=== PATIENT | female | born 1965 | race African-American/Black ===

== ENCOUNTER 2016-08-19 17:04 | Inpatient (IN) | payer OTHER ==
[2016-08-19] MEDS ORDERED: SODIUM CHLORIDE 0.9% 1,000 ML IV STA (18:19)
[2016-08-19] MEDS ORDERED: ACETAMINOPHEN IV (For NPO) 1,000 MG in EMPTY BAG 1 BAG IVPB STA (18:20)
[2016-08-19] MEDS ORDERED: SODIUM CHLORIDE 0.9% 1,000 ML IV ONE (18:35)
--- NOTE | 2016-08-19 18:35 | ED ---
General Adult HPI - General Source: patient, RN notes reviewed Mode of arrival: wheelchair Limitations: no limitations <Vicki Sultana - Last Filed: 08/19/16 18:24> <Pipe Dewey - Last Filed: 08/19/16 21:47> - General Chief complaint: Headache Stated complaint: SOB, headache Time Seen by Provider: 08/19/16 17:29 - History of Present Illness Initial comments: Patient is a 50-year-old female presents emergency room for evaluation of multiple complaints. Patient has a history of MS, COPD, fibromyalgia, arthritis. Patient states Thursday she's been experiencing headaches, nausea and chest pain. Patient states she first thought it was her sinuses show she's been taking Benadryl. Patient states symptoms not improving. Patient states he usually has headaches but this headache is much worse than usual. Patient states headache radiates down her neck. Patient states that she is experiencing ringing in ears. Patient also states pain experiencing dizziness every time she stands up too fast or bends forward. Patient denies any changes in vision or changes in hearing. Patient also states been having midsternal chest pressure. Patient states this started on Thursday as well. Patient states she's had a slight on and off cough for the past few days. Patient states is nonproductive. Patient also states she smokes about half pack per day. Patient also states she's been feeling weak all over. Patient states been having tingling in her lower legs. Patient states she had a fever yesterday. (Vicki Sultana) - Related Data Home Medications Medication Instructions Recorded Confirmed Albuterol Inhaler [Ventolin 2 puff INHALATION RT-Q6H PRN 02/20/14 08/19/16 Inhaler] Aspirin 81 mg PO DAILY 02/20/14 08/19/16 Cholecalciferol [Vitamin D3] 1,000 units PO DAILY 02/20/14 08/19/16 Fluticasone Propionate [Flonase] 2 spray EA NOSTRIL DAILY PRN 02/20/14 08/19/16 Hydrochlorothiazide 25 mg PO DAILY 02/20/14 08/19/16 LORazepam [Ativan] 1 mg PO TID PRN 02/20/14 08/19/16 Meclizine [Antivert] 25 mg PO TID PRN 02/20/14 08/19/16 Methocarbamol 500 mg PO TID PRN 02/20/14 08/19/16 Montelukast [Singulair] 10 mg PO HS 02/20/14 08/19/16 Multivit with Calcium,Iron,Min 1 tab PO DAILY 02/20/14 08/19/16 [Women's Daily Multivitamin] PARoxetine HCL [Paxil] 40 mg PO DAILY 02/20/14 08/19/16 Verapamil HCl 120 mg PO DAILY 02/20/14 08/19/16 oxyCODONE-APAP 10-325MG [Percocet 1 tab PO Q6HR PRN 02/20/14 08/19/16 10-325 mg] Beclomethasone Dipropionate [Qvar 2 puff INHALATION RT-BID 08/19/16 08/19/16 80 mcg] Butalb/APAP/Caff 50-325-40Mg 1 tab PO Q4H PRN 08/19/16 08/19/16 [Fioricet 50-325-40] Gabapentin [Neurontin] 1,200 mg PO TID 08/19/16 08/19/16 Ranitidine HCl [Zantac] 150 mg PO BID 08/19/16 08/19/16 Allergies Allergy/AdvReac Type Severity Reaction Status Date / Time penicillin G AdvReac Itching Verified 08/19/16 19:11 Review of Systems ROS Other: All systems not noted in ROS Statement are negative. <Vicki Sultana - Last Filed: 08/19/16 18:24> ROS Other: All systems not noted in ROS Statement are negative. <Pipe Dewey - Last Filed: 08/19/16 21:47> ROS Statement: Those systems with pertinent positive or pertinent negative responses have been documented in the HPI. Past Medical History Past Medical History: Asthma, Cancer, COPD, Fibromyalgia, GERD/Reflux, Hypertension, Osteoarthritis (OA), Syncope Additional Past Medical History / Comment(s): Rheumatic fever, heart murmur, osteoporosis, chronic bronchitis, MS History of Any Multi-Drug Resistant Organisms: None Reported Past Surgical History: Bladder Surgery, Hysterectomy Additional Past Surgical History / Comment(s): uterine cancer, radiation, Past Anesthesia/Blood Transfusion Reactions: No Reported Reaction Past Psychological History: Anxiety, Depression Smoking Status: Current every day smoker Past Alcohol Use History: None Reported Past Drug Use History: None Reported <Vicki Sultana - Last Filed: 08/19/16 18:24> General Exam Limitations: no limitations General appearance: alert, in no apparent distress Head exam: Present: atraumatic, normocephalic, normal inspection Eye exam: Present: normal appearance, PERRL, EOMI Pupils: Present: normal accommodation ENT exam: Present: normal exam, normal oropharynx, mucous membranes moist, TM's normal bilaterally, normal external ear exam Neck exam: Present: normal inspection, tenderness (Mid cervical spine), full ROM Respiratory exam: Present: wheezes. Absent: respiratory distress Cardiovascular Exam: Present: normal rhythm, tachycardia, normal heart sounds Extremities exam: Present: normal inspection Back exam: Present: normal inspection Neurological exam: Present: alert, oriented X3, CN II-XII intact Expanded Patient oriented to: Present: person, place, time Speech: Present: fluid speech Cranial nerves: EOM's Intact: Normal, Facial Sensation: Normal Sensory exam: Upper Extremity Light Touch: Normal, Lower Extremity Light Touch: Normal Motor strength exam: RUE: 5, LUE: 5, RLE: 5, LLE: 5 Psychiatric exam: Present: normal affect, normal mood Skin exam: Present: warm, dry, intact, normal color. Absent: rash <Vicki Sultana - Last Filed: 08/19/16 18:24> <Pipe Dewey - Last Filed: 08/19/16 21:47> - General Exam Comments Initial Comments: Sitting in exam room, no acute distress. (Vicki Sultana) Medical Decision Making <Vicki Sultana - Last Filed: 08/19/16 18:24> - Lab Data Result diagrams: 08/19/16 18:54 08/19/16 18:54 <Pipe Dewey - Last Filed: 08/19/16 21:47> - Medical Decision Making Medical decision-making. The patient's history of nausea vomiting for 3 days headache chest pain and shortness of breath.. The patient's labs show elevated d-dimer 2.83. White count is only 11.6 hemoglobin 15 hematocrit of 46. The patient's BUN is 11 creatinine 0.57 and GFR greater than 60. Her AST is elevated at 498 ALT elevated at 597. Troponin also mildly elevated at 0.09. Amylase lipase normal limits influenza AB-. The case discussed with Dr. richmond he wants the patient to have an ultrasound of the gallbladder and acute hepatitis panel run and admit the patient. (Pipe Dewey) - Lab Data Lab Results 08/19/16 08/19/16 08/19/16 Range/Units 18:40 18:54 18:54 WBC 11.6 H (3.8-10.6) k/uL RBC 4.82 (3.80-5.40) m/uL Hgb 15.1 (11.4-16.0) gm/dL Hct 46.8 H (34.0-46.0) % MCV 97.1 (80.0-100.0) fL MCH 31.4 (25.0-35.0) pg MCHC 32.3 (31.0-37.0) g/dL RDW 13.7 (11.5-15.5) % Plt Count 236 (150-450) k/uL Neutrophils % 68 % Lymphocytes % 23 % Monocytes % 5 % Eosinophils % 2 % Basophils % 1 % Neutrophils # 7.9 H (1.3-7.7) k/uL Lymphocytes # 2.7 (1.0-4.8) k/uL Monocytes # 0.6 (0-1.0) k/uL Eosinophils # 0.2 (0-0.7) k/uL Basophils # 0.1 (0-0.2) k/uL Hypochromasia Slight PT 12.2 H (9.0-12.0) sec INR 1.2 (<1.1) APTT 21.8 L (22.0-30.0) sec D-Dimer 2.83 H (<0.60) mg/L FEU Sodium (137-145) mmol/L Potassium (3.5-5.1) mmol/L Chloride (98-107) mmol/L Carbon Dioxide (22-30) mmol/L Anion Gap mmol/L BUN (7-17) mg/dL Creatinine (0.52-1.04) mg/dL Est GFR (MDRD) Af Amer (>60 ml/min/1.73 sqM) Est GFR (MDRD) Non-Af (>60 ml/min/1.73 sqM) Glucose (74-99) mg/dL Plasma Lactic Acid Adalid (0.7-2.0) mmol/L Calcium (8.4-10.2) mg/dL Magnesium (1.6-2.3) mg/dL Total Bilirubin (0.2-1.3) mg/dL AST (14-36) U/L ALT (9-52) U/L Alkaline Phosphatase (38-126) U/L Total Creatine Kinase (30-135) U/L CK-MB (CK-2) (0.0-2.4) ng/mL CK-MB (CK-2) Rel Index Troponin I (0.000-0.034) ng/mL Total Protein (6.3-8.2) g/dL Albumin (3.5-5.0) g/dL Amylase (30-110) U/L Lipase (23-300) U/L Influenza Type A RNA Not Detected (Not Detectd) Influenza Type B (PCR) Not Detected (Not Detectd) 08/19/16 08/19/16 08/19/16 Range/Units 18:54 18:54 18:54 WBC (3.8-10.6) k/uL RBC (3.80-5.40) m/uL Hgb (11.4-16.0) gm/dL Hct (34.0-46.0) % MCV (80.0-100.0) fL MCH (25.0-35.0) pg MCHC (31.0-37.0) g/dL RDW (11.5-15.5) % Plt Count (150-450) k/uL Neutrophils % % Lymphocytes % % Monocytes % % Eosinophils % % Basophils % % Neutrophils # (1.3-7.7) k/uL Lymphocytes # (1.0-4.8) k/uL Monocytes # (0-1.0) k/uL Eosinophils # (0-0.7) k/uL Basophils # (0-0.2) k/uL Hypochromasia PT (9.0-12.0) sec INR (<1.1) APTT (22.0-30.0) sec D-Dimer (<0.60) mg/L FEU Sodium 138 (137-145) mmol/L Potassium 3.3 L (3.5-5.1) mmol/L Chloride 89 L (98-107) mmol/L Carbon Dioxide 38 H (22-30) mmol/L Anion Gap 11 mmol/L BUN 11 (7-17) mg/dL Creatinine 0.57 (0.52-1.04) mg/dL Est GFR (MDRD) Af Amer >60 (>60 ml/min/1.73 sqM) Est GFR (MDRD) Non-Af >60 (>60 ml/min/1.73 sqM) Glucose 108 H (74-99) mg/dL Plasma Lactic Acid Adalid 1.4 (0.7-2.0) mmol/L Calcium 9.3 (8.4-10.2) mg/dL Magnesium 1.8 (1.6-2.3) mg/dL Total Bilirubin 1.0 (0.2-1.3) mg/dL AST 498 H (14-36) U/L ALT 593 H (9-52) U/L Alkaline Phosphatase 78 (38-126) U/L Total Creatine Kinase 91 (30-135) U/L CK-MB (CK-2) 0.4 (0.0-2.4) ng/mL CK-MB (CK-2) Rel Index 0.4 Troponin I 0.090 H* (0.000-0.034) ng/mL Total Protein 7.0 (6.3-8.2) g/dL Albumin 4.0 (3.5-5.0) g/dL Amylase 63 (30-110) U/L Lipase 84 (23-300) U/L Influenza Type A RNA (Not Detectd) Influenza Type B (PCR) (Not Detectd) Disposition <Vicki Sultana - Last Filed: 08/19/16 18:24> <Pipe Dewey - Last Filed: 08/19/16 21:47> Clinical Impression: Elevated troponin I level, Nausea and vomiting Disposition: ADMITTED IP TO THIS HOSP Condition: Stable
[2016-08-19 19:15] LABS: Basophils # (A) 0.1 k/uL (0-0.2); Basophils % (A) 1 %; CH 30.3; CHCM 31.3; Eosinophils # (A) 0.2 k/uL (0-0.7); Eosinophils % (A) 2 %; HCT 46.8 % (34.0-46.0); HDW 2.38; HGB 15.1 gm/dL (11.4-16.0); Hypochromasia Slight; Luc # (Auto) 0.19; Luc % (Auto) 2; Lymphocytes # (A) 2.7 k/uL (1.0-4.8); Lymphocytes % (A) 23 %; MCH 31.4 pg (25.0-35.0); MCHC 32.3 g/dL (31.0-37.0); MCV 97.1 fL (80.0-100.0); Mean Platelet Volume 8.2; Monocytes # (A) 0.6 k/uL (0-1.0); Monocytes % (A) 5 %; Neutrophils # (A) 7.9 k/uL (1.3-7.7); Neutrophils % (A) 68 %; RBC 4.82 m/uL (3.80-5.40); RDW 13.7 % (11.5-15.5); WBC 11.6 k/uL (3.8-10.6)
--- NOTE | 2016-08-19 19:19 | XR ---
EXAMINATION TYPE: XR chest 2V DATE OF EXAM: 08/19/2016 7:12 PM COMPARISON: 08/14/2013 HISTORY: Chest pain TECHNIQUE: Frontal and lateral views of the chest are obtained. FINDINGS: The heart is enlarged. There is mild pulmonary congestion. There are no hilar masses. Cost ophrenic angles are clear. Bony thorax is intact. IMPRESSION: Cardiomegaly with mild pulmonary congestion. Heart appears increased compared to old exa m. No pulmonary consolidation. There is no overt heart failure.
[2016-08-19 19:23] LABS: ALT 593 U/L (9-52); AST 498 U/L (14-36); Alkaline Phosphatase 78 U/L (38-126); Amylase 63 U/L (30-110); Anion Gap 11 mmol/L; Blood Urea Nitrogen 11 mg/dL (7-17); Calcium 9.3 mg/dL (8.4-10.2); Carbon Dioxide 38 mmol/L (22-30); Chloride 89 mmol/L (98-107); Glucose 108 mg/dL (74-99); Magnesium 1.8 mg/dL (1.6-2.3); Non-African American GFR(MDRD) >60 (>60 ml/min/1.73 sqM); Sodium 138 mmol/L (137-145)
[2016-08-19 19:25] LABS: Potassium 3.3 mmol/L (3.5-5.1)
[2016-08-19 19:32] LABS: INR 1.2 (<1.1); Partial Thromboplastin Time 21.8 sec (22.0-30.0); Prothrombin Time 12.2 sec (9.0-12.0)
[2016-08-19] MEDS ORDERED: BUTALB/APAP/CAFF 50-325-40MG TAB PO STA (19:38)
[2016-08-19 19:44] LABS: Creatine Kinase MB 0.4 ng/mL (0.0-2.4)
[2016-08-19] MEDS ORDERED: RX INFO: IV CONTRAST WAS GIVEN 1 EACH MISC MISCELLANE PRN (19:49)
[2016-08-19 19:50] LABS: Troponin I 0.09 ng/mL (0.000-0.034)
--- NOTE | 2016-08-19 20:31 | CT ---
EXAMINATION TYPE: CT brain kristina wo con DATE OF EXAM: 08/19/2016 8:25 PM COMPARISON: 06/01/2012 HISTORY: Headache with multiple falls in the past week CT DLP: 1848 mGycm Automated exposure control for dose reduction was used. TECHNIQUE: CT scan of the head and cervical spine are performed without contrast. FINDINGS: The ventricles and sulci appear normal. There is no mass effect nor midline shift. There is no sign of intracranial hemorrhage. The calvarium is intact. The cervical vertebra have fairly normal spacing and alignment. Skull base is intact. Posterior eleme nts are intact. Facet joints appear normal. There is mild anterior spurring at C5-6. There is no sign of a fracture. IMPRESSION: Negative CT scan of the brain. Mild spondylosis at C5-6. No fracture. Brain appears stable compared to old CT scan.
--- NOTE | 2016-08-19 20:37 | CT ---
EXAMINATION TYPE: CT angio chest DATE OF EXAM: 08/19/2016 8:26 PM COMPARISON: NONE HISTORY: Shortness of breath and elevated D-Dimer CT DLP: 658 mGycm Automated exposure control for dose reduction was used. CONTRAST: CTA scan of the thorax is performed with IV Contrast, patient injected with 100 mL of Omnipaque 350, pulmonary embolism protocol. There are 3-D post processed images.. FINDINGS: The lungs are clear of consolidation. There is mild subsegmental atelectasis at the right lung base. There is a 2 cm cyst in the left lobe of the liver. Heart is enlarged. There are no hilar masses. I s ee no filling defects in the pulmonary arteries. There is no pericardial effusion. There is no pleura l effusion. There is no mediastinal adenopathy. I see no bony destructive process. Bony thorax is int act. There is no sign of aortic aneurysm or dissection. IMPRESSION: NO EVIDENCE OF PULMONARY EMBOLISM. CARDIOMEGALY. MINIMAL SUBSEGMENTAL ATELECTASIS AT THE RIGHT LUNG B ASE.
[2016-08-19] MEDS ORDERED: IBUPROFEN 400 MG TAB PO PRN (21:47)
[2016-08-19] MEDS ORDERED: NALOXONE 0.4 MG/ML 1 ML VIAL IV PRN (21:47)
[2016-08-19] MEDS ORDERED: METHOCARBAMOL 500 MG TAB PO PRN (21:50)
[2016-08-19] MEDS ORDERED: MECLIZINE 25 MG TAB PO PRN (21:50)
[2016-08-19] MEDS ORDERED: FLUTICASONE 50MCG/SPRAY NASAL 16GM EA NOSTRIL PRN (21:50)
[2016-08-19 22:32] LABS: Hepatitis B Surface Ag Index 0.05
[2016-08-19 22:38] LABS: Hepatitis B Core IgM Index 0.03
--- NOTE | 2016-08-19 22:43 | US ---
EXAMINATION TYPE: US abdomen limited DATE OF EXAM: 08/19/2016 10:24 PM COMPARISON: NONE CLINICAL HISTORY: Elevated liver enzymes. EXAM MEASUREMENTS: Liver Length: 18.3 cm Gallbladder Wall: 0.2 cm CBD: 0.5 cm Right Kidney: 11.1 x 4.5 x 3.8 cm Pancreas: Obscured by bowel gas Liver: Difficult/limited visualization due to overlying bowel gas. Visualized portions appear hetero geneous. The liver in enlarged. There is a cystic area visualized in the left lobe measuring 1.7 x 1. 6 x 1.9 cm Gallbladder: wnl Evidence for sonographic Griffith's sign: No CBD: wnl as visualized, distal portion obscured by bowel gas Right Kidney: No hydronephrosis or masses seen IMPRESSION: No gallstones or dilated ducts. Small cyst in the left lobe of the liver.
[2016-08-19 22:50] LABS: Hepatitis C Virus IgG Index 0.02
[2016-08-19 22:52] LABS: Hepatitis C Virus IgG Ab Negative (Negative)
[2016-08-20] MEDS: SODIUM CHLORIDE 0.9% 1,000 ML IV SCH ×3 (00:51→21:00)
[2016-08-20] MEDS: GABAPENTIN 400 MG CAP PO SCH ×4 (00:51→20:59)
[2016-08-20] MEDS: LORazepam 1 MG TAB PO PRN ×2 (01:25→11:45)
[2016-08-20 02:24] LABS: Creatine Kinase MB 0.4 ng/mL (0.0-2.4)
[2016-08-20 02:28] LABS: Troponin I 0.09 ng/mL (0.000-0.034)
[2016-08-20] MEDS: ALBUTEROL NEBULIZED 2.5 MG/3 ML INHALATION PRN (07:25)
[2016-08-20] MEDS: BUDESONIDE 1 MG/2 ML NEBU INHALATION SCH ×2 (07:25→20:52)
[2016-08-20] MEDS ORDERED: BECLOMETHASONE DIP 80 MCG/PUFF INHALER INHALATION SCH (08:00)
[2016-08-20] MEDS: HYDROCHLOROTHIAZIDE 25 MG TAB PO SCH (08:21)
[2016-08-20] MEDS: ASPIRIN 81 MG CHEW PO SCH (08:21)
[2016-08-20] MEDS: PANTOPRAZOLE 40 MG/10 ML VIAL IV SCH (08:21)
[2016-08-20] MEDS: VERAPAMIL SR 120 MG TABLET.ER PO SCH (08:21)
[2016-08-20] MEDS: PARoxetine 20 MG TAB PO SCH (08:21)
[2016-08-20 08:29] LABS: Creatine Kinase MB 0.4 ng/mL (0.0-2.4)
[2016-08-20 08:32] LABS: Troponin I 0.092 ng/mL (0.000-0.034)
[2016-08-20] MEDS: oxyCODONE-APAP 10-325MG 1 EACH TAB PO PRN (08:52)
[2016-08-20 08:55] LABS: ALT 530 U/L (9-52); AST 301 U/L (14-36); Alkaline Phosphatase 84 U/L (38-126); Anion Gap 11 mmol/L; Blood Urea Nitrogen 8 mg/dL (7-17); Calcium 8.7 mg/dL (8.4-10.2); Carbon Dioxide 36 mmol/L (22-30); Chloride 96 mmol/L (98-107); Glucose 104 mg/dL (74-99); Non-African American GFR(MDRD) >60 (>60 ml/min/1.73 sqM); Sodium 143 mmol/L (137-145); Total Protein 7.2 g/dL (6.3-8.2)
[2016-08-20 08:57] LABS: Potassium 3.3 mmol/L (3.5-5.1)
[2016-08-20] MEDS ORDERED: POTASSIUM CHLORIDE ER 20 MEQ TAB.ER PO STA (11:34)
[2016-08-20] MEDS: BUTALB/APAP/CAFF 50-325-40MG TAB PO PRN ×2 (11:46→21:51)
--- NOTE | 2016-08-20 13:08 | P.HPIM ---
History of Present Illness H&P Date: 08/20/16 Chief Complaint: Chest pain, headache, neck pain This is a 50-year-old -[place] female patient of Dr. Tabares with past medical history of asthma, uterine cancer status post hysterectomy and radiation , fibromyalgia, COPD, gastroesophageal reflux disease, hypertension, osteoarthritis and osteoporosis, MS currently on Copaxone and under the care of Dr. Tyler Chi for which she has an appointment on . Patient states that she had chest pain, headache dizziness and neck pain and has had 2 recent falls at home 1-1/2 days apart. Her balance has been off and she is unable to get up. Headache goes around front and around to the back of her head. She does have history of vertigo as well. She denies history of diabetes. She came into [facility] emergency center and underwent chest x-ray that showed cardiomegaly with mild pulmonary congestion. No consolidation. No overt heart failure. D-dimer was elevated at 2.83 and CTA of the chest showed no evidence of pulmonary embolism. Cardiomegaly. Minimal subsegmental atelectasis at the right lung base. CAT scan of the brain and C-spine showed a negative CAT scan of the brain and mild spondylosis of C5-6. No fracture. Liver enzymes were elevated with AST of 498 and ALT of 593. Acute hepatitis panel was negative. Abdominal ultrasound showed no gallstones or dilated ducts. Small cyst in the left lobe of the liver. Influenza testing a and B were negative. She had mild elevation of her troponins which were 0.090, 0.090 and 0.092. Patient was to be admitted to the selective care unit and consult with cardiology. We have added and consult with her neurologist due to concern for falls and worsening MS as well as headaches. Review of Systems All systems: negative Constitutional: Reports weakness, Denies chills, Denies fever Eyes: denies blurred vision, denies pain Ears: bilateral: tinnitus Ears, nose, mouth and throat: Reports headache, Reports vertigo, Denies sore throat Cardiovascular: Reports chest pain, Denies leg edema, Denies shortness of breath Respiratory: Denies cough, Denies cough with sputum, Denies dyspnea Gastrointestinal: Denies abdominal pain, Denies diarrhea, Denies nausea, Denies vomiting Genitourinary: Denies dysuria, Denies hematuria Musculoskeletal: Reports frequent falls, Reports gait dysfunction, Reports muscle weakness, Denies myalgias Integumentary: Denies pruritus, Denies rash Neurological: Denies numbness, Denies weakness Psychiatric: Denies anxiety, Denies depression Endocrine: Denies fatigue, Denies weight change Past Medical History Past Medical History: Asthma, Cancer, COPD, Fibromyalgia, GERD/Reflux, Hypertension, Osteoarthritis (OA), Syncope Additional Past Medical History / Comment(s): Rheumatic fever, heart murmur, osteoporosis, chronic bronchitis, MS History of Any Multi-Drug Resistant Organisms: None Reported Past Surgical History: Bladder Surgery, Hysterectomy Additional Past Surgical History / Comment(s): uterine cancer, radiation, Past Anesthesia/Blood Transfusion Reactions: No Reported Reaction Past Psychological History: Anxiety, Depression Smoking Status: Current every day smoker Past Alcohol Use History: None Reported Additional Past Alcohol Use History / Comment(s): Patient is a smoker of one half pack per day for 20 years. She denies any medical marijuana, marijuana, street drug or alcohol use. She lives alone in a girlfriend helps her. She is . Past Drug Use History: None Reported - Past Family History Mother Family Medical History: CVA/TIA, Myocardial Infarction (OR) Additional Family Medical History / Comment(s): Mother is alive at age 72 with history of brain aneurysm, 3 strokes and 2 myocardial infarctions. Father Additional Family Medical History / Comment(s): Father at age 72 from a cardiac arrest thought to be due to a myocardial infarction. Sister(s) Additional Family Medical History / Comment(s): Patient has 2 sisters with no major medical problems. Patient does not have any brothers. Patient has 2 children ages 33 and 26 with no major medical problems. Medications and Allergies Home Medications Medication Instructions Recorded Confirmed Type Albuterol Inhaler [Ventolin 2 puff INHALATION RT-Q6H PRN 02/20/14 08/19/16 History Inhaler] Aspirin 81 mg PO DAILY 02/20/14 08/19/16 History Cholecalciferol [Vitamin D3] 1,000 units PO DAILY 02/20/14 08/19/16 History Fluticasone Propionate [Flonase] 2 spray EA NOSTRIL DAILY PRN 02/20/14 08/19/16 History Hydrochlorothiazide 25 mg PO DAILY 02/20/14 08/19/16 History LORazepam [Ativan] 1 mg PO TID PRN 02/20/14 08/19/16 History Meclizine [Antivert] 25 mg PO TID PRN 02/20/14 08/19/16 History Methocarbamol 500 mg PO TID PRN 02/20/14 08/19/16 History Montelukast [Singulair] 10 mg PO HS 02/20/14 08/19/16 History Multivit with Calcium,Iron,Min 1 tab PO DAILY 02/20/14 08/19/16 History [Women's Daily Multivitamin] PARoxetine HCL [Paxil] 40 mg PO DAILY 02/20/14 08/19/16 History Verapamil HCl 120 mg PO DAILY 02/20/14 08/19/16 History oxyCODONE-APAP 10-325MG [Percocet 1 tab PO Q6HR PRN 02/20/14 08/19/16 History 10-325 mg] Beclomethasone Dipropionate [Qvar 2 puff INHALATION RT-BID 08/19/16 08/19/16 History 80 mcg] Butalb/APAP/Caff 50-325-40Mg 1 tab PO Q4H PRN 08/19/16 08/19/16 History [Fioricet 50-325-40] Gabapentin [Neurontin] 1,200 mg PO TID 08/19/16 08/19/16 History Ranitidine HCl [Zantac] 150 mg PO BID 08/19/16 08/19/16 History Glatiramer Acetate [Copaxone] 20 mg SQ DAILY 08/20/16 08/20/16 History Allergies Allergy/AdvReac Type Severity Reaction Status Date / Time penicillin G AdvReac Itching Verified 08/19/16 19:11 Physical Exam Vitals: Vital Signs Temp Pulse Pulse Resp BP BP Pulse Ox 08/20/16 12:00 90 08/20/16 11:50 98.4 F 80 16 108/58 98 08/20/16 08:00 100.1 F H 109 H 18 128/65 95 08/20/16 07:42 69 08/20/16 07:26 74 08/20/16 05:31 98.1 F 77 18 121/87 98 08/20/16 03:17 98.1 F 94 18 114/69 100 08/20/16 02:49 97.1 F L 80 18 112/72 94 L 08/20/16 00:33 98.1 F 76 18 111/75 96 08/19/16 22:35 98.1 F 74 76 18 114/70 110/76 96 Intake and Output 08/19/16 08/20/16 08/20/16 22:59 06:59 14:59 Intake Total 1000 237 Balance 1000 237 Intake: IV 1000 Sodium Chloride 0.9% 1, 1000 000 ml @ 999 mls/hr IV . Q1H1M ONE Rx#:[id number] Oral 237 Other: Weight 99.79 kg Gen: This is a 50-year-old -[place] female. She is found in the ER on a stretcher and appears to be in no acute distress. HEENT: Head is atraumatic, normocephalic. Pupils equal, round. Sclerae is anicteric. NECK: Supple. No JVD. No lymphadenopathy. No thyromegaly. LUNGS: Scattered wheezes. No intercostal retractions. HEART: Regular rate and rhythm. No murmur. ABDOMEN: Soft. Bowel sounds are present. No masses. No tenderness. EXTREMITIES: No pedal edema. No calf tenderness. NEUROLOGICAL: Patient is awake, alert and oriented x3. Cranial nerves 2 through 12 are grossly intact. Results CBC & Chem 7: 08/19/16 18:54 08/20/16 06:52 Labs: Abnormal Lab Results - Last 24 Hours (Table) 08/20/16 08/20/16 08/20/16 Range/Units 01:25 06:52 06:52 Potassium 3.3 L (3.5-5.1) mmol/L Chloride 96 L (98-107) mmol/L Carbon Dioxide 36 H (22-30) mmol/L Glucose 104 H (74-99) mg/dL AST 301 H (14-36) U/L ALT 530 H (9-52) U/L Troponin I 0.090 H* 0.092 H* (0.000-0.034) ng/mL Thrombosis Risk Factor Assmnt - DVT/VTE Prophylaxis DVT/VTE Prophylaxis: Pharmacologic Prophylaxis ordered - Choose All That Apply Any of the Below Risk Factors Present?: Yes Each Factor Represents 1 point: Age 41-60 years Other Risk Factors: No Thrombosis Risk Factor Assessment Total Risk Factor Score: 1 Thrombosis Risk Factor Assessment Level: Low Risk Assessment and Plan Plan: 1. Chest pain with mild elevation of troponins. Cardiology consult requested. Patient may require stress test. 2. Headache, neck pain, dizziness and tinnitus with frequent falls and difficulty with balance. Consult with Dr. Chi. Possibly related to worsening MS. PT and OT evaluations requested. 3. COPD. Continue albuterol nebulizer treatments every 6 hours as needed, Pulmicort 1 mg twice daily. 4. Mild persistent asthma. Continue albuterol nebulizer treatment every 6 hours, Pulmicort 1 mg twice daily, Flonase 2 sprays daily as needed, Singulair 10 mg at bedtime. 5. Hypertension. Continue verapamil 120 mg daily, hydrochlorothiazide 25 mg daily. 6. Multiple sclerosis. Patient is normally on Copaxone 20 mg subcu daily. Continue methocarbamol, Neurontin. Consult with Dr. Chi. 7. Gastroesophageal reflux disease. Patient is normally on Zantac. 8. Recurrent depression and generalized anxiety. Continue Paxil and Ativan. 9. Morbid obesity with BMI of 39. 10. DVT prophylaxis. Heparin subcu. 11. Gastrointestinal prophylaxis. Protonix. Patient will be admitted to the hospital for a minimum of 2 night stay. Discharge plan: PT and OT ordered. Impression and plan of care have been directed as dictated by the signing physician. Elaine Nguyen nurse practitioner acting as scribe for signing physician. Time with Patient: Greater than 30
[2016-08-20] MEDS: NICOTINE 14MG/24HR PATCH TRANSDERM SCH (17:33)
[2016-08-20] MEDS: CHOLECALCIFEROL 1,000 UNIT TAB PO SCH (17:33)
[2016-08-20] MEDS: MULTIVITAMINS, THERA 1 EACH TAB PO SCH (17:33)
[2016-08-20] MEDS: HEPARIN SODIUM,PORCINE 5,000 UNIT/ML 1 ML VIAL SQ SCH ×2 (17:37→22:56)
[2016-08-20] MEDS: MONTELUKAST 10 MG TAB PO SCH (20:59)
[2016-08-21 06:37] LABS: CH 29.4; HCT 44.1 % (34.0-46.0); HDW 2.27; HGB 13.8 gm/dL (11.4-16.0); Hypochromasia Moderate; MCH 30.7 pg (25.0-35.0); MCHC 31.2 g/dL (31.0-37.0); MCV 98.2 fL (80.0-100.0); Mean Platelet Volume 7.8; RBC 4.49 m/uL (3.80-5.40); WBC 8.9 k/uL (3.8-10.6)
[2016-08-21 07:03] LABS: ALT 329 U/L (9-52); AST 103 U/L (14-36); Alkaline Phosphatase 67 U/L (38-126); Anion Gap 8 mmol/L; Blood Urea Nitrogen 8 mg/dL (7-17); Calcium 9.1 mg/dL (8.4-10.2); Carbon Dioxide 30 mmol/L (22-30); Chloride 104 mmol/L (98-107); Glucose 97 mg/dL (74-99); Non-African American GFR(MDRD) >60 (>60 ml/min/1.73 sqM); Sodium 142 mmol/L (137-145); Total Bilirubin 0.9 mg/dL (0.2-1.3); Total Protein 5.7 g/dL (6.3-8.2)
[2016-08-21] MEDS: BUDESONIDE 1 MG/2 ML NEBU INHALATION SCH ×2 (08:15→19:59)
--- NOTE | 2016-08-21 12:09 | ECHOF ---
Referral Reason:abn trop MEASUREMENTS -------- HEIGHT: 160.0 cm WEIGHT: 103.0 kg BP: 113/68 RVIDd: 3.1 cm (< 3.3) IVSd: 1.0 cm (0.6 - 1.1) LVIDd: 4.2 cm (3.9 - 5.3) LVPWd: 1.0 cm (0.6 - 1.1) IVSs: 1.4 cm LVIDs: 3.3 cm LVPWs: 1.5 cm LA Diam: 3.6 cm (2.7 - 3.8) LAESV Index (A-L): 27.11 ml/m Ao Diam: 3.3 cm (2.0 - 3.7) AV Cusp: 1.5 cm (1.5 - 2.6) MV EXCURSION: 14.230 mm (> 18.000) MV EF SLOPE: 91 mm/s (70 - 150) EPSS: 0.8 cm MV E Vargas: 1.01 m/s MV DecT: 179 ms MV A Vargas: 1.01 m/s MV E/A Ratio: 1.00 RAP: 5.00 mmHg RVSP: 27.38 mmHg FINDINGS -------- Sinus rhythm. This was a technically difficult study with suboptimal views. The left ventricular size is normal. Left ventricular wall thickness is normal. Overall left ventricular systolic function is normal with, an EF between 55 - 60 %. The right ventricle is normal in size and function. Normal LA size by volume 22+/-6 ml/m2. The right atrium is normal in size. 1.5mg of Definity was utilized for enhancement of images The aortic valve was not well visualized. Mild mitral annular calcification present. There is trace to mild mitral regurgitation. Mild tricuspid regurgitation present. Right ventricular systolic pressure is normal at < 35 mmHg. The pulmonic valve was not well visualized. The aortic root size is normal. There is a trivial pericardial effusion present. CONCLUSIONS -------- 1. Sinus rhythm. 2. The aortic valve was not well visualized. 3. Mild mitral annular calcification present. 4. There is trace to mild mitral regurgitation. 5. Mild tricuspid regurgitation present. 6. Right ventricular systolic pressure is normal at < 35 mmHg. 7. The pulmonic valve was not well visualized. 8. The aortic root size is normal. 9. There is a trivial pericardial effusion present. 10. This was a technically difficult study with suboptimal views. 11. The left ventricular size is normal. 12. Left ventricular wall thickness is normal. 13. Overall left ventricular systolic function is normal with, an EF between 55 - 60 %. 14. The right ventricle is normal in size and function. 15. Normal LA size by volume 22+/-6 ml/m2. 16. The right atrium is normal in size. 17. 1.5mg of Definity was utilized for enhancement of images GARBAGE PICK UP WORKER: Lizeth Romo RDCS
--- NOTE | 2016-08-21 12:16 | P.CRDCN ---
History of Present Illness Consult date: 08/21/16 Requesting physician: Zan Minor Consult reason: chest pain Chief complaint: Chest pain and shortness of breath History of present illness: This is a 50-year-old -[place] female with known history of asthma, nicotine dependence, COPD, hypertension, uterine cancer with prior radiation, who presents to the hospital with symptoms of left-sided chest pain with associated headache and neck pain. Patient describes the pain as an ache, but states mostly that it is sharp in nature, worsening with deep breathing. Patient also complains about pain that shoots up the back of her head. She also states that recently she's had 2 falls at home, she states that she becomes extremely unsteady, and when she falls she is unable to get up. She has had some mild exertional shortness of breath recently. Patient also has a diagnosis of multiple sclerosis. D-dimer was elevated on admission, CT of the chest did not reveal any evidence of a pulmonary embolism, there was minimal subsegmental atelectasis at the right lung base. CT of the brain and C-spine showed a negative CAT scan of the brain with mild spondylosis at C5 to C6. Liver enzymes noted to be elevated on admission, AST 498, ALT 593. Acute hepatitis panel was negative and abdominal ultrasound showed no gallstones or dilated duct. Small cyst was noted in the liver. Influenza A and B screening were negative. Troponins 0.09, 0.09, 0.09. Potassium 4.0, AST on admission 498 , 103 this morning, ALT 593 on admission, 329 this morning. CBC this morning normal. At the time of my examination this morning, patient is currently chest pain-free. Past Medical History Past Medical History: Asthma, Cancer, COPD, Fibromyalgia, GERD/Reflux, Hypertension, Osteoarthritis (OA), Syncope Additional Past Medical History / Comment(s): Rheumatic fever, heart murmur, osteoporosis, chronic bronchitis, MS History of Any Multi-Drug Resistant Organisms: None Reported Past Surgical History: Bladder Surgery, Hysterectomy Additional Past Surgical History / Comment(s): uterine cancer, radiation, Past Anesthesia/Blood Transfusion Reactions: No Reported Reaction Past Psychological History: Anxiety, Depression Smoking Status: Current every day smoker Past Alcohol Use History: None Reported Additional Past Alcohol Use History / Comment(s): Patient is a smoker of one half pack per day for 20 years. She denies any medical marijuana, marijuana, street drug or alcohol use. She lives alone in a girlfriend helps her. She is . Past Drug Use History: None Reported - Past Family History Mother Family Medical History: CVA/TIA, Myocardial Infarction (PR) Additional Family Medical History / Comment(s): Mother is alive at age 72 with history of brain aneurysm, 3 strokes and 2 myocardial infarctions. Father Additional Family Medical History / Comment(s): Father at age 72 from a cardiac arrest thought to be due to a myocardial infarction. Sister(s) Additional Family Medical History / Comment(s): Patient has 2 sisters with no major medical problems. Patient does not have any brothers. Patient has 2 children ages 33 and 26 with no major medical problems. Medications and Allergies Home Medications Medication Instructions Recorded Confirmed Type Albuterol Inhaler [Ventolin 2 puff INHALATION RT-Q6H PRN 02/20/14 08/19/16 History Inhaler] Aspirin 81 mg PO DAILY 02/20/14 08/19/16 History Cholecalciferol [Vitamin D3] 1,000 units PO DAILY 02/20/14 08/19/16 History Fluticasone Propionate [Flonase] 2 spray EA NOSTRIL DAILY PRN 02/20/14 08/19/16 History Hydrochlorothiazide 25 mg PO DAILY 02/20/14 08/19/16 History LORazepam [Ativan] 1 mg PO TID PRN 02/20/14 08/19/16 History Meclizine [Antivert] 25 mg PO TID PRN 02/20/14 08/19/16 History Methocarbamol 500 mg PO TID PRN 02/20/14 08/19/16 History Montelukast [Singulair] 10 mg PO HS 02/20/14 08/19/16 History Multivit with Calcium,Iron,Min 1 tab PO DAILY 02/20/14 08/19/16 History [Women's Daily Multivitamin] PARoxetine HCL [Paxil] 40 mg PO DAILY 02/20/14 08/19/16 History Verapamil HCl 120 mg PO DAILY 02/20/14 08/19/16 History oxyCODONE-APAP 10-325MG [Percocet 1 tab PO Q6HR PRN 02/20/14 08/19/16 History 10-325 mg] Beclomethasone Dipropionate [Qvar 2 puff INHALATION RT-BID 08/19/16 08/19/16 History 80 mcg] Butalb/APAP/Caff 50-325-40Mg 1 tab PO Q4H PRN 08/19/16 08/19/16 History [Fioricet 50-325-40] Gabapentin [Neurontin] 1,200 mg PO TID 08/19/16 08/19/16 History Ranitidine HCl [Zantac] 150 mg PO BID 08/19/16 08/19/16 History Glatiramer Acetate [Copaxone] 20 mg SQ DAILY 08/20/16 08/20/16 History Allergies Allergy/AdvReac Type Severity Reaction Status Date / Time penicillin G AdvReac Itching Verified 08/19/16 19:11 Physical Exam Vitals: Vital Signs Temp Pulse Pulse Resp BP BP Pulse Ox 08/21/16 08:45 99.8 F H 60 18 145/73 98 08/21/16 04:00 98.4 F 66 18 113/68 95 08/21/16 00:00 98.4 F 74 18 80/45 94 L 08/20/16 21:05 80 08/20/16 20:52 80 08/20/16 20:00 98.5 F 82 20 113/60 94 L 08/20/16 16:05 98.4 F 69 16 121/87 98 08/20/16 16:00 80 16 116/70 08/20/16 12:00 90 Intake and Output 08/20/16 08/21/16 08/21/16 22:59 06:59 14:59 Intake Total 478 640 Balance 478 640 Intake: Intake, IV Titration 160 640 Amount Sodium Chloride 0.9% 1, 160 640 000 ml @ 80 mls/hr IV . [id number] [facility] Rx#:[id number] Oral 318 Other: Voiding Method Toilet Toilet # Voids 1 1 Weight 103.1 kg PHYSICAL EXAMINATION: HEENT: Head is atraumatic, normocephalic. Pupils equal, round. Neck is supple. There is no elevated jugular venous pressure. HEART EXAMINATION: Heart S1, S2 normal. No murmur or gallop heard. CHEST EXAMINATION: Reveal fine expiratory wheezes. ABDOMEN: Soft, nontender. Bowel sounds are heard. No organomegaly noted. EXTREMITIES: 2+ peripheral pulses with no evidence of peripheral edema and no calf tenderness noted. NEUROLOGIC patient is awake, alert and oriented -3. . Results 08/21/16 06:07 08/21/16 06:07 Cardiac Enzymes 08/21/16 Range/Units 06:07 AST 103 H (14-36) U/L CBC 08/21/16 Range/Units 06:07 WBC 8.9 (3.8-10.6) k/uL RBC 4.49 (3.80-5.40) m/uL Hgb 13.8 (11.4-16.0) gm/dL Hct 44.1 (34.0-46.0) % Plt Count 245 (150-450) k/uL Comprehensive Metabolic Panel 08/20/16 08/21/16 Range/Units 21:56 06:07 Sodium 142 (137-145) mmol/L Potassium 3.7 4.0 (3.5-5.1) mmol/L Chloride 104 (98-107) mmol/L Carbon Dioxide 30 (22-30) mmol/L BUN 8 (7-17) mg/dL Creatinine 0.51 L (0.52-1.04) mg/dL Glucose 97 (74-99) mg/dL Calcium 9.1 (8.4-10.2) mg/dL AST 103 H (14-36) U/L ALT 329 H (9-52) U/L Alkaline Phosphatase 67 (38-126) U/L Total Protein 5.7 L (6.3-8.2) g/dL Albumin 3.2 L (3.5-5.0) g/dL Current Medications Generic Name Dose Route Start Last Admin Trade Name Freq PRN Reason Stop Dose Admin Acetaminophen/Butalbital/Caffeine 1 each 08/20/16 11:36 08/20/16 21:51 Fioricet 50-325-40 PO 1 each Q4H PRN Administration Migraine Headache Albuterol Sulfate 2.5 mg 08/19/16 21:50 08/20/16 07:25 Ventolin Nebulized INHALATION 2.5 mg RT-Q6H PRN Administration Wheezing Aspirin 81 mg 08/20/16 09:00 08/20/16 08:21 Aspirin PO 81 mg DAILY [facility] Administration Budesonide 1 mg 08/20/16 08:00 08/21/16 08:15 Pulmicort INHALATION Not Given RT-BID [facility] Cholecalciferol 1,000 unit 08/20/16 12:00 08/20/16 17:33 Vitamin D3 PO Not Given DAILY@1200 [facility] Fluticasone Propionate 2 spray 08/19/16 21:50 Flonase Nasal [place] EA NOSTRIL DAILY PRN Allergy Symptoms Gabapentin 1,200 mg 08/19/16 22:00 08/20/16 20:59 Neurontin PO 1,200 mg TID [facility] Administration Heparin Sodium (Porcine) 5,000 unit 08/20/16 16:00 08/20/16 22:56 Heparin SQ 5,000 unit Q8HR [facility] Administration Hydrochlorothiazide 25 mg 08/20/16 09:00 08/20/16 08:21 Hydrodiuril PO 25 mg DAILY [facility] Administration Ibuprofen 400 mg 08/19/16 21:47 Motrin PO Q6HR PRN Mild Pain or Fever > 100.5 Lorazepam 1 mg 08/19/16 21:50 08/20/16 11:45 Ativan PO 1 mg TID PRN Administration Anxiety Meclizine HCl 25 mg 08/19/16 21:50 Antivert PO TID PRN Vertigo Methocarbamol 500 mg 08/19/16 21:50 Robaxin PO TID PRN Muslce Pain Miscellaneous Information 1 each 08/19/16 19:49 08/19/16 20:29 Rx Info: Iv Contrast Was Given MISCELLANE 08/21/16 19:49 1 each DAILY PRN Administration Per Protocol Montelukast Sodium 10 mg 08/20/16 21:00 08/20/16 20:59 Singulair PO 10 mg HS [facility] Administration Multivitamins 1 each 08/20/16 12:00 08/20/16 17:33 Theragran PO Not Given DAILY@1200 [facility] Naloxone HCl 0.2 mg 08/19/16 21:47 Narcan IV Q2M PRN Opioid Reversal Nicotine 1 patch 08/20/16 13:30 08/20/16 17:33 Habitrol 14mg/24hr Patch TRANSDERM Not Given DAILY [facility] Oxycodone/Acetaminophen 1 each 08/19/16 21:50 08/20/16 08:52 Percocet 10-325 PO 1 each Q6HR PRN Administration Moderate Pain Pantoprazole Sodium 40 mg 08/20/16 09:00 04/19/17 08:21 Protonix IV 40 mg DAILY [facility] Administration Paroxetine HCl 40 mg 08/20/16 09:00 08/20/16 08:21 Paxil PO 40 mg DAILY [facility] Administration Verapamil HCl 120 mg 08/20/16 09:00 08/20/16 08:21 Isoptin Sr PO 120 mg DAILY [facility] Administration Intake and Output 08/20/16 08/21/16 08/21/16 22:59 06:59 14:59 Intake Total 478 640 Balance 478 640 Intake: Intake, IV Titration 160 640 Amount Sodium Chloride 0.9% 1, 160 640 000 ml @ 80 mls/hr IV . [id number] [facility] Rx#:[id number] Oral 318 Other: Voiding Method Toilet Toilet # Voids 1 1 Weight 103.1 kg 08/21/16 06:07 08/21/16 06:07 EKG Interpretations (text) EKG shows a normal sinus rhythm with occasional PVC nonspecific anterior lateral ST-T wave changes Assessment and Plan Plan: Assessment and plan #1 chest pain, atypical in nature. EKG shows abnormal sinus rhythm with occasional PVC, anterior lateral ST-T wave changes. Troponins 0.09, 0.09, 0.09 , not a typical pattern for acute coronary syndrome with no significant rise and fall. CTA of the chest was negative for pulmonary embolism. #2 hypertension #3 symptoms of headache and dizziness with frequent falls and difficulty with balance. Neurology has been consulted. Could be secondary to MS #4 asthma #6 multiple sclerosis #7 GERD #8 abnormal liver enzymes, hepatitis panel negative, abdominal ultrasound did not reveal any significant findings. Plan We will obtain an echocardiogram with Doppler study. We'll repeat an EKG this morning. Patient has also been advised to undergo stress testing firm more definitive diagnosis. Further recommendations will follow. DNP note has been reviewed, I agree with a documented findings and plan of care. Patient was seen and examined.
[2016-08-21] MEDS: HEPARIN SODIUM,PORCINE 5,000 UNIT/ML 1 ML VIAL SQ SCH ×3 (13:08→23:39)
[2016-08-21] MEDS: PANTOPRAZOLE 40 MG/10 ML VIAL IV SCH (13:09)
[2016-08-21] MEDS: BUTALB/APAP/CAFF 50-325-40MG TAB PO PRN ×2 (13:09→18:29)
[2016-08-21] MEDS: ASPIRIN 81 MG CHEW PO SCH (13:09)
[2016-08-21] MEDS: HYDROCHLOROTHIAZIDE 25 MG TAB PO SCH (13:09)
[2016-08-21] MEDS: MULTIVITAMINS, THERA 1 EACH TAB PO SCH (13:10)
[2016-08-21] MEDS: PARoxetine 20 MG TAB PO SCH (13:10)
[2016-08-21] MEDS: VERAPAMIL SR 120 MG TABLET.ER PO SCH (13:10)
[2016-08-21] MEDS: NICOTINE 14MG/24HR PATCH TRANSDERM SCH (13:10)
[2016-08-21] MEDS: LORazepam 1 MG TAB PO PRN ×2 (13:10→18:29)
[2016-08-21] MEDS: CHOLECALCIFEROL 1,000 UNIT TAB PO SCH (13:10)
[2016-08-21] MEDS: GABAPENTIN 400 MG CAP PO SCH ×3 (13:10→20:40)
[2016-08-21] MEDS: oxyCODONE-APAP 10-325MG 1 EACH TAB PO PRN ×2 (13:11→18:28)
--- NOTE | 2016-08-21 13:12 | P.PN ---
Subjective This is a 50-year-old -[place] female patient of Dr. Tabares with past medical history of asthma, uterine cancer status post hysterectomy and radiation , fibromyalgia, COPD, gastroesophageal reflux disease, hypertension, osteoarthritis and osteoporosis, MS currently on Copaxone and under the care of Dr. Tyler Chi for which she has an appointment on . Patient states that she had chest pain, headache dizziness and neck pain and has had 2 recent falls at home 1-1/2 days apart. Her balance has been off and she is unable to get up. Headache goes around front and around to the back of her head. She does have history of vertigo as well. She denies history of diabetes. She came into [facility] emergency center and underwent chest x-ray that showed cardiomegaly with mild pulmonary congestion. No consolidation. No overt heart failure. D-dimer was elevated at 2.83 and CTA of the chest showed no evidence of pulmonary embolism. Cardiomegaly. Minimal subsegmental atelectasis at the right lung base. CAT scan of the brain and C-spine showed a negative CAT scan of the brain and mild spondylosis of C5-6. No fracture. Liver enzymes were elevated with AST of 498 and ALT of 593. Acute hepatitis panel was negative. Abdominal ultrasound showed no gallstones or dilated ducts. Small cyst in the left lobe of the liver. Influenza testing a and B were negative. She had mild elevation of her troponins which were 0.090, 0.090 and 0.092. Patient was to be admitted to the selective care unit and consult with cardiology. We have added and consult with her neurologist due to concern for falls and worsening MS as well as headaches. 08/21: Patient has been seen by fire support specialist and echocardiogram reveals mild mitral regurgitation, mild tricuspid regurgitation, EF 55-60%. They have scheduled her for stress test for tomorrow. Neurology consult is pending. Patient is complaining of headache today and dizziness. IV fluids changed to saline lock. Objective - Vital Signs Vital signs: Vital Signs Temp 98.4 F 08/21/16 12:00 Pulse 74 08/21/16 12:00 Resp 18 08/21/16 12:00 BP 134/70 08/21/16 12:00 Pulse Ox 99 08/21/16 12:00 Intake & Output 04/08/21/16 08/21/16 18:59 06:59 18:59 Intake Total 355 1000 Balance 355 1000 Weight 103.1 kg Intake: Intake, IV Titration 800 Amount Sodium Chloride 0.9% 1, 800 000 ml @ 80 mls/hr IV . [id number] [facility] Rx#:[id number] Oral 355 200 Other: Voiding Method Toilet Toilet # Voids 1 - Exam Gen: This is a 50-year-old -[place] female. She is found in the ER on a stretcher and appears to be in no acute distress. HEENT: Head is atraumatic, normocephalic. Pupils equal, round. Sclerae is anicteric. NECK: Supple. No JVD. No lymphadenopathy. No thyromegaly. LUNGS: Scattered wheezes. No intercostal retractions. HEART: Regular rate and rhythm. No murmur. ABDOMEN: Soft. Bowel sounds are present. No masses. No tenderness. EXTREMITIES: No pedal edema. No calf tenderness. NEUROLOGICAL: Patient is awake, alert and oriented x3. Cranial nerves 2 through 12 are grossly intact. - Labs CBC & Chem 7: 08/21/16 06:07 08/21/16 06:07 Labs: Abnormal Lab Results - Last 24 Hours (Table) 08/21/16 Range/Units 06:07 Creatinine 0.51 L (0.52-1.04) mg/dL AST 103 H (14-36) U/L ALT 329 H (9-52) U/L Total Protein 5.7 L (6.3-8.2) g/dL Albumin 3.2 L (3.5-5.0) g/dL Assessment and Plan Plan: 1. Chest pain with mild elevation of troponins. Cardiology consult requested. Echocardiogram as above. Stress test for tomorrow. 2. Headache, neck pain, dizziness and tinnitus with frequent falls and difficulty with balance. Consult with Dr. Chi. Possibly related to worsening MS. PT and OT evaluations requested. Dr. Ramirez is covering. 3. COPD. Continue albuterol nebulizer treatments every 6 hours as needed, Pulmicort 1 mg twice daily. 4. Mild persistent asthma. Continue albuterol nebulizer treatment every 6 hours, Pulmicort 1 mg twice daily, Flonase 2 sprays daily as needed, Singulair 10 mg at bedtime. 5. Hypertension. Continue verapamil 120 mg daily, hydrochlorothiazide 25 mg daily. 6. Multiple sclerosis. Patient is normally on Copaxone 20 mg subcu daily. Continue methocarbamol, Neurontin. Consult with Dr. Chi. 7. Gastroesophageal reflux disease. Patient is normally on Zantac. 8. Recurrent depression and generalized anxiety. Continue Paxil and Ativan. 9. Morbid obesity with BMI of 39. 10. DVT prophylaxis. Heparin subcu. 11. Gastrointestinal prophylaxis. Protonix. Discharge plan: PT and OT ordered. Impression and plan of care have been directed as dictated by the signing physician. Elaine Nguyen nurse practitioner acting as scribe for signing physician. Time with Patient: Greater than 30
[2016-08-21] MEDS: MONTELUKAST 10 MG TAB PO SCH (20:39)
[2016-08-22] MEDS: oxyCODONE-APAP 10-325MG 1 EACH TAB PO PRN ×4 (00:18→22:56)
[2016-08-22] MEDS: BUTALB/APAP/CAFF 50-325-40MG TAB PO PRN ×4 (00:18→22:55)
[2016-08-22] MEDS: BUDESONIDE 1 MG/2 ML NEBU INHALATION SCH ×2 (09:23→19:54)
[2016-08-22] MEDS: ONDANSETRON 4 MG/2 ML VIAL IVP PRN (09:29)
[2016-08-22] MEDS: PANTOPRAZOLE 40 MG/10 ML VIAL IV SCH (09:30)
[2016-08-22] MEDS: HEPARIN SODIUM,PORCINE 5,000 UNIT/ML 1 ML VIAL SQ SCH ×3 (09:30→22:53)
[2016-08-22] MEDS: ASPIRIN 81 MG CHEW PO SCH (09:32)
[2016-08-22] MEDS: PARoxetine 20 MG TAB PO SCH (09:32)
[2016-08-22] MEDS: VERAPAMIL SR 120 MG TABLET.ER PO SCH (09:32)
[2016-08-22] MEDS: LORazepam 1 MG TAB PO PRN ×3 (09:40→23:13)
[2016-08-22] MEDS: NICOTINE 14MG/24HR PATCH TRANSDERM SCH (09:44)
[2016-08-22] MEDS ORDERED: DOBUTamine DRIP for NUC MED 500 MG in DEXTROSE/WATER 1 250ML.BAG IV ONE (10:21)
[2016-08-22] MEDS ORDERED: SCOPOLAMINE 1.5MG/72HR PATCH TRANSDERM STA (10:24)
[2016-08-22] MEDS ORDERED: REGADENOSON 0.4 MG/5 ML SYRINGE IV ONE (10:28)
[2016-08-22] MEDS ORDERED: AMINOPHYLLINE 500 MG/20 ML VIAL IV PRN (10:28)
--- NOTE | 2016-08-22 12:11 | EST ---
DATE OF SERVICE: 08/22/2016 AGE: 50Y SEX: F HT: 63" WT: 227 lbs. Lexiscan Cardiolite Stress Test *Heart Rate Blood Pressure *Rest: 63 Rest: 128/80 * *Max. Achieved: 84 Maximum BP: 183/67 85% PMHR: 144 100% PMHR: 169 *METS: - INDICATIONS: Chest pain. MEDICATIONS: - CLINICAL INFORMATION: Hypertension, chest pain, shortness of breath, palpitations, CVA, family history of coronary artery disease, history of smoking 1/2 pack of cigarettes for 20 years. Resting ECG shows sinus rhythm, rate of 63 beats per minute, LA interval 0.16, QRS 0.08, poor R wave progression in anteroseptal leads. Utilizing a standard Lexiscan protocol, Lexiscan was given, followed by serial EKGs without any chest pain or pressure or ST segment deviations indicative of ischemia on the monitoring 12 leads. IMPRESSION: 1. Baseline rhythm is sinus with normal LA interval, normal QRS, normal ST-T waves with poor R-wave progression in anteroseptal leads. 2. Negative Lexiscan Cardiolite study. 3. Nuclear scintigrams to follow from Radiology Department.
[2016-08-22] MEDS: GABAPENTIN 400 MG CAP PO SCH ×3 (13:25→22:57)
--- NOTE | 2016-08-22 13:39 | P.PN ---
Subjective This is a 50-year-old -[place] female patient of Dr. Tabares with past medical history of asthma, uterine cancer status post hysterectomy and radiation , fibromyalgia, COPD, gastroesophageal reflux disease, hypertension, osteoarthritis and osteoporosis, MS currently on Copaxone and under the care of Dr. Tyler Chi for which she has an appointment on . Patient states that she had chest pain, headache dizziness and neck pain and has had 2 recent falls at home 1-1/2 days apart. Her balance has been off and she is unable to get up. Headache goes around front and around to the back of her head. She does have history of vertigo as well. She denies history of diabetes. She came into [facility] emergency center and underwent chest x-ray that showed cardiomegaly with mild pulmonary congestion. No consolidation. No overt heart failure. D-dimer was elevated at 2.83 and CTA of the chest showed no evidence of pulmonary embolism. Cardiomegaly. Minimal subsegmental atelectasis at the right lung base. CAT scan of the brain and C-spine showed a negative CAT scan of the brain and mild spondylosis of C5-6. No fracture. Liver enzymes were elevated with AST of 498 and ALT of 593. Acute hepatitis panel was negative. Abdominal ultrasound showed no gallstones or dilated ducts. Small cyst in the left lobe of the liver. Influenza testing a and B were negative. She had mild elevation of her troponins which were 0.090, 0.090 and 0.092. Patient was to be admitted to the selective care unit and consult with cardiology. We have added and consult with her neurologist due to concern for falls and worsening MS as well as headaches. 08/21: Patient has been seen by commodity industry analyst and echocardiogram reveals mild mitral regurgitation, mild tricuspid regurgitation, EF 55-60%. They have scheduled her for stress test for tomorrow. Neurology consult is pending. Patient is complaining of headache today and dizziness. IV fluids changed to saline lock. 08/22: Lexiscan stress test has been ordered. We are still waiting for neurology to evaluate. Patient states she is not feeling well enough to go home. She did have some nausea this morning and dizziness. Scopolamine patch started. Objective - Vital Signs Vital signs: Vital Signs Temp 97.5 F L 08/22/16 08:00 Pulse 74 08/22/16 08:00 Resp 18 08/22/16 08:00 BP 134/83 08/22/16 08:00 Pulse Ox 99 08/22/16 08:00 Intake & Output 08/21/16 08/22/16 08/22/16 18:59 06:59 18:59 Intake Total 222 480 Output Total 250 Balance -28 480 Intake: Oral 222 480 Output: Urine 250 Other: Voiding Method Toilet Toilet Toilet # Voids 1 1 # Bowel Movements 1 - Exam Gen: This is a 50-year-old -[place] female. She is found in the ER on a stretcher and appears to be in no acute distress. HEENT: Head is atraumatic, normocephalic. Pupils equal, round. Sclerae is anicteric. NECK: Supple. No JVD. No lymphadenopathy. No thyromegaly. LUNGS: Scattered wheezes. No intercostal retractions. HEART: Regular rate and rhythm. No murmur. ABDOMEN: Soft. Bowel sounds are present. No masses. No tenderness. EXTREMITIES: No pedal edema. No calf tenderness. NEUROLOGICAL: Patient is awake, alert and oriented x3. Cranial nerves 2 through 12 are grossly intact. - Labs CBC & Chem 7: 08/21/16 06:07 08/21/16 06:07 Assessment and Plan Plan: 1. Chest pain with mild elevation of troponins. Cardiology consult requested. Echocardiogram as above. Stress test for tomorrow. 2. Headache, neck pain, dizziness and tinnitus with frequent falls and difficulty with balance with possible Mnire's. Consult with Dr. Chi. Possibly related to worsening MS. PT and OT evaluations requested. Dr. Ramirez is covering. 3. COPD. Continue albuterol nebulizer treatments every 6 hours as needed, Pulmicort 1 mg twice daily. 4. Mild persistent asthma. Continue albuterol nebulizer treatment every 6 hours, Pulmicort 1 mg twice daily, Flonase 2 sprays daily as needed, Singulair 10 mg at bedtime. 5. Hypertension. Continue verapamil 120 mg daily, hydrochlorothiazide 25 mg daily. 6. Multiple sclerosis. Patient is normally on Copaxone 20 mg subcu daily. Continue methocarbamol, Neurontin. Consult with Dr. Chi. 7. Gastroesophageal reflux disease. Patient is normally on Zantac. 8. Recurrent depression and generalized anxiety. Continue Paxil and Ativan. 9. Morbid obesity with BMI of 39. 10. DVT prophylaxis. Heparin subcu. 11. Gastrointestinal prophylaxis. Protonix. Discharge plan: Home on Thursday. Impression and plan of care have been directed as dictated by the signing physician. Elaine Nguyen nurse practitioner acting as scribe for signing physician. Time with Patient: Greater than 30
--- NOTE | 2016-08-22 14:10 | NM ---
EXAMINATION TYPE: NM stress lexiscan cardiolite DATE OF EXAM: 08/22/2016 12:50 PM COMPARISON: NONE HISTORY: Chest pain TECHNIQUE: After the intravenous administration of 11.0 mCi Tc 99m Sestamibi - Cardiolite resting SP ECT images acquired 45 minutes post injection. The patient received 0.4mg Lexiscan, 26.5 mCi Tc 99m Sestamibi - Stress images obtained [address] injection FINDINGS: Review of stress and rest SPECT images demonstrates some decreased uptake along the cardiac apex on s tress and rest images, some decreased uptake is noted at the cardiac apex on stress images as compare d to rest images additionally. Gated analysis shows normal wall motion with an estimated left ventri cular ejection fraction of 53 %. IMPRESSION: Difficult to exclude pharmacologically induced left ventricular myocardial ischemia at the cardiac ap ex on the basis of this exam.
[2016-08-22] MEDS: CHOLECALCIFEROL 1,000 UNIT TAB PO SCH (15:25)
[2016-08-22] MEDS: HYDROCHLOROTHIAZIDE 25 MG TAB PO SCH (15:25)
[2016-08-22] MEDS: MULTIVITAMINS, THERA 1 EACH TAB PO SCH (15:25)
--- NOTE | 2016-08-22 16:44 | P.PN ---
Subjective This is a 50-year-old -Omani female with a known history of asthma, nicotine dependence, COPD, hypertension, uterine cancer with prior radiation, presented to the hospital with symptoms of left-sided chest pain with associated headache and neck pain. Patient described the pain as an ache but states mostly that is sharp in nature and worsens with a deep breath. Patient also complains of pain that shoots up the back of her neck. Apparently patient had recent falls at home so she became extremely unsteady. She has had some mild exertional shortness of breath. Patient has also been recently diagnosed with multiple sclerosis. D-dimer was elevated on admission, CT of the chest did not reveal any evidence of pulmonary embolism, there was minimal subsegmental atelectasis at the right lung base. CT of the brain and C-spine showed a negative scan of the brain with mild spondylosis at C5 and C6. Liver enzymes noted to be elevated on admission, acute hepatitis panel was negative and abdominal ultrasound showed no gallstones or dilated duct. Small cyst was noted in the liver. Patient underwent a Lexiscan Cardiolite this morning which was essentially inconclusive impression stating "difficult to exclude pharmacologically induced left ventricular myocardial ischemia at the cardiac apex on the basis of this exam." On examination, patient continues to complain of headache denies any complaints of chest discomfort at this time. Objective - Vital Signs Vital signs: Vital Signs Temp 97.8 F 08/22/16 15:22 Pulse 65 08/22/16 15:22 Resp 18 08/22/16 15:22 BP 122/75 08/22/16 15:22 Pulse Ox 96 08/22/16 15:22 Intake & Output 08/21/16 08/22/16 08/22/16 18:59 06:59 18:59 Intake Total 222 480 Output Total 250 200 Balance -28 480 -200 Intake: Oral 222 480 Output: Urine 250 200 Other: Voiding Method Toilet Toilet Toilet # Voids 1 1 1 # Bowel Movements 1 0 - Exam PHYSICAL EXAMINATION: HEENT: [Head is atraumatic, normocephalic. Pupils equal, round. Neck is supple. There is no elevated jugular venous pressure.] HEART EXAMINATION: [Heart sounds regular, S1 and S2 normal. No murmur or gallop heard.] CHEST EXAMINATION:[ Lungs reveal diminished air entry bilaterally. No chest wall tenderness is noted on palpation or with deep breathing.] ABDOMEN: [ Soft, obese, nontender. Bowel sounds are heard. No organomegaly noted ]. EXTREMITIES:[ 2+ peripheral pulses with no evidence of peripheral edema and no calf tenderness noted]. NEUROLOGIC [patient is awake, alert and oriented x3.] . - Labs CBC & Chem 7: 08/21/16 06:07 08/21/16 06:07 Assessment and Plan Plan: #1 chest pain, atypical in nature, Lexiscan Cardiolite essentially inconclusive #2 hypertension #3 symptoms of headache and dizziness with frequent falls and difficulty with balance, neurology has been consulted, likely secondary to Donnell, patient currently has scopolamine patch #4 asthma #5 MS #6 GERD #7 abnormal liver enzymes, hepatitis panel negative, abdominal ultrasound did not reveal any significant findings. Cardiology standpoint, patient's chest discomfort is atypical. The patient may be discharged home from our standpoint. We will schedule the patient for dobutamine stress echo as an outpatient. She will follow-up in the office with Dr. Rajan. SCOURING MACHINE TENDER note has been reviewed, I agree with a documented findings and plan of care. Patient was seen and examined.
[2016-08-22] MEDS: MONTELUKAST 10 MG TAB PO SCH (22:57)
--- NOTE | 2016-08-22 23:50 | P.CNNES ---
History of Present Illness Consult date: 08/22/16 Requesting physician: Elaine Nguyen Reason for Consult: Headaches and Falls Chief complaint: Headache and falls History of Present Illness: Neurology was requested to consult on a 50-year-old -Thai female who is a patient of Dr. Tabraes. Patient has multiple chronic conditions and include: Hysterectomy, fibromyalgia, COPD, GERD, hypertension, osteoarthritis, osteoporosis and multiple sclerosis. Patient is currently on Copaxone under the care of for which she has an appointment on . Patient states that she had chest pain, headache and dizziness with neck pain. She has had 2 recent falls at home in the past 2 days. Her balance has been off and she is unable to get up. Headache goes anterior to posterior and is bilateral. She does have a history of vertigo. In the emergency department patient had a chest x-ray that showed cardiomegaly with mild pulmonary congestion. No consolidation. No overt heart failure. D-dimer is elevated at 2.83 and CTA of the chest showed no evidence of pulmonary embolism. CT scan of the brain was negative. CT scan of the cervical spine noted mild spondylosis of C5-6. Enzymes were elevated including AST and ALT. Patient mild elevation of troponins. Patient was admitted and neurology and other specialty groups are consult. Patient is supine in bed, alert and oriented 3 and in no acute distress. Review of Systems Systems not noted in HPI or negative Past Medical History Past Medical History: Asthma, Cancer, COPD, Fibromyalgia, GERD/Reflux, Hypertension, Osteoarthritis (OA), Syncope Additional Past Medical History / Comment(s): Rheumatic fever, heart murmur, osteoporosis, chronic bronchitis, MS History of Any Multi-Drug Resistant Organisms: None Reported Past Surgical History: Bladder Surgery, Hysterectomy Additional Past Surgical History / Comment(s): uterine cancer, radiation, Past Anesthesia/Blood Transfusion Reactions: No Reported Reaction Past Psychological History: Anxiety, Depression Smoking Status: Current every day smoker Past Alcohol Use History: None Reported Additional Past Alcohol Use History / Comment(s): Patient is a smoker of one half pack per day for 20 years. She denies any medical marijuana, marijuana, street drug or alcohol use. She lives alone in a girlfriend helps her. She is . Past Drug Use History: None Reported - Past Family History Mother Family Medical History: CVA/TIA, Myocardial Infarction ([place]) Additional Family Medical History / Comment(s): Mother is alive at age 72 with history of brain aneurysm, 3 strokes and 2 myocardial infarctions. Father Additional Family Medical History / Comment(s): Father at age 72 from a cardiac arrest thought to be due to a myocardial infarction. Sister(s) Additional Family Medical History / Comment(s): Patient has 2 sisters with no major medical problems. Patient does not have any brothers. Patient has 2 children ages 33 and 26 with no major medical problems. Medications and Allergies Home Medications Medication Instructions Recorded Confirmed Type Albuterol Inhaler [Ventolin 2 puff INHALATION RT-Q6H PRN 02/20/14 08/19/16 History Inhaler] Aspirin 81 mg PO DAILY 02/20/14 08/19/16 History Cholecalciferol [Vitamin D3] 1,000 units PO DAILY 02/20/14 08/19/16 History Fluticasone Propionate [Flonase] 2 spray EA NOSTRIL DAILY PRN 02/20/14 08/19/16 History Hydrochlorothiazide 25 mg PO DAILY 02/20/14 08/19/16 History LORazepam [Ativan] 1 mg PO TID PRN 02/20/14 08/19/16 History Meclizine [Antivert] 25 mg PO TID PRN 02/20/14 08/19/16 History Methocarbamol 500 mg PO TID PRN 02/20/14 08/19/16 History Montelukast [Singulair] 10 mg PO HS 02/20/14 08/19/16 History Multivit with Calcium,Iron,Min 1 tab PO DAILY 02/20/14 08/19/16 History [Women's Daily Multivitamin] PARoxetine HCL [Paxil] 40 mg PO DAILY 02/20/14 08/19/16 History Verapamil HCl 120 mg PO DAILY 02/20/14 08/19/16 History oxyCODONE-APAP 10-325MG [Percocet 1 tab PO Q6HR PRN 02/20/14 08/19/16 History 10-325 mg] Beclomethasone Dipropionate [Qvar 2 puff INHALATION RT-BID 08/19/16 08/19/16 History 80 mcg] Gabapentin [Neurontin] 1,200 mg PO TID 08/19/16 08/19/16 History Ranitidine HCl [Zantac] 150 mg PO BID 08/19/16 08/19/16 History Glatiramer Acetate [Copaxone] 20 mg SQ DAILY 08/20/16 08/20/16 History Allergies Allergy/AdvReac Type Severity Reaction Status Date / Time penicillin G AdvReac Itching Verified 08/19/16 19:11 Physical Examination - Vital Signs Vital Signs: Vital Signs Temp Pulse Pulse Resp BP Pulse Ox 08/22/16 20:00 97.9 F 69 18 107/69 97 08/22/16 19:11 97.5 F L 70 18 108/62 96 08/22/16 15:22 97.8 F 65 18 122/75 96 08/22/16 08:00 97.5 F L 65 16 134/83 99 08/22/16 04:00 97.1 F L 74 18 101/63 95 08/22/16 00:00 98.7 F 72 18 102/62 95 Intake and Output 08/22/16 08/22/16 08/23/16 14:59 22:59 06:59 Intake Total 480 Output Total 200 Balance 280 Intake: Oral 480 Output: Urine 200 Other: Voiding Method Toilet Toilet # Voids 1 # Bowel Movements 0 Constitutional: AOx3, cooperative HEENT: NC/AT, no facial asymmetry is seen. Neck: Supple, no masses Respiratory: No increased work of breathing Cardiac: Regular rate and Rhythm GI: non tender, non distended Musculoskeletal: Instrumentation Technologist strengths are equal bilaterally 4/5, Lower extremity strengths are equal bilaterally at 4/5. Neurological: CN II-XII in tact, patient was AOx3, speech and language are normal, no unilateralizing weakness, no seizure activity note on physical exam. Sensation was normal. Integementary: no rash, no erythema Psychiatric: mood and affect appropriate Results - Laboratory Findings CBC and BMP: 08/21/16 06:07 08/21/16 06:07 Abnormal Lab Findings: Abnormal Labs 08/20/16 08/20/16 08/20/16 01:25 06:52 06:52 Potassium 3.3 L Chloride 96 L Carbon Dioxide 36 H Creatinine Glucose 104 H AST 301 H ALT 530 H Troponin I 0.090 H* 0.092 H* Total Protein Albumin 08/21/16 06:07 Potassium Chloride Carbon Dioxide Creatinine 0.51 L Glucose AST 103 H ALT 329 H Troponin I Total Protein 5.7 L Albumin 3.2 L Assessment and Plan (1) Multiple sclerosis exacerbation Status: Acute Plan: Exacerbation of multiple sclerosis Patient's headache and dizziness to appear to be related to exacerbation of multiple sclerosis. CT of the brain was negative. Ordered Solu-Medrol 250 mg every 6 hours 3 days for MS exacerbation. It is noted that there are 2 neurologists consulted on this patient. Other neurologist is consulted for MS related treatment. Recommend IV steroid infusionWismer protocol. I discussed the patient's pertinent medical information with Dr. Ramirez. He agrees with the plan of care as implemented.
[2016-08-23] MEDS: HEPARIN SODIUM,PORCINE 5,000 UNIT/ML 1 ML VIAL SQ SCH ×3 (08:57→23:07)
[2016-08-23] MEDS: GABAPENTIN 400 MG CAP PO SCH ×3 (09:00→21:07)
[2016-08-23] MEDS: PANTOPRAZOLE 40 MG TABLET PO SCH (09:00)
[2016-08-23] MEDS: ASPIRIN 81 MG CHEW PO SCH ×2 (09:00→11:33)
[2016-08-23] MEDS: HYDROCHLOROTHIAZIDE 25 MG TAB PO SCH ×2 (09:00→11:34)
[2016-08-23] MEDS: NICOTINE 14MG/24HR PATCH TRANSDERM SCH ×2 (09:00→09:06)
[2016-08-23] MEDS: oxyCODONE-APAP 10-325MG 1 EACH TAB PO PRN ×3 (09:01→21:06)
[2016-08-23] MEDS: PARoxetine 20 MG TAB PO SCH (09:01)
[2016-08-23] MEDS: BUTALB/APAP/CAFF 50-325-40MG TAB PO PRN ×3 (09:01→21:05)
[2016-08-23] MEDS: VERAPAMIL SR 120 MG TABLET.ER PO SCH (09:01)
[2016-08-23] MEDS: LORazepam 1 MG TAB PO PRN ×2 (10:24→21:06)
[2016-08-23] MEDS: ONDANSETRON 4 MG/2 ML VIAL IVP PRN ×2 (10:24→21:08)
[2016-08-23] MEDS: CHOLECALCIFEROL 1,000 UNIT TAB PO SCH (11:34)
[2016-08-23] MEDS: MULTIVITAMINS, THERA 1 EACH TAB PO SCH (11:34)
[2016-08-23] MEDS: BUDESONIDE 1 MG/2 ML NEBU INHALATION SCH ×2 (11:47→22:10)
[2016-08-23] MEDS ORDERED: methylPREDNISolone SOD SUCCI 125 MG/2 ML VIAL IV SCH (12:00)
[2016-08-23 12:02] LABS: Glucose,Whole Blood 116 mg/dL (75-99)
[2016-08-23] MEDS: INSULIN LISPRO (humaLOG) 300 UNIT/3 ML VIAL SQ SCH ×3 (12:02→21:10)
[2016-08-23 12:54] LABS: Hemoglobin A1C 6.3 % (4.2-6.1)
--- NOTE | 2016-08-23 13:36 | P.PN ---
Subjective This is a 50-year-old -Lebanese female patient of Dr. Tabares with past medical history of asthma, uterine cancer status post hysterectomy and radiation , fibromyalgia, COPD, gastroesophageal reflux disease, hypertension, osteoarthritis and osteoporosis, MS currently on Copaxone and under the care of Dr. Tyler Chi for which she has an appointment on . Patient states that she had chest pain, headache dizziness and neck pain and has had 2 recent falls at home 1-1/2 days apart. Her balance has been off and she is unable to get up. Headache goes around front and around to the back of her head. She does have history of vertigo as well. She denies history of diabetes. She came into [facility] emergency center and underwent chest x-ray that showed cardiomegaly with mild pulmonary congestion. No consolidation. No overt heart failure. D-dimer was elevated at 2.83 and CTA of the chest showed no evidence of pulmonary embolism. Cardiomegaly. Minimal subsegmental atelectasis at the right lung base. CAT scan of the brain and C-spine showed a negative CAT scan of the brain and mild spondylosis of C5-6. No fracture. Liver enzymes were elevated with AST of 498 and ALT of 593. Acute hepatitis panel was negative. Abdominal ultrasound showed no gallstones or dilated ducts. Small cyst in the left lobe of the liver. Influenza testing a and B were negative. She had mild elevation of her troponins which were 0.090, 0.090 and 0.092. Patient was to be admitted to the selective care unit and consult with cardiology. We have added and consult with her neurologist due to concern for falls and worsening MS as well as headaches. 08/21: Patient has been seen by museum preparator and echocardiogram reveals mild mitral regurgitation, mild tricuspid regurgitation, EF 55-60%. They have scheduled her for stress test for tomorrow. Neurology consult is pending. Patient is complaining of headache today and dizziness. IV fluids changed to saline lock. 08/22: Lexiscan stress test has been ordered. We are still waiting for neurology to evaluate. Patient states she is not feeling well enough to go home. She did have some nausea this morning and dizziness. Scopolamine patch started. 08/23: Patient was seen by neurology surgery was recommended for the patient to be started on Solu-Medrol 250 mg IV piggyback every 6 hours for 3 days. Objective - Vital Signs Vital signs: Vital Signs Temp 98.1 F 08/23/16 04:00 Pulse 69 08/23/16 04:00 Resp 18 08/23/16 04:00 BP 98/60 08/23/16 04:00 Pulse Ox 97 08/23/16 04:00 Intake & Output 08/22/16 08/23/16 08/23/16 18:59 06:59 18:59 Intake Total 480 400 Output Total 200 Balance 280 400 Weight 103.6 kg Intake: Oral 480 400 Output: Urine 200 Other: Voiding Method Toilet Toilet # Voids 1 1 # Bowel Movements 0 - Constitutional General appearance: Present: average body habitus, no acute distress - EENT Eyes: Present: anicteric sclerae, EOMI, PERRLA, normal appearance. Absent: ptosis, scleral icterus ENT: Present: hearing grossly normal, normal oropharynx. Absent: thrush Ears: bilateral: normal - Neck Neck: Present: normal ROM. Absent: lymphadenopathy, rigidity, stridor, thyromegaly Carotids: bilateral: upstroke normal Thyroid: bilateral: normal size - Respiratory Respiratory: bilateral: diminished, negative: dullness, rales, rhonchi, wheezing , prolonged expiration, prolonged inspiration - Cardiovascular Rhythm: regular Heart sounds: normal: S1, S2 Abnormal Heart Sounds: Present: systolic murmur. Absent: S3 Gallop, S4 Gallop, click - Gastrointestinal General gastrointestinal: Present: normal bowel sounds, soft. Absent: splenomegaly, tenderness, umbilical hernia, ventral hernia - Integumentary Integumentary: Present: normal, normal turgor - Neurologic Neurologic: Present: CNII-XII intact - Musculoskeletal Musculoskeletal: Present: generalized weakness, strength equal bilaterally - Psychiatric Psychiatric: Present: A&O x's 3, appropriate affect, intact judgment & insight - Labs CBC & Chem 7: 08/21/16 06:07 08/21/16 06:07 Assessment and Plan Plan: Assessment and Plan Plan: 1. Chest pain with mild elevation of troponins. Cardiology consult requested. Echocardiogram as above. Stress test for tomorrow. 2. Headache, neck pain, dizziness and tinnitus with frequent falls and difficulty with balance with possible Mnire's. Patient was seen by neurology was recommended for the patient was started on Solu-Medrol 250 mg IV piggyback every 6 hours for 3 days. 3. COPD. Continue albuterol nebulizer treatments every 6 hours as needed, Pulmicort 1 mg twice daily. 4. Mild persistent asthma. Continue albuterol nebulizer treatment every 6 hours, Pulmicort 1 mg twice daily, Flonase 2 sprays daily as needed, Singulair 10 mg at bedtime. 5. Hypertension. Continue verapamil 120 mg daily, hydrochlorothiazide 25 mg daily. 6. Multiple sclerosis. Patient is normally on Copaxone 20 mg subcu daily. Continue methocarbamol, Neurontin. Consult with Dr. Chi. 7. Gastroesophageal reflux disease. Patient is normally on Zantac. 8. Recurrent depression and generalized anxiety. Continue Paxil and Ativan. 9. Morbid obesity with BMI of 39. 10. DVT prophylaxis. Heparin subcu. 11. Gastrointestinal prophylaxis. Protonix.
[2016-08-23] MEDS ORDERED: LORazepam 2 MG/ML SYRINGE IV STA (14:54)
--- NOTE | 2016-08-23 15:27 | P.PN ---
Subjective This is a 50-year-old -Georgian female with a known history of asthma, nicotine dependence, COPD, hypertension, uterine cancer with prior radiation, presented to the hospital with symptoms of left-sided chest pain with associated headache and neck pain. Patient described the pain as an ache but states mostly that is sharp in nature and worsens with a deep breath. Patient also complains of pain that shoots up the back of her neck. Apparently patient had recent falls at home so she became extremely unsteady. She has had some mild exertional shortness of breath. Patient has also been recently diagnosed with multiple sclerosis. D-dimer was elevated on admission, CT of the chest did not reveal any evidence of pulmonary embolism, there was minimal subsegmental atelectasis at the right lung base. CT of the brain and C-spine showed a negative scan of the brain with mild spondylosis at C5 and C6. Liver enzymes noted to be elevated on admission, acute hepatitis panel was negative and abdominal ultrasound showed no gallstones or dilated duct. Small cyst was noted in the liver. Patient underwent a Lexiscan Cardiolite this morning which was essentially inconclusive impression stating "difficult to exclude pharmacologically induced left ventricular myocardial ischemia at the cardiac apex on the basis of this exam." Dr. Rajan did review stress images and feels that this is likely not an area of ischemia but an artifact. Objective - Vital Signs Vital signs: Vital Signs Temp 98.5 F 08/23/16 09:08 Pulse 63 08/23/16 11:37 Resp 18 08/23/16 11:37 BP 113/66 08/23/16 11:37 Pulse Ox 94 L 08/23/16 11:37 Intake & Output 08/22/16 08/23/16 08/23/16 18:59 06:59 18:59 Intake Total 480 400 820 Output Total 200 850 Balance 280 400 -30 Weight 103.6 kg Intake: IV 80 .9 @20 80 Intake, IV Titration 100 Amount methylPREDNISolone SOD 100 SUCC 250 mg In Sodium Chloride 0.9% 100 ml @ 100 mls/hr IVPB Q6HR ANDREAS Rx#:[id number] Oral 480 400 640 Output: Urine 200 850 Other: Voiding Method Toilet Toilet Toilet # Voids 1 1 1 # Bowel Movements 0 - Exam PHYSICAL EXAMINATION: HEENT: [Head is atraumatic, normocephalic. Pupils equal, round. Neck is supple. There is no elevated jugular venous pressure.] HEART EXAMINATION: [Heart sounds regular, S1 and S2 normal. No murmur or gallop heard.] CHEST EXAMINATION:[ Lungs reveal diminished air entry bilaterally. No chest wall tenderness is noted on palpation or with deep breathing.] ABDOMEN: [ Soft, obese, nontender. Bowel sounds are heard. No organomegaly noted ]. EXTREMITIES:[ 2+ peripheral pulses with no evidence of peripheral edema and no calf tenderness noted]. NEUROLOGIC [patient is awake, alert and oriented x3.] . - Labs CBC & Chem 7: 08/21/16 06:07 08/21/16 06:07 Labs: Abnormal Lab Results - Last 24 Hours (Table) 08/21/16 08/23/16 Range/Units 06:07 11:52 POC Glucose (mg/dL) 116 H (75-99) mg/dL Hemoglobin A1c 6.3 H (4.2-6.1) % Assessment and Plan Plan: #1 chest pain, atypical in nature, Lexiscan Cardiolite essentially inconclusive #2 hypertension #3 symptoms of headache and dizziness with frequent falls and difficulty with balance, neurology has been consulted, likely secondary to Donnell, patient currently has scopolamine patch #4 asthma #5 MS #6 GERD #7 abnormal liver enzymes, hepatitis panel negative, abdominal ultrasound did not reveal any significant findings. Cardiology standpoint, patient's chest discomfort is atypical. The patient may be discharged home from our standpoint. We will schedule the patient for dobutamine stress echo as an outpatient. She will follow-up in the office with Dr. Rajan. 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 Patient was seen and examined.
[2016-08-23 17:12] LABS: Glucose,Whole Blood 125 mg/dL (75-99)
[2016-08-23 21:06] LABS: Glucose,Whole Blood 146 mg/dL (75-99)
[2016-08-23] MEDS: MONTELUKAST 10 MG TAB PO SCH (21:07)
[2016-08-24 06:51] LABS: Glucose,Whole Blood 107 mg/dL (75-99)
[2016-08-24] MEDS: INSULIN LISPRO (humaLOG) 300 UNIT/3 ML VIAL SQ SCH ×4 (06:54→21:25)
[2016-08-24 07:06] LABS: Basophils % (A) 0 %; CH 29.9; CHCM 31.2; Eosinophils % (A) 0 %; HCT 44.6 % (34.0-46.0); HDW 2.35; HGB 14.1 gm/dL (11.4-16.0); Hypochromasia Slight; Luc # (Auto) 0.08; Luc % (Auto) 1; Lymphocytes # (A) 1.3 k/uL (1.0-4.8); Lymphocytes % (A) 10 %; MCH 30.4 pg (25.0-35.0); MCHC 31.7 g/dL (31.0-37.0); Mean Platelet Volume 7.8; Monocytes # (A) 0.2 k/uL (0-1.0); Monocytes % (A) 2 %; Neutrophils # (A) 12.1 k/uL (1.3-7.7); Neutrophils % (A) 88 %; RBC 4.64 m/uL (3.80-5.40); WBC 13.7 k/uL (3.8-10.6); WBC (Perox) 14.19
[2016-08-24 07:23] LABS: ALT 149 U/L (9-52); AST 33 U/L (14-36); Alkaline Phosphatase 65 U/L (38-126); Anion Gap 9 mmol/L; Blood Urea Nitrogen 11 mg/dL (7-17); Calcium 9.3 mg/dL (8.4-10.2); Carbon Dioxide 35 mmol/L (22-30); Chloride 98 mmol/L (98-107); Glucose 111 mg/dL (74-99); Non-African American GFR(MDRD) >60 (>60 ml/min/1.73 sqM); Potassium 4.4 mmol/L (3.5-5.1); Sodium 142 mmol/L (137-145); Total Bilirubin 0.6 mg/dL (0.2-1.3); Total Protein 6.4 g/dL (6.3-8.2)
[2016-08-24] MEDS: NICOTINE 14MG/24HR PATCH TRANSDERM SCH (08:12)
[2016-08-24] MEDS: BUTALB/APAP/CAFF 50-325-40MG TAB PO PRN ×4 (08:33→21:11)
[2016-08-24] MEDS: oxyCODONE-APAP 10-325MG 1 EACH TAB PO PRN ×3 (08:34→21:13)
[2016-08-24] MEDS: HEPARIN SODIUM,PORCINE 5,000 UNIT/ML 1 ML VIAL SQ SCH ×3 (08:42→23:23)
[2016-08-24] MEDS: PARoxetine 20 MG TAB PO SCH (08:42)
[2016-08-24] MEDS: PANTOPRAZOLE 40 MG TABLET PO SCH (08:42)
[2016-08-24] MEDS: VERAPAMIL SR 120 MG TABLET.ER PO SCH (08:42)
[2016-08-24] MEDS: GABAPENTIN 400 MG CAP PO SCH ×3 (08:42→21:13)
[2016-08-24] MEDS: LORazepam 1 MG TAB PO PRN ×3 (08:46→21:13)
[2016-08-24] MEDS: BUDESONIDE 1 MG/2 ML NEBU INHALATION SCH ×3 (09:03→20:13)
[2016-08-24] MEDS: ALBUTEROL NEBULIZED 2.5 MG/3 ML INHALATION PRN ×2 (09:04→20:13)
[2016-08-24] MEDS: ONDANSETRON 4 MG/2 ML VIAL IVP PRN ×2 (11:46→18:36)
[2016-08-24 11:50] LABS: Glucose,Whole Blood 209 mg/dL (75-99)
[2016-08-24] MEDS: HYDROCHLOROTHIAZIDE 25 MG TAB PO SCH (11:51)
[2016-08-24] MEDS: ASPIRIN 81 MG CHEW PO SCH (11:51)
[2016-08-24] MEDS: MULTIVITAMINS, THERA 1 EACH TAB PO SCH (11:52)
[2016-08-24] MEDS: CHOLECALCIFEROL 1,000 UNIT TAB PO SCH (11:52)
--- NOTE | 2016-08-24 13:11 | P.PN ---
Subjective This is a 50-year-old -[place] female patient of Dr. Tabares with past medical history of asthma, uterine cancer status post hysterectomy and radiation , fibromyalgia, COPD, gastroesophageal reflux disease, hypertension, osteoarthritis and osteoporosis, MS currently on Copaxone and under the care of Dr. Tyler Chi for which she has an appointment on . Patient states that she had chest pain, headache dizziness and neck pain and has had 2 recent falls at home 1-1/2 days apart. Her balance has been off and she is unable to get up. Headache goes around front and around to the back of her head. She does have history of vertigo as well. She denies history of diabetes. She came into [facility] emergency center and underwent chest x-ray that showed cardiomegaly with mild pulmonary congestion. No consolidation. No overt heart failure. D-dimer was elevated at 2.83 and CTA of the chest showed no evidence of pulmonary embolism. Cardiomegaly. Minimal subsegmental atelectasis at the right lung base. CAT scan of the brain and C-spine showed a negative CAT scan of the brain and mild spondylosis of C5-6. No fracture. Liver enzymes were elevated with AST of 498 and ALT of 593. Acute hepatitis panel was negative. Abdominal ultrasound showed no gallstones or dilated ducts. Small cyst in the left lobe of the liver. Influenza testing a and B were negative. She had mild elevation of her troponins which were 0.090, 0.090 and 0.092. Patient was to be admitted to the selective care unit and consult with cardiology. We have added and consult with her neurologist due to concern for falls and worsening MS as well as headaches. 08/21: Patient has been seen by golf cart attendant and echocardiogram reveals mild mitral regurgitation, mild tricuspid regurgitation, EF 55-60%. They have scheduled her for stress test for tomorrow. Neurology consult is pending. Patient is complaining of headache today and dizziness. IV fluids changed to saline lock. 08/22: Lexiscan stress test has been ordered. We are still waiting for neurology to evaluate. Patient states she is not feeling well enough to go home. She did have some nausea this morning and dizziness. Scopolamine patch started. 08/23: Patient was seen by neurology surgery was recommended for the patient to be started on Solu-Medrol 250 mg IV piggyback every 6 hours for 3 days. 08/24: Patient continues to have insomnia, initially she did not sleep well, she denies any chest pain, she is walking around, she continues to have some numbness in upper or lower extremities. Objective - Vital Signs Vital signs: Vital Signs Temp 97.8 F 08/24/16 08:42 Pulse 68 08/24/16 09:33 Resp 18 08/24/16 08:42 BP 133/77 08/24/16 08:42 Pulse Ox 92 L 08/24/16 08:42 Intake & Output 08/23/16 08/24/16 08/24/16 18:59 06:59 18:59 Intake Total 1042 360 40 Output Total 1150 350 Balance -108 10 40 Weight 102.6 kg Intake: IV 80 160 40 .9 @20 80 160 40 Intake, IV Titration 100 200 Amount methylPREDNISolone SOD 100 200 SUCC 250 mg In Sodium Chloride 0.9% 100 ml @ 100 mls/hr IVPB Q6HR [facility] Rx#:[id number] Oral 862 Output: Urine 1150 350 Other: Voiding Method Toilet Toilet Toilet # Voids 1 1 # Bowel Movements 0 0 - Exam - Constitutional General appearance: Present: average body habitus, no acute distress - EENT Eyes: Present: anicteric sclerae, EOMI, PERRLA, normal appearance. Absent: ptosis, scleral icterus ENT: Present: hearing grossly normal, normal oropharynx. Absent: thrush Ears: bilateral: normal - Neck Neck: Present: normal ROM. Absent: lymphadenopathy, rigidity, stridor, thyromegaly Carotids: bilateral: upstroke normal Thyroid: bilateral: normal size - Respiratory Respiratory: bilateral: diminished, negative: dullness, rales, rhonchi, wheezing , prolonged expiration, prolonged inspiration - Cardiovascular Rhythm: regular Heart sounds: normal: S1, S2 Abnormal Heart Sounds: Present: systolic murmur. Absent: S3 Gallop, S4 Gallop, click - Gastrointestinal General gastrointestinal: Present: normal bowel sounds, soft. Absent: splenomegaly, tenderness, umbilical hernia, ventral hernia - Integumentary Integumentary: Present: normal, normal turgor - Neurologic Neurologic: Present: CNII-XII intact - Musculoskeletal Musculoskeletal: Present: generalized weakness, strength equal bilaterally - Psychiatric Psychiatric: Present: A&O x's 3, appropriate affect, intact judgment & insight - Labs CBC & Chem 7: 08/24/16 06:22 08/24/16 06:22 Labs: Abnormal Lab Results - Last 24 Hours (Table) 08/21/16 08/23/16 08/23/16 Range/Units 06:07 11:52 16:41 WBC (3.8-10.6) k/uL Neutrophils # (1.3-7.7) k/uL Carbon Dioxide (22-30) mmol/L Creatinine (0.52-1.04) mg/dL Glucose (74-99) mg/dL POC Glucose (mg/dL) 116 H 125 H (75-99) mg/dL Hemoglobin A1c 6.3 H (4.2-6.1) % ALT (9-52) U/L 08/23/16 08/24/16 08/24/16 Range/Units 20:27 06:22 06:22 WBC 13.7 H (3.8-10.6) k/uL Neutrophils # 12.1 H (1.3-7.7) k/uL Carbon Dioxide 35 H (22-30) mmol/L Creatinine 0.51 L (0.52-1.04) mg/dL Glucose 111 H (74-99) mg/dL POC Glucose (mg/dL) 146 H (75-99) mg/dL Hemoglobin A1c (4.2-6.1) % ALT 149 H (9-52) U/L 08/24/16 Range/Units 06:28 WBC (3.8-10.6) k/uL Neutrophils # (1.3-7.7) k/uL Carbon Dioxide (22-30) mmol/L Creatinine (0.52-1.04) mg/dL Glucose (74-99) mg/dL POC Glucose (mg/dL) 107 H (75-99) mg/dL Hemoglobin A1c (4.2-6.1) % ALT (9-52) U/L Assessment and Plan Plan: Assessment and Plan Plan: 1. Chest pain with mild elevation of troponins. Cardiology consult requested. Echocardiogram as above. Stress test for tomorrow. 2. Headache, neck pain, dizziness and tinnitus with frequent falls and difficulty with balance with possible Mnire's. Patient was seen by neurology was recommended for the patient was started on Solu-Medrol 250 mg IV piggyback every 6 hours for 3 days. 3. COPD. Continue albuterol nebulizer treatments every 6 hours as needed, Pulmicort 1 mg twice daily. 4. Mild persistent asthma. Continue albuterol nebulizer treatment every 6 hours, Pulmicort 1 mg twice daily, Flonase 2 sprays daily as needed, Singulair 10 mg at bedtime. 5. Hypertension. Continue verapamil 120 mg daily, hydrochlorothiazide 25 mg daily. 6. Multiple sclerosis. Patient is normally on Copaxone 20 mg subcu daily. Continue methocarbamol, Neurontin. Consult with Dr. Chi. 7. Gastroesophageal reflux disease. Patient is normally on Zantac. 8. Recurrent depression and generalized anxiety. Continue Paxil and Ativan. 9. Morbid obesity with BMI of 39. 10. DVT prophylaxis. Heparin subcu. 11. Gastrointestinal prophylaxis. Protonix. 12. Insomnia. will give ativan at HS.
--- NOTE | 2016-08-24 15:42 | P.PN ---
Subjective Principal diagnosis: MS exacerbation/headache Patient is a 50-year-old -[place] female being followed by neurology. Patient of Dr. Tabares and Tyler Egan. Patient has a history of multiple chronic conditions that include hysterectomy, fibromyalgia, COPD, GERD, hypertension, osteoarthritis, osteoporosis, multiple sclerosis and obesity. Patient is currently on Copaxone under the care of Dr. Chi as her neurologist managing her multiple sclerosis. Patient states that she had chest pain, headache and dizziness with neck pain causing her to present to the ED. She had 2 recent falls at home was unable to get up in the last week. Does have a history of vertigo. Patient had chest x-ray showed cardiomegaly with mild pulmonary congestion. No consolidation. Patient also states she's had increased fatigue , disequilibrium, multiple joint pain and intermittent vision changes. Interval update: I did not round on the patient yesterday as there were 2 neurology groups assigned to the patient. It was determined that we would monitor the patient inpatient. Today the patient appears improved. She is approximately 24 hours completed with the 72 hour Solu-Medrol IV infusion. She states her headaches and vision changes have resolved. Her status is overall improving. Objective - Vital Signs Vital signs: Vital Signs Temp 97.8 F 08/24/16 11:45 Pulse 62 08/24/16 11:45 Resp 18 08/24/16 11:45 BP 127/62 08/24/16 11:45 Pulse Ox 96 08/24/16 11:45 Intake & Output 08/23/16 08/24/16 08/24/16 18:59 06:59 18:59 Intake Total 1042 360 462 Output Total 1150 350 500 Balance -108 10 -38 Weight 102.6 kg Intake: IV 80 160 40 .9 @20 80 160 40 Intake, IV Titration 100 200 Amount methylPREDNISolone SOD 100 200 SUCC 250 mg In Sodium Chloride 0.9% 100 ml @ 100 mls/hr IVPB Q6HR [facility] Rx#:[id number] Oral 862 422 Output: Urine 1150 350 500 Other: Voiding Method Toilet Toilet Toilet # Voids 1 1 # Bowel Movements 0 0 - Exam Constitutional: AOx3, cooperative HEENT: NC/AT, no facial asymmetry is seen. neck: Supple, no masses Respiratory: No increased work of breathing Cardiac: Regular rate and Rhythm GI: non tender, non distended Musculoskeletal: Splicer Operator strengths are equal bilaterally 5/5, Lower extremity strengths are equal bilaterally at 5/5. Neurological: CN II-XII in tact, patient was AOx3, speech and language are normal, no unilateralizing weakness, no seizure activity note on physical exam. Sensation was normal. Integementary: no rash, no erythema Psychiatric: mood and affect appropriate - Constitutional General appearance: Present: no acute distress, obese - Labs CBC & Chem 7: 08/24/16 06:22 08/24/16 06:22 Labs: Abnormal Lab Results - Last 24 Hours (Table) 08/23/16 08/23/16 08/24/16 Range/Units 16:41 20:27 06:22 WBC 13.7 H (3.8-10.6) k/uL Neutrophils # 12.1 H (1.3-7.7) k/uL Carbon Dioxide (22-30) mmol/L Creatinine (0.52-1.04) mg/dL Glucose (74-99) mg/dL POC Glucose (mg/dL) 125 H 146 H (75-99) mg/dL ALT (9-52) U/L 08/24/16 08/24/16 08/24/16 Range/Units 06:22 06:28 11:41 WBC (3.8-10.6) k/uL Neutrophils # (1.3-7.7) k/uL Carbon Dioxide 35 H (22-30) mmol/L Creatinine 0.51 L (0.52-1.04) mg/dL Glucose 111 H (74-99) mg/dL POC Glucose (mg/dL) 107 H 209 H (75-99) mg/dL ALT 149 H (9-52) U/L Assessment and Plan (1) Multiple sclerosis exacerbation Status: Acute (2) Obesity Status: Acute (3) Vision changes Status: Acute (4) Disequilibrium Status: Acute Plan: 1. Exacerbation of multiple sclerosis/vision changes/disequilibrium: Patient's headache and dizziness to appear to be related to exacerbation of multiple sclerosis. They are found to be improving. Patient's overall symptoms are declining with regard to her exacerbation. continue Solu-Medrol infusion as ordered. CT of the brain was negative. 2. Obesity: Discussed with the patient her body habitus and weight. Discussed the potential positive results with weight reduction. She states she will consider weight loss in the future. Status: Neurology will continue to follow and provide updates as needed or warranted. Overall patient status is improving. I discussed the patient's pertinent medical information with Dr. Ramirez. He agrees with the plan of care as implemented.
[2016-08-24 17:10] LABS: Glucose,Whole Blood 130 mg/dL (75-99)
[2016-08-24] MEDS ORDERED: LORazepam 2 MG/ML SYRINGE IV STA (19:46)
[2016-08-24 21:10] LABS: Glucose,Whole Blood 158 mg/dL (75-99)
[2016-08-24] MEDS: MONTELUKAST 10 MG TAB PO SCH (21:14)
[2016-08-25 06:01] LABS: Glucose,Whole Blood 145 mg/dL (75-99)
[2016-08-25] MEDS: INSULIN LISPRO (humaLOG) 300 UNIT/3 ML VIAL SQ SCH ×4 (06:01→20:59)
[2016-08-25] MEDS: BUTALB/APAP/CAFF 50-325-40MG TAB PO PRN ×4 (06:26→21:12)
[2016-08-25] MEDS: ONDANSETRON 4 MG/2 ML VIAL IVP PRN ×2 (06:27→12:41)
[2016-08-25 06:32] LABS: Anion Gap 10 mmol/L; Basophils % (A) 0 %; Blood Urea Nitrogen 12 mg/dL (7-17); CH 29.8; CHCM 31.1; Calcium 9.4 mg/dL (8.4-10.2); Carbon Dioxide 35 mmol/L (22-30); Chloride 97 mmol/L (98-107); Eosinophils % (A) 0 %; Glucose 136 mg/dL (74-99); HCT 41.9 % (34.0-46.0); HDW 2.32; HGB 13.3 gm/dL (11.4-16.0); Hypochromasia Slight; Luc # (Auto) 0.07; Luc % (Auto) 0; Lymphocytes # (A) 1.2 k/uL (1.0-4.8); Lymphocytes % (A) 7 %; MCH 30.6 pg (25.0-35.0); MCHC 31.8 g/dL (31.0-37.0); MCV 96.2 fL (80.0-100.0); Mean Platelet Volume 7.9; Monocytes # (A) 0.4 k/uL (0-1.0); Monocytes % (A) 2 %; Neutrophils # (A) 16.4 k/uL (1.3-7.7); Neutrophils % (A) 91 %; Non-African American GFR(MDRD) >60 (>60 ml/min/1.73 sqM); Potassium 4.2 mmol/L (3.5-5.1); RBC 4.35 m/uL (3.80-5.40); Sodium 142 mmol/L (137-145); WBC 18.1 k/uL (3.8-10.6); WBC (Perox) 19.08
[2016-08-25] MEDS: BUDESONIDE 1 MG/2 ML NEBU INHALATION SCH ×2 (08:39→19:22)
[2016-08-25] MEDS: HEPARIN SODIUM,PORCINE 5,000 UNIT/ML 1 ML VIAL SQ SCH ×2 (08:48→16:42)
[2016-08-25] MEDS: PANTOPRAZOLE 40 MG TABLET PO SCH (08:48)
[2016-08-25] MEDS: GABAPENTIN 400 MG CAP PO SCH ×3 (08:48→20:58)
[2016-08-25] MEDS: ASPIRIN 81 MG CHEW PO SCH (08:48)
[2016-08-25] MEDS: NICOTINE 14MG/24HR PATCH TRANSDERM SCH (08:48)
[2016-08-25] MEDS: VERAPAMIL SR 120 MG TABLET.ER PO SCH (08:48)
[2016-08-25] MEDS: oxyCODONE-APAP 10-325MG 1 EACH TAB PO PRN ×3 (08:59→23:11)
[2016-08-25] MEDS: PARoxetine 20 MG TAB PO SCH (08:59)
[2016-08-25] MEDS: LORazepam 1 MG TAB PO PRN ×2 (09:06→16:44)
[2016-08-25 11:30] LABS: Glucose,Whole Blood 199 mg/dL (75-99)
[2016-08-25] MEDS: HYDROCHLOROTHIAZIDE 25 MG TAB PO SCH (11:55)
[2016-08-25] MEDS: CHOLECALCIFEROL 1,000 UNIT TAB PO SCH (11:55)
[2016-08-25] MEDS: MULTIVITAMINS, THERA 1 EACH TAB PO SCH (11:55)
--- NOTE | 2016-08-25 13:04 | P.PN ---
Subjective This is a 50-year-old -[place]and[place] female with a known history of asthma, nicotine dependence, COPD, hypertension, uterine cancer with prior radiation, presented to the hospital with symptoms of left-sided chest pain with associated headache and neck pain. The patient underwent a Lexiscan Cardiolite , which was reviewed by Dr. Rajan, felt to be negative for any reversible ischemia. Currently being followed by neurology. Objective - Vital Signs Vital signs: Vital Signs Temp 97.7 F 08/25/16 12:26 Pulse 64 08/25/16 12:26 Resp 18 08/25/16 12:26 BP 138/78 08/25/16 12:26 Pulse Ox 94 L 08/25/16 12:26 Intake & Output 08/24/16 08/25/16 08/25/16 18:59 06:59 18:59 Intake Total 902 460 580 Output Total 500 500 Balance 402 -40 580 Weight 102.3 kg Intake: IV 180 260 .9 @20 180 260 Intake, IV Titration 100 200 100 Amount methylPREDNISolone SOD 100 200 100 SUCC 250 mg In Sodium Chloride 0.9% 100 ml @ 100 mls/hr IVPB Q6HR [facility] Rx#:[id number] Oral 622 480 Output: Urine 500 500 Other: Voiding Method Toilet Toilet Toilet # Voids 1 0 - Exam PHYSICAL EXAMINATION: HEENT: Head is atraumatic, normocephalic. Pupils equal, round. Neck is supple. There is no elevated jugular venous pressure. HEART EXAMINATION: Heart S1, S2 normal. No murmur or gallop heard. CHEST EXAMINATION: Lungs are clear to auscultation and precussion. No chest wall tenderness is noted on palpation or with deep breathing. ABDOMEN: Soft, nontender. Bowel sounds are heard. No organomegaly noted. EXTREMITIES: 2+ peripheral pulses with no evidence of peripheral edema and no calf tenderness noted. NEUROLOGIC patient is awake, alert and oriented -3. . - Labs CBC & Chem 7: 08/25/16 05:49 08/25/16 05:49 Labs: Abnormal Lab Results - Last 24 Hours (Table) 08/24/16 08/24/16 08/25/16 Range/Units 16:41 20:45 05:49 WBC 18.1 H (3.8-10.6) k/uL Neutrophils # 16.4 H (1.3-7.7) k/uL Chloride (98-107) mmol/L Carbon Dioxide (22-30) mmol/L Glucose (74-99) mg/dL POC Glucose (mg/dL) 130 H 158 H (75-99) mg/dL 08/25/16 08/25/16 08/25/16 Range/Units 05:49 05:59 11:24 WBC (3.8-10.6) k/uL Neutrophils # (1.3-7.7) k/uL Chloride 97 L (98-107) mmol/L Carbon Dioxide 35 H (22-30) mmol/L Glucose 136 H (74-99) mg/dL POC Glucose (mg/dL) 145 H 199 H (75-99) mg/dL Assessment and Plan Plan: Assessment and plan #1 chest pain, atypical in nature. EKG shows abnormal sinus rhythm with occasional PVC, anterior lateral ST-T wave changes. Troponins 0.09, 0.09, 0.09 , not a typical pattern for acute coronary syndrome with no significant rise and fall. CTA of the chest was negative for pulmonary embolism. Lexiscan stress test negative for any reversible ischemia. #2 hypertension #3 symptoms of headache and dizziness with frequent falls and difficulty with balance. Neurology has been consulted. Could be secondary to MS #4 asthma #6 multiple sclerosis #7 GERD #8 abnormal liver enzymes, hepatitis panel negative, abdominal ultrasound did not reveal any significant findings. Plan Cardiology's perspective, patient may be able to be discharged home once cleared by the primary and by neurology. We will make her a follow-up appointment in the office and also schedule her for outpatient dobutamine echocardiographic study. DNP note has been reviewed, I agree with a documented findings and plan of care. Patient was seen and examined.
--- NOTE | 2016-08-25 13:38 | P.PN ---
Subjective This is a 50-year-old -[place] female patient of Dr. Tabares with past medical history of asthma, uterine cancer status post hysterectomy and radiation , fibromyalgia, COPD, gastroesophageal reflux disease, hypertension, osteoarthritis and osteoporosis, MS currently on Copaxone and under the care of Dr. Tyler Chi for which she has an appointment on . Patient states that she had chest pain, headache dizziness and neck pain and has had 2 recent falls at home 1-1/2 days apart. Her balance has been off and she is unable to get up. Headache goes around front and around to the back of her head. She does have history of vertigo as well. She denies history of diabetes. She came into [facility] emergency center and underwent chest x-ray that showed cardiomegaly with mild pulmonary congestion. No consolidation. No overt heart failure. D-dimer was elevated at 2.83 and CTA of the chest showed no evidence of pulmonary embolism. Cardiomegaly. Minimal subsegmental atelectasis at the right lung base. CAT scan of the brain and C-spine showed a negative CAT scan of the brain and mild spondylosis of C5-6. No fracture. Liver enzymes were elevated with AST of 498 and ALT of 593. Acute hepatitis panel was negative. Abdominal ultrasound showed no gallstones or dilated ducts. Small cyst in the left lobe of the liver. Influenza testing a and B were negative. She had mild elevation of her troponins which were 0.090, 0.090 and 0.092. Patient was to be admitted to the selective care unit and consult with cardiology. We have added and consult with her neurologist due to concern for falls and worsening MS as well as headaches. 08/21: Patient has been seen by spout liner helper and echocardiogram reveals mild mitral regurgitation, mild tricuspid regurgitation, EF 55-60%. They have scheduled her for stress test for tomorrow. Neurology consult is pending. Patient is complaining of headache today and dizziness. IV fluids changed to saline lock. 08/22: Lexiscan stress test has been ordered. We are still waiting for neurology to evaluate. Patient states she is not feeling well enough to go home. She did have some nausea this morning and dizziness. Scopolamine patch started. 08/23: Patient was seen by neurology surgery was recommended for the patient to be started on Solu-Medrol 250 mg IV piggyback every 6 hours for 3 days. 08/24: Patient continues to have insomnia, initially she did not sleep well, she denies any chest pain, she is walking around, she continues to have some numbness in upper or lower extremities. 08/25: Patient did sleep better last night after Ativan. She states she still has a headache but is not severe. She feels that her gait is still wobbly and she has shooting pain in her hip and spine. She is continued on high-dose steroids complete 72 hours. Anticipate possible discharge tomorrow. Lexiscan stress test was negative for reversible ischemia. Cardiology recommends follow- up in the office to plan for an outpatient dobutamine echocardiogram. Objective - Vital Signs Vital signs: Vital Signs Temp 97.6 F 08/25/16 09:06 Pulse 59 L 08/25/16 09:06 Resp 18 08/25/16 09:06 BP 141/76 08/25/16 09:06 Pulse Ox 92 L 08/25/16 09:06 Intake & Output 08/24/16 08/25/16 08/25/16 18:59 06:59 18:59 Intake Total 902 460 100 Output Total 500 500 Balance 402 -40 100 Weight 102.3 kg Intake: IV 180 260 .9 @20 180 260 Intake, IV Titration 100 200 100 Amount methylPREDNISolone SOD 100 200 100 SUCC 250 mg In Sodium Chloride 0.9% 100 ml @ 100 mls/hr IVPB Q6HR [facility] Rx#:[id number] Oral 622 Output: Urine 500 500 Other: Voiding Method Toilet Toilet Toilet # Voids 1 - Exam General appearance: Present: average body habitus, no acute distress - EENT Eyes: Present: anicteric sclerae, EOMI, PERRLA, normal appearance. Absent: ptosis, scleral icterus ENT: Present: hearing grossly normal, normal oropharynx. Absent: thrush Ears: bilateral: normal - Neck Neck: Present: normal ROM. Absent: lymphadenopathy, rigidity, stridor, thyromegaly Carotids: bilateral: upstroke normal Thyroid: bilateral: normal size - Respiratory Respiratory: bilateral: diminished, negative: dullness, rales, rhonchi, wheezing , prolonged expiration, prolonged inspiration - Cardiovascular Rhythm: regular Heart sounds: normal: S1, S2 Abnormal Heart Sounds: Present: systolic murmur. Absent: S3 Gallop, S4 Gallop, click - Gastrointestinal General gastrointestinal: Present: normal bowel sounds, soft. Absent: splenomegaly, tenderness, umbilical hernia, ventral hernia - Integumentary Integumentary: Present: normal, normal turgor - Neurologic Neurologic: Present: CNII-XII intact - Musculoskeletal Musculoskeletal: Present: generalized weakness, strength equal bilaterally - Psychiatric Psychiatric: Present: A&O x's 3, appropriate affect, intact judgment & insight - Labs CBC & Chem 7: 08/25/16 05:49 08/25/16 05:49 Labs: Abnormal Lab Results - Last 24 Hours (Table) 08/24/16 08/24/16 08/24/16 Range/Units 11:41 16:41 20:45 WBC (3.8-10.6) k/uL Neutrophils # (1.3-7.7) k/uL Chloride (98-107) mmol/L Carbon Dioxide (22-30) mmol/L Glucose (74-99) mg/dL POC Glucose (mg/dL) 209 H 130 H 158 H (75-99) mg/dL 08/25/16 08/25/16 08/25/16 Range/Units 05:49 05:49 05:59 WBC 18.1 H (3.8-10.6) k/uL Neutrophils # 16.4 H (1.3-7.7) k/uL Chloride 97 L (98-107) mmol/L Carbon Dioxide 35 H (22-30) mmol/L Glucose 136 H (74-99) mg/dL POC Glucose (mg/dL) 145 H (75-99) mg/dL Assessment and Plan Plan: 1. Chest pain with mild elevation of troponins. Cardiology consult requested. Echocardiogram as above. Stress test as above. 2. Headache, neck pain, dizziness and tinnitus with frequent falls and difficulty with balance due to MS exacerbation Patient was seen by neurology was recommended for the patient was started on Solu-Medrol 250 mg IV piggyback every 6 hours for 3 days. 3. COPD. Continue albuterol nebulizer treatments every 6 hours as needed, Pulmicort 1 mg twice daily. 4. Mild persistent asthma. Continue albuterol nebulizer treatment every 6 hours, Pulmicort 1 mg twice daily, Flonase 2 sprays daily as needed, Singulair 10 mg at bedtime. 5. Hypertension. Continue verapamil 120 mg daily, hydrochlorothiazide 25 mg daily. 6. Multiple sclerosis. Patient is normally on Copaxone 20 mg subcu daily. Continue methocarbamol, Neurontin. Consult with Dr. Chi. 7. Gastroesophageal reflux disease. Patient is normally on Zantac. 8. Recurrent depression and generalized anxiety. Continue Paxil and Ativan. 9. Morbid obesity with BMI of 39. 10. DVT prophylaxis. Heparin subcu. 11. Gastrointestinal prophylaxis. Protonix. 12. Insomnia. will give ativan at HS. Discharge plan: Home Impression and plan of care have been directed as dictated by the signing physician. Elaine Nguyen nurse practitioner acting as scribe for signing physician. Time with Patient: Greater than 30
[2016-08-25 17:19] LABS: Glucose,Whole Blood 119 mg/dL (75-99)
[2016-08-25] MEDS: ALBUTEROL NEBULIZED 2.5 MG/3 ML INHALATION PRN (19:22)
[2016-08-25] MEDS ORDERED: LORazepam 2 MG/ML SYRINGE IV STA (20:24)
--- NOTE | 2016-08-25 20:41 | P.PN ---
Subjective Principal diagnosis: MS exacerbation/headache Patient is a 50-year-old -[place] female being followed by neurology. Patient of Dr. Tabares and Tyler Egan. Patient has a history of multiple chronic conditions that include hysterectomy, fibromyalgia, COPD, GERD, hypertension, osteoarthritis, osteoporosis, multiple sclerosis and obesity. Patient is currently on Copaxone under the care of Dr. Chi as her neurologist managing her multiple sclerosis. Patient states that she had chest pain, headache and dizziness with neck pain causing her to present to the ED. She had 2 recent falls at home was unable to get up in the last week. Does have a history of vertigo. Patient had chest x-ray showed cardiomegaly with mild pulmonary congestion. No consolidation. Patient also states she's had increased fatigue , disequilibrium, multiple joint pain and intermittent vision changes. Interval update: 08/24/16:I did not round on the patient yesterday as there were 2 neurology groups assigned to the patient. It was determined that we would monitor the patient inpatient. Today the patient appears improved. She is approximately 24 hours completed with the 72 hour Solu-Medrol IV infusion. She states her headaches and vision changes have resolved. Her status is overall improving. 08/25/16: Did run on the patient today and noted that the patient has stated that she has had decreased head pain, neck pain and joint pain since the start of IV steroid infusion. She is progressing towards baseline. She notes no new deficits or complaints. Patient is alert and oriented 3 seated in bed in no acute distress. Objective - Vital Signs Vital signs: Vital Signs Temp 97.4 F L 08/25/16 20:02 Pulse 64 08/25/16 20:02 Resp 16 08/25/16 20:02 BP 129/62 08/25/16 20:02 Pulse Ox 95 08/25/16 20:02 Intake & Output 08/25/16 08/25/16 08/26/16 06:59 18:59 06:59 Intake Total 460 820 Output Total 500 Balance -40 820 Weight 102.3 kg Intake: IV 260 .9 @20 260 Intake, IV Titration 200 100 Amount methylPREDNISolone SOD 200 100 SUCC 250 mg In Sodium Chloride 0.9% 100 ml @ 100 mls/hr IVPB Q6HR ANDREAS Rx#:[id number] Oral 720 Output: Urine 500 Other: Voiding Method Toilet Toilet Toilet # Voids 1 1 - Exam Constitutional: AOx3, cooperative HEENT: NC/AT, no facial asymmetry is seen. neck: Supple, no masses Respiratory: No increased work of breathing Cardiac: Regular rate and Rhythm GI: non tender, non distended Musculoskeletal: Cosmetic Manager strengths are equal bilaterally 5/5, Lower extremity strengths are equal bilaterally at 5/5. Neurological: CN II-XII in tact, patient was AOx3, speech and language are normal, no unilateralizing weakness, no seizure activity note on physical exam. Sensation was normal. Integementary: no rash, no erythema Psychiatric: mood and affect appropriate - Labs CBC & Chem 7: 08/25/16 05:49 08/25/16 05:49 Labs: Abnormal Lab Results - Last 24 Hours (Table) 08/24/16 08/25/16 08/25/16 Range/Units 20:45 05:49 05:49 WBC 18.1 H (3.8-10.6) k/uL Neutrophils # 16.4 H (1.3-7.7) k/uL Chloride 97 L (98-107) mmol/L Carbon Dioxide 35 H (22-30) mmol/L Glucose 136 H (74-99) mg/dL POC Glucose (mg/dL) 158 H (75-99) mg/dL 08/25/16 08/25/16 08/25/16 Range/Units 05:59 11:24 17:00 WBC (3.8-10.6) k/uL Neutrophils # (1.3-7.7) k/uL Chloride (98-107) mmol/L Carbon Dioxide (22-30) mmol/L Glucose (74-99) mg/dL POC Glucose (mg/dL) 145 H 199 H 119 H (75-99) mg/dL Assessment and Plan (1) Multiple sclerosis exacerbation Status: Acute (2) Obesity Status: Acute (3) Vision changes Status: Acute (4) Disequilibrium Status: Acute Plan: 1. Exacerbation of multiple sclerosis/vision changes/disequilibrium: Patient's headache and dizziness to appear to be related to exacerbation of multiple sclerosis. They are found to be improving since rounding yesterday. Patient's overall symptoms are declining with regard to her exacerbation. Continue Solu-Medrol infusion as ordered. CT of the brain was negative. 2. Obesity: Discussed with the patient her body habitus and weight. Discussed the potential positive results with weight reduction. She states she will consider weight loss in the future. Status: Neurology will continue to follow on as-needed basis. On discharge, the patient should be notified to contact our office within 10-14 days her with her neurologist. I discussed the patient's pertinent medical information with Dr. Ramirez. He agrees with the plan of care as implemented.
[2016-08-25 20:43] LABS: Glucose,Whole Blood 221 mg/dL (75-99)
[2016-08-25] MEDS: MONTELUKAST 10 MG TAB PO SCH (20:59)
[2016-08-26] MEDS: HEPARIN SODIUM,PORCINE 5,000 UNIT/ML 1 ML VIAL SQ SCH ×3 (00:29→15:10)
[2016-08-26] MEDS: LORazepam 1 MG TAB PO PRN ×3 (00:35→12:35)
[2016-08-26] MEDS: BUTALB/APAP/CAFF 50-325-40MG TAB PO PRN ×5 (04:29→21:37)
[2016-08-26 06:04] LABS: Glucose,Whole Blood 142 mg/dL (75-99)
[2016-08-26 06:45] LABS: CH 29.6; HCT 40.6 % (34.0-46.0); HGB 13.1 gm/dL (11.4-16.0); Hypochromasia Slight; MCH 30.8 pg (25.0-35.0); MCHC 32.2 g/dL (31.0-37.0); MCV 95.9 fL (80.0-100.0); Mean Platelet Volume 8.1; RBC 4.24 m/uL (3.80-5.40); RDW 13.9 % (11.5-15.5)
[2016-08-26] MEDS: INSULIN LISPRO (humaLOG) 300 UNIT/3 ML VIAL SQ SCH ×4 (06:48→20:44)
[2016-08-26 06:55] LABS: ALT 112 U/L (9-52); AST 27 U/L (14-36); Alkaline Phosphatase 67 U/L (38-126); Anion Gap 8 mmol/L; Blood Urea Nitrogen 13 mg/dL (7-17); Calcium 9.1 mg/dL (8.4-10.2); Carbon Dioxide 34 mmol/L (22-30); Chloride 99 mmol/L (98-107); Glucose 147 mg/dL (74-99); Non-African American GFR(MDRD) >60 (>60 ml/min/1.73 sqM); Sodium 141 mmol/L (137-145); Total Bilirubin 0.5 mg/dL (0.2-1.3); Total Protein 6.1 g/dL (6.3-8.2)
[2016-08-26] MEDS: VERAPAMIL SR 120 MG TABLET.ER PO SCH (08:29)
[2016-08-26] MEDS: PARoxetine 20 MG TAB PO SCH (08:29)
[2016-08-26] MEDS: NICOTINE 14MG/24HR PATCH TRANSDERM SCH ×2 (08:29→12:29)
[2016-08-26] MEDS: ASPIRIN 81 MG CHEW PO SCH (08:29)
[2016-08-26] MEDS: GABAPENTIN 400 MG CAP PO SCH ×3 (08:29→21:37)
[2016-08-26] MEDS: PANTOPRAZOLE 40 MG TABLET PO SCH (08:29)
[2016-08-26] MEDS: oxyCODONE-APAP 10-325MG 1 EACH TAB PO PRN ×3 (08:36→21:36)
[2016-08-26] MEDS: ONDANSETRON 4 MG/2 ML VIAL IVP PRN ×2 (08:37→20:59)
[2016-08-26] MEDS: ALBUTEROL NEBULIZED 2.5 MG/3 ML INHALATION PRN (08:53)
[2016-08-26] MEDS: BUDESONIDE 1 MG/2 ML NEBU INHALATION SCH ×2 (08:53→21:40)
[2016-08-26] MEDS ORDERED: SCOPOLAMINE 1.5MG/72HR PATCH TRANSDERM STA (09:20)
[2016-08-26 12:00] LABS: Glucose,Whole Blood 203 mg/dL (75-99)
--- NOTE | 2016-08-26 12:10 | P.DS ---
Providers Date of admission: 08/19/16 21:47 Expected date of discharge: 08/26/16 Attending physician: Zan Minor Consults: 08/20/16 11:28 Consult Physician Routine Consulting Provider: Anton Rajan Consult Reason/Comments: elevated trop, room 9 in [facility] Do you want consulting provider notified?: Yes 08/20/16 11:34 Consult Physician Routine Consulting Provider: Linda Chi Consult Reason/Comments: MS, 2 falls Do you want consulting provider notified?: Yes Primary care physician: Kilo Tabares [facility] Course: This is a 50-year-old -[place] female patient of Dr. Tabares with past medical history of asthma, uterine cancer status post hysterectomy and radiation , fibromyalgia, COPD, gastroesophageal reflux disease, hypertension, osteoarthritis and osteoporosis, MS currently on Copaxone and under the care of Dr. Tyler Chi for which she has an appointment on . Patient states that she had chest pain, headache dizziness and neck pain and has had 2 recent falls at home 1-1/2 days apart. Her balance has been off and she is unable to get up. Headache goes around front and around to the back of her head. She does have history of vertigo as well. She denies history of diabetes. She came into [facility] emergency center and underwent chest x-ray that showed cardiomegaly with mild pulmonary congestion. No consolidation. No overt heart failure. D-dimer was elevated at 2.83 and CTA of the chest showed no evidence of pulmonary embolism. Cardiomegaly. Minimal subsegmental atelectasis at the right lung base. CAT scan of the brain and C-spine showed a negative CAT scan of the brain and mild spondylosis of C5-6. No fracture. Liver enzymes were elevated with AST of 498 and ALT of 593. Acute hepatitis panel was negative. Abdominal ultrasound showed no gallstones or dilated ducts. Small cyst in the left lobe of the liver. Influenza testing a and B were negative. She had mild elevation of her troponins which were 0.090, 0.090 and 0.092. Patient was to be admitted to the selective care unit and consult with cardiology. We have added and consult with her neurologist due to concern for falls and worsening MS as well as headaches. 08/21: Patient has been seen by manufacturing industrial engineer and echocardiogram reveals mild mitral regurgitation, mild tricuspid regurgitation, EF 55-60%. They have scheduled her for stress test for tomorrow. Neurology consult is pending. Patient is complaining of headache today and dizziness. IV fluids changed to saline lock. 08/22: Lexiscan stress test has been ordered. We are still waiting for neurology to evaluate. Patient states she is not feeling well enough to go home. She did have some nausea this morning and dizziness. Scopolamine patch started. 08/23: Patient was seen by neurology surgery was recommended for the patient to be started on Solu-Medrol 250 mg IV piggyback every 6 hours for 3 days. 08/24: Patient continues to have insomnia, initially she did not sleep well, she denies any chest pain, she is walking around, she continues to have some numbness in upper or lower extremities. 08/25: Patient did sleep better last night after Ativan. She states she still has a headache but is not severe. She feels that her gait is still wobbly and she has shooting pain in her hip and spine. She is continued on high-dose steroids complete 72 hours. Anticipate possible discharge tomorrow. Lexiscan stress test was negative for reversible ischemia. Cardiology recommends follow- up in the office to plan for an outpatient dobutamine echocardiogram. 08/26: Patient has completed her course of high-dose Solu-Medrol. She is complaining of some dizziness for which scopolamine will be given prior to her discharge and prescription provided. Patient will be discharged home today in stable condition. Discharge Diagnoses: 1. Chest pain with mild elevation of troponins. 2. Headache, neck pain, dizziness and tinnitus with frequent falls and difficulty with balance due to MS exacerbation. 3. COPD. 4. Mild persistent asthma. 5. Hypertension. 6. Multiple sclerosis. 7. Gastroesophageal reflux disease. 8. Recurrent depression and generalized anxiety. 9. Morbid obesity with BMI of 39. 10. Insomnia Discharge plan: Home with [facility] Impression and plan of care have been directed as dictated by the signing physician. Elaine Nguyen nurse practitioner acting as scribe for signing physician. CC: Dr. Kilo Tabares Patient Condition at Discharge: Good Plan - Discharge Summary New Discharge Prescriptions: Butalb/APAP/Caff 50-325-40Mg [Fioricet 50-325-40] 1 tab PO Q4H PRN #20 tab PRN Reason: Migraine Headache Nicotine 14Mg/24Hr Patch [Habitrol] 1 patch TRANSDERM DAILY #30 patch Scopolamine 1.5MG/72Hr Patch [TransDerm Scop] 1 patch TRANSDERM Q72H #3 patch Discharge Medication List Albuterol Inhaler [Ventolin Hfa Inhaler] 2 puff INHALATION RT-Q6H PRN 02/20/14 [ History] Aspirin 81 mg PO DAILY 02/20/14 [History] Cholecalciferol [Vitamin D3] 1,000 units PO DAILY 02/20/14 [History] Fluticasone Propionate [Flonase] 2 spray EA NOSTRIL DAILY PRN 02/20/14 [History] Hydrochlorothiazide 25 mg PO DAILY 02/20/14 [History] LORazepam [Ativan] 1 mg PO TID PRN 02/20/14 [History] Meclizine [Antivert] 25 mg PO TID PRN 02/20/14 [History] Methocarbamol 500 mg PO TID PRN 02/20/14 [History] Montelukast [Singulair] 10 mg PO HS 02/20/14 [History] Multivit with Calcium,Iron,Min [Women's Daily Multivitamin] 1 tab PO DAILY 02/20 [History] PARoxetine HCL [Paxil] 40 mg PO DAILY 02/20/14 [History] Verapamil HCl 120 mg PO DAILY 02/20/14 [History] oxyCODONE-APAP 10-325MG [Percocet 10-325 mg] 1 tab PO Q6HR PRN 02/20/14 [History ] Beclomethasone Dipropionate [Qvar 80 mcg] 2 puff INHALATION RT-BID 08/19/16 [ History] Gabapentin [Neurontin] 1,200 mg PO TID 08/19/16 [History] Ranitidine HCl [Zantac] 150 mg PO BID 08/19/16 [History] Glatiramer Acetate [Copaxone] 20 mg SQ DAILY 08/20/16 [History] Butalb/APAP/Caff 50-325-40Mg [Fioricet 50-325-40] 1 tab PO Q4H PRN #20 tab 08/22 [Rx] Nicotine 14Mg/24Hr Patch [Habitrol] 1 patch TRANSDERM DAILY #30 patch 08/22/16 [ Rx] Scopolamine 1.5MG/72Hr Patch [TransDerm Scop] 1 patch TRANSDERM Q72H #3 patch [Rx] Follow up Appointment(s)/Referral(s): [facility], [NON-STAFF] - Linda Chi MD [STAFF PHYSICIAN] - 1 Week (The office will call you with appointment.) Kilo Tabares MD [Primary Care Provider] - 09/01/16 4:00 pm Anton Rajan MD [STAFF PHYSICIAN] - 09/02/16 9:45 am Patient Instructions/Handouts: Multiple Sclerosis (DC), Cardiac Stress Test (DC ) Discharge Disposition: HOME WITH HOME HEALTH SERVICES
[2016-08-26] MEDS: CHOLECALCIFEROL 1,000 UNIT TAB PO SCH (12:34)
[2016-08-26] MEDS: HYDROCHLOROTHIAZIDE 25 MG TAB PO SCH (12:34)
[2016-08-26] MEDS: MULTIVITAMINS, THERA 1 EACH TAB PO SCH (12:34)
[2016-08-26 14:08] VITALS: BMI 41.3
[2016-08-26 17:15] LABS: Glucose,Whole Blood 132 mg/dL (75-99)
[2016-08-26 19:43] VITALS: RESP 16
[2016-08-26 20:40] LABS: Glucose,Whole Blood 155 mg/dL (75-99)
[2016-08-26] MEDS: MONTELUKAST 10 MG TAB PO SCH (20:44)
[2016-08-26 23:38] VITALS: BP 156/70; PULSE 53; TEMP 97.1
[2016-08-26 23:58] LABS: Glucose,Whole Blood 154 mg/dL (75-99)
== END 2016-08-26 20:30 | disposition home health service (06) | DRG 59 ==
LOC: EC 17:04 → 6SEL 21:47
PROVIDERS: ADMIT Internal Medicine Geriatric Medicine; ATTEND Internal Medicine Geriatric Medicine
DX: G35 Multiple sclerosis (principal); F33.9 Major depressive disorder, recurrent, unspecified; K76.89 Other specified diseases of liver; R07.9 Chest pain, unspecified; E66.01 Morbid (severe) obesity due to excess calories; I08.1 Rheumatic disorders of both mitral and tricuspid valves; I10 Essential (primary) hypertension; F17.210 Nicotine dependence, cigarettes, uncomplicated; F41.1 Generalized anxiety disorder; G47.00 Insomnia, unspecified; I49.3 Ventricular premature depolarization; J44.9 Chronic obstructive pulmonary disease, unspecified; J45.30 Mild persistent asthma, uncomplicated; K21.9 Gastro-esophageal reflux disease without esophagitis; M19.90 Unspecified osteoarthritis, unspecified site; M79.7 Fibromyalgia; M81.0 Age-related osteoporosis without current pathological fracture; R74.8 Abnormal levels of other serum enzymes; Z68.39 Body mass index [BMI] 39.0-39.9, adult; Z79.82 Long term (current) use of aspirin; Z79.899 Other long term (current) drug therapy; Z85.42 Personal history of malignant neoplasm of other parts of uterus; Z88.0 Allergy status to penicillin; Z82.49 Family history of ischemic heart disease and other diseases of the circulatory system
CPT/HCPCS: 36415; 70450; 71020; 71275; 72125; 76705; 78452; 80048; 80053; 80074; 82150; 82550; 82553; 83036; 83605; 83690; 83735; 84132; 84484; 85025; 85027; 85379; 85610; 85730; 87040; 87502; 93005; 93017; 93306; 94640; 94760; 96361; 96365; 96366; 99285

== ENCOUNTER → 2016-09-27 | Outpatient (CLI) | payer OTHER ==
--- NOTE | 2016-09-27 11:03 | MR ---
MR brain with and without contrast HISTORY: G 35, MS Multiplanar multisequence imaging obtained through the brain, postcontrast images following 20 cc Mul tiHance IV Correlation to previous exam 16 May 2014 There is no restricted diffusion. No hemorrhage or hydrocephalus. Nonspecific foci of demyelination i n the deep white matter are again noted and are essentially stable. There is no enhancement. Increase d signal again noted within the chioma as on prior exam on T2 and inversion recovery sequences. Corpus callosum, pituitary, cervical medullary junction, cerebellopontine angles are unremarkable. Inflammat ory change present in the mastoid air cells on the right. Orbits show symmetric appearance. Normal va scular enhancement is present. IMPRESSION: Stable exam. Demyelinating disease changes are stable. Consider mastoiditis.
== END | disposition home or self-care (01) ==
LOC: RADMRIMAIN 09:20
PROVIDERS: ATTEND Psychiatry & Neurology Pain Medicine
DX: G37.9 Demyelinating disease of central nervous system, unspecified (principal); H70.90 Unspecified mastoiditis, unspecified ear; M54.2 Cervicalgia
CPT/HCPCS: 70553; A9577

== ENCOUNTER → 2017-03-09 | Outpatient (CLI) | payer MEDICARE, OTHER ==
--- NOTE | 2017-03-09 12:40 | FL ---
EXAMINATION TYPE: FL barium swallow DATE OF EXAM: 03/09/2017 CLINICAL HISTORY: Dysphagia TECHNIQUE: A double contrast esophagram is performed utilizing air and barium. A total of 1 minute and 28 seconds of fluoroscopy time were used utilized with 30 images saved. COMPARISON: None FINDINGS: The esophagus shows normal motility and emptying into the stomach. No evidence of hiatal h ernia or stricture noted. No significant gastroesophageal reflux was seen during real time performanc e of this study. IMPRESSION: No significant abnormality is seen to account for patient's symptoms. No evidence of st ricture, obstruction, mucosal irregularity, hiatal hernia, or significant gastroesophageal reflux.
== END | disposition home or self-care (01) ==
LOC: RADFLMAIN 10:09
PROVIDERS: ATTEND Otolaryngology
DX: R13.10 Dysphagia, unspecified (principal)
CPT/HCPCS: 74220

== ENCOUNTER 2017-10-02 11:06 | Observation (INO) | payer MEDICARE, OTHER ==
[2017-10-02] MEDS ORDERED: METOCLOPRAMIDE 5 MG/ML 2 ML VIAL IVP STA (11:35)
[2017-10-02] MEDS ORDERED: MORPHINE SULFATE 2 MG/ML SYRINGE IV STA (11:37)
--- NOTE | 2017-10-02 11:38 | ED ---
General Adult HPI - General Chief complaint: Chest Pain Stated complaint: Headache Time Seen by Provider: 10/02/17 11:23 Source: patient, EMS, RN notes reviewed, old records reviewed Mode of arrival: EMS Limitations: no limitations - History of Present Illness Initial comments: 52-year-old female past medical history of COPD and MS presents for evaluation of headache. Patient states that her headache began approximately one hour prior to presentation. It was sudden in onset. She states it is all across her head, describes it as a sharp pain. She also complains of some chest pain which has been present for the past 3 days. This is substernal. She states it is tender to the touch. She is on home oxygen secondary to her COPD. Denies abdominal pain. She has had no significant vomiting or diarrhea. She has had decreased appetite for the past one week. No fever or chills. No lower extremity pain or swelling. - Related Data Home Medications Medication Instructions Recorded Confirmed Albuterol Inhaler [Ventolin Hfa 2 puff INHALATION RT-Q6H PRN 02/20/14 10/02/17 Inhaler] Aspirin 81 mg PO DAILY 02/20/14 10/02/17 Cholecalciferol [Vitamin D3] 1,000 units PO DAILY 02/20/14 10/02/17 Fluticasone Propionate [Flonase] 2 spray EA NOSTRIL DAILY PRN 02/20/14 10/02/17 LORazepam [Ativan] 1 mg PO TID PRN 02/20/14 10/02/17 Meclizine [Antivert] 25 mg PO TID PRN 02/20/14 10/02/17 Methocarbamol 500 mg PO Q6H PRN 02/20/14 10/02/17 Montelukast [Singulair] 10 mg PO HS 02/20/14 10/02/17 Multivit with Calcium,Iron,Min 1 tab PO DAILY 02/20/14 10/02/17 [Women's Daily Multivitamin] PARoxetine HCL [Paxil] 40 mg PO DAILY 02/20/14 10/02/17 Verapamil HCl 120 mg PO DAILY 02/20/14 10/02/17 Beclomethasone Dipropionate [Qvar 2 puff INHALATION RT-BID 08/19/16 10/02/17 80 mcg] Gabapentin [Neurontin] 1,200 mg PO TID 08/19/16 10/02/17 Ranitidine HCl [Zantac] 150 mg PO BID 08/19/16 10/02/17 Albuterol Nebulized [Ventolin 2.5 mg INHALATION RT-QID 03/25/17 10/02/17 Nebulized] Budesonide-Formot 160-4.5 Mcg 2 puff INHALATION RT-BID 03/25/17 10/02/17 [Symbicort 160-4.5 Mcg Inhaler] Butalb/APAP/Caff 50-325-40Mg 1 tab PO BID PRN 03/25/17 10/02/17 [Fioricet 50-325-40] Dimethyl Fumarate [Tecfidera] 240 mg PO BID 03/25/17 10/02/17 Nystatin 100,000Unit/gm Cream 1 applic TOPICAL BID 03/25/17 10/02/17 [Mycostatin Cream] Previous Rx's Medication Instructions Recorded Nystatin 100,000 Unit/ml Susp 500,000 unit PO QID #28 cup 03/30/17 [Mycostatin Oral Susp] predniSONE 10 mg PO DAILY #30 tab 03/30/17 Allergies Allergy/AdvReac Type Severity Reaction Status Date / Time penicillin G AdvReac Itching Verified 10/02/17 11:31 Review of Systems ROS Statement: Those systems with pertinent positive or pertinent negative responses have been documented in the HPI. ROS Other: All systems not noted in ROS Statement are negative. Past Medical History Past Medical History: Asthma, Cancer, COPD, Fibromyalgia, GERD/Reflux, Hypertension, Neurologic Disorder, Osteoarthritis (OA), Syncope Additional Past Medical History / Comment(s): Rheumatic fever, heart murmur, osteoporosis, chronic bronchitis, MS History of Any Multi-Drug Resistant Organisms: None Reported Past Surgical History: Bladder Surgery, Hysterectomy Additional Past Surgical History / Comment(s): uterine cancer, radiation, Past Anesthesia/Blood Transfusion Reactions: No Reported Reaction Past Psychological History: Anxiety, Depression Smoking Status: Current every day smoker Past Alcohol Use History: None Reported Past Drug Use History: None Reported - Past Family History Mother Family Medical History: CVA/TIA, Myocardial Infarction ([place]) Additional Family Medical History / Comment(s): Mother is alive at age 72 with history of brain aneurysm, 3 strokes and 2 myocardial infarctions. Father Additional Family Medical History / Comment(s): Father at age 72 from a cardiac arrest thought to be due to a myocardial infarction. Sister(s) Additional Family Medical History / Comment(s): Patient has 2 sisters with no major medical problems. Patient does not have any brothers. Patient has 2 children ages 33 and 26 with no major medical problems. General Exam Limitations: no limitations General appearance: alert, in no apparent distress Head exam: Present: atraumatic, normocephalic Eye exam: Present: normal appearance, PERRL, EOMI Neck exam: Present: normal inspection. Absent: tenderness, meningismus Respiratory exam: Present: decreased breath sounds. Absent: respiratory distress Cardiovascular Exam: Present: regular rate, normal rhythm GI/Abdominal exam: Present: soft. Absent: distended, tenderness Extremities exam: Present: normal inspection, normal capillary refill. Absent: pedal edema, calf tenderness Neurological exam: Present: alert, oriented X3, CN II-XII intact. Absent: motor sensory deficit Psychiatric exam: Present: normal affect, normal mood Skin exam: Present: warm, dry, intact. Absent: cyanosis, diaphoretic Course Vital Signs 10/02/17 10/02/17 11:14 11:58 Temperature 98 F Pulse Rate 98 90 Respiratory 16 16 Rate Blood Pressure 115/60 125/73 O2 Sat by Pulse 94 L 93 L Oximetry EKG Findings - EKG Comments: EKG Findings:: EKG: Normal sinus rhythm, rate of 89, AK interval 162, QRS duration 84, QTC [address] segment elevation Medical Decision Making - Medical Decision Making 52-year-old female presenting with chief complaint headache and additional complaint of chest pain. Headache was sudden in onset, head CT was obtained for a scrotal hemorrhage, this was negative, there is lesions consistent with MS seen on head CT. Regarding the patient's chest pain complaint, chest x-ray is negative for acute findings. EKG shows no definitive signs of ischemia. Laboratory studies reveal normal hemoglobin 15.4, mild elevated white blood cell count 13.2. CMP shows a CO2 of 36 consistent with COPD and chronic CO2 retention. Troponin is negative. Patient will be placed in observation for evaluation of neurology for her headache and history of MS. Regarding her chest pain, serial enzymes will be obtained. Case discussed with Dr. Redd who will accept admission. - Lab Data Result diagrams: 10/02/17 11:53 10/02/17 11:53 Lab Results 10/02/17 10/02/17 10/02/17 Range/Units 11:53 11:53 11:53 WBC 13.2 H (3.8-10.6) k/uL RBC 5.19 (3.80-5.40) m/uL Hgb 15.4 (11.4-16.0) gm/dL Hct 49.4 H (34.0-46.0) % MCV 95.2 (80.0-100.0) fL MCH 29.7 (25.0-35.0) pg MCHC 31.2 (31.0-37.0) g/dL RDW 13.8 (11.5-15.5) % Plt Count 294 (150-450) k/uL Neutrophils % 68 % Lymphocytes % 24 % Monocytes % 4 % Eosinophils % 3 % Basophils % 0 % Neutrophils # 8.9 H (1.3-7.7) k/uL Lymphocytes # 3.1 (1.0-4.8) k/uL Monocytes # 0.5 (0-1.0) k/uL Eosinophils # 0.4 (0-0.7) k/uL Basophils # 0.1 (0-0.2) k/uL PT (9.0-12.0) sec INR (<1.2) APTT (22.0-30.0) sec Sodium 140 (137-145) mmol/L Potassium 3.7 (3.5-5.1) mmol/L Chloride 93 L (98-107) mmol/L Carbon Dioxide 36 H (22-30) mmol/L Anion Gap 11 mmol/L BUN 7 (7-17) mg/dL Creatinine 0.55 (0.52-1.04) mg/dL Est GFR (CKD-EPI)AfAm >90 (>60 ml/min/1.73 sqM) Est GFR (CKD-EPI)NonAf >90 (>60 ml/min/1.73 sqM) Glucose 98 (74-99) mg/dL Calcium 10.0 (8.4-10.2) mg/dL Magnesium 1.6 (1.6-2.3) mg/dL Total Bilirubin 0.4 (0.2-1.3) mg/dL AST 21 (14-36) U/L ALT 38 (9-52) U/L Alkaline Phosphatase 95 (38-126) U/L Total Creatine Kinase 42 (30-135) U/L CK-MB (CK-2) <0.2 (0.0-2.4) ng/mL CK-MB (CK-2) Rel Index Troponin I <0.012 (0.000-0.034) ng/mL Total Protein 6.7 (6.3-8.2) g/dL Albumin 4.4 (3.5-5.0) g/dL 10/02/17 Range/Units 11:53 WBC (3.8-10.6) k/uL RBC (3.80-5.40) m/uL Hgb (11.4-16.0) gm/dL Hct (34.0-46.0) % MCV (80.0-100.0) fL MCH (25.0-35.0) pg MCHC (31.0-37.0) g/dL RDW (11.5-15.5) % Plt Count (150-450) k/uL Neutrophils % % Lymphocytes % % Monocytes % % Eosinophils % % Basophils % % Neutrophils # (1.3-7.7) k/uL Lymphocytes # (1.0-4.8) k/uL Monocytes # (0-1.0) k/uL Eosinophils # (0-0.7) k/uL Basophils # (0-0.2) k/uL PT 10.3 (9.0-12.0) sec INR 1.1 (<1.2) APTT 22.9 (22.0-30.0) sec Sodium (137-145) mmol/L Potassium (3.5-5.1) mmol/L Chloride (98-107) mmol/L Carbon Dioxide (22-30) mmol/L Anion Gap mmol/L BUN (7-17) mg/dL Creatinine (0.52-1.04) mg/dL Est GFR (CKD-EPI)AfAm (>60 ml/min/1.73 sqM) Est GFR (CKD-EPI)NonAf (>60 ml/min/1.73 sqM) Glucose (74-99) mg/dL Calcium (8.4-10.2) mg/dL Magnesium (1.6-2.3) mg/dL Total Bilirubin (0.2-1.3) mg/dL AST (14-36) U/L ALT (9-52) U/L Alkaline Phosphatase (38-126) U/L Total Creatine Kinase (30-135) U/L CK-MB (CK-2) (0.0-2.4) ng/mL CK-MB (CK-2) Rel Index Troponin I (0.000-0.034) ng/mL Total Protein (6.3-8.2) g/dL Albumin (3.5-5.0) g/dL Disposition Clinical Impression: Chest pain, Headache Disposition: ADMITTED IP TO THIS [facility] Condition: Stable Is patient prescribed a controlled substance at d/c from ED?: No Referrals: Kilo Tabares MD [Primary Care Provider] - 1-2 days Decision to Admit Reason: Admit from EC Decision Date: 10/02/17 Decision Time: 13:48
[2017-10-02 12:04] LABS: Basophils # (A) 0.1 k/uL (0-0.2); Basophils % (A) 0 %; Eosinophils # (A) 0.4 k/uL (0-0.7); Eosinophils % (A) 3 %; HCT 49.4 % (34.0-46.0); HGB 15.4 gm/dL (11.4-16.0); Lymphocytes # (A) 3.1 k/uL (1.0-4.8); Lymphocytes % (A) 24 %; MCH 29.7 pg (25.0-35.0); MCHC 31.2 g/dL (31.0-37.0); MCV 95.2 fL (80.0-100.0); Mean Platelet Volume 7.3; Monocytes # (A) 0.5 k/uL (0-1.0); Monocytes % (A) 4 %; Neutrophils # (A) 8.9 k/uL (1.3-7.7); Neutrophils % (A) 68 %; Platelet Count 294 k/uL (150-450); RBC 5.19 m/uL (3.80-5.40); RDW 13.8 % (11.5-15.5); WBC 13.2 k/uL (3.8-10.6)
--- NOTE | 2017-10-02 12:12 | XR ---
EXAMINATION TYPE: XR chest 2V DATE OF EXAM: 10/02/2017 COMPARISON: Prior chest x-ray 03/25/2017 HISTORY: Chest pain and shortness of breath TECHNIQUE: Frontal and lateral views of the chest are obtained. FINDINGS: There is no focal air space opacity, pleural effusion, or pneumothorax seen. Pulmonary ar biju appears prominently. The cardiac silhouette size is stable, borderline enlarged. The osseous s tructures are intact. IMPRESSION: No acute cardiopulmonary process.
[2017-10-02 12:13] LABS: ALT 38 U/L (9-52); AST 21 U/L (14-36); Albumin 4.4 g/dL (3.5-5.0); Alkaline Phosphatase 95 U/L (38-126); Anion Gap 11 mmol/L; Blood Urea Nitrogen 7 mg/dL (7-17); Carbon Dioxide 36 mmol/L (22-30); Chloride 93 mmol/L (98-107); Glucose 98 mg/dL (74-99); Magnesium 1.6 mg/dL (1.6-2.3); Potassium 3.7 mmol/L (3.5-5.1); Sodium 140 mmol/L (137-145); Total Bilirubin 0.4 mg/dL (0.2-1.3); Total Protein 6.7 g/dL (6.3-8.2)
[2017-10-02 12:24] LABS: Creatine Kinase 42 U/L (30-135)
[2017-10-02 12:37] LABS: Creatine Kinase MB <0.2 ng/mL (0.0-2.4); Troponin I <0.012 ng/mL (0.000-0.034)
[2017-10-02 12:49] LABS: INR 1.1 (<1.2); Partial Thromboplastin Time 22.9 sec (22.0-30.0); Prothrombin Time 10.3 sec (9.0-12.0)
--- NOTE | 2017-10-02 13:00 | CT ---
EXAMINATION TYPE: CT brain wo con DATE OF EXAM: 10/02/2017 COMPARISON: 03/27/2017 MR brain HISTORY: Headache CT DLP: 1165 mGycm. Automated Exposure Control for Dose Reduction was Utilized. TECHNIQUE: CT scan of the head is performed without contrast. FINDINGS: There is no acute intracranial hemorrhage, mass effect, or midline shift identified. The previously seen numerous white matter lesions seen on the prior MR brain of 03/27/2017 and better de lineated on MRI. Few patchy areas of nonspecific white matter change are demonstrated as patchy areas of hypoattenuation in the subcortical and periventricular white matter. The ventricles and sulci are within normal limits in size. The globes are intact and the visualized sinuses are clear. IMPRESSION: No acute intracranial process. The numerous white matter lesions seen on the prior MRI o f 03/27/2017 that could represent demyelinating disease are better delineated on the prior MRI than o n the current CT.
[2017-10-02] MEDS ORDERED: NALOXONE 0.4 MG/ML 1 ML VIAL IV PRN (13:43)
[2017-10-02] MEDS ORDERED: IBUPROFEN 400 MG TAB PO PRN (13:43)
[2017-10-02] MEDS ORDERED: FLUTICASONE 50MCG/SPRAY NASAL 16GM EA NOSTRIL PRN (14:03)
[2017-10-02] MEDS ORDERED: MECLIZINE 25 MG TAB PO PRN (14:03)
--- NOTE | 2017-10-02 14:03 | P.HPIM ---
History of Present Illness H&P Date: 10/02/17 Chief Complaint: chest pain/headache This is a 52-year-old -Portuguese female patient of Dr. Tabares with past medical history of asthma, uterine cancer status post hysterectomy and radiation , fibromyalgia, COPD, gastroesophageal reflux disease, hypertension, osteoarthritis and osteoporosis, MS currently on Tecfedera , after she was on Copaxone for quite sometime, she has been under the care of from neurology Dr. Ramirez for quite sometime now and today she came to the emergency department at [facility] because of the left sided throbbing headache that is different to the migraine headache that she had before, and she has no dizziness or lightheadedness with that. She has no blurred vision or double vision with that she has no dysphasia with that she is having some issues with her throat she stated that she wants her thyroid to be checked, while she was in the ER developed to have some chest discomfort and the patient to the subsequently was admitted to the hospital for evaluation, neurology consultation was obtained. Patient underwent left heart catheterization that was done back in March 2017 that was negative for coronary artery disease. Review of Systems Constitutional: Reports fatigue, Reports weakness, Reports weight gain, Denies anorexia, Denies chronic headaches, Denies chronic pain, Denies lethargy Eyes: denies blurred vision, denies bulging eye, denies decreased vision Ears: deny: decreased hearing Ears, nose, mouth and throat: Denies dysphagia, Denies neck lump, Denies sore throat Cardiovascular: Reports chest pain, Reports decreased exercise tolerance, Reports dyspnea on exertion, Reports high blood pressure, Reports shortness of breath, Denies syncope Respiratory: Reports sleep apnea, Denies congestion, Denies cough with sputum, Denies home oxygen, Denies snoring, Denies wheezing Gastrointestinal: Denies abdominal pain, Denies bloating, Denies heartburn, Denies melena, Denies nausea, Denies vomiting Genitourinary: Denies dysuria, Denies urgency Musculoskeletal: Denies myalgias Musculoskeletal: absent: ankle pain, ankle stiffness, ankle swelling, elbow pain , elbow stiffness, elbow swelling, foot pain, foot stiffness, foot swelling, hand pain, hand stiffness, hand swelling, hip pain, hip stiffness, hip swelling , knee pain, knee stiffness, knee swelling, shoulder pain, shoulder stiffness, shoulder swelling, wrist pain, wrist stiffness, wrist swelling Integumentary: Denies pruritus, Denies rash Neurological: Denies numbness, Denies weakness Psychiatric: Reports anxiety, Reports depression Endocrine: Denies fatigue, Denies weight change Past Medical History Past Medical History: Asthma, Cancer, COPD, Fibromyalgia, GERD/Reflux, Hypertension, Neurologic Disorder, Osteoarthritis (OA), Syncope Additional Past Medical History / Comment(s): Rheumatic fever, heart murmur, osteoporosis, chronic bronchitis, MS History of Any Multi-Drug Resistant Organisms: None Reported Past Surgical History: Bladder Surgery, Heart Catheterization, Hysterectomy Additional Past Surgical History / Comment(s): uterine cancer, radiation, Past Anesthesia/Blood Transfusion Reactions: No Reported Reaction Past Psychological History: Anxiety, Depression Smoking Status: Current every day smoker Past Alcohol Use History: None Reported Past Drug Use History: None Reported - Past Family History Mother Family Medical History: CVA/TIA, Myocardial Infarction ([place]) Additional Family Medical History / Comment(s): Mother is alive at age 72 with history of brain aneurysm, 3 strokes and 2 myocardial infarctions. Father Additional Family Medical History / Comment(s): Father at age 72 from a cardiac arrest thought to be due to a myocardial infarction. Sister(s) Additional Family Medical History / Comment(s): Patient has 2 sisters with no major medical problems. Patient does not have any brothers. Patient has 2 children ages 33 and 26 with no major medical problems. Medications and Allergies Home Medications Medication Instructions Recorded Confirmed Type Albuterol Inhaler [Ventolin Hfa 2 puff INHALATION RT-Q6H PRN 02/20/14 10/02/17 History Inhaler] Aspirin 81 mg PO DAILY 02/20/14 10/02/17 History Cholecalciferol [Vitamin D3] 1,000 units PO DAILY 02/20/14 10/02/17 History Fluticasone Propionate [Flonase] 2 spray EA NOSTRIL DAILY PRN 02/20/14 10/02/17 History LORazepam [Ativan] 1 mg PO TID PRN 02/20/14 10/02/17 History Meclizine [Antivert] 25 mg PO TID PRN 02/20/14 10/02/17 History Methocarbamol 500 mg PO Q6H PRN 02/20/14 10/02/17 History Montelukast [Singulair] 10 mg PO HS 02/20/14 10/02/17 History Multivit with Calcium,Iron,Min 1 tab PO DAILY 02/20/14 10/02/17 History [Women's Daily Multivitamin] PARoxetine HCL [Paxil] 40 mg PO DAILY 02/20/14 10/02/17 History Verapamil HCl 120 mg PO DAILY 02/20/14 10/02/17 History Beclomethasone Dipropionate [Qvar 2 puff INHALATION RT-BID 08/19/16 10/02/17 History 80 mcg] Gabapentin [Neurontin] 1,200 mg PO TID 08/19/16 10/02/17 History Ranitidine HCl [Zantac] 150 mg PO BID 08/19/16 10/02/17 History Albuterol Nebulized [Ventolin 2.5 mg INHALATION RT-QID 03/25/17 10/02/17 History Nebulized] Budesonide-Formot 160-4.5 Mcg 2 puff INHALATION RT-BID 03/25/17 10/02/17 History [Symbicort 160-4.5 Mcg Inhaler] Butalb/APAP/Caff 50-325-40Mg 1 tab PO BID PRN 03/25/17 10/02/17 History [Fioricet 50-325-40] Dimethyl Fumarate [Tecfidera] 240 mg PO BID 03/25/17 10/02/17 History Nystatin 100,000Unit/gm Cream 1 applic TOPICAL BID 03/25/17 10/02/17 History [Mycostatin Cream] Nystatin 100,000 Unit/ml Susp 500,000 unit PO QID #28 cup 03/30/17 10/02/17 Rx [Mycostatin Oral Susp] predniSONE 10 mg PO DAILY #30 tab 03/30/17 10/02/17 Rx Allergies Allergy/AdvReac Type Severity Reaction Status Date / Time penicillin G AdvReac Itching Verified 10/02/17 11:31 Physical Exam Vitals: Vital Signs Temp Pulse Resp BP Pulse Ox 10/02/17 11:58 90 16 125/73 93 L 10/02/17 11:14 98 F 98 16 115/60 94 L Intake and Output 10/01/17 10/02/17 10/02/17 22:59 06:59 14:59 Other: Weight 102.058 kg - Constitutional General appearance: mild distress, obese - EENT Eyes: anicteric sclerae, EOMI, PERRLA, no ptosis, no scleral icterus, normal appearance ENT: hearing grossly normal, NA/AT, normal oropharynx, no thrush Ears: bilateral: normal - Neck Neck: no lymphadenopathy, normal ROM, no rigidity, no stridor, no thyromegaly Carotids: bilateral: upstroke normal Thyroid: bilateral: normal size - Respiratory Respiratory: bilateral: diminished, negative: dullness, rales, rhonchi, wheezing , prolonged expiration, prolonged inspiration - Cardiovascular Rhythm: regular Heart sounds: normal: S1, S2 Abnormal Heart Sounds: systolic murmur, no S3 Gallop, no S4 Gallop, no click - Gastrointestinal General gastrointestinal: normal bowel sounds, soft, no splenomegaly, no tenderness, no umbilical hernia, no ventral hernia - Integumentary Integumentary: normal, normal turgor - Musculoskeletal Musculoskeletal: strength equal bilaterally - Psychiatric Psychiatric: A&O x's 3, appropriate affect, intact judgment & insight Results CBC & Chem 7: 10/02/17 11:53 10/02/17 11:53 Labs: Abnormal Lab Results - Last 24 Hours (Table) 10/02/17 10/02/17 Range/Units 11:53 11:53 WBC 13.2 H (3.8-10.6) k/uL Hct 49.4 H (34.0-46.0) % Neutrophils # 8.9 H (1.3-7.7) k/uL Chloride 93 L (98-107) mmol/L Carbon Dioxide 36 H (22-30) mmol/L Thrombosis Risk Factor Assmnt - DVT/VTE Prophylaxis DVT/VTE Prophylaxis: Mechanical Prophylaxis ordered Assessment and Plan Assessment: Assessment and plan: 1. Chest pain likely noncardiac in view of her recent stress test that was negative for stress-induced ischemia and a normal echocardiogram that showed LV function of 65% with mild mitral regurgitation about 6 month ago, and she also had left heart catheterization March 2017 that was negative for coronary artery disease, however she'll be admitted to the hospital for observation and cardiac biomarkers 2 and then if it's negative can be discharged home. 2. Intractable left frontal headache thought to be due to medication side effect. Computed tomography scan of the brain was negative we will monitor the patient very closely continue Katheryn obtain neurology consultation Dr. Ramirez 3. Relapsing remitting multiple sclerosis. Continue Tecfidera 240 mg orally twice every day. 4. Hypertension and hypertensive cardiovascular disease. Continue verapamil 120 mg orally once every day. 5. Obesity with possible obstructive sleep apnea and obesity hypoventilation syndrome. 6. Asthma/COPD. Continue Symbicort as well as nebulized treatment 4 times every day. Support with oxygen as needed. 7. Fibromyalgia. Continue gabapentin 1200 mg orally 3 times every day, continue Robaxin 500 mg orally 4 times every day. 8. ALLERGIC rhinitis . Continue Flonase nasal spray 2 sprays in each nostril once every day, continue with singular 10 mg at bedtime . 9. Depressive disorder. Continue paroxetine 40 mg orally once every day. 10. Chronic tobacco use and dependence. Smoking cessation and counseling an increased risk of CAD, CVA, and malignancy. Continue nicotine patch 1 mg once every day. 11. DVT prophylaxis. Heparin 5000 units subcutaneously every 8 hours, bilateral knee-high MAYUR hose. 12. GI prophylaxis. Continue patient on pepcid 20 mg orally bid. 13. Observation.
[2017-10-02] MEDS: ALBUTEROL NEBULIZED 2.5 MG/3 ML INHALATION SCH ×2 (16:32→19:28)
[2017-10-02] MEDS: GABAPENTIN 400 MG CAP PO SCH ×2 (17:04→20:10)
[2017-10-02] MEDS: NICOTINE 14MG/24HR PATCH TRANSDERM SCH (17:05)
[2017-10-02] MEDS: MORPHINE SULFATE 2 MG/ML SYRINGE IV PRN (17:05)
--- NOTE | 2017-10-02 17:18 | P.CNNES ---
History of Present Illness Consult date: 10/02/17 Reason for Consult: This patient admitted with severe intractable headache pain. History of Present Illness: This patient is a 52-year-old right-handed -Romanian female who was brought to the hospital today with severe headache pain. Patient has multiple complex medical issues including a history of asthma, uterine cancer, fibromyalgia, multiple sclerosis, hypertension, and osteoarthritis. She has been followed in the outpatient neurology clinic with Dr. Ramirez. She is on treatment for her MS and is currently taking Tecfidera as her primary treatment for her MS. Her last MS flareup was last year. The patient states she does have a history of migraines but this headache today was very different. She describes it as a severe popping in her head as if something had bursts. She does have concern as there is a strong family history of cerebral aneurysm as her mother suffered an cerebral aneurysm at a very young age. She did survive. The patient states that her headache pain was so intense that she could not bear it at home and decided to come to the emergency room at [facility] for further evaluation. She was seen in the ER today by Dr. Rios. Her headache pain still was quite severe and she was given some morphine which did seem to help somewhat. She was sent for a computed tomography scan of the brain which revealed no acute intracranial process. There was numerous white matter lesions seen on prior MRI of 03/27/2017 which could represent demyelinating disease. As noted she does have a history of MS diagnosed 5 years ago. The patient states that her headache pain was so severe that she became lightheaded and nauseated. She was seen in the ER and then advise admission to the hospital today for further evaluation. Patient states her headache pain is still 10 over 10 in intensity and involves her entire head. She does have history of fibromyalgia but denies any headaches associated with this condition. She does have some severe tenderness in the suboccipital notch bilaterally raising the suspicion highly for bilateral occipital neuritis. She states that that pain also was 10 over 10 in intensity. We have recommended that she should undergo an occipital nerve block procedure for treatment of the occipital neuritis. Given the sudden onset of her severe headache and the negative CAT scan of the brain we have recommended she undergo a MRA with [place] evaluation to rule out cerebral aneurysm. This will be arranged for the patient on an emergent basis today through radiology. Pending these results further recommendations will be given. As noted she does have evidence of occipital neuritis bilaterally which is also contributing to her severe headache pain. Patient denies any neck pain or neck stiffness at this time. As noted CAT scan of the brain failed to reveal any evidence of acute hemorrhage. Her last MRI of the brain was done on 03/27/2017 which confirmed the diagnosis of underlying demyelinating disease. The patient has been treated with morphine as well as Aricept which did seem to ease some of the headache symptoms. We will await the anesthesia procedure with bilateral occipital nerve blocks to see if this improves her overall headache symptoms. Once again she'll be sent for an emergent MRA [facility] [place] [facility] for further assessment of cerebral aneurysm. If this is negative she will have the occipital nerve block procedure done tomorrow by anesthesia. She does have significant chest pain symptoms and she may benefit from a cardiology consultation as well. We have ordered laboratory testing for inflammatory reactants. We will see if she has flareup of her fibromyalgia as well. Her MS is stable at this time and she should continue on her current medications. We will continue close follow-up with this patient during this admission. Her overall prognosis at this time remains very guarded. Neurology is now been consulted for further evaluation and recommendations. Review of Systems Constitutional: Denies chills, Denies fever Eyes: denies blurred vision, denies pain Ears, nose, mouth and throat: Denies headache, Denies sore throat Cardiovascular: Reports high blood pressure, Denies chest pain, Denies shortness of breath Respiratory: Denies cough Gastrointestinal: Denies abdominal pain, Denies diarrhea, Denies nausea, Denies vomiting Genitourinary: Denies dysuria, Denies hematuria Musculoskeletal: Denies myalgias Integumentary: Denies pruritus, Denies rash Neurological: Reports headaches, Reports migraines, Reports paresthesias, Reports tingling, Denies numbness, Denies weakness Psychiatric: Denies anxiety, Denies depression Endocrine: Denies fatigue, Denies weight change Past Medical History Past Medical History: Asthma, Cancer, COPD, Fibromyalgia, GERD/Reflux, Hypertension, Neurologic Disorder, Osteoarthritis (OA), Syncope Additional Past Medical History / Comment(s): Rheumatic fever, heart murmur, osteoporosis, chronic bronchitis, MS,vertigo, lexiscan stress test. 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 History of Any Multi-Drug Resistant Organisms: None Reported Past Surgical History: Bladder Surgery, Heart Catheterization, Hysterectomy Additional Past Surgical History / Comment(s): uterine cancer, radiation, Past Anesthesia/Blood Transfusion Reactions: No Reported Reaction Additional Past Anesthesia/Blood Transfusion Reaction / Comment(s): mild clausterphobia Smoking Status: Current every day smoker - Past Family History Mother Family Medical History: CVA/TIA, Myocardial Infarction ([place]) Additional Family Medical History / Comment(s): Mother is alive at age 72 with history of brain aneurysm, 3 strokes and 2 myocardial infarctions. Father Additional Family Medical History / Comment(s): Father at age 72 from a cardiac arrest thought to be due to a myocardial infarction. Sister(s) Additional Family Medical History / Comment(s): Patient has 2 sisters with no major medical problems. Patient does not have any brothers. Patient has 2 children ages 33 and 26 with no major medical problems. Medications and Allergies Home Medications Medication Instructions Recorded Confirmed Type Albuterol Inhaler [Ventolin Hfa 2 puff INHALATION RT-Q6H PRN 02/20/14 10/02/17 History Inhaler] Aspirin 81 mg PO DAILY 02/20/14 10/02/17 History Cholecalciferol [Vitamin D3] 1,000 units PO DAILY 02/20/14 10/02/17 History Fluticasone Propionate [Flonase] 2 spray EA NOSTRIL DAILY PRN 02/20/14 10/02/17 History LORazepam [Ativan] 1 mg PO TID PRN 02/20/14 10/02/17 History Meclizine [Antivert] 25 mg PO TID PRN 02/20/14 10/02/17 History Methocarbamol 500 mg PO Q6H PRN 02/20/14 10/02/17 History Montelukast [Singulair] 10 mg PO HS 02/20/14 10/02/17 History Multivit with Calcium,Iron,Min 1 tab PO DAILY 02/20/14 10/02/17 History [Women's Daily Multivitamin] PARoxetine HCL [Paxil] 40 mg PO DAILY 02/20/14 10/02/17 History Verapamil HCl 120 mg PO DAILY 02/20/14 10/02/17 History Beclomethasone Dipropionate [Qvar 2 puff INHALATION RT-BID 08/19/16 10/02/17 History 80 mcg] Gabapentin [Neurontin] 1,200 mg PO TID 08/19/16 10/02/17 History Ranitidine HCl [Zantac] 150 mg PO BID 08/19/16 10/02/17 History Albuterol Nebulized [Ventolin 2.5 mg INHALATION RT-QID 03/25/17 10/02/17 History Nebulized] Butalb/APAP/Caff 50-325-40Mg 1 tab PO BID PRN 03/25/17 10/02/17 History [Fioricet 50-325-40] Dimethyl Fumarate [Tecfidera] 240 mg PO BID 03/25/17 10/02/17 History Nystatin 100,000Unit/gm Cream 1 applic TOPICAL BID 03/25/17 10/02/17 History [Mycostatin Cream] Nystatin 100,000 Unit/ml Susp 500,000 unit PO QID #28 cup 03/30/17 10/02/17 Rx [Mycostatin Oral Susp] predniSONE 10 mg PO DAILY #30 tab 03/30/17 10/02/17 Rx Memantine [Namenda] 10 mg PO AC-SUPPER 10/02/17 10/02/17 History Allergies Allergy/AdvReac Type Severity Reaction Status Date / Time penicillin G AdvReac Itching Verified 10/02/17 11:31 Physical Examination - Vital Signs Vital Signs: Vital Signs Temp Pulse Pulse Resp BP BP Pulse Ox 10/02/17 15:57 16 10/02/17 14:57 98 F 72 16 125/67 94 L 10/02/17 14:52 98.2 F 80 18 140/80 98 10/02/17 11:58 90 16 125/73 93 L 10/02/17 11:14 98 F 98 16 115/60 94 L Intake and Output 10/02/17 10/02/17 10/02/17 06:59 14:59 22:59 Other: Voiding Method Toilet Weight 107.4 kg - Constitutional General appearance: cooperative, morbidly obese - EENT EENT: PERRL, mucous membranes moist - Respiratory Respiratory: lungs clear, normal breath sounds - Cardiovascular Cardiovascular: regular rate, normal S1, normal S2 Extremities: no peripheral edema bilaterally - Gastrointestinal Gastrointestinal: normoactive bowel sounds - Integumentary Integumentary: normal - Neurologic Cranial nerve examination: PERRL, EOMI, VFF, V1/V2/V3 grossly intact, face symmetric, intact gag reflex, intact corneal reflex, normal palatal elevation Speech examination: intact Sensorimotor examination: intact Motor examination - right side: 4/5: biceps, triceps, wrist flexion, wrist extension, lockstitch cup setter, hip flexors, knee extensors, dorsiflexion, toe extension (EHL) , plantarflexion Motor examination - left side: 4/5: biceps, triceps, wrist flexion, wrist extension, lockstitch cup setter, hip flexors, knee extensors, dorsiflexion, toe extension (EHL) , plantarflexion Detailed sensory examination: intact Reflex and gait examination: intact Reflexes: 1+: ankle, bicep, knee, tricep - Musculoskeletal Musculoskeletal: no pain - Psychiatric Psychiatric: mood/affect appropriate, cooperative Results - Laboratory Findings CBC and BMP: 10/02/17 11:53 10/02/17 11:53 Abnormal Lab Findings: Abnormal Labs 10/02/17 10/02/17 11:53 11:53 WBC 13.2 H Hct 49.4 H Neutrophils # 8.9 H Chloride 93 L Carbon Dioxide 36 H Assessment and Plan (1) Intractable headache Current Visit: Yes Status: Acute Code(s): R51 - HEADACHE SNOMED Code(s): 04248925 (2) Occipital neuritis Current Visit: Yes Status: Acute Code(s): M54.81 - OCCIPITAL NEURALGIA SNOMED Code(s): 77725008 (3) History of multiple sclerosis Current Visit: Yes Status: Acute Code(s): Z86.69 - PERSONAL HISTORY OF DIS OF THE NERVOUS SYS AND SENSE ORGANS SNOMED Code(s): 552838258 (4) Fibromyalgia Current Visit: Yes Status: Acute Code(s): M79.7 - FIBROMYALGIA SNOMED Code (s): 422085895 (5) Chest pain Current Visit: Yes Status: Acute Code(s): R07.9 - CHEST PAIN, UNSPECIFIED SNOMED Code(s): 41577449 Plan: This patient is a 52-year-old -Romanian female who was admitted through the emergency room today for evaluation of sudden onset of intractable headache pain. Patient had sudden onset 1 hour prior to her ER evaluation today of severe headache involving her entire head. She describes as if something it popped in her head and she has been having severe excruciating pain. She has been concerned as her mother was diagnosed with a cerebral aneurysm in the past. Patient has multiple other medical issues including history of fibromyalgia and multiple sclerosis. She also has history of underlying uterine cancer which was treated with radiation and hysterectomy. The patient apparently has history of migraine headaches in the past but this headache today was very different. She was evaluated in the ER by Dr. Rios. She was sent for a computed tomography scan of the brain results which are noted above. We have recommended the patient undergo MRA [place] today to rule out cerebral aneurysm. She does have evidence of bilateral occipital neuritis on examination today and we will require bilateral occipital nerve block procedure to be done tomorrow by anesthesia. We will obtain laboratory testing for inflammatory reactants. She is to continue with current pain medications for management until further testing and medications can be adjusted for her. She is currently on Fioricet and morphine which should be sufficient until she is reevaluated. Her most recent MRI of the brain was reviewed which was done on 03/27/2017 and confirm the diagnosis of MS. Patient is to continue with all of her current medications. We will continue close monitoring of the patient during this admission. Her overall prognosis at this time remains very guarded. We will continue close neurological follow-up for the patient during this admission. Time with Patient: Greater than 30
[2017-10-02] MEDS: LORazepam 1 MG TAB PO PRN (17:19)
--- NOTE | 2017-10-02 18:40 | MR ---
EXAMINATION TYPE: MR angio head wo con DATE OF EXAM: 10/02/2017 COMPARISON: CT brain earlier today. MRA brain. 02/21/2012 HISTORY: Acute thunderclap headache TECHNIQUE: Time of flight images focusing on the [place] were performed without contrast.. 2-D and 3-D postprocessing imaging is performed. FINDINGS: There is redemonstration of dominant right vertebral artery. Vertebral arteries are patent to basilar junction. There is no significant focal stenosis or aneurysmal change identified. Patent p osterior communicating arteries are identified bilaterally. 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 There is patent anterior communicating artery. There is no significant focal stenosis or aneurysmal c hange in the anterior circulation. Tortuous course to distal left internal carotid artery is redemons trated. IMPRESSION: No aneurysmal change identified at the level of the [place].
[2017-10-02 19:24] LABS: Creatine Kinase 43 U/L (30-135)
[2017-10-02] MEDS: MONTELUKAST 10 MG TAB PO SCH (19:26)
[2017-10-02] MEDS: NYSTATIN 100,000UNIT/GM CREAM 30 GM TUBE TOPICAL SCH ×2 (19:26→19:29)
[2017-10-02] MEDS: FAMOTIDINE 20 MG TAB PO SCH (19:27)
[2017-10-02] MEDS: Dimethyl Fumarate [Tecfidera] PO SCH (19:27)
[2017-10-02] MEDS: BUTALB/APAP/CAFF 50-325-40MG TAB PO PRN (19:27)
[2017-10-02] MEDS: BUDESONIDE 1 MG/2 ML NEBU INHALATION SCH (19:28)
[2017-10-02 19:35] LABS: Creatine Kinase MB <0.2 ng/mL (0.0-2.4); Troponin I <0.012 ng/mL (0.000-0.034)
[2017-10-02] MEDS: KETOROLAC 30 MG/ML 1 ML VIAL IVP PRN (19:59)
[2017-10-02] MEDS ORDERED: SYMBICORT 160-4.5 MCG INHALER INHALATION SCH (20:00)
[2017-10-02] MEDS: NYSTATIN 100,000 UNIT/ML SUSP 500,000 UNIT/5 ML CUP PO SCH (20:09)
[2017-10-03 01:00] LABS: Creatine Kinase 37 U/L (30-135)
[2017-10-03 01:13] LABS: Creatine Kinase MB <0.2 ng/mL (0.0-2.4); Troponin I <0.012 ng/mL (0.000-0.034)
[2017-10-03] MEDS: MORPHINE SULFATE 2 MG/ML SYRINGE IV PRN ×4 (04:28→20:06)
[2017-10-03] MEDS: KETOROLAC 30 MG/ML 1 ML VIAL IVP PRN ×2 (07:37→13:31)
[2017-10-03] MEDS: Dimethyl Fumarate [Tecfidera] PO SCH ×2 (07:38→20:18)
[2017-10-03] MEDS: GABAPENTIN 400 MG CAP PO SCH ×3 (07:42→21:42)
[2017-10-03] MEDS: FAMOTIDINE 20 MG TAB PO SCH ×2 (07:42→20:18)
[2017-10-03] MEDS: NYSTATIN 100,000 UNIT/ML SUSP 500,000 UNIT/5 ML CUP PO SCH ×4 (07:43→21:42)
[2017-10-03] MEDS: PARoxetine 20 MG TAB PO SCH (07:43)
[2017-10-03] MEDS: VERAPAMIL SR 120 MG TABLET.ER PO SCH (07:43)
[2017-10-03] MEDS: NICOTINE 14MG/24HR PATCH TRANSDERM SCH (07:43)
[2017-10-03] MEDS: BUTALB/APAP/CAFF 50-325-40MG TAB PO PRN ×2 (08:13→20:21)
[2017-10-03] MEDS: ASPIRIN 81 MG PO SCH (08:13)
[2017-10-03] MEDS: ALBUTEROL NEBULIZED 2.5 MG/3 ML INHALATION SCH ×4 (08:21→19:59)
[2017-10-03] MEDS: BUDESONIDE 1 MG/2 ML NEBU INHALATION SCH ×2 (08:21→19:58)
[2017-10-03] MEDS: LORazepam 1 MG TAB PO PRN ×2 (11:14→20:21)
--- NOTE | 2017-10-03 11:16 | P.PAINCN ---
History of Present Illness - Reason for Consult Consult date: 10/03/17 Occiptal Headaches, Occipital Neuralgia - Chief Complaint Occipital headaches, Neck pain - History of Present Illness Ms. Fernandes is a 52-year-old -[place]ian female with a history of chronic neck pain, multiple sclerosis, occipital neuralgia. Anesthesia/pain management was consulted by Dr. Chi with regards to patient's occipital headaches, and to perform bilateral occipital nerve blocks. Patient presented to the hospital secondary to severe headaches and neck pain. Patient states that her pain is 9/10 in severity, she states that pain is sharp, throbbing, aching mostly in the occipital area of her head radiating into her trapezius muscles, between her scapula, and slightly into her shoulders. Patient does not complain of any nausea, vomiting, blurred vision, dizziness, or display any signs and symptoms of elevated intracranial pressures. Patient cannot identify any alleviating factors of her headaches, she states that excess stress anxiety and excessive exertion exacerbate her neck pain and occipital pain. Patient had a long history of chronic neck pain treated as an outpatient. She's had multiple cervical epidural steroid injections in the past, and is uncertain if she's ever had facet joint injections or cervical spine. I discussed with the patient the risks and benefits of performing and bilateral occipital nerve blocks, which include infection, bleeding, and possible seizures if medication injected into occipital artery. patient does not have any contraindication to performing them in patient. Patient consented to performing bilateral occipital nerve blocks. Review of Systems Constitutional: Reports chronic headaches, Reports chronic pain, Reports weight gain Eyes: denies blurred vision, denies bulging eye, denies decreased vision, denies diplopia, denies discharge, denies dry eye, denies irritation, denies itching, denies pain, denies photophobia, denies loss of peripheral vision, denies loss of vision, denies tunnel vision/blind spots Ears: deny: decreased hearing, ear discharge, earache, tinnitus Ears, nose, mouth and throat: Reports headache (occiptal) Musculoskeletal: Reports neck pain, Reports neck stiffness Past Medical History Past Medical History: Asthma, Cancer, COPD, Fibromyalgia, GERD/Reflux, Hypertension, Neurologic Disorder, Osteoarthritis (OA), Syncope Additional Past Medical History / Comment(s): Rheumatic fever, heart murmur, osteoporosis, chronic bronchitis, MS,vertigo, lexiscan stress test. 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 History of Any Multi-Drug Resistant Organisms: None Reported Past Surgical History: Bladder Surgery, Heart Catheterization, Hysterectomy Additional Past Surgical History / Comment(s): uterine cancer, radiation, Past Anesthesia/Blood Transfusion Reactions: No Reported Reaction Additional Past Anesthesia/Blood Transfusion Reaction / Comm: mild clausterphobia Smoking Status: Current every day smoker - Past Family History Mother Family Medical History: CVA/TIA, Myocardial Infarction ([place]) Additional Family Medical History / Comment(s): Mother is alive at age 72 with history of brain aneurysm, 3 strokes and 2 myocardial infarctions. Father Additional Family Medical History / Comment(s): Father at age 72 from a cardiac arrest thought to be due to a myocardial infarction. Sister(s) Additional Family Medical History / Comment(s): Patient has 2 sisters with no major medical problems. Patient does not have any brothers. Patient has 2 children ages 33 and 26 with no major medical problems. Medications and Allergies Home Medications Medication Instructions Recorded Confirmed Type Albuterol Inhaler [Ventolin Hfa 2 puff INHALATION RT-Q6H PRN 02/20/14 10/02/17 History Inhaler] Aspirin 81 mg PO DAILY 02/20/14 10/02/17 History Cholecalciferol [Vitamin D3] 1,000 units PO DAILY 02/20/14 10/02/17 History Fluticasone Propionate [Flonase] 2 spray EA NOSTRIL DAILY PRN 02/20/14 10/02/17 History LORazepam [Ativan] 1 mg PO TID PRN 02/20/14 10/02/17 History Meclizine [Antivert] 25 mg PO TID PRN 02/20/14 10/02/17 History Methocarbamol 500 mg PO Q6H PRN 02/20/14 10/02/17 History Montelukast [Singulair] 10 mg PO HS 02/20/14 10/02/17 History Multivit with Calcium,Iron,Min 1 tab PO DAILY 02/20/14 10/02/17 History [Women's Daily Multivitamin] PARoxetine HCL [Paxil] 40 mg PO DAILY 02/20/14 10/02/17 History Verapamil HCl 120 mg PO DAILY 02/20/14 10/02/17 History Beclomethasone Dipropionate [Qvar 2 puff INHALATION RT-BID 08/19/16 10/02/17 History 80 mcg] Gabapentin [Neurontin] 1,200 mg PO TID 08/19/16 10/02/17 History Ranitidine HCl [Zantac] 150 mg PO BID 08/19/16 10/02/17 History Albuterol Nebulized [Ventolin 2.5 mg INHALATION RT-QID 03/25/17 10/02/17 History Nebulized] Butalb/APAP/Caff 50-325-40Mg 1 tab PO BID PRN 03/25/17 10/02/17 History [Fioricet 50-325-40] Dimethyl Fumarate [Tecfidera] 240 mg PO BID 03/25/17 10/02/17 History Nystatin 100,000Unit/gm Cream 1 applic TOPICAL BID 03/25/17 10/02/17 History [Mycostatin Cream] Nystatin 100,000 Unit/ml Susp 500,000 unit PO QID #28 cup 03/30/17 10/02/17 Rx [Mycostatin Oral Susp] predniSONE 10 mg PO DAILY #30 tab 03/30/17 10/02/17 Rx Memantine [Namenda] 10 mg PO AC-SUPPER 10/02/17 10/02/17 History Allergies Allergy/AdvReac Type Severity Reaction Status Date / Time penicillin G AdvReac Itching Verified 10/02/17 11:31 Physical Exam Vitals: Vital Signs Temp Pulse Pulse Pulse Resp BP BP 10/03/17 10:26 98 F 80 16 94/63 10/03/17 10:03 98 F 80 16 94/63 10/03/17 08:36 64 10/03/17 08:21 68 10/03/17 08:00 98 F 80 16 90/68 10/03/17 04:00 97.9 F 62 16 95/59 10/03/17 03:26 16 10/03/17 00:00 97.9 F 65 16 95/66 10/02/17 23:12 18 10/02/17 19:48 86 10/02/17 19:31 84 18 10/02/17 19:25 97.7 F 84 18 107/55 10/02/17 15:57 16 10/02/17 14:57 98 F 72 16 125/67 10/02/17 14:52 98.2 F 80 18 140/80 10/02/17 11:58 90 16 125/73 10/02/17 11:14 98 F 98 16 115/60 Pulse Ox 10/03/17 10:26 93 L 10/03/17 10:03 93 L 10/03/17 08:36 10/03/17 08:21 10/03/17 08:00 93 L 10/03/17 04:00 94 L 10/03/17 03:26 10/03/17 00:00 94 L 10/02/17 23:12 10/02/17 19:48 10/02/17 19:31 10/02/17 19:25 95 10/02/17 15:57 10/02/17 14:57 94 L 10/02/17 14:52 98 10/02/17 11:58 93 L 10/02/17 11:14 94 L Intake and Output 10/02/17 10/03/17 10/03/17 22:59 06:59 14:59 Other: Voiding Method Toilet Toilet Toilet # Voids 2 - Constitutional General appearance: obese - EENT Eyes: PERRLA, poor dentition ENT: hearing grossly normal - Neck Neck: normal ROM - Cardiovascular Rhythm: regular - Neurologic Neurologic: focal deficits - Psychiatric Psychiatric: A&O x's 3 Results CBC & Chem 7: 10/02/17 11:53 10/02/17 11:53 Labs: Abnormal Lab Results - Last 24 Hours (Table) 10/02/17 10/02/17 10/03/17 Range/Units 11:53 11:53 06:38 WBC 13.2 H (3.8-10.6) k/uL Hct 49.4 H (34.0-46.0) % Neutrophils # 8.9 H (1.3-7.7) k/uL Chloride 93 L (98-107) mmol/L Carbon Dioxide 36 H (22-30) mmol/L C-Reactive Protein 30.1 H (<10.0) mg/L Assessment and Plan Assessment: Assessment: 1. Occipital neuralgia 2. Cervicogenic headaches 3. Cervical spondylosis 4. Multiple sclerosis Plan: 1. After discussing the risks and benefits of occipital nerve blocks patient we will proceed with bilateral occipital nerve blocks. 2. Patient is to follow up with her regular pain management physician for further evaluation and possible therapies for occipital neuralgia and cervicogenic headaches. PQRS Measure Charge Sheet PQRS Narrative: Smoking Status Current every day smoker Do You Want the Pneumonia Vaccine Up to Date Vaccine AT THIS TIME? Blood Pressure [Right Arm] 94/63 Blood Pressure 125/67 Pain Intensity [Chest] 0 Pain Intensity [Head] 5 Pain Intensity [Back] 0 Pain Intensity 8 Pain Scale Used Numeric (1 - 10) Scale Used Numeric (1 - 10) Home Medications: Ambulatory Orders Albuterol Inhaler [Ventolin Hfa Inhaler] 2 puff INHALATION RT-Q6H PRN 02/20/14 Aspirin 81 mg PO DAILY 02/20/14 Cholecalciferol [Vitamin D3] 1,000 units PO DAILY 02/20/14 Fluticasone Propionate [Flonase] 2 spray EA NOSTRIL DAILY PRN 02/20/14 LORazepam [Ativan] 1 mg PO TID PRN 02/20/14 Meclizine [Antivert] 25 mg PO TID PRN 02/20/14 Methocarbamol 500 mg PO Q6H PRN 02/20/14 Montelukast [Singulair] 10 mg PO HS 02/20/14 Multivit with Calcium,Iron,Min [Women's Daily Multivitamin] 1 tab PO DAILY 02/20 PARoxetine HCL [Paxil] 40 mg PO DAILY 02/20/14 Verapamil HCl 120 mg PO DAILY 02/20/14 Beclomethasone Dipropionate [Qvar 80 mcg] 2 puff INHALATION RT-BID 08/19/16 Gabapentin [Neurontin] 1,200 mg PO TID 08/19/16 Ranitidine HCl [Zantac] 150 mg PO BID 08/19/16 Albuterol Nebulized [Ventolin Nebulized] 2.5 mg INHALATION RT-QID 03/25/17 Butalb/APAP/Caff 50-325-40Mg [Fioricet 50-325-40] 1 tab PO BID PRN 03/25/17 Dimethyl Fumarate [Tecfidera] 240 mg PO BID 03/25/17 Nystatin 100,000Unit/gm Cream [Mycostatin Cream] 1 applic TOPICAL BID 03/25/17 Nystatin 100,000 Unit/ml Susp [Mycostatin Oral Susp] 500,000 unit PO QID #28 cup 03/30/17 predniSONE 10 mg PO DAILY #30 tab 03/30/17 Memantine [Namenda] 10 mg PO AC-SUPPER 10/02/17
--- NOTE | 2017-10-03 11:25 | P.PCN ---
Date of Procedure: 10/03/17 Preoperative Diagnosis: 1. Occipital neuralgia 2. Cervicogenic headaches Postoperative Diagnosis: 1. Occipital neuralgia 2. Cervicogenic headaches Procedure(s) Performed: Procedure: 1. Bilateral occipital nerve block ANESTHESIA: None EBL: None PROCEDURE INDICATION: The patient with neck pain and headache secondary to occipital neuralgia unresponsive to conservative treatments. PROCEDURE DESCRIPTION / TECHNIQUE: The patient was seen and identified in the preoperative area. Risks, benefits, complications, and alternatives were discussed with the patient, the patient agreed to proceed with the procedure and signed the consent. Vital signs remained stable throughout the procedure. Patient was brought to the preoperative holding area. The patient was placed in the sitting position. The cervical area and right occiptial area were prepped with alcohol swab. The external occipital protuberance was palpated and identified, occipital artery was identified both left and right just lateral to the protuberance. Just medial to the occipital artery, I inserted a 25-gauge 1- 1/2 inch needle until the occiput was contacted. After negative aspiration for blood, I injected 3 ML's of 0.25% bupivacaine preservative-free with 5 mg dexamethasone at each left and right greater occipital nerve. Vital signs were closely monitored during the procedure. Patient tolerated procedure well. No acute complications.
[2017-10-03] MEDS: CHOLECALCIFEROL 1,000 UNIT TAB PO SCH (12:13)
[2017-10-03] MEDS: MULTIVITAMINS, THERA 1 EACH TAB PO SCH (12:13)
[2017-10-03] MEDS: METHOCARBAMOL 500 MG TAB PO PRN (13:17)
--- NOTE | 2017-10-03 17:34 | P.PN ---
Subjective Progress Note Date: 10/03/17 Principal diagnosis: Uncontrolled occipital neuralgia This is a 52-year-old -[place] female patient of Dr. Tabares with past medical history of asthma, uterine cancer status post hysterectomy and radiation , fibromyalgia, COPD, gastroesophageal reflux disease, hypertension, osteoarthritis and osteoporosis, MS currently on Tecfedera , after she was on Copaxone for quite sometime, she has been under the care of from neurology Dr. Ramirez for quite sometime now and today she came to the emergency department at [facility] because of the left sided throbbing headache that is different to the migraine headache that she had before, and she has no dizziness or lightheadedness with that. She has no blurred vision or double vision with that she has no dysphasia with that she is having some issues with her throat she stated that she wants her thyroid to be checked, while she was in the ER developed to have some chest discomfort and the patient to the subsequently was admitted to the hospital for evaluation, neurology consultation was obtained. Patient underwent left heart catheterization that was done back in March 2017 that was negative for coronary artery disease. 10/03, patient was seen by pain management anesthesia, underwent occipital nerve block bilaterally today 10/03/2017, also seen by neurology, patient's symptoms are not significantly better however she still 1-2 hours post injection. Patient denies any lightheadedness no dizziness, no diplopia, no motor weakness , underlying history of multiple sclerosis Objective - Vital Signs Vital signs: Vital Signs Temp 98.3 F 10/03/17 15:35 Pulse 76 10/03/17 15:41 Resp 16 10/03/17 15:41 BP 123/67 10/03/17 15:35 Pulse Ox 95 10/03/17 15:35 Intake & Output 10/02/17 10/03/17 10/03/17 18:59 06:59 18:59 Intake Total 240 Balance 240 Weight 107.4 kg Intake: Oral 240 Other: Voiding Method Toilet Toilet Toilet # Voids 2 - Constitutional General appearance: Present: cooperative, no acute distress - EENT Eyes: Present: anicteric sclerae, PERRLA, dentition normal, normal appearance ENT: Present: NA/AT, normal oropharynx - Neck Neck: Present: normal ROM. Absent: lymphadenopathy, other, rigidity, stridor, thyromegaly - Respiratory Respiratory: bilateral: CTA, negative: dullness, rales, wheezing - Cardiovascular Rhythm: regular Heart sounds: normal: S1, S2 - Gastrointestinal General gastrointestinal: Present: normal bowel sounds, soft - Integumentary Integumentary: Present: normal, normal turgor - Neurologic Neurologic: Present: CNII-XII intact - Musculoskeletal Musculoskeletal: Present: gait normal, strength equal bilaterally - Psychiatric Psychiatric: Present: A&O x's 3, appropriate affect - Labs CBC & Chem 7: 10/02/17 11:53 10/02/17 11:53 Labs: Abnormal Lab Results - Last 24 Hours (Table) 10/03/17 Range/Units 06:38 C-Reactive Protein 30.1 H (<10.0) mg/L Assessment and Plan Plan: 1. Chest pain likely noncardiac in view of her recent stress test that was negative for stress-induced ischemia and a normal echocardiogram that showed LV function of 65% with mild mitral regurgitation about 6 month ago, and she also had left heart catheterization March 2017 that was negative for coronary artery disease, however she'll be admitted to the hospital for observation and cardiac biomarkers 2 and then if it's negative can be discharged home. 2. Intractable left frontal headache secondary to uncontrolled occipital neuralgia, 7 status post occipital nerve block bilaterally by pain management on Computed tomography scan of the brain was negative we will monitor the patient very closely continue Fioricet obtain neurology consultation . MRA of the brain repeated for aneurysm at the level of robinson of [place]. Continue to receive Fioricet, Toradol 30 mg every 6 hours IV for additional pain control. Continue on gabapentin 1200 mg 3 times a day 3. Relapsing remitting multiple sclerosis. Continue Tecfidera 240 mg orally twice every day. 4. Hypertension and hypertensive cardiovascular disease. Continue verapamil 120 mg orally once every day. 5. Obesity with possible obstructive sleep apnea and obesity hypoventilation syndrome. 6. Asthma/COPD. Continue Symbicort as well as nebulized treatment 4 times every day. Support with oxygen as needed. 7. Fibromyalgia. Continue gabapentin 1200 mg orally 3 times every day, continue Robaxin 500 mg orally 4 times every day. 8. ALLERGIC rhinitis . Continue Flonase nasal spray 2 sprays in each nostril once every day, continue with singular 10 mg at bedtime . 9. Depressive disorder. Continue paroxetine 40 mg orally once every day. 10. Chronic tobacco use and dependence. Smoking cessation and counseling an increased risk of CAD, CVA, and malignancy. Continue nicotine patch 1 mg once every day. 11. DVT prophylaxis. Heparin 5000 units subcutaneously every 8 hours, bilateral knee-high MAYUR hose. 12. GI prophylaxis. Continue patient on pepcid 20 mg orally bid. 13. Observation. Anticipate discharge in the next 24 hours
[2017-10-03] MEDS: KETOROLAC 30 MG/ML 1 ML VIAL IVP SCH (17:37)
--- NOTE | 2017-10-03 18:23 | P.PN ---
Subjective Progress Note Date: 10/03/17 This patient is a 52-year-old female who was admitted to hospital for intractable headache pain. On examination yesterday she was noted to have bilateral occipital neuritis. She also gave a history of sudden onset of severe left-sided headache pain unusual for her. There is a family history of cerebral aneurysm and for this reason it was recommended she undergo a MRA tejon of [place] to rule out acute cerebral aneurysm as a cause of her headaches. Patient had MRA done yesterday which came back negative with no evidence of aneurysmal change in the level of the tejon of [place]. We reviewed these results today with the patient. She was happy to know that the study came back negative. She did undergo bilateral occipital nerve block procedure today and this should help a great deal in relieving much of her headache pain. At this time the patient still feels pain but it may take a day or 2 for the full effect of this procedure. Patient does have multiple other medical problems including history of MS as well as fibromyalgia. She should continue with her current MS treatment plan with Tecfidera. She is receiving. Set then toward all as needed for breakthrough pain. She may be considered for discharge home tomorrow with further follow-up as outpatient. As noted it may take a few days for the effect of the occipital nerve block to show improvement. Once again no evidence of cerebral aneurysm based on her MRA study that was done yesterday. We will continue to follow her closely as needed. Her overall prognosis at this time remains guarded. Objective - Vital Signs Vital signs: Vital Signs Temp 98 F 10/03/17 10:26 Pulse 72 10/03/17 12:00 Resp 16 10/03/17 12:00 BP 121/75 10/03/17 12:00 Pulse Ox 97 10/03/17 12:00 Intake & Output 10/02/17 10/03/17 10/03/17 18:59 06:59 18:59 Intake Total 240 Balance 240 Weight 107.4 kg Intake: Oral 240 Other: Voiding Method Toilet Toilet Toilet # Voids 2 - Exam Physical Examination: PHYSICAL EXAMINATION: Patient is resting comfortably in bed. VITAL SIGNS: Blood pressure is [121/75]. Heart rate is [72]. Respiration is [16 for the use 98.0]. Temperature is []. HEENT: Head is atraumatic, neck is supple, there were no carotid bruits. CHEST: Lungs are clear to auscultation and percussion. CARDIAC: S1, S2 normal rate and rhythm. There is no murmur. ABDOMEN: Soft and nontender. Bowel sounds are present. EXTREMITIES: There is no pedal edema. Peripheral pulses are present. Neurological examination: Patient's neurological examination is unchanged from yesterday. She continues to have mild to moderate degree of occipital tenderness to palpation. - Labs CBC & Chem 7: 10/02/17 11:53 10/02/17 11:53 Labs: Abnormal Lab Results - Last 24 Hours (Table) 10/03/17 Range/Units 06:38 C-Reactive Protein 30.1 H (<10.0) mg/L Assessment and Plan (1) Intractable headache Current Visit: Yes Status: Acute Code(s): R51 - HEADACHE SNOMED Code(s): 18030649 (2) Occipital neuritis Current Visit: Yes Status: Acute Code(s): M54.81 - OCCIPITAL NEURALGIA SNOMED Code(s): 32125701 (3) History of multiple sclerosis Current Visit: Yes Status: Acute Code(s): Z86.69 - PERSONAL HISTORY OF DIS OF THE NERVOUS SYS AND SENSE ORGANS SNOMED Code(s): 823148990 (4) Fibromyalgia Current Visit: Yes Status: Acute Code(s): M79.7 - FIBROMYALGIA SNOMED Code (s): 709558410 (5) Chest pain Current Visit: Yes Status: Acute Code(s): R07.9 - CHEST PAIN, UNSPECIFIED SNOMED Code(s): 39826763 Plan: This patient is a 52-year-old female who was admitted yesterday with intractable headache pain. She was found to have evidence of occipital neuritis. There is also history of cerebral aneurysm in the family. She underwent MRA of the te[place] of [place] yesterday which came back normal for her age with no evidence of any aneurysm. She underwent bilateral occipital nerve block procedure today and we will need to wait to see her response to this treatment. She still has moderate degree of occipital pain on palpation. We reviewed the results of the MRA today with the patient. She feels pleased that there is no evidence of any cerebral aneurysm as her mother had cerebral aneurysm surgery. She otherwise has been doing about the same and should continue with analgesics as needed for pain management. She may be considered for discharge home tomorrow with follow-up as outpatient. Overall prognosis at this time remains guarded.
[2017-10-03] MEDS: MONTELUKAST 10 MG TAB PO SCH (20:18)
[2017-10-04] MEDS: MORPHINE SULFATE 2 MG/ML SYRINGE IV PRN ×3 (00:02→10:55)
[2017-10-04] MEDS: METHOCARBAMOL 500 MG TAB PO PRN ×2 (00:03→13:55)
[2017-10-04] MEDS: KETOROLAC 30 MG/ML 1 ML VIAL IVP SCH ×4 (00:03→18:42)
[2017-10-04] MEDS: BUTALB/APAP/CAFF 50-325-40MG TAB PO PRN ×2 (08:16→21:59)
[2017-10-04] MEDS: NICOTINE 14MG/24HR PATCH TRANSDERM SCH (08:16)
[2017-10-04] MEDS: NYSTATIN 100,000 UNIT/ML SUSP 500,000 UNIT/5 ML CUP PO SCH ×4 (08:16→21:59)
[2017-10-04] MEDS: GABAPENTIN 400 MG CAP PO SCH ×3 (08:17→21:58)
[2017-10-04] MEDS: PARoxetine 20 MG TAB PO SCH (08:17)
[2017-10-04] MEDS: HYDROCHLOROTHIAZIDE 25 MG TAB PO SCH (08:17)
[2017-10-04] MEDS: FAMOTIDINE 20 MG TAB PO SCH ×2 (08:17→21:59)
[2017-10-04] MEDS: VERAPAMIL SR 120 MG TABLET.ER PO SCH (08:17)
[2017-10-04] MEDS: Dimethyl Fumarate [Tecfidera] PO SCH ×2 (08:18→21:57)
[2017-10-04] MEDS: ALBUTEROL NEBULIZED 2.5 MG/3 ML INHALATION SCH ×4 (08:23→20:13)
[2017-10-04] MEDS: BUDESONIDE 1 MG/2 ML NEBU INHALATION SCH ×2 (08:23→20:13)
[2017-10-04] MEDS: LORazepam 1 MG TAB PO PRN ×2 (08:27→17:10)
[2017-10-04] MEDS: ASPIRIN 81 MG PO SCH (10:55)
[2017-10-04] MEDS: CHOLECALCIFEROL 1,000 UNIT TAB PO SCH (13:56)
[2017-10-04] MEDS: MULTIVITAMINS, THERA 1 EACH TAB PO SCH (13:56)
--- NOTE | 2017-10-04 15:29 | XR ---
EXAMINATION TYPE: XR chest 2V DATE OF EXAM: 10/04/2017 COMPARISON: Chest x-ray from 2 days ago HISTORY: COPD, supraclavicular swelling after right-sided neck nerve block. TECHNIQUE: Frontal and lateral views of the chest are obtained. FINDINGS: There is chronic parenchymal change without suspicious focal air space opacity, pleural ef fusion, or pneumothorax seen. The cardiac silhouette size remains enlarged. The osseous structures are intact. IMPRESSION: Chronic changes and cardiomegaly without acute pulmonary process. No significant change from prior.
--- NOTE | 2017-10-04 15:43 | XR ---
EXAMINATION TYPE: XR cervical spine limited DATE OF EXAM: 10/04/2017 TECHNIQUE: Frontal, lateral, and open mouth view of the cervical spine are obtained. HISTORY: pain swelling supraclavicular right neck pain after nerve block. COMPARISON: Cervical spine x-ray June 01, 2012. CT cervical spine August 29, 2016. FINDINGS: The cervical spine is visualized in its entirety from C1 thru the top of T1 level, it is s traightened in alignment without evidence of acute fracture or dislocation. The pre-vertebral soft t issue appears within normal limits. The C1-C2 articulation is within normal limits on the open mouth view. Vertebral body heights and disc space heights are maintained. Mild anterior spurring inferior C5 endplate is redemonstrated. Overlying soft tissue is unremarkable. IMPRESSION: Straightening of spine with mild spurring C5 level. No significant change from prior CT.
[2017-10-04] MEDS: oxyCODONE-APAP 10-325MG 1 EACH TAB PO PRN (17:10)
--- NOTE | 2017-10-04 17:17 | P.PN ---
Subjective Principal diagnosis: Uncontrolled occipital neuralgia This is a 52-year-old -[place] female patient of Dr. Tabares with past medical history of asthma, uterine cancer status post hysterectomy and radiation , fibromyalgia, COPD, gastroesophageal reflux disease, hypertension, osteoarthritis and osteoporosis, MS currently on Tecfedera , after she was on Copaxone for quite sometime, she has been under the care of from neurology Dr. Ramirez for quite sometime now and today she came to the emergency department at [facility] because of the left sided throbbing headache that is different to the migraine headache that she had before, and she has no dizziness or lightheadedness with that. She has no blurred vision or double vision with that she has no dysphasia with that she is having some issues with her throat she stated that she wants her thyroid to be checked, while she was in the ER developed to have some chest discomfort and the patient to the subsequently was admitted to the hospital for evaluation, neurology consultation was obtained. Patient underwent left heart catheterization that was done back in March 2017 that was negative for coronary artery disease. 10/03, patient was seen by pain management anesthesia, underwent occipital nerve block bilaterally today 10/03/2017, also seen by neurology, patient's symptoms are not significantly better however she still 1-2 hours post injection. Patient denies any lightheadedness no dizziness, no diplopia, no motor weakness , underlying history of multiple sclerosis 10/04, patient still complaining of neck pain, however she notices prominence in bilateral supraclavicular region, without any crepitation. Patient denies any trauma to the bilateral neck area,cough. Patient declined an early discharge at this time, and once this investigated. We discussed CAT scan chest against cervical x-ray and chest x-ray, and patient have decided on radiological x-rays instead of CAD. Doubt pneumothorax or subcutaneous emphysema, suspected local lymphedema with supraclavicular fat pad. Morphine to be discontinued IV today, and switch over to home dose of Percocet 10 test 3-5 3 times a day when necessary, also patient takes Ativan at home 1 mg every 8 hours when necessary Objective - Vital Signs Vital signs: Vital Signs Temp 97.0 F L 10/04/17 13:56 Pulse 84 10/04/17 16:08 Resp 18 10/04/17 13:56 BP 107/62 10/04/17 13:56 Pulse Ox 97 10/04/17 13:56 Intake & Output 10/03/17 10/04/17 10/04/17 18:59 06:59 18:59 Intake Total 240 Balance 240 Intake: Oral 240 Other: Voiding Method Toilet Toilet # Voids 3 1 - Constitutional General appearance: Present: cooperative, no acute distress, obese - EENT Eyes: Present: anicteric sclerae, EOMI, PERRLA, dentition normal, normal appearance ENT: Present: NA/AT, normal oropharynx - Neck Neck: Present: normal ROM (Supraclavicular prominence, no lymph node no mass symmetric bilateral patient) - Respiratory Respiratory: bilateral: CTA, negative: diminished, dullness, rales - Cardiovascular Rhythm: regular Heart sounds: normal: S1, S2 Abnormal Heart Sounds: Absent: systolic murmur, diastolic murmur, rub, S3 Gallop , S4 Gallop, click, other - Gastrointestinal General gastrointestinal: Present: normal bowel sounds, soft - Integumentary Integumentary: Present: decreased turgor, normal - Neurologic Neurologic: Present: CNII-XII intact - Musculoskeletal Musculoskeletal: Present: gait normal, strength equal bilaterally - Psychiatric Psychiatric: Present: A&O x's 3, appropriate affect, intact judgment & insight - Labs CBC & Chem 7: 10/02/17 11:53 10/02/17 11:53 Assessment and Plan Plan: 1. Chest pain likely noncardiac in view of her recent stress test that was negative for stress-induced ischemia and a normal echocardiogram that showed LV function of 65% with mild mitral regurgitation about 6 month ago, and she also had left heart catheterization March 2017 that was negative for coronary artery disease, however she'll be admitted to the hospital for observation and cardiac biomarkers 2 and then if it's negative can be discharged home. 2. Intractable left frontal headache secondary to uncontrolled occipital neuralgia, 7 status post occipital nerve block bilaterally by pain management on Computed tomography scan of the brain was negative we will monitor the patient very closely continue Fioricet obtain neurology consultation . MRA of the brain repeated for aneurysm at the level of [place]. Continue to receive Fioricet, Toradol 30 mg every 6 hours IV for additional pain control. Continue on gabapentin 1200 mg 3 times a day 3. Relapsing remitting multiple sclerosis. Continue Tecfidera 240 mg orally twice every day. 4. Hypertension and hypertensive cardiovascular disease. Continue verapamil 120 mg orally once every day. 5. Obesity with possible obstructive sleep apnea and obesity hypoventilation syndrome. 6. Asthma/COPD. Continue Symbicort as well as nebulized treatment 4 times every day. Support with oxygen as needed. 7. Fibromyalgia. Continue gabapentin 1200 mg orally 3 times every day, continue Robaxin 500 mg orally 4 times every day. 8. ALLERGIC rhinitis . Continue Flonase nasal spray 2 sprays in each nostril once every day, continue with singular 10 mg at bedtime . 9. Depressive disorder. Continue paroxetine 40 mg orally once every day. 10. Chronic tobacco use and dependence. Smoking cessation and counseling an increased risk of CAD, CVA, and malignancy. Continue nicotine patch 1 mg once every day. 11. DVT prophylaxis. Heparin 5000 units subcutaneously every 8 hours, bilateral knee-high MAYUR hose. 12. GI prophylaxis. Continue patient on pepcid 20 mg orally bid. 13. Observation. Anticipate discharge in the next 24 hours
--- NOTE | 2017-10-04 18:28 | P.PN ---
Subjective Progress Note Date: 10/04/17 This patient is a 52-year-old female who was admitted to hospital for intractable headache pain. On examination yesterday she was noted to have bilateral occipital neuritis. She also gave a history of sudden onset of severe left-sided headache pain unusual for her. There is a family history of cerebral aneurysm and for this reason it was recommended she undergo a MRA [place] to rule out acute cerebral aneurysm as a cause of her headaches. Patient had MRA done yesterday which came back negative with no evidence of aneurysmal change in the level of the [place]. We reviewed these results today with the patient. She was happy to know that the study came back negative. She did undergo bilateral occipital nerve block procedure today and this should help a great deal in relieving much of her headache pain. At this time the patient still feels pain but it may take a day or 2 for the full effect of this procedure. Patient does have multiple other medical problems including history of MS as well as fibromyalgia. She should continue with her current MS treatment plan with Tecfidera which she is receiving. Continue with analgesics as needed for breakthrough pain. She may be considered for discharge home tomorrow with further follow-up as outpatient. As noted it may take a few days for the effect of the occipital nerve block to show improvement. There is been improvement with her occipital headache pain today as compared to yesterday. Once again it may take up to a week for her to fill the full effect of this recent occipital nerve block procedure. Patient is complaining of some discomfort in the right supraclavicular region of the shoulder. There does not appear to be any significant swelling in this area. She did have a x-ray of the cervical spine done today which revealed only straightening of the spine with mild spurring at C5 level. No significant change from prior CT. Unclear as to the symptom that she is feeling. May consider consultation with surgery in regards to further evaluation. Once again no evidence of cerebral aneurysm based on her MRA study that was done on Thursday. We will continue to follow her closely as needed. Her overall prognosis at this time remains guarded. Objective - Vital Signs Vital signs: Vital Signs Temp 97.0 F L 10/04/17 13:56 Pulse 84 10/04/17 16:08 Resp 18 10/04/17 13:56 BP 107/62 10/04/17 13:56 Pulse Ox 97 10/04/17 13:56 Intake & Output 10/03/17 10/04/17 10/04/17 18:59 06:59 18:59 Intake Total 240 Balance 240 Intake: Oral 240 Other: Voiding Method Toilet Toilet # Voids 3 1 - Exam Physical Examination: PHYSICAL EXAMINATION: Patient is resting comfortably in bed. VITAL SIGNS: Blood pressure is [107/62]. Heart rate is [74]. Respiration is [18] . Temperature is [97.0]. HEENT: Head is atraumatic, neck is supple, there were no carotid bruits. CHEST: Lungs are clear to auscultation and percussion. CARDIAC: S1, S2 normal rate and rhythm. There is no murmur. ABDOMEN: Soft and nontender. Bowel sounds are present. EXTREMITIES: There is no pedal edema. Peripheral pulses are present. Neurological examination: Patient's neurological examination is unchanged from yesterday. She continues to have mild to moderate degree of occipital tenderness to palpation. - Labs CBC & Chem 7: 10/02/17 11:53 10/02/17 11:53 Assessment and Plan (1) Intractable headache Current Visit: Yes Status: Acute Code(s): R51 - HEADACHE SNOMED Code(s): 33216474 (2) Occipital neuritis Current Visit: Yes Status: Acute Code(s): M54.81 - OCCIPITAL NEURALGIA SNOMED Code(s): 29883197 (3) History of multiple sclerosis Current Visit: Yes Status: Acute Code(s): Z86.69 - PERSONAL HISTORY OF DIS OF THE NERVOUS SYS AND SENSE ORGANS SNOMED Code(s): 230569590 (4) Fibromyalgia Current Visit: Yes Status: Acute Code(s): M79.7 - FIBROMYALGIA SNOMED Code (s): 419570721 (5) Chest pain Current Visit: Yes Status: Acute Code(s): R07.9 - CHEST PAIN, UNSPECIFIED SNOMED Code(s): 52106817 Plan: This patient is a 52-year-old female initially admitted to hospital with intractable headache. She underwent bilateral occipital nerve block procedure yesterday by anesthesia. Her headache pain has improved from initial admission quality of pain. She has noticed improvement since her block was done yesterday. Today she is feeling better but has been noticing some fullness and swelling around the right supraclavicular region. Would recommend surgery evaluation or consultation. She underwent x-ray of the cervical spine which came back negative for any acute changes. Patient is to be switched to oral analgesics for management of her pain. The occipital nerve block procedures seems to have worked and anticipated May take even a few more days to see the maximum effect. This was explained to the patient today in detail. As noted she did undergo an MRA of the [place] on Thursday which came back negative for any cerebral aneurysm. There is strong family history of cerebral aneurysm. We will continue to follow her progress closely and anticipate she will be discharged home soon. Overall prognosis at this time remains guarded.
[2017-10-04] MEDS ORDERED: MELATONIN 3 MG TABLET PO SCH (21:00)
[2017-10-04] MEDS: MONTELUKAST 10 MG TAB PO SCH (21:59)
[2017-10-05] MEDS: oxyCODONE-APAP 10-325MG 1 EACH TAB PO PRN ×3 (00:30→13:30)
[2017-10-05] MEDS: METHOCARBAMOL 500 MG TAB PO PRN ×3 (00:30→15:38)
[2017-10-05] MEDS: KETOROLAC 30 MG/ML 1 ML VIAL IVP SCH ×4 (00:31→16:19)
[2017-10-05 06:21] VITALS: BP 99/63; RESP 18; TEMP 98.9
[2017-10-05] MEDS: BUTALB/APAP/CAFF 50-325-40MG TAB PO PRN (06:54)
[2017-10-05 07:14] LABS: Glucose,Whole Blood 103 mg/dL (75-99)
[2017-10-05] MEDS: BUDESONIDE 1 MG/2 ML NEBU INHALATION SCH (08:07)
[2017-10-05] MEDS: ALBUTEROL NEBULIZED 2.5 MG/3 ML INHALATION SCH ×3 (08:07→15:41)
[2017-10-05] MEDS: FAMOTIDINE 20 MG TAB PO SCH (08:20)
[2017-10-05] MEDS: NICOTINE 14MG/24HR PATCH TRANSDERM SCH (08:20)
[2017-10-05] MEDS: Dimethyl Fumarate [Tecfidera] PO SCH (08:21)
[2017-10-05] MEDS: VERAPAMIL SR 120 MG TABLET.ER PO SCH (08:21)
[2017-10-05] MEDS: HYDROCHLOROTHIAZIDE 25 MG TAB PO SCH (08:21)
[2017-10-05] MEDS: PARoxetine 20 MG TAB PO SCH (08:21)
[2017-10-05] MEDS: ASPIRIN 81 MG PO SCH (08:21)
[2017-10-05] MEDS: NYSTATIN 100,000 UNIT/ML SUSP 500,000 UNIT/5 ML CUP PO SCH ×2 (08:21→12:05)
[2017-10-05] MEDS: GABAPENTIN 400 MG CAP PO SCH ×2 (08:21→16:20)
[2017-10-05] MEDS: LORazepam 1 MG TAB PO PRN ×2 (08:28→16:47)
[2017-10-05 08:44] LABS: Anion Gap 10 mmol/L; Blood Urea Nitrogen 14 mg/dL (7-17); Calcium 9.1 mg/dL (8.4-10.2); Carbon Dioxide 38 mmol/L (22-30); Chloride 92 mmol/L (98-107); Glucose 125 mg/dL (74-99); Potassium 4.2 mmol/L (3.5-5.1); Sodium 140 mmol/L (137-145)
[2017-10-05 08:48] LABS: Basophils # (A) 0.1 k/uL (0-0.2); Basophils % (A) 1 %; Eosinophils # (A) 0.2 k/uL (0-0.7); Eosinophils % (A) 2 %; HCT 43.6 % (34.0-46.0); Hypochromasia Slight; Lymphocytes # (A) 2.9 k/uL (1.0-4.8); Lymphocytes % (A) 30 %; MCH 30.6 pg (25.0-35.0); MCHC 32.1 g/dL (31.0-37.0); MCV 95.3 fL (80.0-100.0); Mean Platelet Volume 7.4; Monocytes # (A) 0.5 k/uL (0-1.0); Monocytes % (A) 5 %; Neutrophils % (A) 61 %; Platelet Count 269 k/uL (150-450); RBC 4.58 m/uL (3.80-5.40); RDW 13.8 % (11.5-15.5); WBC 9.8 k/uL (3.8-10.6)
[2017-10-05] MEDS: MULTIVITAMINS, THERA 1 EACH TAB PO SCH (12:06)
[2017-10-05] MEDS: CHOLECALCIFEROL 1,000 UNIT TAB PO SCH (12:06)
[2017-10-05 15:19] LABS: Appearance,Urine Clear (Clear); Bilirubin,Urine Negative (Negative); Blood,Urine Negative (Negative); Color,Urine Yellow; Glucose,Urine (UA) Negative (Negative); Ketones,Urine Negative (Negative); Leukocyte Esterase,Urine Negative (Negative); Nitrite,Urine Negative (Negative); PH, Urine 6.5 (5.0-8.0); Protein,Urine Negative (Negative); Urobilinogen,Urine <2.0 mg/dL (<2.0)
[2017-10-05 15:43] VITALS: PULSE 90
--- NOTE | 2017-10-05 17:35 | P.DS ---
Providers Date of admission: 10/02/17 13:43 Expected date of discharge: 10/05/17 Attending physician: Yolanda Redd Consults: 10/02/17 13:44 Consult Physician Routine Consulting Provider: Linda Chi Consult Reason/Comments: MS, Headache Do you want consulting provider notified?: Yes 10/03/17 07:00 Consult to Anesthesia Routine Consulting Provider: Anesthesia,Services Consult Reason/Comments: Bilateral occiptial nerve blocks. Primary care physician: Kilo Tabares [facility] Course: This is a 52-year-old -[place] female patient of Dr. Tabares with past medical history of asthma, uterine cancer status post hysterectomy and radiation , fibromyalgia, COPD, gastroesophageal reflux disease, hypertension, osteoarthritis and osteoporosis, MS currently on Tecfedera , after she was on Copaxone for quite sometime, she has been under the care of from neurology Dr. Ramirez for quite sometime now and today she came to the emergency department at [facility] because of the left sided throbbing headache that is different to the migraine headache that she had before, and she has no dizziness or lightheadedness with that. She has no blurred vision or double vision with that she has no dysphasia with that she is having some issues with her throat she stated that she wants her thyroid to be checked, while she was in the ER developed to have some chest discomfort and the patient to the subsequently was admitted to the hospital for evaluation, neurology consultation was obtained. Patient underwent left heart catheterization that was done back in March 2017 that was negative for coronary artery disease. 10/03, patient was seen by pain management anesthesia, underwent occipital nerve block bilaterally today 10/03/2017, also seen by neurology, patient's symptoms are not significantly better however she still 1-2 hours post injection. Patient denies any lightheadedness no dizziness, no diplopia, no motor weakness , underlying history of multiple sclerosis 10/04, patient still complaining of neck pain, however she notices prominence in bilateral supraclavicular region, without any crepitation. Patient denies any trauma to the bilateral neck area,cough. Patient declined an early discharge at this time, and once this investigated. We discussed CAT scan chest against cervical x-ray and chest x-ray, and patient have decided on radiological x-rays instead of CAD. Doubt pneumothorax or subcutaneous emphysema, suspected local lymphedema with supraclavicular fat pad. Morphine to be discontinued IV today, and switch over to home dose of Percocet 10 test 3-5 3 times a day when necessary, also patient takes Ativan at home 1 mg every 8 hours when necessary 10/05: Patient's doing better, complains of inital dysuria, most likely related to pad use for incontinence, urinalysis was negative, patient is to follow-up with her on neurology's Dr. Ramirez, and PCP for follow-up. X-rays failed to reveal any pathology is in the supraclavicular prominence, it has improved today most likely transient lymphedema from steroid injection occipital neuralgia FINAL DIAGNOSIS 1. Chest pain likely noncardiac in view of her recent stress test that was negative for stress-induced ischemia and a normal echocardiogram that showed LV function of 65% with mild mitral regurgitation about 6 month ago, and she also had left heart catheterization March 2017 that was negative for coronary artery disease, however she'll be admitted to the hospital for observation and cardiac biomarkers 2 and then if it's negative can be discharged home. 2. Intractable left frontal headache secondary to uncontrolled occipital neuralgia, 7 status post occipital nerve block bilaterally by pain management on Computed tomography scan of the brain was negative we will monitor the patient very closely continue Fioricet obtain neurology consultation . MRA of the brain repeated for aneurysm at the level of [place]. Continue to receive Fioricet, Toradol 30 mg every 6 hours IV for additional pain control. Continue on gabapentin 1200 mg 3 times a day 3. Relapsing remitting multiple sclerosis. Continue Tecfidera 240 mg orally twice every day. 4. Hypertension and hypertensive cardiovascular disease. Continue verapamil 120 mg orally once every day. 5. Obesity with possible obstructive sleep apnea and obesity hypoventilation syndrome. 6. Asthma/COPD. Continue Symbicort as well as nebulized treatment 4 times every day. Support with oxygen as needed. 7. Fibromyalgia. Continue gabapentin 1200 mg orally 3 times every day, continue Robaxin 500 mg orally 4 times every day. 8. ALLERGIC rhinitis . Continue Flonase nasal spray 2 sprays in each nostril once every day, continue with singular 10 mg at bedtime . 9. Depressive disorder. Continue paroxetine 40 mg orally once every day. 10. Chronic tobacco use and dependence. Smoking cessation and counseling an increased risk of CAD, CVA, and malignancy. Continue nicotine patch 1 mg once every day. 11. DVT prophylaxis. Heparin 5000 units subcutaneously every 8 hours, bilateral knee-high MAYUR hose. 12. GI prophylaxis. Continue patient on pepcid 20 mg orally bid. 13Chronic pain follows with Dr. Ramirez for chronic pain management also, no opiates given insulin discharge Procedures done, occipital nerve block bilateral, by antesthesia pain management on 10/03/2017 Discharge Medication List Albuterol Inhaler [Ventolin Hfa Inhaler] 2 puff INHALATION RT-Q6H PRN 02/20/14 [ History] Aspirin 81 mg PO DAILY 02/20/14 [History] Cholecalciferol [Vitamin D3] 1,000 units PO DAILY 02/20/14 [History] Fluticasone Propionate [Flonase] 2 spray EA NOSTRIL DAILY PRN 02/20/14 [History] LORazepam [Ativan] 1 mg PO TID PRN 02/20/14 [History] Meclizine [Antivert] 25 mg PO TID PRN 02/20/14 [History] Methocarbamol 500 mg PO Q6H PRN 02/20/14 [History] Montelukast [Singulair] 10 mg PO HS 02/20/14 [History] Multivit with Calcium,Iron,Min [Women's Daily Multivitamin] 1 tab PO DAILY 02/20 [History] PARoxetine HCL [Paxil] 40 mg PO DAILY 02/20/14 [History] Verapamil HCl 120 mg PO DAILY 02/20/14 [History] Beclomethasone Dipropionate [Qvar 80 mcg] 2 puff INHALATION RT-BID 08/19/16 [ History] Gabapentin [Neurontin] 1,200 mg PO TID 08/19/16 [History] Ranitidine HCl [Zantac] 150 mg PO BID 08/19/16 [History] Albuterol Nebulized [Ventolin Nebulized] 2.5 mg INHALATION RT-QID 03/25/17 [ History] Butalb/APAP/Caff 50-325-40Mg [Fioricet 50-325-40] 1 tab PO BID PRN 03/25/17 [ History] Dimethyl Fumarate [Tecfidera] 240 mg PO BID 03/25/17 [History] predniSONE 10 mg PO DAILY #30 tab 03/30/17 [Rx] Memantine [Namenda] 10 mg PO AC-SUPPER 10/02/17 [History] Hydrochlorothiazide [Hydrodiuril] 25 mg PO DAILY tab 10/05/17 [Rx] Melatonin 6 mg PO HS tablet 10/05/17 [Rx] Methocarbamol [Robaxin] 500 mg PO Q6H PRN #60 tab 10/05/17 [Rx] Nicotine 14Mg/24Hr Patch [Habitrol] 1 patch TRANSDERM DAILY #30 patch 10/05/17 [ Rx] Nystatin 100,000 Unit/ml Susp [Mycostatin Oral Susp] 500,000 unit PO QID #28 cup 10/05/17 [Rx] oxyCODONE-APAP 10-325MG [Percocet 10-325 mg] 1 each PO Q6H PRN tab 10/05/17 [Rx ] Patient Condition at Discharge: Stable Plan - Discharge Summary Discharge Rx Participant: Yes New Discharge Prescriptions: New Hydrochlorothiazide [Hydrodiuril] 25 mg PO DAILY tab Melatonin 6 mg PO HS tablet Methocarbamol [Robaxin] 500 mg PO Q6H PRN #60 tab PRN Reason: MUSCLE Pain Nicotine 14Mg/24Hr Patch [Habitrol] 1 patch TRANSDERM DAILY #30 patch oxyCODONE-APAP 10-325MG [Percocet 10-325 mg] 1 each PO Q6H PRN tab PRN Reason: Pain Continue Fluticasone Propionate [Flonase] 2 spray EA NOSTRIL DAILY PRN PRN Reason: Allergy Symptoms Montelukast [Singulair] 10 mg PO HS Meclizine [Antivert] 25 mg PO TID PRN PRN Reason: Vertigo Albuterol Inhaler [Ventolin Hfa Inhaler] 2 puff INHALATION RT-Q6H PRN PRN Reason: Wheezing PARoxetine HCL [Paxil] 40 mg PO DAILY LORazepam [Ativan] 1 mg PO TID PRN PRN Reason: Anxiety Aspirin 81 mg PO DAILY Verapamil HCl 120 mg PO DAILY Multivit with Calcium,Iron,Min [Women's Daily Multivitamin] 1 tab PO DAILY Methocarbamol 500 mg PO Q6H PRN PRN Reason: Pain Cholecalciferol [Vitamin D3] 1,000 units PO DAILY Ranitidine HCl [Zantac] 150 mg PO BID Gabapentin [Neurontin] 1,200 mg PO TID Beclomethasone Dipropionate [Qvar 80 mcg] 2 puff INHALATION RT-BID Albuterol Nebulized [Ventolin Nebulized] 2.5 mg INHALATION RT-QID Butalb/APAP/Caff 50-325-40Mg [Fioricet 50-325-40] 1 tab PO BID PRN PRN Reason: Headache Dimethyl Fumarate [Tecfidera] 240 mg PO BID predniSONE 10 mg PO DAILY #30 tab Memantine [Namenda] 10 mg PO AC-SUPPER Nystatin 100,000 Unit/ml Susp [Mycostatin Oral Susp] 500,000 unit PO QID #28 cup Discontinued Nystatin 100,000Unit/gm Cream [Mycostatin Cream] 1 applic TOPICAL BID Discharge Medication List Albuterol Inhaler [Ventolin Hfa Inhaler] 2 puff INHALATION RT-Q6H PRN 02/20/14 [ History] Aspirin 81 mg PO DAILY 02/20/14 [History] Cholecalciferol [Vitamin D3] 1,000 units PO DAILY 02/20/14 [History] Fluticasone Propionate [Flonase] 2 spray EA NOSTRIL DAILY PRN 02/20/14 [History] LORazepam [Ativan] 1 mg PO TID PRN 02/20/14 [History] Meclizine [Antivert] 25 mg PO TID PRN 02/20/14 [History] Methocarbamol 500 mg PO Q6H PRN 02/20/14 [History] Montelukast [Singulair] 10 mg PO HS 02/20/14 [History] Multivit with Calcium,Iron,Min [Women's Daily Multivitamin] 1 tab PO DAILY 02/20 [History] PARoxetine HCL [Paxil] 40 mg PO DAILY 02/20/14 [History] Verapamil HCl 120 mg PO DAILY 02/20/14 [History] Beclomethasone Dipropionate [Qvar 80 mcg] 2 puff INHALATION RT-BID 08/19/16 [ History] Gabapentin [Neurontin] 1,200 mg PO TID 08/19/16 [History] Ranitidine HCl [Zantac] 150 mg PO BID 08/19/16 [History] Albuterol Nebulized [Ventolin Nebulized] 2.5 mg INHALATION RT-QID 03/25/17 [ History] Butalb/APAP/Caff 50-325-40Mg [Fioricet 50-325-40] 1 tab PO BID PRN 03/25/17 [ History] Dimethyl Fumarate [Tecfidera] 240 mg PO BID 03/25/17 [History] predniSONE 10 mg PO DAILY #30 tab 03/30/17 [Rx] Memantine [Namenda] 10 mg PO AC-SUPPER 10/02/17 [History] Hydrochlorothiazide [Hydrodiuril] 25 mg PO DAILY tab 10/05/17 [Rx] Melatonin 6 mg PO HS tablet 10/05/17 [Rx] Methocarbamol [Robaxin] 500 mg PO Q6H PRN #60 tab 10/05/17 [Rx] Nicotine 14Mg/24Hr Patch [Habitrol] 1 patch TRANSDERM DAILY #30 patch 10/05/17 [ Rx] Nystatin 100,000 Unit/ml Susp [Mycostatin Oral Susp] 500,000 unit PO QID #28 cup 10/05/17 [Rx] oxyCODONE-APAP 10-325MG [Percocet 10-325 mg] 1 each PO Q6H PRN tab 10/05/17 [Rx ] Follow up Appointment(s)/Referral(s): Carolynn Ramirez MD [STAFF PHYSICIAN] - 1 Week (Office will call you at home to schedule appointment) Kilo Tabares MD [Primary Care Provider] - 1-2 days (Office closed, call for appt) Patient Instructions/Handouts: Neck Pain (DC) Discharge Disposition: HOME SELF-CARE
== END 2017-10-05 17:08 | disposition home or self-care (01) ==
LOC: EC 11:06 → 3OBS 13:43 → 4MS4W 10-03 18:39
PROVIDERS: ADMIT Internal Medicine; ATTEND Internal Medicine
DX: R07.89 Other chest pain (principal); M54.81 Occipital neuralgia; G35 Multiple sclerosis; I11.9 Hypertensive heart disease without heart failure; Z68.41 Body mass index [BMI] 40.0-44.9, adult; J44.9 Chronic obstructive pulmonary disease, unspecified; M79.7 Fibromyalgia; F32.9 Major depressive disorder, single episode, unspecified; F17.200 Nicotine dependence, unspecified, uncomplicated; G89.29 Other chronic pain; K21.9 Gastro-esophageal reflux disease without esophagitis; M19.90 Unspecified osteoarthritis, unspecified site; R42 Dizziness and giddiness; M81.0 Age-related osteoporosis without current pathological fracture; Z85.42 Personal history of malignant neoplasm of other parts of uterus; Z92.3 Personal history of irradiation; Z82.49 Family history of ischemic heart disease and other diseases of the circulatory system; Z82.3 Family history of stroke; Z82.41 Family history of sudden cardiac death; Z79.82 Long term (current) use of aspirin; Z79.899 Other long term (current) drug therapy; Z79.51 Long term (current) use of inhaled steroids; Z88.0 Allergy status to penicillin; M47.812 Spondylosis without myelopathy or radiculopathy, cervical region; F41.9 Anxiety disorder, unspecified; E66.01 Morbid (severe) obesity due to excess calories; Z99.81 Dependence on supplemental oxygen; R63.0 Anorexia; D72.829 Elevated white blood cell count, unspecified; R30.0 Dysuria
CPT/HCPCS: 99285 ×2; 96374 ×2; 96375 ×3; 96376 ×2; 36415; 94640 ×7; 94760; 93005 ×2; 64405; 80053; 80048; 85652; 82550 ×2; 82553 ×2; 83735; 84484 ×2; 85025 ×2; 85610; 85730; 86140; 81003; 86038; 87086; 72040; 71046 ×2; 70450; 70544; G0378 ×4; S4990 ×4; J2765; J1885 ×4; J2270 ×3

== ENCOUNTER → 2017-10-30 | Outpatient (CLI) | payer MEDICARE, OTHER ==
[2017-10-30 17:37] LABS: Calcium 9.6 mg/dL (8.4-10.2)
[2017-10-30 17:51] LABS: T4, Free (Free Thyroxine) 1.03 ng/dL (0.78-2.19)
[2017-10-31 01:15] LABS: Folate, Serum 9.2 ng/mL; Vitamin D 25 Hydroxy 35.2 ng/mL (30.0-100.0)
[2017-10-31 01:49] LABS: Hepatitis A Antibody IgM Non-Reactive (Non-Reactive); Hepatitis B Core IgM Non-Reactive (Non-Reactive)
[2017-10-31 01:51] LABS: Hemoglobin A1C 6.1 % (4.0-6.0)
[2017-10-31 01:52] LABS: HIV AB P24 Non-Reactive (Non-Reactive); HIV P24 AG Non-Reactive (Non-Reactive)
== END | disposition home or self-care (01) ==
LOC: LABWHC1 15:20
PROVIDERS: ATTEND Psychiatry & Neurology Pain Medicine
DX: G35 Multiple sclerosis (principal)
CPT/HCPCS: 36415; 80074; 82306; 82310; 82607; 82746; 83036; 84207; 84439; 84443; 84481; 84591; 87390

== ENCOUNTER 2018-01-28 09:02 | Inpatient (IN) | payer MEDICARE, OTHER ==
[2018-01-28] MEDS ORDERED: METOCLOPRAMIDE 5 MG/ML 2 ML VIAL IVP STA (09:43)
[2018-01-28] MEDS ORDERED: diphenhydrAMINE 50 MG/ML 1 ML VIAL IVP STA (09:43)
[2018-01-28] MEDS ORDERED: SODIUM CHLORIDE 0.9% 1,000 ML IV STA (09:43)
[2018-01-28] MEDS ORDERED: KETOROLAC 30 MG/ML 1 ML VIAL IVP STA (09:45)
[2018-01-28] MEDS ORDERED: methylPREDNISolone SOD SUCCI 250 MG in SODIUM CHLORIDE 0.9% 100 ML IVPB STA (09:45)
[2018-01-28 10:16] LABS: Anisocytosis Slight; Basophils # (A) 0.1 k/uL (0-0.2); Basophils % (A) 0 %; Eosinophils # (A) 0.2 k/uL (0-0.7); Eosinophils % (A) 1 %; HCT 45.7 % (34.0-46.0); HGB 13.7 gm/dL (11.4-16.0); Hypochromasia Marked; Lymphocytes # (A) 2.5 k/uL (1.0-4.8); Lymphocytes % (A) 14 %; MCH 28.5 pg (25.0-35.0); MCHC 30.1 g/dL (31.0-37.0); Mean Platelet Volume 7.5; Monocytes # (A) 0.8 k/uL (0-1.0); Monocytes % (A) 5 %; Neutrophils # (A) 14.4 k/uL (1.3-7.7); Neutrophils % (A) 79 %; Platelet Count 276 k/uL (150-450); RBC 4.81 m/uL (3.80-5.40); RDW 16.2 % (11.5-15.5); WBC 18.2 k/uL (3.8-10.6)
[2018-01-28 10:18] LABS: ALT 27 U/L (9-52); AST 34 U/L (14-36); Albumin 3.8 g/dL (3.5-5.0); Alkaline Phosphatase 76 U/L (38-126); Anion Gap 7 mmol/L; Blood Urea Nitrogen 9 mg/dL (7-17); Calcium 8.9 mg/dL (8.4-10.2); Carbon Dioxide 37 mmol/L (22-30); Chloride 94 mmol/L (98-107); Glucose 142 mg/dL (74-99); Potassium 4.4 mmol/L (3.5-5.1); Sodium 138 mmol/L (137-145); Total Bilirubin 0.7 mg/dL (0.2-1.3); Total Protein 6.3 g/dL (6.3-8.2)
--- NOTE | 2018-01-28 10:40 | CT ---
EXAMINATION TYPE: CT brain wo con DATE OF EXAM: 01/28/2018 COMPARISON: 10/02/2017 HISTORY: headache x4 days CT DLP: 964.6 mGycm Automated exposure control for dose reduction was used. FINDINGS: Intracranial atherosclerotic changes noted. No midline shift or mass effect. Calvarium intact. No acu te hemorrhage. Ventricular size is compatible with the patient's age. IMPRESSION: NO ACUTE INTRACRANIAL HEMORRHAGE OR MASS EFFECT. IF THERE IS CONCERN FOR ACUTE ISCHEMIA CORRELATE WIT H MRI CLINICALLY WARRANTED.
--- NOTE | 2018-01-28 10:42 | XR ---
EXAMINATION TYPE: XR chest 2V DATE OF EXAM: 01/28/2018 COMPARISON: 10/04/2017 TECHNIQUE: PA and lateral views submitted. HISTORY: Pain FINDINGS: The lungs are clear and there is no pneumothorax, pleural effusion, or focal pneumonia. Arthropathy of the shoulders. There is mild cardiomegaly. Interstitium stable. IMPRESSION: 1. Stable cardiomegaly. Mild prominence of interstitium is unchanged from prior exam may represent ch ronic interstitial lung disease or congestion correlate clinically.
--- NOTE | 2018-01-28 10:53 | ED ---
Headache HPI - General Chief Complaint: Headache Stated Complaint: decreased mobility Time Seen by Provider: 01/28/18 09:22 Source: RN notes reviewed, old records reviewed Mode of arrival: EMS Limitations: no limitations - History of Present Illness Initial Comments: 82-year-old female with a history of MS presents emergency department today with chief complaint of a headache for the past 5 days. She states she's had frequent falls, she states that on Thursday she fell and hit her head on the dresser. Patient states that she hasn't having increased tremors. She states that she is also having some episodes of chest pain, last episode was 2 days ago. She denies any recent fevers or chills. She denies any vomiting but does report associated nausea. Denies any current chest pain at this time. Patient states that when she was having the chest pain felt her heart was fluttering. Patient reports that she sees Dr. Brito, and she had nerve injections on Thursday for chronic headaches. She reports that they are not helping. - Related Data Home Medications Medication Instructions Recorded Confirmed Albuterol Inhaler [Ventolin Hfa 2 puff INHALATION RT-Q6H PRN 02/20/14 11/02/17 Inhaler] Aspirin 81 mg PO DAILY 02/20/14 11/02/17 Cholecalciferol [Vitamin D3] 1,000 units PO DAILY 02/20/14 11/02/17 Fluticasone Propionate [Flonase] 2 spray EA NOSTRIL DAILY PRN 02/20/14 11/02/17 LORazepam [Ativan] 1 mg PO TID PRN 02/20/14 11/02/17 Meclizine [Antivert] 25 mg PO TID PRN 02/20/14 11/02/17 Methocarbamol 500 mg PO Q6H PRN 02/20/14 11/02/17 Montelukast [Singulair] 10 mg PO HS 02/20/14 11/02/17 Multivit with Calcium,Iron,Min 1 tab PO DAILY 02/20/14 11/02/17 [Women's Daily Multivitamin] PARoxetine HCL [Paxil] 40 mg PO DAILY 02/20/14 11/02/17 Verapamil HCl 120 mg PO DAILY 02/20/14 11/02/17 Beclomethasone Dipropionate [Qvar 2 puff INHALATION RT-BID 08/19/16 11/02/17 80 mcg] Gabapentin [Neurontin] 1,200 mg PO TID 08/19/16 11/02/17 Ranitidine HCl [Zantac] 150 mg PO BID 08/19/16 11/02/17 Albuterol Nebulized [Ventolin 2.5 mg INHALATION RT-QID 03/25/17 11/02/17 Nebulized] Butalb/APAP/Caff 50-325-40Mg 1 tab PO BID PRN 03/25/17 11/02/17 [Fioricet 50-325-40] Dimethyl Fumarate [Tecfidera] 240 mg PO BID 03/25/17 11/02/17 Memantine [Namenda] 10 mg PO AC-SUPPER 10/02/17 11/02/17 Previous Rx's Medication Instructions Recorded predniSONE 10 mg PO DAILY #30 tab 03/30/17 Hydrochlorothiazide [Hydrodiuril] 25 mg PO DAILY tab 10/05/17 Melatonin 6 mg PO HS tablet 10/05/17 Methocarbamol [Robaxin] 500 mg PO Q6H PRN #60 tab 10/05/17 Nicotine 14Mg/24Hr Patch [Habitrol] 1 patch TRANSDERM DAILY #30 patch 10/05/17 Nystatin 100,000 Unit/ml Susp 500,000 unit PO QID #28 cup 10/05/17 [Mycostatin Oral Susp] oxyCODONE-APAP 10-325MG [Percocet 1 each PO Q6H PRN tab 10/05/17 10-325 mg] Allergies Allergy/AdvReac Type Severity Reaction Status Date / Time penicillin G AdvReac Itching Verified 10/30/17 13:12 Review of Systems ROS Statement: Those systems with pertinent positive or pertinent negative responses have been documented in the HPI. ROS Other: All systems not noted in ROS Statement are negative. Past Medical History Past Medical History: Asthma, Cancer, COPD, Fibromyalgia, GERD/Reflux, Hypertension, Neurologic Disorder, Osteoarthritis (OA), Syncope Additional Past Medical History / Comment(s): Rheumatic fever, heart murmur, osteoporosis, chronic bronchitis, MS,vertigo, lexiscan stress test. 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 History of Any Multi-Drug Resistant Organisms: None Reported Past Surgical History: Bladder Surgery, Heart Catheterization, Hysterectomy Additional Past Surgical History / Comment(s): uterine cancer, radiation, Past Anesthesia/Blood Transfusion Reactions: No Reported Reaction Additional Past Anesthesia/Blood Transfusion Reaction / Comment(s): mild clausterphobia Past Psychological History: Anxiety, Depression Smoking Status: Current every day smoker - Past Family History Mother Family Medical History: CVA/TIA, Myocardial Infarction ([place]) Additional Family Medical History / Comment(s): Mother is alive at age 72 with history of brain aneurysm, 3 strokes and 2 myocardial infarctions. Father Additional Family Medical History / Comment(s): Father at age 72 from a cardiac arrest thought to be due to a myocardial infarction. Sister(s) Additional Family Medical History / Comment(s): Patient has 2 sisters with no major medical problems. Patient does not have any brothers. Patient has 2 children ages 33 and 26 with no major medical problems. General Exam - General Exam Comments Initial Comments: 52-year-old female. Alert and oriented. No significant distress. Limitations: no limitations General appearance: alert, in no apparent distress Head exam: Present: atraumatic, normocephalic, normal inspection Eye exam: Present: normal appearance, PERRL, EOMI. Absent: scleral icterus, conjunctival injection, periorbital swelling ENT exam: Present: normal exam, mucous membranes moist Neck exam: Present: normal inspection. Absent: tenderness, meningismus, lymphadenopathy Respiratory exam: Present: normal lung sounds bilaterally. Absent: respiratory distress, wheezes, rales, rhonchi, stridor Cardiovascular Exam: Present: regular rate, normal rhythm, normal heart sounds. Absent: systolic murmur, diastolic murmur, rubs, gallop, clicks GI/Abdominal exam: Present: soft, normal bowel sounds. Absent: distended, tenderness, guarding, rebound, rigid Extremities exam: Present: normal inspection, full ROM, normal capillary refill. Absent: tenderness, pedal edema, joint swelling, calf tenderness Back exam: Present: normal inspection Neurological exam: Present: alert (Shows evidence of tremors a bilateral extremities and hands.nd hands), oriented X3, CN II-XII intact, other (Shows evidence of tremors and hands) Psychiatric exam: Present: normal affect, normal mood Skin exam: Present: warm, dry, intact, normal color. Absent: rash Course Vital Signs 01/28/18 01/28/18 09:11 11:57 Temperature 99.0 F Pulse Rate 83 81 Respiratory 18 18 Rate Blood Pressure 139/75 114/77 O2 Sat by Pulse 94 L 94 L Oximetry - Reevaluation(s) Reevaluation #1: 01/28/18 11:32 Patient is reevaluated and resting comfortably bed. She reports her headache is somewhat diminishing. She denies any current chest pain. Informed of her abnormal troponin result. She states that when she is having chest pain was 2 days ago. 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 Rajan. At this time her main complaint is a tremor central bowel movements a weakness in her extremities. Patient started Patient on IV Solu-Medrol for MS exacerbation. 01/28/18 11:44 Medical Decision Making - Medical Decision Making 52-year-old female presented to the emergency department today with tremors, weakness multiple falls. She is concerned for MS exacerbation, headache. He does have no focal deficits. She does have some caries or lower jaw recent upper extremities on exam. They are diminished with distract movement. Patient did complain of a headache with her falls. He did a computed tomography scan which was negative for any acute process. EKG showed normal sinus rhythm with some premature superventricular beats. Patient at this time has reported that she had chest pain 2 days ago lasting 30 minutes at a time. I did check a troponin today and is elevated. She denies any active chest pain. We will put the Patient on heparin repeating troponins, and Cardiology intact consult. Patient will be admitted for MS exacerbation as well started on IV Solu-Medrol. - Lab Data Result diagrams: 01/28/18 09:50 01/28/18 09:50 Lab Results 01/28/18 01/28/18 01/28/18 Range/Units 09:50 09:50 09:50 WBC 18.2 H (3.8-10.6) k/uL RBC 4.81 (3.80-5.40) m/uL Hgb 13.7 (11.4-16.0) gm/dL Hct 45.7 (34.0-46.0) % MCV 95.0 (80.0-100.0) fL MCH 28.5 (25.0-35.0) pg MCHC 30.1 L (31.0-37.0) g/dL RDW 16.2 H (11.5-15.5) % Plt Count 276 (150-450) k/uL Neutrophils % 79 % Lymphocytes % 14 % Monocytes % 5 % Eosinophils % 1 % Basophils % 0 % Neutrophils # 14.4 H (1.3-7.7) k/uL Lymphocytes # 2.5 (1.0-4.8) k/uL Monocytes # 0.8 (0-1.0) k/uL Eosinophils # 0.2 (0-0.7) k/uL Basophils # 0.1 (0-0.2) k/uL Hypochromasia Marked Anisocytosis Slight PT (9.0-12.0) sec INR (<1.2) APTT (22.0-30.0) sec Sodium 138 (137-145) mmol/L Potassium 4.4 (3.5-5.1) mmol/L Chloride 94 L (98-107) mmol/L Carbon Dioxide 37 H (22-30) mmol/L Anion Gap 7 mmol/L BUN 9 (7-17) mg/dL Creatinine 0.66 (0.52-1.04) mg/dL Est GFR (CKD-EPI)AfAm >90 (>60 ml/min/1.73 sqM) Est GFR (CKD-EPI)NonAf >90 (>60 ml/min/1.73 sqM) Glucose 142 H (74-99) mg/dL Calcium 8.9 (8.4-10.2) mg/dL Total Bilirubin 0.7 (0.2-1.3) mg/dL AST 34 (14-36) U/L ALT 27 (9-52) U/L Alkaline Phosphatase 76 (38-126) U/L Troponin I 0.149 H* (0.000-0.034) ng/mL Total Protein 6.3 (6.3-8.2) g/dL Albumin 3.8 (3.5-5.0) g/dL 01/28/18 Range/Units 09:50 WBC (3.8-10.6) k/uL RBC (3.80-5.40) m/uL Hgb (11.4-16.0) gm/dL Hct (34.0-46.0) % MCV (80.0-100.0) fL MCH (25.0-35.0) pg MCHC (31.0-37.0) g/dL RDW (11.5-15.5) % Plt Count (150-450) k/uL Neutrophils % % Lymphocytes % % Monocytes % % Eosinophils % % Basophils % % Neutrophils # (1.3-7.7) k/uL Lymphocytes # (1.0-4.8) k/uL Monocytes # (0-1.0) k/uL Eosinophils # (0-0.7) k/uL Basophils # (0-0.2) k/uL Hypochromasia Anisocytosis PT 11.1 (9.0-12.0) sec INR 1.2 H (<1.2) APTT 22.5 (22.0-30.0) sec Sodium (137-145) mmol/L Potassium (3.5-5.1) mmol/L Chloride (98-107) mmol/L Carbon Dioxide (22-30) mmol/L Anion Gap mmol/L BUN (7-17) mg/dL Creatinine (0.52-1.04) mg/dL Est GFR (CKD-EPI)AfAm (>60 ml/min/1.73 sqM) Est GFR (CKD-EPI)NonAf (>60 ml/min/1.73 sqM) Glucose (74-99) mg/dL Calcium (8.4-10.2) mg/dL Total Bilirubin (0.2-1.3) mg/dL AST (14-36) U/L ALT (9-52) U/L Alkaline Phosphatase (38-126) U/L Troponin I (0.000-0.034) ng/mL Total Protein (6.3-8.2) g/dL Albumin (3.5-5.0) g/dL 01/28/18 11:01 EKG shows normal sinus rhythm with premature supraventricular complexes. Otherwise normal EKG. Ventricular rate of 88 bpm. AL interval 154 ms. . She adventist 82 ms. QT QTc is 382/462 ms. - Radiology Data Radiology results: report reviewed No acute intracranial hemorrhage or mass effect. If there is concern for acute ischemia correlate with MRI as clinically warranted. Chest x-ray shows stable cardiomegaly. Mild prominence of the interstitium unchanged from prior exam a represent chronic interstitial lung disease or congestion. Disposition Clinical Impression: NSTEMI (non-ST elevated myocardial infarction), Exacerbation of multiple sclerosis Disposition: ADMITTED IP TO THIS HOSP Condition: Stable Referrals: Kilo Tabares MD [Primary Care Provider] - 1-2 days Time of Disposition: 12:25
[2018-01-28] MEDS ORDERED: MORPHINE SULFATE 4 MG/ML SYRINGE IV PRN (11:37)
[2018-01-28] MEDS ORDERED: NITROGLYCERIN SL TABS 0.4 MG TAB SUBLINGUAL PRN (11:37)
[2018-01-28] MEDS ORDERED: HEPARIN SODIUM,PORCINE 5,000 UNIT/ML 1 ML VIAL IV ONE (11:37)
[2018-01-28] MEDS: HEPARIN SOD,PORK IN 0.45% NACL 25,000 UNIT in 0.45% NACL 1 500ML.BAG IV SCH (12:11)
[2018-01-28 12:18] LABS: INR 1.2 (<1.2); Partial Thromboplastin Time 22.5 sec (22.0-30.0); Prothrombin Time 11.1 sec (9.0-12.0)
[2018-01-28] MEDS ORDERED: ALBUTEROL NEBULIZED 2.5 MG/3 ML INHALATION PRN (13:39)
[2018-01-28] MEDS ORDERED: MECLIZINE 25 MG TAB PO PRN (13:39)
--- NOTE | 2018-01-28 15:50 | P.CRDCN ---
<Cathy Goodrich E - Last Filed: 01/28/18 15:32> History of Present Illness Consult date: 01/28/18 Requesting physician: Deneen Thomason Consult reason: chest pain Chief complaint: Headaches, falls History of present illness: This is a 52-year-old -[place] female with history of nicotine dependence, asthma, COPD, hypertension, uterine cancer with prior radiation, multiple sclerosis, history of rheumatic fever with heart murmur. She presents to the hospital with complaints of severe headache and associated falls. According to the patient, she did get a pain injection a few days ago that didn' t seem to give her any relief like he usually does Dr. Conrad's office. She also states that she's been having episodes where her entire body shakes and she falls to the ground. According to the patient she gets intermittent discomfort in the chest which she describes as a sharp stabbing sensation. CAT scan of the brain did not reveal any acute intracranial hemorrhage or mass effect. Chest x-ray showed stable cardiomegaly, mild prominence of interstitial is unchanged from prior exam and may represent chronic interstitial lung disease or congestion. EKG shows normal sinus rhythm with nonspecific ST-T wave changes. Blood pressure on arrival here 138/70 with a heart rate in the 80s, 94% on 4 L of oxygen, temperature 99.0. Weight blood cell count 18.2, hemoglobin 13.7, platelet count 276. Sodium 138, potassium 4.4 , BUN 9, creatinine 0.6. Initial troponin 0.149. Patient was admitted to the hospital in March 2017 at that time with atypical chest pain similar to this presentation. Because of mild abnormality noted in her troponin on that admission she underwent a cardiac catheterization. Procedure revealed a normal coronary angiogram, normal left ventricular end-diastolic pressure, low normal left ventricular systolic function. At the time of my examination, she currently denies any chest discomfort in her breathing is stable. Past Medical History Past Medical History: Asthma, Cancer, COPD, Fibromyalgia, GERD/Reflux, Hypertension, Neurologic Disorder, Osteoarthritis (OA), Syncope Additional Past Medical History / Comment(s): Rheumatic fever, heart murmur, osteoporosis, headaches, chronic bronchitis, MS, vertigo, falls, uterine cancer with surgery/radiation. History of Any Multi-Drug Resistant Organisms: None Reported Past Surgical History: Bladder Surgery, Heart Catheterization, Hysterectomy Additional Past Surgical History / Comment(s): 2017 cardiac cath, bladder suspension, occipital nerve blocks, colonoscopy. Past Anesthesia/Blood Transfusion Reactions: No Reported Reaction Additional Past Anesthesia/Blood Transfusion Reaction / Comment(s): mild clausterphobia Smoking Status: Current every day smoker - Past Family History Mother Family Medical History: CVA/TIA, Myocardial Infarction ([place]) Additional Family Medical History / Comment(s): Mother is alive at age 72 with history of brain aneurysm, 3 strokes and 2 myocardial infarctions. Father Additional Family Medical History / Comment(s): Father at age 72 from a cardiac arrest thought to be due to a myocardial infarction. Sister(s) Additional Family Medical History / Comment(s): Patient has 2 sisters with no major medical problems. Patient does not have any brothers. Patient has 2 children ages 33 and 26 with no major medical problems. Medications and Allergies Home Medications Medication Instructions Recorded Confirmed Type Albuterol Inhaler [Ventolin Hfa 2 puff INHALATION RT-Q6H PRN 02/20/14 01/28/18 History Inhaler] Aspirin 81 mg PO DAILY 02/20/14 01/28/18 History Cholecalciferol [Vitamin D3] 1,000 units PO DAILY 02/20/14 01/28/18 History Fluticasone Propionate [Flonase] 2 spray EA NOSTRIL DAILY PRN 02/20/14 01/28/18 History LORazepam [Ativan] 1 mg PO TID PRN 02/20/14 01/28/18 History Meclizine [Antivert] 25 mg PO TID PRN 02/20/14 01/28/18 History Methocarbamol 500 mg PO Q6H PRN 02/20/14 01/28/18 History Montelukast [Singulair] 10 mg PO HS 02/20/14 01/28/18 History Multivit with Calcium,Iron,Min 1 tab PO DAILY 02/20/14 01/28/18 History [Women's Daily Multivitamin] PARoxetine HCL [Paxil] 40 mg PO DAILY 02/20/14 01/28/18 History Verapamil HCl 120 mg PO DAILY 02/20/14 01/28/18 History Beclomethasone Dipropionate [Qvar 2 puff INHALATION RT-BID 08/19/16 01/28/18 History 80 mcg] Gabapentin [Neurontin] 1,200 mg PO TID 08/19/16 01/28/18 History Ranitidine HCl [Zantac] 150 mg PO BID 08/19/16 01/28/18 History Albuterol Nebulized [Ventolin 2.5 mg INHALATION RT-QID 03/25/17 01/28/18 History Nebulized] Butalb/APAP/Caff 50-325-40Mg 1 tab PO BID PRN 03/25/17 01/28/18 History [Fioricet 50-325-40] Dimethyl Fumarate [Tecfidera] 240 mg PO BID 03/25/17 01/28/18 History predniSONE 10 mg PO DAILY #30 tab 03/30/17 01/28/18 Rx Memantine [Namenda] 10 mg PO AC-SUPPER 10/02/17 01/28/18 History Hydrochlorothiazide [Hydrodiuril] 25 mg PO DAILY tab 10/05/17 01/28/18 Rx Melatonin 6 mg PO HS tablet 10/05/17 01/28/18 Rx Methocarbamol [Robaxin] 500 mg PO Q6H PRN #60 tab 10/05/17 01/28/18 Rx Nicotine 14Mg/24Hr Patch [Habitrol] 1 patch TRANSDERM DAILY #30 patch 10/05/17 01/28/18 Rx Nystatin 100,000 Unit/ml Susp 500,000 unit PO QID #28 cup 10/05/17 01/28/18 Rx [Mycostatin Oral Susp] Cetirizine HCl [Zyrtec] 10 mg PO DAILY 01/28/18 01/28/18 History oxyCODONE-APAP 10-325MG [Percocet 1 each PO TID PRN 01/28/18 01/28/18 History 10-325 mg] Allergies Allergy/AdvReac Type Severity Reaction Status Date / Time penicillin G AdvReac Itching Verified 01/28/18 12:26 Physical Exam Vitals: Vital Signs Temp Pulse Resp BP Pulse Ox 01/28/18 14:20 97.9 F 83 181 H 152/76 94 L 01/28/18 11:57 81 18 114/77 94 L 01/28/18 09:11 99.0 F 83 18 139/75 94 L Intake and Output 01/28/18 01/28/18 01/28/18 06:59 14:59 22:59 Other: Weight 99.79 kg PHYSICAL EXAMINATION: GENERAL: 52-year-old -[place] female in no acute distress at the time of my examination HEENT: Head is atraumatic, normocephalic. Pupils equal, round. Sclera anicteric. Conjunctiva are clear. Mucous membranes of the mouth are moist. Neck is supple. There is no elevated jugular venous pressure. No carotid bruit is heard. HEART EXAMINATION: Heart S1 S2 1 systolic murmur is heard. CHEST EXAMINATION: Lungs are clear to auscultation and precussion. No chest wall tenderness is noted on palpation or with deep breathing. ABDOMEN: Soft, nontender. Bowel sounds are heard. No organomegaly noted. EXTREMITIES: 2+ peripheral pulses with no evidence of peripheral edema and no calf tenderness noted. NEUROLOGIC patient is awake, alert and oriented X3. . Results 01/28/18 09:50 01/28/18 09:50 Cardiac Enzymes 01/28/18 01/28/18 Range/Units 09:50 09:50 AST 34 (14-36) U/L Troponin I 0.149 H* (0.000-0.034) ng/mL Coagulation 01/28/18 Range/Units 09:50 PT 11.1 (9.0-12.0) sec APTT 22.5 (22.0-30.0) sec CBC 01/28/18 Range/Units 09:50 WBC 18.2 H (3.8-10.6) k/uL RBC 4.81 (3.80-5.40) m/uL Hgb 13.7 (11.4-16.0) gm/dL Hct 45.7 (34.0-46.0) % Plt Count 276 (150-450) k/uL Comprehensive Metabolic Panel 01/28/18 Range/Units 09:50 Sodium 138 (137-145) mmol/L Potassium 4.4 (3.5-5.1) mmol/L Chloride 94 L (98-107) mmol/L Carbon Dioxide 37 H (22-30) mmol/L BUN 9 (7-17) mg/dL Creatinine 0.66 (0.52-1.04) mg/dL Glucose 142 H (74-99) mg/dL Calcium 8.9 (8.4-10.2) mg/dL AST 34 (14-36) U/L ALT 27 (9-52) U/L Alkaline Phosphatase 76 (38-126) U/L Total Protein 6.3 (6.3-8.2) g/dL Albumin 3.8 (3.5-5.0) g/dL Current Medications Generic Name Dose Route Start Last Admin Trade Name Freq PRN Reason Stop Dose Admin Albuterol Sulfate 2.5 mg 01/28/18 13:39 Ventolin Nebulized INHALATION RT-Q6H PRN Wheezing Albuterol Sulfate 2.5 mg 01/28/18 16:00 Ventolin Nebulized INHALATION RT-QID [facility] Aspirin 81 mg 01/29/18 09:00 Aspirin PO DAILY [facility] Cholecalciferol 1,000 unit 01/29/18 12:00 Vitamin D3 PO 1200 [facility] Famotidine 20 mg 01/28/18 21:00 Pepcid PO BID [facility] Gabapentin 1,200 mg 01/28/18 16:00 Neurontin PO TID [facility] Hydrochlorothiazide 25 mg 01/29/18 09:00 Hydrodiuril PO DAILY [facility] Heparin Sodium/Sodium Chloride 500 mls @ 19.95 mls/hr 01/28/18 11:45 12:11 25,000 unit/ Sodium Chloride IV 10 units/kg/hr .Q24H [facility] 19.95 mls/hr Administration Protocol 10 UNITS/KG/HR Methylprednisolone Sodium 104 mls @ 100 mls/hr 01/28/18 18:00 Succinate 250 mg/ Sodium IVPB Chloride Q6HR [facility] Loratadine 10 mg 01/29/18 09:00 Claritin PO DAILY [facility] Lorazepam 1 mg 01/28/18 13:39 Ativan PO TID PRN Anxiety Meclizine HCl 25 mg 01/28/18 13:39 Antivert PO TID PRN Vertigo Melatonin 6 mg 01/28/18 21:00 Melatonin PO HS [facility] Memantine 10 mg 01/28/18 17:30 Namenda PO AC-SUPPER [facility] Methocarbamol 500 mg 01/28/18 13:39 Robaxin PO Q6H PRN Muscle Pain Montelukast Sodium 10 mg 01/28/18 21:00 Singulair PO HS [facility] Morphine Sulfate 4 mg 01/28/18 11:37 Morphine Sulfate (Inj) IV Q5M PRN Chest Pain Nitroglycerin 0.4 mg 01/28/18 11:37 Nitrostat SUBLINGUAL Q5M PRN Chest Pain Patient's Own Med ( 240 mg 01/28/18 21:00 Dimethyl Fumarate [ PO Tecfidera] 240 Mg) BID [facility] Paroxetine HCl 40 mg 01/29/18 09:00 Paxil PO DAILY [facility] Verapamil HCl 120 mg 01/29/18 09:00 Isoptin Sr PO DAILY [facility] Intake and Output 01/28/18 01/28/18 01/28/18 06:59 14:59 22:59 Other: Weight 99.79 kg Patient Weight 01/29/18 06:59 Weight 99.79 kg 01/28/18 09:50 01/28/18 09:50 EKG Interpretations (text) EKG shows normal sinus rhythm with nonspecific ST-T wave changes. Assessment and Plan Plan: Assessment and plan #1 headaches with associated tremors and falls. #2 atypical chest pain, EKG shows normal sinus rhythm with nonspecific ST-T wave changes, and initial troponin 0.1. Patient did undergo cardiac catheterization in March of last year with a similar presentation and mild abnormality in troponin, it revealed a normal coronary angiogram at that time. #3 hypertension #4 multiple sclerosis #5 asthma #6 GERD #7 nicotine dependence Plan We will obtain 2 subsequent troponins, we will also obtain an echocardiogram with Doppler study. As mentioned, patient did just undergo cardiac catheterization less than one year ago which revealed normal coronary angiogram in the setting of similar chest discomfort and mild abnormality in troponin. It appears he may be dealing more with a neurologic issue. We will continue to follow. DNP note has been reviewed, I agree with a documented findings and plan of care. Patient was seen and examined. <Pavan Aponte - Last Filed: 01/29/18 10:20> History of Present Illness History of present illness: Patient interviewed and examined. Her main complaint is headache and falls with a blood pressure that is fairly well controlled, minimally abnormal cardio enzymes with normal coronary arteries in 2017 that was performed response to chest discomfort and then immediately abnormal cardiac enzymes. At this time I don't see any specific cardiac issue. Please call us as needed Physical Exam Vitals: Vital Signs Temp Pulse Pulse Resp BP BP Pulse Ox 01/29/18 08:26 74 01/29/18 08:17 72 01/29/18 08:00 79 16 135/77 01/29/18 03:57 98.3 F 74 19 116/77 98 01/28/18 23:30 97.5 F L 80 17 99/68 94 L 01/28/18 21:48 80 01/28/18 21:36 78 20 01/28/18 20:00 97.1 F L 90 18 121/69 91 L 01/28/18 16:56 88 01/28/18 16:52 94 L 01/28/18 16:44 86 16 01/28/18 16:18 86 16 116/72 94 L 01/28/18 14:20 97.9 F 83 181 H 152/76 94 L 01/28/18 11:57 81 18 114/77 94 L Intake and Output 01/28/18 01/29/18 01/29/18 22:59 06:59 14:59 Intake Total 199.5 480 279.72 Output Total 0 Balance 199.5 480 279.72 Intake: Intake, IV Titration 199.5 279.72 Amount Heparin Sod,Pork in 0.45% 199.5 279.72 NaCl 25,000 unit In 0.45 % NaCl 1 500ml.bag @ 10 UNITS/KG/HR 19.95 mls/hr IV .Q24H [facility] Rx#: [id number] Oral 480 Output: Urine 0 Other: Voiding Method Toilet Toilet # Voids 1 # Bowel Movements 0 Weight 108.5 kg 106.1 kg Results 01/28/18 09:50 01/28/18 09:50 Cardiac Enzymes 01/28/18 01/28/18 01/28/18 Range/Units 09:50 09:50 16:42 AST 34 (14-36) U/L CK-MB (CK-2) 0.7 (0.0-2.4) ng/mL Troponin I 0.149 H* 0.076 H* (0.000-0.034) ng/mL 01/28/18 Range/Units 22:06 AST (14-36) U/L CK-MB (CK-2) 0.7 (0.0-2.4) ng/mL Troponin I 0.055 H* (0.000-0.034) ng/mL Coagulation 01/28/18 01/28/18 01/29/18 Range/Units 09:50 20:06 04:11 PT 11.1 (9.0-12.0) sec APTT 22.5 30.5 H 53.6 H (22.0-30.0) sec Lipids 01/29/18 Range/Units 04:11 Triglycerides 70 (<150) mg/dL Cholesterol 146 (<200) mg/dL HDL Cholesterol 40 (40-60) mg/dL Comprehensive Metabolic Panel 01/28/18 Range/Units 09:50 Sodium 138 (137-145) mmol/L Potassium 4.4 (3.5-5.1) mmol/L Chloride 94 L (98-107) mmol/L Carbon Dioxide 37 H (22-30) mmol/L BUN 9 (7-17) mg/dL Creatinine 0.66 (0.52-1.04) mg/dL Glucose 142 H (74-99) mg/dL Calcium 8.9 (8.4-10.2) mg/dL AST 34 (14-36) U/L ALT 27 (9-52) U/L Alkaline Phosphatase 76 (38-126) U/L Total Protein 6.3 (6.3-8.2) g/dL Albumin 3.8 (3.5-5.0) g/dL Current Medications Generic Name Dose Route Start Last Admin Trade Name Freq PRN Reason Stop Dose Admin Albuterol Sulfate 2.5 mg 01/28/18 13:39 Ventolin Nebulized INHALATION RT-Q6H PRN Wheezing Albuterol Sulfate 2.5 mg 01/28/18 16:00 01/29/18 08:17 Ventolin Nebulized INHALATION 2.5 mg RT-QID [facility] Administration Aspirin 81 mg 01/29/18 09:00 01/29/18 08:51 Aspirin PO 81 mg DAILY [facility] Administration Cholecalciferol 1,000 unit 01/29/18 12:00 01/29/18 08:52 Vitamin D3 PO 1,000 unit 1200 [facility] Administration Famotidine 20 mg 01/28/18 21:00 01/29/18 08:52 Pepcid PO 20 mg BID [facility] Administration Gabapentin 1,200 mg 01/28/18 16:00 01/28/18 21:07 Neurontin PO 1,200 mg TID [facility] Administration Heparin Sodium (Porcine) 0 unit 01/28/18 21:12 01/28/18 22:09 Heparin IV 4,000 unit PER PROTOCOL PRN Administration Low PTT Protocol Hydrochlorothiazide 25 mg 01/29/18 09:00 01/29/18 08:52 Hydrodiuril PO 25 mg DAILY [facility] Administration Heparin Sodium/Sodium Chloride 500 mls @ 19.95 mls/hr 01/28/18 11:45 08:58 25,000 unit/ Sodium Chloride IV 13 units/kg/hr .Q24H [facility] 25.94 mls/hr Administration Protocol 10 UNITS/KG/HR Methylprednisolone Sodium 104 mls @ 100 mls/hr 01/28/18 18:00 01/29/18 06:38 Succinate 250 mg/ Sodium IVPB 100 mls/hr Chloride Q6HR [facility] Administration Insulin Aspart 0 unit 01/28/18 21:24 01/29/18 06:38 Novolog SQ 4 unit ACHS [facility] Administration Protocol Loratadine 10 mg 01/29/18 09:00 01/29/18 08:52 Claritin PO 10 mg DAILY [facility] Administration Lorazepam 1 mg 01/28/18 13:39 01/29/18 08:57 Ativan PO 1 mg TID PRN Administration Anxiety Meclizine HCl 25 mg 01/28/18 13:39 Antivert PO TID PRN Vertigo Melatonin 6 mg 01/28/18 21:00 01/28/18 21:10 Melatonin PO Not Given HS [facility] Memantine 10 mg 01/28/18 17:30 01/28/18 17:16 Namenda PO 10 mg AC-SUPPER [facility] Administration Methocarbamol 500 mg 01/28/18 13:39 Robaxin PO Q6H PRN Muscle Pain Montelukast Sodium 10 mg 01/28/18 21:00 01/28/18 21:07 Singulair PO 10 mg HS [facility] Administration Morphine Sulfate 4 mg 01/28/18 11:37 Morphine Sulfate (Inj) IV Q5M PRN Chest Pain Nicotine 1 patch 01/28/18 20:00 01/28/18 21:07 Habitrol 21mg/24hr Patch TRANSDERM 1 patch Q24H [facility] Administration Nitroglycerin 0.4 mg 01/28/18 11:37 Nitrostat SUBLINGUAL Q5M PRN Chest Pain Patient's Own Med ( 240 mg 01/28/18 21:00 01/29/18 08:51 Dimethyl Fumarate [ PO 240 mg Tecfidera] 240 Mg) BID [facility] Administration Oxycodone/Acetaminophen 1 each 01/28/18 20:52 01/29/18 08:57 Percocet 10-325 PO 1 each TID PRN Administration Pain Paroxetine HCl 40 mg 01/29/18 09:00 01/29/18 08:52 Paxil PO 40 mg DAILY [facility] Administration Ropinirole HCl 0.25 mg 01/28/18 22:00 01/29/18 08:52 Requip PO 0.25 mg TID [facility] Administration Verapamil HCl 120 mg 01/29/18 09:00 01/29/18 09:06 Isoptin Sr PO 120 mg DAILY [facility] Administration Intake and Output 01/28/18 01/29/18 01/29/18 22:59 06:59 14:59 Intake Total 199.5 480 279.72 Output Total 0 Balance 199.5 480 279.72 Intake: Intake, IV Titration 199.5 279.72 Amount Heparin Sod,Pork in 0.45% 199.5 279.72 NaCl 25,000 unit In 0.45 % NaCl 1 500ml.bag @ 10 UNITS/KG/HR 19.95 mls/hr IV .Q24H [facility] Rx#: [id number] Oral 480 Output: Urine 0 Other: Voiding Method Toilet Toilet # Voids 1 # Bowel Movements 0 Weight 108.5 kg 106.1 kg 01/28/18 09:50 01/28/18 09:50
[2018-01-28] MEDS: ALBUTEROL NEBULIZED 2.5 MG/3 ML INHALATION SCH ×2 (16:44→21:34)
[2018-01-28] MEDS: methylPREDNISolone SOD SUCCI 250 MG in SODIUM CHLORIDE 0.9% 100 ML IVPB SCH ×2 (17:11→23:26)
[2018-01-28] MEDS: MEMANTINE 10 MG TAB PO SCH (17:16)
[2018-01-28] MEDS: GABAPENTIN 400 MG CAP PO SCH ×2 (17:16→21:07)
[2018-01-28 17:49] LABS: Creatine Kinase MB 0.7 ng/mL (0.0-2.4)
[2018-01-28 18:27] LABS: Troponin I 0.076 ng/mL (0.000-0.034)
[2018-01-28 19:44] LABS: Glucose,Whole Blood 160 mg/dL (75-99)
[2018-01-28] MEDS ORDERED: NICOTINE 21MG/24HR PATCH TRANSDERM SCH (20:00)
[2018-01-28] MEDS: DIMETHYL FUMARATE 240 MG PO SCH (20:32)
[2018-01-28] MEDS: MONTELUKAST 10 MG TAB PO SCH (21:07)
[2018-01-28] MEDS: FAMOTIDINE 20 MG TAB PO SCH (21:07)
[2018-01-28] MEDS: oxyCODONE-APAP 10-325MG 1 EACH TAB PO PRN (21:07)
[2018-01-28] MEDS: MELATONIN 3 MG TABLET PO SCH (21:10)
[2018-01-28] MEDS ORDERED: HEPARIN SODIUM,PORCINE 5,000 UNIT/ML 1 ML VIAL IV PRN (21:12)
--- NOTE | 2018-01-28 21:23 | P.HPIM ---
History of Present Illness H&P Date: 01/28/18 Chief Complaint: weakness and chest pain This is a 52-year-old -[place]ong[place] female patient of Dr. Tabares with past medical history of asthma, uterine cancer status post hysterectomy and radiation , fibromyalgia, COPD, gastroesophageal reflux disease, hypertension, osteoarthritis and osteoporosis, MS currently on Tecfedera , after she was on Copaxone for quite sometime, she has been under the care of from neurology Dr. Ramirez, and occipital neuralgi. she came to the emergency department at [facility] because of occipital headache that not relieved with injection to the occiput, ( unknown wether she had botox injection to this area but did not work She had occipital nerve block during her last admission here that helped and she has restlessness of both arms and leg and tremors, increasing weakness, blurred vision and resting chest pain non radiating for the past 2 days. she has bilateral lower leg weakness that she quivers then she falls down., she hit her head hitting the dresser prior to this admission. no loss of conciousness She has no blurred vision or double vision with that she has no dysphasia. while she was in the ER developed to have some chest discomfort and the patient to the subsequently was admitted to the hospital for evaluation, neurology consultation was obtained. Patient underwent left heart catheterization that was done back in March 2017 that was negative for coronary artery disease. in the ER troponins are 0.1 ekg showed no acute st t changes, ct brain failed to reveal any acute traumatic injury no cva changes. patient admitted for elevated troponin, chest pain, recurrent falls, MS exacerbation, occipital neuralgia persistent pain. consult with cardiology and neurology Review of Systems Constitutional: Reports as per HPI, Reports chills, Reports lethargy, Reports malaise, Reports weakness, Denies anorexia, Denies chronic headaches, Denies chronic pain, Denies daytime sleepiness, Denies fatigue, Denies fever, Denies night sweats, Denies poor appetite, Denies sweats, Denies weight gain, Denies weight loss Ears, nose, mouth and throat: Reports as per HPI, Denies ant. neck pain, Denies bleeding gums, Denies dental pain, Denies dysphagia, Denies epistaxis, Denies headache, Denies hoarseness, Denies mouth pain, Denies nasal congestion, Denies nasal discharge, Denies neck fullness/pressure, Denies neck lump, Denies nose pain, Denies odynophagia, Denies post-nasal drip, Denies sinus pain, Denies sinus pressure, Denies swelling in mouth, Denies swelling in throat, Denies sore throat, Denies vertigo, Denies voice changes Cardiovascular: Reports as per HPI, Denies chest pain, Denies claudication, Denies decreased exercise tolerance, Denies dyspnea on exertion, Denies edema, Denies high blood pressure, Denies irregular heart beat, Denies leg edema, Denies lightheadedness, Denies orthopnea, Denies palpitations, Denies paroxysmal nocturnal dyspnea, Denies phlebitis, Denies rapid heart beat, Denies shortness of breath, Denies syncope Respiratory: Reports as per HPI, Denies congestion, Denies cough, Denies cough with sputum, Denies dyspnea, Denies excessive sputum, Denies hemoptysis, Denies home oxygen, Denies pain, Denies pain on inspiration, Denies pleurisy, Denies respiratory infections, Denies sleep apnea, Denies snoring, Denies wheezing Gastrointestinal: Reports as per HPI, Denies abdominal pain, Denies belching, Denies bloating, Denies BRBPR, Denies change in bowel habits, Denies coffee ground emesis, Denies constipation, Denies diarrhea, Denies dyspepsia, Denies early satiety, Denies excessive gas, Denies heartburn, Denies hematemesis, Denies hematochezia, Denies indigestion, Denies jaundice, Denies lactose intolerance, Denies loss of appetite, Denies melena, Denies nausea, Denies vomiting Genitourinary: Reports as per HPI, Denies abnormal vaginal bleeding, Denies decreased libido, Denies difficulty conceiving, Denies difficulty voiding, Denies dysmenorrhea, Denies dyspareunia, Denies dysuria, Denies flank pain, Denies genital sores, Denies hematuria, Denies hot flashes, Denies incomplete emptying, Denies kidney stones, Denies menorrhagia, Denies mixed incontinence, Denies nocturia, Denies pelvic pain, Denies post void dribbling, Denies , Denies prolapse symptoms, Denies stress incontinence, Denies urge incontinence , Denies urgency, Denies urinary frequency, Denies vaginal discharge, Denies vaginal dryness, Denies vaginal itching, Denies vaginal odor Menstruation: Reports as per HPI, Reports postmenopausal Musculoskeletal: Reports as per HPI, Reports muscle cramps, Reports muscle weakness, Reports neck pain, Reports shooting leg pain Integumentary: Reports as per HPI Neurological: Reports as per HPI, Reports gait dysfunction, Reports head injury , Reports paresthesias, Reports tremors, Reports weakness, Reports visual changes, Denies aphasia, Denies ataxia, Denies balance difficulties, Denies burning pain, Denies change in mentation, Denies change in smell/taste, Denies change in speech, Denies confusion, Denies convulsions, Denies double vision, Denies headaches, Denies hearing difficulties, Denies lack of coordination, Denies loss of vision, Denies memory loss, Denies migraines, Denies motor disturbance, Denies numbness, Denies paralysis, Denies seizures, Denies sensory deficit, Denies spasticity, Denies syncope, Denies tic, Denies tingling, Denies transient paralysis, Denies vertigo Psychiatric: Reports as per HPI, Denies anhedonia, Denies anxiety, Denies anxiety attacks, Denies change in appetite, Denies change in libido, Denies change in sleep habits, Denies confusion, Denies depression, Denies difficulty concentrating, Denies disorientation, Denies hallucinations, Denies hopelessness , Denies hypersomnia, Denies insomnia, Denies irritability, Denies memory loss, Denies mood swings, Denies paranoia, Denies sadness/tearfulness, Denies sleep disturbances, Denies suicidal ideation Endocrine: Reports as per HPI Hematologic/Lymphatic: Reports as per HPI Allergic/Immunologic: Reports as per HPI Past Medical History Past Medical History: Asthma, Cancer, COPD, Fibromyalgia, GERD/Reflux, Hypertension, Neurologic Disorder, Osteoarthritis (OA), Syncope Additional Past Medical History / Comment(s): Rheumatic fever, heart murmur, osteoporosis, chronic bronchitis, MS,vertigo, lexiscan stress test. pt stated she has had a pne vaccine but not sure of the date underwriter unable to verify at time of admit. History of Any Multi-Drug Resistant Organisms: None Reported Past Surgical History: Bladder Surgery, Heart Catheterization, Hysterectomy Additional Past Surgical History / Comment(s): uterine cancer, radiation, Past Anesthesia/Blood Transfusion Reactions: No Reported Reaction Additional Past Anesthesia/Blood Transfusion Reaction / Comment(s): mild clausterphobia Past Psychological History: Anxiety, Depression Smoking Status: Current every day smoker - Past Family History Mother Family Medical History: CVA/TIA, Myocardial Infarction ([place]) Additional Family Medical History / Comment(s): Mother is alive at age 72 with history of brain aneurysm, 3 strokes and 2 myocardial infarctions. Father Additional Family Medical History / Comment(s): Father at age 72 from a cardiac arrest thought to be due to a myocardial infarction. Sister(s) Additional Family Medical History / Comment(s): Patient has 2 sisters with no major medical problems. Patient does not have any brothers. Patient has 2 children ages 33 and 26 with no major medical problems. Medications and Allergies Home Medications Medication Instructions Recorded Confirmed Type Albuterol Inhaler [Ventolin Hfa 2 puff INHALATION RT-Q6H PRN 02/20/14 01/28/18 History Inhaler] Aspirin 81 mg PO DAILY 02/20/14 01/28/18 History Cholecalciferol [Vitamin D3] 1,000 units PO DAILY 02/20/14 01/28/18 History Fluticasone Propionate [Flonase] 2 spray EA NOSTRIL DAILY PRN 02/20/14 01/28/18 History LORazepam [Ativan] 1 mg PO TID PRN 02/20/14 01/28/18 History Meclizine [Antivert] 25 mg PO TID PRN 02/20/14 01/28/18 History Methocarbamol 500 mg PO Q6H PRN 02/20/14 01/28/18 History Montelukast [Singulair] 10 mg PO HS 02/20/14 01/28/18 History Multivit with Calcium,Iron,Min 1 tab PO DAILY 02/20/14 01/28/18 History [Women's Daily Multivitamin] PARoxetine HCL [Paxil] 40 mg PO DAILY 02/20/14 01/28/18 History Verapamil HCl 120 mg PO DAILY 02/20/14 01/28/18 History Beclomethasone Dipropionate [Qvar 2 puff INHALATION RT-BID 08/19/16 01/28/18 History 80 mcg] Gabapentin [Neurontin] 1,200 mg PO TID 08/19/16 01/28/18 History Ranitidine HCl [Zantac] 150 mg PO BID 08/19/16 01/28/18 History Albuterol Nebulized [Ventolin 2.5 mg INHALATION RT-QID 03/25/17 01/28/18 History Nebulized] Butalb/APAP/Caff 50-325-40Mg 1 tab PO BID PRN 03/25/17 01/28/18 History [Fioricet 50-325-40] Dimethyl Fumarate [Tecfidera] 240 mg PO BID 03/25/17 01/28/18 History predniSONE 10 mg PO DAILY #30 tab 03/30/17 01/28/18 Rx Memantine [Namenda] 10 mg PO AC-SUPPER 10/02/17 01/28/18 History Hydrochlorothiazide [Hydrodiuril] 25 mg PO DAILY tab 10/05/17 01/28/18 Rx Melatonin 6 mg PO HS tablet 10/05/17 01/28/18 Rx Methocarbamol [Robaxin] 500 mg PO Q6H PRN #60 tab 10/05/17 01/28/18 Rx Nicotine 14Mg/24Hr Patch [Habitrol] 1 patch TRANSDERM DAILY #30 patch 10/05/17 01/28/18 Rx Nystatin 100,000 Unit/ml Susp 500,000 unit PO QID #28 cup 10/05/17 01/28/18 Rx [Mycostatin Oral Susp] Cetirizine HCl [Zyrtec] 10 mg PO DAILY 01/28/18 01/28/18 History oxyCODONE-APAP 10-325MG [Percocet 1 each PO TID PRN 01/28/18 01/28/18 History 10-325 mg] Allergies Allergy/AdvReac Type Severity Reaction Status Date / Time penicillin G AdvReac Itching Verified 01/28/18 12:26 Physical Exam Vitals: Vital Signs Temp Pulse Resp BP Pulse Ox 01/28/18 11:57 81 18 114/77 94 L 01/28/18 09:11 99.0 F 83 18 139/75 94 L Intake and Output 01/27/18 01/28/18 01/28/18 22:59 06:59 14:59 Other: Weight 99.79 kg - Constitutional General appearance: cooperative, no acute distress, obese - EENT Eyes: anicteric sclerae, EOMI, PERRLA, dentition normal, normal appearance ENT: hearing grossly normal, NA/AT, normal oropharynx - Neck Neck: normal ROM - Respiratory Respiratory: bilateral: CTA, negative: diminished, dullness, rales, rhonchi - Cardiovascular Rhythm: regular Heart sounds: normal: S1, S2 Abnormal Heart Sounds: no systolic murmur, no diastolic murmur, no rub, no S3 Gallop, no S4 Gallop, no click, no other - Gastrointestinal General gastrointestinal: normal bowel sounds, soft - Integumentary Integumentary: decreased turgor, normal - Neurologic Neurologic: CNII-XII intact - Musculoskeletal Musculoskeletal: generalized weakness, strength equal bilaterally - Psychiatric Psychiatric: A&O x's 3, appropriate affect, intact judgment & insight Results CBC & Chem 7: 01/28/18 09:50 01/28/18 09:50 Labs: Abnormal Lab Results - Last 24 Hours (Table) 01/28/18 01/28/18 01/28/18 Range/Units 09:50 09:50 09:50 WBC 18.2 H (3.8-10.6) k/uL MCHC 30.1 L (31.0-37.0) g/dL RDW 16.2 H (11.5-15.5) % Neutrophils # 14.4 H (1.3-7.7) k/uL INR (<1.2) Chloride 94 L (98-107) mmol/L Carbon Dioxide 37 H (22-30) mmol/L Glucose 142 H (74-99) mg/dL Troponin I 0.149 H* (0.000-0.034) ng/mL 01/28/18 Range/Units 09:50 WBC (3.8-10.6) k/uL MCHC (31.0-37.0) g/dL RDW (11.5-15.5) % Neutrophils # (1.3-7.7) k/uL INR 1.2 H (<1.2) Chloride (98-107) mmol/L Carbon Dioxide (22-30) mmol/L Glucose (74-99) mg/dL Troponin I (0.000-0.034) ng/mL Assessment and Plan Plan: 1. Chest pain with elevated troponin , cant rule out NSTEMI,stress test that was negative for stress-induced ischemia and normal echocardiogram that showed LV function of 65% with mild mitral regurgitation about 10 months ago, and she also had left heart catheterization March 2017 that was negative for coronary artery disease, however she'll be admitted to the hospital for observation and cardiac biomarkers 2 2. Intractable occipital neuralgia with recent botox? injection, ineffective, status post occipital nerve block bilaterally by pain management on Computed tomography scan of the brain was negative we will monitor the patient very closely continue Fioricet obtain neurology consultation . Continue to receive Fioricet, Toradol 30 mg every 6 hours IV for additional pain control. Continue on gabapentin 1200 mg 3 times a day 3. Relapsing remitting multiple sclerosis.. with possibility of exacerbation of neurologic motor weakness secondary to botox, but patient cannot be sure of the last injection given 3 days ago Continue Tecfidera 240 mg orally twice every day. solumedrol 250 q 6h, neruology on consult 4. Hypertension and hypertensive cardiovascular disease. Continue verapamil 120 mg orally once every day. 5. Obesity with possible obstructive sleep apnea and obesity hypoventilation syndrome. 6. Asthma/COPD. Continue Symbicort as well as nebulized treatment 4 times every day. Support with oxygen as needed. 7. Fibromyalgia. Continue gabapentin 1200 mg orally 3 times every day, continue Robaxin 500 mg orally 4 times every day. 8. ALLERGIC rhinitis . Continue Flonase nasal spray 2 sprays in each nostril once every day, continue with singular 10 mg at bedtime . 9. Depressive disorder. Continue paroxetine 40 mg orally once every day. 10. Chronic tobacco use and dependence. Smoking cessation and counseling an increased risk of CAD, CVA, and malignancy. Continue nicotine patch 1 mg once every day. 11. DVT prophylaxis. Heparin 5000 units subcutaneously every 8 hours, bilateral knee-high MAYUR hose. 12. GI prophylaxis. Continue patient on pepcid 20 mg orally bid. 13. morbid obesity, sleep apnea suspected with hypersomnia, no previous sleep study done, need OP sleep test. 14. memory loss, related to ms along with sleep disruption, contult OT 15 recurrent falls, PT/OT , orthostatic vitals. subacute therpaies post discharge suspected 16. restless leg syndrom , severe symtpoms, will start on ropinirole 0.25 mg tid and titrate, check iron studies, b12
[2018-01-28] MEDS: LORazepam 1 MG TAB PO PRN (22:10)
[2018-01-28] MEDS: INSULIN ASPART 100 UNIT/ML 1 ML 10 ML VIAL SQ SCH (22:10)
[2018-01-28 23:27] LABS: Creatine Kinase MB 0.7 ng/mL (0.0-2.4)
[2018-01-28 23:44] LABS: Troponin I 0.055 ng/mL (0.000-0.034)
[2018-01-29 06:30] LABS: Glucose,Whole Blood 171 mg/dL (75-99)
[2018-01-29] MEDS: INSULIN ASPART 100 UNIT/ML 1 ML 10 ML VIAL SQ SCH ×4 (06:38→23:45)
[2018-01-29] MEDS: methylPREDNISolone SOD SUCCI 250 MG in SODIUM CHLORIDE 0.9% 100 ML IVPB SCH ×4 (06:38→23:53)
[2018-01-29] MEDS: ALBUTEROL NEBULIZED 2.5 MG/3 ML INHALATION SCH ×4 (08:17→20:24)
[2018-01-29] MEDS: ASPIRIN 81 MG PO SCH (08:51)
[2018-01-29] MEDS: DIMETHYL FUMARATE 240 MG PO SCH ×2 (08:51→20:46)
[2018-01-29] MEDS: FAMOTIDINE 20 MG TAB PO SCH ×2 (08:52→20:46)
[2018-01-29] MEDS: CHOLECALCIFEROL 1,000 UNIT TAB PO SCH (08:52)
[2018-01-29] MEDS: PARoxetine 20 MG TAB PO SCH (08:52)
[2018-01-29] MEDS: LORATADINE 10 MG TAB PO SCH (08:52)
[2018-01-29] MEDS: HYDROCHLOROTHIAZIDE 25 MG TAB PO SCH (08:52)
[2018-01-29] MEDS: oxyCODONE-APAP 10-325MG 1 EACH TAB PO PRN ×3 (08:57→20:45)
[2018-01-29] MEDS: LORazepam 1 MG TAB PO PRN ×3 (08:57→20:46)
[2018-01-29] MEDS: HEPARIN SOD,PORK IN 0.45% NACL 25,000 UNIT in 0.45% NACL 1 500ML.BAG IV SCH (08:58)
[2018-01-29] MEDS ORDERED: ASPIRIN 325 MG TAB PO SCH (09:00)
[2018-01-29] MEDS: VERAPAMIL SR 120 MG TABLET.ER PO SCH (09:06)
--- NOTE | 2018-01-29 10:54 | ECHOF ---
Referral Reason:abnormal trop MEASUREMENTS -------- HEIGHT: 160.0 cm WEIGHT: 99.8 kg BP: 152/76 RVIDd: 2.3 cm (< 3.3) IVSd: 1.0 cm (0.6 - 1.1) LVIDd: 4.7 cm (3.9 - 5.3) LVPWd: 1.0 cm (0.6 - 1.1) IVSs: 1.4 cm LVIDs: 2.9 cm LVPWs: 1.5 cm LAESV Index (A-L): 21.50 ml/m Ao Diam: 2.3 cm (2.0 - 3.7) AV Cusp: 3.2 cm (1.5 - 2.6) MV E Vargas: 1.32 m/s MV DecT: 263 ms MV A Vargas: 1.28 m/s MV E/A Ratio: 1.03 RAP: 5.00 mmHg RVSP: 17.19 mmHg FINDINGS -------- Sinus rhythm. This was a technically difficult study with suboptimal views. The left ventricular size is normal. Left ventricular wall thickness is normal. Overall left vent ricular systolic function is normal with, an EF between 55 - 60 %. The right ventricle is normal in size and function. Normal LA size by volume 22+/-6 ml/m2. The right atrium is normal in size. 3 ml of Lumason was utilized for enhancement of images. There is mild aortic valve sclerosis. There is no evidence of aortic regurgitation. There is no e vidence of aortic stenosis. Mild mitral annular calcification present. There is trace to mild mitral regurgitation. Trace tricuspid regurgitation present. Right ventricular systolic pressure is normal at < 35 mmHg. There is no evidence of pulmonary hypertension. The pulmonic valve was not well visualized. The aortic root size is normal. IVC Not well visulized. There is no pericardial effusion. CONCLUSIONS -------- 1. Sinus rhythm. 2. This was a technically difficult study with suboptimal views. 3. The left ventricular size is normal. 4. Left ventricular wall thickness is normal. 5. Overall left ventricular systolic function is normal with, an EF between 55 - 60 %. 6. Normal LA size by volume 22+/-6 ml/m2. 7. 3 ml of Lumason was utilized for enhancement of images. 8. There is mild aortic valve sclerosis. 9. Mild mitral annular calcification present. 10. There is trace to mild mitral regurgitation. 11. Trace tricuspid regurgitation present. 12. Right ventricular systolic pressure is normal at < 35 mmHg. 13. There is no evidence of pulmonary hypertension. 14. The pulmonic valve was not well visualized. 15. IVC Not well visulized. 16. There is no pericardial effusion. HEDIS REVIEW NURSE: Leland Simeon RDCS
[2018-01-29] MEDS ORDERED: FLUTICASONE 50MCG/SPRAY NASAL 16GM EA NOSTRIL PRN (11:00)
[2018-01-29] MEDS ORDERED: oxyCODONE-APAP 10-325MG 1 EACH TAB PO PRN (11:00)
[2018-01-29] MEDS ORDERED: METHOCARBAMOL 500 MG TAB PO PRN (11:00)
[2018-01-29 11:18] LABS: Iron Saturation 5.8 (12.00-45.00)
[2018-01-29 11:25] LABS: Glucose,Whole Blood 163 mg/dL (75-99)
--- NOTE | 2018-01-29 12:20 | P.PN ---
Subjective Progress Note Date: 01/29/18 This is a 52-year-old -[place]ian female patient of Dr. Tabares with past medical history of asthma, uterine cancer status post hysterectomy and radiation , fibromyalgia, COPD, gastroesophageal reflux disease, hypertension, osteoarthritis and osteoporosis, MS currently on Tecfedera , after she was on Copaxone for quite sometime, she has been under the care of from neurology Dr. Ramirez, and occipital neuralgi. she came to the emergency department at [facility] because of occipital headache that not relieved with injection to the occiput, ( unknown wether she had botox injection to this area but did not work She had occipital nerve block during her last admission here that helped and she has restlessness of both arms and leg and tremors, increasing weakness, blurred vision and resting chest pain non radiating for the past 2 days. she has bilateral lower leg weakness that she quivers then she falls down., she hit her head hitting the dresser prior to this admission. no loss of conciousness She has no blurred vision or double vision with that she has no dysphasia. while she was in the ER developed to have some chest discomfort and the patient to the subsequently was admitted to the hospital for evaluation, neurology consultation was obtained. Patient underwent left heart catheterization that was done back in March 2017 that was negative for coronary artery disease. in the ER troponins are 0.1 ekg showed no acute st t changes, ct brain failed to reveal any acute traumatic injury no cva changes. patient admitted for elevated troponin, chest pain, recurrent falls, MS exacerbation, occipital neuralgia persistent pain. consult with cardiology and neurology 01/29: Patient has been seen by cardiology and acute coronary syndrome has been ruled out. Echocardiogram has been completed but report is pending. Neurology consult is pending. Patient is on Solu-Medrol 250 mg every 6 hours. I will be to transfer the patient to the [facility] floor. Patient is complaining of headache for which Fioricet and oxycodone resumed. She states the headache is in the back of her head and also forehead. Patient did not sleep well during the night. She does state that she usually sleeps 7-8 hours at home. Objective - Vital Signs Vital signs: Vital Signs Temp 98.3 F 01/29/18 03:57 Pulse 74 09/28/18 08:26 Resp 16 01/29/18 08:00 BP 135/77 01/29/18 08:00 Pulse Ox 98 01/29/18 03:57 Intake & Output 01/28/18 01/29/18 01/29/18 18:59 06:59 18:59 Intake Total 679.5 279.72 Output Total 0 Balance 679.5 279.72 Weight 108.5 kg 106.1 kg Intake: Intake, IV Titration 199.5 279.72 Amount Heparin Sod,Pork in 0.45% 199.5 279.72 NaCl 25,000 unit In 0.45 % NaCl 1 500ml.bag @ 10 UNITS/KG/HR 19.95 mls/hr IV .Q24H ANDREAS Rx#: [id number] Oral 480 Output: Urine 0 Other: Voiding Method Toilet # Voids 1 # Bowel Movements 0 - Exam General appearance: cooperative, no acute distress, obese - EENT Eyes: anicteric sclerae, EOMI, PERRLA, dentition normal, normal appearance ENT: hearing grossly normal, NA/AT, normal oropharynx - Neck Neck: normal ROM - Respiratory Respiratory: bilateral: CTA, negative: diminished, dullness, rales, rhonchi - Cardiovascular Rhythm: regular Heart sounds: normal: S1, S2 Abnormal Heart Sounds: no systolic murmur, no diastolic murmur, no rub, no S3 Gallop, no S4 Gallop, no click, no other - Gastrointestinal General gastrointestinal: normal bowel sounds, soft - Integumentary Integumentary: decreased turgor, normal - Neurologic Neurologic: CNII-XII intact - Musculoskeletal Musculoskeletal: generalized weakness, strength equal bilaterally - Psychiatric Psychiatric: A&O x's 3, appropriate affect, intact judgment & insight - Labs CBC & Chem 7: 01/28/18 09:50 01/28/18 09:50 Labs: Abnormal Lab Results - Last 24 Hours (Table) 01/28/18 01/28/18 01/28/18 Range/Units 09:50 16:42 19:42 INR 1.2 H (<1.2) APTT (22.0-30.0) sec POC Glucose (mg/dL) 160 H (75-99) mg/dL Troponin I 0.076 H* (0.000-0.034) ng/mL 01/28/18 01/28/1801/29/18 Range/Units 20:06 22:06 04:11 INR (<1.2) APTT 30.5 H 53.6 H (22.0-30.0) sec POC Glucose (mg/dL) (75-99) mg/dL Troponin I 0.055 H* (0.000-0.034) ng/mL 01/29/18 Range/Units 06:28 INR (<1.2) APTT (22.0-30.0) sec POC Glucose (mg/dL) 171 H (75-99) mg/dL Troponin I (0.000-0.034) ng/mL Assessment and Plan Plan: 1. Chest pain with elevated troponin. ALLERGY consult appreciated. Acute brain syndrome ruled out. Echocardiogram report is pending. 2. Intractable occipital neuralgia with recent botox? injection, ineffective, status post occipital nerve block bilaterally by pain management on Computed tomography scan of the brain was negative we will monitor the patient very closely continue Fioricet obtain neurology consultation . Continue to receive Fioricet, Toradol 30 mg every 6 hours IV for additional pain control. Continue on gabapentin 1200 mg 3 times a day 3. Relapsing remitting multiple sclerosis with possibility of exacerbation of neurologic motor weakness secondary to botox, but patient cannot be sure of the last injection given 3 days ago Continue Tecfidera 240 mg orally twice every day. solumedrol 250 q 6h, neruology on consult 4. Hypertension and hypertensive cardiovascular disease. Continue verapamil 120 mg orally once every day. 5. Obesity with possible obstructive sleep apnea and obesity hypoventilation syndrome. I commended outpatient sleep study 6. Mild intermittent Asthma/COPD. Continue Symbicort as well as nebulized treatment 4 times every day. Support with oxygen as needed. 7. Fibromyalgia. Continue gabapentin 1200 mg orally 3 times every day, continue Robaxin 500 mg orally 4 times every day. 8. ALLERGIC rhinitis . Continue Flonase nasal spray 2 sprays in each nostril once every day, continue with singular 10 mg at bedtime . 9. Depressive disorder. Continue paroxetine 40 mg orally once every day. 10. Chronic tobacco use and dependence. Smoking cessation and counseling an increased risk of CAD, CVA, and malignancy. Continue nicotine patch 1 mg once every day. 11. DVT prophylaxis. Heparin 5000 units subcutaneously every 8 hours, bilateral knee-high MAYUR hose. 12. GI prophylaxis. Continue patient on pepcid 20 mg orally bid. 13. morbid obesity, sleep apnea suspected with hypersomnia, no previous sleep study done, need OP sleep test. 14. memory loss, related to ms along with sleep disruption, contult OT 15 recurrent falls, PT/OT , orthostatic vitals. subacute therpaies post discharge suspected 16. restless leg syndrom , severe symtpoms, will start on ropinirole 0.25 mg tid and titrate, check iron studies, b12 Discharge plan: Return home Impression and plan of care have been directed as dictated by the signing physician. Elaine Nguyen nurse practitioner acting as scribe for signing physician.
[2018-01-29] MEDS: NICOTINE 14MG/24HR PATCH TRANSDERM SCH (12:41)
[2018-01-29] MEDS: NYSTATIN 100,000 UNIT/ML SUSP 500,000 UNIT/5 ML CUP PO SCH ×3 (12:43→23:53)
[2018-01-29] MEDS: METHOCARBAMOL 500 MG TAB PO PRN (12:44)
[2018-01-29] MEDS: GABAPENTIN 400 MG CAP PO SCH ×3 (14:48→23:53)
[2018-01-29 15:21] LABS: Hemoglobin A1C 6.9 % (4.0-6.0)
[2018-01-29 15:48] LABS: Appearance,Urine Clear (Clear); Bilirubin,Urine Negative (Negative); Blood,Urine Negative (Negative); Color,Urine Yellow; Glucose,Urine (UA) Negative (Negative); Ketones,Urine Negative (Negative); Leukocyte Esterase,Urine Negative (Negative); Nitrite,Urine Negative (Negative); Protein,Urine Trace (Negative); Specific Gravity,Urine 1.018 (1.001-1.035); Urobilinogen,Urine <2.0 mg/dL (<2.0)
[2018-01-29 16:21] LABS: Glucose,Whole Blood 147 mg/dL (75-99)
[2018-01-29] MEDS: MEMANTINE 10 MG TAB PO SCH (17:19)
[2018-01-29] MEDS: FLUTICASONE 110 MCG INHALER INHALATION SCH (20:24)
[2018-01-29] MEDS: MELATONIN 3 MG TABLET PO SCH (20:46)
[2018-01-29] MEDS: MONTELUKAST 10 MG TAB PO SCH (20:47)
[2018-01-29 21:26] LABS: Glucose,Whole Blood 158 mg/dL (75-99)
--- NOTE | 2018-01-29 22:39 | P.CNNES ---
History of Present Illness Consult date: 01/29/18 Requesting physician: Leah Mendoza Reason for Consult: MS exacerbation Chief complaint: MS exacerbation History of Present Illness: Neurology is consulting on 52 year old female for MS exacerbation. Patient is known to our practice and is being actively treated for relapsing / remitting MS. patient also has a history of hysterect fibromyalgia, COPD, GERD, hypertension, osteoarthritis, osteopo. Patient is being treated with Tecfidera. Patient also has a history of occipit and migraine. Patient presented to the ED with occipital neuralgia. Patient wa greater occipital nerve injection ap Injection failed to relieve the patient's migraine/ occipital ner to a tolerable level. Patient states that since the injection did not decrease he increased stress of the status migrainosus may have precipitated her to have an MS exacerbation. Her symptoms of her MS increased si which included increased leg tremors, restlessness of the extremities, increased weakness, blurred vision, MS hug/chest pain for the preceding 2-3 days. Patient believe she may have fell down and hit her head prior to admission but does not believe she lost consciousness. Patient denies any blurry vision, double vision. Patient was AOx3, no acute distress, resting in bed with family in the room on contact. Patient states that her symptoms have been improving since receiving IV Solu-Medrol 250 mg every 6 hours. Her upper and lower extremity symptoms have significantly resolved however, her cognitive and speech symptoms are still significant. This pattern is consistent with her previous MS exacerbation history. She routinely has prolonged resolution of her stuttering , annunciation, mental clarity and sentence structure. Provider has treated the patient with regard to her MS for greater t and is very familiar with her exacerbation history. Review of Systems Systems not noted in HPI are negative Past Medical History Past Medical History: Asthma, Cancer, COPD, Fibromyalgia, GERD/Reflux, Hypertension, Neurologic Disorder, Osteoarthritis (OA), Syncope Additional Past Medical History / Comment(s): Rheumatic fever, heart murmur, osteoporosis, chronic bronchitis, MS,vertigo, lexiscan stress test. 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 History of Any Multi-Drug Resistant Organisms: None Reported Past Surgical History: Bladder Surgery, Heart Catheterization, Hysterectomy Additional Past Surgical History / Comment(s): uterine cancer, radiation, Past Anesthesia/Blood Transfusion Reactions: No Reported Reaction Additional Past Anesthesia/Blood Transfusion Reaction / Comment(s): mild clausterphobia Past Psychological History: Anxiety, Depression Smoking Status: Current every day smoker - Past Family History Mother Family Medical History: CVA/TIA, Myocardial Infarction ([place]) Additional Family Medical History / Comment(s): Mother is alive at age 72 with history of brain aneurysm, 3 strokes and 2 myocardial infarctions. Father Additional Family Medical History / Comment(s): Father at age 72 from a cardiac arrest thought to be due to a myocardial infarction. Sister(s) Additional Family Medical History / Comment(s): Patient has 2 sisters with no major medical problems. Patient does not have any brothers. Patient has 2 children ages 33 and 26 with no major medical problems. Medications and Allergies Home Medications Medication Instructions Recorded Confirmed Type Albuterol Inhaler [Ventolin Hfa 2 puff INHALATION RT-Q6H PRN 02/20/14 01/28/18 History Inhaler] Aspirin 81 mg PO DAILY 02/20/14 01/28/18 History Cholecalciferol [Vitamin D3] 1,000 units PO DAILY 02/20/14 01/28/18 History Fluticasone Propionate [Flonase] 2 spray EA NOSTRIL DAILY PRN 02/20/14 01/28/18 History LORazepam [Ativan] 1 mg PO TID PRN 02/20/14 01/28/18 History Meclizine [Antivert] 25 mg PO TID PRN 02/20/14 01/28/18 History Methocarbamol 500 mg PO Q6H PRN 02/20/14 01/28/18 History Montelukast [Singulair] 10 mg PO HS 02/20/14 01/28/18 History Multivit with Calcium,Iron,Min 1 tab PO DAILY 02/20/14 01/28/18 History [Women's Daily Multivitamin] PARoxetine HCL [Paxil] 40 mg PO DAILY 02/20/14 01/28/18 History Verapamil HCl 120 mg PO DAILY 02/20/14 01/28/18 History Beclomethasone Dipropionate [Qvar 2 puff INHALATION RT-BID 08/19/16 01/28/18 History 80 mcg] Gabapentin [Neurontin] 1,200 mg PO TID 08/19/16 01/28/18 History Ranitidine HCl [Zantac] 150 mg PO BID 08/19/16 01/28/18 History Albuterol Nebulized [Ventolin 2.5 mg INHALATION RT-QID 03/25/17 01/28/18 History Nebulized] Butalb/APAP/Caff 50-325-40Mg 1 tab PO BID PRN 03/25/17 01/28/18 History [Fioricet 50-325-40] Dimethyl Fumarate [Tecfidera] 240 mg PO BID 03/25/17 01/28/18 History predniSONE 10 mg PO DAILY #30 tab 03/30/17 01/28/18 Rx Memantine [Namenda] 10 mg PO AC-SUPPER 10/02/17 01/28/18 History Hydrochlorothiazide [Hydrodiuril] 25 mg PO DAILY tab 10/05/17 01/28/18 Rx Melatonin 6 mg PO HS tablet 10/05/17 01/28/18 Rx Methocarbamol [Robaxin] 500 mg PO Q6H PRN #60 tab 10/05/17 01/28/18 Rx Nicotine 14Mg/24Hr Patch [Habitrol] 1 patch TRANSDERM DAILY #30 patch 10/05/17 01/28/18 Rx Nystatin 100,000 Unit/ml Susp 500,000 unit PO QID #28 cup 10/05/17 01/28/18 Rx [Mycostatin Oral Susp] Cetirizine HCl [Zyrtec] 10 mg PO DAILY 01/28/18 01/28/18 History oxyCODONE-APAP 10-325MG [Percocet 1 each PO TID PRN 01/28/18 01/28/18 History 10-325 mg] Allergies Allergy/AdvReac Type Severity Reaction Status Date / Time penicillin G AdvReac Itching Verified 01/28/18 12:26 Physical Examination - Vital Signs Vital Signs: Vital Signs Temp Pulse Pulse Resp BP BP BP 01/29/18 20:38 75 01/29/18 20:25 74 01/29/18 20:00 97.4 F L 71 18 107/59 01/29/18 16:45 76 01/29/18 16:33 74 01/29/18 16:00 79 16 134/62 01/29/18 13:10 76 01/29/18 13:00 75 01/29/18 12:32 86 117/78 01/29/18 12:31 83 16 134/82 01/29/18 11:20 16 01/29/18 08:26 74 01/29/18 08:17 72 01/29/18 08:00 79 16 135/77 01/29/18 03:57 98.3 F 74 19 116/77 01/28/18 23:30 97.5 F L 80 17 99/68 Pulse Ox 01/29/18 20:38 01/29/18 20:25 01/29/18 20:00 97 01/29/18 16:45 01/29/18 16:33 01/29/18 16:00 99 01/29/18 13:10 01/29/18 13:00 01/29/18 12:32 01/29/18 12:31 97 01/29/18 11:20 01/29/18 08:26 01/29/18 08:17 01/29/18 08:00 01/29/18 03:57 98 01/28/18 23:30 94 L Intake and Output 01/29/18 01/29/18 01/29/18 06:59 14:59 22:59 Intake Total 480 519.72 Output Total 0 Balance 480 519.72 Intake: Intake, IV Titration 279.72 Amount Heparin Sod,Pork in 0.45% 279.72 NaCl 25,000 unit In 0.45 % NaCl 1 500ml.bag @ 10 UNITS/KG/HR 19.95 mls/hr IV .Q24H [facility] Rx#: [id number] Oral 480 240 Output: Urine 0 Other: Voiding Method Toilet Toilet Toilet # Voids 1 # Bowel Movements 2 Weight 106.1 kg General appearance: Alert & oriented x3, no apparent distress. Head: Atraumatic, normocephalic, normal inspection Eyes: Well appearance, PERRLA, EOMI. Absent scleral icterus, conjunctival injection, nystagmus, periorbital swelling. Ear, nose and throat: Normal exam, mucous membranes moist Neck: Normal inspection, absent tenderness, lymphadenopathy. Respiratory: No increased work of breathing Cardiovascular: Regular rate, rhythm GI/abdominal: No guarding Extremities: Full range of motion Neurological: cranial nerves II through XII intact no lateralizing weakness generalized upper and lower extremity we no seizure activity noted on physical exam no pronator drift and no nystagmus. Left lower extremity: 4-/5 Right lower extremity: 4-/5 Left upper extremity: 4-/5 Right upper extremity: 4-/5 Sensation: decreased in all 4 extremities to light touch which is consistent with her physical exam in the outpatient setting Psychological: Mood and Affect appropriate for setting Results - Laboratory Findings CBC and BMP: 01/28/18 09:50 01/28/18 09:50 Abnormal Lab Findings: Abnormal Labs 01/28/18 01/28/18 01/28/18 09:50 09:50 09:50 WBC 18.2 H MCHC 30.1 L RDW 16.2 H Neutrophils # 14.4 H INR APTT Chloride 94 L Carbon Dioxide 37 H Glucose 142 H POC Glucose (mg/dL) Hemoglobin A1c Iron Iron Saturation Troponin I 0.149 H* Urine Protein 01/28/18 01/28/18 01/28/18 09:50 16:42 19:42 WBC MCHC RDW Neutrophils # INR 1.2 H APTT Chloride Carbon Dioxide Glucose POC Glucose (mg/dL) 160 H Hemoglobin A1c Iron Iron Saturation Troponin I 0.076 H* Urine Protein 01/28/18 01/28/18 01/29/18 20:06 22:06 04:11 WBC MCHC RDW Neutrophils # INR APTT 30.5 H Chloride Carbon Dioxide Glucose POC Glucose (mg/dL) Hemoglobin A1c Iron 16 L Iron Saturation 5.80 L Troponin I 0.055 H* Urine Protein 01/29/18 01/29/18 01/29/18 04:11 04:11 06:28 WBC MCHC RDW Neutrophils # INR APTT 53.6 H Chloride Carbon Dioxide Glucose POC Glucose (mg/dL) 171 H Hemoglobin A1c 6.9 H Iron Iron Saturation Troponin I Urine Protein 01/29/18 01/29/18 01/29/18 11:16 15:00 16:19 WBC MCHC RDW Neutrophils # INR APTT Chloride Carbon Dioxide Glucose POC Glucose (mg/dL) 163 H 147 H Hemoglobin A1c Iron Iron Saturation Troponin I Urine Protein Trace H 01/29/18 21:24 WBC MCHC RDW Neutrophils # INR APTT Chloride Carbon Dioxide Glucose POC Glucose (mg/dL) 158 H Hemoglobin A1c Iron Iron Saturation Troponin I Urine Protein Assessment and Plan (1) Multiple sclerosis exacerbation Narrative/Plan: continue IV Solu-Medrol to 50 mg every 6 hours Continue sliding scale insulin per protocol Continue bedside glucose monitoring per protocol MRI brain with and without contrast for further evaluation of patient's MS status and white matter changes to investigate patient's increased symptoms. Current Visit: Yes Status: Acute Code(s): G35 - MULTIPLE SCLEROSIS SNOMED Code(s): 704869169 (2) Fibromyalgia Narrative/Plan: continue gabapentin 1200 mg 3 times a day as prescribed in the outpatient setting resolved with use of IV Solu-Medrol Current Visit: No Status: Acute Code(s): M79.7 - FIBROMYALGIA SNOMED Code( s): 352634160 (3) Intractable headache Narrative/Plan: continue Namenda 10 mg daily at bedtime for head pain continue Fioricet as is the prescribed continue Robaxin as prescribed for intractable headache and occipital neuralgia to address cervicogenic component and cervical paraspinal stiffness Current Visit: No Status: Acute Code(s): R51 - HEADACHE SNOMED Code(s): 93673306 (4) Occipital neuritis Narrative/Plan: see intractable headache. Current Visit: No Status: Acute Code(s): M54.81 - OCCIPITAL NEURALGIA SNOMED Code(s): 50437137 Plan: continue with plan of care as noted above Neurology will continue to follow and provide updates as needed or warranted. Patient's symptoms are continuing to resolve. Patient is approximately 60-70% returned to baseline. Largest remaining symptom group is the cognitive, speech related symptoms. This is consistent with patient's previous MS exacerbations. Maintain IV Solu-Medrol as prescribed until further notice. Anticipate another 24 hours of IV Solu-Medrol and reassess in 24 hours. I have discussed the plan of care with the physician prior to implementation and he agrees with the plan as implemented.
[2018-01-30] MEDS: METHOCARBAMOL 500 MG TAB PO PRN (05:28)
[2018-01-30] MEDS: methylPREDNISolone SOD SUCCI 250 MG in SODIUM CHLORIDE 0.9% 100 ML IVPB SCH ×3 (05:57→18:42)
[2018-01-30 06:04] LABS: Glucose,Whole Blood 198 mg/dL (75-99)
[2018-01-30] MEDS: INSULIN ASPART 100 UNIT/ML 1 ML 10 ML VIAL SQ SCH ×6 (06:08→20:28)
[2018-01-30] MEDS: BUTALB/APAP/CAFF 50-325-40MG TAB PO PRN ×4 (06:09→20:28)
[2018-01-30] MEDS: FLUTICASONE 110 MCG INHALER INHALATION SCH ×2 (08:18→20:53)
[2018-01-30] MEDS: ALBUTEROL NEBULIZED 2.5 MG/3 ML INHALATION SCH ×4 (08:19→20:52)
[2018-01-30] MEDS ORDERED: IRON DEXTRAN 100 MG/2 ML VIAL IV ONE (09:30)
[2018-01-30] MEDS: DIMETHYL FUMARATE 240 MG PO SCH ×2 (09:42→20:29)
[2018-01-30] MEDS: ASPIRIN 81 MG PO SCH (09:42)
[2018-01-30] MEDS: FAMOTIDINE 20 MG TAB PO SCH ×2 (09:43→20:27)
[2018-01-30] MEDS: oxyCODONE-APAP 10-325MG 1 EACH TAB PO PRN ×2 (09:45→18:42)
[2018-01-30] MEDS: VERAPAMIL SR 120 MG TABLET.ER PO SCH (09:46)
[2018-01-30] MEDS: PARoxetine 20 MG TAB PO SCH (09:46)
[2018-01-30] MEDS: LORATADINE 10 MG TAB PO SCH (09:46)
[2018-01-30] MEDS: NYSTATIN 100,000 UNIT/ML SUSP 500,000 UNIT/5 ML CUP PO SCH ×4 (09:47→20:29)
[2018-01-30] MEDS: HYDROCHLOROTHIAZIDE 25 MG TAB PO SCH (09:47)
[2018-01-30] MEDS: NICOTINE 14MG/24HR PATCH TRANSDERM SCH (09:47)
[2018-01-30] MEDS: LORazepam 1 MG TAB PO PRN ×2 (09:53→18:42)
[2018-01-30] MEDS: GABAPENTIN 400 MG CAP PO SCH ×3 (09:53→20:27)
--- NOTE | 2018-01-30 10:39 | P.PN ---
Subjective Progress Note Date: 01/30/18 This is a 52-year-old -[place] female patient of Dr. Tabares with past medical history of asthma, uterine cancer status post hysterectomy and radiation , fibromyalgia, COPD, gastroesophageal reflux disease, hypertension, osteoarthritis and osteoporosis, MS currently on Tecfedera , after she was on Copaxone for quite sometime, she has been under the care of from neurology Dr. Ramirez, and occipital neuralgi. she came to the emergency department at [facility] because of occipital headache that not relieved with injection to the occiput, ( unknown wether she had botox injection to this area but did not work She had occipital nerve block during her last admission here that helped and she has restlessness of both arms and leg and tremors, increasing weakness, blurred vision and resting chest pain non radiating for the past 2 days. she has bilateral lower leg weakness that she quivers then she falls down., she hit her head hitting the dresser prior to this admission. no loss of conciousness She has no blurred vision or double vision with that she has no dysphasia. while she was in the ER developed to have some chest discomfort and the patient to the subsequently was admitted to the hospital for evaluation, neurology consultation was obtained. Patient underwent left heart catheterization that was done back in March 2017 that was negative for coronary artery disease. in the ER troponins are 0.1 ekg showed no acute st t changes, ct brain failed to reveal any acute traumatic injury no cva changes. patient admitted for elevated troponin, chest pain, recurrent falls, MS exacerbation, occipital neuralgia persistent pain. consult with cardiology and neurology 01/29: Patient has been seen by cardiology and acute coronary syndrome has been ruled out. Echocardiogram has been completed but report is pending. Neurology consult is pending. Patient is on Solu-Medrol 250 mg every 6 hours. I will be to transfer the patient to the [facility] floor. Patient is complaining of headache for which Fioricet and oxycodone resumed. She states the headache is in the back of her head and also forehead. Patient did not sleep well during the night. She does state that she usually sleeps 7-8 hours at home. 01/30: Neurology consult completed. Patient is on Solu-Medrol 250 mg every 6 hours. Patient was seen by cardiology and was cleared from their standpoint. Patient continues to complain of swelling in the throat, wheezes, and productive cough with yellow sputum. She states that her headache, jittery feeling and her memory has improved. She still has complaints of weakness and slurred speech. Objective - Vital Signs Vital signs: Vital Signs Temp 97.6 F 01/30/18 04:00 Pulse 76 01/30/18 08:27 Resp 18 01/30/18 04:00 BP 144/78 01/30/18 04:00 Pulse Ox 98 01/30/18 04:00 Intake & Output 01/29/18 01/30/18 01/30/18 18:59 06:59 18:59 Intake Total 519.72 100 Output Total 0 1600 Balance 519.72 -1500 Weight 108.2 kg Intake: Intake, IV Titration 279.72 100 Amount Heparin Sod,Pork in 0.45% 279.72 NaCl 25,000 unit In 0.45 % NaCl 1 500ml.bag @ 10 UNITS/KG/HR 19.95 mls/hr IV .Q24H [facility] Rx#: [id number] methylPREDNISolone SOD 100 SUCCI 250 mg In Sodium Chloride 0.9% 100 ml @ 100 mls/hr IVPB Q6HR [facility] Rx#:[id number] Oral 240 Output: Urine 0 1600 Other: Voiding Method Toilet Toilet # Voids 1 300 # Bowel Movements 2 - Constitutional General appearance: Present: cooperative, no acute distress, obese - EENT Eyes: Present: anicteric sclerae, EOMI, PERRLA, dentition normal, normal appearance ENT: Present: hearing grossly normal, NA/AT, normal oropharynx - Neck Neck: Present: normal ROM - Respiratory Respiratory: bilateral: wheezing, negative: diminished, dullness, rales, rhonchi - Cardiovascular Rhythm: regular Heart sounds: normal: S1, S2 Abnormal Heart Sounds: Absent: systolic murmur, diastolic murmur, rub, S3 Gallop , S4 Gallop, click - Gastrointestinal General gastrointestinal: Present: normal bowel sounds - Integumentary Integumentary: Present: decreased turgor, normal - Neurologic Neurologic: Present: CNII-XII intact - Musculoskeletal Musculoskeletal: Present: generalized weakness, strength equal bilaterally - Psychiatric Psychiatric: Present: A&O x's 3, appropriate affect, intact judgment & insight - Labs CBC & Chem 7: 01/28/18 09:50 01/28/18 09:50 Labs: Abnormal Lab Results - Last 24 Hours (Table) 01/29/18 01/29/18 01/29/18 Range/Units 04:11 04:11 11:16 POC Glucose (mg/dL) 163 H (75-99) mg/dL Hemoglobin A1c 6.9 H (4.0-6.0) % Iron 16 L (50-170) ug/dL Iron Saturation 5.80 L (12.00-45.00) Urine Protein (Negative) 01/29/18 01/29/18 01/29/18 Range/Units 15:00 16:19 21:24 POC Glucose (mg/dL) 147 H 158 H (75-99) mg/dL Hemoglobin A1c (4.0-6.0) % Iron (50-170) ug/dL Iron Saturation (12.00-45.00) Urine Protein Trace H (Negative) 01/30/18 Range/Units 06:02 POC Glucose (mg/dL) 198 H (75-99) mg/dL Hemoglobin A1c (4.0-6.0) % Iron (50-170) ug/dL Iron Saturation (12.00-45.00) Urine Protein (Negative) Assessment and Plan Plan: 1. Chest pain with elevated troponin. ALLERGY consult appreciated. Acute brain syndrome ruled out. Echocardiogram report is pending. 2. Intractable occipital neuralgia with recent botox? injection, ineffective, status post occipital nerve block bilaterally by pain management on Computed tomography scan of the brain was negative we will monitor the patient very closely continue Fioricet obtain neurology consultation . Continue to receive Fioricet, Toradol 30 mg every 6 hours IV for additional pain control. Continue on gabapentin 1200 mg 3 times a day 3. Relapsing remitting multiple sclerosis with possibility of exacerbation of neurologic motor weakness secondary to botox, but patient cannot be sure of the last injection given 3 days ago Continue Tecfidera 240 mg orally twice every day. solumedrol 250 q 6h, neruology on consult 4. Hypertension and hypertensive cardiovascular disease. Continue verapamil 120 mg orally once every day. 5. Obesity with possible obstructive sleep apnea and obesity hypoventilation syndrome. I commended outpatient sleep study 6. Mild intermittent Asthma/COPD. Continue Symbicort as well as nebulized treatment 4 times every day. Support with oxygen as needed. 7. Fibromyalgia. Continue gabapentin 1200 mg orally 3 times every day, continue Robaxin 500 mg orally 4 times every day. 8. ALLERGIC rhinitis . Continue Flonase nasal spray 2 sprays in each nostril once every day, continue with singular 10 mg at bedtime . 9. Depressive disorder. Continue paroxetine 40 mg orally once every day. 10. Chronic tobacco use and dependence. Smoking cessation and counseling an increased risk of CAD, CVA, and malignancy. Continue nicotine patch 1 mg once every day. 11. DVT prophylaxis. Heparin 5000 units subcutaneously every 8 hours, bilateral knee-high MAYUR hose. 12. GI prophylaxis. Continue patient on pepcid 20 mg orally bid. 13. morbid obesity, sleep apnea suspected with hypersomnia, no previous sleep study done, need OP sleep test. 14. memory loss, related to ms along with sleep disruption, contult OT 15 recurrent falls, PT/OT , orthostatic vitals. subacute therpaies post discharge suspected 16. restless leg syndrome , severe symtpoms, will start on ropinirole 0.25 mg tid and titrate, check iron studies, b12 17. Bronchitis, cough and wheezing noted, will start azithromycin 500 mg IV daily. 18. Anemia, low iron, will start iron dextran 50 mg IV 1 dose Discharge plan: Return home Impression and plan of care have been directed as dictated by the signing physician. Izabella Tavares nurse practitioner acting as scribe for signing physician. Time with Patient: Less than 30 (Impression and plan of care have been directed as dictated by the signing physician. Izabella Tavares nurse practitioner acting as scribe for signing physician.)
--- NOTE | 2018-01-30 11:53 | MR ---
EXAMINATION TYPE: MR brain wo/w con DATE OF EXAM: 01/30/2018 COMPARISON: Previous study dated 09/27/2016. HISTORY: MS Follow up, Gadavist 10 ml TECHNIQUE: Multiplanar, multisequence images of the brain and brainstem is performed without and with IV contras t, utilizing 10 mL intravenous Gadavist gadolinium contrast is administered intravenously. Demyelina ting disease protocol with additional Sagittal Flair sequence performed. FINDINGS: T2 Lesions Present : Yes Approximate Number of Lesions: 17 Locations Identified : Periventricular Size of Reference Lesion(s): 1. 0.3 cm x 0.3 cm x 0.3 cm on axial image 20 and sagittal image 23 2 0.3 cm x 0.4 cm x 0.4 cm on axial image 21 and sagittal image 10 Enhancing Lesion(s) Present: No T1 Hypointense Lesion(s) Present: No Change from Prior: Slightly improved. Midline structures are unremarkable. There is a normal craniocervical junction. Echoplanar diffusion imaging is normal. There are normal vascular flow voids. The orbits are unremarkable. There is no evidence of a CP angle mass lesion. There is no mass effect, midline shift or intracranial blood. Following intravenous administration of gadolinium, I do not see evidence of abnormal enhancement. IMPRESSION: 1. NO ACUTE INTRACRANIAL ABNORMALITY. 2. STABLE OR SLIGHTLY IMPROVED DEMYELINATING PLAQUES.
[2018-01-30] MEDS ORDERED: SODIUM FERRIC GLUCONAT-SUCROSE 125 MG in SODIUM CHLORIDE 0.9% 100 ML IVPB ONE (12:00)
[2018-01-30] MEDS: AZITHROMYCIN 500 MG in SODIUM CHLORIDE 0.9% 250 ML IVPB SCH (12:04)
--- NOTE | 2018-01-30 12:04 | XR ---
EXAMINATION TYPE: XR chest 2V DATE OF EXAM: 01/30/2018 HISTORY: cough. REFERENCE: Previous study dated 01/28/2018. FINDINGS: The heart is mildly enlarged. There is some platelike atelectasis at the right lung base. T he lungs are otherwise clear. There is mild vascular congestion and subtle interstitial change.. IMPRESSION: 1. FINDINGS SUGGESTIVE OF MILD HEART FAILURE. 2. PLATELIKE ATELECTASIS, RIGHT LUNG BASE.
[2018-01-30 12:19] LABS: Glucose,Whole Blood 151 mg/dL (75-99)
[2018-01-30 12:20] VITALS: RESP 18
[2018-01-30] MEDS: CHOLECALCIFEROL 1,000 UNIT TAB PO SCH (13:34)
[2018-01-30] MEDS: MULTIVITAMINS, THERA 1 EACH TAB PO SCH (13:34)
[2018-01-30 13:51] LABS: Anion Gap 8 mmol/L; Blood Urea Nitrogen 13 mg/dL (7-17); Calcium 9.3 mg/dL (8.4-10.2); Carbon Dioxide 32 mmol/L (22-30); Chloride 100 mmol/L (98-107); Glucose 136 mg/dL (74-99); Potassium 4.3 mmol/L (3.5-5.1); Sodium 140 mmol/L (137-145)
[2018-01-30 13:58] LABS: HCT 44.6 % (34.0-46.0); Hypochromasia Marked; MCH 28.2 pg (25.0-35.0); MCHC 29.1 g/dL (31.0-37.0); Macrocytosis Slight; Mean Platelet Volume 7.6; Platelet Count 251 k/uL (150-450); RBC 4.59 m/uL (3.80-5.40); WBC 15.5 k/uL (3.8-10.6)
[2018-01-30 13:59] LABS: Anisocytosis Slight; Basophils % (A) 0 %; Eosinophils # (A) 0.1 k/uL (0-0.7); Eosinophils % (A) 1 %; Lymphocytes % (A) 6 %; Monocytes # (A) 0.5 k/uL (0-1.0); Monocytes % (A) 4 %; Neutrophils # (A) 13.8 k/uL (1.3-7.7); Neutrophils % (A) 89 %
--- NOTE | 2018-01-30 15:42 | P.PN ---
Subjective Progress Note Date: 01/30/18 Principal diagnosis: MS Exacerbation 01/30/18: Patient off the floor during rounding Objective - Vital Signs Vital signs: Vital Signs Temp 97.2 F L 01/30/18 12:00 Pulse 74 01/30/18 12:00 Resp 18 01/30/18 12:00 BP 143/77 01/30/18 12:00 Pulse Ox 98 01/30/18 08:00 Intake & Output 01/29/18 01/30/18 01/30/18 18:59 06:59 18:59 Intake Total 519.72 100 Output Total 0 1600 Balance 519.72 -1500 Weight 108.2 kg Intake: Intake, IV Titration 279.72 100 Amount Heparin Sod,Pork in 0.45% 279.72 NaCl 25,000 unit In 0.45 % NaCl 1 500ml.bag @ 10 UNITS/KG/HR 19.95 mls/hr IV .Q24H [facility] Rx#: [id number] methylPREDNISolone SOD 100 SUCCI 250 mg In Sodium Chloride 0.9% 100 ml @ 100 mls/hr IVPB Q6HR [facility] Rx#:[id number] Oral 240 Output: Urine 0 1600 Other: Voiding Method Toilet Toilet Toilet # Voids 1 300 # Bowel Movements 2 - Labs CBC & Chem 7: 01/30/18 13:05 01/30/18 13:05 Labs: Abnormal Lab Results - Last 24 Hours (Table) 01/29/18 01/29/18 01/29/18 Range/Units 15:00 16:19 21:24 WBC (3.8-10.6) k/uL MCHC (31.0-37.0) g/dL RDW (11.5-15.5) % Neutrophils # (1.3-7.7) k/uL Carbon Dioxide (22-30) mmol/L Creatinine (0.52-1.04) mg/dL Glucose (74-99) mg/dL POC Glucose (mg/dL) 147 H 158 H (75-99) mg/dL Urine Protein Trace H (Negative) 01/30/18 01/30/18 01/30/18 Range/Units 06:02 12:01 13:05 WBC 15.5 H (3.8-10.6) k/uL MCHC 29.1 L (31.0-37.0) g/dL RDW 17.0 H (11.5-15.5) % Neutrophils # 13.8 H (1.3-7.7) k/uL Carbon Dioxide (22-30) mmol/L Creatinine (0.52-1.04) mg/dL Glucose (74-99) mg/dL POC Glucose (mg/dL) 198 H 151 H (75-99) mg/dL Urine Protein (Negative) 01/30/18 Range/Units 13:05 WBC (3.8-10.6) k/uL MCHC (31.0-37.0) g/dL RDW (11.5-15.5) % Neutrophils # (1.3-7.7) k/uL Carbon Dioxide 32 H (22-30) mmol/L Creatinine 0.44 L (0.52-1.04) mg/dL Glucose 136 H (74-99) mg/dL POC Glucose (mg/dL) (75-99) mg/dL Urine Protein (Negative) Assessment and Plan (1) Multiple sclerosis exacerbation Current Visit: Yes Status: Acute Code(s): G35 - MULTIPLE SCLEROSIS SNOMED Code(s): 213228188 (2) Fibromyalgia Current Visit: No Status: Acute Code(s): M79.7 - FIBROMYALGIA SNOMED Code( s): 330779779 (3) Intractable headache Current Visit: No Status: Acute Code(s): R51 - HEADACHE SNOMED Code(s): 32460711 (4) Occipital neuritis Current Visit: No Status: Acute Code(s): M54.81 - OCCIPITAL NEURALGIA SNOMED Code(s): 77791959
[2018-01-30 17:20] LABS: Glucose,Whole Blood 136 mg/dL (75-99)
[2018-01-30] MEDS: MEMANTINE 10 MG TAB PO SCH (17:34)
[2018-01-30] MEDS: MONTELUKAST 10 MG TAB PO SCH (20:27)
[2018-01-30] MEDS: MELATONIN 3 MG TABLET PO SCH (20:27)
[2018-01-30 20:31] LABS: Glucose,Whole Blood 162 mg/dL (75-99)
[2018-01-31] MEDS: methylPREDNISolone SOD SUCCI 250 MG in SODIUM CHLORIDE 0.9% 100 ML IVPB SCH ×3 (01:32→12:33)
[2018-01-31] MEDS: oxyCODONE-APAP 10-325MG 1 EACH TAB PO PRN ×2 (03:52→12:33)
[2018-01-31] MEDS: LORazepam 1 MG TAB PO PRN ×2 (04:30→12:33)
[2018-01-31 06:22] VITALS: BP 152/84; TEMP 98.4
[2018-01-31 07:02] LABS: Glucose,Whole Blood 142 mg/dL (75-99)
[2018-01-31] MEDS: FLUTICASONE 110 MCG INHALER INHALATION SCH (08:01)
[2018-01-31] MEDS: ALBUTEROL NEBULIZED 2.5 MG/3 ML INHALATION SCH ×3 (08:01→15:57)
[2018-01-31] MEDS: NICOTINE 14MG/24HR PATCH TRANSDERM SCH (08:05)
[2018-01-31] MEDS: HYDROCHLOROTHIAZIDE 25 MG TAB PO SCH (08:05)
[2018-01-31] MEDS: FAMOTIDINE 20 MG TAB PO SCH (08:05)
[2018-01-31] MEDS: NYSTATIN 100,000 UNIT/ML SUSP 500,000 UNIT/5 ML CUP PO SCH ×2 (08:05→12:36)
[2018-01-31] MEDS: CHOLECALCIFEROL 1,000 UNIT TAB PO SCH (08:05)
[2018-01-31] MEDS: VERAPAMIL SR 120 MG TABLET.ER PO SCH (08:05)
[2018-01-31] MEDS: LORATADINE 10 MG TAB PO SCH (08:05)
[2018-01-31] MEDS: PARoxetine 20 MG TAB PO SCH (08:05)
[2018-01-31] MEDS: MULTIVITAMINS, THERA 1 EACH TAB PO SCH (08:05)
[2018-01-31] MEDS: ASPIRIN 81 MG PO SCH (08:09)
[2018-01-31] MEDS: INSULIN ASPART 100 UNIT/ML 1 ML 10 ML VIAL SQ SCH ×4 (08:09→12:34)
[2018-01-31] MEDS: DIMETHYL FUMARATE 240 MG PO SCH (09:48)
[2018-01-31] MEDS: BUTALB/APAP/CAFF 50-325-40MG TAB PO PRN (09:49)
[2018-01-31] MEDS: AZITHROMYCIN 500 MG in SODIUM CHLORIDE 0.9% 250 ML IVPB SCH (09:49)
[2018-01-31] MEDS: GABAPENTIN 400 MG CAP PO SCH (09:50)
[2018-01-31] MEDS: METHOCARBAMOL 500 MG TAB PO PRN (09:50)
--- NOTE | 2018-01-31 10:01 | P.PN ---
Subjective Progress Note Date: 01/31/18 Principal diagnosis: MS Exacerbation 01/30/18: Patient off the floor during rounding 01/31/18: Neurology is following a 52-year-old female for exacerbation of multiple sclerosis. Patient is known to our practice and provider for multiple sclerosis treatment on a regular basis. Provider has been trying to switch patient's multiple sclerosis medication but has been blocked by patient's insurance provider for the last several months. Patient is up and having multiple sclerosis exacerbation while waiting to change her medication intermittently. Most recent occurrence required hospitalization at this time. While inpatient, patient given IV Solu-Medrol and her exacerbation has been relenting. On rounding today, patient is alert and oriented 3. Patient states she is approximately greater than 90% back to baseline. Provider notes that the patient's exacerbations typically have the greatest difficulty resolving the patient's stuttering and cognitive difficulties. On interaction today, patient' s cognitive clarity as well as her stuttering have resolved to approximate 95%. Patient can continue with an additional 250 mg of IV Solu-Medrol and then can be discharged home with Medrol Dosepak as her steroid taper. This is consistent with patient's normal steroid regimen for MS exacerbation. Patient can be seen in the office in 14 days. Objective - Vital Signs Vital signs: Vital Signs Temp 98.4 F 01/31/18 06:22 Pulse 78 01/31/18 08:17 Resp 18 01/31/18 06:22 BP 152/84 01/31/18 06:22 Pulse Ox 95 01/31/18 06:22 Intake & Output 01/30/18 01/31/18 01/31/18 18:59 06:59 18:59 Intake Total 420 120 Output Total 1700 Balance -1280 120 Intake: Oral 420 120 Output: Urine 1700 Other: Voiding Method Toilet Bedside Commode # Voids 1 - Exam General appearance: Alert & oriented x3, no apparent distress. Head: Atraumatic, normocephalic, normal inspection Eyes: Well appearance, PERRLA, EOMI. Absent scleral icterus, conjunctival injection, nystagmus, periorbital swelling. Ear, nose and throat: Normal exam, mucous membranes moist Neck: Normal inspection, absent tenderness, lymphadenopathy. Respiratory: No increased work of breathing Cardiovascular: Regular rate, rhythm GI/abdominal: No guarding Extremities: Full range of motion, normal capillary refill, no tenderness, pedal edema joint swelling, calf tenderness. Neurological: cranial nerves II through XII intact no lateralizing weakness no seizure activity noted on physical exam no pronator drift and no nystagmus. Left lower extremity: 5/5 Right lower extremity: 5/5 Left upper extremity: 5/5 Right upper extremity:5 /5 Sensation: Left lower extremity: normal Right lower extremity: normal Left upper extremity: normal Right upper extremity:normal Psychological: Mood and Affect appropriate for setting - Labs CBC & Chem 7: 01/30/18 13:05 01/30/18 13:05 Labs: Abnormal Lab Results - Last 24 Hours (Table) 01/30/18 01/30/18 01/30/18 Range/Units 12:01 13:05 13:05 WBC 15.5 H (3.8-10.6) k/uL MCHC 29.1 L (31.0-37.0) g/dL RDW 17.0 H (11.5-15.5) % Neutrophils # 13.8 H (1.3-7.7) k/uL Carbon Dioxide 32 H (22-30) mmol/L Creatinine 0.44 L (0.52-1.04) mg/dL Glucose 136 H (74-99) mg/dL POC Glucose (mg/dL) 151 H (75-99) mg/dL 01/30/18 01/30/18 01/31/18 Range/Units 17:17 20:21 06:59 WBC (3.8-10.6) k/uL MCHC (31.0-37.0) g/dL RDW (11.5-15.5) % Neutrophils # (1.3-7.7) k/uL Carbon Dioxide (22-30) mmol/L Creatinine (0.52-1.04) mg/dL Glucose (74-99) mg/dL POC Glucose (mg/dL) 136 H 162 H 142 H (75-99) mg/dL Assessment and Plan (1) Multiple sclerosis exacerbation Narrative/Plan: continue IV Solu-Medrol 250 mg 1 dose, then patient can be cleared for discharge with Medrol Dosepak as outpatient taper Continue sliding scale insulin per protocol Continue bedside glucose monitoring per protocol Current Visit: Yes Status: Acute Code(s): G35 - MULTIPLE SCLEROSIS SNOMED Code(s): 072533967 (2) Fibromyalgia Narrative/Plan: resolved Current Visit: No Status: Acute Code(s): M79.7 - FIBROMYALGIA SNOMED Code( s): 356489727 (3) Intractable headache Narrative/Plan: continue all medications as prescribed outpatient ACute exacerbation resolved Current Visit: No Status: Acute Code(s): R51 - HEADACHE SNOMED Code(s): 27099910 (4) Occipital neuritis Narrative/Plan: see intractable headache. Current Visit: No Status: Acute Code(s): M54.81 - OCCIPITAL NEURALGIA SNOMED Code(s): 84896214 Plan: continue with plan of care as noted above patient can be cleared for discharge from a neurological standpoint after 1 additional dose of IV Solu-Medrol 250 mg this morning. And patient can be discharged home with Medrol Dosepak as outpatient oral steroid taper. Patient to be seen in our office within 14 days. Discussed plan of care with patient. Patient is agreeable with plan of care. I have discussed the plan of care with the physician prior to implementation and he agrees with the plan as implemented.
[2018-01-31 12:04] VITALS: PULSE 74
[2018-01-31 12:15] LABS: Glucose,Whole Blood 137 mg/dL (75-99)
--- NOTE | 2018-01-31 12:34 | P.DS ---
Providers Date of admission: 01/28/18 12:26 Attending physician: Deneen Thomason Consults: 01/28/18 11:37 Consult Physician Stat Consulting Provider: Carolynn Ramirez Consult Reason/Comments: MS exacerbation Do you want consulting provider notified?: Yes Consult Physician Urgent Consulting Provider: Anton Rajan Consult Reason/Comments: NSTEMI Do you want consulting provider notified?: Yes Primary care physician: Kilo Tabares [facility] Course: This is a 52-year-old -Thai female patient of Dr. Tabares with past medical history of asthma, uterine cancer status post hysterectomy and radiation , fibromyalgia, COPD, gastroesophageal reflux disease, hypertension, osteoarthritis and osteoporosis, MS currently on Tecfedera , after she was on Copaxone for quite sometime, she has been under the care of from neurology Dr. Ramirez, and occipital neuralgi. she came to the emergency department at [facility] because of occipital headache that not relieved with injection to the occiput, ( unknown wether she had botox injection to this area but did not work She had occipital nerve block during her last admission here that helped and she has restlessness of both arms and leg and tremors, increasing weakness, blurred vision and resting chest pain non radiating for the past 2 days. she has bilateral lower leg weakness that she quivers then she falls down., she hit her head hitting the dresser prior to this admission. no loss of conciousness She has no blurred vision or double vision with that she has no dysphasia. while she was in the ER developed to have some chest discomfort and the patient to the subsequently was admitted to the hospital for evaluation, neurology consultation was obtained. Patient underwent left heart catheterization that was done back in March 2017 that was negative for coronary artery disease. in the ER troponins are 0.1 ekg showed no acute st t changes, ct brain failed to reveal any acute traumatic injury no cva changes. patient admitted for elevated troponin, chest pain, recurrent falls, MS exacerbation, occipital neuralgia persistent pain. consult with cardiology and neurology 01/29: Patient has been seen by cardiology and acute coronary syndrome has been ruled out. Echocardiogram has been completed but report is pending. Neurology consult is pending. Patient is on Solu-Medrol 250 mg every 6 hours. I will be to transfer the patient to the [facility] floor. Patient is complaining of headache for which Fioricet and oxycodone resumed. She states the headache is in the back of her head and also forehead. Patient did not sleep well during the night. She does state that she usually sleeps 7-8 hours at home. 01/30: Neurology consult completed. Patient is on Solu-Medrol 250 mg every 6 hours. Patient was seen by cardiology and was cleared from their standpoint. Patient continues to complain of swelling in the throat, wheezes, and productive cough with yellow sputum, we'll obtain a chest x-ray. She states that her headache, jittery feeling and her memory has improved. She still has complaints of weakness and slurred speech. Blood sugar slightly elevated or likely related to steroid use will adjust insulin today. Labs showed anemia with low iron, will start iron dextran, and repeat CBC. 01/31: Patient was seen by neurology today, ordered Solu-Medrol 250 mg once and able to be discharged home on a Medrol Dosepak to follow up in 14 days from their standpoint. No complaints of headache. Patient states memory continues to improve and no longer feeling jittery. Patient continues to complain of discomfort in the throat and a productive cough. Chest x-ray findings suggestive of mild heart failure, platelike atelectasis right lung base. Will continue azithromycin outpatient. Patient complains of dysuria, urinalysis negative, encouraged to drink more fluids. History of restless leg syndrome patient had positive results with the Requip and would like to continue an outpatient basis. Discharge diagnosis: 1. Chest pain with elevated troponin. 2. Intractable occipital neuralgia with recent botox? injection, ineffective, status post occipital nerve block bilaterally by pain management on 3. Relapsing remitting multiple sclerosis with possibility of exacerbation of neurologic motor weakness secondary to botox, 4. Hypertension and hypertensive cardiovascular disease. 5. Obesity with possible obstructive sleep apnea and obesity hypoventilation syndrome. 6. Mild intermittent Asthma/COPD. 7. Fibromyalgia. 8. ALLERGIC rhinitis . 9. Depressive disorder. 10. Chronic tobacco use and dependence. 11. Bronchitis 12. Anemia 13. Restless leg syndrome 14. morbid obesity, sleep apnea suspected with hypersomnia, 15. memory loss, related to ms along with sleep disruption, 16. recurrent falls, Disposition: Home with self-care CC: Dr. Tabares Impression and plan of care have been directed as dictated by the signing physician. Izabella Tavares nurse practitioner acting as scribe for signing physician. Patient Condition at Discharge: Stable Plan - Discharge Summary Discharge Rx Participant: No New Discharge Prescriptions: New rOPINIRole HCL [Requip] 0.25 mg PO TID #90 tab Azithromycin 250 mg PO DAILY #4 tablet methylPREDNISolone Dose Pack [Medrol Dose Pack] 4 mg PO DIRECTED #21 package rOPINIRole HCL [Requip] 0.25 mg PO TID #90 tablet Continue Fluticasone Propionate [Flonase] 2 spray EA NOSTRIL DAILY PRN PRN Reason: Allergy Symptoms Montelukast [Singulair] 10 mg PO HS Meclizine [Antivert] 25 mg PO TID PRN PRN Reason: Vertigo Albuterol Inhaler [Ventolin Hfa Inhaler] 2 puff INHALATION RT-Q6H PRN PRN Reason: Wheezing PARoxetine HCL [Paxil] 40 mg PO DAILY LORazepam [Ativan] 1 mg PO TID PRN PRN Reason: Anxiety Aspirin 81 mg PO DAILY Verapamil HCl 120 mg PO DAILY Multivit with Calcium,Iron,Min [Women's Daily Multivitamin] 1 tab PO DAILY Methocarbamol 500 mg PO Q6H PRN PRN Reason: Pain Cholecalciferol [Vitamin D3] 1,000 units PO DAILY Ranitidine HCl [Zantac] 150 mg PO BID Gabapentin [Neurontin] 1,200 mg PO TID Beclomethasone Dipropionate [Qvar 80 mcg] 2 puff INHALATION RT-BID Albuterol Nebulized [Ventolin Nebulized] 2.5 mg INHALATION RT-QID Butalb/APAP/Caff 50-325-40Mg [Fioricet 50-325-40] 1 tab PO BID PRN PRN Reason: Headache Dimethyl Fumarate [Tecfidera] 240 mg PO BID Memantine [Namenda] 10 mg PO AC-SUPPER Hydrochlorothiazide [Hydrodiuril] 25 mg PO DAILY tab Melatonin 6 mg PO HS tablet Methocarbamol [Robaxin] 500 mg PO Q6H PRN #60 tab PRN Reason: MUSCLE Pain Nicotine 14Mg/24Hr Patch [Habitrol] 1 patch TRANSDERM DAILY #30 patch Nystatin 100,000 Unit/ml Susp [Mycostatin Oral Susp] 500,000 unit PO QID #28 cup Cetirizine HCl [Zyrtec] 10 mg PO DAILY oxyCODONE-APAP 10-325MG [Percocet 10-325 mg] 1 each PO TID PRN PRN Reason: pain Discontinued predniSONE 10 mg PO DAILY #30 tab Discharge Medication List Albuterol Inhaler [Ventolin Hfa Inhaler] 2 puff INHALATION RT-Q6H PRN 02/20/14 [ History] Aspirin 81 mg PO DAILY 02/20/14 [History] Cholecalciferol [Vitamin D3] 1,000 units PO DAILY 02/20/14 [History] Fluticasone Propionate [Flonase] 2 spray EA NOSTRIL DAILY PRN 02/20/14 [History] LORazepam [Ativan] 1 mg PO TID PRN 02/20/14 [History] Meclizine [Antivert] 25 mg PO TID PRN 02/20/14 [History] Methocarbamol 500 mg PO Q6H PRN 02/20/14 [History] Montelukast [Singulair] 10 mg PO HS 02/20/14 [History] Multivit with Calcium,Iron,Min [Women's Daily Multivitamin] 1 tab PO DAILY 02/20 [History] PARoxetine HCL [Paxil] 40 mg PO DAILY 02/20/14 [History] Verapamil HCl 120 mg PO DAILY 02/20/14 [History] Beclomethasone Dipropionate [Qvar 80 mcg] 2 puff INHALATION RT-BID 08/19/16 [ History] Gabapentin [Neurontin] 1,200 mg PO TID 08/19/16 [History] Ranitidine HCl [Zantac] 150 mg PO BID 08/19/16 [History] Albuterol Nebulized [Ventolin Nebulized] 2.5 mg INHALATION RT-QID 03/25/17 [ History] Butalb/APAP/Caff 50-325-40Mg [Fioricet 50-325-40] 1 tab PO BID PRN 03/25/17 [ History] Dimethyl Fumarate [Tecfidera] 240 mg PO BID 03/25/17 [History] Memantine [Namenda] 10 mg PO AC-SUPPER 10/02/17 [History] Hydrochlorothiazide [Hydrodiuril] 25 mg PO DAILY tab 10/05/17 [Rx] Melatonin 6 mg PO HS tablet 10/05/17 [Rx] Methocarbamol [Robaxin] 500 mg PO Q6H PRN #60 tab 10/05/17 [Rx] Nicotine 14Mg/24Hr Patch [Habitrol] 1 patch TRANSDERM DAILY #30 patch 10/05/17 [ Rx] Nystatin 100,000 Unit/ml Susp [Mycostatin Oral Susp] 500,000 unit PO QID #28 cup 10/05/17 [Rx] Cetirizine HCl [Zyrtec] 10 mg PO DAILY 01/28/18 [History] oxyCODONE-APAP 10-325MG [Percocet 10-325 mg] 1 each PO TID PRN 01/28/18 [History ] Azithromycin 250 mg PO DAILY #4 tablet 01/31/18 [Rx] methylPREDNISolone Dose Pack [Medrol Dose Pack] 4 mg PO DIRECTED #21 package 01/31/18 [Rx] rOPINIRole HCL [Requip] 0.25 mg PO TID #90 tab 01/31/18 [Rx] rOPINIRole HCL [Requip] 0.25 mg PO TID #90 tablet 01/31/18 [Rx] Follow up Appointment(s)/Referral(s): [facility] [Provider Group] - 1 Week Carolynn Ramirez MD [STAFF PHYSICIAN] - 2 Weeks Kilo Tabares MD [Primary Care Provider] - 02/03/18 10:30 am (Thursday) Patient Instructions/Handouts: Chest Pain (DC), Multiple Sclerosis (DC) Discharge Disposition: HOME SELF-CARE
[2018-02-01] MEDS ORDERED: AZITHROMYCIN 500 MG TAB PO SCH (09:00)
== END 2018-01-31 18:15 | disposition home or self-care (01) | DRG 59 ==
LOC: EC 09:02 → 6SEL 12:26 → 4MS4W 01-30 21:20
PROVIDERS: ADMIT Family Medicine; ATTEND Family Medicine
DX: G35 Multiple sclerosis (principal); Z68.41 Body mass index [BMI] 40.0-44.9, adult; E66.2 Morbid (severe) obesity with alveolar hypoventilation; D50.9 Iron deficiency anemia, unspecified; F17.200 Nicotine dependence, unspecified, uncomplicated; F32.9 Major depressive disorder, single episode, unspecified; F41.9 Anxiety disorder, unspecified; R47.82 Fluency disorder in conditions classified elsewhere; G25.81 Restless legs syndrome; G43.909 Migraine, unspecified, not intractable, without status migrainosus; I11.9 Hypertensive heart disease without heart failure; J44.9 Chronic obstructive pulmonary disease, unspecified; J45.20 Mild intermittent asthma, uncomplicated; K21.9 Gastro-esophageal reflux disease without esophagitis; M54.81 Occipital neuralgia; M79.7 Fibromyalgia; M81.0 Age-related osteoporosis without current pathological fracture; R29.6 Repeated falls; T38.0X5A Adverse effect of glucocorticoids and synthetic analogues, initial encounter; R73.9 Hyperglycemia, unspecified; W22.03XA Walked into furniture, initial encounter; Y92.003 Bedroom of unspecified non-institutional (private) residence as the place of occurrence of the external cause; W18.39XA Other fall on same level, initial encounter; Z91.81 History of falling; Z79.82 Long term (current) use of aspirin; Z79.899 Other long term (current) drug therapy; Z82.3 Family history of stroke; Z82.41 Family history of sudden cardiac death; Z82.49 Family history of ischemic heart disease and other diseases of the circulatory system; Z85.42 Personal history of malignant neoplasm of other parts of uterus; Z90.710 Acquired absence of both cervix and uterus; Z92.3 Personal history of irradiation; M19.90 Unspecified osteoarthritis, unspecified site; R07.89 Other chest pain; Z51.81 Encounter for therapeutic drug level monitoring; R74.8 Abnormal levels of other serum enzymes; T48.295A Adverse effect of other drugs acting on muscles, initial encounter; F40.240 Claustrophobia
CPT/HCPCS: 36415; 70450; 70553; 71046; 80048; 80053; 80061; 81003; 82550; 82553; 82607; 83036; 83540; 83550; 83835; 84443; 84484; 85025; 85610; 85730; 93005; 93306; 94640; 94760; 96361; 96365; 96368; 96375; 96376; 99285

== ENCOUNTER → 2018-03-05 | Outpatient (CLI) | payer MEDICARE, OTHER ==
--- NOTE | 2018-03-05 11:47 | CT ---
EXAMINATION TYPE: CT sinus wo con DATE OF EXAM: 03/05/2018 COMPARISON: NONE HISTORY: Chronic sinusitis CT DLP: 596.5 mGycm. Automated Exposure Control for Dose Reduction was Utilized. TECHNIQUE: CT scan of the sinuses is performed without contrast, axial images are obtained, coronal r eformatted images are also reviewed. FINDINGS: There is trace mucosal thickening within the dependent right maxillary sinus. Mucosal hyper trophy is seen of the inferior nasal turbinates and to a lesser degree at the middle nasal turbinates . No gem bullosa or left-sided Tamanna cells are seen. A 4 mm right nonobstructing Tamanna cell is n oted. Ostiomeatal complexes are patent however there is tortuosity noted of the ostia medial complex on the right. Frontal recesses are also patent. Visualized portions of the mastoid air cells are well aerated. Globes, lenses, and extraocular muscles are symmetric. Exam is not optimized for evaluation of the visualized intracranial structures. Minimal atherosclerosis is noted of the intracranial vasc ulature. No acute fracture seen. IMPRESSION: 1. Small nonobstructing right Tamanna cell and tortuosity of the right ostiomeatal complex with trace right maxillary mucosal thickening. 2. Mild bilateral inferior and middle nasal turbinate mucosal hypertrophy.
--- NOTE | 2018-03-05 12:40 | FL ---
EXAMINATION TYPE: FL barium swallow w video DATE OF EXAM: 03/05/2018 MODIFIED SWALLOW / DEGLUTITION STUDY CLINICAL HISTORY: Dysphagia. TECHNIQUE: Deglutition study is performed utilizing thin liquid barium, honey and nectar thick liqui d barium, barium thick applesauce, and barium coated cracker. 0 images were saved as the exam was vid eo recorded. 0.48 minutes of fluoroscopy time was utilized. COMPARISON: None. FINDINGS: The oral and pharyngeal phases show satisfactory initiation and propagation with all modali ties tested. Normal mastication is seen with solid modalities tested. There is no evidence of penet ration or aspiration with any modality tested. No significant pharyngeal residue was appreciated. IMPRESSION: Normal deglutition study. Please refer to speech therapist notes for further details if necessary.
== END | disposition home or self-care (01) ==
LOC: RADFLMAIN 10:51
PROVIDERS: ATTEND Otolaryngology
DX: J34.3 Hypertrophy of nasal turbinates (principal); J34.89 Other specified disorders of nose and nasal sinuses; J32.9 Chronic sinusitis, unspecified; R13.10 Dysphagia, unspecified
CPT/HCPCS: 70486; 74230

== ENCOUNTER 2018-04-02 13:50 | Inpatient (IN) | payer MEDICARE, OTHER ==
[2018-04-02] MEDS ORDERED: SODIUM CHLORIDE 0.9% 1,000 ML IV STA (14:15)
--- NOTE | 2018-04-02 14:19 | ED ---
General Adult HPI - General Chief complaint: Weakness Stated complaint: WEAKNESS Time Seen by Provider: 04/02/18 13:55 Source: patient, EMS, RN notes reviewed Mode of arrival: EMS Limitations: no limitations - History of Present Illness Initial comments: Patient is a pleasant 52-year-old female presenting to the emergency Department with generalized weakness. Symptoms have progressed over the past couple of weeks. Patient did go see her neurologist today, Dr. Ramirez and was advised come to the hospital secondary to concern for MS exacerbation. Patient has had similar symptoms previously. Patient has previously responded to IV steroid use. Patient does admit to having somewhat of a cough with occasional yellow sputum. Patient reportedly had low oxygen saturation at the office. Patient states this does occur with her MS exacerbations. Patient also frequently gets slurred speech with her MS exacerbations which she does have. No abdominal pain or dysuria. No headache or neck stiffness. - Related Data Home Medications Medication Instructions Recorded Confirmed Albuterol Inhaler [Ventolin Hfa 2 puff INHALATION RT-Q6H PRN 02/20/14 04/02/18 Inhaler] Aspirin 81 mg PO DAILY 02/20/14 04/02/18 Cholecalciferol [Vitamin D3] 1,000 units PO DAILY 02/20/14 04/02/18 LORazepam [Ativan] 1 mg PO Q8H PRN 02/20/14 04/02/18 Multivit with Calcium,Iron,Min 1 tab PO DAILY 02/20/14 04/02/18 [Women's Daily Multivitamin] PARoxetine HCL [Paxil] 40 mg PO DAILY 02/20/14 04/02/18 Verapamil HCl 120 mg PO DAILY 02/20/14 04/02/18 Gabapentin [Neurontin] 1,200 mg PO TID 08/19/16 04/02/18 Ranitidine HCl [Zantac] 150 mg PO BID 08/19/16 04/02/18 Butalb/APAP/Caff 50-325-40Mg 1 tab PO Q8H PRN 03/25/17 04/02/18 [Fioricet 50-325-40] Dimethyl Fumarate [Tecfidera] 240 mg PO BID 03/25/17 04/02/18 Memantine [Namenda] 10 mg PO AC-SUPPER 10/02/17 04/02/18 oxyCODONE-APAP 10-325MG [Percocet 1 each PO TID PRN 01/28/18 04/02/18 10-325 mg] Docusate [Colace] 100 mg PO DAILY PRN 04/02/18 04/02/18 Methocarbamol [Robaxin] 750 mg PO Q6H 04/02/18 04/02/18 Ondansetron HCl [Zofran] 8 mg PO TID PRN 04/02/18 04/02/18 Previous Rx's Medication Instructions Recorded Melatonin 6 mg PO HS tablet 10/05/17 Nystatin 100,000 Unit/ml Susp 500,000 unit PO QID #28 cup 10/05/17 [Mycostatin Oral Susp] rOPINIRole HCL [Requip] 0.25 mg PO TID #90 tab 01/31/18 Allergies Allergy/AdvReac Type Severity Reaction Status Date / Time No Known Allergies Allergy Verified 04/02/18 13:58 Review of Systems ROS Statement: Those systems with pertinent positive or pertinent negative responses have been documented in the HPI. ROS Other: All systems not noted in ROS Statement are negative. Constitutional: Reports: fever (No fever in the past couple of days) Eyes: Denies: eye pain ENT: Denies: ear pain Respiratory: Reports: cough Cardiovascular: Denies: chest pain Endocrine: Reports: fatigue Gastrointestinal: Denies: abdominal pain Genitourinary: Denies: dysuria Musculoskeletal: Denies: back pain Skin: Denies: rash Neurological: Reports: as per HPI, weakness. Denies: headache, confusion Past Medical History Past Medical History: Asthma, Cancer, COPD, Fibromyalgia, GERD/Reflux, Hypertension, Neurologic Disorder, Osteoarthritis (OA), Syncope Additional Past Medical History / Comment(s): Rheumatic fever, heart murmur, osteoporosis, chronic bronchitis, MS,vertigo, lexiscan stress test. 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 History of Any Multi-Drug Resistant Organisms: None Reported Past Surgical History: Bladder Surgery, Heart Catheterization, Hysterectomy Additional Past Surgical History / Comment(s): uterine cancer, radiation, Past Anesthesia/Blood Transfusion Reactions: No Reported Reaction Additional Past Anesthesia/Blood Transfusion Reaction / Comment(s): mild clausterphobia Past Psychological History: Anxiety, Depression Smoking Status: Current every day smoker Past Alcohol Use History: None Reported Past Drug Use History: None Reported - Past Family History Mother Family Medical History: CVA/TIA, Myocardial Infarction ([place]) Additional Family Medical History / Comment(s): Mother is alive at age 72 with history of brain aneurysm, 3 strokes and 2 myocardial infarctions. Father Additional Family Medical History / Comment(s): Father at age 72 from a cardiac arrest thought to be due to a myocardial infarction. Sister(s) Additional Family Medical History / Comment(s): Patient has 2 sisters with no major medical problems. Patient does not have any brothers. Patient has 2 children ages 33 and 26 with no major medical problems. General Exam Limitations: no limitations General appearance: alert, in no apparent distress Head exam: Present: atraumatic Eye exam: Present: normal appearance, PERRL ENT exam: Present: normal oropharynx Neck exam: Present: normal inspection Respiratory exam: Present: normal lung sounds bilaterally Cardiovascular Exam: Present: regular rate, normal rhythm GI/Abdominal exam: Present: soft. Absent: tenderness Extremities exam: Present: normal inspection. Absent: pedal edema, calf tenderness Neurological exam: Present: alert, CN II-XII intact Expanded Neurological exam: Present: protecting the airway, other (Mild slurred speech) Cranial nerves: EOM's Intact: Normal Sensory exam: Upper Extremity Light Touch: Normal, Lower Extremity Light Touch: Normal Motor strength exam: RUE: 5, LUE: 5, RLE: 3, LLE: 3 Eye Response: (4) open spontaneously Motor Response: (6) obeys commands Verbal Response: (5) oriented Psychiatric exam: Present: normal affect, normal mood Skin exam: Present: normal color Course Vital Signs 04/02/18 04/02/18 13:52 15:58 Temperature 97.7 F Pulse Rate 86 88 Respiratory 22 20 Rate Blood Pressure 117/73 113/64 O2 Sat by Pulse 97 96 Oximetry EKG Findings - EKG Comments: EKG Findings:: Normal sinus rhythm 85. NE 164. QRS 72. QT 388. QTC 461. Normal axis. Poor R-wave progression. No acute ST change. Medical Decision Making - Medical Decision Making Patient reevaluated and resting comfortably in bed. Patient is updated on results and plan. Case was discussed in detail with Dr. Guzmán, covering for Dr. Tabares, who will admit. She requests assignment all 250 mg IV every 6 and neurology consult - Lab Data Result diagrams: 04/02/18 14:11 04/02/18 14:11 Lab Results 04/02/18 04/02/18 04/02/18 Range/Units 14:11 14:11 14:11 WBC 10.1 (3.8-10.6) k/uL RBC 4.92 (3.80-5.40) m/uL Hgb 14.6 (11.4-16.0) gm/dL Hct 48.3 H (34.0-46.0) % MCV 98.2 (80.0-100.0) fL MCH 29.6 (25.0-35.0) pg MCHC 30.1 L (31.0-37.0) g/dL RDW 15.6 H (11.5-15.5) % Plt Count 256 (150-450) k/uL Neutrophils % 60 % Lymphocytes % 30 % Monocytes % 5 % Eosinophils % 2 % Basophils % 1 % Neutrophils # 6.1 (1.3-7.7) k/uL Lymphocytes # 3.1 (1.0-4.8) k/uL Monocytes # 0.5 (0-1.0) k/uL Eosinophils # 0.3 (0-0.7) k/uL Basophils # 0.1 (0-0.2) k/uL Hypochromasia Moderate Macrocytosis Slight PT (9.0-12.0) sec INR (<1.2) APTT (22.0-30.0) sec Sodium 139 (137-145) mmol/L Potassium 4.7 (3.5-5.1) mmol/L Chloride 99 (98-107) mmol/L Carbon Dioxide 32 H (22-30) mmol/L Anion Gap 8 mmol/L BUN 6 L (7-17) mg/dL Creatinine 0.50 L (0.52-1.04) mg/dL Est GFR (CKD-EPI)AfAm >90 (>60 ml/min/1.73 sqM) Est GFR (CKD-EPI)NonAf >90 (>60 ml/min/1.73 sqM) Glucose 90 (74-99) mg/dL Plasma Lactic Acid Adalid (0.7-2.0) mmol/L Calcium 9.1 (8.4-10.2) mg/dL Phosphorus 3.9 (2.5-4.5) mg/dL Magnesium 1.8 (1.6-2.3) mg/dL Total Bilirubin 0.6 (0.2-1.3) mg/dL AST 57 H (14-36) U/L ALT 12 (9-52) U/L Alkaline Phosphatase 106 (38-126) U/L Total Creatine Kinase 40 (30-135) U/L CK-MB (CK-2) <0.2 (0.0-2.4) ng/mL CK-MB (CK-2) Rel Index Troponin I <0.012 (0.000-0.034) ng/mL Total Protein 7.1 (6.3-8.2) g/dL Albumin 4.2 (3.5-5.0) g/dL TSH 1.060 (0.465-4.680) mIU/L Urine Color Urine Appearance (Clear) Urine pH (5.0-8.0) Ur Specific [place] (1.001-1.035) Urine Protein (Negative) Urine Glucose (UA) (Negative) Urine Ketones (Negative) Urine Blood (Negative) Urine Nitrite (Negative) Urine Bilirubin (Negative) Urine Urobilinogen (<2.0) mg/dL Ur Leukocyte Esterase (Negative) 04/02/18 04/02/18 04/02/18 Range/Units 14:11 14:11 14:45 WBC (3.8-10.6) k/uL RBC (3.80-5.40) m/uL Hgb (11.4-16.0) gm/dL Hct (34.0-46.0) % MCV (80.0-100.0) fL MCH (25.0-35.0) pg MCHC (31.0-37.0) g/dL RDW (11.5-15.5) % Plt Count (150-450) k/uL Neutrophils % % Lymphocytes % % Monocytes % % Eosinophils % % Basophils % % Neutrophils # (1.3-7.7) k/uL Lymphocytes # (1.0-4.8) k/uL Monocytes # (0-1.0) k/uL Eosinophils # (0-0.7) k/uL Basophils # (0-0.2) k/uL Hypochromasia Macrocytosis PT 9.7 (9.0-12.0) sec INR 1.0 (<1.2) APTT 23.5 (22.0-30.0) sec Sodium (137-145) mmol/L Potassium (3.5-5.1) mmol/L Chloride (98-107) mmol/L Carbon Dioxide (22-30) mmol/L Anion Gap mmol/L BUN (7-17) mg/dL Creatinine (0.52-1.04) mg/dL Est GFR (CKD-EPI)AfAm (>60 ml/min/1.73 sqM) Est GFR (CKD-EPI)NonAf (>60 ml/min/1.73 sqM) Glucose (74-99) mg/dL Plasma Lactic Acid Adalid 1.1 (0.7-2.0) mmol/L Calcium (8.4-10.2) mg/dL Phosphorus (2.5-4.5) mg/dL Magnesium (1.6-2.3) mg/dL Total Bilirubin (0.2-1.3) mg/dL AST (14-36) U/L ALT (9-52) U/L Alkaline Phosphatase (38-126) U/L Total Creatine Kinase (30-135) U/L CK-MB (CK-2) (0.0-2.4) ng/mL CK-MB (CK-2) Rel Index Troponin I (0.000-0.034) ng/mL Total Protein (6.3-8.2) g/dL Albumin (3.5-5.0) g/dL TSH (0.465-4.680) mIU/L Urine Color Light Yellow Urine Appearance Clear (Clear) Urine pH 6.0 (5.0-8.0) Ur Specific [place] 1.007 (1.001-1.035) Urine Protein Negative (Negative) Urine Glucose (UA) Negative (Negative) Urine Ketones Negative (Negative) Urine Blood Negative (Negative) Urine Nitrite Negative (Negative) Urine Bilirubin Negative (Negative) Urine Urobilinogen <2.0 (<2.0) mg/dL Ur Leukocyte Esterase Negative (Negative) - Radiology Data Radiology results: image reviewed (Chest x-ray shows no acute process) Disposition Clinical Impression: Multiple sclerosis exacerbation Disposition: ADMITTED IP TO THIS HOSP Is patient prescribed a controlled substance at d/c from ED?: No Referrals: Kilo Tabares MD [Primary Care Provider] - 1-2 days Decision Time: 16:34
[2018-04-02 14:58] LABS: Basophils # (A) 0.1 k/uL (0-0.2); Basophils % (A) 1 %; Eosinophils # (A) 0.3 k/uL (0-0.7); Eosinophils % (A) 2 %; HCT 48.3 % (34.0-46.0); HGB 14.6 gm/dL (11.4-16.0); Hypochromasia Moderate; Lymphocytes # (A) 3.1 k/uL (1.0-4.8); Lymphocytes % (A) 30 %; MCH 29.6 pg (25.0-35.0); MCHC 30.1 g/dL (31.0-37.0); MCV 98.2 fL (80.0-100.0); Macrocytosis Slight; Mean Platelet Volume 8.1; Monocytes # (A) 0.5 k/uL (0-1.0); Monocytes % (A) 5 %; Neutrophils # (A) 6.1 k/uL (1.3-7.7); Neutrophils % (A) 60 %; Platelet Count 256 k/uL (150-450); RBC 4.92 m/uL (3.80-5.40); RDW 15.6 % (11.5-15.5); WBC 10.1 k/uL (3.8-10.6)
--- NOTE | 2018-04-02 14:59 | XR ---
EXAMINATION TYPE: XR chest 2V DATE OF EXAM: 04/02/2018 COMPARISON: Chest x-ray January 30, 2018 HISTORY: Weakness and hypoxia. TECHNIQUE: Frontal and lateral views of the chest are obtained. FINDINGS: There is no focal air space opacity, pleural effusion, or pneumothorax seen. The cardiac silhouette size remains enlarged. The osseous structures are intact. IMPRESSION: Cardiomegaly without acute pulmonary process.
[2018-04-02 15:08] LABS: Creatine Kinase 40 U/L (30-135)
[2018-04-02 15:09] LABS: ALT 12 U/L (9-52); AST 57 U/L (14-36); Albumin 4.2 g/dL (3.5-5.0); Alkaline Phosphatase 106 U/L (38-126); Anion Gap 8 mmol/L; Blood Urea Nitrogen 6 mg/dL (7-17); Calcium 9.1 mg/dL (8.4-10.2); Carbon Dioxide 32 mmol/L (22-30); Chloride 99 mmol/L (98-107); Glucose 90 mg/dL (74-99); Magnesium 1.8 mg/dL (1.6-2.3); Phosphorus 3.9 mg/dL (2.5-4.5); Potassium 4.7 mmol/L (3.5-5.1); Sodium 139 mmol/L (137-145); Total Bilirubin 0.6 mg/dL (0.2-1.3); Total Protein 7.1 g/dL (6.3-8.2)
[2018-04-02 15:10] LABS: Appearance,Urine Clear (Clear); Bilirubin,Urine Negative (Negative); Blood,Urine Negative (Negative); Color,Urine Light Yellow; Glucose,Urine (UA) Negative (Negative); Ketones,Urine Negative (Negative); Leukocyte Esterase,Urine Negative (Negative); Nitrite,Urine Negative (Negative); Protein,Urine Negative (Negative); Specific Gravity,Urine 1.007 (1.001-1.035); Urobilinogen,Urine <2.0 mg/dL (<2.0)
[2018-04-02 15:20] LABS: Creatine Kinase MB <0.2 ng/mL (0.0-2.4); Partial Thromboplastin Time 23.5 sec (22.0-30.0); Prothrombin Time 9.7 sec (9.0-12.0); Troponin I <0.012 ng/mL (0.000-0.034)
[2018-04-02] MEDS ORDERED: MORPHINE SULFATE 4 MG/ML SYRINGE IVP STA (15:46)
[2018-04-02] MEDS ORDERED: NALOXONE 0.4 MG/ML 1 ML VIAL IV PRN (16:38)
[2018-04-02] MEDS ORDERED: DOCUSATE 100 MG CAP PO PRN (18:45)
[2018-04-02] MEDS ORDERED: ALBUTEROL NEBULIZED 2.5 MG/3 ML INHALATION PRN (18:45)
[2018-04-02] MEDS ORDERED: ONDANSETRON 4 MG TAB PO PRN (18:45)
--- NOTE | 2018-04-02 19:41 | P.CNNES ---
History of Present Illness Consult date: 04/02/18 Reason for Consult: Patient admitted with MS exacerbation and weakness History of Present Illness: This patient is a 52-year-old -[place] female who was seen today by her primary neurologist. She was complaining of increased weakness and fatigue symptoms and she was advised to go to the hospital for admission and treatment of acute MS exacerbation. Patient states she was just discharged in January of this year for similar episode of acute MS exacerbation and respiratory distress. Patient has a history of multiple sclerosis which was diagnosed about 7 years ago. She had tried various interferon therapies and most recently was using Copaxone. This was failing her and she was switched to a new oral medication Tecfidera which she has been taking for the past 1 year. She states that the MS exacerbations have been frequently share accounting for at least 4 admissions to the hospital. She is being considered for other alternative treatments of her MS. The patient states that her MS mostly affects her left side. She was noticing increasing weakness on her left side and inability to ambulate without the use of her walker. She was seen today by her neurologist and once again was advised admission to hospital. Patient was admitted through the emergency room. She was found to have generalized weakness. She was started on IV Solu-Medrol 250 mg IV piggyback every 6 hours for 3 days. We've recommended the patient should consider at least 3 days of IV Solu-Medrol therapy to see how she responds. If needed she may go an extra day or 2 as needed depending on her response. Patient states that her weakness is mostly on her left side. With her MS exacerbation she also becomes more confused and has difficulty with her speech and language. We are recommending consultations with physical therapy and speech therapy to see this patient during this admission. Plans will be to continue with IV Solu-Medrol therapy for at least 3 days and possibly further depending on her response. We will continue close neurological follow-up with the patient during this admission. Her overall prognosis at this time remains very guarded. Neurology is now been consulted for further evaluation and recommendations. Review of Systems Constitutional: Denies chills, Denies fever Eyes: denies blurred vision, denies pain Ears, nose, mouth and throat: Denies headache, Denies sore throat Cardiovascular: Denies chest pain, Denies shortness of breath Respiratory: Denies cough Gastrointestinal: Denies abdominal pain, Denies diarrhea, Denies nausea, Denies vomiting Genitourinary: Denies dysuria, Denies hematuria Musculoskeletal: Denies myalgias Integumentary: Denies pruritus, Denies rash Neurological: Reports change in mentation, Reports change in speech, Reports memory loss, Reports motor disturbance, Reports paresthesias, Reports tingling, Denies numbness, Denies weakness Psychiatric: Reports confusion, Reports memory loss, Denies anxiety, Denies depression Endocrine: Denies fatigue, Denies weight change Past Medical History Past Medical History: Asthma, Cancer, COPD, Fibromyalgia, GERD/Reflux, Hypertension, Neurologic Disorder, Osteoarthritis (OA), Syncope Additional Past Medical History / Comment(s): Rheumatic fever, heart murmur, osteoporosis, chronic bronchitis, MS,vertigo, lexiscan stress test. 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 History of Any Multi-Drug Resistant Organisms: None Reported Past Surgical History: Bladder Surgery, Heart Catheterization, Hysterectomy Additional Past Surgical History / Comment(s): uterine cancer, radiation, Past Anesthesia/Blood Transfusion Reactions: No Reported Reaction Additional Past Anesthesia/Blood Transfusion Reaction / Comment(s): mild clausterphobia Past Psychological History: Anxiety, Depression Smoking Status: Current every day smoker Past Alcohol Use History: None Reported Past Drug Use History: None Reported - Past Family History Mother Family Medical History: CVA/TIA, Myocardial Infarction ([place]) Additional Family Medical History / Comment(s): Mother is alive at age 72 with history of brain aneurysm, 3 strokes and 2 myocardial infarctions. Father Additional Family Medical History / Comment(s): Father at age 72 from a cardiac arrest thought to be due to a myocardial infarction. Sister(s) Additional Family Medical History / Comment(s): Patient has 2 sisters with no major medical problems. Patient does not have any brothers. Patient has 2 children ages 33 and 26 with no major medical problems. Medications and Allergies Home Medications Medication Instructions Recorded Confirmed Type Albuterol Inhaler [Ventolin Hfa 2 puff INHALATION RT-Q6H PRN 02/20/14 04/02/18 History Inhaler] Aspirin 81 mg PO DAILY 02/20/14 04/02/18 History Cholecalciferol [Vitamin D3] 1,000 units PO DAILY 02/20/14 04/02/18 History LORazepam [Ativan] 1 mg PO Q8H PRN 02/20/14 04/02/18 History Multivit with Calcium,Iron,Min 1 tab PO DAILY 02/20/14 04/02/18 History [Women's Daily Multivitamin] PARoxetine HCL [Paxil] 40 mg PO DAILY 02/20/14 04/02/18 History Verapamil HCl 120 mg PO DAILY 02/20/14 04/02/18 History Gabapentin [Neurontin] 1,200 mg PO TID 08/19/16 04/02/18 History Ranitidine HCl [Zantac] 150 mg PO BID 08/19/16 04/02/18 History Butalb/APAP/Caff 50-325-40Mg 1 tab PO Q8H PRN 03/25/17 04/02/18 History [Fioricet 50-325-40] Dimethyl Fumarate [Tecfidera] 240 mg PO BID 03/25/17 04/02/18 History Memantine [Namenda] 10 mg PO AC-SUPPER 10/02/17 04/02/18 History Melatonin 6 mg PO HS tablet 10/05/17 04/02/18 Rx Nystatin 100,000 Unit/ml Susp 500,000 unit PO QID #28 cup 10/05/17 04/02/18 Rx [Mycostatin Oral Susp] oxyCODONE-APAP 10-325MG [Percocet 1 each PO TID PRN 01/28/18 04/02/18 History 10-325 mg] rOPINIRole HCL [Requip] 0.25 mg PO TID #90 tab 01/31/18 04/02/18 Rx Docusate [Colace] 100 mg PO DAILY PRN 04/02/18 04/02/18 History Methocarbamol [Robaxin] 750 mg PO Q6H 04/02/18 04/02/18 History Ondansetron HCl [Zofran] 8 mg PO TID PRN 04/02/18 04/02/18 History Allergies Allergy/AdvReac Type Severity Reaction Status Date / Time No Known Allergies Allergy Verified 04/02/18 13:58 Physical Examination - Vital Signs Vital Signs: Vital Signs Temp Pulse Pulse Resp BP BP Pulse Ox 04/02/18 18:55 98.0 F 88 115/79 99 04/02/18 17:15 97 F L 85 20 115/66 98 04/02/18 15:58 88 20 113/64 96 04/02/18 15:27 97.8 F 92 120/78 93 L 04/02/18 13:52 97.7 F 86 22 117/73 97 Intake and Output 04/02/18 04/02/18 04/02/18 06:59 14:59 22:59 Other: Weight 104.326 kg - Constitutional General appearance: average body habitus, cooperative, obese - EENT EENT: PERRL, mucous membranes moist - Respiratory Respiratory: lungs clear, normal breath sounds - Cardiovascular Cardiovascular: regular rate, normal S1, normal S2 Extremities: no peripheral edema bilaterally - Gastrointestinal Gastrointestinal: normoactive bowel sounds - Integumentary Integumentary: normal - Neurologic Cranial nerve examination: PERRL, EOMI, VFF, V1/V2/V3 grossly intact, tongue midline, intact gag reflex, intact corneal reflex, normal palatal elevation Speech examination: intact Sensorimotor examination: intact Motor examination - right side: 4/5: biceps, triceps, wrist flexion, wrist extension, 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 service 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, hip flexors, knee extensors, dorsiflexion, toe extension (EHL) , plantarflexion Motor examination - left side: 3/5: biceps, triceps, wrist flexion, wrist extension, compressor service technician, hip flexors, knee extensors, dorsiflexion, toe extension (EHL) , plantarflexion Detailed sensory examination: intact Reflex and gait examination: intact Reflexes: 1+: ankle, bicep, knee, tricep - Musculoskeletal Musculoskeletal: no pain - Psychiatric Psychiatric: mood/affect appropriate, cooperative Results - Laboratory Findings CBC and BMP: 04/02/18 14:11 04/02/18 14:11 Abnormal Lab Findings: Abnormal Labs 04/02/18 04/02/18 14:11 14:11 Hct 48.3 H MCHC 30.1 L RDW 15.6 H Carbon Dioxide 32 H BUN 6 L Creatinine 0.50 L AST 57 H Assessment and Plan (1) Multiple sclerosis exacerbation Current Visit: Yes Status: Acute Code(s): G35 - MULTIPLE SCLEROSIS SNOMED Code(s): 544134347 (2) COPD with exacerbation Current Visit: No Status: Acute Code(s): J44.1 - CHRONIC OBSTRUCTIVE PULMONARY DISEASE W (ACUTE) EXACERBATION SNOMED Code(s): 246379932018115 (3) Fibromyalgia Current Visit: No Status: Acute Code(s): M79.7 - FIBROMYALGIA SNOMED Code( s): 756666030 (4) Headache Current Visit: No Status: Acute Code(s): R51 - HEADACHE SNOMED Code(s): 45733840 Plan: This patient is a 52-year-old right-handed -[place] female admitted to [facility] for acute MS exacerbation. She has a known history of relapsing remitting form of multiple sclerosis which was diagnosed about 7 years ago. She is currently on oral treatment for her MS and is been taking Tecfidera for the past 1 year. Patient developed sudden weakness over the last few days and was advised admission to the hospital for acute MS exacerbation. She was treated for a similar episode just recently in January and discharge home after 3 days. We recommend patient to be started on IV Solu-Medrol therapy for treatment of acute MS exacerbation. We recommended dose of 250 mg of IV Solu-Medrol every 6 [address] the patient on a proton pump inhibitor to protect her stomach. We will make consultation with physical therapy and speech therapy. Her overall prognosis at this time remains guarded. We will continue close neurological follow-up of this patient during this admission. Time with Patient: Greater than 30
[2018-04-02] MEDS: INSULIN ASPART 100 UNIT/ML 1 ML 10 ML VIAL SQ SCH (19:47)
[2018-04-02] MEDS: NICOTINE 14MG/24HR PATCH TRANSDERM SCH (20:26)
[2018-04-02] MEDS: NYSTATIN 100,000 UNIT/ML SUSP 500,000 UNIT/5 ML CUP PO SCH (20:26)
[2018-04-02] MEDS: GABAPENTIN 400 MG CAP PO SCH (20:26)
[2018-04-02] MEDS: FAMOTIDINE 20 MG TAB PO SCH (20:26)
[2018-04-02] MEDS: MELATONIN 3 MG TABLET PO SCH (20:26)
[2018-04-02] MEDS: oxyCODONE-APAP 10-325MG 1 EACH TAB PO PRN (20:33)
[2018-04-02 20:36] LABS: Glucose,Whole Blood 120 mg/dL (75-99)
[2018-04-02] MEDS: METHOCARBAMOL 750 MG TAB PO SCH (20:50)
[2018-04-03] MEDS: methylPREDNISolone SOD SUCCI 250 MG in SODIUM CHLORIDE 0.9% 100 ML IVPB SCH ×4 (00:16→18:20)
[2018-04-03] MEDS: LORazepam 1 MG TAB PO PRN ×3 (00:16→18:23)
[2018-04-03] MEDS: METHOCARBAMOL 750 MG TAB PO SCH ×3 (04:52→22:00)
[2018-04-03] MEDS: oxyCODONE-APAP 10-325MG 1 EACH TAB PO PRN ×3 (05:05→21:59)
[2018-04-03 07:16] LABS: Glucose,Whole Blood 139 mg/dL (75-99)
[2018-04-03] MEDS: FAMOTIDINE 20 MG TAB PO SCH ×2 (10:28→18:25)
[2018-04-03] MEDS: VERAPAMIL SR 120 MG TABLET.ER PO SCH (10:29)
[2018-04-03] MEDS: CHOLECALCIFEROL 1,000 UNIT TAB PO SCH (10:29)
[2018-04-03] MEDS: PARoxetine 20 MG TAB PO SCH (10:29)
[2018-04-03] MEDS: GABAPENTIN 400 MG CAP PO SCH ×3 (10:29→21:59)
[2018-04-03] MEDS: ASPIRIN 81 MG PO SCH (10:29)
--- NOTE | 2018-04-03 10:29 | P.HPIM ---
History of Present Illness H&P Date: 04/03/18 This is a 52-year-old -Filipino female patient of Dr. Tabares with past medical history of asthma, uterine cancer status post hysterectomy and radiation , fibromyalgia, COPD, chronic hypoxic respiratory failure on home O2, gastroesophageal reflux disease, hypertension, osteoarthritis and osteoporosis, MS currently on Tecfidera, after she was on Copaxone for quite sometime, she has been under the care of from neurology Dr. Ramirez, is also treated for chronic pain and undergoes frequent injections and including occipital nerve block. Patient states that she had bilateral Dr. Ramirez yesterday and normally sees him every 1-2 weeks. She was instructed to go to the hospital and EMS was called to transport her to [facility]. Patient states that she has had trouble with falling, slurred speech and lack of memory as well as pain control. She also states that her pulse ox was low in the office. Her last MS exacerbation was in January of this year at which time she was also treated for elevated troponins without GA. Patient states that she normally walks with a cane or walker at her baseline and Dr. Ramirez has informed her that she may need to get a wheelchair soon. She is currently living in a two-story home with a basement and is looking for a single level home. Regarding smoking, she quit 4 approximate 3 months only the share. She continues to smoke less than a pack per day. Patient came into [facility] emergency center for evaluation. Vital signs were stable, white count was normal, hemoglobin 14.6, BUN 6 and creatinine 0.50. blood glucose 90. Urinalysis was negative. Troponin was negative. AST 57 otherwise renal function and liver function tests were within normal limits. TSH 1.060. EKG was in normal sinus rhythm with no ST changes. Chest x-ray showed cardiomegaly with acute pulmonary process. Patient was admitted to the [facility] floor and consult with Dr. Alon guevara. He has started the patient on Solu-Medrol 250 mg IV piggyback every 6 hours for MS exacerbation and COPD exacerbation. Consult with Dr. Javier added. Patient normally follows with Dr. Laurie Collins in.. Review of Systems All systems: negative Constitutional: Reports chronic pain, Reports fatigue, Reports weakness, Denies chills, Denies fever, Denies poor appetite Eyes: bilateral photophobia, denies blurred vision, denies pain Ears, nose, mouth and throat: Denies dental pain, Denies dysphagia, Denies headache, Denies sore throat, Denies vertigo Cardiovascular: Reports decreased exercise tolerance, Reports dyspnea on exertion, Denies chest pain, Denies edema, Denies leg edema, Denies lightheadedness, Denies shortness of breath, Denies syncope Respiratory: Reports cough, Reports dyspnea, Reports home oxygen, Reports wheezing, Denies excessive sputum, Denies hemoptysis Gastrointestinal: Denies abdominal pain, Denies diarrhea, Denies loss of appetite, Denies melena, Denies nausea, Denies vomiting Genitourinary: Denies dysuria, Denies hematuria Musculoskeletal: Reports gait dysfunction, Reports muscle weakness, Reports neck pain, Denies myalgias Integumentary: Denies pruritus, Denies rash, Denies wounds Neurological: Reports gait dysfunction, Reports memory loss, Reports visual changes, Denies change in mentation, Denies confusion, Denies convulsions, Denies head injury, Denies numbness, Denies vertigo, Denies weakness Psychiatric: Denies anxiety, Denies depression Endocrine: Denies fatigue, Denies weight change Past Medical History Past Medical History: Asthma, Cancer, COPD, Fibromyalgia, GERD/Reflux, Hypertension, Neurologic Disorder, Osteoarthritis (OA), Syncope Additional Past Medical History / Comment(s): Rheumatic fever, heart murmur, osteoporosis, chronic bronchitis, MS,vertigo, lexiscan stress test. 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 History of Any Multi-Drug Resistant Organisms: None Reported Past Surgical History: Bladder Surgery, Heart Catheterization, Hysterectomy Additional Past Surgical History / Comment(s): uterine cancer, radiation, Past Anesthesia/Blood Transfusion Reactions: No Reported Reaction Additional Past Anesthesia/Blood Transfusion Reaction / Comment(s): mild clausterphobia Past Psychological History: Anxiety, Depression Smoking Status: Current every day smoker Past Alcohol Use History: None Reported Additional Past Alcohol Use History / Comment(s): Patient is a smoker of less than one pack per day and has smoked on and off for 20 years. She denies any marijuana or street drug use. She is and lives alone. Past Drug Use History: None Reported - Past Family History Mother Family Medical History: CVA/TIA, Myocardial Infarction (GA) Additional Family Medical History / Comment(s): Mother is alive at age 73 with history of brain aneurysm, 3 strokes and 2 myocardial infarctions. Father Additional Family Medical History / Comment(s): Father at age 72 from a cardiac arrest thought to be due to a myocardial infarction. Sister(s) Additional Family Medical History / Comment(s): Patient has 2 sisters with no major medical problems. Patient does not have any brothers. Patient has 2 children ages 34 and 27 with no major medical problems. Patient is only family member with MS. Medications and Allergies Home Medications Medication Instructions Recorded Confirmed Type Albuterol Inhaler [Ventolin Hfa 2 puff INHALATION RT-Q6H PRN 02/20/14 04/02/18 History Inhaler] Aspirin 81 mg PO DAILY 02/20/14 04/02/18 History Cholecalciferol [Vitamin D3] 1,000 units PO DAILY 02/20/14 04/02/18 History LORazepam [Ativan] 1 mg PO Q8H PRN 02/20/14 04/02/18 History Multivit with Calcium,Iron,Min 1 tab PO DAILY 02/20/14 04/02/18 History [Women's Daily Multivitamin] PARoxetine HCL [Paxil] 40 mg PO DAILY 02/20/14 04/02/18 History Verapamil HCl 120 mg PO DAILY 02/20/14 04/02/18 History Gabapentin [Neurontin] 1,200 mg PO TID 08/19/16 04/02/18 History Ranitidine HCl [Zantac] 150 mg PO BID 08/19/16 04/02/18 History Butalb/APAP/Caff 50-325-40Mg 1 tab PO Q8H PRN 03/25/17 04/02/18 History [Fioricet 50-325-40] Dimethyl Fumarate [Tecfidera] 240 mg PO BID 03/25/17 04/02/18 History Memantine [Namenda] 10 mg PO AC-SUPPER 10/02/17 04/02/18 History Melatonin 6 mg PO HS tablet 10/05/17 04/02/18 Rx Nystatin 100,000 Unit/ml Susp 500,000 unit PO QID #28 cup 10/05/17 04/02/18 Rx [Mycostatin Oral Susp] oxyCODONE-APAP 10-325MG [Percocet 1 each PO TID PRN 01/28/18 04/02/18 History 10-325 mg] rOPINIRole HCL [Requip] 0.25 mg PO TID #90 tab 01/31/18 04/02/18 Rx Docusate [Colace] 100 mg PO DAILY PRN 04/02/18 04/02/18 History Methocarbamol [Robaxin] 750 mg PO Q6H 04/02/18 04/02/18 History Ondansetron HCl [Zofran] 8 mg PO TID PRN 04/02/18 04/02/18 History Allergies Allergy/AdvReac Type Severity Reaction Status Date / Time No Known Allergies Allergy Verified 04/02/18 13:58 Physical Exam Vitals: Vital Signs Temp Pulse Pulse Resp BP BP Pulse Ox 04/03/18 00:37 97.8 F 75 18 112/77 96 04/02/18 18:55 98.0 F 88 115/79 99 04/02/18 17:15 97 F L 85 20 115/66 98 04/02/18 15:58 88 20 113/64 96 04/02/18 15:27 97.8 F 92 120/78 93 L 04/02/18 13:52 97.7 F 86 22 117/73 97 Intake and Output 04/02/18 04/03/18 04/03/18 22:59 06:59 14:59 Intake Total 400 300 Balance 400 300 Intake: Intake, IV Titration 400 Amount Sodium Chloride 0.9% 1, 400 000 ml @ 100 mls/hr IV . Q10H STA Rx#:[id number] Oral 300 Other: # Voids 1 2 General appearance: cooperative, no acute distress, morbidly obese, patient noticed to be stuttering - EENT Eyes: anicteric sclerae, EOMI, PERRLA, dentition normal, normal appearance ENT: hearing grossly normal, NA/AT, normal oropharynx - Neck occipital nerualgia , left, psotive tenderness, neg brudzinski, neg kernig Neck: normal ROM Thyroid: bilateral: normal size, negative: enlarged, firm, nodule - Respiratory Respiratory: bilateral: CTA, negative: diminished, dullness, rales, rhonchi - Cardiovascular Rhythm: regular Heart sounds: normal: S1, S2 Abnormal Heart Sounds: no systolic murmur, no diastolic murmur, no rub, no S3 Gallop, no S4 Gallop, no click, no other - Gastrointestinal General gastrointestinal: no absent bowel sounds, no decreased bowel sounds, no distended, no hepatomegaly, no hyperactive bowel sounds, normal bowel sounds, no organomegaly, no rigid, no scaphoid, soft, no splenomegaly, no tenderness, no umbilical hernia, no ventral hernia - Integumentary Integumentary: no calor, no cellulitis, no cyanotic, decreased turgor, no flushed, no jaundiced, normal, no normal turgor, no pale, no rash, no ulcer - Neurologic hypersomnia while being interviewed but easily awakens with voice Neurologic: CNII-XII intact - Musculoskeletal Musculoskeletal: generalized weakness, strength equal bilaterally - Psychiatric Psychiatric: A&O x's 3, appropriate affect, intact judgment & insight Results CBC & Chem 7: 04/02/18 14:11 04/02/18 14:11 Labs: Abnormal Lab Results - Last 24 Hours (Table) 04/02/18 04/02/18 04/02/18 Range/Units 14:11 14:11 20:22 Hct 48.3 H (34.0-46.0) % MCHC 30.1 L (31.0-37.0) g/dL RDW 15.6 H (11.5-15.5) % Carbon Dioxide 32 H (22-30) mmol/L BUN 6 L (7-17) mg/dL Creatinine 0.50 L (0.52-1.04) mg/dL POC Glucose (mg/dL) 120 H (75-99) mg/dL AST 57 H (14-36) U/L 04/03/18 Range/Units 07:14 Hct (34.0-46.0) % MCHC (31.0-37.0) g/dL RDW (11.5-15.5) % Carbon Dioxide (22-30) mmol/L BUN (7-17) mg/dL Creatinine (0.52-1.04) mg/dL POC Glucose (mg/dL) 139 H (75-99) mg/dL AST (14-36) U/L Thrombosis Risk Factor Assmnt - DVT/VTE Prophylaxis DVT/VTE Prophylaxis: Pharmacologic Prophylaxis ordered - Choose All That Apply Any of the Below Risk Factors Present?: Yes Each Factor Represents 1 point: Obesity (BMI >25) Other Risk Factors: No Other congenital or acquired thrombophilia - If yes, enter type in comment: No Thrombosis Risk Factor Assessment Total Risk Factor Score: 1 Thrombosis Risk Factor Assessment Level: Low Risk Assessment and Plan Plan: 1. Acute exacerbation of relapsing remitting multiple sclerosis. Patient follows with Dr. Ramirez and is normally on Tecfidera 240 mg orally twice every day. Consult with Dr. Alon infante. Patient started on Solu-Medrol 250 mg every 6 hours. 2. Acute exacerbation of COPD. Continue albuterol every 6 hours as needed, Solu-Medrol, consult with Dr. Javier. 3. Chronic pain and occipital neuralgia under the care of Dr. Ramirez. Continue gabapentin 1200 mg 3 times daily, Robaxin 750 mg every 8 hours, Percocet one 3 times daily to [place] box and put her milligrams 2 times daily. 4. Hypertension and hypertensive cardiovascular disease. Continue verapamil 120 mg orally once every day. 5. Obesity with possible obstructive sleep apnea and obesity hypoventilation syndrome. Recommend outpatient sleep study 6. Mild intermittent Asthma and COPD. Continue nebulized treatment 4 times every day. Support with oxygen as needed. Consult with Dr. Javier. 7. Fibromyalgia. Continue gabapentin 1200 mg orally 3 times every day, continue Robaxin 500 mg orally 4 times every day. 8. ALLERGIC rhinitis, stable. 9. Recurrent depression. Continue paroxetine 40 mg orally once every day. 10. Chronic tobacco use and dependence. Smoking cessation and counseling an increased risk of CAD, CVA, and malignancy. Continue nicotine patch 14 mg once every day. 11. DVT prophylaxis. Heparin 5000 units subcutaneously every 8 hours, bilateral knee-high MAYUR hose. 12. GI prophylaxis. Continue patient on pepcid 20 mg orally bid. 13. Memory loss, related to ms along with sleep disruption. Continue Namenda. 14. Restless leg syndrome. Continue Requip 0.25 mg 2 times daily Patient admitted to the hospital for a minimum of 3 nights stay. Discharge plan: Most likely home Impression and plan of care have been directed as dictated by the signing physician. Elaine Nguyen nurse practitioner acting as scribe for signing physician.
[2018-04-03] MEDS: NYSTATIN 100,000 UNIT/ML SUSP 500,000 UNIT/5 ML CUP PO SCH ×4 (10:51→21:59)
[2018-04-03] MEDS: INSULIN ASPART 100 UNIT/ML 1 ML 10 ML VIAL SQ SCH ×4 (10:51→21:59)
[2018-04-03] MEDS: BUTALB/APAP/CAFF 50-325-40MG TAB PO PRN ×2 (11:05→18:22)
[2018-04-03] MEDS: HYDROCHLOROTHIAZIDE 25 MG TAB PO SCH (11:07)
[2018-04-03 11:33] LABS: Glucose,Whole Blood 159 mg/dL (75-99)
[2018-04-03] MEDS ORDERED: IPRATROPIUM-ALBUTEROL 3 ML NEB INHALATION PRN (12:25)
[2018-04-03] MEDS: MULTIVITAMINS, THERA 1 EACH TAB PO SCH (12:52)
[2018-04-03 14:34] LABS: Hemoglobin A1C 6.4 % (4.0-6.0)
[2018-04-03] MEDS: DOXYCYCLINE 100 MG CAP PO SCH ×2 (14:58→22:01)
[2018-04-03 17:03] LABS: Glucose,Whole Blood 175 mg/dL (75-99)
[2018-04-03] MEDS: HEPARIN SODIUM,PORCINE 5,000 UNIT/ML 1 ML VIAL SQ SCH (18:18)
[2018-04-03] MEDS: MEMANTINE 10 MG TAB PO SCH (18:19)
[2018-04-03 19:43] LABS: Glucose,Whole Blood 148 mg/dL (75-99)
[2018-04-03] MEDS: IPRATROPIUM-ALBUTEROL 3 ML NEB INHALATION SCH ×2 (19:45→20:29)
--- NOTE | 2018-04-03 19:56 | P.PN ---
Subjective Progress Note Date: 04/03/18 This patient is a 52 year old -Nigerian female admtted yesterday for an acute MS exacerbation. She is being treated with IV Solumedrol for treatment of the acute MS exacerbation. The patient has multiple complex medical problems in the past including history of uterine cancer and is status post hysterectomy and radiation therapy. She is also being treated for fibromyalgia and osteoporosis. She also suffers from chronic pain which her primary neurologist treats her with injections. More recently she has been expressing increasing weakness and multiple falls at home associated with memory difficulties. As noted yesterday her last MS exacerbation was fairly recently for which she was admitted in January of this year. She is currently living in the two-story home and is looking to move into a single level home for ease of ambulation. She is been started on IV Solu-Medrol 250 mg IV piggyback every 6 hours for the next 3 days. Depending on her response. Her adjustments will be made as needed. She does have history of underlying COPD and is currently being treated with albuterol every 6 hours as needed. Pulmonary has been consulted as well. We will continue close neurological follow-up with the patient during this admission. Objective - Vital Signs Vital signs: Vital Signs Temp 97.4 F L 04/03/18 10:36 Pulse 71 04/03/18 10:36 Resp 16 04/03/18 10:36 BP 147/82 04/03/18 10:36 Pulse Ox 94 L 04/03/18 10:36 Intake & Output 04/02/18 04/03/18 04/03/18 18:59 06:59 18:59 Intake Total 700 Balance 700 Weight 104.326 kg Intake: Intake, IV Titration 400 Amount Sodium Chloride 0.9% 1, 400 000 ml @ 100 mls/hr IV . Q10H STA Rx#:[id number] Oral 300 Other: # Voids 2 - Exam Physical Examination: PHYSICAL EXAMINATION: Patient is resting comfortably in bed. VITAL SIGNS: Blood pressure is [126/83]. Heart rate is [64]. Respiration is [16] . Temperature is [97.5]. HEENT: Head is atraumatic, neck is supple, there were no carotid bruits. CHEST: Lungs are clear to auscultation and percussion. CARDIAC: S1, S2 normal rate and rhythm. There is no murmur. ABDOMEN: Soft and nontender. Bowel sounds are present. EXTREMITIES: There is no pedal edema. Peripheral pulses are present. Neurological examination: Patient's neurological examination is unchanged from yesterday. - Labs CBC & Chem 7: 04/02/18 14:11 04/02/18 14:11 Labs: Abnormal Lab Results - Last 24 Hours (Table) 04/02/18 04/02/18 04/02/18 Range/Units 14:11 14:11 20:22 Hct 48.3 H (34.0-46.0) % MCHC 30.1 L (31.0-37.0) g/dL RDW 15.6 H (11.5-15.5) % Carbon Dioxide 32 H (22-30) mmol/L BUN 6 L (7-17) mg/dL Creatinine 0.50 L (0.52-1.04) mg/dL POC Glucose (mg/dL) 120 H (75-99) mg/dL AST 57 H (14-36) U/L 04/03/18 04/03/18 Range/Units 07:14 11:30 Hct (34.0-46.0) % MCHC (31.0-37.0) g/dL RDW (11.5-15.5) % Carbon Dioxide (22-30) mmol/L BUN (7-17) mg/dL Creatinine (0.52-1.04) mg/dL POC Glucose (mg/dL) 139 H 159 H (75-99) mg/dL AST (14-36) U/L Assessment and Plan (1) Multiple sclerosis exacerbation Current Visit: Yes Status: Acute Code(s): G35 - MULTIPLE SCLEROSIS SNOMED Code(s): 010304177 (2) COPD with exacerbation Current Visit: No Status: Acute Code(s): J44.1 - CHRONIC OBSTRUCTIVE PULMONARY DISEASE W (ACUTE) EXACERBATION SNOMED Code(s): 290734463816419 (3) Fibromyalgia Current Visit: No Status: Acute Code(s): M79.7 - FIBROMYALGIA SNOMED Code( s): 405488925 (4) Headache Current Visit: No Status: Acute Code(s): R51 - HEADACHE SNOMED Code(s): 16714493 Plan: This patient is a 52-year-old right-handed -Nigerian female admitted to [facility] for acute MS exacerbation. She has a known history of relapsing remitting form of multiple sclerosis which was diagnosed about 7 years ago. She is currently on oral treatment for her MS and is been taking Tecfidera for the past 1 year. Patient developed sudden weakness over the last few days and was advised admission to the hospital for acute MS exacerbation. She was treated for a similar episode just recently in January and discharge home after 3 days. We recommend patient to be started on IV Solu-Medrol therapy for treatment of acute MS exacerbation. We recommended dose of 250 mg of IV Solu-Medrol every [address] the patient on a proton pump inhibitor to protect her stomach. We will make consultation with physical therapy and speech therapy. The patient has history of memory difficulties secondary to her MS. She is being treated with Namenda as well for memory problems. The patient has been tolerating her IV Solu-Medrol therapy since admission yesterday. We're waiting further recommendations from physical therapy. Pulmonary medicine is also been consulted for her history of COPD exacerbation. We are recommending at least 3 days of IV Solu-Medrol therapy for this acute MS exacerbation for this patient. The patient has noted improvement even with one day of IV steroid therapy. We will await further recommendations from multiple specialists that her seeing her as well. Her overall prognosis at this time remains guarded. We will continue close neurological follow-up of this patient during this admission.
[2018-04-03] MEDS: SYMBICORT 160-4.5 MCG INHALER INHALATION SCH (20:29)
[2018-04-03] MEDS: MELATONIN 3 MG TABLET PO SCH (21:59)
[2018-04-03] MEDS: NICOTINE 14MG/24HR PATCH TRANSDERM SCH (21:59)
--- NOTE | 2018-04-03 22:57 | CONS ---
CONSULTATION Primary doctor is Dr. Kilo Tabares. This is a 52-year-old black female who presents to the emergency department on April 02 with generalized weakness and difficulty with her speech. She has a history of multiple sclerosis and believes she is having a flare up or an exacerbation of her MS. She sees Dr. Ramirez in Neurology on a regular basis and apparently saw him recently and was advised to come to the hospital to be evaluated. She was seen and placed on high-dose corticosteroids. She is receiving 250 mg of Solu-Medrol every 6 hours. The patient also complains of chest congestion and cough. Producing a small amount of yellow phlegm. No shortness of breath per se. No fever, no chills. No chest pain or chest discomfort. Not coughing up any blood. She does have a history of underlying COPD. She used to see Dr. Rushing, my partner, on a regular basis but has not seen him recently. This is primarily because her MS has really been giving her a difficult time. She has also seen our nurse practitioner in the past. She appears not to have seen Dr. Rushing or anybody on our team here in the hospital since March of last year. . HOME MEDICATIONS: Include albuterol inhaler, aspirin, vitamin D3, Ativan, multiple vitamins, Paxil, verapamil, gabapentin, ranitidine, Fioricet, Tecfidera, Namenda, Percocet, Colace, Robaxin, Zofran, melatonin, nystatin, and Requip. ALLERGIES: Denied. PAST MEDICAL HISTORY: Is positive for COPD/asthma, fibromyalgia, GERD, hypertension, MS, DJD, syncope, rheumatic fever, osteoporosis, vertigo, and uterine cancer. SURGICAL HISTORY: Includes among other things bladder surgery, heart catheterization, hysterectomy, and some other minor procedures. SOCIAL HISTORY: Positive for ongoing tobacco use. She has a history of not using any alcohol or illicit drugs. OCCUPATION HISTORY: Noncontributory. FAMILY HISTORY: Positive for CVA and myocardial infarction as well as brain aneurysm in her mother as well as cardiac arrest and myocardial infarction in her father. REVIEW OF SYSTEMS: CONSTITUTIONAL: Weakness and difficulty with her speech. NEUROLOGIC: As above. HEENT: Negative. CARDIOVASCULAR: Negative. PULMONARY: Chest congestion, cough, wheezing and phlegm production. GI/: Negative. RHEUMATOLOGIC/IMMUNOLOGIC: Negative. ENDOCRINOLOGIC: Negative. Current vital signs are reviewed. Her temperature is 97.4, heart rate 76, respiratory rate 16, blood pressure 147/82, mean 103 and 2 L saturation is 96%. Appears in no acute distress. HEENT examination is grossly unremarkable. Mucous membranes are moist. No oral lesions. Neck supple. Full range of motion. No adenopathy or thyromegaly. Neck veins are flat. Cardiovascular examination reveals regular rhythm rate. Heart rate 76. S1, S2 normal. No distinct murmur noted. No S3, S4. Lungs reveal a few scattered rhonchi. No wheezes. No crackles. Breath sounds equal bilaterally. Abdomen is obese. Bowel sounds are heard. Extremities are intact. No cyanosis, clubbing, or edema. Skin without rash. Neurologic examination is brief but nonfocal. Mostly what I notice about her neurologic examination is her impaired speech. She has had difficulty getting words out. It is sort of like an expressive aphasia. She does move all 4 extremities well. Chest x-ray shows pretty much a normal chest x-ray. Some borderline cardiomegaly. LABORATORY DATA: Reviewed. Her white count 7.1, hemoglobin 14.6, hematocrit 48.3, platelet count normal. PT/INR and PTT all normal. Her sodium, potassium and chloride are normal. CO2 is 32. BUN and creatinine were 6 and 0.5. AST 57. UA negative. TSH normal. Troponin was negative. Chest x-ray is evaluated. Medications are reviewed. We placed her on Symbicort 160/4.5 two puffs twice a day. We also gave her doxycycline 100 mg p.o. twice a day and DuoNeb t.i.d. and p.r.n. In addition, she is already on Solu-Medrol at high doses at 250 mg q.6 hours. She is also getting a nicotine patch. The rest of her medications are appropriate. ASSESSMENT: 1. Acute exacerbation of the patient's multiple sclerosis, currently on high-dose corticosteroids. 2. Mild COPD exacerbation, likely complicated by very mild purulent tracheobronchitis. 3. Ongoing tobacco use, nicotine addiction. 4. History of fibromyalgia. 5. History of gastroesophageal reflux disease. 6. History of hypertension. 7. History of osteoarthritis. 8. History of syncope. 9. History of rheumatic fever. 10.Osteoporosis by history. 11.History of uterine cancer. PLAN: The patient's medications were addressed. She is on short-acting beta agonists, short- acting ( ) antagonist, long-acting beta agonist and inhaled corticosteroids. She is already on high-dose systemic corticosteroids for her acute exacerbation of MS. I will put her on doxycycline 100 mg twice a day. The patient otherwise is doing reasonably well. Her COPD exacerbation is relatively mild. She does have a nicotine patch in place. We do alcohol and drug counselor her about the importance of smoking cessation. She does tell us that she will follow up with Dr. Rushing in the near future. No additional recommendations are made. From the pulmonary standpoint, she is doing relatively well. MMODL / IJN: [id number] /
[2018-04-04] MEDS: methylPREDNISolone SOD SUCCI 250 MG in SODIUM CHLORIDE 0.9% 100 ML IVPB SCH ×4 (00:57→21:03)
[2018-04-04] MEDS: HEPARIN SODIUM,PORCINE 5,000 UNIT/ML 1 ML VIAL SQ SCH ×4 (00:58→23:14)
[2018-04-04] MEDS: METHOCARBAMOL 750 MG TAB PO SCH ×3 (06:01→19:17)
[2018-04-04 07:00] LABS: Glucose,Whole Blood 135 mg/dL (75-99)
[2018-04-04] MEDS: oxyCODONE-APAP 10-325MG 1 EACH TAB PO PRN ×3 (07:31→23:51)
[2018-04-04] MEDS: PARoxetine 20 MG TAB PO SCH (08:00)
[2018-04-04] MEDS: GABAPENTIN 400 MG CAP PO SCH ×3 (08:04→23:13)
[2018-04-04] MEDS: CHOLECALCIFEROL 1,000 UNIT TAB PO SCH (08:05)
[2018-04-04] MEDS: ASPIRIN 81 MG PO SCH (08:05)
[2018-04-04] MEDS: FAMOTIDINE 20 MG TAB PO SCH (08:06)
[2018-04-04] MEDS: INSULIN ASPART 100 UNIT/ML 1 ML 10 ML VIAL SQ SCH ×4 (08:13→23:13)
[2018-04-04] MEDS: DOXYCYCLINE 100 MG CAP PO SCH ×2 (08:13→23:13)
[2018-04-04] MEDS: HYDROCHLOROTHIAZIDE 25 MG TAB PO SCH (08:13)
[2018-04-04] MEDS: NYSTATIN 100,000 UNIT/ML SUSP 500,000 UNIT/5 ML CUP PO SCH ×4 (08:13→23:14)
[2018-04-04] MEDS: IPRATROPIUM-ALBUTEROL 3 ML NEB INHALATION SCH ×3 (08:19→20:49)
[2018-04-04] MEDS: SYMBICORT 160-4.5 MCG INHALER INHALATION SCH ×2 (08:19→20:49)
[2018-04-04] MEDS: LORazepam 1 MG TAB PO PRN ×2 (09:48→18:00)
[2018-04-04] MEDS: PANTOPRAZOLE 40 MG/10 ML VIAL IVP SCH ×2 (09:48→23:14)
[2018-04-04] MEDS: VERAPAMIL SR 120 MG TABLET.ER PO SCH (09:48)
--- NOTE | 2018-04-04 10:34 | P.PN ---
Subjective Progress Note Date: 04/04/18 This is a 52-year-old -[place] female patient of Dr. Tabares with past medical history of asthma, uterine cancer status post hysterectomy and radiation , fibromyalgia, COPD, chronic hypoxic respiratory failure on home O2, gastroesophageal reflux disease, hypertension, osteoarthritis and osteoporosis, MS currently on Tecfidera, after she was on Copaxone for quite sometime, she has been under the care of from neurology Dr. Ramirez, is also treated for chronic pain and undergoes frequent injections and including occipital nerve block. Patient states that she had bilateral Dr. Ramirez yesterday and normally sees him every 1-2 weeks. She was instructed to go to the hospital and EMS was called to transport her to [facility]. Patient states that she has had trouble with falling, slurred speech and lack of memory as well as pain control. She also states that her pulse ox was low in the office. Her last MS exacerbation was in January of this year at which time she was also treated for elevated troponins without MN. Patient states that she normally walks with a cane or walker at her baseline and Dr. Ramirez has informed her that she may need to get a wheelchair soon. She is currently living in a two-story home with a basement and is looking for a single level home. Regarding smoking, she quit 4 approximate 3 months only the share. She continues to smoke less than a pack per day. Patient came into [facility] emergency center for evaluation. Vital signs were stable, white count was normal, hemoglobin 14.6, BUN 6 and creatinine 0.50. blood glucose 90. Urinalysis was negative. Troponin was negative. AST 57 otherwise renal function and liver function tests were within normal limits. TSH 1.060. EKG was in normal sinus rhythm with no ST changes. Chest x-ray showed cardiomegaly with acute pulmonary process. Patient was admitted to the MedSurg floor and consult with Dr. Alon guevara. He has started the patient on Solu-Medrol 250 mg IV piggyback every 6 hours for MS exacerbation and COPD exacerbation. Consult with Dr. Javier added. Patient normally follows with Dr. Rushing. 04/04: Patient has been seen by Dr. Javier and started on doxycycline, Symbicort and DuoNeb treatments scheduled and as needed. Patient's breathing status today is very stable. She has been afebrile and vital signs are stable, pulse ox 92% on 2 L. Patient states that she is not feeling well this morning but not any worsening of her MS. She is concerned that she has been off Tecfidera as was advised while she is on Solu-Medrol and is concerned that this may be the reason she is not feeling as well today. She is complaining of starting last night of musculoskeletal spasm in her right chest. Dr. Chi is recommending course of Solu-Medrol depending on her response. Current plan is for a course of 3 days total and his artery had improvement from one day of Solu -Medrol. Review of Systems Constitutional: Reports chronic pain, Reports fatigue, Reports weakness, Denies chills, Denies fever, Denies poor appetite Eyes: bilateral photophobia, denies blurred vision, denies pain Ears, nose, mouth and throat: Denies dental pain, Denies dysphagia, Denies headache, Denies sore throat, Denies vertigo Cardiovascular: Reports decreased exercise tolerance, Reports dyspnea on exertion, complains of right chest pain, Denies edema, Denies leg edema, Denies lightheadedness, Denies shortness of breath, Denies syncope Respiratory: Reports cough, Reports dyspnea, Reports home oxygen, Reports wheezing, Denies excessive sputum, Denies hemoptysis Gastrointestinal: Denies abdominal pain, Denies diarrhea, Denies loss of appetite, Denies melena, Denies nausea, Denies vomiting Genitourinary: Denies dysuria, Denies hematuria Musculoskeletal: Reports gait dysfunction, Reports muscle weakness, Reports neck pain, Denies myalgias Integumentary: Denies pruritus, Denies rash, Denies wounds Neurological: Reports gait dysfunction, Reports memory loss, Reports visual changes, Denies change in mentation, Denies confusion, Denies convulsions, Denies head injury, Denies numbness, Denies vertigo, Denies weakness Psychiatric: Denies anxiety, Denies depression Endocrine: Denies fatigue, Denies weight change Objective - Vital Signs Vital signs: Vital Signs Temp 98.3 F 04/04/18 01:07 Pulse 67 04/04/18 01:07 Resp 16 04/04/18 01:07 BP 114/71 04/04/18 01:07 Pulse Ox 92 L 04/04/18 01:07 Intake & Output 04/03/18 04/04/18 04/04/18 18:59 06:59 18:59 Intake Total 240 Balance 240 Intake: Oral 240 Other: # Voids 2 1 - Exam General appearance: cooperative, no acute distress, morbidly obese, patient noticed to be stuttering-improving - EENT Eyes: anicteric sclerae, EOMI, PERRLA, dentition normal, normal appearance ENT: hearing grossly normal, NA/AT, normal oropharynx - Neck occipital nerualgia , left, psotive tenderness, neg brudzinski, neg kernig Neck: normal ROM Thyroid: bilateral: normal size, negative: enlarged, firm, nodule - Respiratory Respiratory: bilateral: CTA, negative: diminished, dullness, rales, rhonchi - Cardiovascular Rhythm: regular Heart sounds: normal: S1, S2 Abnormal Heart Sounds: no systolic murmur, no diastolic murmur, no rub, no S3 Gallop, no S4 Gallop, no click, no other - Gastrointestinal General gastrointestinal: no absent bowel sounds, no decreased bowel sounds, no distended, no hepatomegaly, no hyperactive bowel sounds, normal bowel sounds, no organomegaly, no rigid, no scaphoid, soft, no splenomegaly, no tenderness, no umbilical hernia, no ventral hernia - Integumentary Integumentary: no calor, no cellulitis, no cyanotic, decreased turgor, no flushed, no jaundiced, normal, no normal turgor, no pale, no rash, no ulcer - Neurologic hypersomnia while being interviewed but easily awakens with voice Neurologic: CNII-XII intact - Musculoskeletal Musculoskeletal: generalized weakness, strength equal bilaterally - Psychiatric Psychiatric: A&O x's 3, appropriate affect, intact judgment & insight - Labs CBC & Chem 7: 04/02/18 14:11 04/02/18 14:11 Labs: Abnormal Lab Results - Last 24 Hours (Table) 04/02/18 04/03/18 04/03/18 Range/Units 14:11 11:30 17:01 POC Glucose (mg/dL) 159 H 175 H (75-99) mg/dL Hemoglobin A1c 6.4 H (4.0-6.0) % 04/03/18 04/04/18 Range/Units 19:41 06:58 POC Glucose (mg/dL) 148 H 135 H (75-99) mg/dL Hemoglobin A1c (4.0-6.0) % Microbiology - Last 24 Hours (Table) 04/02/18 14:11 Blood Culture - Preliminary Blood No Growth after 24 hours Assessment and Plan Plan: 1. Acute exacerbation of relapsing remitting multiple sclerosis. Patient follows with Dr. Ramirez and is normally on Tecfidera 240 mg orally twice every day. Consult with Dr. Alon infante. Patient started on Solu-Medrol 250 mg every 6 hours. Patient is to complete 3 days. 2. Acute exacerbation of COPD. Continue albuterol every 6 hours as needed, Solu-Medrol, consult with Dr. Javier. 3. Chronic pain and occipital neuralgia under the care of Dr. Ramirez. Continue gabapentin 1200 mg 3 times daily, Robaxin 750 mg every 8 hours, Percocet one 3 times daily to Memorop box and put her milligrams 2 times daily. 4. Hypertension and hypertensive cardiovascular disease. Continue verapamil 120 mg orally once every day, Hydrea Diuril 25 mg daily. 5. Obesity with possible obstructive sleep apnea and obesity hypoventilation syndrome. Recommend outpatient sleep study 6. Mild intermittent Asthma and COPD. Continue nebulized treatment 4 times every day. Support with oxygen as needed. Consult with Dr. Javier. 7. Fibromyalgia. Continue gabapentin 1200 mg orally 3 times every day, continue Robaxin 500 mg orally 4 times every day. 8. ALLERGIC rhinitis, stable. 9. Recurrent depression. Continue paroxetine 40 mg orally once every day. 10. Chronic tobacco use and dependence. Smoking cessation and counseling an increased risk of CAD, CVA, and malignancy. Continue nicotine patch 14 mg once every day. 11. DVT prophylaxis. Heparin 5000 units subcutaneously every 8 hours, bilateral knee-high MAYUR hose. 12. GI prophylaxis. Continue patient on pepcid 20 mg orally bid. 13. Memory loss, related to ms along with sleep disruption. Continue Namenda. 14. Restless leg syndrome. Continue Requip 0.25 mg 2 times daily Discharge plan: Most likely home Impression and plan of care have been directed as dictated by the signing physician. Elaine Nguyen nurse practitioner acting as scribe for signing physician.
[2018-04-04] MEDS: BUTALB/APAP/CAFF 50-325-40MG TAB PO PRN (11:54)
[2018-04-04 11:57] LABS: Glucose,Whole Blood 139 mg/dL (75-99)
[2018-04-04] MEDS: MULTIVITAMINS, THERA 1 EACH TAB PO SCH (13:21)
--- NOTE | 2018-04-04 13:30 | PN ---
PROGRESS NOTE This is a 52-year-old black female who I saw yesterday in consultation. She was admitted primarily for a exacerbation of her underlying multiple sclerosis. In addition, she likely had a very mild flare-up of her chronic lung disease. She probably had a mild purulent tracheobronchitis. From the MS standpoint and from a COPD standpoint, she is doing much better. In fact, the steroids that she is getting is really helping her COPD. She is getting high-dose Solu-Medrol 250 mg q.6 hours for her multiple sclerosis flare up. In addition to COPD and MS, she has a history of ongoing tobacco use with nicotine addiction, fibromyalgia, GERD, hypertension, osteoarthritis, syncope, rheumatic fever, osteoporosis, and uterine cancer. She feels much less short of breath. She is still coughing a bit. Still has some mild wheezing. She does bring up a small amount of phlegm when she coughs as she was yesterday. All in all though, she is feeling better from both standpoints. PHYSICAL EXAMINATION: Her current vital signs are reviewed. Her temperature is 98.1, heart rate 65, respiratory 16, blood pressure 126/82, and her mean arterial pressure is 96 with a 2 L saturation of 92-94 percent. Appears in no acute distress. Actually was initially sleeping when I went into the room. She is lying flat. There is no audible wheezing or any use of accessory muscles. HEENT examination is grossly unremarkable. Nasal O2 in place. NECK: Supple. Full range of motion. No adenopathy, thyromegaly or neck vein distention. Cardiovascular examination reveals regular rhythm and rate. Heart rate about 70 beats per minute. S1, S2 normal. There is no murmur. LUNGS: Reveal a few scattered mild rhonchi. Some very mild high-pitched expiratory wheezes are also noted. Lung sounds are improved. Breath sounds are equal bilaterally. No crackles are appreciated. Abdomen is obese. Bowel sounds are heard. Extremities are intact. No cyanosis, clubbing, or edema. Skin without rash. Neurologic examination is nonfocal. Laboratory data reviewed. Nothing new to report. Her sugar is actually only 139. Microbiologic reports are negative. Blood cultures are negative. She had a chest x- ray on 04/02, which showed only cardiomegaly. MEDICATIONS ARE: Reviewed. From a pulmonary standpoint, she is on Symbicort, Duonebs, and a high dose Solu-Medrol. In addition, she is on doxycycline 100 mg p.o. b.i.d. ASSESSMENT: 1. Acute exacerbation of the patient's underlying multiple sclerosis, currently on high-dose corticosteroids. 2. Mild to moderate chronic obstructive pulmonary disease exacerbation, complicated by a very mild purulent tracheobronchitis. 3. Ongoing tobacco use with nicotine addiction. 4. History of fibromyalgia. 5. Gastroesophageal reflux disease. 6. Hypertension. 7. Osteoarthritis. 8. Syncope. 9. Rheumatic fever by history. 10.Osteoporosis. 11.History of uterine cancer. PLAN: The patient is doing well. She remains on Symbicort 160/4.5, 2 puffs twice a day and DuoNeb 3-4 times a day and p.r.n. In addition, the patient is on high dose corticosteroids for her MS, which is certainly helping her COPD exacerbation. She remains on doxycycline 100 mg twice a day. Additional recommendations and suggestions are forthcoming. Prognosis is guarded. The patient will continue to be followed. She used to see my partner, Dr. Rushing in the clinic, but has not been back for some time. She promises me that she will get back in to see him in the near future. We will continue to follow. MMODL / IJN: [id number] /
[2018-04-04 16:57] LABS: Glucose,Whole Blood 149 mg/dL (75-99)
[2018-04-04] MEDS: MEMANTINE 10 MG TAB PO SCH (18:01)
--- NOTE | 2018-04-04 19:23 | P.PN ---
Subjective Progress Note Date: 04/04/18 This patient is a 52 year old -Turkish female admtted yesterday for an acute MS exacerbation. She is being treated with IV Solumedrol for treatment of the acute MS exacerbation. The patient has multiple complex medical problems in the past including history of uterine cancer and is status post hysterectomy and radiation therapy. She is also being treated for fibromyalgia and osteoporosis. She also suffers from chronic pain which her primary neurologist treats her with injections. More recently she has been expressing increasing weakness and multiple falls at home associated with memory difficulties. As noted yesterday her last MS exacerbation was fairly recently for which she was admitted in January of this year. She is currently living in the two-story home and is looking to move into a single level home for ease of ambulation. She is been started on IV Solu-Medrol 250 mg IV piggyback every 6 hours for the next 3 days. Depending on her response. Her adjustments will be made as needed. She does have history of underlying COPD and is currently being treated with albuterol every 6 hours as needed. Pulmonary has been consulted as well. The patient continues to show improvement with her MS symptoms today. Her speech is much improved. She would like to start back on her oral dose of Tecfidera 240 mg by mouth twice a day. We recommend patient may restart with her home prescription starting tomorrow morning. She is taking it twice a day. Patient is making good progress with her IV Solu- Medrol. Anticipate she may be considered for discharge home in the next 24-48 hours. We will continue close neurological follow-up with the patient during this admission. Objective - Vital Signs Vital signs: Vital Signs Temp 98.3 F 04/04/18 01:07 Pulse 65 04/04/18 08:29 Resp 16 04/04/18 08:19 BP 114/71 04/04/18 01:07 Pulse Ox 92 L 04/04/18 01:07 Intake & Output 04/03/18 04/04/18 04/04/18 18:59 06:59 18:59 Intake Total 240 Balance 240 Intake: Oral 240 Other: # Voids 2 1 - Exam Physical Examination: PHYSICAL EXAMINATION: Patient is resting comfortably in bed. VITAL SIGNS: Blood pressure is [126/78]. Heart rate is [71]. Respiration is [16] . Temperature is [97.5]. HEENT: Head is atraumatic, neck is supple, there were no carotid bruits. CHEST: Lungs are clear to auscultation and percussion. CARDIAC: S1, S2 normal rate and rhythm. There is no murmur. ABDOMEN: Soft and nontender. Bowel sounds are present. EXTREMITIES: There is no pedal edema. Peripheral pulses are present. Neurological examination: Patient's neurological examination is unchanged from yesterday. The patient's speech is much improved today. She was able to work with physical therapy today and ambulated with her walker - Labs CBC & Chem 7: 04/02/18 14:11 04/02/18 14:11 Labs: Abnormal Lab Results - Last 24 Hours (Table) 04/02/18 04/03/18 04/03/18 Range/Units 14:11 11: 17:01 POC Glucose (mg/dL) 159 H 175 H (75-99) mg/dL Hemoglobin A1c 6.4 H (4.0-6.0) % 04/03/18 04/04/18 Range/Units 19:41 06:58 POC Glucose (mg/dL) 148 H 135 H (75-99) mg/dL Hemoglobin A1c (4.0-6.0) % Microbiology - Last 24 Hours (Table) 04/02/18 14:11 Blood Culture - Preliminary Blood No Growth after 24 hours Assessment and Plan (1) Multiple sclerosis exacerbation Current Visit: Yes Status: Acute Code(s): G35 - MULTIPLE SCLEROSIS SNOMED Code(s): 269572128 (2) COPD with exacerbation Current Visit: No Status: Acute Code(s): J44.1 - CHRONIC OBSTRUCTIVE PULMONARY DISEASE W (ACUTE) EXACERBATION SNOMED Code(s): 267772506099491 (3) Fibromyalgia Current Visit: No Status: Acute Code(s): M79.7 - FIBROMYALGIA SNOMED Code( s): 115810049 (4) Headache Current Visit: No Status: Acute Code(s): R51 - HEADACHE SNOMED Code(s): 81275981 Plan: This patient is a 52-year-old right-handed -Turkish female admitted to [facility] for acute MS exacerbation. She has a known history of relapsing remitting form of multiple sclerosis which was diagnosed about 7 years ago. She is currently on oral treatment for her MS and is been taking Tecfidera for the past 1 year. Patient developed sudden weakness over the last few days and was advised admission to the hospital for acute MS exacerbation. She was treated for a similar episode just recently in January and discharge home after 3 days. We recommend patient to be started on IV Solu-Medrol therapy for treatment of acute MS exacerbation. We recommended dose of 250 mg of IV Solu-Medrol every [address] the patient on a proton pump inhibitor to protect her stomach. We will make consultation with physical therapy and speech therapy. The patient has history of memory difficulties secondary to her MS. She is being treated with Namenda as well for memory problems. The patient has been tolerating her IV Solu-Medrol therapy since admission yesterday. We're waiting further recommendations from physical therapy. Pulmonary medicine is also been consulted for her history of COPD exacerbation. We are recommending at least 3 days of IV Solu-Medrol therapy for this acute MS exacerbation for this patient. The patient has noted improvement even with one day of IV steroid therapy. We will await further recommendations from multiple specialists that her seeing her as well. The patient is showing improvement with her speech today. She would like to restart her oral dose of Tecfidera which she has been taking in the outpatient setting. This can be restarted for her tomorrow morning. She was able to work with physical therapy today and ambulated in the room and may consider ambulating in the hallway tomorrow with PT. Anticipate the patient may be ready for discharge in the next 24-48 hours. Her overall prognosis at this time remains guarded. We will continue close neurological follow-up of this patient during this admission.
[2018-04-04 19:57] LABS: Glucose,Whole Blood 181 mg/dL (75-99)
[2018-04-04] MEDS: MELATONIN 3 MG TABLET PO SCH (23:13)
[2018-04-04] MEDS: NICOTINE 14MG/24HR PATCH TRANSDERM SCH (23:52)
[2018-04-05] MEDS: BUTALB/APAP/CAFF 50-325-40MG TAB PO PRN ×3 (01:06→16:04)
[2018-04-05] MEDS: methylPREDNISolone SOD SUCCI 250 MG in SODIUM CHLORIDE 0.9% 100 ML IVPB SCH ×5 (01:06→23:57)
[2018-04-05] MEDS: METHOCARBAMOL 750 MG TAB PO SCH ×4 (05:07→21:32)
[2018-04-05] MEDS: LORazepam 1 MG TAB PO PRN ×3 (05:16→21:37)
[2018-04-05 06:52] LABS: Glucose,Whole Blood 158 mg/dL (75-99)
[2018-04-05] MEDS: HEPARIN SODIUM,PORCINE 5,000 UNIT/ML 1 ML VIAL SQ SCH ×3 (07:20→23:57)
[2018-04-05] MEDS: INSULIN ASPART 100 UNIT/ML 1 ML 10 ML VIAL SQ SCH ×4 (07:20→21:21)
[2018-04-05] MEDS: oxyCODONE-APAP 10-325MG 1 EACH TAB PO PRN ×3 (07:21→23:58)
[2018-04-05] MEDS: IPRATROPIUM-ALBUTEROL 3 ML NEB INHALATION SCH ×3 (07:23→19:46)
[2018-04-05] MEDS: SYMBICORT 160-4.5 MCG INHALER INHALATION SCH ×2 (07:23→19:47)
[2018-04-05] MEDS: ASPIRIN 81 MG PO SCH (08:54)
[2018-04-05] MEDS: MULTIVITAMINS, THERA 1 EACH TAB PO SCH (08:54)
[2018-04-05] MEDS: PANTOPRAZOLE 40 MG/10 ML VIAL IVP SCH (08:54)
[2018-04-05] MEDS: CHOLECALCIFEROL 1,000 UNIT TAB PO SCH (08:54)
[2018-04-05] MEDS: VERAPAMIL SR 120 MG TABLET.ER PO SCH (08:54)
[2018-04-05] MEDS: PARoxetine 20 MG TAB PO SCH (08:55)
[2018-04-05] MEDS: GABAPENTIN 400 MG CAP PO SCH ×3 (08:55→21:20)
[2018-04-05] MEDS: HYDROCHLOROTHIAZIDE 25 MG TAB PO SCH (08:55)
[2018-04-05] MEDS: DOXYCYCLINE 100 MG CAP PO SCH ×2 (08:56→21:20)
[2018-04-05 09:12] LABS: Basophils % (A) 0 %; Eosinophils % (A) 0 %; HCT 47.1 % (34.0-46.0); HGB 14.3 gm/dL (11.4-16.0); Hypochromasia Slight; Lymphocytes % (A) 7 %; MCH 29.5 pg (25.0-35.0); MCHC 30.4 g/dL (31.0-37.0); MCV 96.9 fL (80.0-100.0); Monocytes # (A) 0.2 k/uL (0-1.0); Monocytes % (A) 2 %; Neutrophils # (A) 12.9 k/uL (1.3-7.7); Neutrophils % (A) 91 %; Platelet Count 246 k/uL (150-450); RBC 4.86 m/uL (3.80-5.40); RDW 15.4 % (11.5-15.5); WBC 14.1 k/uL (3.8-10.6)
[2018-04-05 09:20] LABS: ALT 36 U/L (9-52); AST 18 U/L (14-36); Albumin 3.8 g/dL (3.5-5.0); Alkaline Phosphatase 65 U/L (38-126); Anion Gap 8 mmol/L; Blood Urea Nitrogen 15 mg/dL (7-17); Calcium 9.4 mg/dL (8.4-10.2); Carbon Dioxide 34 mmol/L (22-30); Chloride 100 mmol/L (98-107); Glucose 233 mg/dL (74-99); Potassium 3.9 mmol/L (3.5-5.1); Sodium 142 mmol/L (137-145); Total Bilirubin 0.4 mg/dL (0.2-1.3)
[2018-04-05] MEDS: NYSTATIN 100,000 UNIT/ML SUSP 500,000 UNIT/5 ML CUP PO SCH ×4 (09:38→21:19)
[2018-04-05] MEDS: DOCUSATE 100 MG CAP PO SCH ×2 (09:38→21:20)
[2018-04-05 11:44] LABS: Glucose,Whole Blood 135 mg/dL (75-99)
[2018-04-05] MEDS ORDERED: METHOCARBAMOL 750 MG TAB PO SCH ×2 (12:00→20:00)
--- NOTE | 2018-04-05 12:21 | P.PN ---
Subjective Progress Note Date: 04/05/18 This is a 52-year-old -[place] female patient of Dr. Tabares with past medical history of asthma, uterine cancer status post hysterectomy and radiation , fibromyalgia, COPD, chronic hypoxic respiratory failure on home O2, gastroesophageal reflux disease, hypertension, osteoarthritis and osteoporosis, MS currently on Tecfidera, after she was on Copaxone for quite sometime, she has been under the care of from neurology Dr. Ramirez, is also treated for chronic pain and undergoes frequent injections and including occipital nerve block. Patient states that she had bilateral Dr. Ramirez yesterday and normally sees him every 1-2 weeks. She was instructed to go to the hospital and EMS was called to transport her to [facility]. Patient states that she has had trouble with falling, slurred speech and lack of memory as well as pain control. She also states that her pulse ox was low in the office. Her last MS exacerbation was in January of this year at which time she was also treated for elevated troponins without NH. Patient states that she normally walks with a cane or walker at her baseline and Dr. Ramirez has informed her that she may need to get a wheelchair soon. She is currently living in a two-story home with a basement and is looking for a single level home. Regarding smoking, she quit 4 approximate 3 months only the share. She continues to smoke less than a pack per day. Patient came into [facility] emergency center for evaluation. Vital signs were stable, white count was normal, hemoglobin 14.6, BUN 6 and creatinine 0.50. blood glucose 90. Urinalysis was negative. Troponin was negative. AST 57 otherwise renal function and liver function tests were within normal limits. TSH 1.060. EKG was in normal sinus rhythm with no ST changes. Chest x-ray showed cardiomegaly with acute pulmonary process. Patient was admitted to the MedSurg floor and consult with Dr. Alon guevara. He has started the patient on Solu-Medrol 250 mg IV piggyback every 6 hours for MS exacerbation and COPD exacerbation. Consult with Dr. Javier added. Patient normally follows with Dr. Rushing. 04/04: Patient has been seen by Dr. Javier and started on doxycycline, Symbicort and DuoNeb treatments scheduled and as needed. Patient's breathing status today is very stable. She has been afebrile and vital signs are stable, pulse ox 92% on 2 L. Patient states that she is not feeling well this morning but not any worsening of her MS. She is concerned that she has been off Tecfidera as was advised while she is on Solu-Medrol and is concerned that this may be the reason she is not feeling as well today. She is complaining of starting last night of musculoskeletal spasm in her right chest. Dr. Chi is recommending course of Solu-Medrol depending on her response. Current plan is for a course of 3 days total and his artery had improvement from one day of Solu -Medrol. 04/05: Patient is found ambulating in her room and seems to be improving strength. Dr. Chi has cleared her to resume Tecfidra which will be order to start this morning. Her speech is much improved since admission. She does complain of muscle spasms in her chest. We will plan for monitoring overnight, complete steroid infusions and discharge home tomorrow. Case management to make arrangements for wheelchair due to worsening of her overall MS requiring wheelchair to perform her ADLs. Review of Systems Constitutional: Reports chronic pain, Reports fatigue, Reports weakness, Denies chills, Denies fever, Denies poor appetite Eyes: bilateral photophobia, denies blurred vision, denies pain Ears, nose, mouth and throat: Denies dental pain, Denies dysphagia, Denies headache, Denies sore throat, Denies vertigo Cardiovascular: Reports decreased exercise tolerance, Reports dyspnea on exertion, complains of right chest pain, Denies edema, Denies leg edema, Denies lightheadedness, Denies shortness of breath, Denies syncope Respiratory: Reports cough, Reports dyspnea, Reports home oxygen, Reports wheezing, Denies excessive sputum, Denies hemoptysis Gastrointestinal: Denies abdominal pain, Denies diarrhea, Denies loss of appetite, Denies melena, Denies nausea, Denies vomiting Genitourinary: Denies dysuria, Denies hematuria Musculoskeletal: Reports gait dysfunction, Reports muscle weakness, Reports neck pain, Denies myalgias Integumentary: Denies pruritus, Denies rash, Denies wounds Neurological: Reports gait dysfunction, Reports memory loss, Reports visual changes, Denies change in mentation, Denies confusion Psychiatric: Denies anxiety, Denies depression Endocrine: Denies fatigue, Denies weight change Objective - Vital Signs Vital signs: Vital Signs Temp 97.9 F 04/05/18 07:27 Pulse 70 04/05/18 07:33 Resp 16 04/05/18 07:27 BP 136/83 04/05/18 07:27 Pulse Ox 97 04/05/18 07:27 Intake & Output 04/04/18 04/05/18 04/05/18 18:59 06:59 18:59 Intake Total 500 Balance 500 Weight 104.326 kg Intake: Oral 500 Other: # Voids 3 - Exam General appearance: cooperative, no acute distress, morbidly obese, speech is clear - EENT Eyes: anicteric sclerae, EOMI, PERRLA, dentition normal, normal appearance ENT: hearing grossly normal, NA/AT, normal oropharynx - Neck occipital nerualgia , left, psotive tenderness, neg brudzinski, neg kernig Neck: normal ROM Thyroid: bilateral: normal size, negative: enlarged, firm, nodule - Respiratory Respiratory: bilateral: CTA, negative: diminished, dullness, rales, rhonchi - Cardiovascular Rhythm: regular Heart sounds: normal: S1, S2 Abnormal Heart Sounds: no systolic murmur, no diastolic murmur, no rub, no S3 Gallop, no S4 Gallop, no click, no other - Gastrointestinal General gastrointestinal: no absent bowel sounds, no decreased bowel sounds, no distended, no hepatomegaly, no hyperactive bowel sounds, normal bowel sounds, no organomegaly, no rigid, no scaphoid, soft, no splenomegaly, no tenderness, no umbilical hernia, no ventral hernia - Integumentary Integumentary: no calor, no cellulitis, no cyanotic, decreased turgor, no flushed, no jaundiced, normal, no normal turgor, no pale, no rash, no ulcer - Neurologic Neurologic: CNII-XII intact - Musculoskeletal Musculoskeletal: generalized weakness, strength equal bilaterally - Psychiatric Psychiatric: A&O x's 3, appropriate affect, intact judgment & insight - Labs CBC & Chem 7: 04/05/18 08:50 04/05/18 08:50 Labs: Abnormal Lab Results - Last 24 Hours (Table) 04/04/18 04/04/18 04/04/18 Range/Units 11:55 16:48 19:55 WBC (3.8-10.6) k/uL Hct (34.0-46.0) % MCHC (31.0-37.0) g/dL Neutrophils # (1.3-7.7) k/uL Carbon Dioxide (22-30) mmol/L Glucose (74-99) mg/dL POC Glucose (mg/dL) 139 H 149 H 181 H (75-99) mg/dL Total Protein (6.3-8.2) g/dL 04/05/18 04/05/18 04/05/18 Range/Units 06:51 08:50 08:50 WBC 14.1 H (3.8-10.6) k/uL Hct 47.1 H (34.0-46.0) % MCHC 30.4 L (31.0-37.0) g/dL Neutrophils # 12.9 H (1.3-7.7) k/uL Carbon Dioxide 34 H (22-30) mmol/L Glucose 233 H (74-99) mg/dL POC Glucose (mg/dL) 158 H (75-99) mg/dL Total Protein 6.0 L (6.3-8.2) g/dL Microbiology - Last 24 Hours (Table) 04/02/18 14:11 Blood Culture - Preliminary Blood No Growth after 48 hours Assessment and Plan Plan: 1. Acute exacerbation of relapsing remitting multiple sclerosis. Patient follows with Dr. Ramirez and is normally on Tecfidera 240 mg orally twice every day. Consult with Dr. Alon infante. Patient started on Solu-Medrol 250 mg every 6 hours. Patient is to complete 3 days. We'll tell will be ordered as patient needs in order to perform her ADLs. 2. Acute exacerbation of COPD. Continue albuterol every 6 hours as needed, Solu-Medrol, consult with Dr. Javier. 3. Chronic pain and occipital neuralgia under the care of Dr. Ramirez. Continue gabapentin 1200 mg 3 times daily, Robaxin 750 mg every 8 hours, Percocet one 3 times daily to [employer] box and put her milligrams 2 times daily. 4. Hypertension and hypertensive cardiovascular disease. Continue verapamil 120 mg orally once every day, Hydrea Diuril 25 mg daily. 5. Obesity with possible obstructive sleep apnea and obesity hypoventilation syndrome. Recommend outpatient sleep study 6. Mild intermittent Asthma and COPD. Continue nebulized treatment 4 times every day. Support with oxygen as needed. Consult with Dr. Javier. 7. Fibromyalgia. Continue gabapentin 1200 mg orally 3 times every day, continue Robaxin 500 mg orally 4 times every day. 8. ALLERGIC rhinitis, stable. 9. Recurrent depression. Continue paroxetine 40 mg orally once every day. 10. Chronic tobacco use and dependence. Smoking cessation and counseling an increased risk of CAD, CVA, and malignancy. Continue nicotine patch 14 mg once every day. 11. DVT prophylaxis. Heparin 5000 units subcutaneously every 8 hours, bilateral knee-high MAYUR hose. 12. GI prophylaxis. Continue patient on pepcid 20 mg orally bid. 13. Memory loss, related to ms along with sleep disruption. Continue Namenda. 14. Restless leg syndrome. Continue Requip 0.25 mg 2 times daily Discharge plan: Most likely home with home care in the next 24 hours Impression and plan of care have been directed as dictated by the signing physician. Elaine Nguyen nurse practitioner acting as scribe for signing physician.
[2018-04-05 17:13] LABS: Glucose,Whole Blood 159 mg/dL (75-99)
[2018-04-05] MEDS: PANTOPRAZOLE 40 MG TABLET PO SCH (17:55)
[2018-04-05] MEDS: MEMANTINE 10 MG TAB PO SCH (17:55)
--- NOTE | 2018-04-05 18:17 | P.PN ---
Subjective Progress Note Date: 04/05/18 On today's evaluation of 12,018 I'm seeing this patient for a follow-up. Overall she is doing better. No significant shortness of breath. No cough sputum production chest that is so wheezing. She is a bit unsteady gait and this is related to her previous history of MS. The patient is currently being treated with IV Solu-Medrol regarding an acute MS exacerbation. There are some the case. Follow-up appointment standpoint, no reported cough sputum production chest answer wheezing. Chest x-ray was reviewed on admission and there is no acute abnormalities other than some mild cardiomegaly. The patient is a chronic smoker. Objective - Vital Signs Vital signs: Vital Signs Temp 97.7 F 04/05/18 15:00 Pulse 65 04/05/18 15:00 Resp 16 04/05/18 07:27 BP 143/88 04/05/18 15:00 Pulse Ox 94 L 04/05/18 15:00 Intake & Output 04/04/18 04/05/18 04/05/18 18:59 06:59 18:59 Intake Total 500 240 Balance 500 240 Weight 104.326 kg Intake: Oral 500 240 Other: # Voids 3 2 - Exam Obese, comfortable -[place]ian female patient nonacute distress The patient appeared well nourished and normally developed. Vital signs as documented. Head exam is unremarkable. No scleral icterus or corneal arcus noted. Neck is without jugular venous distension, thyromegaly, or carotid bruits. Carotid upstrokes are brisk bilaterally. Lungs are clear to auscultation and percussion. Cardiac exam reveals the PMI to be normally sized and situated. Rhythm is regular. First and second heart sounds normal. No murmurs, rubs or gallops. Abdominal exam reveals normal bowel sounds, no masses , no organomegaly and no aortic enlargement. Extremities are nonedematous and both femoral and pedal pulses are normal.Examination of the skin revealed no evidence of significant rashes, suspicious appearing nevi or other concerning lesions. Neurologic exam will be deferred up to neurology. Gait is a bit unsteady. - Labs CBC & Chem 7: 04/05/18 08:50 04/05/18 08:50 Labs: Abnormal Lab Results - Last 24 Hours (Table) 04/04/18 04/05/18 04/05/18 Range/Units 19:55 06:51 08:50 WBC 14.1 H (3.8-10.6) k/uL Hct 47.1 H (34.0-46.0) % MCHC 30.4 L (31.0-37.0) g/dL Neutrophils # 12.9 H (1.3-7.7) k/uL Carbon Dioxide (22-30) mmol/L Glucose (74-99) mg/dL POC Glucose (mg/dL) 181 H 158 H (75-99) mg/dL Total Protein (6.3-8.2) g/dL 04/05/18 04/05/18 04/05/18 Range/Units 08:50 11:42 17:09 WBC (3.8-10.6) k/uL Hct (34.0-46.0) % MCHC (31.0-37.0) g/dL Neutrophils # (1.3-7.7) k/uL Carbon Dioxide 34 H (22-30) mmol/L Glucose 233 H (74-99) mg/dL POC Glucose (mg/dL) 135 H 159 H (75-99) mg/dL Total Protein 6.0 L (6.3-8.2) g/dL Microbiology - Last 24 Hours (Table) 04/02/18 14:11 Blood Culture - Preliminary Blood No Growth after 72 hours Assessment and Plan Plan: Assessment 1 COPD currently inactive and stable. Patient presented with an acute COPD exacerbation however her COPD is improved with high-dose Sinemet on bronchodilators 2 acute exacerbation of chronic relapsing remitting multiple sclerosis 3 chronic occipital neuralgia/headache 4 hypertension 5 mild intermittent bronchial asthma 6 femoral myalgia 7 chronic ALLERGIC rhinitis 8 depression 9 smoker 10 chronic pain 11 obesity with a BMI of 40.7 Plan Pulmonary status is stable. Continue management of her MS with high-dose Solu- Medrol. Smoking cessation counseling was done. We'll continue to follow.
[2018-04-05 20:27] LABS: Glucose,Whole Blood 218 mg/dL (75-99)
[2018-04-05] MEDS: MELATONIN 3 MG TABLET PO SCH (21:20)
[2018-04-05] MEDS: NICOTINE 14MG/24HR PATCH TRANSDERM SCH (21:20)
--- NOTE | 2018-04-05 22:05 | P.PN ---
Subjective Progress Note Date: 04/05/18 This patient is a 52 year old -Oman[place] female admtted yesterday for an acute MS exacerbation. She is being treated with IV Solumedrol for treatment of the acute MS exacerbation. The patient has multiple complex medical problems in the past including history of uterine cancer and is status post hysterectomy and radiation therapy. She is also being treated for fibromyalgia and osteoporosis. She also suffers from chronic pain which her primary neurologist treats her with injections. More recently she has been expressing increasing weakness and multiple falls at home associated with memory difficulties. As noted yesterday her last MS exacerbation was fairly recently for which she was admitted in January of this year. She is currently living in the two-story home and is looking to move into a single level home for ease of ambulation. She is been started on IV Solu-Medrol 250 mg IV piggyback every 6 hours for the next 3 days. Depending on her response. Her adjustments will be made as needed. She does have history of underlying COPD and is currently being treated with albuterol every 6 hours as needed. Pulmonary has been consulted as well. The patient continues to show improvement with her MS symptoms today. Her speech is much improved. She would like to start back on her oral dose of Tecfidera 240 mg by mouth twice a day. She is taking it twice a day. Her medication was resumed early this morning. Patient continues to make good progress. Her strength is also improving. She is complaining of some muscle spasms involving her chest muscles and Dr. Rushing is seen the patient as well for pulmonary evaluation. Patient is making good progress with her IV Solu-Medrol. Anticipate she may be considered for discharge home in the next 24-48 hours. Case management is making arrangements for wheelchair for this patient due to her progression of her MS. We anticipate she may be considered for discharge home soon. She will need to be placed on oral prednisone with slow tapering over the next 6 weeks. We will continue close neurological follow-up with the patient during this admission. Objective - Vital Signs Vital signs: Vital Signs Temp 97.7 F 04/05/18 15:00 Pulse 65 04/05/18 15:00 Resp 16 04/05/18 07:27 BP 143/88 04/05/18 15:00 Pulse Ox 94 L 04/05/18 15:00 Intake & Output 04/04/18 04/05/18 04/05/18 18:59 06:59 18:59 Intake Total 500 240 Balance 500 240 Weight 104.326 kg Intake: Oral 500 240 Other: # Voids 3 2 - Exam Physical Examination: PHYSICAL EXAMINATION: Patient is resting comfortably in bed. VITAL SIGNS: Blood pressure is [143/88]. Heart rate is [65]. Respiration is [16] . Temperature is [97.7]. HEENT: Head is atraumatic, neck is supple, there were no carotid bruits. CHEST: Lungs are clear to auscultation and percussion. CARDIAC: S1, S2 normal rate and rhythm. There is no murmur. ABDOMEN: Soft and nontender. Bowel sounds are present. EXTREMITIES: There is no pedal edema. Peripheral pulses are present. Neurological examination: Patient's neurological examination is unchanged from yesterday. The patient's speech is much improved today. She was able to work with physical therapy today and ambulated with her walker. She is making good progress overall since her day of admission. - Labs CBC & Chem 7: 04/05/18 08:50 04/05/18 08:50 Labs: Abnormal Lab Results - Last 24 Hours (Table) 04/04/18 04/05/18 04/05/18 Range/Units 19:55 06:51 08:50 WBC 14.1 H (3.8-10.6) k/uL Hct 47.1 H (34.0-46.0) % MCHC 30.4 L (31.0-37.0) g/dL Neutrophils # 12.9 H (1.3-7.7) k/uL Carbon Dioxide (22-30) mmol/L Glucose (74-99) mg/dL POC Glucose (mg/dL) 181 H 158 H (75-99) mg/dL Total Protein (6.3-8.2) g/dL 04/05/18 04/05/18 04/05/18 Range/Units 08:50 11:42 17:09 WBC (3.8-10.6) k/uL Hct (34.0-46.0) % MCHC (31.0-37.0) g/dL Neutrophils # (1.3-7.7) k/uL Carbon Dioxide 34 H (22-30) mmol/L Glucose 233 H (74-99) mg/dL POC Glucose (mg/dL) 135 H 159 H (75-99) mg/dL Total Protein 6.0 L (6.3-8.2) g/dL Microbiology - Last 24 Hours (Table) 04/02/18 14:11 Blood Culture - Preliminary Blood No Growth after 72 hours Assessment and Plan (1) Multiple sclerosis exacerbation Current Visit: Yes Status: Acute Code(s): G35 - MULTIPLE SCLEROSIS SNOMED Code(s): 106157092 (2) COPD with exacerbation Current Visit: No Status: Acute Code(s): J44.1 - CHRONIC OBSTRUCTIVE PULMONARY DISEASE W (ACUTE) EXACERBATION SNOMED Code(s): 778276725047236 (3) Fibromyalgia Current Visit: No Status: Acute Code(s): M79.7 - FIBROMYALGIA SNOMED Code( s): 532235767 (4) Headache Current Visit: No Status: Acute Code(s): R51 - HEADACHE SNOMED Code(s): 92879858 Plan: This patient is a 52-year-old right-handed -[place]i female admitted to [facility] for acute MS exacerbation. She has a known history of relapsing remitting form of multiple sclerosis which was diagnosed about 7 years ago. She is currently on oral treatment for her MS and is been taking Tecfidera for the past 1 year. Patient developed sudden weakness over the last few days and was advised admission to the hospital for acute MS exacerbation. She was treated for a similar episode just recently in January and discharge home after 3 days. We recommend patient to be started on IV Solu-Medrol therapy for treatment of acute MS exacerbation. We recommended dose of 250 mg of IV Solu-Medrol every [address] the patient on a proton pump inhibitor to protect her stomach. We will make consultation with physical therapy and speech therapy. The patient has history of memory difficulties secondary to her MS. She is being treated with Namenda as well for memory problems. The patient has been tolerating her IV Solu-Medrol therapy since admission yesterday. We're waiting further recommendations from physical therapy. Pulmonary medicine is also been consulted for her history of COPD exacerbation. We are recommending at least 3 days of IV Solu-Medrol therapy for this acute MS exacerbation for this patient. The patient has noted improvement even with one day of IV steroid therapy. We will await further recommendations from multiple specialists that her seeing her as well. The patient is showing improvement with her speech today. She would like to restart her oral dose of Tecfidera which she has been taking in the outpatient setting. This was restarted for her today. She was able to work with physical therapy today and ambulated in the room and may consider ambulating in the hallway tomorrow with PT. Case management is anticipating she may require wheelchair at home and arrangements are being made for her. Anticipate the patient may be ready for discharge in the next 24-48 hours. The patient will need to be placed on oral prednisone at the time of her discharge. She may be placed on tapering doses over the next 6 weeks. Her overall prognosis at this time remains guarded. We will continue close neurological follow-up of this patient during this admission.
[2018-04-06] MEDS: BUTALB/APAP/CAFF 50-325-40MG TAB PO PRN ×3 (00:05→16:43)
[2018-04-06 01:02] VITALS: RESP 16
[2018-04-06] MEDS: METHOCARBAMOL 750 MG TAB PO SCH (05:01)
[2018-04-06] MEDS: LORazepam 1 MG TAB PO PRN ×3 (05:04→21:34)
[2018-04-06] MEDS: methylPREDNISolone SOD SUCCI 250 MG in SODIUM CHLORIDE 0.9% 100 ML IVPB SCH ×3 (05:04→18:19)
[2018-04-06] MEDS: IPRATROPIUM-ALBUTEROL 3 ML NEB INHALATION SCH ×3 (07:28→20:02)
[2018-04-06] MEDS: SYMBICORT 160-4.5 MCG INHALER INHALATION SCH ×2 (07:28→20:02)
[2018-04-06 07:47] LABS: Glucose,Whole Blood 147 mg/dL (75-99)
[2018-04-06] MEDS: oxyCODONE-APAP 10-325MG 1 EACH TAB PO PRN ×2 (07:58→16:43)
[2018-04-06] MEDS: HEPARIN SODIUM,PORCINE 5,000 UNIT/ML 1 ML VIAL SQ SCH ×2 (07:59→16:43)
[2018-04-06] MEDS: PANTOPRAZOLE 40 MG TABLET PO SCH ×2 (07:59→18:19)
[2018-04-06] MEDS: DOCUSATE 100 MG CAP PO SCH ×3 (07:59→21:32)
[2018-04-06] MEDS: INSULIN ASPART 100 UNIT/ML 1 ML 10 ML VIAL SQ SCH ×4 (07:59→21:46)
[2018-04-06] MEDS: DOXYCYCLINE 100 MG CAP PO SCH ×2 (10:28→21:45)
[2018-04-06] MEDS: BACLOFEN 10 MG TAB PO SCH ×3 (10:28→22:06)
[2018-04-06] MEDS: ASPIRIN 81 MG PO SCH (10:29)
[2018-04-06] MEDS: CHOLECALCIFEROL 1,000 UNIT TAB PO SCH (10:29)
[2018-04-06] MEDS: GABAPENTIN 400 MG CAP PO SCH ×3 (10:29→21:33)
[2018-04-06] MEDS: VERAPAMIL SR 120 MG TABLET.ER PO SCH (10:29)
[2018-04-06] MEDS: HYDROCHLOROTHIAZIDE 25 MG TAB PO SCH (10:30)
[2018-04-06] MEDS: PARoxetine 20 MG TAB PO SCH (10:30)
[2018-04-06] MEDS: MULTIVITAMINS, THERA 1 EACH TAB PO SCH (10:30)
[2018-04-06] MEDS: NYSTATIN 100,000 UNIT/ML SUSP 500,000 UNIT/5 ML CUP PO SCH ×4 (10:30→21:33)
[2018-04-06 11:47] LABS: Glucose,Whole Blood 151 mg/dL (75-99)
--- NOTE | 2018-04-06 13:46 | P.PN ---
Subjective Progress Note Date: 04/06/18 This is a 52-year-old -[place] female patient of Dr. Tabares with past medical history of asthma, uterine cancer status post hysterectomy and radiation , fibromyalgia, COPD, chronic hypoxic respiratory failure on home O2, gastroesophageal reflux disease, hypertension, osteoarthritis and osteoporosis, MS currently on Tecfidera, after she was on Copaxone for quite sometime, she has been under the care of from neurology Dr. Ramirez, is also treated for chronic pain and undergoes frequent injections and including occipital nerve block. Patient states that she had bilateral Dr. Ramirez yesterday and normally sees him every 1-2 weeks. She was instructed to go to the hospital and EMS was called to transport her to [facility]. Patient states that she has had trouble with falling, slurred speech and lack of memory as well as pain control. She also states that her pulse ox was low in the office. Her last MS exacerbation was in January of this year at which time she was also treated for elevated troponins without MS. Patient states that she normally walks with a cane or walker at her baseline and Dr. Ramirez has informed her that she may need to get a wheelchair soon. She is currently living in a two-story home with a basement and is looking for a single level home. Regarding smoking, she quit 4 approximate 3 months only the share. She continues to smoke less than a pack per day. Patient came into [facility] emergency center for evaluation. Vital signs were stable, white count was normal, hemoglobin 14.6, BUN 6 and creatinine 0.50. blood glucose 90. Urinalysis was negative. Troponin was negative. AST 57 otherwise renal function and liver function tests were within normal limits. TSH 1.060. EKG was in normal sinus rhythm with no ST changes. Chest x-ray showed cardiomegaly with acute pulmonary process. Patient was admitted to the MedSurg floor and consult with Dr. Alon guevara. He has started the patient on Solu-Medrol 250 mg IV piggyback every 6 hours for MS exacerbation and COPD exacerbation. Consult with Dr. Javier added. Patient normally follows with Dr. Rushing. 04/04: Patient has been seen by Dr. Javier and started on doxycycline, Symbicort and DuoNeb treatments scheduled and as needed. Patient's breathing status today is very stable. She has been afebrile and vital signs are stable, pulse ox 92% on 2 L. Patient states that she is not feeling well this morning but not any worsening of her MS. She is concerned that she has been off Tecfidera as was advised while she is on Solu-Medrol and is concerned that this may be the reason she is not feeling as well today. She is complaining of starting last night of musculoskeletal spasm in her right chest. Dr. Chi is recommending course of Solu-Medrol depending on her response. Current plan is for a course of 3 days total and his artery had improvement from one day of Solu -Medrol. 04/05: Patient is found ambulating in her room and seems to be improving strength. Dr. Chi has cleared her to resume Tecfidra which will be order to start this morning. Her speech is much improved since admission. She does complain of muscle spasms in her chest. We will plan for monitoring overnight, complete steroid infusions and discharge home tomorrow. Case management to make arrangements for wheelchair due to worsening of her overall MS requiring wheelchair to perform her ADLs. 04/06: Patient is stating that Dr. Chi wanted her to stay until tomorrow. She has completed her course of Solu-Medrol. Patient continues to complain of muscle spasms and Robaxin will be changed to baclofen 10 mg 3 times daily scheduled. Patient is complaining of left lower quadrant discomfort due to constipation. Wheelchair will be ordered today with anticipation discharge tomorrow. Patient is to continue a prednisone taper per Dr. Chi at discharge. Review of Systems Constitutional: Reports chronic pain, Reports fatigue, Reports weakness, Denies chills, Denies fever, Denies poor appetite Eyes: bilateral photophobia, denies blurred vision, denies pain Ears, nose, mouth and throat: Denies dental pain, Denies dysphagia, Denies headache, Denies sore throat, Denies vertigo Cardiovascular: Reports decreased exercise tolerance, Reports dyspnea on exertion, complains of right chest pain, Denies edema, Denies leg edema, Denies lightheadedness, Denies shortness of breath, Denies syncope Respiratory: Reports cough, Reports dyspnea, Reports home oxygen, Reports wheezing, Denies excessive sputum, Denies hemoptysis Gastrointestinal: Denies abdominal pain, Denies diarrhea, Denies loss of appetite, Denies melena, Denies nausea, Denies vomiting, complains of constipation Genitourinary: Denies dysuria, Denies hematuria Musculoskeletal: Reports gait dysfunction, Reports muscle weakness, Reports neck pain, Denies myalgias Integumentary: Denies pruritus, Denies rash, Denies wounds Neurological: Reports gait dysfunction, Reports memory loss, Reports visual changes, Denies change in mentation, Denies confusion Psychiatric: Denies anxiety, Denies depression, complains of insomnia Endocrine: Denies fatigue, Denies weight change Objective - Vital Signs Vital signs: Vital Signs Temp 98.2 F 04/06/18 08:07 Pulse 68 04/06/18 13:35 Resp 16 04/06/18 08:07 BP 151/89 04/06/18 08:07 Pulse Ox 96 04/06/18 08:07 Intake & Output 04/05/18 04/06/18 04/06/18 18:59 06:59 18:59 Intake Total 240 280 Balance 240 280 Intake: Oral 240 280 Other: # Voids 2 3 1 # Bowel Movements 1 - Exam General appearance: cooperative, no acute distress, morbidly obese, speech is clear. Gait is steady. Patient is ambulating with physical therapy in the hallway. - EENT Eyes: anicteric sclerae, EOMI, PERRLA, dentition normal, normal appearance ENT: hearing grossly normal, NA/AT, normal oropharynx - Neck occipital nerualgia , left, psotive tenderness, neg brudzinski, neg kernig Neck: normal ROM Thyroid: bilateral: normal size, negative: enlarged, firm, nodule - Respiratory Respiratory: bilateral: CTA, negative: diminished, dullness, rales, rhonchi - Cardiovascular Rhythm: regular Heart sounds: normal: S1, S2 Abnormal Heart Sounds: no systolic murmur, no diastolic murmur, no rub, no S3 Gallop, no S4 Gallop, no click, no other - Gastrointestinal General gastrointestinal: no absent bowel sounds, no decreased bowel sounds, no distended, no hepatomegaly, no hyperactive bowel sounds, normal bowel sounds, no organomegaly, no rigid, no scaphoid, soft, no splenomegaly, no tenderness, no umbilical hernia, no ventral hernia - Integumentary Integumentary: no calor, no cellulitis, no cyanotic, decreased turgor, no flushed, no jaundiced, normal, no normal turgor, no pale, no rash, no ulcer - Neurologic Neurologic: CNII-XII intact - Musculoskeletal Musculoskeletal: generalized weakness, strength equal bilaterally - Psychiatric Psychiatric: A&O x's 3, appropriate affect, intact judgment & insight - Labs CBC & Chem 7: 04/05/18 08:50 04/05/18 08:50 Labs: Abnormal Lab Results - Last 24 Hours (Table) 04/05/18 04/05/18 04/06/18 Range/Units 17:09 20:25 07:46 POC Glucose (mg/dL) 159 H 218 H 147 H (75-99) mg/dL 04/06/18 Range/Units 11:46 POC Glucose (mg/dL) 151 H (75-99) mg/dL Microbiology - Last 24 Hours (Table) 04/02/18 14:11 Blood Culture - Preliminary Blood No Growth after 72 hours Assessment and Plan Plan: 1. Acute exacerbation of relapsing remitting multiple sclerosis. Patient follows with Dr. Ramirez and is normally on Tecfidera 240 mg orally twice every day. Consult with Dr. Alon infante. Patient started on Solu-Medrol 250 mg every 6 hours has been completed. Wheelchair will be ordered as patient needs in order to perform her ADLs. 2. Acute exacerbation of COPD. Continue albuterol every 6 hours as needed, Solu-Medrol, consult with Dr. Javier. 3. Chronic pain and occipital neuralgia under the care of Dr. Ramirez. Continue gabapentin 1200 mg 3 times daily, Robaxin 750 mg every 8 hours, Percocet one 3 times daily, start baclofen 10 mg 3 times daily and discontinue Robaxin. 4. Hypertension and hypertensive cardiovascular disease. Continue verapamil 120 mg orally once every day, Hydrea Diuril 25 mg daily. 5. Obesity with possible obstructive sleep apnea and obesity hypoventilation syndrome. Recommend outpatient sleep study 6. Mild intermittent Asthma and COPD. Continue nebulized treatment 4 times every day. Support with oxygen as needed. Consult with Dr. Javier. 7. Fibromyalgia. Continue gabapentin 1200 mg orally 3 times every day, continue Robaxin 500 mg orally 4 times every day. 8. ALLERGIC rhinitis, stable. 9. Recurrent depression. Continue paroxetine 40 mg orally once every day. 10. Chronic tobacco use and dependence. Smoking cessation and counseling an increased risk of CAD, CVA, and malignancy. Continue nicotine patch 14 mg once every day. 11. DVT prophylaxis. Heparin 5000 units subcutaneously every 8 hours, bilateral knee-high MAYUR hose. 12. GI prophylaxis. Continue patient on pepcid 20 mg orally bid. 13. Memory loss, related to ms along with sleep disruption. Continue Namenda. 14. Restless leg syndrome. Continue Requip 0.25 mg 2 times daily Discharge plan: Most likely home with home care in the next 24 hours Impression and plan of care have been directed as dictated by the signing physician. Elaine Nguyen nurse practitioner acting as scribe for signing physician.
[2018-04-06] MEDS ORDERED: PROMETHAZINE 25 MG TAB PO PRN (16:21)
[2018-04-06 16:28] LABS: Glucose,Whole Blood 145 mg/dL (75-99)
--- NOTE | 2018-04-06 16:40 | P.PN ---
Subjective Progress Note Date: 04/06/18 Principal diagnosis: Exacerbation of multiple sclerosis, COPD exacerbation On today's evaluation of I'm seeing this patient for a follow-up. Overall she is doing better. No significant shortness of breath. No cough sputum production chest that is so wheezing. She is a bit unsteady gait and this is related to her previous history of MS. The patient is currently being treated with IV Solu-Medrol regarding an acute MS exacerbation. There are some the case. Follow-up appointment standpoint, no reported cough sputum production chest answer wheezing. Chest x-ray was reviewed on admission and there is no acute abnormalities other than some mild cardiomegaly. The patient is a chronic smoker. On 04/06/2018 patient seen in follow-up on medical surgical floor. Still has some tightness in her chest, and at night she is been complaining of a cough. On today's exam, didn't appreciate any wheezing on today's exam. She is receiving IV steroid infusions for her MS exacerbation. On nebulized bronchodilators, she is on doxycycline, and Symbicort. Otherwise no acute events overnight. Lung sounds are diminished, no rhonchi or wheezes noted. Objective - Vital Signs Vital signs: Vital Signs Temp 98.2 F 04/06/18 08:07 Pulse 68 04/06/18 13:35 Resp 16 04/06/18 08:07 BP 151/89 04/06/18 08:07 Pulse Ox 96 04/06/18 08:07 Intake & Output 04/05/18 04/06/18 04/06/18 18:59 06:59 18:59 Intake Total 240 280 Balance 240 280 Intake: Oral 240 280 Other: # Voids 2 3 1 # Bowel Movements 1 - Exam GENERAL EXAM: Alert, pleasant, 52-year-old -[place] female comfortable in no apparent distress. HEAD: Normocephalic/atraumatic. EYES: Normal reaction of pupils, equal size. Conjunctiva pink, sclera white. NOSE: Clear with pink turbinates. THROAT: No erythema or exudates. NECK: No masses, no JVD, no thyroid enlargement, no adenopathy. CHEST: No chest wall deformity. Symmetrical expansion. LUNGS: Equal air entry with no crackles, wheeze, rhonchi or dullness. CVS: Regular rate and rhythm, normal S1 and S2, no gallops, no murmurs, no rubs ABDOMEN: Soft, nontender. No hepatosplenomegaly, normal bowel sounds, no guarding or rigidity. EXTREMITIES: No clubbing, no edema, no cyanosis, 2+ pulses and upper and lower extremities. MUSCULOSKELETAL: Muscle strength and tone normal. SPINE: No scoliosis or deformity SKIN: No rashes CENTRAL NERVOUS SYSTEM: Alert and oriented -3. No focal deficits, tone is normal in all 4 extremities. PSYCHIATRIC: Alert and oriented -3. Appropriate affect. Intact judgment and insight. - Labs CBC & Chem 7: 04/05/18 08:50 04/05/18 08:50 Labs: Abnormal Lab Results - Last 24 Hours (Table) 04/05/18 04/05/18 04/06/18 Range/Units 17:09 20:25 07:46 POC Glucose (mg/dL) 159 H 218 H 147 H (75-99) mg/dL 04/06/18 Range/Units 11:46 POC Glucose (mg/dL) 151 H (75-99) mg/dL Microbiology - Last 24 Hours (Table) 04/02/18 14:11 Blood Culture - Preliminary Blood No Growth after 72 hours Assessment and Plan Plan: 1 COPD currently inactive and stable. Patient presented with an acute COPD exacerbation however her COPD is improved with high-dose Sinemet on bronchodilators 2 acute exacerbation of chronic relapsing remitting multiple sclerosis 3 chronic occipital neuralgia/headache 4 hypertension 5 mild intermittent bronchial asthma 6 femoral myalgia 7 chronic ALLERGIC rhinitis 8 depression 9 smoker 10 chronic pain 11 obesity with a BMI of 40.7 Plan Continue with current medical treatment, patient is receiving IV steroid infusion for her exacerbation of MS. Continue with nebulized bronchodilators, Symbicort, we'll add Mucinex, her meclizine syrup at bedtime is needed for coughing spells. A pulmonary perspective patient is stable, we will follow on as-needed basis. I performed a history & physical examination of the patient and discussed their management with my nurse practitioner, Gay Hernandez. I reviewed the nurse practitioner's note and agree with the documented findings and plan of care. Lung sounds are positive for diminished breath sounds. The findings and the impression was discussed with the patient. I attest to the documentation by the nurse practitioner. Time with Patient: Less than 30
[2018-04-06] MEDS: MEMANTINE 10 MG TAB PO SCH (18:19)
[2018-04-06 20:42] LABS: Glucose,Whole Blood 163 mg/dL (75-99)
[2018-04-06] MEDS: NICOTINE 14MG/24HR PATCH TRANSDERM SCH (21:31)
[2018-04-06] MEDS: guaiFENesin 600 MG TABLET.ER PO SCH (21:32)
[2018-04-06] MEDS: MELATONIN 3 MG TABLET PO SCH (21:33)
--- NOTE | 2018-04-06 23:27 | P.PN ---
Subjective Progress Note Date: 04/06/18 This patient is a 52 year old -[place] Citizen female admtted yesterday for an acute MS exacerbation. She is being treated with IV Solumedrol for treatment of the acute MS exacerbation. The patient has multiple complex medical problems in the past including history of uterine cancer and is status post hysterectomy and radiation therapy. She is also being treated for fibromyalgia and osteoporosis. She also suffers from chronic pain which her primary neurologist treats her with injections. More recently she has been expressing increasing weakness and multiple falls at home associated with memory difficulties. As noted yesterday her last MS exacerbation was fairly recently for which she was admitted in January of this year. She is currently living in the two-story home and is looking to move into a single level home for ease of ambulation. She is been started on IV Solu-Medrol 250 mg IV piggyback every 6 hours for the next 3 days. Depending on her response. Her adjustments will be made as needed. She does have history of underlying COPD and is currently being treated with albuterol every 6 hours as needed. Pulmonary has been consulted as well. The patient continues to show improvement with her MS symptoms today. Her speech is much improved. She would like to start back on her oral dose of Tecfidera 240 mg by mouth twice a day. She is taking it twice a day. Her medication was resumed early this morning. Patient continues to make good progress. Her strength is also improving. She is complaining of some muscle spasms involving her chest muscles and Dr. Rushing is seen the patient as well for pulmonary evaluation. Patient is making good progress with her IV Solu-Medrol. Anticipate she may be considered for discharge home tomorrow on tapering dose of oral prednisone. Case management is making arrangements for wheelchair for this patient due to her progression of her MS. We anticipate she may be considered for discharge tomorrow. She will need to be placed on oral prednisone with slow tapering over the next 6 weeks. We've instructed her to follow-up with her neurologist soon after discharge. We will continue close neurological follow-up with the patient during this admission. Objective - Vital Signs Vital signs: Vital Signs Temp 98.2 F 04/06/18 08:07 Pulse 68 04/06/18 13:35 Resp 16 04/06/18 08:07 BP 151/89 04/06/18 08:07 Pulse Ox 96 04/06/18 08:07 Intake & Output 04/05/18 04/06/18 04/06/18 18:59 06:59 18:59 Intake Total 240 280 Balance 240 280 Intake: Oral 240 280 Other: # Voids 2 3 1 # Bowel Movements 1 - Exam Physical Examination: PHYSICAL EXAMINATION: Patient is resting comfortably in bed. VITAL SIGNS: Blood pressure is [131/81]. Heart rate is [61]. Respiration is [16] . Temperature is [97.5]. HEENT: Head is atraumatic, neck is supple, there were no carotid bruits. CHEST: Lungs are clear to auscultation and percussion. CARDIAC: S1, S2 normal rate and rhythm. There is no murmur. ABDOMEN: Soft and nontender. Bowel sounds are present. EXTREMITIES: There is no pedal edema. Peripheral pulses are present. Neurological examination: Patient's neurological examination is unchanged from yesterday. The patient's speech is much improved today. She was able to work with physical therapy today and ambulated with her walker. She is making good progress overall since her day of admission. - Labs CBC & Chem 7: 04/05/18 08:50 04/05/18 08:50 Labs: Abnormal Lab Results - Last 24 Hours (Table) 04/05/18 04/05/18 04/06/18 Range/Units 17:09 20:25 07:46 POC Glucose (mg/dL) 159 H 218 H 147 H (75-99) mg/dL 04/06/18 Range/Units 11:46 POC Glucose (mg/dL) 151 H (75-99) mg/dL Microbiology - Last 24 Hours (Table) 04/02/18 14:11 Blood Culture - Preliminary Blood No Growth after 72 hours Assessment and Plan (1) Multiple sclerosis exacerbation Current Visit: Yes Status: Acute Code(s): G35 - MULTIPLE SCLEROSIS SNOMED Code(s): 411312334 (2) COPD with exacerbation Current Visit: No Status: Acute Code(s): J44.1 - CHRONIC OBSTRUCTIVE PULMONARY DISEASE W (ACUTE) EXACERBATION SNOMED Code(s): 835968923627839 (3) Fibromyalgia Current Visit: No Status: Acute Code(s): M79.7 - FIBROMYALGIA SNOMED Code( s): 494987705 (4) Headache Current Visit: No Status: Acute Code(s): R51 - HEADACHE SNOMED Code(s): 38707021 Plan: This patient is a 52-year-old right-handed -[place] Citizen female admitted to [facility] for acute MS exacerbation. She has a known history of relapsing remitting form of multiple sclerosis which was diagnosed about 7 years ago. She is currently on oral treatment for her MS and is been taking Tecfidera for the past 1 year. Patient developed sudden weakness over the last few days and was advised admission to the hospital for acute MS exacerbation. She was treated for a similar episode just recently in January and discharge home after 3 days. We recommend patient to be started on IV Solu-Medrol therapy for treatment of acute MS exacerbation. We recommended dose of 250 mg of IV Solu-Medrol every [address] the patient on a proton pump inhibitor to protect her stomach. We will make consultation with physical therapy and speech therapy. The patient has history of memory difficulties secondary to her MS. She is being treated with Namenda as well for memory problems. The patient has been tolerating her IV Solu-Medrol therapy since admission yesterday. We're waiting further recommendations from physical therapy. Pulmonary medicine is also been consulted for her history of COPD exacerbation. We are recommending at least 3 days of IV Solu-Medrol therapy for this acute MS exacerbation for this patient. The patient has noted improvement even with one day of IV steroid therapy. We will await further recommendations from multiple specialists that her seeing her as well. The patient is showing improvement with her speech today. She would like to restart her oral dose of Tecfidera which she has been taking in the outpatient setting. This was restarted for her today. She was able to work with physical therapy today and ambulated in the room and may consider ambulating in the hallway tomorrow with PT. Case management is anticipating she may require wheelchair at home and arrangements are being made for her. Anticipate the patient may be ready for discharge home tomorrow. The patient will need to be placed on oral prednisone at the time of her discharge. She may be placed on tapering doses over the next 6 weeks. She is to follow-up with her primary care physician in one week. Her overall prognosis at this time remains guarded. We will continue close neurological follow-up of this patient during this admission.
[2018-04-07] MEDS: methylPREDNISolone SOD SUCCI 250 MG in SODIUM CHLORIDE 0.9% 100 ML IVPB SCH ×4 (00:16→18:41)
[2018-04-07] MEDS: oxyCODONE-APAP 10-325MG 1 EACH TAB PO PRN ×3 (00:17→18:30)
[2018-04-07] MEDS: HEPARIN SODIUM,PORCINE 5,000 UNIT/ML 1 ML VIAL SQ SCH ×3 (00:17→16:46)
[2018-04-07] MEDS: BUTALB/APAP/CAFF 50-325-40MG TAB PO PRN ×3 (00:18→18:31)
[2018-04-07 06:44] LABS: Glucose,Whole Blood 175 mg/dL (75-99)
[2018-04-07] MEDS: LORazepam 1 MG TAB PO PRN ×2 (07:22→16:45)
[2018-04-07] MEDS: IPRATROPIUM-ALBUTEROL 3 ML NEB INHALATION SCH ×2 (07:33→13:31)
[2018-04-07] MEDS: SYMBICORT 160-4.5 MCG INHALER INHALATION SCH (07:33)
[2018-04-07] MEDS: guaiFENesin 600 MG TABLET.ER PO SCH (09:17)
[2018-04-07] MEDS: MULTIVITAMINS, THERA 1 EACH TAB PO SCH (09:17)
[2018-04-07] MEDS: PARoxetine 20 MG TAB PO SCH (09:18)
[2018-04-07] MEDS: DOCUSATE 100 MG CAP PO SCH (09:18)
[2018-04-07] MEDS: PANTOPRAZOLE 40 MG TABLET PO SCH ×2 (09:18→16:45)
[2018-04-07] MEDS: GABAPENTIN 400 MG CAP PO SCH ×2 (09:18→16:45)
[2018-04-07] MEDS: BACLOFEN 10 MG TAB PO SCH ×2 (09:19→16:45)
[2018-04-07] MEDS: CHOLECALCIFEROL 1,000 UNIT TAB PO SCH (09:19)
[2018-04-07] MEDS: NYSTATIN 100,000 UNIT/ML SUSP 500,000 UNIT/5 ML CUP PO SCH ×2 (09:19→16:46)
[2018-04-07] MEDS: HYDROCHLOROTHIAZIDE 25 MG TAB PO SCH (09:19)
[2018-04-07] MEDS: ASPIRIN 81 MG PO SCH (09:19)
[2018-04-07] MEDS: DOXYCYCLINE 100 MG CAP PO SCH (09:20)
[2018-04-07] MEDS: INSULIN ASPART 100 UNIT/ML 1 ML 10 ML VIAL SQ SCH ×3 (09:20→18:42)
[2018-04-07 11:41] LABS: Glucose,Whole Blood 150 mg/dL (75-99)
--- NOTE | 2018-04-07 12:04 | P.DS ---
Providers Date of admission: 04/02/18 16:38 Expected date of discharge: 04/07/18 Attending physician: Nafisa Xie MD Consults: 04/02/18 17:47 Consult Physician Urgent Consulting Provider: Sergo Chi Consult Reason/Comments: weakness Do you want consulting provider notified?: Already Contacted 04/03/18 09:01 Consult Physician Routine Consulting Provider: Juni Javier Consult Reason/Comments: copd exac Do you want consulting provider notified?: Yes Primary care physician: Kilo Tabares [facility] Course: This is a 52-year-old -English female patient of Dr. Tabares with past medical history of asthma, uterine cancer status post hysterectomy and radiation , fibromyalgia, COPD, chronic hypoxic respiratory failure on home O2, gastroesophageal reflux disease, hypertension, osteoarthritis and osteoporosis, MS currently on Tecfidera, after she was on Copaxone for quite sometime, she has been under the care of from neurology Dr. Ramirez, is also treated for chronic pain and undergoes frequent injections and including occipital nerve block. Patient states that she had bilateral Dr. Ramirez yesterday and normally sees him every 1-2 weeks. She was instructed to go to the hospital and EMS was called to transport her to [facility]. Patient states that she has had trouble with falling, slurred speech and lack of memory as well as pain control. She also states that her pulse ox was low in the office. Her last MS exacerbation was in January of this year at which time she was also treated for elevated troponins without DE. Patient states that she normally walks with a cane or walker at her baseline and Dr. Ramirez has informed her that she may need to get a wheelchair soon. She is currently living in a two-story home with a basement and is looking for a single level home. Regarding smoking, she quit 4 approximate 3 months only the share. She continues to smoke less than a pack per day. Patient came into [facility] emergency center for evaluation. Vital signs were stable, white count was normal, hemoglobin 14.6, BUN 6 and creatinine 0.50. blood glucose 90. Urinalysis was negative. Troponin was negative. AST 57 otherwise renal function and liver function tests were within normal limits. TSH 1.060. EKG was in normal sinus rhythm with no ST changes. Chest x-ray showed cardiomegaly with acute pulmonary process. Patient was admitted to the [facility] floor and consult with Dr. Chi requested. He has started the patient on Solu-Medrol 250 mg IV piggyback every 6 hours for MS exacerbation and COPD exacerbation. Consult with Dr. Javier added. Patient normally follows with Dr. Rushing. 04/04: Patient has been seen by Dr. Javier and started on doxycycline, Symbicort and DuoNeb treatments scheduled and as needed. Patient's breathing status today is very stable. She has been afebrile and vital signs are stable, pulse ox 92% on 2 L. Patient states that she is not feeling well this morning but not any worsening of her MS. She is concerned that she has been off Tecfidera as was advised while she is on Solu-Medrol and is concerned that this may be the reason she is not feeling as well today. She is complaining of starting last night of musculoskeletal spasm in her right chest. Dr. Chi is recommending course of Solu-Medrol depending on her response. Current plan is for a course of 3 days total and his artery had improvement from one day of Solu -Medrol. 04/05: Patient is found ambulating in her room and seems to be improving strength. Dr. Chi has cleared her to resume Tecfidra which will be order to start this morning. Her speech is much improved since admission. She does complain of muscle spasms in her chest. We will plan for monitoring overnight, complete steroid infusions and discharge home tomorrow. Case management to make arrangements for wheelchair due to worsening of her overall MS requiring wheelchair to perform her ADLs. 04/06: Patient is stating that Dr. Chi wanted her to stay until tomorrow. She has completed her course of Solu-Medrol. Patient continues to complain of muscle spasms and Robaxin will be changed to baclofen 10 mg 3 times daily scheduled. Patient is complaining of left lower quadrant discomfort due to constipation. Wheelchair will be ordered today with anticipation discharge tomorrow. Patient is to continue a prednisone taper per Dr. Chi at discharge. 04/07: Patient states that she continues to see improvement. Dr. Chi has cleared her for discharge. Her breathing status is stable and patient is unclear bipolar medicine for discharge. Patient will be discharged home today in stable condition. Discharge diagnoses: 1. Acute exacerbation of relapsing remitting multiple sclerosis. 2. Acute exacerbation of COPD. 3. Chronic pain and occipital neuralgia under the care of Dr. Ramirez. 4. Hypertension and hypertensive cardiovascular disease. 5. Obesity with possible obstructive sleep apnea and obesity hypoventilation syndrome. Recommend outpatient sleep study 6. Mild intermittent Asthma and COPD. 7. Fibromyalgia. 8. ALLERGIC rhinitis, stable. 9. Recurrent depression. 10. Chronic tobacco use and dependence. 11. Memory loss, related to ms along with sleep disruption. 12. Restless leg syndrome. 13. Morbid obesity with BMI of 40. Discharge plan: home with [facility] Impression and plan of care have been directed as dictated by the signing physician. Elaine Nguyen nurse practitioner acting as scribe for signing physician. Patient Condition at Discharge: Good Plan - Discharge Summary Discharge Rx Participant: Yes New Discharge Prescriptions: New Baclofen [Lioresal] 10 mg PO TID #60 tab Doxycycline [Vibramycin] 100 mg PO BID #6 cap guaiFENesin [Mucinex] 1,200 mg PO Q12HR tablet.er Hydrochlorothiazide [Hydrodiuril] 25 mg PO DAILY #30 tab Nicotine 14Mg/24Hr Patch [Habitrol] 1 patch TRANSDERM Q24H #30 patch Pantoprazole [Protonix] 40 mg PO AC-BID #60 tablet. predniSONE 0 mg PO DIRECTED #144 tab Continue Albuterol Inhaler [Ventolin Hfa Inhaler] 2 puff INHALATION RT-Q6H PRN PRN Reason: Wheezing PARoxetine HCL [Paxil] 40 mg PO DAILY LORazepam [Ativan] 1 mg PO Q8H PRN PRN Reason: Anxiety Aspirin 81 mg PO DAILY Verapamil HCl 120 mg PO DAILY Multivit with Calcium,Iron,Min [Women's Daily Multivitamin] 1 tab PO DAILY Cholecalciferol [Vitamin D3] 1,000 units PO DAILY Gabapentin [Neurontin] 1,200 mg PO TID Butalb/APAP/Caff 50-325-40Mg [Fioricet 50-325-40] 1 tab PO Q8H PRN PRN Reason: Headache Dimethyl Fumarate [Tecfidera] 240 mg PO BID Memantine [Namenda] 10 mg PO AC-SUPPER Melatonin 6 mg PO HS tablet Nystatin 100,000 Unit/ml Susp [Mycostatin Oral Susp] 500,000 unit PO QID #28 cup oxyCODONE-APAP 10-325MG [Percocet 10-325 mg] 1 each PO TID PRN PRN Reason: pain rOPINIRole HCL [Requip] 0.25 mg PO TID #90 tab Ondansetron HCl [Zofran] 8 mg PO TID PRN PRN Reason: Nausea Docusate [Colace] 100 mg PO DAILY PRN PRN Reason: Constipation Discontinued Ranitidine HCl [Zantac] 150 mg PO BID Methocarbamol [Robaxin] 750 mg PO Q6H Discharge Medication List Albuterol Inhaler [Ventolin Hfa Inhaler] 2 puff INHALATION RT-Q6H PRN 02/20/14 [ History] Aspirin 81 mg PO DAILY 02/20/14 [History] Cholecalciferol [Vitamin D3] 1,000 units PO DAILY 02/20/14 [History] LORazepam [Ativan] 1 mg PO Q8H PRN 02/20/14 [History] Multivit with Calcium,Iron,Min [Women's Daily Multivitamin] 1 tab PO DAILY 02/20 [History] PARoxetine HCL [Paxil] 40 mg PO DAILY 02/20/14 [History] Verapamil HCl 120 mg PO DAILY 02/20/14 [History] Gabapentin [Neurontin] 1,200 mg PO TID 08/19/16 [History] Butalb/APAP/Caff 50-325-40Mg [Fioricet 50-325-40] 1 tab PO Q8H PRN 03/25/17 [ History] Dimethyl Fumarate [Tecfidera] 240 mg PO BID 03/25/17 [History] Memantine [Namenda] 10 mg PO AC-SUPPER 10/02/17 [History] Melatonin 6 mg PO HS tablet 10/05/17 [Rx] Nystatin 100,000 Unit/ml Susp [Mycostatin Oral Susp] 500,000 unit PO QID #28 cup 10/05/17 [Rx] oxyCODONE-APAP 10-325MG [Percocet 10-325 mg] 1 each PO TID PRN 01/28/18 [History ] rOPINIRole HCL [Requip] 0.25 mg PO TID #90 tab 01/31/18 [Rx] Docusate [Colace] 100 mg PO DAILY PRN 04/02/18 [History] Ondansetron HCl [Zofran] 8 mg PO TID PRN 04/02/18 [History] Baclofen [Lioresal] 10 mg PO TID #60 tab 04/07/18 [Rx] Doxycycline [Vibramycin] 100 mg PO BID #6 cap 04/07/18 [Rx] Hydrochlorothiazide [Hydrodiuril] 25 mg PO DAILY #30 tab 04/07/18 [Rx] Nicotine 14Mg/24Hr Patch [Habitrol] 1 patch TRANSDERM Q24H #30 patch 04/07/18 [ Rx] Pantoprazole [Protonix] 40 mg PO AC-BID #60 tablet.dr 04/07/18 [Rx] guaiFENesin [Mucinex] 1,200 mg PO Q12HR tablet.er 04/07/18 [Rx] predniSONE 0 mg PO DIRECTED #144 tab 04/07/18 [Rx] Follow up Appointment(s)/Referral(s): [facility], [NON-STAFF] - 1 Week Kilo Tabares MD [Primary Care Provider] - 1 Week Carolynn Ramirez MD [STAFF PHYSICIAN] - 1 Week Activity/Diet/Wound Care/Special Instructions: Patient home medication for Tecfidera in patient med bin from pharmacy. [facility] - [phone] - will deliver to bedside before discharge Discharge Disposition: HOME WITH HOME HEALTH SERVICES
[2018-04-07] MEDS: VERAPAMIL SR 120 MG TABLET.ER PO SCH (14:03)
[2018-04-07 14:48] VITALS: BP 135/74; PULSE 59; TEMP 98
[2018-04-07] MEDS: MEMANTINE 10 MG TAB PO SCH (16:45)
== END 2018-04-07 19:22 | disposition home health service (06) | DRG 59 ==
LOC: EC 13:50 → 4SSUR 16:38
PROVIDERS: ADMIT Internal Medicine; ATTEND Internal Medicine
DX: G35 Multiple sclerosis (principal); J44.1 Chronic obstructive pulmonary disease with (acute) exacerbation; Z68.41 Body mass index [BMI] 40.0-44.9, adult; E66.2 Morbid (severe) obesity with alveolar hypoventilation; F33.9 Major depressive disorder, recurrent, unspecified; J96.11 Chronic respiratory failure with hypoxia; I11.9 Hypertensive heart disease without heart failure; J45.20 Mild intermittent asthma, uncomplicated; F41.9 Anxiety disorder, unspecified; G89.29 Other chronic pain; M54.81 Occipital neuralgia; G47.33 Obstructive sleep apnea (adult) (pediatric); G47.9 Sleep disorder, unspecified; G25.81 Restless legs syndrome; K21.9 Gastro-esophageal reflux disease without esophagitis; K59.00 Constipation, unspecified; R29.6 Repeated falls; M81.0 Age-related osteoporosis without current pathological fracture; M19.90 Unspecified osteoarthritis, unspecified site; M79.7 Fibromyalgia; F17.210 Nicotine dependence, cigarettes, uncomplicated; Z71.6 Tobacco abuse counseling; Z99.81 Dependence on supplemental oxygen; Z79.82 Long term (current) use of aspirin; Z79.899 Other long term (current) drug therapy; Z86.19 Personal history of other infectious and parasitic diseases; Z85.42 Personal history of malignant neoplasm of other parts of uterus; Z92.3 Personal history of irradiation; Z90.710 Acquired absence of both cervix and uterus; Z82.3 Family history of stroke; Z82.49 Family history of ischemic heart disease and other diseases of the circulatory system; Z82.41 Family history of sudden cardiac death
CPT/HCPCS: 36415; 71046; 80053; 81003; 82550; 82553; 83036; 83605; 83735; 84100; 84443; 84484; 85025; 85610; 85730; 87040; 93005; 94640; 94760; 96361; 96374; 99285

== ENCOUNTER 2018-05-06 14:30 | Inpatient (IN) | payer MEDICARE, OTHER ==
--- NOTE | 2018-05-06 14:54 | ED ---
General Adult HPI - General Chief complaint: Recheck/Abnormal Lab/Rx Stated complaint: MS Source: patient, EMS Mode of arrival: EMS Limitations: no limitations - Related Data Home Medications Medication Instructions Recorded Confirmed Albuterol Inhaler [Ventolin Hfa 2 puff INHALATION RT-Q6H PRN 02/20/14 05/06/18 Inhaler] Aspirin 81 mg PO DAILY 02/20/14 05/06/18 LORazepam [Ativan] 1 mg PO Q8H PRN 02/20/14 05/06/18 Verapamil HCl 120 mg PO DAILY 02/20/14 05/06/18 Gabapentin [Neurontin] 1,200 mg PO TID 08/19/16 05/06/18 Butalb/APAP/Caff 50-325-40Mg 1 tab PO Q8H PRN 03/25/17 05/06/18 [Fioricet 50-325-40] Memantine [Namenda] 10 mg PO AC-SUPPER 10/02/17 05/06/18 oxyCODONE-APAP 10-325MG [Percocet 1 tab PO TID PRN 01/28/18 05/06/18 10-325 mg] Docusate [Colace] 100 mg PO DAILY PRN 04/02/18 05/06/18 Ondansetron HCl [Zofran] 8 mg PO TID PRN 04/02/18 05/06/18 Albuterol Nebulized [Ventolin 2.5 mg INHALATION RT-Q6H PRN 05/06/18 05/06/18 Nebulized] Budesonide/Formoterol Fumarate 2 puff INHALATION RT-BID 05/06/18 05/06/18 [Symbicort 160-4.5 Mcg Inhaler] Methocarbamol [Robaxin] 750 mg PO BID PRN 05/06/18 05/06/18 Ranitidine HCl 150 mg PO BID 05/06/18 05/06/18 Previous Rx's Medication Instructions Recorded Nystatin 100,000 Unit/ml Susp 500,000 unit PO QID #28 cup 10/05/17 [Mycostatin Oral Susp] rOPINIRole HCL [Requip] 0.25 mg PO TID #90 tab 01/31/18 Baclofen [Lioresal] 10 mg PO TID #60 tab 04/07/18 Doxycycline [Vibramycin] 100 mg PO BID #6 cap 12/05/18 Allergies Allergy/AdvReac Type Severity Reaction Status Date / Time No Known Allergies Allergy Verified 05/06/18 15:43 Review of Systems ROS Statement: Those systems with pertinent positive or pertinent negative responses have been documented in the HPI. ROS Other: All systems not noted in ROS Statement are negative. Past Medical History Past Medical History: Asthma, Cancer, COPD, Fibromyalgia, GERD/Reflux, Hypertension, Neurologic Disorder, Osteoarthritis (OA), Syncope Additional Past Medical History / Comment(s): Rheumatic fever, heart murmur, osteoporosis, chronic bronchitis, MS,vertigo, lexiscan stress test. 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 History of Any Multi-Drug Resistant Organisms: None Reported Past Surgical History: Bladder Surgery, Heart Catheterization, Hysterectomy Additional Past Surgical History / Comment(s): uterine cancer, radiation, Past Anesthesia/Blood Transfusion Reactions: No Reported Reaction Additional Past Anesthesia/Blood Transfusion Reaction / Comment(s): mild clausterphobia Past Psychological History: Anxiety, Depression Smoking Status: Current every day smoker Past Alcohol Use History: None Reported Past Drug Use History: None Reported - Past Family History Mother Family Medical History: CVA/TIA, Myocardial Infarction ([place]) Additional Family Medical History / Comment(s): Mother is alive at age 73 with history of brain aneurysm, 3 strokes and 2 myocardial infarctions. Father Additional Family Medical History / Comment(s): Father at age 72 from a cardiac arrest thought to be due to a myocardial infarction. Sister(s) Additional Family Medical History / Comment(s): Patient has 2 sisters with no major medical problems. Patient does not have any brothers. Patient has 2 children ages 34 and 27 with no major medical problems. Patient is only family member with MS. General Exam Limitations: no limitations Course Vital Signs 05/06/18 14:34 Temperature 97.8 F Pulse Rate 97 Respiratory 18 Rate Blood Pressure 108/51 O2 Sat by Pulse 90 L Oximetry Medical Decision Making - Medical Decision Making Dictation was produced using [employer] dictation software. please excuse any grammatical, word or spelling errors. Chief Complaint: 52-year-old Rican female past medical history of multiple sclerosis, asthma, COPD, osteoarthritis presents with chief complaint of multiple sclerosis flare. History of Present Illness: Patient is 52-year-old female presents chief complaint of multiple sclerosis flare. Patient was recently admitted to the hospital last month where she is discharged per she states she discharged herself to go home for the holidays. She [facility] back [facility]. Patient states she's been on IV steroids while she was inpatient patient did have a steroid taper. She is currently on 20 mg daily. Patient reports that her symptoms are recurring. She states that one of her main symptoms as stuttering which only occurs during MS flare. Patient also complains of some numbness in her right hand. The ROS documented in this emergency department record has been reviewed and confirmed by me. Those systems with pertinent positive or negative responses have been documented in the HPI. All other systems are other negative and/or noncontributory. PHYSICAL EXAM: General Impression: Alert and oriented x3, not in acute distress, stuttering speech HEENT: Normocephalic atraumatic, extra-ocular movements intact, pupils equal and reactive to light bilaterally, mucous membranes moist. Cardiovascular: Heart regular rate and rhythm, S1&S2 audible, no murmurs, rubs or gallops Chest: Lungs clear to auscultation bilaterally, no rhonchi, no wheeze, no rales Abdomen: Bowel sounds present, abdomen soft, non-tender, non-distended, no organomegaly Musculoskeletal: Pulses present and equal in all extremities, no peripheral edema Motor: Power 5/5 bilaterally, no focal deficits noted Neurological: CN II-XII grossly intact, diminished sensation to light touch of the right hand Skin: Intact with no visualized rashes Psych: Anxious ED course: 52-year-old female past medical history of multiple sclerosis presents chief complaint of multiple sclerosis 4. Upon arrival are within acceptable limits. Clinical presentation is suspicious for multiple sclerosis flare. Discussed patient case with Dr. Chi who recommends administration of one-time IV Solu-Medrol. He does recommend tried to get in contact with patient 's neurologist Dr. Ramirez. Discussed patient case with Dr. Ramirez who recommends 250 mg IV piggyback one time. States if she feels better she can be discharged with Medrol Dosepak to continue IV steroid infusions in the clinic. He does recommend that if patient does not feel better that she should be admitted for steroid infusions inpatient. Patient given steroids patient is reevaluated and still feels unwell. While patient admitted for steroid infusions. Patient be admitted to medicine with neurology on consult. EKG interpretation: Ventricular rate 87, normal sinus rhythm, NC interval 146, QS 74, QTC 452. No NC prolongation, no QTC prolongation, no ST or T-wave changes noted. . Overall, this EKG is unremarkable - Lab Data Result diagrams: 05/06/18 16:18 05/06/18 16:18 Lab Results 05/06/18 05/06/18 Range/Units 16:18 16:18 WBC 14.2 H (3.8-10.6) k/uL RBC 4.35 (3.80-5.40) m/uL Hgb 13.4 (11.4-16.0) gm/dL Hct 42.6 (34.0-46.0) % MCV 98.1 (80.0-100.0) fL MCH 30.8 (25.0-35.0) pg MCHC 31.4 (31.0-37.0) g/dL RDW 14.8 (11.5-15.5) % Plt Count 219 (150-450) k/uL Neutrophils % 88 % Lymphocytes % 8 % Monocytes % 2 % Eosinophils % 1 % Basophils % 0 % Neutrophils # 12.5 H (1.3-7.7) k/uL Lymphocytes # 1.1 (1.0-4.8) k/uL Monocytes # 0.3 (0-1.0) k/uL Eosinophils # 0.1 (0-0.7) k/uL Basophils # 0.0 (0-0.2) k/uL Hypochromasia Slight Sodium 139 (137-145) mmol/L Potassium 4.3 (3.5-5.1) mmol/L Chloride 97 L (98-107) mmol/L Carbon Dioxide 35 H (22-30) mmol/L Anion Gap 7 mmol/L BUN 7 (7-17) mg/dL Creatinine 0.52 (0.52-1.04) mg/dL Est GFR (CKD-EPI)AfAm >90 (>60 ml/min/1.73 sqM) Est GFR (CKD-EPI)NonAf >90 (>60 ml/min/1.73 sqM) Glucose 141 H (74-99) mg/dL Calcium 9.4 (8.4-10.2) mg/dL Disposition Clinical Impression: Multiple sclerosis Disposition: ADMITTED IP TO THIS HOSP Condition: Fair Referrals: Kilo Tabares MD [Primary Care Provider] - 1-2 days Decision Time: 17:28
[2018-05-06] MEDS ORDERED: methylPREDNISolone SOD SUCCI 250 MG in SODIUM CHLORIDE 0.9% 100 ML IVPB STA (15:08)
[2018-05-06] MEDS ORDERED: SODIUM CHLORIDE 0.9% 500 ML IV STA (15:08)
[2018-05-06 16:40] LABS: Basophils % (A) 0 %; Eosinophils # (A) 0.1 k/uL (0-0.7); Eosinophils % (A) 1 %; HCT 42.6 % (34.0-46.0); HGB 13.4 gm/dL (11.4-16.0); Hypochromasia Slight; Lymphocytes # (A) 1.1 k/uL (1.0-4.8); Lymphocytes % (A) 8 %; MCH 30.8 pg (25.0-35.0); MCHC 31.4 g/dL (31.0-37.0); MCV 98.1 fL (80.0-100.0); Mean Platelet Volume 8.4; Monocytes # (A) 0.3 k/uL (0-1.0); Monocytes % (A) 2 %; Neutrophils # (A) 12.5 k/uL (1.3-7.7); Neutrophils % (A) 88 %; Platelet Count 219 k/uL (150-450); RBC 4.35 m/uL (3.80-5.40); RDW 14.8 % (11.5-15.5); WBC 14.2 k/uL (3.8-10.6)
[2018-05-06 16:55] LABS: Anion Gap 7 mmol/L; Blood Urea Nitrogen 7 mg/dL (7-17); Calcium 9.4 mg/dL (8.4-10.2); Carbon Dioxide 35 mmol/L (22-30); Chloride 97 mmol/L (98-107); Glucose 141 mg/dL (74-99); Potassium 4.3 mmol/L (3.5-5.1); Sodium 139 mmol/L (137-145)
[2018-05-06] MEDS ORDERED: NALOXONE 0.4 MG/ML 1 ML VIAL IV PRN (17:25)
[2018-05-06] MEDS ORDERED: ALBUTEROL INHALER 60 PUFF/8 GM INHALER INHALATION PRN (18:37)
[2018-05-06] MEDS ORDERED: ONDANSETRON 4 MG TAB PO PRN (18:37)
[2018-05-06] MEDS ORDERED: DOCUSATE 100 MG CAP PO PRN (18:37)
[2018-05-06] MEDS ORDERED: METHOCARBAMOL 750 MG TAB PO PRN (18:37)
[2018-05-06] MEDS: SYMBICORT 160-4.5 MCG INHALER INHALATION SCH (19:26)
[2018-05-06] MEDS: FAMOTIDINE 20 MG TAB PO SCH (21:35)
[2018-05-06] MEDS: oxyCODONE-APAP 10-325MG 1 EACH TAB PO PRN (21:36)
[2018-05-06] MEDS: GABAPENTIN 400 MG CAP PO SCH (21:36)
[2018-05-06] MEDS: DOXYCYCLINE 100 MG CAP PO SCH (21:36)
[2018-05-06] MEDS: BACLOFEN 10 MG TAB PO SCH (21:36)
[2018-05-06] MEDS: NYSTATIN 100,000 UNIT/ML SUSP 500,000 UNIT/5 ML CUP PO SCH (21:37)
[2018-05-06] MEDS: PANTOPRAZOLE 40 MG/10 ML VIAL IVP SCH (21:37)
[2018-05-06] MEDS: LORazepam 1 MG TAB PO PRN (21:37)
[2018-05-06] MEDS: methylPREDNISolone SOD SUCCI 250 MG in SODIUM CHLORIDE 0.9% 100 ML IVPB SCH (22:19)
[2018-05-06] MEDS: BUTALB/APAP/CAFF 50-325-40MG TAB PO PRN (22:40)
--- NOTE | 2018-05-06 22:51 | P.CNNES ---
History of Present Illness Consult date: 05/06/18 Reason for Consult: Patient admitted with acute MS exacerbation. History of Present Illness: This patient is a 52-year-old -French female who was brought into the emergency room today for further evaluation of acute MS exacerbation. Patient has a long-standing history of multiple sclerosis and was just recently admitted and treated for MS exacerbation about 2 months ago. She was discharged home after 5 days of treatment. She states she was doing very well and was able to celebrate the holiday with her family in [place]. She thinks she overdid things there and became extremely exhausted. Upon return to [place] she has noted increased symptoms of stuttering speech and paresthesias. She also complained of generalized weakness. She was seen in the emergency room by Dr. Mann and was given a dose of IV Solu-Medrol. Unfortunately she did not show much improvement and it was decided to admit the patient for a full course of IV Solu-Medrol at maximum dose of 250 mg IV piggyback every 6 hours. Patient presented last admission with similar symptoms of stuttering speech. She did respond to the IV steroid therapy and was able to be discharged home. She states she likely overdid things over the holidays which may have exacerbated her recent flareup now. The patient also uses Tecfidera as her primary treatment for her MS. She is taking 240 mg twice a day. She does follow with Dr. Ramirez in the outpatient neurology clinic. Since she had failed high-dose steroid in the ER was decided that she would be best admitted for full course of steroid therapy. The patient also has history of muscle spasms and uses baclofen 3 times a day. We will get physical therapy and speech therapy to evaluate her as well. Her overall prognosis at this time remains guarded. We have discussed treatment therapy for the patient with IV Solu-Medrol for at least 3 days. Depending on her clinical course she may require a few extra days as needed. We will continue to follow her progress closely during this admission. Review of Systems Constitutional: Denies chills, Denies fever Eyes: denies blurred vision, denies pain Ears, nose, mouth and throat: Denies headache, Denies sore throat Cardiovascular: Denies chest pain, Denies shortness of breath Respiratory: Denies cough Gastrointestinal: Denies abdominal pain, Denies diarrhea, Denies nausea, Denies vomiting Genitourinary: Denies dysuria, Denies hematuria Musculoskeletal: Denies myalgias Integumentary: Denies pruritus, Denies rash Neurological: Reports aphasia, Reports change in speech, Reports confusion, Reports paresthesias, Denies numbness, Denies weakness Psychiatric: Denies anxiety, Denies depression Endocrine: Denies fatigue, Denies weight change Past Medical History Past Medical History: Asthma, Cancer, COPD, Fibromyalgia, GERD/Reflux, Hypertension, Neurologic Disorder, Osteoarthritis (OA), Syncope Additional Past Medical History / Comment(s): Rheumatic fever, heart murmur, osteoporosis, chronic bronchitis, MS,vertigo, lexiscan stress test. 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 History of Any Multi-Drug Resistant Organisms: None Reported Past Surgical History: Bladder Surgery, Heart Catheterization, Hysterectomy Additional Past Surgical History / Comment(s): uterine cancer, radiation,NERVE BLOCKS Past Anesthesia/Blood Transfusion Reactions: No Reported Reaction Additional Past Anesthesia/Blood Transfusion Reaction / Comment(s): mild clausterphobia Past Psychological History: Anxiety, Depression Additional Psychological History / Comment(s): Pt resides alone. She uses a cane or walker .She has a private hire nurse aide who organizers her meds in business planner but pt manages her own meds,assists her with her ADLs. This aide also prepares meals/shopping. Pt does not drive, she has her friends take her to appts. Smoking Status: Current every day smoker Past Alcohol Use History: None Reported Additional Past Alcohol Use History / Comment(s): Patient is a smoker of less than one pack per day and has smoked on and off for 20 years. She denies any marijuana or street drug use. She is and lives alone. Past Drug Use History: None Reported - Past Family History Mother Family Medical History: CVA/TIA, Myocardial Infarction ([place]) Additional Family Medical History / Comment(s): Mother is alive at age 73 with history of brain aneurysm, 3 strokes and 2 myocardial infarctions. Father Additional Family Medical History / Comment(s): Father at age 72 from a cardiac arrest thought to be due to a myocardial infarction. Sister(s) Additional Family Medical History / Comment(s): Patient has 2 sisters with no major medical problems. Patient does not have any brothers. Patient has 2 children ages 34 and 27 with no major medical problems. Patient is only family member with MS. Medications and Allergies Home Medications Medication Instructions Recorded Confirmed Type Albuterol Inhaler [Ventolin Hfa 2 puff INHALATION RT-Q6H PRN 02/20/14 05/06/18 History Inhaler] Aspirin 81 mg PO DAILY 02/20/14 05/06/18 History LORazepam [Ativan] 1 mg PO Q8H PRN 02/20/14 05/06/18 History Verapamil HCl 120 mg PO DAILY 02/20/14 05/06/18 History Gabapentin [Neurontin] 1,200 mg PO TID 08/19/16 05/06/18 History Butalb/APAP/Caff 50-325-40Mg 1 tab PO Q8H PRN 03/25/17 05/06/18 History [Fioricet 50-325-40] Memantine [Namenda] 10 mg PO AC-SUPPER 10/02/17 05/06/18 History Nystatin 100,000 Unit/ml Susp 500,000 unit PO QID #28 cup 10/05/17 05/06/18 Rx [Mycostatin Oral Susp] oxyCODONE-APAP 10-325MG [Percocet 1 tab PO TID PRN 01/28/18 05/06/18 History 10-325 mg] rOPINIRole HCL [Requip] 0.25 mg PO TID #90 tab 01/31/18 05/06/18 Rx Docusate [Colace] 100 mg PO DAILY PRN 04/02/18 05/06/18 History Ondansetron HCl [Zofran] 8 mg PO TID PRN 04/02/18 05/06/18 History Baclofen [Lioresal] 10 mg PO TID #60 tab 04/07/18 05/06/18 Rx Doxycycline [Vibramycin] 100 mg PO BID #6 cap 04/07/18 05/06/18 Rx Albuterol Nebulized [Ventolin 2.5 mg INHALATION RT-Q6H PRN 05/06/18 05/06/18 History Nebulized] Budesonide/Formoterol Fumarate 2 puff INHALATION RT-BID 05/06/18 05/06/18 History [Symbicort 160-4.5 Mcg Inhaler] Methocarbamol [Robaxin] 750 mg PO BID PRN 05/06/18 05/06/18 History Ranitidine HCl 150 mg PO BID 05/06/18 05/06/18 History Allergies Allergy/AdvReac Type Severity Reaction Status Date / Time No Known Allergies Allergy Verified 05/06/18 15:43 Physical Examination - Vital Signs Vital Signs: Vital Signs Temp Pulse Pulse Resp BP BP Pulse Ox 05/06/18 20:00 81 18 05/06/18 18:05 97.7 F 81 18 119/71 92 L 05/06/18 16:00 20 05/06/18 14:34 97.8 F 97 18 108/51 90 L Intake and Output 05/06/18 05/06/18 05/06/18 06:59 14:59 22:59 Intake Total 322 Balance 322 Intake: Amount of Fluid Infused ( 100 ml) Oral 222 Other: # Voids 1 Weight 96.615 kg 107.5 kg - Constitutional General appearance: average body habitus, cooperative - EENT EENT: PERRL, mucous membranes moist - Respiratory Respiratory: lungs clear, normal breath sounds - Cardiovascular Cardiovascular: regular rate, normal S1, normal S2 Extremities: no peripheral edema bilaterally - Gastrointestinal Gastrointestinal: normoactive bowel sounds - Integumentary Integumentary: normal - Neurologic Cranial nerve examination: PERRL, EOMI, VFF, V1/V2/V3 grossly intact, face symmetric, tongue midline, intact gag reflex, intact cough reflex, intact corneal reflex, normal palatal elevation Speech examination: intact Sensorimotor examination: intact Motor examination - right side: 4/5: biceps, triceps, wrist flexion, wrist extension, government teacher, hip flexors, knee extensors, dorsiflexion, toe extension (EHL) , plantarflexion Motor examination - left side: 4/5: biceps, triceps, wrist flexion, wrist extension, government teacher, hip flexors, knee extensors, dorsiflexion, toe extension (EHL) , plantarflexion Detailed sensory examination: intact Reflex and gait examination: intact Reflexes: 1+: ankle, bicep, knee, tricep - Musculoskeletal Musculoskeletal: no pain - Psychiatric Psychiatric: mood/affect appropriate, cooperative Results - Laboratory Findings CBC and BMP: 05/06/18 16:18 05/06/18 16:18 Abnormal Lab Findings: Abnormal Labs 05/06/18 05/06/18 16:18 16:18 WBC 14.2 H Neutrophils # 12.5 H Chloride 97 L Carbon Dioxide 35 H Glucose 141 H Assessment and Plan (1) Multiple sclerosis exacerbation Current Visit: Yes Status: Acute Code(s): G35 - MULTIPLE SCLEROSIS SNOMED Code(s): 359226078 (2) Fibromyalgia Current Visit: No Status: Acute Code(s): M79.7 - FIBROMYALGIA SNOMED Code( s): 961593798 (3) Generalized weakness Current Visit: No Status: Acute Code(s): R53.1 - WEAKNESS SNOMED Code(s): 63944362 (4) NSTEMI (non-ST elevated myocardial infarction) Current Visit: No Status: Acute Code(s): I21.4 - NON-ST ELEVATION (NSTEMI) MYOCARDIAL INFARCTION SNOMED Code(s): 07579271 Plan: This patient is a 52-year-old female who was admitted with acute MS exacerbation. She was treated for recent MS exacerbation back on 04/02/2018. She apparently was visiting with family during the holidays and may have overexerted herself. She was brought into the emergency room today with findings of stuttering speech and generalized weakness. She was given a dose of IV Solu-Medrol with no improvement. She is now been admitted to the hospital for acute MS exacerbation and will be started on IV Solu-Medrol 250 mg IV piggyback every 6 hours. She has been using Tecfidera as a primary treatment for MS condition. We will plan to treat her for 3 days of IV Solu- Medrol therapy. We will consult with physical therapy and speech therapy as well. Her overall prognosis at this time remains guarded. Time with Patient: Greater than 30
[2018-05-07] MEDS: oxyCODONE-APAP 10-325MG 1 EACH TAB PO PRN ×3 (04:35→21:20)
[2018-05-07] MEDS: methylPREDNISolone SOD SUCCI 250 MG in SODIUM CHLORIDE 0.9% 100 ML IVPB SCH ×4 (04:35→23:43)
[2018-05-07] MEDS: SYMBICORT 160-4.5 MCG INHALER INHALATION SCH ×2 (07:33→20:17)
[2018-05-07] MEDS: ALBUTEROL NEBULIZED 2.5 MG/3 ML INHALATION PRN ×4 (08:01→20:16)
[2018-05-07] MEDS: BUTALB/APAP/CAFF 50-325-40MG TAB PO PRN ×3 (09:15→23:42)
[2018-05-07] MEDS: DOXYCYCLINE 100 MG CAP PO SCH (09:16)
[2018-05-07] MEDS: ASPIRIN 81 MG PO SCH (09:16)
[2018-05-07] MEDS: NYSTATIN 100,000 UNIT/ML SUSP 500,000 UNIT/5 ML CUP PO SCH ×4 (09:16→21:21)
[2018-05-07] MEDS: NICOTINE 21MG/24HR PATCH TRANSDERM SCH (09:16)
[2018-05-07] MEDS: VERAPAMIL 40 MG TAB PO SCH (09:16)
[2018-05-07] MEDS: LORazepam 1 MG TAB PO PRN ×2 (09:16→17:20)
[2018-05-07] MEDS: BACLOFEN 10 MG TAB PO SCH ×3 (09:16→21:20)
[2018-05-07] MEDS: PANTOPRAZOLE 40 MG/10 ML VIAL IVP SCH (09:16)
[2018-05-07] MEDS: GABAPENTIN 400 MG CAP PO SCH ×3 (09:16→21:21)
[2018-05-07] MEDS: FAMOTIDINE 20 MG TAB PO SCH ×2 (09:17→21:20)
[2018-05-07 12:16] LABS: Glucose,Whole Blood 126 mg/dL (75-99)
[2018-05-07] MEDS: SENNOSIDES 8.6 MG TAB PO SCH ×2 (12:17→21:20)
[2018-05-07] MEDS: HYDROCHLOROTHIAZIDE 25 MG TAB PO SCH (12:49)
--- NOTE | 2018-05-07 13:26 | P.HPIM ---
History of Present Illness H&P Date: 05/07/18 This is a 52-year-old -[place] female patient of Dr. Tabares with past medical history of asthma, uterine cancer status post hysterectomy and radiation , fibromyalgia, COPD, chronic hypoxic respiratory failure on home O2, gastroesophageal reflux disease, hypertension, osteoarthritis and osteoporosis, MS currently on Tecfidera, after she was on Copaxone for quite sometime, she has been under the care of Dr. Ramirez, is also treated for chronic pain and undergoes frequent injections and including occipital nerve block. She was admitted in January 2018 for MS exacerbation and was also treated for elevated troponins without NC. She also had admission 04/02/2018 through 2017 for acute MS exacerbation and acute exacerbation of COPD. Patient has been on a long steroid taper and is currently at 20 mg daily. Patient is complaining of increased stuttering and numbness in her right hand with concern for MS flare. She states she has had some increased confusion and weakness in her whole body feeling numb. She states her vision in general has been horrible and getting worse. She is not having any problems urinating. Her bowel movements have been regular and is on the stool softener which will be continued and increased while here. She states she has been under a lot of stress and very busy over the holidays. Patient presented to [facility] emergency center for evaluation. Vital signs were stable, white count 14.2, hemoglobin 13.4, BUN 7 and creatinine 0.52. blood glucose 141. Creatinine 0.52. EKG was in normal sinus rhythm with no ST changes. Patient was admitted to the [facility] floor and consult with Dr. Chi has been obtained and patient has been started on Solu-Medrol 250 mg IV piggyback every 6 hours through May 09. Patient states that she normally walks with a cane or walker at her baseline and Dr. Ramirez has informed her that she may need to get a wheelchair soon. She is currently living in a two-story home with a basement and is looking for a single level home. Regarding smoking, she has only quit briefly and is smoking 1 pack per day. She did utilize nicotine patches initially after her discharge but because of increased stress from the holidays, she resumed smoking a pack a day. Patient was started on doxycycline yesterday for sinus infection. Review of Systems All systems: negative Constitutional: Reports fatigue, Reports weakness, Denies anorexia, Denies chills, Denies fever, Denies poor appetite, Denies weight loss Eyes: bilateral blurred vision, denies pain Ears, nose, mouth and throat: Reports nasal congestion, Reports sinus pain, Reports sinus pressure, Denies dysphagia, Denies headache, Denies hoarseness, Denies sore throat Cardiovascular: Denies chest pain, Denies decreased exercise tolerance, Denies dyspnea on exertion, Denies leg edema, Denies lightheadedness, Denies shortness of breath, Denies syncope Respiratory: Denies cough, Denies cough with sputum, Denies dyspnea, Denies excessive sputum, Denies hemoptysis, Denies home oxygen, Denies wheezing Gastrointestinal: Denies abdominal pain, Denies constipation, Denies diarrhea, Denies loss of appetite, Denies melena, Denies nausea, Denies vomiting Genitourinary: Denies difficulty voiding, Denies dysuria, Denies hematuria, Denies urgency, Denies urinary frequency Musculoskeletal: Reports gait dysfunction, Reports muscle weakness, Denies frequent falls, Denies myalgias Integumentary: Denies pruritus, Denies rash, Denies wounds Neurological: Reports balance difficulties, Reports change in speech, Reports confusion, Reports gait dysfunction, Reports numbness, Denies aphasia, Denies change in mentation, Denies change in smell/taste, Denies head injury, Denies headaches, Denies seizures, Denies weakness Psychiatric: Denies anxiety, Denies depression Endocrine: Denies fatigue, Denies weight change Past Medical History Past Medical History: Asthma, Cancer, COPD, Fibromyalgia, GERD/Reflux, Hypertension, Neurologic Disorder, Osteoarthritis (OA), Syncope Additional Past Medical History / Comment(s): Rheumatic fever, heart murmur, osteoporosis, chronic bronchitis, MS,vertigo, lexiscan stress test. 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 History of Any Multi-Drug Resistant Organisms: None Reported Past Surgical History: Bladder Surgery, Heart Catheterization, Hysterectomy Additional Past Surgical History / Comment(s): uterine cancer, radiation,NERVE BLOCKS Past Anesthesia/Blood Transfusion Reactions: No Reported Reaction Additional Past Anesthesia/Blood Transfusion Reaction / Comment(s): mild clausterphobia Past Psychological History: Anxiety, Depression Additional Psychological History / Comment(s): Pt resides alone. She uses a cane or walker .She has a private hire nurse aide who organizers her meds in project planner but pt manages her own meds,assists her with her ADLs. This aide also prepares meals/shopping. Pt does not drive, she has her friends take her to appts. Smoking Status: Current every day smoker Past Alcohol Use History: None Reported Additional Past Alcohol Use History / Comment(s): Patient is a smoker of less than one pack per day and has smoked on and off for 20 years. She denies any marijuana or street drug use. She is and lives alone. Past Drug Use History: None Reported - Past Family History Mother Family Medical History: CVA/TIA, Myocardial Infarction ([place]) Additional Family Medical History / Comment(s): Mother is alive at age 73 with history of brain aneurysm, 3 strokes and 2 myocardial infarctions. Father Additional Family Medical History / Comment(s): Father at age 72 from a cardiac arrest thought to be due to a myocardial infarction. Sister(s) Additional Family Medical History / Comment(s): Patient has 2 sisters with no major medical problems. Patient does not have any brothers. Patient has 2 children ages 34 and 27 with no major medical problems. Patient is only family member with MS. Medications and Allergies Home Medications Medication Instructions Recorded Confirmed Type Albuterol Inhaler [Ventolin Hfa 2 puff INHALATION RT-Q6H PRN 02/20/14 05/07/18 History Inhaler] Aspirin 81 mg PO DAILY 02/20/14 05/07/18 History LORazepam [Ativan] 1 mg PO Q8H PRN 02/20/14 05/07/18 History Verapamil HCl 120 mg PO DAILY 02/20/14 05/07/18 History Gabapentin [Neurontin] 1,200 mg PO TID 08/19/16 05/07/18 History Butalb/APAP/Caff 50-325-40Mg 1 tab PO Q8H PRN 03/25/17 05/07/18 History [Fioricet 50-325-40] Memantine [Namenda] 10 mg PO AC-SUPPER 10/02/17 05/07/18 History Nystatin 100,000 Unit/ml Susp 500,000 unit PO QID #28 cup 10/05/17 05/07/18 Rx [Mycostatin Oral Susp] oxyCODONE-APAP 10-325MG [Percocet 1 tab PO TID PRN 01/28/18 05/07/18 History 10-325 mg] rOPINIRole HCL [Requip] 0.25 mg PO TID #90 tab 01/31/18 05/07/18 Rx Docusate [Colace] 100 mg PO DAILY PRN 04/02/18 05/07/18 History Ondansetron HCl [Zofran] 8 mg PO TID PRN 04/02/18 05/07/18 History Baclofen [Lioresal] 10 mg PO TID #60 tab 04/07/18 05/07/18 Rx Doxycycline [Vibramycin] 100 mg PO BID #6 cap 04/07/18 05/07/18 Rx Albuterol Nebulized [Ventolin 2.5 mg INHALATION RT-Q6H PRN 05/06/18 05/07/18 History Nebulized] Budesonide/Formoterol Fumarate 2 puff INHALATION RT-BID 05/06/18 05/07/18 History [Symbicort 160-4.5 Mcg Inhaler] Methocarbamol [Robaxin] 750 mg PO BID PRN 05/06/18 05/07/18 History Ranitidine HCl 150 mg PO BID 05/06/18 05/07/18 History Cholecalciferol [Vitamin D3] 1,000 unit PO DAILY 05/07/18 05/07/18 History Hydrochlorothiazide 25 mg PO DAILY 05/07/18 05/07/18 History Multivitamins, Thera [Multivitamin 1 tab PO DAILY 05/07/18 05/07/18 History (formulary)] Nystatin [Nystop] 1 applic TOPICAL DAILY 05/07/18 05/07/18 History Allergies Allergy/AdvReac Type Severity Reaction Status Date / Time No Known Allergies Allergy Verified 05/06/18 15:43 Physical Exam Vitals: Vital Signs Temp Pulse Pulse Resp BP BP Pulse Ox 05/07/18 04:00 16 05/07/18 00:00 16 05/06/18 23:41 97.7 F 78 16 131/74 95 05/06/18 20:00 81 18 05/06/18 18:05 97.7 F 81 18 119/71 92 L 05/06/18 16:00 20 05/06/18 14:34 97.8 F 97 18 108/51 90 L Intake and Output 05/06/18 05/07/18 05/07/18 22:59 06:59 14:59 Intake Total 322 Balance 322 Intake: Amount of Fluid Infused ( 100 ml) Oral 222 Other: # Voids 1 3 Weight 107.5 kg General appearance: cooperative, no acute distress, morbidly obese, patient noticed to be stuttering - EENT Eyes: anicteric sclerae, EOMI, PERRLA, dentition normal, normal appearance ENT: hearing grossly normal, NA/AT, normal oropharynx - Neck occipital nerualgia , left, psotive tenderness, neg brudzinski, neg kernig Neck: normal ROM Thyroid: bilateral: normal size, negative: enlarged, firm, nodule - Respiratory Respiratory: bilateral: CTA, negative: diminished, dullness, rales, rhonchi - Cardiovascular Rhythm: regular Heart sounds: normal: S1, S2 Abnormal Heart Sounds: no systolic murmur, no diastolic murmur, no rub, no S3 Gallop, no S4 Gallop, no click, no other - Gastrointestinal General gastrointestinal: no absent bowel sounds, no decreased bowel sounds, no distended, no hepatomegaly, no hyperactive bowel sounds, normal bowel sounds, no organomegaly, no rigid, no scaphoid, soft, no splenomegaly, no tenderness, no umbilical hernia, no ventral hernia - Integumentary Integumentary: no calor, no cellulitis, no cyanotic, decreased turgor, no flushed, no jaundiced, normal, no normal turgor, no pale, no rash, no ulcer - Neurologic hypersomnia while being interviewed but easily awakens with voice Neurologic: CNII-XII intact - Musculoskeletal Musculoskeletal: generalized weakness, strength equal bilaterally - Psychiatric Psychiatric: A&O x's 3, appropriate affect, intact judgment & insight Results CBC & Chem 7: 05/06/18 16:18 05/06/18 16:18 Labs: Abnormal Lab Results - Last 24 Hours (Table) 05/06/18 05/06/18 Range/Units 16:18 16:18 WBC 14.2 H (3.8-10.6) k/uL Neutrophils # 12.5 H (1.3-7.7) k/uL Chloride 97 L (98-107) mmol/L Carbon Dioxide 35 H (22-30) mmol/L Glucose 141 H (74-99) mg/dL Thrombosis Risk Factor Assmnt - DVT/VTE Prophylaxis DVT/VTE Prophylaxis: Pharmacologic Prophylaxis ordered - Choose All That Apply Any of the Below Risk Factors Present?: Yes Each Factor Represents 1 point: Abnormal pulmonary function (COPD), Obesity ( BMI >25) Other Risk Factors: Yes Each Risk Factor Represents 3 Points: Family history of DVT/PE Thrombosis Risk Factor Assessment Total Risk Factor Score: 5 Thrombosis Risk Factor Assessment Level: High Risk Assessment and Plan Plan: 1. Acute exacerbation of relapsing remitting multiple sclerosis. Patient follows with Dr. Ramirez and is normally on Tecfidera 240 mg orally twice every day. Consult with Dr. Alon infante. Patient started on Solu-Medrol 250 mg every 6 hours. PT, OT, speech therapy evaluations and treatment. 2. COPD, stable without exacerbation. Continue albuterol every 6 hours as needed, Symbicort 2 puffs twice daily, doxycycline 100 mg twice daily. 3. Chronic pain and occipital neuralgia under the care of Dr. Ramirez. Continue gabapentin 1200 mg 3 times daily, Robaxin 750 mg twice daily, Percocet one 3 times daily as needed, Fioricet as needed, Namenda 10 mg at supper, Requip 0.25 mg 3 times daily. 4. Hypertension and hypertensive cardiovascular disease. Continue verapamil 120 mg orally once every day. 5. Obesity with possible obstructive sleep apnea and obesity hypoventilation syndrome. Recommend outpatient sleep study 6. Mild intermittent asthma and COPD. Continue nebulized treatment 4 times every day. Support with oxygen as needed. 7. Fibromyalgia. Continue gabapentin 1200 mg orally 3 times every day, continue Robaxin 750 mg orally 2 times every day. 8. ALLERGIC rhinitis, stable. 9. Recurrent depression. Off paroxetine. 10. Chronic tobacco use and dependence. Smoking cessation and counseling an increased risk of CAD, CVA, and malignancy. Continue nicotine patch 21 mg once every day. 11. Sinus infection. Patient was started on doxycycline yesterday. She states that Augmentin was worked better for her and antibiotics will be changed. 12. GI prophylaxis. Continue patient on pepcid 20 mg orally bid. 13. Memory loss, related to ms along with sleep disruption. Continue Namenda. 14. Restless leg syndrome. Continue Requip 0.25 mg 2 times daily 15. DVT prophylaxis. Heparin 5000 units subcutaneously every 8 hours, bilateral knee-high MAYUR hose. Patient admitted to the hospital for a minimum of 3 nights stay. Discharge plan: Most likely home Impression and plan of care have been directed as dictated by the signing physician. Elaine Nguyen nurse practitioner acting as scribe for signing physician.
[2018-05-07] MEDS: HEPARIN SODIUM,PORCINE 5,000 UNIT/ML 1 ML VIAL SQ SCH ×2 (15:43→23:43)
[2018-05-07 17:10] LABS: Glucose,Whole Blood 184 mg/dL (75-99)
[2018-05-07] MEDS: MEMANTINE 10 MG TAB PO SCH (17:19)
[2018-05-07] MEDS: INSULIN ASPART 100 UNIT/ML 1 ML 10 ML VIAL SQ SCH ×2 (17:20→21:21)
[2018-05-07] MEDS: PROMETHAZINE 25 MG TAB PO PRN (18:33)
--- NOTE | 2018-05-07 19:53 | P.PN ---
Subjective Progress Note Date: 05/07/18 This patient is admitted for treatment of acute MS exacerbation. She was seen in Neurology consultation yesterday and started of IV Solumedrol for acute treatment of her MS exacerbation. Patient has been under great deal of stress recently and this may have triggered her acute MS flare up. She states she has been doing better today but has been having trouble with her breathing. She has been receiving some breathing treatments as well. She has some signs of sinusitis and she has been started on antibiotic therapy as well. We recommend patient undergo 3 days of IV Solu-Medrol therapy for treatment of her acute MS flare up. She was able to work with physical therapy today as well. Depending on her progress over the weekend we will see if she is ready for discharge early next week. She does have history of underlying fibromyalgia and is currently on gabapentin 1200 mg 3 times a day. She also uses Robaxin 750 mg twice a day which has been of some help. She does suffer from chronic pain and she should continue on all of her current pain medications. We will continue to follow her progress closely during this admission. She does show improvement with her speech today with much less stuttering. Recommend she continue to work with physical therapy during this admission. Her overall prognosis at this time remains guarded. Objective - Vital Signs Vital signs: Vital Signs Temp 98.1 F 05/07/18 07:05 Pulse 68 05/07/18 08:19 Resp 18 05/07/18 07:05 BP 144/84 05/07/18 07:05 Pulse Ox 94 L 05/07/18 07:05 Intake & Output 05/06/18 05/07/18 05/07/18 18:59 06:59 18:59 Intake Total 322 240 Balance 322 240 Weight 107.5 kg Intake: Amount of Fluid Infused ( 100 ml) Oral 222 240 Other: Voiding Method Bedside Commode # Voids 1 3 - Exam Physical examination: PHYSICAL EXAMINATION: Patient is resting comfortably in bed. VITAL SIGNS: Blood pressure is [145/78]. Heart rate is [72]. Respiration is [18] . Temperature is [98.0]. HEENT: Head is atraumatic, neck is supple, there were no carotid bruits. CHEST: Lungs are clear to auscultation and percussion. CARDIAC: S1, S2 normal rate and rhythm. There is no murmur. ABDOMEN: Soft and nontender. Bowel sounds are present. EXTREMITIES: There is no pedal edema. Peripheral pulses are present. Neurological examination: Patient has a nonfocal neurological exam today. She has been able to ambulate in her room with the assistance of physical therapy. She does have generalized weakness and generalized diffuse pain secondary to her fibromyalgia. - Labs CBC & Chem 7: 05/06/18 16:18 05/06/18 16:18 Labs: Abnormal Lab Results - Last 24 Hours (Table) 05/06/18 05/06/18 05/07/18 Range/Units 16:18 16:18 12:13 WBC 14.2 H (3.8-10.6) k/uL Neutrophils # 12.5 H (1.3-7.7) k/uL Chloride 97 L (98-107) mmol/L Carbon Dioxide 35 H (22-30) mmol/L Glucose 141 H (74-99) mg/dL POC Glucose (mg/dL) 126 H (75-99) mg/dL Assessment and Plan (1) Multiple sclerosis exacerbation Current Visit: Yes Status: Acute Code(s): G35 - MULTIPLE SCLEROSIS SNOMED Code(s): 930721892 (2) Fibromyalgia Current Visit: No Status: Acute Code(s): M79.7 - FIBROMYALGIA SNOMED Code( s): 392907692 (3) Generalized weakness Current Visit: No Status: Acute Code(s): R53.1 - WEAKNESS SNOMED Code(s): 53153684 (4) NSTEMI (non-ST elevated myocardial infarction) Current Visit: No Status: Acute Code(s): I21.4 - NON-ST ELEVATION (NSTEMI) MYOCARDIAL INFARCTION SNOMED Code(s): 97939760 Plan: This patient is a 52-year-old -[place] female admitted to hospital for acute MS exacerbation. She has been started on IV Solu-Medrol 250 mg IV piggyback every 6 hours. We have recommended 3 day course of IV steroid therapy for her acute MS flareup. She has been under a great deal of stress recently and this may have caused her flare and admission to hospital. Would recommend she work with physical therapy to increase her ambulation. She is being treated for her respiratory symptoms and sinusitis as well. We will continue to follow her progress closely during this admission. Her overall prognosis at this time remains guarded.
[2018-05-07 20:42] LABS: Glucose,Whole Blood 169 mg/dL (75-99)
[2018-05-07] MEDS: AMOXIC-POT CLAV 875-125MG 1 EACH TAB PO SCH (21:20)
[2018-05-08] MEDS: PROMETHAZINE 25 MG TAB PO PRN ×3 (00:14→18:08)
[2018-05-08] MEDS: LORazepam 1 MG TAB PO PRN ×3 (01:51→22:46)
[2018-05-08 04:53] LABS: Hemoglobin A1C 7.1 % (4.0-6.0)
[2018-05-08] MEDS: methylPREDNISolone SOD SUCCI 250 MG in SODIUM CHLORIDE 0.9% 100 ML IVPB SCH ×3 (05:53→17:48)
[2018-05-08 06:37] LABS: Glucose,Whole Blood 194 mg/dL (75-99)
[2018-05-08] MEDS: SYMBICORT 160-4.5 MCG INHALER INHALATION SCH ×2 (07:19→20:45)
[2018-05-08] MEDS: ALBUTEROL NEBULIZED 2.5 MG/3 ML INHALATION PRN ×2 (07:19→20:45)
[2018-05-08 08:20] LABS: HCT 45.6 % (34.0-46.0); HGB 14.3 gm/dL (11.4-16.0); Hypochromasia Moderate; MCHC 31.4 g/dL (31.0-37.0); MCV 98.8 fL (80.0-100.0); Mean Platelet Volume 8.5; Platelet Count 249 k/uL (150-450); RBC 4.62 m/uL (3.80-5.40); RDW 14.5 % (11.5-15.5); WBC 21.2 k/uL (3.8-10.6)
[2018-05-08 08:24] LABS: Anion Gap 8 mmol/L; Blood Urea Nitrogen 15 mg/dL (7-17); Calcium 10.1 mg/dL (8.4-10.2); Carbon Dioxide 35 mmol/L (22-30); Chloride 99 mmol/L (98-107); Glucose 207 mg/dL (74-99); Potassium 3.6 mmol/L (3.5-5.1); Sodium 142 mmol/L (137-145)
[2018-05-08] MEDS: INSULIN ASPART 100 UNIT/ML 1 ML 10 ML VIAL SQ SCH ×4 (08:57→22:36)
[2018-05-08] MEDS: HEPARIN SODIUM,PORCINE 5,000 UNIT/ML 1 ML VIAL SQ SCH ×2 (08:57→15:18)
[2018-05-08] MEDS: FAMOTIDINE 20 MG TAB PO SCH ×2 (08:58→22:35)
[2018-05-08] MEDS: SENNOSIDES 8.6 MG TAB PO SCH ×2 (08:58→22:35)
[2018-05-08] MEDS: GABAPENTIN 400 MG CAP PO SCH ×3 (08:58→22:35)
[2018-05-08] MEDS: HYDROCHLOROTHIAZIDE 25 MG TAB PO SCH (08:58)
[2018-05-08] MEDS: BACLOFEN 10 MG TAB PO SCH ×3 (08:58→22:35)
[2018-05-08] MEDS: AMOXIC-POT CLAV 875-125MG 1 EACH TAB PO SCH ×2 (08:58→22:35)
[2018-05-08] MEDS: CHOLECALCIFEROL 1,000 UNIT TAB PO SCH (08:59)
[2018-05-08] MEDS: NICOTINE 21MG/24HR PATCH TRANSDERM SCH (08:59)
[2018-05-08] MEDS: NYSTATIN 100,000 UNIT/ML SUSP 500,000 UNIT/5 ML CUP PO SCH ×4 (08:59→22:35)
[2018-05-08] MEDS: ASPIRIN 81 MG PO SCH (08:59)
[2018-05-08] MEDS: NYSTATIN 100,000 UNIT/GM POWD 15 GM TOPICAL SCH (08:59)
[2018-05-08] MEDS: BUTALB/APAP/CAFF 50-325-40MG TAB PO PRN ×2 (09:14→18:09)
[2018-05-08] MEDS: oxyCODONE-APAP 10-325MG 1 EACH TAB PO PRN ×2 (09:14→18:08)
[2018-05-08] MEDS: PARoxetine 20 MG TAB PO SCH (10:38)
[2018-05-08] MEDS: VERAPAMIL 40 MG TAB PO SCH (10:38)
--- NOTE | 2018-05-08 10:49 | P.PN ---
Subjective Progress Note Date: 05/08/18 This is a 52-year-old -[place] female patient of Dr. Tabares with past medical history of asthma, uterine cancer status post hysterectomy and radiation , fibromyalgia, COPD, chronic hypoxic respiratory failure on home O2, gastroesophageal reflux disease, hypertension, osteoarthritis and osteoporosis, MS currently on Tecfidera, after she was on Copaxone for quite sometime, she has been under the care of Dr. Ramirez, is also treated for chronic pain and undergoes frequent injections and including occipital nerve block. She was admitted in January 2018 for MS exacerbation and was also treated for elevated troponins without UT. She also had admission 04/02/2018 through 2017 for acute MS exacerbation and acute exacerbation of COPD. Patient has been on a long steroid taper and is currently at 20 mg daily. Patient is complaining of increased stuttering and numbness in her right hand with concern for MS flare. She states she has had some increased confusion and weakness in her whole body feeling numb. She states her vision in general has been horrible and getting worse. She is not having any problems urinating. Her bowel movements have been regular and is on the stool softener which will be continued and increased while here. She states she has been under a lot of stress and very busy over the holidays. Patient presented to [facility] emergency center for evaluation. Vital signs were stable, white count 14.2, hemoglobin 13.4, BUN 7 and creatinine 0.52. blood glucose 141. Creatinine 0.52. EKG was in normal sinus rhythm with no ST changes. Patient was admitted to the [facility] floor and consult with Dr. Chi has been obtained and patient has been started on Solu-Medrol 250 mg IV piggyback every 6 hours through May 09. Patient states that she normally walks with a cane or walker at her baseline and Dr. Ramirez has informed her that she may need to get a wheelchair soon. She is currently living in a two-story home with a basement and is looking for a single level home. Regarding smoking, she has only quit briefly and is smoking 1 pack per day. She did utilize nicotine patches initially after her discharge but because of increased stress from the holidays, she resumed smoking a pack a day. Patient was started on doxycycline yesterday for sinus infection. 05/08: Patient states that she is coughing a lot and bringing up a clear/white sputum. She is asking for consult with pulmonary medicine which will be added. She states she is eating okay but has had some nausea. She is complaining of some pain under her right breast over her rib area that feels like a report burning type pain. She does state that she fell out of bed on Thursday morning and hit her shoulder. She denies any head injury. She does complain of headaches since then. She is continued on IV Solu-Medrol at 250 mg IV piggyback every 6 hours. She is followed by neurology. Review of Systems Constitutional: Reports fatigue, Reports weakness, Denies anorexia, Denies chills, Denies fever, Denies poor appetite, Denies weight loss Eyes: Reports bilateral blurred vision, denies pain Ears, nose, mouth and throat: Reports nasal congestion, Reports sinus pain, Reports sinus pressure, Denies dysphagia, Denies headache, Denies hoarseness, Denies sore throat Cardiovascular: Reports chest pain, Denies decreased exercise tolerance, Denies dyspnea on exertion, Denies leg edema, Denies lightheadedness, Denies shortness of breath, Denies syncope Respiratory: Reports cough, reports cough with sputum, reports dyspnea, Denies excessive sputum, Denies hemoptysis, Denies home oxygen, Denies wheezing Gastrointestinal: Denies abdominal pain, Denies constipation, Denies diarrhea, Denies loss of appetite, Denies melena, Denies nausea, Denies vomiting Genitourinary: Denies difficulty voiding, Denies dysuria, Denies hematuria, Denies urgency, Denies urinary frequency Musculoskeletal: Reports gait dysfunction, Reports muscle weakness, Denies frequent falls, Denies myalgias Integumentary: Denies pruritus, Denies rash, Denies wounds Neurological: Reports balance difficulties, Reports change in speech, Reports confusion, Reports gait dysfunction, Reports numbness, Denies aphasia, Denies change in mentation, Denies change in smell/taste, Denies head injury, Denies headaches, Denies seizures, Denies weakness Psychiatric: Denies anxiety, Denies depression Endocrine: Denies fatigue, Denies weight change Objective - Vital Signs Vital signs: Vital Signs Temp 97.9 F 05/08/18 08:00 Pulse 71 05/08/18 08:00 Resp 18 05/08/18 08:00 BP 120/80 05/08/18 08:00 Pulse Ox 92 L 05/08/18 08:00 Intake & Output 05/07/18 05/08/18 05/08/18 18:59 06:59 18:59 Intake Total 240 Balance 240 Intake: Oral 240 Other: Voiding Method Bedside Commode Toilet - Exam General appearance: cooperative, no acute distress, morbidly obese, patient noticed to be stuttering - EENT Eyes: anicteric sclerae, EOMI, PERRLA, dentition normal, normal appearance ENT: hearing grossly normal, NA/AT, normal oropharynx - Neck occipital nerualgia , left, psotive tenderness, neg brudzinski, neg kernig Neck: normal ROM Thyroid: bilateral: normal size, negative: enlarged, firm, nodule - Respiratory Respiratory: bilateral: CTA, negative: diminished, dullness, rales, rhonchi Hacking cough with white sputum production - Cardiovascular Rhythm: regular Heart sounds: normal: S1, S2 Abnormal Heart Sounds: no systolic murmur, no diastolic murmur, no rub, no S3 Gallop, no S4 Gallop, no click, no other - Gastrointestinal General gastrointestinal: no absent bowel sounds, no decreased bowel sounds, no distended, no hepatomegaly, no hyperactive bowel sounds, normal bowel sounds, no organomegaly, no rigid, no scaphoid, soft, no splenomegaly, no tenderness, no umbilical hernia, no ventral hernia - Integumentary Integumentary: no calor, no cellulitis, no cyanotic, decreased turgor, no flushed, no jaundiced, normal, no normal turgor, no pale, no rash, no ulcer - Neurologic hypersomnia while being interviewed but easily awakens with voice Neurologic: CNII-XII intact - Musculoskeletal Musculoskeletal: generalized weakness, strength equal bilaterally - Psychiatric Psychiatric: A&O x's 3, appropriate affect, intact judgment & insight - Labs CBC & Chem 7: 05/08/18 07:52 05/08/18 07:52 Labs: Abnormal Lab Results - Last 24 Hours (Table) 05/06/18 05/07/18 05/07/18 Range/Units 16:18 12:13 17:05 WBC (3.8-10.6) k/uL Carbon Dioxide (22-30) mmol/L Glucose (74-99) mg/dL POC Glucose (mg/dL) 126 H 184 H (75-99) mg/dL Hemoglobin A1c 7.1 H (4.0-6.0) % 05/07/18 05/08/18 05/08/18 Range/Units 20:41 06:35 07:52 WBC 21.2 H (3.8-10.6) k/uL Carbon Dioxide (22-30) mmol/L Glucose (74-99) mg/dL POC Glucose (mg/dL) 169 H 194 H (75-99) mg/dL Hemoglobin A1c (4.0-6.0) % 05/08/18 Range/Units 07:52 WBC (3.8-10.6) k/uL Carbon Dioxide 35 H (22-30) mmol/L Glucose 207 H (74-99) mg/dL POC Glucose (mg/dL) (75-99) mg/dL Hemoglobin A1c (4.0-6.0) % Assessment and Plan Plan: 1. Acute exacerbation of relapsing remitting multiple sclerosis. Patient follows with Dr. Ramirez and is normally on Tecfidera 240 mg orally twice every day. Consult with Dr. Alon infante. Patient started on Solu-Medrol 250 mg every 6 hours. PT, OT, speech therapy evaluations and treatment. 2. COPD with exacerbation. Continue albuterol every 6 hours as needed, Symbicort 2 puffs twice daily, Augmentin twice daily. Consult with Dr. Armando vyas. 3. Chronic pain and occipital neuralgia under the care of Dr. Ramirez. Continue gabapentin 1200 mg 3 times daily, Robaxin 750 mg twice daily, Percocet one 3 times daily as needed, Fioricet as needed, Namenda 10 mg at supper, Requip 0.25 mg 3 times daily. 4. Hypertension and hypertensive cardiovascular disease. Continue verapamil 120 mg orally once every day. 5. Obesity with possible obstructive sleep apnea and obesity hypoventilation syndrome. Recommend outpatient sleep study 6. Mild intermittent asthma and COPD. Continue nebulized treatment 4 times every day. Support with oxygen as needed. 7. Fibromyalgia. Continue gabapentin 1200 mg orally 3 times every day, continue Robaxin 750 mg orally 2 times every day. 8. ALLERGIC rhinitis, stable. 9. Recurrent depression. Continue paroxetine 40mg daily. 10. Chronic tobacco use and dependence. Smoking cessation and counseling an increased risk of CAD, CVA, and malignancy. Continue nicotine patch 21 mg once every day. 11. Sinus infection. Patient was started on doxycycline yesterday. She states that Augmentin was worked better for her and antibiotics will be changed. 12. GI prophylaxis. Continue patient on pepcid 20 mg orally bid. 13. Memory loss, related to ms along with sleep disruption. Continue Namenda. 14. Restless leg syndrome. Continue Requip 0.25 mg 2 times daily 15. DVT prophylaxis. Heparin 5000 units subcutaneously every 8 hours, bilateral knee-high MAYUR hose. Discharge plan: Most likely home Impression and plan of care have been directed as dictated by the signing physician. Elaine Nguyen nurse practitioner acting as scribe for signing physician.
[2018-05-08 11:47] LABS: Glucose,Whole Blood 177 mg/dL (75-99)
--- NOTE | 2018-05-08 12:08 | P.CNPUL ---
History of Present Illness Consult date: 05/08/18 Requesting physician: Erinn Beckett Reason for consult: dyspnea Chief complaint: Weakness, multiple sclerosis exacerbation History of present illness: This is a very pleasant 52-year-old female patient who follows with Dr. Tabares as her primary care physician. She has a history of multiple sclerosis, fibromyalgia, gastroesophageal reflux disease, hypertension, degenerative joint disease, rheumatic fever, osteoporosis. She also has a history of chronic bronchial asthma and follows with Dr. Rushing in our office for the same. She is maintained on Symbicort and albuterol. She presented here to the emergency room yesterday with complaints of increasing weakness and symptoms of her MS flare. She follows with Dr. Chavez in that regard. The ER did talk to him and the patient was started on IV steroids. She also has some complaints of increasing shortness of breath productive cough of clear sputum. We are consulted for the same. No chest x-ray done. Seen today in consultation in the observation unit. She is maintaining O2 saturations in the low 90s on room air. She's afebrile. Hemodynamically stable. Does have some occasional productive cough. No fever chills or night sweats. Current white count 21.2. Creatinine 0.55. She has been resumed on her Symbicort and albuterol. She is on empiric antibiotics in the form of Augmentin. She is receiving methylprednisolone 250 mg at 100 ML's per hour every 6 hours. Review of Systems Constitutional: Reports fatigue, Reports malaise, Reports weakness Eyes: denies blurred vision, denies decreased vision Ears: deny: decreased hearing Ears, nose, mouth and throat: Denies headache, Denies sore throat Cardiovascular: Reports dyspnea on exertion, Reports shortness of breath Respiratory: Reports cough, Reports cough with sputum, Reports dyspnea, Reports wheezing Gastrointestinal: Denies abdominal pain, Denies diarrhea, Denies nausea, Denies vomiting Genitourinary: Denies dysuria, Denies hematuria Musculoskeletal: Reports gait dysfunction, Reports limitation of motion Integumentary: Denies pruritus, Denies rash Neurological: Reports gait dysfunction, Reports lack of coordination, Reports weakness Psychiatric: Reports anxiety Endocrine: Denies fatigue, Denies weight change Hematologic/Lymphatic: Reports as per HPI Allergic/Immunologic: Reports as per HPI Past Medical History Past Medical History: Asthma, Cancer, COPD, Fibromyalgia, GERD/Reflux, Hypertension, Neurologic Disorder, Osteoarthritis (OA), Syncope Additional Past Medical History / Comment(s): Rheumatic fever, heart murmur, osteoporosis, chronic bronchitis, MS,vertigo, lexiscan stress test. pt stated she has had a pne vaccine but not sure of the date scenario writer unable to verify at time of admit. History of Any Multi-Drug Resistant Organisms: None Reported Past Surgical History: Bladder Surgery, Heart Catheterization, Hysterectomy Additional Past Surgical History / Comment(s): uterine cancer, radiation,NERVE BLOCKS Past Anesthesia/Blood Transfusion Reactions: No Reported Reaction Additional Past Anesthesia/Blood Transfusion Reaction / Comment(s): mild clausterphobia Past Psychological History: Anxiety, Depression Additional Psychological History / Comment(s): Pt resides alone. She uses a cane or walker .She has a private hire nurse aide who organizers her meds in case planner but pt manages her own meds,assists her with her ADLs. This aide also prepares meals/shopping. Pt does not drive, she has her friends take her to [employer]. Smoking Status: Current every day smoker Past Alcohol Use History: None Reported Additional Past Alcohol Use History / Comment(s): Patient is a smoker of less than one pack per day and has smoked on and off for 20 years. She denies any marijuana or street drug use. She is and lives alone. Past Drug Use History: None Reported - Past Family History Mother Family Medical History: CVA/TIA, Myocardial Infarction (NH) Additional Family Medical History / Comment(s): Mother is alive at age 73 with history of brain aneurysm, 3 strokes and 2 myocardial infarctions. Father Additional Family Medical History / Comment(s): Father at age 72 from a cardiac arrest thought to be due to a myocardial infarction. Sister(s) Additional Family Medical History / Comment(s): Patient has 2 sisters with no major medical problems. Patient does not have any brothers. Patient has 2 children ages 34 and 27 with no major medical problems. Patient is only family member with MS. Medications and Allergies Home Medications Medication Instructions Recorded Confirmed Type Albuterol Inhaler [Ventolin Hfa 2 puff INHALATION RT-Q6H PRN 02/20/14 05/07/18 History Inhaler] Aspirin 81 mg PO DAILY 02/20/14 05/07/18 History LORazepam [Ativan] 1 mg PO Q8H PRN 02/20/14 05/07/18 History Verapamil HCl 120 mg PO DAILY 02/20/14 05/07/18 History Gabapentin [Neurontin] 1,200 mg PO TID 08/19/16 05/07/18 History Butalb/APAP/Caff 50-325-40Mg 1 tab PO Q8H PRN 03/25/17 05/07/18 History [Fioricet 50-325-40] Memantine [Namenda] 10 mg PO AC-SUPPER 10/02/17 05/07/18 History Nystatin 100,000 Unit/ml Susp 500,000 unit PO QID #28 cup 10/05/17 05/07/18 Rx [Mycostatin Oral Susp] oxyCODONE-APAP 10-325MG [Percocet 1 tab PO TID PRN 01/28/18 05/07/18 History 10-325 mg] rOPINIRole HCL [Requip] 0.25 mg PO TID #90 tab 01/31/18 05/07/18 Rx Docusate [Colace] 100 mg PO DAILY PRN 04/02/18 05/07/18 History Ondansetron HCl [Zofran] 8 mg PO TID PRN 04/02/18 05/07/18 History Baclofen [Lioresal] 10 mg PO TID #60 tab 04/07/18 05/07/18 Rx Doxycycline [Vibramycin] 100 mg PO BID #6 cap 04/07/18 05/07/18 Rx Albuterol Nebulized [Ventolin 2.5 mg INHALATION RT-Q6H PRN 05/06/18 05/07/18 History Nebulized] Budesonide/Formoterol Fumarate 2 puff INHALATION RT-BID 05/06/18 05/07/18 History [Symbicort 160-4.5 Mcg Inhaler] Methocarbamol [Robaxin] 750 mg PO BID PRN 05/06/18 05/07/18 History Ranitidine HCl 150 mg PO BID 05/06/18 05/07/18 History Cholecalciferol [Vitamin D3] 1,000 unit PO DAILY 05/07/18 05/07/18 History Hydrochlorothiazide 25 mg PO DAILY 05/07/18 05/07/18 History Multivitamins, Thera [Multivitamin 1 tab PO DAILY 05/07/18 05/07/18 History (formulary)] Nystatin [Nystop] 1 applic TOPICAL DAILY 05/07/18 05/07/18 History Allergies Allergy/AdvReac Type Severity Reaction Status Date / Time No Known Allergies Allergy Verified 05/06/18 15:43 Physical Exam Vitals: Vital Signs Temp Pulse Pulse Resp BP Pulse Ox 05/08/18 08:00 97.9 F 71 18 120/80 92 L 05/08/18 07:40 66 05/08/18 07:20 66 05/08/18 03:21 18 05/08/18 00:00 18 05/07/18 23:08 97.5 F L 75 18 139/81 94 L 05/07/18 20:30 70 05/07/18 20:17 70 05/07/18 20:00 18 05/07/18 16:16 74 05/07/18 16:03 74 05/07/18 15:40 98.0 F 72 18 145/78 95 Intake and Output 05/07/18 05/08/18 05/08/18 22:59 06:59 14:59 Other: Voiding Method Toilet Toilet Toilet - Constitutional General appearance: morbidly obese, no acute distress - EENT Eyes: EOMI, PERRLA ENT: hearing grossly normal Ears: bilateral: normal - Neck Neck: normal ROM Carotids: bilateral: upstroke normal Thyroid: bilateral: normal size - Respiratory Respiratory: bilateral: diminished, wheezing - Cardiovascular Rhythm: regular Heart sounds: normal: S1, S2 - Gastrointestinal General gastrointestinal: normal bowel sounds - Integumentary Integumentary: normal turgor - Neurologic Neurologic: CNII-XII intact - Musculoskeletal Musculoskeletal: generalized weakness - Psychiatric Psychiatric: A&O x's 3, appropriate affect, intact judgment & insight Results - Laboratory Findings CBC and BMP: 05/08/18 07:52 05/08/18 07:52 Abnormal lab findings: Abnormal Labs 05/06/18 05/06/18 05/06/18 16:18 16:18 16:18 WBC 14.2 H Neutrophils # 12.5 H Chloride 97 L Carbon Dioxide 35 H Glucose 141 H POC Glucose (mg/dL) Hemoglobin A1c 7.1 H 05/07/18 05/07/18 05/07/18 12:13 17:05 20:41 WBC Neutrophils # Chloride Carbon Dioxide Glucose POC Glucose (mg/dL) 126 H 184 H 169 H Hemoglobin A1c 05/08/18 05/08/18 05/08/18 06:35 07:52 07:52 WBC 21.2 H Neutrophils # Chloride Carbon Dioxide 35 H Glucose 207 H POC Glucose (mg/dL) 194 H Hemoglobin A1c 05/08/18 11:46 WBC Neutrophils # Chloride Carbon Dioxide Glucose POC Glucose (mg/dL) 177 H Hemoglobin A1c Assessment and Plan Assessment: Pression: #1 Generalized weakness secondary to multiple sclerosis exacerbation. #2 Dyspnea secondary to mild exacerbation of chronic intermittent bronchial asthma. Her cuff #3 Chronic tobacco dependence. #4 Morbid obesity. #5 Hypertension. #6 Osteoarthritis. #7 Fibromyalgia. #8 Anxiety/depression. Plan: The patient was seen and evaluated by Dr. Roberts. We'll order a chest x-ray. Continue her Symbicort and albuterol. No significant shortness of breath. She will continue her IV Solu-Medrol per neurology recommendations. She is again educated regarding the importance of complete smoking cessation. A NicoDerm patch will be offered. We will continue to follow and make further recommendations based on her clinical status. I, the cosigning physician, performed a history & physical examination of the patient. Lungs sounds with faint end expiratory wheeze. Maintaining good O2 saturations in the 90s on room air. I discussed the assessment and plan of care with my nurse practitioner, Cydney Henning. I attest to the above note as dictated by her. Time with Patient: Greater than 30
[2018-05-08] MEDS: MULTIVITAMINS, THERA 1 EACH TAB PO SCH (12:49)
--- NOTE | 2018-05-08 13:04 | XR ---
EXAMINATION TYPE: XR chest 1V portable DATE OF EXAM: 05/08/2018 HISTORY: Dyspnea. REFERENCE: Previous study dated 04/02/2018. FINDINGS: The study is quite lordotic. The heart is enlarged. The lungs are clear. Pleural spaces are clear. IMPRESSION: CARDIOMEGALY.
[2018-05-08 17:21] LABS: Glucose,Whole Blood 153 mg/dL (75-99)
--- NOTE | 2018-05-08 17:31 | P.PN ---
Subjective Progress Note Date: 05/08/18 This patient is admitted for treatment of acute MS exacerbation. She was seen in Neurology consultation yesterday and started of IV Solumedrol for acute treatment of her MS exacerbation. Patient has been under great deal of stress recently and this may have triggered her acute MS flare up. She states she has been doing better today but has been having trouble with her breathing. She has been receiving some breathing treatments as well. She has some signs of sinusitis and she has been started on antibiotic therapy as well. We recommend patient undergo 3 days of IV Solu-Medrol therapy for treatment of her acute MS flare up. She was able to work with physical therapy today as well. Depending on her progress over the weekend we will see if she is ready for discharge early next week. She does have history of underlying fibromyalgia and is currently on gabapentin 1200 mg 3 times a day. She also uses Robaxin 750 mg twice a day which has been of some help. She does suffer from chronic pain and she should continue on all of her current pain medications. We will continue to follow her progress closely during this admission. She does show improvement with her speech today with much less stuttering. Patient had some productive cough yesterday with some shortness of breath. She was seen by pulmonary medicine today and resumed on Symbicort and albuterol. She is empirically on Augmentin for antibiotic coverage. She did undergo a chest x- ray results of which are pending. She has been given NicoDerm patch for treatment of her smoking habit. She is completing 2 days of IV Solu-Medrol therapy for acute MS exacerbation today. Recommend she continue to work with physical therapy during this admission. Her overall prognosis at this time remains guarded. Anticipate patient may be ready for discharge on Thursday to home. We will continue to follow her closely during this admission. Objective - Vital Signs Vital signs: Vital Signs Temp 97.9 F 05/08/18 08:00 Pulse 71 05/08/18 12:00 Resp 18 05/08/18 12:00 BP 120/80 05/08/18 08:00 Pulse Ox 92 L 05/08/18 08:00 Intake & Output 05/07/18 05/08/18 05/08/18 18:59 06:59 18:59 Intake Total 240 Balance 240 Intake: Oral 240 Other: Voiding Method Bedside Commode Toilet Toilet - Exam Physical examination: PHYSICAL EXAMINATION: Patient is resting comfortably in bed. VITAL SIGNS: Blood pressure is [126/80]. Heart rate is [71]. Respiration is [18] . Temperature is [97.7]. HEENT: Head is atraumatic, neck is supple, there were no carotid bruits. CHEST: Lungs are clear to auscultation and percussion. CARDIAC: S1, S2 normal rate and rhythm. There is no murmur. ABDOMEN: Soft and nontender. Bowel sounds are present. EXTREMITIES: There is no pedal edema. Peripheral pulses are present. Neurological examination: Patient has a nonfocal neurological exam today. She has been able to ambulate in her room with the assistance of physical therapy. She does have generalized weakness and generalized diffuse pain secondary to her fibromyalgia. - Labs CBC & Chem 7: 05/08/18 07:52 05/08/18 07:52 Labs: Abnormal Lab Results - Last 24 Hours (Table) 05/06/18 05/07/18 05/07/18 Range/Units 16:18 17:05 20:41 WBC (3.8-10.6) k/uL Carbon Dioxide (22-30) mmol/L Glucose (74-99) mg/dL POC Glucose (mg/dL) 184 H 169 H (75-99) mg/dL Hemoglobin A1c 7.1 H (4.0-6.0) % 05/08/18 05/08/18 05/08/18 Range/Units 06:35 07:52 07:52 WBC 21.2 H (3.8-10.6) k/uL Carbon Dioxide 35 H (22-30) mmol/L Glucose 207 H (74-99) mg/dL POC Glucose (mg/dL) 194 H (75-99) mg/dL Hemoglobin A1c (4.0-6.0) % 05/08/18 Range/Units 11:46 WBC (3.8-10.6) k/uL Carbon Dioxide (22-30) mmol/L Glucose (74-99) mg/dL POC Glucose (mg/dL) 177 H (75-99) mg/dL Hemoglobin A1c (4.0-6.0) % Assessment and Plan (1) Multiple sclerosis exacerbation Current Visit: Yes Status: Acute Code(s): G35 - MULTIPLE SCLEROSIS SNOMED Code(s): 949694575 (2) Fibromyalgia Current Visit: No Status: Acute Code(s): M79.7 - FIBROMYALGIA SNOMED Code( s): 594346432 (3) Generalized weakness Current Visit: No Status: Acute Code(s): R53.1 - WEAKNESS SNOMED Code(s): 53446485 (4) NSTEMI (non-ST elevated myocardial infarction) Current Visit: No Status: Acute Code(s): I21.4 - NON-ST ELEVATION (NSTEMI) MYOCARDIAL INFARCTION SNOMED Code(s): 87744440 Plan: This patient is seen today for neurological follow-up regarding history of recent MS exacerbation. She is currently on IV Solu-Medrol therapy. She has noted slight improvement with her MS conditions mostly affecting her stuttering speech and generalized weakness. She was complaining of shortness of breath with productive cough yesterday evening and was seen by pulmonary medicine today. She is to continue on Symbicort and albuterol. She is on Augmentin for empiric antibiotic coverage as well. Chest x-ray was done and results are pending. We recommended she complete her course of IV Solu-Medrol for treatment of her acute MS exacerbation and she will be reevaluated tomorrow. Patient hopefully may be considered for discharge home on Thursday with tapering doses of oral prednisone. Her overall prognosis at this time remains guarded.
[2018-05-08] MEDS: MEMANTINE 10 MG TAB PO SCH (17:48)
[2018-05-08 21:25] LABS: Glucose,Whole Blood 224 mg/dL (75-99)
[2018-05-09] MEDS: PROMETHAZINE 25 MG TAB PO PRN ×3 (00:30→16:07)
[2018-05-09] MEDS: methylPREDNISolone SOD SUCCI 250 MG in SODIUM CHLORIDE 0.9% 100 ML IVPB SCH ×3 (00:43→11:15)
[2018-05-09] MEDS: HEPARIN SODIUM,PORCINE 5,000 UNIT/ML 1 ML VIAL SQ SCH ×3 (00:44→16:07)
[2018-05-09] MEDS: oxyCODONE-APAP 10-325MG 1 EACH TAB PO PRN ×2 (02:54→14:07)
[2018-05-09] MEDS: BUTALB/APAP/CAFF 50-325-40MG TAB PO PRN ×2 (02:55→14:07)
[2018-05-09] MEDS: NYSTATIN 100,000 UNIT/ML SUSP 500,000 UNIT/5 ML CUP PO SCH ×3 (06:37→17:03)
[2018-05-09 06:51] LABS: Glucose,Whole Blood 149 mg/dL (75-99)
[2018-05-09] MEDS: ALBUTEROL NEBULIZED 2.5 MG/3 ML INHALATION PRN ×2 (07:02→10:51)
[2018-05-09] MEDS: SYMBICORT 160-4.5 MCG INHALER INHALATION SCH (07:02)
[2018-05-09] MEDS: CHOLECALCIFEROL 1,000 UNIT TAB PO SCH (08:10)
[2018-05-09] MEDS: BACLOFEN 10 MG TAB PO SCH ×2 (08:10→16:07)
[2018-05-09] MEDS: ASPIRIN 81 MG PO SCH (08:10)
[2018-05-09] MEDS: MULTIVITAMINS, THERA 1 EACH TAB PO SCH (08:10)
[2018-05-09] MEDS: VERAPAMIL 40 MG TAB PO SCH (08:10)
[2018-05-09] MEDS: HYDROCHLOROTHIAZIDE 25 MG TAB PO SCH (08:10)
[2018-05-09] MEDS: FAMOTIDINE 20 MG TAB PO SCH (08:10)
[2018-05-09] MEDS: AMOXIC-POT CLAV 875-125MG 1 EACH TAB PO SCH (08:10)
[2018-05-09] MEDS: PARoxetine 20 MG TAB PO SCH (08:11)
[2018-05-09] MEDS: SENNOSIDES 8.6 MG TAB PO SCH (08:11)
[2018-05-09] MEDS: GABAPENTIN 400 MG CAP PO SCH ×2 (08:11→16:06)
[2018-05-09] MEDS: LORazepam 1 MG TAB PO PRN (08:12)
[2018-05-09] MEDS: INSULIN ASPART 100 UNIT/ML 1 ML 10 ML VIAL SQ SCH ×3 (08:12→17:03)
[2018-05-09] MEDS: NICOTINE 21MG/24HR PATCH TRANSDERM SCH (08:12)
[2018-05-09] MEDS: NYSTATIN 100,000 UNIT/GM POWD 15 GM TOPICAL SCH (08:41)
--- NOTE | 2018-05-09 09:41 | P.DS ---
Providers Date of admission: 05/07/18 08:25 Expected date of discharge: 05/09/18 Attending physician: Erinn Beckett Consults: 05/06/18 17:29 Consult Physician Routine Consulting Provider: Sergo Chi Consult Reason/Comments: multiple sclerosis Do you want consulting provider notified?: Yes 05/08/18 09:57 Consult Physician Routine Consulting Provider: Panfilo Roberts Consult Reason/Comments: copd Do you want consulting provider notified?: Yes Primary care physician: Kilo Tabares [facility] Course: This is a 52-year-old -[place] female patient of Dr. Tabares with past medical history of asthma, uterine cancer status post hysterectomy and radiation , fibromyalgia, COPD, chronic hypoxic respiratory failure on home O2, gastroesophageal reflux disease, hypertension, osteoarthritis and osteoporosis, MS currently on Tecfidera, after she was on Copaxone for quite sometime, she has been under the care of Dr. Ramirez, is also treated for chronic pain and undergoes frequent injections and including occipital nerve block. She was admitted in January 2018 for MS exacerbation and was also treated for elevated troponins without [place]. She also had admission 04/02/2018 through 2017 for acute MS exacerbation and acute exacerbation of COPD. Patient has been on a long steroid taper and is currently at 20 mg daily. Patient is complaining of increased stuttering and numbness in her right hand with concern for MS flare. She states she has had some increased confusion and weakness in her whole body feeling numb. She states her vision in general has been horrible and getting worse. She is not having any problems urinating. Her bowel movements have been regular and is on the stool softener which will be continued and increased while here. She states she has been under a lot of stress and very busy over the holidays. Patient presented to emergency center for evaluation. Vital signs were stable, white count 14.2, hemoglobin 13.4, BUN 7 and creatinine 0.52. blood glucose 141. Creatinine 0.52. EKG was in normal sinus rhythm with no ST changes. Patient was admitted to the Medr floor and consult with Dr. Chi has been obtained and patient has been started on Solu-Medrol 250 mg IV piggyback every 6 hours through May 09. Patient states that she normally walks with a cane or walker at her baseline and Dr. Ramirez has informed her that she may need to get a wheelchair soon. She is currently living in a two-story home with a basement and is looking for a single level home. Regarding smoking, she has only quit briefly and is smoking 1 pack per day. She did utilize nicotine patches initially after her discharge but because of increased stress from the holidays, she resumed smoking a pack a day. Patient was started on doxycycline yesterday for sinus infection. 05/08: Patient states that she is coughing a lot and bringing up a clear/white sputum. She is asking for consult with pulmonary medicine which will be added. She states she is eating okay but has had some nausea. She is complaining of some pain under her right breast over her rib area that feels like a report burning type pain. She does state that she fell out of bed on Thursday morning and hit her shoulder. She denies any head injury. She does complain of headaches since then. She is continued on IV Solu-Medrol at 250 mg IV piggyback every 6 hours. She is followed by neurology. 05/09: Patient will be completing her course of IV steroids today at 11 AM dosing. Patient states that she is feeling much improved today. Patient is been afebrile, pulse ox 97% on 2 L nasal cannula blood pressure 135/82. Heart rate running in the 70s. Patient is undecided whether she is ready to go home today but would like to try. We will set up everything so the patient can go home later this afternoon. Patient will be discharged in stable condition. Discharge diagnoses: 1. Acute exacerbation of relapsing remitting multiple sclerosis. 2. COPD with exacerbation, exacerbation of chronic intermittent asthma. 3. Chronic pain and occipital neuralgia under the care of Dr. Ramirez. 4. Hypertension and hypertensive cardiovascular disease. 5. Obesity with possible obstructive sleep apnea and obesity hypoventilation syndrome. 6. Mild intermittent asthma and COPD. 7. Fibromyalgia. 8. ALLERGIC rhinitis, stable. 9. Recurrent depression. 10. Chronic tobacco use and dependence. 11. Sinus infection. 12. GI prophylaxis. 13. Memory loss, related to ms along with sleep disruption. 14. Restless leg syndrome. Discharge plan: home Impression and plan of care have been directed as dictated by the signing physician. Elaine Nguyen nurse practitioner acting as scribe for signing physician. Patient Condition at Discharge: Good Plan - Discharge Summary Discharge Rx Participant: No New Discharge Prescriptions: New Amoxic-Pot Clav 875-125Mg [Augmentin 875-125] 1 each PO Q12HR #10 tab Nicotine 21Mg/24Hr Patch [Habitrol] 1 patch TRANSDERM DAILY #30 patch PARoxetine [Paxil] 40 mg PO DAILY tab predniSONE 0 mg PO DIRECTED #40 tab Sennosides [Senokot] 8.6 mg PO BID #60 tablet Promethazine HCl [Phenergan Syrup] 5 ml PO Q12HR #120 ml Continue Albuterol Inhaler [Ventolin Hfa Inhaler] 2 puff INHALATION RT-Q6H PRN PRN Reason: Wheezing LORazepam [Ativan] 1 mg PO Q8H PRN PRN Reason: Anxiety Aspirin 81 mg PO DAILY Verapamil HCl 120 mg PO DAILY Gabapentin [Neurontin] 1,200 mg PO TID Butalb/APAP/Caff 50-325-40Mg [Fioricet 50-325-40] 1 tab PO Q8H PRN PRN Reason: Headache Memantine [Namenda] 10 mg PO AC-SUPPER Nystatin 100,000 Unit/ml Susp [Mycostatin Oral Susp] 500,000 unit PO QID #28 cup oxyCODONE-APAP 10-325MG [Percocet 10-325 mg] 1 tab PO TID PRN PRN Reason: pain rOPINIRole HCL [Requip] 0.25 mg PO TID #90 tab Ondansetron HCl [Zofran] 8 mg PO TID PRN PRN Reason: Nausea Docusate [Colace] 100 mg PO DAILY PRN PRN Reason: Constipation Baclofen [Lioresal] 10 mg PO TID #60 tab Albuterol Nebulized [Ventolin Nebulized] 2.5 mg INHALATION RT-Q6H PRN PRN Reason: Shortness Of Breath Ranitidine HCl 150 mg PO BID Methocarbamol [Robaxin] 750 mg PO BID PRN PRN Reason: Muscle Spasm Budesonide/Formoterol Fumarate [Symbicort 160-4.5 Mcg Inhaler] 2 puff INHALATION RT-BID Nystatin [Nystop] 1 applic TOPICAL DAILY Multivitamins, Thera [Multivitamin (formulary)] 1 tab PO DAILY Hydrochlorothiazide 25 mg PO DAILY Cholecalciferol [Vitamin D3] 1,000 unit PO DAILY Discontinued Doxycycline [Vibramycin] 100 mg PO BID #6 cap Discharge Medication List Albuterol Inhaler [Ventolin Hfa Inhaler] 2 puff INHALATION RT-Q6H PRN 02/20/14 [ History] Aspirin 81 mg PO DAILY 02/20/14 [History] LORazepam [Ativan] 1 mg PO Q8H PRN 02/20/14 [History] Verapamil HCl 120 mg PO DAILY 02/20/14 [History] Gabapentin [Neurontin] 1,200 mg PO TID 08/19/16 [History] Butalb/APAP/Caff 50-325-40Mg [Fioricet 50-325-40] 1 tab PO Q8H PRN 03/25/17 [ History] Memantine [Namenda] 10 mg PO AC-SUPPER 10/02/17 [History] Nystatin 100,000 Unit/ml Susp [Mycostatin Oral Susp] 500,000 unit PO QID #28 cup 10/05/17 [Rx] oxyCODONE-APAP 10-325MG [Percocet 10-325 mg] 1 tab PO TID PRN 01/28/18 [History] rOPINIRole HCL [Requip] 0.25 mg PO TID #90 tab 01/31/18 [Rx] Docusate [Colace] 100 mg PO DAILY PRN 04/02/18 [History] Ondansetron HCl [Zofran] 8 mg PO TID PRN 04/02/18 [History] Baclofen [Lioresal] 10 mg PO TID #60 tab 04/07/18 [Rx] Albuterol Nebulized [Ventolin Nebulized] 2.5 mg INHALATION RT-Q6H PRN 05/06/18 [ History] Budesonide/Formoterol Fumarate [Symbicort 160-4.5 Mcg Inhaler] 2 puff INHALATION RT-BID 05/06/18 [History] Methocarbamol [Robaxin] 750 mg PO BID PRN 05/06/18 [History] Ranitidine HCl 150 mg PO BID 05/06/18 [History] Cholecalciferol [Vitamin D3] 1,000 unit PO DAILY 05/07/18 [History] Hydrochlorothiazide 25 mg PO DAILY 05/07/18 [History] Multivitamins, Thera [Multivitamin (formulary)] 1 tab PO DAILY 05/07/18 [History ] Nystatin [Nystop] 1 applic TOPICAL DAILY 05/07/18 [History] Amoxic-Pot Clav 875-125Mg [Augmentin 875-125] 1 each PO Q12HR #10 tab 05/09/18 [ Rx] Nicotine 21Mg/24Hr Patch [Habitrol] 1 patch TRANSDERM DAILY #30 patch 05/09/18 [ Rx] PARoxetine [Paxil] 40 mg PO DAILY tab 05/09/18 [Rx] Promethazine HCl [Phenergan Syrup] 5 ml PO Q12HR #120 ml 05/09/18 [Rx] Sennosides [Senokot] 8.6 mg PO BID #60 tablet 05/09/18 [Rx] predniSONE 0 mg PO DIRECTED #40 tab 05/09/18 [Rx] Follow up Appointment(s)/Referral(s): [facility] [NON-STAFF] - As Needed [facility], [NON-STAFF] - 1-2 Days Carolynn Ramirez MD [Medical Doctor] - 1 Week Kilo Tabares MD [Primary Care Provider] - 1 Week
[2018-05-09 12:34] LABS: Glucose,Whole Blood 187 mg/dL (75-99)
[2018-05-09 14:52] VITALS: BP 137/76; PULSE 77; RESP 16; TEMP 98.1
[2018-05-09 16:53] LABS: Glucose,Whole Blood 137 mg/dL (75-99)
[2018-05-09] MEDS: MEMANTINE 10 MG TAB PO SCH (17:03)
== END 2018-05-09 18:26 | disposition home health service (06) | DRG 59 ==
LOC: EC 14:30 → 1SOBS 17:25 → OBSVTOIN 05-07 08:25 → 4MS4W 05-08 15:03
PROVIDERS: ADMIT Internal Medicine; ATTEND Internal Medicine
DX: G35 Multiple sclerosis (principal); Z68.41 Body mass index [BMI] 40.0-44.9, adult; F33.9 Major depressive disorder, recurrent, unspecified; J44.1 Chronic obstructive pulmonary disease with (acute) exacerbation; J45.21 Mild intermittent asthma with (acute) exacerbation; J96.11 Chronic respiratory failure with hypoxia; E66.2 Morbid (severe) obesity with alveolar hypoventilation; F17.210 Nicotine dependence, cigarettes, uncomplicated; F41.9 Anxiety disorder, unspecified; F98.5 Adult onset fluency disorder; G25.81 Restless legs syndrome; G89.29 Other chronic pain; I11.9 Hypertensive heart disease without heart failure; K21.9 Gastro-esophageal reflux disease without esophagitis; M19.90 Unspecified osteoarthritis, unspecified site; M54.81 Occipital neuralgia; M79.7 Fibromyalgia; M81.0 Age-related osteoporosis without current pathological fracture; W06.XXXA Fall from bed, initial encounter; Z79.51 Long term (current) use of inhaled steroids; Z79.82 Long term (current) use of aspirin; Z82.3 Family history of stroke; Z82.41 Family history of sudden cardiac death; Z82.49 Family history of ischemic heart disease and other diseases of the circulatory system; Z85.42 Personal history of malignant neoplasm of other parts of uterus; Z90.710 Acquired absence of both cervix and uterus; Z99.81 Dependence on supplemental oxygen; Z79.891 Long term (current) use of opiate analgesic; Z79.899 Other long term (current) drug therapy; J32.9 Chronic sinusitis, unspecified
CPT/HCPCS: 36415; 71045; 80048; 83036; 85025; 85027; 93005; 94640; 96365; 99285

== ENCOUNTER 2018-08-17 03:17 | Emergency (ER) | payer MEDICARE, OTHER ==
--- NOTE | 2018-08-17 03:39 | ED ---
Fall HPI - General Chief Complaint: Fall Stated Complaint: Weakness Time Seen by Provider: 08/17/18 03:25 Source: EMS Mode of arrival: EMS - History of Present Illness Initial Comments: Hudson a pleasant 52-year-old female with extensive past medical history most significant for MS for which she receives infusion therapy. Patient reports that she follows with Dr. Ramirez and is compliant with her monthly infusion therapy. She reports that over the past week she's been feeling fatigued, intermittent fevers and decreased appetite generalized body aches and has noticed that she feels she's having an MS flare. She reports that she feels she's weak all over she has had a couple of falls. 2 falls forward striking her face on the ground 2 falls backward striking the back of her head. She had no loss of consciousness with these falls. She reports that she feels she's not safe at home because of her worsening weakness she feels she needs to be treated for MS exacerbation. - Related Data Home Medications Medication Instructions Recorded Confirmed Albuterol Inhaler [Ventolin Hfa 2 puff INHALATION RT-Q6H PRN 02/20/14 05/07/18 Inhaler] Aspirin 81 mg PO DAILY 02/20/14 05/07/18 LORazepam [Ativan] 1 mg PO Q8H PRN 02/20/14 05/07/18 Verapamil HCl 120 mg PO DAILY 02/20/14 05/07/18 Gabapentin [Neurontin] 1,200 mg PO TID 08/19/16 05/07/18 Butalb/APAP/Caff 50-325-40Mg 1 tab PO Q8H PRN 03/25/17 05/07/18 [Fioricet 50-325-40] Memantine [Namenda] 10 mg PO AC-SUPPER 10/02/17 05/07/18 oxyCODONE-APAP 10-325MG [Percocet 1 tab PO TID PRN 01/28/18 05/07/18 10-325 mg] Docusate [Colace] 100 mg PO DAILY PRN 04/02/18 05/07/18 Ondansetron HCl [Zofran] 8 mg PO TID PRN 04/02/18 05/07/18 Albuterol Nebulized [Ventolin 2.5 mg INHALATION RT-Q6H PRN 05/06/18 05/07/18 Nebulized] Budesonide/Formoterol Fumarate 2 puff INHALATION RT-BID 05/06/18 05/07/18 [Symbicort 160-4.5 Mcg Inhaler] Methocarbamol [Robaxin] 750 mg PO BID PRN 05/06/18 05/07/18 Ranitidine HCl 150 mg PO BID 05/06/18 05/07/18 Cholecalciferol [Vitamin D3] 1,000 unit PO DAILY 05/07/18 05/07/18 Hydrochlorothiazide 25 mg PO DAILY 05/07/18 05/07/18 Multivitamins, Thera [Multivitamin 1 tab PO DAILY 05/07/18 05/07/18 (formulary)] Nystatin [Nystop] 1 applic TOPICAL DAILY 05/07/18 05/07/18 Previous Rx's Medication Instructions Recorded Nystatin 100,000 Unit/ml Susp 500,000 unit PO QID #28 cup 10/05/17 [Mycostatin Oral Susp] rOPINIRole HCL [Requip] 0.25 mg PO TID #90 tab 01/31/18 Baclofen [Lioresal] 10 mg PO TID #60 tab 04/07/18 Amoxic-Pot Clav 875-125Mg 1 each PO Q12HR #10 tab 05/09/18 [Augmentin 875-125] Nicotine 21Mg/24Hr Patch [Habitrol] 1 patch TRANSDERM DAILY #30 patch 05/09/18 PARoxetine [Paxil] 40 mg PO DAILY tab 05/09/18 Promethazine HCl [Phenergan Syrup] 5 ml PO Q12HR #120 ml 05/09/18 Sennosides [Senokot] 8.6 mg PO BID #60 tablet 05/09/18 predniSONE 0 mg PO DIRECTED #40 tab 05/09/18 Allergies Allergy/AdvReac Type Severity Reaction Status Date / Time No Known Allergies Allergy Verified 08/17/18 03:22 Review of Systems ROS Statement: Those systems with pertinent positive or pertinent negative responses have been documented in the HPI. ROS Other: All systems not noted in ROS Statement are negative. Past Medical History Past Medical History: Asthma, Cancer, COPD, Fibromyalgia, GERD/Reflux, Hypert ension, Neurologic Disorder, Osteoarthritis (OA), Syncope Additional Past Medical History / Comment(s): Rheumatic fever, heart murmur, osteoporosis, chronic bronchitis, MS,vertigo, lexiscan stress test. 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 History of Any Multi-Drug Resistant Organisms: None Reported Past Surgical History: Bladder Surgery, Heart Catheterization, Hysterectomy Additional Past Surgical History / Comment(s): uterine cancer, radiation,NERVE BLOCKS Past Anesthesia/Blood Transfusion Reactions: No Reported Reaction Additional Past Anesthesia/Blood Transfusion Reaction / Comment(s): mild clausterphobia Past Psychological History: Anxiety, Depression Smoking Status: Current every day smoker Past Alcohol Use History: None Reported Past Drug Use History: None Reported - Past Family History Mother Family Medical History: CVA/TIA, Myocardial Infarction (OR) Additional Family Medical History / Comment(s): Mother is alive at age 73 with history of brain aneurysm, 3 strokes and 2 myocardial infarctions. Father Additional Family Medical History / Comment(s): Father at age 72 from a cardiac arrest thought to be due to a myocardial infarction. Sister(s) Additional Family Medical History / Comment(s): Patient has 2 sisters with no major medical problems. Patient does not have any brothers. Patient has 2 children ages 34 and 27 with no major medical problems. Patient is only family member with MS. General Exam - General Exam Comments Initial Comments: Physical Exam GENERAL: Patient is well-developed and well-nourished. Patient is nontoxic and well-hydrated and is in no distress. HENT: Normocephalic Abrasion to the nose EYES: PERRL, EOMI PULMONARY: Unlabored respirations. CARDIOVASCULAR: There is a regular rate and rhythm without any murmurs gallops or rubs. ABDOMEN: Obese, nontender with normal bowel sounds. SKIN: Skin is warm to the touch, clear with no lesions or rashes and otherwise unremarkable. : Deferred NEUROLOGIC: Patient is alert and oriented x3. Moving all extremities spontaneously MUSCULOSKELETAL: Generalized weakness PSYCHIATRIC: Normal psychiatric evaluation. Limitations: no limitations Limitations: no limitations Course Vital Signs 08/17/18 08/17/18 03:18 06:50 Temperature 99.0 F Pulse Rate 76 109 H Respiratory 20 20 Rate Blood Pressure 122/74 119/81 O2 Sat by Pulse 99 93 L Oximetry Medical Decision Making - Medical Decision Making The patient was seen and evaluated, is a 52-year-old female with a history of MS which she feels is exacerbated at this time. She has been suffering from flulike illness with fevers body aches lack of appetite Labs ordered including influenza swab A CT of the head was ordered due to the patient's multiple falls Labs resulted with leukocytosis, normal kidney function however there is a evidence of significant transaminitis - I again asked the patient if she had been taking any extra tylenol and she is adamant that she has only taken her prescribed medications including percocet. Patient's influenza test is positive for Influenza A Patient care was discussed with Dr. Beckett who recommends the patient be transferred to [facility] so that she can be evaluated by neurology during the admission. Recommends Solu-Medrol 250 IV every 6 hours which is the implant she has responded to in the past. Patient care discussed with Dr Delgado from [facility] who accepts the transfer Patient care was discussed with Dr. Nguyen who recommends a Tylenol level and agrees with plan for transfer to [facility] - Lab Data Result diagrams: 08/17/18 04:17 08/17/18 04:17 Lab Results 08/17/18 08/17/18 08/17/18 Range/Units 04:17 04:17 04:17 WBC 13.5 H (3.8-10.6) k/uL RBC 4.45 (3.80-5.40) m/uL Hgb 13.4 (11.4-16.0) gm/dL Hct 42.5 (34.0-46.0) % MCV 95.4 (80.0-100.0) fL MCH 30.1 (25.0-35.0) pg MCHC 31.5 (31.0-37.0) g/dL RDW 14.0 (11.5-15.5) % Plt Count 193 (150-450) k/uL Neutrophils % 84 % Lymphocytes % 8 % Monocytes % 5 % Eosinophils % 2 % Basophils % 1 % Neutrophils # 11.4 H (1.3-7.7) k/uL Lymphocytes # 1.1 (1.0-4.8) k/uL Monocytes # 0.6 (0-1.0) k/uL Eosinophils # 0.2 (0-0.7) k/uL Basophils # 0.1 (0-0.2) k/uL Hypochromasia Slight PT 14.3 H (9.0-12.0) sec INR 1.4 H (<1.2) APTT 20.3 L (22.0-30.0) sec Sodium 137 (137-145) mmol/L Potassium 4.2 (3.5-5.1) mmol/L Chloride 93 L (98-107) mmol/L Carbon Dioxide 39 H (22-30) mmol/L Anion Gap 5 mmol/L BUN 15 (7-17) mg/dL Creatinine 0.54 (0.52-1.04) mg/dL Est GFR (CKD-EPI)AfAm >90 (>60 ml/min/1.73 sqM) Est GFR (CKD-EPI)NonAf >90 (>60 ml/min/1.73 sqM) Glucose 115 H (74-99) mg/dL Calcium 9.0 (8.4-10.2) mg/dL Total Bilirubin 0.6 (0.2-1.3) mg/dL AST 5573 H (14-36) U/L ALT 2370 H (9-52) U/L Alkaline Phosphatase 72 (38-126) U/L Total Protein 6.0 L (6.3-8.2) g/dL Albumin 3.9 (3.5-5.0) g/dL Urine Color Urine Appearance (Clear) Urine pH (5.0-8.0) Ur Specific [place] (1.001-1.035) Urine Protein (Negative) Urine Glucose (UA) (Negative) Urine Ketones (Negative) Urine Blood (Negative) Urine Nitrite (Negative) Urine Bilirubin (Negative) Urine Urobilinogen (<2.0) mg/dL Ur Leukocyte Esterase (Negative) Urine RBC (0-5) /hpf Urine WBC (0-5) /hpf Ur Squamous Epith Cells (0-4) /hpf Hyaline Casts (0-2) /lpf Urine Mucus (None) /hpf Acetaminophen ug/mL Influenza Type A RNA (Not Detectd) Influenza Type B (PCR) (Not Detectd) 08/17/18 08/17/18 08/17/18 Range/Units 04:17 04:40 06:05 WBC (3.8-10.6) k/uL RBC (3.80-5.40) m/uL Hgb (11.4-16.0) gm/dL Hct (34.0-46.0) % MCV (80.0-100.0) fL MCH (25.0-35.0) pg MCHC (31.0-37.0) g/dL RDW (11.5-15.5) % Plt Count (150-450) k/uL Neutrophils % % Lymphocytes % % Monocytes % % Eosinophils % % Basophils % % Neutrophils # (1.3-7.7) k/uL Lymphocytes # (1.0-4.8) k/uL Monocytes # (0-1.0) k/uL Eosinophils # (0-0.7) k/uL Basophils # (0-0.2) k/uL Hypochromasia PT (9.0-12.0) sec INR (<1.2) APTT (22.0-30.0) sec Sodium (137-145) mmol/L Potassium (3.5-5.1) mmol/L Chloride (98-107) mmol/L Carbon Dioxide (22-30) mmol/L Anion Gap mmol/L BUN (7-17) mg/dL Creatinine (0.52-1.04) mg/dL Est GFR (CKD-EPI)AfAm (>60 ml/min/1.73 sqM) Est GFR (CKD-EPI)NonAf (>60 ml/min/1.73 sqM) Glucose (74-99) mg/dL Calcium (8.4-10.2) mg/dL Total Bilirubin (0.2-1.3) mg/dL AST (14-36) U/L ALT (9-52) U/L Alkaline Phosphatase (38-126) U/L Total Protein (6.3-8.2) g/dL Albumin (3.5-5.0) g/dL Urine Color Yellow Urine Appearance Clear (Clear) Urine pH 6.0 (5.0-8.0) Ur Specific [place] 1.013 (1.001-1.035) Urine Protein 1+ H (Negative) Urine Glucose (UA) Negative (Negative) Urine Ketones Negative (Negative) Urine Blood Small H (Negative) Urine Nitrite Negative (Negative) Urine Bilirubin Negative (Negative) Urine Urobilinogen <2.0 (<2.0) mg/dL Ur Leukocyte Esterase Negative (Negative) Urine RBC <1 (0-5) /hpf Urine WBC 1 (0-5) /hpf Ur Squamous Epith Cells 1 (0-4) /hpf Hyaline Casts 3 H (0-2) /lpf Urine Mucus Rare H (None) /hpf Acetaminophen <10.0 ug/mL Influenza Type A RNA Detected H (Not Detectd) Influenza Type B (PCR) Not Detected (Not Detectd) Disposition Clinical Impression: Influenza, Transaminitis, Multiple sclerosis exacerbation, Fall Disposition: OTHER INSTITUTION NOT DEFINED Condition: Serious Referrals: Kilo Tabares MD [Primary Care Provider] - 1-2 days - Out of Hospital Transfer - Req. Specs Out of Hospital Transfer - Requested Specifics: Other Emergency Center ([facility])
[2018-08-17] MEDS: SODIUM CHLORIDE 0.9% 500 ML 500 ML IV SCH (04:25)
[2018-08-17 04:34] LABS: Basophils # (A) 0.1 k/uL (0-0.2); Basophils % (A) 1 %; Eosinophils # (A) 0.2 k/uL (0-0.7); Eosinophils % (A) 2 %; HCT 42.5 % (34.0-46.0); HGB 13.4 gm/dL (11.4-16.0); Hypochromasia Slight; Lymphocytes # (A) 1.1 k/uL (1.0-4.8); Lymphocytes % (A) 8 %; MCH 30.1 pg (25.0-35.0); MCHC 31.5 g/dL (31.0-37.0); MCV 95.4 fL (80.0-100.0); Mean Platelet Volume 7.8; Monocytes # (A) 0.6 k/uL (0-1.0); Monocytes % (A) 5 %; Neutrophils # (A) 11.4 k/uL (1.3-7.7); Neutrophils % (A) 84 %; Platelet Count 193 k/uL (150-450); RBC 4.45 m/uL (3.80-5.40); WBC 13.5 k/uL (3.8-10.6)
[2018-08-17 04:43] LABS: Albumin 3.9 g/dL (3.5-5.0); Alkaline Phosphatase 72 U/L (38-126); Anion Gap 5 mmol/L; Blood Urea Nitrogen 15 mg/dL (7-17); Carbon Dioxide 39 mmol/L (22-30); Chloride 93 mmol/L (98-107); Glucose 115 mg/dL (74-99); Potassium 4.2 mmol/L (3.5-5.1); Sodium 137 mmol/L (137-145); Total Bilirubin 0.6 mg/dL (0.2-1.3)
[2018-08-17 04:49] LABS: INR 1.4 (<1.2); Prothrombin Time 14.3 sec (9.0-12.0)
[2018-08-17 04:51] LABS: Partial Thromboplastin Time 20.3 sec (22.0-30.0)
[2018-08-17 05:10] LABS: Appearance,Urine Clear (Clear); Bilirubin,Urine Negative (Negative); Blood,Urine Small (Negative); Color,Urine Yellow; Glucose,Urine (UA) Negative (Negative); Hyaline Casts,Urine 3 /lpf (0-2); Ketones,Urine Negative (Negative); Leukocyte Esterase,Urine Negative (Negative); Mucus,Urine Rare /hpf; Nitrite,Urine Negative (Negative); Protein,Urine 1+ (Negative); RBC,Urine <1 /hpf (0-5); Specific Gravity,Urine 1.013 (1.001-1.035); Squamous Epithelial Cell,Urine 1 /hpf (0-4); Urobilinogen,Urine <2.0 mg/dL (<2.0)
[2018-08-17 05:17] LABS: ALT 2370 U/L (9-52); AST 5573 U/L (14-36)
--- NOTE | 2018-08-17 05:52 | CT ---
EXAM: CT Head Without Intravenous Contrast CLINICAL HISTORY: Headache TECHNIQUE: Axial computed tomography images of the head/brain without intravenous contrast. CTDI is 0.085, 0.085, 45.2, 21.3 mGy and DLP is 1669.3 mGy-cm. This CT exam was performed using one or more of the following dose reduction techniques: automated exposure control, adjustment of the mA and/or kV according to patient size, and/or use of iterative reconstruction technique. COMPARISON: CT head dated 08/19/2016 FINDINGS: Brain: No acute infarct, hemorrhage, mass or edema. No significant white matter disease. Ventricles: Unremarkable. No ventriculomegaly. Bones/joints: Unremarkable. No acute fracture. Soft tissues: Unremarkable. Sinuses: Minimal mucosal thickening in the paranasal sinuses. Mastoid air cells: Unremarkable as visualized. No mastoid effusion. IMPRESSION: No acute findings. EXAM: CT Cervical Spine Without Intravenous Contrast CLINICAL HISTORY: Headache TECHNIQUE: Axial computed tomography images of the cervical spine without intravenous contrast. CTDI is 0.085, 0.085, 45.2, 21.3 mGy and DLP is 1669.3 mGy-cm. This CT exam was performed using one or more of the following dose reduction techniques: automated exposure control, adjustment of the mA and/or kV according to patient size, and/or use of iterative reconstruction technique. COMPARISON: No relevant prior studies available. FINDINGS: Vertebrae: No acute fracture or traumatic malalignment. Straightening the normal cervical lordosis, likely positional. Discs/spinal canal/neural foramina: No acute findings. No spinal canal stenosis. Soft tissues: Unremarkable. IMPRESSION: No acute findings.
[2018-08-17] MEDS ORDERED: KETOROLAC 30 MG/ML 1 ML VIAL IVP STA (06:15)
[2018-08-17] MEDS ORDERED: methylPREDNISolone SOD SUCCI 125 MG/2 ML VIAL IV STA (06:46)
[2018-08-17 07:43] VITALS: BP 99/68; PULSE 89; RESP 18; TEMP 98.9
== END 2018-08-17 07:51 | disposition short-term general hospital (02) ==
LOC: EC 03:17
DX: J10.1 Influenza due to other identified influenza virus with other respiratory manifestations (principal); G35 Multiple sclerosis; R74.0 Nonspecific elevation of levels of transaminase and lactic acid dehydrogenase [LDH]; R00.0 Tachycardia, unspecified; J44.9 Chronic obstructive pulmonary disease, unspecified; K21.9 Gastro-esophageal reflux disease without esophagitis; I10 Essential (primary) hypertension; M79.7 Fibromyalgia; F41.9 Anxiety disorder, unspecified; F17.200 Nicotine dependence, unspecified, uncomplicated; Z79.82 Long term (current) use of aspirin; Z79.899 Other long term (current) drug therapy; Z95.5 Presence of coronary angioplasty implant and graft; Z85.42 Personal history of malignant neoplasm of other parts of uterus; Z92.3 Personal history of irradiation
CPT/HCPCS: 36415; 93005; 80053; 85025; 85610; 85730; 81001; 87040; 83520; 87502; 72125; 70450; 99285; 96374; 96375; 96361 ×2; J2930; J1885

== ENCOUNTER 2018-10-31 12:47 | Inpatient (IN) | payer MEDICARE, OTHER ==
[2018-10-31] MEDS ORDERED: SODIUM CHLORIDE 0.9% 500 ML 500 ML IV STA (13:37)
[2018-10-31] MEDS ORDERED: ASPIRIN 81 MG PO STA (13:37)
--- NOTE | 2018-10-31 13:39 | ED ---
General Adult HPI - General Chief complaint: Chest Pain Stated complaint: Chest Pain/Rt shoulder pain Time Seen by Provider: 10/31/18 13:31 Source: patient, EMS, RN notes reviewed Mode of arrival: EMS Limitations: no limitations - History of Present Illness Initial comments: 53-year-old female with a complicated past medical history including multiple s clerosis, asthma, COPD, fibromyalgia, hypertension presents to the emergency department for a chief complaint of chest pain. Patient has had chest pain for the past several days. States it is a tightness in the center of her chest. Patient does have shortness of breath as well. States that she has a productive cough. States she had a fever a few days ago but has not had a fever since. Patient also feels like she is having a multiple sclerosis flareup. States she has not been receiving the steroids that she has supposed to be. Patient has no other complaints at this time including abdominal pain, nausea or vomiting, headache, or visual changes. - Related Data Home Medications Medication Instructions Recorded Confirmed Albuterol Inhaler [Ventolin Hfa 2 puff INHALATION RT-Q6H PRN 02/20/14 10/31/18 Inhaler] Aspirin 81 mg PO DAILY 02/20/14 10/31/18 LORazepam [Ativan] 1 mg PO Q8H PRN 02/20/14 10/31/18 Verapamil HCl 120 mg PO DAILY 02/20/14 10/31/18 Gabapentin [Neurontin] 1,200 mg PO TID 08/19/16 10/31/18 Butalb/APAP/Caff 50-325-40Mg 1 tab PO Q8H PRN 03/25/17 10/31/18 [Fioricet 50-325-40] Memantine [Namenda] 10 mg PO AC-SUPPER 10/02/17 10/31/18 oxyCODONE-APAP 10-325MG [Percocet 1 tab PO TID PRN 01/28/18 10/31/18 10-325 mg] Docusate [Colace] 100 mg PO DAILY PRN 04/02/18 10/31/18 Albuterol Nebulized [Ventolin 2.5 mg INHALATION RT-Q6H PRN 05/06/18 10/31/18 Nebulized] Budesonide/Formoterol Fumarate 2 puff INHALATION RT-BID 05/06/18 10/31/18 [Symbicort 160-4.5 Mcg Inhaler] Cholecalciferol [Vitamin D3 (25 1,000 unit PO DAILY 05/07/18 10/31/18 Mcg = 1000 Iu)] Hydrochlorothiazide 25 mg PO DAILY 05/07/18 10/31/18 Multivitamins, Thera [Multivitamin 1 tab PO DAILY 05/07/18 10/31/18 (formulary)] Pantoprazole Sodium [Protonix] 40 mg PO BID 10/31/18 10/31/18 Previous Rx's Medication Instructions Recorded rOPINIRole HCL [Requip] 0.25 mg PO TID #90 tab 01/31/18 Baclofen [Lioresal] 10 mg PO TID #60 tab 04/07/18 PARoxetine [Paxil] 40 mg PO DAILY tab 05/09/18 Allergies Allergy/AdvReac Type Severity Reaction Status Date / Time No Known Allergies Allergy Verified 10/31/18 13:49 Review of Systems ROS Statement: Those systems with pertinent positive or pertinent negative responses have been documented in the HPI. ROS Other: All systems not noted in ROS Statement are negative. Past Medical History Past Medical History: Asthma, Cancer, COPD, Fibromyalgia, GERD/Reflux, Hypertension, Neurologic Disorder, Osteoarthritis (OA), Syncope Additional Past Medical History / Comment(s): Rheumatic fever, heart murmur, osteoporosis, chronic bronchitis, MS,vertigo, lexiscan stress test. 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 History of Any Multi-Drug Resistant Organisms: None Reported Past Surgical History: Bladder Surgery, Heart Catheterization, Hysterectomy Additional Past Surgical History / Comment(s): uterine cancer, radiation,NERVE BLOCKS Past Anesthesia/Blood Transfusion Reactions: No Reported Reaction Additional Past Anesthesia/Blood Transfusion Reaction / Comment(s): mild clausterphobia Past Psychological History: Anxiety, Depression Smoking Status: Current every day smoker Past Alcohol Use History: Occasional Past Drug Use History: None Reported - Past Family History Mother Family Medical History: CVA/TIA, Myocardial Infarction (ID) Additional Family Medical History / Comment(s): Mother is alive at age 73 with history of brain aneurysm, 3 strokes and 2 myocardial infarctions. Father Additional Family Medical History / Comment(s): Father at age 72 from a c ardiac arrest thought to be due to a myocardial infarction. Sister(s) Additional Family Medical History / Comment(s): Patient has 2 sisters with no major medical problems. Patient does not have any brothers. Patient has 2 children ages 34 and 27 with no major medical problems. Patient is only family member with MS. General Exam Limitations: no limitations General appearance: alert, in no apparent distress Head exam: Present: atraumatic, normocephalic, normal inspection Eye exam: Present: normal appearance, PERRL, EOMI. Absent: scleral icterus, conjunctival injection, periorbital swelling ENT exam: Present: normal exam, mucous membranes moist Neck exam: Present: normal inspection, full ROM. Absent: tenderness, meningismus, lymphadenopathy Respiratory exam: Present: normal lung sounds bilaterally. Absent: respiratory distress, wheezes, rales, rhonchi, stridor Cardiovascular Exam: Present: regular rate, normal rhythm, normal heart sounds. Absent: systolic murmur, diastolic murmur, rubs, gallop, clicks Neurological exam: Present: alert, oriented X3, CN II-XII intact, other (GCS 15) Psychiatric exam: Present: normal affect, normal mood Course Vital Signs 10/31/18 10/31/18 10/31/18 12:52 13:00 13:30 Temperature 98.3 F Pulse Rate 110 H 109 H 98 Respiratory 18 18 Rate Blood Pressure 115/89 115/89 110/87 O2 Sat by Pulse 94 L 95 100 Oximetry 10/31/18 10/31/18 10/31/18 14:00 14:30 14:40 Temperature Pulse Rate 95 90 89 Respiratory 16 Rate Blood Pressure 114/86 125/87 O2 Sat by Pulse 95 94 L Oximetry 10/31/18 10/31/18 14:52 15:00 Temperature Pulse Rate 86 97 Respiratory 18 Rate Blood Pressure 113/81 O2 Sat by Pulse 95 Oximetry EKG Findings - EKG Comments: EKG Findings:: Sinus tachycardia, ventricular rate 101, OR Interval 138, QTC 477 Medical Decision Making - Medical Decision Making 53-year-old female with a computed past medical history including multiple sclerosis, ID, asthma, COPD, fibromyalgia, hypertension presents for chest pain. Patient states this is a tightness in the center of her chest it has been present for several days. Patient does have shortness of breath as well as a productive cough. Mild wheezing noted on exam. Vitals showed patient was initially tachycardic and was 94% on 2 L. Patient has a strong history of COPD. CBC does show a white count of 14.7. Chest x-ray negative for consolidation. Possible viral disease. CMP shows a CO2 of 38 which is chronic. Troponin is within normal limits at 0.030. Patient has had elevated troponin in the past. However patient will be admitted for trending troponins as well as COPD exacerbation. Pain much improved upon reevaluation, patient requesting something to eat. - Lab Data Result diagrams: 10/31/18 14:00 10/31/18 14:00 Lab Results 10/31/18 10/31/18 10/31/18 Range/Units 14:00 14:00 14:00 WBC 14.7 H (3.8-10.6) k/uL RBC 4.97 (3.80-5.40) m/uL Hgb 15.3 (11.4-16.0) gm/dL Hct 49.5 H (34.0-46.0) % MCV 99.6 (80.0-100.0) fL MCH 30.7 (25.0-35.0) pg MCHC 30.8 L (31.0-37.0) g/dL RDW 16.0 H (11.5-15.5) % Plt Count 236 (150-450) k/uL Neutrophils % 74 % Lymphocytes % 17 % Monocytes % 5 % Eosinophils % 2 % Basophils % 0 % Neutrophils # 10.9 H (1.3-7.7) k/uL Lymphocytes # 2.5 (1.0-4.8) k/uL Monocytes # 0.7 (0-1.0) k/uL Eosinophils # 0.4 (0-0.7) k/uL Basophils # 0.0 (0-0.2) k/uL Hypochromasia Slight Macrocytosis Slight PT 10.0 (9.0-12.0) sec INR 0.9 (<1.2) APTT 20.9 L (22.0-30.0) sec D-Dimer 0.24 (<0.60) mg/L FEU Sodium 139 (137-145) mmol/L Potassium 4.2 (3.5-5.1) mmol/L Chloride 95 L (98-107) mmol/L Carbon Dioxide 38 H (22-30) mmol/L Anion Gap 6 mmol/L BUN 5 L (7-17) mg/dL Creatinine 0.51 L (0.52-1.04) mg/dL Est GFR (CKD-EPI)AfAm >90 (>60 ml/min/1.73 sqM) Est GFR (CKD-EPI)NonAf >90 (>60 ml/min/1.73 sqM) Glucose 95 (74-99) mg/dL Calcium 8.9 (8.4-10.2) mg/dL Magnesium 1.8 (1.6-2.3) mg/dL Total Bilirubin 0.6 (0.2-1.3) mg/dL AST 31 (14-36) U/L ALT 39 (9-52) U/L Alkaline Phosphatase 81 (38-126) U/L Troponin I (0.000-0.034) ng/mL Total Protein 6.0 L (6.3-8.2) g/dL Albumin 3.8 (3.5-5.0) g/dL 10/31/18 Range/Units 14:00 WBC (3.8-10.6) k/uL RBC (3.80-5.40) m/uL Hgb (11.4-16.0) gm/dL Hct (34.0-46.0) % MCV (80.0-100.0) fL MCH (25.0-35.0) pg MCHC (31.0-37.0) g/dL RDW (11.5-15.5) % Plt Count (150-450) k/uL Neutrophils % % Lymphocytes % % Monocytes % % Eosinophils % % Basophils % % Neutrophils # (1.3-7.7) k/uL Lymphocytes # (1.0-4.8) k/uL Monocytes # (0-1.0) k/uL Eosinophils # (0-0.7) k/uL Basophils # (0-0.2) k/uL Hypochromasia Macrocytosis PT (9.0-12.0) sec INR (<1.2) APTT (22.0-30.0) sec D-Dimer (<0.60) mg/L FEU Sodium (137-145) mmol/L Potassium (3.5-5.1) mmol/L Chloride (98-107) mmol/L Carbon Dioxide (22-30) mmol/L Anion Gap mmol/L BUN (7-17) mg/dL Creatinine (0.52-1.04) mg/dL Est GFR (CKD-EPI)AfAm (>60 ml/min/1.73 sqM) Est GFR (CKD-EPI)NonAf (>60 ml/min/1.73 sqM) Glucose (74-99) mg/dL Calcium (8.4-10.2) mg/dL Magnesium (1.6-2.3) mg/dL Total Bilirubin (0.2-1.3) mg/dL AST (14-36) U/L ALT (9-52) U/L Alkaline Phosphatase (38-126) U/L Troponin I 0.030 (0.000-0.034) ng/mL Total Protein (6.3-8.2) g/dL Albumin (3.5-5.0) g/dL Disposition Clinical Impression: COPD exacerbation, Leukocytosis, Cough Disposition: ADMITTED IP TO THIS HOSP Condition: Fair Referrals: Kilo Tabares MD [Primary Care Provider] - 1-2 days Time of Disposition: 15:37
[2018-10-31] MEDS ORDERED: IPRATROPIUM-ALBUTEROL 3 ML NEB INHALATION STA (14:07)
[2018-10-31 14:15] LABS: Basophils % (A) 0 %; Eosinophils # (A) 0.4 k/uL (0-0.7); Eosinophils % (A) 2 %; HCT 49.5 % (34.0-46.0); HGB 15.3 gm/dL (11.4-16.0); Hypochromasia Slight; Lymphocytes # (A) 2.5 k/uL (1.0-4.8); Lymphocytes % (A) 17 %; MCH 30.7 pg (25.0-35.0); MCHC 30.8 g/dL (31.0-37.0); MCV 99.6 fL (80.0-100.0); Macrocytosis Slight; Mean Platelet Volume 7.6; Monocytes # (A) 0.7 k/uL (0-1.0); Monocytes % (A) 5 %; Neutrophils # (A) 10.9 k/uL (1.3-7.7); Neutrophils % (A) 74 %; Platelet Count 236 k/uL (150-450); RBC 4.97 m/uL (3.80-5.40); WBC 14.7 k/uL (3.8-10.6)
[2018-10-31] MEDS ORDERED: MORPHINE SULFATE 4 MG/ML SYRINGE IVP STA (14:20)
[2018-10-31 14:23] LABS: African American GFR (CKD) >90 (>60 ml/min/1.73 sqM); Albumin 3.8 g/dL (3.5-5.0); Anion Gap 6 mmol/L; Blood Urea Nitrogen 5 mg/dL (7-17); Calcium 8.9 mg/dL (8.4-10.2); Carbon Dioxide 38 mmol/L (22-30); Chloride 95 mmol/L (98-107); Glucose 95 mg/dL (74-99); Sodium 139 mmol/L (137-145); Total Bilirubin 0.6 mg/dL (0.2-1.3)
[2018-10-31 14:29] LABS: AST 31 U/L (14-36); Magnesium 1.8 mg/dL (1.6-2.3); Potassium 4.2 mmol/L (3.5-5.1)
[2018-10-31 14:30] LABS: ALT 39 U/L (9-52); Alkaline Phosphatase 81 U/L (38-126)
[2018-10-31 14:37] LABS: D-Dimer 0.24 mg/L FEU (<0.60); INR 0.9 (<1.2)
[2018-10-31] MEDS ORDERED: methylPREDNISolone SOD SUCCI 125 MG/2 ML VIAL IV STA (14:41)
--- NOTE | 2018-10-31 14:49 | XR ---
EXAMINATION TYPE: XR chest 2V DATE OF EXAM: 10/31/2018 COMPARISON: 05/08/2018 HISTORY: 53-year-old female with chest pain TECHNIQUE: AP and lateral views FINDINGS: Heart upper limits of normal in size. Mild diffuse interstitial prominence. No consolidation or pleur al effusion. IMPRESSION: Borderline heart size. Chronic-appearing changes, possible bronchitis or asthma. Otherwise, no acute change seen.
[2018-10-31 14:56] LABS: Partial Thromboplastin Time 20.9 sec (22.0-30.0)
[2018-10-31] MEDS ORDERED: NITROGLYCERIN SL TABS 0.4 MG TAB SUBLINGUAL PRN (15:40)
[2018-10-31] MEDS ORDERED: MORPHINE SULFATE 2 MG/ML SYRINGE IVP PRN (15:41)
[2018-10-31] MEDS ORDERED: FAMOTIDINE 20 MG/2 ML VIAL IV STA (16:18)
[2018-10-31] MEDS ORDERED: methylPREDNISolone SOD SUCCI 125 MG/2 ML VIAL IV SCH (18:00)
[2018-10-31 20:39] VITALS: BMI 40.6
[2018-10-31] MEDS: IPRATROPIUM-ALBUTEROL 3 ML NEB INHALATION PRN (20:42)
[2018-10-31] MEDS ORDERED: ALBUTEROL NEBULIZED 2.5 MG/3 ML INHALATION PRN ×2 (21:11)
[2018-10-31] MEDS ORDERED: DOCUSATE 100 MG CAP PO PRN (21:11)
[2018-10-31] MEDS ORDERED: MEMANTINE 10 MG TAB PO SCH (21:15)
[2018-10-31] MEDS: NICOTINE 21MG/24HR PATCH TRANSDERM SCH (22:00)
[2018-10-31] MEDS: BACLOFEN 10 MG TAB PO SCH (22:01)
[2018-10-31] MEDS: GABAPENTIN 400 MG CAP PO SCH (22:01)
[2018-10-31] MEDS: HYDROCHLOROTHIAZIDE 25 MG TAB PO SCH (22:01)
[2018-11-01] MEDS ORDERED: methylPREDNISolone SOD SUCCI 125 MG/2 ML VIAL IV SCH
[2018-11-01 00:34] LABS: Cholesterol 125 mg/dL (<200); HDL Cholesterol 45 mg/dL (40-60); LDL Cholesterol,Calculated 66 mg/dL (0-99); Triglycerides 72 mg/dL (<150)
[2018-11-01] MEDS: methylPREDNISolone SOD SUCCI 250 MG in SODIUM CHLORIDE 0.9% 100 ML IVPB SCH ×6 (00:44→23:40)
[2018-11-01 06:53] LABS: Glucose,Whole Blood 120 mg/dL (75-99)
[2018-11-01] MEDS: SYMBICORT 160-4.5 MCG INHALER INHALATION SCH ×2 (07:33→19:40)
[2018-11-01] MEDS ORDERED: ASPIRIN 325 MG TAB PO SCH (09:00)
[2018-11-01] MEDS: PARoxetine 20 MG TAB PO SCH (11:01)
[2018-11-01] MEDS: ASPIRIN 81 MG PO SCH (11:01)
[2018-11-01] MEDS: VERAPAMIL SR 120 MG TABLET.ER PO SCH (11:01)
[2018-11-01] MEDS: BACLOFEN 10 MG TAB PO SCH ×3 (11:01→20:28)
[2018-11-01] MEDS: HYDROCHLOROTHIAZIDE 25 MG TAB PO SCH (11:01)
[2018-11-01] MEDS: NICOTINE 21MG/24HR PATCH TRANSDERM SCH (11:02)
[2018-11-01] MEDS: CHOLECALCIFEROL 1,000 UNIT TAB PO SCH (11:02)
[2018-11-01] MEDS: MULTIVITAMINS, THERA 1 EACH TAB PO SCH (11:02)
[2018-11-01] MEDS: GABAPENTIN 400 MG CAP PO SCH ×3 (11:02→20:28)
[2018-11-01] MEDS: PANTOPRAZOLE 40 MG TABLET PO SCH ×2 (11:02→17:12)
[2018-11-01] MEDS: oxyCODONE-APAP 10-325MG 1 EACH TAB PO PRN ×2 (11:07→20:26)
[2018-11-01] MEDS: BUTALB/APAP/CAFF 50-325-40MG TAB PO PRN (11:08)
[2018-11-01] MEDS: FLUTICASONE 50MCG/SPRAY NASAL 16GM EA NOSTRIL SCH (11:09)
[2018-11-01] MEDS: NYSTATIN 100,000 UNIT/ML SUSP 500,000 UNIT/5 ML CUP PO SCH ×4 (11:10→20:28)
[2018-11-01] MEDS: IPRATROPIUM-ALBUTEROL 3 ML NEB INHALATION PRN ×2 (11:21→19:26)
[2018-11-01 11:47] LABS: Appearance,Urine Clear (Clear); Bilirubin,Urine Negative (Negative); Blood,Urine Negative (Negative); Color,Urine Yellow; Glucose,Urine (UA) Negative (Negative); Ketones,Urine Negative (Negative); Leukocyte Esterase,Urine Negative (Negative); Nitrite,Urine Negative (Negative); PH, Urine 7.5 (5.0-8.0); Protein,Urine Negative (Negative); Specific Gravity,Urine 1.018 (1.001-1.035); Urobilinogen,Urine <2.0 mg/dL (<2.0)
[2018-11-01 11:52] LABS: Glucose,Whole Blood 119 mg/dL (75-99)
[2018-11-01] MEDS: INSULIN ASPART (NovoLOG) 100 UNIT/ML VIAL SQ SCH ×3 (12:36→20:28)
--- NOTE | 2018-11-01 12:42 | P.CRDCN ---
History of Present Illness History of present illness: This is a pleasant 53-year-old -[place] female past medical history significant for hypertension, multiple sclerosis, fibromyalgia, COPD, chronic nicotine dependence and asthma. She follows in the office with Dr. Rajan. We have been asked to see her in consultation secondary to chest discomfort. She presented to the hospital yesterday afternoon with symptoms of chest disc omfort. She states she was diagnosed with influenza A in August of this year and since that time she has not felt like herself. She suffered a fall last week 90 on the right side of her body causing significant musculoskeletal discomfort of the right arm and right leg. Starting on Thursday she felt a full sensation in the midsternal region she described it as a balloon being blown up in her chest and then being popped sending a sharp pain radiating from the chest through her entire body associated with right hand and right lower extremity tingling. She also has felt increasingly short of breath at times not associated with activity or exertion and has been coughing she states this is a productive cough with yellow sputum. She has been running fevers at home but has had no documented fe valentina since coming to the hospital. She is seen and examined resting comfortably lying flat in bed in no acute distress. She has no active chest pain at this time. EKG reveals sinus mechanism with no acute ST or T wave abnormalities noted. Chest x-ray is negative for an acute cardiopulmonary process with possible evidence of asthma or bronchitis chronically. Laboratory data reviewed and unremarkable. Current cardiac medications include verapamil 120 mg daily, hydrochlorothiazide 25 mg daily and aspirin 81 mg daily. Most recent echocardiogram obtained January 2018 reveals preserved LV systolic function with ejection fraction 55-60%. She underwent cardiac catheterization 2016 revealing normal coronary arteries, normal LVEDP and normal LV systolic function. At the time of my exam: CONSTITUTIONAL: Denies fever. Denies chills. EYES: Denies blurred vision. Denies vision changes. Denies eye pain. EARS, NOSE, MOUTH & THROAT: Denies headache. Denies sore throat. Denies ear pain. CARDIOVASCULAR: Denies chest pain. Denies shortness of breath. Denies orthopnea. Denies PND. Denies palpitations. RESPIRATORY: Complains of cough. GASTROINTESTINAL: Denies abdominal pain. Denies diarrhea. Denies constipation. Denies nausea. Denies vomiting. MUSCULOSKELETAL: Denies myalgias. INTEGUMENTARY: Denies pruitis. Denies rash. NEUROLOGIC: Denies numbness. Complains of right hand and right lower extremity tingling. Denies weakness. PSYCHIATRIC: Denies anxiety. Denies depression. ENDOCRINE: Denies fatigue. Denies weight change. Denies polydipsia. Denies polyurina. GENITOURINARY: Denies burning, hematuria or urgency with micturation. HEMATOLOGIC: Denies history of anemia. Denies bleeding. Blood pressure 140/89 heart rate 82 afebrile maintaining oxygen saturation on room air ENERAL: This is a 53 year-old -[place] female in no apparent distress at the time of my examination. HEENT: Head is atraumatic, normocephalic. Pupils are equal, round. Sclerae anicteric. Conjunctivae are clear. Mucous membranes of the mouth are moist. Neck is supple. There is no jugular venous distention. No carotid bruit is heard. LUNGS: Clear to auscultation no wheezes, rales or rhonchi. No chest wall tenderness is noted on palpation or with deep breathing. HEART: Regular rate and rhythm without murmurs, rubs or gallops. S1 and S2 heard. ABDOMEN: Soft, nontender. Bowel sounds are heard. No organomegaly noted. EXTREMITIES: No evidence of peripheral edema and no calf tenderness noted. VASCULAR: Radial and dorsalis pedis pulses palpated, no evidence of clubbing. NEUROLOGIC: Patient is awake, alert and oriented x3. ASSESSMENT Chest pain, atypical for angina. Am acute coronary event has been ruled out. Hypertension Leukocytosis History of multiple sclerosis Fibromyalgia COPD Chronic nicotine dependence PLAN An acute coronary event has been ruled out. Symptoms not suggestive of angina. Possibly related to recent fall with musculoskeletal injury. Obtain 2D echocardiogram and doppler study to assess cardiac structure and function. Continue aspirin, hydrochlorothiazide and verapamil as previously ordered. Ongoing medical management. Follow up with Dr. Rajan in 2 weeks for outpatient stress testing. Thank you kindly for this consultation. Nurse Practitioner note has been reviewed, I agree with a documented findings and plan of care. Patient was seen and examined. Past Medical History Past Medical History: Asthma, Cancer, COPD, Fibromyalgia, GERD/Reflux, Hypertension, Neurologic Disorder, Osteoarthritis (OA), Syncope Additional Past Medical History / Comment(s): Rheumatic fever, heart murmur, osteoporosis, chronic bronchitis, MS,vertigo, lexiscan stress test. History of Any Multi-Drug Resistant Organisms: None Reported Past Surgical History: Bladder Surgery, Heart Catheterization, Hysterectomy Additional Past Surgical History / Comment(s): uterine cancer, radiation,NERVE BLOCKS Past Anesthesia/Blood Transfusion Reactions: No Reported Reaction Additional Past Anesthesia/Blood Transfusion Reaction / Comment(s): mild clausterphobia Past Psychological History: Anxiety, Depression Additional Psychological History / Comment(s): Pt resides alone. She uses a cane or walker .She has a private hire nurse aide who organizers her meds in case planner but pt manages her own meds,assists her with her ADLs. This aide also prepares meals/shopping. Pt does not drive, she has her friends take her to [employer]. Pt states: "I feel comfortable with the way things are at home right now." Smoking Status: Current every day smoker Past Alcohol Use History: Occasional Additional Past Alcohol Use History / Comment(s): Patient is a smoker of less than one pack per day and has smoked on and off for 20 years. She denies any marijuana or street drug use. She is and lives alone. Past Drug Use History: None Reported - Past Family History Mother Family Medical History: CVA/TIA, Myocardial Infarction ([place]) Additional Family Medical History / Comment(s): Mother is alive at age 73 with history of brain aneurysm, 3 strokes and 2 myocardial infarctions. Father Additional Family Medical History / Comment(s): Father at age 72 from a cardiac arrest thought to be due to a myocardial infarction. Sister(s) Additional Family Medical History / Comment(s): Patient has 2 sisters with no major medical problems. Patient does not have any brothers. Patient has 2 children ages 34 and 27 with no major medical problems. Patient is only family member with MS. Medications and Allergies Home Medications Medication Instructions Recorded Confirmed Type Albuterol Inhaler [Ventolin Hfa 2 puff INHALATION RT-Q6H PRN 02/20/14 10/31/18 History Inhaler] Aspirin 81 mg PO DAILY 02/20/14 10/31/18 History LORazepam [Ativan] 1 mg PO Q8H PRN 02/20/14 10/31/18 History Verapamil HCl 120 mg PO DAILY 02/20/14 10/31/18 History Gabapentin [Neurontin] 1,200 mg PO TID 08/19/16 10/31/18 History Butalb/APAP/Caff 50-325-40Mg 1 tab PO Q8H PRN 03/25/17 10/31/18 History [Fioricet 50-325-40] Memantine [Namenda] 10 mg PO AC-SUPPER 10/02/17 10/31/18 History oxyCODONE-APAP 10-325MG [Percocet 1 tab PO TID PRN 01/28/18 10/31/18 History 10-325 mg] rOPINIRole HCL [Requip] 0.25 mg PO TID #90 tab 01/31/18 10/31/18 Rx Docusate [Colace] 100 mg PO DAILY PRN 04/02/18 10/31/18 History Baclofen [Lioresal] 10 mg PO TID #60 tab 04/07/18 10/31/18 Rx Albuterol Nebulized [Ventolin 2.5 mg INHALATION RT-Q6H PRN 05/06/18 10/31/18 History Nebulized] Budesonide/Formoterol Fumarate 2 puff INHALATION RT-BID 05/06/18 10/31/18 History [Symbicort 160-4.5 Mcg Inhaler] Cholecalciferol [Vitamin D3 (25 1,000 unit PO DAILY 05/07/18 10/31/18 History Mcg = 1000 Iu)] Hydrochlorothiazide 25 mg PO DAILY 05/07/18 10/31/18 History Multivitamins, Thera [Multivitamin 1 tab PO DAILY 05/07/18 10/31/18 History (formulary)] PARoxetine [Paxil] 40 mg PO DAILY tab 05/09/18 10/31/18 Rx Pantoprazole Sodium [Protonix] 40 mg PO BID 10/31/18 10/31/18 History Allergies Allergy/AdvReac Type Severity Reaction Status Date / Time No Known Allergies Allergy Verified 10/31/18 13:49 Physical Exam Vitals: Vital Signs Temp Pulse Pulse Resp BP BP Pulse Ox 11/01/18 03:40 98.0 F 77 15 118/76 97 11/01/18 02:51 70 14 10/31/18 23:48 70 14 10/31/18 23:36 97.9 F 94 14 95/58 97 10/31/18 20:51 85 10/31/18 20:44 86 10/31/18 20:00 98.1 F 92 17 123/83 93 L 10/31/18 19:30 82 18 103/81 95 10/31/18 19:00 92 111/75 10/31/18 18:30 83 103/57 10/31/18 18:00 82 102/75 10/31/18 17:00 85 120/75 10/31/18 16:30 86 108/77 10/31/18 16:24 17 10/31/18 16:00 80 116/82 95 10/31/18 15:30 92 112/73 94 L 10/31/18 15:00 97 113/81 95 10/31/18 14:52 86 18 10/31/18 14:40 89 16 10/31/18 14:30 90 125/87 94 L 10/31/18 14:00 95 114/86 95 10/31/18 13:30 98 110/87 100 10/31/18 13:00 109 H 18 115/89 95 10/31/18 12:52 98.3 F 110 H 18 115/89 94 L Intake and Output 10/31/18 11/01/18 11/01/18 22:59 06:59 14:59 Other: Voiding Method Toilet Toilet # Voids 1 1 Results 10/31/18 14:00 10/31/18 14:00 Cardiac Enzymes 10/31/18 10/31/18 10/31/18 Range/Units 14:00 14:00 19:37 AST 31 (14-36) U/L Troponin I 0.030 0.019 (0.000-0.034) ng/mL 11/01/18 Range/Units 01:44 AST (14-36) U/L Troponin I <0.012 (0.000-0.034) ng/mL Coagulation 10/31/18 Range/Units 14:00 PT 10.0 (9.0-12.0) sec APTT 20.9 L (22.0-30.0) sec Lipids 10/31/18 Range/Units 14:00 Triglycerides 72 (<150) mg/dL Cholesterol 125 (<200) mg/dL HDL Cholesterol 45 (40-60) mg/dL CBC 10/31/18 Range/Units 14:00 WBC 14.7 H (3.8-10.6) k/uL RBC 4.97 (3.80-5.40) m/uL Hgb 15.3 (11.4-16.0) gm/dL Hct 49.5 H (34.0-46.0) % Plt Count 236 (150-450) k/uL Comprehensive Metabolic Panel 10/31/18 Range/Units 14:00 Sodium 139 (137-145) mmol/L Potassium 4.2 (3.5-5.1) mmol/L Chloride 95 L (98-107) mmol/L Carbon Dioxide 38 H (22-30) mmol/L BUN 5 L (7-17) mg/dL Creatinine 0.51 L (0.52-1.04) mg/dL Glucose 95 (74-99) mg/dL Calcium 8.9 (8.4-10.2) mg/dL AST 31 (14-36) U/L ALT 39 (9-52) U/L Alkaline Phosphatase 81 (38-126) U/L Total Protein 6.0 L (6.3-8.2) g/dL Albumin 3.8 (3.5-5.0) g/dL Current Medications Generic Name Dose Route Start Last Admin Trade Name Freq PRN Reason Stop Dose Admin Acetaminophen/Butalbital/Caffeine 1 each 10/31/18 21:11 Fioricet 50-325-40 PO Q8H PRN Headache Albuterol Sulfate 2.5 mg 10/31/18 21:11 Ventolin Nebulized INHALATION RT-Q6H PRN Wheezing Albuterol Sulfate 2.5 mg 10/31/18 21:11 Ventolin Nebulized INHALATION RT-Q6H PRN Shortness Of Breath Albuterol/Ipratropium 3 ml 10/31/18 15:38 10/31/18 20:42 Duoneb 0.5 Mg-3 Mg/3 Ml Soln INHALATION 3 ml RT-Q4H PRN Administration Shortness Of Breath Or Wheezing Aspirin 325 mg 11/01/18 09:00 Aspirin PO DAILY ANDREAS Aspirin 81 mg 11/01/18 09:00 Aspirin PO DAILY ANDREAS Baclofen 10 mg 10/31/18 22:00 10/31/18 22:01 Lioresal PO 10 mg TID ANDREAS Administration Budesonide/Formoterol Fumarate 2 puff 11/01/18 08:00 11/01/18 07:33 Symbicort 160-4.5 Mcg Inhaler INHALATION 2 puff RT-BID ANDREAS Administration Cholecalciferol 1,000 unit 11/01/18 09:00 Vitamin D3 (25 Mcg = 1000 Iu) PO DAILY [facility] Docusate Sodium 100 mg 10/31/18 21:11 Colace PO DAILY PRN Constipation Gabapentin 1,200 mg 10/31/18 22:00 10/31/18 22:01 Neurontin PO 1,200 mg TID ANDREAS Administration Hydrochlorothiazide 25 mg 10/31/18 21:15 10/31/18 22:01 Hydrodiuril PO 25 mg DAILY [facility] Administration Methylprednisolone Sodium 104 mls @ 100 mls/hr 11/01/18 00:00 11/01/18 05:27 Succinate 250 mg/ Sodium IVPB 11/03/18 19:03 100 mls/hr Chloride Q6HR ANDREAS Administration Lorazepam 1 mg 10/31/18 21:11 Ativan PO Q8H PRN Anxiety Memantine 10 mg 10/31/18 21:15 10/31/18 22:01 Namenda PO 10 mg AC-SUPPER [facility] Administration Morphine Sulfate 2 mg 10/31/18 15:41 10/31/18 22:11 Morphine Sulfate (Inj) IVP 2 mg Q4H PRN Administration Pain/Discomfort Multivitamins 1 each 11/01/18 09:00 Theragran PO DAILY [facility] Nicotine 1 patch 10/31/18 21:30 10/31/18 22:00 Habitrol 21mg/24hr Patch TRANSDERM 1 patch DAILY [facility] Administration Nitroglycerin 0.4 mg 10/31/18 15:40 Nitrostat SUBLINGUAL Q5M PRN Chest Pain Oxycodone/Acetaminophen 1 each 10/31/18 21:11 Percocet 10-325 PO TID PRN pain Pantoprazole Sodium 40 mg 11/01/18 07:30 Protonix PO AC-BID [facility] Paroxetine HCl 40 mg 11/01/18 09:00 Paxil PO DAILY [facility] Ropinirole HCl 0.25 mg 10/31/18 22:00 10/31/18 22:01 Requip PO 0.25 mg TID [facility] Administration Verapamil HCl 120 mg 11/01/18 09:00 Isoptin Sr PO DAILY ANDREAS Intake and Output 10/31/18 11/01/18 11/01/18 22:59 06:59 14:59 Other: Voiding Method Toilet Toilet # Voids 1 1 10/31/18 14:00 10/31/18 14:00
--- NOTE | 2018-11-01 13:03 | XR ---
Right shoulder HISTORY: Trauma and pain 3 views of the right shoulder Hypertrophic changes are present at the acromioclavicular joint. Bone mineralization is reduced. Alig nment is maintained. Right lung apex as visualized is within normal limits. Possible distal acromial spur. IMPRESSION: No fracture or dislocation.
[2018-11-01] MEDS: LORazepam 1 MG TAB PO PRN ×2 (13:10→20:26)
--- NOTE | 2018-11-01 13:41 | ECHOF ---
Referral Reason: MEASUREMENTS -------- HEIGHT: 160.0 cm WEIGHT: 103.9 kg BP: 118/76 RVIDd: 3.3 cm (< 3.3) IVSd: 1.3 cm (0.6 - 1.1) LVIDd: 4.0 cm (3.9 - 5.3) LVPWd: 1.5 cm (0.6 - 1.1) IVSs: 1.9 cm LVIDs: 2.6 cm LVPWs: 1.9 cm LAESV Index (A-L): 22.56 ml/m Ao Diam: 2.7 cm (2.0 - 3.7) AV Cusp: 2.1 cm (1.5 - 2.6) LA Diam: 3.1 cm (2.7 - 3.8) MV EXCURSION: 16.659 mm (> 18.000) MV EF SLOPE: 100 mm/s (70 - 150) EPSS: 1.0 cm MV E Vargas: 0.98 m/s MV DecT: 202 ms MV A Vargas: 0.93 m/s MV E/A Ratio: 1.05 RAP: 5.00 mmHg RVSP: 14.63 mmHg FINDINGS -------- Sinus rhythm. This was a technically difficult study with suboptimal views. The left ventricular size is normal. There is moderate concentric left ventricular hypertrophy. O verall left ventricular systolic function is normal with, an EF between 55 - 60 %. The diastolic fi lling pattern is normal for the age of the patient 13.19. The right ventricle is mildly enlarged. The left atrial size is normal. Normal LA size by volume 22+/-6 ml/m2. The right atrial size is normal. Lumason used The aortic valve is trileaflet and appears structurally normal. The mitral valve is normal. There is trace mitral regurgitation. Mild tricuspid regurgitation present. Right ventricular systolic pressure is normal at < 35 mmHg. There is no pulmonic regurgitation present. The aortic root size is normal. IVC Not well visulized. There is no pericardial effusion. CONCLUSIONS -------- 1. Sinus rhythm. 2. This was a technically difficult study with suboptimal views. 3. The left ventricular size is normal. 4. There is moderate concentric left ventricular hypertrophy. 5. Overall left ventricular systolic function is normal with, an EF between 55 - 60 %. 6. The diastolic filling pattern is normal for the age of the patient 13.19 7. The right ventricle is mildly enlarged. 8. The left atrial size is normal. 9. Normal LA size by volume 22+/-6 ml/m2. 10. The right atrial size is normal. 11. Lumason used 12. The aortic valve is trileaflet and appears structurally normal. 13. The mitral valve is normal. 14. There is trace mitral regurgitation. 15. Mild tricuspid regurgitation present. 16. Right ventricular systolic pressure is normal at < 35 mmHg. 17. There is no pulmonic regurgitation present. 18. The aortic root size is normal. 19. IVC Not well visulized. 20. There is no pericardial effusion. [employer]: Shazia May RDCS
--- NOTE | 2018-11-01 14:19 | P.HPIM ---
History of Present Illness H&P Date: 11/01/18 This is a 53-year-old -Maltese female patient of Dr. Tabares with past medical history of asthma, uterine cancer status post hysterectomy and radiation, fibromyalgia, COPD, chronic hypoxic respiratory failure on home O2, gastroesophageal reflux disease, hypertension, osteoarthritis and osteoporosis, MS currently on Ocrevus, after she was on Copaxone and Tecfidera for quite sometime, she has been under the care of Dr. Ramirez, is also treated for chronic pain and undergoes frequent injections and including occipital nerve block. She has had previous admissions for MS exacerbation as well as COPD exacerbation. Patient is complaining of MS flare. She states she has had generalized weakness and had a fall on . She states she may have hit her head but she did have a headache before the fall. She denies having any dizziness. She states she has a buzzing feeling between both ears. She states she had a fever up to 102.3. She complains of cough with sputum production. She has some tingling in her right arm and right shoulder pain. No leg involvement. She did undergo an MRI scheduled by Dr. Ramirez in his office on Thursday. Patient started on Ocrevus in July but there is concern that she would not be able to tolerate it she developed a fever 2 days following. It is normally provided every 6 hours but due to her progressive numbness of the Donnell, neurology is planning on every 5 months. Patient presented to [facility] emergency center for e valuation. Vital signs were stable, chest x-ray was negative for acute cardiopulmonary process with possible evidence of asthma or bronchitis chronically. White count 14.7, hemoglobin 15.3, BUN 5 and creatinine 0.51. blood glucose 94. EKG was in normal sinus rhythm with no ST changes. Patient will be admitted to the [facility] floor for MS exacerbation. Neurology consult has been requested and cardiology is following for chest pain. Patient has been started on Solu-Medrol 250 mg IV piggyback every 6 hours. Review of Systems Constitutional: Reports as per HPI, Reports chills, Reports fatigue, Reports fever, Reports lethargy, Reports malaise, Reports poor appetite, Reports weakness Ears, nose, mouth and throat: Reports nasal congestion, Reports vertigo, Denies dysphagia Cardiovascular: Reports lightheadedness, Denies chest pain, Denies decreased exercise tolerance, Denies dyspnea on exertion Respiratory: Denies cough, Denies cough with sputum, Denies dyspnea, Denies e xcessive sputum, Denies hemoptysis, Denies home oxygen Gastrointestinal: Denies abdominal pain, Denies loss of appetite, Denies nausea, Denies vomiting Genitourinary: Denies urinary frequency Musculoskeletal: Reports gait dysfunction, Reports muscle weakness, Denies myalgias Integumentary: Denies pruritus, Denies rash, Denies wounds Neurological: Reports change in speech, Reports tingling, Reports vertigo, Reports weakness, Denies aphasia, Denies change in mentation, Denies confusion, Denies double vision, Denies seizures Psychiatric: Denies anxiety, Denies depression Past Medical History Past Medical History: Asthma, Cancer, COPD, Fibromyalgia, GERD/Reflux, Hypertension, Neurologic Disorder, Osteoarthritis (OA), Syncope Additional Past Medical History / Comment(s): Rheumatic fever, heart murmur, osteoporosis, chronic bronchitis, MS,vertigo, lexiscan stress test. History of Any Multi-Drug Resistant Organisms: None Reported Past Surgical History: Bladder Surgery, Heart Catheterization, Hysterectomy Additional Past Surgical History / Comment(s): uterine cancer, radiation,NERVE BLOCKS Past Anesthesia/Blood Transfusion Reactions: No Reported Reaction Additional Past Anesthesia/Blood Transfusion Reaction / Comment(s): mild clausterphobia Past Psychological History: Anxiety, Depression Additional Psychological History / Comment(s): Pt resides alone. She uses a cane or walker .She has a private hire nurse aide who organizers her meds in strategic planner but pt manages her own meds,assists her with her ADLs. This aide also prepares meals/shopping. Pt does not drive, she has her friends take her to appts. Pt states: "I feel comfortable with the way things are at home right now." Smoking Status: Current every day smoker Past Alcohol Use History: Occasional Additional Past Alcohol Use History / Comment(s): Patient is a smoker of less than one pack per day and has smoked on and off for 20 years. She denies any marijuana or street drug use. She is and lives alone. Past Drug Use History: None Reported - Past Family History Mother Family Medical History: CVA/TIA, Myocardial Infarction ([place]) Additional Family Medical History / Comment(s): Mother is alive at age 73 with history of brain aneurysm, 3 strokes and 2 myocardial infarctions. Father Additional Family Medical History / Comment(s): Father at age 72 from a cardiac arrest thought to be due to a myocardial infarction. Sister(s) Additional Family Medical History / Comment(s): Patient has 2 sisters with no major medical problems. Patient does not have any brothers. Patient has 2 children ages 34 and 27 with no major medical problems. Patient is only family member with MS. Medications and Allergies Home Medications Medication Instructions Recorded Confirmed Type Albuterol Inhaler [Ventolin Hfa 2 puff INHALATION RT-Q6H PRN 02/20/14 10/31/18 History Inhaler] Aspirin 81 mg PO DAILY 02/20/14 10/31/18 History LORazepam [Ativan] 1 mg PO Q8H PRN 02/20/14 10/31/18 History Verapamil HCl 120 mg PO DAILY 02/20/14 10/31/18 History Gabapentin [Neurontin] 1,200 mg PO TID 08/19/16 10/31/18 History Butalb/APAP/Caff 50-325-40Mg 1 tab PO Q8H PRN 03/25/17 10/31/18 History [Fioricet 50-325-40] Memantine [Namenda] 10 mg PO AC-SUPPER 10/02/17 10/31/18 History oxyCODONE-APAP 10-325MG [Percocet 1 tab PO TID PRN 01/28/18 10/31/18 History 10-325 mg] rOPINIRole HCL [Requip] 0.25 mg PO TID #90 tab 01/31/18 10/31/18 Rx Docusate [Colace] 100 mg PO DAILY PRN 04/02/18 10/31/18 History Baclofen [Lioresal] 10 mg PO TID #60 tab 04/07/18 10/31/18 Rx Albuterol Nebulized [Ventolin 2.5 mg INHALATION RT-Q6H PRN 05/06/18 10/31/18 History Nebulized] Budesonide/Formoterol Fumarate 2 puff INHALATION RT-BID 05/06/18 10/31/18 History [Symbicort 160-4.5 Mcg Inhaler] Cholecalciferol [Vitamin D3 (25 1,000 unit PO DAILY 05/07/18 10/31/18 History Mcg = 1000 Iu)] Hydrochlorothiazide 25 mg PO DAILY 05/07/18 10/31/18 History Multivitamins, Thera [Multivitamin 1 tab PO DAILY 05/07/18 10/31/18 History (formulary)] PARoxetine [Paxil] 40 mg PO DAILY tab 05/09/18 10/31/18 Rx Pantoprazole Sodium [Protonix] 40 mg PO BID 10/31/18 10/31/18 History Allergies Allergy/AdvReac Type Severity Reaction Status Date / Time No Known Allergies Allergy Verified 10/31/18 13:49 Physical Exam Vitals: Vital Signs Temp Pulse Pulse Resp BP BP Pulse Ox 11/01/18 08:00 98.1 F 67 17 147/84 95 11/01/18 03:40 98.0 F 77 15 118/76 97 11/01/18 02:51 70 14 10/31/18 23:48 70 14 10/31/18 23:36 97.9 F 94 14 95/58 97 10/31/18 20:51 85 10/31/18 20:44 86 10/31/18 20:00 98.1 F 92 17 123/83 93 L 10/31/18 19:30 82 18 103/81 95 10/31/18 19:00 92 111/75 10/31/18 18:30 83 103/57 10/31/18 18:00 82 102/75 10/31/18 17:00 85 120/75 10/31/18 16:30 86 108/77 10/31/18 16:24 17 10/31/18 16:00 80 116/82 95 10/31/18 15:30 92 112/73 94 L 10/31/18 15:00 97 113/81 95 10/31/18 14:52 86 18 10/31/18 14:40 89 16 10/31/18 14:30 90 125/87 94 L 10/31/18 14:00 95 114/86 95 10/31/18 13:30 98 110/87 100 10/31/18 13:00 109 H 18 115/89 95 10/31/18 12:52 98.3 F 110 H 18 115/89 94 L Intake and Output 10/31/18 11/01/18 11/01/18 22:59 06:59 14:59 Other: Voiding Method Toilet Toilet # Voids 1 1 General appearance: cooperative, no acute distress, morbidly obese, patient noticed to be stuttering - EENT Eyes: anicteric sclerae, EOMI, PERRLA, dentition normal, normal appearance ENT: hearing grossly normal, NA/AT, normal oropharynx - Neck occipital nerualgia , left, psotive tenderness, neg brudzinski, neg kernig Neck: normal ROM Thyroid: bilateral: normal size, negative: enlarged, firm, nodule - Respiratory Respiratory: bilateral: CTA, negative: diminished, dullness, rales, rhonchi - Cardiovascular Rhythm: regular Heart sounds: normal: S1, S2 Abnormal Heart Sounds: no systolic murmur, no diastolic murmur, no rub, no S3 Gallop, no S4 Gallop, no click, no other - Gastrointestinal General gastrointestinal: no absent bowel sounds, no decreased bowel sounds, no distended, no hepatomegaly, no hyperactive bowel sounds, normal bowel sounds, no organomegaly, no rigid, no scaphoid, soft, no splenomegaly, no tenderness, no umbilical hernia, no ventral hernia - Integumentary Integumentary: no calor, no cellulitis, no cyanotic, decreased turgor, no flushed, no jaundiced, normal, no normal turgor, no pale, no rash, no ulcer - Neurologic hypersomnia while being interviewed but easily awakens with voice Neurologic: CNII-XII intact - Musculoskeletal Musculoskeletal: generalized weakness, strength equal bilaterally - Psychiatric Psychiatric: A&O x's 3, appropriate affect, intact judgment & insight Results CBC & Chem 7: 10/31/18 14:00 10/31/18 14:00 Labs: Abnormal Lab Results - Last 24 Hours (Table) 10/31/18 10/31/18 10/31/18 Range/Units 14:00 14:00 14:00 WBC 14.7 H (3.8-10.6) k/uL Hct 49.5 H (34.0-46.0) % MCHC 30.8 L (31.0-37.0) g/dL RDW 16.0 H (11.5-15.5) % Neutrophils # 10.9 H (1.3-7.7) k/uL APTT 20.9 L (22.0-30.0) sec Chloride 95 L (98-107) mmol/L Carbon Dioxide 38 H (22-30) mmol/L BUN 5 L (7-17) mg/dL Creatinine 0.51 L (0.52-1.04) mg/dL POC Glucose (mg/dL) (75-99) mg/dL Total Protein 6.0 L (6.3-8.2) g/dL 11/01/18 Range/Units 06:51 WBC (3.8-10.6) k/uL Hct (34.0-46.0) % MCHC (31.0-37.0) g/dL RDW (11.5-15.5) % Neutrophils # (1.3-7.7) k/uL APTT (22.0-30.0) sec Chloride (98-107) mmol/L Carbon Dioxide (22-30) mmol/L BUN (7-17) mg/dL Creatinine (0.52-1.04) mg/dL POC Glucose (mg/dL) 120 H (75-99) mg/dL Total Protein (6.3-8.2) g/dL Thrombosis Risk Factor Assmnt - DVT/VTE Prophylaxis DVT/VTE Prophylaxis: Pharmacologic Prophylaxis ordered - Choose All That Apply Each Factor Represents 1 point: Age 41-60 years, Obesity (BMI >25) Each Risk Factor Represents 2 Points: Malignancy Thrombosis Risk Factor Assessment Total Risk Factor Score: 4 Thrombosis Risk Factor Assessment Level: Moderate Risk Assessment and Plan Plan: 1. Acute exacerbation of relapsing remitting multiple sclerosis. Patient follows with Dr. Ramirez and is normally on Ocrevus. Consult with neurology. Patient started on Solu-Medrol 250 mg every 6 hours. PT, OT, speech therapy evaluations and treatment. 2. Chest pain. Cardiology consult appreciated. Chest pain OR skeletal in origin. 3. On nasal congestion and chronic seasonal ALLERGIES. Nasacort added. 4. Chronic pain and occipital neuralgia under the care of Dr. Ramirez. Continue gabapentin 1200 mg 3 times daily, Percocet one 3 times daily as needed, Fioricet as needed, Namenda 10 mg twice daily, Requip 0.25 mg 3 times daily. 5. Hypertension and hypertensive cardiovascular disease. Continue verapamil 120 mg orally once every day. 6. Obesity with possible obstructive sleep apnea and obesity hypoventilation syndrome. Recommend outpatient sleep study 7. Mild intermittent asthma and COPD. Continue nebulized treatment 4 times every day. Support with oxygen as needed. 8. Fibromyalgia. Continue gabapentin 1200 mg orally 3 times every day. 8. ALLERGIC rhinitis, stable. 9. Recurrent depression. Continue Paxil 40 mg daily. 10. Chronic tobacco use and dependence. Smoking cessation and counseling an increased risk of CAD, CVA, and malignancy. Continue nicotine patch 21 mg once every day. 11. Sinus infection. Patient was started on doxycycline yesterday. She states that Augmentin was worked better for her and antibiotics will be changed. 12. GI prophylaxis. Continue patient on pepcid 20 mg orally bid. 13. Memory loss, related to ms along with sleep disruption. Continue Namenda. 14. Restless leg syndrome. Continue Requip 0.25 mg 2 times daily 15. DVT prophylaxis. Heparin 5000 units subcutaneously every 8 hours, bilateral knee-high MAYUR hose. Patient admitted to the hospital for a minimum of 3 nights stay. Discharge plan: Most likely home Impression and plan of care have been directed as dictated by the signing physician. Elaine Nguyen nurse practitioner acting as scribe for signing physician.
[2018-11-01 16:54] LABS: Glucose,Whole Blood 121 mg/dL (75-99)
[2018-11-01 20:00] LABS: Glucose,Whole Blood 147 mg/dL (75-99)
--- NOTE | 2018-11-01 20:09 | P.CNNES ---
History of Present Illness Consult date: 11/01/18 Requesting physician: Elaine Nguyen Reason for Consult: MS exacerbation Chief complaint: Diffuse weakness and speech changes History of Present Illness: This is a 53-year-old right-handed female with a history of relapsing remitting multiple sclerosis previously on Copaxone and there that reportedly were ineffective. Her outpatient neurologist is Dr. Ramirez who started the patient on Ocrevus in 07/2018. She had her 2 initial infusions. Patient had a slight fever when she underwent her 2nd infusion, and patient opines that her body did not react well with the monoclonal antibody at that time. She is then supposed to get her DMT infusion every 6 months, with the next scheduled infusion in 12/2018. She also gets scheduled steroid infusions because her MS has been active. In fact, she had an MRI Brain just last week at her outpatient neurologist's office. I do not have the report or neuroimages for personal review prior to this consultation. Patient presented to the ER for evaluation of fever, cough, sputum production and CP. She also c/o diffuse weakness and worsening of her expressive language abilities, consistent with her typical MS flare-up. She was started on Solu-Medrol 250mg IV q6h today. She feels a little better since the steroid was started. Other neuro conditions include occipital neuralgia for which she takes gabapentin 1200mg po tid and Percocet and Fioricet for breakthrough. She also takes Namenda 10mg po bid for cognitive impairment and Requip 0.25mg po tid fo RLS symptoms. Review of Systems I have performed a 14-point organ ROS with patient that are negative except as per HPI. Past Medical History Past Medical History: Asthma, Cancer, COPD, Fibromyalgia, GERD/Reflux, Hypertension, Neurologic Disorder, Osteoarthritis (OA), Syncope Additional Past Medical History / Comment(s): Rheumatic fever, heart murmur, osteoporosis, chronic bronchitis, MS,vertigo, lexiscan stress test. History of Any Multi-Drug Resistant Organisms: None Reported Past Surgical History: Bladder Surgery, Heart Catheterization, Hysterectomy Additional Past Surgical History / Comment(s): uterine cancer, radiation,NERVE BLOCKS Past Anesthesia/Blood Transfusion Reactions: No Reported Reaction Additional Past Anesthesia/Blood Transfusion Reaction / Comment(s): mild clausterphobia Past Psychological History: Anxiety, Depression Additional Psychological History / Comment(s): Pt resides alone. She uses a cane or walker .She has a private hire nurse aide who organizers her meds in brand planner but pt manages her own meds,assists her with her ADLs. This aide also prepares meals/shopping. Pt does not drive, she has her friends take her to appts. Pt states: "I feel comfortable with the way things are at home right now." Smoking Status: Current every day smoker Past Alcohol Use History: Occasional Additional Past Alcohol Use History / Comment(s): Patient is a smoker of less than one pack per day and has smoked on and off for 20 years. She denies any marijuana or street drug use. She is and lives alone. Past Drug Use History: None Reported - Past Family History Mother Family Medical History: CVA/TIA, Myocardial Infarction ([place]) Additional Family Medical History / Comment(s): Mother is alive at age 73 with history of brain aneurysm, 3 strokes and 2 myocardial infarctions. Father Additional Family Medical History / Comment(s): Father at age 72 from a cardiac arrest thought to be due to a myocardial infarction. Sister(s) Additional Family Medical History / Comment(s): Patient has 2 sisters with no major medical problems. Patient does not have any brothers. Patient has 2 children ages 34 and 27 with no major medical problems. Patient is only family member with MS. Medications and Allergies Home Medications Medication Instructions Recorded Confirmed Type Albuterol Inhaler [Ventolin Hfa 2 puff INHALATION RT-Q6H PRN 02/20/14 10/31/18 History Inhaler] Aspirin 81 mg PO DAILY 02/20/14 10/31/18 History LORazepam [Ativan] 1 mg PO Q8H PRN 02/20/14 10/31/18 History Verapamil HCl 120 mg PO DAILY 02/20/14 10/31/18 History Gabapentin [Neurontin] 1,200 mg PO TID 08/19/16 10/31/18 History Butalb/APAP/Caff 50-325-40Mg 1 tab PO Q8H PRN 03/25/17 10/31/18 History [Fioricet 50-325-40] Memantine [Namenda] 10 mg PO AC-SUPPER 10/02/17 10/31/18 History oxyCODONE-APAP 10-325MG [Percocet 1 tab PO TID PRN 01/28/18 10/31/18 History 10-325 mg] rOPINIRole HCL [Requip] 0.25 mg PO TID #90 tab 01/31/18 10/31/18 Rx Docusate [Colace] 100 mg PO DAILY PRN 04/02/18 10/31/18 History Baclofen [Lioresal] 10 mg PO TID #60 tab 04/07/18 10/31/18 Rx Albuterol Nebulized [Ventolin 2.5 mg INHALATION RT-Q6H PRN 05/06/18 10/31/18 History Nebulized] Budesonide/Formoterol Fumarate 2 puff INHALATION RT-BID 05/06/18 10/31/18 History [Symbicort 160-4.5 Mcg Inhaler] Cholecalciferol [Vitamin D3 (25 1,000 unit PO DAILY 05/07/18 10/31/18 History Mcg = 1000 Iu)] Hydrochlorothiazide 25 mg PO DAILY 05/07/18 10/31/18 History Multivitamins, Thera [Multivitamin 1 tab PO DAILY 05/07/18 10/31/18 History (formulary)] PARoxetine [Paxil] 40 mg PO DAILY tab 05/09/18 10/31/18 Rx Pantoprazole Sodium [Protonix] 40 mg PO BID 10/31/18 10/31/18 History Allergies Allergy/AdvReac Type Severity Reaction Status Date / Time No Known Allergies Allergy Verified 10/31/18 13:49 Physical Examination - Vital Signs Vital Signs: Vital Signs Temp Pulse Pulse Pulse Resp BP BP 11/01/18 19:41 86 11/01/18 19:28 85 11/01/18 19:25 97.6 F 75 18 129/76 11/01/18 16:16 18 11/01/18 15:52 98.0 F 79 18 122/72 11/01/18 11:46 84 11/01/18 11:36 98.1 F 82 16 140/89 11/01/18 11:21 86 11/01/18 08:00 98.1 F 67 17 147/84 11/01/18 03:40 98.0 F 77 15 118/76 11/01/18 02:51 70 14 10/31/18 23:48 70 14 10/31/18 23:36 97.9 F 94 14 95/58 10/31/18 20:51 85 10/31/18 20:44 86 10/31/18 20:00 98.1 F 92 17 123/83 Pulse Ox 11/01/18 19:41 11/01/18 19:28 11/01/18 19:25 94 L 11/01/18 16:16 11/01/18 15:52 96 11/01/18 11:46 11/01/18 11:36 93 L 11/01/18 11:21 11/01/18 08:00 95 11/01/18 03:40 97 11/01/18 02:51 10/31/18 23:48 10/31/18 23:36 97 10/31/18 20:51 10/31/18 20:44 10/31/18 20:00 93 L Intake and Output 11/01/18 11/01/18 11/01/18 06:59 14:59 22:59 Intake Total 222 Balance 222 Intake: Oral 222 Other: Voiding Method Toilet Toilet # Voids 1 1 1 Gen NAD Pleasant and cooperative HEENT NCAT Sclera without icterus O/P clear Neck Supple No carotid bruit Cor RRR no m/r/g Lungs CTAB Abd Soft NTND +BS Ext Warm to touch No edema Neuro MS A+Ox4 Stuttering speech Able to articulate detailed medical history Able to follow all commands CN PERRL VFF no APD EOMI no nystagmus or ROGER No facial asymmetry Masseter's symmetric Hearing intact to normal voice bilaterally Speech stuttering but not dysarthric Equal elevation of palate Tongue midline Sym shrug and SCM bilaterally Motor Normal bulk/tone Bilateral pronator drift No tremors Strength 4+/5 sym throughout Sens Intact to LT x4 No neglect or extinction Coord No dysmetria on FTN bilaterally DTRs 2+/4 sym throughout Toes downgoing bilaterally No clonus at achilles Gait Deferred Results - Laboratory Findings CBC and BMP: 10/31/18 14:00 10/31/18 14:00 Abnormal Lab Findings: Abnormal Labs 10/31/18 10/31/18 10/31/18 14:00 14:00 14:00 WBC 14.7 H Hct 49.5 H MCHC 30.8 L RDW 16.0 H Neutrophils # 10.9 H APTT 20.9 L Chloride 95 L Carbon Dioxide 38 H BUN 5 L Creatinine 0.51 L POC Glucose (mg/dL) Total Protein 6.0 L 11/01/18 11/01/18 11/01/18 06:51 11:51 16:44 WBC Hct MCHC RDW Neutrophils # APTT Chloride Carbon Dioxide BUN Creatinine POC Glucose (mg/dL) 120 H 119 H 121 H Total Protein Assessment and Plan Assessment: RRMS with diffuse weakness and stuttering speech, possible exacerbation. Cognitive impairment in the setting of demyelination disease Occipital neuralgia RLS Plan: -Fine to continue Solu-Medrol 250mg IV q6h for at least 3 days as long as she does not have a significant active infectious process. U/A clean. She has a cough but per review of primary team's H&P it appears it is related to nasal congestion and seasonal allergies. She was started on doxycycline for sinusitis yesterday. Primary team is aware. -While on pulse glucocorticoid, PPI and sleep aid prn. -Insulin SS -Request MRI report from primary neurologist's office. -She is scheduled for her next Ocrevus infusion in 12/2018. -Continue Namenda, GBP and ropinirole for cognitive impairment, occipital neuralgia and RLS respectively. -DVT prophylaxis: Heparin SC. -d/w patient and primary team in detail. All questions answered. Thank you for this consultation. Please call with ?. Time with Patient: Greater than 30 (Time spent in direct patient care, greater than 50% of which was spent in [id number] counseling and coordination of care: 70 minutes.)
[2018-11-01] MEDS: MEMANTINE 10 MG TAB PO SCH (20:26)
[2018-11-01] MEDS ORDERED: MELATONIN 3 MG TABLET PO SCH (21:00)
[2018-11-02] MEDS: methylPREDNISolone SOD SUCCI 250 MG in SODIUM CHLORIDE 0.9% 100 ML IVPB SCH ×4 (06:18→23:51)
[2018-11-02 06:44] LABS: Glucose,Whole Blood 134 mg/dL (75-99)
[2018-11-02] MEDS: INSULIN ASPART (NovoLOG) 100 UNIT/ML VIAL SQ SCH ×4 (07:12→20:05)
[2018-11-02] MEDS: SYMBICORT 160-4.5 MCG INHALER INHALATION SCH ×2 (07:22→20:16)
[2018-11-02] MEDS: IPRATROPIUM-ALBUTEROL 3 ML NEB INHALATION PRN (07:27)
[2018-11-02] MEDS ORDERED: IPRATROPIUM-ALBUTEROL 3 ML NEB INHALATION PRN (07:31)
[2018-11-02] MEDS: ASPIRIN 81 MG PO SCH (07:49)
[2018-11-02] MEDS: MULTIVITAMINS, THERA 1 EACH TAB PO SCH (07:49)
[2018-11-02] MEDS: oxyCODONE-APAP 10-325MG 1 EACH TAB PO PRN ×3 (07:49→23:50)
[2018-11-02] MEDS: BACLOFEN 10 MG TAB PO SCH ×3 (07:49→23:51)
[2018-11-02] MEDS: NICOTINE 21MG/24HR PATCH TRANSDERM SCH (07:49)
[2018-11-02] MEDS: FLUTICASONE 50MCG/SPRAY NASAL 16GM EA NOSTRIL SCH (07:49)
[2018-11-02] MEDS: BUTALB/APAP/CAFF 50-325-40MG TAB PO PRN ×3 (07:49→23:51)
[2018-11-02] MEDS: PANTOPRAZOLE 40 MG TABLET PO SCH ×2 (07:49→17:50)
[2018-11-02] MEDS: CHOLECALCIFEROL 1,000 UNIT TAB PO SCH (07:49)
[2018-11-02] MEDS: MEMANTINE 10 MG TAB PO SCH ×2 (07:50→23:50)
[2018-11-02] MEDS: GABAPENTIN 400 MG CAP PO SCH ×3 (07:50→23:49)
[2018-11-02] MEDS: NYSTATIN 100,000 UNIT/ML SUSP 500,000 UNIT/5 ML CUP PO SCH ×4 (07:51→23:51)
[2018-11-02] MEDS: PARoxetine 20 MG TAB PO SCH (07:51)
[2018-11-02] MEDS: HYDROCHLOROTHIAZIDE 25 MG TAB PO SCH (07:52)
[2018-11-02] MEDS: VERAPAMIL SR 120 MG TABLET.ER PO SCH (07:52)
[2018-11-02] MEDS: LORazepam 1 MG TAB PO PRN ×3 (08:45→23:49)
--- NOTE | 2018-11-02 10:22 | P.PN ---
Subjective Progress Note Date: 11/02/18 Principal diagnosis: MS exacerbation Occipital neuralgia RLS Solu-Medrol ongoing. Patient states she is not getting an antibiotic for her sinusitis. Speech still stutters. Working with PT. No other new neuro c/o. Objective - Vital Signs Vital signs: Vital Signs Temp 98.2 F 11/02/18 07:00 Pulse 70 11/02/18 07:42 Resp 18 11/02/18 08:00 BP 128/92 11/02/18 07:00 Pulse Ox 99 11/02/18 07:00 Intake & Output 11/01/18 11/02/18 11/02/18 18:59 06:59 18:59 Intake Total 222 Balance 222 Intake: Oral 222 Other: Voiding Method Toilet Toilet Toilet # Voids 1 2 - Exam Gen NAD Pleasant and cooperative MS A+Ox4 Stuttering but o/w fluent speech Able to follow all commands CN II-XII grossly intact no nystagmus or ROGER Motor Normal bulk/tone Bilateral pronator drift No tremors Strength 4+/5 sym throughout Sens Intact to LT x4 Coord Not tested DTRs 2+/4 sym throughout Gait Deferred - Labs CBC & Chem 7: 10/31/18 14:00 10/31/18 14:00 Labs: Abnormal Lab Results - Last 24 Hours (Table) 11/01/18 11/01/18 11/01/18 Range/Units 11:51 16:44 19:58 POC Glucose (mg/dL) 119 H 121 H 147 H (75-99) mg/dL 11/02/18 Range/Units 06:40 POC Glucose (mg/dL) 134 H (75-99) mg/dL Assessment and Plan Assessment: RRMS with diffuse weakness and stuttering speech, possible exacerbation. Cognitive impairment in the setting of demyelination disease Occipital neuralgia RLS Plan: -Fine to continue Solu-Medrol 250mg IV q6h for at least 3 days as long as she does not have a significant active infectious process. U/A clean. She has a cough but per review of primary team's H&P it appears it is related to nasal congestion and seasonal allergies. She was supposedly started on doxycycline for sinusitis, but per patient she is not getting any antibiotic. I have asked patient to be sure to clarify with primary team especially since she is getting steroids here. -While on pulse glucocorticoid, PPI and sleep aid prn. -Insulin SS -Requested MRI report from primary neurologist's office. Awaiting report. -She is scheduled for her next Ocrevus infusion in 12/2018. -Continue Namenda, GBP and ropinirole for cognitive impairment, occipital neuralgia and RLS respectively. -DVT prophylaxis: Heparin SC. -d/w patient in detail. All questions answered. Thank you again for this consultation. Please call with ?. Time with Patient: Greater than 30 (Time spent in direct patient care, greater than 50% of which was spent in [id number] counseling and coordination of care: 35 minutes.)
[2018-11-02 11:53] LABS: Glucose,Whole Blood 142 mg/dL (75-99)
[2018-11-02] MEDS: IPRATROPIUM-ALBUTEROL 3 ML NEB INHALATION SCH ×3 (12:19→20:17)
[2018-11-02] MEDS: AZITHROMYCIN 500 MG TAB PO SCH (12:21)
--- NOTE | 2018-11-02 14:18 | P.PN ---
Subjective Progress Note Date: 11/02/18 This is a 53-year-old -[place] female patient of Dr. Tabares with past medical history of asthma, uterine cancer status post hysterectomy and radiation, fibromyalgia, COPD, chronic hypoxic respiratory failure on home O2, gastroesophageal reflux disease, hypertension, osteoarthritis and osteoporosis, MS currently on Ocrevus, after she was on Copaxone and Tecfidera for quite sometime, she has been under the care of Dr. Ramirez, is also treated for chronic pain and undergoes frequent injections and including occipital nerve block. She has had previous admissions for MS exacerbation as well as COPD exacerbation. Patient is complaining of MS flare. She states she has had generalized weakness and had a fall on . She states she may have hit her head but she did have a headache before the fall. She denies having any dizziness. She states she has a buzzing feeling between both ears. She states she had a fever up to 102.3. She complains of cough with sputum production. She has some tingling in her right arm and right shoulder pain. No leg involvement. She did undergo an MRI scheduled by Dr. Ramirez in his office on Thursday. Patient started on Ocrevus in July but there is concern that she would not be able to tolerate it she developed a fever 2 days following. It is norm ally provided every 6 hours but due to her progressive numbness of the Donnell, neurology is planning on every 5 months. Patient presented to [facility] emergency center for evaluat ion. Vital signs were stable, chest x-ray was negative for acute cardiopulmonary process with possible evidence of asthma or bronchitis chronically. White count 14.7, hemoglobin 15.3, BUN 5 and creatinine 0.51. blood glucose 94. EKG was in normal sinus rhythm with no ST changes. Patient will be admitted to the [facility] floor for MS exacerbation. Neurology consult has been requested and cardiology is following for chest pain. Patient has been started on Solu-Medrol 250 mg IV piggyback every 6 hours. 11/01: Patient has been seen in consultation by Dr. Kumari with recommendations for his three-day course of IV Solu-Medrol. This will be completed after 6 PM dose on Thursday. Patient is complaining of a cough nonproductive. She complains of nasal fullness but no drainage. Flonase did not seem to help her symptoms. She states it only caused her to get a sore throat. She does have tenderness over the sinus areas and also to the forehead which is secondary to her recent fall and head injury. Azithromycin will be started for bronchitis. Dr. Kumari has been updated. Plan for discharge tomorrow after she completes her course of Solu-Medrol. Objective - Vital Signs Vital signs: Vital Signs Temp 98.2 F 11/02/18 07:00 Pulse 70 11/02/18 07:42 Resp 18 11/02/18 07:00 BP 128/92 11/02/18 07:00 Pulse Ox 99 11/02/18 07:00 Intake & Output 11/01/18 11/02/18 11/02/18 18:59 06:59 18:59 Intake Total 222 Balance 222 Intake: Oral 222 Other: Voiding Method Toilet Toilet # Voids 1 2 - Exam Review of Systems Constitutional: Reports as per HPI, Reports chills, Reports fatigue, Reports f ever, Reports lethargy, Reports malaise, Reports poor appetite, Reports weakness Ears, nose, mouth and throat: Reports nasal congestion, Reports vertigo, Denies dysphagia reports sinus pain. Cardiovascular: Reports lightheadedness, Denies chest pain, Denies decreased exercise tolerance, Denies dyspnea on exertion Respiratory: Denies cough, Denies cough with sputum, Denies dyspnea, Denies excessive sputum, Denies hemoptysis, Denies home oxygen Gastrointestinal: Denies abdominal pain, Denies loss of appetite, Denies nausea, Denies vomiting Genitourinary: Denies urinary frequency Musculoskeletal: Reports gait dysfunction, Reports muscle weakness, Denies myalgias Integumentary: Denies pruritus, Denies rash, Denies wounds Neurological: Reports change in speech, Reports tingling, Reports vertigo, Reports weakness, Denies aphasia, Denies change in mentation, Denies confusion, Denies double vision, Denies seizures Psychiatric: Denies anxiety, Denies depression Physical exam: General appearance: cooperative, no acute distress, morbidly obese, patient noticed to be stuttering - EENT Eyes: anicteric sclerae, EOMI, PERRLA, dentition normal, normal appearance ENT: hearing grossly normal, NA/AT, normal oropharynx Tenderness over sinuses. - Neck occipital nerualgia , left, psotive tenderness, neg brudzinski, neg kernig Neck: normal ROM Thyroid: bilateral: normal size, negative: enlarged, firm, nodule - Respiratory Respiratory: bilateral: CTA, negative: diminished, dullness, rales, rhonchi - Cardiovascular Rhythm: regular Heart sounds: normal: S1, S2 Abnormal Heart Sounds: no systolic murmur, no diastolic murmur, no rub, no S3 Gallop, no S4 Gallop, no click, no other - Gastrointestinal General gastrointestinal: no absent bowel sounds, no decreased bowel sounds, no distended, no hepatomegaly, no hyperactive bowel sounds, normal bowel sounds, no organomegaly, no rigid, no scaphoid, soft, no splenomegaly, no tenderness, no um bilical hernia, no ventral hernia - Integumentary Integumentary: no calor, no cellulitis, no cyanotic, decreased turgor, no flushed, no jaundiced, normal, no normal turgor, no pale, no rash, no ulcer - Neurologic Neurologic: CNII-XII intact - Musculoskeletal Musculoskeletal: generalized weakness, strength equal bilaterally - Psychiatric Psychiatric: A&O x's 3, appropriate affect, intact judgment & insight - Labs CBC & Chem 7: 10/31/18 14:00 10/31/18 14:00 Labs: Abnormal Lab Results - Last 24 Hours (Table) 11/01/18 11/01/18 11/01/18 Range/Units 11:51 16:44 19:58 POC Glucose (mg/dL) 119 H 121 H 147 H (75-99) mg/dL 11/02/18 Range/Units 06:40 POC Glucose (mg/dL) 134 H (75-99) mg/dL Assessment and Plan Plan: 1. Acute exacerbation of relapsing remitting multiple sclerosis. Patient follows with Dr. Ramirez and is normally on Ocrevus. Consult with neurology. Patient started on Solu-Medrol 250 mg every 6 hours. PT, OT, speech therapy evaluations and treatment. 2. Chest pain. Cardiology consult appreciated. Chest pain OR skeletal in origin. 3. On nasal congestion and chronic seasonal ALLERGIES. Nasacort added. Azithromycin added for bronchitis. 4. Chronic pain and occipital neuralgia under the care of Dr. Ramirez. Continue gabapentin 1200 mg 3 times daily, Percocet one 3 times daily as needed, Fioricet as needed, Namenda 10 mg twice daily, Requip 0.25 mg 3 times daily. 5. Hypertension and hypertensive cardiovascular disease. Continue verapamil 120 mg orally once every day. 6. Obesity with possible obstructive sleep apnea and obesity hypoventilation syndrome. Recommend outpatient sleep study 7. Mild intermittent asthma and COPD. Continue nebulized treatment 4 times every day. Support with oxygen as needed. 8. Fibromyalgia. Continue gabapentin 1200 mg orally 3 times every day. 8. ALLERGIC rhinitis, stable. 9. Recurrent depression. Continue Paxil 40 mg daily. 10. Chronic tobacco use and dependence. Smoking cessation and counseling an i ncreased risk of CAD, CVA, and malignancy. Continue nicotine patch 21 mg once every day. 11. Sinus infection. Patient was started on doxycycline yesterday. She states that Augmentin was worked better for her and antibiotics will be changed. 12. GI prophylaxis. Continue patient on pepcid 20 mg orally bid. 13. Memory loss, related to ms along with sleep disruption. Continue Namenda. 14. Restless leg syndrome. Continue Requip 0.25 mg 2 times daily 15. DVT prophylaxis. Heparin 5000 units subcutaneously every 8 hours, bilateral knee-high MAYUR hose. Patient admitted to the hospital for a minimum of 3 nights stay. Discharge plan: Most likely home Thursday evening. Impression and plan of care have been directed as dictated by the signing physician. Elaine Nguyen nurse practitioner acting as scribe for signing physician.
[2018-11-02 17:46] LABS: Glucose,Whole Blood 151 mg/dL (75-99)
[2018-11-02 19:22] LABS: Glucose,Whole Blood 231 mg/dL (75-99)
[2018-11-02] MEDS: HEPARIN SODIUM,PORCINE 5,000 UNIT/ML 1 ML VIAL SQ SCH (20:05)
[2018-11-02] MEDS ORDERED: MELATONIN 3 MG TABLET PO SCH (21:00)
[2018-11-03] MEDS: methylPREDNISolone SOD SUCCI 250 MG in SODIUM CHLORIDE 0.9% 100 ML IVPB SCH ×2 (05:45→11:11)
[2018-11-03 07:03] LABS: Glucose,Whole Blood 111 mg/dL (75-99)
[2018-11-03] MEDS: NICOTINE 21MG/24HR PATCH TRANSDERM SCH (07:45)
[2018-11-03] MEDS: INSULIN ASPART (NovoLOG) 100 UNIT/ML VIAL SQ SCH ×3 (07:45→18:20)
[2018-11-03] MEDS: ASPIRIN 81 MG PO SCH (07:46)
[2018-11-03] MEDS: AZITHROMYCIN 500 MG TAB PO SCH (07:46)
[2018-11-03] MEDS: GABAPENTIN 400 MG CAP PO SCH ×2 (07:46→16:59)
[2018-11-03] MEDS: PANTOPRAZOLE 40 MG TABLET PO SCH ×2 (07:47→16:59)
[2018-11-03] MEDS: CHOLECALCIFEROL 1,000 UNIT TAB PO SCH (07:47)
[2018-11-03] MEDS: BACLOFEN 10 MG TAB PO SCH ×2 (07:47→17:00)
[2018-11-03] MEDS: HEPARIN SODIUM,PORCINE 5,000 UNIT/ML 1 ML VIAL SQ SCH (07:48)
[2018-11-03] MEDS: MULTIVITAMINS, THERA 1 EACH TAB PO SCH (07:49)
[2018-11-03] MEDS: MEMANTINE 10 MG TAB PO SCH (07:49)
[2018-11-03] MEDS: NYSTATIN 100,000 UNIT/ML SUSP 500,000 UNIT/5 ML CUP PO SCH ×3 (07:49→17:06)
[2018-11-03] MEDS: HYDROCHLOROTHIAZIDE 25 MG TAB PO SCH (07:49)
[2018-11-03] MEDS: PARoxetine 20 MG TAB PO SCH (07:50)
[2018-11-03] MEDS: VERAPAMIL SR 120 MG TABLET.ER PO SCH (07:51)
[2018-11-03] MEDS: FLUTICASONE 50MCG/SPRAY NASAL 16GM EA NOSTRIL SCH (07:51)
[2018-11-03] MEDS: BUTALB/APAP/CAFF 50-325-40MG TAB PO PRN ×2 (08:01→17:00)
[2018-11-03] MEDS: oxyCODONE-APAP 10-325MG 1 EACH TAB PO PRN ×2 (08:02→16:59)
[2018-11-03] MEDS: LORazepam 1 MG TAB PO PRN ×2 (08:02→16:59)
[2018-11-03] MEDS: SYMBICORT 160-4.5 MCG INHALER INHALATION SCH (08:30)
[2018-11-03] MEDS: IPRATROPIUM-ALBUTEROL 3 ML NEB INHALATION SCH ×3 (08:30→16:14)
--- NOTE | 2018-11-03 10:35 | P.PN ---
Subjective Progress Note Date: 11/03/18 Principal diagnosis: MS exacerbation Occipital neuralgia RLS Solu-Medrol day #3. Started on ABX. Speech better. Wants to stay until tomorrow. Also wants something for itching such as Benadryl. No other neuro c/o. Objective - Vital Signs Vital signs: Vital Signs Temp 97.5 F L 11/03/18 05:00 Pulse 82 11/03/18 08:49 Resp 16 11/03/18 05:00 BP 130/83 11/03/18 05:00 Pulse Ox 94 L 11/03/18 08:34 Intake & Output 11/02/18 11/03/18 11/03/18 18:59 06:59 18:59 Intake Total 200 940 Balance 200 940 Intake: Intake, IV Titration 100 Amount methylPREDNISolone SOD 100 SUCCI 250 mg In Sodium Chloride 0.9% 100 ml @ 100 mls/hr IVPB Q6HR ANDREAS Rx#:[id number] Oral 840 Other 200 Other: Voiding Method Toilet Toilet # Voids 1 - Exam Gen NAD Pleasant and cooperative MS A+Ox4 Speech significantly improved CN II-XII grossly intact no nystagmus or ROGER Motor Normal bulk/tone Bilateral pronator drift No tremors Strength 4+/5 sym throughout Sens Intact to LT x4 Coord Not tested DTRs 2+/4 sym throughout Gait Deferred - Labs CBC & Chem 7: 10/31/18 14:00 10/31/18 14:00 Labs: Abnormal Lab Results - Last 24 Hours (Table) 11/02/18 11/02/18 11/02/18 Range/Units 11:49 17:44 19:20 POC Glucose (mg/dL) 142 H 151 H 231 H (75-99) mg/dL 11/03/18 Range/Units 07:01 POC Glucose (mg/dL) 111 H (75-99) mg/dL Assessment and Plan Assessment: RRMS with brainstem involvement here with diffuse weakness and stuttering speech, possible exacerbation. Cognitive impairment in the setting of demyelination disease Occipital neuralgia RLS Plan: -Fine to continue Solu-Medrol 250mg IV q6h until the end of today to make a total of 3 days. I discussed with patient 3 vs 5 days of pulse glucocorticoid. My concern is if she is needing to take an antibiotic for an infection, I would not wish to suppress her immune system too much as she needs to be rid of her infection before her next Ocrevus infusion in 12/2018. Patient agrees. -Start prednisone taper tomorrow: 60mg po qd for 3 days, then 40mg po qd for 3 days, then 20mg po qd for 3 days then 10mg po qd for 3 days then STOP. -While on pulse glucocorticoid, PPI and sleep aid prn. -Insulin SS -MRI brain report reviewed with patient in detail. -She is scheduled for her next Ocrevus infusion in 12/2018. -Continue Namenda, GBP and ropinirole for cognitive impairment, occipital neuralgia and RLS respectively. -DVT prophylaxis: Heparin SC. -d/w patient in detail. All questions answered. Thank you again for this consultation. Please call with ?. Time with Patient: Less than 30 (Time spent in direct patient care, greater than 50% of which was spent in [id number] counseling and coordination of care: 25 minutes.)
[2018-11-03 12:01] VITALS: BP 136/85; RESP 17; TEMP 97.9
[2018-11-03 12:46] LABS: Glucose,Whole Blood 123 mg/dL (75-99)
--- NOTE | 2018-11-03 14:11 | P.DS ---
Providers Date of admission: 11/01/18 11:24 Expected date of discharge: 11/03/18 Attending physician: Deneen Thomason Consults: 10/31/18 15:38 Consult Physician Routine Consulting Provider: [facility] Consult Reason/Comments: chest pain, trending trop, h/o IA Do you want consulting provider notified?: Yes 11/01/18 09:33 Consult Physician Routine Consulting Provider: Megan Kumari Consult Reason/Comments: MS exacerbation Do you want consulting provider notified?: Yes Primary care physician: Kilo Tabares [facility] Course: This is a 53-year-old -[place] female patient of Dr. Tabares with past medical history of asthma, uterine cancer status post hysterectomy and radiation, fibromyalgia, COPD, chronic hypoxic respiratory failure on home O2, gastroesophageal reflux disease, hypertension, osteoarthritis and osteoporosis, MS currently on Ocrevus, after she was on Copaxone and Tecfidera for quite sometime, she has been under the care of Dr. Ramirez, is also treated for chronic pain and undergoes frequent injections and including occipital nerve block. She has had previous admissions for MS exacerbation as well as COPD exacerbation. Patient is complaining of MS flare. She states she has had generalized weakness and had a fall on . She states she may have hit her head but she did have a headache before the fall. She denies having any dizziness. She states she has a buzzing feeling between both ears. She states she had a fever up to 102.3. She complains of cough with sputum production. She has some tingling in her right arm and right shoulder pain. No leg involvement. She did undergo an MRI scheduled by Dr. Ramirez in his office on Thursday. Patient started on Ocrevus in July but there is concern that she would not be able to tolerate it she developed a fever 2 days following. It is normally provided every 6 hours but due to her progressive numbness of the Donnell, neurology is planning on every 5 months. Patient presented to [facility] emergency center for evaluation. Vital signs were stable, chest x-ray was negative for acute cardiopulmonary process with possible evidence of asthma or bronchitis chronically. White count 14.7, hemoglobin 15.3, BUN 5 and creatinine 0.51. blood glucose 94. EKG was in normal sinus rhythm with no ST changes. Patient will be admitted to the Med[facility] floor for MS exacerbation. Neurology consult has been requested and cardiology is following for chest pain. Patient has been started on Solu-Medrol 250 mg IV piggyback every 6 hours. 11/02: Patient has been seen in consultation by Dr. Kumari with recommendations for his three-day course of IV Solu-Medrol. This will be completed after 6 PM dose on Thursday. Patient is complaining of a cough nonproductive. She complains of nasal fullness but no drainage. Flonase did not seem to help her symptoms. She states it only caused her to get a sore throat. She does have tenderness over the sinus areas and also to the forehead which is secondary to her recent fall and head injury. Azithromycin will be started for bronchitis. Dr. Kumari has been updated. Plan for discharge tomorrow after she completes her course of Solu-Medrol. 11/03: Patient will be completing her course of IV Solu-Medrol this evening. We will plan for nursing to provide the afternoon dose at 11 and her last dose at 5 PM. She will then continue his prednisone taper as an outpatient. Speech is improved today with less stuttering. No new complaints. Patient has been afebrile, heart rate 88, blood pressure 136/85, pulse ox 96% on room air. Blood sugars are running between 111 and 231. Patient will be discharged home in stable condition. Discharge diagnoses: 1. Acute exacerbation of relapsing remitting multiple sclerosis. 2. Chest pain. Chest pain is skeletal in origin. 3. Nasal congestion and chronic seasonal ALLERGIES. 5. Chronic pain and occipital neuralgia under the care of Dr. Ramirez. 5. Hypertension and hypertensive cardiovascular disease. 6. Obesity with possible obstructive sleep apnea and obesity hypoventilation syndrome. Recommend outpatient sleep study 7. Mild intermittent asthma and COPD. 8. Fibromyalgia. 8. ALLERGIC rhinitis, stable. 9. Recurrent depression. 10. Chronic tobacco use and dependence. 11. Acute bronchitis. 12. Memory loss, related to ms along with sleep disruption. 13. Restless leg syndrome. 14. Hyperglycemia secondary to steroids Discharge plan: home with [facility] Impression and plan of care have been directed as dictated by the signing physician. Elaine Nguyen nurse practitioner acting as scribe for signing physician. Patient Condition at Discharge: Good Plan - Discharge Summary Discharge Rx Participant: Yes New Discharge Prescriptions: New Fluticasone Nasal [place] [Flonase Nasal [place]] 2 spray EA NOSTRIL DAILY #1 spr Nicotine 21Mg/24Hr Patch [Habitrol] 1 patch TRANSDERM DAILY #30 patch Nystatin 100,000 Unit/ml Susp [Mycostatin Oral Susp] 500,000 unit PO QID #140 ml predniSONE 0 mg PO DIRECTED #63 tab Azithromycin [Zithromax] 500 mg PO DAILY #3 tab Continue Albuterol Inhaler [Ventolin Hfa Inhaler] 2 puff INHALATION RT-Q6H PRN PRN Reason: Wheezing LORazepam [Ativan] 1 mg PO Q8H PRN PRN Reason: Anxiety Aspirin 81 mg PO DAILY Verapamil HCl 120 mg PO DAILY Gabapentin [Neurontin] 1,200 mg PO TID Butalb/APAP/Caff 50-325-40Mg [Fioricet 50-325-40] 1 tab PO Q8H PRN PRN Reason: Headache Memantine [Namenda] 10 mg PO AC-SUPPER oxyCODONE-APAP 10-325MG [Percocet 10-325 mg] 1 tab PO TID PRN PRN Reason: pain rOPINIRole HCL [Requip] 0.25 mg PO TID #90 tab Docusate [Colace] 100 mg PO DAILY PRN PRN Reason: Constipation Baclofen [Lioresal] 10 mg PO TID #60 tab Albuterol Nebulized [Ventolin Nebulized] 2.5 mg INHALATION RT-Q6H PRN PRN Reason: Shortness Of Breath Budesonide/Formoterol Fumarate [Symbicort 160-4.5 Mcg Inhaler] 2 puff INHALATION RT-BID Multivitamins, Thera [Multivitamin (formulary)] 1 tab PO DAILY Hydrochlorothiazide 25 mg PO DAILY Cholecalciferol [Vitamin D3 (25 Mcg = 1000 Iu)] 1,000 unit PO DAILY PARoxetine [Paxil] 40 mg PO DAILY tab Pantoprazole Sodium [Protonix] 40 mg PO BID Discharge Medication List Albuterol Inhaler [Ventolin Hfa Inhaler] 2 puff INHALATION RT-Q6H PRN 02/20/14 [History] Aspirin 81 mg PO DAILY 02/20/14 [History] LORazepam [Ativan] 1 mg PO Q8H PRN 02/20/14 [History] Verapamil HCl 120 mg PO DAILY 02/20/14 [History] Gabapentin [Neurontin] 1,200 mg PO TID 08/19/16 [History] Butalb/APAP/Caff 50-325-40Mg [Fioricet 50-325-40] 1 tab PO Q8H PRN 03/25/17 [History] Memantine [Namenda] 10 mg PO AC-SUPPER 10/02/17 [History] oxyCODONE-APAP 10-325MG [Percocet 10-325 mg] 1 tab PO TID PRN 01/28/18 [History] rOPINIRole HCL [Requip] 0.25 mg PO TID #90 tab 01/31/18 [Rx] Docusate [Colace] 100 mg PO DAILY PRN 04/02/18 [History] Baclofen [Lioresal] 10 mg PO TID #60 tab 04/07/18 [Rx] Albuterol Nebulized [Ventolin Nebulized] 2.5 mg INHALATION RT-Q6H PRN 05/06/18 [History] Budesonide/Formoterol Fumarate [Symbicort 160-4.5 Mcg Inhaler] 2 puff INHALATION RT-BID 05/06/18 [History] Cholecalciferol [Vitamin D3 (25 Mcg = 1000 Iu)] 1,000 unit PO DAILY 05/07/18 [History] Hydrochlorothiazide 25 mg PO DAILY 05/07/18 [History] Multivitamins, Thera [Multivitamin (formulary)] 1 tab PO DAILY 05/07/18 [History] PARoxetine [Paxil] 40 mg PO DAILY tab 05/09/18 [Rx] Pantoprazole Sodium [Protonix] 40 mg PO BID 10/31/18 [History] Azithromycin [Zithromax] 500 mg PO DAILY #3 tab 11/03/18 [Rx] Fluticasone Nasal [place] [Flonase Nasal [place]] 2 spray EA NOSTRIL DAILY #1 spr 11/03/18 [Rx] Nicotine 21Mg/24Hr Patch [Habitrol] 1 patch TRANSDERM DAILY #30 patch 11/03/18 [Rx] Nystatin 100,000 Unit/ml Susp [Mycostatin Oral Susp] 500,000 unit PO QID #140 ml 11/03/18 [Rx] predniSONE 0 mg PO DIRECTED #63 tab 11/03/18 [Rx] Follow up Appointment(s)/Referral(s): [facility], [NON-STAFF] - As Needed Carolynn Ramirez MD [Medical Doctor] - 1 Week Kilo Tabares MD [Primary Care Provider] - 1 Week Discharge Disposition: HOME WITH HOME HEALTH SERVICES
[2018-11-03 16:17] LABS: Glucose,Whole Blood 141 mg/dL (75-99)
[2018-11-03] MEDS ORDERED: methylPREDNISolone SOD SUCCI 250 MG in SODIUM CHLORIDE 0.9% 100 ML IVPB ONE (17:00)
[2018-11-03 18:25] VITALS: PULSE 68
== END 2018-11-03 19:18 | disposition home health service (06) | DRG 59 ==
LOC: EC 12:47 → 1SOBS 16:17 → OBSVTOIN 11-01 11:24 → 3NMEDONC 11-02 16:35
PROVIDERS: ADMIT Family Medicine; ATTEND Family Medicine
DX: G35 Multiple sclerosis (principal); Z68.41 Body mass index [BMI] 40.0-44.9, adult; J96.11 Chronic respiratory failure with hypoxia; J44.0 Chronic obstructive pulmonary disease with (acute) lower respiratory infection; E66.2 Morbid (severe) obesity with alveolar hypoventilation; F33.9 Major depressive disorder, recurrent, unspecified; I20.9 Angina pectoris, unspecified; D72.829 Elevated white blood cell count, unspecified; I10 Essential (primary) hypertension; F17.200 Nicotine dependence, unspecified, uncomplicated; M79.7 Fibromyalgia; M54.81 Occipital neuralgia; G89.29 Other chronic pain; J20.9 Acute bronchitis, unspecified; T38.0X5A Adverse effect of glucocorticoids and synthetic analogues, initial encounter; W19.XXXA Unspecified fall, initial encounter; I11.9 Hypertensive heart disease without heart failure; J45.20 Mild intermittent asthma, uncomplicated; F80.81 Childhood onset fluency disorder; R07.89 Other chest pain; R41.3 Other amnesia; F41.9 Anxiety disorder, unspecified; G25.81 Restless legs syndrome; K21.9 Gastro-esophageal reflux disease without esophagitis; M81.0 Age-related osteoporosis without current pathological fracture; Z79.51 Long term (current) use of inhaled steroids; I25.2 Old myocardial infarction; Z79.82 Long term (current) use of aspirin; Z79.899 Other long term (current) drug therapy; Z82.3 Family history of stroke; Z82.41 Family history of sudden cardiac death; Z82.49 Family history of ischemic heart disease and other diseases of the circulatory system; Z85.42 Personal history of malignant neoplasm of other parts of uterus; Z90.710 Acquired absence of both cervix and uterus; Z99.81 Dependence on supplemental oxygen
CPT/HCPCS: 36415; 71046; 80053; 80061; 81003; 83735; 84484; 85025; 85379; 85610; 85730; 93005; 93306; 94640; 94760; 96361; 96374; 96375; 96376; 99285

== ENCOUNTER 2018-11-22 16:23 | Inpatient (IN) | payer MEDICARE, OTHER ==
[2018-11-22] MEDS ORDERED: NALOXONE 0.4 MG/ML 1 ML VIAL IV STA ×2 (16:51)
[2018-11-22] MEDS ORDERED: NALOXONE 0.4 MG/ML 10 ML VIAL IVP STA (16:51)
[2018-11-22 16:52] LABS: Glucose,Whole Blood 139 mg/dL (75-99)
[2018-11-22] MEDS ORDERED: SODIUM CHLORIDE 0.9% 1,000 ML IV STA (16:59)
[2018-11-22] MEDS ORDERED: DEXAMETHASONE SOD PHOSPHATE 10 MG/ML 1 ML VIAL IV STA (16:59)
[2018-11-22] MEDS ORDERED: IPRATROPIUM-ALBUTEROL 3 ML NEB INHALATION STA (17:00)
[2018-11-22 17:07] LABS: Anisocytosis Slight; Basophils # (A) 0.1 k/uL (0-0.2); Basophils % (A) 0 %; Eosinophils # (A) 0.2 k/uL (0-0.7); Eosinophils % (A) 1 %; HCT 51.6 % (34.0-46.0); HGB 15.8 gm/dL (11.4-16.0); Hypochromasia Moderate; Lymphocytes # (A) 4.9 k/uL (1.0-4.8); Lymphocytes % (A) 28 %; MCH 31.2 pg (25.0-35.0); MCHC 30.6 g/dL (31.0-37.0); MCV 101.9 fL (80.0-100.0); Macrocytosis Moderate; Mean Platelet Volume 8.3; Monocytes # (A) 0.7 k/uL (0-1.0); Monocytes % (A) 4 %; Neutrophils # (A) 11.4 k/uL (1.3-7.7); Neutrophils % (A) 65 %; Platelet Count 198 k/uL (150-450); RBC 5.06 m/uL (3.80-5.40); RDW 16.4 % (11.5-15.5); WBC 17.5 k/uL (3.8-10.6)
[2018-11-22 17:08] LABS: Appearance,Urine Clear (Clear); Bilirubin,Urine Negative (Negative); Blood,Urine Negative (Negative); Color,Urine Light Yellow; Glucose,Urine (UA) Negative (Negative); Ketones,Urine Negative (Negative); Leukocyte Esterase,Urine Negative (Negative); Nitrite,Urine Negative (Negative); Protein,Urine Negative (Negative); Specific Gravity,Urine 1.008 (1.001-1.035); Urobilinogen,Urine <2.0 mg/dL (<2.0)
--- NOTE | 2018-11-22 17:09 | ED ---
Altered Mental Status HPI - General Chief Complaint: Altered Mental Status Stated Complaint: frequent falls Time Seen by Provider: 11/22/18 16:58 Source: patient, RN notes reviewed, old records reviewed Mode of arrival: EMS Limitations: no limitations - History of Present Illness Initial Comments: Upon arrival to Hospital patient does appear to have taken overdose of some sort. Per family patient does have history of alcoholism, multiple prescription medications. MD Complaint: altered mental status, decreased responsiveness, weakness -: minutes(s) (Just prior to arrival, patient was awake and alert during EMS ride over) Severity: moderate Consistency of Symptoms: getting worse Context: history of similar presentation Associated Symptoms: denies other symptoms Treatments Prior to Arrival: IV fluid, oxygen - Related Data Home Medications Medication Instructions Recorded Confirmed Albuterol Inhaler [Ventolin Hfa 2 puff INHALATION RT-Q6H PRN 02/20/14 11/22/18 Inhaler] Aspirin 81 mg PO DAILY 02/20/14 11/22/18 LORazepam [Ativan] 1 mg PO Q8H PRN 02/20/14 11/22/18 Verapamil HCl 120 mg PO DAILY 02/20/14 11/22/18 Gabapentin [Neurontin] 1,200 mg PO TID 08/19/16 11/22/18 Butalb/APAP/Caff 50-325-40Mg 1 tab PO Q8H PRN 03/25/17 11/22/18 [Fioricet 50-325-40] oxyCODONE-APAP 10-325MG [Percocet 1 tab PO TID PRN 01/28/18 11/22/18 10-325 mg] Docusate [Colace] 100 mg PO DAILY PRN 04/02/18 11/22/18 Albuterol Nebulized [Ventolin 2.5 mg INHALATION RT-Q6H PRN 05/06/18 11/22/18 Nebulized] Budesonide/Formoterol Fumarate 2 puff INHALATION RT-BID 05/06/18 11/22/18 [Symbicort 160-4.5 Mcg Inhaler] Cholecalciferol [Vitamin D3 (25 1,000 unit PO DAILY 05/07/18 11/22/18 Mcg = 1000 Iu)] Multivitamins, Thera [Multivitamin 1 tab PO DAILY 05/07/18 11/22/18 (formulary)] Pantoprazole Sodium [Protonix] 40 mg PO BID 10/31/18 11/22/18 Baclofen [Lioresal] 10 mg PO QID 11/22/18 11/22/18 Ipratropium-Albuterol Nebulize 3 ml INHALATION RT-QID 11/22/18 11/22/18 [Duoneb 0.5 mg-3 mg/3 ml Soln] Memantine [Namenda] 10 mg PO BID 11/22/18 11/22/18 Montelukast [Singulair] 10 mg PO DAILY 11/22/18 11/22/18 Previous Rx's Medication Instructions Recorded rOPINIRole HCL [Requip] 0.25 mg PO TID #90 tab 01/31/18 PARoxetine [Paxil] 40 mg PO DAILY tab 05/09/18 Fluticasone Nasal [place] [Flonase 2 spray EA NOSTRIL DAILY #1 spr 11/03/18 Nasal [place]] Allergies Allergy/AdvReac Type Severity Reaction Status Date / Time No Known Allergies Allergy Verified 11/22/18 17:17 Review of Systems ROS Statement: Those systems with pertinent positive or pertinent negative responses have been documented in the HPI. ROS Other: All systems not noted in ROS Statement are negative. Past Medical History Past Medical History: Asthma, Cancer, COPD, Fibromyalgia, GERD/Reflux, Hypertension, Neurologic Disorder, Osteoarthritis (OA), Syncope Additional Past Medical History / Comment(s): Rheumatic fever, heart murmur, osteoporosis, chronic bronchitis, MS,vertigo, lexiscan stress test. History of Any Multi-Drug Resistant Organisms: None Reported Past Surgical History: Bladder Surgery, Heart Catheterization, Hysterectomy Additional Past Surgical History / Comment(s): uterine cancer, radiation,NERVE BLOCKS Past Anesthesia/Blood Transfusion Reactions: No Reported Reaction Additional Past Anesthesia/Blood Transfusion Reaction / Comment(s): mild clausterphobia Past Psychological History: Anxiety, Depression Smoking Status: Current every day smoker Past Alcohol Use History: Occasional Past Drug Use History: None Reported - Past Family History Mother Family Medical History: CVA/TIA, Myocardial Infarction (OK) Additional Family Medical History / Comment(s): Mother is alive at age 73 with history of brain aneurysm, 3 strokes and 2 myocardial infarctions. Father Additional Family Medical History / Comment(s): Father at age 72 from a cardiac arrest thought to be due to a myocardial infarction. Sister(s) Additional Family Medical History / Comment(s): Patient has 2 sisters with no major medical problems. Patient does not have any brothers. Patient has 2 children ages 34 and 27 with no major medical problems. Patient is only family member with MS. General Exam Limitations: no limitations, altered mental status General appearance: alert, lethargic, in distress, obese Head exam: Present: atraumatic, normocephalic, normal inspection Eye exam: Present: normal appearance, PERRL, EOMI. Absent: scleral icterus, conjunctival injection, periorbital swelling ENT exam: Present: normal exam, mucous membranes moist Neck exam: Present: normal inspection. Absent: tenderness, meningismus, lymphadenopathy Respiratory exam: Present: normal lung sounds bilaterally. Absent: respiratory distress, wheezes, rales, rhonchi, stridor Cardiovascular Exam: Present: regular rate, normal rhythm, normal heart sounds. Absent: systolic murmur, diastolic murmur, rubs, gallop, clicks GI/Abdominal exam: Present: soft, normal bowel sounds. Absent: distended, tenderness, guarding, rebound, rigid Extremities exam: Present: normal inspection, full ROM, normal capillary refill. Absent: tenderness, pedal edema, joint swelling, calf tenderness Back exam: Present: normal inspection Neurological exam: Present: alert, oriented X3, CN II-XII intact Psychiatric exam: Present: normal affect, normal mood Skin exam: Present: warm, dry, intact, normal color. Absent: rash Course Vital Signs 11/22/18 11/22/18 11/22/18 16:36 16:45 16:53 Temperature 99.1 F Pulse Rate 96 87 Respiratory 10 L 16 16 Rate Blood Pressure 165/98 148/97 O2 Sat by Pulse 71 L 97 Oximetry 11/22/18 11/22/18 11/22/18 17:20 17:31 17:50 Temperature Pulse Rate 88 82 79 Respiratory 22 Rate Blood Pressure 131/88 O2 Sat by Pulse 98 Oximetry 11/22/18 11/22/18 18:01 18:25 Temperature Pulse Rate 77 75 Respiratory 16 10 L Rate Blood Pressure 126/85 114/90 O2 Sat by Pulse 95 95 Oximetry - Reevaluation(s) Reevaluation #1: 11/22/18 19:40 Medical records reviewed Reevaluation #2: 11/22/18 19:40 Patient with minimal response to Narcan Reevaluation #3: 11/22/18 19:40 Will admit to ICU for close monitoring Medical Decision Making - Medical Decision Making 53 female coming in for evaluation. Patient resents today for evaluation regards to altered mental status, mild response to Narcan but no significant response to Narcan. Patient will be admitted ICU for further evaluation and monitoring - Lab Data Result diagrams: 11/22/18 16:42 11/22/18 16:42 Lab Results 11/22/18 11/22/18 11/22/18 Range/Units 16:33 16:42 16:42 WBC 17.5 H (3.8-10.6) k/uL RBC 5.06 (3.80-5.40) m/uL Hgb 15.8 (11.4-16.0) gm/dL Hct 51.6 H (34.0-46.0) % MCV 101.9 H (80.0-100.0) fL MCH 31.2 (25.0-35.0) pg MCHC 30.6 L (31.0-37.0) g/dL RDW 16.4 H (11.5-15.5) % Plt Count 198 (150-450) k/uL Neutrophils % 65 % Lymphocytes % 28 % Monocytes % 4 % Eosinophils % 1 % Basophils % 0 % Neutrophils # 11.4 H (1.3-7.7) k/uL Lymphocytes # 4.9 H (1.0-4.8) k/uL Monocytes # 0.7 (0-1.0) k/uL Eosinophils # 0.2 (0-0.7) k/uL Basophils # 0.1 (0-0.2) k/uL Hypochromasia Moderate Anisocytosis Slight Macrocytosis Moderate PT (9.0-12.0) sec INR (<1.2) APTT (22.0-30.0) sec Sample Site ABG pH (7.35-7.45) ABG pCO2 (35-45) mmHg ABG pO2 (83-108) mmHg ABG HCO3 (21-25) mmol/L ABG Total CO2 (19-24) mmol/L ABG O2 Saturation (94-97) % ABG Base Excess mmol/L Warner Test FiO2 % Sodium 139 (137-145) mmol/L Potassium 4.1 (3.5-5.1) mmol/L Chloride 92 L (98-107) mmol/L Carbon Dioxide 40 H (22-30) mmol/L Anion Gap 7 mmol/L BUN 9 (7-17) mg/dL Creatinine 0.61 (0.52-1.04) mg/dL Est GFR (CKD-EPI)AfAm >90 (>60 ml/min/1.73 sqM) Est GFR (CKD-EPI)NonAf >90 (>60 ml/min/1.73 sqM) Glucose 138 H (74-99) mg/dL POC Glucose (mg/dL) 139 H (75-99) mg/dL POC Glu Interior Design Director ID Nathalie Pablo Calcium 9.4 (8.4-10.2) mg/dL Magnesium 1.9 (1.6-2.3) mg/dL Total Bilirubin 0.7 (0.2-1.3) mg/dL AST 25 (14-36) U/L ALT 43 (9-52) U/L Alkaline Phosphatase 100 (38-126) U/L Total Creatine Kinase (30-135) U/L CK-MB (CK-2) (0.0-2.4) ng/mL CK-MB (CK-2) Rel Index Troponin I (0.000-0.034) ng/mL Total Protein 6.7 (6.3-8.2) g/dL Albumin 4.3 (3.5-5.0) g/dL Urine Color Urine Appearance (Clear) Urine pH (5.0-8.0) Ur Specific [place] (1.001-1.035) Urine Protein (Negative) Urine Glucose (UA) (Negative) Urine Ketones (Negative) Urine Blood (Negative) Urine Nitrite (Negative) Urine Bilirubin (Negative) Urine Urobilinogen (<2.0) mg/dL Ur Leukocyte Esterase (Negative) Salicylates <1.0 mg/dL Urine Opiates Screen (NotDetected) Ur Oxycodone Screen (NotDetected) Urine Methadone Screen (NotDetected) Ur Propoxyphene Screen (NotDetected) Acetaminophen <10.0 ug/mL Ur Barbiturates Screen (NotDetected) U Tricyclic Antidepress (NotDetected) Ur Phencyclidine Scrn (NotDetected) Ur Amphetamines Screen (NotDetected) U Methamphetamines Scrn (NotDetected) U Benzodiazepines Scrn (NotDetected) Urine Cocaine Screen (NotDetected) U Marijuana (THC) Screen (NotDetected) Serum Alcohol <10 mg/dL 11/22/18 11/22/18 11/22/18 Range/Units 16:42 16:42 16:42 WBC (3.8-10.6) k/uL RBC (3.80-5.40) m/uL Hgb (11.4-16.0) gm/dL Hct (34.0-46.0) % MCV (80.0-100.0) fL MCH (25.0-35.0) pg MCHC (31.0-37.0) g/dL RDW (11.5-15.5) % Plt Count (150-450) k/uL Neutrophils % % Lymphocytes % % Monocytes % % Eosinophils % % Basophils % % Neutrophils # (1.3-7.7) k/uL Lymphocytes # (1.0-4.8) k/uL Monocytes # (0-1.0) k/uL Eosinophils # (0-0.7) k/uL Basophils # (0-0.2) k/uL Hypochromasia Anisocytosis Macrocytosis PT 10.4 (9.0-12.0) sec INR 1.0 (<1.2) APTT 21.2 L (22.0-30.0) sec Sample Site ABG pH (7.35-7.45) ABG pCO2 (35-45) mmHg ABG pO2 (83-108) mmHg ABG HCO3 (21-25) mmol/L ABG Total CO2 (19-24) mmol/L ABG O2 Saturation (94-97) % ABG Base Excess mmol/L Warner Test FiO2 % Sodium (137-145) mmol/L Potassium (3.5-5.1) mmol/L Chloride (98-107) mmol/L Carbon Dioxide (22-30) mmol/L Anion Gap mmol/L BUN (7-17) mg/dL Creatinine (0.52-1.04) mg/dL Est GFR (CKD-EPI)AfAm (>60 ml/min/1.73 sqM) Est GFR (CKD-EPI)NonAf (>60 ml/min/1.73 sqM) Glucose (74-99) mg/dL POC Glucose (mg/dL) (75-99) mg/dL POC Glu Interior Design Director ID Calcium (8.4-10.2) mg/dL Magnesium (1.6-2.3) mg/dL Total Bilirubin (0.2-1.3) mg/dL AST (14-36) U/L ALT (9-52) U/L Alkaline Phosphatase (38-126) U/L Total Creatine Kinase 58 (30-135) U/L CK-MB (CK-2) 0.9 (0.0-2.4) ng/mL CK-MB (CK-2) Rel Index 1.6 Troponin I 0.050 H* (0.000-0.034) ng/mL Total Protein (6.3-8.2) g/dL Albumin (3.5-5.0) g/dL Urine Color Light Yellow Urine Appearance Clear (Clear) Urine pH 7.0 (5.0-8.0) Ur Specific [place] 1.008 (1.001-1.035) Urine Protein Negative (Negative) Urine Glucose (UA) Negative (Negative) Urine Ketones Negative (Negative) Urine Blood Negative (Negative) Urine Nitrite Negative (Negative) Urine Bilirubin Negative (Negative) Urine Urobilinogen <2.0 (<2.0) mg/dL Ur Leukocyte Esterase Negative (Negative) Salicylates mg/dL Urine Opiates Screen Not Detected (NotDetected) Ur Oxycodone Screen Detected H (NotDetected) Urine Methadone Screen Not Detected (NotDetected) Ur Propoxyphene Screen Not Detected (NotDetected) Acetaminophen ug/mL Ur Barbiturates Screen Detected H (NotDetected) U Tricyclic Antidepress Not Detected (NotDetected) Ur Phencyclidine Scrn Not Detected (NotDetected) Ur Amphetamines Screen Not Detected (NotDetected) U Methamphetamines Scrn Not Detected (NotDetected) U Benzodiazepines Scrn Detected H (NotDetected) Urine Cocaine Screen Not Detected (NotDetected) U Marijuana (THC) Screen Not Detected (NotDetected) Serum Alcohol mg/dL 11/22/18 Range/Units 18:43 WBC (3.8-10.6) k/uL RBC (3.80-5.40) m/uL Hgb (11.4-16.0) gm/dL Hct (34.0-46.0) % MCV (80.0-100.0) fL MCH (25.0-35.0) pg MCHC (31.0-37.0) g/dL RDW (11.5-15.5) % Plt Count (150-450) k/uL Neutrophils % % Lymphocytes % % Monocytes % % Eosinophils % % Basophils % % Neutrophils # (1.3-7.7) k/uL Lymphocytes # (1.0-4.8) k/uL Monocytes # (0-1.0) k/uL Eosinophils # (0-0.7) k/uL Basophils # (0-0.2) k/uL Hypochromasia Anisocytosis Macrocytosis PT (9.0-12.0) sec INR (<1.2) APTT (22.0-30.0) sec Sample Site LRAD ABG pH 7.45 (7.35-7.45) ABG pCO2 62 H (35-45) mmHg ABG pO2 335 H (83-108) mmHg ABG HCO3 43 H* (21-25) mmol/L ABG Total CO2 45 H (19-24) mmol/L ABG O2 Saturation 99.9 H (94-97) % ABG Base Excess 18.8 mmol/L Warner Test Yes FiO2 100 % Sodium (137-145) mmol/L Potassium (3.5-5.1) mmol/L Chloride (98-107) mmol/L Carbon Dioxide (22-30) mmol/L Anion Gap mmol/L BUN (7-17) mg/dL Creatinine (0.52-1.04) mg/dL Est GFR (CKD-EPI)AfAm (>60 ml/min/1.73 sqM) Est GFR (CKD-EPI)NonAf (>60 ml/min/1.73 sqM) Glucose (74-99) mg/dL POC Glucose (mg/dL) (75-99) mg/dL POC Glu Interior Design Director ID Calcium (8.4-10.2) mg/dL Magnesium (1.6-2.3) mg/dL Total Bilirubin (0.2-1.3) mg/dL AST (14-36) U/L ALT (9-52) U/L Alkaline Phosphatase (38-126) U/L Total Creatine Kinase (30-135) U/L CK-MB (CK-2) (0.0-2.4) ng/mL CK-MB (CK-2) Rel Index Troponin I (0.000-0.034) ng/mL Total Protein (6.3-8.2) g/dL Albumin (3.5-5.0) g/dL Urine Color Urine Appearance (Clear) Urine pH (5.0-8.0) Ur Specific [place] (1.001-1.035) Urine Protein (Negative) Urine Glucose (UA) (Negative) Urine Ketones (Negative) Urine Blood (Negative) Urine Nitrite (Negative) Urine Bilirubin (Negative) Urine Urobilinogen (<2.0) mg/dL Ur Leukocyte Esterase (Negative) Salicylates mg/dL Urine Opiates Screen (NotDetected) Ur Oxycodone Screen (NotDetected) Urine Methadone Screen (NotDetected) Ur Propoxyphene Screen (NotDetected) Acetaminophen ug/mL Ur Barbiturates Screen (NotDetected) U Tricyclic Antidepress (NotDetected) Ur Phencyclidine Scrn (NotDetected) Ur Amphetamines Screen (NotDetected) U Methamphetamines Scrn (NotDetected) U Benzodiazepines Scrn (NotDetected) Urine Cocaine Screen (NotDetected) U Marijuana (THC) Screen (NotDetected) Serum Alcohol mg/dL - EKG Data -: EKG Interpreted by Me (EKG shows sinus rhythm rate of 95, IA 134, QRS 80, QTC 480) - Radiology Data Radiology results: report reviewed (CT brain chest x-ray shows CHF CTA chest negative for PE), image reviewed Critical Care Time Critical Care Time: Yes Total Critical Care Time: 31 Disposition Clinical Impression: Altered mental status, History of multiple sclerosis, Drug overdose, Delirium due to general medical condition, CHF (congestive heart failure) Disposition: ADMITTED IP TO THIS [facility] Condition: Serious Instructions (If sedation given, give patient instructions): Altered Mental Status (ED) Is patient prescribed a controlled substance at d/c from ED?: No Referrals: Kilo Tabares MD [Primary Care Provider] - 1-2 days
[2018-11-22 17:17] LABS: Amphetamine Screen,Urine Not Detected (NotDetected); Barbiturate Screen,Urine Detected (NotDetected); Benzodiazepines Screen,Urine Detected (NotDetected); Cocaine Screen,Urine Not Detected (NotDetected); Methadone Screen, Urine Not Detected (NotDetected); Opiate Screen,Urine Not Detected (NotDetected); Oxycodone Screen, Urine Detected (NotDetected); Phencyclidine Screen,Urine Not Detected (NotDetected); Tricyclic Antidepressant,Urine Not Detected (NotDetected); Urn Cannabinoid Scrn Not Detected (NotDetected)
[2018-11-22 17:18] LABS: ALT 43 U/L (9-52); AST 25 U/L (14-36); Acetaminophen <10.0 ug/mL; African American GFR (CKD) >90 (>60 ml/min/1.73 sqM); Albumin 4.3 g/dL (3.5-5.0); Alcohol <10 mg/dL; Alkaline Phosphatase 100 U/L (38-126); Anion Gap 7 mmol/L; Blood Urea Nitrogen 9 mg/dL (7-17); Calcium 9.4 mg/dL (8.4-10.2); Chloride 92 mmol/L (98-107); Glucose 138 mg/dL (74-99); Magnesium 1.9 mg/dL (1.6-2.3); Potassium 4.1 mmol/L (3.5-5.1); Salicylate <1.0 mg/dL; Sodium 139 mmol/L (137-145); Total Bilirubin 0.7 mg/dL (0.2-1.3); Total Protein 6.7 g/dL (6.3-8.2)
[2018-11-22 17:22] LABS: Prothrombin Time 10.4 sec (9.0-12.0)
[2018-11-22 17:25] LABS: Carbon Dioxide 40 mmol/L (22-30)
[2018-11-22 17:33] LABS: Partial Thromboplastin Time 21.2 sec (22.0-30.0)
[2018-11-22 17:40] LABS: Creatine Kinase MB 0.9 ng/mL (0.0-2.4)
[2018-11-22 17:45] LABS: Troponin I 0.05 ng/mL (0.000-0.034)
--- NOTE | 2018-11-22 17:46 | CT ---
EXAMINATION TYPE: CT brain wo con DATE OF EXAM: 11/22/2018 HISTORY: Unresponsive. Patient coughing during exam CT DLP: 1129.4 mGycm. Automated Exposure Control for Dose Reduction was Utilized. TECHNIQUE: CT scan of the head is performed without contrast. COMPARISON: CT brain August 17, 2018. FINDINGS: There is no acute intracranial hemorrhage or midline shift identified. Ventricles and sul ci are within normal limits in size for patient's age. [place]-white matter differentiation is fairly w ell maintained. The calvarium is intact. The globes are intact and the visualized sinuses are clear. IMPRESSION: No acute intracranial hemorrhage or midline shift. No significant change from prior.
--- NOTE | 2018-11-22 17:48 | XR ---
EXAMINATION TYPE: XR chest 1V portable DATE OF EXAM: 11/22/2018 COMPARISON: Chest x-ray October 31, 2018. HISTORY: Chest pain. TECHNIQUE: Single AP portable frontal upright view of the chest is obtained. FINDINGS: Diminished inspiration is seen on current study. There is no suspicious focal focal air sp sherita opacity, pleural effusion, or pneumothorax seen. The cardiac silhouette size is preps mildly enl arged with mild central vascular congestion. The osseous structures are intact. IMPRESSION: Correlate for CHF exacerbation as there is mild cardiomegaly with perhaps new mild centr al vascular congestion.
--- NOTE | 2018-11-22 17:51 | CT ---
EXAMINATION TYPE: CT angio chest DATE OF EXAM: 11/22/2018 COMPARISON: CT chest March 25, 2017 HISTORY: Unresponsive. Patient coughing during exam CT DLP: 819 mGycm. Automated Exposure Control for Dose Reduction was Utilized. CONTRAST: CTA scan of the thorax is performed with IV Contrast, patient injected with 100 mL of Isovue 370, pul monary embolism protocol. MIP Images are created on CT scanner and reviewed. FINDINGS: Exam suboptimal as there is respiratory motion artifact degradation along with patient's la rge body habitus. Suboptimal evaluation of subcentimeter nodules LUNGS: There is some diffuse groundglass opacity bilaterally. No suspicious focal consolidation. No o bvious pulmonary masses. There is no pleural effusion or pneumothorax seen. The tracheobronchial sandy e is patent. MEDIASTINUM: There is suboptimal bolus with near equal contrast in the right and left heart systems b ut there is no CT evidence for pulmonary embolism. There are no greater than 1 cm hilar or mediastin al lymph nodes. Enlarged main pulmonary artery is identified, CT findings consistent with underlying pulmonary hypertension. No pericardial effusion is seen. Cardiomegaly is redemonstrated. Reflux of c ontrast into hepatic veins and IVC suggests right heart failure. OTHER: There is simple appearing 1.7 cm thin-walled cyst left hepatic lobe anteriorly. IMPRESSION: Suboptimal study without CT evidence for acute pulmonary embolism. Possible CHF exacerbat ion as there is cardiomegaly with mild bilateral alveolar edema felt present. No suspicious focal inf iltrate noted.
[2018-11-22 18:46] LABS: ABG Base Excess 18.8 mmol/L; ABG Oxygen Saturation 99.9 % (94-97); ABG PCO2 62 mmHg (35-45); ABG PH 7.45 (7.35-7.45); ABG PO2 335 mmHg (83-108); ABG TCO2 45 mmol/L (19-24); Allen Test Performed? Yes
[2018-11-22 18:51] LABS: ABG HCO3 43 mmol/L (21-25)
[2018-11-22] MEDS ORDERED: NALOXONE 0.4 MG/ML 1 ML VIAL IV PRN (19:34)
[2018-11-22] MEDS: IPRATROPIUM-ALBUTEROL 3 ML NEB INHALATION SCH (20:58)
[2018-11-22] MEDS: DEXTROSE 5%-0.45% NACL 1,000 ML IV SCH (20:58)
--- NOTE | 2018-11-22 21:54 | P.CNNES ---
History of Present Illness Consult date: 11/22/18 Requesting physician: Grabiel Garrido Reason for Consult: MS Chief complaint: Stuttering speech and whole body electrical shock History of Present Illness: This is a 53 RH female with RRMS followed by Dr. Bates in outpatient neurology. She is known to me from a prior hospitalization earlier this month when she presented with stuttering speech and diffuse weakness. She received 3 days of Solumedrol 1g total/day followed by prednisone taper. She states that when she got down to a lower dose, she started stuttering plus had episodic sensation of whole-body electrical shock. She was noted earlier to be unresponsive to sternal rub per [employer], but by the time she was taken to the ER, she was noted to be more awake and alert. She was not intubated. Patient is adamant that she never took an OD and that her current neuro symptoms are all due to her MS. She would like the diagnosis of OD be struck from her medical records. She is anxiously waiting for her Ocrevus infusion in early 12/2018. Review of Systems I have performed a 14-point ROS performed and as per HPI. Past Medical History Past Medical History: Asthma, Cancer, COPD, Fibromyalgia, GERD/Reflux, Hypertension, Neurologic Disorder, Osteoarthritis (OA), Syncope Additional Past Medical History / Comment(s): Rheumatic fever, heart murmur, osteoporosis, chronic bronchitis, MS,vertigo, lexiscan stress test. History of Any Multi-Drug Resistant Organisms: None Reported Past Surgical History: Bladder Surgery, Heart Catheterization, Hysterectomy Additional Past Surgical History / Comment(s): uterine cancer, radiation,NERVE BLOCKS Past Anesthesia/Blood Transfusion Reactions: No Reported Reaction Additional Past Anesthesia/Blood Transfusion Reaction / Comment(s): mild clausterphobia Past Psychological History: Anxiety, Depression Smoking Status: Current every day smoker Past Alcohol Use History: Occasional Past Drug Use History: None Reported - Past Family History Mother Family Medical History: CVA/TIA, Myocardial Infarction ([place]) Additional Family Medical History / Comment(s): Mother is alive at age 73 with history of brain aneurysm, 3 strokes and 2 myocardial infarctions. Father Additional Family Medical History / Comment(s): Father at age 72 from a cardiac arrest thought to be due to a myocardial infarction. Sister(s) Additional Family Medical History / Comment(s): Patient has 2 sisters with no major medical problems. Patient does not have any brothers. Patient has 2 children ages 34 and 27 with no major medical problems. Patient is only family member with MS. Medications and Allergies Home Medications Medication Instructions Recorded Confirmed Type Albuterol Inhaler [Ventolin Hfa 2 puff INHALATION RT-Q6H PRN 02/20/14 11/22/18 History Inhaler] Aspirin 81 mg PO DAILY 02/20/14 11/22/18 History LORazepam [Ativan] 1 mg PO Q8H PRN 02/20/14 11/22/18 History Verapamil HCl 120 mg PO DAILY 02/20/14 11/22/18 History Gabapentin [Neurontin] 1,200 mg PO TID 08/19/16 11/22/18 History Butalb/APAP/Caff 50-325-40Mg 1 tab PO Q8H PRN 03/25/17 11/22/18 History [Fioricet 50-325-40] oxyCODONE-APAP 10-325MG [Percocet 1 tab PO TID PRN 01/28/18 11/22/18 History 10-325 mg] rOPINIRole HCL [Requip] 0.25 mg PO TID #90 tab 01/31/18 11/22/18 Rx Docusate [Colace] 100 mg PO DAILY PRN 04/02/18 11/22/18 History Albuterol Nebulized [Ventolin 2.5 mg INHALATION RT-Q6H PRN 05/06/18 11/22/18 History Nebulized] Budesonide/Formoterol Fumarate 2 puff INHALATION RT-BID 05/06/18 11/22/18 History [Symbicort 160-4.5 Mcg Inhaler] Cholecalciferol [Vitamin D3 (25 1,000 unit PO DAILY 05/07/18 11/22/18 History Mcg = 1000 Iu)] Multivitamins, Thera [Multivitamin 1 tab PO DAILY 05/07/18 11/22/18 History (formulary)] PARoxetine [Paxil] 40 mg PO DAILY tab 05/09/18 11/22/18 Rx Pantoprazole Sodium [Protonix] 40 mg PO BID 10/31/18 11/22/18 History Fluticasone Nasal [place] [Flonase 2 spray EA NOSTRIL DAILY #1 spr 11/03/18 11/22/18 Rx Nasal [place]] Baclofen [Lioresal] 10 mg PO QID 11/22/18 11/22/18 History Ipratropium-Albuterol Nebulize 3 ml INHALATION RT-QID 11/22/18 11/22/18 History [Duoneb 0.5 mg-3 mg/3 ml Soln] Memantine [Namenda] 10 mg PO BID 11/22/18 11/22/18 History Montelukast [Singulair] 10 mg PO DAILY 11/22/18 11/22/18 History Allergies Allergy/AdvReac Type Severity Reaction Status Date / Time No Known Allergies Allergy Verified 11/22/18 17:17 Physical Examination - Vital Signs Vital Signs: Vital Signs Temp Pulse Resp BP Pulse Ox 11/22/18 21:09 83 11/22/18 20:58 80 11/22/18 20:30 92 17 155/133 96 11/22/18 20:01 88 18 125/80 96 11/22/18 19:30 91 19 135/94 94 L 11/22/18 19:00 72 11/22/18 18:25 75 10 L 114/90 95 11/22/18 18:01 77 16 126/85 95 11/22/18 17:50 79 11/22/18 17:31 82 11/22/18 17:20 88 22 131/88 98 11/22/18 16:53 16 11/22/18 16:45 87 16 148/97 97 11/22/18 16:36 99.1 F 96 10 L 165/98 71 L Intake and Output 11/22/18 11/22/18 11/22/18 06:59 14:59 22:59 Intake Total 1000 Output Total 820 Balance 180 Intake: IV 1000 Sodium Chloride 0.9% 1, 1000 000 ml @ 999 mls/hr IV . Q1H1M STA Rx#:[id number] Output: Urine 820 Other: Weight 104 kg Gen NAD Pleasant and cooperative HEENT NCAT Sclera without icterus Dry blood around nose O/P clear Neck Supple No carotid bruit Cor RRR no m/r/g Lungs CTAB Abd Soft NTND +BS Ext Warm to touch No edema Neuro MS A+Ox4 Stuttering speech Able to articulate detailed medical history Able to follow all commands CN PERRL VFF no APD EOMI no nystagmus or ROGER No facial asymmetry [place]'s symmetric Hearing intact to normal voice bilaterally Speech stuttering but not dysarthric Equal elevation of palate Tongue midline Sym shrug and SCM bilaterally Motor Normal bulk/tone Bilateral pronator drift No tremors Strength 4+/5 sym throughout Sens Intact to LT x4 No neglect or extinction Coord No dysmetria on FTN bilaterally DTRs 2+/4 sym throughout Toes downgoing bilaterally No clonus at achilles Gait Deferred Results - Laboratory Findings CBC and BMP: 11/22/18 16:42 11/22/18 16:42 Abnormal Lab Findings: Abnormal Labs 11/22/18 11/22/18 11/22/18 16:33 16:42 16:42 WBC 17.5 H Hct 51.6 H MCV 101.9 H MCHC 30.6 L RDW 16.4 H Neutrophils # 11.4 H Lymphocytes # 4.9 H APTT ABG pCO2 ABG pO2 ABG HCO3 ABG Total CO2 ABG O2 Saturation Chloride 92 L Carbon Dioxide 40 H Glucose 138 H POC Glucose (mg/dL) 139 H Troponin I Ur Oxycodone Screen Ur Barbiturates Screen U Benzodiazepines Scrn 11/22/18 11/22/18 11/22/18 16:42 16:42 16:42 WBC Hct MCV MCHC RDW Neutrophils # Lymphocytes # APTT 21.2 L ABG pCO2 ABG pO2 ABG HCO3 ABG Total CO2 ABG O2 Saturation Chloride Carbon Dioxide Glucose POC Glucose (mg/dL) Troponin I 0.050 H* Ur Oxycodone Screen Detected H Ur Barbiturates Screen Detected H U Benzodiazepines Scrn Detected H 11/22/18 18:43 WBC Hct MCV MCHC RDW Neutrophils # Lymphocytes # APTT ABG pCO2 62 H ABG pO2 335 H ABG HCO3 43 H* ABG Total CO2 45 H ABG O2 Saturation 99.9 H Chloride Carbon Dioxide Glucose POC Glucose (mg/dL) Troponin I Ur Oxycodone Screen Ur Barbiturates Screen U Benzodiazepines Scrn - Diagnostic Findings Additional findings: CT Head wo cont 11/22/18. Nil acute. I have reviewed all neuroimages myself. Assessment and Plan Assessment: RRMS- unclear if she has another exacerbation; maybe pseudo-exacerbation Acute toxic encephalopathy- UDS positive for oxycodone, TCA and benzodiazepine. She is much better now. Plan: -Long discussion held with patient regarding pulse glucocorticoids. She would not want to get another infection that may hinder her response to Ocrevus in early 12/2018 -MRI brain w wo lazaro -Will decide whether to proceed with steroids once we have more objective evidence of whether she has active/new disease -d/w patient in detail. All questions answered. Thank you for this consultation. Please call with ?. Time with Patient: Greater than 30 (Time spent in direct patient care, greater than 50% of which was spent in [id number] counseling and coordination of care: 70 minutes.)
[2018-11-22 22:14] LABS: Glucose,Whole Blood 152 mg/dL (75-99)
[2018-11-23] MEDS: NICOTINE 21MG/24HR PATCH TRANSDERM SCH ×2 (00:15→11:21)
[2018-11-23] MEDS: DEXAMETHASONE SOD PHOSPHATE 4 MG/ML 1 ML VIAL IV SCH ×4 (00:21→18:48)
[2018-11-23 01:08] VITALS: BMI 37.0
[2018-11-23 05:22] LABS: Anisocytosis Slight; Basophils % (A) 0 %; Eosinophils # (A) 0.1 k/uL (0-0.7); Eosinophils % (A) 1 %; HCT 51.3 % (34.0-46.0); HGB 14.9 gm/dL (11.4-16.0); Hypochromasia Marked; Lymphocytes # (A) 1.5 k/uL (1.0-4.8); Lymphocytes % (A) 12 %; MCH 30.3 pg (25.0-35.0); MCHC 29.1 g/dL (31.0-37.0); MCV 104.1 fL (80.0-100.0); Macrocytosis Moderate; Monocytes # (A) 0.3 k/uL (0-1.0); Monocytes % (A) 2 %; Neutrophils # (A) 10.6 k/uL (1.3-7.7); Neutrophils % (A) 84 %; Platelet Count 173 k/uL (150-450); RBC 4.93 m/uL (3.80-5.40); RDW 16.5 % (11.5-15.5); WBC 12.7 k/uL (3.8-10.6)
[2018-11-23 05:35] LABS: ALT 33 U/L (9-52); AST 20 U/L (14-36); African American GFR (CKD) >90 (>60 ml/min/1.73 sqM); Alkaline Phosphatase 78 U/L (38-126); Anion Gap 6 mmol/L; Blood Urea Nitrogen 7 mg/dL (7-17); Calcium 9.3 mg/dL (8.4-10.2); Carbon Dioxide 39 mmol/L (22-30); Chloride 95 mmol/L (98-107); Glucose 153 mg/dL (74-99); Potassium 4.7 mmol/L (3.5-5.1); Sodium 140 mmol/L (137-145); Total Bilirubin 0.6 mg/dL (0.2-1.3); Total Protein 6.1 g/dL (6.3-8.2)
[2018-11-23] MEDS ORDERED: DOCUSATE 100 MG CAP PO PRN (07:13)
--- NOTE | 2018-11-23 07:13 | P.CNPUL ---
History of Present Illness Consult date: 11/23/18 Reason for consult: hypoxemia History of present illness: 53-year-old female patient, who has been followed up by neurology Dr. Ramirez on outpatient basis regarding history of MS. The patient came into the emergency department with a stuttering speech and diminished level of consciousness in addition to diffuse weakness. She apparently received 3 days of IV Solu Medrol 1 g on a daily basis followed by prednisone. She stated that upon taper of the steroids she started having stuttering in addition to some episodic sensation of all by the electrical sensations/shocking sensation. In the emergency department initially she was quite diminished in terms of her mentation. I discussed the case with the emergency doctor. The patient was protecting her airway. She was not intubated. Her blood gas showed a pH of 7.45 with a pCO2 of 62 and pO2 of 70 on 35 and this was done 100% FiO2. Urine drug screen is positive for oxycodone, barbiturates and benzodiazepine. Urine drug screen was negative for the rest. Alcohol level was less than 10. UA was negative. There was some minimal troponin leak with troponin level of 0.05. The CAT scan of the brain was done and MRSA department and showed no acute abnormalities. There was no significant change compared to the previous study. CT angios the chest was also done and the study was suboptimal without evidence of any pulmonary embolism. There was some diffuse groundglass changes without any suspicious consolidation. No focal infiltrates. The patient had an echocardiogram during her early hospitalization of 11/01/2018 and the patient had a normal ejection fraction of 55-60%. There was diastolic heart filling. Last the valvular structures were all within normal limits. This patient has history of COPD/asthma. She's been battling MS for several years. No reported aspiration. Her other medical problems including fibromyalgia, acid reflux, hypertension, osteoarthritis, osteoporosis and remote history of uterine cancer post-hysterectomy and radiation therapy. This morning she is fully alert and awake. Upon further discussion, she denies taking any excessive medication. The nursing staff and I gave her Narcan on 2 separate occasions and they feel that she responded to Narcan treatment. As such there may be possibility of narcotic medication overdose. The urine tox is positive for oxycodone. He is hemodynamically stable. No hypotension pH is producing adequate amount of urine output. Currently she is on 6 L of oxygen by nasal cannula to maintain a saturation above 90%. He was placed on stress dose Decadron 4 mg every 6 hours. She was also evaluated by neurology. Review of Systems Constitutional: Denies chills, Denies fever Eyes: denies blurred vision, denies pain Ears, nose, mouth and throat: Denies headache, Denies sore throat Cardiovascular: Denies chest pain, no evidence of any congestion heart failure based on a previous echocardiogram. No palpitation. No angina. Respiratory: Denies cough, she is short of breath especially with activity and she is also hypoxic as mentioned above Gastrointestinal: Denies abdominal pain, Denies diarrhea, Denies nausea, Denies vomiting Genitourinary: Denies dysuria, Denies hematuria Musculoskeletal: Denies myalgias Integumentary: Denies pruritus, Denies rash Neurological: She had diminished level of consciousness, some psychiatric and mood changes including manic/hypomanic type of behavior at a time of arrival, she also has manifestations of MS including numbness and tingling in intensive shocks and difficulty with mobility. She has also frequent falls. Psychiatric: Denies anxiety, Denies depression Endocrine: Denies fatigue, Denies weight change Past Medical History Past Medical History: Asthma, Cancer, COPD, Fibromyalgia, GERD/Reflux, Hypertension, Neurologic Disorder, Osteoarthritis (OA), Syncope Additional Past Medical History / Comment(s): Rheumatic fever, heart murmur, osteoporosis, chronic bronchitis, MS of the relapsing remitting type, hypertension, fibromyalgia, COPD, uterine cancer, asthma, osteoarthritis, chronic vertigo History of Any Multi-Drug Resistant Organisms: None Reported Past Surgical History: Bladder Surgery, Heart Catheterization, Hysterectomy Additional Past Surgical History / Comment(s): uterine cancer, radiation,NERVE BLOCKS Past Anesthesia/Blood Transfusion Reactions: No Reported Reaction Additional Past Anesthesia/Blood Transfusion Reaction / Comment(s): mild clausterphobia Past Psychological History: Anxiety, Depression Additional Psychological History / Comment(s): Pt resides alone. She uses a cane or walker .She has a private hire nurse aide who organizers her meds in brand planner but pt manages her own meds,assists her with her ADLs. This aide also prepares meals/shopping. Pt does not drive, she has her friends take her to appts. Pt states: "I feel comfortable with the way things are at home right now." Smoking Status: Current every day smoker Past Alcohol Use History: Occasional Additional Past Alcohol Use History / Comment(s): Patient is a smoker of less than one pack per day and has smoked on and off for 20 years. She denies any marijuana or street drug use. She is and lives alone. Past Drug Use History: None Reported - Past Family History Mother Family Medical History: CVA/TIA, Myocardial Infarction ([place]) Additional Family Medical History / Comment(s): Mother is alive at age 73 with history of brain aneurysm, 3 strokes and 2 myocardial infarctions. Father Additional Family Medical History / Comment(s): Father at age 72 from a cardiac arrest thought to be due to a myocardial infarction. Sister(s) Additional Family Medical History / Comment(s): Patient has 2 sisters with no major medical problems. Patient does not have any brothers. Patient has 2 children ages 34 and 27 with no major medical problems. Patient is only family member with MS. Medications and Allergies Home Medications Medication Instructions Recorded Confirmed Type Albuterol Inhaler [Ventolin Hfa 2 puff INHALATION RT-Q6H PRN 02/20/14 11/22/18 History Inhaler] Aspirin 81 mg PO DAILY 02/20/14 11/22/18 History LORazepam [Ativan] 1 mg PO Q8H PRN 02/20/14 11/22/18 History Verapamil HCl 120 mg PO DAILY 02/20/14 11/22/18 History Gabapentin [Neurontin] 1,200 mg PO TID 08/19/16 11/22/18 History Butalb/APAP/Caff 50-325-40Mg 1 tab PO Q8H PRN 03/25/17 11/22/18 History [Fioricet 50-325-40] oxyCODONE-APAP 10-325MG [Percocet 1 tab PO TID PRN 01/28/18 11/22/18 History 10-325 mg] rOPINIRole HCL [Requip] 0.25 mg PO TID #90 tab 01/31/18 11/22/18 Rx Docusate [Colace] 100 mg PO DAILY PRN 04/02/18 11/22/18 History Albuterol Nebulized [Ventolin 2.5 mg INHALATION RT-Q6H PRN 05/06/18 11/22/18 History Nebulized] Budesonide/Formoterol Fumarate 2 puff INHALATION RT-BID 05/06/18 11/22/18 History [Symbicort 160-4.5 Mcg Inhaler] Cholecalciferol [Vitamin D3 (25 1,000 unit PO DAILY 05/07/18 11/22/18 History Mcg = 1000 Iu)] Multivitamins, Thera [Multivitamin 1 tab PO DAILY 05/07/18 11/22/18 History (formulary)] PARoxetine [Paxil] 40 mg PO DAILY tab 05/09/18 11/22/18 Rx Pantoprazole Sodium [Protonix] 40 mg PO BID 10/31/18 11/22/18 History Fluticasone Nasal [place] [Flonase 2 spray EA NOSTRIL DAILY #1 spr 11/03/18 11/22/18 Rx Nasal [place]] Baclofen [Lioresal] 10 mg PO QID 11/22/18 11/22/18 History Ipratropium-Albuterol Nebulize 3 ml INHALATION RT-QID 11/22/18 11/22/18 History [Duoneb 0.5 mg-3 mg/3 ml Soln] Memantine [Namenda] 10 mg PO BID 11/22/18 11/22/18 History Montelukast [Singulair] 10 mg PO DAILY 11/22/18 11/22/18 History Allergies Allergy/AdvReac Type Severity Reaction Status Date / Time No Known Allergies Allergy Verified 11/22/18 17:17 Physical Exam Vitals: Vital Signs Temp Pulse Resp BP Pulse Ox 11/23/18 06:00 82 16 139/78 95 11/23/18 05:00 91 18 131/74 96 11/23/18 04:00 98.4 F 73 9 L 147/90 95 11/23/18 03:00 65 10 L 150/102 94 L 11/23/18 02:00 75 12 120/76 94 L 11/23/18 01:00 69 9 L 115/71 94 L 11/23/18 00:00 85 16 117/99 95 11/22/18 23:45 5 L 11/22/18 23:00 90 10 L 90 L 11/22/18 22:48 98.1 F 91 18 121/86 93 L 11/22/18 22:10 18 11/22/18 21:41 17 11/22/18 21:09 83 11/22/18 20:58 80 11/22/18 20:30 92 17 155/133 96 11/22/18 20:01 88 18 125/80 96 11/22/18 19:30 91 19 135/94 94 L 11/22/18 19:00 72 11/22/18 18:25 75 10 L 114/90 95 11/22/18 18:01 77 16 126/85 95 11/22/18 17:50 79 11/22/18 17:31 82 11/22/18 17:20 88 22 131/88 98 11/22/18 16:53 16 11/22/18 16:45 87 16 148/97 97 11/22/18 16:36 99.1 F 96 10 L 165/98 71 L Intake and Output 11/22/18 11/22/18 11/23/18 14:59 22:59 06:59 Intake Total 1000 930 Output Total 820 1080 Balance 180 -150 Intake: IV 1000 480 Dextrose 5%-0.45% NaCl 1, 480 000 ml @ 80 mls/hr IV . [id number] ANDREAS Rx#:[id number] Sodium Chloride 0.9% 1, 1000 000 ml @ 999 mls/hr IV . Q1H1M STA Rx#:[id number] Oral 450 Output: Urine 820 1080 Other: Voiding Method Indwelling Catheter Weight 104 kg 105.4 kg GENERAL EXAM: Alert, following commands and answering questions currently on 6 L about 2 by nasal cannula and there is no apparent signs of respiratory distress HEAD: Normocephalic/atraumatic. EYES: Normal reaction of pupils, equal size. Conjunctiva pink, sclera white. NOSE: Clear with pink turbinates. THROAT: No erythema or exudates. NECK: No masses, no JVD, no thyroid enlargement, no adenopathy. CHEST: No chest wall deformity. Symmetrical expansion. LUNGS: Equal air entry with no crackles, wheeze, rhonchi or dullness. CVS: Regular rate and rhythm, normal S1 and S2, no gallops, no murmurs, no rubs ABDOMEN: Soft, nontender. No hepatosplenomegaly, normal bowel sounds, no guarding or rigidity. EXTREMITIES: No clubbing, no edema, no cyanosis, 2+ pulses and upper and lower extremities. MUSCULOSKELETAL: Muscle strength and tone normal. SPINE: No scoliosis or deformity SKIN: No rashes CENTRAL NERVOUS SYSTEM: Alert and oriented -3. No focal deficits, tone is normal in all 4 extremities. Time of arrival to the hospital the patient is stuttering speech however she was able to articulate details of previous history. There was no facial asymmetry no nystagmus and extraocular muscles were all intact. Tongue was in the midline. She still having some minimal amount of stuttering. Motor function is diminished throughout with +4/5 strength. Sensory is intact. No neglect. DTRs are +2 over 4 symmetrical bilaterally. Babinski's downgoing. PSYCHIATRIC: Alert and oriented -3. Appropriate affect. Intact judgment and insight. Results - Laboratory Findings CBC and BMP: 11/23/18 04:54 11/23/18 04:54 ABG ABG pH 7.45 (7.35-7.45) 11/22/18 18:43 ABG pCO2 62 mmHg (35-45) H 11/22/18 18:43 ABG pO2 335 mmHg (83-108) H 11/22/18 18:43 ABG O2 Saturation 99.9 % (94-97) H 11/22/18 18:43 PT/INR, D-dimer PT 10.4 sec (9.0-12.0) 11/22/18 16:42 INR 1.0 (<1.2) 11/22/18 16:42 Abnormal lab findings: Abnormal Labs 11/22/18 11/22/18 11/22/18 16:33 16:42 16:42 WBC 17.5 H Hct 51.6 H MCV 101.9 H MCHC 30.6 L RDW 16.4 H Neutrophils # 11.4 H Lymphocytes # 4.9 H APTT ABG pCO2 ABG pO2 ABG HCO3 ABG Total CO2 ABG O2 Saturation Chloride 92 L Carbon Dioxide 40 H Glucose 138 H POC Glucose (mg/dL) 139 H Troponin I Total Protein Ur Oxycodone Screen Ur Barbiturates Screen U Benzodiazepines Scrn 11/22/18 11/22/18 11/22/18 16:42 16:42 16:42 WBC Hct MCV MCHC RDW Neutrophils # Lymphocytes # APTT 21.2 L ABG pCO2 ABG pO2 ABG HCO3 ABG Total CO2 ABG O2 Saturation Chloride Carbon Dioxide Glucose POC Glucose (mg/dL) Troponin I 0.050 H* Total Protein Ur Oxycodone Screen Detected H Ur Barbiturates Screen Detected H U Benzodiazepines Scrn Detected H 11/22/18 11/22/18 11/23/18 18:43 22:11 00:38 WBC Hct MCV MCHC RDW Neutrophils # Lymphocytes # APTT ABG pCO2 62 H ABG pO2 335 H ABG HCO3 43 H* ABG Total CO2 45 H ABG O2 Saturation 99.9 H Chloride Carbon Dioxide Glucose POC Glucose (mg/dL) 152 H Troponin I 0.035 H* Total Protein Ur Oxycodone Screen Ur Barbiturates Screen U Benzodiazepines Scrn 11/23/18 11/23/18 04:54 04:54 WBC 12.7 H Hct 51.3 H MCV 104.1 H MCHC 29.1 L RDW 16.5 H Neutrophils # 10.6 H Lymphocytes # APTT ABG pCO2 ABG pO2 ABG HCO3 ABG Total CO2 ABG O2 Saturation Chloride 95 L Carbon Dioxide 39 H Glucose 153 H POC Glucose (mg/dL) Troponin I Total Protein 6.1 L Ur Oxycodone Screen Ur Barbiturates Screen U Benzodiazepines Scrn - Diagnostic Findings Chest x-ray: image reviewed CT scan - chest: image reviewed Assessment and Plan Plan: 1 chronic multiple sclerosis of the relapsing remitting type, received multiple doses of IV Solu-Medrol and outpatient basis under the care of Dr. Ramirez. The patient presented with generalized weakness, altered mentation, stuttering speech and sensory changes as the patient was being tapered off the steroids. Neurologic exam the case. CAT scan of the brain is negative. Consider pseudo-exacerbation of MS 2 acute toxic encephalopathy with a positive urine drug screen towards oxycodone, barbiturates and benzodiazepine. The patient didn't respond to Narcan 3 acute hypoxic respiratory failure currently 6 L O2 by nasal cannula in addition to diffuse bilateral groundglass changes. Consider aspiration. Consider acute lung injury secondary to above he had the echocardiogram is within normal limits and this was done few months back. 4 history of COPD/asthma the patient continues to smoke cigarettes medicine on Symbicort and Singulair on outpatient basis 5 minimal troponin leak, nonspecific, 6 obesity. 7 chronic ALLERGIC rhinitis 8 hypertension 9 chronic smoking 10 fibromyalgia Plan In terms of the acute hypoxic respiratory failure, the patient is improving and the patient was weaned down to 2 L of oxygen nasal cannula. She'll be provided incentive spirometer. A bedside swallow evaluation was done and the patient is able to swallow. We'll provide with food. A swallow evaluation was done back in 2018 and the patient did fine. The patient will be restarted back on her routine medication. Neurology follow-up. No active pulmonary critical care issues at this point in time. We'll chest with this patient out to a medical surgical floor.
[2018-11-23] MEDS ORDERED: PANTOPRAZOLE 40 MG TABLET PO SCH (07:30)
[2018-11-23] MEDS: ENOXAPARIN 40 MG/0.4 ML SYRINGE SQ SCH (08:09)
[2018-11-23] MEDS: CHOLECALCIFEROL 1,000 UNIT TAB PO SCH (08:10)
[2018-11-23] MEDS: ASPIRIN 81 MG PO SCH (08:10)
[2018-11-23] MEDS: MULTIVITAMINS, THERA 1 EACH TAB PO SCH (08:10)
[2018-11-23] MEDS: PARoxetine 20 MG TAB PO SCH (08:10)
[2018-11-23] MEDS: MONTELUKAST 10 MG TAB PO SCH (08:10)
[2018-11-23] MEDS: VERAPAMIL SR 120 MG TABLET.ER PO SCH (08:11)
[2018-11-23] MEDS: oxyCODONE-APAP 10-325MG 1 EACH TAB PO PRN ×3 (08:11→22:12)
[2018-11-23] MEDS: MEMANTINE 10 MG TAB PO SCH ×2 (08:11→22:03)
[2018-11-23] MEDS: BUTALB/APAP/CAFF 50-325-40MG TAB PO PRN ×3 (08:14→22:11)
[2018-11-23] MEDS: IPRATROPIUM-ALBUTEROL 3 ML NEB INHALATION SCH ×4 (09:47→19:50)
[2018-11-23] MEDS: SYMBICORT 160-4.5 MCG INHALER INHALATION SCH ×3 (09:47→19:50)
[2018-11-23] MEDS: DEXTROSE 5%-0.45% NACL 1,000 ML IV SCH (10:59)
[2018-11-23] MEDS: GABAPENTIN 400 MG CAP PO SCH ×3 (11:21→22:03)
--- NOTE | 2018-11-23 11:53 | CONS ---
CONSULTATION CHIEF COMPLAINT: Elevated troponin. Hudson is a 53-year-old lady with history of multiple sclerosis who was admitted to hospital with exacerbation of multiple sclerosis and possible overdose. We have been consulted because of mildly elevated troponin. Her troponin is at 0.05 and 0.03 very similar to where she had been on prior admissions. She does not have any chest pain or difficulty in breathing. I believe the troponin elevation is of no clear clinical significance. PAST MEDICAL HISTORY: Significant for multiple sclerosis, COPD. MEDICATIONS: Medications at home included Percocet, verapamil, Protonix, Singulair, Namenda, Ativan, Colace, aspirin and albuterol. ALLERGIES: There are no known drug allergies. FAMILY HISTORY: Family history is negative for premature coronary artery disease. SOCIAL HISTORY: Social history is negative for smoking, EtOH abuse, or drug abuse. REVIEW OF SYSTEMS: HEENT is unremarkable. CARDIAC: As described above. RESPIRATORY: As described above. GI: Negative. GENITOURINARY: Negative. Rest of the system review is not relevant. PHYSICAL EXAMINATION: On exam, comfortable at rest. Vital signs are stable. Chest exam reveals good air entry bilaterally. Heart exam reveals first and second heart sounds. No gallop. Examination of the extremities did not reveal any edema. Abdomen is soft, nontender. EKG shows sinus rhythm with nonspecific ST-T wave changes. Enzymes are elevated as described above. ASSESSMENT: Mild troponin elevation of unclear clinical significance. Patient had normal coronaries on a cardiac catheterization in the recent past. I will obtain a 2D echo to assess LV function and wall motion. No other cardiac workup is needed. MMODL / IJN: [id number] /
--- NOTE | 2018-11-23 12:33 | P.HPIM ---
History of Present Illness H&P Date: 11/23/18 Chief Complaint: Metabolic encephalopathy/MS. This is a 53-year-old female one of Dr. Tabares and Dr. Ramirez with a previous medical history significant for relapsing remitting multiple sclerosis, hypertension and hypertensive cardio vascular disease with left ventricular hypertrophy, history of GERD, multiple sclerosis, COPD, asthma, history of osteoporosis, uterine cancer status post surgery, patient was recently hospitalized at [facility] in 11/01/2018 for acute exacerbation of MS she was placed on IV Solu-Medrol at that time followed by taper dose of steroid she stated that she was down to 1 tablet of prednisone a day that just started yesterday, he shouldn't stated that she developed to have a significant flareup of her MS on the weaned down off her prednisone with electrical shocks throughout her body including upper and lower extremities she could not use her walker she tried to move herself with a walker however she felt extremely weak and ended up landing on the floor her friend came and called EMS and brought her to the emergency department at [facility] initially the patient was extremely have tended in the blood gases were done in the emergency department and she was not intubated as the patient become more and more alert and urine drug screen did not show any evidence of any street drugs, was positive for oxycodone barbiturates and benzodiazepine as well, patient was admitted to intensive care unit she was seen in consultation by cardiology as well as by pulmonary and critical medicine she was also seen in consultation by neurology. The patient will be admitted to the hospital for evaluation of acute toxic metabolic encephalopathy likely related to her medications and the patient stated that she did take 2 Benadryl at was along with Ativan and the rest of her medication that could be what triggered her mental status changes. Review of Systems Constitutional: Reports chronic headaches, Reports chronic pain, Reports fatigue, Reports malaise, Reports weakness, Denies anorexia Eyes: denies blurred vision, denies bulging eye, denies decreased vision Ears, nose, mouth and throat: Denies dysphagia, Denies neck lump, Denies swelling in throat, Denies sore throat Cardiovascular: Denies chest pain, Denies decreased exercise tolerance, Denies dyspnea on exertion, Denies leg edema, Denies lightheadedness, Denies palpitations, Denies rapid heart beat, Denies shortness of breath, Denies syncope Respiratory: Denies congestion, Denies cough, Denies home oxygen, Denies sleep a pnea, Denies snoring, Denies wheezing Gastrointestinal: Denies abdominal pain, Denies belching, Denies BRBPR, Denies change in bowel habits, Denies heartburn, Denies melena, Denies nausea, Denies vomiting Genitourinary: Denies dysuria, Denies nocturia Menstruation: Reports post hysterectomy, Reports postmenopausal Musculoskeletal: Reports gait dysfunction, Reports muscle weakness, Reports shooting arm pain, Reports shooting leg pain Musculoskeletal: absent: ankle pain, ankle stiffness, ankle swelling, elbow pain, elbow stiffness, elbow swelling, foot pain, foot stiffness, foot swelling, hand pain, hand stiffness, hand swelling, hip pain, hip stiffness, hip swelling, knee pain, knee stiffness, knee swelling, shoulder pain, shoulder stiffness, shoulder swelling, wrist pain, wrist stiffness, wrist swelling Integumentary: Denies pruritus, Denies rash Neurological: Reports ataxia, Reports balance difficulties, Reports gait dysfunction, Reports headaches, Reports numbness, Reports paresthesias, Reports sensory deficit, Reports tingling, Reports weakness, Reports visual changes, Denies tremors Psychiatric: Denies anxiety, Denies depression Endocrine: Denies fatigue, Denies weight change Past Medical History Past Medical History: Asthma, Cancer, COPD, Fibromyalgia, GERD/Reflux, Hypertension, Neurologic Disorder, Osteoarthritis (OA), Syncope Additional Past Medical History / Comment(s): Rheumatic fever, heart murmur, osteoporosis, chronic bronchitis, MS of the relapsing remitting type, hyperten [place], fibromyalgia, COPD, uterine cancer, asthma, osteoarthritis, chronic vertigo History of Any Multi-Drug Resistant Organisms: None Reported Past Surgical History: Bladder Surgery, Heart Catheterization, Hysterectomy Additional Past Surgical History / Comment(s): uterine cancer, radiation,NERVE BLOCKS Past Anesthesia/Blood Transfusion Reactions: No Reported Reaction Additional Past Anesthesia/Blood Transfusion Reaction / Comment(s): mild clausterphobia Past Psychological History: Anxiety, Depression Additional Psychological History / Comment(s): Pt resides alone. She uses a cane or walker .She has a private hire nurse aide who organizers her meds in land use planner but pt manages her own meds,assists her with her ADLs. This aide also prepares meals/shopping. Pt does not drive, she has her friends take her to [employer]. Pt states: "I feel comfortable with the way things are at home right now." Smoking Status: Current every day smoker Past Alcohol Use History: Occasional Additional Past Alcohol Use History / Comment(s): Patient is a smoker of less than one pack per day and has smoked on and off for 20 years. She denies any marijuana or street drug use. She is and lives alone. Past Drug Use History: None Reported - Past Family History Mother Family Medical History: CVA/TIA, Myocardial Infarction (MD) Additional Family Medical History / Comment(s): Mother is alive at age 73 with history of brain aneurysm, 3 strokes and 2 myocardial infarctions. Father Additional Family Medical History / Comment(s): Father at age 72 from a cardiac arrest thought to be due to a myocardial infarction. Sister(s) Additional Family Medical History / Comment(s): Patient has 2 sisters with no major medical problems. Patient does not have any brothers. Patient has 2 chil dren ages 34 and 27 with no major medical problems. Patient is only family member with MS. Medications and Allergies Home Medications Medication Instructions Recorded Confirmed Type Albuterol Inhaler [Ventolin Hfa 2 puff INHALATION RT-Q6H PRN 02/20/14 11/22/18 History Inhaler] Aspirin 81 mg PO DAILY 02/20/14 11/22/18 History LORazepam [Ativan] 1 mg PO Q8H PRN 02/20/14 11/22/18 History Verapamil HCl 120 mg PO DAILY 02/20/14 11/22/18 History Gabapentin [Neurontin] 1,200 mg PO TID 08/19/16 11/22/18 History Butalb/APAP/Caff 50-325-40Mg 1 tab PO Q8H PRN 03/25/17 11/22/18 History [Fioricet 50-325-40] oxyCODONE-APAP 10-325MG [Percocet 1 tab PO TID PRN 01/28/18 11/22/18 History 10-325 mg] rOPINIRole HCL [Requip] 0.25 mg PO TID #90 tab 01/31/18 11/22/18 Rx Docusate [Colace] 100 mg PO DAILY PRN 04/02/18 11/22/18 History Albuterol Nebulized [Ventolin 2.5 mg INHALATION RT-Q6H PRN 05/06/18 11/22/18 History Nebulized] Budesonide/Formoterol Fumarate 2 puff INHALATION RT-BID 05/06/18 11/22/18 History [Symbicort 160-4.5 Mcg Inhaler] Cholecalciferol [Vitamin D3 (25 1,000 unit PO DAILY 05/07/18 11/22/18 History Mcg = 1000 Iu)] Multivitamins, Thera [Multivitamin 1 tab PO DAILY 05/07/18 11/22/18 History (formulary)] PARoxetine [Paxil] 40 mg PO DAILY tab 05/09/18 11/22/18 Rx Pantoprazole Sodium [Protonix] 40 mg PO BID 10/31/18 11/22/18 History Fluticasone Nasal [place] [Flonase 2 spray EA NOSTRIL DAILY #1 spr 11/03/18 11/22/18 Rx Nasal [place]] Baclofen [Lioresal] 10 mg PO QID 11/22/18 11/22/18 History Ipratropium-Albuterol Nebulize 3 ml INHALATION RT-QID 11/22/18 11/22/18 History [Duoneb 0.5 mg-3 mg/3 ml Soln] Memantine [Namenda] 10 mg PO BID 11/22/18 11/22/18 History Montelukast [Singulair] 10 mg PO DAILY 11/22/18 11/22/18 History Allergies Allergy/AdvReac Type Severity Reaction Status Date / Time No Known Allergies Allergy Verified 11/22/18 17:17 Physical Exam Vitals: Vital Signs Temp Pulse Resp BP Pulse Ox 11/23/18 12:03 82 11/23/18 11:00 85 30 H 132/86 93 L 11/23/18 10:00 80 8 L 130/83 91 L 11/23/18 09:00 82 8 L 139/91 92 L 11/23/18 08:00 98.4 F 86 15 148/117 92 L 11/23/18 07:00 84 30 H 139/78 94 L 11/23/18 06:00 82 16 139/78 95 11/23/18 05:00 91 18 131/74 96 11/23/18 04:00 98.4 F 73 9 L 147/90 95 11/23/18 03:00 65 10 L 150/102 94 L 11/23/18 02:00 75 12 120/76 94 L 11/23/18 01:00 69 9 L 115/71 94 L 11/23/18 00:00 85 16 117/99 95 11/22/18 23:45 5 L 11/22/18 23:00 90 10 L 90 L 11/22/18 22:48 98.1 F 91 18 121/86 93 L 11/22/18 22:10 18 11/22/18 21:41 17 11/22/18 21:09 83 11/22/18 20:58 80 11/22/18 20:30 92 17 155/133 96 11/22/18 20:01 88 18 125/80 96 11/22/18 19:30 91 19 135/94 94 L 11/22/18 19:00 72 11/22/18 18:25 75 10 L 114/90 95 11/22/18 18:01 77 16 126/85 95 11/22/18 17:50 79 11/22/18 17:31 82 11/22/18 17:20 88 22 131/88 98 11/22/18 16:53 16 11/22/18 16:45 87 16 148/97 97 11/22/18 16:36 99.1 F 96 10 L 165/98 71 L Intake and Output 11/22/18 11/23/18 11/23/18 22:59 06:59 14:59 Intake Total 1000 1340 640 Output Total 820 1175 260 Balance 180 165 380 Intake: IV 1000 640 400 Dextrose 5%-0.45% NaCl 1, 640 400 000 ml @ 80 mls/hr IV . [id number] [facility] Rx#:[id number] Sodium Chloride 0.9% 1, 1000 000 ml @ 999 mls/hr IV . Q1H1M [facility] Rx#:[id number] Oral 700 240 Output: Urine 820 1175 260 Other: Voiding Method Indwelling Catheter Indwelling Catheter Weight 104 kg 105.4 kg Results CBC & Chem 7: 11/23/18 04:54 11/23/18 04:54 Labs: Abnormal Lab Results - Last 24 Hours (Table) 11/22/18 11/22/18 11/22/18 Range/Units 16:33 16:42 16:42 WBC 17.5 H (3.8-10.6) k/uL Hct 51.6 H (34.0-46.0) % MCV 101.9 H (80.0-100.0) fL MCHC 30.6 L (31.0-37.0) g/dL RDW 16.4 H (11.5-15.5) % Neutrophils # 11.4 H (1.3-7.7) k/uL Lymphocytes # 4.9 H (1.0-4.8) k/uL APTT (22.0-30.0) sec ABG pCO2 (35-45) mmHg ABG pO2 (83-108) mmHg ABG HCO3 (21-25) mmol/L ABG Total CO2 (19-24) mmol/L ABG O2 Saturation (94-97) % Chloride 92 L (98-107) mmol/L Carbon Dioxide 40 H (22-30) mmol/L Glucose 138 H (74-99) mg/dL POC Glucose (mg/dL) 139 H (75-99) mg/dL Troponin I (0.000-0.034) ng/mL Total Protein (6.3-8.2) g/dL Ur Oxycodone Screen (NotDetected) Ur Barbiturates Screen (NotDetected) U Benzodiazepines Scrn (NotDetected) 11/22/18 11/22/18 11/22/18 Range/Units 16:42 16:42 16:42 WBC (3.8-10.6) k/uL Hct (34.0-46.0) % MCV (80.0-100.0) fL MCHC (31.0-37.0) g/dL RDW (11.5-15.5) % Neutrophils # (1.3-7.7) k/uL Lymphocytes # (1.0-4.8) k/uL APTT 21.2 L (22.0-30.0) sec ABG pCO2 (35-45) mmHg ABG pO2 (83-108) mmHg ABG HCO3 (21-25) mmol/L ABG Total CO2 (19-24) mmol/L ABG O2 Saturation (94-97) % Chloride (98-107) mmol/L Carbon Dioxide (22-30) mmol/L Glucose (74-99) mg/dL POC Glucose (mg/dL) (75-99) mg/dL Troponin I 0.050 H* (0.000-0.034) ng/mL Total Protein (6.3-8.2) g/dL Ur Oxycodone Screen Detected H (NotDetected) Ur Barbiturates Screen Detected H (NotDetected) U Benzodiazepines Scrn Detected H (NotDetected) 11/22/18 11/22/18 11/23/18 Range/Units 18:43 22:11 00:38 WBC (3.8-10.6) k/uL Hct (34.0-46.0) % MCV (80.0-100.0) fL MCHC (31.0-37.0) g/dL RDW (11.5-15.5) % Neutrophils # (1.3-7.7) k/uL Lymphocytes # (1.0-4.8) k/uL APTT (22.0-30.0) sec ABG pCO2 62 H (35-45) mmHg ABG pO2 335 H (83-108) mmHg ABG HCO3 43 H* (21-25) mmol/L ABG Total CO2 45 H (19-24) mmol/L ABG O2 Saturation 99.9 H (94-97) % Chloride (98-107) mmol/L Carbon Dioxide (22-30) mmol/L Glucose (74-99) mg/dL POC Glucose (mg/dL) 152 H (75-99) mg/dL Troponin I 0.035 H* (0.000-0.034) ng/mL Total Protein (6.3-8.2) g/dL Ur Oxycodone Screen (NotDetected) Ur Barbiturates Screen (NotDetected) U Benzodiazepines Scrn (NotDetected) 11/23/18 11/23/18 Range/Units 04:54 04:54 WBC 12.7 H (3.8-10.6) k/uL Hct 51.3 H (34.0-46.0) % MCV 104.1 H (80.0-100.0) fL MCHC 29.1 L (31.0-37.0) g/dL RDW 16.5 H (11.5-15.5) % Neutrophils # 10.6 H (1.3-7.7) k/uL Lymphocytes # (1.0-4.8) k/uL APTT (22.0-30.0) sec ABG pCO2 (35-45) mmHg ABG pO2 (83-108) mmHg ABG HCO3 (21-25) mmol/L ABG Total CO2 (19-24) mmol/L ABG O2 Saturation (94-97) % Chloride 95 L (98-107) mmol/L Carbon Dioxide 39 H (22-30) mmol/L Glucose 153 H (74-99) mg/dL POC Glucose (mg/dL) (75-99) mg/dL Troponin I (0.000-0.034) ng/mL Total Protein 6.1 L (6.3-8.2) g/dL Ur Oxycodone Screen (NotDetected) Ur Barbiturates Screen (NotDetected) U Benzodiazepines Scrn (NotDetected) Thrombosis Risk Factor Assmnt - DVT/VTE Prophylaxis DVT/VTE Prophylaxis: Pharmacologic Prophylaxis ordered, Mechanical Prophylaxis ordered - Choose All That Apply Each Factor Represents 1 point: Abnormal pulmonary function (COPD), Age 41-60 years, Obesity (BMI >25) Thrombosis Risk Factor Assessment Total Risk Factor Score: 3 Thrombosis Risk Factor Assessment Level: Moderate Risk Assessment and Plan Assessment: Assessment and plan: 1. Metabolic encephalopathy likely related to medication use without any signs of overdose. Patient has recovered completely we'll continue the patient on her medication and monitor the patient very closely for the next 24 hours. Patient was seen in consultation by neurology who was thought that this is all related to multiple sclerosis without evidence of any acute injury. Continue Decadron 4 mg IV push every 6 hours . 2. Acute on chronic hypoxic respiratory failure due to atelectasis and possible aspiration pneumonia. Continue patient on oxygen at 2 urine is a cannula, continue DuoNeb 3 mg nebulization twice every day, monitor the patient very closely. 3. Relapsing remitting multiple sclerosis. Continue patient on Decadron 4 mg IV push every 6 hours , continue baclofen, monitor the patient very closely. 4. Chronic pain and occipital neuralgia under the care of Dr. Ramirez. Continue gabapentin 1200 mg 3 times daily, Percocet one 3 times daily as needed, Fioricet as needed. 5. Hypertension and hypertensive cardiovascular disease. Continue verapamil 120 mg orally once every day. 6. Obesity with possible obstructive sleep apnea and obesity hypoventilation syndrome. Recommend outpatient sleep study 7. Mild intermittent asthma and COPD. Continue nebulized treatment 4 times every day. Support with oxygen as needed. 8. Fibromyalgia. Continue gabapentin 1200 mg orally 3 times every day. 8. ALLERGIC rhinitis, stable. 9. Recurrent depression. Continue Paxil 40 mg daily. 10. Chronic tobacco use and dependence. Smoking cessation and counseling an increased risk of CAD, CVA, and malignancy. Continue nicotine patch 21 mg once every day. 11. Mild cognitive impairment. Continue patient on Namenda 10 mg orally twice every day. 13. Restless leg syndrome. Continue Requip 0.25 mg 2 times daily 14. DVT prophylaxis. Lovenox 40 mg subcutaneously every 24 hours , bilateral knee-high MAYUR hose. 15. GI prophylaxis. Continue with Protonix 40 mg orally twice every day. 16. Thrush. Continue nystatin swish and swallow 5 mL orally 4 times every day. 17. Admit to inpatient. Estimated length of stay 2 midnights. 18. Patient is full code.
--- NOTE | 2018-11-23 15:49 | P.CN ---
Psychiatric Consult - . Consult date: 11/23/18 Consult:: 11/23/18 15:35 Identification: Patient is a 53-year-old female who was brought into the emergency room with decreased responsiveness, altered mental status Reason for Consult: Overdose History of Present Illness: Patient's chart was reviewed the patient was seen and interviewed in her room no family members were present. Patient states that she did not take an overdose that she was taking her medications as they've been prescribed for her multiple medical problems as well as for what she describes as anxiety and panic attacks. Patient states that she has never been treated by a psychiatrist and has been placed on Ativan 1 mg 3 times a day for panic attacks as well as Paxil 40 mg a day for panic attacks. Patient states that she is never attempted suicide and is not feeling suicidal. She does not endorse a history of depression, katherine or psychosis. Patient states that she's never been admitted to an inpatient psychiatric facility. Patient states that she does have multiple sclerosis and was recently coming off of a taper of prednisone and states that she's been feeling more tired and blah on this taper as opposed when the past when she is on prednisone and has more energy. She states that her medications have not been adjusted recently. Patient did state that she was having itchiness and hives and so 3 days prior to admission had been taking 50 mg of Benadryl twice to 3 times a day. She states otherwise she has continued on her Percocets 3 times a day, gabapentin 1200 mg 3 times a day, the Ativan 1 mg 3 times a day, Paxil 40 mg a day patient is also on Requip, baclofen and Namenda as well as other medications. See below for her current list of patient's home medications Home Medications Medication Instructions Recorded Confirmed Albuterol Inhaler [Ventolin Hfa 2 puff INHALATION RT-Q6H PRN 02/20/14 11/22/18 Inhaler] Aspirin 81 mg PO DAILY 02/20/14 11/22/18 LORazepam [Ativan] 1 mg PO Q8H PRN 02/20/14 11/22/18 Verapamil HCl 120 mg PO DAILY 02/20/14 11/22/18 Gabapentin [Neurontin] 1,200 mg PO TID 08/19/16 11/22/18 Butalb/APAP/Caff 50-325-40Mg 1 tab PO Q8H PRN 03/25/17 11/22/18 [Fioricet 50-325-40] oxyCODONE-APAP 10-325MG [Percocet 1 tab PO TID PRN 01/28/18 11/22/18 10-325 mg] Docusate [Colace] 100 mg PO DAILY PRN 04/02/18 11/22/18 Albuterol Nebulized [Ventolin 2.5 mg INHALATION RT-Q6H PRN 05/06/18 11/22/18 Nebulized] Budesonide/Formoterol Fumarate 2 puff INHALATION RT-BID 05/06/18 11/22/18 [Symbicort 160-4.5 Mcg Inhaler] Cholecalciferol [Vitamin D3 (25 1,000 unit PO DAILY 05/07/18 11/22/18 Mcg = 1000 Iu)] Multivitamins, Thera [Multivitamin 1 tab PO DAILY 05/07/18 11/22/18 (formulary)] Pantoprazole Sodium [Protonix] 40 mg PO BID 10/31/18 11/22/18 Baclofen [Lioresal] 10 mg PO QID 11/22/18 11/22/18 Ipratropium-Albuterol Nebulize 3 ml INHALATION RT-QID 11/22/18 11/22/18 [Duoneb 0.5 mg-3 mg/3 ml Soln] Memantine [Namenda] 10 mg PO BID 11/22/18 11/22/18 Montelukast [Singulair] 10 mg PO DAILY 11/22/18 11/22/18 Previous Rx's Medication Instructions Recorded rOPINIRole HCL [Requip] 0.25 mg PO TID #90 tab 01/31/18 PARoxetine [Paxil] 40 mg PO DAILY tab 05/09/18 Fluticasone Nasal [place] [Flonase 2 spray EA NOSTRIL DAILY #1 spr 11/03/18 Nasal [place]] Past Psychiatric History: Patient has no prior inpatient or outpatient psychiatric treatment history. She states she was begun on Ativan for panic attacks as well as Paxil and has been kept on these medications for a number of years by her primary care physician. Patient takes the Ativan 1 mg 3 times a day and a regular basis. Past Medical/Surgical History: She states that she had rheumatic fever as a child, is diagnosed with hypertension, coronary artery disease, GERD, COPD, multiple sclerosis, vertigo osteoporosis, degenerative disc disease and rheumatoid arthritis. Patient is also status post bladder suspension surgery and status post hysterectomy for uterine cancer and was treated with radiation as well. Family History: Patient states that no one in the family that she is aware of is any psychiatric history, states that many of her mother's siblings have a history of substance use and there've been no completed suicides in Social History: Patient was born and raised in [place] and her father is . Mother is alive. She has 2 sisters and completed high school and attended college and then stopped. 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 She states that she also care for her father for 4 years states that she's been once and is and has 2 children. She currently lives alone and does have assistance with some of the activities of daily living at home. She denies any abuse history. Substance Use History: Patient stated that she did abuse alcohol in the past and was in a rehab program and denies any current alcohol use and denies any street drug use currently or in the past. Patient does use tobacco products Legal History: Patient was arrested for welfare fraud in the remote past Mental status: Appearance/Attitude: Patient is in a hospital gown, sitting in bed in no acute distress and makes eye contact and is cooperative Behavior: Patient does not exhibit any psychomotor agitation or retardation Speech/Language: Patient's speech is spontaneous, of normal volume, she does repeat phrases frequently, she is coherent Thought Process: Patient is goal-directed but can be circumstantial and needs redirection Thought Content: Patient denies any auditory or visual hallucinations no paranoid or delusional ideation is elicited. Patient is preoccupied with her multiple medical problems, states that she has never been depressed but does report having panic attacks in the past. She states that she is been treated with Ativan and Paxil for a number of years for panic attacks with good results. Patient reports no difficulties with her sleep or appetite. Suicidal/Homicidal Ideation: Patient denies any current suicidal or homicidal ideation Sensorium/Cognition: Patient is alert and oriented to person, place and time and her recent and remote memory are grossly intact Mood/Affect: Patient's mood was pleasant and her affect was appropriate to mood Insight/Judgment: Patient's insight and judgment are fair Assessment: Patient presents after becoming less responsive as well as having an altered mental status at home, I suspect this is due to a combination of her medications with the addition of Benadryl over the last 3 days in doses of 50 mg 2-3 times a day, combined with her Ativan, baclofen, gabapentin, Percocet most likely caused the patient to have an altered mental status. Patient denies that she was attempting to commit suicide and has no history of suicide attempts in the past patient has been treated for panic attacks for a number of years by her primary care physician with Paxil 40 mg and Ativan 1 mg 3 times a day. In reviewing the patient's prescription she has been on Ativan 1 mg 3 times a day consistently for some time as well as gabapentin, and Percocet 3 times a day. Patient has no history of suicide attempts, she does not endorse a history of psychotic symptoms, depressive symptoms or manic symptoms outside of treatment with prednisone and other steroids for her MS. These episodes of increased energy and mood as well as decreased energy and depressed mood all been related to her being on an tapered off of prednisone outside of these times the patient's mood has been stable. Diagnosis: Delirium, Unspecified anxiety disorder Plan: Patient's mental status has improved since the time of her admission, her delirium is resolving, I suspect that a combination of her medications as well as the addition of using 50 mg of Benadryl 2-3 times a day for the last 3 days caused the patient to become less responsive and confused. Patient does not require inpatient psychiatric treatment, she declines a referral for outpatient psychiatry stating that she is doing well and should she require such services she would request this in the future. Patient states that this was not an overdose attempt and she had been taking her medications as prescribed. Patient was advised to alert her physicians to her use of [id number] medications due to the multiple medications that she is currently taking. Patient's Ativan dose is now 0.5 mg 3 times a day and would suggest if it is being tapered to do it slowly so as not to precipitate withdrawal. I will sign off the case and if there are any further questions or concerns please and hesitate to contact me. 11/23/18 15:35 11/23/18 15:48
--- NOTE | 2018-11-23 15:50 | P.PN ---
Subjective Progress Note Date: 11/23/18 Principal diagnosis: RRMS ATE Elevated troponin. Cardiology consult. Patient started on lower dose glucocorticoid dexamethasone 4mg q6h. Patient is quite conversant but mostly anxious to get her MRI Brain and also her Ocrevus in early 12/2018. Objective - Vital Signs Vital signs: Vital Signs Temp 98.4 F 11/23/18 12:00 Pulse 95 11/23/18 15:00 Resp 22 11/23/18 15:00 BP 132/78 11/23/18 15:00 Pulse Ox 90 L 11/23/18 15:00 Intake & Output 11/22/18 11/23/18 11/23/18 18:59 06:59 18:59 Intake Total 2340 1680 Output Total 1994 660 Balance 345 1020 Weight 104 kg 105.4 kg Intake: IV 1640 720 Dextrose 5%-0.45% NaCl 1, 640 720 000 ml @ 80 mls/hr IV . [id number] [facility] Rx#:[id number] Sodium Chloride 0.9% 1, 1000 000 ml @ 999 mls/hr IV . Q1H1M [facility] Rx#:[id number] Oral 700 960 Output: Urine 1994 660 Other: Voiding Method Indwelling Catheter Indwelling Catheter - Exam Gen NAD Pleasant and cooperative MS A+Ox4 Stuttering less today Able to articulate detailed medical history Able to follow all commands CN PERRL VFF no APD EOMI no nystagmus or ROGER No facial asymmetry Masseter's symmetric Hearing intact to normal voice bilaterally Speech stuttering but not dysarthric Equal elevation of palate Tongue midline Sym shrug and SCM bilaterally Motor Normal bulk/tone Bilateral pronator drift No tremors Strength 4+/5 sym throughout Sens Intact to LT x4 No neglect or extinction Coord No dysmetria on FTN bilaterally DTRs 2+/4 sym throughout Toes downgoing bilaterally No clonus at achilles Gait Deferred - Labs CBC & Chem 7: 11/23/18 04:54 11/23/18 04:54 Labs: Abnormal Lab Results - Last 24 Hours (Table) 11/22/18 11/22/18 11/22/18 Range/Units 16:33 16:42 16:42 WBC 17.5 H (3.8-10.6) k/uL Hct 51.6 H (34.0-46.0) % MCV 101.9 H (80.0-100.0) fL MCHC 30.6 L (31.0-37.0) g/dL RDW 16.4 H (11.5-15.5) % Neutrophils # 11.4 H (1.3-7.7) k/uL Lymphocytes # 4.9 H (1.0-4.8) k/uL APTT (22.0-30.0) sec ABG pCO2 (35-45) mmHg ABG pO2 (83-108) mmHg ABG HCO3 (21-25) mmol/L ABG Total CO2 (19-24) mmol/L ABG O2 Saturation (94-97) % Chloride 92 L (98-107) mmol/L Carbon Dioxide 40 H (22-30) mmol/L Glucose 138 H (74-99) mg/dL POC Glucose (mg/dL) 139 H (75-99) mg/dL Troponin I (0.000-0.034) ng/mL Total Protein (6.3-8.2) g/dL Ur Oxycodone Screen (NotDetected) Ur Barbiturates Screen (NotDetected) U Benzodiazepines Scrn (NotDetected) 11/22/18 11/22/18 11/22/18 Range/Units 16:42 16:42 16:42 WBC (3.8-10.6) k/uL Hct (34.0-46.0) % MCV (80.0-100.0) fL MCHC (31.0-37.0) g/dL RDW (11.5-15.5) % Neutrophils # (1.3-7.7) k/uL Lymphocytes # (1.0-4.8) k/uL APTT 21.2 L (22.0-30.0) sec ABG pCO2 (35-45) mmHg ABG pO2 (83-108) mmHg ABG HCO3 (21-25) mmol/L ABG Total CO2 (19-24) mmol/L ABG O2 Saturation (94-97) % Chloride (98-107) mmol/L Carbon Dioxide (22-30) mmol/L Glucose (74-99) mg/dL POC Glucose (mg/dL) (75-99) mg/dL Troponin I 0.050 H* (0.000-0.034) ng/mL Total Protein (6.3-8.2) g/dL Ur Oxycodone Screen Detected H (NotDetected) Ur Barbiturates Screen Detected H (NotDetected) U Benzodiazepines Scrn Detected H (NotDetected) 11/22/18 11/22/18 11/23/18 Range/Units 18:43 22:11 00:38 WBC (3.8-10.6) k/uL Hct (34.0-46.0) % MCV (80.0-100.0) fL MCHC (31.0-37.0) g/dL RDW (11.5-15.5) % Neutrophils # (1.3-7.7) k/uL Lymphocytes # (1.0-4.8) k/uL APTT (22.0-30.0) sec ABG pCO2 62 H (35-45) mmHg ABG pO2 335 H (83-108) mmHg ABG HCO3 43 H* (21-25) mmol/L ABG Total CO2 45 H (19-24) mmol/L ABG O2 Saturation 99.9 H (94-97) % Chloride (98-107) mmol/L Carbon Dioxide (22-30) mmol/L Glucose (74-99) mg/dL POC Glucose (mg/dL) 152 H (75-99) mg/dL Troponin I 0.035 H* (0.000-0.034) ng/mL Total Protein (6.3-8.2) g/dL Ur Oxycodone Screen (NotDetected) Ur Barbiturates Screen (NotDetected) U Benzodiazepines Scrn (NotDetected) 11/23/18 11/23/18 Range/Units 04:54 04:54 WBC 12.7 H (3.8-10.6) k/uL Hct 51.3 H (34.0-46.0) % MCV 104.1 H (80.0-100.0) fL MCHC 29.1 L (31.0-37.0) g/dL RDW 16.5 H (11.5-15.5) % Neutrophils # 10.6 H (1.3-7.7) k/uL Lymphocytes # (1.0-4.8) k/uL APTT (22.0-30.0) sec ABG pCO2 (35-45) mmHg ABG pO2 (83-108) mmHg ABG HCO3 (21-25) mmol/L ABG Total CO2 (19-24) mmol/L ABG O2 Saturation (94-97) % Chloride 95 L (98-107) mmol/L Carbon Dioxide 39 H (22-30) mmol/L Glucose 153 H (74-99) mg/dL POC Glucose (mg/dL) (75-99) mg/dL Troponin I (0.000-0.034) ng/mL Total Protein 6.1 L (6.3-8.2) g/dL Ur Oxycodone Screen (NotDetected) Ur Barbiturates Screen (NotDetected) U Benzodiazepines Scrn (NotDetected) Assessment and Plan Assessment: RRMS- unclear if she has another exacerbation; maybe pseudo-exacerbation Acute toxic encephalopathy- UDS positive for oxycodone, TCA and benzodiazepine. Back to mental status baseline Plan: -Await MRI Brain w wo lazaro -Will decide whether to proceed with high-dose steroids once we have more objective evidence of whether she has active/new disease. She is on a much lower dose (started in the ER) than what we would typically use for true exacerbation. -Home neuro meds for RLS, occipital neuralgia and cognitive impairment restarted during inpatient -Undergoing cardiac workup now due to elevated troponin -d/w patient in detail. All questions answered. Thank you again for this consultation. Please call with ?. Time with Patient: Less than 30 (Time spent in direct patient care, greater than 50% of which was spent in [id number] counseling and coordination of care: 25 minutes)
[2018-11-23] MEDS: NYSTATIN 100,000 UNIT/ML SUSP 500,000 UNIT/5 ML CUP PO SCH ×3 (16:08→22:04)
[2018-11-23] MEDS: BACLOFEN 10 MG TAB PO SCH ×3 (16:08→22:03)
[2018-11-23] MEDS: LORazepam 0.5 MG TAB PO PRN ×2 (16:14→22:11)
[2018-11-23] MEDS: PANTOPRAZOLE 40 MG TABLET PO SCH (16:15)
[2018-11-23] MEDS: MELATONIN 3 MG TABLET PO SCH (22:03)
[2018-11-24] MEDS: DEXAMETHASONE SOD PHOSPHATE 4 MG/ML 1 ML VIAL IV SCH ×5 (00:43→23:00)
[2018-11-24] MEDS: DEXTROSE 5%-0.45% NACL 1,000 ML IV SCH ×3 (00:43→22:57)
[2018-11-24 06:01] LABS: Anisocytosis Slight; Basophils % (A) 0 %; Eosinophils % (A) 0 %; Hypochromasia Marked; Lymphocytes % (A) 8 %; MCH 31.4 pg (25.0-35.0); MCV 104.7 fL (80.0-100.0); Macrocytosis Moderate; Mean Platelet Volume 8.1; Monocytes # (A) 0.5 k/uL (0-1.0); Monocytes % (A) 4 %; Neutrophils # (A) 10.5 k/uL (1.3-7.7); Neutrophils % (A) 86 %; Platelet Count 176 k/uL (150-450); RBC 4.78 m/uL (3.80-5.40); RDW 16.7 % (11.5-15.5); WBC 12.2 k/uL (3.8-10.6)
[2018-11-24 06:22] LABS: African American GFR (CKD) >90 (>60 ml/min/1.73 sqM); Anion Gap 6 mmol/L; Blood Urea Nitrogen 9 mg/dL (7-17); Calcium 9.1 mg/dL (8.4-10.2); Carbon Dioxide 33 mmol/L (22-30); Chloride 102 mmol/L (98-107); Glucose 137 mg/dL (74-99); Potassium 4.3 mmol/L (3.5-5.1); Sodium 141 mmol/L (137-145)
[2018-11-24] MEDS: SYMBICORT 160-4.5 MCG INHALER INHALATION SCH ×2 (07:56→19:18)
[2018-11-24] MEDS: ASPIRIN 81 MG PO SCH (07:57)
[2018-11-24] MEDS: BACLOFEN 10 MG TAB PO SCH ×4 (07:57→22:51)
[2018-11-24] MEDS: IPRATROPIUM-ALBUTEROL 3 ML NEB INHALATION SCH ×4 (07:57→19:18)
[2018-11-24] MEDS: PANTOPRAZOLE 40 MG TABLET PO SCH ×2 (07:58→17:10)
[2018-11-24] MEDS: GABAPENTIN 400 MG CAP PO SCH ×3 (07:58→22:52)
[2018-11-24] MEDS: PARoxetine 20 MG TAB PO SCH (07:58)
[2018-11-24] MEDS: VERAPAMIL SR 120 MG TABLET.ER PO SCH (07:59)
[2018-11-24] MEDS: oxyCODONE-APAP 10-325MG 1 EACH TAB PO PRN ×3 (08:04→22:51)
[2018-11-24] MEDS: LORazepam 0.5 MG TAB PO PRN ×3 (08:05→22:50)
[2018-11-24] MEDS: BUTALB/APAP/CAFF 50-325-40MG TAB PO PRN ×3 (08:09→22:59)
[2018-11-24] MEDS: MEMANTINE 10 MG TAB PO SCH ×2 (08:10→22:51)
[2018-11-24] MEDS: CHOLECALCIFEROL 1,000 UNIT TAB PO SCH (09:36)
[2018-11-24] MEDS: MULTIVITAMINS, THERA 1 EACH TAB PO SCH (09:36)
[2018-11-24] MEDS: MONTELUKAST 10 MG TAB PO SCH (09:36)
--- NOTE | 2018-11-24 09:36 | MR ---
EXAMINATION TYPE: MR brain wo/w con DATE OF EXAM: 11/24/2018 COMPARISON: CT brain 11/22/2018, MR brain 01/30/2018 HISTORY: RRMS with worsening dysarthria/paresthesias TECHNIQUE: Multiplanar, multisequence images of the brain and brainstem is performed without and with IV contras t, utilizing 10 mL intravenous Gadavist . FINDINGS: Diffusion weighted images demonstrate no evidence of a recent infarct or other diffusion ab normality. There is no extra-axial fluid collection. Increased signal is present within the chioma an d inversion recovery T2-weighted sequences which is somewhat more conspicuous, prominent compared to prior exam. Scattered periventricular, subcortical, juxtacortical and pericallosal hyperintensities o n inversion recovery and T2-weighted sequences are again noted. Lesions are essentially stable in num any and distribution, there are approximately 50 lesions present. There are some lesions which have i ncreased slightly in size, or reference axial image 20 in left frontal lobe there is a lesion measuri ng 6.8 x 8.4 mm which on prior exam was measuring approximately 6 x 4 mm. Right frontal lesion axial image 16 shows AP diameter lesion measuring 6.6 mm where as on prior measured approximately 5.8 mm. T he ventricular system and cisternal spaces are normal in size and appearance. The brain volume is ag e appropriate. Midline structures demonstrate normal morphology. The craniocervical junction appears within normal limits. Post contrast images demonstrate no abnormal enhancement. The dural venous sinuses appear pa tent. The visualized sinuses are clear and the globes are intact. IMPRESSION: There has been some progression in white matter demyelination as described.
[2018-11-24] MEDS: ENOXAPARIN 40 MG/0.4 ML SYRINGE SQ SCH (09:37)
[2018-11-24] MEDS: FLUTICASONE 50MCG/SPRAY NASAL 16GM EA NOSTRIL SCH (09:43)
[2018-11-24] MEDS: NICOTINE 21MG/24HR PATCH TRANSDERM SCH (09:44)
[2018-11-24] MEDS: NYSTATIN 100,000 UNIT/ML SUSP 500,000 UNIT/5 ML CUP PO SCH ×3 (09:46→17:10)
--- NOTE | 2018-11-24 10:08 | P.PN ---
Subjective Progress Note Date: 11/24/18 Principal diagnosis: Acute hypoxic respiratory failure, the possibility of aspiration pneumonia versus acute lung injury, improved 53-year-old female patient, who has been followed up by neurology Dr. Ramirez on outpatient basis regarding history of MS. The patient came into the emergency department with a stuttering speech and diminished level of consciousness in addition to diffuse weakness. She apparently received 3 days of IV Solu Medrol 1 g on a daily basis followed by prednisone. She stated that upon taper of the steroids she started having stuttering in addition to some episodic sensation of all by the electrical sensations/shocking sensation. In the emergency department initially she was quite diminished in terms of her mentation. I discussed the case with the emergency doctor. The patient was protecting her airway. She was not intubated. Her blood gas showed a pH of 7.45 with a pCO2 of 62 and pO2 of 70 on 35 and this was done 100% FiO2. Urine drug screen is positive for oxycodone, barbiturates and benzodiazepine. Urine drug screen was negative for the rest. Alcohol level was less than 10. UA was negative. There was some minimal troponin leak with troponin level of 0.05. The CAT scan of the brain was done and MRSA department and showed no acute abnormalities. There was no significant change compared to the previous study. CT angios the chest was also done and the study was suboptimal without evidence of any pulmonary embolism. There was some diffuse groundglass changes without any suspicious consolidation. No focal infiltrates. The patient had an echocardiogram during her early hospitalization of 11/01/2018 and the patient h ad a normal ejection fraction of 55-60%. There was diastolic heart filling. Last the valvular structures were all within normal limits. This patient has history of COPD/asthma. She's been battling MS for several years. No reported aspiration. Her other medical problems including fibromyalgia, acid reflux, hypertension, osteoarthritis, osteoporosis and remote history of uterine cancer post-hysterectomy and radiation therapy. This morning she is fully alert and awake. Upon further discussion, she denies taking any excessive medication. The nursing staff and I gave her Narcan on 2 separate occasions and they feel that she responded to Narcan treatment. As such there may be possibility of narcotic medication overdose. The urine tox is positive for oxycodone. He is hemodynamically stable. No hypotension pH is producing adequate amount of urine output. Currently she is on 6 L of oxygen by nasal cannula to maintain a saturation above 90%. He was placed on stress dose Decadron 4 mg every 6 hours. She was also evaluated by neurology. On 11/24/2018 patient seen in follow-up in the intensive care unit. She is awake, alert, oriented 3, denies any acute distress, no numbness, no headaches, has a stuttering speech at times. No lethargy, no facial asymmetry. Denies any difficulty breathing, lung sounds are clear. On 3 l/min of oxygen and the pulse ox of 95%, she is afebrile, hemodynamically patient is stable. Blood culture showed no growth. No cough or congestion, no chest pain, today's labs have been reviewed, showing white blood cell count of 12.2, hemoglobin of 15.0, platelet count of 176, sodium of 141, potassium 4.3, chloride is 102, BUN of 9 and creatinine of 0.54. MRI of the brain was completed this morning showing some progression in the white matter demyelination. Patient continues on D5.45 at rate of 80 ML per hour, and dexamethasone at 4 mg every 6 hours. No pulmonary complaints. Objective - Vital Signs Vital signs: Vital Signs Temp 97.9 F 11/24/18 04:00 Pulse 67 11/24/18 04:00 Resp 19 11/24/18 04:00 BP 110/68 11/24/18 04:00 Pulse Ox 95 11/24/18 04:00 Intake & Output 11/23/18 11/24/18 11/24/18 18:59 06:59 18:59 Intake Total 2280 720 Output Total 1010 845 Balance 1270 -125 Weight 105.9 kg Intake: IV 960 720 Dextrose 5%-0.45% NaCl 1, 960 720 000 ml @ 80 mls/hr IV . [id number] [facility] Rx#:[id number] Oral 1320 Output: Urine 1010 845 Other: Voiding Method Indwelling Catheter Indwelling Catheter - Exam GENERAL EXAM: Alert, pleasant, 53-year-old -[place] female on 3 L of oxygen with a pulse ox of 95%, comfortable in no apparent distress, patient has a stuttering speech, which is somewhat fast HEAD: Normocephalic/atraumatic. EYES: Normal reaction of pupils, equal size. Conjunctiva pink, sclera white. NOSE: Clear with pink turbinates. THROAT: No erythema or exudates. NECK: No masses, no JVD, no thyroid enlargement, no adenopathy. CHEST: No chest wall deformity. Symmetrical expansion. LUNGS: Equal air entry with no crackles, wheeze, rhonchi or dullness. CVS: Regular rate and rhythm, normal S1 and S2, no gallops, no murmurs, no rubs ABDOMEN: Soft, nontender. No hepatosplenomegaly, normal bowel sounds, no guarding or rigidity. EXTREMITIES: No clubbing, no edema, no cyanosis, 2+ pulses and upper and lower extremities. MUSCULOSKELETAL: Muscle strength and tone normal. SPINE: No scoliosis or deformity SKIN: No rashes CENTRAL NERVOUS SYSTEM: Alert and oriented -3. No focal deficits, tone is normal in all 4 extremities. PSYCHIATRIC: Alert and oriented -3. Appropriate affect. Intact judgment and insight. - Labs CBC & Chem 7: 11/24/18 05:04 11/24/18 05:04 Labs: Abnormal Lab Results - Last 24 Hours (Table) 11/24/18 11/24/18 Range/Units 05:04 05:04 WBC 12.2 H (3.8-10.6) k/uL Hct 50.0 H (34.0-46.0) % MCV 104.7 H (80.0-100.0) fL MCHC 30.0 L (31.0-37.0) g/dL RDW 16.7 H (11.5-15.5) % Neutrophils # 10.5 H (1.3-7.7) k/uL Carbon Dioxide 33 H (22-30) mmol/L Glucose 137 H (74-99) mg/dL Microbiology - Last 24 Hours (Table) 11/22/18 16:42 Blood Culture - Preliminary Blood No Growth after 24 hours Assessment and Plan Plan: Assessment: 1 chronic multiple sclerosis of the relapsing remitting type, received multiple doses of IV Solu-Medrol and outpatient basis under the care of Dr. Ramirez. The patient presented with generalized weakness, altered mentation, stuttering speech and sensory changes as the patient was being tapered off the steroids. Neurologic exam the case. CAT scan of the brain is negative. Consider pseudo- exacerbation of MS 2 acute toxic encephalopathy with a positive urine drug screen towards oxycodone, barbiturates and benzodiazepine. The patient didn't respond to Narcan 3 acute hypoxic respiratory failure currently 6 L O2 by nasal cannula in addition to diffuse bilateral groundglass changes. Consider aspiration. Consider acute lung injury secondary to above he had the echocardiogram is within normal limits and this was done few months back. 4 history of COPD/asthma the patient continues to smoke cigarettes medicine on Symbicort and Singulair on outpatient basis 5 minimal troponin leak, nonspecific, 6 obesity. 7 chronic ALLERGIC rhinitis 8 hypertension 9 chronic smoking 10 fibromyalgia Plan: Continue with breathing treatments, Symbicort, no pulmonary complaints, wean FiO2, encourage deep breathing and coughing, maintain aspiration precautions, encourage deep breathing and coughing, incentive spirometry use. MRI of the brain results have been noted, nephrology is following, and stable to go out of intensive care unit regular general medical floor with remote telemetry. No active pulmonary issues right now. We will sign off and follow on as-needed basis I performed a history & physical examination of the patient and discussed their management with my nurse practitioner, Gay Hernandez. I reviewed the nurse practitioner's note and agree with the documented findings and plan of care. Lung sounds are positive for clear breath sounds. The findings and the impression was discussed with the patient. I attest to the documentation by the nurse practitioner. Time with Patient: Less than 30
[2018-11-24] MEDS ORDERED: methylPREDNISolone SOD SUCC 1,000 MG in SODIUM CHLORIDE 0.9% 250 ML IVPB SCH (14:00)
--- NOTE | 2018-11-24 14:05 | P.PN ---
Subjective Progress Note Date: 11/24/18 This is a 53-year-old female one of Dr. Tabares and Dr. Ramirez with a previous medical history significant for relapsing remitting multiple sclerosis, hypertension and hypertensive cardio vascular disease with left ventricular hypertrophy, history of GERD, multiple sclerosis, COPD, asthma, history of osteoporosis, uterine cancer status post surgery, patient was recently hospitalized at [facility] in 11/01/2018 for acute exacerbation of MS she was placed on IV Solu-Medrol at that time followed by taper dose of steroid she stated that she was down to 1 tablet of prednisone a day that just started yesterday, he shouldn't stated that she developed to have a significant flareup of her MS on the weaned down off her prednisone with electrical shocks throughout her body including upper and lower extremities she could not use her walker she tried to move herself with a walker however she felt extremely weak and ended up landing on the floor her friend came and called EMS and brought her to the emergency department at [facility] initially the patient was extremely have tended in the blood gases were done in the emergency department and she was not intubated as the patient become more and more alert and urine drug screen did not show any evidence of any street drugs, was positive for oxycodone barbiturates and benzodiazepine as well, patient was admitted to intensive care unit she was seen in consultation by cardiology as well as by pulmonary and critical medicine she was also seen in consultation by neurology. The patient will be admitted to the hospital for evaluation of acute toxic metabolic encephalopathy likely related to her medications and the patient stated that she did take 2 Benadryl at was along with Ativan and the rest of her medication that could be what triggered her mental status changes. 11/24: Patient has been seen by Dr. Kumari, unclear she is having another exacerbation, may be pseudo-exacerbation and has ordered MRI of the brain. MRI of the brain reveals some progression in white matter demyelination. Patient will be started on Solu-Medrol 1 g daily for [address] Kumari's recommendations. Patient has been seen by psychiatry suspecting that Benadryl contributed to her less response. Nose and confusion. No plan for inpatient psychiatric treatment and patient has declined outpatient treatment. She mentions tapering Ativan very slowly and Dr. Smith has signed off the case. Dr. Loja has evaluated for mild troponin elevation no clear acute coronary syndrome and no further workup other than echocardiogram. Patient is also been seen and followed by Dr. Rushing for intensive care management and patient is waiting for [facility]. Objective - Vital Signs Vital signs: Vital Signs Temp 97.9 F 11/24/18 04:00 Pulse 67 11/24/18 04:00 Resp 19 11/24/18 04:00 BP 110/68 11/24/18 04:00 Pulse Ox 95 11/24/18 04:00 Intake & Output 11/23/18 11/24/18 11/24/18 18:59 06:59 18:59 Intake Total 2280 720 Output Total 1010 845 Balance 1270 -125 Weight 105.9 kg Intake: IV 960 720 Dextrose 5%-0.45% NaCl 1, 960 720 000 ml @ 80 mls/hr IV . [id number] Rx#:[id number] Oral 1320 Output: Urine 1010 845 Other: Voiding Method Indwelling Catheter Indwelling Catheter - Exam Review of Systems Constitutional: Reports chronic headaches, Reports chronic pain, Reports fatigue, Reports malaise, Reports weakness, Denies anorexia Eyes: denies blurred vision, denies bulging eye, denies decreased vision Ears, nose, mouth and throat: Denies dysphagia, Denies neck lump, Denies swelling in throat, Denies sore throat Cardiovascular: Denies chest pain, Denies decreased exercise tolerance, Denies dyspnea on exertion, Denies leg edema, Denies lightheadedness, Denies palpitations, Denies rapid heart beat, Denies shortness of breath, Denies syncope Respiratory: Denies congestion, Denies cough, Denies home oxygen, Denies sleep apnea, Denies snoring, Denies wheezing Gastrointestinal: Denies abdominal pain, Denies belching, Denies BRBPR, Denies change in bowel habits, Denies heartburn, Denies melena, Denies nausea, Denies vomiting Genitourinary: Denies dysuria, Denies nocturia Menstruation: Reports post hysterectomy, Reports postmenopausal Musculoskeletal: Reports gait dysfunction, Reports muscle weakness, Reports shooting arm pain, Reports shooting leg pain Musculoskeletal: absent: ankle pain, ankle stiffness, ankle swelling, elbow pain, elbow stiffness, elbow swelling, foot pain, foot stiffness, foot swelling, hand pain, hand stiffness, hand swelling, hip pain, hip stiffness, hip swelling, knee pain, knee stiffness, knee swelling, shoulder pain, shoulder stiffness, shoulder swelling, wrist pain, wrist stiffness, wrist swelling Integumentary: Denies pruritus, Denies rash Neurological: Reports ataxia, Reports balance difficulties, Reports gait dysfunction, Reports headaches, Reports numbness, Reports paresthesias, Reports sensory deficit, Reports tingling, Reports weakness, Reports visual changes, Denies tremors Psychiatric: Denies anxiety, Denies depression Endocrine: Denies fatigue, Denies weight change General appearance: cooperative, no acute distress, morbidly obese, patient noticed to be stuttering - EENT Eyes: anicteric sclerae, EOMI, PERRLA, dentition normal, normal appearance ENT: hearing grossly normal, NA/AT, normal oropharynx - Neck occipital nerualgia , left, psotive tenderness, neg brudzinski, neg kernig Neck: normal ROM Thyroid: bilateral: normal size, negative: enlarged, firm, nodule - Respiratory Respiratory: bilateral: CTA, negative: diminished, dullness, rales, rhonchi - Cardiovascular Rhythm: regular Heart sounds: normal: S1, S2 Abnormal Heart Sounds: no systolic murmur, no diastolic murmur, no rub, no S3 Gallop, no S4 Gallop, no click, no other - Gastrointestinal General gastrointestinal: no absent bowel sounds, no decreased bowel sounds, no distended, no hepatomegaly, no hyperactive bowel sounds, normal bowel sounds, no organomegaly, no rigid, no scaphoid, soft, no splenomegaly, no tenderness, no umbilical hernia, no ventral hernia - Integumentary Integumentary: no calor, no cellulitis, no cyanotic, decreased turgor, no flushed, no jaundiced, normal, no normal turgor, no pale, no rash, no ulcer - Neurologic Patient is awake alert and oriented 3. Stuttering noted. Neurologic: CNII-XII intact - Musculoskeletal Musculoskeletal: generalized weakness, strength equal bilaterally - Psychiatric Psychiatric: A&O x's 3, appropriate affect, intact judgment & insight - Labs CBC & Chem 7: 11/24/18 05:04 11/24/18 05:04 Labs: Abnormal Lab Results - Last 24 Hours (Table) 11/24/18 11/24/18 Range/Units 05:04 05:04 WBC 12.2 H (3.8-10.6) k/uL Hct 50.0 H (34.0-46.0) % MCV 104.7 H (80.0-100.0) fL MCHC 30.0 L (31.0-37.0) g/dL RDW 16.7 H (11.5-15.5) % Neutrophils # 10.5 H (1.3-7.7) k/uL Carbon Dioxide 33 H (22-30) mmol/L Glucose 137 H (74-99) mg/dL Microbiology - Last 24 Hours (Table) 11/22/18 16:42 Blood Culture - Preliminary Blood No Growth after 24 hours Assessment and Plan Plan: 1. Metabolic encephalopathy likely related to medication use without any signs of overdose. Patient has recovered completely we'll continue the patient on her medication and monitor the patient very closely for the next 24 hours. Patient was seen in consultation by neurology who was thought that this is all related to multiple sclerosis without evidence of any acute injury. Discontinue Decadron and start Solu-Medrol 2. Acute on chronic hypoxic respiratory failure due to atelectasis and possible aspiration pneumonia. Continue patient on oxygen at 2 nasal cannula, continue DuoNeb 3 mg nebulization twice every day, monitor the patient very closely. Consult with Dr. Rushing appreciated. 3. Relapsing remitting multiple sclerosis with acute exacerbation. Decadron discontinued and patient started on Solu-Medrol 1 g daily. Continue baclofen, monitor the patient very closely. Consult with neurology appreciated. 4. Chronic pain and occipital neuralgia under the care of Dr. Ramirez. Continue gabapentin 1200 mg 3 times daily, Percocet one 3 times daily as needed, Fioricet as needed. 5. Hypertension and hypertensive cardiovascular disease. Continue verapamil 120 mg orally once every day. 6. Obesity with possible obstructive sleep apnea and obesity hypoventilation syndrome. Recommend outpatient sleep study 7. Mild intermittent asthma and COPD. Continue nebulized treatment 4 times every day. Support with oxygen as needed. 8. Fibromyalgia. Continue gabapentin 1200 mg orally 3 times every day. 8. ALLERGIC rhinitis, stable. 9. Recurrent depression. Continue Paxil 40 mg daily. 10. Chronic tobacco use and dependence. Smoking cessation and counseling an increased risk of CAD, CVA, and malignancy. Continue nicotine patch 21 mg once every day. 11. Mild cognitive impairment. Continue patient on Namenda 10 mg orally twice every day. 13. Restless leg syndrome. Continue Requip 0.25 mg 2 times daily 14. DVT prophylaxis. Lovenox 40 mg subcutaneously every 24 hours , bilateral k nee-high MAYUR hose. 15. GI prophylaxis. Continue with Protonix 40 mg orally twice every day. 16. Thrush. Continue nystatin swish and swallow 5 mL orally 4 times every day. Patient is full code. Return home To be determined Impression and plan of care have been directed as dictated by the signing physician. Elaine Nguyen nurse practitioner acting as scribe for signing physician.
[2018-11-24] MEDS: HYDROCHLOROTHIAZIDE 25 MG TAB PO SCH (16:09)
--- NOTE | 2018-11-24 16:20 | P.PN ---
Subjective Progress Note Date: 11/24/18 Principal diagnosis: RRMS ATE MRI Brain done. Primary team ordered SoluMedrol 1g x3d. Patient has many questions for me about her steroids and Ocrevus infusion in early 12/2018. No other neuro c/o. Objective - Vital Signs Vital signs: Vital Signs Temp 98.3 F 11/24/18 08:00 Pulse 89 11/24/18 11:45 Resp 16 11/24/18 11:39 BP 148/88 11/24/18 08:00 Pulse Ox 95 11/24/18 08:00 Intake & Output 11/23/18 11/24/18 11/24/18 18:59 06:59 18:59 Intake Total 2280 720 1140 Output Total 1010 845 650 Balance 1270 -125 490 Weight 105.9 kg Intake: IV 960 720 640 Dextrose 5%-0.45% NaCl 1, 960 720 640 000 ml @ 80 mls/hr IV . [id number] [facility] Rx#:[id number] Oral 1320 500 Output: Urine 1010 845 650 Other: Voiding Method Indwelling Catheter Indwelling Catheter Indwelling Catheter - Exam Gen NAD Pleasant and cooperative MS A+Ox4 Stuttering less today Able to articulate detailed medical history Able to follow all commands CN PERRL VFF no APD EOMI no nystagmus or ROGER No facial asymmetry Masseter's symmetric Hearing intact to normal voice bilaterally Speech stuttering but not dysarthric Equal elevation of palate Tongue midline Sym shrug and SCM bilaterally Motor Normal bulk/tone Bilateral pronator drift No tremors Strength 4+/5 sym throughout Sens Intact to LT x4 No neglect or extinction Coord No dysmetria on FTN bilaterally DTRs 2+/4 sym throughout Toes downgoing bilaterally No clonus at achilles Gait Deferred - Labs CBC & Chem 7: 11/24/18 05:04 11/24/18 05:04 Labs: Abnormal Lab Results - Last 24 Hours (Table) 11/24/18 11/24/18 Range/Units 05:04 05:04 WBC 12.2 H (3.8-10.6) k/uL Hct 50.0 H (34.0-46.0) % MCV 104.7 H (80.0-100.0) fL MCHC 30.0 L (31.0-37.0) g/dL RDW 16.7 H (11.5-15.5) % Neutrophils # 10.5 H (1.3-7.7) k/uL Carbon Dioxide 33 H (22-30) mmol/L Glucose 137 H (74-99) mg/dL Microbiology - Last 24 Hours (Table) 11/22/18 16:42 Blood Culture - Preliminary Blood No Growth after 24 hours - Imaging and Cardiology MRI - head: image reviewed (11/24/18 negative diffusion. 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 None of these lesions demonstrate abnormal enhancement post gadolinium administration.) Assessment and Plan Assessment: RRMS- unclear if she has another exacerbation; maybe pseudo-exacerbation. No true abnormal enhancement to suggest active disease. Progression of lesion load is compared with her 01/2018 study, but patient in fact that 2 additional outpatient MRI brains, and she is in fact comparatively stable when these additional images are taken into account Acute toxic encephalopathy- UDS positive for oxycodone, TCA and benzodiazepine. Back to mental status baseline Plan: -MRI Brain w wo lazaro results d/w patient in detail -Long discussion held with patient regarding the risks and benefits of high-dose pulse glucocorticoids. Last time she had an exacerbation and went through high- dose steroids, she developed an infection that adversely affected her Ocrevus infusion, which patient was/is very unhappy about, understandably so. After long discussion with all her MRI data, especially in the absence of abnormal enhancement to suggest active lesion, we will withhold high-dose SoluMedrol. Will continue her on dexamethasone 4mg IV q6h while she is in-house. After discharge, she will touch base with her regular outpatient neurologist about potential taper prior to her Ocrevus infusion that is scheduled in the near future. -Home neuro meds for RLS, occipital neuralgia and cognitive impairment restarted during inpatient -Await TTE. Apparently her clinical picture is not c/w ACS -d/w patient in detail. All questions answered. Thank you again for this consultation. Please call with ?. Time with Patient: Greater than 30 (Time spent in direct patient care, crit of 50% of which was spent in [id number] counseling and coordination of care: 35 minutes)
[2018-11-24 17:10] LABS: Glucose,Whole Blood 144 mg/dL (75-99)
[2018-11-24] MEDS: INSULIN ASPART (NovoLOG) 100 UNIT/ML VIAL SQ SCH ×2 (17:15→22:50)
[2018-11-24 20:39] LABS: Glucose,Whole Blood 160 mg/dL (75-99)
[2018-11-24 22:36] LABS: Glucose,Whole Blood 171 mg/dL (75-99)
[2018-11-24] MEDS: MELATONIN 3 MG TABLET PO SCH (22:51)
[2018-11-25] MEDS: NYSTATIN 100,000 UNIT/ML SUSP 500,000 UNIT/5 ML CUP PO SCH ×5 (00:32→23:53)
[2018-11-25] MEDS: DEXAMETHASONE SOD PHOSPHATE 4 MG/ML 1 ML VIAL IV SCH ×3 (05:08→19:12)
[2018-11-25 07:30] LABS: Glucose,Whole Blood 166 mg/dL (75-99)
[2018-11-25] MEDS: IPRATROPIUM-ALBUTEROL 3 ML NEB INHALATION SCH ×4 (07:56→19:19)
[2018-11-25] MEDS: SYMBICORT 160-4.5 MCG INHALER INHALATION SCH ×2 (07:56→19:19)
[2018-11-25] MEDS: ENOXAPARIN 40 MG/0.4 ML SYRINGE SQ SCH (08:44)
[2018-11-25] MEDS: PARoxetine 20 MG TAB PO SCH (08:45)
[2018-11-25] MEDS: BACLOFEN 10 MG TAB PO SCH ×4 (08:45→23:59)
[2018-11-25] MEDS: PANTOPRAZOLE 40 MG TABLET PO SCH ×2 (08:46→17:05)
[2018-11-25] MEDS: INSULIN ASPART (NovoLOG) 100 UNIT/ML VIAL SQ SCH ×4 (08:46→22:35)
[2018-11-25] MEDS: MULTIVITAMINS, THERA 1 EACH TAB PO SCH (08:47)
[2018-11-25] MEDS: GABAPENTIN 400 MG CAP PO SCH ×3 (08:47→23:59)
[2018-11-25] MEDS: HYDROCHLOROTHIAZIDE 25 MG TAB PO SCH (08:48)
[2018-11-25] MEDS: ASPIRIN 81 MG PO SCH (08:48)
[2018-11-25] MEDS: VERAPAMIL SR 120 MG TABLET.ER PO SCH (08:48)
[2018-11-25] MEDS: CHOLECALCIFEROL 1,000 UNIT TAB PO SCH (08:48)
[2018-11-25] MEDS: MONTELUKAST 10 MG TAB PO SCH (08:48)
[2018-11-25] MEDS: MEMANTINE 10 MG TAB PO SCH ×2 (08:48→23:59)
[2018-11-25] MEDS: NICOTINE 21MG/24HR PATCH TRANSDERM SCH (08:50)
[2018-11-25] MEDS: LORazepam 0.5 MG TAB PO PRN ×3 (08:50→17:03)
[2018-11-25] MEDS: BUTALB/APAP/CAFF 50-325-40MG TAB PO PRN ×2 (09:26→17:04)
[2018-11-25] MEDS: oxyCODONE-APAP 10-325MG 1 EACH TAB PO PRN ×2 (09:27→17:03)
[2018-11-25] MEDS: FLUTICASONE 50MCG/SPRAY NASAL 16GM EA NOSTRIL SCH (10:50)
[2018-11-25 11:51] LABS: Glucose,Whole Blood 113 mg/dL (75-99)
--- NOTE | 2018-11-25 13:02 | P.PN ---
Subjective Progress Note Date: 11/25/18 Principal diagnosis: RRMS ATE No acute events O/N. Awaiting TTE. Primary team ordered PT. Patient thinks she should be ready to go home either tomorrow evening or Thursday morning. Anxiously awaiting Ocrevus in a few weeks. No new neuro c/o. Objective - Vital Signs Vital signs: Vital Signs Temp 97.7 F 11/25/18 07:33 Pulse 80 11/25/18 11:26 Resp 15 11/25/18 07:33 BP 145/88 11/25/18 07:33 Pulse Ox 96 11/25/18 07:33 Intake & Output 11/24/18 11/25/18 11/25/18 18:59 06:59 18:59 Intake Total 1760 Output Total 1000 1425 Balance 760 -1425 Weight 108.5 kg Intake: IV 960 Dextrose 5%-0.45% NaCl 1, 960 000 ml @ 80 mls/hr IV . [id number] [facility] Rx#:[id number] Oral 800 Output: Urine 1000 1425 Uretheral (Kwan) 125 Other: Voiding Method Indwelling Catheter Indwelling Catheter Indwelling Catheter # Voids 1,900 # Bowel Movements 1 - Exam Gen NAD Pleasant and cooperative MS A+Ox4 Stuttering less today Able to articulate detailed medical history Able to follow all commands CN PERRL VFF no APD EOMI no nystagmus or ROGER No facial asymmetry Masseter's symmetric Hearing intact to normal voice bilaterally Speech stuttering but not dysarthric Equal elevation of palate Tongue midline Sym shrug and SCM bilaterally Motor Normal bulk/tone Bilateral pronator drift No tremors Strength 4+/5 sym throughout Sens Intact to LT x4 No neglect or extinction Coord No dysmetria on FTN bilaterally DTRs 2+/4 sym throughout Toes downgoing bilaterally No clonus at achilles Gait Deferred - Labs CBC & Chem 7: 11/24/18 05:04 11/24/18 05:04 Labs: Abnormal Lab Results - Last 24 Hours (Table) 11/24/18 11/24/18 11/24/18 Range/Units 17:09 20:38 22:34 POC Glucose (mg/dL) 144 H 160 H 171 H (75-99) mg/dL 11/25/18 11/25/18 Range/Units 07:27 11:46 POC Glucose (mg/dL) 166 H 113 H (75-99) mg/dL Microbiology - Last 24 Hours (Table) 11/22/18 16:42 Blood Culture - Preliminary Blood No Growth after 48 hours Assessment and Plan Assessment: RRMS- unclear if she has another exacerbation; maybe pseudo-exacerbation. No true abnormal enhancement to suggest active disease. Acute toxic encephalopathy- Resolved Plan: -Another long discussion held with patient regarding the risks and benefits of high-dose pulse glucocorticoids. Patient is fine with dexamethasone 4mg IV q6h while in-house. When she is ready for discharge, please decrease to 4mg po q8h and have her get in touch with her outpatient neurologist for further instructions prior to Ocrevus -Home neuro meds for RLS, occipital neuralgia and cognitive impairment restarted during inpatient -Await TTE. Apparently her clinical picture is not c/w ACS -d/w patient in detail. All questions answered. Thank you again for this consultation. Please call with ?. Time with Patient: Greater than 30 (Time spent in direct patient care, greater than 50% of which was spent in [id number] counseling and coordination of care: 35 minutes)
[2018-11-25] MEDS: DEXTROSE 5%-0.45% NACL 1,000 ML IV SCH (13:04)
[2018-11-25 16:59] LABS: Glucose,Whole Blood 137 mg/dL (75-99)
[2018-11-25 20:40] LABS: Glucose,Whole Blood 160 mg/dL (75-99)
[2018-11-25 22:31] LABS: Glucose,Whole Blood 151 mg/dL (75-99)
[2018-11-25] MEDS: MELATONIN 3 MG TABLET PO SCH (23:58)
[2018-11-26] MEDS: BUTALB/APAP/CAFF 50-325-40MG TAB PO PRN ×4 (00:01→22:36)
[2018-11-26] MEDS: oxyCODONE-APAP 10-325MG 1 EACH TAB PO PRN ×4 (00:01→22:40)
[2018-11-26] MEDS: DEXTROSE 5%-0.45% NACL 1,000 ML IV SCH ×3 (00:58→22:32)
[2018-11-26 07:02] LABS: Glucose,Whole Blood 115 mg/dL (75-99)
[2018-11-26] MEDS: GABAPENTIN 400 MG CAP PO SCH ×3 (07:31→22:29)
[2018-11-26] MEDS: PANTOPRAZOLE 40 MG TABLET PO SCH ×2 (07:34→15:46)
[2018-11-26] MEDS: VERAPAMIL SR 120 MG TABLET.ER PO SCH (07:34)
[2018-11-26] MEDS: NYSTATIN 100,000 UNIT/ML SUSP 500,000 UNIT/5 ML CUP PO SCH ×4 (07:34→22:34)
[2018-11-26] MEDS: ENOXAPARIN 40 MG/0.4 ML SYRINGE SQ SCH (07:34)
[2018-11-26] MEDS: MULTIVITAMINS, THERA 1 EACH TAB PO SCH (07:35)
[2018-11-26] MEDS: MEMANTINE 10 MG TAB PO SCH ×2 (07:35→22:36)
[2018-11-26] MEDS: LORazepam 0.5 MG TAB PO PRN ×4 (07:35→22:40)
[2018-11-26] MEDS: HYDROCHLOROTHIAZIDE 25 MG TAB PO SCH (07:36)
[2018-11-26] MEDS: BACLOFEN 10 MG TAB PO SCH ×4 (07:36→22:36)
[2018-11-26] MEDS: MONTELUKAST 10 MG TAB PO SCH (07:36)
[2018-11-26] MEDS: CHOLECALCIFEROL 1,000 UNIT TAB PO SCH (07:36)
[2018-11-26] MEDS: DEXAMETHASONE SOD PHOSPHATE 4 MG/ML 1 ML VIAL IV SCH ×5 (07:36→22:46)
[2018-11-26] MEDS: ASPIRIN 81 MG PO SCH (07:36)
[2018-11-26] MEDS: PARoxetine 20 MG TAB PO SCH (07:36)
[2018-11-26] MEDS: INSULIN ASPART (NovoLOG) 100 UNIT/ML VIAL SQ SCH ×4 (07:37→22:33)
[2018-11-26] MEDS: FLUTICASONE 50MCG/SPRAY NASAL 16GM EA NOSTRIL SCH (07:42)
[2018-11-26] MEDS: NICOTINE 21MG/24HR PATCH TRANSDERM SCH (07:45)
[2018-11-26] MEDS: SYMBICORT 160-4.5 MCG INHALER INHALATION SCH ×2 (08:08→19:15)
[2018-11-26] MEDS: IPRATROPIUM-ALBUTEROL 3 ML NEB INHALATION SCH ×5 (08:08→19:15)
--- NOTE | 2018-11-26 08:11 | P.PN ---
Subjective Progress Note Date: 11/25/18 This is a 53-year-old female one of Dr. Tabares and Dr. Ramirez with a previous medical history significant for relapsing remitting multiple sclerosis, hypertension and hypertensive cardio vascular disease with left ventricular hypertrophy, history of GERD, multiple sclerosis, COPD, asthma, history of osteoporosis, uterine cancer status post surgery, patient was recently hospitalized at [facility] in 11/01/2018 for acute exacerbation of MS she was placed on IV Solu-Medrol at that time followed by taper dose of steroid she stated that she was down to 1 tablet of prednisone a day that just started yesterday, he shouldn't stated that she developed to have a significant flareup of her MS on the weaned down off her prednisone with electrical shocks throughout her body including upper and lower extremities she could not use her walker she tried to move herself with a walker however she felt extremely weak and ended up landing on the floor her friend came and called EMS and brought her to the emergency department at [facility] initially the patient was extremely have tended in the blood gases were done in the emergency department and she was not intubated as the patient become more and more alert and urine drug screen did not show any evidence of any street drugs, was positive for oxycodone barbiturates and benzodiazepine as well, patient was admitted to intensive care unit she was seen in consultation by cardiology as well as by pulmonary and critical medicine she was also seen in consultation by neurology. The patient will be admitted to the hospital for evaluation of acute toxic metabolic encephalopathy likely related to her medications and the patient stated that she did take 2 Benadryl at was along with Ativan and the rest of her medication that could be what triggered her mental status changes. 11/24: Patient has been seen by Dr. Kumari, unclear she is having another exacerbation, may be pseudo-exacerbation and has ordered MRI of the brain. MRI of the brain reveals some progression in white matter demyelination. Patient will be started on Solu-Medrol 1 g daily for [address] Kumari's recommendations. Patient has been seen by psychiatry suspecting that Benadryl contributed to her less response. Nose and confusion. No plan for inpatient psychiatric treatment and patient has declined outpatient treatment. She mentions tapering Ativan very slowly and Dr. Smith has signed off the case. Dr. Loja has evaluated for mild troponin elevation no clear acute coronary syndrome and no further workup other than echocardiogram. Patient is also been seen and followed by Dr. Rushing for intensive care management and patient is waiting for [facility]. 11/25: Patient is now seen on the surgical unit. She has been afebrile, heart rate 72, blood pressure 145/88, pulse ox 96% on 2 L nasal cannula. Patient is complaining of a lot of pain all over when she woke up this morning. She is a Kwan catheter in place which will have removed. Patient is noted to continue to be stuttering. PT and OT added. Objective - Vital Signs Vital signs: Vital Signs Temp 97.7 F 11/25/18 07:33 Pulse 78 11/25/18 08:11 Resp 15 11/25/18 07:33 BP 145/88 11/25/18 07:33 Pulse Ox 96 11/25/18 07:33 Intake & Output 11/24/18 11/25/18 11/25/18 18:59 06:59 18:59 Intake Total 1760 Output Total 1000 Balance 760 Weight 108.5 kg Intake: IV 960 Dextrose 5%-0.45% NaCl 1, 960 000 ml @ 80 mls/hr IV . [id number] [facility] Rx#:[id number] Oral 800 Output: Urine 1000 Other: Voiding Method Indwelling Catheter Indwelling Catheter # Voids 1,900 - Exam Review of Systems Constitutional: Reports chronic headaches, Reports chronic pain, Reports fatigue, Reports malaise, Reports weakness, Denies anorexia, reports generalized pain Eyes: denies blurred vision, denies bulging eye, denies decreased vision Ears, nose, mouth and throat: Denies dysphagia, Denies neck lump, Denies swelling in throat, Denies sore throat Cardiovascular: Denies chest pain, Denies decreased exercise tolerance, Denies dyspnea on exertion, Denies leg edema, Denies lightheadedness, Denies palpitations, Denies rapid heart beat, Denies shortness of breath, Denies syncope Respiratory: Denies congestion, Denies cough, Denies home oxygen, Denies sleep apnea, Denies snoring, Denies wheezing Gastrointestinal: Denies abdominal pain, Denies belching, Denies BRBPR, Denies change in bowel habits, Denies heartburn, Denies melena, Denies nausea, Denies vomiting Genitourinary: Denies dysuria, Denies nocturia Menstruation: Reports post hysterectomy, Reports postmenopausal Musculoskeletal: Reports gait dysfunction, Reports muscle weakness, Reports shooting arm pain, Reports shooting leg pain Musculoskeletal: absent: ankle pain, ankle stiffness, ankle swelling, elbow pain, elbow stiffness, elbow swelling, foot pain, foot stiffness, foot swelling, hand pain, hand stiffness, hand swelling, hip pain, hip stiffness, hip swelling, knee pain, knee stiffness, knee swelling, shoulder pain, shoulder stiffness, shoulder swelling, wrist pain, wrist stiffness, wrist swelling Integumentary: Denies pruritus, Denies rash Neurological: Reports ataxia, Reports balance difficulties, Reports gait dy sfunction, Reports headaches, Reports numbness, Reports paresthesias, Reports sensory deficit, Reports tingling, Reports weakness, Reports visual changes, Denies tremors Psychiatric: Denies anxiety, Denies depression Endocrine: Denies fatigue, Denies weight change General appearance: cooperative, no acute distress, morbidly obese, patient stuttering - EENT Eyes: anicteric sclerae, EOMI, PERRLA, dentition normal, normal appearance ENT: hearing grossly normal, NA/AT, normal oropharynx - Neck occipital nerualgia , left, psotive tenderness, neg brudzinski, neg kernig Neck: normal ROM Thyroid: bilateral: normal size, negative: enlarged, firm, nodule - Respiratory Respiratory: bilateral: CTA, negative: diminished, dullness, rales, rhonchi - Cardiovascular Rhythm: regular Heart sounds: normal: S1, S2 Abnormal Heart Sounds: no systolic murmur, no diastolic murmur, no rub, no S3 Gallop, no S4 Gallop, no click, no other - Gastrointestinal General gastrointestinal: no absent bowel sounds, no decreased bowel sounds, no distended, no hepatomegaly, no hyperactive bowel sounds, normal bowel sounds, no organomegaly, no rigid, no scaphoid, soft, no splenomegaly, no tenderness, no umbilical hernia, no ventral hernia Kwan catheter draining clear vlad urine. - Integumentary Integumentary: no calor, no cellulitis, no cyanotic, decreased turgor, no flushed, no jaundiced, normal, no normal turgor, no pale, no rash, no ulcer - Neurologic Patient is awake alert and oriented 3. Stuttering noted. Neurologic: CNII-XII intact - Musculoskeletal Musculoskeletal: generalized weakness, strength equal bilaterally - Psychiatric Psychiatric: A&O x's 3, appropriate affect, intact judgment & insight - Labs CBC & Chem 7: 11/24/18 05:04 11/24/18 05:04 Labs: Abnormal Lab Results - Last 24 Hours (Table) 11/24/18 11/24/18 11/24/18 Range/Units 17:09 20:38 22:34 POC Glucose (mg/dL) 144 H 160 H 171 H (75-99) mg/dL 11/25/18 Range/Units 07:27 POC Glucose (mg/dL) 166 H (75-99) mg/dL Microbiology - Last 24 Hours (Table) 11/22/18 16:42 Blood Culture - Preliminary Blood No Growth after 48 hours Assessment and Plan Plan: 1. Metabolic encephalopathy likely related to medication use without any signs of overdose. Patient has recovered completely we'll continue the patient on her medication and monitor the patient very closely for the next 24 hours. Patient was seen in consultation by neurology who was thought that this is all related to multiple sclerosis without evidence of any acute injury. The patient has been continued on Decadron as she needs to have a quick taper in order to receive Ocrevus in December. 2. Acute on chronic hypoxic respiratory failure due to atelectasis and possible aspiration pneumonia. Continue patient on oxygen at 2 nasal cannula, continue DuoNeb 3 mg nebulization twice every day, monitor the patient very closely. Consult with Dr. Rushing appreciated. 3. Relapsing remitting multiple sclerosis with acute exacerbation. Decadron C ontinue baclofen, monitor the patient very closely. Consult with neurology appreciated. 4. Chronic pain and occipital neuralgia under the care of Dr. Ramirez. Continue gabapentin 1200 mg 3 times daily, Percocet one 3 times daily as needed, Fioricet as needed. 5. Hypertension and hypertensive cardiovascular disease. Continue verapamil 120 mg orally once every day. 6. Obesity with possible obstructive sleep apnea and obesity hypoventilation syndrome. Recommend outpatient sleep study 7. Mild intermittent asthma and COPD. Continue nebulized treatment 4 times every day. Support with oxygen as needed. 8. Fibromyalgia. Continue gabapentin 1200 mg orally 3 times every day. 8. ALLERGIC rhinitis, stable. 9. Recurrent depression. Continue Paxil 40 mg daily. 10. Chronic tobacco use and dependence. Smoking cessation and counseling an increased risk of CAD, CVA, and malignancy. Continue nicotine patch 21 mg once every day. 11. Mild cognitive impairment. Continue patient on Namenda 10 mg orally twice every day. 13. Restless leg syndrome. Continue Requip 0.25 mg 2 times daily 14. DVT prophylaxis. Lovenox 40 mg subcutaneously every 24 hours , bilateral knee-high MAYUR hose. 15. GI prophylaxis. Continue with Protonix 40 mg orally twice every day. 16. Thrush. Continue nystatin swish and swallow 5 mL orally 4 times every day. Patient is full code. Return home Impression and plan of care have been directed as dictated by the signing physician. Elaine Nguyen nurse practitioner acting as scribe for signing physician.
--- NOTE | 2018-11-26 11:00 | P.PN ---
Subjective Progress Note Date: 11/26/18 Principal diagnosis: RRMS ATE No acute events O/N. Walked with PT today. Ready to go home in am. No new neuro c/o. Objective - Vital Signs Vital signs: Vital Signs Temp 97.6 F 11/26/18 07:38 Pulse 80 11/26/18 08:20 Resp 16 11/26/18 07:38 BP 154/97 11/26/18 07:38 Pulse Ox 96 11/26/18 07:38 Intake & Output 11/25/18 11/26/18 11/26/18 18:59 06:59 18:59 Intake Total 180 Output Total 1775 Balance -1595 Intake: Oral 180 Output: Urine 1775 Uretheral (Kwan) 125 Other: Voiding Method Indwelling Catheter Toilet # Voids 1 2 # Bowel Movements 1 - Exam Gen NAD Pleasant and cooperative MS A+Ox4 Some stuttering Able to articulate detailed medical history Able to follow all commands CN Stuttering but not dysarthric speech remainder of II-XII grossly intact no nystagmus Motor Normal bulk/tone Bilateral pronator drift No tremors Strength 4+/5 sym throughout Sens Intact to LT x4 No neglect or extinction Coord No dysmetria on FTN bilaterally DTRs 2+/4 sym throughout Toes downgoing bilaterally No clonus at achilles Gait Deferred - Labs CBC & Chem 7: 11/24/18 05:04 11/24/18 05:04 Labs: Abnormal Lab Results - Last 24 Hours (Table) 11/25/18 11/25/18 11/25/18 Range/Units 11:46 16:57 20:38 POC Glucose (mg/dL) 113 H 137 H 160 H (75-99) mg/dL 11/25/18 11/26/18 Range/Units 22:28 07:00 POC Glucose (mg/dL) 151 H 115 H (75-99) mg/dL Microbiology - Last 24 Hours (Table) 11/22/18 16:42 Blood Culture - Preliminary Blood No Growth after 72 hours Assessment and Plan Assessment: RRMS- unclear if she has another exacerbation; maybe pseudo-exacerbation. No true abnormal enhancement to suggest active disease. Acute toxic encephalopathy- Resolved Plan: -Dexamethasone 4mg IV q6h while in-house. On discharge, please do 4mg po q8h. I'd like her to get in touch with her primary neurologist Dr. Bates early next week on further instructions of her steroid taper specifically in the context of her Ocrevus infusion in early 12/2018 -Home neuro meds for RLS, occipital neuralgia and cognitive impairment restarted during inpatient -PT evaluation -d/w patient in detail. All questions answered. -Neurology will be available again on 11/29/18. Thank you again for this consultation. Please call with ?. Time with Patient: Less than 30 (Time spent in direct patient care, greater than 50% of which was spent in [id number] counseling and coordination of care: 25 m inutes)
[2018-11-26 12:11] LABS: Glucose,Whole Blood 113 mg/dL (75-99)
--- NOTE | 2018-11-26 14:01 | P.PN ---
Subjective Progress Note Date: 11/26/18 This is a 53-year-old female one of Dr. Tabares and Dr. Ramirez with a previous medical history significant for relapsing remitting multiple sclerosis, hypertension and hypertensive cardio vascular disease with left ventricular hypertrophy, history of GERD, multiple sclerosis, COPD, asthma, history of osteoporosis, uterine cancer status post surgery, patient was recently hospitalized at [facility] in 11/01/2018 for acute exacerbation of MS she was placed on IV Solu-Medrol at that time followed by taper dose of steroid she stated that she was down to 1 tablet of prednisone a day that just started yesterday, he shouldn't stated that she developed to have a significant flareup of her MS on the weaned down off her prednisone with electrical shocks throughout her body including upper and lower extremities she could not use her walker she tried to move herself with a walker however she felt extremely weak and ended up landing on the floor her friend came and called EMS and brought her to the emergency department at [facility] initially the patient was extremely have tended in the blood gases were done in the emergency department and she was not intubated as the patient become more and more alert and urine drug screen did not show any evidence of any street drugs, was positive for oxycodone barbiturates and benzodiazepine as well, patient was admitted to intensive care unit she was seen in consultation by cardiology as well as by pulmonary and critical medicine she was also seen in consultation by neurology. The patient will be admitted to the hospital for evaluation of acute toxic metabolic encephalopathy likely related to her medications and the patient stated that she did take 2 Benadryl at was along with Ativan and the rest of her medication that could be what triggered her mental status changes. 11/24: Patient has been seen by Dr. Kumari, unclear she is having another exacerbation, may be pseudo-exacerbation and has ordered MRI of the brain. MRI of the brain reveals some progression in white matter demyelination. Patient will be started on Solu-Medrol 1 g daily for [address] Kumari's recommendations. Patient has been seen by psychiatry suspecting that Benadryl contributed to her less response. Nose and confusion. No plan for inpatient psychiatric treatment and patient has declined outpatient treatment. She mentions tapering Ativan very slowly and Dr. Smith has signed off the case. Dr. Loja has evaluated for mild troponin elevation no clear acute coronary syndrome and no further workup other than echocardiogram. Patient is also been seen and followed by Dr. Rushing for intensive care management and patient is waiting for [facility]. 11/25: Patient is now seen on the surgical unit. She has been afebrile, heart rate 72, blood pressure 145/88, pulse ox 96% on 2 L nasal cannula. Patient is complaining of a lot of pain all over when she woke up this morning. She is a Kwan catheter in place which will have removed. Patient is noted to continue to be stuttering. PT and OT added. 11/26: Patient has been afebrile, heart rate 64, blood pressure 154/97, pulse ox 96% on 2 L. Blood cultures no growth at 72 hours. Patient is currently receiving IV Decadron 4 mg every 6 hours and managed by Dr. Kumari. Anticipate discharge home by tomorrow. He has recommended Decadron 4 mg every 8 hours at discharge. Patient is agreeable to be discharged in the morning. She states she is feeling much improved with less pain today. She is still stuttering. Blood pressure is improved. We will send prescription through for Decadron and patient has been encouraged to contact Dr. Ramirez today for recommendations for tapering Decadron in order to get ready for Ocrevus in early December. Objective - Vital Signs Vital signs: Vital Signs Temp 97.6 F 11/26/18 07:38 Pulse 80 11/26/18 08:08 Resp 16 11/26/18 07:38 BP 154/97 11/26/18 07:38 Pulse Ox 96 11/26/18 07:38 Intake & Output 11/25/18 11/26/18 11/26/18 18:59 06:59 18:59 Intake Total 180 Output Total 1775 Balance -1595 Intake: Oral 180 Output: Urine 1775 Uretheral (Kwan) 125 Other: Voiding Method Indwelling Catheter Toilet # Voids 1 2 # Bowel Movements 1 - Exam Review of Systems Constitutional: Reports chronic headaches, Reports chronic pain, Reports fatigue, Reports malaise, Reports weakness, Denies anorexia, reports generalized pain-improved. Eyes: denies blurred vision, denies bulging eye, denies decreased vision Ears, nose, mouth and throat: Denies dysphagia, Denies neck lump, Denies swelling in throat, Denies sore throat Cardiovascular: Denies chest pain, Denies decreased exercise tolerance, Denies dyspnea on exertion, Denies leg edema, Denies lightheadedness, Denies palpitations, Denies rapid heart beat, Denies shortness of breath, Denies syncope Respiratory: Denies congestion, Denies cough, Denies home oxygen, Denies sleep apnea, Denies snoring, Denies wheezing Gastrointestinal: Denies abdominal pain, Denies belching, Denies BRBPR, Denies change in bowel habits, Denies heartburn, Denies melena, Denies nausea, Denies vomiting Genitourinary: Denies dysuria, Denies nocturia Menstruation: Reports post hysterectomy, Reports postmenopausal Musculoskeletal: Reports gait dysfunction, Reports muscle weakness, Reports shooting arm pain, Reports shooting leg pain Musculoskeletal: absent: ankle pain, ankle stiffness, ankle swelling, elbow pain, elbow stiffness, elbow swelling, foot pain, foot stiffness, foot swelling, hand pain, hand stiffness, hand swelling, hip pain, hip stiffness, hip swelling, knee pain, knee stiffness, knee swelling, shoulder pain, shoulder stiffness, shoulder swelling, wrist pain, wrist stiffness, wrist swelling Integumentary: Denies pruritus, Denies rash Neurological: Reports ataxia, Reports balance difficulties, Reports gait dysfunction, Reports headaches, Reports numbness, Reports paresthesias, Reports sensory deficit, Reports tingling, Reports weakness, Reports visual changes, Denies tremors Psychiatric: Denies anxiety, Denies depression Endocrine: Denies fatigue, Denies weight change Physical exam: General appearance: cooperative, no acute distress, morbidly obese, patient stuttering - EENT Eyes: anicteric sclerae, EOMI, PERRLA, dentition normal, normal appearance ENT: hearing grossly normal, NA/AT, normal oropharynx - Neck occipital nerualgia , left, psotive tenderness, neg brudzinski, neg kernig Neck: normal ROM Thyroid: bilateral: normal size, negative: enlarged, firm, nodule - Respiratory Respiratory: bilateral: CTA, negative: diminished, dullness, rales, rhonchi - Cardiovascular Rhythm: regular Heart sounds: normal: S1, S2 Abnormal Heart Sounds: no systolic murmur, no diastolic murmur, no rub, no S3 Gallop, no S4 Gallop, no click, no other - Gastrointestinal General gastrointestinal: No dental tenderness, normal bowel sounds - Integumentary Integumentary: no calor, no cellulitis, no cyanotic, decreased turgor, no flushed, no jaundiced, normal, no normal turgor, no pale, no rash, no ulcer - Neurologic Patient is awake alert and oriented 3. Stuttering noted. Neurologic: CNII-XII intact - Musculoskeletal Musculoskeletal: generalized weakness, strength equal bilaterally - Psychiatric Psychiatric: A&O x's 3, appropriate affect, intact judgment & insight - Labs CBC & Chem 7: 11/24/18 05:04 11/24/18 05:04 Labs: Abnormal Lab Results - Last 24 Hours (Table) 11/25/18 11/25/18 11/25/18 Range/Units 11:46 16:57 20:38 POC Glucose (mg/dL) 113 H 137 H 160 H (75-99) mg/dL 11/25/18 11/26/18 Range/Units 22:28 07:00 POC Glucose (mg/dL) 151 H 115 H (75-99) mg/dL Microbiology - Last 24 Hours (Table) 11/22/18 16:42 Blood Culture - Preliminary Blood No Growth after 72 hours Assessment and Plan Plan: 1. Metabolic encephalopathy likely related to medication use without any signs of overdose. Patient has recovered completely. Patient was seen in [facility] emergency department by neurology who was thought that this is all related to multiple sclerosis without evidence of any acute injury. The patient has been continued on Decadron as she needs to have a quick taper in order to receive Ocrevus in December. 2. Acute on chronic hypoxic respiratory failure due to atelectasis. Aspiration pneumonia ruled out. Continue patient on oxygen at 2 nasal cannula, continue Du oNeb 3 mg nebulization twice every day, monitor the patient very closely. Consult with Dr. Rushing appreciated. 3. Relapsing remitting multiple sclerosis with acute exacerbation. Decadron Continue baclofen, monitor the patient very closely. Consult with neurology appreciated. 4. Chronic pain and occipital neuralgia under the care of Dr. Ramirez. Continue gabapentin 1200 mg 3 times daily, Percocet one 3 times daily as needed, Fioricet as needed. 5. Hypertension and hypertensive cardiovascular disease. Continue verapamil 120 mg orally once every day. 6. Obesity with possible obstructive sleep apnea and obesity hypoventilation syndrome. Recommend outpatient sleep study 7. Mild intermittent asthma and COPD. Continue nebulized treatment 4 times every day. Support with oxygen as needed. 8. Fibromyalgia. Continue gabapentin 1200 mg orally 3 times every day. 8. ALLERGIC rhinitis, stable. 9. Recurrent depression. Continue Paxil 40 mg daily. 10. Chronic tobacco use and dependence. Smoking cessation and counseling an increased risk of CAD, CVA, and malignancy. Continue nicotine patch 21 mg once every day. 11. Mild cognitive impairment. Continue patient on Namenda 10 mg orally twice every day. 13. Restless leg syndrome. Continue Requip 0.25 mg 2 times daily 14. DVT prophylaxis. Lovenox 40 mg subcutaneously every 24 hours , bilateral knee-high MAYUR hose. 15. GI prophylaxis. Continue with Protonix 40 mg orally twice every day. 16. Thrush. Continue nystatin swish and swallow 5 mL orally 4 times every day. Patient is full code. Home on Thursday morning. Prescriptions have been sent to [facility] today per patient request. Impression and plan of care have been directed as dictated by the signing physician. Elaine Nguyen nurse practitioner acting as scribe for signing physician.
[2018-11-26 16:49] LABS: Glucose,Whole Blood 128 mg/dL (75-99)
[2018-11-26 22:34] LABS: Glucose,Whole Blood 125 mg/dL (75-99)
[2018-11-26] MEDS: MELATONIN 3 MG TABLET PO SCH (22:35)
[2018-11-27] MEDS: DEXAMETHASONE SOD PHOSPHATE 4 MG/ML 1 ML VIAL IV SCH ×3 (05:53→18:14)
[2018-11-27] MEDS: SYMBICORT 160-4.5 MCG INHALER INHALATION SCH ×2 (07:10→20:30)
[2018-11-27] MEDS: IPRATROPIUM-ALBUTEROL 3 ML NEB INHALATION SCH ×4 (07:10→20:29)
[2018-11-27 07:18] LABS: Glucose,Whole Blood 105 mg/dL (75-99)
[2018-11-27] MEDS: INSULIN ASPART (NovoLOG) 100 UNIT/ML VIAL SQ SCH ×4 (07:30→22:33)
[2018-11-27] MEDS: NICOTINE 21MG/24HR PATCH TRANSDERM SCH (08:26)
[2018-11-27] MEDS: BACLOFEN 10 MG TAB PO SCH ×4 (08:26→22:25)
[2018-11-27] MEDS: BUTALB/APAP/CAFF 50-325-40MG TAB PO PRN ×2 (08:26→16:32)
[2018-11-27] MEDS: ENOXAPARIN 40 MG/0.4 ML SYRINGE SQ SCH (08:26)
[2018-11-27] MEDS: GABAPENTIN 400 MG CAP PO SCH ×3 (08:27→22:24)
[2018-11-27] MEDS: VERAPAMIL SR 120 MG TABLET.ER PO SCH (08:28)
[2018-11-27] MEDS: PANTOPRAZOLE 40 MG TABLET PO SCH ×2 (08:28→16:33)
[2018-11-27] MEDS: LORazepam 0.5 MG TAB PO PRN ×2 (08:28→16:31)
[2018-11-27] MEDS: oxyCODONE-APAP 10-325MG 1 EACH TAB PO PRN ×2 (08:28→16:33)
[2018-11-27] MEDS: MEMANTINE 10 MG TAB PO SCH ×2 (08:28→22:25)
[2018-11-27] MEDS: PARoxetine 20 MG TAB PO SCH (08:28)
[2018-11-27] MEDS: ASPIRIN 81 MG PO SCH (08:28)
[2018-11-27] MEDS: MULTIVITAMINS, THERA 1 EACH TAB PO SCH (08:28)
[2018-11-27] MEDS: HYDROCHLOROTHIAZIDE 25 MG TAB PO SCH (08:29)
[2018-11-27] MEDS: CHOLECALCIFEROL 1,000 UNIT TAB PO SCH (08:29)
[2018-11-27] MEDS: MONTELUKAST 10 MG TAB PO SCH (08:29)
[2018-11-27] MEDS: NYSTATIN 100,000 UNIT/ML SUSP 500,000 UNIT/5 ML CUP PO SCH ×3 (08:35→18:14)
[2018-11-27 12:13] LABS: Glucose,Whole Blood 108 mg/dL (75-99)
[2018-11-27] MEDS: FLUTICASONE 50MCG/SPRAY NASAL 16GM EA NOSTRIL SCH (14:08)
[2018-11-27] MEDS: DEXTROSE 5%-0.45% NACL 1,000 ML IV SCH (14:08)
[2018-11-27 16:43] LABS: Glucose,Whole Blood 114 mg/dL (75-99)
[2018-11-27 20:14] LABS: Glucose,Whole Blood 144 mg/dL (75-99)
--- NOTE | 2018-11-27 22:20 | P.PN ---
Subjective Progress Note Date: 11/27/18 This is a 53-year-old female one of Dr. Tabares and Dr. Ramirez with a previous medical history significant for relapsing remitting multiple sclerosis, hypertension and hypertensive cardio vascular disease with left ventricular hypertrophy, history of GERD, multiple sclerosis, COPD, asthma, history of osteoporosis, uterine cancer status post surgery, patient was recently hospitalized at [facility] in 11/01/2018 for acute exacerbation of MS she was placed on IV Solu-Medrol at that time followed by taper dose of steroid she stated that she was down to 1 tablet of prednisone a day that just started yesterday, he shouldn't stated that she developed to have a significant flareup of her MS on the weaned down off her prednisone with electrical shocks throughout her body including upper and lower extremities she could not use her walker she tried to move herself with a walker however she felt extremely weak and ended up landing on the floor her friend came and called EMS and brought her to the emergency department at [facility] initially the patient was extremely have tended in the blood gases were done in the emergency department and she was not intubated as the patient become more and more alert and urine drug screen did not show any evidence of any street drugs, was positive for oxycodone barbiturates and benzodiazepine as well, patient was admitted to intensive care unit she was seen in consultation by cardiology as well as by pulmonary and critical medicine she was also seen in consultation by neurology. The patient will be admitted to the hospital for evaluation of acute toxic metabolic encephalopathy likely related to her medications and the patient stated that she did take 2 Benadryl at was along with Ativan and the rest of her medication that could be what triggered her mental status changes. 11/24: Patient has been seen by Dr. Kumari, unclear she is having another exacerbation, may be pseudo-exacerbation and has ordered MRI of the brain. MRI of the brain reveals some progression in white matter demyelination. Patient will be started on Solu-Medrol 1 g daily for [address] Kumari's recommendations. Patient has been seen by psychiatry suspecting that Benadryl contributed to her less response. Nose and confusion. No plan for inpatient psychiatric treatment and patient has declined outpatient treatment. She mentions tapering Ativan very slowly and Dr. Smith has signed off the case. Dr. Loja has evaluated for mild troponin elevation no clear acute coronary syndrome and no further workup other than echocardiogram. Patient is also been seen and followed by Dr. Rushing for intensive care management and patient is waiting for [facility]. 11/25: Patient is now seen on the surgical unit. She has been afebrile, heart rate 72, blood pressure 145/88, pulse ox 96% on 2 L nasal cannula. Patient is complaining of a lot of pain all over when she woke up this morning. She is a Kwan catheter in place which will have removed. Patient is noted to continue to be stuttering. PT and OT added. 11/26: Patient has been afebrile, heart rate 64, blood pressure 154/97, pulse ox 96% on 2 L. Blood cultures no growth at 72 hours. Patient is currently receiving IV Decadron 4 mg every 6 hours and managed by Dr. Kumari. Anticipate discharge home by tomorrow. He has recommended Decadron 4 mg every 8 hours at discharge. Patient is agreeable to be discharged in the morning. She states she is feeling much improved with less pain today. She is still stuttering. Blood pressure is improved. We will send prescription through for Decadron and patient has been encouraged to contact Dr. Ramirez today for recommendations for tapering Decadron in order to get ready for Ocrevus in early December. 11/27: Patient is doing okay, she is feeling much improved with less pain except for the headache, she still has her usual stuttering, no shortness of breath, no cough prescriptions were unchanged today, outpatient dexamethasone with Dr. Ramirez with anticipation off of previous in early December, we will discharge patient first thing in the morning, pending transportation from family members Objective - Vital Signs Vital signs: Vital Signs Temp 98.2 F 11/27/18 14:53 Pulse 68 11/27/18 20:46 Resp 16 11/27/18 14:53 BP 132/83 11/27/18 14:53 Pulse Ox 96 11/27/18 14:53 Intake & Output 11/27/18 11/27/18 11/28/18 06:59 18:59 06:59 Intake Total 1060 180 Output Total 750 Balance 310 180 Intake: IV 960 Dextrose 5%-0.45% NaCl 1, 960 000 ml @ 80 mls/hr IV . [id number] ANDREAS Rx#:[id number] Oral 100 180 Output: Urine 750 Other: Voiding Method Bedside Commode # Voids 2 2 # Bowel Movements 1 - Constitutional General appearance: Present: cooperative, no acute distress, obese - EENT Eyes: Present: anicteric sclerae, EOMI, PERRLA, dentition normal - Respiratory Respiratory: bilateral: CTA, negative: diminished, dullness - Cardiovascular Rhythm: regular Heart sounds: normal: S1, S2 Abnormal Heart Sounds: Absent: systolic murmur, diastolic murmur, rub, S3 Gallop , S4 Gallop, click, other - Gastrointestinal General gastrointestinal: Present: normal bowel sounds, soft, tenderness (None) - Integumentary Integumentary: Present: normal, normal turgor - Neurologic Neurologic: Present: CNII-XII intact - Musculoskeletal Musculoskeletal: Present: gait normal, strength equal bilaterally - Psychiatric Psychiatric: Present: A&O x's 3, appropriate affect, intact judgment & insight - Labs CBC & Chem 7: 11/24/18 05:04 11/24/18 05:04 Labs: Abnormal Lab Results - Last 24 Hours (Table) 11/26/18 11/27/18 11/27/18 Range/Units 22:32 07:16 12:01 POC Glucose (mg/dL) 125 H 105 H 108 H (75-99) mg/dL 11/27/18 11/27/18 Range/Units 16:40 20:08 POC Glucose (mg/dL) 114 H 144 H (75-99) mg/dL Microbiology - Last 24 Hours (Table) 11/22/18 16:42 Blood Culture - Preliminary Blood No Growth after 120 hours Assessment and Plan Plan: 1. Metabolic encephalopathy likely related to medication use without any signs of overdose. Patient has recovered completely. Patient was seen in consultation by neurology who was thought that this is all related to multiple sclerosis without evidence of any acute injury. The patient has been continued on Decadron as she needs to have a quick taper in order to receive Ocrevus in December. 2. Acute on chronic hypoxic respiratory failure due to atelectasis. Aspiration pneumonia ruled out. Continue patient on oxygen at 2 nasal cannula, continue DuoNeb 3 mg nebulization twice every day, monitor the patient very closely. Consult with Dr. Сергей infante. 3. Relapsing remitting multiple sclerosis with acute exacerbation. Decadron Continue baclofen, monitor the patient very closely. Consult with neurology appreciated. 4. Chronic pain and occipital neuralgia under the care of Dr. Ramirez. Continue gabapentin 1200 mg 3 times daily, Percocet one 3 times daily as needed, Fioricet as needed. 5. Hypertension and hypertensive cardiovascular disease. Continue verapamil 120 mg orally once every day. 6. Obesity with possible obstructive sleep apnea and obesity hypoventilation syndrome. Recommend outpatient sleep study 7. Mild intermittent asthma and COPD. Continue nebulized treatment 4 times every day. Support with oxygen as needed. 8. Fibromyalgia. Continue gabapentin 1200 mg orally 3 times every day. 8. ALLERGIC rhinitis, stable. 9. Recurrent depression. Continue Paxil 40 mg daily. 10. Chronic tobacco use and dependence. Smoking cessation and counseling an increased risk of CAD, CVA, and malignancy. Continue nicotine patch 21 mg once every day. 11. Mild cognitive impairment. Continue patient on Namenda 10 mg orally twice every day. 13. Restless leg syndrome. Continue Requip 0.25 mg 2 times daily 14. DVT prophylaxis. Lovenox 40 mg subcutaneously every 24 hours , bilateral knee-high MAYUR hose. 15. GI prophylaxis. Continue with Protonix 40 mg orally twice every day. 16. Thrush. Continue nystatin swish and swallow 5 mL orally 4 times every day. Patient is full code. Home on in a.m. Prescriptions have been sent to [facility] today per patient request.
[2018-11-27] MEDS: MELATONIN 3 MG TABLET PO SCH (22:25)
[2018-11-27 22:41] LABS: Glucose,Whole Blood 171 mg/dL (75-99)
[2018-11-28] MEDS: NYSTATIN 100,000 UNIT/ML SUSP 500,000 UNIT/5 ML CUP PO SCH ×2 (00:03→09:15)
[2018-11-28] MEDS: BUTALB/APAP/CAFF 50-325-40MG TAB PO PRN ×2 (00:04→09:17)
[2018-11-28] MEDS: oxyCODONE-APAP 10-325MG 1 EACH TAB PO PRN ×2 (00:04→09:18)
[2018-11-28] MEDS: LORazepam 0.5 MG TAB PO PRN ×2 (00:04→09:17)
[2018-11-28] MEDS: DEXAMETHASONE SOD PHOSPHATE 4 MG/ML 1 ML VIAL IV SCH ×2 (00:06→05:50)
[2018-11-28] MEDS: DEXTROSE 5%-0.45% NACL 1,000 ML IV SCH (00:39)
[2018-11-28 07:24] LABS: Glucose,Whole Blood 115 mg/dL (75-99)
[2018-11-28] MEDS: INSULIN ASPART (NovoLOG) 100 UNIT/ML VIAL SQ SCH (07:30)
[2018-11-28] MEDS: CHOLECALCIFEROL 1,000 UNIT TAB PO SCH (09:15)
[2018-11-28] MEDS: MONTELUKAST 10 MG TAB PO SCH (09:15)
[2018-11-28] MEDS: GABAPENTIN 400 MG CAP PO SCH (09:15)
[2018-11-28] MEDS: PARoxetine 20 MG TAB PO SCH (09:15)
[2018-11-28] MEDS: BACLOFEN 10 MG TAB PO SCH (09:16)
[2018-11-28] MEDS: PANTOPRAZOLE 40 MG TABLET PO SCH (09:16)
[2018-11-28] MEDS: ASPIRIN 81 MG PO SCH (09:17)
[2018-11-28] MEDS: MEMANTINE 10 MG TAB PO SCH (09:17)
[2018-11-28] MEDS: MULTIVITAMINS, THERA 1 EACH TAB PO SCH (09:17)
[2018-11-28] MEDS: VERAPAMIL SR 120 MG TABLET.ER PO SCH (09:17)
[2018-11-28] MEDS: HYDROCHLOROTHIAZIDE 25 MG TAB PO SCH (09:17)
[2018-11-28] MEDS: NICOTINE 21MG/24HR PATCH TRANSDERM SCH (09:17)
[2018-11-28] MEDS: ENOXAPARIN 40 MG/0.4 ML SYRINGE SQ SCH (09:20)
[2018-11-28 09:25] VITALS: BP 134/86; RESP 14; TEMP 97.5
[2018-11-28] MEDS: SYMBICORT 160-4.5 MCG INHALER INHALATION SCH ×2 (09:28→09:40)
[2018-11-28] MEDS: IPRATROPIUM-ALBUTEROL 3 ML NEB INHALATION SCH (09:28)
[2018-11-28 09:34] VITALS: PULSE 70
[2018-11-28] MEDS: FLUTICASONE 50MCG/SPRAY NASAL 16GM EA NOSTRIL SCH (12:34)
== END 2018-11-28 13:10 | disposition home or self-care (01) | DRG 91 ==
LOC: EC 16:23 → 2SICU 19:34 → 4SSUR 11-24 18:47
PROVIDERS: ADMIT Internal Medicine; ATTEND Internal Medicine
DX: G92 Toxic encephalopathy (principal); J96.21 Acute and chronic respiratory failure with hypoxia; F33.9 Major depressive disorder, recurrent, unspecified; J98.11 Atelectasis; E66.2 Morbid (severe) obesity with alveolar hypoventilation; T40.2X5A Adverse effect of other opioids, initial encounter; B37.9 Candidiasis, unspecified; Z68.38 Body mass index [BMI] 38.0-38.9, adult; F17.200 Nicotine dependence, unspecified, uncomplicated; F41.9 Anxiety disorder, unspecified; G25.81 Restless legs syndrome; G31.84 Mild cognitive impairment of uncertain or unknown etiology; G35 Multiple sclerosis; G89.29 Other chronic pain; I11.0 Hypertensive heart disease with heart failure; I50.9 Heart failure, unspecified; J44.9 Chronic obstructive pulmonary disease, unspecified; J45.20 Mild intermittent asthma, uncomplicated; K21.9 Gastro-esophageal reflux disease without esophagitis; M19.90 Unspecified osteoarthritis, unspecified site; M54.81 Occipital neuralgia; M79.7 Fibromyalgia; M81.0 Age-related osteoporosis without current pathological fracture; R29.6 Repeated falls; Z79.51 Long term (current) use of inhaled steroids; Z79.82 Long term (current) use of aspirin; Z79.899 Other long term (current) drug therapy; Z82.3 Family history of stroke; Z82.41 Family history of sudden cardiac death; Z82.49 Family history of ischemic heart disease and other diseases of the circulatory system; Z85.42 Personal history of malignant neoplasm of other parts of uterus; Z90.710 Acquired absence of both cervix and uterus; Z71.6 Tobacco abuse counseling
CPT/HCPCS: 36415; 36600; 51702; 70450; 70553; 71045; 71275; 80048; 80053; 80306; 80320; 80329; 81003; 82550; 82553; 82805; 83520; 83735; 84484; 85025; 85610; 85730; 87040; 94640; 94760; 96361; 96374; 96375; 99291

== ENCOUNTER → 2018-12-16 | Outpatient (CLI) | payer MEDICARE, OTHER ==
--- NOTE | 2018-12-16 16:38 | US ---
EXAMINATION TYPE: US venous doppler duplex LE LT DATE OF EXAM: 12/16/2018 4:18 PM COMPARISON: NONE CLINICAL HISTORY: M79.89 swelling left lower extremity. Left leg pain and swelling SIDE PERFORMED: Left TECHNIQUE: The lower extremity deep venous system is examined utilizing real time linear array sonog beth with graded compression, doppler sonography and color-flow sonography. VESSELS IMAGED: External Iliac Vein (EIV) Common Femoral Vein Deep Femoral Vein Greater Saphenous Vein * Femoral Vein Popliteal Vein Small Saphenous Vein * Proximal Calf Veins (* superficial vessels) Left Leg: Appears negative for DVT IMPRESSION: No evidence of deep venous thrombosis in the left leg.
== END | disposition home or self-care (01) ==
LOC: RADUSWWP 15:46
PROVIDERS: ATTEND Family Medicine
DX: M79.89 Other specified soft tissue disorders (principal)

== ENCOUNTER → 2019-02-11 | Outpatient (CLI) | payer MEDICARE, OTHER ==
[2019-02-11 11:10] LABS: Basophils # (A) 0.1 k/uL (0-0.2); Basophils % (A) 1 %; Eosinophils % (A) 0 %; HCT 47.7 % (34.0-46.0); HGB 14.9 gm/dL (11.4-16.0); Hypochromasia Slight; Lymphocytes # (A) 3.3 k/uL (1.0-4.8); Lymphocytes % (A) 18 %; MCHC 31.1 g/dL (31.0-37.0); MCV 102.6 fL (80.0-100.0); Macrocytosis Slight; Mean Platelet Volume 7.1; Monocytes # (A) 1.1 k/uL (0-1.0); Monocytes % (A) 6 %; Neutrophils # (A) 13.2 k/uL (1.3-7.7); Neutrophils % (A) 74 %; Platelet Count 300 k/uL (150-450); RBC 4.65 m/uL (3.80-5.40); RDW 13.4 % (11.5-15.5); WBC 17.9 k/uL (3.8-10.6)
[2019-02-11 18:49] LABS: Folate, Serum 4.8 ng/mL; Vitamin D 25 Hydroxy 31.8 ng/mL (30.0-100.0)
[2019-02-11 18:56] LABS: African American GFR (CKD) 96.9 (60.0-200.0); Albumin 4.5 g/dL (3.80-4.90); Albumin/Globulin Ratio 3.75 (1.60-3.17); Anion Gap 13.2 mmol/L (4.00-12.00); BUN/Creat Ratio 17.5 Ratio (12.00-20.00); Calcium 9.9 mg/dL (8.7-10.3); Carbon Dioxide 34.8 mmol/L (21.6-31.8); Globulin 1.2 g/dL (1.6-3.3); Non-African American GFR(CKD) 83.6 (60.0-200.0); Potassium 3.7 mmol/L (3.5-5.5); Total Bilirubin 0.4 mg/dL (0.2-1.2); Total Protein 5.7 g/dL (6.2-8.2)
[2019-02-11 19:04] LABS: HIV 1 AB Non-Reactive (Non-Reactive); HIV 2 AB Non-Reactive (Non-Reactive); HIV AB P24 Non-Reactive (Non-Reactive); HIV P24 AG Non-Reactive (Non-Reactive)
[2019-02-11 19:31] LABS: Hepatitis B Core IgM Non-Reactive (Non-Reactive); Hepatitis B Surface AB- Quant 3.5 mIU/mL; Hepatitis B Surface Antibody Non-Reactive (Non-Reactive); Hepatitis B Surface Antigen Non-Reactive (Non-Reactive)
[2019-02-11 20:22] LABS: Hemoglobin A1C 6.1 % (4.0-6.0)
[2019-02-14 03:48] LABS: Varicella IgM Antibody 0.33 INDEX (<=0.90)
[2019-02-15 14:44] LABS: Vit B1(Thiamine) 91 ug/L (38-122)
[2019-02-17 10:16] LABS: Nicotinamide 17 ng/mL; Nicotinic Acid None Detected; Nicotinuric Acid None Detected
== END | disposition home or self-care (01) ==
LOC: LABWHC1 09:54
PROVIDERS: ATTEND Psychiatry & Neurology Neurology
DX: G35 Multiple sclerosis (principal); E55.9 Vitamin D deficiency, unspecified; R53.82 Chronic fatigue, unspecified
CPT/HCPCS: 36415; 80053; 82306; 82607; 82746; 83036; 84207; 84425; 84439; 84443; 84481; 84591; 85025; 86704; 86705; 86706; 86787; 87340; 87390

== ENCOUNTER → 2019-02-28 | Outpatient (CLI) | payer MEDICARE, OTHER ==
--- NOTE | 2019-02-28 12:28 | FL ---
EXAMINATION TYPE: FL barium swallow w video DATE OF EXAM: 02/28/2019 COMPARISON: NONE HISTORY: Food gets stuck at the level of the throat. TECHNIQUE: Fluoroscopy. FINDINGS: Fluoroscopic guidance was provided for the procedure performed in conjunction with the [facility] pathology department. Please see complete report forthcoming from the Speech Pathology departmen t. Various consistencies from thin liquid to solids were administered. Fluoroscopy time 1 minute 16 seconds. Number of images: 0. No aspiration or penetration was evident. No significant pooling was observed in the vallecula. There was normal propulsion of the bolus. IMPRESSION: 1. Normal modified barium swallow.
--- NOTE | 2019-02-28 12:28 | CT ---
EXAMINATION TYPE: CT sinus wo con DATE OF EXAM: 02/28/2019 COMPARISON: None HISTORY: Chronic sinusitis CT DLP: 572 mGycm CONTRAST: None The paranasal sinuses are examined in the axial plane at 2 mm thick sections. Reconstructed images i n the coronal plane were obtained. The maxillary sinuses are clear. The ethmoid air cells are clear. The sphenoid sinuses are clear. The frontal sinuses are clear. Right Tamanna air cells are present. The septum is evaluated. There is septal deviation. The ostiomeatal units are patent. IMPRESSIONS: 1. Normal paranasal sinus study.
== END | disposition home or self-care (01) ==
LOC: RADFLMAIN 10:50
PROVIDERS: ATTEND Otolaryngology
DX: J32.9 Chronic sinusitis, unspecified (principal); R13.10 Dysphagia, unspecified
CPT/HCPCS: 70486; 74230

== ENCOUNTER 2019-04-28 06:46 | Inpatient (IN) | payer MEDICARE, OTHER ==
[2019-04-28] MEDS ORDERED: methylPREDNISolone SOD SUCCI 125 MG/2 ML VIAL IV STA (06:51)
[2019-04-28] MEDS ORDERED: MORPHINE SULFATE 4 MG/ML SYRINGE IVP STA (06:51)
--- NOTE | 2019-04-28 06:54 | ED ---
Fall HPI <Jaron Schmitt - Last Filed: 04/28/19 09:46> - General Source: patient, EMS Mode of arrival: EMS <Delores Jordan - Last Filed: 04/28/19 10:20> - General Chief Complaint: Fall Stated Complaint: Fall Time Seen by Provider: 04/28/19 06:49 - History of Present Illness Initial Comments: 53yo female with PMH of relapsing remitting multiple sclerosis who is managed outpatient by Dr. Ramirez who presents today for chief complaint of MS exacerbation with fall. Patient states that she is having increasing weakness over the past week as well as URI symptoms such as congestion and cough, althought she has not measured her temperature she states that she has felt as though she has had on and off fevers. Patient states this feels identical to her previous MS exacerbations. Patient states she has chronic pain that comes and goes behind her eyes b/l, she states she has had optic neuritis. Patient states this morning she attempted to go to the bathroom but the shooting/shocking pain and weakness caused her legs to give out and she fell. She is unsure if she hit her head. Patient states she mainly has right shoulder, right side of neck pain, left hip and left knee pain. Patient called EMS for transportation to the ER, EMS states patient independently ambulating weight bearing on left lower extremity using right arm. Patient states she was supposed to come in on for infusion but states she didnt want to due to the holiday. Patient given order for 1,000mg solumedrol infusion over 2 hours with 20mg IVP pepcid prior and sliding scale novolog orders after. Patient states she is also supposed to get an MRI. Patient remaining ROS (-), denies chest pain, SOB, nausea, vomiting, diarrhea, dysuria, urgency, frequency, melena, hematochezia. Patient BP and HR elevated on arrival. (Delores Jordan) - Related Data Home Medications Medication Instructions Recorded Confirmed Albuterol Inhaler [Ventolin Hfa 2 puff INHALATION RT-Q6H PRN 02/20/14 04/28/19 Inhaler] Aspirin 81 mg PO DAILY 02/20/14 04/28/19 LORazepam [Ativan] 1 mg PO Q8H PRN 02/20/14 04/28/19 Verapamil HCl 120 mg PO DAILY 02/20/14 04/28/19 Gabapentin [Neurontin] 1,200 mg PO TID 08/19/16 04/28/19 Butalb/APAP/Caff 50-325-40Mg 1 tab PO Q8H 03/25/17 04/28/19 [Fioricet 50-325-40] oxyCODONE-APAP 10-325MG [Percocet 1 tab PO TID PRN 01/28/18 04/28/19 10-325 mg] Docusate [Colace] 100 mg PO DAILY PRN 04/02/18 04/28/19 Budesonide/Formoterol Fumarate 2 puff INHALATION RT-BID 05/06/18 04/28/19 [Symbicort 160-4.5 Mcg Inhaler] Cholecalciferol [Vitamin D3 (25 1,000 unit PO DAILY 05/07/18 04/28/19 Mcg = 1000 Iu)] Multivitamins, Thera [Multivitamin 1 tab PO DAILY 05/07/18 04/28/19 (formulary)] Pantoprazole Sodium [Protonix] 40 mg PO BID 10/31/18 04/28/19 Ipratropium-Albuterol Nebulize 3 ml INHALATION RT-QID 11/22/18 04/28/19 [Duoneb 0.5 mg-3 mg/3 ml Soln] Memantine [Namenda] 10 mg PO BID 11/22/18 04/28/19 Montelukast [Singulair] 10 mg PO DAILY 11/22/18 04/28/19 Fluticasone Nasal [place] [Flonase 2 spray EA NOSTRIL DAILY PRN 04/28/19 04/28/19 Nasal [place]] Methocarbamol [Robaxin-750] 750 mg PO TID 04/28/19 04/28/19 Nystatin 100,000 Unit/ml Susp 500,000 unit PO QID PRN 04/28/19 04/28/19 [Mycostatin Oral Susp] Previous Rx's Medication Instructions Recorded rOPINIRole HCL [Requip] 0.25 mg PO TID #90 tab 01/31/18 PARoxetine [Paxil] 40 mg PO DAILY tab 05/09/18 Hydrochlorothiazide [Hydrodiuril] 25 mg PO DAILY tab 11/26/18 Nicotine 21Mg/24Hr Patch [Habitrol] 1 patch TRANSDERM DAILY #30 patch 11/26/18 Allergies Allergy/AdvReac Type Severity Reaction Status Date / Time baclofen AdvReac URINARY Verified 04/28/19 07:52 ISSUES dexamethasone [From Decadron] AdvReac "THOMPSON Verified 04/28/19 07:53 SKIN"/DEHYDRATION Review of Systems ROS Other: All systems not noted in ROS Statement are negative. <Jaron Schmitt - Last Filed: 04/28/19 09:46> ROS Other: All systems not noted in ROS Statement are negative. <Delores Jordan - Last Filed: 04/28/19 10:20> ROS Statement: Those systems with pertinent positive or pertinent negative responses have been documented in the HPI. Past Medical History Past Medical History: Asthma, Cancer, COPD, Fibromyalgia, GERD/Reflux, Hype rtension, Neurologic Disorder, Osteoarthritis (OA), Syncope Additional Past Medical History / Comment(s): Rheumatic fever, heart murmur, osteoporosis, chronic bronchitis, MS of the relapsing remitting type, hypertension, fibromyalgia, COPD, uterine cancer, asthma, osteoarthritis, chronic vertigo History of Any Multi-Drug Resistant Organisms: None Reported Past Surgical History: Bladder Surgery, Heart Catheterization, Hysterectomy Additional Past Surgical History / Comment(s): uterine cancer, radiation,NERVE BLOCKS Past Anesthesia/Blood Transfusion Reactions: No Reported Reaction Additional Past Anesthesia/Blood Transfusion Reaction / Comment(s): mild clausterphobia Past Psychological History: Anxiety, Depression Smoking Status: Current every day smoker Past Alcohol Use History: None Reported Past Drug Use History: None Reported - Past Family History Mother Family Medical History: CVA/TIA, Myocardial Infarction (HI) Additional Family Medical History / Comment(s): Mother is alive at age 73 with history of brain aneurysm, 3 strokes and 2 myocardial infarctions. Father Additional Family Medical History / Comment(s): Father at age 72 from a cardiac arrest thought to be due to a myocardial infarction. Sister(s) Additional Family Medical History / Comment(s): Patient has 2 sisters with no major medical problems. Patient does not have any brothers. Patient has 2 children ages 34 and 27 with no major medical problems. Patient is only family member with MS. <Delores Jordan - Last Filed: 04/28/19 10:20> General Exam Limitations: no limitations <Delores Jordan - Last Filed: 04/28/19 10:20> - General Exam Comments Initial Comments: General: The patient is awake and alert, in no distress, but appears uncomfortable with movement Eye: Pupils are equal, round and reactive to light, extra-ocular movements are intact. Proptosis noted. No nystagmus. There is normal conjunctiva bilaterally. No signs of icterus. Ears, nose, mouth and throat: There are moist mucous membranes and no oral lesions. Neck: The neck is supple, there is no tenderness or JVD. Cardiovascular: There is a regular rate and rhythm. No murmur, rub or gallop is appreciated. Respiratory: Lungs are clear to auscultation, respirations are non-labored, breath sounds are equal. No wheezes, stridor, rales, or rhonchi. Gastrointestinal: Soft, non-distended, non-tender abdomen without masses or organomegaly noted. There is no rebound or guarding present. Musculoskeletal: Normal inspection of the hips b/l, back and UE with no gross deformity. No shortening or internal rotation of the LE/ Patient able to weight bear. Normal ROM, no tenderness. Strength 4/5 of the LE b/l and 5/5 of the UE b/l. Sensation intact. Radial and DP pulses equal bilaterally 2+. Neurological: A&O x 3. There are no obvious motor or sensory deficits. Coordination appears grossly intact. Patient stutters and has some dysarthria with specech. Skin: Skin is warm and dry and no rashes or lesions are noted. Psychiatric: Cooperative (Delores Jordan) Course <Jaron Schmitt - Last Filed: 04/28/19 09:46> Vital Signs 04/28/19 06:47 Temperature 98.1 F Pulse Rate 107 H Respiratory 18 Rate Blood Pressure 132/109 O2 Sat by Pulse 96 Oximetry - Reevaluation(s) Reevaluation #1: 04/28/19 09:46 Patient reexamined and reevaluated by myself, Dr. Schmitt. Patient resting comfortably in bed. No focal deficits. Mild diffuse weakness. Case was discussed in detail with Dr. Thomason, covering for Dr. Tabares who will admit. She does request urinalysis, neurology consult and Solu-Medrol to 50 mg every 6 ho urs. (Jaron Schmitt) Medical Decision Making - Lab Data Result diagrams: 04/28/19 07:05 04/28/19 07:05 <Jaron Schmitt - Last Filed: 04/28/19 09:46> - Lab Data Result diagrams: 04/28/19 07:05 04/28/19 07:05 <Delores Jordan - Last Filed: 04/28/19 10:20> - Medical Decision Making Imaging studies did not reveal acute osseous process. Patient able to weight- bear and is neurovascularly intact. Denies pain with eye movement, states has chronic shoot pain behind eyes with history of optic neuritis. Patient complaint of weakness with frequent falls she states this is similar to previous MS e xacerbations as she has relapsing remitting I feel she needs admission for IV steroids. Dr. Graham accepted admission patient was given 1 g in the emergency department. patient evaluated by Dr. Nettles agreeable with admission. Patient transferred to floor in stable condition. (Delores Jordan) - Lab Data Lab Results 04/28/19 04/28/19 Range/Units 07:05 07:05 WBC 12.6 H (3.8-10.6) k/uL RBC 5.23 (3.80-5.40) m/uL Hgb 16.4 H (11.4-16.0) gm/dL Hct 51.9 H (34.0-46.0) % MCV 99.3 (80.0-100.0) fL MCH 31.3 (25.0-35.0) pg MCHC 31.5 (31.0-37.0) g/dL RDW 13.0 (11.5-15.5) % Plt Count 268 (150-450) k/uL Neutrophils % 69 % Lymphocytes % 20 % Monocytes % 4 % Eosinophils % 2 % Basophils % 3 % Neutrophils # 8.7 H (1.3-7.7) k/uL Lymphocytes # 2.5 (1.0-4.8) k/uL Monocytes # 0.5 (0-1.0) k/uL Eosinophils # 0.3 (0-0.7) k/uL Basophils # 0.3 H (0-0.2) k/uL Sodium 137 (137-145) mmol/L Potassium 5.1 (3.5-5.1) mmol/L Chloride 98 (98-107) mmol/L Carbon Dioxide 29 (22-30) mmol/L Anion Gap 10 mmol/L BUN 10 (7-17) mg/dL Creatinine 0.55 (0.52-1.04) mg/dL Est GFR (CKD-EPI)AfAm >90 (>60 ml/min/1.73 sqM) Est GFR (CKD-EPI)NonAf >90 (>60 ml/min/1.73 sqM) Glucose 101 H (74-99) mg/dL Calcium 9.5 (8.4-10.2) mg/dL Total Bilirubin 0.9 (0.2-1.3) mg/dL AST 43 H (14-36) U/L ALT 41 H (4-34) U/L Alkaline Phosphatase 83 (38-126) U/L Total Protein 7.3 (6.3-8.2) g/dL Albumin 4.5 (3.5-5.0) g/dL Disposition <Jaron Schmitt - Last Filed: 04/28/19 09:46> Is patient prescribed a controlled substance at d/c from ED?: No Time of Disposition: 09:28 Decision to Admit Reason: Admit from EC Decision Date: 04/28/19 Decision Time: :28 <Delores Jordan - Last Filed: 04/28/19 10:20> Clinical Impression: Exacerbation of multiple sclerosis, Fall, Left hip pain Disposition: ADMITTED IP TO THIS [facility] Condition: Stable
[2019-04-28] MEDS ORDERED: methylPREDNISolone SOD SUCC 1,000 MG in SODIUM CHLORIDE 0.9% 250 ML IVPB STA (07:11)
[2019-04-28] MEDS ORDERED: FAMOTIDINE 20 MG/2 ML VIAL IV STA (07:11)
[2019-04-28 07:15] LABS: Basophils # (A) 0.3 k/uL (0-0.2); Basophils % (A) 3 %; Eosinophils # (A) 0.3 k/uL (0-0.7); Eosinophils % (A) 2 %; HCT 51.9 % (34.0-46.0); HGB 16.4 gm/dL (11.4-16.0); Lymphocytes # (A) 2.5 k/uL (1.0-4.8); Lymphocytes % (A) 20 %; MCH 31.3 pg (25.0-35.0); MCHC 31.5 g/dL (31.0-37.0); MCV 99.3 fL (80.0-100.0); Mean Platelet Volume 8.2; Monocytes # (A) 0.5 k/uL (0-1.0); Monocytes % (A) 4 %; Neutrophils # (A) 8.7 k/uL (1.3-7.7); Neutrophils % (A) 69 %; Platelet Count 268 k/uL (150-450); RBC 5.23 m/uL (3.80-5.40); WBC 12.6 k/uL (3.8-10.6)
[2019-04-28 07:34] LABS: ALT 41 U/L (4-34); AST 43 U/L (14-36); African American GFR (CKD) >90 (>60 ml/min/1.73 sqM); Albumin 4.5 g/dL (3.5-5.0); Alkaline Phosphatase 83 U/L (38-126); Anion Gap 10 mmol/L; Blood Urea Nitrogen 10 mg/dL (7-17); Calcium 9.5 mg/dL (8.4-10.2); Carbon Dioxide 29 mmol/L (22-30); Chloride 98 mmol/L (98-107); Glucose 101 mg/dL (74-99); Non-African American GFR(CKD) >90 (>60 ml/min/1.73 sqM); Sodium 137 mmol/L (137-145); Total Bilirubin 0.9 mg/dL (0.2-1.3); Total Protein 7.3 g/dL (6.3-8.2)
[2019-04-28 07:43] LABS: Potassium 5.1 mmol/L (3.5-5.1)
--- NOTE | 2019-04-28 08:00 | CT ---
EXAMINATION TYPE: CT brain cspine wo con DATE OF EXAM: 04/28/2019 COMPARISON: CT brain 11/22/2018 HISTORY: Fall, trauma and pain CT DLP: 1595.5 mGycm Automated exposure control for dose reduction was used. TECHNIQUE: CT scan of the head and cervical spine are performed without contrast. FINDINGS: There is no acute intracranial hemorrhage, mass effect, or midline shift identified. The ventricles and sulci are within normal limits in size. The globes are intact and the visualized sin uses are clear. Cervical spine is visualized in its entirety from C1 through upper thoracic levels and demonstrates s atisfactory alignment without evidence of acute fracture or dislocation. Prevertebral soft tissue ap pears within normal limits. The C1-C2 articulation is unremarkable. There is spondylosis, loss of d isc height present at intervertebral levels, reversal of normal cervical lordosis could be due to mus salvador spasm. IMPRESSION: 1. There is no acute fracture or dislocation evident in the cervical spine, there is degenerative dis c disease. 2. No acute intracranial hemorrhage, mass effect, or midline shift is seen.
[2019-04-28] MEDS: SODIUM CHLORIDE 0.9% 1,000 ML IV SCH ×2 (08:05→17:56)
--- NOTE | 2019-04-28 08:43 | XR ---
EXAMINATION TYPE: XR Hip LT and AP Pelvis DATE OF EXAM: 04/28/2019 COMPARISON: NONE HISTORY: 53-year-old female fall and left hip pain TECHNIQUE: AP view pelvis and 2 views left hip FINDINGS: SI joints appear symmetric and intact as does the pubic symphysis. Mild degenerative spurring of both hips. External rotation at the left hip limits visualization of the lower femoral neck region. No di splaced fracture. IMPRESSION: Some limitation in visualization of the lower femoral neck region due to patient positioning. Mild bi lateral hip OA. No displaced fracture seen.
--- NOTE | 2019-04-28 08:55 | XR ---
EXAMINATION TYPE: XR chest 2V DATE OF EXAM: 04/28/2019 COMPARISON: 11/22/2018 HISTORY: 53-year-old female pain after fall, MS, rule out infectious cause. TECHNIQUE: AP and lateral views FINDINGS: Heart remains borderline to mildly enlarged. Diffuse interstitial prominence appears in part chronic. No consolidation or pleural effusion. IMPRESSION: 1. Stable borderline to mild currently. 2. Diffuse interstitial prominence is unchanged, correlate to exclude mild pulmonary vascular congest ion.
--- NOTE | 2019-04-28 08:56 | XR ---
EXAMINATION TYPE: XR shoulder complete RT DATE OF EXAM: 04/28/2019 COMPARISON: 11/01/2018 HISTORY: 53-year-old female fall and right shoulder pain TECHNIQUE: 3 views FINDINGS: Moderate degenerative change at the AC joint with prominent marginal spurring. Subacromial space is p reserved. Mild degenerative spurring inferior glenohumeral joint. No acute fracture, subluxation, or dislocation. IMPRESSION: Moderate AC joint OA. Mild degenerative change at the glenohumeral joint. No acute osseous abnormalit y seen.
--- NOTE | 2019-04-28 08:58 | XR ---
EXAMINATION TYPE: XR knee complete LT DATE OF EXAM: 04/28/2019 COMPARISON: NONE HISTORY: 53-year-old female with fall and pain TECHNIQUE: 3 views FINDINGS: Moderate to severe narrowing of cartilage and joint space within the medial compartment. Pr ominent tricompartmental degenerative spurring is present. Some calcification/ossification along the distal quadriceps tendon. Posterior loose bodies as well as loose body within the suprapatellar pouch . No acute fracture, subluxation, or dislocation is seen. IMPRESSION: Tricompartmental osteoarthrosis, moderate to severe in the medial compartment. Chronic quadriceps ten dinopathy and loose bodies within the joint. No acute osseous abnormality seen.
[2019-04-28] MEDS ORDERED: HYDROCHLOROTHIAZIDE 25 MG TAB PO SCH (09:15)
[2019-04-28] MEDS ORDERED: IBUPROFEN 400 MG TAB PO PRN (09:26)
[2019-04-28] MEDS ORDERED: NALOXONE 0.4 MG/ML 1 ML VIAL IV PRN (09:26)
[2019-04-28] MEDS ORDERED: MORPHINE SULFATE 4 MG/ML SYRINGE IV PRN (09:26)
[2019-04-28 11:53] LABS: Glucose,Whole Blood 124 mg/dL (75-99)
[2019-04-28] MEDS ORDERED: DOCUSATE 100 MG CAP PO PRN (12:13)
[2019-04-28] MEDS ORDERED: ALBUTEROL NEBULIZED 2.5 MG/3 ML INHALATION PRN (12:13)
[2019-04-28] MEDS ORDERED: FLUTICASONE 50MCG/SPRAY NASAL 16GM EA NOSTRIL PRN (12:13)
[2019-04-28] MEDS ORDERED: PANTOPRAZOLE 40 MG/10 ML VIAL IVP SCH (12:30)
[2019-04-28] MEDS ORDERED: PATIENTS OWN MED PO SCH (12:55)
[2019-04-28] MEDS: LORazepam 1 MG TAB PO PRN ×2 (13:06→22:08)
[2019-04-28] MEDS: oxyCODONE-APAP 10-325MG 1 EACH TAB PO PRN ×2 (13:06→22:08)
[2019-04-28] MEDS: METHOCARBAMOL 750 MG TAB PO SCH ×3 (13:29→22:07)
[2019-04-28] MEDS: BUTALB/APAP/CAFF 50-325-40MG TAB PO PRN (13:29)
[2019-04-28] MEDS: GABAPENTIN 600 MG PO SCH ×3 (13:31→22:37)
[2019-04-28] MEDS: NICOTINE 21MG/24HR PATCH TRANSDERM SCH (15:29)
[2019-04-28] MEDS: IPRATROPIUM-ALBUTEROL 3 ML NEB INHALATION SCH ×2 (15:30→19:10)
--- NOTE | 2019-04-28 15:56 | P.HPIM ---
History of Present Illness H&P Date: 04/28/19 Chief Complaint: Weakness, falls, exacerbation of MS This is a 53-year-old female one of Dr. Tabares and Dr. Ramirez with a previous medical history significant for relapsing remitting multiple sclerosis, hypertension and hypertensive cardiovascular disease with left ventricular hypertrophy, history of GERD, multiple sclerosis, COPD, asthma, history of osteoporosis, uterine cancer status post surgery, patient was recently hospitalized at [facility] in 11/28/2018 for acute exacerbation of MS she was placed on IV Solu-Medrol at that time followed by Dr. Ramirez neurologist. She was scheduled to have IV Solu-Medrol 1 g April 26, however Dr. Ramirez's office did not send over the prescription to the hospital, patient was crying at that time as she doesn't want to be admitted, she has 3 falls last week, all with upper extremity weakness mainly in the right upper exam today, and left lower extremity weakness, also with eye pain, occipital headache, chest and her blood 04/06/[address] Ramirez, she received her last MS infusion, 04/11/2019 which is every six-month schedule. Patient denies any fever no chills, has increasing weakness, increasing status post stuttering, has difficulty in ambulating, was subsequently admitted the hospital secondary to MS exacerbation, she also has a benign aphasia, dysphagia, oral shai bilateral knee pain In the emergency room, sugars were 101, AST ALT slightly elevated alkaline Erin normal, albumin normal 4.5, creatinine 0.55, WBC count 12.6, x-rays of the knee shows tricompartmental arthritis, moderate to severe medial compartment, chronic quadriceps tendinopathy, loose body within the joint shoulder x-ray, shows moderate before meals joint OA, mild DJD clear glenohumeral joint hip x-ray, some limitation visualization, nocturnal hip OA, no fractures or displacement seen CAT scan of the brain which and cervical spine, shows no acute fracture dislocation, there is degenerative disc, no intracranial hemorrhage mass effect no midline shift. Neurology was consulted during this admission, with 1 g Solu- Medrol every 24 hours Review of Systems Constitutional: Reports as per HPI, Reports chills, Reports fatigue, Reports weakness, Denies anorexia, Denies chronic headaches, Denies chronic pain, Denies daytime sleepiness, Denies fever, Denies lethargy, Denies malaise, Denies night sweats, Denies poor appetite, Denies sweats, Denies weight gain, Denies weight loss Ears, nose, mouth and throat: Reports as per HPI, Reports mouth pain Breasts: Denies as per HPI, Denies breast feeding Cardiovascular: Reports as per HPI Respiratory: Reports as per HPI, Denies congestion, Denies cough, Denies cough with sputum, Denies dyspnea, Denies excessive sputum, Denies hemoptysis, Denies home oxygen, Denies pain, Denies pain on inspiration, Denies pleurisy, Denies respiratory infections, Denies sleep apnea, Denies snoring, Denies wheezing Gastrointestinal: Reports as per HPI, Denies abdominal pain, Denies belching, Denies bloating, Denies BRBPR, Denies change in bowel habits, Denies coffee ground emesis, Denies constipation, Denies diarrhea, Denies dyspepsia, Denies early satiety, Denies excessive gas, Denies heartburn, Denies hematemesis, Denies hematochezia, Denies indigestion, Denies jaundice, Denies lactose intolerance, Denies loss of appetite, Denies melena, Denies nausea, Denies vomiting Genitourinary: Reports as per HPI Menstruation: Reports as per HPI Musculoskeletal: Reports as per HPI, Reports frequent falls, Reports gait dysfunction, Reports limitation of motion, Denies arm numbness/tingling, Denies atrophy, Denies fractures, Denies hot joints, Denies leg numbness/tingling, Denies loss of height, Denies low back pain, Denies morning stiffness, Denies muscle cramps, Denies muscle weakness, Denies myalgias, Denies neck pain, Denies neck stiffness, Denies prior amputations, Denies redness of joints, Denies shooting arm pain, Denies shooting leg pain Integumentary: Reports as per HPI, Denies acne, Denies boils, Denies brittle nails, Denies change in hair/nails, Denies color changes, Denies darkening of skin, Denies depigmentation, Denies dryness, Denies foot/leg ulcers, Denies growths, Denies hirsutism, Denies lesions, Denies onychomycosis, Denies pruritus, Denies rash, Denies sores, Denies striae, Denies unusual bruising, Denies wounds Neurological: Reports as per HPI, Reports double vision, Reports gait dysfunction, Reports weakness, Denies aphasia, Denies ataxia, Denies balance difficulties, Denies burning pain, Denies change in mentation, Denies change in smell/taste, Denies change in speech, Denies confusion, Denies convulsions, Denies head injury, Denies headaches, Denies hearing difficulties, Denies lack of coordination, Denies loss of vision, Denies memory loss, Denies migraines, Denies motor disturbance, Denies numbness, Denies paralysis, Denies paresthesias, Denies seizures, Denies sensory deficit, Denies spasticity, Denies syncope, Denies tic, Denies tingling, Denies transient paralysis, Denies tremors, Denies vertigo, Denies visual changes Psychiatric: Reports as per HPI, Reports sleep disturbances, Denies anhedonia, Denies anxiety, Denies anxiety attacks, Denies change in appetite, Denies change in libido, Denies change in sleep habits, Denies confusion, Denies depression, Denies difficulty concentrating, Denies disorientation, Denies hallucinations, Denies hopelessness, Denies hypersomnia, Denies insomnia, Denies irritability, Denies memory loss, Denies mood swings, Denies paranoia, Denies sadness/tearfulness, Denies suicidal ideation Endocrine: Reports as per HPI Hematologic/Lymphatic: Reports as per HPI, Denies easy bleeding, Denies easy bruising, Denies lymphadenopathy, Denies lymphedema, Denies thrombophilia Allergic/Immunologic: Reports as per HPI, Denies allergic rhinitis, Denies anaphylaxis, Denies angioedema, Denies gluten intolerance, Denies persistent infections, Denies seasonal allergies, Denies urticaria, Denies wheezing Past Medical History Past Medical History: Asthma, Cancer, COPD, Eye Disorder, Fibromyalgia, GERD/Reflux, Hearing Disorder / Deafness, Hypertension, Memory Impairment, Neurologic Disorder, Osteoarthritis (OA), Pneumonia, Syncope Additional Past Medical History / Comment(s): MS relapsing/remitting type, chronic bilateral eye pain/optic neuritis/ poor vision, cataracts bilaterally, chronic occipital neuralgia, osteoporosis, RLS, chronic hypoxic respiratory failure with home oxygen 2L/NC prn, chronic bronchitis, immunocompromised, elevated blood sugar with steroid use, uterine cancer with hysterectomy/radiation, heart murmur, mild cognitive impairment, chronic vertigo, falls, rheumatic fever as child, tinnitis bilaterally, allergic rhinitis. History of Any Multi-Drug Resistant Organisms: None Reported Past Surgical History: Bladder Surgery, Heart Catheterization, Hysterectomy Additional Past Surgical History / Comment(s): Nerve blocks, bladder suspension. Past Anesthesia/Blood Transfusion Reactions: No Reported Reaction Additional Past Anesthesia/Blood Transfusion Reaction / Comment(s): mild cla usterphobia Smoking Status: Current every day smoker - Past Family History Mother Family Medical History: CVA/TIA, Myocardial Infarction ([place]) Additional Family Medical History / Comment(s): Mother is alive at age 74 with history of brain aneurysm, 3 strokes and 2 myocardial infarctions. Brain aneurysms run on mother's side of family Father Additional Family Medical History / Comment(s): Father at age 72 from a cardiac arrest thought to be due to a myocardial infarction. Sister(s) Additional Family Medical History / Comment(s): Patient has 2 sisters with no major medical problems. Patient does not have any brothers. Patient has 2 adult children with no major medical problems. Patient is only family member with MS. Medications and Allergies Home Medications Medication Instructions Recorded Confirmed Type Albuterol Inhaler [Ventolin Hfa 2 puff INHALATION RT-Q6H PRN 02/20/14 04/28/19 History Inhaler] Aspirin 81 mg PO DAILY 02/20/14 04/28/19 History LORazepam [Ativan] 1 mg PO Q8H PRN 02/20/14 04/28/19 History Verapamil HCl 120 mg PO DAILY 02/20/14 04/28/19 History Gabapentin [Neurontin] 1,200 mg PO TID 08/19/16 04/28/19 History Butalb/APAP/Caff 50-325-40Mg 1 tab PO Q8H 03/25/17 04/28/19 History [Fioricet 50-325-40] oxyCODONE-APAP 10-325MG [Percocet 1 tab PO TID PRN 01/28/18 04/28/19 History 10-325 mg] rOPINIRole HCL [Requip] 0.25 mg PO TID #90 tab 01/31/18 04/28/19 Rx Docusate [Colace] 100 mg PO DAILY PRN 04/02/18 04/28/19 History Budesonide/Formoterol Fumarate 2 puff INHALATION RT-BID 05/06/18 04/28/19 History [Symbicort 160-4.5 Mcg Inhaler] Cholecalciferol [Vitamin D3 (25 1,000 unit PO DAILY 05/07/18 04/28/19 History Mcg = 1000 Iu)] Multivitamins, Thera [Multivitamin 1 tab PO DAILY 05/07/18 04/28/19 History (formulary)] PARoxetine [Paxil] 40 mg PO DAILY tab 05/09/18 04/28/19 Rx Pantoprazole Sodium [Protonix] 40 mg PO BID 10/31/18 04/28/19 History Ipratropium-Albuterol Nebulize 3 ml INHALATION RT-QID 11/22/18 04/28/19 History [Duoneb 0.5 mg-3 mg/3 ml Soln] Memantine [Namenda] 10 mg PO BID 11/22/18 04/28/19 History Montelukast [Singulair] 10 mg PO DAILY 11/22/18 04/28/19 History Hydrochlorothiazide [Hydrodiuril] 25 mg PO DAILY tab 11/26/18 04/28/19 Rx Nicotine 21Mg/24Hr Patch [Habitrol] 1 patch TRANSDERM DAILY #30 patch 11/26/18 04/28/19 Rx Fluticasone Nasal [place] [Flonase 2 spray EA NOSTRIL DAILY PRN 04/28/19 04/28/19 History Nasal [place]] Methocarbamol [Robaxin-750] 750 mg PO TID 04/28/19 04/28/19 History Nystatin 100,000 Unit/ml Susp 500,000 unit PO QID PRN 04/28/19 04/28/19 History [Mycostatin Oral Susp] Allergies Allergy/AdvReac Type Severity Reaction Status Date / Time baclofen AdvReac URINARY Verified 04/28/19 07:52 ISSUES dexamethasone [From Decadron] AdvReac "THOMPSON Verified 04/28/19 07:53 SKIN"/DEHYDRATION Physical Exam Vitals: Vital Signs Temp Pulse Pulse Resp BP BP Pulse Ox 04/28/19 15:30 82 18 04/28/19 15:00 98.6 F 94 16 128/71 92 L 04/28/19 11:17 98.1 F 99 20 136/89 94 L 04/28/19 10:39 90 18 105/68 100 04/28/19 08:50 88 109/88 93 L 04/28/19 06:47 98.1 F 107 H 18 132/109 96 Intake and Output 04/28/19 04/28/19 04/28/19 06:59 14:59 22:59 Intake Total 890 Balance 890 Intake: Intake, IV Titration 650 Amount Sodium Chloride 0.9% 1, 400 000 ml @ 100 mls/hr IV . Q10H ANDREAS Rx#:[id number] methylPREDNISolone SOD 250 SUCC 1,000 mg In Sodium Chloride 0.9% 250 ml @ 250 mls/hr IVPB ONCE STA Rx#:[id number] Oral 240 Other: # Voids 1 Weight 63.503 kg 63.503 kg - Constitutional General appearance: average body habitus, cooperative, no acute distress - EENT Eyes: anicteric sclerae, PERRLA, dentition normal - Neck Neck: normal ROM - Respiratory Respiratory: bilateral: CTA, negative: diminished, dullness - Cardiovascular Rhythm: regular Heart sounds: normal: S1, S2 Abnormal Heart Sounds: no systolic murmur, no diastolic murmur, no rub, no S3 Gallop, no S4 Gallop, no click, no other - Gastrointestinal General gastrointestinal: normal bowel sounds, soft - Integumentary Integumentary: decreased turgor, normal - Neurologic Neurologic: CNII-XII intact, focal deficits (No cranial deficits) - Musculoskeletal Slightly weakened left right upper extremity rate crit, lack of endurance left lower extremity on sustained raise Musculoskeletal: generalized weakness, strength equal bilaterally Results CBC & Chem 7: 04/28/19 07:05 04/28/19 07:05 Labs: Abnormal Lab Results - Last 24 Hours (Table) 04/28/19 04/28/19 04/28/19 Range/Units 07:05 07:05 11:41 WBC 12.6 H (3.8-10.6) k/uL Hgb 16.4 H (11.4-16.0) gm/dL Hct 51.9 H (34.0-46.0) % Neutrophils # 8.7 H (1.3-7.7) k/uL Basophils # 0.3 H (0-0.2) k/uL Glucose 101 H (74-99) mg/dL POC Glucose (mg/dL) 124 H (75-99) mg/dL AST 43 H (14-36) U/L ALT 41 H (4-34) U/L Laboratory Results WBC 12.6 k/uL (3.8-10.6) H 04/28/19 07:05 RBC 5.23 m/uL (3.80-5.40) 04/28/19 07:05 Hgb 16.4 gm/dL (11.4-16.0) H 04/28/19 07:05 Hct 51.9 % (34.0-46.0) H 04/28/19 07:05 MCV 99.3 fL (80.0-100.0) 04/28/19 07:05 MCH 31.3 pg (25.0-35.0) 04/28/19 07:05 MCHC 31.5 g/dL (31.0-37.0) 04/28/19 07:05 RDW 13.0 % (11.5-15.5) 04/28/19 07:05 Plt Count 268 k/uL (150-450) 04/28/19 07:05 Neutrophils % 69 % 04/28/19 07:05 Lymphocytes % 20 % 04/28/19 07:05 Monocytes % 4 % 04/28/19 07:05 Eosinophils % 2 % 04/28/19 07:05 Basophils % 3 % 04/28/19 07:05 Neutrophils # 8.7 k/uL (1.3-7.7) H 04/28/19 07:05 Lymphocytes # 2.5 k/uL (1.0-4.8) 04/28/19 07:05 Monocytes # 0.5 k/uL (0-1.0) 04/28/19 07:05 Eosinophils # 0.3 k/uL (0-0.7) 04/28/19 07:05 Basophils # 0.3 k/uL (0-0.2) H 04/28/19 07:05 Sodium 137 mmol/L (137-145) 04/28/19 07:05 Potassium 5.1 mmol/L (3.5-5.1) 04/28/19 07:05 Chloride 98 mmol/L (98-107) 04/28/19 07:05 Carbon Dioxide 29 mmol/L (22-30) 04/28/19 07:05 Anion Gap 10 mmol/L 04/28/19 07:05 BUN 10 mg/dL (7-17) 04/28/19 07:05 Creatinine 0.55 mg/dL (0.52-1.04) 04/28/19 07:05 Est GFR (CKD-EPI)AfAm >90 (>60 ml/min/1.73 sqM) 04/28/19 07:05 Est GFR (CKD-EPI)NonAf >90 (>60 ml/min/1.73 sqM) 04/28/19 07:05 Glucose 101 mg/dL (74-99) H 04/28/19 07:05 POC Glucose (mg/dL) 124 mg/dL (75-99) H 04/28/19 11:41 POC Glu [employer] ID Aysha Fonseca 04/28/19 11:41 Calcium 9.5 mg/dL (8.4-10.2) 04/28/19 07:05 Total Bilirubin 0.9 mg/dL (0.2-1.3) 04/28/19 07:05 AST 43 U/L (14-36) H 04/28/19 07:05 ALT 41 U/L (4-34) H 04/28/19 07:05 Alkaline Phosphatase 83 U/L (38-126) 04/28/19 07:05 Total Protein 7.3 g/dL (6.3-8.2) 04/28/19 07:05 Albumin 4.5 g/dL (3.5-5.0) 04/28/19 07:05 Thrombosis Risk Factor Assmnt - DVT/VTE Prophylaxis DVT/VTE Prophylaxis: Pharmacologic Prophylaxis ordered - Choose All That Apply Any of the Below Risk Factors Present?: Yes Each Factor Represents 1 point: Abnormal pulmonary function (COPD), Age 41-60 years, Obesity (BMI >25) Other Risk Factors: Yes Each Risk Factor Represents 2 Points: Malignancy Other congenital or acquired thrombophilia - If yes, enter type in comment: No Thrombosis Risk Factor Assessment Total Risk Factor Score: 5 Thrombosis Risk Factor Assessment Level: High Risk Assessment and Plan Plan: 1 Acute exacerbation Relapsing remitting multiple sclerosis . Solu-Medrol 1 g every 24 hours Continue baclofen, monitor the patient very closely. Consult with neurology sliding scale coverage 2. Recurrent falls, dysphagia, increasing stuttering, patient will be seen by speech therapy, might need swallow eval, loss perioperative events, patient to continue on PT OT 3. Severe DJD bilateral knees, moderate arthritis in shoulders and hips, patient has chronic pain meds from a pain specialist 4. Chronic pain and occipital neuralgia under the care of Dr. Ramirez. Continue gabapentin 1200mg 3 times daily home supply as she has difficulty in swallowing the capsules, Percocet one 3 times daily as needed, Fioricet as needed. 5. Hypertension and hypertensive cardiovascular disease. Continue verapamil 120 mg orally once every day. 6. Obesity with possible obstructive sleep apnea and obesity hypoventilation syndrome. Recommend outpatient sleep study 7. Mild intermittent asthma and COPD. Continue nebulized treatment 4 times every day. Support with oxygen as needed. 8. Fibromyalgia. Continue gabapentin 1200 mg orally 3 times every day. 8. ALLERGIC rhinitis, stable. 9. Recurrent depression. Continue Paxil 40 mg daily. 10. Chronic tobacco use and dependence. Smoking cessation and counseling an increased risk of CAD, CVA, and malignancy. Continue nicotine patch 21 mg once every day. 11. Mild cognitive impairment. Continue patient on Namenda 10 mg orally twice every day. 13. Restless leg syndrome. Continue Requip 0.25 mg 2 times daily 14. DVT prophylaxis. Lovenox 40 mg subcutaneously every 24 hours , bilateral knee-high MAYUR hose. 15. GI prophylaxis. Continue with Protonix 40 mg orally twice every day. 16. Thrush. Continue nystatin swish and swallow 5 mL orally 4 times every day. check aic
[2019-04-28] MEDS ORDERED: GABAPENTIN 1200 MG PO SCH (16:00)
[2019-04-28 17:12] LABS: Glucose,Whole Blood 165 mg/dL (75-99)
--- NOTE | 2019-04-28 18:23 | P.CNNES ---
History of Present Illness Consult date: 04/28/19 Requesting physician: Jaron Schmitt Reason for Consult: MS exacerbation History of Present Illness: Patient is a 53-year-old female who was diagnosed with MS 7 years ago after she reports having recurrent falls. Patient states that she has signs of MS in her brain and spine. Patient has previously tried Copaxone, Glatopa and Tecfidera. Patient had severe side effects from Tecfidera. Most recently she has been started on Ocrevus, which she received the first dose in July 2018. She could not receive second dose because of some insurance problems. She ultimately received a second dose of Ocrevus on 04/06/2019. Patient states that recently she is feeling she is in "exacerbation mode". She had 3 bad falls last week. Patient also complaining of pain in the neck, right occipital region. She feels she is walking and bumping into the cardenas. She feels one of her fall was a "neurological fall". She is also having more difficulty with expressing herself due to structuring. Patient follows up with Dr. Hernandez. Patient states she had MRIs of the brain performed recently which showed multiple lesions. The MRI was performed at the neurologist office. Patient also has evidence of thrush, and wants nystatin slush and swallow. She smokes a half pack per day since 20s. Patient takes Namenda 10 mg twice a day for cognitive impairment and Requip. 0.25 mg 3 times a day for restless leg symptoms. Patient's last MRI of the brain with and without contrast from 11/24/2018 showed some progression in white matter demyelinating disease. No evidence of acute infarction. Her last MRI of the cervical spine from 03/15/2015 showed no suspicious focal areas of T2 signal to suggest demyelinating disease involvement in cervical spinal cord. There are stable mild multilevel degenerative changes centered in the mid cervical spine. Patient had more recent MRIs which were performed at her neurologist office. Patient's blood test shows WBC 12.6, hemoglobin 16.4, platelets 268. Her last hemoglobin A1c is 6.1 on 02/11/2019. AST is mildly elevated 43 and ALT 41. Her total cholesterol is 125, LDL 66, HDL 45 and triglycerides 72. Vitamin B1 is normal 91, vitamin B6 is low 3. B12 is 358, in vitamin D 31.8, folate 4.8 as of 02/11/2019. TSH normal. Past Medical History Past Medical History: Asthma, Cancer, COPD, Eye Disorder, Fibromyalgia, GERD/Reflux, Hearing Disorder / Deafness, Hypertension, Memory Impairment, Neurologic Disorder, Osteoarthritis (OA), Pneumonia, Syncope Additional Past Medical History / Comment(s): MS relapsing/remitting type, chronic bilateral eye pain/optic neuritis/ poor vision, cataracts bilaterally, chronic occipital neuralgia, osteoporosis, RLS, chronic hypoxic respiratory failure with home oxygen 2L/NC prn, chronic bronchitis, immunocompromised, elevated blood sugar with steroid use, uterine cancer with hysterectomy/radiation, heart murmur, mild cognitive impairment, chronic vertigo, falls, rheumatic fever as child, tinnitis bilaterally, allergic rhinitis. History of Any Multi-Drug Resistant Organisms: None Reported Past Surgical History: Bladder Surgery, Heart Catheterization, Hysterectomy Additional Past Surgical History / Comment(s): Nerve blocks, bladder suspension. Past Anesthesia/Blood Transfusion Reactions: No Reported Reaction Additional Past Anesthesia/Blood Transfusion Reaction / Comment(s): mild clausterphobia Smoking Status: Current every day smoker - Past Family History Mother Family Medical History: CVA/TIA, Myocardial Infarction (MA) Additional Family Medical History / Comment(s): Mother is alive at age 74 with history of brain aneurysm, 3 strokes and 2 myocardial infarctions. Brain aneurysms run on mother's side of family Father Additional Family Medical History / Comment(s): Father at age 72 from a cardiac arrest thought to be due to a myocardial infarction. Sister(s) Additional Family Medical History / Comment(s): Patient has 2 sisters with no major medical problems. Patient does not have any brothers. Patient has 2 adult children with no major medical problems. Patient is only family member with MS. Medications and Allergies Home Medications Medication Instructions Recorded Confirmed Type Albuterol Inhaler [Ventolin Hfa 2 puff INHALATION RT-Q6H PRN 02/20/14 04/28/19 History Inhaler] Aspirin 81 mg PO DAILY 02/20/14 04/28/19 History LORazepam [Ativan] 1 mg PO Q8H PRN 02/20/14 04/28/19 History Verapamil HCl 120 mg PO DAILY 02/20/14 04/28/19 History Gabapentin [Neurontin] 1,200 mg PO TID 08/19/16 04/28/19 History Butalb/APAP/Caff 50-325-40Mg 1 tab PO Q8H 03/25/17 04/28/19 History [Fioricet 50-325-40] oxyCODONE-APAP 10-325MG [Percocet 1 tab PO TID PRN 01/28/18 04/28/19 History 10-325 mg] rOPINIRole HCL [Requip] 0.25 mg PO TID #90 tab 01/31/18 04/28/19 Rx Docusate [Colace] 100 mg PO DAILY PRN 04/02/18 04/28/19 History Budesonide/Formoterol Fumarate 2 puff INHALATION RT-BID 05/06/18 04/28/19 History [Symbicort 160-4.5 Mcg Inhaler] Cholecalciferol [Vitamin D3 (25 1,000 unit PO DAILY 05/07/18 04/28/19 History Mcg = 1000 Iu)] Multivitamins, Thera [Multivitamin 1 tab PO DAILY 05/07/18 04/28/19 History (formulary)] PARoxetine [Paxil] 40 mg PO DAILY tab 05/09/18 04/28/19 Rx Pantoprazole Sodium [Protonix] 40 mg PO BID 10/31/18 04/28/19 History Ipratropium-Albuterol Nebulize 3 ml INHALATION RT-QID 11/22/18 04/28/19 History [Duoneb 0.5 mg-3 mg/3 ml Soln] Memantine [Namenda] 10 mg PO BID 11/22/18 04/28/19 History Montelukast [Singulair] 10 mg PO DAILY 11/22/18 04/28/19 History Hydrochlorothiazide [Hydrodiuril] 25 mg PO DAILY tab 11/26/18 04/28/19 Rx Nicotine 21Mg/24Hr Patch [Habitrol] 1 patch TRANSDERM DAILY #30 patch 11/26/18 04/28/19 Rx Fluticasone Nasal [place] [Flonase 2 spray EA NOSTRIL DAILY PRN 04/28/19 04/28/19 History Nasal [place]] Methocarbamol [Robaxin-750] 750 mg PO TID 04/28/19 04/28/19 History Nystatin 100,000 Unit/ml Susp 500,000 unit PO QID PRN 04/28/19 04/28/19 History [Mycostatin Oral Susp] Allergies Allergy/AdvReac Type Severity Reaction Status Date / Time baclofen AdvReac URINARY Verified 04/28/19 07:52 ISSUES dexamethasone [From Decadron] AdvReac "THOMPSON Verified 04/28/19 07:53 SKIN"/DEHYDRATION Physical Examination - Vital Signs Vital Signs: Vital Signs Temp Pulse Pulse Resp BP BP Pulse Ox 04/28/19 15:56 17 04/28/19 15:40 81 18 04/28/19 15:30 82 18 04/28/19 15:00 98.6 F 94 16 128/71 92 L 04/28/19 11:17 98.1 F 99 20 136/89 94 L 04/28/19 10:39 90 18 105/68 100 04/28/19 08:50 88 109/88 93 L 04/28/19 06:47 98.1 F 107 H 18 132/109 96 Intake and Output 04/28/19 04/28/19 04/28/19 06:59 14:59 22:59 Intake Total 890 Balance 890 Intake: Intake, IV Titration 650 Amount Sodium Chloride 0.9% 1, 400 000 ml @ 100 mls/hr IV . Q10H ANDREAS Rx#:[id number] methylPREDNISolone SOD 250 SUCC 1,000 mg In Sodium Chloride 0.9% 250 ml @ 250 mls/hr IVPB ONCE STA Rx#:[id number] Oral 240 Other: Voiding Method Toilet # Voids 1 1 Weight 63.503 kg 63.503 kg On examination patient is a middle aged Afro-[place] female, in no distress. P atient is alert and awake fairly well oriented. Her speech is stuttering. No aphasia or dysarthria otherwise. Patient does go off tangential sometimes. On cranial nerve examination pupils are round and reacting to light, visual schwarz are full on confrontation, extraocular muscles are intact. Face is symmetric and tongue protrudes the midline. Palatal elevation and sensation normal. On muscle strength testing there is no pronator drift and the strength is normal in arms and legs except right brazer resistance, which is weak about 4+. Reflexes symmetric 2+ and plantars appears downgoing. No clonus. No obvious ataxia for [id number] testing. Sensory touch is equal with no neglect. Gait deferred. There is no obvious bruit or murmur. Lungs are clear to auscultation. Results - Laboratory Findings CBC and BMP: 04/28/19 07:05 04/28/19 07:05 Abnormal Lab Findings: Abnormal Labs 04/28/19 04/28/19 04/28/19 07:05 07:05 11:41 WBC 12.6 H Hgb 16.4 H Hct 51.9 H Neutrophils # 8.7 H Basophils # 0.3 H Glucose 101 H POC Glucose (mg/dL) 124 H AST 43 H ALT 41 H 04/28/19 17:09 WBC Hgb Hct Neutrophils # Basophils # Glucose POC Glucose (mg/dL) 165 H AST ALT Assessment and Plan Assessment: * Relapsing remitting MS with possible exacerbation with frequent falls, increased stuttering speech. * Occipital neuralgia * Oral thrush. * Folate deficiency * Vitamin B6 deficiency * Vitamin D deficiency. * Restless leg syndrome * Obesity * Tobacco user. Plan: * Patient has received Solu-Medrol 1 g IVPB daily at 9 AM. Patient will receive Solu-Medrol 1 g IV PB daily for total of 3-5 days. * Patient is aware that steroids can make her thrush worse. We will start nystatin. * Start vitamin B6 and folate replacement. * Suggest tobacco cessation.
[2019-04-28] MEDS: FOLIC ACID 1 MG TAB PO SCH (18:36)
[2019-04-28] MEDS: SYMBICORT 160-4.5 MCG INHALER INHALATION SCH (19:11)
[2019-04-28 19:32] LABS: Appearance,Urine Clear (Clear); Bilirubin,Urine Negative (Negative); Blood,Urine Negative (Negative); Color,Urine Yellow; Glucose,Urine (UA) Negative (Negative); Ketones,Urine Negative (Negative); Leukocyte Esterase,Urine Negative (Negative); Nitrite,Urine Negative (Negative); PH, Urine 5.5 (5.0-8.0); Protein,Urine Negative (Negative); Urobilinogen,Urine <2.0 mg/dL (<2.0)
[2019-04-28] MEDS ORDERED: PANTOPRAZOLE 40 MG TABLET PO SCH (21:00)
[2019-04-28 21:16] LABS: Glucose,Whole Blood 159 mg/dL (75-99)
[2019-04-28] MEDS: PYRIDOXINE 50 MG TAB PO SCH (22:00)
[2019-04-28] MEDS: MEMANTINE 10 MG TAB PO SCH (22:00)
[2019-04-28] MEDS: MELATONIN 3 MG TABLET PO SCH (22:00)
[2019-04-28] MEDS: INSULIN ASPART (NovoLOG) 100 UNIT/ML VIAL SQ SCH (22:07)
[2019-04-29] MEDS: SODIUM CHLORIDE 0.9% 1,000 ML IV SCH ×2 (06:21→15:58)
[2019-04-29] MEDS: methylPREDNISolone SOD SUCC 1,000 MG in SODIUM CHLORIDE 0.9% 250 ML IVPB SCH (06:34)
[2019-04-29] MEDS: SYMBICORT 160-4.5 MCG INHALER INHALATION SCH ×2 (07:03→19:13)
[2019-04-29] MEDS: IPRATROPIUM-ALBUTEROL 3 ML NEB INHALATION SCH ×4 (07:03→19:14)
[2019-04-29 07:29] LABS: Glucose,Whole Blood 104 mg/dL (75-99)
[2019-04-29] MEDS: INSULIN ASPART (NovoLOG) 100 UNIT/ML VIAL SQ SCH ×4 (08:56→21:37)
[2019-04-29] MEDS: METHOCARBAMOL 750 MG TAB PO SCH ×3 (08:57→21:38)
[2019-04-29] MEDS: NICOTINE 21MG/24HR PATCH TRANSDERM SCH (08:57)
[2019-04-29] MEDS: MULTIVITAMINS, THERA 1 EACH TAB PO SCH (08:58)
[2019-04-29] MEDS: PYRIDOXINE 50 MG TAB PO SCH (08:58)
[2019-04-29] MEDS: FOLIC ACID 1 MG TAB PO SCH (08:58)
[2019-04-29] MEDS: MONTELUKAST 10 MG TAB PO SCH (08:58)
[2019-04-29] MEDS: ASPIRIN 81 MG PO SCH (08:58)
[2019-04-29] MEDS: CHOLECALCIFEROL 1,000 UNIT TAB PO SCH (08:58)
[2019-04-29] MEDS: MEMANTINE 10 MG TAB PO SCH ×2 (08:58→21:37)
[2019-04-29] MEDS: HYDROCHLOROTHIAZIDE 25 MG TAB PO SCH (08:58)
[2019-04-29] MEDS: VERAPAMIL SR 120 MG TABLET.ER PO SCH (08:58)
[2019-04-29] MEDS: PARoxetine 20 MG TAB PO SCH (08:58)
[2019-04-29] MEDS ORDERED: PANTOPRAZOLE 40 MG TABLET PO SCH (09:00)
[2019-04-29] MEDS: BUTALB/APAP/CAFF 50-325-40MG TAB PO PRN ×3 (09:16→21:52)
[2019-04-29] MEDS: LORazepam 1 MG TAB PO PRN ×3 (09:17→21:38)
[2019-04-29] MEDS: NYSTATIN 100,000 UNIT/ML SUSP 500,000 UNIT/5 ML CUP PO PRN ×2 (09:17→21:52)
[2019-04-29] MEDS: GABAPENTIN 600 MG PO SCH ×3 (10:42→21:43)
[2019-04-29 12:34] LABS: Glucose,Whole Blood 101 mg/dL (75-99)
--- NOTE | 2019-04-29 16:54 | P.PN ---
Subjective Progress Note Date: 04/29/19 Chief Complaint: Weakness, falls, exacerbation of MS This is a 53-year-old female one of Dr. Tabares and Dr. Chanel with a previous medical history significant for relapsing remitting multiple sclerosis, hypertension and hypertensive cardiovascular disease with left ventricular hyp ertrophy, history of GERD, multiple sclerosis, COPD, asthma, history of osteoporosis, uterine cancer status post surgery, patient was recently hospitalized at [facility] in 11/28/2018 for acute exacerbation of MS she was placed on IV Solu-Medrol at that time followed by Dr. Chanel neurol ogist. She was scheduled to have IV Solu-Medrol 1 g April 26, however Dr. Chanel's office did not send over the prescription to the hospital, patient was crying at that time as she doesn't want to be admitted, she has 3 falls last week, all with upper extremity weakness mainly in the right upper exam today, and left lower extremity weakness, also with eye pain, occipital headache, chest and her blood 04/06/[address] Chanel, she received her last MS infusion, 04/11/2019 which is every six-month schedule. Patient denies any fever no chills, has increasing weakness, increasing status post stuttering, has difficulty in ambulating, was subsequently admitted the hospital secondary to MS exacerbation, she also has a benign aphasia, dysphagia, oral shai bilateral knee pain In the emergency room, sugars were 101, AST ALT slightly elevated alkaline Rebuck normal, albumin normal 4.5, creatinine 0.55, WBC count 12.6, x-rays of the knee shows tricompartmental arthritis, moderate to severe medial compartment, chronic quadriceps tendinopathy, loose body within the joint shoulder x-ray, shows moderate before meals joint OA, mild DJD clear glenohumeral joint hip x-ray, some limitation visualization, nocturnal hip OA, no fractures or displacement seen CAT scan of the brain which and cervical spine, shows no acute fracture dislocation, there is degenerative disc, no intracranial hemorrhage mass effect no midline shift. Neurology was consulted during this admission, with 1 g Solu-Medrol every 24 hours 04/29, ptient with multiple complaints today, has headache left post occiput whi ch is chronic,, has increase stuttering and edgy, has been more hyper since steroids, has no nausea but has dyspepsia, on omeprzole bid, wants additional pepcid, undergoing therpies today but is distracted easily. will add buspar, pepcid, pos increaseativan to 1 mg, but caution on sedation, add topical volaren or lidocaine for occipital neuralgia, already had vikram from dr chanel as OP 04/06/19 Review of Systems Constitutional: Reports as per HPI, Reports chills, Reports fatigue, Reports weakness, Denies anorexia, Denies chronic headaches, Denies chronic pain, Denies daytime sleepiness, Denies fever, Denies lethargy, Denies malaise, Denies night sweats, Denies poor appetite, Denies sweats, Denies weight gain, Denies weight loss Ears, nose, mouth and throat: Reports as per HPI, Reports mouth pain Breasts: Denies as per HPI, Denies breast feeding Cardiovascular: Reports as per HPI Respiratory: Reports as per HPI, Denies congestion, Denies cough, Denies cough with sputum, Denies dyspnea, Denies excessive sputum, Denies hemoptysis, Denies home oxygen, Denies pain, Denies pain on inspiration, Denies pleurisy, Denies respiratory infections, Denies sleep apnea, Denies snoring, Denies wheezing Gastrointestinal: Reports as per HPI, Denies abdominal pain, Denies belching, Denies bloating, Denies BRBPR, Denies change in bowel habits, Denies coffee ground emesis, Denies constipation, Denies diarrhea, Denies dyspepsia, Denies early satiety, Denies excessive gas, Denies heartburn, Denies hematemesis, Denies hematochezia, Denies indigestion, Denies jaundice, Denies lactose intolerance, Denies loss of appetite, Denies melena, Denies nausea, Denies vomiting Genitourinary: Reports as per HPI Menstruation: Reports as per HPI Musculoskeletal: Reports as per HPI, Reports frequent falls, Reports gait dysfunction, Reports limitation of motion, Denies arm numbness/tingling, Denies atrophy, Denies fractures, Denies hot joints, Denies leg numbness/tingling, Denies loss of height, Denies low back pain, Denies morning stiffness, Denies muscle cramps, Denies muscle weakness, Denies myalgias, Denies neck pain, Denies neck stiffness, Denies prior amputations, Denies redness of joints, Denies shooting arm pain, Denies shooting leg pain Integumentary: Reports as per HPI, Denies acne, Denies boils, Denies brittle nails, Denies change in hair/nails, Denies color changes, Denies darkening of skin, Denies depigmentation, Denies dryness, Denies foot/leg ulcers, Denies growths, Denies hirsutism, Denies lesions, Denies onychomycosis, Denies pruritus, Denies rash, Denies sores, Denies striae, Denies unusual bruising, Denies wounds Neurological: Reports as per HPI, Reports double vision, Reports gait d ysfunction, Reports weakness, Denies aphasia, Denies ataxia, Denies balance difficulties, Denies burning pain, Denies change in mentation, Denies change in smell/taste, Denies change in speech, Denies confusion, Denies convulsions, Denies head injury, Denies headaches, Denies hearing difficulties, Denies lack of coordination, Denies loss of vision, Denies memory loss, Denies migraines, Denies motor disturbance, Denies numbness, Denies paralysis, Denies paresthesias, Denies seizures, Denies sensory deficit, Denies spasticity, Denies syncope, Denies tic, Denies tingling, Denies transient paralysis, Denies tremors, Denies vertigo, Denies visual changes Psychiatric: Reports as per HPI, Reports sleep disturbances, Denies anhedonia, Denies anxiety, Denies anxiety attacks, Denies change in appetite, Denies change in libido, Denies change in sleep habits, Denies confusion, Denies depression, Denies difficulty concentrating, Denies disorientation, Denies hallucinations, Denies hopelessness, Denies hypersomnia, Denies insomnia, Denies irritability, Denies memory loss, Denies mood swings, Denies paranoia, Denies sadness/tearfulness, Denies suicidal ideation Endocrine: Reports as per HPI Hematologic/Lymphatic: Reports as per HPI, Denies easy bleeding, Denies easy bruising, Denies lymphadenopathy, Denies lymphedema, Denies thrombophilia Allergic/Immunologic: Reports as per HPI, Denies allergic rhinitis, Denies anaphylaxis, Denies angioedema, Denies gluten intolerance, Denies persistent in fections, Denies seasonal allergies, Denies urticaria, Denies wheezing Objective - Vital Signs Vital signs: Vital Signs Temp 98.3 F 04/29/19 06:00 Pulse 82 04/29/19 07:16 Resp 18 04/29/19 06:00 BP 158/85 04/29/19 06:00 Pulse Ox 98 04/29/19 06:00 Intake & Output 04/28/19 04/29/19 04/29/19 18:59 06:59 18:59 Intake Total 890 320 Output Total 1 Balance 890 -1 320 Weight 63.503 kg Intake: Intake, IV Titration 650 Amount Sodium Chloride 0.9% 1, 400 000 ml @ 100 mls/hr IV . Q10H ANDREAS Rx#:[id number] methylPREDNISolone SOD 250 SUCC 1,000 mg In Sodium Chloride 0.9% 250 ml @ 250 mls/hr IVPB ONCE STA Rx#:[id number] Oral 240 320 Output: Urine 1 Other: Voiding Method Toilet Toilet # Voids 1 2 - Constitutional General appearance: Present: cooperative, obese - EENT Eyes: Present: EOMI, PERRLA, dentition normal ENT: Present: NA/AT, normal oropharynx - Neck Neck: Present: normal ROM - Respiratory Respiratory: bilateral: CTA, diminished, negative: dullness, rales, rhonchi - Cardiovascular Rhythm: regular Heart sounds: normal: S1, S2 Abnormal Heart Sounds: Absent: systolic murmur, diastolic murmur, rub, S3 Gallop, S4 Gallop, click, other - Gastrointestinal General gastrointestinal: Present: normal bowel sounds, soft - Integumentary Integumentary: Present: decreased turgor, normal - Neurologic Neurologic: Present: CNII-XII intact - Musculoskeletal Musculoskeletal: Present: gait normal, generalized weakness, strength equal bilaterally - Psychiatric Psychiatric: Present: A&O x's 3, appropriate affect, intact judgment & insight - Labs CBC & Chem 7: 04/28/19 07:05 04/28/19 07:05 Labs: Abnormal Lab Results - Last 24 Hours (Table) 04/28/19 04/28/19 04/28/19 Range/Units 11:41 17:09 21:13 POC Glucose (mg/dL) 124 H 165 H 159 H (75-99) mg/dL 04/29/19 Range/Units 07:18 POC Glucose (mg/dL) 104 H (75-99) mg/dL Assessment and Plan Plan: 1 Acute exacerbation Relapsing remitting multiple sclerosis . Solu-Medrol 1 g every 24 hours Continue baclofen, monitor the patient very closely x 5 days. Consult with neurology sliding scale coverage, expected 5th day dosage on 05/02/19 2. Recurrent falls, dysphagia, increasing stuttering, patient will be seen by s letty hyde, might need swallow eval, loss perioperative events, patient to continue on PT OT 3. Severe DJD bilateral knees, moderate arthritis in shoulders and hips, patient has chronic pain meds from a pain specialist 4. Chronic pain and occipital neuralgia under the care of Dr. Chanel. Co ntinue gabapentin 1200mg 3 times daily home supply as she has difficulty in swallowing the capsules, Percocet one 3 times daily as needed, Fioricet as needed. add lidocaine or volaten for topical analgeics 5. Hypertension and hypertensive cardiovascular disease. Continue verapamil 120 mg orally once every day. 6. Obesity with possible obstructive sleep apnea and obesity hypoventilation syndrome. Recommend outpatient sleep study 7. Mild intermittent asthma and COPD. Continue nebulized treatment 4 times every day. Support with oxygen as needed. 8. Fibromyalgia. Continue gabapentin 1200 mg orally 3 times every day. 8. ALLERGIC rhinitis, stable. 9. Recurrent depression. Continue Paxil 40 mg daily. 10. Chronic tobacco use and dependence. Smoking cessation and counseling an increased risk of CAD, CVA, and malignancy. Continue nicotine patch 21 mg once every day. 11. Mild cognitive impairment. Continue patient on Namenda 10 mg orally twice every day. 13. Restless leg syndrome. Continue Requip 0.25 mg 2 times daily 14. DVT prophylaxis. Lovenox 40 mg subcutaneously every 24 hours , bilateral knee-high MAYUR hose. 15. GI prophylaxis. Continue with Protonix 40 mg orally twice every day. 16. Thrush. Continue nystatin swish and swallow 5 mL orally 4 times every day. check aic
[2019-04-29 17:11] LABS: Glucose,Whole Blood 172 mg/dL (75-99)
[2019-04-29] MEDS: oxyCODONE-APAP 10-325MG 1 EACH TAB PO PRN ×2 (17:22→21:38)
[2019-04-29] MEDS: LIDOCAINE 4% CREAM 5 GM TUBE TOPICAL SCH ×2 (17:40→21:38)
[2019-04-29] MEDS: busPIRone HCl 10 MG TAB PO SCH ×2 (17:40→21:38)
[2019-04-29] MEDS: PANTOPRAZOLE 40 MG TABLET PO SCH (17:40)
--- NOTE | 2019-04-29 19:14 | P.PN ---
Subjective Progress Note Date: 04/29/19 Patient offers no new complaints. She feels her speech has improved. Complains of some gastric upset. Patient states that whenever she comes for MS exacerbation, and she is his high-dose corticosteroids, patient develops gastric upset. She takes Protonix daily, but when she is in the hospital, she also starts Pepcid, which helps. She is requesting to start Pepcid. She has been started on oral nystatin for thrush. Objective - Vital Signs Vital signs: Vital Signs Temp 98.2 F 04/29/19 12:39 Pulse 80 04/29/19 15:27 Resp 16 04/29/19 16:00 BP 133/86 04/29/19 12:39 Pulse Ox 99 04/29/19 15:16 Intake & Output 04/29/19 04/29/19 04/30/19 06:59 18:59 06:59 Intake Total 320 Output Total 1 Balance -1 320 Intake: Oral 320 Output: Urine 1 Other: Voiding Method Toilet Toilet # Voids 2 2 - Exam Patient's mental status is normal. She is less stuttering. Speech otherwise is normal. No aphasia. Cranial nerves are normal. Muscle strength appears normal except right psych specialist, which is weak about 4+. Reflexes are symmetric 2+ and plantars downgoing. No clonus. - Labs CBC & Chem 7: 04/28/19 07:05 04/28/19 07:05 Labs: Abnormal Lab Results - Last 24 Hours (Table) 04/28/19 04/29/19 04/29/19 Range/Units 21:13 07:18 12:23 POC Glucose (mg/dL) 159 H 104 H 101 H (75-99) mg/dL 04/29/19 Range/Units 17:05 POC Glucose (mg/dL) 172 H (75-99) mg/dL Assessment and Plan Assessment: * Relapsing remitting MS with possible exacerbation with frequent falls, increased stuttering speech. * Occipital neuralgia * Oral thrush. * Folate deficiency * Vitamin B6 deficiency * Vitamin D deficiency. * Restless leg syndrome * Obesity * Tobacco user. Plan: * Patient has received Solu-Medrol 1 g IV PB daily at 9 AM. Patient will receive Solu-Medrol 1 g IVPB daily for 3-5 days. After completing IV Solu- Medrol, would not recommend oral tapering dose of steroids. This is because o f potential side effects with increased fluid retention, weight gain, gastric upset and potential worsening of thrush. Continue nystatin. * Continue vitamin B6 and folate replacement. * Neurology coverage not available on the weekend.
[2019-04-29 20:39] LABS: Glucose,Whole Blood 260 mg/dL (75-99)
[2019-04-29] MEDS: FAMOTIDINE 20 MG TAB PO SCH (21:37)
[2019-04-29] MEDS: MELATONIN 3 MG TABLET PO SCH (21:37)
[2019-04-29] MEDS: ENOXAPARIN 40 MG/0.4 ML SYRINGE SQ SCH (21:37)
[2019-04-30] MEDS: SODIUM CHLORIDE 0.9% 1,000 ML IV SCH ×3 (02:00→21:11)
[2019-04-30] MEDS: methylPREDNISolone SOD SUCC 1,000 MG in SODIUM CHLORIDE 0.9% 250 ML IVPB SCH (06:34)
[2019-04-30 07:19] LABS: Glucose,Whole Blood 111 mg/dL (75-99)
[2019-04-30] MEDS: INSULIN ASPART (NovoLOG) 100 UNIT/ML VIAL SQ SCH ×4 (07:35→21:04)
[2019-04-30] MEDS: IPRATROPIUM-ALBUTEROL 3 ML NEB INHALATION SCH ×4 (07:35→20:17)
[2019-04-30] MEDS: SYMBICORT 160-4.5 MCG INHALER INHALATION SCH ×2 (07:35→20:17)
[2019-04-30] MEDS: NICOTINE 21MG/24HR PATCH TRANSDERM SCH ×2 (07:55→12:25)
[2019-04-30] MEDS: GABAPENTIN 600 MG PO SCH ×3 (07:55→21:33)
[2019-04-30] MEDS: ENOXAPARIN 40 MG/0.4 ML SYRINGE SQ SCH ×2 (07:55→21:04)
[2019-04-30] MEDS: LORazepam 1 MG TAB PO PRN ×3 (07:56→21:05)
[2019-04-30] MEDS: BUTALB/APAP/CAFF 50-325-40MG TAB PO PRN ×2 (07:56→16:28)
[2019-04-30] MEDS: oxyCODONE-APAP 10-325MG 1 EACH TAB PO PRN ×3 (07:56→21:05)
[2019-04-30] MEDS: PARoxetine 20 MG TAB PO SCH (07:58)
[2019-04-30] MEDS: busPIRone HCl 10 MG TAB PO SCH ×3 (07:58→21:07)
[2019-04-30] MEDS: MONTELUKAST 10 MG TAB PO SCH (07:58)
[2019-04-30] MEDS: MULTIVITAMINS, THERA 1 EACH TAB PO SCH (07:59)
[2019-04-30] MEDS: CHOLECALCIFEROL 1,000 UNIT TAB PO SCH (07:59)
[2019-04-30] MEDS: FOLIC ACID 1 MG TAB PO SCH (07:59)
[2019-04-30] MEDS: PANTOPRAZOLE 40 MG TABLET PO SCH ×2 (07:59→16:28)
[2019-04-30] MEDS: ASPIRIN 81 MG PO SCH (07:59)
[2019-04-30] MEDS: VERAPAMIL SR 120 MG TABLET.ER PO SCH (07:59)
[2019-04-30] MEDS: METHOCARBAMOL 750 MG TAB PO SCH ×3 (07:59→21:07)
[2019-04-30] MEDS: FAMOTIDINE 20 MG TAB PO SCH ×2 (07:59→21:05)
[2019-04-30] MEDS: MEMANTINE 10 MG TAB PO SCH ×2 (08:00→21:33)
[2019-04-30] MEDS: HYDROCHLOROTHIAZIDE 25 MG TAB PO SCH (08:00)
[2019-04-30] MEDS: PYRIDOXINE 50 MG TAB PO SCH (08:02)
[2019-04-30] MEDS: LIDOCAINE 4% CREAM 5 GM TUBE TOPICAL SCH ×3 (08:36→21:34)
[2019-04-30] MEDS: NYSTATIN 100,000 UNIT/ML SUSP 500,000 UNIT/5 ML CUP PO PRN ×2 (08:36→21:06)
[2019-04-30 11:44] LABS: Glucose,Whole Blood 132 mg/dL (75-99)
[2019-04-30] MEDS ORDERED: NICOTINE 21MG/24HR PATCH TRANSDERM STA (12:18)
--- NOTE | 2019-04-30 14:54 | P.PN ---
Subjective Progress Note Date: 04/30/19 Chief Complaint: Weakness, falls, exacerbation of MS This is a 53-year-old female one of Dr. Tabares and Dr. Chanel with a previous medical history significant for relapsing remitting multiple sclerosis, hypertension and hypertensive cardiovascular disease with left ventricular hyp ertrophy, history of GERD, multiple sclerosis, COPD, asthma, history of osteoporosis, uterine cancer status post surgery, patient was recently hospitalized at [facility] in 11/28/2018 for acute exacerbation of MS she was placed on IV Solu-Medrol at that time followed by Dr. Chanel neurol ogist. She was scheduled to have IV Solu-Medrol 1 g April 26, however Dr. Chanel's office did not send over the prescription to the hospital, patient was crying at that time as she doesn't want to be admitted, she has 3 falls last week, all with upper extremity weakness mainly in the right upper exam today, and left lower extremity weakness, also with eye pain, occipital headache, chest and her blood 04/06/[address] Chanel, she received her last MS infusion, 04/11/2019 which is every six-month schedule. Patient denies any fever no chills, has increasing weakness, increasing status post stuttering, has difficulty in ambulating, was subsequently admitted the hospital secondary to MS exacerbation, she also has a benign aphasia, dysphagia, oral shai bilateral knee pain In the emergency room, sugars were 101, AST ALT slightly elevated alkaline [place] normal, albumin normal 4.5, creatinine 0.55, WBC count 12.6, x-rays of the knee shows tricompartmental arthritis, moderate to severe medial compartment, chronic quadriceps tendinopathy, loose body within the joint shoulder x-ray, shows moderate before meals joint OA, mild DJD clear glenohumeral joint hip x-ray, some limitation visualization, nocturnal hip OA, no fractures or displacement seen CAT scan of the brain which and cervical spine, shows no acute fracture dislocation, there is degenerative disc, no intracranial hemorrhage mass effect no midline shift. Neurology was consulted during this admission, with 1 g Solu-Medrol every 24 hours 04/29, ptient with multiple complaints today, has headache left post occiput whi ch is chronic,, has increase stuttering and edgy, has been more hyper since steroids, has no nausea but has dyspepsia, on omeprzole bid, wants additional pepcid, undergoing therpies today but is distracted easily. will add buspar, pepcid, pos increaseativan to 1 mg, but caution on sedation, add topical volaren or lidocaine for occipital neuralgia, already had vikram from dr chanel as OP 04/06/1904/30: Patient complains of skin dryness today, no falls, patient has cough productive of yellowish sputum, sinus stuffiness without any purulence through sinuses, oral candidiasis that any better, dysphagia remains the same, in the past Mycelex was not working for the oral shai, we are going to start 10 day regimen of Diflucan, check chest x-ray today, patient is still completing IV steroids, until May 02 as scheduled thereafter no oral prednisone tapering dose per recommendation from neurology Review of Systems Constitutional: Reports as per HPI, Reports chills, Reports fatigue, Reports weakness, Denies anorexia, Denies chronic headaches, Denies chronic pain, Denies daytime sleepiness, Denies fever, Denies lethargy, Denies malaise, Denies night sweats, Denies poor appetite, Denies sweats, Denies weight gain, Denies weight loss Ears, nose, mouth and throat: Reports as per HPI, Reports mouth pain Breasts: Denies as per HPI, Denies breast feeding Cardiovascular: Reports as per HPI Respiratory: Reports as per HPI, Denies congestion, Denies cough, Denies cough with sputum, Denies dyspnea, Denies excessive sputum, Denies hemoptysis, Denies home oxygen, Denies pain, Denies pain on inspiration, Denies pleurisy, Denies respiratory infections, Denies sleep apnea, Denies snoring, Denies wheezing Gastrointestinal: Reports as per HPI, Denies abdominal pain, Denies belching, Denies bloating, Denies BRBPR, Denies change in bowel habits, Denies coffee ground emesis, Denies constipation, Denies diarrhea, Denies dyspepsia, Denies early satiety, Denies excessive gas, Denies heartburn, Denies hematemesis, Denies hematochezia, Denies indigestion, Denies jaundice, Denies lactose intolerance, Denies loss of appetite, Denies melena, Denies nausea, Denies vomiting Genitourinary: Reports as per HPI Menstruation: Reports as per HPI Musculoskeletal: Reports as per HPI, Reports frequent falls, Reports gait dysfunction, Reports limitation of motion, Denies arm numbness/tingling, Denies atrophy, Denies fractures, Denies hot joints, Denies leg numbness/tingling, Denies loss of height, Denies low back pain, Denies morning stiffness, Denies muscle cramps, Denies muscle weakness, Denies myalgias, Denies neck pain, Denies neck stiffness, Denies prior amputations, Denies redness of joints, Denies shooting arm pain, Denies shooting leg pain Integumentary: Reports as per HPI, Denies acne, Denies boils, Denies brittle da ls, Denies change in hair/nails, Denies color changes, Denies darkening of skin, Denies depigmentation, Denies dryness, Denies foot/leg ulcers, Denies growths, Denies hirsutism, Denies lesions, Denies onychomycosis, Denies pruritus, Denies rash, Denies sores, Denies striae, Denies unusual bruising, Denies wounds Neurological: Reports as per HPI, Reports double vision, Reports gait dysfunction, Reports weakness, Denies aphasia, Denies ataxia, Denies balance difficulties, Denies burning pain, Denies change in mentation, Denies change in smell/taste, Denies change in speech, Denies confusion, Denies convulsions, Denies head injury, Denies headaches, Denies hearing difficulties, Denies lack of coordination, Denies loss of vision, Denies memory loss, Denies migraines, D enies motor disturbance, Denies numbness, Denies paralysis, Denies paresthesias, Denies seizures, Denies sensory deficit, Denies spasticity, Denies syncope, Denies tic, Denies tingling, Denies transient paralysis, Denies tremors, Denies vertigo, Denies visual changes Psychiatric: Reports as per HPI, Reports sleep disturbances, Denies anhedonia, Denies anxiety, Denies anxiety attacks, Denies change in appetite, Denies change in libido, Denies change in sleep habits, Denies confusion, Denies depression, Denies difficulty concentrating, Denies disorientation, Denies hallucinations, Denies hopelessness, Denies hypersomnia, Denies insomnia, Denies irritability, Denies memory loss, Denies mood swings, Denies paranoia, Denies sadness/tearfulness, Denies suicidal ideation Endocrine: Reports as per HPI Hematologic/Lymphatic: Reports as per HPI, Denies easy bleeding, Denies easy bruising, Denies lymphadenopathy, Denies lymphedema, Denies thrombophilia Allergic/Immunologic: Reports as per HPI, Denies allergic rhinitis, Denies anaphylaxis, Denies angioedema, Denies gluten intolerance, Denies persistent infections, Denies seasonal allergies, Denies urticaria, Denies wheezing Objective - Vital Signs Vital signs: Vital Signs Temp 98.2 F 04/30/19 07:15 Pulse 72 04/30/19 07:56 Resp 16 04/30/19 08:41 BP 155/96 04/30/19 07:15 Pulse Ox 93 L 04/30/19 07:15 Intake & Output 04/29/19 04/30/19 04/30/19 18:59 06:59 18:59 Intake Total 320 700 Balance 320 700 Intake: Oral 320 700 Other: Voiding Method Toilet Toilet Toilet # Voids 2 2 1 - Constitutional General appearance: Present: cooperative, no acute distress, obese - EENT Eyes: Present: anicteric sclerae, EOMI, PERRLA, normal appearance ENT: Present: NA/AT, normal oropharynx - Neck Neck: Present: normal ROM - Respiratory Respiratory: bilateral: CTA, negative: diminished, dullness, rales - Cardiovascular Rhythm: regular Heart sounds: normal: S1, S2 Abnormal Heart Sounds: Absent: systolic murmur, diastolic murmur, rub, S3 Gallop, S4 Gallop, click, other - Gastrointestinal General gastrointestinal: Present: normal bowel sounds, soft - Integumentary Integumentary: Present: decreased turgor, normal - Musculoskeletal Musculoskeletal: Present: gait normal, strength equal bilaterally - Psychiatric Psychiatric: Present: A&O x's 3, appropriate affect - Labs CBC & Chem 7: 04/28/19 07:05 04/28/19 07:05 Labs: Abnormal Lab Results - Last 24 Hours (Table) 04/29/19 04/29/19 04/29/19 Range/Units 12:23 17:05 20:23 POC Glucose (mg/dL) 101 H 172 H 260 H (75-99) mg/dL 04/30/19 Range/Units 07:11 POC Glucose (mg/dL) 111 H (75-99) mg/dL Assessment and Plan Plan: 1 Acute exacerbation Relapsing remitting multiple sclerosis . Solu-Medrol 1 g every 24 hours Continue baclofen, monitor the patient very closely x 5 days. Consult with neurology sliding scale coverage, expected 5th day dosage on 05/02/19, no oral taper prednisone on discharge per recommendation from neurology 2. Recurrent falls, dysphagia, increasing stuttering, patient will be seen by speech therapy, might need swallow eval, loss perioperative events, patient to continue on PT OT 3. Severe DJD bilateral knees, moderate arthritis in shoulders and hips, patient has chronic pain meds from a pain specialist 4. Chronic pain and occipital neuralgia under the care of Dr. Chanel. Continue gabapentin 1200mg 3 times daily home supply as she has difficulty in swallowing the capsules, Percocet one 3 times daily as needed, Fioricet as needed. add lidocaine or volaten for topical analgeics 5. Hypertension and hypertensive cardiovascular disease. Continue verapamil 120 mg orally once every day. 6. Obesity with possible obstructive sleep apnea and obesity hypoventilation syndrome. Recommend outpatient sleep study 7. Mild intermittent asthma and COPD. Continue nebulized treatment 4 times every day. Support with oxygen as needed. 8. Fibromyalgia. Continue gabapentin 1200 mg orally 3 times every day. 8. Acute Purulent bronchitis with nonpurulent ALLERGIC rhinitis, stable. , Chest x-ray procalcitonin no oral antibiotic started yet 9. Recurrent depression. Continue Paxil 40 mg daily. 10. Chronic tobacco use and dependence. Smoking cessation and counseling an increased risk of CAD, CVA, and malignancy. Continue nicotine patch 21 mg once every day. 11. Mild cognitive impairment. Continue patient on Namenda 10 mg orally twice every day. 13. Restless leg syndrome. Continue Requip 0.25 mg 2 times daily 14. DVT prophylaxis. Lovenox 40 mg subcutaneously every 24 hours , bilateral knee-high MAYUR hose. 15. GI prophylaxis. Continue with Protonix 40 mg orally twice every day. 16. Thrush. Continue nystatin swish and swallow 5 mL orally 4 times every day. check aic, has failed Mycelex, we'll going to add fluconazole, as patient is still symptomatic
--- NOTE | 2019-04-30 15:44 | XR ---
EXAMINATION TYPE: XR chest 2V DATE OF EXAM: 04/30/2019 COMPARISON: 04/28/2019 HISTORY: Pain TECHNIQUE: 2 views FINDINGS: There is no heart failure nor confluent pneumonic infiltrate. Costophrenic angles are clear . Bony thorax is intact. IMPRESSION: No active cardiopulmonary disease. No change.
[2019-04-30] MEDS: FLUCONAZOLE 100 MG TAB PO SCH (16:28)
[2019-04-30 17:24] LABS: Glucose,Whole Blood 142 mg/dL (75-99)
[2019-04-30 20:26] LABS: Glucose,Whole Blood 221 mg/dL (75-99)
[2019-04-30] MEDS: MELATONIN 3 MG TABLET PO SCH (21:33)
[2019-05-01] MEDS: NYSTATIN 100,000 UNIT/ML SUSP 500,000 UNIT/5 ML CUP PO PRN ×2 (05:34→14:42)
[2019-05-01] MEDS: methylPREDNISolone SOD SUCC 1,000 MG in SODIUM CHLORIDE 0.9% 250 ML IVPB SCH (06:22)
[2019-05-01] MEDS: SODIUM CHLORIDE 0.9% 1,000 ML IV SCH ×2 (06:22→17:04)
[2019-05-01 07:06] LABS: Glucose,Whole Blood 101 mg/dL (75-99)
[2019-05-01] MEDS: NICOTINE 21MG/24HR PATCH TRANSDERM SCH (07:09)
[2019-05-01] MEDS: ENOXAPARIN 40 MG/0.4 ML SYRINGE SQ SCH ×2 (07:09→21:28)
[2019-05-01] MEDS: LIDOCAINE 4% CREAM 5 GM TUBE TOPICAL SCH ×3 (07:09→21:42)
[2019-05-01] MEDS: METHOCARBAMOL 750 MG TAB PO SCH ×3 (07:12→21:42)
[2019-05-01] MEDS: VERAPAMIL SR 120 MG TABLET.ER PO SCH (07:12)
[2019-05-01] MEDS: oxyCODONE-APAP 10-325MG 1 EACH TAB PO PRN ×2 (07:13→17:01)
[2019-05-01] MEDS: PYRIDOXINE 50 MG TAB PO SCH (07:13)
[2019-05-01] MEDS: busPIRone HCl 10 MG TAB PO SCH ×3 (07:14→21:28)
[2019-05-01] MEDS: FLUCONAZOLE 100 MG TAB PO SCH (07:14)
[2019-05-01] MEDS: LORazepam 1 MG TAB PO PRN ×2 (07:14→17:00)
[2019-05-01] MEDS: MONTELUKAST 10 MG TAB PO SCH (07:14)
[2019-05-01] MEDS: HYDROCHLOROTHIAZIDE 25 MG TAB PO SCH (07:14)
[2019-05-01] MEDS: FAMOTIDINE 20 MG TAB PO SCH ×2 (07:14→21:28)
[2019-05-01] MEDS: PARoxetine 20 MG TAB PO SCH (07:14)
[2019-05-01] MEDS: GABAPENTIN 600 MG PO SCH ×3 (07:15→21:42)
[2019-05-01] MEDS: BUTALB/APAP/CAFF 50-325-40MG TAB PO PRN ×2 (07:15→17:00)
[2019-05-01] MEDS: PANTOPRAZOLE 40 MG TABLET PO SCH ×2 (07:15→17:00)
[2019-05-01] MEDS: MEMANTINE 10 MG TAB PO SCH ×2 (07:15→21:28)
[2019-05-01] MEDS: FOLIC ACID 1 MG TAB PO SCH (07:15)
[2019-05-01] MEDS: ASPIRIN 81 MG PO SCH (07:15)
[2019-05-01] MEDS: MULTIVITAMINS, THERA 1 EACH TAB PO SCH (07:15)
[2019-05-01] MEDS: CHOLECALCIFEROL 1,000 UNIT TAB PO SCH (07:15)
[2019-05-01] MEDS: INSULIN ASPART (NovoLOG) 100 UNIT/ML VIAL SQ SCH ×4 (07:32→21:28)
[2019-05-01 09:14] LABS: Basophils % (A) 0 %; Eosinophils % (A) 0 %; HCT 46.7 % (34.0-46.0); HGB 14.8 gm/dL (11.4-16.0); Lymphocytes % (A) 13 %; MCH 31.8 pg (25.0-35.0); MCHC 31.7 g/dL (31.0-37.0); MCV 100.3 fL (80.0-100.0); Mean Platelet Volume 9.1; Monocytes # (A) 0.6 k/uL (0-1.0); Monocytes % (A) 4 %; Neutrophils # (A) 12.8 k/uL (1.3-7.7); Neutrophils % (A) 82 %; Platelet Count 269 k/uL (150-450); RBC 4.66 m/uL (3.80-5.40); RDW 12.7 % (11.5-15.5); WBC 15.5 k/uL (3.8-10.6)
[2019-05-01 09:18] LABS: African American GFR (CKD) >90 (>60 ml/min/1.73 sqM); Anion Gap 10 mmol/L; Blood Urea Nitrogen 23 mg/dL (7-17); Calcium 9.6 mg/dL (8.4-10.2); Carbon Dioxide 33 mmol/L (22-30); Chloride 98 mmol/L (98-107); Glucose 100 mg/dL (74-99); Non-African American GFR(CKD) >90 (>60 ml/min/1.73 sqM); Potassium 3.8 mmol/L (3.5-5.1); Sodium 141 mmol/L (137-145)
[2019-05-01] MEDS: SYMBICORT 160-4.5 MCG INHALER INHALATION SCH ×2 (10:00→21:57)
[2019-05-01] MEDS: IPRATROPIUM-ALBUTEROL 3 ML NEB INHALATION SCH ×4 (10:00→21:57)
[2019-05-01 12:06] LABS: Glucose,Whole Blood 158 mg/dL (75-99)
[2019-05-01] MEDS ORDERED: AZITHROMYCIN 500 MG TAB PO STA (13:49)
[2019-05-01 17:14] LABS: Glucose,Whole Blood 141 mg/dL (75-99)
--- NOTE | 2019-05-01 18:09 | P.PN ---
Subjective Progress Note Date: 05/01/19 Chief Complaint: Weakness, falls, exacerbation of MS This is a 53-year-old female one of Dr. Tabares and Dr. Chanel with a previous medical history significant for relapsing remitting multiple sclerosis, hypertension and hypertensive cardiovascular disease with left ventricular hyp ertrophy, history of GERD, multiple sclerosis, COPD, asthma, history of osteoporosis, uterine cancer status post surgery, patient was recently hospitalized at [facility] in 11/28/2018 for acute exacerbation of MS she was placed on IV Solu-Medrol at that time followed by Dr. Chanel neurol ogist. She was scheduled to have IV Solu-Medrol 1 g April 26, however Dr. Chanel's office did not send over the prescription to the hospital, patient was crying at that time as she doesn't want to be admitted, she has 3 falls last week, all with upper extremity weakness mainly in the right upper exam today, and left lower extremity weakness, also with eye pain, occipital headache, chest and her blood 04/06/[address] Chanel, she received her last MS infusion, 04/11/2019 which is every six-month schedule. Patient denies any fever no chills, has increasing weakness, increasing status post stuttering, has difficulty in ambulating, was subsequently admitted the hospital secondary to MS exacerbation, she also has a benign aphasia, dysphagia, oral shai bilateral knee pain In the emergency room, sugars were 101, AST ALT slightly elevated alkaline [place] normal, albumin normal 4.5, creatinine 0.55, WBC count 12.6, x-rays of the knee shows tricompartmental arthritis, moderate to severe medial compartment, chronic quadriceps tendinopathy, loose body within the joint shoulder x-ray, shows moderate before meals joint OA, mild DJD clear glenohumeral joint hip x-ray, some limitation visualization, nocturnal hip OA, no fractures or displacement seen CAT scan of the brain which and cervical spine, shows no acute fracture dislocation, there is degenerative disc, no intracranial hemorrhage mass effect no midline shift. Neurology was consulted during this admission, with 1 g Solu-Medrol every 24 hours 04/29, ptient with multiple complaints today, has headache left post occiput whi ch is chronic,, has increase stuttering and edgy, has been more hyper since steroids, has no nausea but has dyspepsia, on omeprzole bid, wants additional pepcid, undergoing therpies today but is distracted easily. will add buspar, pepcid, pos increaseativan to 1 mg, but caution on sedation, add topical volaren or lidocaine for occipital neuralgia, already had vikram from dr chanel as OP 04/06/1904/30: Patient complains of skin dryness today, no falls, patient has cough productive of yellowish sputum, sinus stuffiness without any purulence through sinuses, oral candidiasis that any better, dysphagia remains the same, in the past Mycelex was not working for the oral shai, we are going to start 10 day regimen of Diflucan, check chest x-ray today, patient is still completing IV steroids, until May 02 as scheduled thereafter no oral prednisone tapering dose per recommendation from neurology 05/01: Stuttering is better, patient has chest congestion which is worse with purulence, pro-calcitonin is currently not back, chest x-ray felt to reveal any pneumonic infiltrate, oral thrush is better, weakness upper extremities are better, went dissipating discharge in a.m. after completion of the Solu-Medrol. No plans for discharging on BuSpar, has Ativan that can be used for home dose. Zithromax started for purulent tracheal bronchitis, Review of Systems Constitutional: Reports as per HPI, Reports chills, Reports fatigue, Reports weakness, Denies anorexia, Denies chronic headaches, Denies chronic pain, Denies daytime sleepiness, Denies fever, Denies lethargy, Denies malaise, Denies night sweats, Denies poor appetite, Denies sweats, Denies weight gain, Denies weight loss Ears, nose, mouth and throat: Reports as per HPI, Reports mouth pain Breasts: Denies as per HPI, Denies breast feeding Cardiovascular: Reports as per HPI Respiratory: Reports as per HPI, Denies congestion, Denies cough, Denies cough with sputum, Denies dyspnea, Denies excessive sputum, Denies hemoptysis, Denies home oxygen, Denies pain, Denies pain on inspiration, Denies pleurisy, Denies respiratory infections, Denies sleep apnea, Denies snoring, Denies wheezing Gastrointestinal: Reports as per HPI, Denies abdominal pain, Denies belching, Denies bloating, Denies BRBPR, Denies change in bowel habits, Denies coffee ground emesis, Denies constipation, Denies diarrhea, Denies dyspepsia, Denies early satiety, Denies excessive gas, Denies heartburn, Denies hematemesis, Denies hematochezia, Denies indigestion, Denies jaundice, Denies lactose intolerance, Denies loss of appetite, Denies melena, Denies nausea, Denies vomiting Genitourinary: Reports as per HPI Menstruation: Reports as per HPI Musculoskeletal: Reports as per HPI, Reports frequent falls, Reports gait dysfunction, Reports limitation of motion, Denies arm numbness/tingling, Denies atrophy, Denies fractures, Denies hot joints, Denies leg numbness/tingling, Denies loss of height, Denies low back pain, Denies morning stiffness, Denies muscle cramps, Denies muscle weakness, Denies myalgias, Denies neck pain, Denies neck stiffness, Denies prior amputations, Denies redness of joints, Denies s hooting arm pain, Denies shooting leg pain Integumentary: Reports as per HPI, Denies acne, Denies boils, Denies brittle nails, Denies change in hair/nails, Denies color changes, Denies darkening of skin, Denies depigmentation, Denies dryness, Denies foot/leg ulcers, Denies g rowths, Denies hirsutism, Denies lesions, Denies onychomycosis, Denies pruritus, Denies rash, Denies sores, Denies striae, Denies unusual bruising, Denies wounds Neurological: Reports as per HPI, Reports double vision, Reports gait dysfunction, Reports weakness, Denies aphasia, Denies ataxia, Denies balance difficulties, Denies burning pain, Denies change in mentation, Denies change in smell/taste, Denies change in speech, Denies confusion, Denies convulsions, Denies head injury, Denies headaches, Denies hearing difficulties, Denies lack of coordination, Denies loss of vision, Denies memory loss, Denies migraines, Denies motor disturbance, Denies numbness, Denies paralysis, Denies paresthesias, Denies seizures, Denies sensory deficit, Denies spasticity, Denies syncope, Denies tic, Denies tingling, Denies transient paralysis, Denies tremors, Denies vertigo, Denies visual changes Psychiatric: Reports as per HPI, Reports sleep disturbances, Denies anhedonia, Denies anxiety, Denies anxiety attacks, Denies change in appetite, Denies change in libido, Denies change in sleep habits, Denies confusion, Denies depression, Denies difficulty concentrating, Denies disorientation, Denies hallucinations, Denies hopelessness, Denies hypersomnia, Denies insomnia, Denies irritability, Denies memory loss, Denies mood swings, Denies paranoia, Denies sadness/tearfulness, Denies suicidal ideation Endocrine: Reports as per HPI Hematologic/Lymphatic: Reports as per HPI, Denies easy bleeding, Denies easy bruising, Denies lymphadenopathy, Denies lymphedema, Denies thrombophilia Allergic/Immunologic: Reports as per HPI, Denies allergic rhinitis, Denies anaphylaxis, Denies angioedema, Denies gluten intolerance, Denies persistent infections, Denies seasonal allergies, Denies urticaria, Denies wheezing Objective - Vital Signs Vital signs: Vital Signs Temp 97.8 F 05/01/19 15:00 Pulse 74 05/01/19 17:22 Resp 16 05/01/19 15:00 BP 139/86 05/01/19 15:00 Pulse Ox 92 L 05/01/19 15:00 Intake & Output 04/30/19 05/01/19 05/01/19 18:59 06:59 18:59 Intake Total 550 Balance 550 Intake: Oral 550 Other: Voiding Method Toilet Toilet # Voids 3 2 2 - Constitutional General appearance: Present: cooperative, no acute distress, obese - EENT Eyes: Present: EOMI, PERRLA, dentition normal, normal appearance ENT: Present: hearing grossly normal, NA/AT, normal oropharynx, thrush (Resolving) - Neck Neck: Present: normal ROM Thyroid: bilateral: normal size - Respiratory Respiratory: bilateral: CTA, negative: dullness, rales, rhonchi, prolonged expiration, prolonged inspiration - Cardiovascular Rhythm: regular Heart sounds: normal: S1, S2 Abnormal Heart Sounds: Absent: systolic murmur, diastolic murmur, rub, S3 Gallop, S4 Gallop, click, other - Gastrointestinal General gastrointestinal: Present: normal bowel sounds, soft - Integumentary Integumentary: Present: normal, normal turgor - Neurologic Neurologic: Present: CNII-XII intact - Musculoskeletal Musculoskeletal: Present: gait normal, strength equal bilaterally - Psychiatric Psychiatric: Present: A&O x's 3, appropriate affect, intact judgment & insight - Labs CBC & Chem 7: 05/01/19 08:01 05/01/19 08:01 Labs: Abnormal Lab Results - Last 24 Hours (Table) 04/30/19 05/01/19 05/01/19 Range/Units 20:16 06:57 08:01 WBC 15.5 H (3.8-10.6) k/uL Hct 46.7 H (34.0-46.0) % MCV 100.3 H (80.0-100.0) fL Neutrophils # 12.8 H (1.3-7.7) k/uL Carbon Dioxide (22-30) mmol/L BUN (7-17) mg/dL Glucose (74-99) mg/dL POC Glucose (mg/dL) 221 H 101 H (75-99) mg/dL 05/01/19 05/01/19 05/01/19 Range/Units 08:01 11:58 17:08 WBC (3.8-10.6) k/uL Hct (34.0-46.0) % MCV (80.0-100.0) fL Neutrophils # (1.3-7.7) k/uL Carbon Dioxide 33 H (22-30) mmol/L BUN 23 H (7-17) mg/dL Glucose 100 H (74-99) mg/dL POC Glucose (mg/dL) 158 H 141 H (75-99) mg/dL Assessment and Plan Plan: 1 Acute exacerbation Relapsing remitting multiple sclerosis . Solu-Medrol 1 g every 24 hours Continue baclofen, monitor the patient very closely x 5 days. Consult with neurology sliding scale coverage, expected 5th day dosage on 05/02/19, no oral taper prednisone on discharge per recommendation from neurology 2. Steroid-induced agitation, without psychosis, started on BuSpar while in the hospital, will not need to continue these post discharge, has Ativan that can be used at home per home dose 2. Recurrent falls, dysphagia, increasing stuttering, patient will be seen by speech therapy, might need swallow eval, loss perioperative events, patient to continue on PT OT 3. Severe DJD bilateral knees, moderate arthritis in shoulders and hips, patient has chronic pain meds from a pain specialist 4. Chronic pain and occipital neuralgia under the care of Dr. Chanel. Continue gabapentin 1200mg 3 times daily home supply as she has difficulty in swallowing the capsules, Percocet one 3 times daily as needed, Fioricet as needed. add lidocaine or volaten for topical analgeics 5. Hypertension and hypertensive cardiovascular disease. Continue verapamil 120 mg orally once every day. 6. Obesity with possible obstructive sleep apnea and obesity hypoventilation syndrome. Recommend outpatient sleep study 7. Mild intermittent asthma and COPD. Continue nebulized treatment 4 times e very day. Support with oxygen as needed. 8. Fibromyalgia. Continue gabapentin 1200 mg orally 3 times every day. 8. Acute Purulent bronchitis with nonpurulent ALLERGIC rhinitis, stable. , [place] st x-ray procalcitonin no oral antibiotic started yet 9. Recurrent depression. Continue Paxil 40 mg daily. 10. Chronic tobacco use and dependence. Smoking cessation and counseling an increased risk of CAD, CVA, and malignancy. Continue nicotine patch 21 mg once every day. 11. Mild cognitive impairment. Continue patient on Namenda 10 mg orally twice every day. 13. Restless leg syndrome. Continue Requip 0.25 mg 2 times daily 14. DVT prophylaxis. Lovenox 40 mg subcutaneously every 24 hours , bilateral knee-high MAYUR hose. 15. GI prophylaxis. Continue with Protonix 40 mg orally twice every day. 16. Thrush. Continue nystatin swish and swallow 5 mL orally 4 times every day. check aic, has failed Mycelex, added fluconazole, as patient is still symptomatic 17. Tracheobronchitis, with purulence, getting worse, pro-calcitonin is a available for review, Zithromax initiated
[2019-05-01 21:15] LABS: Glucose,Whole Blood 186 mg/dL (75-99)
[2019-05-01] MEDS: MELATONIN 3 MG TABLET PO SCH (21:27)
[2019-05-02] MEDS: oxyCODONE-APAP 10-325MG 1 EACH TAB PO PRN ×3 (00:03→16:23)
[2019-05-02] MEDS: LORazepam 1 MG TAB PO PRN ×3 (00:04→16:23)
[2019-05-02] MEDS: BUTALB/APAP/CAFF 50-325-40MG TAB PO PRN ×3 (00:04→16:23)
[2019-05-02] MEDS: NYSTATIN 100,000 UNIT/ML SUSP 500,000 UNIT/5 ML CUP PO PRN ×3 (01:47→16:18)
[2019-05-02] MEDS: SODIUM CHLORIDE 0.9% 1,000 ML IV SCH ×2 (03:11→12:08)
[2019-05-02 05:23] VITALS: RESP 16
[2019-05-02 07:12] LABS: Glucose,Whole Blood 98 mg/dL (75-99)
[2019-05-02] MEDS: IPRATROPIUM-ALBUTEROL 3 ML NEB INHALATION SCH ×4 (07:40→19:03)
[2019-05-02] MEDS: SYMBICORT 160-4.5 MCG INHALER INHALATION SCH ×2 (07:40→19:12)
[2019-05-02] MEDS: INSULIN ASPART (NovoLOG) 100 UNIT/ML VIAL SQ SCH ×3 (07:49→17:34)
[2019-05-02] MEDS: methylPREDNISolone SOD SUCC 1,000 MG in SODIUM CHLORIDE 0.9% 250 ML IVPB SCH (08:07)
[2019-05-02] MEDS: VERAPAMIL SR 120 MG TABLET.ER PO SCH (08:08)
[2019-05-02] MEDS: PYRIDOXINE 50 MG TAB PO SCH (08:08)
[2019-05-02] MEDS: ENOXAPARIN 40 MG/0.4 ML SYRINGE SQ SCH (08:08)
[2019-05-02] MEDS: ASPIRIN 81 MG PO SCH (08:08)
[2019-05-02] MEDS: METHOCARBAMOL 750 MG TAB PO SCH ×2 (08:08→16:18)
[2019-05-02] MEDS: FAMOTIDINE 20 MG TAB PO SCH (08:08)
[2019-05-02] MEDS: busPIRone HCl 10 MG TAB PO SCH ×2 (08:08→16:18)
[2019-05-02] MEDS: NICOTINE 21MG/24HR PATCH TRANSDERM SCH (08:08)
[2019-05-02] MEDS: MULTIVITAMINS, THERA 1 EACH TAB PO SCH (08:08)
[2019-05-02] MEDS: CHOLECALCIFEROL 1,000 UNIT TAB PO SCH (08:08)
[2019-05-02] MEDS: PANTOPRAZOLE 40 MG TABLET PO SCH ×2 (08:09→16:18)
[2019-05-02] MEDS: PARoxetine 20 MG TAB PO SCH (08:09)
[2019-05-02] MEDS: MONTELUKAST 10 MG TAB PO SCH (08:09)
[2019-05-02] MEDS: MEMANTINE 10 MG TAB PO SCH (08:09)
[2019-05-02] MEDS: FLUCONAZOLE 100 MG TAB PO SCH (08:09)
[2019-05-02] MEDS: LIDOCAINE 4% CREAM 5 GM TUBE TOPICAL SCH ×2 (08:10→16:26)
[2019-05-02] MEDS: FOLIC ACID 1 MG TAB PO SCH (08:10)
[2019-05-02] MEDS: HYDROCHLOROTHIAZIDE 25 MG TAB PO SCH (08:10)
[2019-05-02] MEDS ORDERED: AZITHROMYCIN 250 MG TAB PO SCH (09:00)
[2019-05-02] MEDS: GABAPENTIN 600 MG PO SCH ×2 (09:20→16:17)
[2019-05-02 12:03] LABS: Glucose,Whole Blood 126 mg/dL (75-99)
[2019-05-02 14:33] VITALS: BP 110/72; TEMP 97.5
--- NOTE | 2019-05-02 16:40 | P.DS ---
Providers Date of admission: 04/30/19 08:56 Attending physician: Zan Minor Consults: 04/28/19 09:47 Consult Physician Urgent Consulting Provider: Dhruv Mello Consult Reason/Comments: weakness Do you want consulting provider notified?: Yes Primary care physician: Kilo Tabares [facility] Course: This is a 53-year-old female one of Dr. Tabares and Dr. Chanel with a previous medical history significant for relapsing remitting multiple sclerosis, hypertension and hypertensive cardiovascular disease with left ventricular hypertrophy, history of GERD, multiple sclerosis, COPD, asthma, history of osteoporosis, uterine cancer status post surgery, patient was recently hospitalized at [facility] in 11/28/2018 for acute exacerbation of MS she was placed on IV Solu-Medrol at that time followed by Dr. Chanel neurologist. She was scheduled to have IV Solu-Medrol 1 g April 26, however Dr. Chanel's office did not send over the prescription to the hospital, patient was crying at that time as she doesn't want to be admitted, she has 3 falls last week, all with upper extremity weakness mainly in the right upper exam today, and left lower extremity weakness, also with eye pain, occipital headache, chest and her blood 04/06/[address] Chanel, she received her last MS infusion, 04/11/2019 which is every six-month schedule. Patient denies any fever no chills, has increasing weakness, increasing status post stuttering, has difficulty in ambulating, was subsequently admitted the hospital secondary to MS exacerbation, she also has a benign aphasia, dysphagia, oral shai bilateral knee pain In the emergency room, sugars were 101, AST ALT slightly elevated alkaline Erin normal, albumin normal 4.5, creatinine 0.55, WBC count 12.6, x-rays of the knee shows tricompartmental arthritis, moderate to severe medial compartment, chronic quadriceps tendinopathy, loose body within the joint shoulder x-ray, shows moderate before meals joint OA, mild DJD clear glenohumeral joint hip x-ray, some limitation visualization, nocturnal hip OA, no fractures or displacement seen CAT scan of the brain which and cervical spine, shows no acute fracture dislocation, there is degenerative disc, no intracranial hemorrhage mass effect no midline shift. Neurology was consulted during this admission, with 1 g Solu- Medrol every 24 hours 12/27, ptient with multiple complaints today, has headache left post occiput which is chronic,, has increase stuttering and edgy, has been more hyper since steroids, has no nausea but has dyspepsia, on omeprzole bid, wants additional pepcid, undergoing therpies today but is distracted easily. will add buspar, pepcid, pos increaseativan to 1 mg, but caution on sedation, add topical volaren or lidocaine for occipital neuralgia, already had vikram from dr chanel as OP 04/06/1904/30: Patient complains of skin dryness today, no falls, patient has cough productive of yellowish sputum, sinus stuffiness without any purulence through sinuses, oral candidiasis that any better, dysphagia remains the same, in the past Mycelex was not working for the oral shai, we are going to start 10 day regimen of Diflucan, check chest x-ray today, patient is still completing IV steroids, until May 02 as scheduled thereafter no oral prednisone tapering dose per recommendation from neurology 05/01: Stuttering is better, patient has chest congestion which is worse with purulence, pro-calcitonin is currently not back, chest x-ray felt to reveal any pneumonic infiltrate, oral thrush is better, weakness upper extremities are better, went dissipating discharge in a.m. after completion of the Solu-Medrol. No plans for discharging on BuSpar, has Ativan that can be used for home dose. Zithromax started for purulent tracheal bronchitis, Patient continues to have stuttering but feels better. Patient will be continued on Zithromax for purulent tracheal bronchitis and fluconazole for oral candidiasis. Discharge diagnosis 1 Acute exacerbation Relapsing remitting multiple sclerosis . 2. Steroid-induced agitation, without psychosis, started on BuSpar 2. Recurrent falls, dysphagia, increasing stuttering 3. Severe DJD bilateral knees, moderate arthritis in shoulders and hips 4. Chronic pain and occipital neuralgia under the care of Dr. Chanel. 5. Hypertension and hypertensive cardiovascular disease. 6. Obesity with possible obstructive sleep apnea and obesity hypoventilation syndrome. 7. Mild intermittent asthma and COPD. 8. Fibromyalgia. 8. Acute Purulent bronchitis 9. Recurrent depression. 10. Chronic tobacco use and dependence. 11. Mild cognitive impairment. 13. Restless leg syndrome. 14. Thrush. Discharge home today Patient Condition at Discharge: Stable Plan - Discharge Summary Discharge Rx Participant: No New Discharge Prescriptions: New busPIRone HCl [Buspar] 10 mg PO TID #90 tab Fluconazole [Diflucan] 100 mg PO DAILY #7 tab Folic Acid 1 mg PO DAILY #30 tab Pyridoxine [Vitamin B-6] 50 mg PO DAILY #30 tab Azithromycin [Zithromax] 250 mg PO DAILY #3 tab guaiFENesin [Mucinex] 600 mg PO AC-BID #60 tab.er.12h Continue Albuterol Inhaler [Ventolin Hfa Inhaler] 2 puff INHALATION RT-Q6H PRN PRN Reason: Wheezing LORazepam [Ativan] 1 mg PO Q8H PRN PRN Reason: Anxiety Aspirin 81 mg PO DAILY Verapamil HCl 120 mg PO DAILY Gabapentin [Neurontin] 1,200 mg PO TID Butalb/APAP/Caff 50-325-40Mg [Fioricet 50-325-40] 1 tab PO Q8H oxyCODONE-APAP 10-325MG [Percocet 10-325 mg] 1 tab PO TID PRN PRN Reason: pain rOPINIRole HCL [Requip] 0.25 mg PO TID #90 tab Docusate [Colace] 100 mg PO DAILY PRN PRN Reason: Constipation Budesonide/Formoterol Fumarate [Symbicort 160-4.5 Mcg Inhaler] 2 puff INHALATION RT-BID Multivitamins, Thera [Multivitamin (formulary)] 1 tab PO DAILY Cholecalciferol [Vitamin D3 (25 Mcg = 1000 Iu)] 1,000 unit PO DAILY PARoxetine [Paxil] 40 mg PO DAILY tab Pantoprazole Sodium [Protonix] 40 mg PO BID Ipratropium-Albuterol Nebulize [Duoneb 0.5 mg-3 mg/3 ml Soln] 3 ml INHALATION RT-QID Memantine [Namenda] 10 mg PO BID Montelukast [Singulair] 10 mg PO DAILY Nicotine 21Mg/24Hr Patch [Habitrol] 1 patch TRANSDERM DAILY #30 patch Hydrochlorothiazide [Hydrodiuril] 25 mg PO DAILY tab Fluticasone Nasal Warren [Flonase Nasal Warren] 2 spray EA NOSTRIL DAILY PRN PRN Reason: Congestion Methocarbamol [Robaxin-750] 750 mg PO TID Discontinued Nystatin 100,000 Unit/ml Susp [Mycostatin Oral Susp] 500,000 unit PO QID PRN PRN Reason: THRUSH Discharge Medication List Albuterol Inhaler [Ventolin Hfa Inhaler] 2 puff INHALATION RT-Q6H PRN 02/20/14 [History] Aspirin 81 mg PO DAILY 02/20/14 [History] LORazepam [Ativan] 1 mg PO Q8H PRN 02/20/14 [History] Verapamil HCl 120 mg PO DAILY 02/20/14 [History] Gabapentin [Neurontin] 1,200 mg PO TID 08/19/16 [History] Butalb/APAP/Caff 50-325-40Mg [Fioricet 50-325-40] 1 tab PO Q8H 03/25/17 [History] oxyCODONE-APAP 10-325MG [Percocet 10-325 mg] 1 tab PO TID PRN 01/28/18 [History] rOPINIRole HCL [Requip] 0.25 mg PO TID #90 tab 01/31/18 [Rx] Docusate [Colace] 100 mg PO DAILY PRN 04/02/18 [History] Budesonide/Formoterol Fumarate [Symbicort 160-4.5 Mcg Inhaler] 2 puff INHALATION RT-BID 05/06/18 [History] Cholecalciferol [Vitamin D3 (25 Mcg = 1000 Iu)] 1,000 unit PO DAILY 05/07/18 [History] Multivitamins, Thera [Multivitamin (formulary)] 1 tab PO DAILY 05/07/18 [His tory] PARoxetine [Paxil] 40 mg PO DAILY tab 05/09/18 [Rx] Pantoprazole Sodium [Protonix] 40 mg PO BID 10/31/18 [History] Ipratropium-Albuterol Nebulize [Duoneb 0.5 mg-3 mg/3 ml Soln] 3 ml INHALATION RT-QID 11/22/18 [History] Memantine [Namenda] 10 mg PO BID 11/22/18 [History] Montelukast [Singulair] 10 mg PO DAILY 11/22/18 [History] Hydrochlorothiazide [Hydrodiuril] 25 mg PO DAILY tab 11/26/18 [Rx] Nicotine 21Mg/24Hr Patch [Habitrol] 1 patch TRANSDERM DAILY #30 patch 11/26/18 [Rx] Fluticasone Nasal Warren [Flonase Nasal Warren] 2 spray EA NOSTRIL DAILY PRN 04/28/19 [History] Methocarbamol [Robaxin-750] 750 mg PO TID 04/28/19 [History] Azithromycin [Zithromax] 250 mg PO DAILY #3 tab 05/02/19 [Rx] Fluconazole [Diflucan] 100 mg PO DAILY #7 tab 05/02/19 [Rx] Folic Acid 1 mg PO DAILY #30 tab 05/02/19 [Rx] Pyridoxine [Vitamin B-6] 50 mg PO DAILY #30 tab 05/02/19 [Rx] busPIRone HCl [Buspar] 10 mg PO TID #90 tab 05/02/19 [Rx] guaiFENesin [Mucinex] 600 mg PO AC-BID #60 tab.er.12h 05/02/19 [Rx] Follow up Appointment(s)/Referral(s): [facility], [NON-STAFF] - As Needed Carolynn Chanel MD [Medical Doctor] - 1 Week Kilo Tabares MD [Primary Care Provider] - 1-2 days Patient Instructions/Handouts: Multiple Sclerosis (DC) Activity/Diet/Wound Care/Special Instructions: Up with cane, fall precautions. No smoking, cessation information provided. Low fat diet. Discharge Disposition: HOME SELF-CARE
[2019-05-02 17:03] LABS: Glucose,Whole Blood 220 mg/dL (75-99)
[2019-05-02 19:05] VITALS: PULSE 80
== END 2019-05-02 19:49 | disposition home or self-care (01) | DRG 59 ==
LOC: EC 06:46 → 6NMEDSUR 09:48 → OBSVTOIN 04-30 08:56
PROVIDERS: ADMIT Internal Medicine Geriatric Medicine; ATTEND Internal Medicine Geriatric Medicine
DX: G35 Multiple sclerosis (principal); B37.0 Candidal stomatitis; F33.9 Major depressive disorder, recurrent, unspecified; J44.0 Chronic obstructive pulmonary disease with (acute) lower respiratory infection; J96.11 Chronic respiratory failure with hypoxia; R47.01 Aphasia; E66.2 Morbid (severe) obesity with alveolar hypoventilation; I11.9 Hypertensive heart disease without heart failure; E53.1 Pyridoxine deficiency; E53.8 Deficiency of other specified B group vitamins; E55.9 Vitamin D deficiency, unspecified; F17.210 Nicotine dependence, cigarettes, uncomplicated; G25.81 Restless legs syndrome; G31.84 Mild cognitive impairment of uncertain or unknown etiology; G89.29 Other chronic pain; H54.7 Unspecified visual loss; H91.90 Unspecified hearing loss, unspecified ear; J20.9 Acute bronchitis, unspecified; J45.20 Mild intermittent asthma, uncomplicated; M16.0 Bilateral primary osteoarthritis of hip; M17.0 Bilateral primary osteoarthritis of knee; M54.81 Occipital neuralgia; M79.7 Fibromyalgia; M81.0 Age-related osteoporosis without current pathological fracture; R13.10 Dysphagia, unspecified; R29.6 Repeated falls; T38.0X5A Adverse effect of glucocorticoids and synthetic analogues, initial encounter; F41.9 Anxiety disorder, unspecified; H26.9 Unspecified cataract; K21.9 Gastro-esophageal reflux disease without esophagitis; R01.1 Cardiac murmur, unspecified; F40.240 Claustrophobia; R42 Dizziness and giddiness; R45.1 Restlessness and agitation; Z68.24 Body mass index [BMI] 24.0-24.9, adult; H93.13 Tinnitus, bilateral; Z79.51 Long term (current) use of inhaled steroids; Z79.82 Long term (current) use of aspirin; Z79.899 Other long term (current) drug therapy; Z88.1 Allergy status to other antibiotic agents; Z88.8 Allergy status to other drugs, medicaments and biological substances; Z85.42 Personal history of malignant neoplasm of other parts of uterus; Z90.710 Acquired absence of both cervix and uterus; Z99.81 Dependence on supplemental oxygen; Z71.6 Tobacco abuse counseling; Z87.898 Personal history of other specified conditions; Z82.3 Family history of stroke; Z82.41 Family history of sudden cardiac death; Z82.49 Family history of ischemic heart disease and other diseases of the circulatory system
CPT/HCPCS: 36415; 70450; 71046; 72125; 73502; 80048; 80053; 81003; 84145; 85025; 94640; 96361; 96374; 96375; 99285

== ENCOUNTER 2019-07-29 09:45 | Emergency (ER) | payer MEDICARE, OTHER ==
[2019-07-29 09:54] VITALS: RESP 17; TEMP 98.6
[2019-07-29] MEDS ORDERED: SODIUM CHLORIDE 0.9% 1,000 ML IV STA (10:00)
--- NOTE | 2019-07-29 10:03 | ED ---
General Adult HPI - General Chief complaint: Weakness Stated complaint: MS exacerbation Time Seen by Provider: 07/29/19 09:47 Source: patient Mode of arrival: EMS Limitations: no limitations - History of Present Illness Initial comments: Dictation was produced using [employer] dictation software. please excuse any grammatical, word or spelling errors. Chief Complaint: 53-year-old female past medical history of multiple sclerosis, fibromyalgia, osteoarthritis presents with concerns for multiple sclerosis exacerbation. History of Present Illness: 53-year-old [place] female she has extensive history of multiple sclerosis. Patient sees Dr. Ramirez who is her neurologist for her MS. Patient states she gets MS infusions once every 6 months. States that her last emesis infusion was March of last year. Over the last couple d ays she has been reporting symptoms of worsening MS. Patient states that she has over the last 48 hours developed worsening stuttering speech and balance issues. Patient states she fell twice yesterday. She does complain of mild headache since the fall. She called EMS who brought her to the emergency department today. Patient has no other pain complaints at this time. Patient states she suffers from neuropathy. Neurologically she has no new complaints. She does have chronic left lower leg weakness and paresthesias to all her extremities. The ROS documented in this emergency department record has been reviewed and confirmed by me. Those systems with pertinent positive or negative responses have been documented in the HPI. All other systems are other negative and/or noncontributory. PHYSICAL EXAM: General Impression: Alert and oriented x3, not in acute distress, stuttering sp eech HEENT: Normocephalic atraumatic, extra-ocular movements intact, pupils equal and reactive to light bilaterally, mucous membranes moist. Cardiovascular: Heart regular rate and rhythm, S1&S2 audible, no murmurs, rubs or gallops Chest: Lungs clear to auscultation bilaterally, no rhonchi, no wheeze, no rales Abdomen: Bowel sounds present, abdomen soft, non-tender, non-distended, no organomegaly Musculoskeletal: Pulses present and equal in all extremities, no peripheral edema Motor: no focal deficits noted Neurological: CN II-XII grossly intact, mild drift to the left lower extremity Skin: Intact with no visualized rashes Psych: Normal affect and mood ED course: 53-year-old female with extensive history of multiple sclerosis presents emergency Department with chief complaint of emesis exacerbation. Ends upon arrival shows heart rate of 109, rest of vital signs within acceptable limits. Laboratory evaluation obtained. Mild leukocytosis 13.3 which appears to be at her baseline. Hemoglobin 16.1. Coag panel unremarkable. Metabolic panel is negative. Trauma workup was obtained due to history of fall last night. Chest x-ray and pelvis x-ray shows no acute processes. Computed tomography scan of the head C-spine is negative. Discussed patient case with Dr. Mello of neurology who recommends 35 days of steroids and to follow-up with her neurologist. Patient ambulated bedside found to be acceptable. Patient requested that she be admitted to the hospital. Discussed with patient that she does not need to be admitted to the hospital however I did speak with hospitalist content administrator recommended the patient be discharge. He did inform me that patient's neurologist is performing virtual appointments. Patient is encouraged to follow-up with Dr. Ramirez via virtual appointment. She is given a dose of prednisone in the emergency department. Patient given 4 day prescription for prednisone. Patient agreeable to disposition. Patient will be discharged. Patient is tolerating by mouth at bedside. EKG interpretation: Ventricular rate 100, normal sinus rhythm, WV interval 156, QRS 76, QTC 464. No WV prolongation, no QTC prolongation, no ST or T-wave changes noted. EKG compared to 11/22/2018 showing no changes. Overall, this EKG is unremarkable - Related Data Home Medications Medication Instructions Recorded Confirmed Albuterol Inhaler [Ventolin Hfa 2 puff INHALATION RT-Q6H PRN 02/20/14 07/29/19 Inhaler] Aspirin 81 mg PO DAILY 02/20/14 07/29/19 LORazepam [Ativan] 1 mg PO Q8H PRN 02/20/14 07/29/19 Verapamil HCl [Calan] 120 mg PO DAILY 02/20/14 07/29/19 Gabapentin [Neurontin] 1,200 mg PO TID 08/19/16 07/29/19 Butalb/APAP/Caff 50-325-40Mg 1 tab PO Q8H 03/25/17 07/29/19 [Fioricet 50-325-40] oxyCODONE-APAP 10-325MG [Percocet 1 tab PO TID PRN 01/28/18 07/29/19 10-325 mg] Budesonide/Formoterol Fumarate 2 puff INHALATION RT-BID 05/06/18 07/29/19 [Symbicort 160-4.5 Mcg Inhaler] Cholecalciferol [Vitamin D3 (25 2,000 unit PO DAILY 05/07/18 07/29/19 Mcg = 1000 Iu)] Multivitamins, Thera [Multivitamin 1 tab PO DAILY 05/07/18 07/29/19 (formulary)] Pantoprazole Sodium [Protonix] 40 mg PO BID 10/31/18 07/29/19 Ipratropium-Albuterol Nebulize 3 ml INHALATION RT-QID 11/22/18 07/29/19 [Duoneb 0.5 mg-3 mg/3 ml Soln] Memantine [Namenda] 10 mg PO BID 11/22/18 07/29/19 Montelukast [Singulair] 10 mg PO DAILY 11/22/18 07/29/19 Fluticasone Nasal [place] [Flonase 2 spray EA NOSTRIL DAILY PRN 04/28/19 07/29/19 Nasal [place]] Methocarbamol [Robaxin-750] 750 mg PO BID 04/28/19 07/29/19 Promethaz-Cod 6.25-10 mg/5 ml 5 ml PO Q6H PRN 07/29/19 07/29/19 [Phenergan with Codeine] Previous Rx's Medication Instructions Recorded rOPINIRole HCL [Requip] 0.25 mg PO TID #90 tab 01/31/18 PARoxetine [Paxil] 40 mg PO DAILY tab 05/09/18 Hydrochlorothiazide [Hydrodiuril] 25 mg PO DAILY tab 11/26/18 Nicotine 21Mg/24Hr Patch [Habitrol] 1 patch TRANSDERM DAILY #30 patch 11/26/18 Folic Acid 1 mg PO DAILY #30 tab 05/02/19 busPIRone HCl [Buspar] 10 mg PO TID #90 tab 05/02/19 predniSONE 40 mg PO DAILY 4 Days #16 tab 07/29/19 Allergies Allergy/AdvReac Type Severity Reaction Status Date / Time baclofen AdvReac URINARY Verified 07/29/19 11:37 ISSUES dexamethasone [From Decadron] AdvReac "THOMPSON Verified 03/27/20 11:37 SKIN"/DEHYDRATION Review of Systems ROS Statement: Those systems with pertinent positive or pertinent negative responses have been documented in the HPI. ROS Other: All systems not noted in ROS Statement are negative. Past Medical History Past Medical History: Asthma, Cancer, COPD, Eye Disorder, Fibromyalgia, GERD/Reflux, Hearing Disorder / Deafness, Hypertension, Memory Impairment, Neurologic Disorder, Osteoarthritis (OA), Pneumonia, Syncope Additional Past Medical History / Comment(s): MS relapsing/remitting type, ch ronic bilateral eye pain/optic neuritis/ poor vision, cataracts bilaterally, chronic occipital neuralgia, osteoporosis, RLS, chronic hypoxic respiratory failure with home oxygen 2L/NC prn, chronic bronchitis, immunocompromised, elevated blood sugar with steroid use, uterine cancer with hysterectomy/ radiation, heart murmur, mild cognitive impairment, chronic vertigo, falls, rheumatic fever as child, tinnitis bilaterally, allergic rhinitis. History of Any Multi-Drug Resistant Organisms: None Reported Past Surgical History: Bladder Surgery, Heart Catheterization, Hysterectomy Additional Past Surgical History / Comment(s): Nerve blocks, bladder suspension. Past Anesthesia/Blood Transfusion Reactions: No Reported Reaction Additional Past Anesthesia/Blood Transfusion Reaction / Comment(s): mild clausterphobia Past Psychological History: Anxiety, Depression Smoking Status: Current every day smoker - Past Family History Mother Family Medical History: CVA/TIA, Myocardial Infarction ([place]) Additional Family Medical History / Comment(s): Mother is alive at age 74 with history of brain aneurysm, 3 strokes and 2 myocardial infarctions. Brain aneurysms run on mother's side of family Father Additional Family Medical History / Comment(s): Father at age 72 from a cardiac arrest thought to be due to a myocardial infarction. Sister(s) Additional Family Medical History / Comment(s): Patient has 2 sisters with no major medical problems. Patient does not have any brothers. Patient has 2 adult children with no major medical problems. Patient is only family member with MS. General Exam Limitations: no limitations Course Vital Signs 07/29/19 07/29/19 07/29/19 09:49 10:48 11:42 Temperature 98.6 F Pulse Rate 109 H 89 81 Respiratory 17 17 17 Rate Blood Pressure 114/83 110/78 119/77 O2 Sat by Pulse 96 95 Oximetry Medical Decision Making - Lab Data Result diagrams: 07/29/19 10:10 07/29/19 10:10 Lab Results 07/29/19 07/29/19 07/29/19 Range/Units 10:05 10:10 10:10 WBC 13.3 H (3.8-10.6) k/uL RBC 5.05 (3.80-5.40) m/uL Hgb 16.1 H (11.4-16.0) gm/dL Hct 50.0 H (34.0-46.0) % MCV 99.0 (80.0-100.0) fL MCH 32.0 (25.0-35.0) pg MCHC 32.3 (31.0-37.0) g/dL RDW 13.1 (11.5-15.5) % Plt Count 250 (150-450) k/uL Neutrophils % 69 % Lymphocytes % 22 % Monocytes % 5 % Eosinophils % 1 % Basophils % 0 % Neutrophils # 9.2 H (1.3-7.7) k/uL Lymphocytes # 3.0 (1.0-4.8) k/uL Monocytes # 0.7 (0-1.0) k/uL Eosinophils # 0.1 (0-0.7) k/uL Basophils # 0.0 (0-0.2) k/uL PT 9.8 (9.0-12.0) sec INR 0.9 (<1.2) APTT 22.5 (22.0-30.0) sec Sodium (137-145) mmol/L Potassium (3.5-5.1) mmol/L Chloride (98-107) mmol/L Carbon Dioxide (22-30) mmol/L Anion Gap mmol/L BUN (7-17) mg/dL Creatinine (0.52-1.04) mg/dL Est GFR (CKD-EPI)AfAm (>60 ml/min/1.73 sqM) Est GFR (CKD-EPI)NonAf (>60 ml/min/1.73 sqM) Glucose (74-99) mg/dL POC Glucose (mg/dL) 101 H (75-99) mg/dL POC Glu Gut Cleaner ID Yoselin Champagne Calcium (8.4-10.2) mg/dL 07/29/19 Range/Units 10:10 WBC (3.8-10.6) k/uL RBC (3.80-5.40) m/uL Hgb (11.4-16.0) gm/dL Hct (34.0-46.0) % MCV (80.0-100.0) fL MCH (25.0-35.0) pg MCHC (31.0-37.0) g/dL RDW (11.5-15.5) % Plt Count (150-450) k/uL Neutrophils % % Lymphocytes % % Monocytes % % Eosinophils % % Basophils % % Neutrophils # (1.3-7.7) k/uL Lymphocytes # (1.0-4.8) k/uL Monocytes # (0-1.0) k/uL Eosinophils # (0-0.7) k/uL Basophils # (0-0.2) k/uL PT (9.0-12.0) sec INR (<1.2) APTT (22.0-30.0) sec Sodium 137 (137-145) mmol/L Potassium 3.5 (3.5-5.1) mmol/L Chloride 96 L (98-107) mmol/L Carbon Dioxide 32 H (22-30) mmol/L Anion Gap 9 mmol/L BUN 8 (7-17) mg/dL Creatinine 0.56 (0.52-1.04) mg/dL Est GFR (CKD-EPI)AfAm >90 (>60 ml/min/1.73 sqM) Est GFR (CKD-EPI)NonAf >90 (>60 ml/min/1.73 sqM) Glucose 96 (74-99) mg/dL POC Glucose (mg/dL) (75-99) mg/dL POC Glu Gut Cleaner ID Calcium 9.5 (8.4-10.2) mg/dL Disposition Clinical Impression: Multiple sclerosis Disposition: HOME SELF-CARE Condition: Good Instructions (If sedation given, give patient instructions): Multiple Sclerosis (DC) Additional Instructions: Today you were evaluated for multiple sclerosis exacerbation. We are strongly advised to follow-up with her neurologist Dr. Ramirez who according to Dr. Minor is providing virtual appointments. Prescriptions: predniSONE 40 mg PO DAILY 4 Days #16 tab Is patient prescribed a controlled substance at d/c from ED?: No Referrals: Carolynn Ramirez MD [Medical Doctor] - 1-2 days Time of Disposition: 12:01
[2019-07-29 10:06] LABS: Glucose,Whole Blood 101 mg/dL (75-99)
[2019-07-29 10:43] LABS: Basophils % (A) 0 %; Eosinophils # (A) 0.1 k/uL (0-0.7); Eosinophils % (A) 1 %; HGB 16.1 gm/dL (11.4-16.0); Lymphocytes % (A) 22 %; MCHC 32.3 g/dL (31.0-37.0); Mean Platelet Volume 8.9; Monocytes # (A) 0.7 k/uL (0-1.0); Monocytes % (A) 5 %; Neutrophils # (A) 9.2 k/uL (1.3-7.7); Neutrophils % (A) 69 %; Platelet Count 250 k/uL (150-450); RBC 5.05 m/uL (3.80-5.40); RDW 13.1 % (11.5-15.5); WBC 13.3 k/uL (3.8-10.6)
--- NOTE | 2019-07-29 10:49 | XR ---
EXAMINATION TYPE: XR chest 1V portable DATE OF EXAM: 07/29/2019 COMPARISON: 04/22/2019 HISTORY: Fall with head pain and chest pain TECHNIQUE: Single frontal view of the chest is obtained. FINDINGS: Copious soft tissues somewhat limiting the examination, particularly evaluation of the osse ous structures. There is no focal air space opacity, pleural effusion, or pneumothorax seen. The ca rdiac silhouette size is mildly enlarged. The osseous structures are intact. IMPRESSION: No acute cardiopulmonary process.
[2019-07-29 10:51] LABS: African American GFR (CKD) >90 (>60 ml/min/1.73 sqM); Anion Gap 9 mmol/L; Blood Urea Nitrogen 8 mg/dL (7-17); Calcium 9.5 mg/dL (8.4-10.2); Carbon Dioxide 32 mmol/L (22-30); Chloride 96 mmol/L (98-107); Glucose 96 mg/dL (74-99); Non-African American GFR(CKD) >90 (>60 ml/min/1.73 sqM); Potassium 3.5 mmol/L (3.5-5.1); Sodium 137 mmol/L (137-145)
--- NOTE | 2019-07-29 10:51 | XR ---
EXAMINATION TYPE: XR pelvis AP view DATE OF EXAM: 07/29/2019 CLINICAL HISTORY: Pelvic pain after fall TECHNIQUE: A single AP view of the pelvis is obtained. COMPARISON: None. FINDINGS: There is no acute fracture/dislocation evident in the pelvis. The hip and sacroiliac join ts appear aligned with joint space narrowing on the left. The overlying soft tissue appears unremark able. IMPRESSION: There is no acute fracture or dislocation in the pelvis.
--- NOTE | 2019-07-29 10:55 | CT ---
EXAMINATION TYPE: CT brain kristina gunn con DATE OF EXAM: 07/29/2019 COMPARISON: 06/29/2018 HISTORY: 53-year-old female MS exacerbation, pain after fall CT DLP: 1708.9 mGycm Automated exposure control for dose reduction was used. Technique: Examination of the head was done in axial plane without intravenous contrast. Coronal and sagittal reconstructions performed. CT of the cervical spine was obtained in axial plane without intravenous injection of contrast mater ial. Coronal and sagittal reformatted images were obtained from the axial views for evaluation of f ractures, spinal alignment and canal. FINDINGS: Head: There is no evidence of acute intracranial hemorrhage, acute ischemic changes, mass, mass-effect, or extra-axial fluid collection. There is no effacement of cerebral sulci or basal subarachnoid cister ns. There is no hydrocephalus. There is no midline shift. [place]-white matter distinction is preserv ed. Paranasal sinuses and mastoid air cells well pneumatized. Orbits and globes are intact. Leftward nasa l septal deviation. Cervical spine: No craniocervical junction abnormality, predental space widening, or prevertebral soft tissue swellin g. Mild degenerative disc disease with small posterior disc bulges throughout. Straightening of the norm al cervical lordosis but with preserved alignment. No acute fracture of the cervical spine. Scattered mild facet and uncovertebral joint arthropathy. Sagittal and coronal reformatted images confirm above findings. COMBINED IMPRESSION: 1. No acute intracranial abnormality seen. 2. No acute fracture or malalignment of the cervical spine. Mild spondylotic change. Straightening of the normal cervical lordosis could be positional or due to muscle spasm.
[2019-07-29 10:56] LABS: INR 0.9 (<1.2); Partial Thromboplastin Time 22.5 sec (22.0-30.0); Prothrombin Time 9.8 sec (9.0-12.0)
[2019-07-29] MEDS ORDERED: predniSONE 50 MG TAB PO STA (11:24)
[2019-07-29 11:44] VITALS: BP 119/77; PULSE 81
== END 2019-07-29 12:13 | disposition home or self-care (01) ==
LOC: EC 09:45
DX: G35 Multiple sclerosis (principal); R11.10 Vomiting, unspecified; D72.829 Elevated white blood cell count, unspecified; G31.84 Mild cognitive impairment of uncertain or unknown etiology; M54.81 Occipital neuralgia; J96.11 Chronic respiratory failure with hypoxia; J44.9 Chronic obstructive pulmonary disease, unspecified; I10 Essential (primary) hypertension; K21.9 Gastro-esophageal reflux disease without esophagitis; M19.90 Unspecified osteoarthritis, unspecified site; F17.200 Nicotine dependence, unspecified, uncomplicated; Z79.82 Long term (current) use of aspirin; Z79.51 Long term (current) use of inhaled steroids; Z79.899 Other long term (current) drug therapy; Z88.8 Allergy status to other drugs, medicaments and biological substances; Z85.42 Personal history of malignant neoplasm of other parts of uterus; Z90.710 Acquired absence of both cervix and uterus; Z99.81 Dependence on supplemental oxygen; Z95.5 Presence of coronary angioplasty implant and graft; W19.XXXA Unspecified fall, initial encounter
CPT/HCPCS: 36415; 93005; 80048; 85025; 85610; 85730; 72170; 71045; 72125; 70450; 99285; 96360; J7512

== ENCOUNTER 2019-08-08 14:41 | Emergency (ER) | payer MEDICARE, OTHER ==
[2019-08-08 14:52] VITALS: RESP 18
[2019-08-08] MEDS ORDERED: ACETAMINOPHEN TAB 500 MG TAB PO STA (14:53)
[2019-08-08] MEDS ORDERED: ALBUTEROL NEBULIZED 2.5 MG/3 ML INHALATION STA (14:54)
[2019-08-08] MEDS ORDERED: SODIUM CHLORIDE 0.9% 500 ML 500 ML IV STA ×2 (14:55→17:15)
[2019-08-08] MEDS ORDERED: MORPHINE SULFATE 4 MG/ML SYRINGE IVP STA (14:55)
--- NOTE | 2019-08-08 15:04 | ED ---
General Adult HPI - General Chief complaint: Shortness of Breath Stated complaint: POLA, fever Time Seen by Provider: 08/08/19 14:44 Source: patient, EMS, RN notes reviewed Mode of arrival: EMS Limitations: physical limitation - History of Present Illness Initial comments: 53-year-old female with a complicated past medical history including multiple sclerosis, asthma, COPD on 2 L O2 at home, hypertension presents to the emergency department for a chief complaint of cough and shortness of breath. Patient states that 4 days ago her friend visited her. States that since then she has had cough and shortness of breath. Patient also has had fevers. P rosita took 325 mg of Tylenol this morning but has not taken anything since for her fevers. Patient states cough is productive with clear sputum. Patient states her MS is also flaring and that she is having jerking movements which is normal for her with MS.Patient has no other complaints at this time including chest pain, abdominal pain, nausea or vomiting, headache, or visual changes. - Related Data Home Medications Medication Instructions Recorded Confirmed Albuterol Inhaler (Bulk) [Ventolin 2 puff INHALATION RT-Q6H PRN 02/20/14 08/08/19 Hfa Inhaler (Bulk)] Aspirin 81 mg PO DAILY 02/20/14 08/08/19 LORazepam [Ativan] 1 mg PO Q8H PRN 02/20/14 08/08/19 Verapamil HCl [Calan] 120 mg PO DAILY 02/20/14 08/08/19 Gabapentin [Neurontin] 1,200 mg PO TID 08/19/16 08/08/19 Butalb/APAP/Caff 50-325-40Mg 1 tab PO Q8H 03/25/17 08/08/19 [Fioricet 50-325-40] oxyCODONE-APAP 10-325MG [Percocet 1 tab PO TID PRN 01/28/18 08/08/19 10-325 mg] Budesonide/Formoterol Fumarate 2 puff INHALATION RT-BID 05/06/18 08/08/19 [Symbicort 160-4.5 Mcg Inhaler] Cholecalciferol [Vitamin D3 (25 2,000 unit PO DAILY 05/07/18 08/08/19 Mcg = 1000 Iu)] Multivitamins, Thera [Multivitamin 1 tab PO DAILY 05/07/18 08/08/19 (formulary)] Pantoprazole Sodium [Protonix] 40 mg PO BID 10/31/18 08/08/19 Ipratropium-Albuterol Nebulize 3 ml INHALATION RT-QID 11/22/18 08/08/19 [Duoneb 0.5 mg-3 mg/3 ml Soln] Memantine [Namenda] 10 mg PO BID 11/22/18 08/08/19 Montelukast [Singulair] 10 mg PO DAILY 11/22/18 08/08/19 Fluticasone Nasal Spiro [Flonase 2 spray EA NOSTRIL DAILY PRN 04/28/19 08/08/19 Nasal Spiro] Methocarbamol [Robaxin-750] 750 mg PO BID 04/28/19 08/08/19 Promethaz-Cod 6.25-10 mg/5 ml 5 ml PO Q6H PRN 07/29/19 08/08/19 [Phenergan with Codeine] Amoxicillin/Potassium Clav 1 tab PO BID 08/08/19 08/08/19 [Augmentin 875-125 Tablet] Previous Rx's Medication Instructions Recorded rOPINIRole HCL [Requip] 0.25 mg PO TID #90 tab 01/31/18 PARoxetine [Paxil] 40 mg PO DAILY tab 05/09/18 Hydrochlorothiazide [Hydrodiuril] 25 mg PO DAILY tab 11/26/18 Nicotine 21Mg/24Hr Patch [Habitrol] 1 patch TRANSDERM DAILY #30 patch 11/26/18 Folic Acid 1 mg PO DAILY #30 tab 05/02/19 busPIRone HCl [Buspar] 10 mg PO TID #90 tab 05/02/19 predniSONE 40 mg PO DAILY 4 Days #16 tab 07/29/19 predniSONE 50 mg PO DAILY #5 tablet 08/08/19 Allergies Allergy/AdvReac Type Severity Reaction Status Date / Time baclofen AdvReac URINARY Verified 08/08/19 16:12 ISSUES dexamethasone [From Decadron] AdvReac "THOMPSON Verified 08/08/19 16:12 SKIN"/DEHYDRATION Review of Systems ROS Statement: Those systems with pertinent positive or pertinent negative responses have been documented in the HPI. ROS Other: All systems not noted in ROS Statement are negative. Past Medical History Past Medical History: Asthma, Cancer, COPD, Eye Disorder, Fibromyalgia, GERD/Reflux, Hearing Disorder / Deafness, Hypertension, Memory Impairment, Neurologic Disorder, Osteoarthritis (OA), Pneumonia, Syncope Additional Past Medical History / Comment(s): MS relapsing/remitting type, chronic bilateral eye pain/optic neuritis/ poor vision, cataracts bilaterally, chronic occipital neuralgia, osteoporosis, RLS, chronic hypoxic respiratory failure with home oxygen 2L/NC prn, chronic bronchitis, immunocompromised, elevated blood sugar with steroid use, uterine cancer with hysterectomy/radiation, heart murmur, mild cognitive impairment, chronic vertigo, falls, rheumatic fever as child, tinnitis bilaterally, allergic rhinitis. History of Any Multi-Drug Resistant Organisms: None Reported Past Surgical History: Bladder Surgery, Heart Catheterization, Hysterectomy Additional Past Surgical History / Comment(s): Nerve blocks, bladder suspension. Past Anesthesia/Blood Transfusion Reactions: No Reported Reaction Additional Past Anesthesia/Blood Transfusion Reaction / Comment(s): mild clausterphobia Past Psychological History: Anxiety, Depression Smoking Status: Current every day smoker - Past Family History Mother Family Medical History: CVA/TIA, Myocardial Infarction ([place]) Additional Family Medical History / Comment(s): Mother is alive at age 74 with history of brain aneurysm, 3 strokes and 2 myocardial infarctions. Brain aneurysms run on mother's side of family Father Additional Family Medical History / Comment(s): Father at age 72 from a cardiac arrest thought to be due to a myocardial infarction. Sister(s) Additional Family Medical History / Comment(s): Patient has 2 sisters with no major medical problems. Patient does not have any brothers. Patient has 2 adult children with no major medical problems. Patient is only family member with MS. General Exam Limitations: physical limitation General appearance: alert, in no apparent distress Head exam: Present: atraumatic, normocephalic, normal inspection Eye exam: Present: normal appearance, PERRL, EOMI. Absent: scleral icterus, conjunctival injection, periorbital swelling ENT exam: Present: normal exam, mucous membranes moist Neck exam: Present: normal inspection, full ROM. Absent: tenderness, meningismus, lymphadenopathy Respiratory exam: Present: wheezes, decreased breath sounds. Absent: respiratory distress, rales, rhonchi, stridor Cardiovascular Exam: Present: regular rate, normal rhythm, normal heart sounds. Absent: systolic murmur, diastolic murmur, rubs, gallop, clicks GI/Abdominal exam: Present: soft, normal bowel sounds. Absent: distended, tenderness, guarding, rebound, rigid Neurological exam: Present: alert Psychiatric exam: Present: normal affect, normal mood Course Vital Signs 08/08/19 08/08/19 08/08/19 14:48 16:22 18:48 Temperature 100.4 F H Pulse Rate 107 H 99 92 Respiratory 18 18 18 Rate Blood Pressure 128/91 117/84 122/86 O2 Sat by Pulse 98 99 97 Oximetry EKG Findings - EKG Comments: EKG Findings:: Normal sinus rhythm, ventricular rate 98, IL int 140, QTC 464 Medical Decision Making - Medical Decision Making Vitals are stable. Patient does have low-grade fever of 100.4 with slightly reflexive tachycardia. However oxygen saturation is well-maintained. Vitals are otherwise stable. CBC CMP is unremarkable. Chest x-ray showed a limited exam due to large body habitus. No definite acute process. Therefore CT of the chest was obtained which showed small areas of groundglass infiltrate in the right lower lobe. Developing infiltrate is not excluded. However overall appearance is improved relative to prior exam from 11/22/2018. Patient is already being treated with Augmentin which she will continue. Patient is able to ambulate at baseline but states her legs feel weak when doing so secondary to her MS exacerbation. Dr. Mann spoke with Dr. Thomason about admission and at this time she feels given current situation with coronavirus it is best to treat patient outpatient with oral prednisone. I also discussed the patient that it is possible she could have coronavirus given cough and fever. I discussed self quarantine. Discussed returning if she has any worsening symptoms. - Lab Data Result diagrams: 08/08/19 15:30 08/08/19 15:30 Lab Results 08/08/19 08/08/19 08/08/19 Range/Units 15:30 15:30 15:30 WBC 13.8 H (3.8-10.6) k/uL RBC 4.26 (3.80-5.40) m/uL Hgb 13.4 (11.4-16.0) gm/dL Hct 43.1 (34.0-46.0) % MCV 101.1 H (80.0-100.0) fL MCH 31.5 (25.0-35.0) pg MCHC 31.2 (31.0-37.0) g/dL RDW 12.8 (11.5-15.5) % Plt Count 261 (150-450) k/uL Neutrophils % 71 % Lymphocytes % 21 % Monocytes % 3 % Eosinophils % 3 % Basophils % 0 % Neutrophils # 9.8 H (1.3-7.7) k/uL Lymphocytes # 2.9 (1.0-4.8) k/uL Monocytes # 0.5 (0-1.0) k/uL Eosinophils # 0.3 (0-0.7) k/uL Basophils # 0.1 (0-0.2) k/uL Hypochromasia Slight PT 10.4 (9.0-12.0) sec INR 1.0 (<1.2) APTT 21.9 L (22.0-30.0) sec Sodium 138 (137-145) mmol/L Potassium 3.8 (3.5-5.1) mmol/L Chloride 94 L (98-107) mmol/L Carbon Dioxide 39 H (22-30) mmol/L Anion Gap 5 mmol/L BUN 7 (7-17) mg/dL Creatinine 0.52 (0.52-1.04) mg/dL Est GFR (CKD-EPI)AfAm >90 (>60 ml/min/1.73 sqM) Est GFR (CKD-EPI)NonAf >90 (>60 ml/min/1.73 sqM) Glucose 132 H (74-99) mg/dL Plasma Lactic Acid Adalid (0.7-2.0) mmol/L Calcium 8.7 (8.4-10.2) mg/dL Magnesium 1.6 (1.6-2.3) mg/dL Total Bilirubin 0.3 (0.2-1.3) mg/dL AST 25 (14-36) U/L ALT 23 (4-34) U/L Alkaline Phosphatase 88 (38-126) U/L Troponin I (0.000-0.034) ng/mL C-Reactive Protein 46.3 H (<10.0) mg/L NT-Pro-B Natriuret Pep pg/mL Total Protein 6.1 L (6.3-8.2) g/dL Albumin 3.8 (3.5-5.0) g/dL Influenza Type A RNA (Not Detectd) Influenza Type B (PCR) (Not Detectd) 08/08/19 08/08/19 08/08/19 Range/Units 15:30 15:30 15:30 WBC (3.8-10.6) k/uL RBC (3.80-5.40) m/uL Hgb (11.4-16.0) gm/dL Hct (34.0-46.0) % MCV (80.0-100.0) fL MCH (25.0-35.0) pg MCHC (31.0-37.0) g/dL RDW (11.5-15.5) % Plt Count (150-450) k/uL Neutrophils % % Lymphocytes % % Monocytes % % Eosinophils % % Basophils % % Neutrophils # (1.3-7.7) k/uL Lymphocytes # (1.0-4.8) k/uL Monocytes # (0-1.0) k/uL Eosinophils # (0-0.7) k/uL Basophils # (0-0.2) k/uL Hypochromasia PT (9.0-12.0) sec INR (<1.2) APTT (22.0-30.0) sec Sodium (137-145) mmol/L Potassium (3.5-5.1) mmol/L Chloride (98-107) mmol/L Carbon Dioxide (22-30) mmol/L Anion Gap mmol/L BUN (7-17) mg/dL Creatinine (0.52-1.04) mg/dL Est GFR (CKD-EPI)AfAm (>60 ml/min/1.73 sqM) Est GFR (CKD-EPI)NonAf (>60 ml/min/1.73 sqM) Glucose (74-99) mg/dL Plasma Lactic Acid Adalid 1.3 (0.7-2.0) mmol/L Calcium (8.4-10.2) mg/dL Magnesium (1.6-2.3) mg/dL Total Bilirubin (0.2-1.3) mg/dL AST (14-36) U/L ALT (4-34) U/L Alkaline Phosphatase (38-126) U/L Troponin I <0.012 (0.000-0.034) ng/mL C-Reactive Protein (<10.0) mg/L NT-Pro-B Natriuret Pep 753 pg/mL Total Protein (6.3-8.2) g/dL Albumin (3.5-5.0) g/dL Influenza Type A RNA (Not Detectd) Influenza Type B (PCR) (Not Detectd) 08/08/19 Range/Units 19:15 WBC (3.8-10.6) k/uL RBC (3.80-5.40) m/uL Hgb (11.4-16.0) gm/dL Hct (34.0-46.0) % MCV (80.0-100.0) fL MCH (25.0-35.0) pg MCHC (31.0-37.0) g/dL RDW (11.5-15.5) % Plt Count (150-450) k/uL Neutrophils % % Lymphocytes % % Monocytes % % Eosinophils % % Basophils % % Neutrophils # (1.3-7.7) k/uL Lymphocytes # (1.0-4.8) k/uL Monocytes # (0-1.0) k/uL Eosinophils # (0-0.7) k/uL Basophils # (0-0.2) k/uL Hypochromasia PT (9.0-12.0) sec INR (<1.2) APTT (22.0-30.0) sec Sodium (137-145) mmol/L Potassium (3.5-5.1) mmol/L Chloride (98-107) mmol/L Carbon Dioxide (22-30) mmol/L Anion Gap mmol/L BUN (7-17) mg/dL Creatinine (0.52-1.04) mg/dL Est GFR (CKD-EPI)AfAm (>60 ml/min/1.73 sqM) Est GFR (CKD-EPI)NonAf (>60 ml/min/1.73 sqM) Glucose (74-99) mg/dL Plasma Lactic Acid Adalid (0.7-2.0) mmol/L Calcium (8.4-10.2) mg/dL Magnesium (1.6-2.3) mg/dL Total Bilirubin (0.2-1.3) mg/dL AST (14-36) U/L ALT (4-34) U/L Alkaline Phosphatase (38-126) U/L Troponin I (0.000-0.034) ng/mL C-Reactive Protein (<10.0) mg/L NT-Pro-B Natriuret Pep pg/mL Total Protein (6.3-8.2) g/dL Albumin (3.5-5.0) g/dL Influenza Type A RNA Not Detected (Not Detectd) Influenza Type B (PCR) Not Detected (Not Detectd) Disposition Clinical Impression: Fever, Cough Disposition: HOME SELF-CARE Condition: Good Additional Instructions: Please continue your antibiotic as directed. Take steroid as directed. Please follow-up with Dr. Tabares. Return to the emergency department for any worsening symptoms. Prescriptions: predniSONE 50 mg PO DAILY #5 tablet Is patient prescribed a controlled substance at d/c from ED?: No Referrals: Kilo Tabares MD [Primary Care Provider] - 1-2 days Time of Disposition: 18:24
[2019-08-08] MEDS ORDERED: ALBUTEROL HFA INHALER INHALATION STA (15:13)
[2019-08-08 15:42] LABS: Basophils # (A) 0.1 k/uL (0-0.2); Basophils % (A) 0 %; Eosinophils # (A) 0.3 k/uL (0-0.7); Eosinophils % (A) 3 %; HCT 43.1 % (34.0-46.0); HGB 13.4 gm/dL (11.4-16.0); Hypochromasia Slight; Lymphocytes # (A) 2.9 k/uL (1.0-4.8); Lymphocytes % (A) 21 %; MCH 31.5 pg (25.0-35.0); MCHC 31.2 g/dL (31.0-37.0); MCV 101.1 fL (80.0-100.0); Mean Platelet Volume 8.7; Monocytes # (A) 0.5 k/uL (0-1.0); Monocytes % (A) 3 %; Neutrophils # (A) 9.8 k/uL (1.3-7.7); Neutrophils % (A) 71 %; Platelet Count 261 k/uL (150-450); RBC 4.26 m/uL (3.80-5.40); RDW 12.8 % (11.5-15.5); WBC 13.8 k/uL (3.8-10.6)
[2019-08-08 15:50] LABS: Partial Thromboplastin Time 21.9 sec (22.0-30.0); Prothrombin Time 10.4 sec (9.0-12.0)
[2019-08-08 15:54] LABS: ALT 23 U/L (4-34); AST 25 U/L (14-36); African American GFR (CKD) >90 (>60 ml/min/1.73 sqM); Albumin 3.8 g/dL (3.5-5.0); Alkaline Phosphatase 88 U/L (38-126); Anion Gap 5 mmol/L; Blood Urea Nitrogen 7 mg/dL (7-17); C Reactive Protein 46.3 mg/L (<10.0); Calcium 8.7 mg/dL (8.4-10.2); Carbon Dioxide 39 mmol/L (22-30); Chloride 94 mmol/L (98-107); Glucose 132 mg/dL (74-99); Magnesium 1.6 mg/dL (1.6-2.3); Non-African American GFR(CKD) >90 (>60 ml/min/1.73 sqM); Potassium 3.8 mmol/L (3.5-5.1); Sodium 138 mmol/L (137-145); Total Bilirubin 0.3 mg/dL (0.2-1.3); Total Protein 6.1 g/dL (6.3-8.2)
--- NOTE | 2019-08-08 15:58 | XR ---
EXAMINATION TYPE: XR chest 1V portable DATE OF EXAM: 08/08/2019 Comparison: 07/29/2019 Clinical History: 53-year-old female Suspected COVID-19 pneumonia Findings: Borderline in size. Aorta and pulmonary vasculature within normal limits. Hazy mid and lower lung den sities related to overlying soft tissue. Allowing for this limitation, no roldan consolidation or pleu ral effusion. Impression: Limited exam due to large patient body habitus casting hazy mid and lower lung densities. No definite acute process allowing for this limitation. If persistent concern, consider follow-up high quality P A and lateral views.
[2019-08-08] MEDS ORDERED: RX INFO: IV CONTRAST WAS GIVEN 1 EACH MISC MISCELLANE PRN (17:14)
--- NOTE | 2019-08-08 17:53 | CT ---
EXAMINATION TYPE: CT chest w con DATE OF EXAM: 08/08/2019 COMPARISON: 11/22/2018 HISTORY: Cough, fever. Possible covid. CT DLP: 677.9 mGycm Automated exposure control for dose reduction was used. CONTRAST: CT scan of the chest is performed with IV Contrast, patient injected with 100 mL of Isovue 370. FINDINGS: LUNGS: Small areas of groundglass infiltrate right lower lobe image 39 and left lower lobe image 35. Developing infiltrates not excluded. The overall appearance however is improved relative to prior exa mination. MEDIASTINUM: There are no greater than 1 cm hilar or mediastinal lymph nodes. No pericardial effusi on is seen. Thoracic aorta is of normal caliber. The heart is not enlarged. UPPER ABDOMEN: No significant abnormality appreciated. OTHER: No additional significant abnormality is seen. IMPRESSION: Small areas of groundglass infiltrate right lower lobe image 39 and left lower lobe image 35. Develop ing infiltrates not excluded. The overall appearance however is improved relative to prior examej pratt
[2019-08-08] MEDS ORDERED: cefTRIAXone IN SWFI 1,000 MG/10 ML SYRINGE IVP STA (18:24)
[2019-08-08] MEDS ORDERED: AZITHROMYCIN 500 MG in SODIUM CHLORIDE 0.9% 250 ML IVPB STA (18:24)
[2019-08-08] MEDS ORDERED: NALOXONE 0.4 MG/ML 1 ML VIAL IV PRN (18:25)
[2019-08-08] MEDS ORDERED: FLUTICASONE 50MCG/SPRAY NASAL 16GM EA NOSTRIL PRN (18:26)
[2019-08-08] MEDS ORDERED: LORazepam 1 MG TAB PO PRN (18:26)
[2019-08-08] MEDS ORDERED: oxyCODONE-APAP 10-325MG 1 EACH TAB PO PRN (18:26)
[2019-08-08] MEDS ORDERED: ALBUTEROL INHALATION PRN (18:26)
[2019-08-08] MEDS ORDERED: PROMETHAZ COD PO PRN (18:26)
[2019-08-08] MEDS ORDERED: SODIUM CHLORIDE 0.9% 1,000 ML IV SCH (18:30)
[2019-08-08] MEDS ORDERED: BUTALB/APAP/CAFF 50-325-40MG TAB PO PRN (18:30)
[2019-08-08 20:11] VITALS: BP 125/85; PULSE 95; TEMP 98.2
[2019-08-08] MEDS ORDERED: PANTOPRAZOLE 40 MG TABLET PO SCH (21:00)
[2019-08-08] MEDS ORDERED: METHOCARBAMOL 750 MG TAB PO SCH (21:00)
[2019-08-08] MEDS ORDERED: MEMANTINE 10 MG TAB PO SCH (21:00)
[2019-08-08] MEDS ORDERED: GABAPENTIN 1200 MG PO SCH (22:00)
[2019-08-08] MEDS ORDERED: busPIRone HCl 10 MG TAB PO SCH (22:00)
[2019-08-09] MEDS ORDERED: HYDROCHLOROTHIAZIDE 25 MG TAB PO SCH (09:00)
[2019-08-09] MEDS ORDERED: CHOLECALCIFEROL 1,000 UNIT TAB PO SCH (09:00)
[2019-08-09] MEDS ORDERED: FOLIC ACID 1 MG TAB PO SCH (09:00)
[2019-08-09] MEDS ORDERED: NICOTINE 21MG/24HR PATCH TRANSDERM SCH (09:00)
[2019-08-09] MEDS ORDERED: MONTELUKAST 10 MG TAB PO SCH (09:00)
[2019-08-09] MEDS ORDERED: VERAPAMIL HCL 120 MG PO SCH (09:00)
[2019-08-09] MEDS ORDERED: ASPIRIN 81 MG PO SCH (09:00)
[2019-08-09] MEDS ORDERED: PARoxetine 20 MG TAB PO SCH (09:00)
== END 2019-08-08 20:11 | disposition home or self-care (01) ==
LOC: EC 14:41
DX: R50.9 Fever, unspecified (principal); R05 Cough; R06.2 Wheezing; R00.0 Tachycardia, unspecified; R91.8 Other nonspecific abnormal finding of lung field; G35 Multiple sclerosis; R06.02 Shortness of breath; J44.9 Chronic obstructive pulmonary disease, unspecified; M79.7 Fibromyalgia; K21.9 Gastro-esophageal reflux disease without esophagitis; H91.90 Unspecified hearing loss, unspecified ear; I10 Essential (primary) hypertension; G31.84 Mild cognitive impairment of uncertain or unknown etiology; M19.90 Unspecified osteoarthritis, unspecified site; M54.81 Occipital neuralgia; F41.9 Anxiety disorder, unspecified; F17.200 Nicotine dependence, unspecified, uncomplicated; Z88.8 Allergy status to other drugs, medicaments and biological substances; Z79.51 Long term (current) use of inhaled steroids; Z79.899 Other long term (current) drug therapy; Z79.82 Long term (current) use of aspirin; Z87.01 Personal history of pneumonia (recurrent); Z85.42 Personal history of malignant neoplasm of other parts of uterus; Z92.3 Personal history of irradiation; Z90.710 Acquired absence of both cervix and uterus; Z99.81 Dependence on supplemental oxygen
CPT/HCPCS: 36415; 94640; 93005; 83880; 80053; 83605; 83735; 84484; 85025; 85610; 85730; 86140; 87040; 87502; 87635; 71045; 71260; 99285; 96374; 96375; 96361; J2270; J0696; Q9967

== ENCOUNTER 2019-08-09 10:49 | Inpatient (IN) | payer MEDICARE, OTHER ==
--- NOTE | 2019-08-09 11:19 | ED ---
SOB HPI - General Chief Complaint: Shortness of Breath Stated Complaint: POLA Time Seen by Provider: 08/09/19 11:00 Source: EMS Mode of arrival: EMS Limitations: no limitations - History of Present Illness Initial Comments: The patient is a 53-year-old female past medical history of MS, COPD on 2 L home O2, hypertension who presents to the emergency department with reported worsening cough and shortness of breath. The patient was seen in our emergency department yesterday for MS exacerbation and shortness of breath. She is diagnosed with pneumonia. She was sent home on prednisone for a possible MS exacerbation. Rectum was made by Dr. Thomason who is the patient's primary care physician. The patient reports that she was called today and was told that her Covid test was damaged in route to the testing center. They directed her to come back into the emergency room for retesting. The patient called EMS because she she stated that she was having worsening shortness of breath. She also believes that she is having an MS flare. States she gets generalized weakness with difficulty speaking. She has required hospitalization in the past for IV steroid infusion. She sees Dr. Ramirez an outpatient setting. The patient took a Percocet this morning which had Tylenol in it for her fever. States it feels like her work of breathing is getting worse. Her weakness has caused her to sustain a fall earlier today in the bathroom she landed on her tailbone. He denies any blunt head trauma or loss of consciousness. No lateralizing weakness. Denies any headaches or visual changes. No chest pain, nausea or vomiting. There are no alleviating, precipitating or modifying factors - Related Data Home Medications Medication Instructions Recorded Confirmed Aspirin 81 mg PO DAILY 02/20/14 08/09/19 LORazepam [Ativan] 1 mg PO Q8H PRN 02/20/14 08/09/19 Verapamil HCl [Calan] 120 mg PO DAILY 02/20/14 08/09/19 Gabapentin [Neurontin] 1,200 mg PO TID 08/19/16 08/09/19 Butalb/APAP/Caff 50-325-40Mg 1 tab PO Q8H PRN 03/25/17 08/09/19 [Fioricet 50-325-40] oxyCODONE-APAP 10-325MG [Percocet 1 tab PO TID PRN 01/28/18 08/09/19 10-325 mg] Budesonide/Formoterol Fumarate 2 puff INHALATION RT-BID 05/06/18 08/09/19 [Symbicort 160-4.5 Mcg Inhaler] Cholecalciferol [Vitamin D3 (25 2,000 unit PO DAILY 05/07/18 08/09/19 Mcg = 1000 Iu)] Multivitamins, Thera [Multivitamin 1 tab PO DAILY 05/07/18 08/09/19 (formulary)] Pantoprazole Sodium [Protonix] 40 mg PO BID 10/31/18 08/09/19 Ipratropium-Albuterol Nebulize 3 ml INHALATION RT-QID PRN 11/22/18 08/09/19 [Duoneb 0.5 mg-3 mg/3 ml Soln] Memantine [Namenda] 10 mg PO BID 11/22/18 08/09/19 Montelukast [Singulair] 10 mg PO DAILY 11/22/18 08/09/19 Fluticasone Nasal [place] [Flonase 2 spray EA NOSTRIL DAILY PRN 04/28/19 08/09/19 Nasal [place]] Methocarbamol [Robaxin-750] 750 mg PO BID 04/28/19 08/09/19 Promethaz-Cod 6.25-10 mg/5 ml 5 ml PO Q6H PRN 07/29/19 08/09/19 [Phenergan with Codeine] Albuterol Sulfate [Ventolin HFA] 1 - 2 puff INHALATION Q6H PRN 08/09/19 08/09/19 Previous Rx's Medication Instructions Recorded rOPINIRole HCL [Requip] 0.25 mg PO TID #90 tab 01/31/18 PARoxetine [Paxil] 40 mg PO DAILY tab 05/09/18 Hydrochlorothiazide [Hydrodiuril] 25 mg PO DAILY tab 11/26/18 Nicotine 21Mg/24Hr Patch [Habitrol] 1 patch TRANSDERM DAILY #30 patch 11/26/18 Folic Acid 1 mg PO DAILY #30 tab 05/02/19 busPIRone HCl [Buspar] 10 mg PO TID #90 tab 05/02/19 Doxycycline [Vibramycin] 100 mg PO BID 7 Days #14 capsule 08/11/19 Nystatin 100,000 Unit/ml Susp 500,000 unit PO QID #120 ml 08/11/19 [Mycostatin Oral Susp] predniSONE 0 mg PO DIRECTED #30 tab 08/11/19 Allergies Allergy/AdvReac Type Severity Reaction Status Date / Time baclofen AdvReac URINARY Verified 08/09/19 11:34 ISSUES dexamethasone [From Decadron] AdvReac "THOMPSON Verified 08/09/19 11:34 SKIN"/DEHYDRATION Review of Systems ROS Statement: Those systems with pertinent positive or pertinent negative responses have been documented in the HPI. ROS Other: All systems not noted in ROS Statement are negative. Past Medical History Past Medical History: Asthma, Cancer, COPD, Eye Disorder, Fibromyalgia, GERD/Reflux, Hearing Disorder / Deafness, Hypertension, Memory Impairment, Neurologic Disorder, Osteoarthritis (OA), Pneumonia, Syncope Additional Past Medical History / Comment(s): MS relapsing/remitting type, chronic bilateral eye pain/optic neuritis/ poor vision, cataracts bilaterally, chronic occipital neuralgia, osteoporosis, RLS, chronic hypoxic respiratory failure with home oxygen 2L/[place] prn, chronic bronchitis, immunocompromised, elevated blood sugar with steroid use, uterine cancer with hyster ectomy/radiation, heart murmur, mild cognitive impairment, chronic vertigo, falls, rheumatic fever as child, tinnitis bilaterally, allergic rhinitis. History of Any Multi-Drug Resistant Organisms: None Reported Past Surgical History: Bladder Surgery, Heart Catheterization, Hysterectomy Additional Past Surgical History / Comment(s): Nerve blocks, bladder suspension. Past Anesthesia/Blood Transfusion Reactions: No Reported Reaction Additional Past Anesthesia/Blood Transfusion Reaction / Comment(s): mild clausterphobia Past Psychological History: Anxiety, Depression Smoking Status: Current every day smoker Past Alcohol Use History: None Reported Past Drug Use History: None Reported - Past Family History Mother Family Medical History: CVA/TIA, Myocardial Infarction ([place]) Additional Family Medical History / Comment(s): Mother is alive at age 74 with history of brain aneurysm, 3 strokes and 2 myocardial infarctions. Brain aneurysms run on mother's side of family Father Additional Family Medical History / Comment(s): Father at age 72 from a cardiac arrest thought to be due to a myocardial infarction. Sister(s) Additional Family Medical History / Comment(s): Patient has 2 sisters with no major medical problems. Patient does not have any brothers. Patient has 2 adult children with no major medical problems. Patient is only family member with MS. General Exam Limitations: no limitations General appearance: alert, in no apparent distress Head exam: Present: atraumatic, normocephalic, normal inspection Eye exam: Present: normal appearance, PERRL, EOMI. Absent: scleral icterus, conjunctival injection, periorbital swelling ENT exam: Present: normal exam, mucous membranes moist Neck exam: Present: normal inspection. Absent: tenderness, meningismus, lymphadenopathy Respiratory exam: Present: wheezes, decreased breath sounds. Absent: respiratory distress, rales, rhonchi, stridor Cardiovascular Exam: Present: regular rate, normal rhythm, normal heart sounds. Absent: systolic murmur, diastolic murmur, rubs, gallop, clicks GI/Abdominal exam: Present: soft, normal bowel sounds. Absent: distended, tenderness, guarding, rebound, rigid Extremities exam: Present: normal inspection, full ROM, normal capillary refill. Absent: tenderness, pedal edema, joint swelling, calf tenderness Back exam: Present: normal inspection Neurological exam: Present: alert, oriented X3, CN II-XII intact Psychiatric exam: Present: normal affect, normal mood Skin exam: Present: warm, dry, intact, normal color. Absent: rash Course Vital Signs 08/09/19 08/09/19 08/09/19 10:57 10:59 11:01 Temperature 100.2 F H Pulse Rate 98 Respiratory 24 24 Rate Blood Pressure 125/87 O2 Sat by Pulse 85 L 95 Oximetry 08/09/19 11:49 Temperature Pulse Rate Respiratory Rate Blood Pressure O2 Sat by Pulse 94 L Oximetry Medical Decision Making - Medical Decision Making Upon arrival the patient is placed into room 4. A thorough history and physical exam was performed. Proper PPE was worn as the patient is febrile complaining of cough and shortness of breath. The patient does arrive and has a temp of 100.2. I did review the patient's record and she did have a CT of her chest performed yesterday. Her Covid swab was damaged in transfer and therefore we repeated it. I repeated laboratory studies as well. Patient's white blood cell count is 13.5. LDH is 751. Portable chest x-ray was performed and continues to demonstrate hazy densities in the mid and lower lungs. The patient is requiring 3 L of oxygen at this time to maintain saturation at 94%. As the patient does report worsening of her symptoms and to call discuss case or Dr. Thomason. The patient will be placed on Zithromax at this time. She will also be given a gram of steroids for her possible MS exacerbation. She requests that Dr. Cuevas, Dr. Mello and Dr. Javier be placed on consult. Covid precautions are in place. Patient is currently awaiting a bed on the floor - Lab Data Result diagrams: 08/11/19 09:00 08/10/19 08:00 Lab Results 08/09/19 08/09/19 08/09/19 Range/Units 11:30 11:30 11:30 WBC 13.5 H (3.8-10.6) k/uL RBC 4.19 (3.80-5.40) m/uL Hgb 13.2 (11.4-16.0) gm/dL Hct 42.2 (34.0-46.0) % MCV 100.7 H (80.0-100.0) fL MCH 31.4 (25.0-35.0) pg MCHC 31.2 (31.0-37.0) g/dL RDW 13.0 (11.5-15.5) % Plt Count 274 (150-450) k/uL Neutrophils % 68 % Lymphocytes % 22 % Monocytes % 4 % Eosinophils % 3 % Basophils % 1 % Neutrophils # 9.2 H (1.3-7.7) k/uL Lymphocytes # 3.0 (1.0-4.8) k/uL Monocytes # 0.6 (0-1.0) k/uL Eosinophils # 0.4 (0-0.7) k/uL Basophils # 0.1 (0-0.2) k/uL Hypochromasia Slight D-Dimer 0.30 (<0.60) mg/L FEU Sodium 136 L (137-145) mmol/L Potassium 3.9 (3.5-5.1) mmol/L Chloride 94 L (98-107) mmol/L Carbon Dioxide 38 H (22-30) mmol/L Anion Gap 4 mmol/L BUN 7 (7-17) mg/dL Creatinine 0.52 (0.52-1.04) mg/dL Est GFR (CKD-EPI)AfAm >90 (>60 ml/min/1.73 sqM) Est GFR (CKD-EPI)NonAf >90 (>60 ml/min/1.73 sqM) Glucose 104 H (74-99) mg/dL Plasma Lactic Acid Adalid (0.7-2.0) mmol/L Calcium 8.6 (8.4-10.2) mg/dL Total Bilirubin 0.4 (0.2-1.3) mg/dL AST 27 (14-36) U/L ALT 22 (4-34) U/L Alkaline Phosphatase 93 (38-126) U/L Lactate Dehydrogenase 751 H (313-618) U/L Total Protein 6.2 L (6.3-8.2) g/dL Albumin 3.8 (3.5-5.0) g/dL Procalcitonin (0.02-0.09) ng/mL Coronavirus (PCR) (Not Detected) 08/09/19 08/09/19 08/09/19 Range/Units 11:30 11:30 11:30 WBC (3.8-10.6) k/uL RBC (3.80-5.40) m/uL Hgb (11.4-16.0) gm/dL Hct (34.0-46.0) % MCV (80.0-100.0) fL MCH (25.0-35.0) pg MCHC (31.0-37.0) g/dL RDW (11.5-15.5) % Plt Count (150-450) k/uL Neutrophils % % Lymphocytes % % Monocytes % % Eosinophils % % Basophils % % Neutrophils # (1.3-7.7) k/uL Lymphocytes # (1.0-4.8) k/uL Monocytes # (0-1.0) k/uL Eosinophils # (0-0.7) k/uL Basophils # (0-0.2) k/uL Hypochromasia D-Dimer (<0.60) mg/L FEU Sodium (137-145) mmol/L Potassium (3.5-5.1) mmol/L Chloride (98-107) mmol/L Carbon Dioxide (22-30) mmol/L Anion Gap mmol/L BUN (7-17) mg/dL Creatinine (0.52-1.04) mg/dL Est GFR (CKD-EPI)AfAm (>60 ml/min/1.73 sqM) Est GFR (CKD-EPI)NonAf (>60 ml/min/1.73 sqM) Glucose (74-99) mg/dL Plasma Lactic Acid Adalid 1.1 (0.7-2.0) mmol/L Calcium (8.4-10.2) mg/dL Total Bilirubin (0.2-1.3) mg/dL AST (14-36) U/L ALT (4-34) U/L Alkaline Phosphatase (38-126) U/L Lactate Dehydrogenase (313-618) U/L Total Protein (6.3-8.2) g/dL Albumin (3.5-5.0) g/dL Procalcitonin 0.13 H (0.02-0.09) ng/mL Coronavirus (PCR) Not Detected (Not Detected) - EKG Data EKG Comments: EKG demonstrates a normal sinus rhythm with a ventricular rate of 95. UT interval 148. QRS 86. QTC of 459. No acute ST segment elevations or depressions concerning for ischemic changes. Inverted T-wave in aVL Disposition Clinical Impression: COPD with exacerbation, Suspected COVID-19 virus infection, Fever, Hypoxia, Multiple sclerosis exacerbation Disposition: ADMITTED IP TO THIS HOSP Condition: Good Is patient prescribed a controlled substance at d/c from ED?: No Decision to Admit Reason: Admit from EC Decision Date: 08/09/19 Decision Time: 13:26
--- NOTE | 2019-08-09 11:28 | XR ---
EXAMINATION TYPE: XR chest 1V portable DATE OF EXAM: 08/09/2019 Comparison: 08/08/2019 Clinical History: 53-year-old female with cough, Suspected COVID-19 pneumonia Findings: Heart borderline enlarged. Hazy mid and lower lung densities related to overlying soft tissue. No und erlying roldan consolidation or pleural effusion. Impression: Exam limitations due to portable technique and large patient body habitus. This casts hazy densities in the mid and lower lungs. No roldan progressive consolidation as compared to the CT of 08/08/2019. Con tinued follow-up as indicated.
[2019-08-09 11:51] LABS: Basophils # (A) 0.1 k/uL (0-0.2); Basophils % (A) 1 %; Eosinophils # (A) 0.4 k/uL (0-0.7); Eosinophils % (A) 3 %; HCT 42.2 % (34.0-46.0); HGB 13.2 gm/dL (11.4-16.0); Hypochromasia Slight; Lymphocytes % (A) 22 %; MCH 31.4 pg (25.0-35.0); MCHC 31.2 g/dL (31.0-37.0); MCV 100.7 fL (80.0-100.0); Mean Platelet Volume 8.5; Monocytes # (A) 0.6 k/uL (0-1.0); Monocytes % (A) 4 %; Neutrophils # (A) 9.2 k/uL (1.3-7.7); Neutrophils % (A) 68 %; Platelet Count 274 k/uL (150-450); RBC 4.19 m/uL (3.80-5.40); WBC 13.5 k/uL (3.8-10.6)
[2019-08-09 12:01] LABS: ALT 22 U/L (4-34); African American GFR (CKD) >90 (>60 ml/min/1.73 sqM); Albumin 3.8 g/dL (3.5-5.0); Anion Gap 4 mmol/L; Blood Urea Nitrogen 7 mg/dL (7-17); Calcium 8.6 mg/dL (8.4-10.2); Carbon Dioxide 38 mmol/L (22-30); Chloride 94 mmol/L (98-107); Glucose 104 mg/dL (74-99); Non-African American GFR(CKD) >90 (>60 ml/min/1.73 sqM); Sodium 136 mmol/L (137-145); Total Bilirubin 0.4 mg/dL (0.2-1.3); Total Protein 6.2 g/dL (6.3-8.2)
[2019-08-09 12:10] LABS: AST 27 U/L (14-36); Alkaline Phosphatase 93 U/L (38-126); LDH 751 U/L (313-618); Potassium 3.9 mmol/L (3.5-5.1)
[2019-08-09] MEDS ORDERED: AZITHROMYCIN 500 MG in SODIUM CHLORIDE 0.9% 250 ML IVPB STA (13:23)
[2019-08-09] MEDS ORDERED: methylPREDNISolone SOD SUCCI 125 MG/2 ML VIAL IV STA (13:24)
[2019-08-09] MEDS ORDERED: NALOXONE 0.4 MG/ML 1 ML VIAL IV PRN (13:26)
[2019-08-09] MEDS ORDERED: ACETAMINOPHEN TAB 325 MG TAB PO PRN (13:26)
[2019-08-09] MEDS ORDERED: FLUTICASONE 50MCG/SPRAY NASAL 16GM EA NOSTRIL PRN (13:36)
[2019-08-09] MEDS ORDERED: methylPREDNISolone SOD SUCC 1,000 MG in SODIUM CHLORIDE 0.9% 250 ML IVPB STA (13:40)
[2019-08-09] MEDS ORDERED: GABAPENTIN 400 MG CAP PO SCH (16:00)
--- NOTE | 2019-08-09 16:29 | P.CNPUL ---
History of Present Illness Consult date: 08/09/19 Reason for consult: pneumonia Chief complaint: Fever cough and shortness of breath History of present illness: This is a 53-year-old -[place] female, known to have history of multiple medical problems including MS, COPD, fibromyalgia, hypertension, degenerative joint disease, chronic occipital neuralgia, optic neuritis, chronic hypoxic respiratory failure maintained normally on 2 L of oxygen history of chronic bronchitis, uterine cancer and previous hysterectomy, patient presented to the emergency room with 1 week history of multiple pulmonary symptoms including cough, productive with whitish phlegm, shortness of breath, and fever. Patient notified her primary care physician, and he recommended Augmentin over the phone. She took Augmentin for the last few days, however she continues to have fever cough and shortness of breath. Patient normally sees an urologist/Dr. Ramirez for her MS. At any rate considering her pulmonary symptoms, patient was seen in the ER, chest x-ray showed hazy densities in the mid and lower lungs bilaterally. No evidence of consolidation, however possibility of covid 19 pneumonitis was raised, and patient had basically classical symptoms including the cough, shortness of breath, the fever, and generalized body aches and pains. Patient was admitted, placed on treatment, and I was asked to see her on consultation. Presently the patient is afebrile, she is a temp of 98.2 she is in no distress, she is on nasal cannula at 2.5 L/m, and O2 saturation is 96%. Review of Systems Constitutional: Fever and generalized aches and pains. HEENT: Denies any sore throat denies any nasal congestion, however she had cold- like symptoms for few weeks prior to her pulmonary symptoms as noted in the HPI. Pulmonary: As noted in HPI. Mostly cough, fever, shortness of breath. Cardiac: Negative GI: Denies any GI symptoms including nausea vomiting diarrhea melena no hematemesis. Genitourinary: Negative Musculoskeletal: Aches and pains Skin: Negative Hematologic: Negative Neurologic: History of MS, maintain on steroids. Psychiatric: No symptoms of depression. She does have previous history of depression. Endocrine: Denies any heat or cold intolerance. Past Medical History Past Medical History: Asthma, Cancer, COPD, Eye Disorder, Fibromyalgia, GERD/Reflux, Hearing Disorder / Deafness, Hypertension, Memory Impairment, Neurologic Disorder, Osteoarthritis (OA), Pneumonia, Syncope Additional Past Medical History / Comment(s): MS relapsing/remitting type, dysphagia/stuttering with exacerbation, chronic bilateral eye pain/optic neuritis/ poor vision, cataracts bilaterally, chronic occipital neuralgia, osteoporosis, RLS, chronic hypoxic respiratory failure with home oxygen 2L/[place] prn, chronic bronchitis, immunocompromised, elevated blood sugar with steroid use, DJD bilateral knees, arthritis bilateral shoulders/hips, chronic pain, anemia, insomnia, uterine cancer with hysterectomy/radiation, heart murmur, mild cognitive impairment, chronic vertigo, falls, rheumatic fever as child, tinnitis bilaterally, allergic rhinitis. History of Any Multi-Drug Resistant Organisms: None Reported Past Surgical History: Bladder Surgery, Heart Catheterization, Hysterectomy Additional Past Surgical History / Comment(s): Nerve blocks, bladder suspension. Past Anesthesia/Blood Transfusion Reactions: No Reported Reaction Additional Past Anesthesia/Blood Transfusion Reaction / Comment(s): mild clausterphobia Smoking Status: Current every day smoker - Past Family History Mother Family Medical History: CVA/TIA, Myocardial Infarction ([place]) Additional Family Medical History / Comment(s): Mother is alive at age 74 with history of brain aneurysm, 3 strokes and 2 myocardial infarctions. Brain aneurysms run on mother's side of family Father Additional Family Medical History / Comment(s): Father at age 72 from a cardiac arrest thought to be due to a myocardial infarction. Sister(s) Additional Family Medical History / Comment(s): Patient has 2 sisters with no major medical problems. Patient does not have any brothers. Patient has 2 adult children with no major medical problems. Patient is only family member with MS. Medications and Allergies Home Medications Medication Instructions Recorded Confirmed Type Aspirin 81 mg PO DAILY 02/20/14 08/09/19 History LORazepam [Ativan] 1 mg PO Q8H PRN 02/20/14 08/09/19 History Verapamil HCl [Calan] 120 mg PO DAILY 02/20/14 08/09/19 History Gabapentin [Neurontin] 1,200 mg PO TID 08/19/16 08/09/19 History Butalb/APAP/Caff 50-325-40Mg 1 tab PO Q8H PRN 03/25/17 08/09/19 History [Fioricet 50-325-40] oxyCODONE-APAP 10-325MG [Percocet 1 tab PO TID PRN 01/28/18 08/09/19 History 10-325 mg] rOPINIRole HCL [Requip] 0.25 mg PO TID #90 tab 01/31/18 08/09/19 Rx Budesonide/Formoterol Fumarate 2 puff INHALATION RT-BID 05/06/18 08/09/19 History [Symbicort 160-4.5 Mcg Inhaler] Cholecalciferol [Vitamin D3 (25 2,000 unit PO DAILY 05/07/18 08/09/19 History Mcg = 1000 Iu)] Multivitamins, Thera [Multivitamin 1 tab PO DAILY 05/07/18 08/09/19 History (formulary)] PARoxetine [Paxil] 40 mg PO DAILY tab 05/09/18 08/09/19 Rx Pantoprazole Sodium [Protonix] 40 mg PO BID 10/31/18 08/09/19 History Ipratropium-Albuterol Nebulize 3 ml INHALATION RT-QID PRN 11/22/18 08/09/19 History [Duoneb 0.5 mg-3 mg/3 ml Soln] Memantine [Namenda] 10 mg PO BID 11/22/18 08/09/19 History Montelukast [Singulair] 10 mg PO DAILY 11/22/18 08/09/19 History Hydrochlorothiazide [Hydrodiuril] 25 mg PO DAILY tab 11/26/18 08/09/19 Rx Nicotine 21Mg/24Hr Patch [Habitrol] 1 patch TRANSDERM DAILY #30 patch 11/26/18 08/09/19 Rx Fluticasone Nasal [place] [Flonase 2 spray EA NOSTRIL DAILY PRN 04/28/19 08/09/19 History Nasal [place]] Methocarbamol [Robaxin-750] 750 mg PO BID 04/28/19 08/09/19 History Folic Acid 1 mg PO DAILY #30 tab 05/02/19 08/09/19 Rx busPIRone HCl [Buspar] 10 mg PO TID #90 tab 05/02/19 08/09/19 Rx Promethaz-Cod 6.25-10 mg/5 ml 5 ml PO Q6H PRN 07/29/19 08/09/19 History [Phenergan with Codeine] Amoxicillin/Potassium Clav 1 tab PO BID 08/08/19 08/09/19 History [Augmentin 875-125 Tablet] predniSONE 50 mg PO DAILY #5 tablet 08/08/19 08/09/19 Rx Albuterol Sulfate [Ventolin HFA] 1 - 2 puff INHALATION Q6H PRN 08/09/19 08/09/19 History Allergies Allergy/AdvReac Type Severity Reaction Status Date / Time baclofen AdvReac URINARY Verified 08/09/19 11:34 ISSUES dexamethasone [From Decadron] AdvReac "THOMPSON Verified 08/09/19 11:34 SKIN"/DEHYDRATION Physical Exam Vitals: Vital Signs Temp Pulse Pulse Resp BP BP Pulse Ox 08/09/19 15:00 98.2 F 100 20 130/86 96 08/09/19 13:59 103 H 16 132/76 95 08/09/19 11:49 94 L 08/09/19 11:01 24 08/09/19 10:59 95 08/09/19 10:57 100.2 F H 98 24 125/87 85 L Intake and Output 08/09/19 08/09/19 08/09/19 06:59 14:59 22:59 Other: Weight 105.233 kg Physical Exam: Revealed a 53-year-old female obese, in no distress. Head: Cushingoid, no neck masses, no JVD, no stridor, moist mucous membranes. HEENT:[Neck is supple.] [No neck masses.] [No thyromegaly.] [No JVD.] Chest: [Symmetrical chest expansion, crackles at the bases. No rhonchi and no wheezes. Cardiac Exam: [Normal S1 and S2, no S3 gallop, no murmur.] Abdomen: [Obese, Soft, nontender, no megaly, no rebound, no guarding, normal bowel sounds.] Extremities: [No clubbing, no edema, no cyanosis.] Neurological Exam: [No focal neurologic deficit.] Alert and oriented 3. Psychiatric: Normal mood, affect and normal mental status examination. Skin: No rashes. Musculoskeletal: No deformities and no limitation in range of motion. Results - Laboratory Findings CBC and BMP: 08/09/19 11:30 08/09/19 11:30 PT/INR, D-dimer D-Dimer 0.30 mg/L FEU (<0.60) 08/09/19 11:30 Abnormal lab findings: Abnormal Labs 08/09/19 08/09/19 11:30 11:30 WBC 13.5 H MCV 100.7 H Neutrophils # 9.2 H Sodium 136 L Chloride 94 L Carbon Dioxide 38 H Glucose 104 H Lactate Dehydrogenase 751 H Total Protein 6.2 L - Diagnostic Findings Chest x-ray: image reviewed (As noted in HPI.) Assessment and Plan Assessment: Impression: Suspect covid 19 pneumonitis. History of multiple sclerosis. History of fibromyalgia. History of COPD. History of optic neuritis. History of osteoporosis. History of chronic hypoxic respiratory failure secondary to COPD. Recommendation: Patient was started on hydroxychloroquine. Continue Zithromax. Continue inhalers. IV Solu-Medrol. Infectious disease consultation. Resume home meds. Neurologic on consultation. We'll continue to follow. Time with Patient: Greater than 30
--- NOTE | 2019-08-09 16:51 | P.CNNES ---
History of Present Illness Consult date: 08/09/19 Requesting physician: Jennifer Beltre Reason for Consult: MS exacerbation, community acquired versus viral pneumonia History of Present Illness: Patient is a 53-year-old female, known to me from previous admission from Apr, when she has presented with frequent falls. Patient has history of MS diagnosed 7 years ago after she was having recurrent falls. Patient has "signs of MS" in her brain and spine. Patient has previously tried Copaxone, and Tecfidera. Patient has severe side effects from Tecfidera. She now has been started on Ocrevus, which she received first dose in July 2018. The second dose she received on 04/06/2019. Patient came to the hospital yesterday because of cough and shortness of breath of 4 days duration. She also had fever. She did mention in the ER the patient was having flareup of MS and also also having jerking movement which is normal for her with MS. Patient underwent Chest x-ray showed hazy densities in the mid and lower lung schwarz. No roldan progressive consolidation as compared to the CT of 08/08/2019. EKG shows normal sinus rhythm. CT of the chest showed small areas of ground glass infiltrate right lower and left lower lobe. Developing infiltrate start excluded. The overall appearance however is improved related to prior examination. Patient was already on Augmentin as outpatient which was recommended to be continued and also given prednisone 50 mg daily for 5 days, and patient was sent home for self quarantine. Today patient came back to the E [facility] for worsening cough and shortness of breath. She is diagnosed with pneumonia. Patient also felt that her MS flareup was getting worse, with increased weakness all over, and she suffered from a fall today, in the bathroom and landed on her tailbone. Denies any loss of consciousness. She came back to the ER in ambulance. Patient states that she is having a pounding headache, uncontrolled movement in her arms and legs, speech is acting up, she is twitching. She is noticing burning and tingling in the feet and legs. She feels like she is walking on a hot coal. She admits to coughing started recently with fever and chills. She is also short of breath. She denies any contact with Covid patients. Patient follows up with Dr. Bates as outpatient. Her weakness has got worse and she suffered from a fall today, in the bathroom and landed on her tailbone. Denies any loss of consciousness. Patient has been admitted for possible suspected Covid infection. Review of Systems As mentioned above in detail. Generalized weakness, myalgias, fever or chills. Shortness of breath, cough. All other review of systems unremarkable. Past Medical History Past Medical History: Asthma, Cancer, COPD, Eye Disorder, Fibromyalgia, GERD/Reflux, Hearing Disorder / Deafness, Hypertension, Memory Impairment, Neurologic Disorder, Osteoarthritis (OA), Pneumonia, Syncope Additional Past Medical History / Comment(s): MS relapsing/remitting type, dysphagia/stuttering with exacerbation, chronic bilateral eye pain/optic neuritis/ poor vision, cataracts bilaterally, chronic occipital neuralgia, osteoporosis, RLS, chronic hypoxic respiratory failure with home oxygen 2L/NC prn, chronic bronchitis, immunocompromised, elevated blood sugar with steroid use, DJD bilateral knees, arthritis bilateral shoulders/hips, chronic pain, anemia, insomnia, uterine cancer with hysterectomy/radiation, heart murmur, mild cognitive impairment, chronic vertigo, falls, rheumatic fever as child, tinnitis bilaterally, allergic rhinitis. History of Any Multi-Drug Resistant Organisms: None Reported Past Surgical History: Bladder Surgery, Heart Catheterization, Hysterectomy Additional Past Surgical History / Comment(s): Nerve blocks, bladder suspension. Past Anesthesia/Blood Transfusion Reactions: No Reported Reaction Additional Past Anesthesia/Blood Transfusion Reaction / Comment(s): mild cla usterphobia Smoking Status: Current every day smoker - Past Family History Mother Family Medical History: CVA/TIA, Myocardial Infarction ([place]) Additional Family Medical History / Comment(s): Mother is alive at age 74 with history of brain aneurysm, 3 strokes and 2 myocardial infarctions. Brain aneurysms run on mother's side of family Father Additional Family Medical History / Comment(s): Father at age 72 from a cardiac arrest thought to be due to a myocardial infarction. Sister(s) Additional Family Medical History / Comment(s): Patient has 2 sisters with no major medical problems. Patient does not have any brothers. Patient has 2 adult children with no major medical problems. Patient is only family member with MS. Medications and Allergies Home Medications Medication Instructions Recorded Confirmed Type Aspirin 81 mg PO DAILY 02/20/14 08/09/19 History LORazepam [Ativan] 1 mg PO Q8H PRN 02/20/14 08/09/19 History Verapamil HCl [Calan] 120 mg PO DAILY 02/20/14 08/09/19 History Gabapentin [Neurontin] 1,200 mg PO TID 08/19/16 08/09/19 History Butalb/APAP/Caff 50-325-40Mg 1 tab PO Q8H PRN 03/25/17 08/09/19 History [Fioricet 50-325-40] oxyCODONE-APAP 10-325MG [Percocet 1 tab PO TID PRN 01/28/18 08/09/19 History 10-325 mg] rOPINIRole HCL [Requip] 0.25 mg PO TID #90 tab 01/31/18 08/09/19 Rx Budesonide/Formoterol Fumarate 2 puff INHALATION RT-BID 05/06/18 08/09/19 History [Symbicort 160-4.5 Mcg Inhaler] Cholecalciferol [Vitamin D3 (25 2,000 unit PO DAILY 05/07/18 08/09/19 History Mcg = 1000 Iu)] Multivitamins, Thera [Multivitamin 1 tab PO DAILY 05/07/18 08/09/19 History (formulary)] PARoxetine [Paxil] 40 mg PO DAILY tab 05/09/18 08/09/19 Rx Pantoprazole Sodium [Protonix] 40 mg PO BID 10/31/18 08/09/19 History Ipratropium-Albuterol Nebulize 3 ml INHALATION RT-QID PRN 11/22/18 08/09/19 History [Duoneb 0.5 mg-3 mg/3 ml Soln] Memantine [Namenda] 10 mg PO BID 11/22/18 08/09/19 History Montelukast [Singulair] 10 mg PO DAILY 11/22/18 08/09/19 History Hydrochlorothiazide [Hydrodiuril] 25 mg PO DAILY tab 11/26/18 08/09/19 Rx Nicotine 21Mg/24Hr Patch [Habitrol] 1 patch TRANSDERM DAILY #30 patch 11/26/18 08/09/19 Rx Fluticasone Nasal Jackson [Flonase 2 spray EA NOSTRIL DAILY PRN 04/28/19 08/09/19 History Nasal Jackson] Methocarbamol [Robaxin-750] 750 mg PO BID 04/28/19 08/09/19 History Folic Acid 1 mg PO DAILY #30 tab 05/02/19 08/09/19 Rx busPIRone HCl [Buspar] 10 mg PO TID #90 tab 05/02/19 08/09/19 Rx Promethaz-Cod 6.25-10 mg/5 ml 5 ml PO Q6H PRN 07/29/19 08/09/19 History [Phenergan with Codeine] Amoxicillin/Potassium Clav 1 tab PO BID 08/08/19 08/09/19 History [Augmentin 875-125 Tablet] predniSONE 50 mg PO DAILY #5 tablet 08/08/19 08/09/19 Rx Albuterol Sulfate [Ventolin HFA] 1 - 2 puff INHALATION Q6H PRN 08/09/19 08/09/19 History Allergies Allergy/AdvReac Type Severity Reaction Status Date / Time baclofen AdvReac URINARY Verified 08/09/19 11:34 ISSUES dexamethasone [From Decadron] AdvReac "THOMPSON Verified 08/09/19 11:34 SKIN"/DEHYDRATION Physical Examination - Vital Signs Vital Signs: Vital Signs Temp Pulse Resp BP Pulse Ox 08/09/19 13:59 103 H 16 132/76 95 08/09/19 11:49 94 L 08/09/19 11:01 24 08/09/19 10:59 95 08/09/19 10:57 100.2 F H 98 24 125/87 85 L Intake and Output 08/09/19 08/09/19 08/09/19 06:59 14:59 22:59 Other: Weight 105.233 kg On examination patient is a middle aged Afro-Lao female, in no acute distress. She is alert and awake, fully oriented. Speech and language functions are normal. Attention and concentration fund of knowledge is adequate. On cranial examination pupils are round and reactive to light, visual schwarz are full, face is symmetric, tongue protrudes in the midline. Palatal elevation and sensation normal. On muscle strength patient is generalized weak in the arms and legs. Her right arm appears slightly more weaker than the left, but patient has decreased endurance and decreased effort all over noticeable, therefore difficult to assess for overall strength. Reflexes symmetric 2+ and plantars are withdrawal bilaterally. No clonus. Sensory touch is equal. No obvious ataxia for [id number] testing. Tone and bulk of muscles normal. Patient has mild myoclonic jerks of outstretched hands noticeable. Results Her liver panel is normal. - Laboratory Findings CBC and BMP: 08/09/19 11:30 08/09/19 11:30 Abnormal Lab Findings: Abnormal Labs 08/09/19 08/09/19 11:30 11:30 WBC 13.5 H MCV 100.7 H Neutrophils # 9.2 H Sodium 136 L Chloride 94 L Carbon Dioxide 38 H Glucose 104 H Lactate Dehydrogenase 751 H Total Protein 6.2 L Assessment and Plan Assessment: * 53-year-old female with relapsing remitting MS, admitted with cough, fever, shortness of breath and generalized weakness. Patient has abnormal chest x- ray. Patient is a COVID suspected this time. Her generalized weakness is lik kimberly related to acute febrile illness which can unmask old MS lesions. Cannot rule out superimposed MS exacerbation. * Obesity * History of folate, B6 and vitamin D deficiency. Plan: * At present patient's acute issue is pneumonia, rule out COVID infection. * Her generalized weakness is likely related to diffuse weakness related to acute febrile illness. Although cannot rule out MS exacerbation at this time. * I would optimize treatment for pneumonia/COVID at this time. * Once her pulmonary condition comes under control, and if she continues to have obvious weakness, or signs of MS exacerbation, only then I would consider treatment with high-dose Solu-Medrol. At present patient is on Solu-Medrol 60 mV IV every 6 hours, which will be continued. * Neurology will follow clinically.
[2019-08-09] MEDS: busPIRone HCl 10 MG TAB PO SCH ×2 (17:13→21:12)
[2019-08-09] MEDS: PANTOPRAZOLE 40 MG TABLET PO SCH (17:13)
[2019-08-09] MEDS: GABAPENTIN 600MG PO SCH ×2 (17:13→21:56)
[2019-08-09] MEDS: LORazepam 1 MG TAB PO PRN (17:21)
[2019-08-09] MEDS: oxyCODONE-APAP 10-325MG 1 EACH TAB PO PRN (17:21)
[2019-08-09] MEDS: SYMBICORT 160-4.5 MCG INHALER INHALATION SCH (19:59)
[2019-08-09] MEDS: ALBUTEROL HFA INHALER INHALATION PRN (19:59)
[2019-08-09] MEDS: NICOTINE 21MG/24HR PATCH TRANSDERM SCH (20:12)
[2019-08-09] MEDS: MEMANTINE 10 MG TAB PO SCH (20:12)
[2019-08-09] MEDS ORDERED: AMOXIC-POT CLAV 875-125MG 1 EACH TAB PO SCH (21:00)
[2019-08-09] MEDS ORDERED: METHOCARBAMOL 750 MG TAB PO SCH (21:00)
[2019-08-09] MEDS: MELATONIN 5 MG TABLET PO SCH (21:12)
[2019-08-09] MEDS: HYDROXYCHLOROQUINE SULFATE 200 MG TAB PO SCH (21:12)
[2019-08-09] MEDS: METHOCARBAMOL 750 MG TAB PO SCH (21:12)
[2019-08-09] MEDS: BUTALB/APAP/CAFF 50-325-40MG TAB PO PRN (21:56)
[2019-08-10] MEDS: oxyCODONE-APAP 10-325MG 1 EACH TAB PO PRN ×4 (01:36→23:34)
[2019-08-10] MEDS: LORazepam 1 MG TAB PO PRN ×4 (01:36→23:32)
[2019-08-10] MEDS: methylPREDNISolone SOD SUCCI 125 MG/2 ML VIAL IV SCH ×4 (05:20→23:32)
[2019-08-10 07:15] LABS: HCT 42.9 % (34.0-46.0); HGB 13.2 gm/dL (11.4-16.0); Hypochromasia Slight; MCH 31.5 pg (25.0-35.0); MCHC 30.8 g/dL (31.0-37.0); MCV 102.2 fL (80.0-100.0); Macrocytosis Slight; Mean Platelet Volume 9.3; Platelet Count 252 k/uL (150-450); WBC 13.4 k/uL (3.8-10.6)
--- NOTE | 2019-08-10 07:24 | CONS ---
CONSULTATION DATE OF SERVICE: 08/09/2019 REASON FOR CONSULTATION: Possible COVID-19 pneumonia. HISTORY OF PRESENT ILLNESS: The patient is a 53-year-old female with a past medical history significant for multiple sclerosis, COPD on home O2, hypertension, presented to the ER with chief complaints of increasing shortness of breath and cough. The patient's symptom has been getting worse for about 3 to 4 days. The patient had been complaining of some headache, but no of runny nose but no sore throat. Denies having any chest pain. She did have shortness of breath and cough which has been moderate in intensity with occasional sputum production. No hemoptysis. No nausea, no vomiting. No abdominal pain. No diarrhea. The patient subsequently was evaluated by the ER physician on arrival to the ER. The patient did have a low-grade fever of 100.2. The patient did have elevated white count of 13.5 with no lymphopenia. CRP elevated 48.9 as well as procalcitonin. The patient did have a chest x-ray a which did show hazy densities in the mid and lower lungs. The patient was admitted to hospital with concern for possible COVID-19 infection. Infectious Disease was consulted for further recommendations. Currently being treated with Rocephin, Zithromax, and Plaquenil. REVIEW OF SYSTEMS: Positive points have been mentioned in HPI. Rest of the systems are negative. PAST MEDICAL HISTORY: Her past medical history significant for multiple sclerosis, COPD on home O2, hypertension, previous history of pneumonia, osteoporosis, anxiety, depression. PAST SURGICAL HISTORY: Bladder surgery, heart catheterization, hysterectomy. SOCIAL HISTORY: Current everyday smoker. No drinking or drug use. FAMILY HISTORY: No pertinent findings noticed. ALLERGIES: Allergies to BACLOFEN and DEXAMETHASONE. MEDICATIONS: Medications include the patient is currently on Tylenol, Fioricet, Ventolin, aspirin, Zithromax, Rocephin, hydrochlorothiazide, Plaquenil, Ativan, melatonin, Namenda, Robaxin, Solu-Medrol, Singulair, Theragran, Narcan, nicotine patch. PHYSICAL EXAMINATION: On examination, her blood pressure is 105/67 with a pulse of 82, temperature 98.4. She is 96% on room air. General description is a middle-aged female up in the bed in no distress. No tachypnea or accessory muscle of respiration use. HEENT: Examination shows no pallor or scleral icterus. Oral mucous membrane is dry. No pharyngeal erythema or thrush. NECK: Trachea central. No thyromegaly. LUNGS: Unlabored breathing, decreased intensity of breath sounds. Occasional wheeze. HEART: S1, S2. Regular rate and rhythm. ABDOMEN: Soft, no tenderness. EXTREMITIES: No edema of feet. SKIN EXAMINATION: No rash or mass palpable. NEUROLOGIC: The patient is awake, alert, oriented x3. Mood and affect normal. LABS: Hemoglobin 13.2, white count 13.5, BUN of 7, creatinine 0.52. LDH is 751. CRP is 48.9. Procalcitonin 0.13. Chest x-ray report as mentioned above. DIAGNOSTIC IMPRESSION AND PLAN: The patient presented to hospital with increasing shortness of breath and cough in this patient who did have a fever with pulmonary infiltrate, elevated procalcitonin, high clinic suspicious for community-acquired pneumonia. Clinically doubt COVID-19 pneumonia as no significant lymphopenia was noticed, but not entirely excluded. PLAN: 1. We will try to obtain sputum for Gram and culture sensitivity. 2. Await COVID-19 testing to be completed. 3. We will keep the patient on Rocephin and Zithromax along with steroids. 4. We will follow on clinical condition and culture to further adjust medication if needed. Thank you for this consultation. Will follow this patient along with you. JOCELINE / ANALILIAN: [id number] /
[2019-08-10 08:37] LABS: African American GFR (CKD) >90 (>60 ml/min/1.73 sqM); Anion Gap 5 mmol/L; Blood Urea Nitrogen 9 mg/dL (7-17); Calcium 9.1 mg/dL (8.4-10.2); Carbon Dioxide 36 mmol/L (22-30); Chloride 98 mmol/L (98-107); Glucose 168 mg/dL (74-99); Non-African American GFR(CKD) >90 (>60 ml/min/1.73 sqM); Sodium 139 mmol/L (137-145)
[2019-08-10] MEDS: HYDROCHLOROTHIAZIDE 25 MG TAB PO SCH (08:52)
[2019-08-10] MEDS: busPIRone HCl 10 MG TAB PO SCH ×3 (08:52→22:27)
[2019-08-10] MEDS: MULTIVITAMINS, THERA 1 EACH TAB PO SCH (08:53)
[2019-08-10] MEDS: PARoxetine 20 MG TAB PO SCH (08:53)
[2019-08-10] MEDS: AZITHROMYCIN 500 MG TAB PO SCH (08:53)
[2019-08-10] MEDS: VERAPAMIL 40 MG TAB PO SCH (08:53)
[2019-08-10] MEDS: MONTELUKAST 10 MG TAB PO SCH (08:53)
[2019-08-10] MEDS: PANTOPRAZOLE 40 MG TABLET PO SCH ×2 (08:53→17:13)
[2019-08-10] MEDS: METHOCARBAMOL 750 MG TAB PO SCH ×3 (08:53→22:27)
[2019-08-10] MEDS: NICOTINE 21MG/24HR PATCH TRANSDERM SCH (08:53)
[2019-08-10] MEDS: FOLIC ACID 1 MG TAB PO SCH (08:53)
[2019-08-10] MEDS: MEMANTINE 10 MG TAB PO SCH ×2 (08:53→22:26)
[2019-08-10] MEDS: ASPIRIN 81 MG PO SCH (08:54)
[2019-08-10] MEDS: HYDROXYCHLOROQUINE SULFATE 200 MG TAB PO SCH (08:54)
[2019-08-10] MEDS ORDERED: AZITHROMYCIN 500 MG TAB PO SCH (09:00)
[2019-08-10] MEDS: BUTALB/APAP/CAFF 50-325-40MG TAB PO PRN ×3 (09:03→23:32)
[2019-08-10] MEDS: ALBUTEROL HFA INHALER INHALATION PRN ×3 (09:09→20:54)
[2019-08-10] MEDS: TIOTROPIUM 18 MCG/PUFF INHALER INHALATION PRN (09:09)
[2019-08-10] MEDS: SYMBICORT 160-4.5 MCG INHALER INHALATION SCH ×2 (09:09→20:54)
[2019-08-10] MEDS: ENOXAPARIN 40 MG/0.4 ML SYRINGE SQ SCH (09:34)
[2019-08-10] MEDS: GABAPENTIN 600MG PO SCH ×3 (09:35→22:26)
[2019-08-10 10:39] LABS: Glucose,Whole Blood 205 mg/dL (75-99)
[2019-08-10] MEDS: INSULIN ASPART (NovoLOG) 100 UNIT/ML VIAL SQ SCH ×3 (12:02→22:25)
--- NOTE | 2019-08-10 13:07 | P.PN ---
Subjective Progress Note Date: 08/10/19 Principal diagnosis: Fever, cough, shortness of breath This is a 53-year-old -[place] female, known to have history of multiple medical problems including MS, COPD, fibromyalgia, hypertension, degenerative joint disease, chronic occipital neuralgia, optic neuritis, chronic hypoxic respiratory failure maintained normally on 2 L of oxygen history of chronic bronchitis, uterine cancer and previous hysterectomy, patient presented to the emergency room with 1 week history of multiple pulmonary symptoms including cough, productive with whitish phlegm, shortness of breath, and fever. Patient notified her primary care physician, and he recommended Augmentin over the phone. She took Augmentin for the last few days, however she continues to have fever cough and shortness of breath. Patient normally sees an urologist/Dr. Ramirez for her MS. At any rate considering her pulmonary symptoms, patient was seen in the ER, chest x-ray showed hazy densities in the mid and lower lungs bilaterally. No evidence of consolidation, however possibility of covid 19 pneumonitis was raised, and patient had basically classical symptoms including the cough, shortness of breath, the fever, and generalized body aches and pains. Patient was admitted, placed on treatment, and I was asked to see her on consultation. Presently the patient is afebrile, she is a temp of 98.2 she is in no distress, she is on nasal cannula at 2.5 L/m, and O2 saturation is 96%. On 08/10/2019 patient seen in follow-up on general medical floor, her code with 19 testing is still pending, overall she states she is feeling better, still wheezy, bronchospastic, she is on 3 L of oxygen with a pulse of 97%, afebrile overnight, afebrile this morning, today's labs have been reviewed, showing white blood cell, fairly stable at 13.4, hemoglobin is 13.2, electrolytes are within normal limits with exception of CO2 which is at 36, BUN is 9, creatinine is 0.48, d-dimer was within normal limits at 0.30, ferritin was normal at 96.4, calcitonin was intermediate at 0.13, LDH was 751, coronary virus was not detected. Objective - Vital Signs Vital signs: Vital Signs Temp 98.3 F 08/10/19 11:13 Pulse 89 08/10/19 11:13 Resp 18 08/10/19 11:13 BP 116/77 08/10/19 11:13 Pulse Ox 97 08/10/19 11:13 Intake & Output 08/09/19 08/10/19 08/10/19 18:59 06:59 18:59 Weight 105.233 kg Other: Voiding Method Toilet # Voids 2 - Exam GENERAL EXAM: Alert, very pleasant, obese -[place]inese female, 3 L of oxygen with a pulse ox of 97% comfortable in no apparent distress. HEAD: Normocephalic/atraumatic. EYES: Normal reaction of pupils, equal size. Conjunctiva pink, sclera white. NOSE: Clear with pink turbinates. THROAT: No erythema or exudates. NECK: No masses, no JVD, no thyroid enlargement, no adenopathy. CHEST: No chest wall deformity. Symmetrical expansion. LUNGS: Equal air entry with diffuse wheezes CVS: Regular rate and rhythm, normal S1 and S2, no gallops, no murmurs, no rubs ABDOMEN: Soft, nontender. No hepatosplenomegaly, normal bowel sounds, no guarding or rigidity. EXTREMITIES: No clubbing, no edema, no cyanosis, 2+ pulses and upper and lower extremities. MUSCULOSKELETAL: Muscle strength and tone normal. SPINE: No scoliosis or deformity SKIN: No rashes CENTRAL NERVOUS SYSTEM: Alert and oriented -3. No focal deficits, tone is normal in all 4 extremities. PSYCHIATRIC: Alert and oriented -3. Appropriate affect. Intact judgment and insight. - Labs CBC & Chem 7: 08/10/19 06:25 08/10/19 08:00 Labs: Abnormal Lab Results - Last 24 Hours (Table) 08/09/19 08/09/19 08/10/19 Range/Units 11:30 18:25 06:25 WBC 13.4 H (3.8-10.6) k/uL MCV 102.2 H (80.0-100.0) fL MCHC 30.8 L (31.0-37.0) g/dL Carbon Dioxide (22-30) mmol/L Creatinine (0.52-1.04) mg/dL Glucose (74-99) mg/dL POC Glucose (mg/dL) (75-99) mg/dL C-Reactive Protein 48.9 H (<10.0) mg/L Procalcitonin 0.13 H (0.02-0.09) ng/mL 08/10/19 08/10/19 Range/Units 08:00 10:37 WBC (3.8-10.6) k/uL MCV (80.0-100.0) fL MCHC (31.0-37.0) g/dL Carbon Dioxide 36 H (22-30) mmol/L Creatinine 0.48 L (0.52-1.04) mg/dL Glucose 168 H (74-99) mg/dL POC Glucose (mg/dL) 205 H (75-99) mg/dL C-Reactive Protein (<10.0) mg/L Procalcitonin (0.02-0.09) ng/mL Assessment and Plan Plan: Assessment: #1. Febrile illness, present on admission, improved, Covid 19 has been ruled out #2. Hazy densities in the mid and lower lungs bilaterally, possibly related to community-acquired pneumonia #3. Acute exacerbation of COPD #4. History of fibromyalgia #5. History of multiple sclerosis #6. History of optic neuritis #7. History of osteoporosis #8. History of chronic hypoxic respiratory failure related to COPD Plan: Covid 19 testing has been negative, we'll continue Rocephin and Zithromax, continue IV steroids, inhalers. Patient is still does become bronchospastic, but no acute distress, she's been afebrile overnight. Follow-up chest x-ray tomorrow, we'll continue to follow I performed a history & physical examination of the patient and discussed their management with my nurse practitioner, Gay Hernandez. I reviewed the nurse pr actitioner's note and agree with the documented findings and plan of care. Lung sounds are positive for diffuse wheezes. The findings and the impression was discussed with the patient. I attest to the documentation by the nurse practitioner. Time with Patient: Less than 30
--- NOTE | 2019-08-10 13:15 | P.HPIM ---
History of Present Illness H&P Date: 08/10/19 This is a 53-year-old female patient of Dr. Tabarse and Dr. Ramirez with a previous medical history significant for relapsing remitting multiple sclerosis, hypertension and hypertensive cardiovascular disease with left ventricular hypertrophy, history of GERD, multiple sclerosis, COPD, asthma, history of osteoporosis, uterine cancer status post surgery, chronic hypoxic respiratory failure on home O2 at 2 L nasal cannula. Patient was most recently hospitalized in April 2019 at which time she presented with acute exacerbation of MS. Patient was seen in the emergency center on August 07 with complaints of fever, productive cough and shortness of breath for 4 days. She had a temperature that time of 100.4 and leukocytosis of 13.8. Chest x-ray was limited to body habitus. CAT scan of the chest revealed small areas of groundglass infiltrate in the right lower lobe. Developing infiltrate is not excluded. Overall appearance is improved from prior exam. Influenza testing was negative and C OVID-19 testing was sent. Patient was discharged home to continue Augmentin and was given prednisone 50 mg daily 5 and recommendations to self quarantine. However, patient developed increasing shortness of breath and cough along with increasing weakness all over concerning for MS flareup. Patient had a fall in the bathroom landing on her tailbone, complains of headache and uncontrolled movement of her arms and legs and twitching, burning and tingling in her feet and legs. She also complains of fever and chills. She states she has had fevers on and off for 3 weeks along with cough. Patient continues to smoke and down to half pack per day. Patient complains of having diarrhea last week. She denies any dysuria. Patient returned to [facility] emergency center for second evaluation. W BC 13.5, hemoglobin 13.2, platelet count 274. D-dimer 0.3. Sodium 136, potassium 3.9, chloride 94, CO2 38, BUN 7 creatinine 0.52. Blood sugar 104. Liver function tests normal. LDH 751, ferritin 96.4. Pro- calcitonin 0.13, C-reactive protein 48.9. Chest x-ray is limited. Hazy densities in the mid and lower lungs. No rodlan progressive consolidation as compared to CAT scan on 46. EKG normal sinus rhythm. Patient admitted to the Medr floor and consult requested with pulmonary medicine, infectious disease and neurology. Review of Systems Constitutional: Reports chills, Reports fatigue, Reports fever, Reports lethargy, Reports malaise Eyes: denies blurred vision, denies pain Ears, nose, mouth and throat: Denies dysphagia, Denies headache, Denies nasal congestion, Denies nasal discharge, Denies sore throat, Denies vertigo Cardiovascular: Reports dyspnea on exertion, Denies chest pain, Denies edema, Denies irregular heart beat, Denies leg edema, Denies lightheadedness, Denies shortness of breath, Denies syncope Respiratory: Reports cough, Reports cough with sputum, Reports dyspnea, Denies excessive sputum, Denies hemoptysis, Denies home oxygen, Denies wheezing Gastrointestinal: Denies abdominal pain, Denies diarrhea, Denies loss of appetite, Denies nausea, Denies vomiting Genitourinary: Denies dysuria, Denies hematuria, Denies urgency, Denies urinary frequency Musculoskeletal: Reports frequent falls, Reports gait dysfunction, Reports muscle weakness, Denies myalgias Integumentary: Denies pruritus, Denies rash, Denies wounds Neurological: Reports tremors, Denies change in mentation, Denies change in speech, Denies numbness, Denies weakness Psychiatric: Denies anxiety, Denies depression Endocrine: Denies fatigue, Denies weight change Past Medical History Past Medical History: Asthma, Cancer, COPD, Eye Disorder, Fibromyalgia, GERD/Reflux, Hearing Disorder / Deafness, Hypertension, Memory Impairment, Neurologic Disorder, Osteoarthritis (OA), Pneumonia, Syncope Additional Past Medical History / Comment(s): MS relapsing/remitting type, dysphagia/stuttering with exacerbation, chronic bilateral eye pain/optic neuritis/ poor vision, cataracts bilaterally, chronic occipital neuralgia, osteoporosis, RLS, chronic hypoxic respiratory failure with home oxygen 2L/NC prn, chronic bronchitis, immunocompromised, elevated blood sugar with steroid use, DJD bilateral knees, arthritis bilateral shoulders/hips, chronic pain, anemia, insomnia, uterine cancer with hysterectomy/radiation, heart murmur, mild cognitive impairment, chronic vertigo, falls, rheumatic fever as child, tinnitis bilaterally, allergic rhinitis. History of Any Multi-Drug Resistant Organisms: None Reported Past Surgical History: Bladder Surgery, Heart Catheterization, Hysterectomy Additional Past Surgical History / Comment(s): Nerve blocks, bladder suspension. Past Anesthesia/Blood Transfusion Reactions: No Reported Reaction Additional Past Anesthesia/Blood Transfusion Reaction / Comment(s): mild clausterphobia Smoking Status: Current every day smoker Additional Past Alcohol Use History / Comment(s): Patient started smoking at age 18 and has smoked on and off since then. She is currently smoking a half pack per day. - Past Family History Mother Family Medical History: CVA/TIA, Myocardial Infarction (HI) Additional Family Medical History / Comment(s): Mother is alive at age 74 with history of brain aneurysm, 3 strokes and 2 myocardial infarctions. Brain aneurysms run on mother's side of family Father Additional Family Medical History / Comment(s): Father at age 72 from a cardiac arrest thought to be due to a myocardial infarction. Sister(s) Additional Family Medical History / Comment(s): Patient has 2 sisters with no major medical problems. Patient does not have any brothers. Patient has 2 adult children with no major medical problems. Patient is only family member with MS. Medications and Allergies Home Medications Medication Instructions Recorded Confirmed Type Aspirin 81 mg PO DAILY 02/20/14 08/09/19 History LORazepam [Ativan] 1 mg PO Q8H PRN 02/20/14 08/09/19 History Verapamil HCl [Calan] 120 mg PO DAILY 02/20/14 08/09/19 History Gabapentin [Neurontin] 1,200 mg PO TID 08/19/16 08/09/19 History Butalb/APAP/Caff 50-325-40Mg 1 tab PO Q8H PRN 03/25/17 08/09/19 History [Fioricet 50-325-40] oxyCODONE-APAP 10-325MG [Percocet 1 tab PO TID PRN 01/28/18 08/09/19 History 10-325 mg] rOPINIRole HCL [Requip] 0.25 mg PO TID #90 tab 01/31/18 08/09/19 Rx Budesonide/Formoterol Fumarate 2 puff INHALATION RT-BID 05/06/18 08/09/19 History [Symbicort 160-4.5 Mcg Inhaler] Cholecalciferol [Vitamin D3 (25 2,000 unit PO DAILY 05/07/18 08/09/19 History Mcg = 1000 Iu)] Multivitamins, Thera [Multivitamin 1 tab PO DAILY 05/07/18 08/09/19 History (formulary)] PARoxetine [Paxil] 40 mg PO DAILY tab 05/09/18 08/09/19 Rx Pantoprazole Sodium [Protonix] 40 mg PO BID 10/31/18 08/09/19 History Ipratropium-Albuterol Nebulize 3 ml INHALATION RT-QID PRN 11/22/18 08/09/19 History [Duoneb 0.5 mg-3 mg/3 ml Soln] Memantine [Namenda] 10 mg PO BID 11/22/18 08/09/19 History Montelukast [Singulair] 10 mg PO DAILY 11/22/18 08/09/19 History Hydrochlorothiazide [Hydrodiuril] 25 mg PO DAILY tab 11/26/18 08/09/19 Rx Nicotine 21Mg/24Hr Patch [Habitrol] 1 patch TRANSDERM DAILY #30 patch 11/26/18 08/09/19 Rx Fluticasone Nasal [place] [Flonase 2 spray EA NOSTRIL DAILY PRN 04/28/19 08/09/19 History Nasal [place]] Methocarbamol [Robaxin-750] 750 mg PO BID 04/28/19 08/09/19 History Folic Acid 1 mg PO DAILY #30 tab 05/02/19 08/09/19 Rx busPIRone HCl [Buspar] 10 mg PO TID #90 tab 05/02/19 08/09/19 Rx Promethaz-Cod 6.25-10 mg/5 ml 5 ml PO Q6H PRN 07/29/19 08/09/19 History [Phenergan with Codeine] Amoxicillin/Potassium Clav 1 tab PO BID 08/08/19 08/09/19 History [Augmentin 875-125 Tablet] predniSONE 50 mg PO DAILY #5 tablet 08/08/19 08/09/19 Rx Albuterol Sulfate [Ventolin HFA] 1 - 2 puff INHALATION Q6H PRN 08/09/19 08/09/19 History Allergies Allergy/AdvReac Type Severity Reaction Status Date / Time baclofen AdvReac URINARY Verified 08/09/19 11:34 ISSUES dexamethasone [From Decadron] AdvReac "THOMPSON Verified 08/09/19 11:34 SKIN"/DEHYDRATION Physical Exam Vitals: Vital Signs Temp Pulse Pulse Resp BP BP Pulse Ox 08/10/19 07:00 98.2 F 77 18 122/77 92 L 08/10/19 04:54 97 08/10/19 02:54 98.2 F 67 20 114/74 97 08/10/19 01:18 96 08/09/19 23:18 98.0 F 72 20 100/62 96 08/09/19 21:16 92 L 08/09/19 19:16 98.4 F 82 20 105/67 96 08/09/19 15:00 98.2 F 100 20 130/86 96 08/09/19 13:59 103 H 16 132/76 95 08/09/19 11:49 94 L 08/09/19 11:01 24 08/09/19 10:59 95 08/09/19 10:57 100.2 F H 98 24 125/87 85 L Intake and Output 08/09/19 08/10/19 08/10/19 22:59 06:59 14:59 Other: Voiding Method Toilet # Voids 2 - Constitutional General appearance: average body habitus, cooperative, no acute distress - EENT Eyes: anicteric sclerae, PERRLA, dentition normal - Neck Neck: normal ROM - Respiratory Respiratory: bilateral: CTA, negative: diminished, dullness - Cardiovascular Rhythm: regular Heart sounds: normal: S1, S2 Abnormal Heart Sounds: no systolic murmur, no diastolic murmur, no rub, no S3 Gallop, no S4 Gallop, no click, no other - Gastrointestinal General gastrointestinal: normal bowel sounds, soft - Integumentary Integumentary: decreased turgor, normal - Neurologic Neurologic: CNII-XII intact, focal deficits (No cranial deficits) - Musculoskeletal Generalized weakness of the upper and lower extremities right arm slightly more weak than left. Musculoskeletal: generalized weakness, strength equal bilaterally Results CBC & Chem 7: 08/10/19 06:25 08/10/19 08:00 Labs: Abnormal Lab Results - Last 24 Hours (Table) 08/09/19 08/09/19 08/09/19 Range/Units 11:30 11:30 11:30 WBC 13.5 H (3.8-10.6) k/uL MCV 100.7 H (80.0-100.0) fL MCHC (31.0-37.0) g/dL Neutrophils # 9.2 H (1.3-7.7) k/uL Sodium 136 L (137-145) mmol/L Chloride 94 L (98-107) mmol/L Carbon Dioxide 38 H (22-30) mmol/L Glucose 104 H (74-99) mg/dL Lactate Dehydrogenase 751 H (313-618) U/L C-Reactive Protein (<10.0) mg/L Total Protein 6.2 L (6.3-8.2) g/dL Procalcitonin 0.13 H (0.02-0.09) ng/mL 08/09/19 08/10/19 Range/Units 18:25 06:25 WBC 13.4 H (3.8-10.6) k/uL MCV 102.2 H (80.0-100.0) fL MCHC 30.8 L (31.0-37.0) g/dL Neutrophils # (1.3-7.7) k/uL Sodium (137-145) mmol/L Chloride (98-107) mmol/L Carbon Dioxide (22-30) mmol/L Glucose (74-99) mg/dL Lactate Dehydrogenase (313-618) U/L C-Reactive Protein 48.9 H (<10.0) mg/L Total Protein (6.3-8.2) g/dL Procalcitonin (0.02-0.09) ng/mL Thrombosis Risk Factor Assmnt - DVT/VTE Prophylaxis DVT/VTE Prophylaxis: Pharmacologic Prophylaxis ordered - Choose All That Apply Any of the Below Risk Factors Present?: Yes Each Factor Represents 1 point: Abnormal pulmonary function (COPD), Obesity (BMI >25), Serious lung disease incl. pneumonia (< 1month) Other Risk Factors: Yes Each Risk Factor Represents 2 Points: Malignancy Other congenital or acquired thrombophilia - If yes, enter type in comment: No Thrombosis Risk Factor Assessment Total Risk Factor Score: 5 Thrombosis Risk Factor Assessment Level: High Risk Assessment and Plan Plan: 1. Pneumonia, suspected COVID-[address] Roberts and Dr. Cuevas appreciated. Covid 19 testing is negative. Patient has been started on hydroxychloroquine, Zithromax, ceftriaxone, and IV Solu-Medrol. 2. Generalized weakness possibly related to acute febrile illness, cannot rule out superimposed MS exacerbation. Consult with neurology appreciated. Recommendations are to optimize pneumonia/Covid treatment. Only consider high- dose Solu-Medrol if she continues to have weakness after respiratory issue is tr eated. Patient is currently on Cytomel dose 60 mg IV every 6 hours. 3. History of relapsing remitting multiple sclerosis. Consult with neurology appreciated. 4. Chronic pain and occipital neuralgia under the care of Dr. Ramirez. Continue gabapentin 1200mg 3 times daily, Percocet one 3 times daily as needed, Fioricet as needed. 5. Hypertension and hypertensive cardiovascular disease. Continue hydrochlorothiazide 25 mg daily, verapamil 120 mg orally once every day. 6. Obesity with possible obstructive sleep apnea and obesity hypoventilation syndrome. Recommend outpatient sleep study 7. Mild intermittent asthma and COPD. Continue albuterol inhaler every 6 hours as needed, Symbicort twice daily, Singulair 10 mg daily, Spiriva daily, Flonase as needed. 8. Fibromyalgia. Continue gabapentin 1200 mg orally 3 times every day. 8. Generalized anxiety. Continue Ativan 1 mg every 8 hours as needed. 9. Recurrent depression. Continue Paxil 40 mg daily. 10. Chronic tobacco use and dependence. Smoking cessation and counseling an increased risk of CAD, CVA, and malignancy. Continue nicotine patch 21 mg once every day. 11. Mild cognitive impairment. Continue patient on Namenda 10 mg orally twice every day. 13. Restless leg syndrome. Continue Requip 0.25 mg 2 times daily 14. DVT prophylaxis. Lovenox 40 mg subcutaneously every 24 hours. 15. GI prophylaxis. Continue with Protonix 40 mg orally twice every day. CODE STATUS: Full code Patient minutes to the hospital for a minimum of 2 night stay. Impression and plan of care have been directed as dictated by the signing physician. Elaine Nguyen nurse practitioner acting as scribe for signing physician.
[2019-08-10 13:52] LABS: Appearance,Urine Clear (Clear); Bilirubin,Urine Negative (Negative); Blood,Urine Negative (Negative); Color,Urine Yellow; Glucose,Urine (UA) 2+ (Negative); Ketones,Urine Negative (Negative); Leukocyte Esterase,Urine Negative (Negative); Nitrite,Urine Negative (Negative); PH, Urine 7.5 (5.0-8.0); Protein,Urine Trace (Negative); Specific Gravity,Urine 1.027 (1.001-1.035); Urobilinogen,Urine <2.0 mg/dL (<2.0)
[2019-08-10 16:42] LABS: Glucose,Whole Blood 184 mg/dL (75-99)
--- NOTE | 2019-08-10 17:47 | P.PN ---
Subjective Progress Note Date: 08/10/19 Patient was very somnolent. She is doing stable. No new neurological symptoms. Objective - Vital Signs Vital signs: Vital Signs Temp 98.2 F 08/10/19 15:00 Pulse 84 08/10/19 15:00 Resp 18 08/10/19 15:00 BP 110/72 08/10/19 15:00 Pulse Ox 95 08/10/19 15:00 Intake & Output 08/09/19 08/10/19 08/10/19 18:59 06:59 18:59 Intake Total 222 Balance 222 Weight 105.233 kg Intake: Oral 222 Other: Voiding Method Toilet # Voids 2 2 - Exam Deferred, as patient was sleeping. I did wake her up, and states feels stable. - Labs CBC & Chem 7: 08/10/19 06:25 08/10/19 08:00 Labs: Abnormal Lab Results - Last 24 Hours (Table) 08/09/19 08/09/19 08/10/19 Range/Units 11:30 18:25 06:25 WBC 13.4 H (3.8-10.6) k/uL MCV 102.2 H (80.0-100.0) fL MCHC 30.8 L (31.0-37.0) g/dL Carbon Dioxide (22-30) mmol/L Creatinine (0.52-1.04) mg/dL Glucose (74-99) mg/dL POC Glucose (mg/dL) (75-99) mg/dL C-Reactive Protein 48.9 H (<10.0) mg/L Procalcitonin 0.13 H (0.02-0.09) ng/mL Urine Protein (Negative) Urine Glucose (UA) (Negative) 08/10/19 08/10/19 08/10/19 Range/Units 08:00 10:37 12:55 WBC (3.8-10.6) k/uL MCV (80.0-100.0) fL MCHC (31.0-37.0) g/dL Carbon Dioxide 36 H (22-30) mmol/L Creatinine 0.48 L (0.52-1.04) mg/dL Glucose 168 H (74-99) mg/dL POC Glucose (mg/dL) 205 H (75-99) mg/dL C-Reactive Protein (<10.0) mg/L Procalcitonin (0.02-0.09) ng/mL Urine Protein Trace H (Negative) Urine Glucose (UA) 2+ H (Negative) 08/10/19 Range/Units 16:41 WBC (3.8-10.6) k/uL MCV (80.0-100.0) fL MCHC (31.0-37.0) g/dL Carbon Dioxide (22-30) mmol/L Creatinine (0.52-1.04) mg/dL Glucose (74-99) mg/dL POC Glucose (mg/dL) 184 H (75-99) mg/dL C-Reactive Protein (<10.0) mg/L Procalcitonin (0.02-0.09) ng/mL Urine Protein (Negative) Urine Glucose (UA) (Negative) Microbiology - Last 24 Hours (Table) 08/09/19 11:30 Blood Culture - Preliminary Blood No Growth after 24 hours Assessment and Plan Assessment: * 53-year-old female with relapsing remitting MS, admitted with cough, fever, shortness of breath and generalized weakness. Patient has abnormal chest x- ray. COVID-19 testing negative. Her generalized weakness is likely related to acute febrile illness which can unmask old MS lesions. Cannot rule out superimposed MS exacerbation. * Obesity * History of folate, B6 and vitamin D deficiency. Plan: * At present patient's acute issue is pneumonia, COVID testing came back negative. * Her generalized weakness is likely related to diffuse weakness related to acute febrile illness. Although cannot rule out MS exacerbation at this time. * I would optimize treatment for pneumonia at this time. * Once her pulmonary condition comes under control, and if she continues to have obvious weakness, or signs of MS exacerbation, only then I would consider sandy atment with high-dose Solu-Medrol. At present patient is on Solu-Medrol 60 mV IV every 6 hours, which will be continued. * Neurology will follow clinically.
[2019-08-10] MEDS ORDERED: HYDROXYCHLOROQUINE SULFATE 200 MG TAB PO SCH (21:00)
[2019-08-10 21:36] LABS: Glucose,Whole Blood 197 mg/dL (75-99)
[2019-08-10] MEDS: MELATONIN 5 MG TABLET PO SCH (22:26)
--- NOTE | 2019-08-10 23:39 | PN ---
PROGRESS NOTE DATE OF SERVICE: 08/10/2019. REASON FOR FOLLOWUP: Pneumonia. INTERVAL HISTORY: The patient is currently afebrile. The patient is breathing comfortably. The patient denies having any chest pain, shortness of breath. Occasional cough. No nausea, no vomiting. No abdominal pain or diarrhea. PHYSICAL EXAMINATION: Blood pressure 110/72 with a pulse of 84, temperature 98.2. She is 95% on 3 L nasal cannula. General description is a middle-aged female up in the bed in no distress. RESPIRATORY SYSTEM: Unlabored breathing with decreased intensity of breath sounds. No wheeze. HEART: S1, S2. Regular rate and rhythm. ABDOMEN: Soft. No tenderness. LABS: COVID-19 PCR was negative. White count of 13.4. Creatinine 0.48. DIAGNOSTIC IMPRESSION AND PLAN: Patient admitted to hospital with difficulty in breathing and a cough in this patient with a likely component of community-acquired pneumonia. Patient clinically responded to Rocephin and Zithromax; to continue. With negative COVID-19, hydroxychloroquine discontinued. Try to obtain a sputum sample to narrow down antibiotics and continue with supportive care. MMODL / IJN: [id number] /
[2019-08-11 07:07] LABS: Glucose,Whole Blood 122 mg/dL (75-99)
[2019-08-11] MEDS: INSULIN ASPART (NovoLOG) 100 UNIT/ML VIAL SQ SCH ×2 (07:07→12:23)
[2019-08-11] MEDS: TIOTROPIUM 18 MCG/PUFF INHALER INHALATION PRN (07:09)
[2019-08-11] MEDS: SYMBICORT 160-4.5 MCG INHALER INHALATION SCH (07:09)
[2019-08-11] MEDS: ALBUTEROL HFA INHALER INHALATION PRN ×3 (07:09→15:38)
[2019-08-11] MEDS: methylPREDNISolone SOD SUCCI 125 MG/2 ML VIAL IV SCH (07:28)
[2019-08-11] MEDS: PANTOPRAZOLE 40 MG TABLET PO SCH (07:28)
[2019-08-11] MEDS: VERAPAMIL 40 MG TAB PO SCH (08:02)
[2019-08-11] MEDS: HYDROCHLOROTHIAZIDE 25 MG TAB PO SCH (08:02)
[2019-08-11] MEDS: PARoxetine 20 MG TAB PO SCH (08:02)
[2019-08-11] MEDS: BUTALB/APAP/CAFF 50-325-40MG TAB PO PRN ×2 (08:02→15:58)
[2019-08-11] MEDS: NICOTINE 21MG/24HR PATCH TRANSDERM SCH (08:02)
[2019-08-11] MEDS: MONTELUKAST 10 MG TAB PO SCH (08:02)
[2019-08-11] MEDS: METHOCARBAMOL 750 MG TAB PO SCH ×2 (08:03→15:58)
[2019-08-11] MEDS: busPIRone HCl 10 MG TAB PO SCH ×2 (08:03→15:58)
[2019-08-11] MEDS: AZITHROMYCIN 500 MG TAB PO SCH (08:03)
[2019-08-11] MEDS: oxyCODONE-APAP 10-325MG 1 EACH TAB PO PRN ×2 (08:03→15:58)
[2019-08-11] MEDS: MULTIVITAMINS, THERA 1 EACH TAB PO SCH (08:03)
[2019-08-11] MEDS: FOLIC ACID 1 MG TAB PO SCH (08:03)
[2019-08-11] MEDS: ASPIRIN 81 MG PO SCH (08:03)
[2019-08-11] MEDS: MEMANTINE 10 MG TAB PO SCH (08:03)
[2019-08-11] MEDS: LORazepam 1 MG TAB PO PRN ×2 (08:03→15:58)
[2019-08-11] MEDS: ENOXAPARIN 40 MG/0.4 ML SYRINGE SQ SCH (08:04)
--- NOTE | 2019-08-11 08:13 | XR ---
EXAMINATION TYPE: XR chest 1V portable DATE OF EXAM: 08/11/2019 COMPARISON: 08/09/2019 INDICATION: Covid 19 TECHNIQUE: Single frontal view of the chest is obtained. FINDINGS: The heart size is mildly prominent. The pulmonary vasculature is normal. Mild diffuse increased lung markings are present. Findings appear similar to prior study. No progress ion is evident. IMPRESSION: 1. Mild residual increased lung markings diffusely.
[2019-08-11 08:22] VITALS: BP 119/80; PULSE 80; RESP 15; TEMP 98.5
[2019-08-11] MEDS: GABAPENTIN 600MG PO SCH ×2 (08:23→15:58)
[2019-08-11] MEDS ORDERED: CHOLECALCIFEROL 1,000 UNIT TAB PO SCH (09:15)
[2019-08-11] MEDS ORDERED: LIDOCAINE 2% GEL 30 ML TUBE TOPICAL SCH (09:15)
[2019-08-11 09:24] LABS: Basophils % (A) 0 %; Eosinophils % (A) 0 %; HGB 13.5 gm/dL (11.4-16.0); Lymphocytes # (A) 1.5 k/uL (1.0-4.8); Lymphocytes % (A) 9 %; MCH 31.1 pg (25.0-35.0); MCHC 30.6 g/dL (31.0-37.0); MCV 101.7 fL (80.0-100.0); Macrocytosis Slight; Mean Platelet Volume 8.5; Monocytes # (A) 0.5 k/uL (0-1.0); Monocytes % (A) 3 %; Neutrophils # (A) 14.3 k/uL (1.3-7.7); Neutrophils % (A) 87 %; Platelet Count 261 k/uL (150-450); RBC 4.32 m/uL (3.80-5.40); RDW 13.4 % (11.5-15.5); WBC 16.4 k/uL (3.8-10.6)
[2019-08-11] MEDS: NYSTATIN 100,000 UNIT/ML SUSP 500,000 UNIT/5 ML CUP PO SCH ×2 (10:11→12:23)
[2019-08-11 11:21] LABS: Glucose,Whole Blood 167 mg/dL (75-99)
--- NOTE | 2019-08-11 11:30 | P.DS ---
Providers Date of admission: 08/09/19 13:26 Expected date of discharge: 08/11/19 Attending physician: Deneen Thomason Consults: 08/09/19 13:27 Consult Physician Urgent Consulting Provider: Dhruv Mello Consult Reason/Comments: MS exacerbation Do you want consulting provider notified?: Yes Consult Physician Urgent Consulting Provider: Tavares Cuevas Consult Reason/Comments: CAP vs viral PNA Do you want consulting provider notified?: Yes 08/09/19 13:31 Consult Physician Urgent Consulting Provider: Juni Javier Consult Reason/Comments: acute hypoxia, CAP vs viral PNA Do you want consulting provider notified?: Yes Primary care physician: Kilo Tabares [place] [facility] Course: This is a 53-year-old female patient of Dr. Tabares and Dr. Ramirez with a previous medical history significant for relapsing remitting multiple sclerosis, hypertension and hypertensive cardiovascular disease with left ventricular hypertrophy, history of GERD, multiple sclerosis, COPD, asthma, history of osteoporosis, uterine cancer status post surgery, chronic hypoxic respiratory failure on home O2 at 2 L nasal cannula. Patient was most recently hospitalized in April 2019 at which time she presented with acute exacerbation of MS. Patient was seen in the emergency center on August 07 with complaints of fever, productive cough and shortness of breath for 4 days. She had a temperature that time of 100.4 and leukocytosis of 13.8. Chest x-ray was limited to body habitus. CAT scan of the chest revealed small areas of groundglass infiltrate in the right lower lobe. Developing infiltrate is not excluded. Overall appearance is improved from prior exam. Influenza testing was negative and COVID-19 testing was sent. Patient was discharged home to continue Augmentin and was given prednisone 50 mg daily 5 and recommendations to self quarantine. However, patient developed increasing shortness of breath and cough along with increasing weakness all over concerning for MS flareup. Patient had a fall in the bathroom landing on her tailbone, complains of headache and uncontrolled movement of her arms and legs and twitching, burning and tingling in her feet and legs. She also complains of fever and chills. She states she has had fevers on and off for 3 weeks along with cough. Patient continues to smoke and down to half pack per day. Patient complains of having diarrhea last week. She denies any dysuria. Patient returned to [facility] emergency center for second evaluation. W BC 13.5, hemoglobin 13.2, platelet count 274. D-dimer 0.3. Sodium 136, potassium 3.9, chloride 94, CO2 38, BUN 7 creatinine 0.52. Blood sugar 104. Liver function tests normal. LDH 751, ferritin 96.4. Pro- calcitonin 0.13, C-reactive protein 48.9. Chest x-ray is limited. Hazy densities in the mid and lower lungs. No roldan progressive consolidation as compared to CAT scan on 46. EKG normal sinus rhythm. [facility] and consult requested with pulmonary medicine, infectious disease and neurology. 08/10: Covid 19 testing not detected. Hydroxychloroquine discontinued. Patient is continued on Rocephin and azithromycin as well as IV Solu-Medrol at 60 mg every 6 hours and was transitioned to oral prednisone today and inhalers are continued. Repeat chest x-ray reveals mild residual increased lung markings diffusely. Blood culture no growth at 24 hours. Sputum culture has been finalized with contamination from oral narendra. Patient is afebrile, heart rate 80, blood pressure 119/80, pulse ox 95% on 3 L nasal cannula. Urinalysis was negative for infection. Blood sugars running between 122 and 205. This morning, patient is complaining of thrush and we will start patient on nystatin. Patient has been seen by Dr. Roberts this morning and cleared for discharge home. Patient is requesting to stay another day but due to her current environment with Covid 19 patients in the hospital, patient would be best served to be discharged home. Patient is on all oral medications and can be managed at home. Patient will be discharged today in stable condition. Discharge diagnoses: 1. Pneumonia, possible gram-negative pneumonia. COVID-19 infection ruled out. 2. Generalized weakness possibly related to acute febrile illness, cannot rule out superimposed MS exacerbation. 3. History of relapsing remitting multiple sclerosis. 4. Chronic pain and occipital neuralgia under the care of Dr. Ramirez. 5. Hypertension and hypertensive cardiovascular disease. 6. Obesity with possible obstructive sleep apnea and obesity hypoventilation syndrome. 7. Mild intermittent asthma and COPD. 8. Fibromyalgia. 8. Generalized anxiety disorder. 9. Recurrent depression. 10. Chronic tobacco use and dependence. 11. Mild cognitive impairment. 13. Restless leg syndrome. Discharge plan: Home with [facility] Impression and plan of care have been directed as dictated by the signing ph ysician. Elaine Nguyen nurse practitioner acting as scribe for signing physician. Patient Condition at Discharge: Good Plan - Discharge Summary Discharge Rx Participant: No New Discharge Prescriptions: New Nystatin 100,000 Unit/ml Susp [Mycostatin Oral Susp] 500,000 unit PO QID #120 ml predniSONE 0 mg PO DIRECTED #30 tab Doxycycline [Vibramycin] 100 mg PO BID 7 Days #14 capsule Continue LORazepam [Ativan] 1 mg PO Q8H PRN PRN Reason: Anxiety Aspirin 81 mg PO DAILY Verapamil HCl [Calan] 120 mg PO DAILY Gabapentin [Neurontin] 1,200 mg PO TID Butalb/APAP/Caff 50-325-40Mg [Fioricet 50-325-40] 1 tab PO Q8H PRN PRN Reason: Migraine Headache oxyCODONE-APAP 10-325MG [Percocet 10-325 mg] 1 tab PO TID PRN PRN Reason: pain rOPINIRole HCL [Requip] 0.25 mg PO TID #90 tab Budesonide/Formoterol Fumarate [Symbicort 160-4.5 Mcg Inhaler] 2 puff INHALATION RT-BID Multivitamins, Thera [Multivitamin (formulary)] 1 tab PO DAILY Cholecalciferol [Vitamin D3 (25 Mcg = 1000 Iu)] 2,000 unit PO DAILY PARoxetine [Paxil] 40 mg PO DAILY tab Pantoprazole Sodium [Protonix] 40 mg PO BID Ipratropium-Albuterol Nebulize [Duoneb 0.5 mg-3 mg/3 ml Soln] 3 ml INHALATION RT-QID PRN PRN Reason: Shortness Of Breath Memantine [Namenda] 10 mg PO BID Montelukast [Singulair] 10 mg PO DAILY Nicotine 21Mg/24Hr Patch [Habitrol] 1 patch TRANSDERM DAILY #30 patch Hydrochlorothiazide [Hydrodiuril] 25 mg PO DAILY tab Fluticasone Nasal [place] [Flonase Nasal [place]] 2 spray EA NOSTRIL DAILY PRN PRN Reason: Congestion Methocarbamol [Robaxin-750] 750 mg PO BID busPIRone HCl [Buspar] 10 mg PO TID #90 tab Folic Acid 1 mg PO DAILY #30 tab Promethaz-Cod 6.25-10 mg/5 ml [Phenergan with Codeine] 5 ml PO Q6H PRN PRN Reason: Cough Albuterol Sulfate [Ventolin HFA] 1 - 2 puff INHALATION Q6H PRN PRN Reason: Shortness Of Breath Discontinued Amoxicillin/Potassium Clav [Augmentin 875-125 Tablet] 1 tab PO BID predniSONE 50 mg PO DAILY #5 tablet Discharge Medication List Aspirin 81 mg PO DAILY 02/20/14 [History] LORazepam [Ativan] 1 mg PO Q8H PRN 02/20/14 [History] Verapamil HCl [Calan] 120 mg PO DAILY 02/20/14 [History] Gabapentin [Neurontin] 1,200 mg PO TID 08/19/16 [History] Butalb/APAP/Caff 50-325-40Mg [Fioricet 50-325-40] 1 tab PO Q8H PRN 03/25/17 [History] oxyCODONE-APAP 10-325MG [Percocet 10-325 mg] 1 tab PO TID PRN 01/28/18 [History] rOPINIRole HCL [Requip] 0.25 mg PO TID #90 tab 01/31/18 [Rx] Budesonide/Formoterol Fumarate [Symbicort 160-4.5 Mcg Inhaler] 2 puff INHALATION RT-BID 05/06/18 [History] Cholecalciferol [Vitamin D3 (25 Mcg = 1000 Iu)] 2,000 unit PO DAILY 05/07/18 [History] Multivitamins, Thera [Multivitamin (formulary)] 1 tab PO DAILY 05/07/18 [History] PARoxetine [Paxil] 40 mg PO DAILY tab 05/09/18 [Rx] Pantoprazole Sodium [Protonix] 40 mg PO BID 10/31/18 [History] Ipratropium-Albuterol Nebulize [Duoneb 0.5 mg-3 mg/3 ml Soln] 3 ml INHALATION RT-QID PRN 11/22/18 [History] Memantine [Namenda] 10 mg PO BID 11/22/18 [History] Montelukast [Singulair] 10 mg PO DAILY 11/22/18 [History] Hydrochlorothiazide [Hydrodiuril] 25 mg PO DAILY tab 11/26/18 [Rx] Nicotine 21Mg/24Hr Patch [Habitrol] 1 patch TRANSDERM DAILY #30 patch 11/26/18 [Rx] Fluticasone Nasal [place] [Flonase Nasal [place]] 2 spray EA NOSTRIL DAILY PRN 04/28/19 [History] Methocarbamol [Robaxin-750] 750 mg PO BID 04/28/19 [History] Folic Acid 1 mg PO DAILY #30 tab 05/02/19 [Rx] busPIRone HCl [Buspar] 10 mg PO TID #90 tab 05/02/19 [Rx] Promethaz-Cod 6.25-10 mg/5 ml [Phenergan with Codeine] 5 ml PO Q6H PRN 07/29/19 [History] Albuterol Sulfate [Ventolin HFA] 1 - 2 puff INHALATION Q6H PRN 08/09/19 [History] Doxycycline [Vibramycin] 100 mg PO BID 7 Days #14 capsule 08/11/19 [Rx] Nystatin 100,000 Unit/ml Susp [Mycostatin Oral Susp] 500,000 unit PO QID #120 ml 08/11/19 [Rx] predniSONE 0 mg PO DIRECTED #30 tab 08/11/19 [Rx] Follow up Appointment(s)/Referral(s): Panfilo Roberts MD [STAFF PHYSICIAN] - 09/09/19 9:15 am [facility], [NON-STAFF] - 1 Week Carolynn Ramirez MD [Medical Doctor] - 1 Week (office clsed please call after August 31 to schedule appointment) Kilo Tabares MD [Primary Care Provider] - 3 Days (Please call office to set up appointment via telephone or Video) Activity/Diet/Wound Care/Special Instructions: patients own med gabapentin in outpatient pharmacy. Discharge Disposition: HOME SELF-CARE
--- NOTE | 2019-08-11 13:00 | CDI ---
Documentation Clarification Form Date: 08/11/2019 12:21:16 PM From: Ronda Hong Admit Date: 08/09/2019 01:26:00 PM Patient Name: Hudson Morales Visit Number: [id number] Discharge Date: ATTENTION: The Clinical Documentation Specialists (CDI) and [facility] Coding Staff appreciate your assistance in clarifying documentation. Please respond to the clarification below the line at the bottom and electronically sign. The CDI & [facility] Coding staff will review the response and follow-up if needed. Please note: Queries are made part of the Legal Health Record. If you have any questions, please contact the author of this message via ITS. Dr. Deneen Thomsaon Coding guidelines do not allow coding professionals to code based on laboratory results; therefore, your input is requested. The COVID-19 test obtained on 08/08 was reported as Negative on 08/08 Pneumonia suspected COVID 19 Pneumonitis and Covid 19 testing not detected. is documented in the discharge summary Patient history/risk factors: 53-year-old female with a history of MS, COPD on 2l home oxygen. Diagnosed with pneumonia in ED on 08/07. Clinical Indicators Patient reported worsening cough and shortness of breath she is diagnosed with pneumonia. CXR 08/08 Hazy densities in the mid and lower lungs. No roldan progressive consolidation as compared to CT of 08/07 VS in ED Triage 08/08: 125/87 98 100.2 F 24 85% room air Labs 08/08 Wbc 13.5, Lactate Dehydrogenase 751, Procalcitonin 0.13, Neutrophils 9.2, Lymphocytes 3.0 Treatment: 08/08 Azithromycin Ivpb x1, 08/08 Rocephin Ivpb Daily, 08/09 Azithromycin Po Bid, Plaquenil Po Bid d/c 08/09 Pulmonary Progress note 08/09 Febrile illness present on admission, improved, COVID 19 has been ruled out. In order to capture the severity of condition, please clarify the COVID-19 status: COVID-19 ruled out False negative, treating for COVID-19 based on these clinical indicators: Other, please specify Unable to determine (Last Form Revision: July 2019) MTDD
--- NOTE | 2019-08-11 13:04 | P.PN ---
Subjective Progress Note Date: 08/11/19 Principal diagnosis: Fever, cough, shortness of breath This is a 53-year-old -[place] female, known to have history of multiple medical problems including MS, COPD, fibromyalgia, hypertension, degenerative joint disease, chronic occipital neuralgia, optic neuritis, chronic hypoxic respiratory failure maintained normally on 2 L of oxygen history of chronic bronchitis, uterine cancer and previous hysterectomy, patient presented to the emergency room with 1 week history of multiple pulmonary symptoms including cough, productive with whitish phlegm, shortness of breath, and fever. Patient notified her primary care physician, and he recommended Augmentin over the phone. She took Augmentin for the last few days, however she continues to have fever cough and shortness of breath. Patient normally sees an urologist/Dr. Ramirez for her MS. At any rate considering her pulmonary symptoms, patient was seen in the ER, chest x-ray showed hazy densities in the mid and lower lungs bilaterally. No evidence of consolidation, however possibility of covid 19 pneumonitis was raised, and patient had basically classical symptoms including the cough, shortness of breath, the fever, and generalized body aches and pains. Patient was admitted, placed on treatment, and I was asked to see her on consultation. Presently the patient is afebrile, she is a temp of 98.2 she is in no distress, she is on nasal cannula at 2.5 L/m, and O2 saturation is 96%. On 08/10/2019 patient seen in follow-up on general medical floor, her code with 19 testing is still pending, overall she states she is feeling better, still wheezy, bronchospastic, she is on 3 L of oxygen with a pulse of 97%, afebrile overnight, afebrile this morning, today's labs have been reviewed, showing white blood cell, fairly stable at 13.4, hemoglobin is 13.2, electrolytes are within normal limits with exception of CO2 which is at 36, BUN is 9, creatinine is 0.48, d-dimer was within normal limits at 0.30, ferritin was normal at 96.4, calcitonin was intermediate at 0.13, LDH was 751, coronary virus was not detected. On 08/11/2019 patient seen in follow-up on general medical floor. Patient's Covid 19 testing was negative. She is improving, breathing easier, lung sounds are clear on today's physical exam, she is on 3 L of oxygen her pulse ox of 95- 96%, she has been afebrile. Patient has been treated with IV steroids, antibiotics, Symbicort, Ventolin, clinically improving, from pulmonary perspect pastor she can be considered for discharge home today Objective - Vital Signs Vital signs: Vital Signs Temp 98.5 F 08/11/19 07:00 Pulse 80 08/11/19 07:00 Resp 15 08/11/19 07:00 BP 119/80 08/11/19 07:00 Pulse Ox 95 08/11/19 07:00 Intake & Output 08/10/19 08/11/19 08/11/19 18:59 06:59 18:59 Intake Total 518 100 Balance 518 100 Intake: Oral 518 100 Other: Voiding Method Toilet Toilet # Voids 2 1 - Exam GENERAL EXAM: Alert, very pleasant, obese -[place]ian female, 3 L of oxygen with a pulse ox of 95% comfortable in no apparent distress. HEAD: Normocephalic/atraumatic. EYES: Normal reaction of pupils, equal size. Conjunctiva pink, sclera white. NOSE: Clear with pink turbinates. THROAT: No erythema or exudates. NECK: No masses, no JVD, no thyroid enlargement, no adenopathy. CHEST: No chest wall deformity. Symmetrical expansion. LUNGS: Clear breath sounds bilaterally, no wheezing, no rhonchi CVS: Regular rate and rhythm, normal S1 and S2, no gallops, no murmurs, no rubs ABDOMEN: Soft, nontender. No hepatosplenomegaly, normal bowel sounds, no guarding or rigidity. EXTREMITIES: No clubbing, no edema, no cyanosis, 2+ pulses and upper and lower extremities. MUSCULOSKELETAL: Muscle strength and tone normal. SPINE: No scoliosis or deformity SKIN: No rashes CENTRAL NERVOUS SYSTEM: Alert and oriented -3. No focal deficits, tone is normal in all 4 extremities. PSYCHIATRIC: Alert and oriented -3. Appropriate affect. Intact judgment and insight. - Labs CBC & Chem 7: 08/11/19 09:00 08/10/19 08:00 Labs: Abnormal Lab Results - Last 24 Hours (Table) 08/10/19 08/10/19 08/10/19 Range/Units 12:55 16:41 21:31 WBC (3.8-10.6) k/uL MCV (80.0-100.0) fL MCHC (31.0-37.0) g/dL Neutrophils # (1.3-7.7) k/uL POC Glucose (mg/dL) 184 H 197 H (75-99) mg/dL Urine Protein Trace H (Negative) Urine Glucose (UA) 2+ H (Negative) 08/11/19 08/11/19 08/11/19 Range/Units 07:06 09:00 11:20 WBC 16.4 H (3.8-10.6) k/uL MCV 101.7 H (80.0-100.0) fL MCHC 30.6 L (31.0-37.0) g/dL Neutrophils # 14.3 H (1.3-7.7) k/uL POC Glucose (mg/dL) 122 H 167 H (75-99) mg/dL Urine Protein (Negative) Urine Glucose (UA) (Negative) Microbiology - Last 24 Hours (Table) 08/11/19 07:21 Sputum Culture - Preliminary Sputum 08/09/19 11:30 Blood Culture - Preliminary Blood No Growth after 24 hours Assessment and Plan Plan: Assessment: #1. Febrile illness, present on admission, improved, Covid 19 has been ruled out #2. Hazy densities in the mid and lower lungs bilaterally, possibly related to community-acquired pneumonia #3. Acute exacerbation of COPD #4. History of fibromyalgia #5. History of multiple sclerosis #6. History of optic neuritis #7. History of osteoporosis #8. History of chronic hypoxic respiratory failure related to COPD Plan: today's chest x-ray has been reviewed showing mild residual increased lung markings, Covid 19 infection has been ruled out, clinically patient is improving, she is tolerating ambulation within the room, blood and sputum cultures have shown no growth thus far, patient has been afebrile. From pulmonary perspective patient can be considered for discharge home today I performed a history & physical examination of the patient and discussed their management with my nurse practitioner, Gay Hernandez. I reviewed the nurse practitioner's note and agree with the documented findings and plan of care. Lung sounds are positive for diffuse wheezes. The findings and the impression was discussed with the patient. I attest to the documentation by the nurse practitioner. Time with Patient: Less than 30
--- NOTE | 2019-08-11 20:17 | P.PN ---
Subjective Progress Note Date: 08/11/19 Patient is alert and awake, fully oriented. Fully dressed. Being discharged. Denies any new focal symptoms. States feeling better. Patient is getting Ocrevus, and her next dose due is in 09/03/2019 Objective - Vital Signs Vital signs: Vital Signs Temp 98.5 F 08/11/19 07:00 Pulse 80 08/11/19 07:00 Resp 15 08/11/19 07:00 BP 119/80 08/11/19 07:00 Pulse Ox 95 08/11/19 07:00 Intake & Output 08/11/19 08/11/19 08/12/19 06:59 18:59 06:59 Intake Total 100 800 Balance 100 800 Intake: Oral 100 800 Other: Voiding Method Toilet Toilet # Voids 1 - Exam Patient is alert and awake fully oriented. Her speech and language functions are normal. Attention and concentration [facility] quit. Cranial nerves are normal. Muscle strength is normal in the arms. In the lower limbs, her hip flexion is 4 on the right, 4-on the left. Ankles are about 4+ to 5-with giveaway weakness due to pain. No ataxia. Gait deferred. - Labs CBC & Chem 7: 08/11/19 09:00 08/10/19 08:00 Labs: Abnormal Lab Results - Last 24 Hours (Table) 08/10/19 08/11/19 08/11/19 Range/Units 21:31 07:06 09:00 WBC 16.4 H (3.8-10.6) k/uL MCV 101.7 H (80.0-100.0) fL MCHC 30.6 L (31.0-37.0) g/dL Neutrophils # 14.3 H (1.3-7.7) k/uL POC Glucose (mg/dL) 197 H 122 H (75-99) mg/dL 08/11/19 Range/Units 11:20 WBC (3.8-10.6) k/uL MCV (80.0-100.0) fL MCHC (31.0-37.0) g/dL Neutrophils # (1.3-7.7) k/uL POC Glucose (mg/dL) 167 H (75-99) mg/dL Microbiology - Last 24 Hours (Table) 04/07/20 11:30 Blood Culture - Preliminary Blood No Growth after 48 hours 08/11/19 07:21 Gram Stain - Final Sputum Sputum Culture - Final Assessment and Plan Assessment: * 53-year-old female with relapsing remitting MS, admitted with cough, fever, shortness of breath and generalized weakness. Patient has abnormal chest x- ray. COVID-19 testing negative. Her generalized weakness is likely related to acute febrile illness which can unmask old MS lesions. Doubt MS exacerbation. * Obesity * History of folate, B6 and vitamin D deficiency. Plan: * At present patient's acute issue is pneumonia, COVID testing came back negative. * Her generalized weakness is likely related to diffuse weakness related to acute febrile illness. No evidence of MS exacerbation at this time. * I would optimize treatment for pneumonia at this time. * Patient being discharged. Patient recommended to follow up with her neurologist as outpatient. Patient's next does do of Ocroliviaus is in September 2019.
--- NOTE | 2019-08-11 21:47 | PN ---
PROGRESS NOTE DATE OF SERVICE: 08/11/2019 REASON FOR FOLLOWUP: Tracheobronchitis and a question of pneumonia. INTERVAL HISTORY: The patient was seen on rounds this morning. The patient was afebrile. She has been breathing comfortably. Still has occasional wheeze. No chest pain. No nausea, no vomiting. No abdominal pain. No diarrhea. PHYSICAL EXAMINATION: Blood pressure 119/80 with a pulse of 80, temperature 98.5. She is 95% on 3 L nasal cannula. General description is a middle-aged female up in the bed in no distress. RESPIRATORY SYSTEM: Unlabored breathing with decreased intensity of breath sounds. No wheeze. HEART: S1, S2. Regular rate and rhythm. ABDOMEN: Soft. No tenderness. LABS: Hemoglobin is 13.5, white count 16.4. Sputum has been negative. Blood culture negative. DIAGNOSTIC IMPRESSION AND PLAN: Patient admitted to hospital with shortness of breath and cough in this patient with possible pneumonia, possibly community-acquired. She has been ruled out for COVID-19. Recommend to finish therapy with a course of oral Ceftin. Continue with supportive care. MMODL / IJN: [id number] /
[2019-08-12] MEDS ORDERED: predniSONE 20 MG TAB PO SCH (09:00)
== END 2019-08-11 18:23 | disposition home health service (06) | DRG 178 ==
LOC: EC 10:49 → 4SSUR 13:26
PROVIDERS: ADMIT Family Medicine; ATTEND Family Medicine
DX: J15.6 Pneumonia due to other Gram-negative bacteria (principal); J96.11 Chronic respiratory failure with hypoxia; J44.1 Chronic obstructive pulmonary disease with (acute) exacerbation; J44.0 Chronic obstructive pulmonary disease with (acute) lower respiratory infection; Z68.41 Body mass index [BMI] 40.0-44.9, adult; E66.2 Morbid (severe) obesity with alveolar hypoventilation; F33.9 Major depressive disorder, recurrent, unspecified; J45.909 Unspecified asthma, uncomplicated; K21.9 Gastro-esophageal reflux disease without esophagitis; M19.90 Unspecified osteoarthritis, unspecified site; Z20.828 Contact with and (suspected) exposure to other viral communicable diseases; I11.9 Hypertensive heart disease without heart failure; H91.90 Unspecified hearing loss, unspecified ear; M54.81 Occipital neuralgia; F41.1 Generalized anxiety disorder; M79.7 Fibromyalgia; G89.29 Other chronic pain; J45.20 Mild intermittent asthma, uncomplicated; M81.0 Age-related osteoporosis without current pathological fracture; E53.1 Pyridoxine deficiency; E55.9 Vitamin D deficiency, unspecified; B37.9 Candidiasis, unspecified; M17.0 Bilateral primary osteoarthritis of knee; M19.011 Primary osteoarthritis, right shoulder; M19.012 Primary osteoarthritis, left shoulder; G25.81 Restless legs syndrome; G31.84 Mild cognitive impairment of uncertain or unknown etiology; G35 Multiple sclerosis; F17.210 Nicotine dependence, cigarettes, uncomplicated; H54.7 Unspecified visual loss; R29.6 Repeated falls; Z87.01 Personal history of pneumonia (recurrent); Z99.81 Dependence on supplemental oxygen; Z79.899 Other long term (current) drug therapy; Z79.51 Long term (current) use of inhaled steroids; Z79.82 Long term (current) use of aspirin; Z88.6 Allergy status to analgesic agent; Z88.8 Allergy status to other drugs, medicaments and biological substances; Z90.710 Acquired absence of both cervix and uterus; Z85.42 Personal history of malignant neoplasm of other parts of uterus; Z98.890 Other specified postprocedural states; Z82.49 Family history of ischemic heart disease and other diseases of the circulatory system; Z82.41 Family history of sudden cardiac death; Z82.3 Family history of stroke; Z86.19 Personal history of other infectious and parasitic diseases
CPT/HCPCS: 36415; 71045; 71260; 80048; 80053; 81003; 82728; 83605; 83615; 83735; 83880; 84145; 84484; 85025; 85027; 85379; 85610; 85730; 86140; 87040; 87070; 87205; 87502; 87635; 93005; 94640; 96361; 96365; 96374; 96375; 99285

== ENCOUNTER 2019-09-04 07:29 | Inpatient (IN) | payer MEDICARE, OTHER ==
[2019-09-04] MEDS ORDERED: ACETAMINOPHEN TAB 500 MG TAB PO STA (07:36)
[2019-09-04 08:45] LABS: Basophils # (A) 0.1 k/uL (0-0.2); Basophils % (A) 0 %; Eosinophils # (A) 0.2 k/uL (0-0.7); Eosinophils % (A) 1 %; HCT 44.4 % (34.0-46.0); HGB 13.9 gm/dL (11.4-16.0); Hypochromasia Slight; Lymphocytes # (A) 2.7 k/uL (1.0-4.8); Lymphocytes % (A) 20 %; MCH 31.9 pg (25.0-35.0); MCHC 31.3 g/dL (31.0-37.0); MCV 102.1 fL (80.0-100.0); Macrocytosis Slight; Mean Platelet Volume 8.8; Monocytes # (A) 0.6 k/uL (0-1.0); Monocytes % (A) 4 %; Neutrophils # (A) 9.6 k/uL (1.3-7.7); Neutrophils % (A) 72 %; Platelet Count 261 k/uL (150-450); RBC 4.35 m/uL (3.80-5.40); RDW 12.8 % (11.5-15.5); WBC 13.3 k/uL (3.8-10.6)
[2019-09-04 08:46] LABS: ALT 19 U/L (4-34); AST 20 U/L (14-36); African American GFR (CKD) >90 (>60 ml/min/1.73 sqM); Albumin 3.9 g/dL (3.5-5.0); Alkaline Phosphatase 87 U/L (38-126); Anion Gap 5 mmol/L; Blood Urea Nitrogen 6 mg/dL (7-17); Calcium 9.1 mg/dL (8.4-10.2); Carbon Dioxide 39 mmol/L (22-30); Chloride 92 mmol/L (98-107); Glucose 133 mg/dL (74-99); Magnesium 1.5 mg/dL (1.6-2.3); Non-African American GFR(CKD) >90 (>60 ml/min/1.73 sqM); Potassium 3.8 mmol/L (3.5-5.1); Sodium 136 mmol/L (137-145); Total Bilirubin 0.2 mg/dL (0.2-1.3)
[2019-09-04 08:50] LABS: Partial Thromboplastin Time 22.9 sec (22.0-30.0); Prothrombin Time 10.2 sec (9.0-12.0)
[2019-09-04] MEDS ORDERED: cefTRIAXone IN SWFI 1,000 MG/10 ML SYRINGE IVP STA (08:51)
--- NOTE | 2019-09-04 09:12 | XR ---
EXAMINATION TYPE: XR chest 1V portable DATE OF EXAM: 09/04/2019 HISTORY: Suspected COVID-19 pneumonia. REFERENCE: Previous study dated 08/11/2019. FINDINGS: The study is limited by the patient's tremendous size. The heart is enlarged. Lungs appear clear. Pleural space are clear. IMPRESSION: CARDIOMEGALY.
--- NOTE | 2019-09-04 09:15 | ED ---
General Adult HPI - General Chief complaint: Fever Stated complaint: Fall Time Seen by Provider: 09/04/19 07:31 Source: EMS Mode of arrival: EMS Limitations: no limitations - History of Present Illness Initial comments: Dictation was produced using [employer] dictation software. please excuse any grammatical, word or spelling errors. This patient was cared for during a federal and state declared state of emergency secondary to Covid 19 Chief Complaint: 53-year-old female past medical history of multiple sclerosis presents today with 1 day of fever, shortness of breath. History of Present Illness: 53-year-old female she is well-known to emergency department. Patient wears oxygen at home 2 L chronically. She is here today for cough, fever and shortness of breath. She does also complain of runny nose. Patient for she's been in her usual state of health until about 24 hours ago. She states that she's been having a productive cough of yellow sputum. States she's been short of breath. She does have history of COPD. Rest of his nasal cannula chronically. She called EMS transport to the emergency department. Upon EMS arrival shows findings afebrile. Denies any overt exposures to anyone with coronavirus. Denies any URI symptoms. No nausea vomiting. No abdominal pain. The ROS documented in this emergency department record has been reviewed and confirmed by me. Those systems with pertinent positive or negative responses have been documented in the HPI. All other systems are other negative and/or noncontributory. PHYSICAL EXAM: General Impression: Alert and oriented x3, not in acute distress HEENT: Normocephalic atraumatic, extra-ocular movements intact, pupils equal and reactive to light bilaterally, mucous membranes moist. Cardiovascular: Heart regular rate and rhythm Chest: Able to complete full sentences, no retractions, no tachypnea Abdomen: abdomen soft, non-tender, non-distended, no organomegaly Musculoskeletal: Pulses present and equal in all extremities, no peripheral edema Motor: no focal deficits noted Neurological: CN II-XII grossly intact, no focal motor or sensory deficits noted Skin: Intact with no visualized rashes Psych: Normal affect and mood ED course: 53-year-old female presents with fever, shortness of breath and cough. Vital signs upon arrival shows temperature 101.3, heart rate of 108 she is 90% on 2 L nasal cannula. Laboratory evaluation obtained. Patient has mild leukocytosis of 13.3. Is unclear whether this is from an infection or from chronic steroid use. She does have macrocytosis. Coag panel unremarkable. Metabolic panel shows magnesium 1.5. Rest of metabolic panels acceptable limits. She does have an elevated C- reactive protein of 42. Pending for calcitonin. Rotavirus test is negative. Chest x-ray shows cardiomegaly. It is unclear what is causing patient's fever at this time. Patient will be admitted for SIRS, rule out sepsis. Patient given ceftriaxone. She'll be admitted to Dr. Thomason who is willing to accept patient's care after discussion. She requests that infectious disease be consulted. Patient will be maintained on droplet precautions were presumed false-negative rapid blake coronavirus test EKG interpretation: Ventricular rate 107, sinus tachycardia, DC interval 154, QRS 72, QTC 475. No DC prolongation, no QTC prolongation, no ST or T-wave changes noted. EKG compared to 08/09/2019 showing no changes. Overall, this EKG is unremarkable - Related Data Home Medications Medication Instructions Recorded Confirmed Aspirin 81 mg PO DAILY 02/20/14 08/09/19 LORazepam [Ativan] 1 mg PO Q8H PRN 02/20/14 08/09/19 Verapamil HCl [Calan] 120 mg PO DAILY 02/20/14 08/09/19 Gabapentin [Neurontin] 1,200 mg PO TID 08/19/16 08/09/19 Butalb/APAP/Caff 50-325-40Mg 1 tab PO Q8H PRN 03/25/17 08/09/19 [Fioricet 50-325-40] oxyCODONE-APAP 10-325MG [Percocet 1 tab PO TID PRN 01/28/18 08/09/19 10-325 mg] Budesonide/Formoterol Fumarate 2 puff INHALATION RT-BID 05/06/18 08/09/19 [Symbicort 160-4.5 Mcg Inhaler] Cholecalciferol [Vitamin D3 (25 2,000 unit PO DAILY 05/07/18 08/09/19 Mcg = 1000 Iu)] Multivitamins, Thera [Multivitamin 1 tab PO DAILY 05/07/18 08/09/19 (formulary)] Pantoprazole Sodium [Protonix] 40 mg PO BID 10/31/18 08/09/19 Ipratropium-Albuterol Nebulize 3 ml INHALATION RT-QID PRN 11/22/18 08/09/19 [Duoneb 0.5 mg-3 mg/3 ml Soln] Memantine [Namenda] 10 mg PO BID 11/22/18 08/09/19 Montelukast [Singulair] 10 mg PO DAILY 11/22/18 08/09/19 Fluticasone Nasal [place] [Flonase 2 spray EA NOSTRIL DAILY PRN 04/28/19 08/09/19 Nasal [place]] Methocarbamol [Robaxin-750] 750 mg PO BID 04/28/19 08/09/19 Promethaz-Cod 6.25-10 mg/5 ml 5 ml PO Q6H PRN 07/29/19 08/09/19 [Phenergan with Codeine] Albuterol Sulfate [Ventolin HFA] 1 - 2 puff INHALATION Q6H PRN 08/09/19 08/09/19 Previous Rx's Medication Instructions Recorded rOPINIRole HCL [Requip] 0.25 mg PO TID #90 tab 01/31/18 PARoxetine [Paxil] 40 mg PO DAILY tab 05/09/18 Hydrochlorothiazide [Hydrodiuril] 25 mg PO DAILY tab 11/26/18 Nicotine 21Mg/24Hr Patch [Habitrol] 1 patch TRANSDERM DAILY #30 patch 11/26/18 Folic Acid 1 mg PO DAILY #30 tab 05/02/19 busPIRone HCl [Buspar] 10 mg PO TID #90 tab 05/02/19 Doxycycline [Vibramycin] 100 mg PO BID 7 Days #14 capsule 08/11/19 Nystatin 100,000 Unit/ml Susp 500,000 unit PO QID #120 ml 08/11/19 [Mycostatin Oral Susp] predniSONE 0 mg PO DIRECTED #30 tab 08/11/19 Allergies Allergy/AdvReac Type Severity Reaction Status Date / Time baclofen AdvReac URINARY Verified 08/09/19 11:34 ISSUES dexamethasone [From Decadron] AdvReac "THOMPSON Verified 08/09/19 11:34 SKIN"/DEHYDRATION Review of Systems ROS Statement: Those systems with pertinent positive or pertinent negative responses have been documented in the HPI. ROS Other: All systems not noted in ROS Statement are negative. Past Medical History Past Medical History: Asthma, Cancer, COPD, Eye Disorder, Fibromyalgia, GERD/Reflux, Hearing Disorder / Deafness, Hypertension, Memory Impairment, Neurologic Disorder, Osteoarthritis (OA), Pneumonia, Syncope Additional Past Medical History / Comment(s): MS relapsing/remitting type, chronic bilateral eye pain/optic neuritis/ poor vision, cataracts bilaterally, chronic occipital neuralgia, osteoporosis, RLS, chronic hypoxic respiratory failure with home oxygen 2L/NC prn, chronic bronchitis, immunocompromised, elevated blood sugar with steroid use, uterine cancer with hyster ectomy/radiation, heart murmur, mild cognitive impairment, chronic vertigo, falls, rheumatic fever as child, tinnitis bilaterally, allergic rhinitis. History of Any Multi-Drug Resistant Organisms: None Reported Past Surgical History: Bladder Surgery, Heart Catheterization, Hysterectomy Additional Past Surgical History / Comment(s): Nerve blocks, bladder suspension. Past Anesthesia/Blood Transfusion Reactions: No Reported Reaction Additional Past Anesthesia/Blood Transfusion Reaction / Comment(s): mild clausterphobia Past Psychological History: Anxiety, Depression Smoking Status: Current every day smoker Past Alcohol Use History: None Reported Past Drug Use History: None Reported - Past Family History Mother Family Medical History: CVA/TIA, Myocardial Infarction ([place]) Additional Family Medical History / Comment(s): Mother is alive at age 74 with history of brain aneurysm, 3 strokes and 2 myocardial infarctions. Brain aneurysms run on mother's side of family Father Additional Family Medical History / Comment(s): Father at age 72 from a cardiac arrest thought to be due to a myocardial infarction. Sister(s) Additional Family Medical History / Comment(s): Patient has 2 sisters with no major medical problems. Patient does not have any brothers. Patient has 2 adult children with no major medical problems. Patient is only family member with MS. General Exam Limitations: no limitations Course Vital Signs 09/04/19 09/04/19 09/04/19 08:02 08:09 08:13 Temperature 101.3 F H Pulse Rate 111 H 108 H Respiratory 21 22 22 Rate Blood Pressure 131/75 O2 Sat by Pulse 95 93 L Oximetry 09/04/19 09:00 Temperature Pulse Rate 98 Respiratory 16 Rate Blood Pressure 119/66 O2 Sat by Pulse 95 Oximetry Medical Decision Making - Lab Data Result diagrams: 09/04/19 08:05 09/04/19 08:05 Lab Results 09/04/19 09/04/19 09/04/19 Range/Units 08:05 08:05 08:05 WBC 13.3 H (3.8-10.6) k/uL RBC 4.35 (3.80-5.40) m/uL Hgb 13.9 (11.4-16.0) gm/dL Hct 44.4 (34.0-46.0) % MCV 102.1 H (80.0-100.0) fL MCH 31.9 (25.0-35.0) pg MCHC 31.3 (31.0-37.0) g/dL RDW 12.8 (11.5-15.5) % Plt Count 261 (150-450) k/uL Neutrophils % 72 % Lymphocytes % 20 % Monocytes % 4 % Eosinophils % 1 % Basophils % 0 % Neutrophils # 9.6 H (1.3-7.7) k/uL Lymphocytes # 2.7 (1.0-4.8) k/uL Monocytes # 0.6 (0-1.0) k/uL Eosinophils # 0.2 (0-0.7) k/uL Basophils # 0.1 (0-0.2) k/uL Hypochromasia Slight Macrocytosis Slight PT 10.2 (9.0-12.0) sec INR 1.0 (<1.2) APTT 22.9 (22.0-30.0) sec Sodium 136 L (137-145) mmol/L Potassium 3.8 (3.5-5.1) mmol/L Chloride 92 L (98-107) mmol/L Carbon Dioxide 39 H (22-30) mmol/L Anion Gap 5 mmol/L BUN 6 L (7-17) mg/dL Creatinine 0.45 L (0.52-1.04) mg/dL Est GFR (CKD-EPI)AfAm >90 (>60 ml/min/1.73 sqM) Est GFR (CKD-EPI)NonAf >90 (>60 ml/min/1.73 sqM) Glucose 133 H (74-99) mg/dL Plasma Lactic Acid Adalid (0.7-2.0) mmol/L Calcium 9.1 (8.4-10.2) mg/dL Magnesium 1.5 L (1.6-2.3) mg/dL Total Bilirubin 0.2 (0.2-1.3) mg/dL AST 20 (14-36) U/L ALT 19 (4-34) U/L Alkaline Phosphatase 87 (38-126) U/L C-Reactive Protein 42.0 H (<10.0) mg/L Total Protein 6.0 L (6.3-8.2) g/dL Albumin 3.9 (3.5-5.0) g/dL Coronavirus (PCR) (Not Detectd) 09/04/19 09/04/19 Range/Units 08:05 08:05 WBC (3.8-10.6) k/uL RBC (3.80-5.40) m/uL Hgb (11.4-16.0) gm/dL Hct (34.0-46.0) % MCV (80.0-100.0) fL MCH (25.0-35.0) pg MCHC (31.0-37.0) g/dL RDW (11.5-15.5) % Plt Count (150-450) k/uL Neutrophils % % Lymphocytes % % Monocytes % % Eosinophils % % Basophils % % Neutrophils # (1.3-7.7) k/uL Lymphocytes # (1.0-4.8) k/uL Monocytes # (0-1.0) k/uL Eosinophils # (0-0.7) k/uL Basophils # (0-0.2) k/uL Hypochromasia Macrocytosis PT (9.0-12.0) sec INR (<1.2) APTT (22.0-30.0) sec Sodium (137-145) mmol/L Potassium (3.5-5.1) mmol/L Chloride (98-107) mmol/L Carbon Dioxide (22-30) mmol/L Anion Gap mmol/L BUN (7-17) mg/dL Creatinine (0.52-1.04) mg/dL Est GFR (CKD-EPI)AfAm (>60 ml/min/1.73 sqM) Est GFR (CKD-EPI)NonAf (>60 ml/min/1.73 sqM) Glucose (74-99) mg/dL Plasma Lactic Acid Adalid 1.6 (0.7-2.0) mmol/L Calcium (8.4-10.2) mg/dL Magnesium (1.6-2.3) mg/dL Total Bilirubin (0.2-1.3) mg/dL AST (14-36) U/L ALT (4-34) U/L Alkaline Phosphatase (38-126) U/L C-Reactive Protein (<10.0) mg/L Total Protein (6.3-8.2) g/dL Albumin (3.5-5.0) g/dL Coronavirus (PCR) Not Detected (Not Detectd) Disposition Clinical Impression: SIRS (systemic inflammatory response syndrome) Disposition: ADMITTED IP TO THIS HOSP Condition: Fair Referrals: Kilo Tabares MD [Primary Care Provider] - 1-2 days Decision Time: 09:29
[2019-09-04] MEDS ORDERED: ACETAMINOPHEN TAB 325 MG TAB PO PRN (09:30)
[2019-09-04] MEDS ORDERED: ONDANSETRON 4 MG/2 ML VIAL IVP PRN (09:30)
[2019-09-04] MEDS ORDERED: NALOXONE 0.4 MG/ML 1 ML VIAL IV PRN (09:30)
[2019-09-04] MEDS ORDERED: oxyCODONE-APAP 5-325MG 1 EACH TAB PO PRN (09:30)
[2019-09-04] MEDS ORDERED: AZITHROMYCIN 500 MG in SODIUM CHLORIDE 0.9% 250 ML IVPB STA (09:31)
[2019-09-04] MEDS ORDERED: IPRATROPIUM-ALBUTEROL 3 ML NEB INHALATION PRN ×2 (09:38→11:02)
[2019-09-04] MEDS: MAGNESIUM SULFATE-D5W PMX 1 GM in DEXTROSE/WATER 1 100ML.BAG IVPB SCH ×2 (09:39→13:05)
[2019-09-04 09:51] LABS: Appearance,Urine Clear (Clear); Bilirubin,Urine Negative (Negative); Blood,Urine Negative (Negative); Color,Urine Light Yellow; Glucose,Urine (UA) Negative (Negative); Ketones,Urine Negative (Negative); Leukocyte Esterase,Urine Negative (Negative); Nitrite,Urine Negative (Negative); Protein,Urine Negative (Negative); Specific Gravity,Urine 1.005 (1.001-1.035); Urobilinogen,Urine <2.0 mg/dL (<2.0)
[2019-09-04] MEDS ORDERED: ALBUTEROL HFA INHALER INHALATION PRN (11:02)
[2019-09-04] MEDS ORDERED: FLUTICASONE 50MCG/SPRAY NASAL 16GM EA NOSTRIL PRN (11:02)
[2019-09-04] MEDS: SODIUM CHLORIDE 0.9% 1,000 ML IV SCH (11:17)
--- NOTE | 2019-09-04 11:20 | P.HPIM ---
History of Present Illness H&P Date: 09/04/19 Chief Complaint: fever, headache, cough This is a 53-year-old female patient of Dr. Tabares and Dr. Ramirez with a previous medical history significant for relapsing remitting multiple sclerosis, hypertension and hypertensive cardiovascular disease with left ventricular hypertrophy, history of GERD, multiple sclerosis, COPD, asthma, history of osteoporosis, uterine cancer status post surgery, chronic hypoxic respiratory failure on home O2 at 2 L nasal cannula, tobacco use.. Patient has had multiple admissions for acute exacerbation of MS. Most recently she was hospitalized August 08 through August 10 which time she was treated for pneumonia. Patient states she started having a fever yesterday along with chills and muscle aches. She has a cough with clear sputum production. She denies any abdominal pain, no diarrhea. She complains of weak and has generalized all over and lower extremity edema and 2 recent falls. She states she has had uncontrolled movement of her extremities. She denies any dysuria. She complains of a headache that is very severe more so than her baseline headaches. Goes around from the frontal area to the back occipital region. Patient does continue to smoke 1 pack per day. Patient came into [facility] emergency center for evaluation and found to be febrile with a temperature of 101.3, heart rate 108, blood pressure 131/75 and pulse ox 93% on 2 L. WBC 13.3, hemoglobin 13.9, platelet count 261. Sodium 136, potassium 3.8, chloride 92, CO2 39, BUN 6 and creatinine 0.45. Blood sugar 133. Lactic acid 1.6. Magnesium 1.5 and was replaced in the emergency center. C-reactive protein 42. Coronavirus PCR not detected. Urinalysis negative. [facility] and consult requested with Dr. Cuevas and Dr. Roberts. Review of Systems Constitutional: Reports chills, Reports fatigue, Reports fever, Reports lethargy, Reports malaise Eyes: denies blurred vision, denies pain Ears, nose, mouth and throat: Denies dysphagia, Denies headache, Denies nasal congestion, Denies nasal discharge, Denies sore throat, Denies vertigo Cardiovascular: Reports dyspnea on exertion, Denies chest pain, Denies edema, Denies irregular heart beat, Denies leg edema, Denies lightheadedness, reports shortness of breath, Denies syncope Respiratory: Reports cough, Reports cough with white sputum, Reports dyspnea, Denies excessive sputum, Denies hemoptysis, reports home oxygen, Denies wheezing Gastrointestinal: Denies abdominal pain, Denies diarrhea, Denies loss of appetite, Denies nausea, Denies vomiting Genitourinary: Denies dysuria, Denies hematuria, Denies urgency, Denies urinary frequency Musculoskeletal: Reports two falls, Reports gait dysfunction, Reports muscle weakness, reports myalgias Integumentary: Denies pruritus, Denies rash, Denies wounds Neurological: Denies change in mentation, Denies change in speech, Denies numbness, Denies weakness Psychiatric: Denies anxiety, Denies depression Endocrine: Denies fatigue, Denies weight change Past Medical History Past Medical History: Asthma, Cancer, COPD, Eye Disorder, Fibromyalgia, GERD/Reflux, Hearing Disorder / Deafness, Hypertension, Memory Impairment, Neurologic Disorder, Osteoarthritis (OA), Pneumonia, Syncope Additional Past Medical History / Comment(s): MS relapsing/remitting type, chronic bilateral eye pain/optic neuritis/ poor vision, cataracts bilaterally, chronic occipital neuralgia, osteoporosis, RLS, chronic hypoxic respiratory failure with home oxygen 2L/NC prn, chronic bronchitis, immunocompromised, elevated blood sugar with steroid use, uterine cancer with hysterectomy/radiation, heart murmur, mild cognitive impairment, chronic vertigo, falls, rheumatic fever as child, tinnitis bilaterally, allergic rhinitis. History of Any Multi-Drug Resistant Organisms: None Reported Past Surgical History: Bladder Surgery, Heart Catheterization, Hysterectomy Additional Past Surgical History / Comment(s): Nerve blocks, bladder suspension. Past Anesthesia/Blood Transfusion Reactions: No Reported Reaction Additional Past Anesthesia/Blood Transfusion Reaction / Comment(s): mild clausterphobia Past Psychological History: Anxiety, Depression Smoking Status: Current every day smoker Past Alcohol Use History: None Reported Additional Past Alcohol Use History / Comment(s): Patient started smoking at age 18 and has smoked on and off since then. She is currently smoking 1 pack per day. Past Drug Use History: None Reported - Past Family History Mother Family Medical History: CVA/TIA, Myocardial Infarction ([place]) Additional Family Medical History / Comment(s): Mother is alive at age 74 with history of brain aneurysm, 3 strokes and 2 myocardial infarctions. Brain aneurysms run on mother's side of family Father Additional Family Medical History / Comment(s): Father at age 72 from a cardiac arrest thought to be due to a myocardial infarction. Sister(s) Additional Family Medical History / Comment(s): Patient has 2 sisters with no major medical problems. Patient does not have any brothers. Patient has 2 adult children with no major medical problems. Patient is only family member with MS. Medications and Allergies Home Medications Medication Instructions Recorded Confirmed Type Aspirin 81 mg PO DAILY 02/20/14 09/04/19 History LORazepam [Ativan] 1 mg PO Q8H PRN 02/20/14 09/04/19 History Verapamil HCl [Calan] 120 mg PO DAILY 02/20/14 09/04/19 History Gabapentin [Neurontin] 1,200 mg PO TID 08/19/16 09/04/19 History Butalb/APAP/Caff 50-325-40Mg 1 tab PO Q8H PRN 03/25/17 09/04/19 History [Fioricet 50-325-40] oxyCODONE-APAP 10-325MG [Percocet 1 tab PO TID PRN 01/28/18 09/04/19 History 10-325 mg] rOPINIRole HCL [Requip] 0.25 mg PO TID #90 tab 01/31/18 09/04/19 Rx Budesonide/Formoterol Fumarate 2 puff INHALATION RT-BID 05/06/18 09/04/19 History [Symbicort 160-4.5 Mcg Inhaler] Cholecalciferol [Vitamin D3 (25 2,000 unit PO DAILY 05/07/18 09/04/19 History Mcg = 1000 Iu)] Multivitamins, Thera [Multivitamin 1 tab PO DAILY 05/07/18 09/04/19 History (formulary)] PARoxetine [Paxil] 40 mg PO DAILY tab 05/09/18 09/04/19 Rx Pantoprazole Sodium [Protonix] 40 mg PO BID 10/31/18 09/04/19 History Ipratropium-Albuterol Nebulize 3 ml INHALATION RT-QID PRN 11/22/18 09/04/19 History [Duoneb 0.5 mg-3 mg/3 ml Soln] Memantine [Namenda] 10 mg PO BID 11/22/18 09/04/19 History Montelukast [Singulair] 10 mg PO DAILY 11/22/18 09/04/19 History Hydrochlorothiazide [Hydrodiuril] 25 mg PO DAILY tab 11/26/18 09/04/19 Rx Nicotine 21Mg/24Hr Patch [Habitrol] 1 patch TRANSDERM DAILY #30 patch 11/26/18 09/04/19 Rx Fluticasone Nasal [place] [Flonase 2 spray EA NOSTRIL DAILY PRN 04/28/19 09/04/19 History Nasal [place]] Methocarbamol [Robaxin-750] 750 mg PO BID 04/28/19 09/04/19 History Folic Acid 1 mg PO DAILY #30 tab 05/02/19 09/04/19 Rx busPIRone HCl [Buspar] 10 mg PO TID #90 tab 05/02/19 09/04/19 Rx Albuterol Sulfate [Ventolin HFA] 1 - 2 puff INHALATION Q6H PRN 08/09/19 09/04/19 History Nystatin 100,000 Unit/ml Susp 500,000 unit PO QID PRN 09/04/19 09/04/19 History [Mycostatin Oral Susp] Allergies Allergy/AdvReac Type Severity Reaction Status Date / Time baclofen AdvReac URINARY Verified 08/09/19 11:34 ISSUES dexamethasone [From Decadron] AdvReac "THOMPSON Verified 08/09/19 11:34 SKIN"/DEHYDRATION Physical Exam Vitals: Vital Signs Temp Pulse Resp BP Pulse Ox 09/04/19 09:00 98 16 119/66 95 09/04/19 08:13 22 09/04/19 08:09 101.3 F H 108 H 22 131/75 93 L 09/04/19 08:02 111 H 21 95 Intake and Output 09/03/19 09/04/19 09/04/19 22:59 06:59 14:59 Other: Weight 106.141 kg - Constitutional General appearance: Morbidly obese body habitus, cooperative, no acute distress, appears anxious - EENT Eyes: anicteric sclerae, PERRLA, dentition normal - Neck Neck: normal ROM - Respiratory Respiratory: bilateral: CTA, negative: diminished, dullness - Cardiovascular Rhythm: regular Heart sounds: normal: S1, S2 Abnormal Heart Sounds: no systolic murmur, no diastolic murmur, no rub, no S3 Gallop, no S4 Gallop, no click, no other Trace bilateral lower extremity edema - Gastrointestinal General gastrointestinal: normal bowel sounds, soft, nontender - Integumentary Integumentary: decreased turgor, normal - Neurologic Neurologic: CNII-XII intact, generalized weakness (No cranial deficits) - Musculoskeletal Generalized weakness of the upper and lower extremities right arm slightly more weak than left. Musculoskeletal: generalized weakness, strength equal bilaterally Results CBC & Chem 7: 09/04/19 08:05 09/04/19 08:05 Labs: Abnormal Lab Results - Last 24 Hours (Table) 09/04/19 09/04/19 Range/Units 08:05 08:05 WBC 13.3 H (3.8-10.6) k/uL MCV 102.1 H (80.0-100.0) fL Neutrophils # 9.6 H (1.3-7.7) k/uL Sodium 136 L (137-145) mmol/L Chloride 92 L (98-107) mmol/L Carbon Dioxide 39 H (22-30) mmol/L BUN 6 L (7-17) mg/dL Creatinine 0.45 L (0.52-1.04) mg/dL Glucose 133 H (74-99) mg/dL Magnesium 1.5 L (1.6-2.3) mg/dL C-Reactive Protein 42.0 H (<10.0) mg/L Total Protein 6.0 L (6.3-8.2) g/dL Thrombosis Risk Factor Assmnt - DVT/VTE Prophylaxis DVT/VTE Prophylaxis: Pharmacologic Prophylaxis ordered Assessment and Plan Plan: 1. Febrile illness of unclear etiology. COVID-19 infection ruled out. Consult with Dr. Roberts and Dr. Cuevas. Covid 19 testing is negative. Patient received 1 dose of Zithromax and ceftriaxone in the emergency center. 2. Generalized weakness possibly related to acute febrile illness, cannot rule out superimposed MS exacerbation. 3. History of relapsing remitting multiple sclerosis. 4. Chronic pain and occipital neuralgia under the care of Dr. Ramirez. Continue gabapentin 1200mg 3 times daily-patient will take own medication from home, Percocet one 3 times daily as needed, Fioricet as needed. 5. Hypertension and hypertensive cardiovascular disease. Continue hydrochlorothiazide 25 mg daily, verapamil 120 mg orally once every day. 6. Obesity with possible obstructive sleep apnea and obesity hypoventilation syndrome. Recommend outpatient sleep study 7. Mild intermittent asthma and COPD. Continue albuterol inhaler every 6 hours as needed, Symbicort twice daily, Singulair 10 mg daily, Spiriva daily, Flonase as needed. 8. Fibromyalgia. Continue gabapentin 1200 mg orally 3 times every day. 8. Generalized anxiety. Continue Ativan 1 mg every 8 hours as needed. 9. Recurrent depression. Continue Paxil 40 mg daily. 10. Chronic tobacco use and dependence. Smoking cessation and counseling an increased risk of CAD, CVA, and malignancy. Continue nicotine patch 21 mg once every day. 11. Mild cognitive impairment. Continue patient on Namenda 10 mg orally twice every day. 13. Restless leg syndrome. Continue Requip 0.25 mg 2 times daily 14. DVT prophylaxis. Lovenox 40 mg subcutaneously every 24 hours. 15. GERD and GI prophylaxis. Continue with Protonix 40 mg orally twice every day. CODE STATUS: Full code Patient minutes to the hospital for a minimum of 2 night stay. Impression and plan of care have been directed as dictated by the signing physician. Elaine Nguyen nurse practitioner acting as scribe for signing physician.
[2019-09-04] MEDS: busPIRone HCl 10 MG TAB PO SCH ×2 (15:34→22:09)
[2019-09-04] MEDS: METHOCARBAMOL 750 MG TAB PO SCH ×2 (15:35→22:09)
[2019-09-04] MEDS: IOPAMIDOL CONTRAST (ORAL USE) VIAL PO PRN ×2 (15:35→16:38)
[2019-09-04] MEDS: GABAPENTIN 600 MG PO SCH ×2 (15:35→22:09)
[2019-09-04] MEDS: oxyCODONE-APAP 10-325MG 1 EACH TAB PO PRN ×2 (15:49→23:30)
[2019-09-04] MEDS: PANTOPRAZOLE 40 MG TABLET PO SCH (15:49)
[2019-09-04] MEDS: BUTALB/APAP/CAFF 50-325-40MG TAB PO PRN ×2 (15:50→23:30)
[2019-09-04] MEDS ORDERED: GABAPENTIN 400 MG CAP PO SCH (16:00)
[2019-09-04] MEDS: ALBUTEROL HFA INHALER INHALATION PRN ×2 (16:03→21:18)
[2019-09-04] MEDS: LORazepam 1 MG TAB PO PRN ×2 (16:38→23:30)
--- NOTE | 2019-09-04 17:47 | CT ---
EXAMINATION TYPE: CT abdomen pelvis w con DATE OF EXAM: 09/04/2019 COMPARISON: None HISTORY: Abdomial pain and fever CT DLP: 2100 mGycm Automated exposure control for dose reduction was used. CONTRAST: Performed with IV Contrast, patient injected with 100 mL of Isovue 300. There is oral contrast also. There is 5 mm noncalcified low-density nodule posterior right lower lobe. There is no pleural effusio n. There is mild subsegmental atelectasis right lung base. Heart size is normal. There is no pericard ial effusion. The bile ducts are not dilated. Gallbladder is intact. There is 2 cm cyst in the left l obe of the liver. Spleen is intact there is no pancreatic mass. Stomach appears normal. There is no adrenal mass. There are small high density foci in the kidneys that measure up to 3 mm. I t is not clear if this is renal calculi or contrast.. The ureters are not dilated. There is no hydron ephrosis. Kidneys have normal size and contour. There is no retroperitoneal adenopathy. Bladder diste nds smoothly. There is no inguinal hernia. There is hysterectomy. There is no evidence of a pelvic ma ss. The appendix is posterior and appears normal. There is no mesenteric edema. There is no ascites o r free air. There is no sign of a bowel obstruction. There are multiple sigmoid diverticula. There is no sign of diverticulitis. Lumbar spine is intact. There is no compression fracture. Bony pelvis appears intact. There is mild r etained fecal material in the large bowel. IMPRESSION: Normal appendix. No sign of acute abdomen and pelvis. Mild constipation. Possible small bilateral geoff al calculi.
[2019-09-04] MEDS: SYMBICORT 160-4.5 MCG INHALER INHALATION SCH (21:17)
--- NOTE | 2019-09-04 22:00 | P.CONS ---
History of Present Illness - Reason for Consult Consult date: 09/04/19 Fever Requesting physician: Deneen Thomason - Chief Complaint Fever and shortness of breath x 1 day - History of Present Illness Patient is a 53-year female with past medical history of pain for MS presenting to the ER at [facility] this morning with chief complaints of fever of 1 day duration along with shortness of breath patient had also complaining of headache mostly generalized throbbing with some photophobia and nausea but no vomiting she denies any other URI symptoms sore shortness of breath and did have a cough which has been mild in intensity not bringing up any sputum patient also complaining of some left lower abdominal pain for the last 2 days more of a dull aching at times sharp" 3-4 out of 10 and no radiation denies any diarrhea or constipation and no urinary symptoms with the symptom had the patient was evaluated by the ER physician on arrival to the ER the patient did have a chest x-ray which did shows cardiomegaly but no acute infiltrate patient did have a fever of one 1.3 on admission and her white count was elevated at 13.3 with no neutropenia liver enzymes are normal CRP was elevated UA was negative, PCR was negative patient received a dose of Rocephin and Zithromax in the ER she has been admitted to hospital infectious was consulted for further recommendation regarding her fever. Review of Systems Positive point has been mentioned in HPI rest of the systems are negative Past Medical History Past Medical History: Asthma, Cancer, COPD, Eye Disorder, Fibromyalgia, GERD/Reflux, Hearing Disorder / Deafness, Hypertension, Memory Impairment, Ne urologic Disorder, Osteoarthritis (OA), Pneumonia, Syncope Additional Past Medical History / Comment(s): MS relapsing/remitting type, chronic bilateral eye pain/optic neuritis/ poor vision, cataracts bilaterally, chronic occipital neuralgia, osteoporosis, RLS, chronic hypoxic respiratory failure with home oxygen 2L/NC prn, chronic bronchitis, immunocompromised, elevated blood sugar with steroid use, uterine cancer with hysterectomy/radiation, heart murmur, mild cognitive impairment, chronic vertigo, falls, rheumatic fever as child, tinnitis bilaterally, allergic rhinit is. History of Any Multi-Drug Resistant Organisms: None Reported Past Surgical History: Bladder Surgery, Heart Catheterization, Hysterectomy Additional Past Surgical History / Comment(s): Nerve blocks, bladder suspension. Past Anesthesia/Blood Transfusion Reactions: No Reported Reaction Additional Past Anesthesia/Blood Transfusion Reaction / Comm: mild clausterphobia Past Psychological History: Anxiety, Depression Smoking Status: Current every day smoker Past Alcohol Use History: None Reported Additional Past Alcohol Use History / Comment(s): Patient started smoking at age 18 and has smoked on and off since then. She is currently smoking 1 pack per day. Past Drug Use History: None Reported - Past Family History Mother Family Medical History: CVA/TIA, Myocardial Infarction ([place]) Additional Family Medical History / Comment(s): Mother is alive at age 74 with h istory of brain aneurysm, 3 strokes and 2 myocardial infarctions. Brain aneurysms run on mother's side of family Father Additional Family Medical History / Comment(s): Father at age 72 from a cardiac arrest thought to be due to a myocardial infarction. Sister(s) Additional Family Medical History / Comment(s): Patient has 2 sisters with no major medical problems. Patient does not have any brothers. Patient has 2 adult children with no major medical problems. Patient is only family member with MS. Medications and Allergies Home Medications Medication Instructions Recorded Confirmed Type Aspirin 81 mg PO DAILY 02/20/14 09/04/19 History LORazepam [Ativan] 1 mg PO Q8H PRN 02/20/14 09/04/19 History Verapamil HCl [Calan] 120 mg PO DAILY 02/20/14 09/04/19 History Gabapentin [Neurontin] 1,200 mg PO TID 08/19/16 09/04/19 History Butalb/APAP/Caff 50-325-40Mg 1 tab PO Q8H PRN 03/25/17 09/04/19 History [Fioricet 50-325-40] oxyCODONE-APAP 10-325MG [Percocet 1 tab PO TID PRN 01/28/18 09/04/19 History 10-325 mg] rOPINIRole HCL [Requip] 0.25 mg PO TID #90 tab 01/31/18 09/04/19 Rx Budesonide/Formoterol Fumarate 2 puff INHALATION RT-BID 05/06/18 09/04/19 History [Symbicort 160-4.5 Mcg Inhaler] Cholecalciferol [Vitamin D3 (25 2,000 unit PO DAILY 05/07/18 09/04/19 History Mcg = 1000 Iu)] Multivitamins, Thera [Multivitamin 1 tab PO DAILY 05/07/18 09/04/19 History (formulary)] PARoxetine [Paxil] 40 mg PO DAILY tab 05/09/18 09/04/19 Rx Pantoprazole Sodium [Protonix] 40 mg PO BID 10/31/18 09/04/19 History Ipratropium-Albuterol Nebulize 3 ml INHALATION RT-QID PRN 11/22/18 09/04/19 History [Duoneb 0.5 mg-3 mg/3 ml Soln] Memantine [Namenda] 10 mg PO BID 11/22/18 09/04/19 History Montelukast [Singulair] 10 mg PO DAILY 11/22/18 09/04/19 History Hydrochlorothiazide [Hydrodiuril] 25 mg PO DAILY tab 11/26/18 09/04/19 Rx Nicotine 21Mg/24Hr Patch [Habitrol] 1 patch TRANSDERM DAILY #30 patch 11/26/18 09/04/19 Rx Fluticasone Nasal [place] [Flonase 2 spray EA NOSTRIL DAILY PRN 04/28/19 09/04/19 History Nasal [place]] Methocarbamol [Robaxin-750] 750 mg PO BID 04/28/19 09/04/19 History Folic Acid 1 mg PO DAILY #30 tab 05/02/19 09/04/19 Rx busPIRone HCl [Buspar] 10 mg PO TID #90 tab 05/02/19 09/04/19 Rx Albuterol Sulfate [Ventolin HFA] 1 - 2 puff INHALATION RT-Q6H PRN 08/09/19 09/04/19 History Nystatin 100,000 Unit/ml Susp 500,000 unit PO QID 09/04/19 09/04/19 History [Mycostatin Oral Susp] Allergies Allergy/AdvReac Type Severity Reaction Status Date / Time baclofen AdvReac URINARY Verified 09/04/19 15:55 ISSUES dexamethasone [From Decadron] AdvReac "THOMPSON Verified 09/04/19 15:55 SKIN"/DEHYDRATION Physical Exam Vitals: Vital Signs Temp Pulse Pulse Resp BP BP Pulse Ox 09/04/19 19:31 98.2 F 76 16 101/66 99 09/04/19 15:00 98.6 F 86 16 96/72 98 09/04/19 10:49 98.8 F 98 18 108/75 99 09/04/19 10:00 92 20 105/52 09/04/19 09:43 99.4 F 09/04/19 09:00 98 16 119/66 95 09/04/19 08:13 22 09/04/19 08:09 101.3 F H 108 H 22 131/75 93 L 09/04/19 08:02 111 H 21 95 Intake and Output 09/04/19 09/04/19 09/04/19 06:59 14:59 22:59 Intake Total 222 Balance 222 Intake: Oral 222 Other: Voiding Method Toilet # Voids 1 1 Weight 106.141 kg GENERAL DESCRIPTION: Middle-aged female lying in bed, no distress. No tachypnea or accessory muscle of respiration use. HEENT: Shows Pallor , no scleral icterus. Oral mucous membrane is dry. NECK: Trachea central, no thyromegaly. LUNGS: Unlabored breathing. Decreased breath on the base. No wheeze or crackle. HEART: S1, S2, regular rate and rhythm. ABDOMEN: Soft, no tenderness , guarding or rigidity EXTREMITIES: No edema of feet. SKIN: No rash, no masses palpable. NEUROLOGICAL: The patient is awake, alert, oriented x3, mood and affect normal. Results CBC & Chem 7: 09/04/19 08:05 09/04/19 08:05 Labs: Abnormal Lab Results - Last 24 Hours (Table) 09/04/19 09/04/19 Range/Units 08:05 08:05 WBC 13.3 H (3.8-10.6) k/uL MCV 102.1 H (80.0-100.0) fL Neutrophils # 9.6 H (1.3-7.7) k/uL Sodium 136 L (137-145) mmol/L Chloride 92 L (98-107) mmol/L Carbon Dioxide 39 H (22-30) mmol/L BUN 6 L (7-17) mg/dL Creatinine 0.45 L (0.52-1.04) mg/dL Glucose 133 H (74-99) mg/dL Magnesium 1.5 L (1.6-2.3) mg/dL C-Reactive Protein 42.0 H (<10.0) mg/L Total Protein 6.0 L (6.3-8.2) g/dL Assessment and Plan Assessment: -patient present to the hospital with fever of 1 days duration this we also have elevated white count 13,000 symptom has been both pulmonary as well as abdominal though the chest x-ray has been reported negative for any pneumonia UA has been negative and no evidence of any cellulitis with a question of possible abdominal source as the patient is complaining of some left abdominal pain question of d iverticulitis (1) SIRS (systemic inflammatory response syndrome) Current Visit: Yes Status: Acute Code(s): R65.10 - SIRS OF NON-INFECTIOUS ORIGIN W/O ACUTE ORGAN DYSFUNCTION SNOMED Code(s): 934709853 Plan: 1-we will obtain a CT of abdominal pelvis that should evaluate bases of the lung in addition to the abdominal organs 2- We will continue the patient Rocephin 1 g daily while waiting for the culture finalized and work-up to be completed 3-gentle IV fluid We will follow on clinical condition and cultures to further adjust medication if needed Thank you for this consultation we will follow the patient along with you Time with Patient: Greater than 30
[2019-09-04] MEDS: HEPARIN SODIUM,PORCINE 5,000 UNIT/ML 1 ML VIAL SQ SCH (22:07)
[2019-09-04] MEDS: MELATONIN 5 MG TABLET PO SCH (22:09)
[2019-09-04] MEDS: MEMANTINE 10 MG TAB PO SCH (22:09)
[2019-09-05] MEDS: MONTELUKAST 10 MG TAB PO SCH (07:48)
[2019-09-05] MEDS: VERAPAMIL SR 120 MG TABLET.ER PO SCH (07:48)
[2019-09-05] MEDS: GABAPENTIN 600 MG PO SCH ×3 (07:48→22:50)
[2019-09-05] MEDS: HEPARIN SODIUM,PORCINE 5,000 UNIT/ML 1 ML VIAL SQ SCH ×2 (07:48→22:51)
[2019-09-05] MEDS: NICOTINE 21MG/24HR PATCH TRANSDERM SCH (07:48)
[2019-09-05] MEDS: BUTALB/APAP/CAFF 50-325-40MG TAB PO PRN ×3 (07:49→22:49)
[2019-09-05] MEDS: PANTOPRAZOLE 40 MG TABLET PO SCH ×2 (07:49→17:19)
[2019-09-05] MEDS: oxyCODONE-APAP 10-325MG 1 EACH TAB PO PRN ×3 (07:49→22:49)
[2019-09-05] MEDS: HYDROCHLOROTHIAZIDE 25 MG TAB PO SCH (07:49)
[2019-09-05] MEDS: METHOCARBAMOL 750 MG TAB PO SCH ×3 (07:49→22:50)
[2019-09-05] MEDS: CHOLECALCIFEROL 1,000 UNIT TAB PO SCH (07:49)
[2019-09-05] MEDS: LORazepam 1 MG TAB PO PRN ×3 (07:49→22:50)
[2019-09-05] MEDS: MEMANTINE 10 MG TAB PO SCH ×2 (07:50→22:51)
[2019-09-05] MEDS: PARoxetine 20 MG TAB PO SCH (07:50)
[2019-09-05] MEDS: ASPIRIN 81 MG PO SCH (07:50)
[2019-09-05] MEDS: busPIRone HCl 10 MG TAB PO SCH ×3 (07:50→22:51)
[2019-09-05] MEDS: MULTIVITAMINS, THERA 1 EACH TAB PO SCH (07:50)
[2019-09-05] MEDS: FOLIC ACID 1 MG TAB PO SCH (07:50)
[2019-09-05 08:08] LABS: African American GFR (CKD) >90 (>60 ml/min/1.73 sqM); Anion Gap 4 mmol/L; Blood Urea Nitrogen 8 mg/dL (7-17); Calcium 8.5 mg/dL (8.4-10.2); Chloride 95 mmol/L (98-107); Glucose 91 mg/dL (74-99); Non-African American GFR(CKD) >90 (>60 ml/min/1.73 sqM); Potassium 3.6 mmol/L (3.5-5.1); Sodium 139 mmol/L (137-145)
[2019-09-05] MEDS: ALBUTEROL HFA INHALER INHALATION PRN ×3 (08:08→18:58)
[2019-09-05] MEDS: SYMBICORT 160-4.5 MCG INHALER INHALATION SCH ×2 (08:08→18:58)
[2019-09-05 08:37] LABS: Basophils # (A) 0.1 k/uL (0-0.2); Basophils % (A) 1 %; Eosinophils # (A) 0.2 k/uL (0-0.7); Eosinophils % (A) 2 %; HCT 42.2 % (34.0-46.0); HGB 13.1 gm/dL (11.4-16.0); Hypochromasia Moderate; Lymphocytes % (A) 20 %; MCHC 31.1 g/dL (31.0-37.0); MCV 102.9 fL (80.0-100.0); Macrocytosis Slight; Mean Platelet Volume 8.4; Monocytes # (A) 0.7 k/uL (0-1.0); Monocytes % (A) 7 %; Neutrophils # (A) 6.7 k/uL (1.3-7.7); Neutrophils % (A) 68 %; Platelet Count 226 k/uL (150-450); WBC 9.8 k/uL (3.8-10.6)
[2019-09-05] MEDS ORDERED: PANTOPRAZOLE 40 MG/10 ML VIAL IV SCH (09:00)
[2019-09-05 09:04] LABS: Poikilocytosis (M) Present
[2019-09-05 09:16] LABS: Carbon Dioxide 40 mmol/L (22-30)
[2019-09-05] MEDS: SODIUM CHLORIDE 0.9% 1,000 ML IV SCH (09:18)
[2019-09-05 09:34] LABS: C Reactive Protein 46.2 mg/L (<10.0)
--- NOTE | 2019-09-05 11:23 | P.PN ---
Subjective Progress Note Date: 09/05/19 This is a 53-year-old female patient of Dr. Tabares and Dr. Ramirez with a previous medical history significant for relapsing remitting multiple sclerosis, hypertension and hypertensive cardiovascular disease with left ventricular hypertrophy, history of GERD, multiple sclerosis, COPD, asthma, history of oste oporosis, uterine cancer status post surgery, chronic hypoxic respiratory failure on home O2 at 2 L nasal cannula, tobacco use.. Patient has had multiple admissions for acute exacerbation of MS. Most recently she was hospitalized August 08 through August 10 which time she was treated for pneumonia. Patient states she started having a fever yesterday along with chills and muscle aches. She has a cough with clear sputum production. She denies any abdominal pain, no diarrhea. She complains of weak and has generalized all over and lower extremity edema and 2 recent falls. She states she has had uncontrolled movement of her extremities. She denies any dysuria. She complains of a headache that is very severe more so than her baseline headaches. Goes around from the frontal area to the back occipital region. Patient does continue to smoke 1 pack per day. Patient came into [facility] emergency center for evaluation and found to be febrile with a temperature of 101.3, heart rate 108, blood pressure 131/75 and pulse ox 93% on 2 L. WBC 13.3, hemoglobin 13.9, platelet c ount 261. Sodium 136, potassium 3.8, chloride 92, CO2 39, BUN 6 and creatinine 0.45. Blood sugar 133. Lactic acid 1.6. Magnesium 1.5 and was replaced in the emergency center. C-reactive protein 42. Coronavirus PCR not detected. Urinalysis negative. Patient admitted to the [facility] floor and consult requested with Dr. Cuevas and Dr. Roberts. 09/04: [facility] Echocardiogram was completed this morning report is pending. Patient continues to have significant headache without nuchal rigidity. Voltaren gel will be added. Dr. Cuevas has evaluated the patient started her on Rocephin and ordered a CAT scan of the abdomen and pelvis which revealed no sign of acute abdomen and pelvis. Mild constipation. Possible small bilateral renal calculi. Patient has been afebrile since admission, heart rate 79, blood pressure 130/72, pulse ox 94% on 3 L nasal cannula. WBC is down to 9.8, hemoglobin 13.1, platelet count 226. Sodium 139, potassium 3.6, chloride 95, CO2 40, BUN 8 and creatinine 0.43. C-reactive protein 46.2. Influenza testing not detected. Urinalysis clear with nitrate and leukoesterase negative. Blood culture showing no growth at 24 hours. Echocardiogram ordered for new murmur. Objective - Vital Signs Vital signs: Vital Signs Temp 98.2 F 09/05/19 01:06 Pulse 80 09/05/19 01:06 Resp 15 09/05/19 01:06 BP 97/65 09/05/19 01:06 Pulse Ox 94 L 09/05/19 07:50 Intake & Output 09/04/19 09/05/19 09/05/19 18:59 06:59 18:59 Intake Total 222 630 Balance 222 630 Weight 106.141 kg Intake: Intake, IV Titration 50 Amount cefTRIAXone 1 gm In 50 Sodium Chloride 0.9% 50 ml @ 100 mls/hr IVPB Q24HR [facility] Rx#:[id number] Oral 222 580 Other: Voiding Method Toilet Toilet # Voids 1 1 - Exam Review of Systems Constitutional: Reports chills, Reports fatigue, Reports fever, Reports lethargy, Reports malaise Eyes: denies blurred vision, denies pain Ears, nose, mouth and throat: Denies dysphagia, Denies headache, Denies nasal congestion, Denies nasal discharge, Denies sore throat, Denies vertigo Cardiovascular: Reports dyspnea on exertion, Denies chest pain, Denies edema, Denies irregular heart beat, Denies leg edema, Denies lightheadedness, reports shortness of breath, Denies syncope Respiratory: Reports cough, Reports cough with white sputum, Reports dyspnea, Denies excessive sputum, Denies hemoptysis, reports home oxygen, Denies wheezing Gastrointestinal: Denies abdominal pain, Denies diarrhea, Denies loss of appetite, Denies nausea, Denies vomiting Genitourinary: Denies dysuria, Denies hematuria, Denies urgency, Denies urinary frequency Musculoskeletal: Reports two falls, Reports gait dysfunction, Reports muscle we akness, reports myalgias Integumentary: Denies pruritus, Denies rash, Denies wounds Neurological: Denies change in mentation, Denies change in speech, Denies numbness, Denies weakness Psychiatric: Denies anxiety, Denies depression Endocrine: Denies fatigue, Denies weight change Physical examination - Constitutional General appearance: Morbidly obese body habitus, cooperative, no acute distress, appears anxious - EENT Eyes: anicteric sclerae, PERRLA, dentition normal - Neck Neck: normal ROM - Respiratory Respiratory: bilateral: CTA, negative: diminished, dullness - Cardiovascular Rhythm: regular Heart sounds: normal: S1, S2 Abnormal Heart Sounds: systolic murmur left sternal border, no diastolic murmur, no rub, no S3 Gallop, no S4 Gallop, no click, no other Trace bilateral lower extremity edema - Gastrointestinal General gastrointestinal: normal bowel sounds, soft, nontender - Integumentary Integumentary: decreased turgor, normal - Neurologic Neurologic: CNII-XII intact, generalized weakness (No cranial deficits) - Musculoskeletal Generalized weakness of the upper and lower extremities Musculoskeletal: generalized weakness, strength equal bilaterally - Labs CBC & Chem 7: 09/05/19 07:09 09/05/19 07:09 Labs: Abnormal Lab Results - Last 24 Hours (Table) 09/05/19 09/05/19 Range/Units 07:09 07:09 MCV 102.9 H (80.0-100.0) fL Chloride 95 L (98-107) mmol/L Carbon Dioxide 40 H (22-30) mmol/L Creatinine 0.43 L (0.52-1.04) mg/dL C-Reactive Protein 46.2 H (<10.0) mg/L Assessment and Plan Plan: 1. Febrile illness of unclear etiology. COVID-19 infection ruled out. Consult with Dr. Roberts and Dr. Cuevas. Covid 19 testing is negative. CAT scan of the abdomen and pelvis as above. Patient is currently on Rocephin. Blood culture showing no growth. Influenza testing negative. Echocardiogram ordered. 2. Generalized weakness possibly related to acute febrile illness with underlying MS. 3. History of relapsing remitting multiple sclerosis. 4. Chronic pain and occipital neuralgia under the care of Dr. Ramirez. Continue gabapentin 1200mg 3 times daily-patient will take own medication from home, Percocet one 3 times daily as needed, Fioricet as needed. 5. Hypertension and hypertensive cardiovascular disease. Continue hydrochlorothiazide 25 mg daily, verapamil 120 mg orally once every day. 6. Obesity with possible obstructive sleep apnea and obesity hypoventilation syndrome. Recommend outpatient sleep study 7. Mild intermittent asthma and COPD. Continue albuterol inhaler every 6 hours as needed, Symbicort twice daily, Singulair 10 mg daily, Spiriva daily, Flonase as needed. 8. Fibromyalgia. Continue gabapentin 1200 mg orally 3 times every day. 8. Generalized anxiety. Continue Ativan 1 mg every 8 hours as needed. 9. Recurrent depression. Continue Paxil 40 mg daily. 10. Chronic tobacco use and dependence. Smoking cessation and counseling an increased risk of CAD, CVA, and malignancy. Continue nicotine patch 21 mg once every day. 11. Mild cognitive impairment. Continue patient on Namenda 10 mg orally twice every day. 13. Restless leg syndrome. Continue Requip 0.25 mg 2 times daily 14. DVT prophylaxis. Heparin every 12 hours. 15. GERD and GI prophylaxis. Continue with Protonix 40 mg orally twice every day. 16. Headache. Voltaren gel added. CODE STATUS: Full code Discharge plan: Return home. Impression and plan of care have been directed as dictated by the signing physician. Elaine Nguyen nurse practitioner acting as scribe for signing physician.
[2019-09-05] MEDS: DICLOFENAC SODIUM GEL 100 GM TUBE TOPICAL SCH ×3 (12:01→22:51)
--- NOTE | 2019-09-05 12:32 | P.CNPUL ---
History of Present Illness Consult date: 09/05/19 Requesting physician: Deneen Thomason Reason for consult: dyspnea Chief complaint: Shortness of breath, fever, weakness History of present illness: This is a pleasant 53-year-old -[place] female, known to have history of multiple medical problems including MS, COPD, fibromyalgia, hypertension, degenerative joint disease, chronic occipital neuralgia, optic neuritis, chronic tobacco dependence, chronic hypoxic respiratory failure maintained normally on 2 L of oxygen history of chronic bronchitis, uterine cancer and previous hysterectomy, patient presented to the emergency room yesterday with complaints of increasing shortness of breath, fever, weakness. Chest x-ray revealed lungs are clear. Mild cardiomegaly. White count 9.8. Hemoglobin 13.1. MCV 102.9. Sodium 139. Potassium 3.6. Bicarb 40. Creatinine 0.43. CoVID 19 screen negative. Pro-calcitonin 0.07. She is seen today in consultation on the regular medical floor. She is sitting up in bed. Awake and alert in no acute distress. No worsening shortness of breath, cough or congestion. She is maintaining O2 saturations in the mid 90s on 3 L/m per nasal cannula. She's afebrile. Hemodynamically stable. Blood culture reveals no growth to date. She's been initiated on Symbicort, albuterol, ceftriaxone, Singulair. NicoDerm patch is in place. Review of Systems REVIEW OF SYSTEMS: CONSTITUTIONAL: Denies any recent significant weight loss or weight gain. EYES: Denies change in vision. EARS, NOSE, MOUTH, THROAT: Denies headaches, denies sore throat. CARDIOVASCULAR: Denies chest pain, palpitations or syncopal episodes. RESPIRATORY: Positive for shortness of breath, cough, congestion no hemoptysis. GASTROINTESTINAL: Denies change in appetite, denies abdominal pain GENITOURINARY: Denies hematuria, denies infections. MUSKULOSKELETAL: Generalized weakness, Denies pain, denies swelling. INTEGUMENTARY: Denies rash, denies eczema. NEUROLOGICAL: Denies recent memory loss, no recent seizure activity. PSYCHIATRIC: Positive for anxiety, denies depression. HEMATOLOGIC/LYMPHATIC: Denies anemia, denies enlarged lymph nodes. Past Medical History Past Medical History: Asthma, Cancer, COPD, Eye Disorder, Fibromyalgia, GERD/Reflux, Hearing Disorder / Deafness, Hypertension, Memory Impairment, Neurologic Disorder, Osteoarthritis (OA), Pneumonia, Syncope Additional Past Medical History / Comment(s): MS relapsing/remitting type, chronic bilateral eye pain/optic neuritis/ poor vision, cataracts bilaterally, chronic occipital neuralgia, osteoporosis, RLS, chronic hypoxic respiratory failure with home oxygen 2L/NC prn, chronic bronchitis, immunocompromised, elevated blood sugar with steroid use, uterine cancer with hysterectomy/radiation, heart murmur, mild cognitive impairment, chronic vertigo, falls, rheumatic fever as child, tinnitis bilaterally, allergic rhinitis. History of Any Multi-Drug Resistant Organisms: None Reported Past Surgical History: Bladder Surgery, Heart Catheterization, Hysterectomy Additional Past Surgical History / Comment(s): Nerve blocks, bladder suspension. Past Anesthesia/Blood Transfusion Reactions: No Reported Reaction Additional Past Anesthesia/Blood Transfusion Reaction / Comment(s): mild clausterphobia Past Psychological History: Anxiety, Depression Smoking Status: Current every day smoker Past Alcohol Use History: None Reported Additional Past Alcohol Use History / Comment(s): Patient started smoking at age 18 and has smoked on and off since then. She is currently smoking 1 pack per day. Past Drug Use History: None Reported - Past Family History Mother Family Medical History: CVA/TIA, Myocardial Infarction ([place]) Additional Family Medical History / Comment(s): Mother is alive at age 74 with history of brain aneurysm, 3 strokes and 2 myocardial infarctions. Brain aneurysms run on mother's side of family Father Additional Family Medical History / Comment(s): Father at age 72 from a cardiac arrest thought to be due to a myocardial infarction. Sister(s) Additional Family Medical History / Comment(s): Patient has 2 sisters with no major medical problems. Patient does not have any brothers. Patient has 2 adult children with no major medical problems. Patient is only family member with MS. Medications and Allergies Home Medications Medication Instructions Recorded Confirmed Type Aspirin 81 mg PO DAILY 02/20/14 09/04/19 History LORazepam [Ativan] 1 mg PO Q8H PRN 02/20/14 09/04/19 History Verapamil HCl [Calan] 120 mg PO DAILY 02/20/14 09/04/19 History Gabapentin [Neurontin] 1,200 mg PO TID 08/19/16 09/04/19 History Butalb/APAP/Caff 50-325-40Mg 1 tab PO Q8H PRN 03/25/17 09/04/19 History [Fioricet 50-325-40] oxyCODONE-APAP 10-325MG [Percocet 1 tab PO TID PRN 01/28/18 09/04/19 History 10-325 mg] rOPINIRole HCL [Requip] 0.25 mg PO TID #90 tab 01/31/18 09/04/19 Rx Budesonide/Formoterol Fumarate 2 puff INHALATION RT-BID 05/06/18 09/04/19 History [Symbicort 160-4.5 Mcg Inhaler] Cholecalciferol [Vitamin D3 (25 2,000 unit PO DAILY 05/07/18 09/04/19 History Mcg = 1000 Iu)] Multivitamins, Thera [Multivitamin 1 tab PO DAILY 05/07/18 09/04/19 History (formulary)] PARoxetine [Paxil] 40 mg PO DAILY tab 05/09/18 09/04/19 Rx Pantoprazole Sodium [Protonix] 40 mg PO BID 10/31/18 09/04/19 History Ipratropium-Albuterol Nebulize 3 ml INHALATION RT-QID PRN 11/22/18 09/04/19 History [Duoneb 0.5 mg-3 mg/3 ml Soln] Memantine [Namenda] 10 mg PO BID 11/22/18 09/04/19 History Montelukast [Singulair] 10 mg PO DAILY 11/22/18 09/04/19 History Hydrochlorothiazide [Hydrodiuril] 25 mg PO DAILY tab 11/26/18 09/04/19 Rx Nicotine 21Mg/24Hr Patch [Habitrol] 1 patch TRANSDERM DAILY #30 patch 11/26/18 09/04/19 Rx Fluticasone Nasal [place] [Flonase 2 spray EA NOSTRIL DAILY PRN 04/28/19 09/04/19 History Nasal [place]] Methocarbamol [Robaxin-750] 750 mg PO BID 04/28/19 09/04/19 History Folic Acid 1 mg PO DAILY #30 tab 05/02/19 09/04/19 Rx busPIRone HCl [Buspar] 10 mg PO TID #90 tab 05/02/19 09/04/19 Rx Albuterol Sulfate [Ventolin HFA] 1 - 2 puff INHALATION RT-Q6H PRN 08/09/19 09/04/19 History Nystatin 100,000 Unit/ml Susp 500,000 unit PO QID 09/04/19 09/04/19 History [Mycostatin Oral Susp] Allergies Allergy/AdvReac Type Severity Reaction Status Date / Time baclofen AdvReac URINARY Verified 09/04/19 15:55 ISSUES dexamethasone [From Decadron] AdvReac "THOMPSON Verified 09/04/19 15:55 SKIN"/DEHYDRATION Physical Exam Vitals: Vital Signs Temp Pulse Resp BP Pulse Ox 09/05/19 07:50 94 L 09/05/19 07:32 98.5 F 79 18 138/72 94 L 09/05/19 01:06 98.2 F 80 15 97/65 94 L 09/04/19 19:31 98.2 F 76 16 101/66 99 09/04/19 15:00 98.6 F 86 16 96/72 98 Intake and Output 09/04/19 09/05/19 09/05/19 22:59 06:59 14:59 Intake Total 222 630 Balance 222 630 Intake: Intake, IV Titration 50 Amount cefTRIAXone 1 gm In 50 Sodium Chloride 0.9% 50 ml @ 100 mls/hr IVPB Q24HR [facility] Rx#:[id number] Oral 222 580 Other: Voiding Method Toilet # Voids 1 1 GENERAL EXAM: Alert, obese, 53-year-old female patient, on 3 L nasal cannula, comfortable in no apparent distress. HEAD: Normocephalic. EYES: Normal reaction of pupils, equal size. NOSE: Clear with pink turbinates. THROAT: No erythema or exudates. NECK: No masses, no JVD. CHEST: No chest wall deformity. LUNGS: Equal air entry with no crackles, wheeze, rhonchi or dullness. CVS: S1 and S2 normal with no audible murmur, regular rhythm. ABDOMEN: No hepatosplenomegaly, normal bowel sounds, no guarding or rigidity. SPINE: No scoliosis or deformity SKIN: No rashes CENTRAL NERVOUS SYSTEM: No focal deficits, tone is normal in all 4 extremities. EXTREMITIES: There is no peripheral edema. No clubbing, no cyanosis. Peripheral pulses are intact. Results - Laboratory Findings CBC and BMP: 09/05/19 07:09 09/05/19 07:09 PT/INR, D-dimer PT 10.2 sec (9.0-12.0) 09/04/19 08:05 INR 1.0 (<1.2) 09/04/19 08:05 Abnormal lab findings: Abnormal Labs 09/04/19 09/04/19 09/05/19 08:05 08:05 07:09 WBC 13.3 H MCV 102.1 H 102.9 H Neutrophils # 9.6 H Sodium 136 L Chloride 92 L Carbon Dioxide 39 H BUN 6 L Creatinine 0.45 L Glucose 133 H Magnesium 1.5 L C-Reactive Protein 42.0 H Total Protein 6.0 L 09/05/19 07:09 WBC MCV Neutrophils # Sodium Chloride 95 L Carbon Dioxide 40 H BUN Creatinine 0.43 L Glucose Magnesium C-Reactive Protein 46.2 H Total Protein - Diagnostic Findings Chest x-ray: image reviewed (No acute pulmonary process) Assessment and Plan Assessment: Acute exacerbation of chronic obstructive pulmonary disease. Chest x-ray clear. CoVID 19 screen negative Chronic and ongoing tobacco dependence Acute on chronic hypoxic respiratory failure secondary to above Morbid obesity Multiple sclerosis Fibromyalgia Anxiety/depression Optic neuritis History of osteoporosis Frequent hospitalizations Plan: The patient was seen and evaluated by Dr. Javier Chest x-ray is clear Continue COPD medications Covid screening again negative Educated regarding the importance of complete smoking cessation NicoDerm patches in place We'll continue to follow I, the cosigning physician, performed a history & physical examination of the patient. Lungs sounds are clear. Maintaining good O2 saturations in the 90s o 3 L/m per nasal cannula I discussed the assessment and plan of care with my nurse practitioner, Cydney Henning. I attest to the above consultation as dictated by her. Time with Patient: Greater than 30
[2019-09-05] MEDS: MELATONIN 5 MG TABLET PO SCH (22:50)
[2019-09-06] MEDS: ALBUTEROL HFA INHALER INHALATION PRN ×2 (07:37→11:49)
[2019-09-06] MEDS: SYMBICORT 160-4.5 MCG INHALER INHALATION SCH ×2 (07:37→19:55)
[2019-09-06] MEDS: PARoxetine 20 MG TAB PO SCH (07:53)
[2019-09-06] MEDS: NICOTINE 21MG/24HR PATCH TRANSDERM SCH (07:53)
[2019-09-06] MEDS: FOLIC ACID 1 MG TAB PO SCH (07:54)
[2019-09-06] MEDS: HYDROCHLOROTHIAZIDE 25 MG TAB PO SCH (07:54)
[2019-09-06] MEDS: CHOLECALCIFEROL 1,000 UNIT TAB PO SCH (07:54)
[2019-09-06] MEDS: busPIRone HCl 10 MG TAB PO SCH ×3 (07:54→20:52)
[2019-09-06] MEDS: oxyCODONE-APAP 10-325MG 1 EACH TAB PO PRN (07:54)
[2019-09-06] MEDS: BUTALB/APAP/CAFF 50-325-40MG TAB PO PRN ×3 (07:55→23:44)
[2019-09-06] MEDS: HEPARIN SODIUM,PORCINE 5,000 UNIT/ML 1 ML VIAL SQ SCH (07:55)
[2019-09-06] MEDS: PANTOPRAZOLE 40 MG TABLET PO SCH ×2 (07:55→16:32)
[2019-09-06] MEDS: MEMANTINE 10 MG TAB PO SCH ×2 (07:55→20:53)
[2019-09-06] MEDS: ASPIRIN 81 MG PO SCH (07:56)
[2019-09-06] MEDS: MONTELUKAST 10 MG TAB PO SCH (07:56)
[2019-09-06] MEDS: MULTIVITAMINS, THERA 1 EACH TAB PO SCH (07:56)
[2019-09-06] MEDS: LORazepam 1 MG TAB PO PRN ×3 (07:56→23:44)
[2019-09-06] MEDS: METHOCARBAMOL 750 MG TAB PO SCH ×3 (07:57→20:52)
[2019-09-06] MEDS: VERAPAMIL SR 120 MG TABLET.ER PO SCH (07:57)
[2019-09-06] MEDS: DICLOFENAC SODIUM GEL 100 GM TUBE TOPICAL SCH ×4 (08:21→20:53)
[2019-09-06] MEDS: GABAPENTIN 600 MG PO SCH ×3 (08:21→20:52)
[2019-09-06] MEDS: SODIUM CHLORIDE 0.9% 1,000 ML IV SCH (08:22)
--- NOTE | 2019-09-06 10:00 | ECHOF ---
Referral Reason:murmur and fever, r/o vegetation MEASUREMENTS -------- HEIGHT: 162.6 cm WEIGHT: 106.1 kg BP: 97/65 RVIDd: 3.6 cm (< 3.3) IVSd: 1.4 cm (0.6 - 1.1) LVIDd: 3.7 cm (3.9 - 5.3) LVPWd: 1.4 cm (0.6 - 1.1) IVSs: 1.5 cm LVIDs: 2.6 cm LVPWs: 1.8 cm LAESV Index (A-L): 27.93 ml/m Ao Diam: 3.3 cm (2.0 - 3.7) AV Cusp: 2.1 cm (1.5 - 2.6) MV EXCURSION: 17.701 mm (> 18.000) MV EF SLOPE: 66 mm/s (70 - 150) EPSS: 0.5 cm MV E Vargas: 0.82 m/s MV DecT: 263 ms MV A Vargas: 0.98 m/s MV E/A Ratio: 0.83 RAP: 5.00 mmHg RVSP: 25.50 mmHg FINDINGS -------- Sinus rhythm. This was a technically difficult study with suboptimal views. The left ventricular size is normal. There is moderate concentric left ventricular hypertrophy. O verall left ventricular systolic function is low-normal with, an EF between 50 - 55 %. The diastoli c filling pattern is normal for the age of the patient 15.59. The right ventricle is mildly enlarged. Normal LA size by volume 22+/-6 ml/m2. The right atrial size is normal. Lumason used Interatrial and interventricular septum intact. The aortic valve was not well visualized. There is no evidence of aortic regurgitation. There is no evidence of aortic stenosis. There is trace mitral regurgitation. Mild tricuspid regurgitation present. There is no evidence of pulmonary hypertension. The right v entricular systolic pressure, as measured by Doppler, is 25.50mmHg. Trace/mild (physiologic) pulmonic regurgitation. The aortic root size is normal. Normal inferior vena cava with normal inspiratory collapse consistent with estimated right atrial pre ssure of 5 mmHg. There is no pericardial effusion. CONCLUSIONS -------- 1. Sinus rhythm. 2. This was a technically difficult study with suboptimal views. 3. The left ventricular size is normal. 4. There is moderate concentric left ventricular hypertrophy. 5. Overall left ventricular systolic function is low-normal with, an EF between 50 - 55 %. 6. The diastolic filling pattern is normal for the age of the patient 15.59 7. The right ventricle is mildly enlarged. 8. Normal LA size by volume 22+/-6 ml/m2. 9. The right atrial size is normal. 10. Lumason used 11. Interatrial and interventricular septum intact. 12. The aortic valve was not well visualized. 13. There is no evidence of aortic regurgitation. 14. There is no evidence of aortic stenosis. 15. There is trace mitral regurgitation. 16. Mild tricuspid regurgitation present. 17. There is no evidence of pulmonary hypertension. 18. The right ventricular systolic pressure, as measured by Doppler, is 25.50mmHg. 19. Trace/mild (physiologic) pulmonic regurgitation. 20. The aortic root size is normal. 21. Normal inferior vena cava with normal inspiratory collapse consistent with estimated right atrial pressure of 5 mmHg. 22. There is no pericardial effusion. MANAGER RECOVERY: Mecca Klein RDCS
--- NOTE | 2019-09-06 13:36 | P.PN ---
Subjective Progress Note Date: 09/06/19 Principal diagnosis: Acute exacerbation of chronic obstructive pulmonary disease This is a pleasant 53-year-old -[place] female, known to have history of multiple medical problems including MS, COPD, fibromyalgia, hypertension, degenerative joint disease, chronic occipital neuralgia, optic neuritis, chronic tobacco dependence, chronic hypoxic respiratory failure maintained normally on 2 L of oxygen history of chronic bronchitis, uterine cancer and previous hysterectomy, patient presented to the emergency room yesterday with complaints of increasing shortness of breath, fever, weakness. Chest x-ray revealed lungs are clear. Mild cardiomegaly. White count 9.8. Hemoglobin 13.1. MCV 102.9. Sodium 139. Potassium 3.6. Bicarb 40. Creatinine 0.43. CoVID 19 screen negative. Pro-calcitonin 0.07. She is seen today in consultation on the regular medical floor. She is sitting up in bed. Awake and alert in no acute distress. No worsening shortness of breath, cough or congestion. She is maintaining O2 saturations in the mid 90s on 3 L/m per nasal cannula. She's afebrile. Hemodynamically stable. Blood culture reveals no growth to date. She's been initiated on Symbicort, albuterol, ceftriaxone, Singulair. NicoDerm patch is in place. The patient is seen today 09/06/2019 in follow-upon the regular medical floor. She is currently sitting up in bed. Awake and alert in no acute distress. No worsening shortness of breath cough or congestion. No chest pain. She remains afebrile. Hemodynamically stable. Maintain O2 saturations in the mid 90s on 3 L/m per nasal cannula. Echocardiogram revealed preserved left ventricular systolic function with ejection fraction 50-55%. She is having issues with headaches. Currently on Fioricet. Objective - Vital Signs Vital signs: Vital Signs Temp 98.2 F 09/06/19 07:00 Pulse 75 09/06/19 07:00 Resp 18 09/06/19 07:00 BP 112/75 09/06/19 07:00 Pulse Ox 95 09/06/19 07:00 Intake & Output 09/05/19 09/06/19 09/06/19 18:59 06:59 18:59 Intake Total 630 Balance 630 Intake: Intake, IV Titration 50 Amount cefTRIAXone 1 gm In 50 Sodium Chloride 0.9% 50 ml @ 100 mls/hr IVPB Q24HR [facility] Rx#:[id number] Oral 580 Other: Voiding Method Toilet Toilet # Voids 1 - Exam GENERAL EXAM: Alert, obese, 53-year-old female patient, on 3 L nasal cannula, comfortable in no apparent distress. HEAD: Normocephalic. EYES: Normal reaction of pupils, equal size. NOSE: Clear with pink turbinates. THROAT: No erythema or exudates. NECK: No masses, no JVD. CHEST: No chest wall deformity. LUNGS: Equal air entry with no crackles, wheeze, rhonchi or dullness. CVS: S1 and S2 normal with no audible murmur, regular rhythm. ABDOMEN: No hepatosplenomegaly, normal bowel sounds, no guarding or rigidity. SPINE: No scoliosis or deformity SKIN: No rashes CENTRAL NERVOUS SYSTEM: No focal deficits, tone is normal in all 4 extremities. EXTREMITIES: There is no peripheral edema. No clubbing, no cyanosis. Peripheral pulses are intact. - Labs CBC & Chem 7: 09/05/19 07:09 09/05/19 07:09 Labs: Microbiology - Last 24 Hours (Table) 09/04/19 08:05 Blood Culture - Preliminary Blood No Growth after 48 hours Assessment and Plan Assessment: Acute exacerbation of chronic obstructive pulmonary disease. Chest x-ray clear. CoVID 19 screen negative Chronic and ongoing tobacco dependence Acute on chronic hypoxic respiratory failure secondary to above Morbid obesity Multiple sclerosis Fibromyalgia Anxiety/depression Optic neuritis History of osteoporosis Frequent hospitalizations Plan: The patient was seen and evaluated by Dr. Javier Continue COPD medications Educated regarding the importance of complete smoking cessation NicoDerm patch is in place We'll continue to follow I, the cosigning physician, performed a history & physical examination of the patient. Lungs sounds are clear. Maintaining good O2 saturations in the 90s o 3 L/m per nasal cannula I discussed the assessment and plan of care with my nurse practitioner, Cydney Henning. I attest to the above consultation as dictated by her.
--- NOTE | 2019-09-06 14:23 | P.PN ---
Subjective Progress Note Date: 09/06/19 This is a 53-year-old female patient of Dr. Tabares and Dr. Ramirez with a previous medical history significant for relapsing remitting multiple sclerosis, hypertension and hypertensive cardiovascular disease with left ventricular hypertrophy, history of GERD, multiple sclerosis, COPD, asthma, history of oste oporosis, uterine cancer status post surgery, chronic hypoxic respiratory failure on home O2 at 2 L nasal cannula, tobacco use.. Patient has had multiple admissions for acute exacerbation of MS. Most recently she was hospitalized August 08 through August 10 which time she was treated for pneumonia. Patient states she started having a fever yesterday along with chills and muscle aches. She has a cough with clear sputum production. She denies any abdominal pain, no diarrhea. She complains of weak and has generalized all over and lower extremity edema and 2 recent falls. She states she has had uncontrolled movement of her extremities. She denies any dysuria. She complains of a headache that is very severe more so than her baseline headaches. Goes around from the frontal area to the back occipital region. Patient does continue to smoke 1 pack per day. Patient came into [facility] emergency center for evaluation and found to be febrile with a temperature of 101.3, heart rate 108, blood pressure 131/75 and pulse ox 93% on 2 L. WBC 13.3, hemoglobin 13.9, platelet c ount 261. Sodium 136, potassium 3.8, chloride 92, CO2 39, BUN 6 and creatinine 0.45. Blood sugar 133. Lactic acid 1.6. Magnesium 1.5 and was replaced in the emergency center. C-reactive protein 42. Coronavirus PCR not detected. Urinalysis negative. Patient admitted to the [facility] floor and consult requested with Dr. Cuevas and Dr. Roberts. 09/04: [facility] Echocardiogram was completed this morning report is pending. Patient continues to have significant headache without nuchal rigidity. Voltaren gel will be added. Dr. Cuevas has evaluated the patient started her on Rocephin and ordered a CAT scan of the abdomen and pelvis which revealed no sign of acute abdomen and pelvis. Mild constipation. Possible small bilateral renal calculi. Patient has been afebrile since admission, heart rate 79, blood pressure 130/72, pulse ox 94% on 3 L nasal cannula. WBC is down to 9.8, hemoglobin 13.1, platelet count 226. Sodium 139, potassium 3.6, chloride 95, CO2 40, BUN 8 and creatinine 0.43. C-reactive protein 46.2. Influenza testing not detected. Urinalysis clear with nitrate and leukoesterase negative. Blood culture showing no growth at 24 hours. Echocardiogram ordered for new murmur. 09/05: Patient has been evaluated by pulmonary medicine and no sign of infection/pneumonia. Patient continues to complain of headache in the occipital region. We will ask for pain management to see for occipital block. Influenza testing is negative. Patient is afebrile, heart rate 75, blood pressure 112/75, pulse ox 95% on 3 L nasal cannula. Anticipate discharge home tomorrow. Objective - Vital Signs Vital signs: Vital Signs Temp 98.2 F 09/06/19 07:00 Pulse 75 09/06/19 07:00 Resp 18 09/06/19 07:00 BP 112/75 09/06/19 07:00 Pulse Ox 95 09/06/19 07:00 Intake & Output 09/05/19 09/06/19 09/06/19 18:59 06:59 18:59 Intake Total 630 Balance 630 Intake: Intake, IV Titration 50 Amount cefTRIAXone 1 gm In 50 Sodium Chloride 0.9% 50 ml @ 100 mls/hr IVPB Q24HR [facility] Rx#:[id number] Oral 580 Other: Voiding Method Toilet # Voids 1 - Exam Review of Systems Constitutional: Reports chills, Reports fatigue, Reports fever, Reports lethargy, Reports malaise Eyes: denies blurred vision, denies pain Ears, nose, mouth and throat: Denies dysphagia, Denies headache, Denies nasal congestion, Denies nasal discharge, Denies sore throat, Denies vertigo, reports headache Cardiovascular: Reports dyspnea on exertion, Denies chest pain, Denies edema, Denies irregular heart beat, Denies leg edema, Denies lightheadedness, reports shortness of breath, Denies syncope Respiratory: Reports cough, Reports cough with white sputum, Reports dyspnea, Denies excessive sputum, Denies hemoptysis, reports home oxygen, Denies wheezing Gastrointestinal: Denies abdominal pain, Denies diarrhea, Denies loss of appetite, Denies nausea, Denies vomiting Genitourinary: Denies dysuria, Denies hematuria, Denies urgency, Denies urinary frequency Musculoskeletal: Reports two falls, Reports gait dysfunction, Reports muscle weakness, reports myalgias Integumentary: Denies pruritus, Denies rash, Denies wounds Neurological: Denies change in mentation, Denies change in speech, Denies numbness, Denies weakness Psychiatric: Denies anxiety, Denies depression Endocrine: Denies fatigue, Denies weight change Physical examination - Constitutional General appearance: Morbidly obese body habitus, cooperative, no acute distress - EENT Eyes: anicteric sclerae, PERRLA, dentition normal - Neck Neck: normal ROM - Respiratory Respiratory: bilateral: CTA, negative: diminished, dullness - Cardiovascular Rhythm: regular Heart sounds: normal: S1, S2 Abnormal Heart Sounds: systolic murmur left sternal border, no diastolic murmur, no rub, no S3 Gallop, no S4 Gallop, no click, no other Trace bilateral lower extremity edema - Gastrointestinal General gastrointestinal: normal bowel sounds, soft, nontender - Integumentary Integumentary: decreased turgor, normal - Neurologic Neurologic: CNII-XII intact, generalized weakness (No cranial deficits) - Musculoskeletal Generalized weakness of the upper and lower extremities Musculoskeletal: generalized weakness, strength equal bilaterally - Labs CBC & Chem 7: 09/05/19 07:09 09/05/19 07:09 Labs: Microbiology - Last 24 Hours (Table) 09/04/19 08:05 Blood Culture - Preliminary Blood No Growth after 48 hours Assessment and Plan Plan: 1. Febrile illness of unclear etiology. COVID-19 infection ruled out. Consult with Dr. Roberts and Dr. Cuevas. Covid 19 testing is negative. CAT scan of the abdomen and pelvis as above. Patient is currently on Rocephin. Blood culture showing no growth. Influenza testing negative. Echocardiogram ordered. 2. Generalized weakness possibly related to acute febrile illness with underlying MS. 3. History of relapsing remitting multiple sclerosis. 4. Chronic pain and occipital neuralgia under the care of Dr. Ramirez. C ontinue gabapentin 1200mg 3 times daily-patient will take own medication from home, Percocet one 3 times daily as needed, Fioricet as needed. 5. Hypertension and hypertensive cardiovascular disease. Continue hydrochlorothiazide 25 mg daily, verapamil 120 mg orally once every day. 6. Obesity with possible obstructive sleep apnea and obesity hypoventilation syndrome. Recommend outpatient sleep study 7. Mild intermittent asthma and COPD. Continue albuterol inhaler every 6 hours as needed, Symbicort twice daily, Singulair 10 mg daily, Spiriva daily, Flonase as needed. 8. Fibromyalgia. Continue gabapentin 1200 mg orally 3 times every day. 8. Generalized anxiety. Continue Ativan 1 mg every 8 hours as needed. 9. Recurrent depression. Continue Paxil 40 mg daily. 10. Chronic tobacco use and dependence. Smoking cessation and counseling an increased risk of CAD, CVA, and malignancy. Continue nicotine patch 21 mg once every day. 11. Mild cognitive impairment. Continue patient on Namenda 10 mg orally twice every day. 13. Restless leg syndrome. Continue Requip 0.25 mg 2 times daily 14. DVT prophylaxis. Heparin every 12 hours. 15. GERD and GI prophylaxis. Continue with Protonix 40 mg orally twice every day. 16. Headache. Voltaren gel added. Consult with pain management for occipital nerve injection. CODE STATUS: Full code Discharge plan: Return home on Thursday. Impression and plan of care have been directed as dictated by the signing physician. Elaine Nguyen nurse practitioner acting as scribe for signing physician.
[2019-09-06] MEDS: HYDROmorphone 1 MG/ML 1 ML SYRINGE IVP PRN ×2 (16:33→23:44)
[2019-09-06] MEDS ORDERED: MIDAZOLAM 2 MG/2 ML VIAL IVP ONE ×2 (17:01→17:05)
[2019-09-06] MEDS ORDERED: fentaNYL (PF) 50 MCG/ML 2 ML AMP IVP ONE ×2 (17:02→17:06)
[2019-09-06] MEDS ORDERED: LACTATED RINGERS 1,000 ML IV ONE (17:05)
[2019-09-06] MEDS ORDERED: HYDROmorphone 0.5 MG/0.5 ML SYRINGE IVP ONE ×2 (17:15)
--- NOTE | 2019-09-06 17:15 | P.PCN ---
Date of Procedure: 09/06/19 Procedure(s) Performed: Preoperative diagnoses= 1- bilaterally Greater occipital neuralgia Postoperative diagnoses= same as preoperative diagnosis. Procedure= Bilateral Greater occipital nerve block Anesthesia= moderate sedation with Versed 2 mg and fentanyl 100 micrograms . Estimated blood loss=minimal. Procedure indication= the patient had a history of severe chronic neck pain ,and headache, diagnosed with occipital neuralgia ,exam was positive for severe tenderness over the occipital nerve bilaterally, she will be a good candidate occipital nerve block, patient was admitted to [facility] with diagnoses of COPD exacerbation, patient complaining of severe headache and neck pain and she had a history of occipital neuralgia and she was managed as an outpatient by the Dr. Ramirez with the occipital nerve block and medication management, patient continued to complain of severe headache, even though she's been taking her usual medications Fioricet and Robaxin Procedure description= the patient was seen and identified in the recovery room area, risks and benefits and alternative of the procedure and possible complications discussed with the patient, and he agreed with the preceding, patient signed the consent, and vital signs were monitored and were stable throughout the procedure, patient was placed in the sitting position or table and the neck area was prepped and draped with a sterile fashion, vital signs were closely monitored during the procedure, 25-gauge needle advanced 1 inch lateral to the occipital protuberance on the right side, at the location of the right occipital nerve , then after negative aspiration for heme and CSF and there was no paresthesia during the injection, 6 ml of Robivacaine 0.5% and 20 mg of Kenalog injected after negative aspiration, the needle removed, and the entire same procedure was repeated for the left Greater occipital nerve. Patient tolerated the procedure well without any complication, The patient returned to supine position after the back was cleaned and a Band- Aid applied, the patient transported to recovery room in stable condition and he was monitored for 30 minutes before he was discharged home and then patient was reexamined before going home and patient was discharged in stable condition and patient will follow up with the pain clinic in a few weeks.
--- NOTE | 2019-09-06 17:32 | PN ---
PROGRESS NOTE DATE OF SERVICE: 09/06/2019 REASON FOR FOLLOWUP: Fever, possible pneumonia, question pneumonitis. INTERVAL HISTORY: The patient is currently afebrile. The patient is complaining of headache which is mostly in the occipital area, at times temporal with some improvement about 7/10 compared to 1010 when she came in. No nausea, vomiting. The patient did have a cough with some yellow sputum. No abdominal pain or diarrhea. PHYSICAL EXAMINATION: Blood pressure 112/76, pulse of 89, temperature 98, she is 98% on 3 L nasal cannula. General description is a middle-aged female, lying in bed in no distress. RESPIRATORY SYSTEM: Unlabored breathing, decreased breath sounds at the base. No wheeze. HEART: S1, S2. Regular rate. ABDOMEN: Soft, no tenderness. LABS: Hemoglobin is 13.1, white count of 9.8. BUN of 8, creatinine 0.43. Blood cultures 0.05. Kimball and influenza PCR was negative. DIAGNOSTIC IMPRESSION AND PLAN: Patient admitted to the hospital with fever, headache and respiratory symptoms, now with yellowish sputum, question of possible pneumonia, underlying meningitis, less likely but not entirely excluded, possible viral, clinically doubt bacterial meningitis. Will go ahead and check an LP. Continue empiric Rocephin, repeat chest x-ray tomorrow. Plan of care was discussed with the admitting physician. JOCELINE / ANNETTE: [id number] / MTDD
[2019-09-06] MEDS: MELATONIN 5 MG TABLET PO SCH (20:53)
--- NOTE | 2019-09-07 07:05 | XR ---
EXAMINATION TYPE: XR chest 2V DATE OF EXAM: 09/07/2019 COMPARISON: Chest x-ray September 04, 2019. CT chest August 08, 2019. HISTORY: Fever and pneumonia. TECHNIQUE: Frontal and lateral views of the chest are obtained. FINDINGS: There is persistent cardiomegaly. Background chronic emphysematous change without suspicio us new focal airspace opacity, pleural effusion, or pneumothorax seen. The osseous structures are i ntact. IMPRESSION: Cardiomegaly and chronic emphysematous change without new acute infiltrate.
[2019-09-07] MEDS: ALBUTEROL HFA INHALER INHALATION PRN ×2 (07:17→19:17)
[2019-09-07] MEDS: SYMBICORT 160-4.5 MCG INHALER INHALATION SCH ×2 (07:17→19:16)
[2019-09-07] MEDS: NICOTINE 21MG/24HR PATCH TRANSDERM SCH (07:40)
[2019-09-07] MEDS: LORazepam 1 MG TAB PO PRN ×3 (07:42→22:17)
[2019-09-07] MEDS: PARoxetine 20 MG TAB PO SCH (07:42)
[2019-09-07] MEDS: CHOLECALCIFEROL 1,000 UNIT TAB PO SCH (07:42)
[2019-09-07] MEDS: MEMANTINE 10 MG TAB PO SCH ×2 (07:42→21:20)
[2019-09-07] MEDS: ASPIRIN 81 MG PO SCH (07:42)
[2019-09-07] MEDS: FOLIC ACID 1 MG TAB PO SCH (07:42)
[2019-09-07] MEDS: PANTOPRAZOLE 40 MG TABLET PO SCH ×2 (07:43→16:09)
[2019-09-07] MEDS: HYDROCHLOROTHIAZIDE 25 MG TAB PO SCH (07:43)
[2019-09-07] MEDS: busPIRone HCl 10 MG TAB PO SCH ×3 (07:43→21:20)
[2019-09-07] MEDS: MULTIVITAMINS, THERA 1 EACH TAB PO SCH (07:43)
[2019-09-07] MEDS: MONTELUKAST 10 MG TAB PO SCH (07:43)
[2019-09-07] MEDS: BUTALB/APAP/CAFF 50-325-40MG TAB PO PRN ×3 (07:43→22:17)
[2019-09-07] MEDS: DICLOFENAC SODIUM GEL 100 GM TUBE TOPICAL SCH ×4 (07:44→21:22)
[2019-09-07] MEDS: GABAPENTIN 600 MG PO SCH ×3 (07:44→21:20)
[2019-09-07] MEDS: VERAPAMIL SR 120 MG TABLET.ER PO SCH (07:45)
[2019-09-07] MEDS: METHOCARBAMOL 750 MG TAB PO SCH ×3 (07:45→21:20)
[2019-09-07] MEDS: HYDROmorphone 1 MG/ML 1 ML SYRINGE IVP PRN ×3 (07:46→22:17)
[2019-09-07] MEDS: SODIUM CHLORIDE 0.9% 1,000 ML IV SCH (08:36)
--- NOTE | 2019-09-07 12:19 | P.PN ---
Subjective Progress Note Date: 09/07/19 Principal diagnosis: Acute exacerbation of chronic obstructive pulmonary disease This is a pleasant 53-year-old -[place] female, known to have history of multiple medical problems including MS, COPD, fibromyalgia, hypertension, degenerative joint disease, chronic occipital neuralgia, optic neuritis, chronic tobacco dependence, chronic hypoxic respiratory failure maintained normally on 2 L of oxygen history of chronic bronchitis, uterine cancer and previous hysterectomy, patient presented to the emergency room yesterday with complaints of increasing shortness of breath, fever, weakness. Chest x-ray revealed lungs are clear. Mild cardiomegaly. White count 9.8. Hemoglobin 13.1. MCV 102.9. Sodium 139. Potassium 3.6. Bicarb 40. Creatinine 0.43. CoVID 19 screen negative. Pro-calcitonin 0.07. She is seen today in consultation on the regular medical floor. She is sitting up in bed. Awake and alert in no acute distress. No worsening shortness of breath, cough or congestion. She is maintaining O2 saturations in the mid 90s on 3 L/m per nasal cannula. She's afebrile. Hemodynamically stable. Blood culture reveals no growth to date. She's been initiated on Symbicort, albuterol, ceftriaxone, Singulair. NicoDerm patch is in place. The patient is seen today 09/06/2019 in follow-upon the regular medical floor. She is currently sitting up in bed. Awake and alert in no acute distress. No worsening shortness of breath cough or congestion. No chest pain. She remains afebrile. Hemodynamically stable. Maintain O2 saturations in the mid 90s on 3 L/m per nasal cannula. Echocardiogram revealed preserved left ventricular systolic function with ejection fraction 50-55%. She is having issues with headaches. Currently on Fioricet. On 09/07/2019 patient seen in follow-up on the general medical floor, she states her headaches have improved, she denies any respiratory issues, no cough no wheezing, no shortness of breath, she remains on 3 L of oxygen and the pulse ox 96%, she is afebrile, hemodynamically stable, she received bilateral greater occipital nerve block she is feeling better today. No acute events overnight. No new labs today. Follow up chest x-ray has been obtained showed no acute pulmonary process Objective - Vital Signs Vital signs: Vital Signs Temp 97.7 F 09/07/19 07:00 Pulse 69 09/07/19 07:00 Resp 18 09/07/19 07:00 BP 114/77 09/07/19 07:00 Pulse Ox 96 09/07/19 07:00 Intake & Output 09/06/19 09/07/19 09/07/19 18:59 06:59 18:59 Intake Total 100 280 Balance 100 280 Intake: IV 100 Oral 280 Other: Voiding Method Toilet Toilet # Voids 1 2 - Exam GENERAL EXAM: Alert, very pleasant, 53-year-old -[place] female 3 L of oxygen and the pulse ox 96% comfortable in no apparent distress. HEAD: Normocephalic/atraumatic. EYES: Normal reaction of pupils, equal size. Conjunctiva pink, sclera white. NOSE: Clear with pink turbinates. THROAT: No erythema or exudates. NECK: No masses, no JVD, no thyroid enlargement, no adenopathy. CHEST: No chest wall deformity. Symmetrical expansion. LUNGS: Equal air entry with no crackles, wheeze, rhonchi or dullness. CVS: Regular rate and rhythm, normal S1 and S2, no gallops, no murmurs, no rubs ABDOMEN: Soft, nontender. No hepatosplenomegaly, normal bowel sounds, no guarding or rigidity. EXTREMITIES: No clubbing, no edema, no cyanosis, 2+ pulses and upper and lower extremities. MUSCULOSKELETAL: Muscle strength and tone normal. SPINE: No scoliosis or deformity SKIN: No rashes CENTRAL NERVOUS SYSTEM: Alert and oriented -3. No focal deficits, tone is normal in all 4 extremities. PSYCHIATRIC: Alert and oriented -3. Appropriate affect. Intact judgment and insight. - Labs CBC & Chem 7: 09/05/19 07:09 09/05/19 07:09 Labs: Microbiology - Last 24 Hours (Table) 09/04/19 08:05 Blood Culture - Preliminary Blood No Growth after 72 hours Assessment and Plan Plan: Assessment: Acute exacerbation of chronic obstructive pulmonary disease. Chest x-ray clear. CoVID 19 screen negative Chronic and ongoing tobacco dependence Acute on chronic hypoxic respiratory failure secondary to above Morbid obesity Multiple sclerosis Fibromyalgia Anxiety/depression Optic neuritis History of osteoporosis Frequent hospitalizations Plan: Patient is doing well from pulmonary perspective, today's chest x-ray has been reviewed showing no acute pulmonary process, no worsening dyspnea, no worsening cough or congestion or wheezing, continue inhalers. A pulmonary perspective patient is clear for discharge home today I performed a history & physical examination of the patient and discussed their management with my nurse practitioner, Gay Hernandez. I reviewed the nurse practitioner's note and agree with the documented findings and plan of care. Lung sounds are positive for clear breath sounds. The findings and the impression was discussed with the patient. I attest to the documentation by the nurse practitioner. Time with Patient: Less than 30
[2019-09-07] MEDS: NYSTATIN 100,000 UNIT/ML SUSP 500,000 UNIT/5 ML CUP PO SCH ×3 (12:34→22:21)
--- NOTE | 2019-09-07 14:49 | P.PN ---
Subjective Progress Note Date: 09/07/19 This is a 53-year-old female patient of Dr. Tabares and Dr. Ramirez with a previous medical history significant for relapsing remitting multiple sclerosis, hypertension and hypertensive cardiovascular disease with left ventricular hypertrophy, history of GERD, multiple sclerosis, COPD, asthma, history of oste oporosis, uterine cancer status post surgery, chronic hypoxic respiratory failure on home O2 at 2 L nasal cannula, tobacco use.. Patient has had multiple admissions for acute exacerbation of MS. Most recently she was hospitalized August 08 through August 10 which time she was treated for pneumonia. Patient states she started having a fever yesterday along with chills and muscle aches. She has a cough with clear sputum production. She denies any abdominal pain, no diarrhea. She complains of weak and has generalized all over and lower extremity edema and 2 recent falls. She states she has had uncontrolled movement of her extremities. She denies any dysuria. She complains of a headache that is very severe more so than her baseline headaches. Goes around from the frontal area to the back occipital region. Patient does continue to smoke 1 pack per day. Patient came into [facility] emergency center for evaluation and found to be febrile with a temperature of 101.3, heart rate 108, blood pressure 131/75 and pulse ox 93% on 2 L. WBC 13.3, hemoglobin 13.9, platelet c ount 261. Sodium 136, potassium 3.8, chloride 92, CO2 39, BUN 6 and creatinine 0.45. Blood sugar 133. Lactic acid 1.6. Magnesium 1.5 and was replaced in the emergency center. C-reactive protein 42. Coronavirus PCR not detected. Urinalysis negative. Patient admitted to the [facility] floor and consult requested with Dr. Cuevas and Dr. Roberts. 09/04: [facility] Echocardiogram was completed this morning report is pending. Patient continues to have significant headache without nuchal rigidity. Voltaren gel will be added. Dr. Cuevas has evaluated the patient started her on Rocephin and ordered a CAT scan of the abdomen and pelvis which revealed no sign of acute abdomen and pelvis. Mild constipation. Possible small bilateral renal calculi. Patient has been afebrile since admission, heart rate 79, blood pressure 130/72, pulse ox 94% on 3 L nasal cannula. WBC is down to 9.8, hemoglobin 13.1, platelet count 226. Sodium 139, potassium 3.6, chloride 95, CO2 40, BUN 8 and creatinine 0.43. C-reactive protein 46.2. Influenza testing not detected. Urinalysis clear with nitrate and leukoesterase negative. Blood culture showing no growth at 24 hours. Echocardiogram ordered for new murmur. 09/05: Patient has been evaluated by pulmonary medicine and no sign of infection/pneumonia. Patient continues to complain of headache in the occipital region. We will ask for pain management to see for occipital block. Influenza testing is negative. Patient is afebrile, heart rate 75, blood pressure 112/75, pulse ox 95% on 3 L nasal cannula. Anticipate discharge home tomorrow. 09/06: Repeat chest x-ray shows no acute pulmonary process. Patient is been cleared for discharge from pulmonary medicine. Patient was seen this morning by Dr. Garcia and bilateral occipital blocks of been done. Patient states she is somewhat tender on the right side but pain is improved. Patient is scheduled for LP diagnostic as requested by Dr. Cuevas today. Patient is afebrile, heart rate 83, blood pressure 109/75, pulse ox 96% on 3 L nasal cannula. Objective - Vital Signs Vital signs: Vital Signs Temp 97.7 F 09/07/19 07:00 Pulse 69 09/07/19 07:00 Resp 18 09/07/19 07:00 BP 114/77 09/07/19 07:00 Pulse Ox 96 09/07/19 07:00 Intake & Output 09/06/19 09/07/19 09/07/19 18:59 06:59 18:59 Intake Total 100 280 Balance 100 280 Intake: IV 100 Oral 280 Other: Voiding Method Toilet Toilet # Voids 1 2 - Exam Review of Systems Constitutional: Denies chills, Reports fatigue, denies fever, Reports lethargy, Reports malaise Eyes: denies blurred vision, denies pain Ears, nose, mouth and throat: Denies dysphagia, Denies headache, Denies nasal congestion, Denies nasal discharge, Denies sore throat, Denies vertigo, reports headache Cardiovascular: Reports dyspnea on exertion, Denies chest pain, Denies edema, Denies irregular heart beat, Denies leg edema, Denies lightheadedness, reports shortness of breath, Denies syncope Respiratory: Reports cough, Reports cough with white sputum, Reports dyspnea, Denies excessive sputum, Denies hemoptysis, reports home oxygen, Denies wheezing Gastrointestinal: Denies abdominal pain, Denies diarrhea, Denies loss of appetite, Denies nausea, Denies vomiting Genitourinary: Denies dysuria, Denies hematuria, Denies urgency, Denies urinary frequency Musculoskeletal: Reports two falls, Reports gait dysfunction, Reports muscle weakness, reports myalgias Integumentary: Denies pruritus, Denies rash, Denies wounds Neurological: Denies change in mentation, Denies change in speech, Denies numbness, Denies weakness Psychiatric: Denies anxiety, Denies depression Endocrine: Denies fatigue, Denies weight change Physical examination - Constitutional General appearance: Morbidly obese body habitus, cooperative, no acute distress - EENT Eyes: anicteric sclerae, PERRLA, dentition normal - Neck Neck: normal ROM Tenderness in the occipital region - Respiratory Respiratory: bilateral: CTA, negative: diminished, dullness - Cardiovascular Rhythm: regular Heart sounds: normal: S1, S2 Abnormal Heart Sounds: systolic murmur left sternal border, no diastolic murmur, no rub, no S3 Gallop, no S4 Gallop, no click, no other Trace bilateral lower extremity edema - Gastrointestinal General gastrointestinal: normal bowel sounds, soft, nontender - Integumentary Integumentary: decreased turgor, normal - Neurologic Neurologic: CNII-XII intact, generalized weakness (No cranial deficits) - Musculoskeletal Generalized weakness of the upper and lower extremities Musculoskeletal: generalized weakness, strength equal bilaterally - Labs CBC & Chem 7: 09/05/19 07:09 09/05/19 07:09 Labs: Microbiology - Last 24 Hours (Table) 09/04/19 08:05 Blood Culture - Preliminary Blood No Growth after 48 hours Assessment and Plan Plan: 1. Febrile illness of unclear etiology. COVID-19 infection ruled out. Consult with Dr. Roberts and Dr. Cuevas. Covid 19 testing is negative. CAT scan of the abdomen and pelvis as above. Patient is currently on Rocephin. Blood culture showing no growth. Influenza testing negative. Echocardiogram as above. LP scheduled for today. 2. Generalized weakness possibly related to acute febrile illness with underlying MS. 3. History of relapsing remitting multiple sclerosis. 4. Chronic pain and occipital neuralgia under the care of Dr. Ramirez. Continue gabapentin 1200mg 3 times daily-patient will take own medication from home, Percocet one 3 times daily as needed, Fioricet as needed. 5. Hypertension and hypertensive cardiovascular disease. Continue hydrochlo rothiazide 25 mg daily, verapamil 120 mg orally once every day. 6. Obesity with possible obstructive sleep apnea and obesity hypoventilation syndrome. Recommend outpatient sleep study 7. Mild intermittent asthma and COPD. Continue albuterol inhaler every 6 hours as needed, Symbicort twice daily, Singulair 10 mg daily, Spiriva daily, Flonase as needed. 8. Fibromyalgia. Continue gabapentin 1200 mg orally 3 times every day. 8. Generalized anxiety. Continue Ativan 1 mg every 8 hours as needed. 9. Recurrent depression. Continue Paxil 40 mg daily. 10. Chronic tobacco use and dependence. Smoking cessation and counseling an increased risk of CAD, CVA, and malignancy. Continue nicotine patch 21 mg once every day. 11. Mild cognitive impairment. Continue patient on Namenda 10 mg orally twice every day. 13. Restless leg syndrome. Continue Requip 0.25 mg 2 times daily 14. DVT prophylaxis. Heparin every 12 hours. 15. GERD and GI prophylaxis. Continue with Protonix 40 mg orally twice every day. 16. Headache. Voltaren gel added. Consult with pain management status post occipital nerve injection. 17. COVID-19 infection not present. CODE STATUS: Full code Discharge plan: Return home on Thursday. Impression and plan of care have been directed as dictated by the signing physician. Elaine Nguyen nurse practitioner acting as scribe for signing physician.
--- NOTE | 2019-09-07 17:10 | PN ---
PROGRESS NOTE DATE OF SERVICE: 09/07/2019 REASON FOR FOLLOWUP: Fever, possible bronchitis. INTERVAL HISTORY: The patient is currently afebrile. The patient is status post occipital nerve block yesterday. Pain seems to have improved, but not completely done. Denies having any chest pain. She still has some cough with occasional sputum but did not provide a sputum sample. No abdominal pain or diarrhea. PHYSICAL EXAMINATION: Blood pressure 109/75 with a pulse of 83, temperature 98.3. She is 96% on 3 L nasal cannula. General description is a middle-aged female up in the bed in no distress. RESPIRATORY SYSTEM: Unlabored breathing with decreased intensity of breath sounds. No wheeze. HEART: S1, S2. Regular rate and rhythm. ABDOMEN: Soft. No tenderness. LABS/IMAGING: No new labs have been obtained today. Blood culture has been negative. The patient did have a chest x-ray: Cardiomegaly, chronic changes. No acute infiltrate. DIAGNOSTIC IMPRESSION AND PLAN: Patient admitted to hospital with a fever and some respiratory symptoms. Initial concern for possible bronchitis/pneumonia, though workup has been negative so far. There was also consideration of possible aseptic meningitis in view of significant headache. LP was ordered, not done, though the headache has improved with occipital block, making it less likely. Clinically doubt bacterial meningitis. Treatment is more likely going to be symptomatic, anyway. Patient is currently on antibiotic Rocephin; to continue and monitor clinical course closely. MMODL / IJN: [id number] /
[2019-09-07] MEDS: MELATONIN 5 MG TABLET PO SCH (21:20)
[2019-09-08 08:21] VITALS: RESP 18; TEMP 98.3
[2019-09-08] MEDS: MULTIVITAMINS, THERA 1 EACH TAB PO SCH (08:42)
[2019-09-08] MEDS: CHOLECALCIFEROL 1,000 UNIT TAB PO SCH (08:42)
[2019-09-08] MEDS: ASPIRIN 81 MG PO SCH (08:42)
[2019-09-08] MEDS: MEMANTINE 10 MG TAB PO SCH (08:42)
[2019-09-08] MEDS: busPIRone HCl 10 MG TAB PO SCH ×2 (08:42→15:42)
[2019-09-08] MEDS: MONTELUKAST 10 MG TAB PO SCH (08:42)
[2019-09-08] MEDS: HYDROCHLOROTHIAZIDE 25 MG TAB PO SCH (08:42)
[2019-09-08] MEDS: PARoxetine 20 MG TAB PO SCH (08:42)
[2019-09-08] MEDS: LORazepam 1 MG TAB PO PRN ×2 (08:43→15:44)
[2019-09-08] MEDS: BUTALB/APAP/CAFF 50-325-40MG TAB PO PRN ×2 (08:43→15:44)
[2019-09-08] MEDS: FOLIC ACID 1 MG TAB PO SCH (08:43)
[2019-09-08] MEDS: HYDROmorphone 1 MG/ML 1 ML SYRINGE IVP PRN ×2 (08:44→15:43)
[2019-09-08] MEDS: PANTOPRAZOLE 40 MG TABLET PO SCH ×2 (08:45→16:03)
[2019-09-08] MEDS: METHOCARBAMOL 750 MG TAB PO SCH ×2 (08:49→15:42)
[2019-09-08] MEDS: NICOTINE 21MG/24HR PATCH TRANSDERM SCH (08:49)
[2019-09-08] MEDS: VERAPAMIL SR 120 MG TABLET.ER PO SCH (08:50)
[2019-09-08] MEDS: NYSTATIN 100,000 UNIT/ML SUSP 500,000 UNIT/5 ML CUP PO SCH ×3 (08:50→17:33)
[2019-09-08] MEDS: DICLOFENAC SODIUM GEL 100 GM TUBE TOPICAL SCH ×3 (09:05→17:33)
[2019-09-08] MEDS: SODIUM CHLORIDE 0.9% 1,000 ML IV SCH (09:07)
[2019-09-08] MEDS: SYMBICORT 160-4.5 MCG INHALER INHALATION SCH (09:35)
[2019-09-08] MEDS: ALBUTEROL HFA INHALER INHALATION PRN (09:35)
--- NOTE | 2019-09-08 09:46 | P.DS ---
Providers Date of admission: 09/04/19 09:30 Expected date of discharge: 09/08/19 Attending physician: Deneen Thomason Consults: 09/04/19 09:30 Consult Physician Routine Consulting Provider: Tavares Cuevas Consult Reason/Comments: sirs, ro sepsis Do you want consulting provider notified?: Yes 09/04/19 09:33 Consult Physician Routine Consulting Provider: Panfilo Roberts Consult Reason/Comments: hypoxic respiratory failure Do you want consulting provider notified?: Yes 09/06/19 11:17 Consult Physician Routine Consulting Provider: Jakob Garcia Consult Reason/Comments: occipital nerve block Do you want consulting provider notified?: Yes 09/06/19 15:32 Consult to Anesthesia Stat Consulting Provider: Anesthesia,Services Consult Reason/Comments: LP/CSF Primary care physician: Kilo Tabares [facility] Course: This is a 53-year-old female patient of Dr. Tabares and Dr. Ramirez with a previous medical history significant for relapsing remitting multiple sclerosis, hypert ension and hypertensive cardiovascular disease with left ventricular hypertrophy, history of GERD, multiple sclerosis, COPD, asthma, history of osteoporosis, uterine cancer status post surgery, chronic hypoxic respiratory failure on home O2 at 2 L nasal cannula, tobacco use.. Patient has had multiple admissions for acute exacerbation of MS. Most recently she was hospitalized August 08 through August 10 which time she was treated for pneumonia. Patient states she started having a fever yesterday along with chills and muscle aches. She has a cough with clear sputum production. She denies any abdominal pain, no diarrhea. She complains of weak and has generalized all over and lower extremity edema and 2 recent falls. She states she has had uncontrolled movement of her extremities. She denies any dysuria. She complains of a headache that is very severe more so than her baseline headaches. Goes around from the frontal area to the back occipital region. Patient does continue to smoke 1 pack per day. Patient came into [facility] emergency center for evaluation and found to be febrile with a temperature of 101.3, heart rate 108, blood pressure 131/75 and pulse ox 93% on 2 L. WBC 13.3, hemoglobin 13.9, platelet count 261. Sodium 136, potassium 3.8, chloride 92, CO2 39, BUN 6 and creatinine 0.45. Blood sugar 133. Lactic acid 1.6. Magnesium 1.5 and was replaced in the emergency center. C-reactive protein 42. Coronavirus PCR not detected. Urinalysis negative. Patient admitted to the [facility] floor and consult requested with Dr. Cuevas and Dr. Roberts. 09/04: Patient is seen today on the [facility] floor. Echocardiogram was completed this morning report is pending. Patient continues to have significant headache without nuchal rigidity. Voltaren gel will be added. Dr. Cuevas has evaluated the patient started her on Rocephin and ordered a CAT scan of the abdomen and pelvis which revealed no sign of acute abdomen and pelvis. Mild constipation. Possible small bilateral renal calculi. Patient has been afebrile since admission, heart rate 79, blood pressure 130/72, pulse ox 94% on 3 L nasal cannula. WBC is down to 9.8, hemoglobin 13.1, platelet count 226. Sodium 139, potassium 3.6, chloride 95, CO2 40, BUN 8 and creatinine 0.43. C-reactive protein 46.2. Influenza testing not detected. Urinalysis clear with nitrate and leukoesterase negative. Blood culture showing no growth at 24 hours. Echocardiogram ordered for new murmur. 09/05: Patient has been evaluated by pulmonary medicine and no sign of infection/pneumonia. Patient continues to complain of headache in the occipital region. We will ask for pain management to see for occipital block. Influenza testing is negative. Patient is afebrile, heart rate 75, blood pressure 112/75, pulse ox 95% on 3 L nasal cannula. Anticipate discharge home tomorrow. 09/06: Repeat chest x-ray shows no acute pulmonary process. Patient is been cleared for discharge from pulmonary medicine. Patient was seen this morning by Dr. Garcia and bilateral occipital blocks of been done. Patient states she is somewhat tender on the right side but pain is improved. Patient is scheduled for LP diagnostic as requested by Dr. Cuevas today. Patient is afebrile, heart rate 83, blood pressure 109/75, pulse ox 96% on 3 L nasal cannula. 09/07: Today, patient states that her occipital pain is much improved. She does have a little pain/headache in the frontal area. Respiratory status is stable. She has been afebrile and vital signs stable. No plan for lumbar puncture. We will plan to discontinue antibiotics and patient will be discharged home today in stable condition. Discharge diagnoses: 1. Febrile illness of unclear etiology. 2. Generalized weakness possibly related to acute febrile illness with underlying MS. 3. History of relapsing remitting multiple sclerosis. 4. Chronic pain and occipital neuralgia under the care of Dr. Ramirez. 5. Hypertension and hypertensive cardiovascular disease. 6. Obesity with possible obstructive sleep apnea and obesity hypoventilation syndrome. 7. Mild intermittent asthma and COPD. 8. Fibromyalgia. 8. Generalized anxiety. 9. Recurrent depression. 10. Chronic tobacco use and dependence. 11. Mild cognitive impairment. 13. Restless leg syndrome. 14. GERD. 16. Headache. 17. COVID-19 infection not present. Discharge plan: Return home Impression and plan of care have been directed as dictated by the signing physician. Elaine Nguyen nurse practitioner acting as scribe for signing physician. Patient Condition at Discharge: Good Plan - Discharge Summary Discharge Rx Participant: No New Discharge Prescriptions: New Diclofenac Sodium Gel [Voltaren Gel] 2 gm TOPICAL QID #1 tube Continue LORazepam [Ativan] 1 mg PO Q8H PRN PRN Reason: Anxiety Aspirin 81 mg PO DAILY Verapamil HCl [Calan] 120 mg PO DAILY Gabapentin [Neurontin] 1,200 mg PO TID Butalb/APAP/Caff 50-325-40Mg [Fioricet 50-325-40] 1 tab PO Q8H PRN PRN Reason: Migraine Headache oxyCODONE-APAP 10-325MG [Percocet 10-325 mg] 1 tab PO TID PRN PRN Reason: pain rOPINIRole HCL [Requip] 0.25 mg PO TID #90 tab Budesonide/Formoterol Fumarate [Symbicort 160-4.5 Mcg Inhaler] 2 puff INHALATION RT-BID Multivitamins, Thera [Multivitamin (formulary)] 1 tab PO DAILY Cholecalciferol [Vitamin D3 (25 Mcg = 1000 Iu)] 2,000 unit PO DAILY PARoxetine [Paxil] 40 mg PO DAILY tab Pantoprazole Sodium [Protonix] 40 mg PO BID Ipratropium-Albuterol Nebulize [Duoneb 0.5 mg-3 mg/3 ml Soln] 3 ml INHALATION RT-QID PRN PRN Reason: Shortness Of Breath Memantine [Namenda] 10 mg PO BID Montelukast [Singulair] 10 mg PO DAILY Nicotine 21Mg/24Hr Patch [Habitrol] 1 patch TRANSDERM DAILY #30 patch Hydrochlorothiazide [Hydrodiuril] 25 mg PO DAILY tab Fluticasone Nasal [place] [Flonase Nasal [place]] 2 spray EA NOSTRIL DAILY PRN PRN Reason: Congestion Methocarbamol [Robaxin-750] 750 mg PO BID busPIRone HCl [Buspar] 10 mg PO TID #90 tab Folic Acid 1 mg PO DAILY #30 tab Albuterol Sulfate [Ventolin HFA] 1 - 2 puff INHALATION RT-Q6H PRN PRN Reason: Shortness Of Breath Nystatin 100,000 Unit/ml Susp [Mycostatin Oral Susp] 500,000 unit PO QID Discharge Medication List Aspirin 81 mg PO DAILY 02/20/14 [History] LORazepam [Ativan] 1 mg PO Q8H PRN 02/20/14 [History] Verapamil HCl [Calan] 120 mg PO DAILY 02/20/14 [History] Gabapentin [Neurontin] 1,200 mg PO TID 08/19/16 [History] Butalb/APAP/Caff 50-325-40Mg [Fioricet 50-325-40] 1 tab PO Q8H PRN 03/25/17 [History] oxyCODONE-APAP 10-325MG [Percocet 10-325 mg] 1 tab PO TID PRN 01/28/18 [History] rOPINIRole HCL [Requip] 0.25 mg PO TID #90 tab 01/31/18 [Rx] Budesonide/Formoterol Fumarate [Symbicort 160-4.5 Mcg Inhaler] 2 puff INHALATION RT-BID 05/06/18 [History] Cholecalciferol [Vitamin D3 (25 Mcg = 1000 Iu)] 2,000 unit PO DAILY 05/07/18 [History] Multivitamins, Thera [Multivitamin (formulary)] 1 tab PO DAILY 05/07/18 [History] PARoxetine [Paxil] 40 mg PO DAILY tab 05/09/18 [Rx] Pantoprazole Sodium [Protonix] 40 mg PO BID 10/31/18 [History] Ipratropium-Albuterol Nebulize [Duoneb 0.5 mg-3 mg/3 ml Soln] 3 ml INHALATION RT-QID PRN 11/22/18 [History] Memantine [Namenda] 10 mg PO BID 11/22/18 [History] Montelukast [Singulair] 10 mg PO DAILY 11/22/18 [History] Hydrochlorothiazide [Hydrodiuril] 25 mg PO DAILY tab 11/26/18 [Rx] Nicotine 21Mg/24Hr Patch [Habitrol] 1 patch TRANSDERM DAILY #30 patch 11/26/18 [Rx] Fluticasone Nasal [place] [Flonase Nasal [place]] 2 spray EA NOSTRIL DAILY PRN 04/28/19 [History] Methocarbamol [Robaxin-750] 750 mg PO BID 04/28/19 [History] Folic Acid 1 mg PO DAILY #30 tab 05/02/19 [Rx] busPIRone HCl [Buspar] 10 mg PO TID #90 tab 05/02/19 [Rx] Albuterol Sulfate [Ventolin HFA] 1 - 2 puff INHALATION RT-Q6H PRN 08/09/19 [H istory] Nystatin 100,000 Unit/ml Susp [Mycostatin Oral Susp] 500,000 unit PO QID 09/04/19 [History] Diclofenac Sodium Gel [Voltaren Gel] 2 gm TOPICAL QID #1 tube 09/08/19 [Rx] Follow up Appointment(s)/Referral(s): [facility], [NON-STAFF] - Carolynn Ramirez MD [Medical Doctor] - 2 Weeks (Office closed. Please call office when open. Thank you.) Kilo Tabares MD [Primary Care Provider] - 09/14/19 11:30 am (This is a telephone visit... Please call the office at this date and time for your follow- up. Thank you.) Patient Instructions/Handouts: Multiple Sclerosis (GEN), COPD (Chronic Obstructive Pulmonary Disease) (DC) Discharge Disposition: HOME WITH HOME HEALTH SERVICES
[2019-09-08] MEDS: GABAPENTIN 600 MG PO SCH ×2 (09:53→16:03)
--- NOTE | 2019-09-08 11:42 | P.PN ---
Subjective Progress Note Date: 09/08/19 Principal diagnosis: Acute exacerbation of chronic obstructive pulmonary disease This is a pleasant 53-year-old -Japanese female, known to have history of multiple medical problems including MS, COPD, fibromyalgia, hypertension, degenerative joint disease, chronic occipital neuralgia, optic neuritis, chronic tobacco dependence, chronic hypoxic respiratory failure maintained normally on 2 L of oxygen history of chronic bronchitis, uterine cancer and previous hysterectomy, patient presented to the emergency room yesterday with complaints of increasing shortness of breath, fever, weakness. Chest x-ray revealed lungs are clear. Mild cardiomegaly. White count 9.8. Hemoglobin 13.1. MCV 102.9. Sodium 139. Potassium 3.6. Bicarb 40. Creatinine 0.43. CoVID 19 screen negative. Pro-calcitonin 0.07. She is seen today in consultation on the regular medical floor. She is sitting up in bed. Awake and alert in no acute distress. No worsening shortness of breath, cough or congestion. She is maintaining O2 saturations in the mid 90s on 3 L/m per nasal cannula. She's afebrile. Hemodynamically stable. Blood culture reveals no growth to date. She's been initiated on Symbicort, albuterol, ceftriaxone, Singulair. NicoDerm patch is in place. The patient is seen today 09/06/2019 in follow-upon the regular medical floor. She is currently sitting up in bed. Awake and alert in no acute distress. No worsening shortness of breath cough or congestion. No chest pain. She remains afebrile. Hemodynamically stable. Maintain O2 saturations in the mid 90s on 3 L/m per nasal cannula. Echocardiogram revealed preserved left ventricular systolic function with ejection fraction 50-55%. She is having issues with headaches. Currently on Fioricet. On 09/07/2019 patient seen in follow-up on the general medical floor, she states her headaches have improved, she denies any respiratory issues, no cough no wheezing, no shortness of breath, she remains on 3 L of oxygen and the pulse ox 96%, she is afebrile, hemodynamically stable, she received bilateral greater occipital nerve block she is feeling better today. No acute events overnight. No new labs today. Follow up chest x-ray has been obtained showed no acute pulmonary process On 09/08/2019 patient seen in follow-up on general medical floor, no complaints of shortness of breath, lung sounds are essentially clear to auscultation, no rhonchi, no wheezing. Headaches have improved, vital signs are stable, no fever or chills, I'm is on 3 L of oxygen the pulse ox of 98%, no new labs. Patient remains on her inhalers, and empiric antibiotics, blood cultures have shown no growth. Objective - Vital Signs Vital signs: Vital Signs Temp 98.3 F 09/08/19 07:00 Pulse 72 09/08/19 07:00 Resp 18 09/08/19 08:15 BP 110/74 09/08/19 07:00 Pulse Ox 98 09/08/19 07:00 Intake & Output 09/07/19 09/08/19 09/08/19 18:59 06:59 18:59 Intake Total 724 240 Balance 724 240 Intake: Oral 724 240 Other: Voiding Method Toilet # Voids 1 1 1 # Bowel Movements 1 1 - Exam GENERAL EXAM: Alert, very pleasant, 53-year-old -Japanese female 3 L of oxygen and the pulse ox 98% comfortable in no apparent distress. HEAD: Normocephalic/atraumatic. EYES: Normal reaction of pupils, equal size. Conjunctiva pink, sclera white. NOSE: Clear with pink turbinates. THROAT: No erythema or exudates. NECK: No masses, no JVD, no thyroid enlargement, no adenopathy. CHEST: No chest wall deformity. Symmetrical expansion. LUNGS: Equal air entry with no crackles, wheeze, rhonchi or dullness. CVS: Regular rate and rhythm, normal S1 and S2, no gallops, no murmurs, no rubs ABDOMEN: Soft, nontender. No hepatosplenomegaly, normal bowel sounds, no guarding or rigidity. EXTREMITIES: No clubbing, no edema, no cyanosis, 2+ pulses and upper and lower extremities. MUSCULOSKELETAL: Muscle strength and tone normal. SPINE: No scoliosis or deformity SKIN: No rashes CENTRAL NERVOUS SYSTEM: Alert and oriented -3. No focal deficits, tone is normal in all 4 extremities. PSYCHIATRIC: Alert and oriented -3. Appropriate affect. Intact judgment and insight. - Labs CBC & Chem 7: 09/05/19 07:09 09/05/19 07:09 Labs: Microbiology - Last 24 Hours (Table) 09/04/19 08:05 Blood Culture - Preliminary Blood No Growth after 96 hours Assessment and Plan Plan: Assessment: Acute exacerbation of chronic obstructive pulmonary disease. Chest x-ray clear. CoVID 19 screen negative Chronic and ongoing tobacco dependence Acute on chronic hypoxic respiratory failure secondary to above Morbid obesity Multiple sclerosis Fibromyalgia Anxiety/depression Optic neuritis History of osteoporosis Frequent hospitalizations Plan: Patient is doing well, no pulmonary complaints, she continues on her maintenance inhalers, no acute issues overnight, her headaches have improved. Vital signs are stable, stable for discharge home today. I performed a history & physical examination of the patient and discussed their management with my nurse practitioner, Gay Hernandez. I reviewed the nurse practitioner's note and agree with the documented findings and plan of care. Lung sounds are positive for clear breath sounds. The findings and the impression was discussed with the patient. I attest to the documentation by the nurse practitioner. Time with Patient: Less than 30
[2019-09-08 14:48] VITALS: BP 119/80; PULSE 75
--- NOTE | 2019-09-08 18:02 | PN ---
PROGRESS NOTE DATE OF SERVICE: 09/08/2019 REASON FOR FOLLOWUP: Fever, question of bronchitis. INTERVAL HISTORY: The patient is currently afebrile. The patient has been breathing comfortably. The patient's occipital pain has improved after the block. No chest pain. Some cough. No sputum. No abdominal pain or diarrhea. PHYSICAL EXAMINATION: Blood pressure 119/80 with a pulse of 75, temperature 98.3. She is 95% on 3 L nasal cannula. General description is a middle-aged female up in the chair in no distress. RESPIRATORY SYSTEM: Unlabored breathing with decreased breath sounds at the base. No wheeze. HEART: S1, S2. Regular rate and rhythm. ABDOMEN: Soft. No tenderness. LABS: No new labs have been obtained today. Blood culture has been negative. No sputum was provided. DIAGNOSTIC IMPRESSION AND PLAN: Patient admitted to hospital with fever and headache, also some respiratory symptoms with concern for possible tracheobronchitis. Patient treated with Rocephin and did have overall improvement. She did complain of a headache. An LP was ordered, though did not get done. It subsequently has been canceled. Patient improved. She has no fever. Subsequently headache improved after she got a spinal block. Clinically not behaving as bacterial meningitis. She improved on Rocephin. May give a short course of oral Ceftin on discharge. Continue with supportive care. MMODL / IJN: [id number] /
== END 2019-09-08 18:23 | disposition home health service (06) | DRG 190 ==
LOC: EC 07:29 → 4SSUR 09:30
PROVIDERS: ADMIT Family Medicine; ATTEND Family Medicine
PROC: 3E0T33Z Introduction of Anti-inflammatory into Peripheral Nerves and Plexi, Percutaneous Approach (ICD-10-PCS; principal; 2019-09-06 16:30)
PROC: 3E0T3BZ Introduction of Anesthetic Agent into Peripheral Nerves and Plexi, Percutaneous Approach (ICD-10-PCS; principal; 2019-09-06 16:30)
DX: J44.1 Chronic obstructive pulmonary disease with (acute) exacerbation (principal); J96.21 Acute and chronic respiratory failure with hypoxia; F33.9 Major depressive disorder, recurrent, unspecified; H46.9 Unspecified optic neuritis; Z68.41 Body mass index [BMI] 40.0-44.9, adult; J45.20 Mild intermittent asthma, uncomplicated; D72.829 Elevated white blood cell count, unspecified; E66.01 Morbid (severe) obesity due to excess calories; F17.210 Nicotine dependence, cigarettes, uncomplicated; F41.1 Generalized anxiety disorder; G25.81 Restless legs syndrome; G31.84 Mild cognitive impairment of uncertain or unknown etiology; G35 Multiple sclerosis; G89.29 Other chronic pain; H91.90 Unspecified hearing loss, unspecified ear; I11.9 Hypertensive heart disease without heart failure; K21.9 Gastro-esophageal reflux disease without esophagitis; K59.00 Constipation, unspecified; M54.81 Occipital neuralgia; M79.7 Fibromyalgia; Z20.828 Contact with and (suspected) exposure to other viral communicable diseases; M81.0 Age-related osteoporosis without current pathological fracture; Z79.51 Long term (current) use of inhaled steroids; Z79.82 Long term (current) use of aspirin; Z79.899 Other long term (current) drug therapy; Z82.3 Family history of stroke; Z82.41 Family history of sudden cardiac death; Z82.49 Family history of ischemic heart disease and other diseases of the circulatory system; Z85.42 Personal history of malignant neoplasm of other parts of uterus; Z90.710 Acquired absence of both cervix and uterus; Z79.891 Long term (current) use of opiate analgesic; Z87.01 Personal history of pneumonia (recurrent); Z71.6 Tobacco abuse counseling
CPT/HCPCS: 36415; 64405; 71045; 71046; 74177; 80048; 80053; 81003; 83605; 83735; 84145; 85025; 85610; 85652; 85730; 86140; 87040; 87502; 87635; 93005; 93306; 94640; 96365; 96375; 99285

== ENCOUNTER 2019-10-27 06:10 | Inpatient (IN) | payer MEDICARE, OTHER ==
[2019-10-27] MEDS ORDERED: HYDROmorphone 1 MG/ML 1 ML SYRINGE IVP STA (06:25)
[2019-10-27] MEDS ORDERED: SODIUM CHLORIDE 0.9% 500 ML 500 ML IV STA ×2 (06:25→07:12)
[2019-10-27] MEDS ORDERED: SODIUM CHLORIDE 0.9% 1,000 ML IV STA (06:25)
--- NOTE | 2019-10-27 06:27 | ED ---
Abdominal Pain HPI - General Source: patient, EMS, RN notes reviewed, old records reviewed Mode of arrival: EMS Limitations: no limitations - History of Present Illness MD Complaint: abdominal pain -: days(s) Location: diffuse, LUQ, LLQ, L flank Radiation: L flank Migration to: LLQ Severity: severe Severity scale (1-10): 9 Quality: stabbing, aching Consistency: constant Improves With: nothing Worsens With: nothing Context: recent surgery/procedure (infusion) Associated Symptoms: nausea Treatments Prior to Arrival: prescription analgesics <Grabiel Garrido - Last Filed: 10/27/19 06:25> <Jaron Schmitt - Last Filed: 10/27/19 09:31> - General Chief Complaint: Abdominal Pain Stated Complaint: Side Pain Time Seen by Provider: 10/27/19 06:12 - History of Present Illness Initial Comments: Is a 64-year-old female the ER today she presents for evaluation of left side pain left abdominal pain. Patient has had some issues after having recent medi cation infusion was in all day or seizure which she does get quite often having severe back pain pain in her neck has been persistent. The pain is seemed to spread down into her abdomen left side of her abdomen epigastric area and radiating to her left flank. She states her urine has been a little darker no issues of bowel movements no fevers. Surgical history of abdomen including multiple gynecological surgeries no other known surgeries she has a colonoscopy prior which was negative. Patient's taking medication home which is not touching her pain (Grabiel Garrido) - Related Data Home Medications Medication Instructions Recorded Confirmed Aspirin 81 mg PO DAILY 02/20/14 09/04/19 LORazepam [Ativan] 1 mg PO Q8H PRN 02/20/14 09/04/19 Verapamil HCl [Calan] 120 mg PO DAILY 02/20/14 09/04/19 Gabapentin [Neurontin] 1,200 mg PO TID 08/19/16 09/04/19 Butalb/APAP/Caff 50-325-40Mg 1 tab PO Q8H PRN 03/25/17 09/04/19 [Fioricet 50-325-40] oxyCODONE-APAP 10-325MG [Percocet 1 tab PO TID PRN 01/28/18 09/04/19 10-325 mg] Budesonide/Formoterol Fumarate 2 puff INHALATION RT-BID 05/06/18 09/04/19 [Symbicort 160-4.5 Mcg Inhaler] Cholecalciferol [Vitamin D3 (25 2,000 unit PO DAILY 05/07/18 09/04/19 Mcg = 1000 Iu)] Multivitamins, Thera [Multivitamin 1 tab PO DAILY 05/07/18 09/04/19 (formulary)] Pantoprazole Sodium [Protonix] 40 mg PO BID 10/31/18 09/04/19 Ipratropium-Albuterol Nebulize 3 ml INHALATION RT-QID PRN 11/22/18 09/04/19 [Duoneb 0.5 mg-3 mg/3 ml Soln] Memantine [Namenda] 10 mg PO BID 11/22/18 09/04/19 Montelukast [Singulair] 10 mg PO DAILY 11/22/18 09/04/19 Fluticasone Nasal [place] [Flonase 2 spray EA NOSTRIL DAILY PRN 04/28/19 09/04/19 Nasal [place]] Methocarbamol [Robaxin-750] 750 mg PO BID 04/28/19 09/04/19 Albuterol Sulfate [Ventolin HFA] 1 - 2 puff INHALATION RT-Q6H PRN 08/09/19 09/04/19 Nystatin 100,000 Unit/ml Susp 500,000 unit PO QID 09/04/19 09/04/19 [Mycostatin Oral Susp] Previous Rx's Medication Instructions Recorded rOPINIRole HCL [Requip] 0.25 mg PO TID #90 tab 01/31/18 PARoxetine [Paxil] 40 mg PO DAILY tab 05/09/18 Hydrochlorothiazide [Hydrodiuril] 25 mg PO DAILY tab 11/26/18 Nicotine 21Mg/24Hr Patch [Habitrol] 1 patch TRANSDERM DAILY #30 patch 11/26/18 Folic Acid 1 mg PO DAILY #30 tab 05/02/19 busPIRone HCl [Buspar] 10 mg PO TID #90 tab 05/02/19 Diclofenac Sodium Gel [Voltaren 2 gm TOPICAL QID #1 tube 09/08/19 Gel] Amoxic-Pot Clav 875-125Mg 1 tab PO Q12HR 10 Days #20 tab 10/27/19 [Augmentin 875-125] Polyethylene Glycol 3350 [Miralax] 17 gm PO DAILY #7 packet 10/27/19 Allergies Allergy/AdvReac Type Severity Reaction Status Date / Time baclofen AdvReac URINARY Verified 09/04/19 15:55 ISSUES dexamethasone [From Decadron] AdvReac "THOMPSON Verified 09/04/19 15:55 SKIN"/DEHYDRATION Review of Systems ROS Other: All systems not noted in ROS Statement are negative. <Grabiel Garrido - Last Filed: 10/27/19 06:25> ROS Other: All systems not noted in ROS Statement are negative. <Jaron Schmitt - Last Filed: 10/27/19 09:31> ROS Statement: Those systems with pertinent positive or pertinent negative responses have been documented in the HPI. Past Medical History Past Medical History: Asthma, Cancer, COPD, Eye Disorder, Fibromyalgia, GERD/Reflux, Hearing Disorder / Deafness, Hypertension, Memory Impairment, Neurologic Disorder, Osteoarthritis (OA), Pneumonia, Syncope Additional Past Medical History / Comment(s): MS relapsing/remitting type, chronic bilateral eye pain/optic neuritis/ poor vision, cataracts bilaterally, chronic occipital neuralgia, osteoporosis, RLS, chronic hypoxic respiratory failure with home oxygen 2L/NC prn, chronic bronchitis, immunocompromised, elevated blood sugar with steroid use, uterine cancer with hysterectomy/radiation, heart murmur, mild cognitive impairment, chronic vertigo, falls, rheumatic fever as child, tinnitis bilaterally, allergic rhinitis. History of Any Multi-Drug Resistant Organisms: None Reported Past Surgical History: Bladder Surgery, Heart Catheterization, Hysterectomy Additional Past Surgical History / Comment(s): Nerve blocks, bladder suspension. Past Anesthesia/Blood Transfusion Reactions: No Reported Reaction Additional Past Anesthesia/Blood Transfusion Reaction / Comment(s): mild clausterphobia Past Psychological History: Anxiety, Depression Smoking Status: Current every day smoker Past Alcohol Use History: Rare Past Drug Use History: None Reported - Past Family History Mother Family Medical History: CVA/TIA, Myocardial Infarction (ND) Additional Family Medical History / Comment(s): Mother is alive at age 74 with history of brain aneurysm, 3 strokes and 2 myocardial infarctions. Brain aneurysms run on mother's side of family Father Additional Family Medical History / Comment(s): Father at age 72 from a cardiac arrest thought to be due to a myocardial infarction. Sister(s) Additional Family Medical History / Comment(s): Patient has 2 sisters with no major medical problems. Patient does not have any brothers. Patient has 2 adult children with no major medical problems. Patient is only family member with MS. <Grabiel Garrido - Last Filed: 10/27/19 06:25> General Exam Limitations: no limitations <Grabiel Garrido - Last Filed: 10/27/19 06:25> General appearance: alert, in no apparent distress Head exam: Present: normocephalic Eye exam: Present: normal appearance Neck exam: Present: normal inspection Respiratory exam: Present: normal lung sounds bilaterally Cardiovascular Exam: Present: regular rate, normal rhythm Expanded Peripheral pulses: 2+: Posterior Tibialis (R), Posterior Tibialis (L), Dorsalis Pedis (R), Dorsalis Pedis (L) GI/Abdominal exam: Present: soft, tenderness (Mild tenderness left abdomen). Absent: distended Extremities exam: Present: normal inspection Back exam: Present: tenderness (Mild tenderness lumbar region) Neurological exam: Present: alert. Absent: motor sensory deficit Expanded Motor strength exam: RLE: 5, LLE: 5 Psychiatric exam: Present: normal affect, normal mood Skin exam: Present: normal color <Jaron Schmitt - Last Filed: 10/27/19 09:31> Course <Grabiel Garrido - Last Filed: 10/27/19 06:25> Vital Signs 10/27/19 06:11 Temperature 98.3 F Pulse Rate 99 Respiratory 19 Rate Blood Pressure 114/77 O2 Sat by Pulse 94 L Oximetry - Reevaluation(s) Reevaluation #1: 10/27/19 06:27 Medical records reviewed (Grabiel Garrido) Reevaluation #2: 10/27/19 06:57 Pain currently improved (Grabiel Garrido) Medical Decision Making - Lab Data Result diagrams: 10/27/19 06:28 10/27/19 06:28 - Radiology Data Radiology results: report reviewed (Computed tomography scan abdomen pelvis does show mild to moderate clonic fecal stasis. No suspiciousAcute findings. No bowel obstruction.) <Jaron Schmitt - Last Filed: 10/27/19 09:31> - Medical Decision Making Case endorsed to me for probable discharge pending CT results. Patient reevaluated and resting comfortably in bed. Patient states she been having discomfort of her back and abdomen for the past week. Patient does have mild tenderness diffuse lower back. Patient states symptoms feel like spasms. There is also mild tenderness on abdominal exam. Computed tomography scan showed mild to moderate clonic fecal stasis otherwise no acute abnormality. Patient updated on results and need for follow-up. Patient is on several pain medications at home including baclofen and Percocet and the fiorcet and gabapentin. Case was discussed with Dr. Tabares who is familiar with this patient. He recommends Augmentin for possible diverticulitis early-onset that is not showing up on CAT scan and MiraLAX and will follow up with patient. (Jaron Schmitt) - Lab Data Lab Results 10/27/19 10/27/19 10/27/19 Range/Units 06:28 06:28 06:28 WBC 12.2 H (3.8-10.6) k/uL RBC 4.63 (3.80-5.40) m/uL Hgb 14.9 (11.4-16.0) gm/dL Hct 47.1 H (34.0-46.0) % MCV 101.8 H (80.0-100.0) fL MCH 32.3 (25.0-35.0) pg MCHC 31.7 (31.0-37.0) g/dL RDW 13.1 (11.5-15.5) % Plt Count 247 (150-450) k/uL Neutrophils % 69 % Lymphocytes % 23 % Monocytes % 4 % Eosinophils % 2 % Basophils % 0 % Neutrophils # 8.5 H (1.3-7.7) k/uL Lymphocytes # 2.8 (1.0-4.8) k/uL Monocytes # 0.5 (0-1.0) k/uL Eosinophils # 0.3 (0-0.7) k/uL Basophils # 0.1 (0-0.2) k/uL Hypochromasia Slight Macrocytosis Slight Sodium 135 L (137-145) mmol/L Potassium 3.2 L (3.5-5.1) mmol/L Chloride 94 L (98-107) mmol/L Carbon Dioxide 32 H (22-30) mmol/L Anion Gap 9 mmol/L BUN 7 (7-17) mg/dL Creatinine 0.44 L (0.52-1.04) mg/dL Est GFR (CKD-EPI)AfAm >90 (>60 ml/min/1.73 sqM) Est GFR (CKD-EPI)NonAf >90 (>60 ml/min/1.73 sqM) Glucose 156 H (74-99) mg/dL Lactic Ac Sepsis Rflx Plasma Lactic Acid Adalid 2.3 H* (0.7-2.0) mmol/L Calcium 9.1 (8.4-10.2) mg/dL Phosphorus 3.0 (2.5-4.5) mg/dL Magnesium 1.6 (1.6-2.3) mg/dL Total Bilirubin 0.6 (0.2-1.3) mg/dL AST 20 (14-36) U/L ALT 18 (4-34) U/L Alkaline Phosphatase 99 (38-126) U/L Creatine Kinase 31 (30-135) U/L Total Protein 6.4 (6.3-8.2) g/dL Albumin 4.1 (3.5-5.0) g/dL Amylase 40 (30-110) U/L Lipase 45 (23-300) U/L Urine Color Urine Appearance (Clear) Urine pH (5.0-8.0) Ur Specific [place] (1.001-1.035) Urine Protein (Negative) Urine Glucose (UA) (Negative) Urine Ketones (Negative) Urine Blood (Negative) Urine Nitrite (Negative) Urine Bilirubin (Negative) Urine Urobilinogen (<2.0) mg/dL Ur Leukocyte Esterase (Negative) Urine RBC (0-5) /hpf Urine WBC (0-5) /hpf Ur Squamous Epith Cells (0-4) /hpf Urine Bacteria (None) /hpf 10/27/19 10/27/19 Range/Units 07:04 07:24 WBC (3.8-10.6) k/uL RBC (3.80-5.40) m/uL Hgb (11.4-16.0) gm/dL Hct (34.0-46.0) % MCV (80.0-100.0) fL MCH (25.0-35.0) pg MCHC (31.0-37.0) g/dL RDW (11.5-15.5) % Plt Count (150-450) k/uL Neutrophils % % Lymphocytes % % Monocytes % % Eosinophils % % Basophils % % Neutrophils # (1.3-7.7) k/uL Lymphocytes # (1.0-4.8) k/uL Monocytes # (0-1.0) k/uL Eosinophils # (0-0.7) k/uL Basophils # (0-0.2) k/uL Hypochromasia Macrocytosis Sodium (137-145) mmol/L Potassium (3.5-5.1) mmol/L Chloride (98-107) mmol/L Carbon Dioxide (22-30) mmol/L Anion Gap mmol/L BUN (7-17) mg/dL Creatinine (0.52-1.04) mg/dL Est GFR (CKD-EPI)AfAm (>60 ml/min/1.73 sqM) Est GFR (CKD-EPI)NonAf (>60 ml/min/1.73 sqM) Glucose (74-99) mg/dL Lactic Ac Sepsis Rflx Y Plasma Lactic Acid Adalid (0.7-2.0) mmol/L Calcium (8.4-10.2) mg/dL Phosphorus (2.5-4.5) mg/dL Magnesium (1.6-2.3) mg/dL Total Bilirubin (0.2-1.3) mg/dL AST (14-36) U/L ALT (4-34) U/L Alkaline Phosphatase (38-126) U/L Creatine Kinase (30-135) U/L Total Protein (6.3-8.2) g/dL Albumin (3.5-5.0) g/dL Amylase (30-110) U/L Lipase (23-300) U/L Urine Color Light Yellow Urine Appearance Cloudy H (Clear) Urine pH 6.5 (5.0-8.0) Ur Specific [place] 1.007 (1.001-1.035) Urine Protein Negative (Negative) Urine Glucose (UA) Negative (Negative) Urine Ketones Negative (Negative) Urine Blood Negative (Negative) Urine Nitrite Negative (Negative) Urine Bilirubin Negative (Negative) Urine Urobilinogen <2.0 (<2.0) mg/dL Ur Leukocyte Esterase Small H (Negative) Urine RBC 1 (0-5) /hpf Urine WBC 5 (0-5) /hpf Ur Squamous Epith Cells 8 H (0-4) /hpf Urine Bacteria Many H (None) /hpf Disposition <Grabiel Garrido - Last Filed: 10/27/19 06:25> Is patient prescribed a controlled substance at d/c from ED?: No Time of Disposition: 09:29 <Jaron Schmitt - Last Filed: 10/27/19 09:31> Clinical Impression: Abdominal pain, Back pain Disposition: HOME SELF-CARE Condition: Stable Instructions (If sedation given, give patient instructions): Abdominal Pain (ED) Additional Instructions: Take MiraLAX daily until large bowel movement. Prescription sent to [facility] pharmacy. Please follow-up with Dr. Tabares in the next day or 2 for recheck. Return for increased pain, weakness, fevers, worsening or changing symptoms or other concerns. Prescriptions: Amoxic-Pot Clav 875-125Mg [Augmentin 875-125] 1 tab PO Q12HR 10 Days #20 tab Polyethylene Glycol 3350 [Miralax] 17 gm PO DAILY #7 packet Referrals: Kilo Tabares MD [Primary Care Provider] - 1-2 days
[2019-10-27 06:41] LABS: Basophils # (A) 0.1 k/uL (0-0.2); Basophils % (A) 0 %; Eosinophils # (A) 0.3 k/uL (0-0.7); Eosinophils % (A) 2 %; HCT 47.1 % (34.0-46.0); HGB 14.9 gm/dL (11.4-16.0); Hypochromasia Slight; Lymphocytes # (A) 2.8 k/uL (1.0-4.8); Lymphocytes % (A) 23 %; MCH 32.3 pg (25.0-35.0); MCHC 31.7 g/dL (31.0-37.0); MCV 101.8 fL (80.0-100.0); Macrocytosis Slight; Mean Platelet Volume 8.9; Monocytes # (A) 0.5 k/uL (0-1.0); Monocytes % (A) 4 %; Neutrophils # (A) 8.5 k/uL (1.3-7.7); Neutrophils % (A) 69 %; Platelet Count 247 k/uL (150-450); RBC 4.63 m/uL (3.80-5.40); RDW 13.1 % (11.5-15.5); WBC 12.2 k/uL (3.8-10.6)
[2019-10-27 06:58] LABS: ALT 18 U/L (4-34); AST 20 U/L (14-36); African American GFR (CKD) >90 (>60 ml/min/1.73 sqM); Albumin 4.1 g/dL (3.5-5.0); Alkaline Phosphatase 99 U/L (38-126); Amylase 40 U/L (30-110); Anion Gap 9 mmol/L; Blood Urea Nitrogen 7 mg/dL (7-17); Calcium 9.1 mg/dL (8.4-10.2); Carbon Dioxide 32 mmol/L (22-30); Chloride 94 mmol/L (98-107); Creatine Kinase 31 U/L (30-135); Glucose 156 mg/dL (74-99); Magnesium 1.6 mg/dL (1.6-2.3); Non-African American GFR(CKD) >90 (>60 ml/min/1.73 sqM); Potassium 3.2 mmol/L (3.5-5.1); Sodium 135 mmol/L (137-145); Total Bilirubin 0.6 mg/dL (0.2-1.3); Total Protein 6.4 g/dL (6.3-8.2)
[2019-10-27 07:48] LABS: Appearance,Urine Cloudy (Clear); Bacteria,Urine Many /hpf; Bilirubin,Urine Negative (Negative); Blood,Urine Negative (Negative); Color,Urine Light Yellow; Glucose,Urine (UA) Negative (Negative); Ketones,Urine Negative (Negative); Leukocyte Esterase,Urine Small (Negative); Nitrite,Urine Negative (Negative); PH, Urine 6.5 (5.0-8.0); Protein,Urine Negative (Negative); RBC,Urine 1 /hpf (0-5); Specific Gravity,Urine 1.007 (1.001-1.035); Squamous Epithelial Cell,Urine 8 /hpf (0-4); Urobilinogen,Urine <2.0 mg/dL (<2.0); WBC,Urine 5 /hpf (0-5)
--- NOTE | 2019-10-27 08:42 | CT ---
EXAMINATION TYPE: CT abdomen pelvis w con DATE OF EXAM: 10/27/2019 HISTORY: Abdominal pain not further specified. CT DLP: 1793.6mGycm Automated Exposure Control for Dose Reduction was Utilized. CONTRAST: CT scan of the abdomen and pelvis is performed with IV Contrast, patient injected with 100 ml mL of I sovue 300. COMPARISON: CT abdomen and pelvis September 04, 2019. FINDINGS: LUNG BASES: Redemonstration of 5 x 4 mm posterior right lower lobe nodule axial image 4. Mild bibasil ar basilar linear scarring and/or atelectasis. Lesion not clearly identified on older CT chest studie s. LIVER/GB: Roughly 2.0 cm thin-walled cyst left hepatic dome anteriorly is redemonstrated. Liver is lo w dense consistent with mild diffuse fatty infiltration.. PANCREAS: No significant abnormality is seen. SPLEEN: No significant abnormality is seen. ADRENALS: No significant abnormality is seen. KIDNEYS: Symmetric cortical medullary uptake and excretion without hydronephrosis seen bilaterally. BOWEL: Evaluation slightly suboptimal secondary to lack of enteric contrast. No suspicious small or l arge bowel dilatation. Low-lying cecum into the anterior right pelvis. Prominence of fecal material i n the right and proximal one half of the transverse colon. Some sigmoid colonic diverticula. No CT ev idence for acute diverticulitis. UTERUS/ADNEXA: Uterus surgically absent or markedly atrophic. LYMPH NODES: No greater than 1cm abdominal or pelvic lymph nodes are appreciated. OSSEOUS STRUCTURES: Mild facet arthropathy lower lumbar spine. OTHER: No significant additional abnormality is seen. IMPRESSION: No bowel obstruction. Perhaps Mild to moderate proximal colonic fecal stasis redemonstrat ed. No suspicious new or acute finding identified.
[2019-10-27] MEDS ORDERED: ORPHENADRINE 30 MG/ML 2 ML VIAL IVP STA (09:11)
[2019-10-27 10:37] LABS: ABG Base Excess 6.3 mmol/L; ABG HCO3 33 mmol/L (21-25); ABG Oxygen Saturation 95.7 % (94-97); ABG PH 7.28 (7.35-7.45); ABG PO2 87 mmHg (83-108); ABG TCO2 35 mmol/L (19-24); Allen Test Performed? Yes
--- NOTE | 2019-10-27 10:43 | XR ---
EXAMINATION TYPE: XR chest 2V DATE OF EXAM: 10/27/2019 COMPARISON: 09/07/2019 TECHNIQUE: PA and lateral views submitted. HISTORY: Elevated blood pressure FINDINGS: The lungs are clear and there is no pneumothorax, pleural effusion, or focal pneumonia. Heart is en larged. There is biapical pleural thickening. Mildly coarsened interstitium. IMPRESSION: 1. Cardiomegaly. Coarsened interstitium could be on the basis of bronchitis or interstitial pneumonit is. Correlate clinically.
[2019-10-27 10:50] LABS: ABG PCO2 71 mmHg (35-45)
--- NOTE | 2019-10-27 11:07 | ED ---
Medical Decision Making - Medical Decision Making EKG shows sinus tachycardia 140. CA 142. QRS 84. QT 274. QTC 418. Normal axis. Inferior Q waves. No acute ST change. Prior to discharge patient heart rate did increase the EKG and x-ray obtained. Chest x-ray shows cardiomegaly and coarse interstitium. Possible bronchitis or interstitial pneumonitis. Blood gas reviewed. Patient placed on BiPAP. Patient states there was some mild difficulty breathing similar to her previous COPD. Heart rate now improved to 105. Lung sounds remain unremarkable. Case was discussed with Dr. Minor, who will admit covering for Dr. Tabares. There is concern for possible sepsis. Blood culture and lactic acid ordered. IV antibiotics ordered. Time of concern for sepsis is 11:10 AM. - Lab Data Result diagrams: 10/27/19 06:10/27/19 06:28 Lab Results 10/27/19 10/27/19 10/27/19 Range/Units 06:28 06:28 06:28 WBC 12.2 H (3.8-10.6) k/uL RBC 4.63 (3.80-5.40) m/uL Hgb 14.9 (11.4-16.0) gm/dL Hct 47.1 H (34.0-46.0) % MCV 101.8 H (80.0-100.0) fL MCH 32.3 (25.0-35.0) pg MCHC 31.7 (31.0-37.0) g/dL RDW 13.1 (11.5-15.5) % Plt Count 247 (150-450) k/uL Neutrophils % 69 % Lymphocytes % 23 % Monocytes % 4 % Eosinophils % 2 % Basophils % 0 % Neutrophils # 8.5 H (1.3-7.7) k/uL Lymphocytes # 2.8 (1.0-4.8) k/uL Monocytes # 0.5 (0-1.0) k/uL Eosinophils # 0.3 (0-0.7) k/uL Basophils # 0.1 (0-0.2) k/uL Hypochromasia Slight Macrocytosis Slight Sample Site ABG pH (7.35-7.45) ABG pCO2 (35-45) mmHg ABG pO2 (83-108) mmHg ABG HCO3 (21-25) mmol/L ABG Total CO2 (19-24) mmol/L ABG O2 Saturation (94-97) % ABG Base Excess mmol/L Warner Test FiO2 % Sodium 135 L (137-145) mmol/L Potassium 3.2 L (3.5-5.1) mmol/L Chloride 94 L (98-107) mmol/L Carbon Dioxide 32 H (22-30) mmol/L Anion Gap 9 mmol/L BUN 7 (7-17) mg/dL Creatinine 0.44 L (0.52-1.04) mg/dL Est GFR (CKD-EPI)AfAm >90 (>60 ml/min/1.73 sqM) Est GFR (CKD-EPI)NonAf >90 (>60 ml/min/1.73 sqM) Glucose 156 H (74-99) mg/dL Lactic Ac Sepsis Rflx Plasma Lactic Acid Adalid 2.3 H* (0.7-2.0) mmol/L Calcium 9.1 (8.4-10.2) mg/dL Phosphorus 3.0 (2.5-4.5) mg/dL Magnesium 1.6 (1.6-2.3) mg/dL Total Bilirubin 0.6 (0.2-1.3) mg/dL AST 20 (14-36) U/L ALT 18 (4-34) U/L Alkaline Phosphatase 99 (38-126) U/L Creatine Kinase 31 (30-135) U/L Total Protein 6.4 (6.3-8.2) g/dL Albumin 4.1 (3.5-5.0) g/dL Amylase 40 (30-110) U/L Lipase 45 (23-300) U/L Urine Color Urine Appearance (Clear) Urine pH (5.0-8.0) Ur Specific [place] (1.001-1.035) Urine Protein (Negative) Urine Glucose (UA) (Negative) Urine Ketones (Negative) Urine Blood (Negative) Urine Nitrite (Negative) Urine Bilirubin (Negative) Urine Urobilinogen (<2.0) mg/dL Ur Leukocyte Esterase (Negative) Urine RBC (0-5) /hpf Urine WBC (0-5) /hpf Ur Squamous Epith Cells (0-4) /hpf Urine Bacteria (None) /hpf 10/27/19 10/27/19 10/27/19 Range/Units 07:04 07:24 10:32 WBC (3.8-10.6) k/uL RBC (3.80-5.40) m/uL Hgb (11.4-16.0) gm/dL Hct (34.0-46.0) % MCV (80.0-100.0) fL MCH (25.0-35.0) pg MCHC (31.0-37.0) g/dL RDW (11.5-15.5) % Plt Count (150-450) k/uL Neutrophils % % Lymphocytes % % Monocytes % % Eosinophils % % Basophils % % Neutrophils # (1.3-7.7) k/uL Lymphocytes # (1.0-4.8) k/uL Monocytes # (0-1.0) k/uL Eosinophils # (0-0.7) k/uL Basophils # (0-0.2) k/uL Hypochromasia Macrocytosis Sample Site rrad ABG pH 7.28 L (7.35-7.45) ABG pCO2 71 H* (35-45) mmHg ABG pO2 87 (83-108) mmHg ABG HCO3 33 H (21-25) mmol/L ABG Total CO2 35 H (19-24) mmol/L ABG O2 Saturation 95.7 (94-97) % ABG Base Excess 6.3 mmol/L Warner Test Yes FiO2 28 % Sodium (137-145) mmol/L Potassium (3.5-5.1) mmol/L Chloride (98-107) mmol/L Carbon Dioxide (22-30) mmol/L Anion Gap mmol/L BUN (7-17) mg/dL Creatinine (0.52-1.04) mg/dL Est GFR (CKD-EPI)AfAm (>60 ml/min/1.73 sqM) Est GFR (CKD-EPI)NonAf (>60 ml/min/1.73 sqM) Glucose (74-99) mg/dL Lactic Ac Sepsis Rflx Y Plasma Lactic Acid Adalid (0.7-2.0) mmol/L Calcium (8.4-10.2) mg/dL Phosphorus (2.5-4.5) mg/dL Magnesium (1.6-2.3) mg/dL Total Bilirubin (0.2-1.3) mg/dL AST (14-36) U/L ALT (4-34) U/L Alkaline Phosphatase (38-126) U/L Creatine Kinase (30-135) U/L Total Protein (6.3-8.2) g/dL Albumin (3.5-5.0) g/dL Amylase (30-110) U/L Lipase (23-300) U/L Urine Color Light Yellow Urine Appearance Cloudy H (Clear) Urine pH 6.5 (5.0-8.0) Ur Specific [place] 1.007 (1.001-1.035) Urine Protein Negative (Negative) Urine Glucose (UA) Negative (Negative) Urine Ketones Negative (Negative) Urine Blood Negative (Negative) Urine Nitrite Negative (Negative) Urine Bilirubin Negative (Negative) Urine Urobilinogen <2.0 (<2.0) mg/dL Ur Leukocyte Esterase Small H (Negative) Urine RBC 1 (0-5) /hpf Urine WBC 5 (0-5) /hpf Ur Squamous Epith Cells 8 H (0-4) /hpf Urine Bacteria Many H (None) /hpf Critical Care Time Critical Care Time: Yes Total Critical Care Time: 33 Disposition Clinical Impression: Abdominal pain, Back pain, Pneumonitis, Sepsis, Respiratory failure Disposition: ADMITTED IP TO THIS [facility] Condition: Stable Instructions (If sedation given, give patient instructions): Abdominal Pain (ED) Additional Instructions: Take MiraLAX daily until large bowel movement. Prescription sent to [facility] pharmacy. Please follow-up with Dr. Tabares in the next day or 2 for recheck. Return for increased pain, weakness, fevers, worsening or changing symptoms or other concerns. Prescriptions: Amoxic-Pot Clav 875-125Mg [Augmentin 875-125] 1 tab PO Q12HR 10 Days #20 tab Polyethylene Glycol 3350 [Miralax] 17 gm PO DAILY #7 packet Referrals: Kilo Tabares MD [Primary Care Provider] - 1-2 days Decision Time: 11:15 Procedures - ABG Interpretation Ph: 7.27 PCO2: 70.9 PO2: 87.2 Bicarbonate: 33.1 Interpretation: respiratory acidosis
[2019-10-27] MEDS ORDERED: PNEUMONIA PROTOCOL UTILIZED 1 EACH MISC PO PRN (11:12)
[2019-10-27] MEDS ORDERED: AZITHROMYCIN 500 MG in SODIUM CHLORIDE 0.9% 250 ML IVPB STA (11:12)
[2019-10-27] MEDS ORDERED: IPRATROPIUM-ALBUTEROL 3 ML NEB INHALATION PRN ×2 (11:12→13:08)
[2019-10-27] MEDS ORDERED: FLUTICASONE 50MCG/SPRAY NASAL 16GM EA NOSTRIL PRN (13:08)
[2019-10-27] MEDS ORDERED: ALBUTEROL HFA INHALER INHALATION PRN (13:08)
[2019-10-27] MEDS ORDERED: HYDROmorphone 1 MG/ML 1 ML SYRINGE IM PRN ×2 (13:21→13:44)
[2019-10-27] MEDS: IPRATROPIUM-ALBUTEROL 3 ML NEB INHALATION SCH ×3 (13:26→19:48)
[2019-10-27] MEDS: ASPIRIN 81 MG PO SCH (14:18)
--- NOTE | 2019-10-27 14:27 | P.HPIM ---
History of Present Illness H&P Date: 10/27/19 Chief Complaint: Left lower quadrant pain, dyspnea This is a 53-year-old female patient of Dr. Tabares and Dr. Ramirez with a previous medical history significant for relapsing remitting multiple sclerosis, hypertension and hypertensive cardiovascular disease with left ventricular hypertrophy, history of GERD, multiple sclerosis, COPD, asthma, history of osteoporosis, uterine cancer status post surgery, chronic hypoxic respiratory failure on home O2 at 2 L nasal cannula, tobacco use and dependence. Patient has had multiple admissions for acute exacerbation of MS. patient states that she was at Dr. Ramirez's office on Thursday of last week and underwent infusion for 6-1/2 hours. Since then she has had trouble with left lower quadrant discomfort. She states is very sharp and hurts as bad as having a baby. She denies any burning or pain with urination. No nausea or vomiting. She denies any fever or chills. She denies any significant weakness. She does complain of some right occipital discomfort. She came into [facility] emergency center for evaluation. She was afebrile, heart rate 99, blood pressure 114/77, pulse ox 94% on room air. Lab work reveals WBC 12.2, hemoglobin 14.9, platelet count 247. Sodium 135, potassium 3.2, chloride 94, CO2 32, BUN 7 and creatinine 0.44. Lactic acid 2.3. Liver function tests all within normal limits. Urinalysis cloudy, leukoesterase small, bacteria many. CAT scan of the abdomen and pelvis showed no bowel obstruction. Perhaps mild to moderate proximal colonic fecal stasis redemonstrated. No suspicious new or acute finding. The patient was prepared for discharge but then developed diffic ulty breathing and pulse ox dropped down to 76%. Patient was initially placed on BiPAP. ABGs revealed pH of 7.28, pCO2 71, P O2 87, bicarbonate 33, total CO2 35, O2 saturation 95.7 with FiO2 of 28. D-dimer was order that came back at 0.19. C reactive protein 61.2 and proBNP 41. Chest x-ray reveals cardiomegaly. Coarsened interstitium could be on the basis of bronchitis or interstitial pneumonitis. Patient to be admitted to the hospital and consult placed with Dr. Rushnig. Coronavirus PCR testing in process. Review of Systems Constitutional: Denies chills, Reports fatigue, denies fever, denies lethargy, denies malaise Eyes: denies blurred vision, denies pain Ears, nose, mouth and throat: Denies dysphagia, Denies headache, Denies nasal congestion, Denies nasal discharge, Denies sore throat, Denies vertigo Cardiovascular: Denies dyspnea on exertion, Denies chest pain, Denies edema, Denies irregular heart beat, Denies leg edema, Denies lightheadedness, reports shortness of breath, Denies syncope Respiratory: Denies cough, denies cough with white sputum, Reports dyspnea, Denies excessive sputum, Denies hemoptysis, reports home oxygen, Denies wheezing Gastrointestinal: Reports abdominal pain, Denies diarrhea, Denies loss of appetite, Denies nausea, Denies vomiting Genitourinary: Denies dysuria, Denies hematuria, Denies urgency, Denies urinary frequency Musculoskeletal: Reports gait dysfunction chronic, Reports muscle weakness, reports myalgias Integumentary: Denies pruritus, Denies rash, Denies wounds Neurological: Denies change in mentation, Denies change in speech, Denies numbness, Denies weakness Psychiatric: Denies anxiety, Denies depression Endocrine: Denies fatigue, Denies weight change Physical Examination Gen: This is a morbidly obese 54-year-old -Greek female. She is resting on the ER stretcher BiPAP is in place, patient able to speak in full sentences. HEENT: Head is atraumatic, normocephalic. Pupils equal, round. Sclerae is anicteric. NECK: Supple. No JVD. No lymphadenopathy. No thyromegaly. LUNGS: Clear to auscultation. No wheezes or rhonchi. No intercostal retractions. HEART: Regular rate and rhythm. No murmur. ABDOMEN: Soft. Bowel sounds are present. No masses. No tenderness. EXTREMITIES: No pedal edema. No calf tenderness. NEUROLOGICAL: Patient is awake, alert and oriented x3. Cranial nerves 2 through 12 are grossly intact. Hand hide buffer equal and strong bilaterally, foot push pull strong bilaterally. Assessment and Plan 1. Hypoxia and complaints of dyspnea. Patient's been placed on BiPAP. Repeat Chest x-ray in the morning. Consult with Dr. Rushing. Continue ceftriaxone, azithromycin, Symbicort twice daily, DuoNeb treatments 4 times daily and as needed. 2. Left lower quadrant pain, possible constipation. Patient started on MiraLAX. 3. History of relapsing remitting multiple sclerosis. 4. Chronic pain and occipital neuralgia under the care of Dr. Ramirez. Continue gabapentin 1200mg 3 times daily, Percocet one 3 times daily as needed, Fioricet as needed. 5. Hypertension and hypertensive cardiovascular disease. Hold hy drochlorothiazide 25 mg daily, verapamil 120 mg orally once every day--for hypotension. 6. Obesity with possible obstructive sleep apnea and obesity hypoventilation syndrome. BiPAP. 7. Mild intermittent asthma and COPD. Continue albuterol inhaler every 6 hours as needed, Symbicort twice daily, Singulair 10 mg daily, Flonase as needed. 8. Fibromyalgia. Continue gabapentin 1200 mg orally 3 times every day. 8. Generalized anxiety disorder. Continue Ativan 1 mg every 8 hours as needed. 9. Recurrent depression. Continue Paxil 40 mg daily. 10. Chronic tobacco use and dependence. Smoking cessation and counseling an increased risk of CAD, CVA, and malignancy. Continue nicotine patch 21 mg once every day. 11. Mild cognitive impairment. Continue patient on Namenda 10 mg orally twice every day. 13. Restless leg syndrome. Continue Requip 0.25 mg 2 times daily 14. DVT prophylaxis. Lovenox 40 mg subcutaneously every 24 hours. 15. GERD and GI prophylaxis. Continue with Protonix 40 mg orally twice every day. 16. COVID-19 testing in process. CODE STATUS: Full code Patient minutes to the hospital for a minimum of 2 night stay. Impression and plan of care have been directed as dictated by the signing physician. Elaine Nguyen nurse practitioner acting as scribe for signing physician. Past Medical History Past Medical History: Asthma, Cancer, COPD, Eye Disorder, Fibromyalgia, GERD/Reflux, Hearing Disorder / Deafness, Hypertension, Memory Impairment, Neurologic Disorder, Osteoarthritis (OA), Pneumonia, Syncope Additional Past Medical History / Comment(s): MS relapsing/remitting type, chronic bilateral eye pain/optic neuritis/ poor vision, cataracts bilaterally, chronic occipital neuralgia, osteoporosis, RLS, chronic hypoxic respiratory failure with home oxygen 2L/NC prn, chronic bronchitis, immunocompromised, elevated blood sugar with steroid use, uterine cancer with hysterectomy/radiat ion, heart murmur, mild cognitive impairment, chronic vertigo, falls, rheumatic fever as child, tinnitis bilaterally, allergic rhinitis. History of Any Multi-Drug Resistant Organisms: None Reported Past Surgical History: Bladder Surgery, Heart Catheterization, Hysterectomy Additional Past Surgical History / Comment(s): Nerve blocks, bladder suspension. Past Anesthesia/Blood Transfusion Reactions: No Reported Reaction Additional Past Anesthesia/Blood Transfusion Reaction / Comment(s): mild clausterphobia Past Psychological History: Anxiety, Depression Smoking Status: Current every day smoker Past Alcohol Use History: Rare Past Drug Use History: None Reported - Past Family History Mother Family Medical History: CVA/TIA, Myocardial Infarction (DE) Additional Family Medical History / Comment(s): Mother is alive at age 74 with history of brain aneurysm, 3 strokes and 2 myocardial infarctions. Brain aneurysms run on mother's side of family Father Additional Family Medical History / Comment(s): Father at age 72 from a cardiac arrest thought to be due to a myocardial infarction. Sister(s) Additional Family Medical History / Comment(s): Patient has 2 sisters with no major medical problems. Patient does not have any brothers. Patient has 2 adult children with no major medical problems. Patient is only family member with MS. Medications and Allergies Home Medications Medication Instructions Recorded Confirmed Type Aspirin 81 mg PO DAILY 02/20/14 10/27/19 History LORazepam [Ativan] 1 mg PO Q8H PRN 02/20/14 10/27/19 History Verapamil HCl [Calan] 120 mg PO DAILY 02/20/14 10/27/19 History Gabapentin [Neurontin] 1,200 mg PO TID 08/19/16 10/27/19 History Butalb/APAP/Caff 50-325-40Mg 1 tab PO Q8H PRN 03/25/17 10/27/19 History [Fioricet 50-325-40] oxyCODONE-APAP 10-325MG [Percocet 1 tab PO TID PRN 01/28/18 10/27/19 History 10-325 mg] rOPINIRole HCL [Requip] 0.25 mg PO TID #90 tab 01/31/18 10/27/19 Rx Budesonide/Formoterol Fumarate 2 puff INHALATION RT-BID 05/06/18 10/27/19 History [Symbicort 160-4.5 Mcg Inhaler] Cholecalciferol [Vitamin D3 (25 2,000 unit PO DAILY 05/07/18 10/27/19 History Mcg = 1000 Iu)] Multivitamins, Thera [Multivitamin 1 tab PO DAILY 05/07/18 10/27/19 History (formulary)] PARoxetine [Paxil] 40 mg PO DAILY tab 05/09/18 10/27/19 Rx Pantoprazole Sodium [Protonix] 40 mg PO BID 10/31/18 10/27/19 History Ipratropium-Albuterol Nebulize 3 ml INHALATION RT-QID PRN 11/22/18 10/27/19 Hist ory [Duoneb 0.5 mg-3 mg/3 ml Soln] Memantine [Namenda] 10 mg PO BID 11/22/18 10/27/19 History Montelukast [Singulair] 10 mg PO DAILY 11/22/18 10/27/19 History Hydrochlorothiazide [Hydrodiuril] 25 mg PO DAILY tab 11/26/18 10/27/19 Rx Nicotine 21Mg/24Hr Patch [Habitrol] 1 patch TRANSDERM DAILY #30 patch 11/26/18 10/27/19 Rx Fluticasone Nasal Hext [Flonase 2 spray EA NOSTRIL DAILY PRN 04/28/19 10/27/19 History Nasal Hext] Methocarbamol [Robaxin-750] 750 mg PO BID 04/28/19 10/27/19 History Folic Acid 1 mg PO DAILY #30 tab 05/02/19 10/27/19 Rx busPIRone HCl [Buspar] 10 mg PO TID #90 tab 05/02/19 10/27/19 Rx Albuterol Sulfate [Ventolin HFA] 1 - 2 puff INHALATION RT-Q6H PRN 08/09/19 10/27/19 History Nystatin 100,000 Unit/ml Susp 500,000 unit PO QID 09/04/19 10/27/19 History [Mycostatin Oral Susp] Amoxic-Pot Clav 875-125Mg 1 tab PO Q12HR 10 Days #20 tab 10/27/19 Rx [Augmentin 875-125] Diclofenac Sodium Gel [Voltaren 2 gm TOPICAL QID 10/27/19 10/27/19 History Gel] Polyethylene Glycol 3350 [Miralax] 17 gm PO DAILY #7 packet 10/27/19 Rx Allergies Allergy/AdvReac Type Severity Reaction Status Date / Time baclofen AdvReac URINARY Verified 09/04/19 15:55 ISSUES dexamethasone [From Decadron] AdvReac "THOMPSON Verified 09/04/19 15:55 SKIN"/DEHYDRATION Physical Exam Vitals: Vital Signs Temp Pulse Resp BP Pulse Ox 10/27/19 10:13 95 10/27/19 10:00 99.7 F H 144 H 20 114/87 76 L 10/27/19 06:11 98.3 F 99 19 114/77 94 L Intake and Output 10/26/19 10/27/19 10/27/19 22:59 06:59 14:59 Other: Weight 106.141 kg Results CBC & Chem 7: 10/27/19 06:28 10/27/19 06:28 Labs: Abnormal Lab Results - Last 24 Hours (Table) 10/27/19 10/27/19 10/27/19 Range/Units 06:28 06:28 06:28 WBC 12.2 H (3.8-10.6) k/uL Hct 47.1 H (34.0-46.0) % MCV 101.8 H (80.0-100.0) fL Neutrophils # 8.5 H (1.3-7.7) k/uL ABG pH (7.35-7.45) ABG pCO2 (35-45) mmHg ABG HCO3 (21-25) mmol/L ABG Total CO2 (19-24) mmol/L Sodium 135 L (137-145) mmol/L Potassium 3.2 L (3.5-5.1) mmol/L Chloride 94 L (98-107) mmol/L Carbon Dioxide 32 H (22-30) mmol/L Creatinine 0.44 L (0.52-1.04) mg/dL Glucose 156 H (74-99) mg/dL Plasma Lactic Acid Adalid 2.3 H* (0.7-2.0) mmol/L C-Reactive Protein (<10.0) mg/L Urine Appearance (Clear) Ur Leukocyte Esterase (Negative) Ur Squamous Epith Cells (0-4) /hpf Urine Bacteria (None) /hpf 10/27/19 10/27/19 10/27/19 Range/Units 07:24 10:32 11:59 WBC (3.8-10.6) k/uL Hct (34.0-46.0) % MCV (80.0-100.0) fL Neutrophils # (1.3-7.7) k/uL ABG pH 7.28 L (7.35-7.45) ABG pCO2 71 H* (35-45) mmHg ABG HCO3 33 H (21-25) mmol/L ABG Total CO2 35 H (19-24) mmol/L Sodium (137-145) mmol/L Potassium (3.5-5.1) mmol/L Chloride (98-107) mmol/L Carbon Dioxide (22-30) mmol/L Creatinine (0.52-1.04) mg/dL Glucose (74-99) mg/dL Plasma Lactic Acid Adalid (0.7-2.0) mmol/L C-Reactive Protein 61.2 H (<10.0) mg/L Urine Appearance Cloudy H (Clear) Ur Leukocyte Esterase Small H (Negative) Ur Squamous Epith Cells 8 H (0-4) /hpf Urine Bacteria Many H (None) /hpf
[2019-10-27] MEDS: polyethylene glycoL 3350 17 GM POWD.PACK PO SCH (14:35)
[2019-10-27] MEDS ORDERED: GABAPENTIN 400 MG CAP PO SCH (16:00)
--- NOTE | 2019-10-27 16:28 | P.CNPUL ---
History of Present Illness Consult date: 10/27/19 Reason for consult: other Chief complaint: Abdominal pain History of present illness: 54-year-old -[place] female patient of Dr. Tabares, who is well-known to our service for her history of COPD, and she follows with Dr. Rushing in the pulmonary clinic. Patient's medical history is significant for multiple sclero sis, hypertension, GERD/reflux, fibromyalgia, degenerative joint disease, chronic occipital neuralgia, optic neuritis, chronic tobacco dependence, chronic hypoxic respiratory failure on 2 L of oxygen, history of uterine cancer and previous hysterectomy. Patient presented to the emergency department on 10/27/2019 with complaints of left upper quadrant left lower quadrant left flank pain, patient described it as stabbing and aching, associated with nausea, constant in nature, with severe intensity. CT of the abdomen and pelvis without contrast was slightly suboptimal secondary to lack of anterior contrast, no suspicious small or large bowel dilation, there was prominence of fecal material in the right and proximal one half of the transverse colon, with some sigmoid colonic diverticula, without evidence of acute diverticulitis. No evidence of bowel obstruction. Chest x-ray showed cardiomegaly, coarsened interstitium could be on the basis of bronchitis or interstitial pneumonitis. Labs reviewed showing white blood cell count is 12.2, hemoglobin of 14.9, platelet count is 247, d-dimer was negative at 0.19, sodium is 135, potassium is 3.2, chloride is 94, CO2 32, BUN of 7, creatinine 0.44, plasma lactic acid was 2.3, BNP was within normal limits at 41, CRP was elevated to 61.2, LFTs are within normal limits, urinalysis was positive for small amount of leuks, many bacteria, but l ow WBCs. Low-grade fever a temp of 99.7F at present, she was started on a combination of azithromycin and Rocephin, she is on breathing treatments, and inhalers including DuoNeb and Symbicort. Patient has received some pain medication for her left abdominal left flank pain, she was then noted to be hypoxic with a pulse ox of 76% on room air, and tachycardic, blood gas was obtained and revealed pO2 of 87, pCO2 of 71, and pH of 7.28 consistent with acute on chronic hypercapnic respiratory failure possibly related to episode of hypoventilation. Currently recovered, awake and alert, she is back on 2 L of oxygen, she'll required brief BiPAP support. Review of Systems All systems: negative Constitutional: Denies chills, Denies fever Eyes: denies blurred vision, denies pain Ears, nose, mouth and throat: Denies headache, Denies sore throat Cardiovascular: Denies chest pain, Denies shortness of breath Respiratory: Denies cough Gastrointestinal: Reports abdominal pain, Denies diarrhea, Denies nausea, Denies vomiting Genitourinary: Denies dysuria, Denies hematuria Musculoskeletal: Denies myalgias Integumentary: Denies pruritus, Denies rash Neurological: Denies numbness, Denies weakness Psychiatric: Denies anxiety, Denies depression Endocrine: Denies fatigue, Denies weight change Past Medical History Past Medical History: Asthma, Cancer, COPD, Eye Disorder, Fibromyalgia, GERD/Reflux, Hearing Disorder / Deafness, Hypertension, Memory Impairment, Neurologic Disorder, Osteoarthritis (OA), Pneumonia, Syncope Additional Past Medical History / Comment(s): MS relapsing/remitting type, chronic bilateral eye pain/optic neuritis/ poor vision, cataracts bilaterally, chronic occipital neuralgia, osteoporosis, RLS, chronic hypoxic respiratory failure with home oxygen 2L/NC prn, chronic bronchitis, immunocompromised, elevated blood sugar with steroid use, uterine cancer with hystere ctomy/radiation, heart murmur, mild cognitive impairment, chronic vertigo, falls, rheumatic fever as child, tinnitis bilaterally, allergic rhinitis. History of Any Multi-Drug Resistant Organisms: None Reported Past Surgical History: Bladder Surgery, Heart Catheterization, Hysterectomy Additional Past Surgical History / Comment(s): Nerve blocks, bladder suspension. Past Anesthesia/Blood Transfusion Reactions: No Reported Reaction Additional Past Anesthesia/Blood Transfusion Reaction / Comment(s): mild clausterphobia Smoking Status: Current every day smoker - Past Family History Mother Family Medical History: CVA/TIA, Myocardial Infarction ([place]) Additional Family Medical History / Comment(s): Mother is alive at age 75 with history of brain aneurysm, 3 strokes and 2 myocardial infarctions. Brain aneurysms run on mother's side of family Father Additional Family Medical History / Comment(s): Father at age 72 from a cardiac arrest thought to be due to a myocardial infarction. Sister(s) Additional Family Medical History / Comment(s): Patient has 2 sisters with no major medical problems. Patient does not have any brothers. Patient has 2 adult children with no major medical problems. Patient is only family member with MS. Medications and Allergies Home Medications Medication Instructions Recorded Confirmed Type Aspirin 81 mg PO DAILY 02/20/14 10/27/19 History LORazepam [Ativan] 1 mg PO Q8H PRN 02/20/14 10/27/19 History Verapamil HCl [Calan] 120 mg PO DAILY 02/20/14 10/27/19 History Gabapentin [Neurontin] 1,200 mg PO TID 08/19/16 10/27/19 History Butalb/APAP/Caff 50-325-40Mg 1 tab PO Q8H PRN 03/25/17 10/27/19 History [Fioricet 50-325-40] oxyCODONE-APAP 10-325MG [Percocet 1 tab PO TID PRN 01/28/18 10/27/19 History 10-325 mg] rOPINIRole HCL [Requip] 0.25 mg PO TID #90 tab 01/31/18 10/27/19 Rx Budesonide/Formoterol Fumarate 2 puff INHALATION RT-BID 05/06/18 10/27/19 History [Symbicort 160-4.5 Mcg Inhaler] Cholecalciferol [Vitamin D3 (25 2,000 unit PO DAILY 05/07/18 10/27/19 History Mcg = 1000 Iu)] Multivitamins, Thera [Multivitamin 1 tab PO DAILY 05/07/18 10/27/19 History (formulary)] PARoxetine [Paxil] 40 mg PO DAILY tab 05/09/18 10/27/19 Rx Pantoprazole Sodium [Protonix] 40 mg PO BID 10/31/18 10/27/19 History Ipratropium-Albuterol Nebulize 3 ml INHALATION RT-QID PRN 11/22/18 10/27/19 History [Duoneb 0.5 mg-3 mg/3 ml Soln] Memantine [Namenda] 10 mg PO BID 11/22/18 10/27/19 History Montelukast [Singulair] 10 mg PO DAILY 11/22/18 10/27/19 History Hydrochlorothiazide [Hydrodiuril] 25 mg PO DAILY tab 11/26/18 10/27/19 Rx Nicotine 21Mg/24Hr Patch [Habitrol] 1 patch TRANSDERM DAILY #30 patch 11/26/18 10/27/19 Rx Fluticasone Nasal [place] [Flonase 2 spray EA NOSTRIL DAILY PRN 04/28/19 10/27/19 History Nasal [place]] Methocarbamol [Robaxin-750] 750 mg PO BID 04/28/19 10/27/19 History Folic Acid 1 mg PO DAILY #30 tab 05/02/19 10/27/19 Rx busPIRone HCl [Buspar] 10 mg PO TID #90 tab 05/02/19 10/27/19 Rx Albuterol Sulfate [Ventolin HFA] 1 - 2 puff INHALATION RT-Q6H PRN 08/09/19 10/27/19 History Nystatin 100,000 Unit/ml Susp 500,000 unit PO QID 09/04/19 10/27/19 History [Mycostatin Oral Susp] Amoxic-Pot Clav 875-125Mg 1 tab PO Q12HR 10 Days #20 tab 10/27/19 Rx [Augmentin 875-125] Diclofenac Sodium Gel [Voltaren 2 gm TOPICAL QID 10/27/19 10/27/19 History Gel] Polyethylene Glycol 3350 [Miralax] 17 gm PO DAILY #7 packet 10/27/19 Rx Allergies Allergy/AdvReac Type Severity Reaction Status Date / Time baclofen AdvReac URINARY Verified 09/04/19 15:55 ISSUES dexamethasone [From Decadron] AdvReac "THOMPSON Verified 09/04/19 15:55 SKIN"/DEHYDRATION Physical Exam Vitals: Vital Signs Temp Pulse Resp BP Pulse Ox 10/27/19 10:13 95 10/27/19 10:00 99.7 F H 144 H 20 114/87 76 L 10/27/19 06:11 98.3 F 99 19 114/77 94 L Intake and Output 10/27/19 10/27/19 10/27/19 06:59 14:59 22:59 Other: Weight 106.141 kg 106.141 kg GENERAL EXAM: Alert, very pleasant, 54-year-old -[place] female, currently on BiPAP with FiO2 of 30%, comfortable in no apparent distress. HEAD: Normocephalic/atraumatic. EYES: Normal reaction of pupils, equal size. Conjunctiva pink, sclera white. NOSE: Clear with pink turbinates. THROAT: No erythema or exudates. NECK: No masses, no JVD, no thyroid enlargement, no adenopathy. CHEST: No chest wall deformity. Symmetrical expansion. LUNGS: Equal air entry with no crackles, wheeze, rhonchi or dullness. CVS: Regular rate and rhythm, normal S1 and S2, no gallops, no murmurs, no rubs ABDOMEN: Soft, nontender. No hepatosplenomegaly, normal bowel sounds, no guarding or rigidity. EXTREMITIES: No clubbing, no edema, no cyanosis, 2+ pulses and upper and lower extremities. MUSCULOSKELETAL: Muscle strength and tone normal. SPINE: No scoliosis or deformity SKIN: No rashes CENTRAL NERVOUS SYSTEM: Alert and oriented -3. No focal deficits, tone is normal in all 4 extremities. PSYCHIATRIC: Alert and oriented -3. Appropriate affect. Intact judgment and insight. Results - Laboratory Findings CBC and BMP: 10/27/19 06:28 10/27/19 06:28 ABG ABG pH 7.28 (7.35-7.45) L 10/27/19 10:32 ABG pCO2 71 mmHg (35-45) H* 10/27/19 10:32 ABG pO2 87 mmHg (83-108) 10/27/19 10:32 ABG O2 Saturation 95.7 % (94-97) 10/27/19 10:32 PT/INR, D-dimer D-Dimer 0.19 mg/L FEU (<0.60) 10/27/19 11:59 Abnormal lab findings: Abnormal Labs 10/27/19 10/27/19 10/27/19 06:28 06:28 06:28 WBC 12.2 H Hct 47.1 H MCV 101.8 H Neutrophils # 8.5 H ABG pH ABG pCO2 ABG HCO3 ABG Total CO2 Sodium 135 L Potassium 3.2 L Chloride 94 L Carbon Dioxide 32 H Creatinine 0.44 L Glucose 156 H Plasma Lactic Acid Adalid 2.3 H* C-Reactive Protein Urine Appearance Ur Leukocyte Esterase Ur Squamous Epith Cells Urine Bacteria 10/27/19 10/27/19 10/27/19 07:24 10:32 11:59 WBC Hct MCV Neutrophils # ABG pH 7.28 L ABG pCO2 71 H* ABG HCO3 33 H ABG Total CO2 35 H Sodium Potassium Chloride Carbon Dioxide Creatinine Glucose Plasma Lactic Acid Adalid C-Reactive Protein 61.2 H Urine Appearance Cloudy H Ur Leukocyte Esterase Small H Ur Squamous Epith Cells 8 H Urine Bacteria Many H - Diagnostic Findings Chest x-ray: report reviewed, image reviewed Additional studies: CT of the abdomen and pelvis, EKG reviewed Assessment and Plan Plan: Assessment: #1. Left upper and left lower quadrant abdominal pain, left flank pain, CT of the abdomen and pelvis shows no bowel obstruction, mild to moderate colonic fecal stasis, no acute finding. Amylase lipase are negative #2. Acute on chronic hypoxic and hypercapnic respiratory failure related to hypoventilation, requiring brief BiPAP support, patient has recovered and is back on her 2 L of oxygen #3. Chronic multiple sclerosis of the relapsing remitting type, with history of multiple hospitalizations related to acute exacerbations, patient follows with Dr. Brito and receives Ocrevus infusions #4. History of chronic bronchial asthma, unspecified #5. Morbid obesity #6. Hypertension #7. History of smoking, and chronic tobacco dependence #8. Fibromyalgia #9. DJD #10. Rheumatic fever #11. Chronic occipital neuralgia #12. Optic neuritis #13. History of uterine cancer status post hysterectomy Plan: Chest x-ray has been reviewed, showing coarsened interstitium, however no clear evidence of pneumonia. Currently no difficulty breathing, no cough or congestion, patient has recovered, she'll required brief BiPAP support, episode of hypoxia and hypercapnia was likely related to pain medication related hypoventilation. We'll send a pro-calcitonin level. Smoking cessation has been recommended. Vital signs are stable. Continue Symbicort, DuoNeb nebulized treatments. We'll continue to follow I performed a history & physical examination of the patient and discussed their management with my nurse practitioner, Gay Hernandez. I reviewed the nurse practitioner's note and agree with the documented findings and plan of care. Lung sounds are positive for diminished breath sounds. The findings and the impression was discussed with the patient. I attest to the documentation by the nurse practitioner. Time with Patient: Greater than 30
[2019-10-27] MEDS: PANTOPRAZOLE 40 MG TABLET PO SCH (16:59)
[2019-10-27] MEDS: busPIRone HCl 10 MG TAB PO SCH ×2 (16:59→20:38)
[2019-10-27] MEDS: NYSTATIN 100,000 UNIT/ML SUSP 500,000 UNIT/5 ML CUP PO SCH ×2 (17:00→20:28)
[2019-10-27] MEDS: DICLOFENAC SODIUM GEL 100 GM TUBE TOPICAL SCH ×2 (17:00→22:10)
[2019-10-27] MEDS: LORazepam 1 MG TAB PO PRN (17:04)
[2019-10-27] MEDS: GABAPENTIN 600MG PO SCH ×2 (18:07→22:10)
[2019-10-27] MEDS: SYMBICORT 160-4.5 MCG INHALER INHALATION SCH (19:48)
[2019-10-27] MEDS: methocarbamoL 750 MG TAB PO SCH (20:28)
[2019-10-27] MEDS: HYDROmorphone 1 MG/ML 1 ML SYRINGE IVP PRN (20:28)
[2019-10-27] MEDS: MEMANTINE 10 MG TAB PO SCH (20:28)
[2019-10-27] MEDS: MELATONIN 5 MG TABLET PO SCH (20:28)
[2019-10-27] MEDS: oxyCODONE-APAP 10-325MG 1 EACH TAB PO PRN (22:18)
[2019-10-27] MEDS: BUTALB/APAP/CAFF 50-325-40MG TAB PO PRN (22:19)
[2019-10-28] MEDS ORDERED: NICOTINE 21MG/24HR PATCH TRANSDERM STA (00:19)
[2019-10-28] MEDS: PANTOPRAZOLE 40 MG TABLET PO SCH ×2 (06:25→16:49)
[2019-10-28] MEDS: HYDROmorphone 1 MG/ML 1 ML SYRINGE IVP PRN ×3 (06:26→19:14)
[2019-10-28] MEDS: IPRATROPIUM-ALBUTEROL 3 ML NEB INHALATION SCH ×4 (07:36→19:22)
[2019-10-28] MEDS: SYMBICORT 160-4.5 MCG INHALER INHALATION SCH ×2 (07:36→19:22)
[2019-10-28] MEDS ORDERED: AZITHROMYCIN 500 MG TAB PO SCH (09:00)
[2019-10-28] MEDS: PARoxetine 20 MG TAB PO SCH (09:31)
[2019-10-28] MEDS: oxyCODONE-APAP 10-325MG 1 EACH TAB PO PRN ×2 (09:32→16:49)
[2019-10-28] MEDS: MULTIVITAMINS, THERA 1 EACH TAB PO SCH (09:33)
[2019-10-28] MEDS: BUTALB/APAP/CAFF 50-325-40MG TAB PO PRN ×2 (09:33→16:47)
[2019-10-28] MEDS: VERAPAMIL 40 MG TAB PO SCH (09:33)
[2019-10-28] MEDS: MONTELUKAST 10 MG TAB PO SCH (09:33)
[2019-10-28] MEDS: CHOLECALCIFEROL 1,000 UNIT TAB PO SCH (09:33)
[2019-10-28] MEDS: LORazepam 1 MG TAB PO PRN ×2 (09:33→16:47)
[2019-10-28] MEDS: FOLIC ACID 1 MG TAB PO SCH (09:34)
[2019-10-28] MEDS: ASPIRIN 81 MG PO SCH (09:34)
[2019-10-28] MEDS: polyethylene glycoL 3350 17 GM POWD.PACK PO SCH (09:34)
[2019-10-28] MEDS: busPIRone HCl 10 MG TAB PO SCH ×3 (09:34→21:58)
[2019-10-28] MEDS: MEMANTINE 10 MG TAB PO SCH ×2 (09:34→21:57)
[2019-10-28] MEDS: NICOTINE 21MG/24HR PATCH TRANSDERM SCH (09:35)
[2019-10-28] MEDS: GABAPENTIN 600MG PO SCH ×3 (09:35→21:57)
[2019-10-28] MEDS: NYSTATIN 100,000 UNIT/ML SUSP 500,000 UNIT/5 ML CUP PO SCH ×4 (10:07→21:58)
[2019-10-28] MEDS: methocarbamoL 750 MG TAB PO SCH ×2 (10:07→21:58)
[2019-10-28] MEDS: DICLOFENAC SODIUM GEL 100 GM TUBE TOPICAL SCH ×4 (10:08→22:00)
--- NOTE | 2019-10-28 10:39 | XR ---
EXAMINATION TYPE: XR chest 2V DATE OF EXAM: 10/28/2019 COMPARISON: 10/27/2019 HISTORY: Shortness of breath TECHNIQUE: Frontal and lateral views of the chest are obtained. FINDINGS: Scattered senescent parenchymal changes noted. Hyperinflation compatible with COPD. No evidence for infiltrate. No evidence for atelectasis. Heart size is stable. Mediastinal structures are stable and grossly unremarkable. No evidence for hilar prominence. Degenerative changes dorsal spine. IMPRESSION: 1. No evidence for acute pulmonary disease.
--- NOTE | 2019-10-28 12:42 | P.PN ---
Subjective Progress Note Date: 10/28/19 This is a 53-year-old female patient of Dr. Tabares and Dr. Ramirez with a previous medical history significant for relapsing remitting multiple sclerosis, hypertension and hypertensive cardiovascular disease with left ventricular hypertrophy, history of GERD, multiple sclerosis, COPD, asthma, history of ost eoporosis, uterine cancer status post surgery, chronic hypoxic respiratory failure on home O2 at 2 L nasal cannula, tobacco use and dependence. Patient has had multiple admissions for acute exacerbation of MS. patient states that she was at Dr. Ramirez's office on Thursday of last week and underwent infusion for 6-1/2 hours. Since then she has had trouble with left lower quadrant discomfort. She states is very sharp and hurts as bad as having a baby. She denies any burning or pain with urination. No nausea or vomiting. She denies any fever or chills. She denies any significant weakness. She does complain of some right occipital discomfort. She came into [facility] emergency center for evaluation. She was afebrile, heart rate 99, blood pressure 114/77, pulse ox 94% on room air. Lab work reveals WBC 12.2, hemoglobin 14.9, platelet count 247. Sodium 135, potassium 3.2, chloride 94, CO2 32, BUN 7 and creatinine 0.44. Lactic acid 2.3. Liver function tests all within normal limits. Urinalysis cloudy, leukoesterase small, bacteria many. CAT scan of the abdomen and pelvis showed no bowel obstruction. Perhaps mild to moderate proximal colonic fecal stasis redemonstrated. No suspicious new or acute finding. The patient was prepared for discharge but then developed difficulty breathing and pulse ox dropped down to 76%. Patient was initially placed on BiPAP. ABGs revealed pH of 7.28, pCO2 71, P O2 87, bicarbonate 33, total CO2 35, O2 saturation 95.7 with FiO2 of 28. D-dimer was order that came back at 0.19. C reactive protein 61.2 and proBNP 41. Chest x-ray reveals cardiomegaly. Coarsened interstitium could be on the basis of bronchitis or interstitial pneumonitis. Patient to be admitted to the hospital and consult placed with Dr. Rushing. Coronavirus PCR testing in process. 10/27: Patient states that she was off BiPAP through the night and this morning. She is currently on 2 L nasal cannula pulse ox 96%. Patient continues to have left-sided abdominal pain more to the upper quadrant today. She was started on MiraLAX yesterday and she states she did have a bowel movement. Patient verbalizes that she feels she has lost sensation in the rectal area due to her MS. Repeat chest x-ray reveals no acute findings. Patient was evaluated by Dr. Rushing yesterday and he ordered a pro-calcitonin level. Continue same medications and smoking cessation. d-dimer 0.19. C-reactive protein 61.2, proBNP 41 pro-calcitonin 0.05.COVID-19 negative. Azithromycin and ceftriaxone will be discontinued. Review of Systems Constitutional: Denies chills, Reports fatigue, denies fever, denies lethargy, denies malaise Eyes: denies blurred vision, denies pain Ears, nose, mouth and throat: Denies dysphagia, Denies headache, Denies nasal congestion, Denies nasal discharge, Denies sore throat, Denies vertigo Cardiovascular: Denies dyspnea on exertion, Denies chest pain, Denies edema, Denies irregular heart beat, Denies leg edema, Denies lightheadedness, reports shortness of breath, Denies syncope Respiratory: Denies cough, denies cough with white sputum, denies dyspnea, Denies excessive sputum, Denies hemoptysis, reports home oxygen, Denies wheezing Gastrointestinal: Reports abdominal pain, Denies diarrhea, Denies loss of appetite, Denies nausea, Denies vomiting Genitourinary: Denies dysuria, Denies hematuria, Denies urgency, Denies urinary frequency Musculoskeletal: Reports gait dysfunction chronic, Reports muscle weakness, reports myalgias Integumentary: Denies pruritus, Denies rash, Denies wounds Neurological: Denies change in mentation, Denies change in speech, Denies numbness, Denies weakness Psychiatric: Denies anxiety, Denies depression Endocrine: Denies fatigue, Denies weight change Physical Examination Gen: This is a morbidly obese 54-year-old -[place] female. She is resting in bed, patient able to speak in full sentences. HEENT: Head is atraumatic, normocephalic. Pupils equal, round. Sclerae is anicteric. NECK: Supple. No JVD. No lymphadenopathy. No thyromegaly. LUNGS: Clear to auscultation. No wheezes or rhonchi. No intercostal retractions. HEART: Regular rate and rhythm. No murmur. ABDOMEN: Soft. Bowel sounds are present. No masses. Mild left-sided tenderness. EXTREMITIES: No pedal edema. No calf tenderness. NEUROLOGICAL: Patient is awake, alert and oriented x3. Cranial nerves 2 through 12 are grossly intact. Hand door frame assembler machine equal and strong bilaterally, foot push pull strong bilaterally. Assessment and Plan 1. Hypoxia and complaints of dyspnea. Patient's been placed on BiPAP. Repeat Chest x-ray shows no acute findings. Consult with Dr. Сергей infante. Discontinue ceftriaxone, azithromycin. Continue Symbicort twice daily, DuoNeb treatments 4 times daily and as needed. 2. Left lower quadrant pain, possible constipation. Continue MiraLAX. 3. History of relapsing remitting multiple sclerosis. 4. Chronic pain and occipital neuralgia under the care of Dr. Ramirez. Continue gabapentin 1200mg 3 times daily, Percocet one 3 times daily as needed, Fioricet as needed. 5. Hypertension and hypertensive cardiovascular disease. Hold hydrochlorothiazide 25 mg daily, verapamil 120 mg orally once every day--for hypotension. 6. Obesity with possible obstructive sleep apnea and obesity hypoventilation syndrome. BiPAP. 7. Mild intermittent asthma and COPD. Continue albuterol inhaler every 6 hours as needed, Symbicort twice daily, Singulair 10 mg daily, Flonase as needed. 8. Fibromyalgia. Continue gabapentin 1200 mg orally 3 times every day. 8. Generalized anxiety disorder. Continue Ativan 1 mg every 8 hours as needed. 9. Recurrent depression. Continue Paxil 40 mg daily. 10. Chronic tobacco use and dependence. Smoking cessation and counseling an increased risk of CAD, CVA, and malignancy. Continue nicotine patch 21 mg once every day. 11. Mild cognitive impairment. Continue patient on Namenda 10 mg orally twice every day. 13. Restless leg syndrome. Continue Requip 0.25 mg 2 times daily 14. DVT prophylaxis. Lovenox 40 mg subcutaneously every 24 hours. 15. GERD and GI prophylaxis. Continue with Protonix 40 mg orally twice every day. 16. COVID-19 infection not present. CODE STATUS: Full code Discharge plan: Home with [facility] Impression and plan of care have been directed as dictated by the signing physician. Elaine Nguyen nurse practitioner acting as scribe for signing physician. Objective - Vital Signs Vital signs: Vital Signs Temp 97.5 F L 10/28/19 04:00 Pulse 82 10/28/19 07:50 Resp 18 10/28/19 04:00 BP 117/76 10/28/19 04:00 Pulse Ox 97 10/28/19 04:00 Intake & Output 10/27/19 10/28/19 10/28/19 18:59 06:59 18:59 Intake Total 622 240 Balance 622 240 Weight 106.141 kg 108.4 kg Intake: Oral 622 240 Other: Voiding Method Toilet # Voids 1 - Labs CBC & Chem 7: 10/27/19 06:28 10/27/19 06:28 Labs: Abnormal Lab Results - Last 24 Hours (Table) 10/27/19 10/27/19 Range/Units 10:32 11:59 ABG pH 7.28 L (7.35-7.45) ABG pCO2 71 H* (35-45) mmHg ABG HCO3 33 H (21-25) mmol/L ABG Total CO2 35 H (19-24) mmol/L C-Reactive Protein 61.2 H (<10.0) mg/L
--- NOTE | 2019-10-28 13:24 | P.PN ---
Subjective Progress Note Date: 10/28/19 Principal diagnosis: Abdominal pain, constipation 54-year-old -English female patient of Dr. Tabares, who is well-known to our service for her history of COPD, and she follows with Dr. Rushing in the pulmonary clinic. Patient's medical history is significant for multiple sclerosis, hypertension, GERD/reflux, fibromyalgia, degenerative joint disease, chronic occipital neuralgia, optic neuritis, chronic tobacco dependence, chronic hypoxic respiratory failure on 2 L of oxygen, history of uterine cancer and previous hysterectomy. Patient presented to the emergency department on 10/27/2019 with complaints of left upper quadrant left lower quadrant left flank pain, patient described it as stabbing and aching, associated with nausea, constant in nature, with severe intensity. CT of the abdomen and pelvis without contrast was slightly suboptimal secondary to lack of anterior contrast, no suspicious small or large bowel dilation, there was prominence of fecal material in the right and proximal one half of the transverse colon, with some sigmoid colonic diverticula, without evidence of acute diverticulitis. No evidence of bowel obstruction. Chest x-ray showed cardiomegaly, coarsened interstitium could be on the basis of bronchitis or interstitial pneumonitis. Labs reviewed showing white blood cell count is 12.2, hemoglobin of 14.9, platelet count is 247, d-dimer was negative at 0.19, sodium is 135, potassium is 3.2, chloride is 94, CO2 32, BUN of 7, creatinine 0.44, plasma lactic acid was 2.3, BNP was within normal limits at 41, CRP was elevated to 61.2, LFTs are within normal limits, urinalysis was positive for small amount of leuks, many bacteria, but low WBCs. Low-grade fever a temp of 99.7F at present, she was started on a combination of azithromycin and Rocephin, she is on breathing treatments, and inhalers including DuoNeb and Symbicort. Patient has received some pain medication for her left abdominal left flank pain, she was then noted to be hypoxic with a pulse ox of 76% on room air, and tachycardic, blood gas was obtained and revealed pO2 of 87, pCO2 of 71, and pH of 7.28 consistent with acute on chronic hypercapnic respiratory failure possibly related to episode of hypoventilation. Currently recovered, awake and alert, she is back on 2 L of oxygen, she'll required brief BiPAP support. The patient is seen today 10/28/2019 in follow-up on the selective care unit. She is awake and alert in no acute distress. Up ambulating in her room. No worsening shortness of breath, cough or congestion. Maintaining O2 saturations in the 90s on 2 L/m per nasal cannula. Chest x-ray reveals no acute pulmonary process She's been afebrile. Still with some abdominal discomfort. Currently drink and MiraLAX. Objective - Vital Signs Vital signs: Vital Signs Temp 97.7 F 10/28/19 08:00 Pulse 84 10/28/19 12:07 Resp 20 10/28/19 08:00 BP 111/67 10/28/19 08:00 Pulse Ox 96 10/28/19 08:00 Intake & Output 10/27/19 10/28/19 10/28/19 18:59 06:59 18:59 Intake Total 622 240 Balance 622 240 Weight 106.141 kg 108.4 kg Intake: Oral 622 240 Other: Voiding Method Toilet Toilet # Voids 1 2 - Exam GENERAL EXAM: Alert, very pleasant, 54-year-old -English female, curre ntly on 2 L/m per nasal cannula, comfortable in no apparent distress. HEAD: Normocephalic/atraumatic. EYES: Normal reaction of pupils, equal size. Conjunctiva pink, sclera white. NOSE: Clear with pink turbinates. THROAT: No erythema or exudates. NECK: No masses, no JVD, no thyroid enlargement, no adenopathy. CHEST: No chest wall deformity. Symmetrical expansion. LUNGS: Equal air entry with no crackles, wheeze, rhonchi or dullness. CVS: Regular rate and rhythm, normal S1 and S2, no gallops, no murmurs, no rubs ABDOMEN: Soft, nontender. No hepatosplenomegaly, normal bowel sounds, no guarding or rigidity. EXTREMITIES: No clubbing, no edema, no cyanosis, 2+ pulses and upper and lower extremities. MUSCULOSKELETAL: Muscle strength and tone normal. SPINE: No scoliosis or deformity SKIN: No rashes CENTRAL NERVOUS SYSTEM: No focal deficits, tone is normal in all 4 extremities. PSYCHIATRIC: Alert and oriented -3. Appropriate affect. Intact judgment and insight. - Labs CBC & Chem 7: 10/27/19 06:28 06/25/20 06:28 Assessment and Plan Assessment: #1. Left upper and left lower quadrant abdominal pain, left flank pain, CT of the abdomen and pelvis shows no bowel obstruction, mild to moderate colonic f ecal stasis, no acute finding. Amylase lipase are negative #2. Acute on chronic hypoxic and hypercapnic respiratory failure related to hypoventilation, requiring brief BiPAP support, patient has recovered and is back on her 2 L of oxygen #3. Chronic multiple sclerosis of the relapsing remitting type, with history of multiple hospitalizations related to acute exacerbations, patient follows with Dr. Brito and receives Ocrevus infusions #4. History of chronic bronchial asthma, unspecified #5. Morbid obesity #6. Hypertension #7. History of smoking, and chronic tobacco dependence #8. Fibromyalgia #9. DJD #10. Rheumatic fever #11. Chronic occipital neuralgia #12. Optic neuritis #13. History of uterine cancer status post hysterectomy Plan: The patient was seen and evaluated by Dr. Rushing She is stable from the pulmonary standpoint Continue the current treatment plan Again educated regarding the importance of complete smoking cessation NicoDerm patch in place Some abdominal discomfort secondary to constipation Remains on MiraLAX Probable discharge in a.m. I, the cosigning physician, performed a history & physical examination of the patient. Lungs sounds are clear. Maintaining good O2 saturations in the 90s on 2 L/m per nasal cannula. I discussed the assessment and plan of care with my nurse practitioner, Cydney Henning. I attest to the above note as dictated by her.
[2019-10-28] MEDS: MELATONIN 5 MG TABLET PO SCH (21:57)
[2019-10-28] MEDS ORDERED: GABAPENTIN 600MG PO SCH (22:00)
[2019-10-29] MEDS: LORazepam 1 MG TAB PO PRN ×3 (00:06→17:37)
[2019-10-29] MEDS: BUTALB/APAP/CAFF 50-325-40MG TAB PO PRN ×3 (00:06→17:37)
[2019-10-29] MEDS: oxyCODONE-APAP 10-325MG 1 EACH TAB PO PRN ×3 (00:07→17:41)
[2019-10-29] MEDS: DICLOFENAC SODIUM GEL 100 GM TUBE TOPICAL SCH ×5 (00:54→20:49)
[2019-10-29] MEDS: HYDROmorphone 1 MG/ML 1 ML SYRINGE IVP PRN ×3 (02:49→19:06)
[2019-10-29] MEDS: PANTOPRAZOLE 40 MG TABLET PO SCH ×2 (06:27→17:37)
[2019-10-29] MEDS: IPRATROPIUM-ALBUTEROL 3 ML NEB INHALATION SCH ×4 (07:55→20:18)
[2019-10-29] MEDS: SYMBICORT 160-4.5 MCG INHALER INHALATION SCH ×2 (07:55→20:18)
[2019-10-29] MEDS ORDERED: DOCUSATE 100 MG CAP PO SCH (09:00)
[2019-10-29] MEDS: polyethylene glycoL 3350 17 GM POWD.PACK PO SCH (09:14)
[2019-10-29] MEDS: NICOTINE 21MG/24HR PATCH TRANSDERM SCH (09:15)
[2019-10-29] MEDS: VERAPAMIL 40 MG TAB PO SCH (09:16)
[2019-10-29] MEDS: MONTELUKAST 10 MG TAB PO SCH (09:17)
[2019-10-29] MEDS: FOLIC ACID 1 MG TAB PO SCH (09:17)
[2019-10-29] MEDS: busPIRone HCl 10 MG TAB PO SCH ×3 (09:17→20:48)
[2019-10-29] MEDS: MEMANTINE 10 MG TAB PO SCH ×2 (09:17→20:47)
[2019-10-29] MEDS: PARoxetine 20 MG TAB PO SCH (09:18)
[2019-10-29] MEDS: MULTIVITAMINS, THERA 1 EACH TAB PO SCH (09:20)
[2019-10-29] MEDS: ASPIRIN 81 MG PO SCH (09:20)
[2019-10-29] MEDS: methocarbamoL 750 MG TAB PO SCH ×2 (09:21→20:47)
[2019-10-29] MEDS: NYSTATIN 100,000 UNIT/ML SUSP 500,000 UNIT/5 ML CUP PO SCH ×4 (09:21→20:48)
[2019-10-29] MEDS: GABAPENTIN 600MG PO SCH ×3 (09:26→20:49)
[2019-10-29] MEDS: CHOLECALCIFEROL 1,000 UNIT TAB PO SCH (09:37)
--- NOTE | 2019-10-29 10:49 | US ---
EXAMINATION TYPE: US groin LT DATE OF EXAM: 10/29/2019 COMPARISON: NONE CLINICAL HISTORY: Pain and swelling. Pain left groin Scanned within area of concern, left groin, no evidence of abnormality by ultrasound at this time. IMPRESSION: NORMAL LEFT GROIN ULTRASOUND.
[2019-10-29] MEDS: FUROSEMIDE 10 MG/ML 2 ML VIAL IV SCH ×2 (13:04→20:47)
--- NOTE | 2019-10-29 13:07 | US ---
EXAMINATION TYPE: US venous doppler duplex LE DATE OF EXAM: 10/29/2019 11:13 AM COMPARISON: NONE CLINICAL HISTORY: swelling and pain. Pain bilateral legs, worse on the left SIDE PERFORMED: bilateral TECHNIQUE: The lower extremity deep venous system is examined utilizing real time linear array sonog beth with graded compression, doppler sonography and color-flow sonography. VESSELS IMAGED: External Iliac Vein (EIV) Common Femoral Vein Deep Femoral Vein Greater Saphenous Vein * Femoral Vein Popliteal Vein Small Saphenous Vein * Proximal Calf Veins (* superficial vessels) Right Leg: No evidence of DVT Left Leg: No evidence of DVT, patient unable to tolerate compressions No popliteal fossa lesion is seen. IMPRESSION: LIMITED EXAMINATION SHOWING NO DEFINITE EVIDENCE OF DVT IN EITHER LEG.
--- NOTE | 2019-10-29 13:18 | P.PN ---
Subjective Progress Note Date: 10/29/19 Principal diagnosis: Abdominal pain, constipation 54-year-old -[place]ian female patient of Dr. Tabares, who is well-known to our service for her history of COPD, and she follows with Dr. Rushing in the pulmonary clinic. Patient's medical history is significant for multiple sclerosis, hypertension, GERD/reflux, fibromyalgia, degenerative joint disease, chronic occipital neuralgia, optic neuritis, chronic tobacco dependence, chronic hypoxic respiratory failure on 2 L of oxygen, history of uterine cancer and previous hysterectomy. Patient presented to the emergency department on 10/27/2019 with complaints of left upper quadrant left lower quadrant left flank pain, patient described it as stabbing and aching, associated with nausea, constant in nature, with severe intensity. CT of the abdomen and pelvis without contrast was slightly suboptimal secondary to lack of anterior contrast, no suspicious small or large bowel dilation, there was prominence of fecal material in the right and proximal one half of the transverse colon, with some sigmoid colonic diverticula, without evidence of acute diverticulitis. No evidence of bowel obstruction. Chest x-ray showed cardiomegaly, coarsened interstitium could be on the basis of bronchitis or interstitial pneumonitis. Labs reviewed showing white blood cell count is 12.2, hemoglobin of 14.9, platelet count is 247, d-dimer was negative at 0.19, sodium is 135, potassium is 3.2, chloride is 94, CO2 32, BUN of 7, creatinine 0.44, plasma lactic acid was 2.3, BNP was within normal limits at 41, CRP was elevated to 61.2, LFTs are within normal limits, urinalysis was positive for small amount of leuks, many bacteria, but low WBCs. Low-grade fever a temp of 99.7F at present, she was started on a combination of azithromycin and Rocephin, she is on breathing treatments, and inhalers including DuoNeb and Symbicort. Patient has received some pain medication for her left abdominal left flank pain, she was then noted to be hypoxic with a pulse ox of 76% on room air, and tachycardic, blood gas was obtained and revealed pO2 of 87, pCO2 of 71, and pH of 7.28 consistent with acute on chronic hypercapnic respiratory failure possibly related to episode of hypoventilation. Currently recovered, awake and alert, she is back on 2 L of oxygen, she'll required brief BiPAP support. The patient is seen today 10/28/2019 in follow-up on the selective care unit. She is awake and alert in no acute distress. Up ambulating in her room. No worsening shortness of breath, cough or congestion. Maintaining O2 saturations in the 90s on 2 L/m per nasal cannula. Chest x-ray reveals no acute pulmonary process She's been afebrile. Still with some abdominal discomfort. Currently drink and MiraLAX. The patient is seen today 10/29/2019 follow-up on the selective care unit. She is currently resting comfortably in bed. Awake and alert in no acute distress. She is maintaining O2 saturations in the 90s on 2 L/m per nasal cannula. She is continued on DuoNeb inhalations, Symbicort. She's been afebrile. She is compl aining of pain and swelling in the left groin. Ultrasound was negative for abnormalities. Doppler of the bilateral lower extremities were negative for DVT. Blood cultures reveal no growth. She was initiated on IV diuretics. Objective - Vital Signs Vital signs: Vital Signs Temp 98.3 F 10/29/19 04:00 Pulse 80 10/29/19 12:10 Resp 18 10/29/19 04:00 BP 116/67 10/29/19 04:00 Pulse Ox 96 10/29/19 04:00 Intake & Output 10/28/19 10/29/19 10/29/19 18:59 06:59 18:59 Intake Total 240 90 Balance 240 90 Weight 106 kg Intake: Oral 240 90 Other: Voiding Method Toilet Toilet # Voids 2 1 2 - Exam GENERAL EXAM: Alert, very pleasant, morbidly obese, 54-year-old -[place] female, currently on 2 L/m per nasal cannula, complaining of left groin pain, ultrasound was negative for any abnormalities, Dopplers of the bilateral lower extremities were negative for DVT HEAD: Normocephalic/atraumatic. EYES: Normal reaction of pupils, equal size. Conjunctiva pink, sclera white. NOSE: Clear with pink turbinates. THROAT: No erythema or exudates. NECK: No masses, no JVD, no thyroid enlargement, no adenopathy. CHEST: No chest wall deformity. Symmetrical expansion. LUNGS: Equal air entry with no crackles, wheeze, rhonchi or dullness. CVS: Regular rate and rhythm, normal S1 and S2, no gallops, no murmurs, no rubs ABDOMEN: Soft, nontender. No hepatosplenomegaly, normal bowel sounds, no guarding or rigidity. EXTREMITIES: No clubbing, no edema, no cyanosis, 2+ pulses and upper and lower extremities. MUSCULOSKELETAL: Muscle strength and tone normal. SPINE: No scoliosis or deformity SKIN: No rashes, some edema the lower extremities CENTRAL NERVOUS SYSTEM: No focal deficits, tone is normal in all 4 extremities. PSYCHIATRIC: Alert and oriented -3. Appropriate affect. Intact judgment and insight. - Labs CBC & Chem 7: 10/27/19 06:28 10/27/19 06:28 Labs: Microbiology - Last 24 Hours (Table) 10/27/19 11:59 Blood Culture - Preliminary Blood No Growth after 24 hours Assessment and Plan Assessment: #1. Left upper and left lower quadrant abdominal pain, left flank pain, CT of the abdomen and pelvis shows no bowel obstruction, mild to moderate colonic fecal stasis, no acute finding. Amylase lipase are negative #2. Acute on chronic hypoxic and hypercapnic respiratory failure related to hypoventilation, requiring brief BiPAP support, patient has recovered and is back on her 2 L of oxygen #3. Chronic multiple sclerosis of the relapsing remitting type, with history of multiple hospitalizations related to acute exacerbations, patient follows with Dr. Brito and receives Ocrevus infusions #4. History of chronic bronchial asthma, unspecified #5. Morbid obesity #6. Hypertension #7. History of smoking, and chronic tobacco dependence #8. Fibromyalgia #9. DJD #10. Rheumatic fever #11. Chronic occipital neuralgia #12. Optic neuritis #13. History of uterine cancer status post hysterectomy #14. Left groin and lower extremity pain and edema. Ultrasound negative. Dopplers of lower extremity negative for DVT. Plan: The patient was seen and evaluated by Dr. Rushing She is stable from the pulmonary standpoint Continue the current treatment plan Again educated regarding the importance of complete smoking cessation NicoDerm patch in place I, the cosigning physician, performed a history & physical examination of the patient. Lungs sounds are clear. Maintaining good O2 saturations in the 90s on 2 L/m per nasal cannula. I discussed the assessment and plan of care with my nurse practitioner, Cydney Henning. I attest to the above note as dictated by her.
[2019-10-29] MEDS ORDERED: bisacodyL 5 MG TABLET.DR PO STA (15:19)
--- NOTE | 2019-10-29 15:19 | P.PN ---
Subjective Progress Note Date: 10/29/19 This is a 53-year-old female patient of Dr. Tabares and Dr. Ramirez with a previous medical history significant for relapsing remitting multiple sclerosis, hypertension and hypertensive cardiovascular disease with left ventricular hypertrophy, history of GERD, multiple sclerosis, COPD, asthma, history of ost eoporosis, uterine cancer status post surgery, chronic hypoxic respiratory failure on home O2 at 2 L nasal cannula, tobacco use and dependence. Patient has had multiple admissions for acute exacerbation of MS. patient states that she was at Dr. Ramirez's office on Thursday of last week and underwent infusion for 6-1/2 hours. Since then she has had trouble with left lower quadrant discomfort. She states is very sharp and hurts as bad as having a baby. She denies any burning or pain with urination. No nausea or vomiting. She denies any fever or chills. She denies any significant weakness. She does complain of some right occipital discomfort. She came into [facility] emergency center for evaluation. She was afebrile, heart rate 99, blood pressure 114/77, pulse ox 94% on room air. Lab work reveals WBC 12.2, hemoglobin 14.9, platelet count 247. Sodium 135, potassium 3.2, chloride 94, CO2 32, BUN 7 and creatinine 0.44. Lactic acid 2.3. Liver function tests all within normal limits. Urinalysis cloudy, leukoesterase small, bacteria many. CAT scan of the abdomen and pelvis showed no bowel obstruction. Perhaps mild to moderate proximal colonic fecal stasis redemonstrated. No suspicious new or acute finding. The patient was prepared for discharge but then developed difficulty breathing and pulse ox dropped down to 76%. Patient was initially placed on BiPAP. ABGs revealed pH of 7.28, pCO2 71, P O2 87, bicarbonate 33, total CO2 35, O2 saturation 95.7 with FiO2 of 28. D-dimer was order that came back at 0.19. C reactive protein 61.2 and proBNP 41. Chest x-ray reveals cardiomegaly. Coarsened interstitium could be on the basis of bronchitis or interstitial pneumonitis. Patient to be admitted to the hospital and consult placed with Dr. Rushing. Coronavirus PCR testing in process. 10/27: Patient states that she was off BiPAP through the night and this morning. She is currently on 2 L nasal cannula pulse ox 96%. Patient continues to have left-sided abdominal pain more to the upper quadrant today. She was started on MiraLAX yesterday and she states she did have a bowel movement. Patient verbalizes that she feels she has lost sensation in the rectal area due to her MS. Repeat chest x-ray reveals no acute findings. Patient was evaluated by Dr. Rushing yesterday and he ordered a pro-calcitonin level. Continue same medications and smoking cessation. d-dimer 0.19. C-reactive protein 61.2, proBNP 41 pro-calcitonin 0.05.COVID-19 negative. Azithromycin and ceftriaxone will be discontinued. 10/28 patient complaining of left upper and left mid abdominal pain radiating to the back, still no bowel movements, despite laxatives, she had 2 small ones, patient has no nausea, no hematuria, no dysuria, CAT scan again reviewed abdomen and pelvis, showing fecal prominence in the right side of the colon and one half of the transverse colon, sigmoid diverticula, without evidence of diverticulitis, patient has 5 x 4 mm right lower lobe nodule, present from 09/04/2019, fatty liver, 2.0 cm left hepatic cyst, have lower lying cecum, no bowel obstruction, no lymphadenopathy patient complaining also of a left groin pain, venous Doppler to evaluate for DVT is negative, it patient would received a laxative today, MiraLAX 1 dose, no response to MiraLAX, Dulcolax 10 mg 1 dose and Jessy-Colace in a.m. and replace Colace. Patient might need Amitiza, secondary to neurogenic colon, from MS Review of Systems Constitutional: Denies chills, Reports fatigue, denies fever, denies lethargy, denies malaise Eyes: denies blurred vision, denies pain Ears, nose, mouth and throat: Denies dysphagia, Denies headache, Denies nasal congestion, Denies nasal discharge, Denies sore throat, Denies vertigo Cardiovascular: Denies dyspnea on exertion, Denies chest pain, Denies edema, Denies irregular heart beat, Denies leg edema, Denies lightheadedness, reports shortness of breath, Denies syncope Respiratory: Denies cough, denies cough with white sputum, denies dyspnea, Denies excessive sputum, Denies hemoptysis, reports home oxygen, Denies wheezing Gastrointestinal: Reports abdominal pain, Denies diarrhea, Denies loss of appetite, Denies nausea, Denies vomiting Genitourinary: Denies dysuria, Denies hematuria, Denies urgency, Denies urinary frequency Musculoskeletal: Reports gait dysfunction chronic, Reports muscle weakness, reports myalgias Integumentary: Denies pruritus, Denies rash, Denies wounds Neurological: Denies change in mentation, Denies change in speech, Denies numbness, Denies weakness Psychiatric: Denies anxiety, Denies depression Endocrine: Denies fatigue, Denies weight change Objective - Vital Signs Vital signs: Vital Signs Temp 98.2 F 10/29/19 08:00 Pulse 80 10/29/19 12:10 Resp 18 10/29/19 12:00 BP 113/65 10/29/19 12:00 Pulse Ox 100 10/29/19 12:00 Intake & Output 10/28/19 10/29/19 10/29/19 18:59 06:59 18:59 Intake Total 240 210 Balance 240 210 Weight 106 kg Intake: Oral 240 210 Other: Voiding Method Toilet Toilet Toilet # Voids 2 1 2 - Constitutional General appearance: Present: cooperative, morbidly obese, no acute distress - EENT Eyes: Present: EOMI, PERRLA, dentition normal, normal appearance ENT: Present: NA/AT, normal oropharynx - Neck Neck: Present: normal ROM - Respiratory Respiratory: bilateral: CTA, negative: diminished, dullness, rales - Cardiovascular Rhythm: regular Heart sounds: normal: S1, S2 Abnormal Heart Sounds: Absent: systolic murmur, diastolic murmur, rub, S3 Gallop, S4 Gallop, click, other - Gastrointestinal General gastrointestinal: Present: normal bowel sounds, soft - Integumentary Integumentary: Present: normal, normal turgor - Musculoskeletal Musculoskeletal: Present: gait normal, strength equal bilaterally - Psychiatric Psychiatric: Present: A&O x's 3, appropriate affect - Labs CBC & Chem 7: 10/27/19 06:28 10/27/19 06:28 Labs: Microbiology - Last 24 Hours (Table) 10/27/19 11:59 Blood Culture - Preliminary Blood No Growth after 48 hours Assessment and Plan Plan: Assessment and Plan 1. Hypoxia and complaints of dyspnea. Patient's been placed on BiPAP. Repeat Chest x-ray shows no acute findings. Consult with Dr. Сергей infante. Discontinue ceftriaxone, azithromycin. Continue Symbicort twice daily, DuoNeb treatments 4 times daily and as needed. 2. Left lower quadrant pain, constipation, neurogenic colon from ms failed multiple laxatives, dulcolax x 1 dose on 10/28. Continue MiraLAX daily. pericolace, amitiza if available 3. History of relapsing remitting multiple sclerosis. 4. Chronic pain and occipital neuralgia under the care of Dr. Ramirez. Continue gabapentin 1200mg 3 times daily, Percocet one 3 times daily as needed, Fioricet as needed. 5. Hypertension and hypertensive cardiovascular disease. Hold hydrochlorothiazide 25 mg daily, verapamil 120 mg orally once every day--for hypotension. 6. Obesity with possible obstructive sleep apnea and obesity hypoventilation syndrome. BiPAP. 7. Mild intermittent asthma and COPD. Continue albuterol inhaler every 6 hours as needed, Symbicort twice daily, Singulair 10 mg daily, Flonase as needed. 8. Fibromyalgia. Continue gabapentin 1200 mg orally 3 times every day. 8. Generalized anxiety disorder. Continue Ativan 1 mg every 8 hours as needed. 9. Recurrent depression. Continue Paxil 40 mg daily. 10. Chronic tobacco use and dependence. Smoking cessation and counseling an increased risk of CAD, CVA, and malignancy. Continue nicotine patch 21 mg once every day. 11. Mild cognitive impairment. Continue patient on Namenda 10 mg orally twice every day. 13. Restless leg syndrome. Continue Requip 0.25 mg 2 times daily 14. DVT prophylaxis. Lovenox 40 mg subcutaneously every 24 hours. 15. GERD and GI prophylaxis. Continue with Protonix 40 mg orally twice every day. 16. COVID-19 infection not present. 17. left Groin pain, negative for pathology, could be related to spasms from MS, negative for DVT patient has Robaxin and gabapentin CODE STATUS: Full code Discharge plan: Home with [facility]
[2019-10-29] MEDS: HEPARIN SODIUM,PORCINE 5,000 UNIT/ML 1 ML VIAL SQ SCH (16:14)
[2019-10-29] MEDS: MELATONIN 5 MG TABLET PO SCH (20:47)
[2019-10-29] MEDS: SENNOSIDES-DOCUSATE SODIUM 1 EACH TAB PO SCH (20:47)
[2019-10-30] MEDS: HEPARIN SODIUM,PORCINE 5,000 UNIT/ML 1 ML VIAL SQ SCH ×3 (00:13→16:47)
[2019-10-30] MEDS: LORazepam 1 MG TAB PO PRN ×3 (00:14→16:48)
[2019-10-30] MEDS: BUTALB/APAP/CAFF 50-325-40MG TAB PO PRN ×3 (00:14→16:47)
[2019-10-30] MEDS: oxyCODONE-APAP 10-325MG 1 EACH TAB PO PRN ×3 (00:15→16:48)
[2019-10-30] MEDS: HYDROmorphone 1 MG/ML 1 ML SYRINGE IVP PRN ×3 (02:00→16:49)
[2019-10-30] MEDS: PANTOPRAZOLE 40 MG TABLET PO SCH ×2 (06:23→16:46)
--- NOTE | 2019-10-30 08:18 | XR ---
EXAMINATION TYPE: XR abdomen 2V , 4 VIEWS DATE OF EXAM ORDERED: 10/30/2019 HISTORY: constipation, abdominal pain. COMPARISON: Previous study dated 04/07/2011. FINDINGS: The lung bases are clear. Within the abdomen, the abdominal gas pattern is normal. There is no evidence of obstruction or free air. No unusual calcifications are seen. IMPRESSION: NO ACUTE INTRA-ABDOMINAL ABNORMALITY.
[2019-10-30] MEDS: polyethylene glycoL 3350 17 GM POWD.PACK PO SCH (08:30)
[2019-10-30] MEDS: NICOTINE 21MG/24HR PATCH TRANSDERM SCH (08:32)
[2019-10-30] MEDS: MONTELUKAST 10 MG TAB PO SCH (08:33)
[2019-10-30] MEDS: NYSTATIN 100,000 UNIT/ML SUSP 500,000 UNIT/5 ML CUP PO SCH ×4 (08:33→21:01)
[2019-10-30] MEDS: CHOLECALCIFEROL 1,000 UNIT TAB PO SCH (08:34)
[2019-10-30] MEDS: VERAPAMIL 40 MG TAB PO SCH (08:34)
[2019-10-30] MEDS: SENNOSIDES-DOCUSATE SODIUM 1 EACH TAB PO SCH ×2 (08:34→21:01)
[2019-10-30] MEDS: MULTIVITAMINS, THERA 1 EACH TAB PO SCH (08:36)
[2019-10-30] MEDS: PARoxetine 20 MG TAB PO SCH (08:36)
[2019-10-30] MEDS: FOLIC ACID 1 MG TAB PO SCH (08:37)
[2019-10-30] MEDS: MEMANTINE 10 MG TAB PO SCH ×2 (08:37→21:00)
[2019-10-30] MEDS: busPIRone HCl 10 MG TAB PO SCH ×3 (08:37→21:01)
[2019-10-30] MEDS: methocarbamoL 750 MG TAB PO SCH ×2 (08:38→21:00)
[2019-10-30] MEDS: FUROSEMIDE 10 MG/ML 2 ML VIAL IV SCH ×2 (08:43→21:00)
[2019-10-30] MEDS: DICLOFENAC SODIUM GEL 100 GM TUBE TOPICAL SCH ×3 (08:59→16:52)
[2019-10-30] MEDS: SYMBICORT 160-4.5 MCG INHALER INHALATION SCH ×2 (09:00→20:46)
[2019-10-30] MEDS: IPRATROPIUM-ALBUTEROL 3 ML NEB INHALATION SCH ×4 (09:00→20:46)
[2019-10-30] MEDS: GABAPENTIN 600MG PO SCH ×3 (09:12→21:01)
[2019-10-30] MEDS: ASPIRIN 81 MG PO SCH (09:19)
--- NOTE | 2019-10-30 10:18 | XR ---
EXAMINATION TYPE: XR Hip Bilateral and AP pelvis , 5 VIEWS DATE OF EXAM ORDERED: 10/30/2019 HISTORY: pelvic pain, hip pain. COMPARISON: Previous x-ray of the pelvis dated 07/29/2019. FINDINGS: There are mild degenerative changes present in both hips. Osseous structures about the pel vis are otherwise unremarkable. There are degenerative changes in the lower lumbar spine. There are mild degenerative changes in both hips, greater on the left than the right. No fracture or dislocation is seen. IMPRESSION: 1. NO ACUTE OSSEOUS LESION. 2. DEGENERATIVE CHANGES IN THE LUMBAR SPINE. 3. DEGENERATIVE CHANGES IN THE HIPS, SLIGHTLY GREATER ON THE LEFT THAN THE RIGHT.
[2019-10-30 10:56] LABS: ALT 21 U/L (4-34); AST 23 U/L (14-36); African American GFR (CKD) >90 (>60 ml/min/1.73 sqM); Albumin 3.9 g/dL (3.5-5.0); Alkaline Phosphatase 100 U/L (38-126); Blood Urea Nitrogen 11 mg/dL (7-17); Calcium 9.2 mg/dL (8.4-10.2); Chloride 91 mmol/L (98-107); Glucose 117 mg/dL (74-99); Magnesium 1.5 mg/dL (1.6-2.3); Non-African American GFR(CKD) >90 (>60 ml/min/1.73 sqM); Potassium 3.6 mmol/L (3.5-5.1); Sodium 140 mmol/L (137-145); Total Bilirubin 0.6 mg/dL (0.2-1.3); Total Protein 6.2 g/dL (6.3-8.2)
[2019-10-30 11:02] LABS: Anion Gap 8 mmol/L
[2019-10-30 11:04] LABS: HCT 42.9 % (34.0-46.0); HGB 13.4 gm/dL (11.4-16.0); Hypochromasia Marked; MCHC 31.2 g/dL (31.0-37.0); MCV 102.6 fL (80.0-100.0); Macrocytosis Slight; Mean Platelet Volume 8.4; Platelet Count 247 k/uL (150-450); RBC 4.18 m/uL (3.80-5.40); RDW 12.8 % (11.5-15.5); WBC 11.5 k/uL (3.8-10.6)
[2019-10-30 11:15] LABS: Carbon Dioxide 41 mmol/L (22-30)
--- NOTE | 2019-10-30 11:24 | P.PN ---
Subjective Progress Note Date: 10/30/19 54-year-old female patient was being seen in follow-up. She is still complaining of fullness in her left lower quadrant area and some pain in her left thigh area and she states that she is unable to wear any weight on that side. CAT scan of the abdomen and pelvis was within normal limits. Ultrasound of the left thigh was within normal limits. Ultrasound the left lower extremity showed no evidence of any DVTs or clots. No fever. No chills. No significant constipation. She was given laxatives and she had a bowel movement yesterday. She was also given a dose of diuretics. Note that she has taken MiraLAX and Dulcolax and Jessy-Colace to assist with her bowel movements activity. No other new complaints otherwise for now. No fever or chills. No respiratory difficulties. Objective - Vital Signs Vital signs: Vital Signs Temp 98.5 F 10/30/19 08:19 Pulse 77 10/30/19 09:17 Resp 18 10/30/19 08:19 BP 123/67 10/30/19 08:19 Pulse Ox 100 10/30/19 08:19 Intake & Output 10/29/19 10/30/19 10/30/19 18:59 06:59 18:59 Intake Total 210 120 Output Total 300 300 Balance -90 -300 120 Weight 110.5 kg Intake: Oral 210 120 Output: Urine 300 300 Other: Voiding Method Bedside Commode Bedside Commode Toilet Bedside Commode # Voids 2 1 1 - Exam GENERAL EXAM: Alert, very pleasant, morbidly obese, 54-year-old -Malagasy female, currently on 2 L/m per nasal cannula, complaining of left groin pain, ultrasound was negative for any abnormalities, Dopplers of the bilateral lower extremities were negative for DVT HEAD: Normocephalic/atraumatic. EYES: Normal reaction of pupils, equal size. Conjunctiva pink, sclera white. NOSE: Clear with pink turbinates. THROAT: No erythema or exudates. NECK: No masses, no JVD, no thyroid enlargement, no adenopathy. CHEST: No chest wall deformity. Symmetrical expansion. LUNGS: Equal air entry with no crackles, wheeze, rhonchi or dullness. CVS: Regular rate and rhythm, normal S1 and S2, no gallops, no murmurs, no rubs ABDOMEN: Soft, nontender. No hepatosplenomegaly, normal bowel sounds, no guarding or rigidity. EXTREMITIES: No clubbing, no edema, no cyanosis, 2+ pulses and upper and lower extremities. MUSCULOSKELETAL: Muscle strength and tone normal. SPINE: No scoliosis or deformity SKIN: No rashes, some edema the lower extremities CENTRAL NERVOUS SYSTEM: No focal deficits, tone is normal in all 4 extremities. PSYCHIATRIC: Alert and oriented -3. Appropriate affect. Intact judgment and insight. - Labs CBC & Chem 7: 10/30/19 10:27 10/30/19 10:27 Labs: Abnormal Lab Results - Last 24 Hours (Table) 10/30/19 10/30/19 Range/Units 10:27 10:27 WBC 11.5 H (3.8-10.6) k/uL MCV 102.6 H (80.0-100.0) fL Chloride 91 L (98-107) mmol/L Carbon Dioxide 41 H* (22-30) mmol/L Creatinine 0.40 L (0.52-1.04) mg/dL Glucose 117 H (74-99) mg/dL Magnesium 1.5 L (1.6-2.3) mg/dL Total Protein 6.2 L (6.3-8.2) g/dL Microbiology - Last 24 Hours (Table) 10/27/19 11:59 Blood Culture - Preliminary Blood No Growth after 48 hours Assessment and Plan Plan: #1. Left upper and left lower quadrant abdominal pain, left flank pain, CT of the abdomen and pelvis shows no bowel obstruction, mild to moderate colonic fecal stasis, no acute finding. Amylase lipase are negative. I thought this was related to constipation. She was given laxatives. Investigation with an ultrasound of the left thigh and Dopplers of the left lower extremity came back also within normal limits. #2. Acute on chronic hypoxic and hypercapnic respiratory failure related to hypoventilation, requiring brief BiPAP support, patient has recovered and is back on her 2 L of oxygen #3. Chronic multiple sclerosis of the relapsing remitting type, with history of multiple hospitalizations related to acute exacerbations, patient follows with Dr. Brito and receives Ocrevus infusions #4. History of chronic bronchial asthma, unspecified #5. Morbid obesity #6. Hypertension #7. History of smoking, and chronic tobacco dependence #8. Fibromyalgia #9. DJD #10. Rheumatic fever #11. Chronic occipital neuralgia #12. Optic neuritis #13. History of uterine cancer status post hysterectomy #14. Left groin and lower extremity pain and edema. Ultrasound negative. Dopplers of lower extremity negative for DVT. Plan Continue same treatment Obtain x-ray of the left hip to rule out any fractures Overall poor status is stable
--- NOTE | 2019-10-30 15:47 | P.PN ---
Subjective Progress Note Date: 10/30/19 This is a 53-year-old female patient of Dr. Tabares and Dr. Ramirez with a previous medical history significant for relapsing remitting multiple sclerosis, hypertension and hypertensive cardiovascular disease with left ventricular hypertrophy, history of GERD, multiple sclerosis, COPD, asthma, history of ost eoporosis, uterine cancer status post surgery, chronic hypoxic respiratory failure on home O2 at 2 L nasal cannula, tobacco use and dependence. Patient has had multiple admissions for acute exacerbation of MS. patient states that she was at Dr. Ramirez's office on Thursday of last week and underwent infusion for 6-1/2 hours. Since then she has had trouble with left lower quadrant discomfort. She states is very sharp and hurts as bad as having a baby. She denies any burning or pain with urination. No nausea or vomiting. She denies any fever or chills. She denies any significant weakness. She does complain of some right occipital discomfort. She came into [facility] emergency center for evaluation. She was afebrile, heart rate 99, blood pressure 114/77, pulse ox 94% on room air. Lab work reveals WBC 12.2, hemoglobin 14.9, platelet count 247. Sodium 135, potassium 3.2, chloride 94, CO2 32, BUN 7 and creatinine 0.44. Lactic acid 2.3. Liver function tests all within normal limits. Urinalysis cloudy, leukoesterase small, bacteria many. CAT scan of the abdomen and pelvis showed no bowel obstruction. Perhaps mild to moderate proximal colonic fecal stasis redemonstrated. No suspicious new or acute finding. The patient was prepared for discharge but then developed difficulty breathing and pulse ox dropped down to 76%. Patient was initially placed on BiPAP. ABGs revealed pH of 7.28, pCO2 71, P O2 87, bicarbonate 33, total CO2 35, O2 saturation 95.7 with FiO2 of 28. D-dimer was order that came back at 0.19. C reactive protein 61.2 and proBNP 41. Chest x-ray reveals cardiomegaly. Coarsened interstitium could be on the basis of bronchitis or interstitial pneumonitis. Patient to be admitted to the hospital and consult placed with Dr. Rushing. Coronavirus PCR testing in process. 10/27: Patient states that she was off BiPAP through the night and this morning. She is currently on 2 L nasal cannula pulse ox 96%. Patient continues to have left-sided abdominal pain more to the upper quadrant today. She was started on MiraLAX yesterday and she states she did have a bowel movement. Patient verbalizes that she feels she has lost sensation in the rectal area due to her MS. Repeat chest x-ray reveals no acute findings. Patient was evaluated by Dr. Rushing yesterday and he ordered a pro-calcitonin level. Continue same medications and smoking cessation. d-dimer 0.19. C-reactive protein 61.2, proBNP 41 pro-calcitonin 0.05.COVID-19 negative. Azithromycin and ceftriaxone will be discontinued. 10/28 patient complaining of left upper and left mid abdominal pain radiating to the back, still no bowel movements, despite laxatives, she had 2 small ones, patient has no nausea, no hematuria, no dysuria, CAT scan again reviewed abdomen and pelvis, showing fecal prominence in the right side of the colon and one half of the transverse colon, sigmoid diverticula, without evidence of diverticulitis, patient has 5 x 4 mm right lower lobe nodule, present from 09/04/2019, fatty liver, 2.0 cm left hepatic cyst, have lower lying cecum, no bowel obstruction, no lymphadenopathy patient complaining also of a left groin pain, venous Doppler to evaluate for DVT is negative, it patient would received a laxative today, MiraLAX 1 dose, no response to MiraLAX, Dulcolax 10 mg 1 dose and Jessy-Colace in a.m. and replace Colace. Patient might need Amitiza, secondary to neurogenic colon, from MS 10/29. Patient continues to have left hip left thigh pain, not relieved with Robaxin, reviewed x-rays that shows nauseous lesions, there is no suspicion for avascular necrosis, there is degenerative changes lumbar spine, as well as hips, left greater than the right, no fracture, pain is not relieved with Robaxin, mentation level is low, this will be replaced, patient does not feel ready for discharge today, patient remained to be afebrile, bowel movements are better however slow, still requires outpatient management of chronic constipation using a new prescription including Amitiza or linzess, Voltaren gel to be started, no change in gabapentin 1200 every 12 hours, increase her prerenal 2.5 mg 3 times a day. patient is at fall risk, anticipate discharge in a.m. Review of Systems Constitutional: Denies chills, Reports fatigue, denies fever, denies lethargy, denies malaise Eyes: denies blurred vision, denies pain Ears, nose, mouth and throat: Denies dysphagia, Denies headache, Denies nasal congestion, Denies nasal discharge, Denies sore throat, Denies vertigo Cardiovascular: Denies dyspnea on exertion, Denies chest pain, Denies edema, Denies irregular heart beat, Denies leg edema, Denies lightheadedness, reports shortness of breath, Denies syncope Respiratory: Denies cough, denies cough with white sputum, denies dyspnea, Denies excessive sputum, Denies hemoptysis, reports home oxygen, Denies wheezing Gastrointestinal: Reports abdominal pain, Denies diarrhea, Denies loss of appetite, Denies nausea, Denies vomiting Genitourinary: Denies dysuria, Denies hematuria, Denies urgency, Denies urinary frequency Musculoskeletal: Reports gait dysfunction chronic, Reports muscle weakness, reports myalgias Integumentary: Denies pruritus, Denies rash, Denies wounds Neurological: Denies change in mentation, Denies change in speech, Denies numbness, Denies weakness Psychiatric: Denies anxiety, Denies depression Endocrine: Denies fatigue, Denies weight change Objective - Vital Signs Vital signs: Vital Signs Temp 97.9 F 10/30/19 11:44 Pulse 76 10/30/19 13:10 Resp 20 10/30/19 11:44 BP 129/77 10/30/19 11:44 Pulse Ox 96 10/30/19 11:44 Intake & Output 10/29/19 10/30/19 10/30/19 18:59 06:59 18:59 Intake Total 210 240 Output Total 300 300 500 Balance -90 -300 -260 Weight 110.5 kg Intake: Oral 210 240 Output: Urine 300 300 500 Other: Voiding Method Bedside Commode Bedside Commode Toilet # Voids 2 1 1 - Constitutional General appearance: Present: cooperative, no acute distress - EENT Eyes: Present: anicteric sclerae, EOMI, PERRLA, dentition normal, normal appearance - Neck Neck: Present: normal ROM - Respiratory Respiratory: bilateral: CTA, negative: diminished, dullness - Cardiovascular Rhythm: regular Heart sounds: normal: S1, S2 - Gastrointestinal General gastrointestinal: Present: normal bowel sounds, soft - Integumentary Integumentary: Present: decreased turgor, normal - Neurologic Neurologic: Present: CNII-XII intact - Musculoskeletal Musculoskeletal Comment(s): Trochanteric bursa tenderness, pyriformis muscle and gluteal muscle tenderness, Musculoskeletal: Present: strength equal bilaterally - Psychiatric Psychiatric: Present: A&O x's 3 - Labs CBC & Chem 7: 10/30/19 10:27 10/30/19 10:27 Labs: Abnormal Lab Results - Last 24 Hours (Table) 10/30/19 10/30/19 Range/Units 10:27 10:27 WBC 11.5 H (3.8-10.6) k/uL MCV 102.6 H (80.0-100.0) fL Chloride 91 L (98-107) mmol/L Carbon Dioxide 41 H* (22-30) mmol/L Creatinine 0.40 L (0.52-1.04) mg/dL Glucose 117 H (74-99) mg/dL Magnesium 1.5 L (1.6-2.3) mg/dL Total Protein 6.2 L (6.3-8.2) g/dL Microbiology - Last 24 Hours (Table) 10/27/19 11:59 Blood Culture - Preliminary Blood No Growth after 72 hours Assessment and Plan Plan: Assessment and Plan 1. Hypoxia and complaints of dyspnea. Patient's been placed on BiPAP. Repeat Chest x-ray shows no acute findings. Consult with Dr. Сергей infante. Discontinue ceftriaxone, azithromycin. Continue Symbicort twice daily, DuoNeb treatments 4 times daily and as needed. 2. Left lower quadrant pain, constipation, neurogenic colon from ms failed multiple laxatives, dulcolax x 1 dose on 10/28. Continue MiraLAX daily. pericolace, amitiza if available 3. History of relapsing remitting multiple sclerosis. 4. Chronic pain and occipital neuralgia under the care of Dr. Ramirez. Continue gabapentin 1200mg 3 times daily, Percocet one 3 times daily as needed, Fioricet as needed. 5. Hypertension and hypertensive cardiovascular disease. Hold hydrochlorothi azide 25 mg daily, verapamil 120 mg orally once every day--for hypotension. 6. Obesity with possible obstructive sleep apnea and obesity hypoventilation syndrome. BiPAP. 7. Mild intermittent asthma and COPD. Continue albuterol inhaler every 6 hours as needed, Symbicort twice daily, Singulair 10 mg daily, Flonase as needed. 8. Fibromyalgia. Continue gabapentin 1200 mg orally 3 times every day. 8. Generalized anxiety disorder. Continue Ativan 1 mg every 8 hours as needed. 9. Recurrent depression. Continue Paxil 40 mg daily. 10. Chronic tobacco use and dependence. Smoking cessation and counseling an increased risk of CAD, CVA, and malignancy. Continue nicotine patch 21 mg once every day. 11. Mild cognitive impairment. Continue patient on Namenda 10 mg orally twice every day. 13. Restless leg syndrome. Continue Requip 0.25 mg 2 times daily 14. DVT prophylaxis. Lovenox 40 mg subcutaneously every 24 hours. 15. GERD and GI prophylaxis. Continue with Protonix 40 mg orally twice every day. 16. COVID-19 infection not present. 17. left Groin pain, negative for pathology, could be related to spasms from MS, negative for DVT patient has Robaxin and gabapentin CODE STATUS: Full code Discharge plan: Home with [facility]
[2019-10-30] MEDS: MELATONIN 5 MG TABLET PO SCH (21:00)
[2019-10-30] MEDS: MAGNESIUM OXIDE 400 MG TAB PO SCH (21:00)
[2019-10-31] MEDS: HEPARIN SODIUM,PORCINE 5,000 UNIT/ML 1 ML VIAL SQ SCH ×2 (00:02→09:14)
[2019-10-31] MEDS: HYDROmorphone 1 MG/ML 1 ML SYRINGE IVP PRN ×2 (00:04→09:19)
[2019-10-31] MEDS: oxyCODONE-APAP 10-325MG 1 EACH TAB PO PRN ×2 (00:04→09:58)
[2019-10-31] MEDS: LORazepam 1 MG TAB PO PRN ×2 (00:04→09:15)
[2019-10-31] MEDS: BUTALB/APAP/CAFF 50-325-40MG TAB PO PRN ×2 (00:04→09:18)
[2019-10-31] MEDS: PANTOPRAZOLE 40 MG TABLET PO SCH (06:29)
[2019-10-31] MEDS: SYMBICORT 160-4.5 MCG INHALER INHALATION SCH (08:29)
[2019-10-31] MEDS: IPRATROPIUM-ALBUTEROL 3 ML NEB INHALATION SCH ×2 (08:29→11:33)
[2019-10-31 08:57] VITALS: BP 114/71; RESP 19; TEMP 98.1
[2019-10-31] MEDS: polyethylene glycoL 3350 17 GM POWD.PACK PO SCH (09:12)
[2019-10-31] MEDS: CHOLECALCIFEROL 1,000 UNIT TAB PO SCH (09:13)
[2019-10-31] MEDS: NICOTINE 21MG/24HR PATCH TRANSDERM SCH (09:13)
[2019-10-31] MEDS: PARoxetine 20 MG TAB PO SCH (09:13)
[2019-10-31] MEDS: VERAPAMIL 40 MG TAB PO SCH (09:14)
[2019-10-31] MEDS: MEMANTINE 10 MG TAB PO SCH (09:14)
[2019-10-31] MEDS: FOLIC ACID 1 MG TAB PO SCH (09:14)
[2019-10-31] MEDS: MONTELUKAST 10 MG TAB PO SCH (09:14)
[2019-10-31] MEDS: FUROSEMIDE 10 MG/ML 2 ML VIAL IV SCH (09:15)
[2019-10-31] MEDS: MAGNESIUM OXIDE 400 MG TAB PO SCH (09:15)
[2019-10-31] MEDS: busPIRone HCl 10 MG TAB PO SCH (09:15)
[2019-10-31] MEDS: MULTIVITAMINS, THERA 1 EACH TAB PO SCH (09:15)
[2019-10-31] MEDS: SENNOSIDES-DOCUSATE SODIUM 1 EACH TAB PO SCH (09:15)
[2019-10-31] MEDS: ASPIRIN 81 MG PO SCH (09:15)
[2019-10-31] MEDS: NYSTATIN 100,000 UNIT/ML SUSP 500,000 UNIT/5 ML CUP PO SCH (09:16)
[2019-10-31] MEDS: methocarbamoL 750 MG TAB PO SCH (09:16)
[2019-10-31] MEDS: GABAPENTIN 600MG PO SCH (09:59)
--- NOTE | 2019-10-31 10:39 | P.DS ---
Providers Date of admission: 10/27/19 11:12 Attending physician: Zan Minor Consults: 10/27/19 11:12 Consult Physician Routine Consulting Provider: Ct Rushing Consult Reason/Comments: Respiratory failure Do you want consulting provider notified?: Yes Primary care physician: Kilo Tabares [facility] Course: This is a 53-year-old female patient of Dr. Tabares and Dr. Ramirez with a previous medical history significant for relapsing remitting multiple sclerosis, hypertension and hypertensive cardiovascular disease with left ventricular hypertrophy, history of GERD, multiple sclerosis, COPD, asthma, history of osteoporosis, uterine cancer status post surgery, chronic hypoxic respiratory failure on home O2 at 2 L nasal cannula, tobacco use and dependence. Patient has had multiple admissions for acute exacerbation of MS. patient states that she was at Dr. Ramirez's office on Thursday of last week and underwent infusion for 6-1/2 hours. Since then she has had trouble with left lower quadrant discomfort. She states is very sharp and hurts as bad as having a baby. She denies any burning or pain with urination. No nausea or vomiting. She denies any fever or chills. She denies any significant weakness. She does complain of some right occipital discomfort. She came into [facility] emergency center for evaluation. She was afebrile, heart rate 99, blood pressure 114/77, pulse ox 94% on room air. Lab work reveals WBC 12.2, hemoglobin 14.9, platelet count 247. Sodium 135, potassium 3.2, chloride 94, CO2 32, BUN 7 and creatinine 0.44. Lactic acid 2.3. Liver function tests all within normal limits. Urinalysis cloudy, leukoesterase small, bacteria many. CAT scan of the abdomen and pelvis showed no bowel obstruction. Perhaps mild to moderate proximal colonic fecal stasis redemonstrated. No suspicious new or acute finding. The patient was prepared for discharge but then developed difficulty breathing and pulse ox dropped down to 76%. Patient was initially placed on BiPAP. ABGs revealed pH of 7.28, pCO2 71, P O2 87, bicarbonate 33, total CO2 35, O2 saturation 95.7 with FiO2 of 28. D-dimer was order that came back at 0.19. C reactive protein 61.2 and proBNP 41. Chest x-ray reveals cardiomegaly. Coarsened interstitium could be on the basis of bronchitis or interstitial pneumonitis. Patient to be admitted to the hospital and consult placed with Dr. Rushing. Coronavirus PCR testing in process. 10/27: Patient states that she was off BiPAP through the night and this morning. She is currently on 2 L nasal cannula pulse ox 96%. Patient continues to have left-sided abdominal pain more to the upper quadrant today. She was started on MiraLAX yesterday and she states she did have a bowel movement. Patient verbalizes that she feels she has lost sensation in the rectal area due to her MS. Repeat chest x-ray reveals no acute findings. Patient was evaluated by Dr. Rushing yesterday and he ordered a pro-calcitonin level. Continue same medications and smoking cessation. d-dimer 0.19. C-reactive protein 61.2, proBNP 41 pro-calcitonin 0.05.COVID-19 negative. Azithromycin and ceftriaxone will be discontinued. 10/28 patient complaining of left upper and left mid abdominal pain radiating to the back, still no bowel movements, despite laxatives, she had 2 small ones, patient has no nausea, no hematuria, no dysuria, CAT scan again reviewed abdomen and pelvis, showing fecal prominence in the right side of the colon and one half of the transverse colon, sigmoid diverticula, without evidence of diverticulitis, patient has 5 x 4 mm right lower lobe nodule, present from 09/04/2019, fatty liver, 2.0 cm left hepatic cyst, have lower lying cecum, no bowel obstruction, no lymphadenopathy patient complaining also of a left groin pain, venous Doppler to evaluate for DVT is negative, it patient would received a laxative today, MiraLAX 1 dose, no response to MiraLAX, Dulcolax 10 mg 1 dose and Jessy-Colace in a.m. and replace Colace. Patient might need Amitiza, secondary to neurogenic colon, from MS 10/29. Patient continues to have left hip left thigh pain, not relieved with Robaxin, reviewed x-rays that shows nauseous lesions, there is no suspicion for avascular necrosis, there is degenerative changes lumbar spine, as well as hips, left greater than the right, no fracture, pain is not relieved with Robaxin, mentation level is low, this will be replaced, patient does not feel ready for discharge today, patient remained to be afebrile, bowel movements are better however slow, still requires outpatient management of chronic constipation using a new prescription including Amitiza or linzess, Voltaren gel to be started, no change in gabapentin 1200 every 12 hours, increase her prerenal 2.5 mg 3 times a day. patient is at fall risk, anticipate discharge in a.m. 10/30: Patient evaluated this morning on rounds, noted to be lying in bed. Still has complaints of left hip pain, doppler is negative for DVT, symptoms ar e consistent with sciatic neuritis, ambulation was encouraged. Will continue on Voltaren gel , gabapentin , and Robaxin. She reports abdominal pain is better, she did have a bowel movement yesterday. She is tolerating by mouth food and fluids, encouraged to remain on a stool softener and high-fiber diet to prevent chronic constipation. She denies any shortness of breath, chest pain, nausea ,vomiting, diarrhea, or constipation. Vital signs remain stable, she is 95% on 2 L nasal cannula, blood pressure 114/71, heart rate of 88, she remains afebrile 98.1. She voices she is ready for discharge home today, will be discharged home with homecare. Discharge diagnoses 1. Hypoxia and complaints of dyspnea. 2. Left lower quadrant pain, constipation, neurogenic colon from ms 3. History of relapsing remitting multiple sclerosis. 4. Chronic pain and occipital neuralgia under the care of Dr. Ramirez. 5. Hypertension and hypertensive cardiovascular disease. 6. Obesity with possible obstructive sleep apnea and obesity hypoventilation syndrome. 7. Mild intermittent asthma and COPD. 8. Fibromyalgia. 8. Generalized anxiety disorder. 9. Recurrent depression. 10. Chronic tobacco use and dependence. 11. Mild cognitive impairment. 13. Restless leg syndrome. 14. COVID-19 infection not present. 15. left Groin pain Discharge plan: Home with [facility] Patient Condition at Discharge: Stable Plan - Discharge Summary Discharge Rx Participant: No New Discharge Prescriptions: New Amoxic-Pot Clav 875-125Mg [Augmentin 875-125] 1 tab PO Q12HR 10 Days #20 tab Polyethylene Glycol 3350 [Miralax] 17 gm PO DAILY #7 packet Magnesium Oxide [Mag-Ox] 400 mg PO BID #60 tab Melatonin 5 mg PO HS tablet Polyethylene Glycol 3350 [Miralax] 17 gm PO DAILY powd.pack Sennosides-Docusate Sodium [Senokot-S] 1 each PO BID tab Continue LORazepam [Ativan] 1 mg PO Q8H PRN PRN Reason: Anxiety Aspirin 81 mg PO DAILY Verapamil HCl [Calan] 120 mg PO DAILY Gabapentin [Neurontin] 1,200 mg PO TID Butalb/APAP/Caff 50-325-40Mg [Fioricet 50-325-40] 1 tab PO Q8H PRN PRN Reason: Migraine Headache oxyCODONE-APAP 10-325MG [Percocet 10-325 mg] 1 tab PO TID PRN PRN Reason: pain rOPINIRole HCL [Requip] 0.25 mg PO TID #90 tab Budesonide/Formoterol Fumarate [Symbicort 160-4.5 Mcg Inhaler] 2 puff INHALATION RT-BID Multivitamins, Thera [Multivitamin (formulary)] 1 tab PO DAILY Cholecalciferol [Vitamin D3 (25 Mcg = 1000 Iu)] 2,000 unit PO DAILY PARoxetine [Paxil] 40 mg PO DAILY tab Pantoprazole Sodium [Protonix] 40 mg PO BID Ipratropium-Albuterol Nebulize [Duoneb 0.5 mg-3 mg/3 ml Soln] 3 ml INHALATION RT-QID PRN PRN Reason: Shortness Of Breath Memantine [Namenda] 10 mg PO BID Montelukast [Singulair] 10 mg PO DAILY Nicotine 21Mg/24Hr Patch [Habitrol] 1 patch TRANSDERM DAILY #30 patch Hydrochlorothiazide [Hydrodiuril] 25 mg PO DAILY tab Fluticasone Nasal [place] [Flonase Nasal [place]] 2 spray EA NOSTRIL DAILY PRN PRN Reason: Congestion Methocarbamol [Robaxin-750] 750 mg PO BID busPIRone HCl [Buspar] 10 mg PO TID #90 tab Folic Acid 1 mg PO DAILY #30 tab Albuterol Sulfate [Ventolin HFA] 1 - 2 puff INHALATION RT-Q6H PRN PRN Reason: Shortness Of Breath Nystatin 100,000 Unit/ml Susp [Mycostatin Oral Susp] 500,000 unit PO QID Diclofenac Sodium Gel [Voltaren Gel] 2 gm TOPICAL QID Discharge Medication List Aspirin 81 mg PO DAILY 10/20/14 [History] LORazepam [Ativan] 1 mg PO Q8H PRN 02/20/14 [History] Verapamil HCl [Calan] 120 mg PO DAILY 02/20/14 [History] Gabapentin [Neurontin] 1,200 mg PO TID 08/19/16 [History] Butalb/APAP/Caff 50-325-40Mg [Fioricet 50-325-40] 1 tab PO Q8H PRN 03/25/17 [History] oxyCODONE-APAP 10-325MG [Percocet 10-325 mg] 1 tab PO TID PRN 01/28/18 [History] rOPINIRole HCL [Requip] 0.25 mg PO TID #90 tab 01/31/18 [Rx] Budesonide/Formoterol Fumarate [Symbicort 160-4.5 Mcg Inhaler] 2 puff INHALATION RT-BID 05/06/18 [History] Cholecalciferol [Vitamin D3 (25 Mcg = 1000 Iu)] 2,000 unit PO DAILY 05/07/18 [History] Multivitamins, Thera [Multivitamin (formulary)] 1 tab PO DAILY 05/07/18 [History] PARoxetine [Paxil] 40 mg PO DAILY tab 05/09/18 [Rx] Pantoprazole Sodium [Protonix] 40 mg PO BID 10/31/18 [History] Ipratropium-Albuterol Nebulize [Duoneb 0.5 mg-3 mg/3 ml Soln] 3 ml INHALATION RT-QID PRN 11/22/18 [History] Memantine [Namenda] 10 mg PO BID 11/22/18 [History] Montelukast [Singulair] 10 mg PO DAILY 11/22/18 [History] Hydrochlorothiazide [Hydrodiuril] 25 mg PO DAILY tab 11/26/18 [Rx] Nicotine 21Mg/24Hr Patch [Habitrol] 1 patch TRANSDERM DAILY #30 patch 11/26/18 [Rx] Fluticasone Nasal [place] [Flonase Nasal [place]] 2 spray EA NOSTRIL DAILY PRN 04/28/19 [History] Methocarbamol [Robaxin-750] 750 mg PO BID 04/28/19 [History] Folic Acid 1 mg PO DAILY #30 tab 05/02/19 [Rx] busPIRone HCl [Buspar] 10 mg PO TID #90 tab 05/02/19 [Rx] Albuterol Sulfate [Ventolin HFA] 1 - 2 puff INHALATION RT-Q6H PRN 08/09/19 [History] Nystatin 100,000 Unit/ml Susp [Mycostatin Oral Susp] 500,000 unit PO QID 09/04/19 [History] Amoxic-Pot Clav 875-125Mg [Augmentin 875-125] 1 tab PO Q12HR 10 Days #20 tab 10/27/19 [Rx] Diclofenac Sodium Gel [Voltaren Gel] 2 gm TOPICAL QID 10/27/19 [History] Polyethylene Glycol 3350 [Miralax] 17 gm PO DAILY #7 packet 10/27/19 [Rx] Magnesium Oxide [Mag-Ox] 400 mg PO BID #60 tab 10/31/19 [Rx] Melatonin 5 mg PO HS tablet 10/31/19 [Rx] Polyethylene Glycol 3350 [Miralax] 17 gm PO DAILY powd.pack 10/31/19 [Rx] Sennosides-Docusate Sodium [Senokot-S] 1 each PO BID tab 10/31/19 [Rx] Follow up Appointment(s)/Referral(s): [facility], [NON-STAFF] - Kilo Tabares MD [Primary Care Provider] - 1-2 days Patient Instructions/Handouts: Constipation (DC), High Fiber Diet (DC) Discharge Disposition: HOME WITH HOME HEALTH SERVICES
[2019-10-31] MEDS: DICLOFENAC SODIUM GEL 100 GM TUBE TOPICAL SCH (11:20)
[2019-10-31 11:37] VITALS: PULSE 78
--- NOTE | 2019-10-31 15:12 | P.PN ---
Subjective Progress Note Date: 10/31/19 Principal diagnosis: Abdominal pain, hypercapnic respiratory failure, acute on chronic 54-year-old -[place] female patient of Dr. Tabares, who is well-known to our service for her history of COPD, and she follows with Dr. Rushing in the pulmonary clinic. Patient's medical history is significant for multiple sclerosis, hypertension, GERD/reflux, fibromyalgia, degenerative joint disease, chronic occipital neuralgia, optic neuritis, chronic tobacco dependence, chronic hypoxic respiratory failure on 2 L of oxygen, history of uterine cancer and previous hysterectomy. Patient presented to the emergency department on 10/27/2019 with complaints of left upper quadrant left lower quadrant left flank pain, patient described it as stabbing and aching, associated with nausea, constant in nature, with severe intensity. CT of the abdomen and pelvis without contrast was slightly suboptimal secondary to lack of anterior contrast, no suspicious small or large bowel dilation, there was prominence of fecal material in the right and proximal one half of the transverse colon, with some sigmoid colonic diverticula, without evidence of acute diverticulitis. No evidence of bowel obstruction. Chest x-ray showed cardiomegaly, coarsened interstitium could be on the basis of bronchitis or interstitial pneumonitis. Labs reviewed showing white blood cell count is 12.2, hemoglobin of 14.9, platelet count is 247, d-dimer was negative at 0.19, sodium is 135, potassium is 3.2, chloride is 94, CO2 32, BUN of 7, creatinine 0.44, plasma lactic acid was 2.3, BNP was within normal limits at 41, CRP was elevated to 61.2, LFTs are within normal limits, urinalysis was positive for small amount of leuks, many bacteria, but low WBCs. Low-grade fever a temp of 99.7F at present, she was started on a combination of azithromycin and Rocephin, she is on breathing treatments, and inhalers including DuoNeb and Symbicort. Patient has received some pain medication for her left abdominal left flank pain, she was then noted to be hypoxic with a pulse ox of 76% on room air, and tachycardic, blood gas was obtained and revealed pO2 of 87, pCO2 of 71, and pH of 7.28 consistent with acu te on chronic hypercapnic respiratory failure possibly related to episode of hypoventilation. Currently recovered, awake and alert, she is back on 2 L of oxygen, she'll required brief BiPAP support. On 10/31/2019 patient seen in follow-up on selective care unit, she is calm and comfortable, currently on 2 L of oxygen with pulse ox of 95%, no BiPAP support, lung sounds are essentially clear to auscultation, no wheezing, no rhonchi, no cough or congestion, still has some left upper quadrant abdominal discomfort, however all of her workup so far has been negative, she has received some laxatives for fecal stasis. No nausea vomiting, no diarrhea. Her vital signs are stable, hemodynamically patient is stable, abdomen is soft, her chest x-ray shows no acute findings, she continues on nebulized treatments, her antibiotics have been discontinued. Clinically stable, in no acute events overnight, left groin ultrasound showed no evidence of DVT. No other issues, patient is anticipated to be discharged home today Objective - Vital Signs Vital signs: Vital Signs Temp 98.1 F 10/31/19 08:00 Pulse 78 10/31/19 11:46 Resp 19 10/31/19 08:00 BP 114/71 10/31/19 08:00 Pulse Ox 95 10/31/19 08:00 Intake & Output 10/30/19 10/31/19 10/31/19 18:59 06:59 18:59 Intake Total 360 10 325 Output Total 900 2500 Balance -540 -2490 325 Weight 104.9 kg Intake: IV 10 0.9 10 Oral 360 325 Output: Urine 900 2500 Other: Voiding Method Toilet Toilet Toilet # Voids 2 1 # Bowel Movements 1 - Exam GENERAL EXAM: Alert, very pleasant, 54-year-old -[place] female, currently on 2 L of oxygen the pulse ox of 95% comfortable in no apparent distress. HEAD: Normocephalic/atraumatic. EYES: Normal reaction of pupils, equal size. Conjunctiva pink, sclera white. NOSE: Clear with pink turbinates. THROAT: No erythema or exudates. NECK: No masses, no JVD, no thyroid enlargement, no adenopathy. CHEST: No chest wall deformity. Symmetrical expansion. LUNGS: Equal air entry with no crackles, wheeze, rhonchi or dullness. CVS: Regular rate and rhythm, normal S1 and S2, no gallops, no murmurs, no rubs ABDOMEN: Soft, nontender. No hepatosplenomegaly, normal bowel sounds, no guarding or rigidity. EXTREMITIES: No clubbing, no edema, no cyanosis, 2+ pulses and upper and lower extremities. MUSCULOSKELETAL: Muscle strength and tone normal. SPINE: No scoliosis or deformity SKIN: No rashes CENTRAL NERVOUS SYSTEM: Alert and oriented -3. No focal deficits, tone is normal in all 4 extremities. PSYCHIATRIC: Alert and oriented -3. Appropriate affect. Intact judgment and insight. - Labs CBC & Chem 7: 10/30/19 10:27 10/30/19 10:27 Labs: Microbiology - Last 24 Hours (Table) 10/27/19 11:59 Blood Culture - Preliminary Blood No Growth after 96 hours Assessment and Plan Plan: Assessment: #1. Left upper and left lower quadrant abdominal pain, left flank pain, CT of the abdomen and pelvis shows no bowel obstruction, mild to moderate colonic fecal stasis, no acute finding. Amylase lipase are negative #2. Acute on chronic hypoxic and hypercapnic respiratory failure related to hypoventilation, requiring brief BiPAP support, patient has recovered and is back on her 2 L of oxygen #3. Chronic multiple sclerosis of the relapsing remitting type, with history of multiple hospitalizations related to acute exacerbations, patient follows with Dr. Brito and receives Ocrevus infusions #4. History of chronic bronchial asthma, unspecified #5. Morbid obesity #6. Hypertension #7. History of smoking, and chronic tobacco dependence #8. Fibromyalgia #9. DJD #10. Rheumatic fever #11. Chronic occipital neuralgia #12. Optic neuritis #13. History of uterine cancer status post hysterectomy #14. Left groin pain, venous Doppler showed no evidence of DVT, x-ray of the left hip and pelvis showed degenerative changes in the lumbar spine, degenerative changes in the hips, slightly greater on the left than the right, no evidence of fracture or dislocation Plan: Patient remains stable from pulmonary perspective, and alert, not requiring BiPAP support, she is on her home dose O2 at 2 L, lung sounds are clear, no evidence of pneumonia on the chest x-ray, antibiotics have been discontinued, signs are stable, from pulmonary perspective she can be discharged home today with outpatient follow-up with Dr. Rushing in the office I performed a history & physical examination of the patient and discussed their management with my nurse practitioner, Gay Hernandez. I reviewed the nurse practitioner's note and agree with the documented findings and plan of care. Lung sounds are positive for diminished breath sounds. The findings and the impression was discussed with the patient. I attest to the documentation by the nurse practitioner. Time with Patient: Less than 30
--- NOTE | 2019-11-02 15:01 | CDI ---
Documentation Clarification Form Date: 11/02/2019 02:42:31 PM From: Aure Blanco Phone: If you have a question about this query, please contact Caryn Cullen, [employer] at [phone] between 8am and 5pm. Admit Date: 10/27/2019 11:12:00 AM Patient Name: Hudson Morales Visit Number: [id number] Discharge Date: 10/31/2019 03:34:00 PM ATTENTION: The Clinical Documentation Specialists (CDI) and [facility] Coding Staff appreciate your assistance in clarifying documentation. Please respond to the clarification below the line at the bottom and electronically sign. The CDI & [facility] Coding staff will review the response and follow-up if needed. Please note: Queries are made part of the Legal Health Record. If you have any questions, please contact the author of this message via ITS. Dr. Deneen Thomason Per DCS Patient was prepared to be discharged developed difficulty breathing pulse ox 76%. Placed on bipap. Pulmonary consult and PN's document acute and chronic hypoxic respiratory failure. Acute respiratory failure not carried through to DCS. History/Risk Factors: OHS, BMI 41, COPD, chronic respiratory failure on home O2 Tobacco use: positive tobacco Home oxygen: yes Clinical Indicators: difficulty breathing Vital signs: 99.7 F, 144 bpm, 20, 114/87, 76 RA Pulse oximetry: 76 ABG/CBG: pH 7.28 pO2 87 pCO2 71 Treatment: Bipap In your professional opinion, can you please clarify if these findings signify one of the following conditions? Acute Respiratory Failure Acute on Chronic Respiratory Failure Acute Respiratory Distress Acute Respiratory Insufficiency Other Diagnosis, please specify Unable to determine Specificity: If known, further specify (if known): With hypercapnia? (pCO2 >50 and pH <7.35) With hypoxia? (pO2 <60 mm Hg or SpO2 <91% on room air) acute on chronic hypercarbic respiratory failure, obesity hypoventilation syndrome suspected MTDD
== END 2019-10-31 15:34 | disposition home health service (06) | DRG 189 ==
LOC: EC 06:10 → 3SCARD 11:12
PROVIDERS: ADMIT Internal Medicine Geriatric Medicine; ATTEND Internal Medicine Geriatric Medicine
PROC: 5A09357 Assistance with Respiratory Ventilation, Less than 24 Consecutive Hours, Continuous Positive Airway Pressure (ICD-10-PCS; principal; 2019-10-27)
DX: J96.22 Acute and chronic respiratory failure with hypercapnia (principal); Z68.41 Body mass index [BMI] 40.0-44.9, adult; F33.9 Major depressive disorder, recurrent, unspecified; H46.9 Unspecified optic neuritis; K59.2 Neurogenic bowel, not elsewhere classified; E66.2 Morbid (severe) obesity with alveolar hypoventilation; J96.21 Acute and chronic respiratory failure with hypoxia; K59.09 Other constipation; J45.20 Mild intermittent asthma, uncomplicated; Z87.01 Personal history of pneumonia (recurrent); Z71.6 Tobacco abuse counseling; F17.210 Nicotine dependence, cigarettes, uncomplicated; F41.1 Generalized anxiety disorder; G25.81 Restless legs syndrome; G31.84 Mild cognitive impairment of uncertain or unknown etiology; G35 Multiple sclerosis; G89.29 Other chronic pain; H91.90 Unspecified hearing loss, unspecified ear; I11.9 Hypertensive heart disease without heart failure; J44.9 Chronic obstructive pulmonary disease, unspecified; Z20.828 Contact with and (suspected) exposure to other viral communicable diseases; K76.0 Fatty (change of) liver, not elsewhere classified; M19.90 Unspecified osteoarthritis, unspecified site; M54.81 Occipital neuralgia; M79.7 Fibromyalgia; M81.0 Age-related osteoporosis without current pathological fracture; Z79.51 Long term (current) use of inhaled steroids; Z79.82 Long term (current) use of aspirin; Z79.899 Other long term (current) drug therapy; Z82.3 Family history of stroke; Z82.41 Family history of sudden cardiac death; Z82.49 Family history of ischemic heart disease and other diseases of the circulatory system; Z85.42 Personal history of malignant neoplasm of other parts of uterus; Z90.710 Acquired absence of both cervix and uterus; K76.89 Other specified diseases of liver; Z99.81 Dependence on supplemental oxygen; Z88.8 Allergy status to other drugs, medicaments and biological substances; R91.8 Other nonspecific abnormal finding of lung field; K21.9 Gastro-esophageal reflux disease without esophagitis
CPT/HCPCS: 36415; 36600; 71046; 73521; 74019; 74177; 80053; 81001; 82150; 82550; 82805; 83605; 83625; 83690; 83735; 83880; 84100; 84145; 85025; 85027; 85379; 86140; 87040; 93005; 93970; 94640; 94660; 96361; 96365; 96367; 96372; 96375; 99285

== ENCOUNTER 2020-01-25 10:49 | Emergency (ER) | payer MEDICARE, OTHER ==
[2020-01-25 11:00] VITALS: RESP 18
[2020-01-25] MEDS ORDERED: HYDROmorphone 0.5 MG/0.5 ML SYRINGE IVP STA (11:24)
--- NOTE | 2020-01-25 11:36 | ED ---
General Adult HPI - General Chief complaint: Extremity Injury, Lower Stated complaint: Fall, L Knee Pain Time Seen by Provider: 01/25/20 11:06 Source: patient, EMS, RN notes reviewed Mode of arrival: EMS Limitations: no limitations - History of Present Illness Initial comments: 54-year-old female with a complicated past medical history presents to the e mergency department for a chief complaint of leg pain. Patient reports that yesterday she was walking and her foot got stuck under the edge of her carpet and she fell onto the left knee. Patient states that the knee was bent. Patient reports that she is having pain with walking on this. States it is also bruised. Patient did not hit her head. No syncopal episode prior to this. Patient did take Tylenol but is out of her Percocet. She states this will be refilled tomorrow.Patient has no other complaints at this time including shortness of breath, chest pain, abdominal pain, nausea or vomiting, headache, or visual changes. - Related Data Home Medications Medication Instructions Recorded Confirmed Aspirin 81 mg PO DAILY 02/20/14 10/27/19 LORazepam [Ativan] 1 mg PO Q8H PRN 02/20/14 10/27/19 Verapamil HCl [Calan] 120 mg PO DAILY 02/20/14 10/27/19 Gabapentin [Neurontin] 1,200 mg PO TID 08/19/16 10/27/19 Butalb/APAP/Caff 50-325-40Mg 1 tab PO Q8H PRN 03/25/17 10/27/19 [Fioricet 50-325-40] oxyCODONE-APAP 10-325MG [Percocet 1 tab PO TID PRN 01/28/18 10/27/19 10-325 mg] Budesonide/Formoterol Fumarate 2 puff INHALATION RT-BID 05/06/18 10/27/19 [Symbicort 160-4.5 Mcg Inhaler] Cholecalciferol [Vitamin D3 (25 2,000 unit PO DAILY 05/07/18 10/27/19 Mcg = 1000 Iu)] Multivitamins, Thera [Multivitamin 1 tab PO DAILY 05/07/18 10/27/19 (formulary)] Pantoprazole Sodium [Protonix] 40 mg PO BID 10/31/18 10/27/19 Ipratropium-Albuterol Nebulize 3 ml INHALATION RT-QID PRN 11/22/18 10/27/19 [Duoneb 0.5 mg-3 mg/3 ml Soln] Memantine [Namenda] 10 mg PO BID 11/22/18 10/27/19 Montelukast [Singulair] 10 mg PO DAILY 11/22/18 10/27/19 Fluticasone Nasal [place] [Flonase 2 spray EA NOSTRIL DAILY PRN 04/28/19 10/27/19 Nasal [place]] Methocarbamol [Robaxin-750] 750 mg PO BID 04/28/19 10/27/19 Albuterol Sulfate [Ventolin HFA] 1 - 2 puff INHALATION RT-Q6H PRN 08/09/19 10/27/19 Nystatin 100,000 Unit/ml Susp 500,000 unit PO QID 09/04/19 10/27/19 [Mycostatin Oral Susp] Diclofenac Sodium Gel [Voltaren 2 gm TOPICAL QID 10/27/19 10/27/19 Gel] Previous Rx's Medication Instructions Recorded rOPINIRole HCL [Requip] 0.25 mg PO TID #90 tab 01/31/18 PARoxetine [Paxil] 40 mg PO DAILY tab 05/09/18 Nicotine 21Mg/24Hr Patch [Habitrol] 1 patch TRANSDERM DAILY #30 patch 11/26/18 hydroCHLOROthiazide [Hydrodiuril] 25 mg PO DAILY tab 11/26/18 Folic Acid 1 mg PO DAILY #30 tab 05/02/19 busPIRone HCl [Buspar] 10 mg PO TID #90 tab 05/02/19 Amoxic-Pot Clav 875-125Mg 1 tab PO Q12HR 10 Days #20 tab 10/27/19 [Augmentin 875-125] polyethylene glycoL 3350 [Miralax] 17 gm PO DAILY #7 packet 10/27/19 Magnesium Oxide [Mag-Ox] 400 mg PO BID #60 tab 10/31/19 Melatonin 5 mg PO HS tablet 10/31/19 Sennosides-Docusate Sodium 1 each PO BID tab 10/31/19 [Senokot-S] polyethylene glycoL 3350 [Miralax] 17 gm PO DAILY powd.pack 10/31/19 Allergies Allergy/AdvReac Type Severity Reaction Status Date / Time baclofen AdvReac URINARY Verified 01/25/20 11:00 ISSUES dexamethasone [From Decadron] AdvReac "THOMPSON Verified 01/25/20 11:00 SKIN"/DEHYDRATION Review of Systems ROS Statement: Those systems with pertinent positive or pertinent negative responses have been documented in the HPI. ROS Other: All systems not noted in ROS Statement are negative. Past Medical History Past Medical History: Asthma, Cancer, COPD, Eye Disorder, Fibromyalgia, GERD/Reflux, Hearing Disorder / Deafness, Hypertension, Memory Impairment, Neurologic Disorder, Osteoarthritis (OA), Pneumonia, Syncope Additional Past Medical History / Comment(s): MS relapsing/remitting type, chronic bilateral eye pain/optic neuritis/ poor vision, cataracts bilaterally, chronic occipital neuralgia, osteoporosis, RLS, chronic hypoxic respiratory failure with home oxygen 2L/NC prn, chronic bronchitis, immunocompromised, elevated blood sugar with steroid use, uterine cancer with hysterectomy/radiation, heart murmur, mild cognitive impairment, chronic vertigo, falls, rheumatic fever as child, tinnitis bilaterally, allergic rhinitis. History of Any Multi-Drug Resistant Organisms: None Reported Past Surgical History: Bladder Surgery, Heart Catheterization, Hysterectomy Additional Past Surgical History / Comment(s): Nerve blocks, bladder suspension. Past Anesthesia/Blood Transfusion Reactions: No Reported Reaction Additional Past Anesthesia/Blood Transfusion Reaction / Comment(s): mild clausterphobia Past Psychological History: Anxiety, Depression Smoking Status: Current every day smoker Past Alcohol Use History: Rare Past Drug Use History: None Reported - Past Family History Mother Family Medical History: CVA/TIA, Myocardial Infarction ([place]) Additional Family Medical History / Comment(s): Mother is alive at age 75 with history of brain aneurysm, 3 strokes and 2 myocardial infarctions. Brain an eurysms run on mother's side of family Father Additional Family Medical History / Comment(s): Father at age 72 from a cardiac arrest thought to be due to a myocardial infarction. Sister(s) Additional Family Medical History / Comment(s): Patient has 2 sisters with no major medical problems. Patient does not have any brothers. Patient has 2 adult children with no major medical problems. Patient is only family member with MS. General Exam Limitations: no limitations General appearance: alert, in no apparent distress Head exam: Present: atraumatic, normocephalic, normal inspection Eye exam: Present: normal appearance, PERRL, EOMI. Absent: scleral icterus, conjunctival injection, periorbital swelling ENT exam: Present: normal exam, mucous membranes moist Neck exam: Present: normal inspection. Absent: tenderness, meningismus, lymphadenopathy Respiratory exam: Present: normal lung sounds bilaterally. Absent: respiratory distress, wheezes, rales, rhonchi, stridor Cardiovascular Exam: Present: regular rate, normal rhythm, normal heart sounds. Absent: systolic murmur, diastolic murmur, rubs, gallop, clicks Extremities exam: Present: tenderness (Generalized tenderness to the anterior left knee as well as the tib-fib area.), normal capillary refill (Capillary refill less than 2 seconds, DP pulse 2+ in the left lower extremity.), other (Patient does have mild ecchymosis noted to the left knee as well as the anterior tib-fib.). Absent: full ROM (Patient has 45 flexion of the left knee, full extension.), pedal edema, joint swelling, calf tenderness Course Vital Signs 01/25/20 10:57 Temperature 98.5 F Pulse Rate 93 Respiratory 18 Rate Blood Pressure 124/77 O2 Sat by Pulse 95 Oximetry Medical Decision Making - Medical Decision Making X-ray of the knee and tib-fib are negative for acute fracture. Patient does have suprapatellar joint effusion. She was wrapped with an Anant wrap. Patient was not given a knee immobilizer given I was concerned this could increase risk of falls. Patient will follow-up with orthopedics. Her refill of Percocet is tomorrow and in the meantime she will take Tylenol for pain. She will return here for any worsening symptoms. Disposition Clinical Impression: Knee effusion, left Disposition: HOME SELF-CARE Condition: Good Instructions (If sedation given, give patient instructions): Knee Pain (ED) Additional Instructions: Please take Tylenol and Motrin for pain. Take your Percocet as directed. Follow-up with orthopedics in one to 2 days. If you have any worsening symptoms return to the emergency room. Is patient prescribed a controlled substance at d/c from ED?: No Referrals: Kilo Tabares MD [Primary Care Provider] - 1-2 days Dante Inman MD [STAFF PHYSICIAN] - 1-2 days Time of Disposition: 12:18
--- NOTE | 2020-01-25 11:48 | XR ---
EXAMINATION TYPE: XR tibia fibula LT DATE OF EXAM: 01/25/2020 CLINICAL HISTORY: pain TECHNIQUE: AP and lateral images of the left tibia and fibula are obtained. COMPARISON: None. FINDINGS: There is no acute fracture/dislocation evident. The joint spaces appear narrowed. The ove rlying soft tissue appears unremarkable. IMPRESSION: There is no acute fracture or dislocation seen. ICD 10 NO FRACTURE, INITIAL EVALUATION
--- NOTE | 2020-01-25 11:50 | XR ---
EXAMINATION TYPE: XR knee 4V LT DATE OF EXAM: 01/25/2020 CLINICAL HISTORY: pain TECHNIQUE: Three views of the left knee are obtained. Additional patellar sunrise view obtained. COMPARISON: None. FINDINGS: There is no acute fracture/dislocation. The tri-compartment joint spaces appear at least moderately narrowed. Bone spur formation seen. Moderate suprapatellar joint effusion. The overlying s oft tissue appears unremarkable. IMPRESSION: There is no acute fracture or dislocation ICD 10 NO FRACTURE, INITIAL EVALUATION
[2020-01-25 12:47] VITALS: BP 127/74; PULSE 81; TEMP 98.7
== END 2020-01-25 12:47 | disposition home or self-care (01) ==
LOC: EC 10:49
DX: S80.02XA Contusion of left knee, initial encounter (principal); I10 Essential (primary) hypertension; J44.9 Chronic obstructive pulmonary disease, unspecified; M19.90 Unspecified osteoarthritis, unspecified site; K21.9 Gastro-esophageal reflux disease without esophagitis; M79.7 Fibromyalgia; G25.81 Restless legs syndrome; H91.90 Unspecified hearing loss, unspecified ear; F41.9 Anxiety disorder, unspecified; F17.200 Nicotine dependence, unspecified, uncomplicated; Z79.82 Long term (current) use of aspirin; Z79.51 Long term (current) use of inhaled steroids; Z79.899 Other long term (current) drug therapy; Z88.8 Allergy status to other drugs, medicaments and biological substances; Z85.42 Personal history of malignant neoplasm of other parts of uterus; W01.198A Fall on same level from slipping, tripping and stumbling with subsequent striking against other object, initial encounter; Y93.01 Activity, walking, marching and hiking; Y92.9 Unspecified place or not applicable
CPT/HCPCS: 73590; 73564; 99283; 96374; J1170

== ENCOUNTER 2020-01-30 02:44 | Inpatient (IN) | payer MEDICARE, OTHER ==
[2020-01-30] MEDS ORDERED: ACETAMINOPHEN TAB 500 MG TAB PO STA (03:00)
[2020-01-30 03:15] LABS: Basophils # (A) 0.1 k/uL (0-0.2); Basophils % (A) 1 %; Eosinophils # (A) 0.2 k/uL (0-0.7); Eosinophils % (A) 1 %; HCT 41.1 % (34.0-46.0); HGB 13.1 gm/dL (11.4-16.0); Hypochromasia Slight; Lymphocytes % (A) 14 %; MCHC 31.7 g/dL (31.0-37.0); MCV 97.7 fL (80.0-100.0); Mean Platelet Volume 8.3; Monocytes # (A) 0.5 k/uL (0-1.0); Monocytes % (A) 4 %; Neutrophils # (A) 11.5 k/uL (1.3-7.7); Neutrophils % (A) 80 %; Platelet Count 230 k/uL (150-450); RBC 4.21 m/uL (3.80-5.40); RDW 13.6 % (11.5-15.5); WBC 14.4 k/uL (3.8-10.6)
--- NOTE | 2020-01-30 03:21 | ED ---
Fever HPI - General Chief Complaint: Fever Stated Complaint: MS Time Seen by Provider: 01/30/20 03:00 Source: patient Mode of arrival: EMS Limitations: physical limitation - History of Present Illness Initial Comments: Hudson is a morbidly obese 54-year-old female with extensive medical history most significant for relapsing remitting MS, COPD, tobacco abuse. Patient presents to ER today via ambulance for evaluation of fever, decreased oral intake, dehydration and MS exacerbation. Patient reports she hasn't been feeling good for 2-3 days. She reports she feels that she's had a low-grade fever but she hasn't checked it at home. She states she hasn't been eating or drinking well and is concerned she is becoming dehydrated. Patient reports that this is leading to an exacerbation of her MS. 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 Patient denies any chest pain, cough or shortness of breath. She denies any abdominal pain nausea or vomiting but states she has no appetite. She denies any lower urinary tract symptoms or change in bowel or bladder habits. - Related Data Home Medications Medication Instructions Recorded Confirmed Aspirin 81 mg PO DAILY 02/20/14 10/27/19 LORazepam [Ativan] 1 mg PO Q8H PRN 02/20/14 10/27/19 Verapamil HCl [Calan] 120 mg PO DAILY 02/20/14 10/27/19 Gabapentin [Neurontin] 1,200 mg PO TID 08/19/16 10/27/19 Butalb/APAP/Caff 50-325-40Mg 1 tab PO Q8H PRN 03/25/17 10/27/19 [Fioricet 50-325-40] oxyCODONE-APAP 10-325MG [Percocet 1 tab PO TID PRN 01/28/18 10/27/19 10-325 mg] Budesonide/Formoterol Fumarate 2 puff INHALATION RT-BID 05/06/18 10/27/19 [Symbicort 160-4.5 Mcg Inhaler] Cholecalciferol [Vitamin D3 (25 2,000 unit PO DAILY 05/07/18 10/27/19 Mcg = 1000 Iu)] Multivitamins, Thera [Multivitamin 1 tab PO DAILY 05/07/18 10/27/19 (formulary)] Pantoprazole Sodium [Protonix] 40 mg PO BID 10/31/18 10/27/19 Ipratropium-Albuterol Nebulize 3 ml INHALATION RT-QID PRN 11/22/18 10/27/19 [Duoneb 0.5 mg-3 mg/3 ml Soln] Memantine [Namenda] 10 mg PO BID 11/22/18 10/27/19 Montelukast [Singulair] 10 mg PO DAILY 11/22/18 10/27/19 Fluticasone Nasal [place] [Flonase 2 spray EA NOSTRIL DAILY PRN 04/28/19 10/27/19 Nasal [place]] Methocarbamol [Robaxin-750] 750 mg PO BID 04/28/19 10/27/19 Albuterol Sulfate [Ventolin HFA] 1 - 2 puff INHALATION RT-Q6H PRN 08/09/19 10/27/19 Nystatin 100,000 Unit/ml Susp 500,000 unit PO QID 09/04/19 10/27/19 [Mycostatin Oral Susp] Diclofenac Sodium Gel [Voltaren 2 gm TOPICAL QID 10/27/19 10/27/19 Gel] Previous Rx's Medication Instructions Recorded rOPINIRole HCL [Requip] 0.25 mg PO TID #90 tab 01/31/18 PARoxetine [Paxil] 40 mg PO DAILY tab 05/09/18 Nicotine 21Mg/24Hr Patch [Habitrol] 1 patch TRANSDERM DAILY #30 patch 11/26/18 hydroCHLOROthiazide [Hydrodiuril] 25 mg PO DAILY tab 11/26/18 Folic Acid 1 mg PO DAILY #30 tab 05/02/19 busPIRone HCl [Buspar] 10 mg PO TID #90 tab 05/02/19 Amoxic-Pot Clav 875-125Mg 1 tab PO Q12HR 10 Days #20 tab 10/27/19 [Augmentin 875-125] polyethylene glycoL 3350 [Miralax] 17 gm PO DAILY #7 packet 10/27/19 Magnesium Oxide [Mag-Ox] 400 mg PO BID #60 tab 10/31/19 Melatonin 5 mg PO HS tablet 10/31/19 Sennosides-Docusate Sodium 1 each PO BID tab 10/31/19 [Senokot-S] polyethylene glycoL 3350 [Miralax] 17 gm PO DAILY powd.pack 10/31/19 Allergies Allergy/AdvReac Type Severity Reaction Status Date / Time baclofen AdvReac URINARY Verified 01/30/20 02:56 ISSUES dexamethasone [From Decadron] AdvReac "THOMPSON Verified 01/30/20 02:56 SKIN"/DEHYDRATION Review of Systems ROS Statement: Those systems with pertinent positive or pertinent negative responses have been documented in the HPI. ROS Other: All systems not noted in ROS Statement are negative. Past Medical History Past Medical History: Asthma, Cancer, COPD, Eye Disorder, Fibromyalgia, GERD/Reflux, Hearing Disorder / Deafness, Hypertension, Memory Impairment, Neurologic Disorder, Osteoarthritis (OA), Pneumonia, Syncope Additional Past Medical History / Comment(s): MS relapsing/remitting type, chronic bilateral eye pain/optic neuritis/ poor vision, cataracts bilaterally, chronic occipital neuralgia, osteoporosis, RLS, chronic hypoxic respiratory failure with home oxygen 2L/[place] prn, chronic bronchitis, immunocompromised, elevated blood sugar with steroid use, uterine cancer with hysterectomy/radiation, heart murmur, mild cognitive impairment, chronic vertigo, falls, rheumatic fever as child, tinnitis bilaterally, allergic rhinitis. History of Any Multi-Drug Resistant Organisms: None Reported Past Surgical History: Bladder Surgery, Heart Catheterization, Hysterectomy Additional Past Surgical History / Comment(s): Nerve blocks, bladder suspension. Past Anesthesia/Blood Transfusion Reactions: No Reported Reaction Additional Past Anesthesia/Blood Transfusion Reaction / Comment(s): mild clausterphobia Past Psychological History: Anxiety, Depression Smoking Status: Current every day smoker Past Alcohol Use History: Rare Past Drug Use History: None Reported - Past Family History Mother Family Medical History: CVA/TIA, Myocardial Infarction ([place]) Additional Family Medical History / Comment(s): Mother is alive at age 75 with history of brain aneurysm, 3 strokes and 2 myocardial infarctions. Brain aneurysms run on mother's side of family Father Additional Family Medical History / Comment(s): Father at age 72 from a cardiac arrest thought to be due to a myocardial infarction. Sister(s) Additional Family Medical History / Comment(s): Patient has 2 sisters with no major medical problems. Patient does not have any brothers. Patient has 2 adult children with no major medical problems. Patient is only family member with MS. General Exam - General Exam Comments Initial Comments: Physical Exam GENERAL: Morbidly obese female, appears dehydrated, no acute distress HENT: Normocephalic, Atraumatic. EYES: PERRL, EOMI PULMONARY: On supplemental oxygen Unlabored respirations. No audible rales rhonchi or wheezing was noted. CARDIOVASCULAR: There is a regular rate and rhythm without any murmurs gallops or rubs. ABDOMEN: Soft and nontender with normal bowel sounds. SKIN: Skin is clear with no lesions or rashes and otherwise unremarkable. : Deferred NEUROLOGIC: Patient is alert and oriented x3. Moving all extremities spontaneously MUSCULOSKELETAL: Normal extremities with adequate strength and full range of motion. No lower extremity swelling or edema. No calf tenderness. PSYCHIATRIC: Normal psychiatric evaluation. Limitations: physical limitation Course Vital Signs 01/30/20 01/30/20 01/30/20 02:46 02:59 04:00 Temperature 100.1 F H 99.5 F Pulse Rate 103 H 98 Respiratory 18 18 18 Rate Blood Pressure 115/72 114/64 O2 Sat by Pulse 86 L 89 L Oximetry Medical Decision Making - Medical Decision Making Patient was seen and evaluated history is obtained from patient Vital signs were reviewed patient is borderline febrile A septic workup was initiated IV fluids were ordered patient did receive 500 mL IV normal saline prior to arrival in the emergency department Chest x-ray is no signs of pneumonia Urinalysis no signs of UTI Labs reveal mild leukocytosis, transaminitis of uncertain etiology High-dose Solu-Medrol was ordered CT abdomen and pelvis was ordered Patient care was discussed with Dr. Martinez who agrees with plan for admission for fever of uncertain etiology and MS exacerbation, recommends COVID swab prior to admission - Lab Data Result diagrams: 01/30/20 03:06 01/30/20 03:06 Lab Results 01/30/20 01/30/20 01/30/20 Range/Units 03:06 03:06 03:06 WBC 14.4 H (3.8-10.6) k/uL RBC 4.21 (3.80-5.40) m/uL Hgb 13.1 (11.4-16.0) gm/dL Hct 41.1 (34.0-46.0) % MCV 97.7 (80.0-100.0) fL MCH 31.0 (25.0-35.0) pg MCHC 31.7 (31.0-37.0) g/dL RDW 13.6 (11.5-15.5) % Plt Count 230 (150-450) k/uL Neutrophils % 80 % Lymphocytes % 14 % Monocytes % 4 % Eosinophils % 1 % Basophils % 1 % Neutrophils # 11.5 H (1.3-7.7) k/uL Lymphocytes # 2.0 (1.0-4.8) k/uL Monocytes # 0.5 (0-1.0) k/uL Eosinophils # 0.2 (0-0.7) k/uL Basophils # 0.1 (0-0.2) k/uL Hypochromasia Slight PT 11.6 (9.0-12.0) sec INR 1.1 (<1.2) APTT 23.6 (22.0-30.0) sec Sodium (137-145) mmol/L Potassium (3.5-5.1) mmol/L Chloride (98-107) mmol/L Carbon Dioxide (22-30) mmol/L Anion Gap mmol/L BUN (7-17) mg/dL Creatinine (0.52-1.04) mg/dL Est GFR (CKD-EPI)AfAm (>60 ml/min/1.73 sqM) Est GFR (CKD-EPI)NonAf (>60 ml/min/1.73 sqM) Glucose (74-99) mg/dL Plasma Lactic Acid Adalid (0.7-2.0) mmol/L Calcium (8.4-10.2) mg/dL Total Bilirubin (0.2-1.3) mg/dL AST (14-36) U/L ALT (4-34) U/L Alkaline Phosphatase (38-126) U/L Creatine Kinase (30-135) U/L Total Protein (6.3-8.2) g/dL Albumin (3.5-5.0) g/dL Urine Color Yellow Urine Appearance Clear (Clear) Urine pH 6.5 (5.0-8.0) Ur Specific [place] 1.011 (1.001-1.035) Urine Protein Negative (Negative) Urine Glucose (UA) Negative (Negative) Urine Ketones Negative (Negative) Urine Blood Negative (Negative) Urine Nitrite Negative (Negative) Urine Bilirubin Negative (Negative) Urine Urobilinogen <2.0 (<2.0) mg/dL Ur Leukocyte Esterase Negative (Negative) 01/30/20 01/30/20 Range/Units 03:06 03:06 WBC (3.8-10.6) k/uL RBC (3.80-5.40) m/uL Hgb (11.4-16.0) gm/dL Hct (34.0-46.0) % MCV (80.0-100.0) fL MCH (25.0-35.0) pg MCHC (31.0-37.0) g/dL RDW (11.5-15.5) % Plt Count (150-450) k/uL Neutrophils % % Lymphocytes % % Monocytes % % Eosinophils % % Basophils % % Neutrophils # (1.3-7.7) k/uL Lymphocytes # (1.0-4.8) k/uL Monocytes # (0-1.0) k/uL Eosinophils # (0-0.7) k/uL Basophils # (0-0.2) k/uL Hypochromasia PT (9.0-12.0) sec INR (<1.2) APTT (22.0-30.0) sec Sodium 134 L (137-145) mmol/L Potassium 3.2 L (3.5-5.1) mmol/L Chloride 91 L (98-107) mmol/L Carbon Dioxide 38 H (22-30) mmol/L Anion Gap 5 mmol/L BUN 8 (7-17) mg/dL Creatinine 0.49 L (0.52-1.04) mg/dL Est GFR (CKD-EPI)AfAm >90 (>60 ml/min/1.73 sqM) Est GFR (CKD-EPI)NonAf >90 (>60 ml/min/1.73 sqM) Glucose 126 H (74-99) mg/dL Plasma Lactic Acid [place]alid 1.2 (0.7-2.0) mmol/L Calcium 7.9 L (8.4-10.2) mg/dL Total Bilirubin 0.6 (0.2-1.3) mg/dL AST 205 H (14-36) U/L ALT 95 H (4-34) U/L Alkaline Phosphatase 83 (38-126) U/L Creatine Kinase 68 (30-135) U/L Total Protein 5.5 L (6.3-8.2) g/dL Albumin 3.6 (3.5-5.0) g/dL Urine Color Urine Appearance (Clear) Urine pH (5.0-8.0) Ur Specific [place] (1.001-1.035) Urine Protein (Negative) Urine Glucose (UA) (Negative) Urine Ketones (Negative) Urine Blood (Negative) Urine Nitrite (Negative) Urine Bilirubin (Negative) Urine Urobilinogen (<2.0) mg/dL Ur Leukocyte Esterase (Negative) - EKG Data -: EKG Interpreted by Me EKG Comments: EKG was obtained and tachycardia, EKG was obtained at 3:27 AM, rate is 102 rhythm is sinus tachycardia, normal axis, normal intervals, WI 158, QRS 76, QTC of 490 there are no acute ST elevations or depressions there is no evidence of acute ischemia or infarction Disposition Clinical Impression: Multiple sclerosis, Fever of unknown origin, Transaminitis, Obesity, Hypoxia, SIRS (systemic inflammatory response syndrome) Disposition: ADMITTED IP TO THIS HOSP Condition: Serious Is patient prescribed a controlled substance at d/c from ED?: No Referrals: Kilo Tabares MD [Primary Care Provider] - 1-2 days
[2020-01-30 03:23] LABS: INR 1.1 (<1.2); Prothrombin Time 11.6 sec (9.0-12.0)
[2020-01-30] MEDS: SODIUM CHLORIDE 0.9% 500 ML 500 ML IV SCH ×3 (03:23→05:19)
[2020-01-30] MEDS: SODIUM CHLORIDE 0.9% 1,000 ML IV SCH ×4 (03:23→21:32)
[2020-01-30 03:24] LABS: Partial Thromboplastin Time 23.6 sec (22.0-30.0)
[2020-01-30 03:27] LABS: ALT 95 U/L (4-34); AST 205 U/L (14-36); African American GFR (CKD) >90 (>60 ml/min/1.73 sqM); Albumin 3.6 g/dL (3.5-5.0); Alkaline Phosphatase 83 U/L (38-126); Blood Urea Nitrogen 8 mg/dL (7-17); Calcium 7.9 mg/dL (8.4-10.2); Chloride 91 mmol/L (98-107); Creatine Kinase 68 U/L (30-135); Glucose 126 mg/dL (74-99); Non-African American GFR(CKD) >90 (>60 ml/min/1.73 sqM); Potassium 3.2 mmol/L (3.5-5.1); Sodium 134 mmol/L (137-145); Total Bilirubin 0.6 mg/dL (0.2-1.3); Total Protein 5.5 g/dL (6.3-8.2)
[2020-01-30 03:32] LABS: Anion Gap 5 mmol/L; Carbon Dioxide 38 mmol/L (22-30)
--- NOTE | 2020-01-30 03:44 | XR ---
EXAMINATION TYPE: XR chest 2V DATE OF EXAM: 01/30/2020 COMPARISON: 10/28/2019 HISTORY: Fever TECHNIQUE: 2 views FINDINGS: There is no heart failure nor confluent pneumonic infiltrate. Costophrenic angles are clear . Bony thorax is intact. IMPRESSION: No active cardiopulmonary disease. No change.
[2020-01-30 05:22] LABS: Appearance,Urine Clear (Clear); Bilirubin,Urine Negative (Negative); Blood,Urine Negative (Negative); Color,Urine Yellow; Glucose,Urine (UA) Negative (Negative); Ketones,Urine Negative (Negative); Leukocyte Esterase,Urine Negative (Negative); Nitrite,Urine Negative (Negative); PH, Urine 6.5 (5.0-8.0); Protein,Urine Negative (Negative); Specific Gravity,Urine 1.011 (1.001-1.035); Urobilinogen,Urine <2.0 mg/dL (<2.0)
[2020-01-30] MEDS ORDERED: NALOXONE 0.4 MG/ML 1 ML VIAL IV PRN (06:09)
[2020-01-30] MEDS ORDERED: ACETAMINOPHEN TAB 325 MG TAB PO PRN (06:09)
[2020-01-30] MEDS ORDERED: ONDANSETRON 4 MG/2 ML VIAL IVP PRN (06:09)
[2020-01-30] MEDS ORDERED: IBUPROFEN 400 MG TAB PO PRN (06:09)
[2020-01-30] MEDS ORDERED: Potassium Replacement Protocol 1 EACH MISC MISCELLANE PRN (06:38)
--- NOTE | 2020-01-30 07:10 | CT ---
EXAMINATION TYPE: CT abdomen pelvis w con DATE OF EXAM: 01/30/2020 HISTORY: Abdominal pain CT DLP: 1910.5mGycm Automated Exposure Control for Dose Reduction was Utilized. CONTRAST: CT scan of the abdomen and pelvis is performed without oral but with IV Contrast, patient injected wi th 100 mL of Isovue 300. COMPARISON: CT abdomen and pelvis October 27, 2019 FINDINGS: LUNG BASES: Right basilar linear scarring and/or atelectasis. LIVER/GB: Liver is heterogeneously hypodense consistent with diffuse fatty infiltration. Simple appea ring 2.0 cm thin-walled cyst left hepatic dome redemonstrated. Slightly prominent right hepatic lobe. PANCREAS: No significant abnormality is seen. SPLEEN: No significant abnormality is seen. ADRENALS: No significant abnormality is seen. KIDNEYS: Symmetric cortical medullary uptake and excretion without hydronephrosis seen bilaterally. BOWEL: Exam slightly suboptimal secondary to lack of enteric contrast. No suspicious small and large bowel dilatation noted. Appendix is not dilated from base of cecum. UTERUS/ADNEXA: Uterus surgically absent or markedly atrophic. LYMPH NODES: No greater than 1cm abdominal or pelvic lymph nodes are appreciated. OSSEOUS STRUCTURES: Mild facet arthropathy lower lumbar spine. OTHER: No significant additional abnormality is seen. IMPRESSION: No new or acute findings are seen to account for patient's clinical symptoms.
[2020-01-30] MEDS: POTASSIUM CHLORIDE ER 20 MEQ TAB.ER PO SCH ×2 (08:41→10:06)
[2020-01-30 08:51] LABS: Glucose,Whole Blood 147 mg/dL (75-99)
[2020-01-30] MEDS ORDERED: ALBUTEROL HFA INHALER INHALATION PRN (09:25)
[2020-01-30] MEDS ORDERED: FLUTICASONE 50MCG/SPRAY NASAL 16GM EA NOSTRIL PRN (09:26)
[2020-01-30] MEDS ORDERED: DOCUSATE 100 MG CAP PO PRN (09:54)
--- NOTE | 2020-01-30 10:10 | P.HPIM ---
History of Present Illness H&P Date: 01/30/20 Chief Complaint: fever This is a 54 year old female patient of Dr. Tabares and Dr. Ramirez with a past medical history of multiple sclerosis, hypertension, hypertensive cardiovascular disease with left ventricular hypertrophy, GERD, COPD, osteoporosis, uterine cancer, chronic hypoxic respiratory failure on home 02 at 2L nasal cannula, and tobacco use and dependency. She has had multiple admissions for acute exacerbation of her multiple sclerosis. Patient reports that she has not been feeling well for the last 2-3 days and has had a low-grade fever. She also has complaints of her entire body jerking and headaches. Patient also reports that she had fallen recently, she was seen in the emergency department and x-rays were negative, she still has bruising to the left lower [place] area. Patient reports she was at home and she was weak so she decided to call 911. Chest x- ray showed no active cardiopulmonary disease and no change, CT of the abdomen did not show any acute findings. UA was negative for any infection, zabala virus swab pending. She does have mild leukocytosis, WBC 14.4, sodium 134, potassium 3.2, BUN 8, creatinine 0.49, AST 205, ALT 95. Blood cultures pending, she did receive 1 dose of high-dose Solu-Medrol for her MS symptoms. Vital signs show a fever of 100.1, heart rate 103, respiratory rate 18, blood pressure 115/72. Neurology has been consulted. Review of Systems Constitutional: Reports chills, Reports fever, Reports weakness Ears: deny: decreased hearing, ear discharge, earache Ears, nose, mouth and throat: Reports headache, Denies dysphagia, Denies nasal congestion, Denies nasal discharge, Denies sinus pain, Denies sinus pressure, Denies sore throat Cardiovascular: Reports palpitations, Denies chest pain, Denies dyspnea on exertion, Denies edema, Denies irregular heart beat, Denies leg edema, Denies orthopnea, Denies shortness of breath Respiratory: Denies congestion, Denies cough, Denies dyspnea, Denies pain, Denies wheezing Gastrointestinal: Denies abdominal pain, Denies constipation, Denies diarrhea, Denies heartburn, Denies indigestion, Denies nausea, Denies vomiting Genitourinary: Denies dysuria, Denies hematuria, Denies nocturia, Denies urgency, Denies urinary frequency Musculoskeletal: Reports frequent falls, Reports muscle weakness, Denies atrophy, Denies fractures, Denies neck pain, Denies neck stiffness Integumentary: Denies pruritus, Denies rash, Denies sores, Denies wounds Neurological: Reports headaches, Reports weakness, Denies paralysis, Denies paresthesias, Denies tremors Psychiatric: Denies anxiety, Denies confusion, Denies hallucinations, Denies insomnia, Denies irritability, Denies memory loss Endocrine: Reports fatigue, Reports palpitations, Denies flushing, Denies nocturia Hematologic/Lymphatic: Denies lymphadenopathy Past Medical History Past Medical History: Asthma, Cancer, COPD, Eye Disorder, Fibromyalgia, GERD/Reflux, Hearing Disorder / Deafness, Hypertension, Memory Impairment, Neurologic Disorder, Osteoarthritis (OA), Pneumonia, Syncope Additional Past Medical History / Comment(s): MS relapsing/remitting type, chronic bilateral eye pain/optic neuritis/ poor vision, cataracts bilaterally, chronic occipital neuralgia, osteoporosis, RLS, chronic hypoxic respiratory fail ure with home oxygen 2L/NC prn, chronic bronchitis, immunocompromised, elevated blood sugar with steroid use, uterine cancer with hysterectomy/radiation, heart murmur, mild cognitive impairment, chronic vertigo, falls, rheumatic fever as child, tinnitis bilaterally, allergic rhinitis. History of Any Multi-Drug Resistant Organisms: None Reported Past Surgical History: Bladder Surgery, Heart Catheterization, Hysterectomy Additional Past Surgical History / Comment(s): Nerve blocks, bladder suspension. Past Anesthesia/Blood Transfusion Reactions: No Reported Reaction Additional Past Anesthesia/Blood Transfusion Reaction / Comment(s): mild clausterphobia Past Psychological History: Anxiety, Depression Smoking Status: Current every day smoker Past Alcohol Use History: Rare Past Drug Use History: None Reported - Past Family History Mother Family Medical History: CVA/TIA, Myocardial Infarction ([place]) Additional Family Medical History / Comment(s): Mother is alive at age 75 with history of brain aneurysm, 3 strokes and 2 myocardial infarctions. Brain aneurysms run on mother's side of family Father Additional Family Medical History / Comment(s): Father at age 72 from a cardiac arrest thought to be due to a myocardial infarction. Sister(s) Additional Family Medical History / Comment(s): Patient has 2 sisters with no m ajor medical problems. Patient does not have any brothers. Patient has 2 adult children with no major medical problems. Patient is only family member with MS. Medications and Allergies Home Medications Medication Instructions Recorded Confirmed Type Aspirin 81 mg PO DAILY 02/20/14 10/27/19 History LORazepam [Ativan] 1 mg PO Q8H PRN 02/20/14 10/27/19 History Verapamil HCl [Calan] 120 mg PO DAILY 02/20/14 10/27/19 History Gabapentin [Neurontin] 1,200 mg PO TID 08/19/16 10/27/19 History Butalb/APAP/Caff 50-325-40Mg 1 tab PO Q8H PRN 03/25/17 10/27/19 History [Fioricet 50-325-40] oxyCODONE-APAP 10-325MG [Percocet 1 tab PO TID PRN 01/28/18 10/27/19 History 10-325 mg] rOPINIRole HCL [Requip] 0.25 mg PO TID #90 tab 01/31/18 10/27/19 Rx Budesonide/Formoterol Fumarate 2 puff INHALATION RT-BID 05/06/18 10/27/19 History [Symbicort 160-4.5 Mcg Inhaler] Cholecalciferol [Vitamin D3 (25 2,000 unit PO DAILY 05/07/18 10/27/19 History Mcg = 1000 Iu)] Multivitamins, Thera [Multivitamin 1 tab PO DAILY 05/07/18 10/27/19 History (formulary)] PARoxetine [Paxil] 40 mg PO DAILY tab 05/09/18 10/27/19 Rx Pantoprazole Sodium [Protonix] 40 mg PO BID 10/31/18 10/27/19 History Ipratropium-Albuterol Nebulize 3 ml INHALATION RT-QID PRN 11/22/18 10/27/19 History [Duoneb 0.5 mg-3 mg/3 ml Soln] Memantine [Namenda] 10 mg PO BID 11/22/18 10/27/19 History Montelukast [Singulair] 10 mg PO DAILY 11/22/18 10/27/19 History hydroCHLOROthiazide [Hydrodiuril] 25 mg PO DAILY tab 11/26/18 10/27/19 Rx Fluticasone Nasal [place] [Flonase 2 spray EA NOSTRIL DAILY PRN 04/28/19 10/27/19 History Nasal [place]] Methocarbamol [Robaxin-750] 750 mg PO BID 04/28/19 10/27/19 History Folic Acid 1 mg PO DAILY #30 tab 05/02/19 10/27/19 Rx busPIRone HCl [Buspar] 10 mg PO TID #90 tab 05/02/19 10/27/19 Rx Albuterol Sulfate [Ventolin HFA] 1 - 2 puff INHALATION RT-Q6H PRN 08/09/19 10/27/19 History Nystatin 100,000 Unit/ml Susp 500,000 unit PO QID 09/04/19 10/27/19 History [Mycostatin Oral Susp] Ascorbic Acid [Vitamin C] 1,000 mg PO DAILY 01/30/20 01/30/20 History Docusate [Colace] 100 mg PO DAILY PRN 01/30/20 01/30/20 History Zinc Gluconate [Zinc] 25 mg PO DAILY 01/30/20 01/30/20 History Allergies Allergy/AdvReac Type Severity Reaction Status Date / Time baclofen AdvReac URINARY Verified 01/30/20 02:56 ISSUES dexamethasone [From Decadron] AdvReac "THOMPSON Verified 01/30/20 02:56 SKIN"/DEHYDRATION Physical Exam Vitals: Vital Signs Temp Pulse Resp BP Pulse Ox 01/30/20 04:00 99.5 F 98 18 114/64 89 L 01/30/20 02:59 18 01/30/20 02:46 100.1 F H 103 H 18 115/72 86 L Intake and Output 01/29/20 01/30/20 01/30/20 22:59 06:59 14:59 Other: Weight 105.687 kg morbidly obese 54 year old female, resting on stretcher in no acute distress - Constitutional General appearance: cooperative, morbidly obese, no acute distress - EENT Eyes: EOMI, PERRLA, normal appearance ENT: hearing grossly normal, normal oropharynx - Neck Neck: no lymphadenopathy, normal ROM, no thyromegaly - Respiratory Respiratory: bilateral: CTA, negative: diminished, rales, rhonchi, wheezing - Cardiovascular Rhythm: regular Heart sounds: normal: S1, S2 - Gastrointestinal General gastrointestinal: no distended, no hepatomegaly, normal bowel sounds, no organomegaly, no tenderness - Integumentary Integumentary: normal, normal turgor, no rash, no ulcer - Neurologic Neurologic: CNII-XII intact - Musculoskeletal Musculoskeletal: generalized weakness - Psychiatric Psychiatric: A&O x's 3, appropriate affect, intact judgment & insight Results CBC & Chem 7: 01/30/20 03:06 01/30/20 03:06 Labs: Abnormal Lab Results - Last 24 Hours (Table) 01/30/20 01/30/20 Range/Units 03:06 03:06 WBC 14.4 H (3.8-10.6) k/uL Neutrophils # 11.5 H (1.3-7.7) k/uL Sodium 134 L (137-145) mmol/L Potassium 3.2 L (3.5-5.1) mmol/L Chloride 91 L (98-107) mmol/L Carbon Dioxide 38 H (22-30) mmol/L Creatinine 0.49 L (0.52-1.04) mg/dL Glucose 126 H (74-99) mg/dL Calcium 7.9 L (8.4-10.2) mg/dL AST 205 H (14-36) U/L ALT 95 H (4-34) U/L Total Protein 5.5 L (6.3-8.2) g/dL Assessment and Plan Plan: 1. Fever of uncertain etiology with mild leukocytosis. CT abdomen and pelvis completed, no acute findings to account for patients symptoms, UA was clear, chest x-ray completed and no signs of pneumonia. Covid swab is pending, blood cultures are pending 2. Acute MS exacerbation with history of relapsing remitting MS. Received 1 dose of Solu-Medrol 500mg IVPB, will consult with neurology, continue with Robaxin 750 mg twice a day. 3. Transaminitis. Uncertain etiology 4. Hypertension and hypertensive cardiovascular disease. On hydrochlorot hiazide 25 mg daily and verapamil 120 mg daily. 5. Intermittent asthma and COPD. Continue Symbicort and albuterol 6. Fibromyalgia. Continue with gabapentin 1200 mg 3 times a day along with Percocet 10/325 mg 1 tab 3 times a day when necessary 7. Generalized anxiety disorder. Continue with Ativan 1 mg every 8 hours as needed along with BuSpar 10 mg 3 times a day and Paxil 40 mg daily. 8. Chronic tobacco use and dependence. Smoking cessation and counseling an increased risk of CAD, CVA, and malignancy. Continue nicotine patch 21 mg once every day. 9. Mild cognitive impairment. Continue patient on Namenda 10 mg orally twice every day. 10. Restless leg syndrome. Continue Requip 0.25 mg 3 times daily 11. DVT prophylaxis. Lovenox 40 mg subcutaneously every 24 hours. 12. GERD and GI prophylaxis. Continue with Protonix 40 mg orally twice every day. The above impression and plan of care have been discussed and directed by signing physician. Astrid Mckeon nurse practitioner acting as scribe for signing physician.
[2020-01-30] MEDS: oxyCODONE-APAP 10-325MG 1 EACH TAB PO PRN ×2 (10:55→17:02)
[2020-01-30] MEDS: busPIRone HCl 10 MG TAB PO SCH ×2 (15:29→21:31)
[2020-01-30] MEDS: GABAPENTIN 400 MG CAP PO SCH ×2 (15:29→21:31)
[2020-01-30] MEDS: LORazepam 1 MG TAB PO PRN (15:29)
[2020-01-30] MEDS: IPRATROPIUM-ALBUTEROL 3 ML NEB INHALATION PRN ×2 (15:30→19:48)
[2020-01-30] MEDS: BUTALB/APAP/CAFF 50-325-40MG TAB PO PRN (15:30)
[2020-01-30] MEDS: PANTOPRAZOLE 40 MG TABLET PO SCH (17:00)
[2020-01-30] MEDS: methocarbamoL 750 MG TAB PO SCH ×2 (17:00→21:30)
[2020-01-30 17:09] LABS: Glucose,Whole Blood 184 mg/dL (75-99)
--- NOTE | 2020-01-30 18:48 | P.CNNES ---
History of Present Illness Consult date: 01/30/20 Requesting physician: Zan Minor Reason for Consult: Multiple Sclerosis History of Present Illness: This is a 54-year-old female with medical history of relapsing-remitting multiple sclerosis, hypertension, uterine cancer, tobacco abuse that presented to the emergency department on 01/30/2020 at 2:44am for evaluation of fever, dehydration and decreased oral intake and concern for multiple scopes exacerbation. She has multiple hospital visits regarding her exacerbation of MS. She hasn't been feeling good for the last 2-3 days. She states she hasn't been eating or drinking. Patient reports the this usually leads to her exacerbation of her MS. She she felt like she had a low-grade fever. She does have some dry cough for the past couple days. She is complaining of her entire body jerking and that she's having headaches. The whole body jerks were intermittent for past 2-3 days and happen when she has a fever typical for her Multiple Sclerosis. Currently its resolved. 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 Patient states she had a fall about one weeks ago and it was a mechanical fall where her left foot got tangled. She did hit her head she believed but denies loss of consciousness. She bruised the left lower [place] area. Regarding her headache they are on bilateral frontal and occipital region and felt it was a banging headache for the past 2-3 days. Denies photophobia, phonophobia. Has mild nausea and no vomitting. She states her headache resolved and these happens when she has a fever. She denies of diplopia or dysarthria. Workup in the hospital consisted of: Initial vital signs was a blood pressure of 115/72, heart rate of 103, respiratory of 18, temperature of 100.1 Fahrenheit oral, pulse ox of 86 L room air. Chest x-ray was was reported as no active cardiopulmonary disease. No change. EKG was reported as sinus tachycardia, ventricular rate of 102. Cannot rule out inferior infarct, age undetermined. CT abdomen and pelvis is performed and was reported as no acute or new finding as seen to account for patient's clinical history. In the ED and she was given 1 time dose of Solu-Medrol 500 mg. She follows up with Dr. Ramirez as an outpatient. She was diagnosed with multiple sclerosis about 7 years ago she's been having recurrent falls in the past as well. She was last seen by the neuro hospitalist at the [facility] on 08/09/2019 for MS exacerbation, community acquired versus viral pneumonia. During that visit was the thought her generalized weakness likely related to acute febrile illness. Was thought the patient likely had MS exacerbation. Patient has a tried Copaxone and Tecfidera. She had that severe side effects from Tecfidera. She is currently on Ocrevus, she received her first dose in July 2018 and last dose was on October 2019. Review of Systems Review of system: The 12 point system was reviewed and apparent positive and negative per HPI. Past Medical History Past Medical History: Asthma, Cancer, COPD, Eye Disorder, Fibromyalgia, GERD/Reflux, Hearing Disorder / Deafness, Hypertension, Memory Impairment, Neurologic Disorder, Osteoarthritis (OA), Pneumonia, Syncope Additional Past Medical History / Comment(s): MS relapsing/remitting type, chronic bilateral eye pain/optic neuritis/ poor vision, cataracts bilaterally, chronic occipital neuralgia, osteoporosis, RLS, chronic hypoxic respiratory failure with home oxygen 2L/[place] prn, chronic bronchitis, immunocompromised, elevated blood sugar with steroid use, uterine cancer with hysterectomy/radiation, heart murmur, mild cognitive impairment, chronic vertigo, falls, rheumatic fever as child, tinnitis bilaterally, allergic rhinitis. History of Any Multi-Drug Resistant Organisms: None Reported Past Surgical History: Bladder Surgery, Heart Catheterization, Hysterectomy Additional Past Surgical History / Comment(s): Nerve blocks, bladder suspension. Past Anesthesia/Blood Transfusion Reactions: No Reported Reaction Additional Past Anesthesia/Blood Transfusion Reaction / Comment(s): mild clausterphobia Past Psychological History: Anxiety, Depression Smoking Status: Current every day smoker Past Alcohol Use History: Rare Past Drug Use History: None Reported - Past Family History Mother Family Medical History: CVA/TIA, Myocardial Infarction ([place]) Additional Family Medical History / Comment(s): Mother is alive at age 75 with history of brain aneurysm, 3 strokes and 2 myocardial infarctions. Brain aneurysms run on mother's side of family Father Additional Family Medical History / Comment(s): Father at age 72 from a cardiac arrest thought to be due to a myocardial infarction. Sister(s) Additional Family Medical History / Comment(s): Patient has 2 sisters with no major medical problems. Patient does not have any brothers. Patient has 2 adult children with no major medical problems. Patient is only family member with MS. Medications and Allergies Home Medications Medication Instructions Recorded Confirmed Type Aspirin 81 mg PO DAILY 02/20/14 01/30/20 History LORazepam [Ativan] 1 mg PO Q8H PRN 02/20/14 01/30/20 History Verapamil HCl [Calan] 120 mg PO DAILY 02/20/14 01/30/20 History Gabapentin [Neurontin] 1,200 mg PO TID 08/19/16 01/30/20 History Butalb/APAP/Caff 50-325-40Mg 1 tab PO Q8H PRN 03/25/17 01/30/20 History [Fioricet 50-325-40] oxyCODONE-APAP 10-325MG [Percocet 1 tab PO TID PRN 01/28/18 01/30/20 History 10-325 mg] rOPINIRole HCL [Requip] 0.25 mg PO TID #90 tab 01/31/18 01/30/20 Rx Budesonide/Formoterol Fumarate 2 puff INHALATION RT-BID 05/06/18 01/30/20 History [Symbicort 160-4.5 Mcg Inhaler] Cholecalciferol [Vitamin D3 (25 2,000 unit PO DAILY 05/07/18 01/30/20 History Mcg = 1000 Iu)] Multivitamins, Thera [Multivitamin 1 tab PO DAILY 05/07/18 01/30/20 History (formulary)] PARoxetine [Paxil] 40 mg PO DAILY tab 05/09/18 01/30/20 Rx Pantoprazole Sodium [Protonix] 40 mg PO BID 10/31/18 01/30/20 History Ipratropium-Albuterol Nebulize 3 ml INHALATION RT-QID PRN 11/22/18 01/30/20 History [Duoneb 0.5 mg-3 mg/3 ml Soln] Memantine [Namenda] 10 mg PO BID 11/22/18 01/30/20 History Montelukast [Singulair] 10 mg PO DAILY 11/22/18 01/30/20 History hydroCHLOROthiazide [Hydrodiuril] 25 mg PO DAILY tab 11/26/18 01/30/20 Rx Fluticasone Nasal [place] [Flonase 2 spray EA NOSTRIL DAILY PRN 04/28/19 01/30/20 History Nasal [place]] Methocarbamol [Robaxin-750] 750 mg PO TID PRN 04/28/19 01/30/20 History Folic Acid 1 mg PO DAILY #30 tab 05/02/19 01/30/20 Rx busPIRone HCl [Buspar] 10 mg PO TID #90 tab 05/02/19 01/30/20 Rx Albuterol Sulfate [Ventolin HFA] 1 - 2 puff INHALATION RT-Q6H PRN 08/09/19 01/30/20 History Nystatin 100,000 Unit/ml Susp 500,000 unit PO QID 09/04/19 01/30/20 History [Mycostatin Oral Susp] Ascorbic Acid [Vitamin C] 1,000 mg PO DAILY 01/30/20 01/30/20 History Docusate [Colace] 100 mg PO DAILY PRN 01/30/20 01/30/20 History Zinc Gluconate [Zinc] 25 mg PO DAILY 01/30/20 01/30/20 History Allergies Allergy/AdvReac Type Severity Reaction Status Date / Time baclofen AdvReac URINARY Verified 01/30/20 09:39 ISSUES dexamethasone [From Decadron] AdvReac "THOMPSON Verified 01/30/20 09:39 SKIN"/DEHYDRATION Physical Examination - Vital Signs Vital Signs: Vital Signs Temp Pulse Pulse Resp BP BP Pulse Ox 01/30/20 15:49 92 01/30/20 15:30 92 01/30/20 14:49 98.5 F 78 18 121/85 94 L 01/30/20 13:34 98.4 F 77 16 121/84 94 L 01/30/20 13:10 98.9 F 84 16 113/89 91 L 01/30/20 12:29 98.9 F 84 16 113/89 91 L 01/30/20 08:00 98.7 F 84 18 122/76 95 01/30/20 04:00 99.5 F 98 18 114/64 89 L 01/30/20 02:59 18 01/30/20 02:46 100.1 F H 103 H 18 115/72 86 L Intake and Output 01/30/20 01/30/20 01/30/20 06:59 14:59 22:59 Other: Weight 105.687 kg 105.687 kg GENERAL: The patient is lying in bed and is not in acute distress. She is curre ntly eating at bedside. CHEST: The heart rate is regular rate rhythm. No murmurs to auscultation. LUNG: Clear to auscultation bilaterally no wheezing noted throughout. Not labored breathing. ABDOMEN/GI: Bowel sounds present in all 4 quadrants. No tenderness to palpation throughout. INTEGUMENTARY: Has erythematous bruise on left [place] area (from fall about 1 week ago). NEUROLOGICAL: Higher mental function: The patient is awake, alert, oriented to self, place and time. Patient is following commands. No aphasia and no neglect. Cranial nerves: The pupils are round, equal and reactive to light and accommodation. Visual schwarz are full to confrontation throughout. Extraocular movement is intact no nystagmus is noted. Facial sensation is normal to touch throughout. The facial strength is normal throughout. Hearing is normal bilaterally to hand rub. Tongue is midline and moved [id number] without any difficulty. No dysarthria is noted. Shoulder shrug is normal bilaterally. Motor: Gait is deferred. The strength is 3+ on left lower extremity proximally and was limited because of pain. Otherwise 4+ to 5- throughout (I felt she had effort related and improved with encouragement). Normal tone and bulk. Cerebellum: Normal finger to nose bilaterally. Sensation: Sensation is normal to touch throughout. Reflexes (right/left): 2+ Plantars are downgoing bilaterally. Results Sodium of 134, potassium 3.2, AST of 205, L2 of 95. White blood cell 14.4 and mostly neutrophilic. Correlation study: PT of 11.6, INR 1.1 and PTT of 23.6. UA was negative for urinary tract infection - Laboratory Findings CBC and BMP: 01/30/20 03:06 01/30/20 03:06 Abnormal Lab Findings: Abnormal Labs 01/30/20 01/30/20 01/30/20 03:06 03:06 08:49 WBC 14.4 H Neutrophils # 11.5 H Sodium 134 L Potassium 3.2 L Chloride 91 L Carbon Dioxide 38 H Creatinine 0.49 L Glucose 126 H POC Glucose (mg/dL) 147 H Calcium 7.9 L AST 205 H ALT 95 H Total Protein 5.5 L 01/30/20 17:07 WBC Neutrophils # Sodium Potassium Chloride Carbon Dioxide Creatinine Glucose POC Glucose (mg/dL) 184 H Calcium AST ALT Total Protein Assessment and Plan Assessment: 54-year-old female with relapsing remitting multiple sclerosis admitted with fever, generalized weakness, decreased oral intake. She also had who body jerks for 2-3 which resolved and feels it typical for her MS. Pseudo-exacerbation of her MS. Likely the fever is the one that is unmask in the old MS lesion. Peripheral neuropathy Morbid obesity History of folate, B6 and vitamin D deficiency. Plan: I will order MRI of the brain and MRI of the C-spine with and without to rule out any MS exacerbation. I will not start the patient on IV Solu-Medrol unless there is new lesions that's enhancing. Rule out pneumonia possibly viral. Regarding the patient peripheral neuropathy as she is on 1200 mg 3 times a day. I feel like that is large dose. We'll defer the management to the her neurologist as an outpatient (Dr. Ramirez). Upon discharge the patient will follow up with her neurologist as an outpatient regarding her MS management. Thank you for the consult. Jayden Javier M.D. Neuro-hospitalist Time with Patient: Greater than 30
[2020-01-30] MEDS: SYMBICORT 160-4.5 MCG INHALER INHALATION SCH (19:49)
[2020-01-30 20:22] LABS: Glucose,Whole Blood 163 mg/dL (75-99)
[2020-01-30] MEDS ORDERED: methocarbamoL 750 MG TAB PO SCH (21:00)
[2020-01-30] MEDS: MAGNESIUM OXIDE 400 MG TAB PO SCH (21:30)
[2020-01-30] MEDS: SENNOSIDES-DOCUSATE SODIUM 1 EACH TAB PO SCH ×2 (21:30→21:36)
[2020-01-30] MEDS: MEMANTINE 10 MG TAB PO SCH (21:31)
[2020-01-30] MEDS: MELATONIN 5 MG TABLET PO SCH (21:31)
[2020-01-31] MEDS: LORazepam 1 MG TAB PO PRN ×4 (00:02→22:45)
[2020-01-31] MEDS: oxyCODONE-APAP 10-325MG 1 EACH TAB PO PRN ×4 (00:03→22:45)
[2020-01-31] MEDS: BUTALB/APAP/CAFF 50-325-40MG TAB PO PRN ×4 (00:03→22:45)
[2020-01-31 06:38] LABS: Glucose,Whole Blood 115 mg/dL (75-99)
[2020-01-31] MEDS: PANTOPRAZOLE 40 MG TABLET PO SCH ×2 (08:01→17:07)
[2020-01-31 08:51] LABS: Basophils % (A) 0 %; Eosinophils % (A) 0 %; HCT 41.4 % (34.0-46.0); HGB 12.7 gm/dL (11.4-16.0); Hypochromasia Moderate; Lymphocytes # (A) 1.5 k/uL (1.0-4.8); Lymphocytes % (A) 12 %; MCH 30.3 pg (25.0-35.0); MCHC 30.6 g/dL (31.0-37.0); MCV 99.1 fL (80.0-100.0); Mean Platelet Volume 8.7; Monocytes # (A) 0.5 k/uL (0-1.0); Monocytes % (A) 4 %; Neutrophils # (A) 10.3 k/uL (1.3-7.7); Neutrophils % (A) 82 %; Platelet Count 223 k/uL (150-450); RBC 4.18 m/uL (3.80-5.40); RDW 13.6 % (11.5-15.5); WBC 12.5 k/uL (3.8-10.6)
[2020-01-31] MEDS: VERAPAMIL 40 MG TAB PO SCH (08:57)
[2020-01-31] MEDS: MEMANTINE 10 MG TAB PO SCH ×2 (08:57→21:20)
[2020-01-31] MEDS: busPIRone HCl 10 MG TAB PO SCH ×3 (08:57→21:20)
[2020-01-31] MEDS: FOLIC ACID 1 MG TAB PO SCH (08:57)
[2020-01-31] MEDS: MAGNESIUM OXIDE 400 MG TAB PO SCH ×2 (08:57→21:20)
[2020-01-31] MEDS: PARoxetine 20 MG TAB PO SCH (08:57)
[2020-01-31] MEDS: hydroCHLOROthiazide 25 MG TAB PO SCH (08:57)
[2020-01-31] MEDS: ENOXAPARIN 40 MG/0.4 ML SYRINGE SQ SCH (08:57)
[2020-01-31] MEDS: MULTIVITAMINS, THERA 1 EACH TAB PO SCH (08:58)
[2020-01-31] MEDS: MONTELUKAST 10 MG TAB PO SCH (08:58)
[2020-01-31] MEDS: ASCORBIC ACID 500 MG TAB PO SCH (08:58)
[2020-01-31] MEDS: ASPIRIN 81 MG PO SCH (08:58)
[2020-01-31] MEDS: NICOTINE 21MG/24HR PATCH TRANSDERM SCH (08:58)
[2020-01-31] MEDS: SENNOSIDES-DOCUSATE SODIUM 1 EACH TAB PO SCH ×2 (08:58→21:20)
[2020-01-31] MEDS: methocarbamoL 750 MG TAB PO SCH ×3 (08:59→21:20)
[2020-01-31] MEDS: polyethylene glycoL 3350 17 GM POWD.PACK PO SCH (08:59)
[2020-01-31] MEDS ORDERED: NON FORMULARY DRUG (Zinc Gluconate 50 MG Tab) PO SCH (09:00)
[2020-01-31] MEDS ORDERED: polyethylene glycoL 3350 17 GM POWD.PACK PO SCH (09:00)
[2020-01-31] MEDS: GABAPENTIN 400 MG CAP PO SCH ×3 (09:00→21:20)
[2020-01-31 09:25] LABS: Poikilocytosis (M) Present; Polychromasia Present
[2020-01-31] MEDS: HYDROmorphone 1 MG/ML 1 ML SYRINGE IVP PRN ×4 (09:35→22:44)
--- NOTE | 2020-01-31 09:44 | US ---
EXAMINATION TYPE: US venous doppler duplex LE LT DATE OF EXAM: 01/31/2020 9:10 AM COMPARISON: US CLINICAL HISTORY: DVT. Patient fell last week on left leg resulting in ecchymosis to left lower leg. SIDE PERFORMED: Left TECHNIQUE: The lower extremity deep venous system is examined utilizing real time linear array sonog beth with graded compression, doppler sonography and color-flow sonography. VESSELS IMAGED: Common Femoral Vein Deep Femoral Vein Greater Saphenous Vein * Femoral Vein Popliteal Vein Small Saphenous Vein * Proximal Calf Veins (* superficial vessels) . There is normal flow, compressibility, vascular waveforms. Left Leg: Negative for DVT IMPRESSION: No evident deep venous thrombosis at or above the left knee
[2020-01-31] MEDS: IPRATROPIUM-ALBUTEROL 3 ML NEB INHALATION PRN ×2 (10:51→20:51)
[2020-01-31] MEDS: SYMBICORT 160-4.5 MCG INHALER INHALATION SCH ×2 (10:51→20:51)
[2020-01-31] MEDS: SODIUM CHLORIDE 0.9% 1,000 ML IV SCH ×2 (11:07→17:08)
--- NOTE | 2020-01-31 11:26 | P.PN ---
Subjective Progress Note Date: 01/31/20 This is a 54 year old female patient of Dr. Tabares and Dr. Ramirez with a past medical history of multiple sclerosis, hypertension, hypertensive cardiovascular disease with left ventricular hypertrophy, GERD, COPD, osteoporosis, uterine cancer, chronic hypoxic respiratory failure on home 02 at 2L nasal cannula, and tobacco use and dependency. She has had multiple admissions for acute exacerbation of her multiple sclerosis. Patient reports that she has not been feeling well for the last 2-3 days and has had a low-grade fever. She also has complaints of her entire body jerking and headaches. Patient also reports that she had fallen recently, she was seen in the emergency department and x-rays were negative, she still has bruising to the left lower [place] area. Patient reports she was at home and she was weak so she decided to call 911. Chest x- ray showed no active cardiopulmonary disease and no change, CT of the abdomen did not show any acute findings. UA was negative for any infection, zabala virus swab pending. She does have mild leukocytosis, WBC 14.4, sodium 134, potassium 3.2, BUN 8, creatinine 0.49, AST 205, ALT 95. Blood cultures pending, she did receive 1 dose of high-dose Solu-Medrol for her MS symptoms. Vital signs show a fever of 100.1, heart rate 103, respiratory rate 18, blood pressure 115/72. Neurology has been consulted. 01/30: patient seen resting in bed this morning. patient complaining of left lower leg pain consistent with her fall and noted hematoma. We'll do Doppler to rule out DVT. Dilaudid ordered for pain control. blood cultures continued to show no growth, , white blood cells 12.5 today. vital signs are stable, patient remains afebrile, pulse rate 84, respiration 18, blood pressure 120/83, pulse ox 97% on 2 L via nasal cannula. COVID-19testing was negative. Neuro continues on the case and MRI is pending at this time. - Constitutional General appearance: cooperative, morbidly obese, no acute distress - EENT Eyes: EOMI, PERRLA, normal appearance ENT: hearing grossly normal, normal oropharynx - Neck Neck: no lymphadenopathy, normal ROM, no thyromegaly - Respiratory Respiratory: bilateral: CTA, negative: diminished throughout lung schwarz - Cardiovascular Rhythm: regular Heart sounds: normal: S1, S2 - Gastrointestinal General gastrointestinal: no distended, no hepatomegaly, normal bowel sounds, no organomegaly, no tenderness - Integumentary Integumentary: normal, normal turgor, no rash, no ulcer - Neurologic Neurologic: CNII-XII intact - Musculoskeletal Musculoskeletal: generalized weakness - Psychiatric Psychiatric: A&O x's 3, appropriate affect, intact judgment & insight Objective - Vital Signs Vital signs: Vital Signs Temp 98.3 F 01/31/20 07:00 Pulse 80 01/31/20 11:07 Resp 18 01/31/20 07:00 BP 120/83 01/31/20 07:00 Pulse Ox 97 01/31/20 07:00 Intake & Output 01/30/20 01/31/20 01/31/20 18:59 06:59 18:59 Weight 105.687 kg Other: Voiding Method Toilet # Voids 1 - Labs CBC & Chem 7: 01/31/20 07:16 01/30/20 03:06 Labs: Abnormal Lab Results - Last 24 Hours (Table) 01/30/20 01/30/20 01/31/20 Range/Units 17:07 20:20 06:35 WBC (3.8-10.6) k/uL MCHC (31.0-37.0) g/dL Neutrophils # (1.3-7.7) k/uL POC Glucose (mg/dL) 184 H 163 H 115 H (75-99) mg/dL 01/31/20 Range/Units 07:16 WBC 12.5 H (3.8-10.6) k/uL MCHC 30.6 L (31.0-37.0) g/dL Neutrophils # 10.3 H (1.3-7.7) k/uL POC Glucose (mg/dL) (75-99) mg/dL Microbiology - Last 24 Hours (Table) 01/30/20 03:06 Blood Culture - Preliminary Blood No Growth after 24 hours 01/30/20 03:06 Blood Culture - Preliminary Blood No Growth after 24 hours Assessment and Plan Assessment: Plan: 1. Fever of uncertain etiology with mild leukocytosis. CT abdomen and pelvis completed, no acute findings to account for patients symptoms, UA was clear, chest x-ray completed and no signs of pneumonia. Covid swab was negative, blood cultures are pending, no growth at this time. 2. Acute MS exacerbation with history of relapsing remitting MS. Received 1 dose of Solu-Medrol 500mg IVPB, will consult with neurology, continue with Robaxin 750 mg twice a day. MRI still pending. 3. Transaminitis. Uncertain etiology 4. Hypertension and hypertensive cardiovascular disease. On hydrochlorothiazide 25 mg daily and verapamil 120 mg daily. 5. Intermittent asthma and COPD. Continue Symbicort and albuterol 6. Fibromyalgia. Continue with gabapentin 1200 mg 3 times a day along with Percocet 10/325 mg 1 tab 3 times a day when necessary 7. Generalized anxiety disorder. Continue with Ativan 1 mg every 8 hours as needed along with BuSpar 10 mg 3 times a day and Paxil 40 mg daily. 8. Chronic tobacco use and dependence. Smoking cessation and counseling an increased risk of CAD, CVA, and malignancy. Continue nicotine patch 21 mg once every day. 9. Mild cognitive impairment. Continue patient on Namenda 10 mg orally twice every day. 10. Restless leg syndrome. Continue Requip 0.25 mg 3 times daily 11. DVT prophylaxis. Lovenox 40 mg subcutaneously every 24 hours. 12. GERD and GI prophylaxis. Continue with Protonix 40 mg orally twice every day. Patient will be admitted to the hospital for minimum of 2 night stay. Impression and plan of care have been directed as dictated by the signing physician. Christina Jacobo nurse practitioner acting as scribe for signing physician.
[2020-01-31 11:38] LABS: Glucose,Whole Blood 134 mg/dL (75-99)
[2020-01-31 11:42] LABS: African American GFR (CKD) 135.9 (60.0-200.0); Albumin 3.6 g/dL (3.80-4.90); Albumin/Globulin Ratio 3.27 (1.60-3.17); Anion Gap 8.1 mmol/L (4.00-12.00); Calcium 7.9 mg/dL (8.7-10.3); Carbon Dioxide 32.9 mmol/L (21.6-31.8); Globulin 1.1 g/dL (1.6-3.3); Non-African American GFR(CKD) 117.3 (60.0-200.0); Potassium 3.4 mmol/L (3.5-5.5); Total Bilirubin 0.3 mg/dL (0.2-1.2); Total Protein 4.7 g/dL (6.2-8.2)
[2020-01-31 16:09] VITALS: BMI 41.3
[2020-01-31 17:09] LABS: Glucose,Whole Blood 120 mg/dL (75-99)
--- NOTE | 2020-01-31 17:50 | MR ---
EXAMINATION TYPE: MR brain wo/w kristina wo DATE OF EXAM: 01/31/2020 COMPARISON: MR brain 11/24/2018 HISTORY: Generalized weakness, Hx of Multiple Sclerosis TECHNIQUE: Multiplanar, multisequence images of the brain and brainstem is performed without and with IV contras t, utilizing 10 mL intravenous Gadavist . FINDINGS: On the T2 and FLAIR images there is a 1.5 cm area of patchy increased signal in the central chioma. The re are scattered small high signal white matter foci in the centrum semiovale bilaterally that measur e up to 7 mm. Most of these are less than 4 mm. The total number is approximately 15. The diffusion images show no evidence of cortical infarct. There is no mass effect nor midline shift. There is no sign of intracranial hemorrhage. Corpus callosum is intact. Sella turcica appears normal . Contrast images show no pathologic enhancement of the brain. There is normal enhancement of the shahrzad ous sinuses. IMPRESSION: White matter lesions as above in the chioma and centrum semiovale bilaterally around the lateral ventri cles. White matter disease and appears improved compared to previous exam of 11/24/2018 with decreased intensity of the pontine signal and also decrease in size and number of the periventricular white ma tter lesions. Cervical spine findings Cervical vertebra have normal alignment. There is mild narrowing of cervical disc spaces throughout t he spine. There is a small posterior disc herniation at C4-5. There is developmentally adequate canal and spinal canal measures 8.5 mm at the narrowest point. Cervical spinal cord has fairly normal sign al pattern. There is no evidence of edema. I see no pathologic enhancement of the cervical spinal cord. There is no evidence of a mass. There is no evidence of bony destructive process. IMPRESSION: Posterior mild disc herniation at C4-5. Small posterior disc bulging at C6-7. No spinal stenosis. No evidence of demyelinating disease of the cervical spinal cord.
--- NOTE | 2020-01-31 18:31 | P.PN ---
Subjective Progress Note Date: 01/31/20 She was seen at bedside and she said that the she continues to feel like her whole body is weak. She denies of any nausea vomiting. Denies of any numbness. She does have a mild dry cough. Denies any fever. Objective - Vital Signs Vital signs: Vital Signs Temp 98.3 F 01/31/20 07:00 Pulse 80 01/31/20 11:07 Resp 18 01/31/20 07:00 BP 120/83 01/31/20 07:00 Pulse Ox 97 01/31/20 07:00 Intake & Output 01/30/20 01/31/20 01/31/20 18:59 06:59 18:59 Weight 105.687 kg 105.687 kg Other: Voiding Method Toilet # Voids 1 1 - Exam GENERAL: The patient is lying in bed and is not in acute distress. She is currently eating at bedside. CHEST: The heart rate is regular rate rhythm. No murmurs to auscultation. LUNG: Clear to auscultation bilaterally no wheezing noted throughout. Not labored breathing. ABDOMEN/GI: Bowel sounds present in all 4 quadrants. No tenderness to palpation throughout. INTEGUMENTARY: Has erythematous bruise on left [place] area (from fall about 1 week ago). NEUROLOGICAL: Higher mental function: The patient is awake, alert, oriented to self, place and time. Patient is following commands. No aphasia and no neglect. Cranial nerves: The pupils are round, equal and reactive to light and accommodation. Visual schwarz are full to confrontation throughout. Extraocular movement is intact no nystagmus is noted. Facial sensation is normal to touch throughout. The facial strength is normal throughout. Tongue is midline and mo ld [id number] without any difficulty. No dysarthria is noted. Shoulder shrug is normal bilaterally. Motor: Gait is deferred. The strength is 3+ on left lower extremity proximally and was limited because of pain. Otherwise 5/5 throughgout (initially was 4+ but with encouragement strength seemed strong. Normal tone and bulk. Cerebellum: Normal finger to nose bilaterally. Sensation: Sensation is normal to touch throughout. Reflexes (right/left): 2+ Plantars are downgoing bilaterally. - Labs CBC & Chem 7: 01/31/20 07:16 01/31/20 07:16 Labs: Abnormal Lab Results - Last 24 Hours (Table) 01/30/20 01/31/20 01/31/20 Range/Units 20:20 06:35 07:16 WBC 12.5 H (3.8-10.6) k/uL MCHC 30.6 L (31.0-37.0) g/dL Neutrophils # 10.3 H (1.3-7.7) k/uL Potassium (3.5-5.5) mmol/L Carbon Dioxide (21.6-31.8) mmol/L Creatinine (0.6-1.5) mg/dL BUN/Creatinine Ratio (12.00-20.00) Ratio POC Glucose (mg/dL) 163 H 115 H (75-99) mg/dL Calcium (8.7-10.3) mg/dL AST (13-35) U/L ALT (8-44) U/L Total Protein (6.2-8.2) g/dL Albumin (3.80-4.90) g/dL Globulin (1.6-3.3) g/dL Albumin/Globulin Ratio (1.60-3.17) g/dL 01/31/20 01/31/20 01/31/20 Range/Units 07:16 11:35 17:06 WBC (3.8-10.6) k/uL MCHC (31.0-37.0) g/dL Neutrophils # (1.3-7.7) k/uL Potassium 3.4 L (3.5-5.5) mmol/L Carbon Dioxide 32.9 H (21.6-31.8) mmol/L Creatinine 0.4 L (0.6-1.5) mg/dL BUN/Creatinine Ratio 30.00 H (12.00-20.00) Ratio POC Glucose (mg/dL) 134 H 120 H (75-99) mg/dL Calcium 7.9 L (8.7-10.3) mg/dL AST 593 H (13-35) U/L ALT 407 H (8-44) U/L Total Protein 4.7 L (6.2-8.2) g/dL Albumin 3.60 L (3.80-4.90) g/dL Globulin 1.1 L (1.6-3.3) g/dL Albumin/Globulin Ratio 3.27 H (1.60-3.17) g/dL Microbiology - Last 24 Hours (Table) 01/30/20 03:06 Blood Culture - Preliminary Blood No Growth after 24 hours 01/30/20 03:06 Blood Culture - Preliminary Blood No Growth after 24 hours Assessment and Plan Assessment: 54-year-old female with relapsing remitting multiple sclerosis admitted with fever, generalized weakness, decreased oral intake. She also had who body jerks for 2-3 which resolved and feels it typical for her MS. Pseudo-exacerbation of her MS. Likely the fever is the one that is unmask in the old MS lesion. Peripheral neuropathy Morbid obesity History of folate, B6 and vitamin D deficiency. Plan: MRI of the brain w/ and w/o: Was reported as white matter lesion in the chioma and centrum semiovale bilaterally around the lateral ventricles. White matter disease and appears improved compared to previous exam of 11/29/2018 with decreased intensity of pontine signal and also decreased in size and number of the periventricular white matter lesion. Contrast images shows no pathological enhancement of the brain. MRI of the C-spine w/ and w/o: Posterior mild disc herniation at the C4-C5. Small posterior disc bulge at the C6-C7. No spinal stenosis. No evidence of demyelinating disease of the cervical spinal cord. Since the patient had no acute the enhanced lesion we will not start the patient on any steroids at. Likely the patient had the underlying infection possibly viral that can unmask the old lesion. Regarding the patient peripheral neuropathy as she is on 1200 mg 3 times a day. I feel like that is large dose. We'll defer the management to the her neurologist as an outpatient (Dr. Ramirez). Upon discharge the patient will follow up with her neurologist as an outpatient regarding her MS management. Jayden Javier M.D. Neuro-hospitalist Time with Patient: Greater than 30
[2020-01-31 20:59] LABS: Glucose,Whole Blood 122 mg/dL (75-99)
[2020-01-31] MEDS: MELATONIN 5 MG TABLET PO SCH (21:20)
[2020-02-01] MEDS: SODIUM CHLORIDE 0.9% 1,000 ML IV SCH ×3 (00:33→16:55)
[2020-02-01 06:44] LABS: Glucose,Whole Blood 101 mg/dL (75-99)
[2020-02-01 07:03] LABS: Basophils % (A) 0 %; Eosinophils # (A) 0.2 k/uL (0-0.7); Eosinophils % (A) 2 %; HCT 40.3 % (34.0-46.0); HGB 12.4 gm/dL (11.4-16.0); Hypochromasia Moderate; Lymphocytes # (A) 1.8 k/uL (1.0-4.8); Lymphocytes % (A) 19 %; MCH 30.5 pg (25.0-35.0); MCHC 30.8 g/dL (31.0-37.0); MCV 99.1 fL (80.0-100.0); Mean Platelet Volume 8.4; Monocytes # (A) 0.5 k/uL (0-1.0); Monocytes % (A) 5 %; Neutrophils # (A) 6.9 k/uL (1.3-7.7); Neutrophils % (A) 72 %; Platelet Count 221 k/uL (150-450); RBC 4.07 m/uL (3.80-5.40); RDW 13.9 % (11.5-15.5); WBC 9.5 k/uL (3.8-10.6)
[2020-02-01] MEDS: SYMBICORT 160-4.5 MCG INHALER INHALATION SCH ×2 (07:48→19:52)
[2020-02-01] MEDS: IPRATROPIUM-ALBUTEROL 3 ML NEB INHALATION PRN ×4 (07:48→19:52)
[2020-02-01] MEDS: PARoxetine 20 MG TAB PO SCH (08:49)
[2020-02-01] MEDS: MEMANTINE 10 MG TAB PO SCH ×2 (08:49→20:51)
[2020-02-01] MEDS: MONTELUKAST 10 MG TAB PO SCH (08:49)
[2020-02-01] MEDS: MULTIVITAMINS, THERA 1 EACH TAB PO SCH (08:50)
[2020-02-01] MEDS: PANTOPRAZOLE 40 MG TABLET PO SCH ×2 (08:50→16:55)
[2020-02-01] MEDS: ASPIRIN 81 MG PO SCH (08:50)
[2020-02-01] MEDS: ASCORBIC ACID 500 MG TAB PO SCH (08:50)
[2020-02-01] MEDS: busPIRone HCl 10 MG TAB PO SCH ×3 (08:50→20:51)
[2020-02-01] MEDS: VERAPAMIL 40 MG TAB PO SCH (08:51)
[2020-02-01] MEDS: hydroCHLOROthiazide 25 MG TAB PO SCH (08:51)
[2020-02-01] MEDS: MAGNESIUM OXIDE 400 MG TAB PO SCH ×2 (08:51→20:52)
[2020-02-01] MEDS: methocarbamoL 750 MG TAB PO SCH ×3 (08:53→20:51)
[2020-02-01] MEDS: ENOXAPARIN 40 MG/0.4 ML SYRINGE SQ SCH (08:53)
[2020-02-01] MEDS: BUTALB/APAP/CAFF 50-325-40MG TAB PO PRN ×2 (08:53→16:55)
[2020-02-01] MEDS: FOLIC ACID 1 MG TAB PO SCH (08:53)
[2020-02-01] MEDS: NICOTINE 21MG/24HR PATCH TRANSDERM SCH (08:53)
[2020-02-01] MEDS: polyethylene glycoL 3350 17 GM POWD.PACK PO SCH (08:54)
[2020-02-01] MEDS: oxyCODONE-APAP 10-325MG 1 EACH TAB PO PRN ×2 (08:54→16:54)
[2020-02-01] MEDS: LORazepam 1 MG TAB PO PRN ×2 (08:54→16:54)
[2020-02-01] MEDS: SENNOSIDES-DOCUSATE SODIUM 1 EACH TAB PO SCH ×2 (08:54→20:51)
[2020-02-01] MEDS: GABAPENTIN 400 MG CAP PO SCH ×3 (08:54→20:51)
[2020-02-01] MEDS: HYDROmorphone 1 MG/ML 1 ML SYRINGE IM PRN ×2 (10:10→14:16)
[2020-02-01 11:36] LABS: Glucose,Whole Blood 140 mg/dL (75-99)
--- NOTE | 2020-02-01 12:19 | P.PN ---
Subjective Progress Note Date: 02/01/20 This is a 54 year old female patient of Dr. Tabares and Dr. Ramirez with a past medical history of multiple sclerosis, hypertension, hypertensive cardiovascular disease with left ventricular hypertrophy, GERD, COPD, osteoporosis, uterine cancer, chronic hypoxic respiratory failure on home 02 at 2L nasal cannula, and tobacco use and dependency. She has had multiple admissions for acute exacerbation of her multiple sclerosis. Patient reports that she has not been feeling well for the last 2-3 days and has had a low-grade fever. She also has complaints of her entire body jerking and headaches. Patient also reports that she had fallen recently, she was seen in the emergency department and x-rays were negative, she still has bruising to the left lower [place] area. Patient reports she was at home and she was weak so she decided to call 911. Chest x- ray showed no active cardiopulmonary disease and no change, CT of the abdomen did not show any acute findings. UA was negative for any infection, zabala virus swab pending. She does have mild leukocytosis, WBC 14.4, sodium 134, potassium 3.2, BUN 8, creatinine 0.49, AST 205, ALT 95. Blood cultures pending, she did receive 1 dose of high-dose Solu-Medrol for her MS symptoms. Vital signs show a fever of 100.1, heart rate 103, respiratory rate 18, blood pressure 115/72. Neurology has been consulted. 01/30: patient seen resting in bed this morning. patient complaining of left lower leg pain consistent with her fall and noted hematoma. We'll do Doppler to rule out DVT. Dilaudid ordered for pain control. blood cultures continued to show no growth, , white blood cells 12.5 today. vital signs are stable, patient remains afebrile, pulse rate 84, respiration 18, blood pressure 120/83, pulse ox 97% on 2 L via nasal cannula. COVID-19testing was negative. Neuro continues on the case and MRI is pending at this time. 01/31: Patient seen sitting on edge of bed this morning, reports not feeling well with some shortness of breath. Will perform chest x-ray today. MRIs were reviewed patient will follow-up with neurology as outpatient. Will decrease Dilaudid to every 6 hours for pain management. Vital signs are stable, patient remains afebrile pulse rate 83, blood pressure 114/78, pulse ox 95% on 2 L nasal cannula. Plan to discharge patient home tomorrow if stable. Doppler was negative for DVT. - Constitutional General appearance: cooperative, morbidly obese, no acute distress - EENT Eyes: EOMI, PERRLA, normal appearance ENT: hearing grossly normal, normal oropharynx - Neck Neck: no lymphadenopathy, normal ROM, no thyromegaly - Respiratory Respiratory: bilateral: CTA, negative: diminished throughout lung schwarz, some scattered rhonchi - Cardiovascular Rhythm: regular Heart sounds: normal: S1, S2 - Gastrointestinal General gastrointestinal: no distended, no hepatomegaly, normal bowel sounds, no organomegaly, no tenderness - Integumentary Integumentary: normal, normal turgor, no rash, no ulcer - Neurologic Neurologic: CNII-XII intact - Musculoskeletal Musculoskeletal: generalized weakness, bruising to left lower leg - Psychiatric Psychiatric: A&O x's 3, appropriate affect, intact judgment & insight Objective - Vital Signs Vital signs: Vital Signs Temp 98.1 F 02/01/20 07:00 Pulse 86 02/01/20 11:02 Resp 18 02/01/20 10:09 BP 118/80 02/01/20 10:09 Pulse Ox 93 L 02/01/20 07:51 Intake & Output 01/31/20 02/01/20 02/01/20 18:59 06:59 18:59 Weight 105.687 kg Other: Voiding Method Toilet Toilet Toilet # Voids 1 1 - Labs CBC & Chem 7: 02/01/20 06:01 01/31/20 07:16 Labs: Abnormal Lab Results - Last 24 Hours (Table) 01/31/20 01/31/20 02/01/20 Range/Units 17:06 20:57 06:01 MCHC 30.8 L (31.0-37.0) g/dL POC Glucose (mg/dL) 120 H 122 H (75-99) mg/dL 02/01/20 02/01/20 Range/Units 06:43 11:35 MCHC (31.0-37.0) g/dL POC Glucose (mg/dL) 101 H 140 H (75-99) mg/dL Microbiology - Last 24 Hours (Table) 01/30/20 03:06 Blood Culture - Preliminary Blood No Growth after 48 hours 01/30/20 03:06 Blood Culture - Preliminary Blood No Growth after 48 hours Assessment and Plan Assessment: Plan: 1. Fever of uncertain etiology with mild leukocytosis. CT abdomen and pelvis completed, no acute findings to account for patients symptoms, UA was clear, chest x-ray completed and no signs of pneumonia. Covid swab was negative, blood cultures showed no growth 2. Acute MS exacerbation with history of relapsing remitting MS. Received 1 dose of Solu-Medrol 500mg IVPB, will consult with neurology, continue with Robaxin 750 mg twice a day. MRI was completed and patient will follow-up with neurology as outpatient. 3. Transaminitis. Uncertain etiology 4. Hypertension and hypertensive cardiovascular disease. On hydrochlorothiazide 25 mg daily and verapamil 120 mg daily. 5. Intermittent asthma and COPD. Continue Symbicort and albuterol 6. Fibromyalgia. Continue with gabapentin 1200 mg 3 times a day along with Percocet 10/325 mg 1 tab 3 times a day when necessary 7. Generalized anxiety disorder. Continue with Ativan 1 mg every 8 hours as needed along with BuSpar 10 mg 3 times a day and Paxil 40 mg daily. 8. Chronic tobacco use and dependence. Smoking cessation and counseling an increased risk of CAD, CVA, and malignancy. Continue nicotine patch 21 mg once every day. 9. Mild cognitive impairment. Continue patient on Namenda 10 mg orally twice every day. 10. Restless leg syndrome. Continue Requip 0.25 mg 3 times daily 11. DVT prophylaxis. Lovenox 40 mg subcutaneously every 24 hours. 12. GERD and GI prophylaxis. Continue with Protonix 40 mg orally twice every day. Patient will be admitted to the hospital for minimum of 2 night stay. Impression and plan of care have been directed as dictated by the signing physician. Christina Jacobo nurse practitioner acting as scribe for signing physician.
[2020-02-01 12:54] LABS: African American GFR (CKD) 135.9 (60.0-200.0); Albumin 3.5 g/dL (3.80-4.90); Albumin/Globulin Ratio 2.92 (1.60-3.17); Globulin 1.2 g/dL (1.6-3.3); Non-African American GFR(CKD) 117.3 (60.0-200.0); Potassium 3.4 mmol/L (3.5-5.5); Total Bilirubin 0.3 mg/dL (0.3-1.2); Total Protein 4.7 g/dL (6.2-8.2)
--- NOTE | 2020-02-01 15:23 | XR ---
EXAMINATION TYPE: XR chest 2V DATE OF EXAM: 02/01/2020 COMPARISON: Prior chest 01/30/2020 HISTORY: Dyspnea TECHNIQUE: Frontal and lateral views of the chest are obtained. FINDINGS: The heart is enlarged. Interstitium is increased. There is blunting the right costophrenic angle. No pneumothorax. Prominent lung volumes suggest underlying COPD. Difficult to exclude air bro nchograms in the infrahilar location on the right. IMPRESSION: Correlate for pulmonary venous hypertension and interstitial edema in a patient with pre -existing COPD, difficult to exclude early airspace disease, consider pneumonia, edema, follow-up sug gested. Difficult to exclude small right pleural effusion.
[2020-02-01 16:58] LABS: Glucose,Whole Blood 95 mg/dL (75-99)
[2020-02-01] MEDS ORDERED: Potassium Replacement Protocol 1 EACH MISC MISCELLANE PRN (18:05)
--- NOTE | 2020-02-01 19:12 | P.PN ---
Subjective Progress Note Date: 02/01/20 Patient was seen at bedside and she feels like she is doing better today compared to yesterday. Denies of any nausea, vomiting. Denies off any blurry vision. Noise of any further worsening of her weakness. Denies of any worsening of her numbness. Objective - Vital Signs Vital signs: Vital Signs Temp 97.9 F 02/01/20 15:00 Pulse 80 02/01/20 16:22 Resp 18 02/01/20 15:00 BP 107/73 02/01/20 15:00 Pulse Ox 96 02/01/20 15:00 Intake & Output 02/01/20 02/01/20 02/02/20 06:59 18:59 06:59 Other: Voiding Method Toilet Toilet # Voids 1 4 - Exam GENERAL: The patient is lying in bed and is not in acute distress. She is currently eating at bedside. CHEST: The heart rate is regular rate rhythm. No murmurs to auscultation. LUNG: Clear to auscultation bilaterally no wheezing noted throughout. Not labored breathing. ABDOMEN/GI: Bowel sounds present in all 4 quadrants. No tenderness to palpation throughout. INTEGUMENTARY: Has erythematous bruise on left [place] area (from fall about 1 week ago). NEUROLOGICAL: Higher mental function: The patient is awake, alert, oriented to self, place and time. Patient is following commands. No aphasia and no neglect. Cranial nerves: The pupils are round, equal and reactive to light and accommodation. Visual schwarz are full to confrontation throughout. Extraocular movement is intact no nystagmus is noted. Facial sensation is normal to touch throughout. The facial strength is normal throughout. Tongue is midline and moved [id number] without any difficulty. No dysarthria is noted. Shoulder shrug is normal bilaterally. Motor: Gait is deferred. The strength is 3+ on left lower extremity proximally and was limited because of pain. Otherwise 5/5 throughgout (initially was 4+ but with encouragement strength seemed strong. Normal tone and bulk. Cerebellum: Normal finger to nose bilaterally. Sensation: Sensation is normal to touch throughout. Reflexes (right/left): 2+ Plantars are downgoing bilaterally. - Labs CBC & Chem 7: 02/01/20 06:01 02/01/20 06:01 Labs: Abnormal Lab Results - Last 24 Hours (Table) 01/31/20 02/01/20 02/01/20 Range/Units 20:57 06:01 06:01 MCHC 30.8 L (31.0-37.0) g/dL Potassium 3.4 L (3.5-5.5) mmol/L Carbon Dioxide 32.0 H (21.6-31.8) mmol/L Anion Gap 13.00 H (4.00-12.00) mmol/L BUN 6.0 L (9.0-27.0) mg/dL Creatinine 0.4 L (0.6-1.5) mg/dL POC Glucose (mg/dL) 122 H (75-99) mg/dL Calcium 8.0 L (8.7-10.3) mg/dL AST 390 H (13-35) U/L ALT 483 H (8-44) U/L Total Protein 4.7 L (6.2-8.2) g/dL Albumin 3.50 L (3.80-4.90) g/dL Globulin 1.2 L (1.6-3.3) g/dL 02/01/20 02/01/20 Range/Units 06:43 11:35 MCHC (31.0-37.0) g/dL Potassium (3.5-5.5) mmol/L Carbon Dioxide (21.6-31.8) mmol/L Anion Gap (4.00-12.00) mmol/L BUN (9.0-27.0) mg/dL Creatinine (0.6-1.5) mg/dL POC Glucose (mg/dL) 101 H 140 H (75-99) mg/dL Calcium (8.7-10.3) mg/dL AST (13-35) U/L ALT (8-44) U/L Total Protein (6.2-8.2) g/dL Albumin (3.80-4.90) g/dL Globulin (1.6-3.3) g/dL Microbiology - Last 24 Hours (Table) 01/30/20 03:06 Blood Culture - Preliminary Blood No Growth after 48 hours 01/30/20 03:06 Blood Culture - Preliminary Blood No Growth after 48 hours Assessment and Plan Assessment: 54-year-old female with relapsing remitting multiple sclerosis admitted with fever, generalized weakness, decreased oral intake. She also had who body jerks for 2-3 which resolved and feels it typical for her MS. Pseudo-exacerbation of her MS. Likely the fever is the one that is unmask in the old MS lesion. Peripheral neuropathy Morbid obesity History of folate, B6 and vitamin D deficiency. Plan: MRI of the brain w/ and w/o: Was reported as white matter lesion in the chioma and centrum semiovale bilaterally around the lateral ventricles. White matter disease and appears improved compared to previous exam of 11/29/2018 with decreased intensity of pontine signal and also decreased in size and number of the periventricular white matter lesion. Contrast images shows no pathological enhancement of the brain. MRI of the C-spine w/ and w/o: Posterior mild disc herniation at the C4-C5. Small posterior disc bulge at the C6-C7. No spinal stenosis. No evidence of demyelinating disease of the cervical spinal cord. Since the patient had no acute the enhanced lesion we will not start the patient on any steroids at. Likely the patient had underlying infection possibly viral that can unmask the old lesion. Regarding the patient peripheral neuropathy as she is on 1200 mg 3 times a day. I feel like that is large dose. We'll defer the management to the her neurologist as an outpatient (Dr. Ramirez). Upon discharge the patient will follow up with her neurologist as an outpatient regarding her MS management. Jayden Javier M.D. Neuro-hospitalist Time with Patient: Greater than 30
[2020-02-01] MEDS: MELATONIN 5 MG TABLET PO SCH (20:52)
[2020-02-01] MEDS: POTASSIUM CHLORIDE ER 20 MEQ TAB.ER PO SCH ×2 (20:52→22:16)
[2020-02-01] MEDS: HYDROmorphone 1 MG/ML 1 ML SYRINGE IVP PRN (21:03)
[2020-02-01 21:26] LABS: Glucose,Whole Blood 106 mg/dL (75-99)
[2020-02-02] MEDS: BUTALB/APAP/CAFF 50-325-40MG TAB PO PRN ×3 (00:32→16:29)
[2020-02-02] MEDS: LORazepam 1 MG TAB PO PRN ×3 (00:33→16:31)
[2020-02-02] MEDS: oxyCODONE-APAP 10-325MG 1 EACH TAB PO PRN ×3 (00:33→16:30)
[2020-02-02] MEDS ORDERED: Potassium Replacement Protocol 1 EACH MISC MISCELLANE PRN ×2 (01:05→01:38)
[2020-02-02] MEDS ORDERED: ONDANSETRON 4 MG/2 ML VIAL IVP PRN (01:48)
[2020-02-02] MEDS ORDERED: NALOXONE 0.4 MG/ML 1 ML VIAL IV PRN (01:48)
[2020-02-02] MEDS: SODIUM CHLORIDE 0.9% 1,000 ML IV SCH ×2 (01:49→19:04)
[2020-02-02] MEDS: POTASSIUM CHLORIDE ER 20 MEQ TAB.ER PO SCH ×4 (02:02→21:24)
[2020-02-02] MEDS: HYDROmorphone 1 MG/ML 1 ML SYRINGE IVP PRN ×4 (05:55→23:22)
[2020-02-02 06:56] LABS: Glucose,Whole Blood 103 mg/dL (75-99)
[2020-02-02] MEDS: NICOTINE 21MG/24HR PATCH TRANSDERM SCH (07:58)
[2020-02-02] MEDS: methocarbamoL 750 MG TAB PO SCH ×3 (07:59→21:25)
[2020-02-02] MEDS: MULTIVITAMINS, THERA 1 EACH TAB PO SCH (07:59)
[2020-02-02] MEDS: ENOXAPARIN 40 MG/0.4 ML SYRINGE SQ SCH (07:59)
[2020-02-02] MEDS: ASPIRIN 81 MG PO SCH (07:59)
[2020-02-02] MEDS: MONTELUKAST 10 MG TAB PO SCH (07:59)
[2020-02-02] MEDS: ASCORBIC ACID 500 MG TAB PO SCH (07:59)
[2020-02-02] MEDS: FOLIC ACID 1 MG TAB PO SCH (07:59)
[2020-02-02] MEDS: MAGNESIUM OXIDE 400 MG TAB PO SCH ×2 (08:00→21:24)
[2020-02-02] MEDS: GABAPENTIN 400 MG CAP PO SCH ×3 (08:00→21:24)
[2020-02-02] MEDS: MEMANTINE 10 MG TAB PO SCH ×2 (08:00→21:24)
[2020-02-02] MEDS: VERAPAMIL 40 MG TAB PO SCH (08:00)
[2020-02-02] MEDS: busPIRone HCl 10 MG TAB PO SCH ×3 (08:00→21:24)
[2020-02-02] MEDS: PARoxetine 20 MG TAB PO SCH (08:00)
[2020-02-02] MEDS: PANTOPRAZOLE 40 MG TABLET PO SCH ×2 (08:00→16:29)
[2020-02-02] MEDS: hydroCHLOROthiazide 25 MG TAB PO SCH (08:01)
[2020-02-02] MEDS: polyethylene glycoL 3350 17 GM POWD.PACK PO SCH (08:03)
[2020-02-02 08:08] LABS: Basophils % (A) 0 %; Eosinophils # (A) 0.5 k/uL (0-0.7); Eosinophils % (A) 5 %; HCT 44.9 % (34.0-46.0); HGB 13.3 gm/dL (11.4-16.0); Hypochromasia Moderate; Lymphocytes # (A) 2.5 k/uL (1.0-4.8); Lymphocytes % (A) 26 %; MCH 29.6 pg (25.0-35.0); MCHC 29.7 g/dL (31.0-37.0); MCV 99.5 fL (80.0-100.0); Macrocytosis Slight; Mean Platelet Volume 7.8; Monocytes # (A) 0.6 k/uL (0-1.0); Monocytes % (A) 6 %; Neutrophils # (A) 5.7 k/uL (1.3-7.7); Neutrophils % (A) 61 %; Platelet Count 250 k/uL (150-450); RBC 4.51 m/uL (3.80-5.40); WBC 9.4 k/uL (3.8-10.6)
[2020-02-02] MEDS: IPRATROPIUM-ALBUTEROL 3 ML NEB INHALATION PRN ×4 (08:21→20:26)
[2020-02-02] MEDS: SYMBICORT 160-4.5 MCG INHALER INHALATION SCH ×2 (08:21→20:26)
[2020-02-02] MEDS ORDERED: FUROSEMIDE 10 MG/ML 4 ML VIAL IV STA (08:43)
[2020-02-02] MEDS ORDERED: FUROSEMIDE 20 MG TAB PO SCH (09:00)
--- NOTE | 2020-02-02 09:58 | P.PN ---
Subjective Progress Note Date: 02/02/20 This is a 54 year old female patient of Dr. Tabares and Dr. Ramirez with a past medical history of multiple sclerosis, hypertension, hypertensive cardiovascular disease with left ventricular hypertrophy, GERD, COPD, osteoporosis, uterine cancer, chronic hypoxic respiratory failure on home 02 at 2L nasal cannula, and tobacco use and dependency. She has had multiple admissions for acute exacerbation of her multiple sclerosis. Patient reports that she has not been feeling well for the last 2-3 days and has had a low-grade fever. She also has complaints of her entire body jerking and headaches. Patient also reports that she had fallen recently, she was seen in the emergency department and x-rays were negative, she still has bruising to the left lower [place] area. Patient reports she was at home and she was weak so she decided to call 911. Chest x- ray showed no active cardiopulmonary disease and no change, CT of the abdomen did not show any acute findings. UA was negative for any infection, zabala virus swab pending. She does have mild leukocytosis, WBC 14.4, sodium 134, potassium 3.2, BUN 8, creatinine 0.49, AST 205, ALT 95. Blood cultures pending, she did receive 1 dose of high-dose Solu-Medrol for her MS symptoms. Vital signs show a fever of 100.1, heart rate 103, respiratory rate 18, blood pressure 115/72. Neurology has been consulted. 01/30: patient seen resting in bed this morning. patient complaining of left lower leg pain consistent with her fall and noted hematoma. We'll do Doppler to rule out DVT. Dilaudid ordered for pain control. blood cultures continued to show no growth, , white blood cells 12.5 today. vital signs are stable, patient remains afebrile, pulse rate 84, respiration 18, blood pressure 120/83, pulse ox 97% on 2 L via nasal cannula. COVID-19testing was negative. Neuro continues on the case and MRI is pending at this time. 01/31: Patient seen sitting on edge of bed this morning, reports not feeling well with some shortness of breath. Will perform chest x-ray today. MRIs were reviewed patient will follow-up with neurology as outpatient. Will decrease Dilaudid to every 6 hours for pain management. Vital signs are stable, patient remains afebrile pulse rate 83, blood pressure 114/78, pulse ox 95% on 2 L nasal cannula. Plan to discharge patient home tomorrow if stable. Doppler was negative for DVT. 02/01: Patient evaluated resting in bed this morning, reports feeling a little bit better today. Liver enzymes remain elevated, AST was 390 ALT 483, Will order ultrasound of liver, patient does report history of fatty liver. Vital signs are stable, she remains afebrile, pulse rate 76, respirations 16, blood pressure 106/73, pulse ox 94% on 2 L via nasal cannula. Chest x-ray showed pulmonary venous hypertension and interstitial edema with pre-existing COPD. Will give 40 IV Lasix 1 and Hep-Lock IV fluids. Plan to discharge tomorrow after pending tests. - Constitutional General appearance: cooperative, morbidly obese, no acute distress - EENT Eyes: EOMI, PERRLA, normal appearance ENT: hearing grossly normal, normal oropharynx - Neck Neck: no lymphadenopathy, normal ROM, no thyromegaly - Respiratory Respiratory: bilateral: CTA, negative: diminished throughout lung schwarz. - Cardiovascular Rhythm: regular Heart sounds: normal: S1, S2 - Gastrointestinal General gastrointestinal: no distended, no hepatomegaly, normal bowel sounds, no organomegaly, no tenderness - Integumentary Integumentary: normal, normal turgor, no rash, no ulcer - Neurologic Neurologic: CNII-XII intact - Musculoskeletal Musculoskeletal: generalized weakness, bruising to left lower leg - Psychiatric Psychiatric: A&O x's 3, appropriate affect, intact judgment & insight Objective - Vital Signs Vital signs: Vital Signs Temp 98.1 F 02/02/20 06:52 Pulse 77 02/02/20 08:33 Resp 16 02/02/20 08:08 BP 106/73 02/02/20 06:52 Pulse Ox 94 L 02/02/20 02:40 Intake & Output 02/01/20 02/02/20 02/02/20 18:59 06:59 18:59 Intake Total 240 Balance 240 Intake: Oral 240 Other: Voiding Method Toilet Toilet Toilet # Voids 4 1 - Labs CBC & Chem 7: 02/02/20 07:59 02/01/20 23:20 Labs: Abnormal Lab Results - Last 24 Hours (Table) 02/01/20 02/01/20 02/01/20 Range/Units 06:01 11:35 21:25 MCHC (31.0-37.0) g/dL Potassium 3.4 L (3.5-5.5) mmol/L Carbon Dioxide 32.0 H (21.6-31.8) mmol/L Anion Gap 13.00 H (4.00-12.00) mmol/L BUN 6.0 L (9.0-27.0) mg/dL Creatinine 0.4 L (0.6-1.5) mg/dL POC Glucose (mg/dL) 140 H 106 H (75-99) mg/dL Calcium 8.0 L (8.7-10.3) mg/dL AST 390 H (13-35) U/L ALT 483 H (8-44) U/L Total Protein 4.7 L (6.2-8.2) g/dL Albumin 3.50 L (3.80-4.90) g/dL Globulin 1.2 L (1.6-3.3) g/dL 02/01/20 02/02/20 02/02/20 Range/Units 23:20 06:53 07:59 MCHC 29.7 L (31.0-37.0) g/dL Potassium 3.0 L (3.5-5.5) mmol/L Carbon Dioxide (21.6-31.8) mmol/L Anion Gap (4.00-12.00) mmol/L BUN (9.0-27.0) mg/dL Creatinine (0.6-1.5) mg/dL POC Glucose (mg/dL) 103 H (75-99) mg/dL Calcium (8.7-10.3) mg/dL AST (13-35) U/L ALT (8-44) U/L Total Protein (6.2-8.2) g/dL Albumin (3.80-4.90) g/dL Globulin (1.6-3.3) g/dL Microbiology - Last 24 Hours (Table) 01/30/20 03:06 Blood Culture - Preliminary Blood No Growth after 72 hours 01/30/20 03:06 Blood Culture - Preliminary Blood No Growth after 72 hours Assessment and Plan Assessment: Plan: 1. Fever of uncertain etiology with mild leukocytosis. CT abdomen and pelvis completed, no acute findings to account for patients symptoms, UA was clear, chest x-ray completed and no signs of pneumonia. Covid swab was negative, blood cultures showed no growth. 2. Acute MS exacerbation with history of relapsing remitting MS. Received 1 dose of Solu-Medrol 500mg IVPB, consult with neurology, continue with Robaxin 750 mg twice a day. MRI was completed and patient will follow-up with neurology as outpatient. 3. Transaminitis. Uncertain etiology, ultrasound of liver ordered and will repeat studies in the morning 4. Hypertension and hypertensive cardiovascular disease. On hydrochlorothiazide 25 mg daily and verapamil 120 mg daily. 5. Intermittent asthma and COPD. Continue Symbicort and albuterol 6. Fibromyalgia. Continue with gabapentin 1200 mg 3 times a day along with Percocet 10/325 mg 1 tab 3 times a day when necessary 7. Generalized anxiety disorder. Continue with Ativan 1 mg every 8 hours as needed along with BuSpar 10 mg 3 times a day and Paxil 40 mg daily. 8. Chronic tobacco use and dependence. Smoking cessation and counseling an increased risk of CAD, CVA, and malignancy. Continue nicotine patch 21 mg once every day. 9. Mild cognitive impairment. Continue patient on Namenda 10 mg orally twice e very day. 10. Restless leg syndrome. Continue Requip 0.25 mg 3 times daily 11. DVT prophylaxis. Lovenox 40 mg subcutaneously every 24 hours. 12. GERD and GI prophylaxis. Continue with Protonix 40 mg orally twice every day. 13. Pulmonary vascular congestion. Lasix 40 mg IV push 1 and discontinue IV fluids and Hep-Lock patient Patient will be admitted to the hospital for minimum of 2 night stay. Discharge plan: Possibly home tomorrow pending test results Impression and plan of care have been directed as dictated by the signing physician. Christina Jacobo nurse practitioner acting as scribe for signing physician.
[2020-02-02 12:22] LABS: African American GFR (CKD) 135.9 (60.0-200.0); Albumin 3.8 g/dL (3.80-4.90); Albumin/Globulin Ratio 2.53 (1.60-3.17); Anion Gap 8.9 mmol/L (4.00-12.00); Calcium 8.4 mg/dL (8.7-10.3); Carbon Dioxide 35.1 mmol/L (21.6-31.8); Globulin 1.5 g/dL (1.6-3.3); Non-African American GFR(CKD) 117.3 (60.0-200.0); Potassium 4.5 mmol/L (3.5-5.5); Total Bilirubin 0.3 mg/dL (0.2-1.2); Total Protein 5.3 g/dL (6.2-8.2)
--- NOTE | 2020-02-02 13:36 | P.PN ---
Subjective Progress Note Date: 02/02/20 Patient was seen in her room and that she was walking around in her room talking on the phone. That she stated that she's doing much better today compared to yesterday. She denies of any headache, nausea vomiting. Denies of any photophobia any photophobia. Denies of any blurry vision. Denies of any we akness any numbness. Objective - Vital Signs Vital signs: Vital Signs Temp 98.1 F 02/02/20 06:52 Pulse 80 02/02/20 11:31 Resp 16 02/02/20 08:08 BP 106/73 02/02/20 06:52 Pulse Ox 94 L 02/02/20 02:40 Intake & Output 02/01/20 02/02/20 02/02/20 18:59 06:59 18:59 Intake Total 240 Balance 240 Intake: Oral 240 Other: Voiding Method Toilet Toilet Toilet # Voids 4 1 - Exam GENERAL: The patient is lying in bed and is not in acute distress. She is currently eating at bedside. CHEST: The heart rate is regular rate rhythm. No murmurs to auscultation. LUNG: Clear to auscultation bilaterally no wheezing noted throughout. Not labored breathing. ABDOMEN/GI: Bowel sounds present in all 4 quadrants. No tenderness to palpation throughout. INTEGUMENTARY: Has erythematous bruise on left lebron area (from fall about 1 week ago). NEUROLOGICAL: Higher mental function: The patient is awake, alert, oriented to self, place and time. Patient is following commands. No aphasia and no neglect. Cranial nerves: The pupils are round, equal and reactive to light and accommodation. Visual schwarz are full to confrontation throughout. Extraocular movement is intact no nystagmus is noted. Facial sensation is normal to touch throughout. The facial strength is normal throughout. Tongue is midline and moved [id number] without any difficulty. No dysarthria is noted. Shoulder shrug is normal bilaterally. Motor: Gait is deferred. Strength is 5 out of 5 throughout. Normal tone and bulk. Cerebellum: Normal finger to nose bilaterally. Sensation: Sensation is normal to touch throughout. Reflexes (right/left): 2+ Plantars are downgoing bilaterally. - Labs CBC & Chem 7: 02/02/20 07:59 02/02/20 07:59 Labs: Abnormal Lab Results - Last 24 Hours (Table) 02/01/20 02/01/20 02/02/20 Range/Units 21:25 23:20 06:53 MCHC (31.0-37.0) g/dL Potassium 3.0 L (3.5-5.1) mmol/L Carbon Dioxide (21.6-31.8) mmol/L BUN (9.0-27.0) mg/dL Creatinine (0.6-1.5) mg/dL POC Glucose (mg/dL) 106 H 103 H (75-99) mg/dL Calcium (8.7-10.3) mg/dL AST (13-35) U/L ALT (8-44) U/L Total Protein (6.2-8.2) g/dL Globulin (1.6-3.3) g/dL 02/02/20 02/02/20 Range/Units 07:59 07:59 MCHC 29.7 L (31.0-37.0) g/dL Potassium (3.5-5.1) mmol/L Carbon Dioxide 35.1 H (21.6-31.8) mmol/L BUN 6.0 L (9.0-27.0) mg/dL Creatinine 0.4 L (0.6-1.5) mg/dL POC Glucose (mg/dL) (75-99) mg/dL Calcium 8.4 L (8.7-10.3) mg/dL AST 140 H (13-35) U/L ALT 392 H (8-44) U/L Total Protein 5.3 L (6.2-8.2) g/dL Globulin 1.5 L (1.6-3.3) g/dL Microbiology - Last 24 Hours (Table) 01/30/20 03:06 Blood Culture - Preliminary Blood No Growth after 72 hours 01/30/20 03:06 Blood Culture - Preliminary Blood No Growth after 72 hours Assessment and Plan Assessment: 54-year-old female with relapsing remitting multiple sclerosis admitted with fever, generalized weakness, decreased oral intake. She also had who body jerks for 2-3 which resolved and feels it typical for her MS. Pseudo-exacerbation of her MS. Likely the fever is the one that is unmask in the old MS lesion. Peripheral neuropathy Morbid obesity History of folate, B6 and vitamin D deficiency. Plan: MRI of the brain w/ and w/o: Was reported as white matter lesion in the chioma and centrum semiovale bilaterally around the lateral ventricles. White matter disease and appears improved compared to previous exam of 11/29/2018 with decreased intensity of pontine signal and also decreased in size and number of the periventricular white matter lesion. Contrast images shows no pathological enhancement of the brain. MRI of the C-spine w/ and w/o: Posterior mild disc herniation at the C4-C5. Small posterior disc bulge at the C6-C7. No spinal stenosis. No evidence of demyelinating disease of the cervical spinal cord. Since the patient had no acute the enhanced lesion we will not start the patient on any steroids at. Likely the patient had a underlying infection possibly viral that can unmask the old lesion. Regarding the patient peripheral neuropathy as she is on 1200 mg 3 times a day. I feel like that is large dose. We'll defer the management to the her neurologi st as an outpatient (Dr. Ramirez). Upon discharge the patient will follow up with her neurologist as an outpatient regarding her MS management. Jayden Javier M.D. Neuro-hospitalist Time with Patient: Greater than 30
--- NOTE | 2020-02-02 15:58 | US ---
EXAMINATION TYPE: US liver DATE OF EXAM: 02/02/2020 COMPARISON: CT 2019, US 2017 CLINICAL HISTORY: abx LFT. Abnormal LFT's EXAM MEASUREMENTS: Liver Length: 21.7 cm Gallbladder Wall: 0.2 cm CBD: 0.9 cm Right Kidney: 10.8 x 4.5 x 3.9 cm Difficult and limited study due to patient body habitus Pancreas: visualized portions wnl, limited by overlying midline bowel gas Liver: enlarged, heterogeneous, limited by overlying bowel gas, 1.9 x 1.8 x 1.7cm cyst left lobe Gallbladder: wnl Evidence for sonographic Griffith's sign: no CBD: dilated Right Kidney: wnl IMPRESSION: 1. Hepatomegaly. Liver is heterogeneous correlate for hepatocellular disease, hepatitis or hepatic st eatosis. There is a 1.9 cm lesion in the left lobe of the liver which is stable from the ultrasound o f 08/19/2016. This does not meet the criteria of a simple cyst by ultrasound which may be technical. T hat measure [address] recent CT scan suggestive of simple cyst. 2. Common bile duct is dilated measuring 9 mm. Correlate for CBD obstruction.
[2020-02-02] MEDS: MELATONIN 5 MG TABLET PO SCH (21:24)
[2020-02-02] MEDS: SENNOSIDES-DOCUSATE SODIUM 1 EACH TAB PO SCH (21:24)
[2020-02-02 22:41] LABS: Glucose,Whole Blood 141 mg/dL (75-99)
[2020-02-03] MEDS: LORazepam 1 MG TAB PO PRN ×2 (01:02→10:18)
[2020-02-03] MEDS: BUTALB/APAP/CAFF 50-325-40MG TAB PO PRN ×2 (01:02→10:18)
[2020-02-03] MEDS: oxyCODONE-APAP 10-325MG 1 EACH TAB PO PRN ×2 (01:03→10:19)
[2020-02-03 06:57] LABS: Glucose,Whole Blood 93 mg/dL (75-99)
[2020-02-03] MEDS: ENOXAPARIN 40 MG/0.4 ML SYRINGE SQ SCH (07:47)
[2020-02-03] MEDS: NICOTINE 21MG/24HR PATCH TRANSDERM SCH (07:48)
[2020-02-03] MEDS: PANTOPRAZOLE 40 MG TABLET PO SCH (07:49)
[2020-02-03] MEDS: MULTIVITAMINS, THERA 1 EACH TAB PO SCH (07:49)
[2020-02-03] MEDS: MEMANTINE 10 MG TAB PO SCH (07:50)
[2020-02-03] MEDS: FOLIC ACID 1 MG TAB PO SCH (07:50)
[2020-02-03] MEDS: MAGNESIUM OXIDE 400 MG TAB PO SCH (07:50)
[2020-02-03] MEDS: PARoxetine 20 MG TAB PO SCH (07:50)
[2020-02-03] MEDS: busPIRone HCl 10 MG TAB PO SCH (07:50)
[2020-02-03] MEDS: ASPIRIN 81 MG PO SCH (07:50)
[2020-02-03] MEDS: MONTELUKAST 10 MG TAB PO SCH (07:50)
[2020-02-03] MEDS: methocarbamoL 750 MG TAB PO SCH (07:51)
[2020-02-03] MEDS: VERAPAMIL 40 MG TAB PO SCH (07:51)
[2020-02-03] MEDS: GABAPENTIN 400 MG CAP PO SCH (07:51)
[2020-02-03] MEDS: HYDROmorphone 1 MG/ML 1 ML SYRINGE IVP PRN (07:51)
[2020-02-03] MEDS: POTASSIUM CHLORIDE ER 20 MEQ TAB.ER PO SCH (07:51)
[2020-02-03] MEDS: ASCORBIC ACID 500 MG TAB PO SCH (07:51)
[2020-02-03 08:07] LABS: Basophils % (A) 0 %; Eosinophils # (A) 0.6 k/uL (0-0.7); Eosinophils % (A) 7 %; HCT 45.4 % (34.0-46.0); HGB 13.7 gm/dL (11.4-16.0); Hypochromasia Moderate; Lymphocytes # (A) 2.4 k/uL (1.0-4.8); Lymphocytes % (A) 27 %; MCH 30.1 pg (25.0-35.0); MCHC 30.3 g/dL (31.0-37.0); MCV 99.5 fL (80.0-100.0); Monocytes # (A) 0.5 k/uL (0-1.0); Monocytes % (A) 5 %; Neutrophils # (A) 5.3 k/uL (1.3-7.7); Neutrophils % (A) 59 %; Platelet Count 262 k/uL (150-450); RBC 4.56 m/uL (3.80-5.40); RDW 13.9 % (11.5-15.5)
[2020-02-03] MEDS: IPRATROPIUM-ALBUTEROL 3 ML NEB INHALATION PRN (08:40)
[2020-02-03] MEDS: SYMBICORT 160-4.5 MCG INHALER INHALATION SCH (08:42)
[2020-02-03] MEDS ORDERED: FUROSEMIDE 20 MG TAB PO SCH (09:00)
[2020-02-03 09:02] VITALS: BP 141/84; PULSE 82; RESP 16; TEMP 97.8
[2020-02-03] MEDS: polyethylene glycoL 3350 17 GM POWD.PACK PO SCH (09:35)
[2020-02-03] MEDS: SENNOSIDES-DOCUSATE SODIUM 1 EACH TAB PO SCH (09:35)
--- NOTE | 2020-02-03 10:37 | P.DS ---
Providers Date of admission: 01/30/20 06:09 Expected date of discharge: 02/03/20 Attending physician: Nafisa Xie MD Consults: 01/30/20 08:11 Consult Physician Routine Consulting Provider: Jayden Javier Consult Reason/Comments: MS Do you want consulting provider notified?: Yes Primary care physician: Kilo Tabares [facility] Course: This is a 54 year old female patient of Dr. Tabares and Dr. Ramirez with a past medical history of multiple sclerosis, hypertension, hypertensive cardiovascular disease with left ventricular hypertrophy, GERD, COPD, osteoporosis, uterine cancer, chronic hypoxic respiratory failure on home 02 at 2L nasal cannula, and tobacco use and dependency. She has had multiple admissions for acute exacerbation of her multiple sclerosis. Patient reports that she has not been feeling well for the last 2-3 days and has had a low-grade fever. She also has complaints of her entire body jerking and headaches. Patient also reports that she had fallen recently, she was seen in the emergency department and x-rays were negative, she still has bruising to the left lower [place] area. Patient reports she was at home and she was weak so she decided to call 911. Chest x- ray showed no active cardiopulmonary disease and no change, CT of the abdomen did not show any acute findings. UA was negative for any infection, zabala virus swab pending. She does have mild leukocytosis, WBC 14.4, sodium 134, potassium 3.2, BUN 8, creatinine 0.49, AST 205, ALT 95. Blood cultures pending, she did receive 1 dose of high-dose Solu-Medrol for her MS symptoms. Vital sig ns show a fever of 100.1, heart rate 103, respiratory rate 18, blood pressure 115/72. Neurology has been consulted. 01/30: patient seen resting in bed this morning. patient complaining of left lower leg pain consistent with her fall and noted hematoma. We'll do Doppler to rule out DVT. Dilaudid ordered for pain control. blood cultures continued to show no growth, , white blood cells 12.5 today. vital signs are stable, patient remains afebrile, pulse rate 84, respiration 18, blood pressure 120/83, pulse ox 97% on 2 L via nasal cannula. COVID-19testing was negative. Neuro continues on the case and MRI is pending at this time. 01/31: Patient seen sitting on edge of bed this morning, reports not feeling well with some shortness of breath. Will perform chest x-ray today. MRIs were reviewed patient will follow-up with neurology as outpatient. Will decrease Dilaudid to every 6 hours for pain management. Vital signs are stable, patient remains afebrile pulse rate 83, blood pressure 114/78, pulse ox 95% on 2 L nasal cannula. Plan to discharge patient home tomorrow if stable. Doppler was negative for DVT. 02/01: Patient evaluated resting in bed this morning, reports feeling a little bit better today. Liver enzymes remain elevated, AST was 390 ALT 483, Will order ultrasound of liver, patient does report history of fatty liver. Vital signs are stable, she remains afebrile, pulse rate 76, respirations 16, blood pressure 106/73, pulse ox 94% on 2 L via nasal cannula. Chest x-ray showed pulmonary venous hypertension and interstitial edema with pre-existing COPD. Will give 40 IV Lasix 1 and Hep-Lock IV fluids. Plan to discharge tomorrow after pending tests. 02/03: Patient seen resting in bed this morning. Reports doing well today, revie wed labs and ultrasound with patient discussed a follow-up as outpatient for further monitoring. Plan for discharge home today and follow up with neurology as outpatient. Charge diagnosis 1. Fever of uncertain etiology with mild leukocytosis. 2. Acute MS exacerbation with history of relapsing remitting MS. 3. Transaminitis. 4. Hypertension and hypertensive cardiovascular disease. 5. Intermittent asthma and COPD. 6. Fibromyalgia. 7. Generalized anxiety disorder. 8. Chronic tobacco use and dependence. 9. Mild cognitive impairment. 10. Restless leg syndrome. 11. Pulmonary vascular congestion. Patient Condition at Discharge: Stable Plan - Discharge Summary Discharge Rx Participant: No New Discharge Prescriptions: New Potassium Chloride ER [K-Dur 20] 20 meq PO DAILY #30 tab.er.prt Furosemide [Lasix] 20 mg PO DAILY #30 tab Magnesium Oxide [Mag-Ox] 400 mg PO BID #60 tab Continue LORazepam [Ativan] 1 mg PO Q8H PRN PRN Reason: Anxiety Aspirin 81 mg PO DAILY Verapamil HCl [Calan] 120 mg PO DAILY Gabapentin [Neurontin] 1,200 mg PO TID Butalb/APAP/Caff 50-325-40Mg [Fioricet 50-325-40] 1 tab PO Q8H PRN PRN Reason: Migraine Headache oxyCODONE-APAP 10-325MG [Percocet 10-325 mg] 1 tab PO TID PRN PRN Reason: pain rOPINIRole HCL [Requip] 0.25 mg PO TID #90 tab Budesonide/Formoterol Fumarate [Symbicort 160-4.5 Mcg Inhaler] 2 puff INHALATION RT-BID Multivitamins, Thera [Multivitamin (formulary)] 1 tab PO DAILY Cholecalciferol [Vitamin D3 (25 Mcg = 1000 Iu)] 2,000 unit PO DAILY PARoxetine [Paxil] 40 mg PO DAILY tab Pantoprazole Sodium [Protonix] 40 mg PO BID Ipratropium-Albuterol Nebulize [Duoneb 0.5 mg-3 mg/3 ml Soln] 3 ml INHALATION RT-QID PRN PRN Reason: Shortness Of Breath Memantine [Namenda] 10 mg PO BID Montelukast [Singulair] 10 mg PO DAILY hydroCHLOROthiazide [Hydrodiuril] 25 mg PO DAILY tab Fluticasone Nasal Leslie [Flonase Nasal Leslie] 2 spray EA NOSTRIL DAILY PRN PRN Reason: Congestion Methocarbamol [Robaxin-750] 750 mg PO TID PRN PRN Reason: Muscle Spasm busPIRone HCl [Buspar] 10 mg PO TID #90 tab Folic Acid 1 mg PO DAILY #30 tab Albuterol Sulfate [Ventolin HFA] 1 - 2 puff INHALATION RT-Q6H PRN PRN Reason: Shortness Of Breath Nystatin 100,000 Unit/ml Susp [Mycostatin Oral Susp] 500,000 unit PO QID Docusate [Colace] 100 mg PO DAILY PRN PRN Reason: Constipation Zinc Gluconate [Zinc] 25 mg PO DAILY Ascorbic Acid [Vitamin C] 1,000 mg PO DAILY Discharge Medication List Aspirin 81 mg PO DAILY 02/20/14 [History] LORazepam [Ativan] 1 mg PO Q8H PRN 02/20/14 [History] Verapamil HCl [Calan] 120 mg PO DAILY 02/20/14 [History] Gabapentin [Neurontin] 1,200 mg PO TID 08/19/16 [History] Butalb/APAP/Caff 50-325-40Mg [Fioricet 50-325-40] 1 tab PO Q8H PRN 03/25/17 [History] oxyCODONE-APAP 10-325MG [Percocet 10-325 mg] 1 tab PO TID PRN 01/28/18 [History] rOPINIRole HCL [Requip] 0.25 mg PO TID #90 tab 01/31/18 [Rx] Budesonide/Formoterol Fumarate [Symbicort 160-4.5 Mcg Inhaler] 2 puff INHALATION RT-BID 05/06/18 [History] Cholecalciferol [Vitamin D3 (25 Mcg = 1000 Iu)] 2,000 unit PO DAILY 05/07/18 [History] Multivitamins, Thera [Multivitamin (formulary)] 1 tab PO DAILY 05/07/18 [History] PARoxetine [Paxil] 40 mg PO DAILY tab 05/09/18 [Rx] Pantoprazole Sodium [Protonix] 40 mg PO BID 10/31/18 [History] Ipratropium-Albuterol Nebulize [Duoneb 0.5 mg-3 mg/3 ml Soln] 3 ml INHALATION RT-QID PRN 11/22/18 [History] Memantine [Namenda] 10 mg PO BID 11/22/18 [History] Montelukast [Singulair] 10 mg PO DAILY 11/22/18 [History] hydroCHLOROthiazide [Hydrodiuril] 25 mg PO DAILY tab 11/26/18 [Rx] Fluticasone Nasal Leslie [Flonase Nasal Leslie] 2 spray EA NOSTRIL DAILY PRN 04/28/19 [History] Methocarbamol [Robaxin-750] 750 mg PO TID PRN 04/28/19 [History] Folic Acid 1 mg PO DAILY #30 tab 05/02/19 [Rx] busPIRone HCl [Buspar] 10 mg PO TID #90 tab 05/02/19 [Rx] Albuterol Sulfate [Ventolin HFA] 1 - 2 puff INHALATION RT-Q6H PRN 08/09/19 [History] Nystatin 100,000 Unit/ml Susp [Mycostatin Oral Susp] 500,000 unit PO QID 09/04/19 [History] Ascorbic Acid [Vitamin C] 1,000 mg PO DAILY 01/30/20 [History] Docusate [Colace] 100 mg PO DAILY PRN 01/30/20 [History] Zinc Gluconate [Zinc] 25 mg PO DAILY 01/30/20 [History] Furosemide [Lasix] 20 mg PO DAILY #30 tab 02/03/20 [Rx] Magnesium Oxide [Mag-Ox] 400 mg PO BID #60 tab 02/03/20 [Rx] Potassium Chloride ER [K-Dur 20] 20 meq PO DAILY #30 tab.er.prt 02/03/20 [Rx] Follow up Appointment(s)/Referral(s): [facility], [NON-STAFF] - As Needed Carolynn Ramirez MD [Medical Doctor] - 02/23/20 3:15 pm ( ) Kilo Tabares MD [Primary Care Provider] - 1-2 days (Office closed Thursday. Please call office Thursday to make your appointment. Thank you.) Patient Instructions/Handouts: Multiple Sclerosis (DC), Hypoxia (GEN) Discharge Disposition: HOME WITH HOME HEALTH SERVICES
[2020-02-03 11:34] LABS: Glucose,Whole Blood 109 mg/dL (75-99)
--- NOTE | 2020-02-03 12:03 | P.PN ---
Subjective Progress Note Date: 02/03/20 Patient was seen at bedside and she stated that she's doing that better today compared to yesterday or the day prior to that. She denies of any headache, photophobia, phonophobia or nausea or vomiting. She denies of any weakness any numbness. He said that she'll be discharged home today in afternoon likely. Objective - Vital Signs Vital signs: Vital Signs Temp 97.8 F 02/03/20 07:00 Pulse 80 02/03/20 08:50 Resp 16 02/03/20 07:51 BP 141/84 02/03/20 07:00 Pulse Ox 97 02/03/20 07:00 Intake & Output 02/02/20 02/03/20 02/03/20 18:59 06:59 18:59 Intake Total 770 Balance 770 Intake: Intake, IV Titration 350 Amount Sodium Chloride 0.9% 1, 350 000 ml @ 130 mls/hr IV . Q7H42M [facility] Rx#:[id number] Oral 420 Other: Voiding Method Toilet Toilet Toilet # Voids 1 # Bowel Movements 1 - Exam GENERAL: The patient is lying in bed and is not in acute distress. She is currently eating at bedside. CHEST: The heart rate is regular rate rhythm. No murmurs to auscultation. LUNG: Clear to auscultation bilaterally no wheezing noted throughout. Not labored breathing. ABDOMEN/GI: Bowel sounds present in all 4 quadrants. No tenderness to palpation throughout. INTEGUMENTARY: Has erythematous bruise on left [place] area (from fall about 1 week ago). NEUROLOGICAL: Higher mental function: The patient is awake, alert, oriented to self, place and time. Patient is following commands. No aphasia and no neglect. Cranial nerves: The pupils are round, equal and reactive to light and accommodation. Visual schwarz are full to confrontation throughout. Extraocular movement is intact no nystagmus is noted. Facial sensation is normal to touch throughout. The facial strength is normal throughout. Tongue is midline and moved [id number] without any difficulty. No dysarthria is noted. Shoulder shrug is normal bilaterally. Motor: Gait is deferred. Strength is 5 out of 5 throughout. Normal tone and bulk. Cerebellum: Normal finger to nose bilaterally. Sensation: Sensation is normal to touch throughout. Reflexes (right/left): 2+ Plantars are downgoing bilaterally. - Labs CBC & Chem 7: 02/03/20 07:39 02/02/20 07:59 Labs: Abnormal Lab Results - Last 24 Hours (Table) 02/02/20 02/02/20 02/03/20 Range/Units 07:59 22:38 07:39 MCHC 30.3 L (31.0-37.0) g/dL Carbon Dioxide 35.1 H (21.6-31.8) mmol/L BUN 6.0 L (9.0-27.0) mg/dL Creatinine 0.4 L (0.6-1.5) mg/dL POC Glucose (mg/dL) 141 H (75-99) mg/dL Calcium 8.4 L (8.7-10.3) mg/dL AST 140 H (13-35) U/L ALT 392 H (8-44) U/L Total Protein 5.3 L (6.2-8.2) g/dL Globulin 1.5 L (1.6-3.3) g/dL 02/03/20 Range/Units 11:33 MCHC (31.0-37.0) g/dL Carbon Dioxide (21.6-31.8) mmol/L BUN (9.0-27.0) mg/dL Creatinine (0.6-1.5) mg/dL POC Glucose (mg/dL) 109 H (75-99) mg/dL Calcium (8.7-10.3) mg/dL AST (13-35) U/L ALT (8-44) U/L Total Protein (6.2-8.2) g/dL Globulin (1.6-3.3) g/dL Microbiology - Last 24 Hours (Table) 01/30/20 03:06 Blood Culture - Preliminary Blood No Growth after 96 hours 01/30/20 03:06 Blood Culture - Preliminary Blood No Growth after 96 hours Assessment and Plan Assessment: 54-year-old female with relapsing remitting multiple sclerosis admitted with fever, generalized weakness, decreased oral intake. She also had who body jerks for 2-3 which resolved and feels it typical for her MS. Pseudo-exacerbation of her MS. Likely the fever is the one that is unmask in the old MS lesion. Peripheral neuropathy Morbid obesity History of folate, B6 and vitamin D deficiency. Plan: MRI of the brain w/ and w/o: Was reported as white matter lesion in the chioma and centrum semiovale bilaterally around the lateral ventricles. White matter disease and appears improved compared to previous exam of 11/29/2018 with decreased intensity of pontine signal and also decreased in size and number of the periventricular white matter lesion. Contrast images shows no pathological enhancement of the brain. MRI of the C-spine w/ and w/o: Posterior mild disc herniation at the C4-C5. Small posterior disc bulge at the C6-C7. No spinal stenosis. No evidence of demyelinating disease of the cervical spinal cord. Since the patient had no acute the enhanced lesion we will not start the patient on any steroids at. Likely the patient had a underlying infection possibly viral that can unmask the old lesion. Regarding the patient peripheral neuropathy as she is on 1200 mg 3 times a day. I feel like that is large dose. We'll defer the management to the her neurologist as an outpatient (Dr. Ramirez). Upon discharge the patient will follow up with her neurologist as an outpatient regarding her MS management. There is no further workup needed at this time. She is clear from neurology perspective. Jayden Javier M.D. Neuro-hospitalist Time with Patient: Less than 30
[2020-02-03 12:38] LABS: African American GFR (CKD) 126.3 (60.0-200.0); Albumin 3.9 g/dL (3.80-4.90); Albumin/Globulin Ratio 2.44 (1.60-3.17); Anion Gap 9.1 mmol/L (4.00-12.00); Calcium 9.2 mg/dL (8.7-10.3); Carbon Dioxide 35.9 mmol/L (21.6-31.8); Globulin 1.6 g/dL (1.6-3.3); Potassium 4.5 mmol/L (3.5-5.5); Total Bilirubin 0.4 mg/dL (0.2-1.2); Total Protein 5.5 g/dL (6.2-8.2)
--- NOTE | 2020-02-06 01:35 | CDI ---
Documentation Clarification Form Date: 02/21/2020 From: Jeremy Marcum Phone: If you have a question about this query, please contact Caryn Cullen, Circulation Tender at [phone] between 8am and 5pm. Admit Date: 01/30/2020 Discharge Date: 02/03/2020 Patient Name: Hudson Morales Visit Number: [id number] ATTENTION: The Clinical Documentation Specialists (CDI) and [facility] Coding Staff appreciate your assistance in clarifying documentation. Please respond to the clarification below the line at the bottom and electronically sign. The CDI & [facility] Coding staff will review the response and follow-up if needed. Please note: Queries are made part of the Legal Health Record. If you have any questions, please contact the author of this message via ITS. Dear Dr Minor Patient admitted with MS exacerbation. The heart is enlarged.Interstitium is increased.There is blunting the right costophrenic angle. History/Risk Factors:HTN, COPD, Fibromyalgia VS/Pulse OX: Temp 98.1 F 02/02/20 06:52 Pulse 77 02/02/20 08:33 Resp 16 02/02/20 08:08 BP 106/73 02/02/20 06:52 Pulse Ox 94 L 02/02/20 02:40 Chest X Ray: Correlate for pulmonary venous hypertension and interstitial edema in a patient with pre-existing COPD, difficult to exclude early airspace disease, consider pneumonia, edema, follow-up suggested.Difficult to exclude small right pleural effusion. Treatment: IV lasix. Pulmonary vascular congestion.Lasix 40 mg IV push 1 and discontinue IV fluids and Hep-Lock patient Discharged with oral Furosemide. In your professional opinion, can you please clarify the Pulmonary vascular congestion related to CHF? x YES NO IF Yes type of CHF Systolic Heart Failure: Acute Chronic Acute on Chronic Diastolic Heart Failure: Acute x Chronic Acute on Chronic Unable to Determine Other, please specify MTDD
== END 2020-02-03 13:10 | disposition home health service (06) | DRG 59 ==
LOC: EC 02:44 → 4SSUR 06:09
PROVIDERS: ADMIT Internal Medicine; ATTEND Internal Medicine
DX: G35 Multiple sclerosis (principal); Z68.41 Body mass index [BMI] 40.0-44.9, adult; J96.11 Chronic respiratory failure with hypoxia; D84.9 Immunodeficiency, unspecified; I50.32 Chronic diastolic (congestive) heart failure; E66.01 Morbid (severe) obesity due to excess calories; F32.9 Major depressive disorder, single episode, unspecified; F17.200 Nicotine dependence, unspecified, uncomplicated; F41.1 Generalized anxiety disorder; G25.81 Restless legs syndrome; E86.0 Dehydration; Z20.828 Contact with and (suspected) exposure to other viral communicable diseases; H91.90 Unspecified hearing loss, unspecified ear; J44.9 Chronic obstructive pulmonary disease, unspecified; M79.7 Fibromyalgia; H54.7 Unspecified visual loss; M19.90 Unspecified osteoarthritis, unspecified site; S80.12XA Contusion of left lower leg, initial encounter; K21.9 Gastro-esophageal reflux disease without esophagitis; R50.9 Fever, unspecified; M81.0 Age-related osteoporosis without current pathological fracture; G31.84 Mild cognitive impairment of uncertain or unknown etiology; I11.9 Hypertensive heart disease without heart failure; K76.0 Fatty (change of) liver, not elsewhere classified; G62.9 Polyneuropathy, unspecified; E55.9 Vitamin D deficiency, unspecified; Z79.51 Long term (current) use of inhaled steroids; Z79.82 Long term (current) use of aspirin; Z79.899 Other long term (current) drug therapy; Z88.8 Allergy status to other drugs, medicaments and biological substances; Z90.710 Acquired absence of both cervix and uterus; Z87.01 Personal history of pneumonia (recurrent); Z85.42 Personal history of malignant neoplasm of other parts of uterus; Z82.49 Family history of ischemic heart disease and other diseases of the circulatory system; Z82.41 Family history of sudden cardiac death; Z82.3 Family history of stroke; Z82.0 Family history of epilepsy and other diseases of the nervous system
CPT/HCPCS: 36415; 70553; 71046; 72141; 74177; 76705; 80053; 81003; 82550; 83605; 83735; 84132; 85025; 85610; 85730; 87040; 93005; 94640; 94760; 96365; 99285

== ENCOUNTER 2020-03-26 04:25 | Inpatient (IN) | payer MEDICARE, OTHER ==
[2020-03-26] MEDS ORDERED: SODIUM CHLORIDE 0.9% 1,000 ML IV STA (04:54)
[2020-03-26] MEDS ORDERED: KETOROLAC 15 MG/ML 1 ML VIAL IVP STA (04:54)
[2020-03-26] MEDS ORDERED: HYDROmorphone 1 MG/ML 1 ML SYRINGE IVP STA ×2 (04:54→06:10)
[2020-03-26 05:12] LABS: Basophils # (A) 0.1 k/uL (0-0.2); Basophils % (A) 1 %; Eosinophils # (A) 0.2 k/uL (0-0.7); Eosinophils % (A) 2 %; HCT 48.4 % (34.0-46.0); HGB 15.4 gm/dL (11.4-16.0); Hypochromasia Slight; Lymphocytes # (A) 2.8 k/uL (1.0-4.8); Lymphocytes % (A) 23 %; MCH 31.6 pg (25.0-35.0); MCHC 31.8 g/dL (31.0-37.0); MCV 99.3 fL (80.0-100.0); Mean Platelet Volume 7.8; Monocytes # (A) 0.5 k/uL (0-1.0); Monocytes % (A) 4 %; Neutrophils # (A) 8.4 k/uL (1.3-7.7); Neutrophils % (A) 69 %; Platelet Count 215 k/uL (150-450); RBC 4.87 m/uL (3.80-5.40); RDW 12.7 % (11.5-15.5)
--- NOTE | 2020-03-26 05:12 | ED ---
Headache HPI - General Chief Complaint: Headache Stated Complaint: Headache Time Seen by Provider: 03/26/20 04:28 Source: RN notes reviewed, old records reviewed Mode of arrival: EMS Limitations: no limitations - History of Present Illness Initial Comments: This is a 54-year-old female with left-sided headache left retro-orbital pain. Throbbing in the left side of her head no vision changes. Patient has history of MS she does have similar symptoms of headache and MS as well as right arm numbness and tingling which is also related to her MS. Denying fevers no travel history no sick contacts patient keeping on her own. Patient denies any trauma. No neck pain. No significant weakness or loss of sensation MD Complaint: headache, other (Headache behind left eye, MS exacerbation) -: days(s) (4) Location: left, temporal Severity: moderate Severity scale (1-10): 7 Quality: aching, throbbing Consistency: constant Improves With: nothing Worsens With: none Context: other (None) Associated Symptoms: other (None) Treatments Prior to Arrival: none - Related Data Home Medications Medication Instructions Recorded Confirmed Aspirin 81 mg PO DAILY 02/20/14 01/30/20 LORazepam [Ativan] 1 mg PO Q8H PRN 02/20/14 01/30/20 Verapamil HCl [Calan] 120 mg PO DAILY 02/20/14 01/30/20 Gabapentin [Neurontin] 1,200 mg PO TID 08/19/16 01/30/20 Butalb/APAP/Caff 50-325-40Mg 1 tab PO Q8H PRN 03/25/17 01/30/20 [Fioricet 50-325-40] oxyCODONE-APAP 10-325MG [Percocet 1 tab PO TID PRN 01/28/18 01/30/20 10-325 mg] Budesonide/Formoterol Fumarate 2 puff INHALATION RT-BID 05/06/18 01/30/20 [Symbicort 160-4.5 Mcg Inhaler] Cholecalciferol [Vitamin D3 (25 2,000 unit PO DAILY 05/07/18 01/30/20 Mcg = 1000 Iu)] Multivitamins, Thera [Multivitamin 1 tab PO DAILY 05/07/18 01/30/20 (formulary)] Pantoprazole Sodium [Protonix] 40 mg PO BID 10/31/18 01/30/20 Ipratropium-Albuterol Nebulize 3 ml INHALATION RT-QID PRN 11/22/18 01/30/20 [Duoneb 0.5 mg-3 mg/3 ml Soln] Memantine [Namenda] 10 mg PO BID 11/22/18 01/30/20 Montelukast [Singulair] 10 mg PO DAILY 11/22/18 01/30/20 Fluticasone Nasal [place] [Flonase 2 spray EA NOSTRIL DAILY PRN 04/28/19 01/30/20 Nasal [place]] Methocarbamol [Robaxin-750] 750 mg PO TID PRN 04/28/19 01/30/20 Albuterol Sulfate [Ventolin HFA] 1 - 2 puff INHALATION RT-Q6H PRN 08/09/19 01/30/20 Nystatin 100,000 Unit/ml Susp 500,000 unit PO QID 09/04/19 01/30/20 [Mycostatin Oral Susp] Ascorbic Acid [Vitamin C] 1,000 mg PO DAILY 01/30/20 01/30/20 Docusate [Colace] 100 mg PO DAILY PRN 01/30/20 01/30/20 Zinc Gluconate [Zinc] 25 mg PO DAILY 01/30/20 01/30/20 Previous Rx's Medication Instructions Recorded rOPINIRole HCL [Requip] 0.25 mg PO TID #90 tab 01/31/18 PARoxetine [Paxil] 40 mg PO DAILY tab 05/09/18 hydroCHLOROthiazide [Hydrodiuril] 25 mg PO DAILY tab 11/26/18 Folic Acid 1 mg PO DAILY #30 tab 05/02/19 busPIRone HCl [Buspar] 10 mg PO TID #90 tab 05/02/19 Furosemide [Lasix] 20 mg PO DAILY #30 tab 02/03/20 Magnesium Oxide [Mag-Ox] 400 mg PO BID #60 tab 02/03/20 Potassium Chloride ER [K-Dur 20] 20 meq PO DAILY #30 tab.er.prt 02/03/20 Allergies Allergy/AdvReac Type Severity Reaction Status Date / Time baclofen AdvReac URINARY Verified 03/26/20 04:37 ISSUES dexamethasone [From Decadron] AdvReac "THOMPSON Verified 03/26/20 04:37 SKIN"/DEHYDRATION Review of Systems ROS Statement: Those systems with pertinent positive or pertinent negative responses have been documented in the HPI. ROS Other: All systems not noted in ROS Statement are negative. Past Medical History Past Medical History: Asthma, Cancer, COPD, Eye Disorder, Fibromyalgia, GERD/Reflux, Hearing Disorder / Deafness, Hypertension, Memory Impairment, Neurologic Disorder, Osteoarthritis (OA), Pneumonia, Syncope Additional Past Medical History / Comment(s): MS relapsing/remitting type, chronic bilateral eye pain/optic neuritis/ poor vision, cataracts bilaterally, chronic occipital neuralgia, osteoporosis, RLS, chronic hypoxic respiratory failure with home oxygen 2L/NC prn, chronic bronchitis, immunocompromised, elevated blood sugar with steroid use, uterine cancer with hysterectomy/radiation, heart murmur, mild cognitive impairment, chronic vertigo, falls, rheumatic fever as child, tinnitis bilaterally, allergic rhinitis. History of Any Multi-Drug Resistant Organisms: None Reported Past Surgical History: Bladder Surgery, Heart Catheterization, Hysterectomy Additional Past Surgical History / Comment(s): Nerve blocks, bladder suspension. Past Anesthesia/Blood Transfusion Reactions: No Reported Reaction Additional Past Anesthesia/Blood Transfusion Reaction / Comment(s): mild clausterphobia Past Psychological History: Anxiety, Depression Smoking Status: Current every day smoker Past Alcohol Use History: Rare Past Drug Use History: None Reported - Past Family History Mother Family Medical History: CVA/TIA, Myocardial Infarction ([place]) Additional Family Medical History / Comment(s): Mother is alive at age 75 with history of brain aneurysm, 3 strokes and 2 myocardial infarctions. Brain aneurysms run on mother's side of family Father Additional Family Medical History / Comment(s): Father at age 72 from a cardiac arrest thought to be due to a myocardial infarction. Sister(s) Additional Family Medical History / Comment(s): Patient has 2 sisters with no major medical problems. Patient does not have any brothers. Patient has 2 adult children with no major medical problems. Patient is only family member with MS. General Exam Limitations: no limitations General appearance: alert, in no apparent distress Head exam: Present: atraumatic, normocephalic, normal inspection Eye exam: Present: normal appearance, PERRL, EOMI. Absent: scleral icterus, conjunctival injection, periorbital swelling ENT exam: Present: normal exam, mucous membranes moist Neck exam: Present: normal inspection. Absent: tenderness, meningismus, lymphadenopathy Respiratory exam: Present: normal lung sounds bilaterally. Absent: respiratory distress, wheezes, rales, rhonchi, stridor Cardiovascular Exam: Present: regular rate, normal rhythm, normal heart sounds. Absent: systolic murmur, diastolic murmur, rubs, gallop, clicks GI/Abdominal exam: Present: soft, normal bowel sounds. Absent: distended, tenderness, guarding, rebound, rigid Extremities exam: Present: normal inspection, full ROM, normal capillary refill. Absent: tenderness, pedal edema, joint swelling, calf tenderness Back exam: Present: normal inspection Neurological exam: Present: alert, oriented X3, CN II-XII intact Psychiatric exam: Present: normal affect, normal mood Skin exam: Present: warm, dry, intact, normal color. Absent: rash Course Vital Signs 03/26/20 04:26 Temperature 97.9 F Pulse Rate 98 Respiratory 18 Rate Blood Pressure 138/91 O2 Sat by Pulse 95 Oximetry - Reevaluation(s) Reevaluation #1: 03/26/20 05:11 Medical records reviewed Reevaluation #2: 03/26/20 05:54 Patient feels moderately improved here in the ER Reevaluation #3: 03/26/20 05:54 Spoke with patient regarding tests and findings here in the ER, questions answered - Consultations Consultation #1: Spoke with Dr. Beckett will admit for neurology to evaluate Medical Decision Making - Medical Decision Making 54 female DF for evaluation of headache. Patient states she has get this headache with her MS exacerbation so [place] for MS exacerbation neurology to evaluate the possibility of ruling out temporal arteritis - Lab Data Result diagrams: 03/26/20 04:57 03/26/20 04:57 Lab Results 03/26/20 03/26/20 03/26/20 Range/Units 04:57 04:57 04:57 WBC 12.0 H (3.8-10.6) k/uL RBC 4.87 (3.80-5.40) m/uL Hgb 15.4 (11.4-16.0) gm/dL Hct 48.4 H (34.0-46.0) % MCV 99.3 (80.0-100.0) fL MCH 31.6 (25.0-35.0) pg MCHC 31.8 (31.0-37.0) g/dL RDW 12.7 (11.5-15.5) % Plt Count 215 (150-450) k/uL MPV 7.8 Neutrophils % 69 % Lymphocytes % 23 % Monocytes % 4 % Eosinophils % 2 % Basophils % 1 % Neutrophils # 8.4 H (1.3-7.7) k/uL Lymphocytes # 2.8 (1.0-4.8) k/uL Monocytes # 0.5 (0-1.0) k/uL Eosinophils # 0.2 (0-0.7) k/uL Basophils # 0.1 (0-0.2) k/uL Hypochromasia Slight PT 9.5 (9.0-12.0) sec INR 0.9 (<1.2) APTT 23.7 (22.0-30.0) sec Sodium 136 L (137-145) mmol/L Potassium 4.0 (3.5-5.1) mmol/L Chloride 94 L (98-107) mmol/L Carbon Dioxide 39 H (22-30) mmol/L Anion Gap 3 mmol/L BUN 12 (7-17) mg/dL Creatinine 0.48 L (0.52-1.04) mg/dL Est GFR (CKD-EPI)AfAm >90 (>60 ml/min/1.73 sqM) Est GFR (CKD-EPI)NonAf >90 (>60 ml/min/1.73 sqM) Glucose 123 H (74-99) mg/dL Plasma Lactic Acid Adalid (0.7-2.0) mmol/L Calcium 8.9 (8.4-10.2) mg/dL Magnesium 1.8 (1.6-2.3) mg/dL Total Bilirubin 0.5 (0.2-1.3) mg/dL AST 24 (14-36) U/L ALT 22 (4-34) U/L Alkaline Phosphatase 119 (38-126) U/L Lactate Dehydrogenase 459 (313-618) U/L C-Reactive Protein 27.4 H (<10.0) mg/L Total Protein 6.3 (6.3-8.2) g/dL Albumin 4.0 (3.5-5.0) g/dL 03/26/20 Range/Units 04:57 WBC (3.8-10.6) k/uL RBC (3.80-5.40) m/uL Hgb (11.4-16.0) gm/dL Hct (34.0-46.0) % MCV (80.0-100.0) fL MCH (25.0-35.0) pg MCHC (31.0-37.0) g/dL RDW (11.5-15.5) % Plt Count (150-450) k/uL MPV Neutrophils % % Lymphocytes % % Monocytes % % Eosinophils % % Basophils % % Neutrophils # (1.3-7.7) k/uL Lymphocytes # (1.0-4.8) k/uL Monocytes # (0-1.0) k/uL Eosinophils # (0-0.7) k/uL Basophils # (0-0.2) k/uL Hypochromasia PT (9.0-12.0) sec INR (<1.2) APTT (22.0-30.0) sec Sodium (137-145) mmol/L Potassium (3.5-5.1) mmol/L Chloride (98-107) mmol/L Carbon Dioxide (22-30) mmol/L Anion Gap mmol/L BUN (7-17) mg/dL Creatinine (0.52-1.04) mg/dL Est GFR (CKD-EPI)AfAm (>60 ml/min/1.73 sqM) Est GFR (CKD-EPI)NonAf (>60 ml/min/1.73 sqM) Glucose (74-99) mg/dL Plasma Lactic Acid Adalid 1.2 (0.7-2.0) mmol/L Calcium (8.4-10.2) mg/dL Magnesium (1.6-2.3) mg/dL Total Bilirubin (0.2-1.3) mg/dL AST (14-36) U/L ALT (4-34) U/L Alkaline Phosphatase (38-126) U/L Lactate Dehydrogenase (313-618) U/L C-Reactive Protein (<10.0) mg/L Total Protein (6.3-8.2) g/dL Albumin (3.5-5.0) g/dL - EKG Data -: EKG Interpreted by Me (EKG is sinus rhythm 88 OR 150 QRS 76 QTC 481) - Radiology Data Radiology results: report reviewed (CT brain is negative for acute disease), image reviewed Disposition Clinical Impression: Multiple sclerosis exacerbation, Multiple sclerosis, Intractable headache, Headache Narrative: ro Left Temporal Arteritis Disposition: ADMITTED IP TO THIS HOSP Condition: Good Is patient prescribed a controlled substance at d/c from ED?: No Referrals: Kilo Tabares MD [Primary Care Provider] - 1-2 days
[2020-03-26 05:20] LABS: INR 0.9 (<1.2); Partial Thromboplastin Time 23.7 sec (22.0-30.0); Prothrombin Time 9.5 sec (9.0-12.0)
--- NOTE | 2020-03-26 05:38 | CT ---
EXAM: CT Head Without Intravenous Contrast CLINICAL HISTORY: Headaches. TECHNIQUE: Axial computed tomography images of the head/brain without intravenous contrast. CTDI is 49.27 mGy and DLP is 1088.40 mGy-cm. This CT exam was performed using one or more of the following dose reduction techniques: automated exposure control, adjustment of the mA and/or kV according to patient size, and/or use of iterative reconstruction technique. COMPARISON: 07/29/2019. FINDINGS: Brain: No abnormal extra-axial collection. No hemorrhage. Midline shift: No midline shift or mass-effect. Midline anatomy is unremarkable. Ventricles: The ventricular system is age appropriate. Bones/joints: Calvarium is unremarkable. Hyperostosis frontalis. No acute fracture. Soft tissues: Unremarkable. Vasculature: Atherosclerotic disease. Sinuses: Mild chronic ethmoid sinusitis. Mastoid air cells: Mastoid air cells are well pneumatized. IMPRESSION: 1. No acute intracranial pathology. 2. Age-related changes per 3. If there is concern for etiology such as early acute lacunar infarcts, magnetic resonance imaging of the brain with diffusion-weighted sequences should be performed for follow-up.
[2020-03-26 05:40] LABS: ALT 22 U/L (4-34); AST 24 U/L (14-36); African American GFR (CKD) >90 (>60 ml/min/1.73 sqM); Alkaline Phosphatase 119 U/L (38-126); Anion Gap 3 mmol/L; Blood Urea Nitrogen 12 mg/dL (7-17); C Reactive Protein 27.4 mg/L (<10.0); Calcium 8.9 mg/dL (8.4-10.2); Carbon Dioxide 39 mmol/L (22-30); Chloride 94 mmol/L (98-107); Glucose 123 mg/dL (74-99); LDH 459 U/L (313-618); Magnesium 1.8 mg/dL (1.6-2.3); Non-African American GFR(CKD) >90 (>60 ml/min/1.73 sqM); Sodium 136 mmol/L (137-145); Total Bilirubin 0.5 mg/dL (0.2-1.3); Total Protein 6.3 g/dL (6.3-8.2)
[2020-03-26] MEDS ORDERED: diphenhydrAMINE 50 MG/ML 1 ML VIAL IVP STA (06:10)
[2020-03-26 06:20] LABS: Erythrocyte Sedimentation Rate 2 mm/hr (0-20)
[2020-03-26] MEDS: SODIUM CHLORIDE 0.9% 1,000 ML IV SCH ×2 (06:46→15:37)
[2020-03-26] MEDS ORDERED: NYSTATIN 100,000 UNIT/ML SUSP 500,000 UNIT/5 ML CUP PO PRN (07:44)
[2020-03-26] MEDS ORDERED: POTASSIUM CHLORIDE ER 20 MEQ TAB.ER PO PRN (07:44)
[2020-03-26] MEDS ORDERED: ALBUTEROL HFA INHALER INHALATION PRN (07:44)
[2020-03-26] MEDS ORDERED: FLUTICASONE 50MCG/SPRAY NASAL 16GM EA NOSTRIL PRN (07:44)
[2020-03-26] MEDS ORDERED: DOCUSATE 100 MG CAP PO PRN (07:44)
[2020-03-26] MEDS ORDERED: FUROSEMIDE 20 MG TAB PO PRN (07:44)
[2020-03-26 09:32] LABS: Ferritin 120.3 ng/mL (10.0-291.0)
[2020-03-26] MEDS: GABAPENTIN 400 MG CAP PO SCH ×3 (09:55→22:21)
[2020-03-26] MEDS: oxyCODONE-APAP 10-325MG 1 EACH TAB PO SCH ×3 (09:56→22:20)
[2020-03-26] MEDS: LORazepam 1 MG TAB PO SCH ×3 (09:57→22:20)
[2020-03-26] MEDS: FOLIC ACID 1 MG TAB PO SCH (09:57)
[2020-03-26] MEDS: hydroCHLOROthiazide 25 MG TAB PO SCH (09:57)
[2020-03-26] MEDS: PARoxetine 20 MG TAB PO SCH (09:57)
[2020-03-26] MEDS: MONTELUKAST 10 MG TAB PO SCH (09:58)
[2020-03-26] MEDS: VERAPAMIL SR 120 MG TABLET.ER PO SCH (09:58)
[2020-03-26] MEDS: MEMANTINE 10 MG TAB PO SCH ×2 (09:58→20:28)
[2020-03-26] MEDS: ASPIRIN 81 MG PO SCH (09:58)
[2020-03-26] MEDS: methocarbamoL 750 MG TAB PO SCH ×3 (09:58→22:21)
[2020-03-26] MEDS: MULTIVITAMINS, THERA 1 EACH TAB PO SCH (10:05)
[2020-03-26] MEDS: busPIRone HCl 10 MG TAB PO SCH ×3 (10:05→22:20)
[2020-03-26] MEDS: PANTOPRAZOLE 40 MG TABLET PO SCH ×2 (10:05→20:28)
[2020-03-26] MEDS: NON FORMULARY DRUG (Zinc Gluconate 50 MG Tab) PO SCH (10:06)
[2020-03-26] MEDS: carBAMazepine 200 MG TAB PO SCH ×2 (10:18→20:28)
[2020-03-26] MEDS: BUTALB/APAP/CAFF 50-325-40MG TAB PO SCH ×3 (11:45→20:27)
[2020-03-26] MEDS: HYDROmorphone 1 MG/ML 1 ML SYRINGE IVP PRN ×3 (11:50→20:26)
--- NOTE | 2020-03-26 11:57 | P.HPIM ---
History of Present Illness H&P Date: 03/26/20 HISTORY OF PRESENT ILLNESS This is a 54 year old female patient of Dr. Tabares and Dr. Ramirez with a past medical history of relapsing remitting multiple sclerosis, hypertension and hypertensive cardiovascular disease with left ventricular hypertrophy, history of GERD, multiple sclerosis, COPD, asthma, history of osteoporosis, uterine cancer status post surgery, chronic hypoxic respiratory failure on home O2 at 2 L nasal cannula, tobacco use. She has had multiple admissions for acute exacerbation of her multiple sclerosis. Patient complains of headache that felt like her head was on fire that started on Thursday. It was in the left evangelical area. Worsen over the weekend and on Thursday was involving whole left side of her head area she has generalized tenderness to entire scalp area. She also states that she has been placing eardrops in her left ear and occasionally to her right. She denies having any fever or chills. She presented to [facility] emergency center afebrile, heart rate 98, blood pressure 138/91, pulse ox 95%. WBC 12.0, hemoglobin 15.4. CO2 39, creatinine 0.48. Blood sugar 123. Liver function tests normal. C-reactive protein 27.4, sed rate normal. Lactic acid 1.2. EKG is a sinus rhythm with no acute ST changes. CAT scan of the brain did not show any acute intracranial pathology. Patient was started on Solu-Medrol 250 mg every 6 hours and [facility]. Subsequently, Solu-Medrol has been discontinued and patient started on Tegretol for trigeminal neuralgia. Consult with neurology in place and vascular surgeon for possible temporal arteritis. Sed rate is noted to be normal. REVIEW OF SYSTEMS Constitutional: No fever, no chills, no night sweats. No weight change. Rep orts weakness, fatigue or lethargy. No daytime sleepiness. EENT: Reports headache. No blurred vision or double vision, no loss of vision. No loss of Hearing, no ringing in the ears, no dizziness. No nasal drainage or congestion. No epistaxis. No sore throat. Lungs: No shortness of breath, cough, no sputum production. No wheezing. Cardiovascular: No chest pain, no lower extremity edema. No palpitations. No paroxysmal nocturnal dyspnea. No orthopnea. No lightheadedness or dizziness. No syncopal episodes. Abdominal: No abdominal pain. No nausea, vomiting. No diarrhea. No constipati on. No bloody or tarry stools.. No loss of appetite. Genitourinary: No dysuria, increased frequency, urgency. No urinary retention. Musculoskeletal: No myalgias. Reports muscle weakness, no gait dysfunction, no frequent falls. No back pain. No neck pain. Integumentary: No wounds, no lesions. No rash or pruritus. No unusual bruising. No change in hair or nails. Neurologic: No aphasia. No facial droop. No change in mentation. No head injury. No headache. No paralysis. No paresthesia. Psychiatric: No depression. No anxiety. No mood swings. Endocrine: No abnormal blood sugars. No weight change. No excessive sweating or thirst. No cold intolerance. SOCIAL HISTORY Patient started smoking at age 18 and has smoked on and off since then. She is currently smoking 1 pack per day. FAMILY HISTORY Mother is alive at age 74 with history of brain aneurysm, 3 strokes and 2 myocardial infarctions. Brain aneurysms run on mother's side of family. Father at age 72 from a cardiac arrest thought to be due to a myocardial infarction. Patient has 2 sisters with no major medical problems. Patient does not have any brothers. Patient has 2 adult children with no major medical problems. Patient is only family member with MS. PHYSICAL EXAMINATION Gen: This is a morbidly obese 54-year-old -[place] female. She is resting in bed, patient able to speak in full sentences. HEENT: Head is atraumatic, normocephalic. Pupils equal, round. Sclerae is anicteric. Patient has tenderness in the entire left side of her scalp. No significant tenderness over the temporal artery area. NECK: Supple. No JVD. No lymphadenopathy. No thyromegaly. LUNGS: Clear to auscultation. No wheezes or rhonchi. No intercostal retractions. HEART: Regular rate and rhythm. No murmur. ABDOMEN: Soft. Bowel sounds are present. No masses. Mild left-sided tenderness. EXTREMITIES: No pedal edema. No calf tenderness. NEUROLOGICAL: Patient is awake, alert and oriented x3. Cranial nerves 2 through 12 are grossly intact. Hand shellfish checker equal and strong bilaterally, foot push pull strong bilaterally. ASSESSMENT AND PLAN 1. Headache possibly related to trigeminal neuralgia, rule out temporal arter itis. Consult with neurology and vascular surgery. Patient started on Tegretol 200 mg twice daily. 2. Possible MS exacerbation seems unlikely. Solu-Medrol will be discontinued for now, neurology consult. 3. History of relapsing remitting multiple sclerosis. 4. Chronic pain and occipital neuralgia under the care of Dr. Ramirez. Continue gabapentin 1200mg 3 times daily, Percocet one 3 times daily as needed, Fioricet as needed. 5. Hypertension and hypertensive cardiovascular disease. Hydrochlorothiazide 25 mg daily, verapamil 120 mg orally once every day. 6. Obesity with possible obstructive sleep apnea and obesity hypoventilation syndrome. 7. Mild intermittent asthma and COPD. Continue albuterol inhaler every 6 hours as needed, Symbicort twice daily, Singulair 10 mg daily, Flonase as needed. 8. Fibromyalgia. Continue gabapentin 1200 mg orally 3 times every day. 8. Generalized anxiety disorder. Continue Ativan 1 mg every 8 hours as needed. 9. Recurrent depression. Continue Paxil 40 mg daily. 10. Chronic tobacco use and dependence. Smoking cessation and counseling an increased risk of CAD, CVA, and malignancy. Nicotine patch 21mg. 11. Mild cognitive impairment. Continue patient on Namenda 10 mg orally twice every day. 13. Restless leg syndrome. Continue Requip 0.25 mg 2 times daily 14. DVT prophylaxis. Heparin subcu. 15. GERD and GI prophylaxis. Continue with Protonix 40 mg orally twice every day. CODE STATUS: Full code Patient will be admitted to the hospital for a minimum of 2 night stay. DISCHARGE PLAN Home with [facility]. Impression and plan of care have been directed as dictated by the signing physician. Elaine Nguyen nurse practitioner acting as scribe for signing physician. Past Medical History Past Medical History: Asthma, Cancer, COPD, Eye Disorder, Fibromyalgia, GERD/Reflux, Hearing Disorder / Deafness, Hypertension, Memory Impairment, Ne urologic Disorder, Osteoarthritis (OA), Pneumonia, Syncope Additional Past Medical History / Comment(s): MS relapsing/remitting type, chronic bilateral eye pain/optic neuritis/ poor vision, cataracts bilaterally, chronic occipital neuralgia, osteoporosis, RLS, chronic hypoxic respiratory failure with home oxygen 2L/NC prn, chronic bronchitis, immunocompromised, elevated blood sugar with steroid use, uterine cancer with hysterectomy/radiation, heart murmur, mild cognitive impairment, chronic vertigo, falls, rheumatic fever as child, tinnitis bilaterally, allergic rhinit is. History of Any Multi-Drug Resistant Organisms: None Reported Past Surgical History: Bladder Surgery, Heart Catheterization, Hysterectomy Additional Past Surgical History / Comment(s): Nerve blocks, bladder suspension. Past Anesthesia/Blood Transfusion Reactions: No Reported Reaction Additional Past Anesthesia/Blood Transfusion Reaction / Comment(s): mild clausterphobia Past Psychological History: Anxiety, Depression Additional Psychological History / Comment(s): Pt resides alone. She uses a cane or walker or wheelchair. She has a private hire nurse aide who organizers her meds in a equipment planner but pt takes her own meds, aide assists her with her ADLs. This aide also prepares meals/shopping and cleaning. Pt does not drive, she has her friends take her to appts or sometimes her aide drives her. Smoking Status: Current every day smoker Past Alcohol Use History: Rare Additional Past Alcohol Use History / Comment(s): Patient started smoking at age 18 and has smoked on and off since then. She is currently smoking 1 pack per day. Past Drug Use History: None Reported - Past Family History Mother Family Medical History: CVA/TIA, Myocardial Infarction ([place]) Additional Family Medical History / Comment(s): Mother is alive at age 75 with history of brain aneurysm, 3 strokes and 2 myocardial infarctions. Brain aneurysms run on mother's side of family Father Additional Family Medical History / Comment(s): Father at age 72 from a cardiac arrest thought to be due to a myocardial infarction. Sister(s) Additional Family Medical History / Comment(s): Patient has 2 sisters with no major medical problems. Patient does not have any brothers. Patient has 2 adult children with no major medical problems. Patient is only family member with MS. Medications and Allergies Home Medications Medication Instructions Recorded Confirmed Type Aspirin 81 mg PO DAILY 02/20/14 03/26/20 History LORazepam [Ativan] 1 mg PO Q8H 02/20/14 03/26/20 History Verapamil HCl [Calan] 120 mg PO DAILY 02/20/14 03/26/20 History Gabapentin [Neurontin] 1,200 mg PO TID 08/19/16 03/26/20 History Butalb/APAP/Caff 50-325-40Mg 1 tab PO Q8H 03/25/17 03/26/20 History [Fioricet 50-325-40] oxyCODONE-APAP 10-325MG [Percocet 1 tab PO TID 01/28/18 03/26/20 History 10-325 mg] rOPINIRole HCL [Requip] 0.25 mg PO TID #90 tab 01/31/18 03/26/20 Rx Budesonide/Formoterol Fumarate 2 puff INHALATION RT-BID 05/06/18 03/26/20 Histor y [Symbicort 160-4.5 Mcg Inhaler] Cholecalciferol [Vitamin D3 (25 2,000 unit PO DAILY 05/07/18 03/26/20 History Mcg = 1000 Iu)] Multivitamins, Thera [Multivitamin 1 tab PO DAILY 05/07/18 03/26/20 History (formulary)] PARoxetine [Paxil] 40 mg PO DAILY tab 05/09/18 03/26/20 Rx Pantoprazole Sodium [Protonix] 40 mg PO BID 10/31/18 03/26/20 History Ipratropium-Albuterol Nebulize 3 ml INHALATION RT-QID PRN 11/22/18 03/26/20 History [Duoneb 0.5 mg-3 mg/3 ml Soln] Memantine [Namenda] 10 mg PO BID 11/22/18 03/26/20 History Montelukast [Singulair] 10 mg PO DAILY 11/22/18 03/26/20 History hydroCHLOROthiazide [Hydrodiuril] 25 mg PO DAILY tab 11/26/18 03/26/20 Rx Fluticasone Nasal [place] [Flonase 2 spray EA NOSTRIL DAILY PRN 04/28/19 03/26/20 History Nasal [place]] Methocarbamol [Robaxin-750] 750 mg PO TID 04/28/19 03/26/20 History Folic Acid 1 mg PO DAILY #30 tab 05/02/19 03/26/20 Rx busPIRone HCl [Buspar] 10 mg PO TID #90 tab 05/02/19 03/26/20 Rx Albuterol Sulfate [Ventolin HFA] 1 - 2 puff INHALATION RT-Q6H PRN 08/09/19 03/26/20 History Nystatin 100,000 Unit/ml Susp 500,000 unit PO QID PRN 09/04/19 03/26/20 History [Mycostatin Oral Susp] Ascorbic Acid [Vitamin C] 1,000 mg PO DAILY 01/30/20 03/26/20 History Docusate [Colace] 100 mg PO DAILY PRN 01/30/20 03/26/20 History Zinc Gluconate [Zinc] 25 mg PO DAILY 01/30/20 03/26/20 History Ear Drops (Unknown) 1 dose LEFT EAR ONCE 03/26/20 03/26/20 History Furosemide [Lasix] 20 mg PO DAILY PRN 03/26/20 03/26/20 History Pain Cream (Unknown) 1 applic TOPICAL BID 03/26/20 03/26/20 History Potassium Chloride ER [K-Dur ] 20 meq PO DAILY PRN 03/26/20 03/26/20 History Allergies Allergy/AdvReac Type Severity Reaction Status Date / Time baclofen AdvReac URINARY Verified 03/26/20 06:40 ISSUES dexamethasone [From Decadron] AdvReac "THOMPSON Verified 03/26/20 06:40 SKIN"/DEHYDRATION Physical Exam Vitals: Vital Signs Temp Pulse Pulse Resp BP BP Pulse Ox 03/26/20 09:08 98.0 F 93 18 120/70 97 03/26/20 06:36 78 18 130/70 97 03/26/20 04:26 97.9 F 98 18 138/91 95 Intake and Output 03/25/20 03/26/20 03/26/20 22:59 06:59 14:59 Other: Weight 105.233 kg 105.233 kg Results CBC & Chem 7: 03/26/20 04:57 03/26/20 04:57 Labs: Abnormal Lab Results - Last 24 Hours (Table) 03/26/20 03/26/20 Range/Units 04:57 04:57 WBC 12.0 H (3.8-10.6) k/uL Hct 48.4 H (34.0-46.0) % Neutrophils # 8.4 H (1.3-7.7) k/uL Sodium 136 L (137-145) mmol/L Chloride 94 L (98-107) mmol/L Carbon Dioxide 39 H (22-30) mmol/L Creatinine 0.48 L (0.52-1.04) mg/dL Glucose 123 H (74-99) mg/dL C-Reactive Protein 27.4 H (<10.0) mg/L Thrombosis Risk Factor Assmnt - Choose All That Apply Each Factor Represents 1 point: Age 41-60 years Thrombosis Risk Factor Assessment Total Risk Factor Score: 1 Thrombosis Risk Factor Assessment Level: Low Risk
--- NOTE | 2020-03-26 12:10 | P.GSCN ---
History of Present Illness Consult date: 03/26/20 Reason for Consult: Left temporal headache, possible temporal arteritis biopsy Requesting physician: Zan Minor History of present illness: C pleasant 54-year-old -[place] female who came into the emergency dep artment with left-sided headache that she states started a few days ago. We were consulted to see the patient regarding possible need for temporal artery biopsy to rule out temporal arterial arteritis. Her past medical history significant for asthma, COPD, multiple sclerosis, smoker, fibromyalgia, hearing disorder, history of optic neuritis, chronic occipital neuralgias, uterine cancer, cataracts, tinnitus, and memory impairment.She describes the headache as a"sizzle or burning feeling" that goes from behind her left eye, along her temporal hairline, and posterior temporal region. She states Thursday she was with a friend who was supposed to wash her hair, however when she started touching her head the pain became worse so she had her stop. The pain got worse Thursday night into Thursday morning which she stated felt like it was on fire. She states she's does have some throbbing in her ear. She states she may have some blurred vision in the left eye with possible spots at times. She states she had the same feeling however not as intense on her right side just a few weeks ago. She had a CT of the brain showed no acute intracranial pathology. Age-related changes. Mild elevation her CRP at 27.4, is sed rate was 2. She does state her pain has improved some since admission. She is denying any other focal deficits. Review of Systems 14 point review systems was completed all pertinent positives and negatives as stated in the HPI Past Medical History Past Medical History: Asthma, Cancer, COPD, Eye Disorder, Fibromyalgia, GERD/Reflux, Hearing Disorder / Deafness, Hypertension, Memory Impairment, Neurologic Disorder, Osteoarthritis (OA), Pneumonia, Syncope Additional Past Medical History / Comment(s): MS relapsing/remitting type, chronic bilateral eye pain/optic neuritis/ poor vision, cataracts bilaterally, chronic occipital neuralgia, osteoporosis, RLS, chronic hypoxic respiratory failure with home oxygen 2L/[place] prn, chronic bronchitis, immunocompromised, elevated blood sugar with steroid use, uterine cancer with hysterectomy/radiation, heart murmur, mild cognitive impairment, chronic vertigo, falls, rheumatic fever as child, tinnitis bilaterally, allergic rhinitis. History of Any Multi-Drug Resistant Organisms: None Reported Past Surgical History: Bladder Surgery, Heart Catheterization, Hysterectomy Additional Past Surgical History / Comment(s): Nerve blocks, bladder suspension. Past Anesthesia/Blood Transfusion Reactions: No Reported Reaction Additional Past Anesthesia/Blood Transfusion Reaction / Comm: mild clausterphobia Past Psychological History: Anxiety, Depression Additional Psychological History / Comment(s): Pt resides alone. She uses a cane or walker or wheelchair. She has a private hire nurse aide who organizers her meds in a inventory control planner but pt takes her own meds, aide assists her with her ADLs. This aide also prepares meals/shopping and cleaning. Pt does not drive, she has her friends take her to appts or sometimes her aide drives her. Smoking Status: Current every day smoker Past Alcohol Use History: Rare Additional Past Alcohol Use History / Comment(s): Patient started smoking at age 18 and has smoked on and off since then. She is currently smoking 1 pack per day. Past Drug Use History: None Reported - Past Family History Mother Family Medical History: CVA/TIA, Myocardial Infarction ([place]) Additional Family Medical History / Comment(s): Mother is alive at age 75 with history of brain aneurysm, 3 strokes and 2 myocardial infarctions. Brain aneurysms run on mother's side of family Father Additional Family Medical History / Comment(s): Father at age 72 from a cardiac arrest thought to be due to a myocardial infarction. Sister(s) Additional Family Medical History / Comment(s): Patient has 2 sisters with no major medical problems. Patient does not have any brothers. Patient has 2 adult children with no major medical problems. Patient is only family member with MS. Medications and Allergies Home Medications Medication Instructions Recorded Confirmed Type Aspirin 81 mg PO DAILY 02/20/14 03/26/20 History LORazepam [Ativan] 1 mg PO Q8H 02/20/14 03/26/20 History Verapamil HCl [Calan] 120 mg PO DAILY 02/20/14 03/26/20 History Gabapentin [Neurontin] 1,200 mg PO TID 08/19/16 03/26/20 History Butalb/APAP/Caff 50-325-40Mg 1 tab PO Q8H 03/25/17 03/26/20 History [Fioricet 50-325-40] oxyCODONE-APAP 10-325MG [Percocet 1 tab PO TID 01/28/18 03/26/20 History 10-325 mg] rOPINIRole HCL [Requip] 0.25 mg PO TID #90 tab 01/31/18 03/26/20 Rx Budesonide/Formoterol Fumarate 2 puff INHALATION RT-BID 05/06/18 03/26/20 History [Symbicort 160-4.5 Mcg Inhaler] Cholecalciferol [Vitamin D3 (25 2,000 unit PO DAILY 05/07/18 03/26/20 History Mcg = 1000 Iu)] Multivitamins, Thera [Multivitamin 1 tab PO DAILY 05/07/18 03/26/20 History (formulary)] PARoxetine [Paxil] 40 mg PO DAILY tab 05/09/18 03/26/20 Rx Pantoprazole Sodium [Protonix] 40 mg PO BID 10/31/18 03/26/20 History Ipratropium-Albuterol Nebulize 3 ml INHALATION RT-QID PRN 11/22/18 03/26/20 History [Duoneb 0.5 mg-3 mg/3 ml Soln] Memantine [Namenda] 10 mg PO BID 11/22/18 03/26/20 History Montelukast [Singulair] 10 mg PO DAILY 11/22/18 03/26/20 History hydroCHLOROthiazide [Hydrodiuril] 25 mg PO DAILY tab 11/26/18 03/26/20 Rx Fluticasone Nasal [place] [Flonase 2 spray EA NOSTRIL DAILY PRN 04/28/19 03/26/20 History Nasal [place]] Methocarbamol [Robaxin-750] 750 mg PO TID 04/28/19 03/26/20 History Folic Acid 1 mg PO DAILY #30 tab 05/02/19 03/26/20 Rx busPIRone HCl [Buspar] 10 mg PO TID #90 tab 05/02/19 03/26/20 Rx Albuterol Sulfate [Ventolin HFA] 1 - 2 puff INHALATION RT-Q6H PRN 08/09/19 03/26/20 History Nystatin 100,000 Unit/ml Susp 500,000 unit PO QID PRN 09/04/19 03/26/20 History [Mycostatin Oral Susp] Ascorbic Acid [Vitamin C] 1,000 mg PO DAILY 01/30/20 03/26/20 History Docusate [Colace] 100 mg PO DAILY PRN 01/30/20 03/26/20 History Zinc Gluconate [Zinc] 25 mg PO DAILY 01/30/20 03/26/20 History Ear Drops (Unknown) 1 dose LEFT EAR ONCE 03/26/20 03/26/20 History Furosemide [Lasix] 20 mg PO DAILY PRN 03/26/20 03/26/20 History Pain Cream (Unknown) 1 applic TOPICAL BID 03/26/20 03/26/20 History Potassium Chloride ER [K-Dur 20] 20 meq PO DAILY PRN 03/26/20 03/26/20 History Allergies Allergy/AdvReac Type Severity Reaction Status Date / Time baclofen AdvReac URINARY Verified 03/26/20 06:40 ISSUES dexamethasone [From Decadron] AdvReac "THOMPSON Verified 03/26/20 06:40 SKIN"/DEHYDRATION Surgical - Exam Vital Signs Temp Pulse Resp BP Pulse Ox 97.9 F 98 18 138/91 95 03/26/20 04:26 03/26/20 04:26 03/26/20 04:26 03/26/20 04:26 03/26/20 04:26 General appearance: The patient is alert, oriented, in no acute distress. HET: Head is normocephalic and atraumatic. Pupils are equal and reactive. Extraocular movement intact. Neck: Supple without lymphadenopathy. Trachea midline. Heart: S1 S2. Regular rate and rhythm. Lungs: No crackles or wheezes are heard. Abdomen: Soft, nontender, nondistended. Extremities: Normal skin color and turgor. No cyanosis, rash, ulceration, clubbing, or edema. Radial pulses 2/4 bilaterally. Skin: No rashes or erythema noted on scalp. Neurological: No focal deficits. Strength and sensation are grossly intact. Patient has facial symmetry, tongue protrudes midline, speech is fluent, extraocular movement intact bilaterally. She does have some tenderness to palpation along her left temporal region. Results CT of brain shows no acute intracranial pathology, age-related changes. Mild chronic ethmoid sinusitis - Labs 03/26/20 04:57 03/26/20 04:57 Abnormal Lab Results - Last 24 Hours (Table) 03/26/20 03/26/20 Range/Units 04:57 04:57 WBC 12.0 H (3.8-10.6) k/uL Hct 48.4 H (34.0-46.0) % Neutrophils # 8.4 H (1.3-7.7) k/uL Sodium 136 L (137-145) mmol/L Chloride 94 L (98-107) mmol/L Carbon Dioxide 39 H (22-30) mmol/L Creatinine 0.48 L (0.52-1.04) mg/dL Glucose 123 H (74-99) mg/dL C-Reactive Protein 27.4 H (<10.0) mg/L Diabetes panel 03/26/20 Range/Units 04:57 Sodium 136 L (137-145) mmol/L Potassium 4.0 (3.5-5.1) mmol/L Chloride 94 L (98-107) mmol/L Carbon Dioxide 39 H (22-30) mmol/L BUN 12 (7-17) mg/dL Creatinine 0.48 L (0.52-1.04) mg/dL Glucose 123 H (74-99) mg/dL Calcium 8.9 (8.4-10.2) mg/dL AST 24 (14-36) U/L ALT 22 (4-34) U/L Alkaline Phosphatase 119 (38-126) U/L Total Protein 6.3 (6.3-8.2) g/dL Albumin 4.0 (3.5-5.0) g/dL Calcium panel 03/26/20 Range/Units 04:57 Calcium 8.9 (8.4-10.2) mg/dL Albumin 4.0 (3.5-5.0) g/dL Pituitary panel 03/26/20 Range/Units 04:57 Sodium 136 L (137-145) mmol/L Potassium 4.0 (3.5-5.1) mmol/L Chloride 94 L (98-107) mmol/L Carbon Dioxide 39 H (22-30) mmol/L BUN 12 (7-17) mg/dL Creatinine 0.48 L (0.52-1.04) mg/dL Glucose 123 H (74-99) mg/dL Calcium 8.9 (8.4-10.2) mg/dL Adrenal panel 03/26/20 Range/Units 04:57 Sodium 136 L (137-145) mmol/L Potassium 4.0 (3.5-5.1) mmol/L Chloride 94 L (98-107) mmol/L Carbon Dioxide 39 H (22-30) mmol/L BUN 12 (7-17) mg/dL Creatinine 0.48 L (0.52-1.04) mg/dL Glucose 123 H (74-99) mg/dL Calcium 8.9 (8.4-10.2) mg/dL Total Bilirubin 0.5 (0.2-1.3) mg/dL AST 24 (14-36) U/L ALT 22 (4-34) U/L Alkaline Phosphatase 119 (38-126) U/L Total Protein 6.3 (6.3-8.2) g/dL Albumin 4.0 (3.5-5.0) g/dL Assessment and Plan Assessment: 1. Left-sided temporal headache 2. Multiple sclerosis 3. Asthma 4. COPD 5. Fibromyalgia 6. History of optic neuritis 7. Chronic occipital neuralgia 8. Chronic tobacco abuse Plan: Continue with current medical management. Continue Solu-Medrol. Repeat labs in the morning including sed rate and C-reactive protein. Await further recommendations from neurology. Further recommendations to follow. Thank you for this consultation allowing us take part in the plan of care of your patient during her hospital stay. The above dictated assessment and findings were discussed with Dr. Kwan. The impression and plan of care have been directed as dictated.
[2020-03-26] MEDS: IPRATROPIUM-ALBUTEROL 3 ML NEB INHALATION PRN ×3 (12:12→22:02)
[2020-03-26] MEDS: SYMBICORT 160-4.5 MCG INHALER INHALATION SCH ×2 (12:12→22:02)
[2020-03-26] MEDS: diphenhydrAMINE 50 MG/ML 1 ML VIAL IVP PRN ×2 (12:29→20:26)
--- NOTE | 2020-03-26 13:44 | P.CNNES ---
History of Present Illness Consult date: 03/26/20 Requesting physician: Grabiel Garrido Reason for Consult: multiple sclerosis History of Present Illness: This is a 54-year-old female with medical history of relapsing remitting multiple sclerosis, peripheral neuropathy, hypertension, fibromyalgia, uterine cancer, osteoperosis, tobacco abuse that presented to the emergency department on 03/26/2020 for left-sided headache and left retro-orbital pain. According th e patient the headache started on Thursday (03/23/20) in afternoon and his started in the left retro-orbital eye pain and she felt was throbbing pain. As well as that she felt a "kinking" pain over the left eye. She could not tell me on the scalp once to how bad as it but she was totally was moderate in severity. For the most part was there and that there is no radiation to the pain. The pain wa s constant she did have photophobia, phonophobia. She didn't have any nausea or vomiting that day at. The next she was about to get her hair done and her friend who does her hair she was a trying to pick off danger of and dried the skin tissue and and she felt excruciating pain over the left side as a result and she felt like her left hemisphere she described it as the was on fire, was high at and the she stated that was sizzling in her own words. She said that was tender to touch throughout. She continued to have photophobia, phonophobia. And the pain was more than a 10. She didn't have any nausea or vomiting. Then yesterday she felt the headache was very excruciating and that she was having nausea but no vomiting she only had a headache over the left hemisphere and she felt like she was having intermittent numbness over the left hand up to the elbow. She denies of any focal weakness at. She noticed that she is having the blurry vision over the left eye for at least 1-2 days that. Denied again any focal weakness. Currently after getting pain medication she fell her heada johanna was a 10 and was more controlled compared to previously. She said that she does have migraine but the this time headache is different than her usual migraine headache. She also said that she has left neck pain and she gets injections by her neurologist last injection was and the summer. She got the 3 prior injections in total. She also complained of ringing in the ears bilaterally as well as hearing loss. She denies any trauma to the head recently. She denies any recent falls. She said that she is on verapamil 120 mg daily for her headache and she is on it for years prescribed by her neurologist. She also stated that the she is on Fioricet and she takes Fioricet 1 tablet 3 times a day and she's been on it for years. Workup in the hospital consisted of: Initial vitals: Blood pressure 138/91, heart rate of 98, respiratory of 18, temperature of 97.9 Fahrenheit oral and pulse ox of 95% nasal cannula on [address] of the head was reported as no acute intracranial pathology. Ventricle system as age appropriate. If there is concern for etiology such as early acute lacunar infarct, MRI of the brain with diffusion weighted sequence should be performed for follow-up. EKG is reported as normal sinus rhythm. Ventricular rate of 88. Prolonged QT. Abnormal EKG. Initial white blood cell is 12.0 and slightly neutrophilic 8.4. CRP is 27.4. As a result the patient was given Solu-Medrol 250 mg once in the ED. started on the Fioricet by the primary team 50/320 5/40 every 8 hours. Also was started on Dilaudid 1 mg every 4 hours. Patient was given Toradol 50 mg once in the ED. Patient was started on verapamil 120 mg daily. Also is on Tegretol 200 mg 1 tablet twice a day at. She was given Benadryl 50 mg once in the ED. Then the Benadryl 25 mg every 6 hours. Primary team consulted the Dr. Kwan for temporal artery biopsy. Patient follows up with Dr. Ramirez as an outpatient regarding management for her multiple sclerosis. Patient was seen in the past regarding generalized weakness, the exacerbation of multiple sclerosis and was felt was due to the activity acquired pneumonia versus viral pneumonia on 08/09/2019. I Saw the patient on 01/30/2020 and last seen by me was on 02/03/2020 for generalized weakness and the whole body jerks and the I felt that she had pseudo- exacerbation which she had a fever was felt viral possibly. Her jerks resolved. She had MRI the brain with and without on 01/31/20 which was reported as white matter lesion in the chioma and that the centrum; valve bilaterally around the lateral ventricle. White matter disease and it appears improved compared to the previous exam on 11/29/2018 with decreased intensity of pontine signal and decreased in size and number of periventricular white matter lesion. The contrast images shows no pathological enhancement of the brain. MRI of the cervical spine with and without on 01/31/20 was reported as posterior mild disc herniation at the C4-C5. Small posterior disc bulge at the C6-C7. No spinal stenosis at. No evidence of demyelinating disease of the cervical spine cord. Since there is no new lesion or new enhancement and this was felt as a pseudo- exacerbation likely from viral no steroids was given (she was givben Solumedrol 500mg once in ED). I notified the patient regarding her peripheral neuropathy that her gabapentin 1200 mg 3 times a day is a large dose and I felt they should be modified by her neurologist, Dr. Ramirez as an outpatient. Patient is on Namenda 10 mg twice a day started by her neurologist for her memory issues and she's been on it for short-term memory loss according to her for the last couple years.. She is also on Robaxin 750 mg 1 tablet 3 times a day. Review of Systems Review of system: The 12 point system was reviewed and apparent positive and negative per HPI. Past Medical History Past Medical History: Asthma, Cancer, COPD, Eye Disorder, Fibromyalgia, GERD/Reflux, Hearing Disorder / Deafness, Hypertension, Memory Impairment, Neurologic Disorder, Osteoarthritis (OA), Pneumonia, Syncope Additional Past Medical History / Comment(s): MS relapsing/remitting type, chronic bilateral eye pain/optic neuritis/ poor vision, cataracts bilaterally, chronic occipital neuralgia, osteoporosis, RLS, chronic hypoxic respiratory failure with home oxygen 2L/NC prn, chronic bronchitis, immunocompromised, elevated blood sugar with steroid use, uterine cancer with hysterectomy/radiation, heart murmur, mild cognitive impairment, chronic vertigo, falls, rheumatic fever as child, tinnitis bilaterally, allergic rhinitis. History of Any Multi-Drug Resistant Organisms: None Reported Past Surgical History: Bladder Surgery, Heart Catheterization, Hysterectomy Additional Past Surgical History / Comment(s): Nerve blocks, bladder suspension. Past Anesthesia/Blood Transfusion Reactions: No Reported Reaction Additional Past Anesthesia/Blood Transfusion Reaction / Comment(s): mild clausterphobia Past Psychological History: Anxiety, Depression Additional Psychological History / Comment(s): Pt resides alone. She uses a cane or walker or wheelchair. She has a private hire nurse aide who organizers her meds in a account planner but pt takes her own meds, aide assists her with her ADLs. This aide also prepares meals/shopping and cleaning. Pt does not drive, she has her friends take her to appts or sometimes her aide drives her. Smoking Status: Current every day smoker Past Alcohol Use History: Rare Additional Past Alcohol Use History / Comment(s): Patient started smoking at age 18 and has smoked on and off since then. She is currently smoking 1 pack per day. Past Drug Use History: None Reported - Past Family History Mother Family Medical History: CVA/TIA, Myocardial Infarction (ME) Additional Family Medical History / Comment(s): Mother is alive at age 75 with history of brain aneurysm, 3 strokes and 2 myocardial infarctions. Brain aneurysms run on mother's side of family Father Additional Family Medical History / Comment(s): Father at age 72 from a cardiac arrest thought to be due to a myocardial infarction. Sister(s) Additional Family Medical History / Comment(s): Patient has 2 sisters with no major medical problems. Patient does not have any brothers. Patient has 2 adult children with no major medical problems. Patient is only family member with MS. Medications and Allergies Home Medications Medication Instructions Recorded Confirmed Type Aspirin 81 mg PO DAILY 02/20/14 03/26/20 History LORazepam [Ativan] 1 mg PO Q8H 02/20/14 03/26/20 History Verapamil HCl [Calan] 120 mg PO DAILY 02/20/14 03/26/20 History Gabapentin [Neurontin] 1,200 mg PO TID 08/19/16 03/26/20 History Butalb/APAP/Caff 50-325-40Mg 1 tab PO Q8H 03/25/17 03/26/20 History [Fioricet 50-325-40] oxyCODONE-APAP 10-325MG [Percocet 1 tab PO TID 01/28/18 03/26/20 History 10-325 mg] rOPINIRole HCL [Requip] 0.25 mg PO TID #90 tab 01/31/18 03/26/20 Rx Budesonide/Formoterol Fumarate 2 puff INHALATION RT-BID 05/06/18 03/26/20 History [Symbicort 160-4.5 Mcg Inhaler] Cholecalciferol [Vitamin D3 (25 2,000 unit PO DAILY 05/07/18 03/26/20 History Mcg = 1000 Iu)] Multivitamins, Thera [Multivitamin 1 tab PO DAILY 05/07/18 03/26/20 History (formulary)] PARoxetine [Paxil] 40 mg PO DAILY tab 05/09/18 03/26/20 Rx Pantoprazole Sodium [Protonix] 40 mg PO BID 10/31/18 03/26/20 History Ipratropium-Albuterol Nebulize 3 ml INHALATION RT-QID PRN 11/22/18 03/26/20 History [Duoneb 0.5 mg-3 mg/3 ml Soln] Memantine [Namenda] 10 mg PO BID 11/22/18 03/26/20 History Montelukast [Singulair] 10 mg PO DAILY 11/22/18 03/26/20 History hydroCHLOROthiazide [Hydrodiuril] 25 mg PO DAILY tab 11/26/18 03/26/20 Rx Fluticasone Nasal [place] [Flonase 2 spray EA NOSTRIL DAILY PRN 04/28/19 03/26/20 History Nasal [place]] Methocarbamol [Robaxin-750] 750 mg PO TID 04/28/19 03/26/20 History Folic Acid 1 mg PO DAILY #30 tab 05/02/19 03/26/20 Rx busPIRone HCl [Buspar] 10 mg PO TID #90 tab 05/02/19 03/26/20 Rx Albuterol Sulfate [Ventolin HFA] 1 - 2 puff INHALATION RT-Q6H PRN 08/09/19 03/26/20 History Nystatin 100,000 Unit/ml Susp 500,000 unit PO QID PRN 09/04/19 03/26/20 History [Mycostatin Oral Susp] Ascorbic Acid [Vitamin C] 1,000 mg PO DAILY 01/30/20 03/26/20 History Docusate [Colace] 100 mg PO DAILY PRN 01/30/20 03/26/20 History Zinc Gluconate [Zinc] 25 mg PO DAILY 01/30/20 03/26/20 History Ear Drops (Unknown) 1 dose LEFT EAR ONCE 03/26/20 03/26/20 History Furosemide [Lasix] 20 mg PO DAILY PRN 03/26/20 03/26/20 History Pain Cream (Unknown) 1 applic TOPICAL BID 03/26/20 03/26/20 History Potassium Chloride ER [K-Dur 20] 20 meq PO DAILY PRN 03/26/20 03/26/20 History Allergies Allergy/AdvReac Type Severity Reaction Status Date / Time baclofen AdvReac URINARY Verified 03/26/20 06:40 ISSUES dexamethasone [From Decadron] AdvReac "THOMPSON Verified 03/26/20 06:40 SKIN"/DEHYDRATION Physical Examination - Vital Signs Vital Signs: Vital Signs Temp Pulse Pulse Resp BP BP Pulse Ox 03/26/20 09:08 98.0 F 93 18 120/70 97 03/26/20 06:36 78 18 130/70 97 03/26/20 04:26 97.9 F 98 18 138/91 95 Intake and Output 03/25/20 03/26/20 03/26/20 22:59 06:59 14:59 Other: Weight 105.233 kg 105.233 kg GENERAL: The patient is lying in bed and is mild to moderate acute distress. HENT: Normocephalic. Tender to touch throughout entire left side and even left neck region. CHEST: The heart rate is regular rate rhythm. No murmurs to auscultation. No carotid bruit bilaterally. LUNG: Clear to auscultation bilaterally no wheezing noted throughout. Not labored breathing. ABDOMEN/GI: Bowel sounds present in all 4 quadrants. No tenderness to palpation throughout. NEUROLOGICAL: Higher mental function: The patient is awake, alert, oriented to self, place and time. Patient is following commands. No aphasia and no neglect. Cranial nerves: The pupils are round, equal, 3-4mm and reactive to light and accommodation. Visual schwarz are full to confrontation throughout. Extraocular movement is intact no nystagmus is noted. Facial sensation is normal to touch throughout. The facial strength is normal throughout. Hearing is normal bilaterally to hand rub. Tongue is midline and moved [id number] without any difficulty. No dysarthria is noted. Shoulder shrug is normal bilaterally. Motor: The strength is 5/5 throughout except proximal upper extremities because of her pain. Normal tone and bulk. Cerebellum: Normal finger to nose bilaterally. Sensation: Sensation is normal to touch throughout. Reflexes (right/left): 2+ throughout Plantars are downgoing bilaterally. Results Conduction study: PT of 9.5, INR 0.9, PTT of 23.7. AST of 20 for an ALT of 22. - Laboratory Findings CBC and BMP: 03/26/20 04:57 03/26/20 04:57 Abnormal Lab Findings: Abnormal Labs 03/26/20 03/26/20 04:57 04:57 WBC 12.0 H Hct 48.4 H Neutrophils # 8.4 H Sodium 136 L Chloride 94 L Carbon Dioxide 39 H Creatinine 0.48 L Glucose 123 H C-Reactive Protein 27.4 H Assessment and Plan Assessment: This is a 54-year-old woman with history of fall relapsing remitting multiple sclerosis, peripheral neuropathy that presented emergency department on 03/26/2020 for headache. She has history of migraine but she said that this feels different than usual headache. Cephalgia: Unsure exactly type of headache. Rule out pseudotumor cerebri especially with her body habitus also rule out any underlying inflammatory cause. This is not Trigeminal Neuralgia. Elevated CRP History of Migraine History of for relapsing remitting multiple sclerosis---no new relapse History of peripheral neuropathy History of fibromyalgia Polypharmacy History of hypertension Morbid obesity History of COPD History of osteoporosis History of uterine cancer status post surgery Plan: I'll get a CTA of the head and neck to rule out any vascular abnormalities. We'll hold off on ordering an MRI of the brain at this time until we get the CTA first. Also consulted the anesthesiology for lumbar puncture, to get an opening pressure and the rule out pseudotumor cerebri. If the opening pressure is more than 21 then I recommend a closing pressure to be between 18-20cm water. Also lumbar puncture will help us to see if there is any inflammatory markers in the CSF. Ordered CSF protein, glucose, cell count, oligoclonal band, ANABEL. I'll ordered an CASEY, cANCA and anti-jo1 abs. I recommend an ENT consult regarding her ringing in the ear and hearing loss that's is a chronic issue according to the patient. Primary team started the patient on the Tegretol 20 mg 1 tablet twice a day for trigeminal neuralgia which from the patient's history and physical examination I highly doubt and I recommend to be discontinued. Primary team consulted the Dr. Kwan for temporal artery biopsy especially because of the headache and the elevated CRP. I doubt the patient has temporal artery biopsy. I believe the patient is on polypharmacy and she is being overmedicated by her neurologist. Fioricets, NSAIDs and opioids on a chronic basis can cause medication over use headache. Again I believe that her gabapentin 1200 mg 3 times a day is a high dose and she should be tapered down slightly. Thank you for the consult. Jayden Javier M.D. Neuro-hospitalist Time with Patient: Greater than 30
--- NOTE | 2020-03-26 18:51 | CT ---
EXAMINATION TYPE: CT angio head neck DATE OF EXAM: 03/26/2020 COMPARISON: None HISTORY: Right sided headache and left leg shakiness. CT DLP: 514.9 mGycm Automated exposure control for dose reduction was used. CONTRAST: Performed with IV Contrast, patient injected with 65ml mL of Isovue 300. Images were obtained from the aortic arch to the vertex of the brain with IV contrast and 3-D post pr ocessed images. There is normal branching pattern of the great vessels on the aortic arch. There is arterial flow in both subclavian arteries. There is arterial flow in the common internal and external carotid arteries bilaterally. Carotid artery bifurcations are widely patent. There is normal opacification of the jug ular veins. There is arterial flow in both vertebral arteries which are fairly symmetric. There is ar terial flow in the vertebrobasilar artery system. There is arterial flow in the anterior middle and posterior cerebral arteries bilaterally. There is n o mass effect. There is no evidence of intracranial aneurysm or neovascularity. There is normal contr ast opacification of the venous sinuses. I see no evidence of intracranial arterial stenosis. IMPRESSION: Negative CT angiogram of the neck. Negative CT angiogram of the brain.
[2020-03-26] MEDS: HEPARIN SODIUM,PORCINE 5,000 UNIT/ML 1 ML VIAL SQ SCH (20:27)
[2020-03-26] MEDS: NICOTINE 21MG/24HR PATCH TRANSDERM SCH (22:50)
[2020-03-27] MEDS: SODIUM CHLORIDE 0.9% 1,000 ML IV SCH ×3 (02:24→21:31)
[2020-03-27] MEDS: diphenhydrAMINE 50 MG/ML 1 ML VIAL IVP PRN ×4 (04:16→21:37)
[2020-03-27] MEDS: HYDROmorphone 1 MG/ML 1 ML SYRINGE IVP PRN ×5 (04:21→21:37)
[2020-03-27] MEDS: MONTELUKAST 10 MG TAB PO SCH (08:04)
[2020-03-27] MEDS: LORazepam 1 MG TAB PO SCH ×3 (08:04→21:23)
[2020-03-27] MEDS: PARoxetine 20 MG TAB PO SCH (08:04)
[2020-03-27] MEDS: NICOTINE 21MG/24HR PATCH TRANSDERM SCH (08:04)
[2020-03-27] MEDS: VERAPAMIL SR 120 MG TABLET.ER PO SCH (08:05)
[2020-03-27] MEDS: oxyCODONE-APAP 10-325MG 1 EACH TAB PO SCH ×3 (08:05→21:23)
[2020-03-27] MEDS: HEPARIN SODIUM,PORCINE 5,000 UNIT/ML 1 ML VIAL SQ SCH ×2 (08:06→21:24)
[2020-03-27] MEDS: PANTOPRAZOLE 40 MG TABLET PO SCH ×2 (08:06→21:23)
[2020-03-27] MEDS: carBAMazepine 200 MG TAB PO SCH ×2 (08:06→21:52)
[2020-03-27] MEDS: BUTALB/APAP/CAFF 50-325-40MG TAB PO SCH ×3 (08:06→21:24)
[2020-03-27] MEDS: MULTIVITAMINS, THERA 1 EACH TAB PO SCH (08:07)
[2020-03-27] MEDS: GABAPENTIN 400 MG CAP PO SCH ×3 (08:07→21:24)
[2020-03-27] MEDS: ASPIRIN 81 MG PO SCH ×2 (08:07→08:10)
[2020-03-27] MEDS: hydroCHLOROthiazide 25 MG TAB PO SCH (08:07)
[2020-03-27] MEDS: methocarbamoL 750 MG TAB PO SCH ×3 (08:07→21:52)
[2020-03-27] MEDS: busPIRone HCl 10 MG TAB PO SCH ×3 (08:08→21:52)
[2020-03-27] MEDS: FOLIC ACID 1 MG TAB PO SCH (08:08)
[2020-03-27] MEDS: MEMANTINE 10 MG TAB PO SCH ×2 (08:08→21:52)
--- NOTE | 2020-03-27 08:52 | P.PN ---
Subjective Progress Note Date: 03/27/20 Principal diagnosis: Left sided headache and eye pain She was seen and examined sitting up at the bedside. She is complaining of burning sensation along her left temporal region of her scalp to the back of her head. She states she has pain behind the left eye. She states the pain is constant with little relief from IV pain medications. She denies any focal deficits. Labs are currently pending from this morning. Patient is scheduled for a spinal tap with fluid collection today. She remains afebrile. Objective - Vital Signs Vital signs: Vital Signs Temp 97.9 F 03/27/20 05:57 Pulse 82 03/27/20 05:57 Resp 16 03/27/20 05:57 BP 123/79 03/27/20 05:57 Pulse Ox 97 03/27/20 05:57 Intake & Output 03/26/20 03/27/20 03/27/20 18:59 06:59 18:59 Intake Total 240 1600 Balance 240 1600 Weight 105.233 kg Intake: Intake, IV Titration 1600 Amount Sodium Chloride 0.9% 1, 1600 000 ml @ 100 mls/hr IV . Q10H [facility] Rx#:[id number] Oral 240 Other: Voiding Method Toilet # Voids 1 2 - Exam General appearance: The patient is alert, oriented, in no acute distress. HET: Head is normocephalic and atraumatic. Pupils are equal and reactive. Left eye sclera injected, eyelid with mild inflammation. Neck: Supple without lymphadenopathy. Trachea midline. Heart: S1 S2. Regular rate and rhythm. Lungs: No crackles or wheezes are heard. Abdomen: Soft, nontender, nondistended Extremities: Normal skin color and turgor. No cyanosis, rash, ulceration, clubbing, or edema. Radial pulse 2/4 bilaterally. Neurological: No focal deficits. Strength and sensation are grossly intact. - Labs CBC & Chem 7: 03/26/20 04:57 03/26/20 04:57 Labs: Microbiology - Last 24 Hours (Table) 03/26/20 04:57 Blood Culture - Preliminary Blood No Growth after 24 hours Assessment and Plan Assessment: 1. Left-sided temporal headache 2. Multiple sclerosis 3. Asthma 4. COPD 5. Fibromyalgia 6. History of optic neuritis 7. Chronic occipital neuralgia 8. Chronic tobacco abuse Plan: There are no indications for any vascular surgical intervention at this time. Neurology has seen patient and believes is related to her multiple sclerosis and overmedication by her neurologist. They agree and do not believe that this is a trigeminal neuralgia and no need for temporal artery biopsy. Patient is scheduled this afternoon for a spinal tap with fluid studies. Thank you for this consultation. We will sign off at this time, if there is further need for any vascular surgical services please do not hesitate to contact us. The impression and plan of care has been dictated as directed. Dr. Cardoza I performed a history and examination of this patient, discussed the same with the dictator. I agree with the dictator's note ,documented as a scribe. Any additional findings or plans will be noted.
[2020-03-27] MEDS ORDERED: NICOTINE 21MG/24HR PATCH TRANSDERM SCH (09:00)
[2020-03-27] MEDS: IPRATROPIUM-ALBUTEROL 3 ML NEB INHALATION PRN ×4 (09:39→21:48)
[2020-03-27] MEDS: SYMBICORT 160-4.5 MCG INHALER INHALATION SCH ×2 (09:40→21:48)
[2020-03-27] MEDS: NON FORMULARY DRUG (Zinc Gluconate 50 MG Tab) PO SCH (10:11)
[2020-03-27] MEDS ORDERED: IV FLUID CONTINUATION 1,000 ML IV ONE (14:08)
[2020-03-27] MEDS ORDERED: MIDAZOLAM 2 MG/2 ML VIAL ONE (14:26)
[2020-03-27] MEDS ORDERED: fentaNYL (PF) 50 MCG/ML 2 ML AMP ONE (14:26)
--- NOTE | 2020-03-27 14:28 | P.PN ---
Subjective Progress Note Date: 03/27/20 HISTORY OF PRESENT ILLNESS This is a 54 year old female patient of Dr. Tabares and Dr. Ramirez with a past medical history of relapsing remitting multiple sclerosis, hypertension and hy pertensive cardiovascular disease with left ventricular hypertrophy, history of GERD, multiple sclerosis, COPD, asthma, history of osteoporosis, uterine cancer status post surgery, chronic hypoxic respiratory failure on home O2 at 2 L nasal cannula, tobacco use. She has had multiple admissions for acute exacerbation of her multiple sclerosis. Patient complains of headache that felt like her head was on fire that started on Thursday. It was in the left episcopal area. Worsen over the weekend and on Thursday was involving whole left side of her head area she has generalized tenderness to entire scalp area. She also states that she has been placing eardrops in her left ear and occasionally to her right. She denies having any fever or chills. She presented to [facility] emergency center afebrile, heart rate 98, blood pressure 138/91, pulse ox 95%. WBC 12.0, hemoglobin 15.4. CO2 39, creatinine 0.48. Blood sugar 123. Liver function tests normal. C-reactive protein 27.4, sed rate normal. Lactic acid 1.2. EKG is a sinus rhythm with no acute ST changes. CAT scan of the brain did not show any acute intracranial pathology. Patient was started on Solu-Medrol 250 mg every 6 hours and [facility] Subsequently, Solu- Medrol has been discontinued and patient started on Tegretol for trigeminal neuralgia. Consult with neurology in place and vascular surgeon for possible temporal arteritis. Sed rate is noted to be normal. 03/27: Patient was evaluated by neurology, Dr. Javier, and unsure of type of headache. Plan to rule out pseudotumor cerebri. He has recommended a lumbar puncture with opening pressure and at the time of this evaluation, patient is refusing but later changed her mind. CT angiogram of the neck and brain were negative. He has also recommended ENT consult which we will plan to do as an outpatient. There is no new relapse of MS. Vascular surgery does not plan for biopsy as temporal arteritis ruled out. Dr. Javier has also ruled out trigeminal neuralgia. Patient continues to have headache and significant tenderness to p alpation. When patient evaluated by anesthesia for LP, we will also has an evaluation for occipital neuralgia. Patient states that she would like an antibiotic as she thinks this would help her headache. At this time, antibiotics are denied. Patient does not show signs of sinusitis. Patient has been afebrile, heart rate 94, blood pressure 140/81, pulse ox 93% on 2 L nasal cannula. Repeat sed rate was 4 and C-reactive protein 2. Blood cultures no growth after 24 hours. REVIEW OF SYSTEMS Constitutional: No fever, no chills, no night sweats. No weight change. Denies weakness, fatigue or lethargy. No daytime sleepiness. EENT: Reports headache. No blurred vision or double vision, no loss of vision. Reports ear discomfort, no dizziness. No nasal drainage or congestion. No epistaxis. No sore throat. Lungs: No shortness of breath, cough, no sputum production. No wheezing. Cardiovascular: No chest pain, no lower extremity edema. No palpitations. No paroxysmal nocturnal dyspnea. No orthopnea. No lightheadedness or dizziness. No syncopal episodes. Abdominal: No abdominal pain. No nausea, vomiting. No diarrhea. No constipation. No bloody or tarry stools.. No loss of appetite. Genitourinary: No dysuria, increased frequency, urgency. No urinary retention. Musculoskeletal: No myalgias. Reports muscle weakness, no gait dysfunction, no frequent falls. No back pain. No neck pain. Integumentary: No wounds, no lesions. No rash or pruritus. No unusual bruising. No change in hair or nails. Neurologic: No aphasia. No facial droop. No change in mentation. No head injury. No headache. No paralysis. No paresthesia. Psychiatric: No depression. No anxiety. No mood swings. Endocrine: No abnormal blood sugars. No weight change. No excessive sweating or thirst. No cold intolerance. PHYSICAL EXAMINATION Gen: This is a morbidly obese 54-year-old -[place] female. She is resting in bed, patient able to speak in full sentences. HEENT: Head is atraumatic, normocephalic. Pupils equal, round. Sclerae is anicteric. Patient has tenderness in the entire left side of her scalp. No significant tenderness over the temporal artery area. NECK: Supple. No JVD. No lymphadenopathy. No thyromegaly. LUNGS: Clear to auscultation. No wheezes or rhonchi. No intercostal retractions. HEART: Regular rate and rhythm. No murmur. ABDOMEN: Soft. Bowel sounds are present. No masses. Mild left-sided tenderness. EXTREMITIES: No pedal edema. No calf tenderness. DP palpable. NEUROLOGICAL: Patient is awake, alert and oriented x3. Cranial nerves 2 through 12 are grossly intact. Hand specialty finishing utility person equal and strong bilaterally, foot push pull strong bilaterally. ASSESSMENT AND PLAN 1. Headache possibly related to trigeminal neuralgia, ruled out temporal arteritis. Consult with neurology and vascular surgery. Patient started on Tegretol 200 mg twice daily. Consult with anesthesia for LP. 2. No MS exacerbation seems unlikely. Solu-Medrol will be discontinued for now, neurology consult. 3. History of relapsing remitting multiple sclerosis. 4. Chronic pain and occipital neuralgia under the care of Dr. Ramirez. Continue gabapentin 1200mg 3 times daily, Percocet one 3 times daily as needed, Fioricet as needed. 5. Hypertension and hypertensive cardiovascular disease. Hydrochlorothiazide 25 mg daily, verapamil 120 mg orally once every day. 6. Obesity with possible obstructive sleep apnea and obesity hypoventilation syndrome. 7. Mild intermittent asthma and COPD. Continue albuterol inhaler every 6 hours as needed, Symbicort twice daily, Singulair 10 mg daily, Flonase as needed. 8. Fibromyalgia. Continue gabapentin 1200 mg orally 3 times every day. 8. Generalized anxiety disorder. Continue Ativan 1 mg every 8 hours as needed. 9. Recurrent depression. Continue Paxil 40 mg daily. 10. Chronic tobacco use and dependence. Smoking cessation and counseling an increased risk of CAD, CVA, and malignancy. 11. Mild cognitive impairment. Continue patient on Namenda 10 mg orally twice every day. 13. Restless leg syndrome. Continue Requip 0.25 mg 2 times daily 14. DVT prophylaxis. Heparin subcu. 15. GERD and GI prophylaxis. Continue with Protonix 40 mg orally twice every day. CODE STATUS: Full code DISCHARGE PLAN Home with [facility]. Impression and plan of care have been directed as dictated by the signing physician. Elaine Nguyen nurse practitioner acting as scribe for signing physician. Objective - Vital Signs Vital signs: Vital Signs Temp 97.9 F 03/27/20 05:57 Pulse 82 03/27/20 05:57 Resp 16 03/27/20 05:57 BP 123/79 03/27/20 05:57 Pulse Ox 97 03/27/20 05:57 Intake & Output 03/26/20 03/27/20 03/27/20 18:59 06:59 18:59 Intake Total 240 1600 Balance 240 1600 Weight 105.233 kg Intake: Intake, IV Titration 1600 Amount Sodium Chloride 0.9% 1, 1600 000 ml @ 100 mls/hr IV . Q10H [facility] Rx#:[id number] Oral 240 Other: Voiding Method Toilet # Voids 1 2 - Labs CBC & Chem 7: 03/26/20 04:57 03/26/20 04:57 Labs: Microbiology - Last 24 Hours (Table) 03/26/20 04:57 Blood Culture - Preliminary Blood No Growth after 24 hours
--- NOTE | 2020-03-27 15:13 | P.PCN ---
Date of Procedure: 03/27/20 Procedure(s) Performed: Preoperative diagnosis: Pseudotumor cerebri Post operative diagnoses: Pseudotumor cerebra a Procedure= lumbar puncture Anesthesia = moderate sedation with Versed 4 mg and fentanyl 100 g, and local infiltration with lidocaine 1% 4 mL. Condition: stable Complication: none. Description of the procedure procedure risk and benefits discussed with the patient , consent signed. Moderate sedation was given to the patient anxiety, monitors applied and vital signs was monitored the whole time during the procedure Patient placed in lateral position ( Left side down ), back prepped with chlorhexidine 3 times been local infiltration of the skin and subcutaneous tissue with lidocaine 1% 4 mL for skin and subcu interstitial frustrations at L4 -5 levels then 22-gauge 5 inches Quincke-type needle advanced slowly at L4- 5 interlaminar space there was positive cerebrospinal fluid which was clear, no heme, no paresthesia ,total of 14 ML of clear cerebrospinal fluid collected in 4 different tubes , then the needle removed and a Band-Aid applied and patient tolerated the procedure well without any complications. Opening pressure= 37 CM of water. Closing pressure= 31 CM of water
[2020-03-27 15:22] LABS: JO-1 IgG Antibody <0.2 AI
[2020-03-27 16:23] LABS: Glucose,CSF 70 mg/dL (40-70); Total Protein,CSF 44 mg/dL (12-60)
[2020-03-27 17:32] LABS: Appearance,CSF Clear; CSF Tube Number 4; CSF Tube Volume 5; Nucleated Cells, CSF 0 u/L (0-5); Red Blood Cell,CSF 195 u/L (0-10)
[2020-03-27 17:34] LABS: Red Blood Cell, CSF Crenated 0 %; Red Blood Cell, CSF Fresh 100 %
[2020-03-27] MEDS ORDERED: acetaZOLAMIDE 250 MG TAB PO STA (17:47)
--- NOTE | 2020-03-27 17:47 | P.PN ---
Subjective Progress Note Date: 03/27/20 Patient was seen at bedside and she said that she continues to have the headache over the left hemisphere is tender to touch. In the morning upon scenery she was adamant that her headache was due to sinus itis and she wanted to be on antibiotic. She was reluctant on getting lumbar puncture but I had to persuade her. I spoke with a vascular nurse practitioner and the she stated that she was in agreement that this was unlikely temporal arteritis and vaginal feel that the biopsies needed. Later the patient had the lumbar puncture which was done at 1507 and it was reported the opening pressure was 37 cm of water and the closing pressure was 31 cm of water. In my consultation note and also [place] and order stating and opening pressure is more than 21 that I recommend the closing pressure to be between 18 and 20 cm of water. Objective - Vital Signs Vital signs: Vital Signs Temp 98.0 F 03/27/20 15:25 Pulse 86 03/27/20 16:32 Resp 16 03/27/20 15:25 BP 118/79 03/27/20 16:10 Pulse Ox 93 L 03/27/20 16:10 Intake & Output 03/26/20 03/27/20 03/27/20 18:59 06:59 18:59 Intake Total 240 1600 Balance 240 1600 Weight 105.233 kg Intake: Intake, IV Titration 1600 Amount Sodium Chloride 0.9% 1, 1600 000 ml @ 100 mls/hr IV . Q10H [facility] Rx#:[id number] Oral 240 Other: Voiding Method Toilet # Voids 1 2 - Exam GENERAL: The patient is lying in bed and is mild to moderate acute distress. HENT: Normocephalic. Tender to touch throughout entire left side and even left neck region. CHEST: The heart rate is regular rate rhythm. No murmurs to auscultation. No carotid bruit bilaterally. LUNG: Clear to auscultation bilaterally no wheezing noted throughout. Not labored breathing. ABDOMEN/GI: Bowel sounds present in all 4 quadrants. No tenderness to palpation throughout. NEUROLOGICAL: Higher mental function: The patient is awake, alert, oriented to self, place and time. Patient is following commands. No aphasia and no neglect. Cranial nerves: The pupils are round, equal, 3-4mm and reactive to light and accommodation. Visual schwarz are full to confrontation throughout. Extraocular movement is intact no nystagmus is noted. Facial sensation is normal to touch throughout. The facial strength is normal throughout. Hearing is normal bilaterally to hand rub. Tongue is midline and moved [id number] without any difficulty. No dysarthria is noted. Shoulder shrug is normal bilaterally. Motor: The strength is 5/5 throughout except proximal upper extremities because of her pain. Normal tone and bulk. Cerebellum: Normal finger to nose bilaterally. Sensation: Sensation is normal to touch throughout. Reflexes (right/left): 2+ throughout Plantars are downgoing bilaterally. - Labs CBC & Chem 7: 03/26/20 04:57 03/26/20 04:57 Labs: Abnormal Lab Results - Last 24 Hours (Table) 03/27/20 03/27/20 Range/Units 05:09 14:45 C-Reactive Protein 2.0 H (0.0-0.8) mg/dL CSF RBC 195 H (0-10) u/L Microbiology - Last 24 Hours (Table) 03/26/20 04:57 Blood Culture - Preliminary Blood No Growth after 24 hours Assessment and Plan Assessment: This is a 54-year-old woman with history of fall relapsing remitting multiple sclerosis, peripheral neuropathy that presented emergency department on 03/26/2020 for headache. She has history of migraine but she said that this feels different than usual headache. Cephalgia due to Idiopathic intracranial hypertension (Pseudotumor cerebri) History of Migraine History of for relapsing remitting multiple sclerosis---no new relapse History of peripheral neuropathy History of fibromyalgia Polypharmacy History of hypertension Morbid obesity History of COPD History of osteoporosis History of uterine cancer status post surgery Plan: Today (03/27/20) in afternoon patient had lumbar puncture performed by anesthesiologist and it was reported the opening pressure was 37 cm of water and the closing pressure was 31 cm of water. In my consultation note and also order I stated if opening pressure is more than 21 that I recommend the closing pressure to be between 18 and 20 cm of water. CSF glucose of 70 which within normal limits, the protein is 44 inches also within normal limits. Pending the cell counts and oligoclonal band as well as Anant from CSF. CTA of the head and neck: Negative CT of the head and neck. I'll give the patient Acetazolamide once today 500 mg. I started the patient on Acetazolamide 250 mg 1 tablet twice a day. CASEY is negative. Patria 1 antibody is negative. ESR is 2 and a repeat ESR is 4. CRP is on initial presentation was 27.4 which I think was reactive and the repeated was 2.0 which was done on 03/27/2020. With the patient's clinical history as well as the lab of the ESR, I highly doubt the patient has the giant cell arteritis. Vascular surgeon was consulted and they're in agreement that the procedure was not necessary and therefore that was not done. Primary team started the patient on the Tegretol 20 mg 1 tablet twice a day for trigeminal neuralgia which from the patient's history and physical examination I highly doubt and I recommend to be discontinued. I recommend an ENT consult regarding her ringing in the ear and hearing loss that's is a chronic issue according to the patient. If cannot be done then recommend as an outpatient. I believe the patient is on polypharmacy and she is being overmedicated by her outpatient neurologist. Fioricets, NSAIDs and opioids on a chronic basis can cause medication over use headache. Again I believe that her gabapentin 1200 mg 3 times a day is a high dose and she should be tapered down slightly. Upon discharge the patient needs to follow-up with a neurologist and that as an outpatient. Will continue to follow. Jayden Javier M.D. Neuro-hospitalist Time with Patient: Greater than 30
[2020-03-27] MEDS ORDERED: acetaZOLAMIDE 250 MG TAB PO SCH (21:00)
[2020-03-28] MEDS: HYDROmorphone 1 MG/ML 1 ML SYRINGE IVP PRN ×2 (05:10→09:15)
[2020-03-28] MEDS: MONTELUKAST 10 MG TAB PO SCH (08:01)
[2020-03-28] MEDS: MULTIVITAMINS, THERA 1 EACH TAB PO SCH (08:01)
[2020-03-28] MEDS: HEPARIN SODIUM,PORCINE 5,000 UNIT/ML 1 ML VIAL SQ SCH ×2 (08:01→21:46)
[2020-03-28] MEDS: ASPIRIN 81 MG PO SCH (08:01)
[2020-03-28] MEDS: LORazepam 1 MG TAB PO SCH ×3 (08:01→23:15)
[2020-03-28] MEDS: GABAPENTIN 400 MG CAP PO SCH ×3 (08:01→21:46)
[2020-03-28] MEDS: PANTOPRAZOLE 40 MG TABLET PO SCH ×2 (08:01→21:46)
[2020-03-28] MEDS: NICOTINE 21MG/24HR PATCH TRANSDERM SCH (08:01)
[2020-03-28] MEDS: FOLIC ACID 1 MG TAB PO SCH (08:01)
[2020-03-28] MEDS: oxyCODONE-APAP 10-325MG 1 EACH TAB PO SCH ×3 (08:01→21:50)
[2020-03-28] MEDS: methocarbamoL 750 MG TAB PO SCH ×3 (08:02→23:14)
[2020-03-28] MEDS: VERAPAMIL SR 120 MG TABLET.ER PO SCH (08:02)
[2020-03-28] MEDS: BUTALB/APAP/CAFF 50-325-40MG TAB PO SCH ×3 (08:02→23:14)
[2020-03-28] MEDS: acetaZOLAMIDE 250 MG TAB PO SCH ×2 (08:02→23:14)
[2020-03-28] MEDS: PARoxetine 20 MG TAB PO SCH (08:03)
[2020-03-28] MEDS: carBAMazepine 200 MG TAB PO SCH (08:03)
[2020-03-28] MEDS: busPIRone HCl 10 MG TAB PO SCH ×3 (08:03→23:14)
[2020-03-28] MEDS: hydroCHLOROthiazide 25 MG TAB PO SCH (08:03)
[2020-03-28] MEDS: MEMANTINE 10 MG TAB PO SCH ×2 (08:03→23:14)
[2020-03-28] MEDS: NON FORMULARY DRUG (Zinc Gluconate 50 MG Tab) PO SCH (08:15)
[2020-03-28 08:58] LABS: HCT 43.1 % (34.0-46.0); HGB 13.6 gm/dL (11.4-16.0); Hypochromasia Slight; MCH 31.5 pg (25.0-35.0); MCHC 31.5 g/dL (31.0-37.0); MCV 99.9 fL (80.0-100.0); Mean Platelet Volume 7.7; Platelet Count 192 k/uL (150-450); RBC 4.32 m/uL (3.80-5.40); RDW 12.8 % (11.5-15.5); WBC 14.3 k/uL (3.8-10.6)
[2020-03-28] MEDS: diphenhydrAMINE 50 MG/ML 1 ML VIAL IVP PRN (09:15)
[2020-03-28 09:18] LABS: ALT 22 U/L (4-34); AST 28 U/L (14-36); African American GFR (CKD) >90 (>60 ml/min/1.73 sqM); Albumin 3.9 g/dL (3.5-5.0); Albumin/Globulin Ratio 1.8; Alkaline Phosphatase 92 U/L (38-126); Anion Gap 4 mmol/L; Blood Urea Nitrogen 13 mg/dL (7-17); Calcium 8.9 mg/dL (8.4-10.2); Carbon Dioxide 36 mmol/L (22-30); Chloride 94 mmol/L (98-107); Globulin 2.2 g/dL; Glucose 154 mg/dL (74-99); Non-African American GFR(CKD) >90 (>60 ml/min/1.73 sqM); Potassium 4.3 mmol/L (3.5-5.1); Sodium 134 mmol/L (137-145); Total Bilirubin 0.4 mg/dL (0.2-1.3); Total Protein 6.1 g/dL (6.3-8.2)
[2020-03-28] MEDS: IPRATROPIUM-ALBUTEROL 3 ML NEB INHALATION PRN ×3 (09:31→16:40)
[2020-03-28] MEDS: SYMBICORT 160-4.5 MCG INHALER INHALATION SCH ×2 (09:32→21:39)
[2020-03-28] MEDS: SODIUM CHLORIDE 0.9% 1,000 ML IV SCH ×2 (10:14→19:48)
[2020-03-28 10:48] LABS: C Reactive Protein 27.7 mg/L (<10.0)
[2020-03-28] MEDS ORDERED: NALOXONE 0.4 MG/ML 1 ML VIAL ONE (11:21)
[2020-03-28 11:26] LABS: Glucose,Whole Blood 174 mg/dL (75-99)
[2020-03-28] MEDS ORDERED: NALOXONE 0.4 MG/ML 1 ML VIAL IVP PRN (11:36)
[2020-03-28 12:24] LABS: Appearance,Urine Clear (Clear); Bilirubin,Urine Negative (Negative); Blood,Urine Negative (Negative); Color,Urine Light Yellow; Glucose,Urine (UA) Negative (Negative); Ketones,Urine Negative (Negative); Leukocyte Esterase,Urine Negative (Negative); Nitrite,Urine Negative (Negative); Protein,Urine Negative (Negative); Specific Gravity,Urine 1.008 (1.001-1.035); Urobilinogen,Urine <2.0 mg/dL (<2.0)
[2020-03-28 13:50] LABS: C-ANCA <1:20 Titer (<1:20)
--- NOTE | 2020-03-28 15:07 | P.PN ---
Subjective Progress Note Date: 03/28/20 HISTORY OF PRESENT ILLNESS This is a 54 year old female patient of Dr. Tabares and Dr. Ramirez with a past medical history of relapsing remitting multiple sclerosis, hypertension and hy pertensive cardiovascular disease with left ventricular hypertrophy, history of GERD, multiple sclerosis, COPD, asthma, history of osteoporosis, uterine cancer status post surgery, chronic hypoxic respiratory failure on home O2 at 2 L nasal cannula, tobacco use. She has had multiple admissions for acute exacerbation of her multiple sclerosis. Patient complains of headache that felt like her head was on fire that started on Thursday. It was in the left restorationism area. Worsen over the weekend and on Thursday was involving whole left side of her head area she has generalized tenderness to entire scalp area. She also states that she has been placing eardrops in her left ear and occasionally to her right. She denies having any fever or chills. She presented to [facility] emergency center afebrile, heart rate 98, blood pressure 138/91, pulse ox 95%. WBC 12.0, hemoglobin 15.4. CO2 39, creatinine 0.48. Blood sugar 123. Liver function tests normal. C-reactive protein 27.4, sed rate normal. Lactic acid 1.2. EKG is a sinus rhythm with no acute ST changes. CAT scan of the brain did not show any acute intracranial pathology. Patient was started on Solu-Medrol 250 mg every 6 hours and [facility] Subsequently, Solu- Medrol has been discontinued and patient started on Tegretol for trigeminal neuralgia. Consult with neurology in place and vascular surgeon for possible temporal arteritis. Sed rate is noted to be normal. 03/27: Patient was evaluated by neurology, Dr. Javier, and unsure of type of headache. Plan to rule out pseudotumor cerebri. He has recommended a lumbar puncture with opening pressure and at the time of this evaluation, patient is refusing but later changed her mind. CT angiogram of the neck and brain were negative. He has also recommended ENT consult which we will plan to do as an outpatient. There is no new relapse of MS. Vascular surgery does not plan for biopsy as temporal arteritis ruled out. Dr. Javier has also ruled out trigeminal neuralgia. Patient continues to have headache and significant tenderness to p alpation. When patient evaluated by anesthesia for LP, we will also has an evaluation for occipital neuralgia. Patient states that she would like an antibiotic as she thinks this would help her headache. At this time, antibiotics are denied. Patient does not show signs of sinusitis. Patient has been afebrile, heart rate 94, blood pressure 140/81, pulse ox 93% on 2 L nasal cannula. Repeat sed rate was 4 and C-reactive protein 2. Blood cultures no growth after 24 hours. 03/28: underwent lumbar puncture yesterday with opening pressure of 37 cm of water and closing pressure of 31 cm of water with removal of 14 ML's of cerebrospinal fluid. Dr. Javier started the patient on Diamox 500 mg 1 and 250 mg twice daily for idiopathic intracranial hypertension. this morning, patient had a fever of 101.8, heart rate 122, blood pressure 145/71, pulse ox 93% on 2 L nasal cannula. Blood culture, urinalysis and lab work ordered. At the time of evaluation, patient continued to have significant headache that did not seem to be improved following LP and drainage of some spinal fluid and initiation of Diamox. Later in the day, patient was found unresponsive with oxygen on at 2 L which is her baseline and pulse ox of 43%, heart rate in 115, respiratory rate 8. Patient was given Narcan with reversal of symptoms and was subsequently pulse oxing 98% on 2 L. Patient had received Dilaudid on top of her home medications this morning approximate one hour prior to this episode of unresp onsiveness. IV Dilaudid will be discontinued. Tegretol also discontinued. Case was discussed with Dr. Javier. REVIEW OF SYSTEMS Constitutional: No fever, no chills, no night sweats. No weight change. Denies weakness, fatigue or lethargy. No daytime sleepiness. EENT: Reports headache. No blurred vision or double vision, no loss of vision. Reports ear discomfort, no dizziness. No nasal drainage or congestion. No epistaxis. No sore throat. Lungs: No shortness of breath, cough, no sputum production. No wheezing. Cardiovascular: No chest pain, no lower extremity edema. No palpitations. No paroxysmal nocturnal dyspnea. No orthopnea. No lightheadedness or dizziness. No syncopal episodes. Abdominal: No abdominal pain. No nausea, vomiting. No diarrhea. No constipation. No bloody or tarry stools.. No loss of appetite. Genitourinary: No dysuria, increased frequency, urgency. No urinary retention. Musculoskeletal: No myalgias. Reports muscle weakness, no gait dysfunction, no frequent falls. No back pain. No neck pain. Integumentary: No wounds, no lesions. No rash or pruritus. No unusual bruising. No change in hair or nails. Neurologic: No aphasia. No facial droop. No change in mentation. No head injury. No headache. No paralysis. No paresthesia. Psychiatric: No depression. No anxiety. No mood swings. Endocrine: No abnormal blood sugars. No weight change. No excessive sweating or thirst. No cold intolerance. PHYSICAL EXAMINATION Gen: This is a morbidly obese 54-year-old -[place] female. She is resting in bed, patient able to speak in full sentences. HEENT: Head is atraumatic, normocephalic. Pupils equal, round. Sclerae is anicteric. Patient has tenderness in the entire left side of her scalp. No significant tenderness over the temporal artery area. NECK: Supple. No JVD. No lymphadenopathy. No thyromegaly. LUNGS: Clear to auscultation. No wheezes or rhonchi. No intercostal retracti ons. HEART: Regular rate and rhythm. No murmur. ABDOMEN: Soft. Bowel sounds are present. No masses. Mild left-sided tenderness. EXTREMITIES: No pedal edema. No calf tenderness. DP palpable. NEUROLOGICAL: Patient is awake, alert and oriented x3. Cranial nerves 2 through 12 are grossly intact. Hand life claims examiner equal and strong bilaterally, foot push pull strong bilaterally. ASSESSMENT AND PLAN 1. Headache due to Idiopathic intracranial hypertension (Pseudotumor cerebri). Consult with neurology and vascular surgery. Patient is status post LP with drainage of 14 ML's of 0 spinal fluid, started on Diamox 500 mg 1 followed by 250 mg twice daily. Dilaudid discontinued. 2. Febrile illness with unclear etiology. Urinalysis and urine culture, blood culture ordered. Inflammatory markers and repeat lab work ordered. 3. Unresponsive episode, responded to Narcan. Episode most likely due to IV Dilaudid on top of home medications. Neurology makes mention in all notes regarding polypharmacy as a problem. Dilaudid will be discontinued. 4. No MS exacerbation. Solu-Medrol will be discontinued for now, neurology consult. 5 History of relapsing remitting multiple sclerosis. 6. Chronic pain and occipital neuralgia under the care of Dr. Ramirez. Continue gabapentin 1200mg 3 times daily, Percocet one 3 times daily as needed, Fioricet as needed. 7. Hypertension and hypertensive cardiovascular disease. Hydrochlorothiazide 25 mg daily, verapamil 120 mg orally once every day. 8. Obesity with possible obstructive sleep apnea and obesity hypoventilation syndrome. 9. Mild intermittent asthma and COPD. Continue albuterol inhaler every 6 hours as needed, Symbicort twice daily, Singulair 10 mg daily, Flonase as needed. 10. Fibromyalgia. Continue gabapentin 1200 mg orally 3 times every day. 11. Generalized anxiety disorder. Continue Ativan 1 mg every 8 hours as needed. 12. Recurrent depression. Continue Paxil 40 mg daily. 13. Chronic tobacco use and dependence. Smoking cessation and counseling an increased risk of CAD, CVA, and malignancy. 14. Mild cognitive impairment. Continue patient on Namenda 10 mg orally twice every day. 15. Restless leg syndrome. Continue Requip 0.25 mg 2 times daily 16. DVT prophylaxis. Heparin subcu. 17. GERD and GI prophylaxis. Continue with Protonix 40 mg orally twice every day. CODE STATUS: Full code DISCHARGE PLAN Home with [facility]. Impression and plan of care have been directed as dictated by the signing physician. Elaine Nguyen nurse practitioner acting as scribe for signing physician. Objective - Vital Signs Vital signs: Vital Signs Temp 101.8 F H 03/28/20 05:00 Pulse 122 H 03/28/20 05:00 Resp 20 03/28/20 05:00 BP 145/71 03/28/20 05:00 Pulse Ox 93 L 03/28/20 05:00 Intake & Output 03/27/20 03/28/20 03/28/20 18:59 06:59 18:59 Intake Total 420 2200 Balance 420 2200 Intake: Intake, IV Titration 1600 Amount Sodium Chloride 0.9% 1, 1600 000 ml @ 100 mls/hr IV . Q10H [facility] Rx#:[id number] Oral 420 600 Other: Voiding Method Toilet # Voids 2 - Labs CBC & Chem 7: 03/28/20 08:41 03/28/20 08:41 Labs: Abnormal Lab Results - Last 24 Hours (Table) 03/27/20 03/27/20 Range/Units 05:09 14:45 C-Reactive Protein 2.0 H (0.0-0.8) mg/dL CSF RBC 195 H (0-10) u/L Microbiology - Last 24 Hours (Table) 03/27/20 14:45 CSF Gram Stain - Preliminary Cerebral Spinal Fluid CSF Culture - Preliminary 03/26/20 04:57 Blood Culture - Preliminary Blood No Growth after 24 hours
--- NOTE | 2020-03-28 16:21 | P.PN ---
Subjective Progress Note Date: 03/28/20 Patient was seen at bedside and she continues to have the same type of headache she said that didn't resolve after lumbar puncture. She denies of any nausea vomiting. She feels the headache continues to be over the left hemisphere. I spoke with the anesthesiologist via phone who performed a lumbar puncture and he stated he took out 14 mL of CSF which is also documented on his notes. Again the opening pressure was 37 and the closing pressure was 31. Objective - Vital Signs Vital signs: Vital Signs Temp 98.0 F 03/28/20 13:14 Pulse 88 03/28/20 13:36 Resp 16 03/28/20 13:14 BP 111/73 03/28/20 13:14 Pulse Ox 97 03/28/20 13:14 Intake & Output 03/27/20 03/28/20 03/28/20 18:59 06:59 18:59 Intake Total 420 2200 1320 Balance 420 2200 1320 Intake: Intake, IV Titration 1600 Amount Sodium Chloride 0.9% 1, 1600 000 ml @ 100 mls/hr IV . Q10H [facility] Rx#:[id number] Oral 420 600 920 Other 400 Other: Voiding Method Toilet # Voids 2 - Exam GENERAL: The patient is lying in bed and is mild to moderate acute distress. HENT: Normocephalic. Tender to touch throughout entire left side and even left neck region. NEUROLOGICAL: Higher mental function: The patient is awake, alert, oriented to self, place and time. Patient is following commands. No aphasia and no neglect. Cranial nerves: The pupils are round, equal, 3-4mm and reactive to light and accommodation. Visual schwarz are full to confrontation throughout. Extraocular movement is intact no nystagmus is noted. Facial sensation is normal to touch throughout. The facial strength is normal throughout. Hearing is normal bilaterally to hand rub. Tongue is midline and moved [id number] without any difficulty. No dysarthria is noted. Shoulder shrug is normal bilaterally. Motor: The strength is 5/5 throughout except proximal upper extremities because of her pain. Normal tone and bulk. Cerebellum: Normal finger to nose bilaterally. Sensation: Sensation is normal to touch throughout. Reflexes (right/left): 2+ throughout Plantars are downgoing bilaterally. - Labs CBC & Chem 7: 03/28/20 08:41 03/28/20 08:41 Labs: Abnormal Lab Results - Last 24 Hours (Table) 03/27/20 03/28/20 03/28/20 Range/Units 14:45 08:41 08:41 WBC 14.3 H (3.8-10.6) k/uL Sodium 134 L (137-145) mmol/L Chloride 94 L (98-107) mmol/L Carbon Dioxide 36 H (22-30) mmol/L Glucose 154 H (74-99) mg/dL POC Glucose (mg/dL) (75-99) mg/dL C-Reactive Protein (<10.0) mg/L Total Protein 6.1 L (6.3-8.2) g/dL CSF RBC 195 H (0-10) u/L 03/28/20 03/28/20 Range/Units 08:41 11:25 WBC (3.8-10.6) k/uL Sodium (137-145) mmol/L Chloride (98-107) mmol/L Carbon Dioxide (22-30) mmol/L Glucose (74-99) mg/dL POC Glucose (mg/dL) 174 H (75-99) mg/dL C-Reactive Protein 27.7 H (<10.0) mg/L Total Protein (6.3-8.2) g/dL CSF RBC (0-10) u/L Microbiology - Last 24 Hours (Table) 03/26/20 04:57 Blood Culture - Preliminary Blood No Growth after 48 hours 03/27/20 14:45 CSF Gram Stain - Preliminary Cerebral Spinal Fluid CSF Culture - Preliminary Assessment and Plan Assessment: This is a 54-year-old woman with history of fall relapsing remitting multiple sclerosis, peripheral neuropathy that presented emergency department on 03/26/2020 for headache. She has history of migraine but she said that this feels different than usual headache. Cephalgia due to Idiopathic intracranial hypertension (Pseudotumor cerebri) History of Migraine History of for relapsing remitting multiple sclerosis---no new relapse History of peripheral neuropathy History of fibromyalgia Polypharmacy History of hypertension Morbid obesity History of COPD History of osteoporosis History of uterine cancer status post surgery Plan: Lumbar Puncture 03/27/20: Opening pressure was 37 cm of water and the closing pressure was 31 cm of water. 14 mL were removed. In my consultation note and also order I stated if opening pressure is more than 21 that I recommend the closing pressure to be between 18 and 20 cm of water. The CSF glucose clear, colorless, red blood cell was 195, total nucleated cells 0, glucose is 70 which is within normal limits and the CSF 14 is 44 which is al so within normal limits. Pending oligoclonal band as well as Anant from CSF. CTA of the head and neck: Negative CT of the head and neck. Continue Acetazolamide 250 mg 1 tablet twice a day. Patient was counseled on weight loss. If the patient continues to have the symptoms of headache and it's not resolved then I am considering repeat lumbar puncture on 03/30/2020. And if the opening pressure continues to be elevated even after closing then I recommend the patient to be transferred to a facility with neurosurgery for possibly the lumbo-peritoneal shunt CASEY is negative. Patria 1 antibody is negative. CANCA is less than the 1:20 ESR is 2 and a repeat ESR is 4. CRP is on initial presentation was 27.4 which I think was reactive and the repeated was 2.0 which was done on 03/27/2020. With the patient's clinical history as well as the lab of the ESR, I highly doubt the patient has the giant cell arteritis. Vascular surgeon was consulted and they're in agreement that the procedure was not necessary and therefore that was not done. I recommend an ENT consult regarding her ringing in the ear and hearing loss that's is a chronic issue according to the patient. If cannot be done then recommend as an outpatient. I believe the patient is on polypharmacy and she is being overmedicated by her outpatient neurologist. Fioricets, NSAIDs and opioids on a chronic basis can cause medication over use headache. Again I believe that her gabapentin 1200 mg 3 times a day is a high dose and she should be tapered down slightly. Upon discharge the patient needs to follow-up with a neurologistwithin 1-2 weeks. Final was discussed with the patient as well as the primary team. Will continue to follow. Jayden Javier M.D. Neuro-hospitalist Time with Patient: Less than 30
[2020-03-28 18:29] LABS: Ferritin 138.7 ng/mL (10.0-291.0)
[2020-03-29] MEDS: SODIUM CHLORIDE 0.9% 1,000 ML IV SCH ×2 (04:00→15:42)
[2020-03-29] MEDS: NICOTINE 21MG/24HR PATCH TRANSDERM SCH (08:01)
[2020-03-29] MEDS: ASPIRIN 81 MG PO SCH (08:01)
[2020-03-29] MEDS: MONTELUKAST 10 MG TAB PO SCH (08:02)
[2020-03-29] MEDS: FOLIC ACID 1 MG TAB PO SCH (08:02)
[2020-03-29] MEDS: MULTIVITAMINS, THERA 1 EACH TAB PO SCH (08:02)
[2020-03-29] MEDS: LORazepam 1 MG TAB PO SCH ×3 (08:02→22:43)
[2020-03-29] MEDS: GABAPENTIN 400 MG CAP PO SCH ×3 (08:02→23:20)
[2020-03-29] MEDS: PANTOPRAZOLE 40 MG TABLET PO SCH ×2 (08:02→22:43)
[2020-03-29] MEDS: oxyCODONE-APAP 10-325MG 1 EACH TAB PO SCH ×3 (08:02→23:03)
[2020-03-29] MEDS: hydroCHLOROthiazide 25 MG TAB PO SCH (08:04)
[2020-03-29] MEDS: acetaZOLAMIDE 250 MG TAB PO SCH ×3 (08:04→23:19)
[2020-03-29] MEDS: VERAPAMIL SR 120 MG TABLET.ER PO SCH (08:04)
[2020-03-29] MEDS: HEPARIN SODIUM,PORCINE 5,000 UNIT/ML 1 ML VIAL SQ SCH ×2 (08:04→23:09)
[2020-03-29] MEDS: PARoxetine 20 MG TAB PO SCH (08:04)
[2020-03-29] MEDS: MEMANTINE 10 MG TAB PO SCH ×2 (08:04→23:43)
[2020-03-29] MEDS: methocarbamoL 750 MG TAB PO SCH ×3 (08:05→22:44)
[2020-03-29] MEDS: busPIRone HCl 10 MG TAB PO SCH ×3 (08:05→23:03)
[2020-03-29] MEDS: BUTALB/APAP/CAFF 50-325-40MG TAB PO SCH ×3 (08:06→23:01)
[2020-03-29] MEDS: NON FORMULARY DRUG (Zinc Gluconate 50 MG Tab) PO SCH (08:11)
[2020-03-29] MEDS: SYMBICORT 160-4.5 MCG INHALER INHALATION SCH ×2 (09:03→21:13)
[2020-03-29] MEDS: IPRATROPIUM-ALBUTEROL 3 ML NEB INHALATION PRN ×3 (09:03→21:16)
[2020-03-29] MEDS ORDERED: RX INFO: IV CONTRAST WAS GIVEN 1 EACH MISC MISCELLANE PRN (09:56)
--- NOTE | 2020-03-29 11:27 | CT ---
EXAMINATION TYPE: CT brain w con DATE OF EXAM: 03/29/2020 COMPARISON: 03/26/2020 HISTORY: WICK CT DLP: 1072.3 mGycm Automated exposure control for dose reduction was used. CONTRAST: CT scan of the head is performed with IV Contrast, patient injected with 100 mL of Isovue 300. FINDINGS: There is no abnormal enhancing mass or midline shift identified. The ventricles and sulci are within normal limits in size. The globes are intact and the visualized sinuses are clear. Delayed images demonstrate appropriate opacification of the dural venous sinuses without thrombus see n at this time. Greater Sensitivity and specificity with MRI/MRV. IMPRESSION: No CT evidence to suggest dural venous sinus thrombosis at this time.
--- NOTE | 2020-03-29 15:07 | P.PN ---
Subjective Progress Note Date: 03/29/20 Patient was seen at bedside and that she stated that she continues to seem to have a headache over the left side and around left eye. She could not describe it for a but she said it feels like it's on fire. She said the pain is more than a 10/10. She feels like she is having the pulsating noise on both ears. She is having the blurry vision on the left eye. She denies of any nausea, vomiting. She denies of any focal weakness or numbness. Denies of any word finding difficulties. She said that that delighted the was helping control and the headache. She did state that that she had this pulsatingfor last couple months. And she had the headache but not to this degree and the past. I saw the primary care team and they said that that this patient had the similar headache in the past like this and as an inpatient she's never received a lumbar puncture. Objective - Vital Signs Vital signs: Vital Signs Temp 97.9 F 03/29/20 14:20 Pulse 101 H 03/29/20 14:20 Resp 16 03/29/20 14:20 BP 131/83 03/29/20 14:20 Pulse Ox 95 03/29/20 14:20 Intake & Output 03/28/20 03/29/20 03/29/20 18:59 06:59 18:59 Intake Total 1840 Balance 1840 Intake: Oral 1440 Other 400 Other: Voiding Method Toilet Toilet # Voids 1 2 2 # Bowel Movements 1 0 - Exam GENERAL: The patient is lying in bed and is mild to moderate acute distress. HENT: Normocephalic. Tender to touch throughout entire left side of left hemisphere. NEUROLOGICAL: Higher mental function: The patient is awake, alert, oriented to self, place and time. Patient is following commands. No aphasia and no neglect. Cranial nerves: The pupils are round, equal, 3-4mm and reactive to light and accommodation. Visual schwarz are full to confrontation throughout. Extraocular movement is intact no nystagmus is noted. Facial sensation is normal to touch throughout. The facial strength is normal throughout. Hearing is normal bilaterally to hand rub. Tongue is midline and moved [id number] without any difficulty. No dysarthria is noted. Shoulder shrug is normal bilaterally. Motor: The strength is 5/5 throughout except proximal upper extremities because of her pain. Normal tone and bulk. Cerebellum: Normal finger to nose bilaterally. Sensation: Sensation is normal to touch throughout. Reflexes (right/left): 2+ throughout Plantars are downgoing bilaterally. - Labs CBC & Chem 7: 03/28/20 08:41 03/28/20 08:41 Labs: Microbiology - Last 24 Hours (Table) 03/28/20 08:41 Blood Culture - Preliminary Blood No Growth after 24 hours 03/26/20 04:57 Blood Culture - Preliminary Blood No Growth after 72 hours 03/27/20 14:45 CSF Gram Stain - Preliminary Cerebral Spinal Fluid CSF Culture - Preliminary Assessment and Plan Assessment: This is a 54-year-old woman with history of fall relapsing remitting multiple sclerosis, peripheral neuropathy that presented emergency department on 03/26/2020 for headache. She has history of migraine but she said that this feels different than usual headache. Cephalgia due to Idiopathic intracranial hypertension (Pseudotumor cerebri) History of Migraine History of for relapsing remitting multiple sclerosis---no new relapse History of peripheral neuropathy History of fibromyalgia Polypharmacy History of hypertension Morbid obesity History of COPD History of osteoporosis History of uterine cancer status post surgery Plan: * Lumbar Puncture 03/27/20: Opening pressure was 37 cm of water and the closing pressure was 31 cm of water. 14 mL were removed. * The CSF glucose clear, colorless, red blood cell was 195, total nucleated cells 0, glucose is 70 which is within normal limits and the CSF 14 is 44 which is also within normal limits. Pending oligoclonal band as well as Anant from CSF. * CTA of the head and neck: Negative CT of the head and neck. * CT brain/CTV: No evidence to suggest dural venous sinus thrombosis. * Acetazolamide 250 mg 1 tablet twice a day increased to 500mg 1 tablet bid. * Ordered one time dose of Solu-Medrol to see if helps with headache. * Patient was counseled on weight loss. * Because the patient continues to have symptoms will repeat Lumbar puncture for 03/30/20 and recommend to remove maximum of 22-24cc of fluid or less if closing pressure is 22-25cm of water. * If patient continues to have headache I recommend patient to be transfered for surgical evaluation (shunt or optic nerve sheath fenestration). * CASEY is negative. Patria 1 antibody is negative. * CANCA is less than the 1:20 * ESR is 2 and a repeat ESR is 4. * CRP is on initial presentation was 27.4 which I think was reactive and the repeated was 2.0 which was done on 03/27/2020. With the patient's clinical history as well as the lab of the ESR, I highly doubt the patient has the giant cell arteritis. * Vascular surgeon was consulted and they're in agreement that the procedure was not necessary and therefore that was not done. * I recommend an ENT consult regarding her ringing in the ear and hearing loss that's is a chronic issue according to the patient. If cannot be done then recommend as an outpatient. * I believe the patient is on polypharmacy and she is being overmedicated by her outpatient neurologist. Fioricets, NSAIDs and opioids on a chronic basis can cause medication over use headache. * Again I believe that her gabapentin 1200 mg 3 times a day is a high dose and she should be tapered down slightly. * Upon discharge the patient needs to follow-up with a neurologist within 1-2 weeks. * Planl was discussed with the patient as well as the primary team. Will continue to follow. Jayden Javier M.D. Neuro-hospitalist Time with Patient: Less than 30
--- NOTE | 2020-03-29 16:54 | P.PN ---
Subjective Progress Note Date: 03/29/20 HISTORY OF PRESENT ILLNESS This is a 54 year old female patient of Dr. Tabares and Dr. Ramirez with a past medical history of relapsing remitting multiple sclerosis, hypertension and hy pertensive cardiovascular disease with left ventricular hypertrophy, history of GERD, multiple sclerosis, COPD, asthma, history of osteoporosis, uterine cancer status post surgery, chronic hypoxic respiratory failure on home O2 at 2 L nasal cannula, tobacco use. She has had multiple admissions for acute exacerbation of her multiple sclerosis. Patient complains of headache that felt like her head was on fire that started on Thursday. It was in the left zoroastrian area. Worsen over the weekend and on Thursday was involving whole left side of her head area she has generalized tenderness to entire scalp area. She also states that she has been placing eardrops in her left ear and occasionally to her right. She denies having any fever or chills. She presented to [facility] emergency center afebrile, heart rate 98, blood pressure 138/91, pulse ox 95%. WBC 12.0, hemoglobin 15.4. CO2 39, creatinine 0.48. Blood sugar 123. Liver function tests normal. C-reactive protein 27.4, sed rate normal. Lactic acid 1.2. EKG is a sinus rhythm with no acute ST changes. CAT scan of the brain did not show any acute intracranial pathology. Patient was started on Solu-Medrol 250 mg every 6 hours and [facility]. Subsequently, Solu- Medrol has been discontinued and patient started on Tegretol for trigeminal neuralgia. Consult with neurology in place and vascular surgeon for possible temporal arteritis. Sed rate is noted to be normal. 03/27: Patient was evaluated by neurology, Dr. Javier, and unsure of type of headache. Plan to rule out pseudotumor cerebri. He has recommended a lumbar puncture with opening pressure and at the time of this evaluation, patient is refusing but later changed her mind. CT angiogram of the neck and brain were negative. He has also recommended ENT consult which we will plan to do as an outpatient. There is no new relapse of MS. Vascular surgery does not plan for biopsy as temporal arteritis ruled out. Dr. Javier has also ruled out trigeminal neuralgia. Patient continues to have headache and significant tenderness to p alpation. When patient evaluated by anesthesia for LP, we will also has an evaluation for occipital neuralgia. Patient states that she would like an antibiotic as she thinks this would help her headache. At this time, antibiotics are denied. Patient does not show signs of sinusitis. Patient has been afebrile, heart rate 94, blood pressure 140/81, pulse ox 93% on 2 L nasal cannula. Repeat sed rate was 4 and C-reactive protein 2. Blood cultures no growth after 24 hours. 03/28: underwent lumbar puncture yesterday with opening pressure of 37 cm of water and closing pressure of 31 cm of water with removal of 14 ML's of cerebrospinal fluid. Dr. Javier started the patient on Diamox 500 mg 1 and 250 mg twice daily for idiopathic intracranial hypertension. this morning, patient had a fever of 101.8, heart rate 122, blood pressure 145/71, pulse ox 93% on 2 L nasal cannula. Blood culture, urinalysis and lab work ordered. At the time of evaluation, patient continued to have significant headache that did not seem to be improved following LP and drainage of some spinal fluid and initiation of Diamox. Later in the day, patient was found unresponsive with oxygen on at 2 L which is her baseline and pulse ox of 43%, heart rate in 115, respiratory rate 8. Patient was given Narcan with reversal of symptoms and was subsequently pulse oxing 98% on 2 L. Patient had received Dilaudid on top of her home medications this morning approximate one hour prior to this episode of unresp onsiveness. IV Dilaudid will be discontinued. Tegretol also discontinued. Case was discussed with Dr. Javier. 03/29: Patient still complains of severe burning headache left side, discussed with Dr. Javier neurology, he has increased he is Diamox 500 mg twice a day, with plan for repeat LP in the morning, and might need to be transferred to tertiary center, for lumboperitoneal shunt. Patient denies there being any diplopia, no weakness upper extremity lower extremity, and no nausea. REVIEW OF SYSTEMS Constitutional: No fever, no chills, no night sweats. No weight change. Denies weakness, fatigue or lethargy. No daytime sleepiness. EENT: Reports headache. No blurred vision or double vision, no loss of vision. Reports ear discomfort, no dizziness. No nasal drainage or congestion. No epistaxis. No sore throat. Lungs: No shortness of breath, cough, no sputum production. No wheezing. Cardiovascular: No chest pain, no lower extremity edema. No palpitations. No paroxysmal nocturnal dyspnea. No orthopnea. No lightheadedness or dizziness. No syncopal episodes. Abdominal: No abdominal pain. No nausea, vomiting. No diarrhea. No constipation. No bloody or tarry stools.. No loss of appetite. Genitourinary: No dysuria, increased frequency, urgency. No urinary retention. Musculoskeletal: No myalgias. Reports muscle weakness, no gait dysfunction, no frequent falls. No back pain. No neck pain. Integumentary: No wounds, no lesions. No rash or pruritus. No unusual bruising. No change in hair or nails. Neurologic: No aphasia. No facial droop. No change in mentation. No head injury. No headache. No paralysis. No paresthesia. Psychiatric: No depression. No anxiety. No mood swings. Endocrine: No abnormal blood sugars. No weight change. No excessive sweating or thirst. No cold intolerance. Objective - Vital Signs Vital signs: Vital Signs Temp 98.4 F 03/29/20 04:40 Pulse 87 03/29/20 09:15 Resp 16 03/29/20 04:40 BP 138/79 03/29/20 04:40 Pulse Ox 98 03/29/20 09:03 Intake & Output 03/28/20 03/29/20 03/29/20 18:59 06:59 18:59 Intake Total 1840 Balance 1840 Intake: Oral 1440 Other 400 Other: Voiding Method Toilet Toilet # Voids 1 2 2 # Bowel Movements 1 0 - Constitutional General appearance: Present: cooperative, no acute distress - EENT Eyes: Present: anicteric sclerae, PERRLA, dentition normal ENT: Present: hearing grossly normal, NA/AT, normal oropharynx - Respiratory Respiratory: bilateral: CTA, negative: diminished, dullness, rales - Cardiovascular Rhythm: regular Heart sounds: normal: S1 - Gastrointestinal General gastrointestinal: Present: soft - Integumentary Integumentary: Present: decreased turgor, normal - Neurologic Neurologic: Present: CNII-XII intact - Musculoskeletal Musculoskeletal: Present: gait normal (Patient limps when ambulating to the bathroom which is baseline) - Labs CBC & Chem 7: 03/28/20 08:41 03/28/20 08:41 Labs: Microbiology - Last 24 Hours (Table) 03/28/20 08:41 Blood Culture - Preliminary Blood No Growth after 24 hours 03/26/20 04:57 Blood Culture - Preliminary Blood No Growth after 72 hours 03/27/20 14:45 CSF Gram Stain - Preliminary Cerebral Spinal Fluid CSF Culture - Preliminary Assessment and Plan Plan: ASSESSMENT AND PLAN 1. Headache due to Idiopathic intracranial hypertension (Pseudotumor cerebri). Consult with neurology and vascular surgery. Patient is status post LP with drainage of 14 ML's of 0 spinal fluid, started on Diamox 500 mg 1 followed by 250 mg twice daily increased to 500 twice a day as of March 29. Dilaudid discontinued. Patient is aware of this discontinuation, neurology has recommended repeating an LP on March 30, with possible referral to tertiary for lumbo peritoneal shunt[[[[[[[[[[[[[[[[[[[[[[[[[[[[[[[[[[[[[[[[[[[[[[[[[[[[[[[[[[[[[[[[[[[[[[[[[[[ [[[[[[[[[[[ [[[[[[[[[[[[[[[[[[[[[[[[[[[[[[[[[[[[[[[[[[[[[[[[[[[[[[[[[[[[[[[[[[[[[[[[[[[[[[[[ [[[[[[[[[[[[[[[[[[[[ [[[[[[[[[[[[[[[[[[[[[[[[[[[[[[[[[[[[[[[[[[[[[[[[[[[[[[[[[[[[[[[[[[[[[[[[[[[[[[[[ [[[[[[[[[[[[[[[[[[[[ [[[[[[[[[[[[[[[[[[[[[[[[[[[[[[[[[[[[[[[[[[[[[[[[[[[[[[[[[[[[[[[[[[[[[[[[[[[[[[[[ [[[[[[[[[[[[[[[[[[[[ [[[[[[[[[[[[[[[[[[[[[[[[[[[[[[[[[[[[[[[[[[[[[[[[[[[[[[[[[[[[[[[[[[[[[[[[[[[[[[[[ [[[[[[[[[[[[[[[[[[[[ [[[[[[[[[[[[[[[[[[[[[[[[[[[[[[[[[[[[[[[[[[[[[[[[[[[[[[[[[[[[[[[[[[[[[[[[[[[[[[[[ [[[[[[[[[[[[[[[[[[[[ [[[[[[[[[[[[[[[[[[[[[[[[[[[[[[[[[[[[[[[[[[[[[[[[[[[[[[[[[[[[[[[[[[[[[[[[[[[[[[[[ [[[[[[[[[[[[[[[[[[[[ [[[[[[[[[[[[[[[[[[[[[[[[[[[[[[[[[[[[[[[[[[[[[[[[[[[[[[[[[[[[[[[[[[[[[[[[[[[[[[[[ [[[[[[[[[[[[[[[[[[[[ [[[[[[[[[[[[[[[[[[[[[[[[[[[[[[[[[[[[[[[[[[[[[[[[[[[[[[[[[[[[[[[[[[[[[[[[[[[[[[[[ [[[[[[[[[[[[[[[[[[[[ [[[[[[[[[[[[[[[[[[[[[[[[[[[[[[[[[[[[[[[[[[[[[[[[[[[[[[[[[[[[[[[[[[[[[[[[[[[[[[[[ [[[[[[[[[[[[[[[[[[[[ [[[[[[[[[[[[[[[[[[[[[[[[[[[[[[[[[[[[[[[[[[[[[[[[[[[[[[[[[[[[[[[[[[[[[[[[[[[[[[[[ [[[[[[[[[[[[[[[[[[[[ [[[[[[[[[[[[[[[[[[[[[[[[[[[[[[[[[[[[[[[[[[[[[[[[[[[[[[[[[[[[[[[[[[[[[[[[[[[[[[[[ [[[[[[[[[[[[[[[[[[[[ [[[[[[[[[[[[[[[[[[[[[[[[[[[[[[[[[[[[[[[[[[[[[[[[[[[[[[[[[[[[[[[[[[[[[[[[[[[[[[[[ [[[[[[[[[[[[[[[[[[[[ [[[[[[[[[[[[[[[[[[[[[[[[[[[[[[[[[[[[[[[[[[[[[[[[[[[[[[[[[[[[[[[[[[[[[[[[[[[[[[[[ [[[[[[[[[[[[[[[[[[[[ [[[[[[[[[[[[[[[[[[[[[[[[[[[[[[[[[[[[[[[[[[[[[[[[[[[[[[[[[[[[[[[[[[[[[[[[[[[[[[[[ [[[[[[[[[[[[[[[[[[[[ [[[[[[[[[[[[[[[[[[[[[[[[[[[[[[[[[[[[[[[[[[[[[[[[[[[[[[[[[[[[[[[[[[[[[[[[[[[[[[[[ [[[[[[[[[[[[[[[[[[[[ [[[[[[[[[[[[[[[[[[[[[[[[[[[[[[[[[[[[[[[[[[[[[[[[[[[[[[[[[[[[[[[[[[[[[[[[[[[[[[[[ [[[[[[[[[[[[[[[[[[[[ [[[[[[[[[[[[[[[[[[[[[[[[[[[[[[[[[[[[[[[[[[[[[[[[[[[[[[[[[[[[[[[[[[[[[[[[[[[[[[[[ [[[[[[[[[[[[[[[[[[[[ [[[[[[[[[[[[[[[[[[[[[[[[[[[[[[[[[[[[[[[[[[[[[[[[[[[[[[[[[[[[[[[[[[[[[[[[[[[[[[[[ [[[[[[[[[[[[[[[[[[[[ [[[[[[[[[[[[[[[[[[[[[[[[[[[[[[[[[[[[[[[[[[[[[[[[[[[[[[[[[[[[[[[[[[[[[[[[[[[[[[[[ [[[[[[[[[[[[[[[[[[[[ [[[[[[[[[[[[[[[[[[[[[[[[[[[[[[[[[[[[[[[[[[[[[[[[[[[[[[[[[[[[[[[[[[[[[[[[[[[[[[[[ [[[[[[[[[[[[[[[[[[[[ [[[[[[[[[[[[[[[[[[[[[[[[[[[[[[[[[[[[[[[[[[[[[[[[[[[[[[[[[[[[[[[[[[[[[[[[[[[[[[[[ [[[[[[[[[[[[[[[[[[[[ [[[[[[[[[[[[[[[[[[[[[[[[[[[[[[[[[[[[[[[[[[[[[[[[[[[[[[[[[[[[[[[[[[[[[[[[[[[[[[[[ [[[[[[[[[[[[[[[[[[[[ [[[[[[[[[[[[[[[[[[[[[[[[[[[[[[[[[[[[[[[[[[[[[[[[[[[[[[[[[[[[[[[[[[[[[[[[[[[[[[[[ [[[[[[[[[[[[[[[[[[[[ [[[[[[[[[[[[[[[[[[[[[[[[[[[[[[[[[[[[[[[[[[[[[[[[[[[[[[[[[[[[[[[[[[[[[[[[[[[[[[[[ [[[[[[[[[[[[[[[[[[[[ [[[[[[[[[[[[[[[[[[[[[[[[[[[[[[[[[[[[[[[[[[[[[[[[[[[[[[[[[[[[[[[[[[[[[[[[[[[[[[[[ [[[[[[[[[[[[[[[[[[[[ [[[[[[[[[[[[[[[[[[[[[[[[[[[[[[[[[[[[[[[[[[[[[[[[[[[[[[[[[[[[[[[[[[[[[[[[[[[[[[[[ [[[[[[[[[[[[[[[[[[[[ [[[[[[[[[[[[[[[[[[[[[[[[[[[[[[[[[[[[[[[[[[[[[[[[[[[[[[[[[[[[[[[[[[[[[[[[[[[[[[[[ [[[[[[[[[[[[[[[[[[[[[[[[[[[[[[[[[[[[[[[[[[[[[[[[shunt 2. Febrile illness with unclear etiology. Urinalysis and urine culture, blood culture ordered. Inflammatory markers and repeat lab work ordered. 3. Unresponsive episode, responded to Narcan. Episode most likely due to IV Dilaudid on top of home medications. Neurology makes mention in all notes regarding polypharmacy as a problem. Dilaudid will be discontinued. 4. No MS exacerbation. Solu-Medrol will be discontinued for now, neurology consult. 5 History of relapsing remitting multiple sclerosis. 6. Chronic pain and occipital neuralgia under the care of Dr. Ramirez. Continue gabapentin 1200mg 3 times daily, Percocet one 3 times daily as needed, Fioricet as needed. 7. Hypertension and hypertensive cardiovascular disease. Hydrochlorothiazide 25 mg daily, verapamil 120 mg orally once every day. 8. Obesity with possible obstructive sleep apnea and obesity hypoventilation syndrome. 9. Mild intermittent asthma and COPD. Continue albuterol inhaler every 6 hours as needed, Symbicort twice daily, Singulair 10 mg daily, Flonase as needed. 10. Fibromyalgia. Continue gabapentin 1200 mg orally 3 times every day. 11. Generalized anxiety disorder. Continue Ativan 1 mg every 8 hours as needed. 12. Recurrent depression. Continue Paxil 40 mg daily. 13. Chronic tobacco use and dependence. Smoking cessation and counseling an increased risk of CAD, CVA, and malignancy. 14. Mild cognitive impairment. Continue patient on Namenda 10 mg orally twice every day. 15. Restless leg syndrome. Continue Requip 0.25 mg 2 times daily 16. DVT prophylaxis. Heparin subcu. 17. GERD and GI prophylaxis. Continue with Protonix 40 mg orally twice every day. CODE STATUS: Full code DISCHARGE PLAN
[2020-03-30] MEDS: MELATONIN 5 MG TABLET PO SCH ×2 (01:02→23:03)
[2020-03-30] MEDS: SODIUM CHLORIDE 0.9% 1,000 ML IV SCH ×2 (02:00→08:16)
[2020-03-30] MEDS: NICOTINE 21MG/24HR PATCH TRANSDERM SCH (08:02)
[2020-03-30] MEDS: GABAPENTIN 400 MG CAP PO SCH ×4 (08:03→23:07)
[2020-03-30] MEDS: ASPIRIN 81 MG PO SCH (08:03)
[2020-03-30] MEDS: MULTIVITAMINS, THERA 1 EACH TAB PO SCH (08:03)
[2020-03-30] MEDS: MONTELUKAST 10 MG TAB PO SCH (08:03)
[2020-03-30] MEDS: LORazepam 1 MG TAB PO SCH ×4 (08:03→23:12)
[2020-03-30] MEDS: FOLIC ACID 1 MG TAB PO SCH (08:03)
[2020-03-30] MEDS: HEPARIN SODIUM,PORCINE 5,000 UNIT/ML 1 ML VIAL SQ SCH ×2 (08:03→23:15)
[2020-03-30] MEDS: PANTOPRAZOLE 40 MG TABLET PO SCH ×2 (08:03→23:05)
[2020-03-30] MEDS: oxyCODONE-APAP 10-325MG 1 EACH TAB PO SCH ×3 (08:04→23:10)
[2020-03-30] MEDS: BUTALB/APAP/CAFF 50-325-40MG TAB PO SCH ×2 (08:06→15:57)
[2020-03-30] MEDS: VERAPAMIL SR 120 MG TABLET.ER PO SCH (08:06)
[2020-03-30] MEDS: MEMANTINE 10 MG TAB PO SCH ×2 (08:06→23:04)
[2020-03-30] MEDS: methocarbamoL 750 MG TAB PO SCH ×3 (08:06→23:09)
[2020-03-30] MEDS: busPIRone HCl 10 MG TAB PO SCH ×3 (08:07→23:06)
[2020-03-30] MEDS: acetaZOLAMIDE 250 MG TAB PO SCH ×2 (08:07→23:03)
[2020-03-30] MEDS: PARoxetine 20 MG TAB PO SCH (08:08)
[2020-03-30] MEDS: hydroCHLOROthiazide 25 MG TAB PO SCH (08:08)
[2020-03-30] MEDS: NON FORMULARY DRUG (Zinc Gluconate 50 MG Tab) PO SCH (08:16)
[2020-03-30] MEDS: IPRATROPIUM-ALBUTEROL 3 ML NEB INHALATION PRN ×2 (08:32→20:41)
[2020-03-30] MEDS: SYMBICORT 160-4.5 MCG INHALER INHALATION SCH ×3 (08:33→20:47)
[2020-03-30] MEDS ORDERED: LORazepam 2 MG/ML INJ IV STA (14:51)
--- NOTE | 2020-03-30 14:58 | P.PN ---
Subjective Progress Note Date: 03/30/20 The patient was seen at [facility] and she stated she continue to have headache over the left hemisphere and feels there is pain over the left eye. She no longer has sensation of feeling as if it is on fire but feels pain to touch over the left hemisphere. She feels the pain feels >10/10 and is constant. She complains of photophobia but denies nausea or vomiting. She denies of phonophobia. She denies of weakness, numbness, slurring of speech or difficulty swallowing. She continues to have pulsating out of both ears. She does have blurry over both eyes and said this has been going on for the past 6 months, which she saw a local Ophthamologist as outpatient for blurry vision but could not tell me name. But according to her, was told she had vision change out of both eyes "but there is no eye scrip" for eyes? Regarding pulsating out of both ears she said this has to had to happen for at least 6 month. Patient spiked a fever once stroke in this hospital stay and it was on 03/28/2020 and temperature was 101.8 Fahrenheit oral other metastases no fevers. She was not start on any antibiotic. The CSF cultures no organisms seen. Blood cultures there is no organism after 48 hours. And the urinalysis was negative for UTI. Objective - Vital Signs Vital signs: Vital Signs Temp 97.3 F L 03/30/20 12:07 Pulse 83 03/30/20 12:07 Resp 18 03/30/20 12:07 BP 110/75 03/30/20 12:07 Pulse Ox 93 L 03/30/20 12:07 Intake & Output 03/29/20 03/30/20 03/30/20 18:59 06:59 18:59 Intake Total 360 Balance 360 Intake: Oral 360 Other: Voiding Method Toilet Toilet Toilet # Voids 4 - Exam GENERAL: The patient is lying in bed and is mild to moderate acute distress. HENT: Normocephalic. Tender to touch throughout entire left side of left hemis phere. NEUROLOGICAL: Higher mental function: The patient is awake, alert, oriented to self, place and time. Patient is following commands. No aphasia and no neglect. Cranial nerves: The pupils are round, equal, 3-4mm and reactive to light and accommodation. Visual acuity: OD 20/40, OS: 20/50 both without correction. Visual schwarz are full to confrontation throughout. Extraocular movement is intact no nystagmus is noted. Facial sensation is normal to touch throughout. The facial strength is normal throughout. Hearing is normal bilaterally to hand rub. Tongue is midline and moved [id number] without any difficulty. No dysarthria is noted. Shoulder shrug is normal bilaterally. Motor: The strength is 5/5 throughout except proximal upper extremities because of her pain. Normal tone and bulk. Cerebellum: Normal finger to nose bilaterally. Sensation: Sensation is normal to touch throughout. Reflexes (right/left): 2+ throughout Plantars are downgoing bilaterally. - Labs CBC & Chem 7: 03/28/20 08:41 03/28/20 08:41 Labs: Microbiology - Last 24 Hours (Table) 03/28/20 08:41 Blood Culture - Preliminary Blood No Growth after 48 hours 03/26/20 04:57 Blood Culture - Preliminary Blood No Growth after 96 hours 03/27/20 14:45 CSF Gram Stain - Preliminary Cerebral Spinal Fluid CSF Culture - Preliminary Assessment and Plan Assessment: This is a 54-year-old woman with history of fall relapsing remitting multiple sclerosis, peripheral neuropathy that presented emergency department on 03/26/2020 for headache. She has history of migraine but she said that this feels different than usual headache. She presented with left sided headache and described it as "feeling on fire" over the left side and pressure over the left eye which she feels it is new. She has blurry vision mostly left eye. She is complaining of pulsating sound out of both ears and blurry vision out of both ears for at least 6 month and headache. * Cephalgia due to Idiopathic intracranial hypertension (Pseudotumor cerebri). I feel the patient history of and physical exam seems idiopathic intracranial hypertension especially with elevated opening pressure. She did present with the somewhat elevated CRP that went down but ESR was predominantly normal. After a review of literature, there is case where the patient presented with similar presentation and it could've been sarcoidosis. Also other vasculitis can cannot be ruled out. Giant cell arteritis is less likely especially with normal ESR but cannot rule it out. * Intractable headache likely due to above * History of Migraine * History of for relapsing remitting multiple sclerosis---no new relapse * Reported mild cognitive impairment * History of peripheral neuropathy * Chronic pain and occipital neuralgia * History of fibromyalgia * Polypharmacy * Reported history of restless leg syndrome * History of hypertension * Morbid obesity * History of COPD * History of osteoporosis * Obesity with possible obstructive sleep apnea. * History of uterine cancer status post surgery * Chronic tobacco use Plan: * Lumbar Puncture 03/27/20: Opening pressure was 37 cm of water and the closing pressure was 31 cm of water. 14 mL were removed. * CSF (03/27/20): clear, colorless, red blood cell was 195, total nucleated cells 0, glucose is 70, protein 44 (normal). CSF culture: No polymorphonuclear leukocytes and no organism.Pending oligoclonal band as well as Anant from CSF. * CTA of the head and neck (03/26/20): Negative CT of the head and neck. * CT brain/CTV (03/29/20): No evidence to suggest dural venous sinus thrombosis. * MRI Brain w/ and w/o (01/31/20): At that time was done to rule out MS exacerbation. Was reported as matter lesion as above in the chioma and in the centrum semiovale bilaterally around the lateral ventricles. White matter disease and appear improved compared to the previous exam of breast 11/24/2018 with decreased intensity of the pontine signal and also decrease in size and number of periventricular white matter lesion. * I'll repeat the MRI the brain with and without again. * Continue Acetazolamide 500mg 1 tablet bid. * Patient was counseled on weight loss. * Because the patient continues to have symptoms will repeat Lumbar puncture today and recommend to remove maximum of 22-24cc of fluid or less if closing pressure is 22-25cm of water. Anesthesia was reconsulted and were informed. * It was performed by the anestheologist and opening presssure was 21cm water and closing pressure was 16 cm of water but no documentation of how much fluid was taken out. * CASEY is negative. Patria 1 antibody is negative. * CANCA is less than the 1:20 * ESR is 2 and a repeat ESR is 4. * CRP is on initial presentation was 27.4 which I think was reactive and the repeated was 2.0 which was done on 03/27/2020 but again 27.7 on 03/28/20. With the patient's clinical history as well as the lab of the ESR, I highly doubt the patient has the giant cell arteritis. * Kimball virus PCR on 03/28/2020 is nondetected. * Vascular surgeon was consulted and they're in agreement that the procedure was not necessary and therefore that was not done. * I will repeat ESR and CRP. I ordered ANANT serum level, CK level. I ordered CT chest to rule out sarcoidosis. * I also recommend pursuing with temporal artery biopsy to rule it out. * I will start the patient on prednisone 40mg daily. * Recommend consulting Ophthalmology as inpatient if available. * I recommend an ENT consult regarding her ringing in the ear and hearing loss that's is a chronic issue according to the patient. If cannot be done then recommend as an outpatient. * I believe the patient is on polypharmacy and she is being overmedicated by her outpatient neurologist. Fioricets, NSAIDs and opioids on a chronic basis can cause medication over use headache. * For the restless leg syndrome and the patient is on Requip 0.25 mg 2 times a day, mild cognitive impairment that she is on Namenda 10 mg twice a day, fi bromyalgia she is on 1200 mg 3 times a day prescribed by her primary neurologist * Again I believe that her gabapentin 1200 mg 3 times a day is a high dose and she should be tapered down slightly. * I recommended the patient gets a neuropsych evaluation as an outpatient to delineate the patient's cognitive impairment. * Regarding the patient obesity with the possible obstructive sleep apnea I recommend the patient to get a sleep study as an outpatient. She needs to follow-up with a index clerk. * Upon discharge the patient needs to follow-up with a neurologist as outpatient within 1-2 weeks. * Plan was discussed with the patient as well as the primary team. The plan was discussed with the primary team and the patient's nurse. There is no neurology service over the weekend. Please Perfect serve me if needed. Jayden Javier M.D. Neuro-hospitalist Time with Patient: Greater than 30
--- NOTE | 2020-03-30 15:57 | P.PN ---
Progress Note - Text Progress Note Date: 03/30/20 (4485) [id number] for lumbar puncture. Ordered for headache and vision changes. Coagulopathies: Coagulation studies normal. Heparin subcu greater than 4 hours. Consent obtained and confirmed telephone consent per daughter as patient has altered mental status. Timeout performed Sterile protocol was used throughout procedure. L3 4 was identified and patient sitting off edge of bed. Chlorhexidine 2 was used to clean the patient's back. Lidocaine 1% 2 mL was used as local and was infiltrated. Spinal needle 20- gauge 3-1/2 inches was used in one attempt. CSF was obtained. Patient was then laid on the right side. Opening pressure 21 cm of water. No heme. Specimens collected 4-2 mL each. Closing pressure 16 cm water. Needle was withdrawn and Band-Aid applied. Patient tolerated procedure well without complication. Stable for transfer to floor.
[2020-03-30] MEDS: predniSONE 20 MG TAB PO SCH (16:02)
[2020-03-30 17:29] LABS: C Reactive Protein 25.5 mg/L (<10.0)
--- NOTE | 2020-03-30 17:29 | P.PN ---
Subjective Progress Note Date: 03/30/20 HISTORY OF PRESENT ILLNESS This is a 54 year old female patient of Dr. Tabares and Dr. Ramirez with a past medical history of relapsing remitting multiple sclerosis, hypertension and hy pertensive cardiovascular disease with left ventricular hypertrophy, history of GERD, multiple sclerosis, COPD, asthma, history of osteoporosis, uterine cancer status post surgery, chronic hypoxic respiratory failure on home O2 at 2 L nasal cannula, tobacco use. She has had multiple admissions for acute exacerbation of her multiple sclerosis. Patient complains of headache that felt like her head was on fire that started on Thursday. It was in the left zoroastrianism area. Worsen over the weekend and on Thursday was involving whole left side of her head area she has generalized tenderness to entire scalp area. She also states that she has been placing eardrops in her left ear and occasionally to her right. She denies having any fever or chills. She presented to [facility] afebrile, heart rate 98, blood pressure 138/91, pulse ox 95%. WBC 12.0, hemoglobin 15.4. CO2 39, creatinine 0.48. Blood sugar 123. Liver function tests normal. C-reactive protein 27.4, sed rate normal. Lactic acid 1.2. EKG is a sinus rhythm with no acute ST changes. CAT scan of the brain did not show any acute intracranial pathology. Patient was started on Solu-Medrol 250 mg every 6 hours and [facility]. Subsequently, Solu- Medrol has been discontinued and patient started on Tegretol for trigeminal neuralgia. Consult with neurology in place and vascular surgeon for possible temporal arteritis. Sed rate is noted to be normal. 03/27: Patient was evaluated by neurology, Dr. Javier, and unsure of type of headache. Plan to rule out pseudotumor cerebri. He has recommended a lumbar puncture with opening pressure and at the time of this evaluation, patient is refusing but later changed her mind. CT angiogram of the neck and brain were negative. He has also recommended ENT consult which we will plan to do as an outpatient. There is no new relapse of MS. Vascular surgery does not plan for biopsy as temporal arteritis ruled out. Dr. Javier has also ruled out trigeminal neuralgia. Patient continues to have headache and significant tenderness to p alpation. When patient evaluated by anesthesia for LP, we will also has an evaluation for occipital neuralgia. Patient states that she would like an antibiotic as she thinks this would help her headache. At this time, antibiotics are denied. Patient does not show signs of sinusitis. Patient has been afebrile, heart rate 94, blood pressure 140/81, pulse ox 93% on 2 L nasal cannula. Repeat sed rate was 4 and C-reactive protein 2. Blood cultures no growth after 24 hours. 03/28: underwent lumbar puncture yesterday with opening pressure of 37 cm of water and closing pressure of 31 cm of water with removal of 14 ML's of cerebrospinal fluid. Dr. Javier started the patient on Diamox 500 mg 1 and 250 mg twice daily for idiopathic intracranial hypertension. this morning, patient had a fever of 101.8, heart rate 122, blood pressure 145/71, pulse ox 93% on 2 L nasal cannula. Blood culture, urinalysis and lab work ordered. At the time of evaluation, patient continued to have significant headache that did not seem to be improved following LP and drainage of some spinal fluid and initiation of Diamox. Later in the day, patient was found unresponsive with oxygen on at 2 L which is her baseline and pulse ox of 43%, heart rate in 115, respiratory rate 8. Patient was given Narcan with reversal of symptoms and was subsequently pulse oxing 98% on 2 L. Patient had received Dilaudid on top of her home medications this morning approximate one hour prior to this episode of unresp onsiveness. IV Dilaudid will be discontinued. Tegretol also discontinued. Case was discussed with Dr. Javier. 03/29: Patient still complains of severe burning headache left side, discussed with Dr. Javier neurology, he has increased he is Diamox 500 mg twice a day, with plan for repeat LP in the morning, and might need to be transferred to tertiary center, for lumboperitoneal shunt. Patient denies there being any diplopia, no weakness upper extremity lower extremity, and no nausea. 03/30, patient has left-sided hemicrania, feels like it is on fire, however this has diminished in intensity, she has this scheduled lumbar puncture today, and requested to be premedicated with Ativan, there was no episode that they had to give her Narcan encoded her however this is with Ativan along with Dilaudid, Dilaudid as been discontinued, Dr. Javier is concerned about the low-grade fever for which an MRI of the brain is done to evaluate brain sarcoid, he has an extensive lab to include CASEY that is negative, c-ANCA that is less than once 20 titer, sed rate is 2, with CRP that is slightly elevated, [place] PCR is negative, he recommended vascular consult to rule out giant cell arteritis, for tissue biopsy, also needed a follow-up with ophthalmology, to evaluate glaucoma as well as the pseudotumor cerebri, will set this contrast the constant use of the Fioricet, which he recommended would be used on a when necessary basis only, repeat LP was 21 cm, and closing pressure of 16 cm, and this is to his liking. Patient continues on acetazolamide 500 mg twice a day. Sleep hygiene again was discussed with the patient, and will need an outpatient sleep study, he also recommended the gabapentin to be titrated down slowly, currently at 1200 mg 3 times a day, which would start tapering on 1000 mg 3 times a day for the next few days, and will be discharged on 800 mg 3 times a day thereafter. We will evaluate the patient for occipital neuralgia in the morning, possible needing occipital nerve block, she started on prednisone 40 mg, patient was given IV Solu-Medrol earlier today possible brain sarcoid against temporal arteritis REVIEW OF SYSTEMS Constitutional: No fever, no chills, no night sweats. No weight change. Denies weakness, fatigue or lethargy. No daytime sleepiness. EENT: Reports headache. No blurred vision or double vision, no loss of vision. Reports ear discomfort, no dizziness. No nasal drainage or congestion. No epistaxis. No sore throat. Lungs: No shortness of breath, cough, no sputum production. No wheezing. Cardiovascular: No chest pain, no lower extremity edema. No palpitations. No paroxysmal nocturnal dyspnea. No orthopnea. No lightheadedness or dizziness. No syncopal episodes. Abdominal: No abdominal pain. No nausea, vomiting. No diarrhea. No constipation. No bloody or tarry stools.. No loss of appetite. Genitourinary: No dysuria, increased frequency, urgency. No urinary retention. Musculoskeletal: No myalgias. Reports muscle weakness, no gait dysfunction, no frequent falls. No back pain. No neck pain. Integumentary: No wounds, no lesions. No rash or pruritus. No unusual bruising. No change in hair or nails. Neurologic: No aphasia. No facial droop. No change in mentation. No head injury. No headache. No paralysis. No paresthesia. Psychiatric: No depression. No anxiety. No mood swings. Endocrine: No abnormal blood sugars. No weight change. No excessive sweating or thirst. No cold intolerance. Objective - Vital Signs Vital signs: Vital Signs Temp 97.3 F L 03/30/20 12:07 Pulse 83 03/30/20 12:07 Resp 18 03/30/20 12:07 BP 110/75 03/30/20 12:07 Pulse Ox 93 L 03/30/20 12:07 Intake & Output 03/29/20 03/30/20 03/30/20 18:59 06:59 18:59 Intake Total 360 Balance 360 Intake: Oral 360 Other: Voiding Method Toilet Toilet Toilet # Voids 4 - Constitutional General appearance: Present: cooperative, no acute distress - EENT Eyes: Present: EOMI, PERRLA - Neck Neck: Present: normal ROM - Respiratory Respiratory: bilateral: CTA - Cardiovascular Rhythm: regular Heart sounds: normal: S1, S2 Abnormal Heart Sounds: Absent: systolic murmur, diastolic murmur, rub, S3 Gallop, S4 Gallop, click, other - Gastrointestinal General gastrointestinal: Present: normal bowel sounds, soft - Integumentary Integumentary: Present: normal - Neurologic Neurologic: Present: CNII-XII intact - Musculoskeletal Musculoskeletal: Present: strength equal bilaterally - Labs CBC & Chem 7: 03/28/20 08:41 03/28/20 08:41 Labs: Microbiology - Last 24 Hours (Table) 03/28/20 08:41 Blood Culture - Preliminary Blood No Growth after 48 hours 03/26/20 04:57 Blood Culture - Preliminary Blood No Growth after 96 hours 03/27/20 14:45 CSF Gram Stain - Preliminary Cerebral Spinal Fluid CSF Culture - Preliminary Assessment and Plan Plan: ASSESSMENT AND PLAN 1. Headache due to Idiopathic intracranial hypertension (Pseudotumor cerebri). Consult with neurology and vascular surgery. Patient is status post LP with drainage of 14 ML's of 0 spinal fluid, started on Diamox 500 mg 1 followed by 250 mg twice daily increased to 500 twice a day as of March 29. Dilaudid discontinued. Patient is aware of this discontinuation, neurology has recommended repeating an LP on March 30, with possible referral to tertiary for lumbo peritoneal shunt. Patient ophthalmology consultation, for possible fenestration procedure, and full eval for the left-sided hemicrania. Outpatient sleep study, with pulmonary consultation is now patient, Dr. Kwan has been consulted for the headache, although the sed rate is normal, he believes that a tissue diagnosis might help for temporal arteritis secondary to recurrent fever and headache. I'll eval in the next 24 hours with focus on evaluating occipital neuralgia as well, might need occipital nerve block from neurology to assist with the headache 2. Febrile illness with unclear etiology. Urinalysis and urine culture, blood culture ordered. Inflammatory markers and repeat lab work ordered. 3. Unresponsive episode, responded to Narcan. Episode most likely due to IV Dilaudid on top of home medications. Neurology makes mention in all notes regarding polypharmacy as a problem. Dilaudid will be discontinued. 4. No MS exacerbation. Solu-Medrol will be discontinued for now, neurology consult. 5 History of relapsing remitting multiple sclerosis. 6. Chronic pain and occipital neuralgia under the care of Dr. Ramirez. Continue gabapentin 1200mg 3 times daily, Percocet one 3 times daily as needed, Fioricet as needed. 7. Hypertension and hypertensive cardiovascular disease. Hydrochlorothiazide 25 mg daily, verapamil 120 mg orally once every day. 8. Obesity with possible obstructive sleep apnea and obesity hypoventilation syndrome. 9. Mild intermittent asthma and COPD. Continue albuterol inhaler every 6 hours as needed, Symbicort twice daily, Singulair 10 mg daily, Flonase as needed. 10. Fibromyalgia. Continue gabapentin 1200 mg orally 3 times every day. 11. Generalized anxiety disorder. Continue Ativan 1 mg every 8 hours as needed. 12. Recurrent depression. Continue Paxil 40 mg daily. 13. Chronic tobacco use and dependence. Smoking cessation and counseling an increased risk of CAD, CVA, and malignancy. 14. Mild cognitive impairment. Continue patient on Namenda 10 mg orally twice every day. 15. Restless leg syndrome. Continue Requip 0.25 mg 2 times daily 16. DVT prophylaxis. Heparin subcu. 17. GERD and GI prophylaxis. Continue with Protonix 40 mg orally twice every day. CODE STATUS: Full code DISCHARGE PLAN
[2020-03-30] MEDS: GABAPENTIN 100 MG CAP PO SCH ×2 (18:03→23:07)
--- NOTE | 2020-03-30 18:42 | MR ---
EXAMINATION TYPE: MR brain wo/w con DATE OF EXAM: 03/30/2020 COMPARISON: 01/31/2020 HISTORY: intractable headaches CONTRAST: Standard multiplanar, multisequence MRI departmental protocol utilizing 11 mL intravenous Gadavist ga dolinium contrast. There is some cerebral atrophy. There is no mass effect nor midline shift. There is no sign of intrac ranial hemorrhage. Corpus callosum is intact. Diffusion images show no evidence of an acute cortical infarct. There is a 1.5 cm irregular area of increased signal on the FLAIR and T2 images within the c entral chioma. Unchanged. There are multiple small foci of abnormal increased signal on the T2 and FLAI R images in the periventricular white matter that measure up to 5 mm. Total number is partially 20. T hese are more noticeable in the parietal lobes. The cerebellum is intact. The contrast images show no pathologic enhancement. There is normal enhancement of the venous sinuses. Sella turcica appears nor mal. IMPRESSION: Mild cerebral atrophy. White matter multiple high signal foci not significantly different than recent exam and could relate to chronic small vessel ischemia or demyelinating disease. There is also ponti ne abnormal signal unchanged and could relate to demyelinating disease.
--- NOTE | 2020-03-30 18:51 | CT ---
EXAMINATION TYPE: CT chest wo/w con DATE OF EXAM: 03/30/2020 COMPARISON: 08/08/2019 HISTORY: Rule out sarcoidosis. Short of breath. Chest pain CT DLP: 1080.20 mGycm Automated exposure control for dose reduction was used. CONTRAST: Performed with IV Contrast, patient injected with 100 mL of Isovue 300. There is mild subsegmental atelectasis at the posterior lung bases. There is no pleural effusion. The re is no evidence of a pulmonary mass. Heart is slightly enlarged. There is no mediastinal adenopathy . There are no hilar masses. Thoracic aorta is intact. There is no aneurysm or dissection. The ascend ing aorta measures 3.3 cm. I see no filling defect in the pulmonary arteries. There is 2 cm cyst in t he left lobe of the liver. The bony thorax is intact. Sternum is intact. IMPRESSION: Mild subsegmental atelectasis in the lower lung schwarz. No significant interstitial lung disease to s uggest sarcoidosis. No suspicious pulmonary mass. Lung disease improved compared to old exam. Mild ca rdiomegaly.
[2020-03-30] MEDS: BUTALB/APAP/CAFF 50-325-40MG TAB PO PRN (23:14)
[2020-03-31] MEDS: SODIUM CHLORIDE 0.9% 1,000 ML IV SCH ×3 (04:36→16:13)
[2020-03-31] MEDS: MULTIVITAMINS, THERA 1 EACH TAB PO SCH (07:23)
[2020-03-31] MEDS: oxyCODONE-APAP 10-325MG 1 EACH TAB PO SCH ×3 (07:23→22:11)
[2020-03-31] MEDS: GABAPENTIN 100 MG CAP PO SCH ×3 (07:23→22:10)
[2020-03-31] MEDS: GABAPENTIN 400 MG CAP PO SCH ×3 (07:23→22:10)
[2020-03-31] MEDS: PANTOPRAZOLE 40 MG TABLET PO SCH ×2 (07:25→22:10)
[2020-03-31] MEDS: predniSONE 20 MG TAB PO SCH (07:25)
[2020-03-31] MEDS: MONTELUKAST 10 MG TAB PO SCH (07:25)
[2020-03-31] MEDS: FOLIC ACID 1 MG TAB PO SCH (07:26)
[2020-03-31] MEDS: NICOTINE 21MG/24HR PATCH TRANSDERM SCH (07:26)
[2020-03-31] MEDS: busPIRone HCl 10 MG TAB PO SCH ×3 (07:27→22:10)
[2020-03-31] MEDS: PARoxetine 20 MG TAB PO SCH (07:28)
[2020-03-31] MEDS: methocarbamoL 750 MG TAB PO SCH ×3 (07:28→22:10)
[2020-03-31] MEDS: VERAPAMIL SR 120 MG TABLET.ER PO SCH (07:29)
[2020-03-31] MEDS: acetaZOLAMIDE 250 MG TAB PO SCH ×2 (07:30→22:10)
[2020-03-31] MEDS: ASPIRIN 81 MG PO SCH (07:30)
[2020-03-31] MEDS: hydroCHLOROthiazide 25 MG TAB PO SCH (07:31)
[2020-03-31] MEDS: NON FORMULARY DRUG (Zinc Gluconate 50 MG Tab) PO SCH (07:31)
[2020-03-31] MEDS: MEMANTINE 10 MG TAB PO SCH ×2 (07:31→22:11)
[2020-03-31] MEDS: LORazepam 1 MG TAB PO SCH ×2 (07:33→15:10)
[2020-03-31] MEDS: HEPARIN SODIUM,PORCINE 5,000 UNIT/ML 1 ML VIAL SQ SCH ×2 (07:37→22:11)
[2020-03-31] MEDS: BUTALB/APAP/CAFF 50-325-40MG TAB PO PRN ×2 (07:37→15:11)
[2020-03-31] MEDS: IPRATROPIUM-ALBUTEROL 3 ML NEB INHALATION PRN ×2 (09:27→20:55)
[2020-03-31] MEDS: SYMBICORT 160-4.5 MCG INHALER INHALATION SCH ×2 (09:27→21:08)
[2020-03-31] MEDS ORDERED: NICOTINE 21MG/24HR PATCH TRANSDERM ONE (11:30)
--- NOTE | 2020-03-31 19:24 | P.PN ---
Subjective Progress Note Date: 03/31/20 HISTORY OF PRESENT ILLNESS This is a 54 year old female patient of Dr. Tabares and Dr. Ramirez with a past medical history of relapsing remitting multiple sclerosis, hypertension and hy pertensive cardiovascular disease with left ventricular hypertrophy, history of GERD, multiple sclerosis, COPD, asthma, history of osteoporosis, uterine cancer status post surgery, chronic hypoxic respiratory failure on home O2 at 2 L nasal cannula, tobacco use. She has had multiple admissions for acute exacerbation of her multiple sclerosis. Patient complains of headache that felt like her head was on fire that started on Thursday. It was in the left jain area. Worsen over the weekend and on Thursday was involving whole left side of her head area she has generalized tenderness to entire scalp area. She also states that she has been placing eardrops in her left ear and occasionally to her right. She denies having any fever or chills. She presented to [facility] emergency center afebrile, heart rate 98, blood pressure 138/91, pulse ox 95%. WBC 12.0, hemoglobin 15.4. CO2 39, creatinine 0.48. Blood sugar 123. Liver function tests normal. C-reactive protein 27.4, sed rate normal. Lactic acid 1.2. EKG is a sinus rhythm with no acute ST changes. CAT scan of the brain did not show any acute intracranial pathology. Patient was started on Solu-Medrol 250 mg every 6 hours and [facility]. Subsequently, Solu- Medrol has been discontinued and patient started on Tegretol for trigeminal neuralgia. Consult with neurology in place and vascular surgeon for possible temporal arteritis. Sed rate is noted to be normal. 03/27: Patient was evaluated by neurology, Dr. Javier, and unsure of type of headache. Plan to rule out pseudotumor cerebri. He has recommended a lumbar puncture with opening pressure and at the time of this evaluation, patient is refusing but later changed her mind. CT angiogram of the neck and brain were negative. He has also recommended ENT consult which we will plan to do as an outpatient. There is no new relapse of MS. Vascular surgery does not plan for biopsy as temporal arteritis ruled out. Dr. Javier has also ruled out trigeminal neuralgia. Patient continues to have headache and significant tenderness to p alpation. When patient evaluated by anesthesia for LP, we will also has an evaluation for occipital neuralgia. Patient states that she would like an antibiotic as she thinks this would help her headache. At this time, antibiotics are denied. Patient does not show signs of sinusitis. Patient has been afebrile, heart rate 94, blood pressure 140/81, pulse ox 93% on 2 L nasal cannula. Repeat sed rate was 4 and C-reactive protein 2. Blood cultures no growth after 24 hours. 03/28: underwent lumbar puncture yesterday with opening pressure of 37 cm of water and closing pressure of 31 cm of water with removal of 14 ML's of cerebrospinal fluid. Dr. Javier started the patient on Diamox 500 mg 1 and 250 mg twice daily for idiopathic intracranial hypertension. this morning, patient had a fever of 101.8, heart rate 122, blood pressure 145/71, pulse ox 93% on 2 L nasal cannula. Blood culture, urinalysis and lab work ordered. At the time of evaluation, patient continued to have significant headache that did not seem to be improved following LP and drainage of some spinal fluid and initiation of Diamox. Later in the day, patient was found unresponsive with oxygen on at 2 L which is her baseline and pulse ox of 43%, heart rate in 115, respiratory rate 8. Patient was given Narcan with reversal of symptoms and was subsequently pulse oxing 98% on 2 L. Patient had received Dilaudid on top of her home medications this morning approximate one hour prior to this episode of unresp onsiveness. IV Dilaudid will be discontinued. Tegretol also discontinued. Case was discussed with Dr. Javier. 03/29: Patient still complains of severe burning headache left side, discussed with Dr. Javier neurology, he has increased he is Diamox 500 mg twice a day, with plan for repeat LP in the morning, and might need to be transferred to tertiary center, for lumboperitoneal shunt. Patient denies there being any diplopia, no weakness upper extremity lower extremity, and no nausea. 03/30, patient has left-sided hemicrania, feels like it is on fire, however this has diminished in intensity, she has this scheduled lumbar puncture today, and requested to be premedicated with Ativan, there was no episode that they had to give her Narcan encoded her however this is with Ativan along with Dilaudid, Dilaudid as been discontinued, Dr. Javier is concerned about the low-grade fever for which an MRI of the brain is done to evaluate brain sarcoid, he has an extensive lab to include CASEY that is negative, c-ANCA that is less than once 20 titer, sed rate is 2, with CRP that is slightly elevated, [place] PCR is negative, he recommended vascular consult to rule out giant cell arteritis, for tissue biopsy, also needed a follow-up with ophthalmology, to evaluate glaucoma as well as the pseudotumor cerebri, will set this contrast the constant use of the Fioricet, which he recommended would be used on a when necessary basis only, repeat LP was 21 cm, and closing pressure of 16 cm, and this is to his liking. Patient continues on acetazolamide 500 mg twice a day. Sleep hygiene again was discussed with the patient, and will need an outpatient sleep study, he also recommended the gabapentin to be titrated down slowly, currently at 1200 mg 3 times a day, which would start tapering on 1000 mg 3 times a day for the next few days, and will be discharged on 800 mg 3 times a day thereafter. We will evaluate the patient for occipital neuralgia in the morning, possible needing occipital nerve block, she started on prednisone 40 mg, patient was given IV Solu-Medrol earlier today possible brain sarcoid against temporal arteritis 03/31: still complains of left hemicrania, no nausea no vomiting, patient denies any diplopia, or painful vision. Patient inquiring again on Dilaudid and Ativan, however this regimen had caused her to have A team manage her loss of consciousness. She still has hemicrania however fever has resolved, we cannot do the Naprosyn test for the fever of unknown origin, CAT scan test failed to reveal any focal traits consistent with sarcoid, MRI of the brain shows similar lesions for demyelination, against chronic small vessel ischemia, multiple high signal foci not different from recent exam. Also no enhancement of venous sinuses, there is a 1.5 cm irregular area of increased signal on the flared and T2 images within the central chioma, could be related to demyelinating disease. She pretty much have full workup for the fever for unknown origin, we'll going to obtain Lyme testing with reflex, sed rate is normal with CRP that is slightly elevated, photographer still in the left hemicrania region including the TMJ bone area, cannot rule out dental abscess , she does have occipital neuralgia on examination left-sided, going to consult anesthesia for occipital neck block left side April 01: Patient is not asking for any narcotic, still with hemicrania, left side and left eye pain,'s MRI failed to reveal any significant change except for pre-existing demyelination, no sinusitis on MRI, still with left occipital pain, awaiting anesthesia for occipital nerve block tomorrow. No narcotics offered today, with decreasing gabapentin to 800 mg 3 times a day, no fevers however patient is on prednisone. auto immune immune against malignancy rather than infection is in the differential, unable to do naprosyn test as above. has anaphylaxis aspirin REVIEW OF SYSTEMS Constitutional: No fever, no chills, no night sweats. No weight change. Denies weakness, fatigue or lethargy. No daytime sleepiness. EENT: Reports headache. No blurred vision or double vision, no loss of vision. Reports ear discomfort, no dizziness. No nasal drainage or congestion. No epistaxis. No sore throat. Lungs: No shortness of breath, cough, no sputum production. No wheezing. Cardiovascular: No chest pain, no lower extremity edema. No palpitations. No paroxysmal nocturnal dyspnea. No orthopnea. No lightheadedness or dizziness. No syncopal episodes. Abdominal: No abdominal pain. No nausea, vomiting. No diarrhea. No constipa tion. No bloody or tarry stools.. No loss of appetite. Genitourinary: No dysuria, increased frequency, urgency. No urinary retention. Musculoskeletal: No myalgias. Reports muscle weakness, no gait dysfunction, no frequent falls. No back pain. No neck pain. Integumentary: No wounds, no lesions. No rash or pruritus. No unusual bruising. No change in hair or nails. Neurologic: No aphasia. No facial droop. No change in mentation. No head injury. No headache. No paralysis. No paresthesia. Psychiatric: No depression. No anxiety. No mood swings. Endocrine: No abnormal blood sugars. No weight change. No excessive sweating or thirst. No cold intolerance. Objective - Vital Signs Vital signs: Vital Signs Temp 97.5 F L 03/31/20 13:00 Pulse 87 03/31/20 13:00 Resp 16 03/31/20 13:00 BP 115/80 03/31/20 13:00 Pulse Ox 96 03/31/20 13:00 Intake & Output 03/31/20 03/31/20 04/01/20 06:59 18:59 06:59 Intake Total 240 3172 236 Balance 240 3172 236 Intake: Oral 240 3172 236 Other: Voiding Method Toilet Toilet # Voids 3 5 # Bowel Movements 0 0 - Constitutional General appearance: Present: cooperative, no acute distress - EENT Eyes: Present: PERRLA ENT: Present: NA/AT, normal oropharynx - Respiratory Respiratory: bilateral: CTA, negative: diminished, dullness - Cardiovascular Rhythm: regular Heart sounds: normal: S1, S2 Abnormal Heart Sounds: Absent: systolic murmur, diastolic murmur, rub, S3 Gallop, S4 Gallop, click, other - Gastrointestinal General gastrointestinal: Present: normal bowel sounds, soft - Integumentary Integumentary: Present: normal - Neurologic Neurologic: Present: CNII-XII intact - Musculoskeletal Musculoskeletal: Present: gait normal, strength equal bilaterally (Limp) - Labs CBC & Chem 7: 03/28/20 08:41 03/28/20 08:41 Labs: Microbiology - Last 24 Hours (Table) 03/27/20 14:45 CSF Gram Stain - Final Cerebral Spinal Fluid CSF Culture - Final 03/28/20 08:41 Blood Culture - Preliminary Blood No Growth after 72 hours 03/26/20 04:57 Blood Culture - Preliminary Blood No Growth after 120 hours Assessment and Plan Plan: ASSESSMENT AND PLAN 1. Headache due to Idiopathic intracranial hypertension (Pseudotumor cerebri). Consult with neurology and vascular surgery. Patient is status post LP with drainage of 14 ML's of 0 spinal fluid, started on Diamox 500 mg 1 followed by 250 mg twice daily increased to 500 twice a day as of March 29. Dilaudid discontinued. Patient is aware of this discontinuation, neurology has recommended repeating an LP on March 30, with possible referral to tertiary for lumbo peritoneal shunt. Patient ophthalmology consultation, for possible fenestration procedure, and full eval for the left-sided hemicrania. Outpatient sleep study, with pulmonary consultation is now patient, Dr. Kwan has been consulted for the headache, although the sed rate is normal, he believes that a tissue diagnosis might help for temporal arteritis secondary to recurrent fever and headache. I'll eval in the next 24 hours with focus on evaluating occipital neuralgia as well, might need occipital nerve block from neurology to assist with the headache. 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 Rushing 2. Left hemicrania chronic was likely multifactorial, exam shows tenderness in the occipital nerve root, we will going to consult anesthesia for occipital nerve block left side for April 01 2. Febrile illness with unclear etiology. Urinalysis and urine culture, blood culture ordered. Inflammatory markers and repeat lab work ordered. 3. Unresponsive episode, responded to Narcan. Episode most likely due to IV Dilaudid on top of home medications. Neurology makes mention in all notes regarding polypharmacy as a problem. Dilaudid will be discontinued. We decreased slowly the gabapentin currently at 1000 and milligrams 3 times a day, and plan for discharge to 800 mg 3 times a day 4. No MS exacerbation. Solu-Medrol will be discontinued for now, neurology consult. 5 History of relapsing remitting multiple sclerosis. 6. Chronic pain and occipital neuralgia under the care of Dr. Ramirez. Continue gabapentin 1200mg 3 times daily decreased gabapentin to 1000 mg 3 times a day with plan to decrease it at 800 mg 3 times a day, Percocet one 3 times daily as needed, Fioricet as needed. 7. Hypertension and hypertensive cardiovascular disease. Hydrochlorothiazide 25 mg daily, verapamil 120 mg orally once every day. 8. Obesity with possible obstructive sleep apnea and obesity hypoventilation syndrome. 9. Mild intermittent asthma and COPD. Continue albuterol inhaler every 6 hours as needed, Symbicort twice daily, Singulair 10 mg daily, Flonase as needed. 10. Fibromyalgia. Continue gabapentin 1200 mg orally 3 times every day. 11. Generalized anxiety disorder. Continue Ativan 1 mg every 8 hours as needed. 12. Recurrent depression. Continue Paxil 40 mg daily. 13. Chronic tobacco use and dependence. Smoking cessation and counseling an increased risk of CAD, CVA, and malignancy. 14. Mild cognitive impairment. Continue patient on Namenda 10 mg orally twice every day. 15. Restless leg syndrome. Continue Requip 0.25 mg 2 times daily 16. DVT prophylaxis. Heparin subcu. 17. GERD and GI prophylaxis. Continue with Protonix 40 mg orally twice every day. CODE STATUS: Full code DISCHARGE PLAN
[2020-03-31] MEDS: MELATONIN 5 MG TABLET PO SCH (22:10)
[2020-04-01] MEDS: SODIUM CHLORIDE 0.9% 1,000 ML IV SCH ×3 (05:06→22:02)
[2020-04-01] MEDS: methocarbamoL 750 MG TAB PO SCH ×3 (07:11→22:00)
[2020-04-01] MEDS: NICOTINE 21MG/24HR PATCH TRANSDERM SCH (07:11)
[2020-04-01] MEDS: acetaZOLAMIDE 250 MG TAB PO SCH ×2 (07:11→22:00)
[2020-04-01] MEDS: HEPARIN SODIUM,PORCINE 5,000 UNIT/ML 1 ML VIAL SQ SCH ×2 (07:12→21:59)
[2020-04-01] MEDS: MEMANTINE 10 MG TAB PO SCH ×2 (07:12→22:00)
[2020-04-01] MEDS: busPIRone HCl 10 MG TAB PO SCH ×3 (07:13→22:00)
[2020-04-01] MEDS: BUTALB/APAP/CAFF 50-325-40MG TAB PO PRN ×3 (07:13→22:06)
[2020-04-01] MEDS: GABAPENTIN 400 MG CAP PO SCH ×3 (07:13→21:59)
[2020-04-01] MEDS: GABAPENTIN 100 MG CAP PO SCH ×3 (07:14→21:59)
[2020-04-01] MEDS: FOLIC ACID 1 MG TAB PO SCH (07:14)
[2020-04-01] MEDS: ASPIRIN 81 MG PO SCH (07:14)
[2020-04-01] MEDS: MONTELUKAST 10 MG TAB PO SCH (07:14)
[2020-04-01] MEDS: predniSONE 20 MG TAB PO SCH (07:14)
[2020-04-01] MEDS: LORazepam 1 MG TAB PO SCH ×3 (07:15→22:11)
[2020-04-01] MEDS: PARoxetine 20 MG TAB PO SCH (07:15)
[2020-04-01] MEDS: VERAPAMIL SR 120 MG TABLET.ER PO SCH (07:16)
[2020-04-01] MEDS: oxyCODONE-APAP 10-325MG 1 EACH TAB PO SCH ×3 (07:16→22:01)
[2020-04-01] MEDS: PANTOPRAZOLE 40 MG TABLET PO SCH ×2 (07:16→21:58)
[2020-04-01] MEDS: MULTIVITAMINS, THERA 1 EACH TAB PO SCH (07:16)
[2020-04-01] MEDS: hydroCHLOROthiazide 25 MG TAB PO SCH (07:17)
[2020-04-01] MEDS: NON FORMULARY DRUG (Zinc Gluconate 50 MG Tab) PO SCH (07:17)
[2020-04-01] MEDS: SYMBICORT 160-4.5 MCG INHALER INHALATION SCH ×2 (08:46→21:28)
[2020-04-01] MEDS: IPRATROPIUM-ALBUTEROL 3 ML NEB INHALATION PRN ×2 (08:46→21:28)
[2020-04-01] MEDS: MELATONIN 5 MG TABLET PO SCH (21:58)
[2020-04-02] MEDS: SYMBICORT 160-4.5 MCG INHALER INHALATION SCH ×2 (07:12→21:10)
[2020-04-02] MEDS: IPRATROPIUM-ALBUTEROL 3 ML NEB INHALATION PRN ×3 (07:12→21:10)
[2020-04-02] MEDS: LORazepam 1 MG TAB PO SCH ×3 (07:36→20:48)
--- NOTE | 2020-04-02 08:06 | P.DS ---
Providers Date of admission: 03/28/20 07:47 Expected date of discharge: 04/02/20 Attending physician: Erinn Beckett Consults: 03/26/20 05:52 Consult Physician Routine Consulting Provider: Jayden Javier Consult Reason/Comments: MS Do you want consulting provider notified?: Yes 03/26/20 07:46 Consult Physician Routine Consulting Provider: Zena Kwan Consult Reason/Comments: temporal artery bx Do you want consulting provider notified?: Yes 03/26/20 13:18 Consult to Anesthesia Routine Consulting Provider: Anesthesia,Services Consult Reason/Comments: headache. Please obtain opening and closing pressure. Occipital block. 03/29/20 15:07 Consult to Anesthesia Routine Consulting Provider: Anesthesia,Services Consult Reason/Comments: Lumbar puncture. Drain 22-24cc in total or less if closing pres 22-25 03/31/20 16:17 Consult Physician Routine Consulting Provider: Jakob Garcia Consult Reason/Comments: occipital nerve block left Do you want consulting provider notified?: Yes Primary care physician: Kilo Tabares [facility] Course: HISTORY OF PRESENT ILLNESS This is a 54 year old female patient of Dr. Tabares and Dr. Ramirez with a past medical history of relapsing remitting multiple sclerosis, hypertension and hypertensive cardiovascular disease with left ventricular hypertrophy, history of GERD, multiple sclerosis, COPD, asthma, history of osteoporosis, uterine cancer status post surgery, chronic hypoxic respiratory failure on home O2 at 2 L nasal cannula, tobacco use. She has had multiple admissions for acute exacer bation of her multiple sclerosis. Patient complains of headache that felt like her head was on fire that started on Thursday. It was in the left buddhist area. Worsen over the weekend and on Thursday was involving whole left side of her head area she has generalized tenderness to entire scalp area. She also states that she has been placing eardrops in her left ear and occasionally to her right. She denies having any fever or chills. She presented to [facility] emergency center afebrile, heart rate 98, blood pressure 138/91, pulse ox 95%. WBC 12.0, hemoglobin 15.4. CO2 39, creatinine 0.48. Blood sugar 123. Liver function tests normal. C-reactive protein 27.4, sed rate normal. Lactic acid 1.2. EKG is a sinus rhythm with no acute ST changes. CAT scan of the brain did not show any acute intracranial pathology. Patient was started on Solu-Medrol 250 mg every 6 hours and admitted to the [facility] floor. Subsequently, Solu-Medrol has been discontinued and patient started on Tegretol for trigeminal neuralgia. Consult with neurology in place and vascular surgeon for possible temporal arteritis. Sed rate is noted to be normal. 03/27: Patient was evaluated by neurology, Dr. Javier, and unsure of type of headache. Plan to rule out pseudotumor cerebri. He has recommended a lumbar puncture with opening pressure and at the time of this evaluation, patient is refusing but later changed her mind. CT angiogram of the neck and brain were negative. He has also recommended ENT consult which we will plan to do as an outpatient. There is no new relapse of MS. Vascular surgery does not plan for biopsy as temporal arteritis ruled out. Dr. Javier has also ruled out trigeminal neuralgia. Patient continues to have headache and significant tenderness to palpation. When patient evaluated by anesthesia for LP, we will also has an evaluation for occipital neuralgia. Patient states that she would like an antibiotic as she thinks this would help her headache. At this time, antibiotics are denied. Patient does not show signs of sinusitis. Patient has been afebrile, heart rate 94, blood pressure 140/81, pulse ox 93% on 2 L nasal cannula. Repeat sed rate was 4 and C-reactive protein 2. Blood cultures no growth after 24 hours. 03/28: underwent lumbar puncture yesterday with opening pressure of 37 cm of water and closing pressure of 31 cm of water with removal of 14 ML's of cerebrospinal fluid. Dr. Javier started the patient on Diamox 500 mg 1 and 250 mg twice daily for idiopathic intracranial hypertension. this morning, patient had a fever of 101.8, heart rate 122, blood pressure 145/71, pulse ox 93% on 2 L nasal cannula. Blood culture, urinalysis and lab work ordered. At the time of evaluation, patient continued to have significant headache that did not seem to be improved following LP and drainage of some spinal fluid and initiation of Diamox. Later in the day, patient was found unresponsive with oxygen on at 2 L which is her baseline and pulse ox of 43%, heart rate in 115, respiratory rate 8. Patient was given Narcan with reversal of symptoms and was subsequently pulse oxing 98% on 2 L. Patient had received Dilaudid on top of her home medications this morning approximate one hour prior to this episode of unresponsiveness. IV Dilaudid will be discontinued. Tegretol also discontinued. Case was discussed with Dr. Javier. 03/29: Patient still complains of severe burning headache left side, discussed with Dr. Javier neurology, he has increased he is Diamox 500 mg twice a day, with plan for repeat LP in the morning, and might need to be transferred to tertiary center, for lumboperitoneal shunt. Patient denies there being any diplopia, no weakness upper extremity lower extremity, and no nausea. 03/30, patient has left-sided hemicrania, feels like it is on fire, however this has diminished in intensity, she has this scheduled lumbar puncture today, and requested to be premedicated with Ativan, there was no episode that they had to give her Narcan encoded her however this is with Ativan along with Dilaudid, Dilaudid as been discontinued, Dr. Javier is concerned about the low-grade fever for which an MRI of the brain is done to evaluate brain sarcoid, he has an extensive lab to include CASEY that is negative, c-ANCA that is less than once 20 titer, sed rate is 2, with CRP that is slightly elevated, [place] PCR is negative, he recommended vascular consult to rule out giant cell arteritis, for tissue biopsy, also needed a follow-up with ophthalmology, to evaluate glaucoma as well as the pseudotumor cerebri, will set this contrast the constant use of the Fioricet, which he recommended would be used on a when necessary basis only, repeat LP was 21 cm, and closing pressure of 16 cm, and this is to his liking. Patient continues on acetazolamide 500 mg twice a day. Sleep hygiene again was discussed with the patient, and will need an outpatient sleep study, he also recommended the gabapentin to be titrated down slowly, currently at 1200 mg 3 times a day, which would start tapering on 1000 mg 3 times a day for the next few days, and will be discharged on 800 mg 3 times a day thereafter. We will evaluate the patient for occipital neuralgia in the morning, possible needing occipital nerve block, she started on prednisone 40 mg, patient was given IV Solu-Medrol earlier today possible brain sarcoid against temporal arteritis 03/31: still complains of left hemicrania, no nausea no vomiting, patient denies any diplopia, or painful vision. Patient inquiring again on Dilaudid and Ativan, however this regimen had caused her to have A team manage her loss of consciousness. She still has hemicrania however fever has resolved, we cannot do the Naprosyn test for the fever of unknown origin, CAT scan test failed to reveal any focal traits consistent with sarcoid, MRI of the brain shows similar lesions for demyelination, against chronic small vessel ischemia, multiple high signal foci not different from recent exam. Also no enhancement of venous sinuses, there is a 1.5 cm irregular area of increased signal on the flared and T2 images within the central chioma, could be related to demyelinating disease. She pretty much have full workup for the fever for unknown origin, we'll going to obtain Lyme testing with reflex, sed rate is normal with CRP that is slightly elevated, cloth bleaching range tender in the left hemicrania region including the TMJ bone area, cannot rule out dental abscess , she does have occipital neuralgia on examination left-sided, going to consult anesthesia for occipital neck block left side April 01: Patient is not asking for any narcotic, still with hemicrania, left side and left eye pain,'s MRI failed to reveal any significant change except for pre-existing demyelination, no sinusitis on MRI, still with left occipital pain, awaiting anesthesia for occipital nerve block tomorrow. No narcotics offered today, with decreasing gabapentin to 800 mg 3 times a day, no fevers however patient is on prednisone. auto immune immune against malignancy rather than infection is in the differential, unable to do naprosyn test as above. has anaphylaxis aspirin 04/02: Patient underwent a second lumbar puncture with anesthesia that revealed opening pressure of 21 cm of water and closing pressure of 16 cm water. A CAT scan of the chest was done to rule out sarcoidosis. Neurology has recommended changing Diamox 2 Topamax 50 mg twice daily and tapering prednisone. Neurology has also recommended headache specialists, Dr. John at [facility] and ophthalmology follow-up as an outpatient. Neurology is also recommended ENT follow-up regarding ringing in the ear and hearing loss that has been chronic. She is scheduled for occipital nerve block today once this is completed, patient will be discharged home. Long discussion with the patient regarding polypharmacy with overmedication and risk for adverse effects including . She needs to work with her PCP and neurologist to decrease the number of medications that she is currently receiving. During this hospitalization, gabapentin has been decreased to 800 mg 3 times a day from 1200 mg 3 times a day. Patient has been afebrile, heart rate 78, blood pressure 116/80, pulse ox 90% on 2 L nasal cannula. Patient will be discharged home today in stable condition. DISCHARGE DIAGNOSES 1. Headache due to Idiopathic intracranial hypertension (Pseudotumor cerebri). 2. Left hemicrania chronic was likely multifactorial, exam shows tenderness in the occipital nerve root, we will going to consult anesthesia for occipital nerve block left side 3. Febrile illness with unclear etiology. Workup was negative. 4. Unresponsive episode, responded to Narcan. Episode most likely due to IV Dilaudid on top of home medications. 5. No MS exacerbation. 6 History of relapsing remitting multiple sclerosis. 7. Chronic pain and occipital neuralgia under the care of Dr. Ramirez. 8. Hypertension and hypertensive cardiovascular disease. 9. Obesity with possible obstructive sleep apnea and obesity hypoventilation syndrome. 10. Mild intermittent asthma and COPD. 11. Fibromyalgia. 12. Generalized anxiety disorder. 13. Recurrent depression. 14. Chronic tobacco use and dependence. 15. Mild cognitive impairment. 16. Restless leg syndrome. 17. GERD 18. Chronic hypoxic respiratory failure on home oxygen therapy. Discharge plan: Home with [facility] Impression and plan of care have been directed as dictated by the signing ph ysician. Elaine Nguyen nurse practitioner acting as scribe for signing physician. Patient Condition at Discharge: Good Plan - Discharge Summary Discharge Rx Participant: Yes New Discharge Prescriptions: New Nicotine 21Mg/24Hr Patch [Habitrol] 1 patch TRANSDERM DAILY #30 patch predniSONE 0 mg PO DIRECTED #30 tab Topiramate [Topamax] 50 mg PO BID #60 tab Continue LORazepam [Ativan] 1 mg PO Q8H Aspirin 81 mg PO DAILY Verapamil HCl [Calan] 120 mg PO DAILY Butalb/APAP/Caff 50-325-40Mg [Fioricet 50-325-40] 1 tab PO Q8H oxyCODONE-APAP 10-325MG [Percocet 10-325 mg] 1 tab PO TID rOPINIRole HCL [Requip] 0.25 mg PO TID #90 tab Budesonide/Formoterol Fumarate [Symbicort 160-4.5 Mcg Inhaler] 2 puff INHALATION RT-BID Multivitamins, Thera [Multivitamin (formulary)] 1 tab PO DAILY Cholecalciferol [Vitamin D3 (25 Mcg = 1000 Iu)] 2,000 unit PO DAILY PARoxetine [Paxil] 40 mg PO DAILY tab Pantoprazole Sodium [Protonix] 40 mg PO BID Ipratropium-Albuterol Nebulize [Duoneb 0.5 mg-3 mg/3 ml Soln] 3 ml INHALATION RT-QID PRN PRN Reason: Shortness Of Breath Memantine [Namenda] 10 mg PO BID Montelukast [Singulair] 10 mg PO DAILY hydroCHLOROthiazide [Hydrodiuril] 25 mg PO DAILY tab Fluticasone Nasal Chalmers [Flonase Nasal Chalmers] 2 spray EA NOSTRIL DAILY PRN PRN Reason: Congestion Methocarbamol [Robaxin-750] 750 mg PO TID busPIRone HCl [Buspar] 10 mg PO TID #90 tab Folic Acid 1 mg PO DAILY #30 tab Albuterol Sulfate [Ventolin HFA] 1 - 2 puff INHALATION RT-Q6H PRN PRN Reason: Shortness Of Breath Nystatin 100,000 Unit/ml Susp [Mycostatin Oral Susp] 500,000 unit PO QID PRN PRN Reason: THRUSH Docusate [Colace] 100 mg PO DAILY PRN PRN Reason: Constipation Zinc Gluconate [Zinc] 25 mg PO DAILY Ascorbic Acid [Vitamin C] 1,000 mg PO DAILY Potassium Chloride ER [K-Dur 20] 20 meq PO DAILY PRN PRN Reason: TAKES WITH LASIX Furosemide [Lasix] 20 mg PO DAILY PRN PRN Reason: Edema Pain Cream (Unknown) 1 applic TOPICAL BID Ear Drops (Unknown) 1 dose LEFT EAR ONCE Changed Gabapentin [Neurontin] 800 mg PO TID #0 Discharge Medication List Aspirin 81 mg PO DAILY 02/20/14 [History] LORazepam [Ativan] 1 mg PO Q8H 02/20/14 [History] Verapamil HCl [Calan] 120 mg PO DAILY 02/20/14 [History] Butalb/APAP/Caff 50-325-40Mg [Fioricet 50-325-40] 1 tab PO Q8H 03/25/17 [History] oxyCODONE-APAP 10-325MG [Percocet 10-325 mg] 1 tab PO TID 01/28/18 [History] rOPINIRole HCL [Requip] 0.25 mg PO TID #90 tab 01/31/18 [Rx] Budesonide/Formoterol Fumarate [Symbicort 160-4.5 Mcg Inhaler] 2 puff INHALATION RT-BID 05/06/18 [History] Cholecalciferol [Vitamin D3 (25 Mcg = 1000 Iu)] 2,000 unit PO DAILY 05/07/18 [History] Multivitamins, Thera [Multivitamin (formulary)] 1 tab PO DAILY 05/07/18 [History] PARoxetine [Paxil] 40 mg PO DAILY tab 05/09/18 [Rx] Pantoprazole Sodium [Protonix] 40 mg PO BID 10/31/18 [History] Ipratropium-Albuterol Nebulize [Duoneb 0.5 mg-3 mg/3 ml Soln] 3 ml INHALATION RT-QID PRN 11/22/18 [History] Memantine [Namenda] 10 mg PO BID 11/22/18 [History] Montelukast [Singulair] 10 mg PO DAILY 11/22/18 [History] hydroCHLOROthiazide [Hydrodiuril] 25 mg PO DAILY tab 11/26/18 [Rx] Fluticasone Nasal Chalmers [Flonase Nasal Chalmers] 2 spray EA NOSTRIL DAILY PRN 04/28/19 [History] Methocarbamol [Robaxin-750] 750 mg PO TID 04/28/19 [History] Folic Acid 1 mg PO DAILY #30 tab 05/02/19 [Rx] busPIRone HCl [Buspar] 10 mg PO TID #90 tab 05/02/19 [Rx] Albuterol Sulfate [Ventolin HFA] 1 - 2 puff INHALATION RT-Q6H PRN 08/09/19 [History] Nystatin 100,000 Unit/ml Susp [Mycostatin Oral Susp] 500,000 unit PO QID PRN 09/04/19 [History] Ascorbic Acid [Vitamin C] 1,000 mg PO DAILY 01/30/20 [History] Docusate [Colace] 100 mg PO DAILY PRN 01/30/20 [History] Zinc Gluconate [Zinc] 25 mg PO DAILY 01/30/20 [History] Ear Drops (Unknown) 1 dose LEFT EAR ONCE 03/26/20 [History] Furosemide [Lasix] 20 mg PO DAILY PRN 03/26/20 [History] Pain Cream (Unknown) 1 applic TOPICAL BID 03/26/20 [History] Potassium Chloride ER [K-Dur 20] 20 meq PO DAILY PRN 03/26/20 [History] Gabapentin [Neurontin] 800 mg PO TID #0 04/02/20 [Rx] Nicotine 21Mg/24Hr Patch [Habitrol] 1 patch TRANSDERM DAILY #30 patch 04/02/20 [Rx] Topiramate [Topamax] 50 mg PO BID #60 tab 04/02/20 [Rx] predniSONE 0 mg PO DIRECTED #30 tab 04/02/20 [Rx] Follow up Appointment(s)/Referral(s): [facility], [NON-STAFF] - As Needed Carolynn Ramirez MD [Medical Doctor] - 1 Week Kilo Tabares MD [Primary Care Provider] - 1 Week Saroj John MD [REFERRING] - [address] Rushing MD [STAFF PHYSICIAN] - 3 Days (Outpatient sleep study) Ludwin Lopez DO [Doctor of Osteopathic Medicine] - 4 Weeks (Hearing loss) Discharge/Stand Alone Forms: Anes Pain/Wismer Instructions Discharge Disposition: HOME WITH HOME HEALTH SERVICES
--- NOTE | 2020-04-02 08:17 | P.PN ---
Subjective Progress Note Date: 04/02/20 The patient was seen at bedside and she continues to have the headache over the left periorbital and retro-orbital as well as a left temporal as well as occipital lead. She stated that the pain was more than a 10. It's constant. She did date that she has photophobia and phonophobia but the lights were turned on and the TV sounds was the significant. She denies of any nausea or vomiting. Denies any focal weakness. Denies off any numbness. She said that she had no improvement since this past weekend with the headaches. She she stated that she has runny nose and blurring of the vision mostly the l eft. Denies any redness of the eyes or any tearing/discharge from eyes. Upon asking why she is using verapamil as her home medication because of her headache I said whatever of headache she could not tell me. Objective - Vital Signs Vital signs: Vital Signs Temp 97.9 F 04/02/20 07:43 Pulse 78 04/02/20 07:43 Resp 18 04/02/20 07:43 BP 116/80 04/02/20 07:43 Pulse Ox 98 04/02/20 07:43 Intake & Output 04/01/20 04/02/20 04/02/20 18:59 06:59 18:59 Intake Total 2280 Balance 2280 Intake: Oral 2280 Other: Voiding Method Toilet # Voids 5 3 # Bowel Movements 1 - Exam GENERAL: The patient is lying in bed and is mild to moderate acute distress. HENT: Normocephalic. Tender to touch throughout entire left side of left hemisp here. NEUROLOGICAL: Higher mental function: The patient is awake, alert, oriented to self, place and time. Patient is following commands. No aphasia and no neglect. Cranial nerves: The pupils are round, equal, 3-4mm and reactive to light and accommodation. Visual acuity: OD 20/40, OS: 20/50 both without correction. Visual schwarz are full to confrontation throughout. Extraocular movement is i ntact no nystagmus is noted. Facial sensation is normal to touch throughout. The facial strength is normal throughout. Hearing is normal bilaterally to hand rub. Tongue is midline and moved [id number] without any difficulty. No dysarthria is noted. Shoulder shrug is normal bilaterally. Motor: The strength is 5/5 throughout except proximal upper extremities because of her pain. Normal tone and bulk. Cerebellum: Normal finger to nose bilaterally. Sensation: Sensation is normal to touch throughout. Reflexes (right/left): 2+ throughout Plantars are downgoing bilaterally. - Labs CBC & Chem 7: 03/28/20 08:41 03/28/20 08:41 Labs: Microbiology - Last 24 Hours (Table) 03/28/20 08:41 Blood Culture - Preliminary Blood No Growth after 96 hours 03/26/20 04:57 Blood Culture - Final Blood No Growth after 144 hours Assessment and Plan Assessment: This is a 54-year-old woman with history of fall relapsing remitting multiple sclerosis, peripheral neuropathy that presented emergency department on 03/26/2020 for headache. She has history of migraine but she said that this feels different than usual headache. She presented with left sided headache and described it as "feeling on fire" over the left side and pressure over the left eye which she feels it is new. She has blurry vision mostly left eye. She is complaining of pulsating sound out of both ears and blurry vision out of both ears for at least 6 month and headache. * Cephalgia due to Idiopathic intracranial hypertension (Pseudotumor cerebri). Other rare atypical differential: Paroxysmal hemicrania or cluster, I believe don't fit the picture since the patient headache is constant (duration does not fit the criteria). * Intractable headache likely due to above * History of Migraine * History of for relapsing remitting multiple sclerosis---no new relapse * Reported mild cognitive impairment * History of peripheral neuropathy * Chronic pain and occipital neuralgia * History of fibromyalgia * Polypharmacy * Reported history of restless leg syndrome * History of hypertension * Morbid obesity * History of COPD * History of osteoporosis * Obesity with possible obstructive sleep apnea. * History of uterine cancer status post surgery * Chronic tobacco use Plan: * Lumbar Puncture 03/27/20: Opening pressure was 37 cm of water and the closing pressure was 31 cm of water. 14 mL were removed. * CSF (03/27/20): clear, colorless, red blood cell was 195, total nucleated cells 0, glucose is 70, protein 44 (normal). CSF culture: No polymorphonuclear leukocytes and no organism.Pending oligoclonal band. ANABEL from CS: <5. * Repeat Lumbar puncture 03/30/2020 * It was performed by the anestheologist and opening presssure was 21cm water and closing pressure was 16 cm of water. I was notified by primary team that anesthesia did not take any fluids out. * CTA of the head and neck (03/26/20): Negative CT of the head and neck. * CT brain/CTV (03/29/20): No evidence to suggest dural venous sinus thrombosis. * MRI the brain with and without 03/30/20: Was reported as mild cerebral atrophy. White matter multiple high signal foci no significant different then the recent exam and could relate to chronic small vessel ischemia or demyelinating disease at. There is also pontine abnormal signal unchanging could relate to do Domo disease. * Acetazolamide 500mg 1 tablet bid will be stopped and will placed on Topamax 50mg bid (which will help with her migraine and idiopathic intracranial hypertension). Notified her of the side-effects. * Patient was counseled on weight loss. * CASEY is negative. Patria 1 antibody is negative. * CANCA is less than the 1:20 * ESR is 2 and a repeat ESR is 4. * CRP is on initial presentation was 27.4 which I think was reactive and the repeated was 2.0 which was done on 03/27/2020 but again 27.7 on 03/28/20. With the patient's clinical history as well as the lab of the ESR, I highly doubt the patient has the giant cell arteritis. * Repeat ESR: 6. CRP: 25.5. I ordered ANABEL serum level, CK level: 34 (normal). * CT chest CT chest to rule out sarcoidosis: Was reported as mild subsegmental atelectasis in the lower lung field. No significant interstitial lung disease to suggest sarcoidosis. No suspicious pulmonary mass. Lung disease improved compared to old exam. Mild cardiomegaly. * Temporal artery biopsy is not needed since unlikely Giant cell arteritis. * Kimball virus PCR on 03/28/2020 is nondetected. * Vascular surgeon was consulted by primary team for temporal artery biopsy, and vascular team are in agreement that the procedure was not necessary and therefore that was not done. I also spoke with the primary team and we are in agreement that the temporal artery biopsy is not needed. * On Prednisone 40mg daily. Recommend tapering dose over the next two weeks. * Agree with occipital nerve block. * I recommend an ENT consult regarding her ringing in the ear and hearing loss that's is a chronic issue according to the patient. If cannot be done then recommend as an outpatient. * I believe the patient is on polypharmacy and she is being overmedicated by her outpatient neurologist. Fioricets, NSAIDs and opioids on a chronic basis can cause medication over use headache. * For the restless leg syndrome and the patient is on Requip 0.25 mg 2 times a day, mild cognitive impairment that she is on Namenda 10 mg twice a day, fibromyalgia she is on 1200 mg 3 times a day prescribed by her primary neurologist * On home Gabapentin 1200 mg 3 times a day is a high dose and she should be tapered down slightly. Was tapered as inpatient to 800mg tid. * I recommended the patient gets a neuropsych evaluation as an outpatient to delineate the patient's cognitive impairment. * Regarding the patient obesity with the possible obstructive sleep apnea I recommend the patient to get a sleep study as an outpatient. She needs to follow-up with a process worker. * Upon discharge the patient needs to follow-up with a neurologist as outpatient within 1-2 weeks. * Recommend patient to seek headache specialist as outpatient (Dr. John) over at [facility] within 1 week. Also follow with Ophthalmology as outpatient within 1-2 weeks. The plan was discussed with the primary team and the patient's nurse. Jayden Javier M.D. Neuro-hospitalist Time with Patient: Greater than 30
[2020-04-02] MEDS: NICOTINE 21MG/24HR PATCH TRANSDERM SCH (08:22)
[2020-04-02] MEDS: ASPIRIN 81 MG PO SCH (08:22)
[2020-04-02] MEDS: MULTIVITAMINS, THERA 1 EACH TAB PO SCH (08:22)
[2020-04-02] MEDS: predniSONE 20 MG TAB PO SCH (08:22)
[2020-04-02] MEDS: TOPIRAMATE 25 MG TAB PO SCH ×2 (08:22→20:48)
[2020-04-02] MEDS: MONTELUKAST 10 MG TAB PO SCH (08:22)
[2020-04-02] MEDS: GABAPENTIN 400 MG CAP PO SCH ×3 (08:22→20:48)
[2020-04-02] MEDS: HEPARIN SODIUM,PORCINE 5,000 UNIT/ML 1 ML VIAL SQ SCH ×2 (08:23→20:49)
[2020-04-02] MEDS: SODIUM CHLORIDE 0.9% 1,000 ML IV SCH ×2 (08:23→19:04)
[2020-04-02] MEDS: FOLIC ACID 1 MG TAB PO SCH (08:23)
[2020-04-02] MEDS: busPIRone HCl 10 MG TAB PO SCH ×3 (08:24→20:50)
[2020-04-02] MEDS: MEMANTINE 10 MG TAB PO SCH ×2 (08:25→20:50)
[2020-04-02] MEDS: methocarbamoL 750 MG TAB PO SCH ×3 (08:25→20:50)
[2020-04-02] MEDS: hydroCHLOROthiazide 25 MG TAB PO SCH (08:25)
[2020-04-02] MEDS: oxyCODONE-APAP 10-325MG 1 EACH TAB PO SCH ×3 (08:26→20:48)
[2020-04-02] MEDS: NON FORMULARY DRUG (Zinc Gluconate 50 MG Tab) PO SCH (08:28)
[2020-04-02] MEDS: VERAPAMIL SR 120 MG TABLET.ER PO SCH (08:28)
[2020-04-02] MEDS: PARoxetine 20 MG TAB PO SCH (08:34)
[2020-04-02] MEDS: PANTOPRAZOLE 40 MG TABLET PO SCH ×2 (08:41→20:48)
[2020-04-02] MEDS: BUTALB/APAP/CAFF 50-325-40MG TAB PO PRN ×2 (11:42→22:01)
--- NOTE | 2020-04-02 12:52 | P.PN ---
Subjective Progress Note Date: 04/02/20 HISTORY OF PRESENT ILLNESS This is a 54 year old female patient of Dr. Tabares and Dr. Ramirez with a past medical history of relapsing remitting multiple sclerosis, hypertension and hy pertensive cardiovascular disease with left ventricular hypertrophy, history of GERD, multiple sclerosis, COPD, asthma, history of osteoporosis, uterine cancer status post surgery, chronic hypoxic respiratory failure on home O2 at 2 L nasal cannula, tobacco use. She has had multiple admissions for acute exacerbation of her multiple sclerosis. Patient complains of headache that felt like her head was on fire that started on Thursday. It was in the left [place] area. Worsen over the weekend and on Thursday was involving whole left side of her head area she has generalized tenderness to entire scalp area. She also states that she has been placing eardrops in her left ear and occasionally to her right. She denies having any fever or chills. She presented to [facility] emergency center afebrile, heart rate 98, blood pressure 138/91, pulse ox 95%. WBC 12.0, hemoglobin 15.4. CO2 39, creatinine 0.48. Blood sugar 123. Liver function tests normal. C-reactive protein 27.4, sed rate normal. Lactic acid 1.2. EKG is a sinus rhythm with no acute ST changes. CAT scan of the brain did not show any acute intracranial pathology. Patient was started on Solu-Medrol 250 mg every 6 hours and [facility]. Subsequently, Solu- Medrol has been discontinued and patient started on Tegretol for trigeminal neuralgia. Consult with neurology in place and vascular surgeon for possible temporal arteritis. Sed rate is noted to be normal. 03/27: Patient was evaluated by neurology, Dr. Javier, and unsure of type of headache. Plan to rule out pseudotumor cerebri. He has recommended a lumbar puncture with opening pressure and at the time of this evaluation, patient is refusing but later changed her mind. CT angiogram of the neck and brain were negative. He has also recommended ENT consult which we will plan to do as an outpatient. There is no new relapse of MS. Vascular surgery does not plan for biopsy as temporal arteritis ruled out. Dr. Javier has also ruled out trigeminal neuralgia. Patient continues to have headache and significant tenderness to p alpation. When patient evaluated by anesthesia for LP, we will also has an evaluation for occipital neuralgia. Patient states that she would like an antibiotic as she thinks this would help her headache. At this time, antibiotics are denied. Patient does not show signs of sinusitis. Patient has been afebrile, heart rate 94, blood pressure 140/81, pulse ox 93% on 2 L nasal cannula. Repeat sed rate was 4 and C-reactive protein 2. Blood cultures no growth after 24 hours. 03/28: underwent lumbar puncture yesterday with opening pressure of 37 cm of water and closing pressure of 31 cm of water with removal of 14 ML's of cerebrospinal fluid. Dr. Javier started the patient on Diamox 500 mg 1 and 250 mg twice daily for idiopathic intracranial hypertension. this morning, patient had a fever of 101.8, heart rate 122, blood pressure 145/71, pulse ox 93% on 2 L nasal cannula. Blood culture, urinalysis and lab work ordered. At the time of evaluation, patient continued to have significant headache that did not seem to be improved following LP and drainage of some spinal fluid and initiation of Diamox. Later in the day, patient was found unresponsive with oxygen on at 2 L which is her baseline and pulse ox of 43%, heart rate in 115, respiratory rate 8. Patient was given Narcan with reversal of symptoms and was subsequently pulse oxing 98% on 2 L. Patient had received Dilaudid on top of her home medications this morning approximate one hour prior to this episode of unresp onsiveness. IV Dilaudid will be discontinued. Tegretol also discontinued. Case was discussed with Dr. Javier. 04/02: Patient underwent a second lumbar puncture with anesthesia that revealed opening pressure of 21 cm of water and closing pressure of 16 cm water. A CAT scan of the chest was done to rule out sarcoidosis. Neurology has recommended changing Diamox 2 Topamax 50 mg twice daily and tapering prednisone. Neurology has also recommended headache specialists, Dr. John at [facility] and ophthalmology follow-up as an outpatient. Neurology is also recommended ENT follow-up regarding ringing in the ear and hearing loss that has been chronic. She is scheduled for occipital nerve block today once this is completed, patient will be discharged home. Long discussion with the patient regarding polypharmacy with overmedication and risk for adverse effects including . She needs to work with her PCP and neurologist to decrease the number of medications that she is currently receiving. During this hospitalization, gabapentin has been decreased to 800 mg 3 times a day from 1200 mg 3 times a day. Patient has been afebrile, heart rate 78, blood pressure 116/80, pulse ox 90% on 2 L nasal cannula. Patient will be discharged home today in stable condition. REVIEW OF SYSTEMS Constitutional: No fever, no chills, no night sweats. No weight change. Denies weakness, fatigue or lethargy. No daytime sleepiness. EENT: Reports headache. No blurred vision or double vision, no loss of vision. Reports ear discomfort, no dizziness. No nasal drainage or congestion. No epistaxis. No sore throat. Lungs: No shortness of breath, cough, no sputum production. No wheezing. Cardiovascular: No chest pain, no lower extremity edema. No palpitations. No paroxysmal nocturnal dyspnea. No orthopnea. No lightheadedness or dizziness. No syncopal episodes. Abdominal: No abdominal pain. No nausea, vomiting. No diarrhea. No constipation. No bloody or tarry stools.. No loss of appetite. Genitourinary: No dysuria, increased frequency, urgency. No urinary retention. Musculoskeletal: No myalgias. Reports muscle weakness, no gait dysfunction, no frequent falls. No back pain. No neck pain. Integumentary: No wounds, no lesions. No rash or pruritus. No unusual bruising. No change in hair or nails. Neurologic: No aphasia. No facial droop. No change in mentation. No head injury. No headache. No paralysis. No paresthesia. Psychiatric: No depression. No anxiety. No mood swings. Endocrine: No abnormal blood sugars. No weight change. No excessive sweating or thirst. No cold intolerance. PHYSICAL EXAMINATION Gen: This is a morbidly obese 54-year-old -[place] female. She is resting in bed, patient able to speak in full sentences. HEENT: Head is atraumatic, normocephalic. Pupils equal, round. Sclerae is anicteric. Patient has tenderness in the entire left side of her scalp. No significant tenderness over the temporal artery area. NECK: Supple. No JVD. No lymphadenopathy. No thyromegaly. LUNGS: Clear to auscultation. No wheezes or rhonchi. No intercostal retractions. HEART: Regular rate and rhythm. No murmur. ABDOMEN: Soft. Bowel sounds are present. No masses. Mild left-sided tenderness. EXTREMITIES: No pedal edema. No calf tenderness. DP palpable. NEUROLOGICAL: Patient is awake, alert and oriented x3. Cranial nerves 2 through 12 are grossly intact. Hand tenoner operator equal and strong bilaterally, foot push pull strong bilaterally. ASSESSMENT AND PLAN 1. Headache due to Idiopathic intracranial hypertension (Pseudotumor cerebri). Consult with neurology and vascular surgery. Patient is status post LP with drainage of 14 ML's of 0 spinal fluid, started on Diamox 500 mg 1 followed by 250 mg twice daily. Dilaudid discontinued. 2. Febrile illness with unclear etiology. Urinalysis and urine culture, blood culture ordered. Inflammatory markers and repeat lab work ordered. 3. Unresponsive episode, responded to Narcan. Episode most likely due to IV Dilaudid on top of home medications. Neurology makes mention in all notes regarding polypharmacy as a problem. Dilaudid will be discontinued. 4. No MS exacerbation. Solu-Medrol will be discontinued for now, neurology consult. 5 History of relapsing remitting multiple sclerosis. 6. Chronic pain and occipital neuralgia under the care of Dr. Ramirez. Continue gabapentin decreased to 800 mg 3 times daily, Percocet one 3 times daily as needed, Fioricet as needed. Occipital nerve block today. 7. Hypertension and hypertensive cardiovascular disease. Hydrochlorothiazide 25 mg daily, verapamil 120 mg orally once every day. 8. Obesity with possible obstructive sleep apnea and obesity hypoventilation syndrome. 9. Mild intermittent asthma and COPD. Continue albuterol inhaler every 6 hours as needed, Symbicort twice daily, Singulair 10 mg daily, Flonase as needed. 10. Fibromyalgia. Continue gabapentin 1200 mg orally 3 times every day. 11. Generalized anxiety disorder. Continue Ativan 1 mg every 8 hours as needed. 12. Recurrent depression. Continue Paxil 40 mg daily. 13. Chronic tobacco use and dependence. Smoking cessation and counseling an increased risk of CAD, CVA, and malignancy. 14. Mild cognitive impairment. Continue patient on Namenda 10 mg orally twice every day. 15. Restless leg syndrome. Continue Requip 0.25 mg 2 times daily 16. DVT prophylaxis. Heparin subcu. 17. GERD and GI prophylaxis. Continue with Protonix 40 mg orally twice every day. CODE STATUS: Full code DISCHARGE PLAN Home with [facility]. Impression and plan of care have been directed as dictated by the signing physician. Elaine Nguyen nurse practitioner acting as scribe for signing physician. Objective - Vital Signs Vital signs: Vital Signs Temp 97.9 F 04/02/20 07:43 Pulse 78 04/02/20 07:43 Resp 18 04/02/20 07:43 BP 116/80 04/02/20 07:43 Pulse Ox 98 04/02/20 07:43 Intake & Output 04/01/20 04/02/20 04/02/20 18:59 06:59 18:59 Intake Total 2280 Balance 2280 Intake: Oral 2280 Other: Voiding Method Toilet # Voids 5 3 # Bowel Movements 1 - Labs CBC & Chem 7: 03/28/20 08:41 03/28/20 08:41 Labs: Microbiology - Last 24 Hours (Table) 03/28/20 08:41 Blood Culture - Preliminary Blood No Growth after 96 hours 03/26/20 04:57 Blood Culture - Final Blood No Growth after 144 hours
--- NOTE | 2020-04-02 13:44 | P.PAINCN ---
History of Present Illness - Reason for Consult Consult date: 04/02/20 - History of Present Illness This is a 54-year-old patient referred by Dr. Javier. She is currently inpatient the hospital has a very competent and neurological history. To recap she is a past medical history of relapsing remitting multiple sclerosis, hypertension, cardiac vascular disease with left radicular hypertrophy, COPD, chronic respiratory failure home on home O2 2 L. She had multiple admissions for acute exacerbations of her multiple sclerosis. She is currently admitted to the hospital where she came due to significant headaches. She has had 2 lumbar punctures since she has been here and is currently being managed by headache specialist here at the hospital. She has had possible nerve blocks in the past and we have been consulted for the same procedure today. She currently notes pain in the back of her head specifically on the left side radiating to her scalp. She says that this pain is a same as she has had in the past in which occipital nerve blocks helped significantly. Pain is described as sharp and stabbing and intermittent throughout the day. In addition to above, 13-point review of systems is also negative for chest pain, shortness of breath, changes in vision, changes in hearing, new onset weakness, abdominal pain, diarrhea, extreme fatigue, malaise, fever, skin changes, homicidal or suicidal ideation, or bowel or bladder incontinence. Physical exam: Vital Signs: Reviewed in EMR GENERAL: Well appearing, in no acute distress PSYCH: Mood and affect is appropriate. Awake, alert, and oriented SKIN: Skin color, texture, turgor normal, no rashes or lesions HEENT: Normocephalic, atraumatic. EOM intact CV: No pedal edema RESP: Respirations are unlabored, no audible wheezing GI: Abdomen non-distended MUSCULOSKELETAL: Bilateral upper and lower extremity strength is normal and symmetric. No atrophy or tone abnormalities are noted. Neck: No pain to palpation over the cervical paraspinous muscles. Spurling negative, Axial Loading Test negative, Edward's sign negative. No pain with neck flexion, extension, or lateral flexion. No obvious deformity or signs of trauma. Normal cervical lordotic curve and normal cervical spine range of motion Pain to palpation over the occipital area specifically on the left side Extremities: Peripheral joint ROM is full and pain free without obvious instability or laxity in all four extremities. No edema or skin discolorations noted. Gait: Gait is normal NEUR: Bilateral upper and lower extremity coordination and muscle stretch reflexes are physiologic and symmetric. Negative clonus. No loss of sensation is noted. Cranial nerves are grossly intact. Assessment: 1. relapsing remitting multiple sclerosis 2. Occipital neuralgia Plan: - Proceed with left-sided occipital nerve block. Past Medical History Past Medical History: Asthma, Cancer, COPD, Eye Disorder, Fibromyalgia, GERD/Reflux, Hearing Disorder / Deafness, Hypertension, Memory Impairment, Neuro logic Disorder, Osteoarthritis (OA), Pneumonia, Syncope Additional Past Medical History / Comment(s): MS relapsing/remitting type, chronic bilateral eye pain/optic neuritis/ poor vision, cataracts bilaterally, chronic occipital neuralgia, osteoporosis, RLS, chronic hypoxic respiratory failure with home oxygen 2L/NC prn, chronic bronchitis, immunocompromised, elevated blood sugar with steroid use, uterine cancer with hysterectomy/radiation, heart murmur, mild cognitive impairment, chronic vertigo, falls, rheumatic fever as child, tinnitis bilaterally, allergic rhinitis. History of Any Multi-Drug Resistant Organisms: None Reported Past Surgical History: Bladder Surgery, Heart Catheterization, Hysterectomy Additional Past Surgical History / Comment(s): Nerve blocks, bladder suspension. Past Anesthesia/Blood Transfusion Reactions: No Reported Reaction Additional Past Anesthesia/Blood Transfusion Reaction / Comm: mild clausterphobia Past Psychological History: Anxiety, Depression Additional Psychological History / Comment(s): Pt resides alone. She uses a cane or walker or wheelchair. She has a private hire nurse aide who organizers her meds in a materials planner/production planner but pt takes her own meds, aide assists her with her ADLs. This aide also prepares meals/shopping and cleaning. Pt does not drive, she has her friends take her to appts or sometimes her aide drives her. Smoking Status: Current every day smoker Past Alcohol Use History: Rare Additional Past Alcohol Use History / Comment(s): Patient started smoking at age 18 and has smoked on and off since then. She is currently smoking 1 pack per day. Past Drug Use History: None Reported - Past Family History Mother Family Medical History: CVA/TIA, Myocardial Infarction ([place]) Additional Family Medical History / Comment(s): Mother is alive at age 75 with history of brain aneurysm, 3 strokes and 2 myocardial infarctions. Brain aneurysms run on mother's side of family Father Additional Family Medical History / Comment(s): Father at age 72 from a cardiac arrest thought to be due to a myocardial infarction. Sister(s) Additional Family Medical History / Comment(s): Patient has 2 sisters with no major medical problems. Patient does not have any brothers. Patient has 2 adult children with no major medical problems. Patient is only family member with MS. Medications and Allergies Home Medications Medication Instructions Recorded Confirmed Type Aspirin 81 mg PO DAILY 02/20/14 03/26/20 History LORazepam [Ativan] 1 mg PO Q8H 02/20/14 03/26/20 History Verapamil HCl [Calan] 120 mg PO DAILY 02/20/14 03/26/20 History Butalb/APAP/Caff 50-325-40Mg 1 tab PO Q8H 03/25/17 03/26/20 History [Fioricet 50-325-40] oxyCODONE-APAP 10-325MG [Percocet 1 tab PO TID 01/28/18 03/26/20 History 10-325 mg] rOPINIRole HCL [Requip] 0.25 mg PO TID #90 tab 01/31/18 03/26/20 Rx Budesonide/Formoterol Fumarate 2 puff INHALATION RT-BID 05/06/18 03/26/20 History [Symbicort 160-4.5 Mcg Inhaler] Cholecalciferol [Vitamin D3 (25 2,000 unit PO DAILY 05/07/18 03/26/20 History Mcg = 1000 Iu)] Multivitamins, Thera [Multivitamin 1 tab PO DAILY 05/07/18 03/26/20 History (formulary)] PARoxetine [Paxil] 40 mg PO DAILY tab 05/09/18 03/26/20 Rx Pantoprazole Sodium [Protonix] 40 mg PO BID 10/31/18 03/26/20 History Ipratropium-Albuterol Nebulize 3 ml INHALATION RT-QID PRN 11/22/18 03/26/20 History [Duoneb 0.5 mg-3 mg/3 ml Soln] Memantine [Namenda] 10 mg PO BID 11/22/18 03/26/20 History Montelukast [Singulair] 10 mg PO DAILY 11/22/18 03/26/20 History hydroCHLOROthiazide [Hydrodiuril] 25 mg PO DAILY tab 11/26/18 03/26/20 Rx Fluticasone Nasal [place] [Flonase 2 spray EA NOSTRIL DAILY PRN 04/28/19 03/26/20 History Nasal [place]] Methocarbamol [Robaxin-750] 750 mg PO TID 04/28/19 03/26/20 History Folic Acid 1 mg PO DAILY #30 tab 05/02/19 03/26/20 Rx busPIRone HCl [Buspar] 10 mg PO TID #90 tab 05/02/19 03/26/20 Rx Albuterol Sulfate [Ventolin HFA] 1 - 2 puff INHALATION RT-Q6H PRN 08/09/19 1 05/26/19 History Nystatin 100,000 Unit/ml Susp 500,000 unit PO QID PRN 09/04/19 03/26/20 History [Mycostatin Oral Susp] Ascorbic Acid [Vitamin C] 1,000 mg PO DAILY 01/30/20 03/26/20 History Docusate [Colace] 100 mg PO DAILY PRN 01/30/20 03/26/20 History Zinc Gluconate [Zinc] 25 mg PO DAILY 01/30/20 03/26/20 History Ear Drops (Unknown) 1 dose LEFT EAR ONCE 03/26/20 03/26/20 History Furosemide [Lasix] 20 mg PO DAILY PRN 03/26/20 03/26/20 History Pain Cream (Unknown) 1 applic TOPICAL BID 03/26/20 03/26/20 History Potassium Chloride ER [K-Dur 20] 20 meq PO DAILY PRN 03/26/20 03/26/20 History Gabapentin [Neurontin] 800 mg PO TID #0 04/02/20 03/26/20 Rx Nicotine 21Mg/24Hr Patch [Habitrol] 1 patch TRANSDERM DAILY #30 patch 04/02/20 Rx Topiramate [Topamax] 50 mg PO BID #60 tab 04/02/20 Rx predniSONE 0 mg PO DIRECTED #30 tab 04/02/20 Rx Allergies Allergy/AdvReac Type Severity Reaction Status Date / Time baclofen AdvReac URINARY Verified 03/27/20 14:09 ISSUES dexamethasone [From Decadron] AdvReac "THOMPSON Verified 03/27/20 14:09 SKIN"/DEHYDRATION Physical Exam Vitals: Vital Signs Temp Pulse Pulse Resp BP BP BP 04/02/20 11:10 87 04/02/20 11:00 84 04/02/20 07:43 97.9 F 78 18 116/80 04/02/20 07:23 85 04/02/20 07:15 116 H 04/02/20 04:31 98.2 F 72 18 113/77 04/01/20 21:57 97.8 F 85 17 100/72 04/01/20 21:36 75 04/01/20 21:29 75 Pulse Ox 04/02/20 11:10 04/02/20 11:00 04/02/20 07:43 98 04/02/20 07:23 04/02/20 07:15 97 04/02/20 04:31 98 04/01/20 21:57 97 04/01/20 21:36 04/01/20 21:29 Intake and Output 04/01/20 04/02/20 04/02/20 22:59 06:59 14:59 Intake Total 2280 Balance 2280 Intake: Oral 2280 Other: Voiding Method Toilet # Voids 5 3 # Bowel Movements 1 Results CBC & Chem 7: 03/28/20 08:41 03/28/20 08:41 Labs: Microbiology - Last 24 Hours (Table) 03/28/20 08:41 Blood Culture - Preliminary Blood No Growth after 120 hours PQRS Measure Charge Sheet PQRS Narrative: Smoking Status Current every day smoker Do You Want the Pneumonia Vaccine Up to Date Vaccine AT THIS TIME? Blood Pressure [Left Arm 113/77 Supine] Blood Pressure [Right Arm] 116/80 Blood Pressure [Right Arm 115/76 Supine] Blood Pressure [Right Arm 131/83 Sitting] Blood Pressure [Left Arm 100/72 Sitting] Blood Pressure 130/70 Pain Intensity [Left Temporal] 10 Pain Intensity 7 Pain Scale Used [Left Temporal Numeric (1 - 10) ] Pain Scale Used Numeric (1 - 10) Scale Used Numeric (1 - 10) Home Medications: Ambulatory Orders Aspirin 81 mg PO DAILY 02/20/14 LORazepam [Ativan] 1 mg PO Q8H 02/20/14 Verapamil HCl [Calan] 120 mg PO DAILY 02/20/14 Butalb/APAP/Caff 50-325-40Mg [Fioricet 50-325-40] 1 tab PO Q8H 03/25/17 oxyCODONE-APAP 10-325MG [Percocet 10-325 mg] 1 tab PO TID 01/28/18 rOPINIRole HCL [Requip] 0.25 mg PO TID #90 tab 01/31/18 Budesonide/Formoterol Fumarate [Symbicort 160-4.5 Mcg Inhaler] 2 puff INHALATION RT-BID 05/06/18 Cholecalciferol [Vitamin D3 (25 Mcg = 1000 Iu)] 2,000 unit PO DAILY 05/07/18 Multivitamins, Thera [Multivitamin (formulary)] 1 tab PO DAILY 05/07/18 PARoxetine [Paxil] 40 mg PO DAILY tab 05/09/18 Pantoprazole Sodium [Protonix] 40 mg PO BID 10/31/18 Ipratropium-Albuterol Nebulize [Duoneb 0.5 mg-3 mg/3 ml Soln] 3 ml INHALATION RT-QID PRN 11/22/18 Memantine [Namenda] 10 mg PO BID 11/22/18 Montelukast [Singulair] 10 mg PO DAILY 11/22/18 hydroCHLOROthiazide [Hydrodiuril] 25 mg PO DAILY tab 11/26/18 Fluticasone Nasal [place] [Flonase Nasal [place]] 2 spray EA NOSTRIL DAILY PRN 04/28/19 Methocarbamol [Robaxin-750] 750 mg PO TID 04/28/19 Folic Acid 1 mg PO DAILY #30 tab 05/02/19 busPIRone HCl [Buspar] 10 mg PO TID #90 tab 05/02/19 Albuterol Sulfate [Ventolin HFA] 1 - 2 puff INHALATION RT-Q6H PRN 08/09/19 Nystatin 100,000 Unit/ml Susp [Mycostatin Oral Susp] 500,000 unit PO QID PRN 09/04/19 Ascorbic Acid [Vitamin C] 1,000 mg PO DAILY 01/30/20 Docusate [Colace] 100 mg PO DAILY PRN 01/30/20 Zinc Gluconate [Zinc] 25 mg PO DAILY 01/30/20 Ear Drops (Unknown) 1 dose LEFT EAR ONCE 03/26/20 Furosemide [Lasix] 20 mg PO DAILY PRN 03/26/20 Pain Cream (Unknown) 1 applic TOPICAL BID 03/26/20 Potassium Chloride ER [K-Dur 20] 20 meq PO DAILY PRN 03/26/20 Gabapentin [Neurontin] 800 mg PO TID #0 04/02/20 Nicotine 21Mg/24Hr Patch [Habitrol] 1 patch TRANSDERM DAILY #30 patch 04/02/20 Topiramate [Topamax] 50 mg PO BID #60 tab 04/02/20 predniSONE 0 mg PO DIRECTED #30 tab 04/02/20
[2020-04-02] MEDS: MELATONIN 5 MG TABLET PO SCH (20:48)
[2020-04-03] MEDS: SODIUM CHLORIDE 0.9% 1,000 ML IV SCH (03:41)
[2020-04-03] MEDS: LORazepam 1 MG TAB PO SCH (07:09)
[2020-04-03] MEDS ORDERED: LACTATED RINGERS 1,000 ML IV ONE (07:18)
[2020-04-03 07:21] VITALS: RESP 16; TEMP 97.8
[2020-04-03] MEDS ORDERED: ROPIVACAINE 5MG/ML 20ML VIAL ONE (07:35)
--- NOTE | 2020-04-03 07:43 | P.PCN ---
Description of Procedure: Pre-operative diagnosis: left occipital neuralgia Post Operative Diagnosis same Procedure: bilateral occipital nerve block ANESTHESIA: none EBL: Minimal PROCEDURE INDICATION: The patient with neck pain and headache secondary to occipital neuralgia unresponsive to conservative treatments. PROCEDURE DESCRIPTION / TECHNIQUE: The patient was seen and identified in the preoperative area. Risks, benefits, complications, and alternatives were discussed with the patient, the patient agreed to proceed with the procedure and signed the consent. IV was in situ. Vital signs remained stable throughout the procedure. Patient was taken to the OR and time out was completed. The patient was placed in the seated position on the procedure table. The cervical area and bilateral occiptial area were prepped with alcohol swab. Vital signs were closely monitored during the procedure. The left occiptal ridge was palpated and was then accessed with a 25 G needle. Then after negative aspiration, 3 ml of the block solution containing 5 ml of ropivacaine 0.5% was injected to the region of each occipital nerve. Needle was withdrawn intact. Patient tolerated procedure well. No acute complications.
[2020-04-03] MEDS: oxyCODONE-APAP 10-325MG 1 EACH TAB PO SCH (08:02)
[2020-04-03] MEDS: GABAPENTIN 400 MG CAP PO SCH (08:02)
[2020-04-03] MEDS: NICOTINE 21MG/24HR PATCH TRANSDERM SCH (08:03)
[2020-04-03] MEDS: VERAPAMIL SR 120 MG TABLET.ER PO SCH (08:03)
[2020-04-03] MEDS: busPIRone HCl 10 MG TAB PO SCH (08:03)
[2020-04-03] MEDS: HEPARIN SODIUM,PORCINE 5,000 UNIT/ML 1 ML VIAL SQ SCH (08:03)
[2020-04-03] MEDS: methocarbamoL 750 MG TAB PO SCH (08:03)
[2020-04-03] MEDS: MEMANTINE 10 MG TAB PO SCH (08:04)
[2020-04-03] MEDS: PARoxetine 20 MG TAB PO SCH (08:04)
[2020-04-03] MEDS: hydroCHLOROthiazide 25 MG TAB PO SCH (08:04)
[2020-04-03] MEDS: NON FORMULARY DRUG (Zinc Gluconate 50 MG Tab) PO SCH (08:06)
[2020-04-03] MEDS: FOLIC ACID 1 MG TAB PO SCH (08:06)
[2020-04-03] MEDS: TOPIRAMATE 25 MG TAB PO SCH (08:06)
[2020-04-03] MEDS: predniSONE 20 MG TAB PO SCH (08:06)
[2020-04-03] MEDS: MULTIVITAMINS, THERA 1 EACH TAB PO SCH (08:06)
[2020-04-03] MEDS: PANTOPRAZOLE 40 MG TABLET PO SCH (08:06)
[2020-04-03] MEDS: ASPIRIN 81 MG PO SCH (08:06)
[2020-04-03] MEDS: MONTELUKAST 10 MG TAB PO SCH (08:06)
[2020-04-03 09:04] VITALS: BP 130/82
[2020-04-03] MEDS: IPRATROPIUM-ALBUTEROL 3 ML NEB INHALATION PRN (09:16)
[2020-04-03] MEDS: SYMBICORT 160-4.5 MCG INHALER INHALATION SCH (09:16)
[2020-04-03] MEDS: BUTALB/APAP/CAFF 50-325-40MG TAB PO PRN (09:23)
[2020-04-03 09:32] VITALS: PULSE 88
[2020-04-03 13:52] VITALS: BMI 41.1
== END 2020-04-03 15:24 | disposition home health service (06) | DRG 103 ==
LOC: EC 04:25 → 1SOBS 05:51 → 5NMEDONC 07:49 → OBSVTOIN 03-28 07:47
PROVIDERS: ADMIT Internal Medicine; ATTEND Internal Medicine
PROC: 009U3ZX Drainage of Spinal Canal, Percutaneous Approach, Diagnostic (ICD-10-PCS; principal; 2020-03-27 15:45)
PROC: 3E0T3BZ Introduction of Anesthetic Agent into Peripheral Nerves and Plexi, Percutaneous Approach (ICD-10-PCS; 2020-04-03)
DX: G93.2 Benign intracranial hypertension (principal); Z68.41 Body mass index [BMI] 40.0-44.9, adult; D84.9 Immunodeficiency, unspecified; F33.9 Major depressive disorder, recurrent, unspecified; J96.11 Chronic respiratory failure with hypoxia; G50.0 Trigeminal neuralgia; G35 Multiple sclerosis; G62.9 Polyneuropathy, unspecified; G89.29 Other chronic pain; M54.81 Occipital neuralgia; E66.01 Morbid (severe) obesity due to excess calories; Z20.828 Contact with and (suspected) exposure to other viral communicable diseases; F17.210 Nicotine dependence, cigarettes, uncomplicated; F41.1 Generalized anxiety disorder; G25.81 Restless legs syndrome; G31.84 Mild cognitive impairment of uncertain or unknown etiology; H54.7 Unspecified visual loss; H91.90 Unspecified hearing loss, unspecified ear; H26.9 Unspecified cataract; M81.0 Age-related osteoporosis without current pathological fracture; M79.7 Fibromyalgia; K21.9 Gastro-esophageal reflux disease without esophagitis; J45.20 Mild intermittent asthma, uncomplicated; J44.9 Chronic obstructive pulmonary disease, unspecified; I11.9 Hypertensive heart disease without heart failure; Z79.51 Long term (current) use of inhaled steroids; Z79.82 Long term (current) use of aspirin; Z79.899 Other long term (current) drug therapy; Z82.3 Family history of stroke; Z82.41 Family history of sudden cardiac death; Z82.49 Family history of ischemic heart disease and other diseases of the circulatory system; Z85.42 Personal history of malignant neoplasm of other parts of uterus; Z90.710 Acquired absence of both cervix and uterus; Z99.81 Dependence on supplemental oxygen; Z87.01 Personal history of pneumonia (recurrent); Z92.3 Personal history of irradiation; F40.240 Claustrophobia; Z91.81 History of falling; Z79.891 Long term (current) use of opiate analgesic; Z88.8 Allergy status to other drugs, medicaments and biological substances
CPT/HCPCS: 36415; 62270; 64405; 70450; 70460; 70496; 70498; 70553; 71270; 80053; 81003; 82164; 82550; 82607; 82728; 82747; 82945; 83605; 83615; 83735; 83916; 84145; 84157; 84207; 84443; 85025; 85027; 85379; 85610; 85652; 85730; 86038; 86140; 86235; 86255; 86618; 87040; 87070; 87205; 87635; 88108; 89050; 93005; 94640; 94760; 96365; 96375; 96376; 99152; 99153; 99285

== ENCOUNTER → 2020-04-17 | Day surgery (SDC) | payer MEDICARE, OTHER ==
[2020-04-13 15:06] VITALS: BMI 41.1
[~2020-04-17] MED LIST: IV FLUID CONTINUATION 800 ML IV ONE; LACTATED RINGERS 1,000 ML IV SCH; MIDAZOLAM 2 MG/2 ML VIAL ONE; ROPIVACAINE 5MG/ML 20ML VIAL ONE; fentaNYL (PF) 50 MCG/ML 2 ML AMP ONE
[2020-04-17 12:57] VITALS: RESP 16; TEMP 98
--- NOTE | 2020-04-17 13:09 | P.PCN ---
Date of Procedure: 04/17/20 Surgeon: Niall Calloway Pathology: none sent Condition: stable Disposition: PACU Description of Procedure: Pre-operative diagnosis: 1- Bilateral occipital neuralgea 2-multiple sclerosis Post Operative Diagnosis 1- Bilateral occipital neuralgea 2-multiple sclerosis Procedure: 1- Bilateral occipital nerve block ANESTHESIA: Conscious sedation with Versed. and fentanyl mi Patient is ALLERGIC to dexamethasone and steroids in general EBL: Minimal PROCEDURE INDICATION: The patient with neck pain and headache secondary to occipital neuralgea unresponsive to conservative treatments. PROCEDURE DESCRIPTION / TECHNIQUE: The patient was seen and identified in the preoperative area. Risks, benefits, complications, and alternatives were discussed with the patient, the patient agreed to proceed with the procedure and signed the consent. IV was started. Vital signs remained stable throughout the procedure. Patient was taken to the OR and time out was completed. The patient was placed in the prone position on the procedure table. The cervical area and right occiptial area were prepped with chloraprep. Critical pause was taken. Vital signs were closely monitored during the procedure. Conscious sedation was used during the procedure to decrease patients anxiety. The the occipital exuberance and superior nuchal line were identified on the right side of the occiput. The greater occipital nerve location was estimated to be medial to the occipital artery and one third of the distance between the occipital exuberance and the right mastoid and the lesser occipital nerve was about two thirds of the distance between the occipital exuberance and the right mastoid on the superior nuchal line. I used 25-gauge 1-1/2 inch needle to go through the skin at these 2 points and infiltrate 2.5 MLS of a solution of 3 MLS ropivacaine 0.5%. The solution was infiltrated down to the periosteum.The same procedure was repeated on the left side. Patient tolerated procedure well.
[2020-04-17 13:50] VITALS: BP 109/76; PULSE 97
== END ==
LOC: ORPAIN 12:20
PROVIDERS: ATTEND Anesthesiology
DX: M54.81 Occipital neuralgia (principal); G35 Multiple sclerosis; E66.9 Obesity, unspecified; Z68.41 Body mass index [BMI] 40.0-44.9, adult; Z88.8 Allergy status to other drugs, medicaments and biological substances
CPT/HCPCS: 64405; J2250; J3010; J2795

== ENCOUNTER → 2020-05-23 | Outpatient (CLI) | payer MEDICARE, OTHER ==
[2020-05-23 13:16] VITALS: BP 112/78; PULSE 105; RESP 18; TEMP 98
--- NOTE | 2020-05-23 13:37 | P.PN ---
Subjective Progress Note Date: 05/23/20 This is follow-up visit for this 54 years old female, was seen previously as an inpatient secondary to headache, and she is diagnosed with pseudotumor cerebri, and multiple sclerosis, and severe headache, and occipital neuralgia ,previously well have an occipital nerve block x2 , and the procedure helped her headache, she needed to the complaining of different issues, she is having severe low back pain, patient reported that it's chronic started several years ago, and she was treated previously at different pain clinic (Dr. Ramirez ), patient reported no back pain is constant and severe interferes with the quality of life, radiated to the lower extremity associated with numbness and tingling sensation, she feels some weakness in her left lower extremity and she uses a cane to ambulate, and also where she was wheelchair. Objective - Vital Signs Vital signs: Vital Signs Temp 98.0 F 05/23/20 13:13 Pulse 105 H 05/23/20 13:13 Resp 18 05/23/20 13:13 BP 112/78 05/23/20 13:13 Pulse Ox 94 L 05/23/20 13:13 - Exam Physical Examinations : -Constitutiona : Cooperative , not in acute distress . -HEENT : nech : supple , no Lymphadenopathy , normal thyroid size . : eyes : no ptosis , no icterus, no photophobia . - neurologic : Cranial nerve II to XII intact , no focal neurological deffecit . -psychatric : alert , oriented X 3 , appropriate affect , intact judgment and insight . -Lymphatic : no Lymphadenopathy . - musculoskeltal : . Lumber spine moter stegnth lower extremities ,thigh and legs 5/5 Right side , 3-4/5 Left side deep tendon reflexes : normal Knee Jerk , normal ankle Jerk lumber facet Loading Test =positive Right , positive Left Range of motion of the lumbar spine Flexion 30 degrees, extension 10 degrees strait leg raising test = positive at 30 degree Fabere test= positive Right , and positive LT . Sever tenderness over the Sacroiliac joint on the Right , and Left sides Gaenslen test= positive right ,and positive left . Seated flexion test= positive right ,and positive Left . MRI of the lumbar spine= multilevel lumbar bulging disc disease multilevel lumbar facet arthropathy, and multilevel foraminal stenosis Assessment and Plan Plan: Assessment and plan=1-lumbar spondylosis with lumbar facet arthropathy without myelopathy. 2-lumbar degenerative disc disease. 3-bilateral sacroiliitis. 4-occipital neuralgia. 5-multiple sclerosis. Patient will be good candidate diagnostic medial branch block lumbar area at L3, L4 ,L5 ( L4-5 , L5-S1 facet ) - PQRS measures = - Patient's medications are documented in the chart. -Tobacco use is positive, and counseling.Given. -Patient's has not received pneumococcal vaccine. -Advanced care planning discussed, patient not eligible. -Opiate contract not signed. -Pain positive and follow-up visit/procedure is scheduled. -Patient's blood pressure measured [ 112/78] , and documented in the record ,and patient will follow up with the primary care. -Patient's weight was measured and body mass index [ ] above the normal limits and counseling was done. and patient instructed to follow-up with the primary care physician. -Patient was not identified as an unhealthy alcohol user Time with Patient: Less than 30
== END | disposition home or self-care (01) ==
LOC: PNWHC3 12:55
PROVIDERS: ATTEND Specialist
DX: M51.36 Other intervertebral disc degeneration, lumbar region (principal); M47.816 Spondylosis without myelopathy or radiculopathy, lumbar region; M46.1 Sacroiliitis, not elsewhere classified; M54.81 Occipital neuralgia; G35 Multiple sclerosis
CPT/HCPCS: 99211

== ENCOUNTER → 2020-06-08 | Outpatient (CLI) | payer MEDICARE, OTHER ==
--- NOTE | 2020-06-08 13:15 | CT ---
EXAMINATION TYPE: CT soft tissue neck w con DATE OF EXAM: 06/08/2020 HISTORY: Swelling mass of neck, dysphasia upper patient. COMPARISON: CT cervical spine July 29, 2019 CT DLP: 881 mGycm. Automated Exposure Control for Dose Reduction was Utilized. TECHNIQUE: CT scan of the neck is performed with IV Contrast, patient injected with 100 mL of Isovue 300, axial images are obtained, coronal and sagittal reformatted images are reviewed. FINDINGS: Airway: Patent oropharyngeal airway extending into the hypopharyngeal airway. Region of Epiglottis an d vallecula appears within normal limits. No suspicious prevertebral soft tissue swelling. Thyroid gl and appears within normal limits. Visualized lung apices are clear. Parotid/submandibular glands: No gross abnormality seen. Carotid/Vascular Structures: No significant plaque or stenosis at carotid bulb level bilaterally . Osseous Structures: No significant abnormality. Other: No suspicious greater than 1 cm neck adenopathy. IMPRESSION: No significant abnormality is seen to account for patient's symptoms.
== END | disposition home or self-care (01) ==
LOC: RADCTMAIN 11:24
PROVIDERS: ATTEND Otolaryngology
DX: R22.1 Localized swelling, mass and lump, neck (principal)
CPT/HCPCS: 70491; Q9967

== ENCOUNTER 2020-06-15 11:56 | Day surgery (SDC) | payer MEDICARE, OTHER ==
[2020-06-14 11:01] VITALS: BMI 43.0
[~2020-06-15 11:56] MED LIST changes: -IV FLUID CONTINUATION 800 ML IV ONE; -MIDAZOLAM 2 MG/2 ML VIAL ONE; -ROPIVACAINE 5MG/ML 20ML VIAL ONE; -fentaNYL (PF) 50 MCG/ML 2 ML AMP ONE
[2020-06-15 12:34] VITALS: RESP 16; TEMP 97.8
[2020-06-15] MEDS ORDERED: fentaNYL (PF) 50 MCG/ML 2 ML AMP ONE (12:49)
[2020-06-15] MEDS ORDERED: ROPIVACAINE 5MG/ML 20ML VIAL ONE (12:49)
[2020-06-15] MEDS ORDERED: MIDAZOLAM 2 MG/2 ML VIAL ONE (12:49)
--- NOTE | 2020-06-15 13:07 | P.PCN ---
Date of Procedure: 06/15/20 Surgeon: Niall Calloway Pathology: none sent Condition: stable Disposition: PACU Description of Procedure: PREOPERATIVE DIAGNOSIS : 1- Lumbar spondylosis with Facet Arthropathy without myelopathy . 2- Lumber degenerative disc disease3-morbid obesity4-MS POSTOPERATIVE DIAGNOSIS: Same as above PROCEDURE: Diagnostic bilateral L4 -5 , and L5-S1 medial branch block under fluoroscopy Physician: Niall Calloway MD ANESTHESIA: Local with 1% lidocaine; and IV moderate conscious sedation by the anesthesia Department . EBL: Negligible COMPLICATION: None. PROCEDURE INDICATION: Chronic low back pain secondary to Facet arthropathy unresponsive to conservative treatment. PROCEDURE DESCRIPTION: the patient was seen and identified in the preop holding area , risks and benefits and possible complications of the procedure and alternatives were discussed with the patient, and the patient agreed to proceed with the procedure and signed the consent. IV was started and vital signs monitored during the procedure and fluoroscopy was used to maximize the benefit and accuracy of the needle placement, sedation was given to decrease patient anxiety, patient was taken to the procedure room and placed in prone position vital signs monitored. The patient was brought into the procedure room and placed in prone position. Skin was prepped with Chloraprep and draped in a sterile manner. Lidocaine 1% was used to numb the skin up at the target points that were chosen as follows: at the L5-S1 level which corresponds to the dorsal ramus of L5 the target points were at the superior medial aspect of the sacral ala on each side of the spine on the AP view of fluoroscopy, and for the L3 and L4 medial branches the target points were the connection between the transverse process and the superior to go process of L4 and L5 respectively on the oblique views of fluoroscopy. I used 22-gauge 5 inch Quincke spinal needles for this procedure and after contacting bon at the target points mentioned above I injected 1 mL of Ropivacaine 0.5% PF . Patient tolerated procedure well. At the end of the procedure the needles removed and a bandage applied after the skin was cleaned the cleaning solution. patient was then taken to the recovery room in stable condition and monitored in the recovery room for 20-30 minutes and discharged home in stable condition after discharge criteria met . The patient had a possible reaction to steroids previously and that's why I did not use any steroids today. A copy of the needle placement picture was saved to the C-arm machine.
[2020-06-15] MEDS ORDERED: IV FLUID CONTINUATION 1,000 ML IV ONE (13:11)
[2020-06-15 13:30] VITALS: BP 105/52; PULSE 94
--- NOTE | 2020-06-15 14:08 | FL ---
EXAMINATION TYPE: FL guided pain mgmt statistic DATE OF EXAM: 06/15/2020 HISTORY: Fluoroscopy time 5 seconds of fluoroscopy provided. IMPRESSION: 1. Fluoroscopy time.
== END 2020-06-15 13:41 ==
LOC: ORPAIN 11:56
PROVIDERS: ATTEND Anesthesiology
DX: G89.29 Other chronic pain (principal); M47.816 Spondylosis without myelopathy or radiculopathy, lumbar region; M51.36 Other intervertebral disc degeneration, lumbar region; E66.01 Morbid (severe) obesity due to excess calories; G35 Multiple sclerosis; I10 Essential (primary) hypertension; J44.9 Chronic obstructive pulmonary disease, unspecified; F17.210 Nicotine dependence, cigarettes, uncomplicated; M79.7 Fibromyalgia; Z68.41 Body mass index [BMI] 40.0-44.9, adult; Z88.8 Allergy status to other drugs, medicaments and biological substances; Z79.899 Other long term (current) drug therapy; Z79.51 Long term (current) use of inhaled steroids; Z79.82 Long term (current) use of aspirin; Z90.710 Acquired absence of both cervix and uterus
CPT/HCPCS: 64493; 64494; J2250; J3010; J2795

== ENCOUNTER → 2020-07-02 | Outpatient (CLI) | payer MEDICARE, OTHER ==
[2020-07-02 08:38] VITALS: BP 133/81; PULSE 105; RESP 18; TEMP 98.3
--- NOTE | 2020-07-02 08:50 | P.PAINPG ---
Subjective Progress Note Date: 07/02/20 Subjective Progress Note Date: 07/02/20 This is follow-up visit for this 54 years old female, was seen previously as an inpatient secondary to headache, and she is diagnosed with pseudotumor cerebri, and multiple sclerosis, and severe headache, and occipital neuralgia ,previously well have an occipital nerve block x2 , and the procedure helped her headache. In her last visit she was complaining of low back pain, treated inthe past by Dr Ramirez, we recently performed medial branch blocks bilaterally at L4-5 and L5- S1. She notes that she had some good relief with the last medial branch blocks (>80% initially), however at the end of the day was only 40% relief. She is eager to proceed with the nerve burning understands she is to go through this process first. Just wanted to discuss overall process of medial branch blocks and how we proceed to radiorequency ablation. She also notes pain in her neck, she notes that with Dr. Ramirez she had what sounds like medial branch blocks in the past and was mostly get radiofrequency ablations there but she got too sick and never went through with it. - Exam Physical Examinations : -Constitutiona : Cooperative , not in acute distress . -HEENT : nech : supple , no Lymphadenopathy , normal thyroid size . : eyes : no ptosis , no icterus, no photophobia . - neurologic : Cranial nerve II to XII intact , no focal neurological deffecit . -psychatric : alert , oriented X 3 , appropriate affect , intact judgment and insight . -Lymphatic : no Lymphadenopathy . - musculoskeltal : . Lumber spine moter stegnth lower extremities ,thigh and legs 5/5 Right side , 3-4/5 Left side deep tendon reflexes : normal Knee Jerk , normal ankle Jerk lumber facet Loading Test =positive Right , positive Left Range of motion of the lumbar spine Flexion 30 degrees, extension 10 degrees strait leg raising test = positive at 30 degree Fabere test= positive Right , and positive LT . Sever tenderness over the Sacroiliac joint on the Right , and Left sides Gaenslen test= positive right ,and positive left . Seated flexion test= positive right ,and positive Left . MRI of the lumbar spine= multilevel lumbar bulging disc disease multilevel lumbar facet arthropathy, and multilevel foraminal stenosis Assessment and Plan Plan: Assessment and plan=1-lumbar spondylosis with lumbar facet arthropathy without myelopathy. 2-lumbar degenerative disc disease. 3-bilateral sacroiliitis. 4-occipital neuralgia. 5-multiple sclerosis. - Had a long discussion with the patient regarding the diagnostic procedures with the medial branch blocks. I noted that we do two rounds of these MBB's to minimize false positives and to ensure that we are ablating the correct nerves. We'll proceed with a second round of medial branch blocks at L4-L5 and L5-S1. -In the future we can consider cervical medial branch blocks as well. She also had good relief from occipital nerve blocks. We can repeat these in the future as well - PQRS measures = - Patient's medications are documented in the chart. -Tobacco use is positive, and counseling.Given. -Patient's has not received pneumococcal vaccine. -Advanced care planning discussed, patient not eligible. -Opiate contract not signed. -Pain positive and follow-up visit/procedure is scheduled. -Patient's blood pressure measured [ 112/78] , and documented in the record ,and patient will follow up with the primary care. -Patient's weight was measured and body mass index [ ] above the normal limits and counseling was done. and patient instructed to follow-up with the primary care physician. -Patient was not identified as an unhealthy alcohol user I spent 32 minutes with this patient encounter. PQRS Measure Charge Sheet PQRS Narrative: Smoking Status Current every day smoker Pain Intensity [Back] 7 Home Medications: Ambulatory Orders Aspirin 81 mg PO DAILY 02/20/14 LORazepam [Ativan] 1 mg PO TID PRN 02/20/14 Verapamil HCl [Calan] 120 mg PO DAILY 02/20/14 Butalb/APAP/Caff 50-325-40Mg [Fioricet 50-325-40] 1 tab PO Q8H PRN 03/25/17 oxyCODONE-APAP 10-325MG [Percocet 10-325 mg] 1 tab PO TID 01/28/18 rOPINIRole HCL [Requip] 0.25 mg PO TID #90 tab 01/31/18 Budesonide/Formoterol Fumarate [Symbicort 160-4.5 Mcg Inhaler] 2 puff INHALATION RT-BID 05/06/18 Cholecalciferol [Vitamin D3 (25 Mcg = 1000 Iu)] 2,000 unit PO DAILY 05/07/18 Multivitamins, Thera [Multivitamin (formulary)] 1 tab PO DAILY 05/07/18 PARoxetine [Paxil] 40 mg PO DAILY tab 05/09/18 Pantoprazole Sodium [Protonix] 40 mg PO BID 10/31/18 Ipratropium-Albuterol Nebulize [Duoneb 0.5 mg-3 mg/3 ml Soln] 3 ml INHALATION RT-QID PRN 11/22/18 Memantine [Namenda] 10 mg PO BID 11/22/18 Montelukast [Singulair] 10 mg PO DAILY 11/22/18 hydroCHLOROthiazide [Hydrodiuril] 25 mg PO DAILY tab 11/26/18 Fluticasone Nasal [place] [Flonase Nasal [place]] 2 spray EA NOSTRIL DAILY PRN 04/28/19 Methocarbamol [Robaxin-750] 750 mg PO TID 04/28/19 Folic Acid 1 mg PO DAILY #30 tab 05/02/19 busPIRone HCl [Buspar] 10 mg PO TID #90 tab 05/02/19 Albuterol Sulfate [Ventolin HFA] 1 - 2 puff INHALATION RT-Q6H PRN 08/09/19 Nystatin 100,000 Unit/ml Susp [Mycostatin Oral Susp] 500,000 unit PO QID PRN 09/04/19 Ascorbic Acid [Vitamin C] 1,000 mg PO DAILY 01/30/20 Docusate [Colace] 100 mg PO DAILY PRN 01/30/20 Zinc Gluconate [Zinc] 25 mg PO DAILY 01/30/20 Diclofenac Sodium Gel [Voltaren Gel] 2 gm TOPICAL QID PRN #0 03/26/20 Ear Drops (Unknown) 1 dose LEFT EAR DIRECTED PRN 03/26/20 Gabapentin [Neurontin] 800 mg PO TID #0 04/02/20 Elderberry Fruit and Flower [Black Elderberry 575 mg Cap] 1 each PO DAILY 06/14/20 Topiramate [Topamax] 100 mg PO BID 06/14/20 Turmeric Root Extract [Turmeric] 500 mg PO DAILY 06/14/20 Controlled Substance Measures - Controlled Substance Measures Is patient prescribed a controlled substance at discharge?: No
== END ==
LOC: PNWHC3 08:20
PROVIDERS: ATTEND Anesthesiology
DX: M54.81 Occipital neuralgia (principal); M47.816 Spondylosis without myelopathy or radiculopathy, lumbar region; G35 Multiple sclerosis; M51.36 Other intervertebral disc degeneration, lumbar region; M46.1 Sacroiliitis, not elsewhere classified; F17.200 Nicotine dependence, unspecified, uncomplicated
CPT/HCPCS: 99211

== ENCOUNTER 2020-08-03 12:09 | Emergency (ER) | payer MEDICARE, OTHER ==
[2020-08-03 12:22] VITALS: RESP 18; TEMP 98.8
[2020-08-03] MEDS ORDERED: KETOROLAC 15 MG/ML 1 ML VIAL IVP STA (12:36)
[2020-08-03] MEDS ORDERED: MORPHINE SULFATE 4 MG/ML SYRINGE IVP STA (12:38)
--- NOTE | 2020-08-03 12:52 | ED ---
General Adult HPI - General Chief complaint: Upper Respiratory Infection Stated complaint: Headache, chest pain, fever Time Seen by Provider: 08/03/20 12:15 Source: patient, EMS, RN notes reviewed, old records reviewed Mode of arrival: EMS - History of Present Illness Initial comments: 54-year-old female presenting for evaluation of headache, neck pain, chest pain. Symptoms have been ongoing for the past one week. She states that approximately 2 weeks ago she started feeling unwell after receiving her first coronavirus vaccine. She does have a history of occipital neuralgia and states that her headache is predominantly occipital and into her neck. She does follow with pain management regarding her occipital neuralgia as well as recent evaluation by ENT for neck swelling with CT soft tissue neck. She states that she is on 2 L oxygen nasal cannula and has had some increasing cough. No significant dyspnea. She does report low-grade fevers and this is been consis tent since the time of her vaccination 2 weeks ago. No central chest pain. No abdominal pain nausea vomiting. - Related Data Home Medications Medication Instructions Recorded Confirmed Aspirin 81 mg PO DAILY 02/20/14 08/03/20 LORazepam [Ativan] 1 mg PO TID PRN 02/20/14 08/03/20 Verapamil HCl [Calan] 120 mg PO DAILY 02/20/14 08/03/20 Butalb/APAP/Caff 50-325-40Mg 1 tab PO Q8H PRN 03/25/17 08/03/20 [Fioricet 50-325-40] Budesonide/Formoterol Fumarate 2 puff INHALATION RT-BID 05/06/18 08/03/20 [Symbicort 160-4.5 Mcg Inhaler] Cholecalciferol [Vitamin D3 (25 2,000 unit PO DAILY 05/07/18 08/03/20 Mcg = 1000 Iu)] Multivitamins, Thera [Multivitamin 1 tab PO DAILY 05/07/18 08/03/20 (formulary)] Pantoprazole Sodium [Protonix] 40 mg PO BID 10/31/18 08/03/20 Ipratropium-Albuterol Nebulize 3 ml INHALATION RT-QID PRN 11/22/18 08/03/20 [Duoneb 0.5 mg-3 mg/3 ml Soln] Memantine [Namenda] 10 mg PO BID 11/22/18 08/03/20 Montelukast [Singulair] 10 mg PO DAILY 11/22/18 08/03/20 Fluticasone Nasal [place] [Flonase 2 spray EA NOSTRIL DAILY PRN 04/28/19 08/03/20 Nasal [place]] Methocarbamol [Robaxin-750] 750 mg PO TID 04/28/19 08/03/20 Albuterol Sulfate [Ventolin HFA] 1 - 2 puff INHALATION RT-Q6H PRN 08/09/19 08/03/20 Nystatin 100,000 Unit/ml Susp 500,000 unit PO QID PRN 09/04/19 08/03/20 [Mycostatin Oral Susp] Ascorbic Acid [Vitamin C] 1,000 mg PO DAILY 01/30/20 08/03/20 Docusate [Colace] 100 mg PO DAILY PRN 01/30/20 08/03/20 Zinc Gluconate [Zinc] 25 mg PO DAILY 01/30/20 08/03/20 Diclofenac Sodium Gel [Voltaren 2 gm TOPICAL QID PRN #0 03/26/20 08/03/20 Gel] Ear Drops (Unknown) 1 dose LEFT EAR DIRECTED PRN 03/26/20 08/03/20 Elderberry Fruit and Flower [Black 1 cap PO DAILY 06/14/20 08/03/20 Elderberry 575 mg Cap] Topiramate [Topamax] 100 mg PO BID 06/14/20 08/03/20 Turmeric Root Extract [Turmeric] 500 mg PO DAILY 06/14/20 08/03/20 oxyCODONE HCL/ACETAMINOPHEN 1 tab PO TID PRN 08/03/20 08/03/20 [Percocet 7.5-325 mg] Previous Rx's Medication Instructions Recorded rOPINIRole HCL [Requip] 0.25 mg PO TID #90 tab 01/31/18 PARoxetine [Paxil] 40 mg PO DAILY tab 05/09/18 hydroCHLOROthiazide [Hydrodiuril] 25 mg PO DAILY tab 11/26/18 Folic Acid 1 mg PO DAILY #30 tab 05/02/19 busPIRone HCl [Buspar] 10 mg PO TID #90 tab 05/02/19 Gabapentin [Neurontin] 800 mg PO TID #0 04/02/20 Allergies Allergy/AdvReac Type Severity Reaction Status Date / Time baclofen AdvReac URINARY Verified 08/03/20 13:31 ISSUES dexamethasone [From Decadron] AdvReac "THOMPSON Verified 08/03/20 13:31 SKIN"/DEHYDRATION Review of Systems ROS Statement: Those systems with pertinent positive or pertinent negative responses have been documented in the HPI. ROS Other: All systems not noted in ROS Statement are negative. Past Medical History Past Medical History: Asthma, Cancer, COPD, Eye Disorder, Fibromyalgia, GERD/Reflux, Hearing Disorder / Deafness, Hypertension, Memory Impairment, Neurologic Disorder, Osteoarthritis (OA), Pneumonia, Syncope Additional Past Medical History / Comment(s): MS relapsing/remitting type, chronic bilateral eye pain/optic neuritis/ poor vision, cataracts bilaterally, chronic occipital neuralgia, osteoporosis, RLS, chronic hypoxic respiratory failure with home oxygen 2L/[place] prn, chronic bronchitis, immunocompromised, elevated blood sugar with steroid use, uterine cancer with hysterectomy/radiation, heart murmur, mild cognitive impairment, chronic vertigo, falls, rheumatic fever as child, tinnitis bilaterally, allergic rhinitis. History of Any Multi-Drug Resistant Organisms: None Reported Past Surgical History: Bladder Surgery, Heart Catheterization, Hysterectomy Additional Past Surgical History / Comment(s): Nerve blocks, bladder suspension. PAIN CLINIC Past Anesthesia/Blood Transfusion Reactions: No Reported Reaction Additional Past Anesthesia/Blood Transfusion Reaction / Comment(s): mild clausterphobia Past Psychological History: Anxiety, Depression Smoking Status: Current every day smoker Past Alcohol Use History: Rare Past Drug Use History: None Reported - Past Family History Mother Family Medical History: CVA/TIA, Myocardial Infarction ([place]) Additional Family Medical History / Comment(s): Mother is alive at age 75 with history of brain aneurysm, 3 strokes and 2 myocardial infarctions. Brain aneurysms run on mother's side of family Father Additional Family Medical History / Comment(s): Father at age 72 from a cardiac arrest thought to be due to a myocardial infarction. Sister(s) Additional Family Medical History / Comment(s): Patient has 2 sisters with no major medical problems. Patient does not have any brothers. Patient has 2 adult children with no major medical problems. Patient is only family member with MS. General Exam General appearance: alert, in no apparent distress Head exam: Present: atraumatic, normocephalic Neck exam: Present: normal inspection, tenderness (Some occipital and paraspinal tenderness.) Respiratory exam: Present: decreased breath sounds. Absent: respiratory distress, wheezes Cardiovascular Exam: Present: regular rate, normal rhythm GI/Abdominal exam: Present: soft. Absent: distended, tenderness, guarding, rebound Extremities exam: Present: normal capillary refill, pedal edema Neurological exam: Present: alert. Absent: motor sensory deficit Psychiatric exam: Present: normal affect, normal mood Skin exam: Present: warm, dry, intact. Absent: cyanosis, diaphoretic Course Vital Signs 08/03/20 08/03/20 12:18 14:53 Temperature 98.8 F Pulse Rate 100 90 Respiratory 18 18 Rate Blood Pressure 114/79 107/62 O2 Sat by Pulse 94 L 98 Oximetry EKG Findings - EKG Comments: EKG Findings:: Normal sinus rhythm, left axis, no ST segment elevation T-wave flattening in the precordial leads ventricular rate of 91, ME interval 156, QRS 80, QTC 560 prolonged Medical Decision Making - Medical Decision Making 54-year-old female who does follow with a pain clinic for occipital neuralgia presenting with neck pain, occipital headache. She additionally had complained of some frontal Swelling and was recently evaluated by ENT including soft tissue CT of the neck. This showed no acute abnormalities. Patient's symptoms have been ongoing for some time. Patient has patient given Toradol and morphine with improvement in pain. She has mild leukocytosis which is chronic, stable hemoglobin, normal labs otherwise. Coronavirus is negative, chest x-rays negative for acute cardiopulmonary findings. - Lab Data Result diagrams: 08/03/20 12:49 08/03/20 12:49 Lab Results 08/03/20 08/03/20 08/03/20 Range/Units 12:49 12:49 12:49 WBC 12.7 H (3.8-10.6) k/uL RBC 4.74 (3.80-5.40) m/uL Hgb 15.1 (11.4-16.0) gm/dL Hct 46.9 H (34.0-46.0) % MCV 99.0 (80.0-100.0) fL MCH 31.8 (25.0-35.0) pg MCHC 32.1 (31.0-37.0) g/dL RDW 13.5 (11.5-15.5) % Plt Count 225 (150-450) k/uL MPV 7.9 Neutrophils % 69 % Lymphocytes % 23 % Monocytes % 4 % Eosinophils % 2 % Basophils % 0 % Neutrophils # 8.8 H (1.3-7.7) k/uL Lymphocytes # 3.0 (1.0-4.8) k/uL Monocytes # 0.5 (0-1.0) k/uL Eosinophils # 0.2 (0-0.7) k/uL Basophils # 0.0 (0-0.2) k/uL Hypochromasia Slight PT 10.8 (9.0-12.0) sec INR 1.0 (<1.2) APTT 22.4 (22.0-30.0) sec Sodium 138 (137-145) mmol/L Potassium 3.5 (3.5-5.1) mmol/L Chloride 94 L (98-107) mmol/L Carbon Dioxide 37 H (22-30) mmol/L Anion Gap 7 mmol/L BUN 7 (7-17) mg/dL Creatinine 0.56 (0.52-1.04) mg/dL Est GFR (CKD-EPI)AfAm >90 (>60 ml/min/1.73 sqM) Est GFR (CKD-EPI)NonAf >90 (>60 ml/min/1.73 sqM) Glucose 110 H (74-99) mg/dL Calcium 8.6 (8.4-10.2) mg/dL Magnesium 1.8 (1.6-2.3) mg/dL Total Bilirubin 0.6 (0.2-1.3) mg/dL AST 60 H (14-36) U/L ALT 48 H (4-34) U/L Alkaline Phosphatase 90 (38-126) U/L Troponin I (0.000-0.034) ng/mL Total Protein 6.2 L (6.3-8.2) g/dL Albumin 4.0 (3.5-5.0) g/dL Coronavirus (PCR) (Not Detectd) 08/03/20 08/03/20 Range/Units 12:49 13:32 WBC (3.8-10.6) k/uL RBC (3.80-5.40) m/uL Hgb (11.4-16.0) gm/dL Hct (34.0-46.0) % MCV (80.0-100.0) fL MCH (25.0-35.0) pg MCHC (31.0-37.0) g/dL RDW (11.5-15.5) % Plt Count (150-450) k/uL MPV Neutrophils % % Lymphocytes % % Monocytes % % Eosinophils % % Basophils % % Neutrophils # (1.3-7.7) k/uL Lymphocytes # (1.0-4.8) k/uL Monocytes # (0-1.0) k/uL Eosinophils # (0-0.7) k/uL Basophils # (0-0.2) k/uL Hypochromasia PT (9.0-12.0) sec INR (<1.2) APTT (22.0-30.0) sec Sodium (137-145) mmol/L Potassium (3.5-5.1) mmol/L Chloride (98-107) mmol/L Carbon Dioxide (22-30) mmol/L Anion Gap mmol/L BUN (7-17) mg/dL Creatinine (0.52-1.04) mg/dL Est GFR (CKD-EPI)AfAm (>60 ml/min/1.73 sqM) Est GFR (CKD-EPI)NonAf (>60 ml/min/1.73 sqM) Glucose (74-99) mg/dL Calcium (8.4-10.2) mg/dL Magnesium (1.6-2.3) mg/dL Total Bilirubin (0.2-1.3) mg/dL AST (14-36) U/L ALT (4-34) U/L Alkaline Phosphatase (38-126) U/L Troponin I <0.012 (0.000-0.034) ng/mL Total Protein (6.3-8.2) g/dL Albumin (3.5-5.0) g/dL Coronavirus (PCR) Not Detected (Not Detectd) Disposition Clinical Impression: Occipital neuritis Disposition: HOME SELF-CARE Condition: Good Instructions (If sedation given, give patient instructions): Pain Management (ED), Chronic Pain (ED) Additional Instructions: Please follow up with her orthopedic surgeon a pain specialist. Please return with worsening or changing symptoms. Is patient prescribed a controlled substance at d/c from ED?: No Referrals: Kilo Tabares MD [Primary Care Provider] - 1-2 days Time of Disposition: 15:12
[2020-08-03 13:18] LABS: Basophils % (A) 0 %; Eosinophils # (A) 0.2 k/uL (0-0.7); Eosinophils % (A) 2 %; HCT 46.9 % (34.0-46.0); HGB 15.1 gm/dL (11.4-16.0); Hypochromasia Slight; Lymphocytes % (A) 23 %; MCH 31.8 pg (25.0-35.0); MCHC 32.1 g/dL (31.0-37.0); Mean Platelet Volume 7.9; Monocytes # (A) 0.5 k/uL (0-1.0); Monocytes % (A) 4 %; Neutrophils # (A) 8.8 k/uL (1.3-7.7); Neutrophils % (A) 69 %; Platelet Count 225 k/uL (150-450); RBC 4.74 m/uL (3.80-5.40); RDW 13.5 % (11.5-15.5); WBC 12.7 k/uL (3.8-10.6)
--- NOTE | 2020-08-03 13:28 | XR ---
EXAMINATION TYPE: XR chest 2V DATE OF EXAM: 08/03/2020 COMPARISON: 02/01/2020 INDICATION: Chest pain TECHNIQUE: Frontal and lateral views of the chest are obtained. FINDINGS: The heart size is mildly prominent. The pulmonary vasculature is normal. The lungs are clear. IMPRESSION: 1. No acute pulmonary process. 2. Mild cardiomegaly, stable
[2020-08-03 13:32] LABS: Partial Thromboplastin Time 22.4 sec (22.0-30.0); Prothrombin Time 10.8 sec (9.0-12.0)
[2020-08-03 13:43] LABS: ALT 48 U/L (4-34); AST 60 U/L (14-36); African American GFR (CKD) >90 (>60 ml/min/1.73 sqM); Alkaline Phosphatase 90 U/L (38-126); Anion Gap 7 mmol/L; Blood Urea Nitrogen 7 mg/dL (7-17); Calcium 8.6 mg/dL (8.4-10.2); Carbon Dioxide 37 mmol/L (22-30); Chloride 94 mmol/L (98-107); Glucose 110 mg/dL (74-99); Magnesium 1.8 mg/dL (1.6-2.3); Non-African American GFR(CKD) >90 (>60 ml/min/1.73 sqM); Potassium 3.5 mmol/L (3.5-5.1); Sodium 138 mmol/L (137-145); Total Bilirubin 0.6 mg/dL (0.2-1.3); Total Protein 6.2 g/dL (6.3-8.2)
[2020-08-03 14:54] VITALS: BP 107/62; PULSE 90
== END 2020-08-03 16:05 | disposition home or self-care (01) ==
LOC: EC 12:09
DX: M54.81 Occipital neuralgia (principal); R07.9 Chest pain, unspecified; M54.2 Cervicalgia; R50.9 Fever, unspecified; I10 Essential (primary) hypertension; F41.9 Anxiety disorder, unspecified; F32.9 Major depressive disorder, single episode, unspecified; F17.200 Nicotine dependence, unspecified, uncomplicated; J44.9 Chronic obstructive pulmonary disease, unspecified; K21.9 Gastro-esophageal reflux disease without esophagitis; M19.90 Unspecified osteoarthritis, unspecified site; M79.7 Fibromyalgia; Z20.822 Contact with and (suspected) exposure to COVID-19; Z79.51 Long term (current) use of inhaled steroids; Z79.82 Long term (current) use of aspirin; Z79.899 Other long term (current) drug therapy
CPT/HCPCS: 36415; 93005; 80053; 83735; 84484; 85025; 85610; 85730; 87635; 71046; 99285; 96374; 96375; J2270; J1885

== ENCOUNTER 2020-08-21 07:07 | Inpatient (IN) | payer MEDICARE, OTHER ==
[2020-08-21] MEDS ORDERED: HYDROmorphone 1 MG/ML 1 ML SYRINGE IVP STA (07:35)
[2020-08-21] MEDS ORDERED: HYDROCORTISONE SUCCINATE 100 MG/2 ML VIAL IV STA (07:35)
[2020-08-21] MEDS ORDERED: ACETAMINOPHEN TAB 325 MG TAB PO STA (07:44)
--- NOTE | 2020-08-21 07:48 | ED ---
Headache HPI - General Chief Complaint: Headache Stated Complaint: headache Time Seen by Provider: 08/21/20 07:10 Source: RN notes reviewed Mode of arrival: EMS Limitations: no limitations - History of Present Illness Initial Comments: This is a 54-year-old female with a history of multiple medical issues including multiple sclerosis and trigeminal neuralgia who presents with complaints of the onset of a headache and the 17th of this month burning in nature 20/02 severity she also been dropping things. She also states she had a temperature of over 100. She did recently get the second COVID-19 shot, the Moderna she also states she's had decreased oral intake for the past several days she is unable to keep food and water down. Office and shortness of breath also. No overt cough no earache sore throat rhinorrhea dysuria reported. MD Complaint: headache, other - Related Data Home Medications Medication Instructions Recorded Confirmed Aspirin 81 mg PO DAILY 02/20/14 08/21/20 LORazepam [Ativan] 1 mg PO TID PRN 02/20/14 08/21/20 Verapamil HCl [Calan] 120 mg PO DAILY 02/20/14 08/21/20 Butalb/APAP/Caff 50-325-40Mg 1 tab PO Q8H PRN 03/25/17 08/21/20 [Fioricet 50-325-40] Budesonide/Formoterol Fumarate 2 puff INHALATION RT-BID 05/06/18 08/21/20 [Symbicort 160-4.5 Mcg Inhaler] Cholecalciferol [Vitamin D3 (25 50 mcg PO DAILY 05/07/18 08/21/20 Mcg = 1000 Iu)] Multivitamins, Thera [Multivitamin 1 tab PO DAILY 05/07/18 08/21/20 (formulary)] Pantoprazole Sodium [Protonix] 40 mg PO BID 10/31/18 08/21/20 Ipratropium-Albuterol Nebulize 3 ml INHALATION RT-QID PRN 11/22/18 08/21/20 [Duoneb 0.5 mg-3 mg/3 ml Soln] Memantine [Namenda] 10 mg PO BID 11/22/18 08/21/20 Montelukast [Singulair] 10 mg PO DAILY 11/22/18 08/21/20 Fluticasone Nasal [place] [Flonase 2 spray EA NOSTRIL DAILY PRN 04/28/19 08/21/20 Nasal [place]] Methocarbamol [Robaxin-750] 750 mg PO TID 04/28/19 08/21/20 Albuterol Sulfate [Ventolin HFA] 1 - 2 puff INHALATION RT-Q6H PRN 08/09/19 08/21/20 Ascorbic Acid [Vitamin C] 1,000 mg PO DAILY 01/30/20 08/21/20 Docusate [Colace] 100 mg PO DAILY PRN 01/30/20 08/21/20 Zinc Gluconate [Zinc] 25 mg PO DAILY 01/30/20 08/21/20 Diclofenac Sodium Gel [Voltaren 2 gm TOPICAL QID PRN #0 03/26/20 08/21/20 Gel] Ear Drops (Unknown) 1 dose LEFT EAR DIRECTED PRN 03/26/20 08/21/20 Elderberry Fruit and Flower [Black 1 cap PO DAILY 06/14/20 08/21/20 Elderberry 575 mg Cap] Turmeric Root Extract [Turmeric] 500 mg PO DAILY 06/14/20 08/21/20 oxyCODONE HCL/ACETAMINOPHEN 1 tab PO TID PRN 08/03/20 08/21/20 [Percocet 7.5-325 mg] Gabapentin 800 mg PO TID 08/21/20 08/21/20 Topiramate [Topamax] 100 mg PO BID 08/21/20 08/21/20 Previous Rx's Medication Instructions Recorded rOPINIRole HCL [Requip] 0.25 mg PO TID #90 tab 01/31/18 PARoxetine [Paxil] 40 mg PO DAILY tab 05/09/18 hydroCHLOROthiazide [Hydrodiuril] 25 mg PO DAILY tab 11/26/18 Folic Acid 1 mg PO DAILY #30 tab 05/02/19 busPIRone HCl [Buspar] 10 mg PO TID #90 tab 05/02/19 Allergies Allergy/AdvReac Type Severity Reaction Status Date / Time baclofen AdvReac URINARY Verified 08/21/20 10:38 ISSUES dexamethasone [From Decadron] AdvReac "THOMPSON Verified 08/21/20 10:38 SKIN"/DEHYDRATION Review of Systems ROS Statement: Those systems with pertinent positive or pertinent negative responses have been documented in the HPI. ROS Other: All systems not noted in ROS Statement are negative. Past Medical History Past Medical History: Asthma, Cancer, COPD, Eye Disorder, Fibromyalgia, GERD/Reflux, Hearing Disorder / Deafness, Hypertension, Memory Impairment, Neurologic Disorder, Osteoarthritis (OA), Pneumonia, Syncope Additional Past Medical History / Comment(s): MS relapsing/remitting type, chronic bilateral eye pain/optic neuritis/ poor vision, cataracts bilaterally, chronic occipital neuralgia, osteoporosis, RLS, chronic hypoxic respiratory failure with home oxygen 2L/[place] prn, chronic bronchitis, immunocompromised, el evated blood sugar with steroid use, uterine cancer with hysterectomy/radiation, heart murmur, mild cognitive impairment, chronic vertigo, falls, rheumatic fever as child, tinnitis bilaterally, allergic rhinitis. History of Any Multi-Drug Resistant Organisms: None Reported Past Surgical History: Bladder Surgery, Heart Catheterization, Hysterectomy Additional Past Surgical History / Comment(s): Nerve blocks, bladder suspension. PAIN CLINIC Past Anesthesia/Blood Transfusion Reactions: No Reported Reaction Additional Past Anesthesia/Blood Transfusion Reaction / Comment(s): mild clausterphobia Past Psychological History: Anxiety, Depression Smoking Status: Current every day smoker Past Alcohol Use History: Rare Past Drug Use History: None Reported - Past Family History Mother Family Medical History: CVA/TIA, Myocardial Infarction ([place]) Additional Family Medical History / Comment(s): Mother is alive at age 75 with history of brain aneurysm, 3 strokes and 2 myocardial infarctions. Brain aneurysms run on mother's side of family Father Additional Family Medical History / Comment(s): Father at age 72 from a cardiac arrest thought to be due to a myocardial infarction. Sister(s) Additional Family Medical History / Comment(s): Patient has 2 sisters with no major medical problems. Patient does not have any brothers. Patient has 2 adult children with no major medical problems. Patient is only family member with MS. General Exam - General Exam Comments Initial Comments: This is a well-developed well-nourished awake alert oriented times 3 female Limitations: no limitations General appearance: alert, in no apparent distress Head exam: Present: atraumatic, normocephalic, normal inspection, other (Is palpation on the scalp on the right side of the head including temporal and parietal scalp extending down to the right side of the neck.) Eye exam: Present: normal appearance, PERRL, EOMI. Absent: scleral icterus, conjunctival injection, periorbital swelling ENT exam: Present: mucous membranes dry Neck exam: Present: normal inspection, tenderness, full ROM, other (No stridor JVD or bruits no spinous process tenderness. No nuchal rigidity). Absent: meningismus, lymphadenopathy Respiratory exam: Present: normal lung sounds bilaterally. Absent: respiratory distress, wheezes, rales, rhonchi, stridor Cardiovascular Exam: Present: regular rate, normal rhythm, normal heart sounds. Absent: systolic murmur, diastolic murmur, rubs, gallop, clicks GI/Abdominal exam: Present: soft, normal bowel sounds. Absent: distended, tenderness, guarding, rebound, rigid Extremities exam: Present: normal inspection, full ROM, normal capillary refill. Absent: tenderness, pedal edema, joint swelling, calf tenderness Back exam: Present: normal inspection Neurological exam: Present: alert, oriented X3, CN II-XII intact Psychiatric exam: Present: normal affect, normal mood Skin exam: Present: warm, dry, intact, normal color. Absent: rash Course Vital Signs 08/21/20 07:11 Temperature 100.0 F H Pulse Rate 78 Respiratory 16 Rate Blood Pressure 139/89 O2 Sat by Pulse 98 Oximetry - Reevaluation(s) Reevaluation #1: 08/21/20 11:00 Just seemed a little relief of her headache she later after talking or again did complain of retrosternal chest pain. She's had similar events in the past. Apparently neglected to tell me this on our initial encounter. EKG was performed showing no definite acute findings troponin was mildly elevated. Medical Decision Making - Medical Decision Making I did discuss findings with the patient and with , patient will be admitted with consultation by cardiology and neurology does have evidence of el evated troponin as well as MS exacerbation also. Fever of unknown origin at this time. - Lab Data Result diagrams: 08/21/20 07:58 08/21/20 07:58 Lab Results 08/21/20 08/21/20 08/21/20 Range/Units 07:58 07:58 07:58 WBC 17.4 H (3.8-10.6) k/uL RBC 5.12 (3.80-5.40) m/uL Hgb 15.6 (11.4-16.0) gm/dL Hct 51.1 H (34.0-46.0) % MCV 99.8 (80.0-100.0) fL MCH 30.5 (25.0-35.0) pg MCHC 30.6 L (31.0-37.0) g/dL RDW 13.4 (11.5-15.5) % Plt Count 274 (150-450) k/uL MPV 8.3 Neutrophils % 78 % Lymphocytes % 14 % Monocytes % 5 % Eosinophils % 1 % Basophils % 1 % Neutrophils # 13.6 H (1.3-7.7) k/uL Lymphocytes # 2.3 (1.0-4.8) k/uL Monocytes # 0.9 (0-1.0) k/uL Eosinophils # 0.1 (0-0.7) k/uL Basophils # 0.1 (0-0.2) k/uL Hypochromasia Slight Sodium 136 L (137-145) mmol/L Potassium 3.3 L (3.5-5.1) mmol/L Chloride 88 L (98-107) mmol/L Carbon Dioxide 39 H (22-30) mmol/L Anion Gap 9 mmol/L BUN 12 (7-17) mg/dL Creatinine 0.64 (0.52-1.04) mg/dL Est GFR (CKD-EPI)AfAm >90 (>60 ml/min/1.73 sqM) Est GFR (CKD-EPI)NonAf >90 (>60 ml/min/1.73 sqM) Glucose 139 H (74-99) mg/dL Plasma Lactic Acid Adalid 1.7 (0.7-2.0) mmol/L Calcium 9.1 (8.4-10.2) mg/dL Magnesium 2.0 (1.6-2.3) mg/dL Total Bilirubin 0.6 (0.2-1.3) mg/dL AST 47 H (14-36) U/L ALT 29 (4-34) U/L Alkaline Phosphatase 91 (38-126) U/L Creatine Kinase 39 (30-135) U/L Troponin I (0.000-0.034) ng/mL Total Protein 6.5 (6.3-8.2) g/dL Albumin 4.2 (3.5-5.0) g/dL Urine Color Urine Appearance (Clear) Urine pH (5.0-8.0) Ur Specific [place] (1.001-1.035) Urine Protein (Negative) Urine Glucose (UA) (Negative) Urine Ketones (Negative) Urine Blood (Negative) Urine Nitrite (Negative) Urine Bilirubin (Negative) Urine Urobilinogen (<2.0) mg/dL Ur Leukocyte Esterase (Negative) Coronavirus (PCR) (Not Detectd) Influenza Type A RNA (Not Detectd) Influenza Type B (PCR) (Not Detectd) 08/21/20 08/21/20 08/21/20 Range/Units 07:58 07:58 07:58 WBC (3.8-10.6) k/uL RBC (3.80-5.40) m/uL Hgb (11.4-16.0) gm/dL Hct (34.0-46.0) % MCV (80.0-100.0) fL MCH (25.0-35.0) pg MCHC (31.0-37.0) g/dL RDW (11.5-15.5) % Plt Count (150-450) k/uL MPV Neutrophils % % Lymphocytes % % Monocytes % % Eosinophils % % Basophils % % Neutrophils # (1.3-7.7) k/uL Lymphocytes # (1.0-4.8) k/uL Monocytes # (0-1.0) k/uL Eosinophils # (0-0.7) k/uL Basophils # (0-0.2) k/uL Hypochromasia Sodium (137-145) mmol/L Potassium (3.5-5.1) mmol/L Chloride (98-107) mmol/L Carbon Dioxide (22-30) mmol/L Anion Gap mmol/L BUN (7-17) mg/dL Creatinine (0.52-1.04) mg/dL Est GFR (CKD-EPI)AfAm (>60 ml/min/1.73 sqM) Est GFR (CKD-EPI)NonAf (>60 ml/min/1.73 sqM) Glucose (74-99) mg/dL Plasma Lactic Acid [place] (0.7-2.0) mmol/L Calcium (8.4-10.2) mg/dL Magnesium (1.6-2.3) mg/dL Total Bilirubin (0.2-1.3) mg/dL AST (14-36) U/L ALT (4-34) U/L Alkaline Phosphatase (38-126) U/L Creatine Kinase (30-135) U/L Troponin I 0.058 H* (0.000-0.034) ng/mL Total Protein (6.3-8.2) g/dL Albumin (3.5-5.0) g/dL Urine Color Urine Appearance (Clear) Urine pH (5.0-8.0) Ur Specific [place] (1.001-1.035) Urine Protein (Negative) Urine Glucose (UA) (Negative) Urine Ketones (Negative) Urine Blood (Negative) Urine Nitrite (Negative) Urine Bilirubin (Negative) Urine Urobilinogen (<2.0) mg/dL Ur Leukocyte Esterase (Negative) Coronavirus (PCR) Not Detected (Not Detectd) Influenza Type A RNA Not Detected (Not Detectd) Influenza Type B (PCR) Not Detected (Not Detectd) 08/21/20 Range/Units 09:20 WBC (3.8-10.6) k/uL RBC (3.80-5.40) m/uL Hgb (11.4-16.0) gm/dL Hct (34.0-46.0) % MCV (80.0-100.0) fL MCH (25.0-35.0) pg MCHC (31.0-37.0) g/dL RDW (11.5-15.5) % Plt Count (150-450) k/uL MPV Neutrophils % % Lymphocytes % % Monocytes % % Eosinophils % % Basophils % % Neutrophils # (1.3-7.7) k/uL Lymphocytes # (1.0-4.8) k/uL Monocytes # (0-1.0) k/uL Eosinophils # (0-0.7) k/uL Basophils # (0-0.2) k/uL Hypochromasia Sodium (137-145) mmol/L Potassium (3.5-5.1) mmol/L Chloride (98-107) mmol/L Carbon Dioxide (22-30) mmol/L Anion Gap mmol/L BUN (7-17) mg/dL Creatinine (0.52-1.04) mg/dL Est GFR (CKD-EPI)AfAm (>60 ml/min/1.73 sqM) Est GFR (CKD-EPI)NonAf (>60 ml/min/1.73 sqM) Glucose (74-99) mg/dL Plasma Lactic Acid Adalid (0.7-2.0) mmol/L Calcium (8.4-10.2) mg/dL Magnesium (1.6-2.3) mg/dL Total Bilirubin (0.2-1.3) mg/dL AST (14-36) U/L ALT (4-34) U/L Alkaline Phosphatase (38-126) U/L Creatine Kinase (30-135) U/L Troponin I (0.000-0.034) ng/mL Total Protein (6.3-8.2) g/dL Albumin (3.5-5.0) g/dL Urine Color Light Yellow Urine Appearance Clear (Clear) Urine pH 7.0 (5.0-8.0) Ur Specific [place] 1.007 (1.001-1.035) Urine Protein Negative (Negative) Urine Glucose (UA) Negative (Negative) Urine Ketones Negative (Negative) Urine Blood Negative (Negative) Urine Nitrite Negative (Negative) Urine Bilirubin Negative (Negative) Urine Urobilinogen <2.0 (<2.0) mg/dL Ur Leukocyte Esterase Negative (Negative) Coronavirus (PCR) (Not Detectd) Influenza Type A RNA (Not Detectd) Influenza Type B (PCR) (Not Detectd) - EKG Data -: EKG Interpreted by Sc EKG shows normal: sinus rhythm EKG Comments: Sinus tachycardia rate 129. Interval 146 QRS duration 80 QT since QTC 310/454 nonspecific inferior and inferior configuration this was compared with previous EKGs. - Radiology Data Radiology results: report reviewed ((Reviewed no acute findings), image reviewed Disposition Clinical Impression: Elevated troponin, Chest pain, Multiple sclerosis, Fever of unknown origin, Cephalgia Disposition: ADMITTED IP TO THIS HOSP Condition: Fair Referrals: Kilo Tabares MD [Primary Care Provider] - 1-2 days
[2020-08-21 08:09] LABS: Basophils # (A) 0.1 k/uL (0-0.2); Basophils % (A) 1 %; Eosinophils # (A) 0.1 k/uL (0-0.7); Eosinophils % (A) 1 %; HCT 51.1 % (34.0-46.0); HGB 15.6 gm/dL (11.4-16.0); Hypochromasia Slight; Lymphocytes # (A) 2.3 k/uL (1.0-4.8); Lymphocytes % (A) 14 %; MCH 30.5 pg (25.0-35.0); MCHC 30.6 g/dL (31.0-37.0); MCV 99.8 fL (80.0-100.0); Mean Platelet Volume 8.3; Monocytes # (A) 0.9 k/uL (0-1.0); Monocytes % (A) 5 %; Neutrophils # (A) 13.6 k/uL (1.3-7.7); Neutrophils % (A) 78 %; Platelet Count 274 k/uL (150-450); RBC 5.12 m/uL (3.80-5.40); RDW 13.4 % (11.5-15.5); WBC 17.4 k/uL (3.8-10.6)
[2020-08-21 08:27] LABS: ALT 29 U/L (4-34); AST 47 U/L (14-36); African American GFR (CKD) >90 (>60 ml/min/1.73 sqM); Albumin 4.2 g/dL (3.5-5.0); Alkaline Phosphatase 91 U/L (38-126); Blood Urea Nitrogen 12 mg/dL (7-17); Calcium 9.1 mg/dL (8.4-10.2); Chloride 88 mmol/L (98-107); Creatine Kinase 39 U/L (30-135); Glucose 139 mg/dL (74-99); Non-African American GFR(CKD) >90 (>60 ml/min/1.73 sqM); Potassium 3.3 mmol/L (3.5-5.1); Sodium 136 mmol/L (137-145); Total Bilirubin 0.6 mg/dL (0.2-1.3); Total Protein 6.5 g/dL (6.3-8.2)
--- NOTE | 2020-08-21 08:31 | XR ---
EXAMINATION TYPE: XR chest 2V DATE OF EXAM: 08/21/2020 COMPARISON: Chest x-ray August 03, 2020. Chest CT March 30, 2020 HISTORY: Fever and headache. TECHNIQUE: Frontal and lateral views of the chest are obtained. FINDINGS: There is cardiomegaly redemonstrated without suspicious new focal airspace opacity, pleura l effusion, or pneumothorax seen. The osseous structures remaining intact. Bilateral hilar prominen ce is consistent with product of underlying pulmonary artery hypertension. IMPRESSION: Cardiomegaly without new acute process.
[2020-08-21 08:35] LABS: Anion Gap 9 mmol/L; Carbon Dioxide 39 mmol/L (22-30)
[2020-08-21] MEDS ORDERED: KETOROLAC 15 MG/ML 1 ML VIAL IVP STA (08:55)
[2020-08-21 09:48] LABS: Appearance,Urine Clear (Clear); Bilirubin,Urine Negative (Negative); Blood,Urine Negative (Negative); Color,Urine Light Yellow; Glucose,Urine (UA) Negative (Negative); Ketones,Urine Negative (Negative); Leukocyte Esterase,Urine Negative (Negative); Nitrite,Urine Negative (Negative); Protein,Urine Negative (Negative); Specific Gravity,Urine 1.007 (1.001-1.035); Urobilinogen,Urine <2.0 mg/dL (<2.0)
[2020-08-21] MEDS ORDERED: NITROGLYCERIN SL TABS 0.4 MG TAB SUBLINGUAL PRN (11:05)
[2020-08-21] MEDS ORDERED: ALBUTEROL HFA INHALER INHALATION PRN (11:07)
[2020-08-21] MEDS ORDERED: FLUTICASONE 50MCG/SPRAY NASAL 16GM EA NOSTRIL PRN (11:07)
[2020-08-21] MEDS ORDERED: DOCUSATE 100 MG CAP PO PRN (11:07)
[2020-08-21] MEDS ORDERED: DICLOFENAC SODIUM GEL 100 GM TUBE TOPICAL PRN (11:07)
[2020-08-21] MEDS: SODIUM CHLORIDE 0.9% 1,000 ML IV SCH ×2 (12:51→20:29)
[2020-08-21] MEDS ORDERED: MIDAZOLAM 2 MG/2 ML VIAL ONE (13:39)
[2020-08-21] MEDS ORDERED: fentaNYL (PF) 50 MCG/ML 2 ML AMP ONE (13:39)
[2020-08-21] MEDS: GABAPENTIN 400 MG CAP PO SCH ×2 (15:38→20:27)
[2020-08-21] MEDS: busPIRone HCl 10 MG TAB PO SCH ×2 (15:38→20:28)
[2020-08-21] MEDS: methocarbamoL 750 MG TAB PO SCH ×2 (15:39→21:04)
[2020-08-21] MEDS: PANTOPRAZOLE 40 MG TABLET PO SCH (15:39)
[2020-08-21] MEDS: oxyCODONE-APAP 7.5-325MG 1 EACH TAB PO PRN (15:39)
[2020-08-21] MEDS: IPRATROPIUM-ALBUTEROL 3 ML NEB INHALATION PRN (19:53)
[2020-08-21] MEDS: SYMBICORT 160-4.5 MCG INHALER INHALATION SCH (19:53)
[2020-08-21] MEDS: MELATONIN 5 MG TABLET PO SCH (20:27)
[2020-08-21] MEDS: MEMANTINE 10 MG TAB PO SCH (20:27)
[2020-08-21] MEDS: BUTALB/APAP/CAFF 50-325-40MG TAB PO PRN (20:28)
[2020-08-21] MEDS: TOPIRAMATE 100 MG TAB PO SCH (20:28)
[2020-08-21] MEDS: NICOTINE 14MG/24HR PATCH TRANSDERM SCH (20:29)
[2020-08-22 03:29] LABS: Cholesterol 126 mg/dL (<200); HDL Cholesterol 30 mg/dL (40-60); LDL Cholesterol,Calculated 77 mg/dL (0-99); Triglycerides 97 mg/dL (<150)
[2020-08-22] MEDS: oxyCODONE-APAP 7.5-325MG 1 EACH TAB PO PRN ×3 (05:38→22:31)
[2020-08-22] MEDS: PANTOPRAZOLE 40 MG TABLET PO SCH ×2 (06:17→17:49)
[2020-08-22] MEDS: ASCORBIC ACID 500 MG TAB PO SCH (08:36)
[2020-08-22] MEDS: GABAPENTIN 400 MG CAP PO SCH ×3 (08:36→22:31)
[2020-08-22] MEDS: SODIUM CHLORIDE 0.9% 1,000 ML IV SCH ×3 (08:36→20:24)
[2020-08-22] MEDS: BUTALB/APAP/CAFF 50-325-40MG TAB PO PRN (08:37)
[2020-08-22] MEDS: ASPIRIN 81 MG PO SCH (08:37)
[2020-08-22] MEDS: PARoxetine 20 MG TAB PO SCH (08:38)
[2020-08-22] MEDS: methocarbamoL 750 MG TAB PO SCH ×3 (08:38→22:32)
[2020-08-22] MEDS: MONTELUKAST 10 MG TAB PO SCH (08:38)
[2020-08-22] MEDS: NICOTINE 14MG/24HR PATCH TRANSDERM SCH (08:38)
[2020-08-22] MEDS: MULTIVITAMINS, THERA 1 EACH TAB PO SCH (08:38)
[2020-08-22] MEDS: busPIRone HCl 10 MG TAB PO SCH ×3 (08:39→22:31)
[2020-08-22] MEDS: VERAPAMIL 40 MG TAB PO SCH (08:39)
[2020-08-22] MEDS: FOLIC ACID 1 MG TAB PO SCH (08:39)
[2020-08-22] MEDS: ZINC SULFATE 220 MG CAP PO SCH (08:39)
[2020-08-22] MEDS: MEMANTINE 10 MG TAB PO SCH ×2 (08:40→20:24)
[2020-08-22] MEDS: hydroCHLOROthiazide 25 MG TAB PO SCH (08:40)
[2020-08-22] MEDS: TOPIRAMATE 100 MG TAB PO SCH ×2 (08:40→20:24)
[2020-08-22] MEDS: CHOLECALCIFEROL 25 MCG (1000 IU) TABLET PO SCH (08:40)
[2020-08-22] MEDS: SYMBICORT 160-4.5 MCG INHALER INHALATION SCH ×3 (08:53→11:49)
[2020-08-22] MEDS: IPRATROPIUM-ALBUTEROL 3 ML NEB INHALATION PRN ×3 (08:53→15:38)
[2020-08-22] MEDS ORDERED: ASPIRIN 325 MG TAB PO SCH (09:00)
[2020-08-22] MEDS ORDERED: VERAPAMIL SR 120 MG TABLET.ER PO SCH (09:00)
[2020-08-22] MEDS ORDERED: NON FORMULARY DRUG (Turmeric Root Extract [Turmeric] 500 MG Capsule) PO SCH (09:00)
[2020-08-22] MEDS ORDERED: NON FORMULARY DRUG (Elderberry Fruit And Flower [Black Elderberry 575 Mg Cap] 1 EACH Capsu PO SCH (09:00)
[2020-08-22 10:11] LABS: HCT 48.1 % (34.0-46.0); HGB 14.9 gm/dL (11.4-16.0); Hypochromasia Slight; MCH 31.2 pg (25.0-35.0); MCV 100.7 fL (80.0-100.0); Macrocytosis Slight; Mean Platelet Volume 8.4; Platelet Count 254 k/uL (150-450); RBC 4.78 m/uL (3.80-5.40); RDW 13.3 % (11.5-15.5)
[2020-08-22 10:18] LABS: African American GFR (CKD) >90 (>60 ml/min/1.73 sqM); Blood Urea Nitrogen 14 mg/dL (7-17); Calcium 8.2 mg/dL (8.4-10.2); Chloride 92 mmol/L (98-107); Glucose 133 mg/dL (74-99); Non-African American GFR(CKD) >90 (>60 ml/min/1.73 sqM); Potassium 3.1 mmol/L (3.5-5.1); Sodium 138 mmol/L (137-145)
[2020-08-22 10:26] LABS: Anion Gap 8 mmol/L
[2020-08-22 10:36] LABS: Carbon Dioxide 38 mmol/L (22-30)
[2020-08-22] MEDS: LORazepam 1 MG TAB PO PRN ×2 (12:42→22:31)
--- NOTE | 2020-08-22 14:09 | P.HPIM ---
History of Present Illness H&P Date: 08/22/20 HISTORY OF PRESENT ILLNESS This is a 54 year old female patient of Dr. Tabares and Dr. Ramirez with a past medical history of relapsing remitting multiple sclerosis, hypertension and hypertensive cardiovascular disease with left ventricular hypertrophy, history of GERD, multiple sclerosis, COPD, asthma, history of osteoporosis, uterine cancer status post surgery, chronic hypoxic respiratory failure on home O2 at 2 L nasal cannula, daily tobacco use. She has had multiple admissions for acute exacerbation of her multiple sclerosis. Patient complains of chest pain and fever for 3 days. She states she received her second: 19 vaccine on August 13. She states she has not been able to eat or drink anything and has no appetite. She complains of abdominal pain and constipation. She also complains of a headache. She's had increased weakness and she states that she had difficulty answering questions yesterday. She complains of palpitations and tingling sensation in her chest that lasted a couple days. She complains of a fiery-type headache on the right side. She also states she is dropping things with her hands and has jerking motions of her extremities. Patient came into [facility] emergency center for evaluation. WBC 17.4, hemoglobin 15.6, platelet count 274. Sodium 136, potassium 3.3, chloride 88, CO2 39, BUN 12 and creatinine 0.64. Blood sugar 139. AST 47 otherwise liver function tests are normal. Magnesium 2.0. Troponin 0.058, 0. 044 and 0.049. Triglycerides 97, cholesterol 126, LDL 77 and HDL 30. Urinalysis was clear and negative for infection. Influenza testing was negative. Coronavirus PCR not detected. Chest x-ray shows cardiomegaly without new acute process. Patient was admitted to the cardiac stepdown unit and con sult in place with cardiology for chest pain, neurology for MS exacerbation, Dr. Cuevas consult added for fever. REVIEW OF SYSTEMS Constitutional: Reports intermittent fever, no chills, no night sweats. No weight change. Reports weakness, fatigue or lethargy. No daytime sleepiness. EENT: Reports headache. No blurred vision or double vision, no loss of vision. No loss of Hearing, no ringing in the ears, no dizziness. No nasal drainage or congestion. No epistaxis. No sore throat. Lungs: Reports shortness of breath, reports cough, reports sputum production. No wheezing. Cardiovascular: No chest pain, no lower extremity edema. No palpitations. No paroxysmal nocturnal dyspnea. No orthopnea. No lightheadedness or dizziness. No syncopal episodes. Abdominal: No abdominal pain. No nausea, vomiting. No diarrhea. No constipation. No bloody or tarry stools.. No loss of appetite. Genitourinary: No dysuria, increased frequency, urgency. No urinary retention. Musculoskeletal: No myalgias. Reports muscle weakness, reports gait dysfunction, no frequent falls. No back pain. No neck pain. Integumentary: No wounds, no lesions. No rash or pruritus. No unusual bruising. No change in hair or nails. Neurologic: No aphasia. No facial droop. No change in mentation. No head injury. No headache. No paralysis. No paresthesia. Reports weakness. Psychiatric: No depression. No anxiety. No mood swings. Endocrine: No abnormal blood sugars. No weight change. SOCIAL HISTORY Patient started smoking at age 18 and has smoked on and off since then. She is currently smoking 1 pack per day. No illicit drug use. No alcohol use. FAMILY HISTORY Mother is alive at age 74 with history of brain aneurysm, 3 strokes and 2 myocardial infarctions. Brain aneurysms run on mother's side of family. Father at age 72 from a cardiac arrest thought to be due to a myocardial infarction. Patient has 2 sisters with no major medical problems. Patient does not have any brothers. Patient has 2 adult children with no major medical problems. Patient is only family member with MS. PHYSICAL EXAMINATION Gen: This is a morbidly obese 54-year-old -[place] female. She is resting in bed. HEENT: Head is atraumatic, normocephalic. Pupils equal, round. Sclerae is anicteric. NECK: Supple. No JVD. No lymphadenopathy. No thyromegaly. LUNGS: Clear to auscultation. No wheezes or rhonchi. No intercostal retractions. HEART: Regular rate and rhythm. No murmur. ABDOMEN: Soft. Bowel sounds are present. No masses. No abdominal tenderness. EXTREMITIES: No pedal edema. No calf tenderness. NEUROLOGICAL: Patient is awake, alert and oriented x3. Cranial nerves 2 through 12 are grossly intact. No nuchal rigidity. ASSESSMENT AND PLAN 1. Chest pain. Consult with cardiology. Echocardiogram has been ordered . Continue aspirin 81 mg daily 2. MS exacerbation. Consult with neurology. Anticipate high-dose Solu-Medrol. 3. Fever of unclear etiology. Consult with infectious disease 4. History of relapsing remitting multiple sclerosis. 5. Chronic pain and occipital neuralgia under the care of Dr. Ramirez. Continue gabapentin 800mg 3 times daily, Percocet 7.5 mg one 3 times daily as needed. 5. Hypertension and hypertensive cardiovascular disease. Hydrochlorothiazide 25 mg daily, verapamil 120 mg orally once every day. 6. Obesity with possible obstructive sleep apnea and obesity hypoventilation syndrome. 7. Mild intermittent asthma and COPD. Continue albuterol inhaler every 6 hours as needed, Symbicort twice daily, Singulair 10 mg daily, Flonase as needed. 8. Fibromyalgia. Continue gabapentin 800 mg orally 3 times every day. 8. Generalized anxiety disorder. Continue Ativan 1 mg every 8 hours as needed. 9. Recurrent depression. Continue BuSpar 10 mg 3 times daily. Continue Paxil 40 mg daily. 10. Chronic tobacco use and dependence. Smoking cessation and counseling an increased risk of CAD, CVA, and malignancy. Nicotine patch 14mg. 11. Mild cognitive impairment. Continue patient on Namenda 10 mg orally twice every day. 13. Restless leg syndrome. Continue Requip 0.25 mg 2 times daily 14. DVT prophylaxis. Heparin subcu. 15. GERD and GI prophylaxis. Continue with Protonix 40 mg orally twice every day. CODE STATUS: Full code Patient will be admitted to the hospital for a minimum of 2 night stay. DISCHARGE PLAN Home with [facility]. Impression and plan of care have been directed as dictated by the signing physician. Elaine Nguyen nurse practitioner acting as scribe for signing physician. Past Medical History Past Medical History: Asthma, Cancer, COPD, Eye Disorder, Fibromyalgia, GERD/Reflux, Hearing Disorder / Deafness, Hypertension, Memory Impairment, Neurologic Disorder, Osteoarthritis (OA), Pneumonia, Syncope Additional Past Medical History / Comment(s): MS relapsing/remitting type, chronic bilateral eye pain/optic neuritis/ poor vision, cataracts bilaterally, chronic occipital neuralgia, osteoporosis, RLS, chronic hypoxic respiratory failure with home oxygen 2L/NC prn, chronic bronchitis, immunocompromised, elevated blood sugar with steroid use, uterine cancer with hyst erectomy/radiation, heart murmur, mild cognitive impairment, chronic vertigo, falls, rheumatic fever as child, tinnitis bilaterally, allergic rhinitis. History of Any Multi-Drug Resistant Organisms: None Reported Past Surgical History: Bladder Surgery, Heart Catheterization, Hysterectomy Additional Past Surgical History / Comment(s): Nerve blocks, bladder suspension. PAIN CLINIC Past Anesthesia/Blood Transfusion Reactions: No Reported Reaction Additional Past Anesthesia/Blood Transfusion Reaction / Comment(s): mild clausterphobia Past Psychological History: Anxiety, Depression Additional Psychological History / Comment(s): Pt resides alone. She uses a cane or walker or wheelchair. She has a private hire nurse aide who organizers her meds in a associate merchandise planner but pt takes her own meds, aide assists her with her ADLs. This aide also prepares meals/shopping and cleaning. Pt does not drive, she has her friends take her to appts or sometimes her aide drives her. Smoking Status: Current every day smoker Past Alcohol Use History: Rare Additional Past Alcohol Use History / Comment(s): Patient started smoking at age 18 and has smoked on and off since then. She is currently smoking 1 pack per day. TRYING TO QUIT Past Drug Use History: None Reported - Past Family History Mother Family Medical History: CVA/TIA, Myocardial Infarction ([place]) Additional Family Medical History / Comment(s): Mother is alive at age 75 with history of brain aneurysm, 3 strokes and 2 myocardial infarctions. Brain aneurysms run on mother's side of family Father Additional Family Medical History / Comment(s): Father at age 72 from a cardiac arrest thought to be due to a myocardial infarction. Sister(s) Additional Family Medical History / Comment(s): Patient has 2 sisters with no major medical problems. Patient does not have any brothers. Patient has 2 adult children with no major medical problems. Patient is only family member with MS. Medications and Allergies Home Medications Medication Instructions Recorded Confirmed Type Aspirin 81 mg PO DAILY 02/20/14 08/21/20 History LORazepam [Ativan] 1 mg PO TID PRN 02/20/14 08/21/20 History Verapamil HCl [Calan] 120 mg PO DAILY 02/20/14 08/21/20 History Butalb/APAP/Caff 50-325-40Mg 1 tab PO Q8H PRN 03/25/17 08/21/20 History [Fioricet 50-325-40] rOPINIRole HCL [Requip] 0.25 mg PO TID #90 tab 01/31/18 08/21/20 Rx Budesonide/Formoterol Fumarate 2 puff INHALATION RT-BID 05/06/18 08/21/20 History [Symbicort 160-4.5 Mcg Inhaler] Cholecalciferol [Vitamin D3 (25 50 mcg PO DAILY 05/07/18 08/21/20 History Mcg = 1000 Iu)] Multivitamins, Thera [Multivitamin 1 tab PO DAILY 05/07/18 08/21/20 History (formulary)] PARoxetine [Paxil] 40 mg PO DAILY tab 05/09/18 08/21/20 Rx Pantoprazole Sodium [Protonix] 40 mg PO BID 10/31/18 08/21/20 History Ipratropium-Albuterol Nebulize 3 ml INHALATION RT-QID PRN 11/22/18 08/21/20 History [Duoneb 0.5 mg-3 mg/3 ml Soln] Memantine [Namenda] 10 mg PO BID 11/22/18 08/21/20 History Montelukast [Singulair] 10 mg PO DAILY 11/22/18 08/21/20 History hydroCHLOROthiazide [Hydrodiuril] 25 mg PO DAILY tab 11/26/18 08/21/20 Rx Fluticasone Nasal [place] [Flonase 2 spray EA NOSTRIL DAILY PRN 04/28/19 08/21/20 History Nasal [place]] Methocarbamol [Robaxin-750] 750 mg PO TID 04/28/19 08/21/20 History Folic Acid 1 mg PO DAILY #30 tab 05/02/19 08/21/20 Rx busPIRone HCl [Buspar] 10 mg PO TID #90 tab 05/02/19 08/21/20 Rx Albuterol Sulfate [Ventolin HFA] 1 - 2 puff INHALATION RT-Q6H PRN 08/09/1908/03 History Ascorbic Acid [Vitamin C] 1,000 mg PO DAILY 01/30/20 08/21/20 History Docusate [Colace] 100 mg PO DAILY PRN 01/30/20 08/21/20 History Zinc Gluconate [Zinc] 25 mg PO DAILY 01/30/20 08/21/20 History Diclofenac Sodium Gel [Voltaren 2 gm TOPICAL QID PRN #0 03/26/20 08/21/20 History Gel] Ear Drops (Unknown) 1 dose LEFT EAR DIRECTED PRN 03/26/20 08/21/20 History Elderberry Fruit and Flower [Black 1 cap PO DAILY 06/14/20 08/21/20 History Elderberry 575 mg Cap] Turmeric Root Extract [Turmeric] 500 mg PO DAILY 06/14/20 08/21/20 History oxyCODONE HCL/ACETAMINOPHEN 1 tab PO TID PRN 08/03/20 08/21/20 History [Percocet 7.5-325 mg] Gabapentin 800 mg PO TID 08/21/20 08/21/20 History Topiramate [Topamax] 100 mg PO BID 08/21/20 08/21/20 History Allergies Allergy/AdvReac Type Severity Reaction Status Date / Time baclofen AdvReac URINARY Verified 08/21/20 10:38 ISSUES dexamethasone [From Decadron] AdvReac "THOMPSON Verified 08/21/20 10:38 SKIN"/DEHYDRATION Physical Exam Vitals: Vital Signs Temp Pulse Pulse Resp BP BP Pulse Ox 08/22/20 04:00 67 18 107/59 99 08/22/20 00:00 92 18 115/71 96 08/21/20 20:04 100 08/21/20 20:00 98.3 F 81 18 119/67 94 L 08/21/20 19:54 102 H 08/21/20 18:20 98.9 F 97 16 111/72 97 08/21/20 12:51 98.9 F 110 H 16 126/84 91 L Intake and Output 08/21/20 08/22/20 08/22/20 22:59 06:59 14:59 Intake Total 660 Balance 660 Intake: Oral 660 Other: Voiding Method Toilet # Voids 1 Weight 104.78 kg 103.1 kg Results CBC & Chem 7: 08/22/20 08:58 08/22/20 08:58 Labs: Abnormal Lab Results - Last 24 Hours (Table) 08/21/20 08/21/20 08/21/20 Range/Units 07:58 07:58 11:40 Troponin I 0.058 H* 0.044 H* (0.000-0.034) ng/mL HDL Cholesterol 30 L (40-60) mg/dL 08/21/20 Range/Units 14:54 Troponin I 0.049 H* (0.000-0.034) ng/mL HDL Cholesterol (40-60) mg/dL Thrombosis Risk Factor Assmnt - Choose All That Apply Each Factor Represents 1 point: Abnormal pulmonary function (COPD), Age 41-60 years, Obesity (BMI >25) Other congenital or acquired thrombophilia - If yes, enter type in comment: No Thrombosis Risk Factor Assessment Total Risk Factor Score: 3 Thrombosis Risk Factor Assessment Level: Moderate Risk
--- NOTE | 2020-08-22 16:00 | P.CRDCN ---
History of Present Illness History of present illness: HISTORY OF PRESENTING ILLNESS Patient is a pleasant 54 year old female with history of multiple sclerosis, HTN, GERD, LVH, COPD on home O2, asthma, uterine cancer s/p surgery. She normally follows with Dr Sampson. She presents mainly with a terrible headache as well as palpitations. Although there is mention of chest pain in chart, she denies any chest pain or pressure and only states she felt palpitions "like my heart was pounding in my chest". This has been off and on both before she arrived as well as when she has been hooked up to telemetry with telemetry only showing 1 4 beat SVT however she states this was lasting for 10-20 minutes and admits it may be from anxiety. She admits her head ache is somewhat better. She did recieve her 2nd Covid vaccination on August 13 and wonders if that is causing her not to feel well. She had a heart cath from 03/2017 which showed normal coronary arteries. EKG shows sinus tachycardia with biatrial enlargement, nonspecific ST/T wave abnormalities. Chest Xray shows cardiomegaly without acute process. Blood work showed WBC 17.4, Hgb 15.6, K+ 3.3, Cr 0.6, AST 47, Troponin 0.058, 0.04, 0.049, Cholesterol 126, LDL 77. Negative Covid. Her troponins have been elevated in the past up to 0.149. Echo 09/05/2019: moderate LVH, EF 50-55%, RVSP 25, mild TR REVIEW OF SYSTEMS At the time of my exam: CONSTITUTIONAL: Complains of fatigue and weakness. Denies fever or chills. CARDIOVASCULAR: Denies chest pain, shortness of breath, orthopnea, PND, +palpitations. RESPIRATORY: Denies cough. GASTROINTESTINAL: Denies abdominal pain, diarrhea, constipation, nausea or vomiting. MUSCULOSKELETAL: Denies myalgias. NEUROLOGIC: Denies numbness, tingling, headacbe or weakness. ENDOCRINE: Denies fatigue, weight change, polydipsia or polyurina. GENITOURINARY: Denies burning, hematuria or urgency with micturation. HEMATOLOGIC: Denies history of anemia or bleeding. PHYSICAL EXAMINATION Vitals reviewed CONSTITUTIONAL: No apparent distress. HEENT: Head is normocephalic. Pupils are equal, round. Mucous membranes of the mouth are dry. No JVD. No carotid bruit. CHEST EXAMINATION: Lungs are clear to auscultation. No chest wall tenderness is noted on palpation or with deep breathing. HEART EXAMINATION: Regular rate and rhythm. S1, S2 heard. No murmurs, gallops or rub. ABDOMEN: Soft, Positive bowel sounds. EXTREMITIES: 2+ peripheral pulses, no LE edema NEUROLOGIC EXAMINATION: No focal deficits noted ASSESSMENT 1. Palpitations for 10-20 minutes off and on, before and throughout hospitalization corresponding with normal sinus rhythm. Possible anxiety component. No reported chest pain 2. Chronically elevated troponins. No angina and do not suspect acute coronary syndrome. Normal coronary arteries by [facility] 2017 and palpitations appear atypical 3. LVH 4. Leukocytosis 5. Headache improving 6. Essential hypertension, controlled 7. COPD PLAN Patient denies any chest pain and more so describes palpitations which have been occuring this morning as well with telemetry only revealing normal sinus rhythm. Possible anxiety component. Echo personally reviewed with EF 60% without wall motion abnormalities and no significant vavlular disease. Patient may be discharged from a cardiology standpoint and followup with Dr Guerrero in 1 week. No further recommendations from a cardiology standpoint. Please call with questions. Past Medical History Past Medical History: Asthma, Cancer, COPD, Eye Disorder, Fibromyalgia, GERD/Reflux, Hearing Disorder / Deafness, Hypertension, Memory Impairment, Neurologic Disorder, Osteoarthritis (OA), Pneumonia, Syncope Additional Past Medical History / Comment(s): MS relapsing/remitting type, chronic bilateral eye pain/optic neuritis/ poor vision, cataracts bilaterally, chronic occipital neuralgia, osteoporosis, RLS, chronic hypoxic respiratory failure with home oxygen 2L/NC prn, chronic bronchitis, immunocompromised, elevated blood sugar with steroid use, uterine cancer with hysterectomy/radiation, heart murmur, mild cognitive impairment, chronic vertigo, falls, rheumatic fever as child, tinnitis bilaterally, allergic rhinitis. History of Any Multi-Drug Resistant Organisms: None Reported Past Surgical History: Bladder Surgery, Heart Catheterization, Hysterectomy Additional Past Surgical History / Comment(s): Nerve blocks, bladder suspension. PAIN CLINIC Past Anesthesia/Blood Transfusion Reactions: No Reported Reaction Additional Past Anesthesia/Blood Transfusion Reaction / Comment(s): mild clausterphobia Past Psychological History: Anxiety, Depression Additional Psychological History / Comment(s): Pt resides alone. She uses a cane or walker or wheelchair. She has a private hire nurse aide who organizers her meds in a planner/scheduler but pt takes her own meds, aide assists her with her ADLs. This aide also prepares meals/shopping and cleaning. Pt does not drive, she has her friends take her to appts or sometimes her aide drives her. Smoking Status: Current every day smoker Past Alcohol Use History: Rare Additional Past Alcohol Use History / Comment(s): Patient started smoking at age 18 and has smoked on and off since then. She is currently smoking 1 pack per day. TRYING TO QUIT Past Drug Use History: None Reported - Past Family History Mother Family Medical History: CVA/TIA, Myocardial Infarction ([place]) Additional Family Medical History / Comment(s): Mother is alive at age 75 with history of brain aneurysm, 3 strokes and 2 myocardial infarctions. Brain aneurysms run on mother's side of family Father Additional Family Medical History / Comment(s): Father at age 72 from a cardiac arrest thought to be due to a myocardial infarction. Sister(s) Additional Family Medical History / Comment(s): Patient has 2 sisters with no major medical problems. Patient does not have any brothers. Patient has 2 adult children with no major medical problems. Patient is only family member with MS. Medications and Allergies Home Medications Medication Instructions Recorded Confirmed Type Aspirin 81 mg PO DAILY 02/20/14 08/21/20 History LORazepam [Ativan] 1 mg PO TID PRN 02/20/14 08/21/20 History Verapamil HCl [Calan] 120 mg PO DAILY 02/20/14 08/21/20 History Butalb/APAP/Caff 50-325-40Mg 1 tab PO Q8H PRN 03/25/17 08/21/20 History [Fioricet 50-325-40] rOPINIRole HCL [Requip] 0.25 mg PO TID #90 tab 01/31/18 08/21/20 Rx Budesonide/Formoterol Fumarate 2 puff INHALATION RT-BID 05/06/18 08/21/20 H istory [Symbicort 160-4.5 Mcg Inhaler] Cholecalciferol [Vitamin D3 (25 50 mcg PO DAILY 05/07/18 08/21/20 History Mcg = 1000 Iu)] Multivitamins, Thera [Multivitamin 1 tab PO DAILY 05/07/18 08/21/20 History (formulary)] PARoxetine [Paxil] 40 mg PO DAILY tab 05/09/18 08/21/20 Rx Pantoprazole Sodium [Protonix] 40 mg PO BID 10/31/18 08/21/20 History Ipratropium-Albuterol Nebulize 3 ml INHALATION RT-QID PRN 11/22/18 08/21/20 History [Duoneb 0.5 mg-3 mg/3 ml Soln] Memantine [Namenda] 10 mg PO BID 11/22/18 08/21/20 History Montelukast [Singulair] 10 mg PO DAILY 11/22/18 08/21/20 History hydroCHLOROthiazide [Hydrodiuril] 25 mg PO DAILY tab 11/26/18 08/21/20 Rx Fluticasone Nasal [place] [Flonase 2 spray EA NOSTRIL DAILY PRN 04/28/19 08/21/20 History Nasal [place]] Methocarbamol [Robaxin-750] 750 mg PO TID 04/28/19 08/21/20 History Folic Acid 1 mg PO DAILY #30 tab 05/02/19 08/21/20 Rx busPIRone HCl [Buspar] 10 mg PO TID #90 tab 05/02/19 08/21/20 Rx Albuterol Sulfate [Ventolin HFA] 1 - 2 puff INHALATION RT-Q6H PRN 08/09/19 08/21/20 History Ascorbic Acid [Vitamin C] 1,000 mg PO DAILY 01/30/20 08/21/20 History Docusate [Colace] 100 mg PO DAILY PRN 01/30/20 08/21/20 History Zinc Gluconate [Zinc] 25 mg PO DAILY 01/30/20 08/21/20 History Diclofenac Sodium Gel [Voltaren 2 gm TOPICAL QID PRN #0 03/26/20 08/21/20 History Gel] Ear Drops (Unknown) 1 dose LEFT EAR DIRECTED PRN 03/26/20 08/21/20 History Elderberry Fruit and Flower [Black 1 cap PO DAILY 06/14/20 08/21/20 History Elderberry 575 mg Cap] Turmeric Root Extract [Turmeric] 500 mg PO DAILY 06/14/20 08/21/20 History oxyCODONE HCL/ACETAMINOPHEN 1 tab PO TID PRN 08/03/20 08/21/20 History [Percocet 7.5-325 mg] Gabapentin 800 mg PO TID 08/21/20 08/21/20 History Topiramate [Topamax] 100 mg PO BID 08/21/20 08/21/20 History Allergies Allergy/AdvReac Type Severity Reaction Status Date / Time baclofen AdvReac URINARY Verified 08/21/20 10:38 ISSUES dexamethasone [From Decadron] AdvReac "THOMPSON Verified 08/21/20 10:38 SKIN"/DEHYDRATION Physical Exam Vitals: Vital Signs Temp Pulse Pulse Resp BP Pulse Ox 08/22/20 12:07 102 H 08/22/20 11:52 100 08/22/20 04:00 67 18 107/59 99 08/22/20 00:00 92 18 115/71 96 08/21/20 20:04 100 08/21/20 20:00 98.3 F 81 18 119/67 94 L 08/21/20 19:54 102 H 08/21/20 18:20 98.9 F 97 16 111/72 97 Intake and Output 08/22/20 08/22/20 08/22/20 06:59 14:59 22:59 Other: # Voids 1 1 # Bowel Movements 1 Weight 103.1 kg Results 08/22/20 08:58 08/22/20 08:58 Cardiac Enzymes 08/21/20 Range/Units 14:54 Troponin I 0.049 H* (0.000-0.034) ng/mL Lipids 08/21/20 Range/Units 07:58 Triglycerides 97 (<150) mg/dL Cholesterol 126 (<200) mg/dL HDL Cholesterol 30 L (40-60) mg/dL CBC 08/22/20 Range/Units 08:58 WBC 13.0 H (3.8-10.6) k/uL RBC 4.78 (3.80-5.40) m/uL Hgb 14.9 (11.4-16.0) gm/dL Hct 48.1 H (34.0-46.0) % Plt Count 254 (150-450) k/uL Comprehensive Metabolic Panel 08/22/20 Range/Units 08:58 Sodium 138 (137-145) mmol/L Potassium 3.1 L (3.5-5.1) mmol/L Chloride 92 L (98-107) mmol/L Carbon Dioxide 38 H (22-30) mmol/L BUN 14 (7-17) mg/dL Creatinine 0.60 (0.52-1.04) mg/dL Glucose 133 H (74-99) mg/dL Calcium 8.2 L (8.4-10.2) mg/dL Current Medications Generic Name Dose Route Start Last Admin Trade Name Freq PRN Reason Stop Dose Admin Acetaminophen/Butalbital/Caffeine 1 each 08/21/20 11:07 08/22/20 08:37 Butalb/Apap/Caff 50-325-40mg Tab PO 1 each Q8H PRN Administration Headache Albuterol/Ipratropium 3 ml 08/21/20 11:07 08/22/20 11:49 Ipratropium-Albuterol 3 Ml Neb INHALATION 3 ml RT-QID PRN Administration Shortness Of Breath Ascorbic Acid 1,000 mg 08/22/20 09:00 08/22/20 08:36 Ascorbic Acid 500 Mg Tab PO 1,000 mg DAILY ANDREAS Administration Aspirin 81 mg 08/22/20 09:00 08/22/20 08:37 Aspirin 81 Mg PO 81 mg DAILY ANDREAS Administration Budesonide/Formoterol Fumarate 2 puff 08/21/20 20:00 08/22/20 11:49 Symbicort 160-4.5 Mcg Inhaler INHALATION 2 puff RT-BID ANDREAS Administration Buspirone HCl 10 mg 08/21/20 16:00 08/22/20 08:39 Buspirone Hcl 10 Mg Tab PO 10 mg TID ANDREAS Administration Cholecalciferol 50 mcg 08/22/20 09:00 08/22/20 08:40 Cholecalciferol 25 Mcg (1000 Iu) Tablet PO 50 mcg DAILY ANDREAS Administration Diclofenac Sodium 2 gm 08/21/20 11:07 Diclofenac Sodium Gel 100 Gm Tube TOPICAL QID PRN Pain Docusate Sodium 100 mg 08/21/20 11:07 Docusate 100 Mg Cap PO DAILY PRN Constipation Fluticasone Propionate 2 spray 08/21/20 11:07 Fluticasone 50mcg/[place] Nasal 16gm EA NOSTRIL DAILY PRN Congestion Folic Acid 1 mg 08/22/20 09:00 08/22/20 08:39 Folic Acid 1 Mg Tab PO 1 mg DAILY ANDREAS Administration Gabapentin 800 mg 08/21/20 16:00 08/22/20 08:36 Gabapentin 400 Mg Cap PO 800 mg TID ANDREAS Administration Heparin Sodium (Porcine) 5,000 unit 08/22/20 16:00 Heparin Sodium,Porcine/Pf 5,000 Unit/0.5 Ml Syringe SQ Q8HR ANDREAS Hydrochlorothiazide 25 mg 08/22/20 09:00 08/22/20 08:40 Hydrochlorothiazide 25 Mg Tab PO 25 mg DAILY ANDREAS Administration Sodium Chloride 1,000 mls @ 100 mls/hr 08/21/20 11:15 08/22/20 08:36 Saline 0.9% IV 100 mls/hr .Q10H ANDREAS Administration Lorazepam 1 mg 08/21/20 11:07 08/22/20 12:42 Lorazepam 1 Mg Tab PO 1 mg TID PRN Administration Anxiety Melatonin 5 mg 08/21/20 21:00 08/21/20 20:27 Melatonin 5 Mg Tablet PO 5 mg HS ANDREAS Administration Memantine 10 mg 08/21/20 21:00 08/22/20 08:40 Memantine 10 Mg Tab PO 10 mg BID ANDREAS Administration Methocarbamol 750 mg 08/21/20 16:00 08/22/20 08:38 Methocarbamol 750 Mg Tab PO 750 mg TID ANDREAS Administration Montelukast Sodium 10 mg 08/22/20 09:00 08/22/20 08:38 Montelukast 10 Mg Tab PO 10 mg DAILY ANDREAS Administration Multivitamins 1 each 08/22/20 09:00 08/22/20 08:38 Multivitamins, Thera 1 Each Tab PO 1 each DAILY ANDREAS Administration Nicotine 1 patch 08/21/20 21:00 08/22/20 08:38 Nicotine 14mg/24hr Patch TRANSDERM 1 patch DAILY ANDREAS Administration Nitroglycerin 0.4 mg 08/21/20 11:05 Nitroglycerin Sl Tabs 0.4 Mg Tab SUBLINGUAL Q5M PRN Chest Pain Oxycodone/Acetaminophen 1 each 08/21/20 11:07 08/22/20 12:42 Oxycodone-Apap 7.5-325mg 1 Each Tab PO 1 each TID PRN Administration Pain Pantoprazole Sodium 40 mg 08/21/20 17:30 08/22/20 06:17 Pantoprazole 40 Mg Tablet PO 40 mg AC-BID ANDREAS Administration Paroxetine HCl 40 mg 08/22/20 09:00 08/22/20 08:38 Paroxetine 20 Mg Tab PO 40 mg DAILY ANDREAS Administration Potassium Chloride 40 meq 08/22/20 14:00 Potassium Chloride Er 20 Meq Tab.Er PO 08/22/20 16:01 Q2HR ANDREAS Ropinirole HCl 0.25 mg 08/21/20 16:00 08/22/20 08:38 Ropinirole Hcl 0.25 Mg Tab PO 0.25 mg TID ANDREAS Administration Topiramate 100 mg 08/21/20 21:00 08/22/20 08:40 Topiramate 100 Mg Tab PO 100 mg BID ANDREAS Administration Verapamil HCl 120 mg 08/22/20 09:00 08/22/20 08:39 Verapamil 40 Mg Tab PO 120 mg DAILY ANDREAS Administration Zinc Sulfate 220 mg 08/22/20 09:00 08/22/20 08:39 Zinc Sulfate 220 Mg Cap PO 220 mg DAILY ANDREAS Administration Intake and Output 08/22/20 08/22/20 08/22/20 06:59 14:59 22:59 Other: # Voids 1 1 # Bowel Movements 1 Weight 103.1 kg 08/22/20 08:58 08/22/20 08:58
--- NOTE | 2020-08-22 16:25 | ECHOF ---
Referral Reason:re: CP MEASUREMENTS -------- HEIGHT: 157.5 cm WEIGHT: 103.0 kg BP: RVIDd: 2.9 cm (< 3.3) IVSd: 1.0 cm (0.6 - 1.1) LVIDd: 4.4 cm (3.9 - 5.3) LVPWd: 0.8 cm (0.6 - 1.1) IVSs: 1.2 cm LVIDs: 3.4 cm LVPWs: 1.1 cm LA Diam: 3.4 cm (2.7 - 3.8) Ao Diam: 2.5 cm (2.0 - 3.7) LA Diam: 3.4 cm (2.7 - 3.8) MV EXCURSION: 15.119 mm (> 18.000) MV EF SLOPE: 62 mm/s (70 - 150) EPSS: 0.7 cm MV E Vargas: 0.72 m/s MV DecT: 260 ms MV A Vargas: 0.90 m/s MV E/A Ratio: 0.80 RAP: 5.00 mmHg RVSP: 15.10 mmHg FINDINGS -------- Sinus rhythm. This was a techncally difficult study with suboptimal views, , Lumason utilized for enhancement of im ages. The left ventricular size is normal. Left ventricular wall thickness is normal. Overall left vent ricular systolic function is low-normal with, an EF between 50 - 55 %. The right ventricle is normal in size. The left atrial size is normal. The right atrial size is normal. There is mild aortic valve sclerosis. There is no evidence of aortic regurgitation. Mild mitral regurgitation is present. Mild tricuspid regurgitation present. Right ventricular systolic pressure is normal at < 35 mmHg. There is no pulmonic regurgitation present. The aortic root size is normal. There is a small, generalized pericardial effusion present. CONCLUSIONS -------- 1. This was a techncally difficult study with suboptimal views, , Lumason utilized for enhancement of images. 2. The left ventricular size is normal. 3. Left ventricular wall thickness is normal. 4. Overall left ventricular systolic function is low-normal with, an EF between 50 - 55 %. 5. The right ventricle is normal in size. 6. The left atrial size is normal. 7. The right atrial size is normal. 8. There is mild aortic valve sclerosis. 9. Mild mitral regurgitation is present. 10. Mild tricuspid regurgitation present. 11. There is no pulmonic regurgitation present. 12. The aortic root size is normal. 13. There is a small, generalized pericardial effusion present. CONVEYANCER: Izabela Sam RDCS
[2020-08-22] MEDS: HEPARIN SODIUM,PORCINE/PF 5,000 UNIT/0.5 ML SYRINGE SQ SCH ×2 (17:49→23:10)
[2020-08-22] MEDS: POTASSIUM CHLORIDE ER 20 MEQ TAB.ER PO SCH ×2 (17:49→20:24)
[2020-08-22] MEDS: MELATONIN 5 MG TABLET PO SCH (20:24)
[2020-08-23] MEDS: AMPICILLIN-SULBACTAM 3 GM in SODIUM CHLORIDE 0.9% 100 ML IVPB SCH ×4 (06:22→23:16)
[2020-08-23] MEDS: BUTALB/APAP/CAFF 50-325-40MG TAB PO PRN (06:22)
[2020-08-23] MEDS: PANTOPRAZOLE 40 MG TABLET PO SCH ×2 (06:23→16:47)
[2020-08-23] MEDS: SYMBICORT 160-4.5 MCG INHALER INHALATION SCH ×2 (07:35→20:44)
[2020-08-23] MEDS: IPRATROPIUM-ALBUTEROL 3 ML NEB INHALATION PRN ×4 (07:35→20:44)
[2020-08-23] MEDS: IOPAMIDOL CONTRAST (ORAL USE) VIAL PO PRN ×2 (08:38→09:39)
[2020-08-23] MEDS: MONTELUKAST 10 MG TAB PO SCH (08:42)
[2020-08-23] MEDS: NICOTINE 14MG/24HR PATCH TRANSDERM SCH (08:43)
[2020-08-23] MEDS: HEPARIN SODIUM,PORCINE/PF 5,000 UNIT/0.5 ML SYRINGE SQ SCH ×3 (08:43→23:09)
[2020-08-23] MEDS: CHOLECALCIFEROL 25 MCG (1000 IU) TABLET PO SCH (08:43)
[2020-08-23] MEDS: MULTIVITAMINS, THERA 1 EACH TAB PO SCH (08:43)
[2020-08-23] MEDS: ASPIRIN 81 MG PO SCH (08:43)
[2020-08-23] MEDS: ZINC SULFATE 220 MG CAP PO SCH (08:43)
[2020-08-23] MEDS: busPIRone HCl 10 MG TAB PO SCH ×3 (08:43→21:40)
[2020-08-23] MEDS: MEMANTINE 10 MG TAB PO SCH ×2 (08:44→21:40)
[2020-08-23] MEDS: PARoxetine 20 MG TAB PO SCH (08:44)
[2020-08-23] MEDS: LORazepam 1 MG TAB PO PRN ×2 (08:44→18:02)
[2020-08-23] MEDS: GABAPENTIN 400 MG CAP PO SCH ×3 (08:44→21:40)
[2020-08-23] MEDS: TOPIRAMATE 100 MG TAB PO SCH ×2 (08:44→21:41)
[2020-08-23] MEDS: FOLIC ACID 1 MG TAB PO SCH (08:44)
[2020-08-23] MEDS: ASCORBIC ACID 500 MG TAB PO SCH (08:44)
[2020-08-23] MEDS: hydroCHLOROthiazide 25 MG TAB PO SCH (08:44)
[2020-08-23] MEDS: VERAPAMIL 40 MG TAB PO SCH (08:46)
[2020-08-23] MEDS: methocarbamoL 750 MG TAB PO SCH ×3 (08:46→21:41)
--- NOTE | 2020-08-23 08:57 | P.CNNES ---
History of Present Illness Consult date: 08/22/20 Requesting physician: Juni Betancur Reason for Consult: Multiple sclerosis History of Present Illness: Patient is a 54-year-old female with history of relapsing remitting multiple sclerosis, peripheral neuropathy, hypertension, fibromyalgia and tobacco use, known to neurology service with multiple admissions in the past for MS exacerbations. On the last visit, she was seen by Dr. Jayden Javier, when she had complained of headache, different type. Patient underwent lumbar puncture in which his opening pressure was 37 cm. Patient does not know any diagnosis of pseudotumor cerebri. She states that she has trigeminal neuralgia. Patient states "They didn't tell me anything about headache, they removed fluid. I have trigeminal neuralgia". Patient states that the headache on the last admission was very severe, rated 20 on a scale of 1-10 where 10 is the worst headache. At that time it involved the entire left side of the head. On this admission, she is complaining of burning sizzling headache pain pointing to the right occipital region, which he rates 10 on the same scale, with some significant pressure in the left frontal orbital region. She states that this headache started gradually getting worse in the last 1 week. The symptoms got much worse on Thursday, 4 days ago She has not seen an limousine driver. Patient is currently taking Topamax 100 mg twice a day. She also states that she came to the hospital because of myoclonic type jerks. She keeps him dropping things from the right hand. Even when she gets up, she jerks and falls back on the bed. Patient also complains of some tingling in the right hand. Also complains of increased stuttering. She states that she had suffered from 2 falls at home. Patient has received Moderna vaccine on 07/16/2020 and 08/13/2020. She was not sure if it is reaction to the vaccine. Patient states that something that happened last night. The nurse asked her about her birthday, the current year and the month and the president and she could not answer. She got scared, as she couldn't come up with the answers. Patient has history of MS diagnosed 8 years ago after she was having recurrent falls. Patient has "signs of MS" in her brain and spine. Patient has previously tried Copaxone and Tecfidera, had severe side effects from later medication. Patient most recently has been on Ocrevus since July 2018. Her last dose was on in April 2020, and the next dose is due in October 2020. Elidia solano follows up with Dr. Bates. Patient states she has smoked 1 pack per day on her adult life (since her 20s) off and on. Review of [facility], has some fever, no chills. Complains of jerks. Denies double vision. Denies loss of vision. Denies hoarseness, sore throat, dysphagia. Denies abdominal pain nausea vomiting diarrhea. Denies any chest pain. Co mplains of generalized weakness. Tingling of the left hand. All other 14 points of review of systems reviewed and noncontributory. Past Medical History Past Medical History: Asthma, Cancer, COPD, Eye Disorder, Fibromyalgia, GERD/Reflux, Hearing Disorder / Deafness, Hypertension, Memory Impairment, Neurologic Disorder, Osteoarthritis (OA), Pneumonia, Syncope Additional Past Medical History / Comment(s): MS relapsing/remitting type, chronic bilateral eye pain/optic neuritis/ poor vision, cataracts bilaterally, chronic occipital neuralgia, osteoporosis, RLS, chronic hypoxic respiratory failure with home oxygen 2L/NC prn, chronic bronchitis, immunocompromised, elevated blood sugar with steroid use, uterine cancer with hysterect mick/radiation, heart murmur, mild cognitive impairment, chronic vertigo, falls, rheumatic fever as child, tinnitis bilaterally, allergic rhinitis. History of Any Multi-Drug Resistant Organisms: None Reported Past Surgical History: Bladder Surgery, Heart Catheterization, Hysterectomy Additional Past Surgical History / Comment(s): Nerve blocks, bladder suspension. PAIN CLINIC Past Anesthesia/Blood Transfusion Reactions: No Reported Reaction Additional Past Anesthesia/Blood Transfusion Reaction / Comment(s): mild clausterphobia Past Psychological History: Anxiety, Depression Additional Psychological History / Comment(s): Pt resides alone. She uses a cane or walker or wheelchair. She has a private hire nurse aide who organizers her meds in a workforce planner but pt takes her own meds, aide assists her with her ADLs. This aide also prepares meals/shopping and cleaning. Pt does not drive, she has her friends take her to appts or sometimes her aide drives her. Smoking Status: Current every day smoker Past Alcohol Use History: Rare Additional Past Alcohol Use History / Comment(s): Patient started smoking at age 18 and has smoked on and off since then. She is currently smoking 1 pack per day. TRYING TO QUIT Past Drug Use History: None Reported - Past Family History Mother Family Medical History: CVA/TIA, Myocardial Infarction ([place]) Additional Family Medical History / Comment(s): Mother is alive at age 75 with history of brain aneurysm, 3 strokes and 2 myocardial infarctions. Brain aneurysms run on mother's side of family Father Additional Family Medical History / Comment(s): Father at age 72 from a cardiac arrest thought to be due to a myocardial infarction. Sister(s) Additional Family Medical History / Comment(s): Patient has 2 sisters with no major medical problems. Patient does not have any brothers. Patient has 2 adult children with no major medical problems. Patient is only family member with MS. Medications and Allergies Home Medications Medication Instructions Recorded Confirmed Type Aspirin 81 mg PO DAILY 02/20/14 08/21/20 History LORazepam [Ativan] 1 mg PO TID PRN 02/20/14 08/21/20 History Verapamil HCl [Calan] 120 mg PO DAILY 02/20/14 08/21/20 History Butalb/APAP/Caff 50-325-40Mg 1 tab PO Q8H PRN 03/25/17 08/21/20 History [Fioricet 50-325-40] rOPINIRole HCL [Requip] 0.25 mg PO TID #90 tab 01/31/18 08/21/20 Rx Budesonide/Formoterol Fumarate 2 puff INHALATION RT-BID 05/06/18 08/21/20 History [Symbicort 160-4.5 Mcg Inhaler] Cholecalciferol [Vitamin D3 (25 50 mcg PO DAILY 05/07/18 08/21/20 History Mcg = 1000 Iu)] Multivitamins, Thera [Multivitamin 1 tab PO DAILY 05/07/18 08/21/20 History (formulary)] PARoxetine [Paxil] 40 mg PO DAILY tab 05/09/18 08/21/20 Rx Pantoprazole Sodium [Protonix] 40 mg PO BID 10/31/18 08/21/20 History Ipratropium-Albuterol Nebulize 3 ml INHALATION RT-QID PRN 11/22/18 08/21/20 History [Duoneb 0.5 mg-3 mg/3 ml Soln] Memantine [Namenda] 10 mg PO BID 11/22/18 08/21/20 History Montelukast [Singulair] 10 mg PO DAILY 11/22/18 08/21/20 History hydroCHLOROthiazide [Hydrodiuril] 25 mg PO DAILY tab 11/26/18 08/21/20 Rx Fluticasone Nasal [place] [Flonase 2 spray EA NOSTRIL DAILY PRN 04/28/19 08/21/20 History Nasal [place]] Methocarbamol [Robaxin-750] 750 mg PO TID 04/28/19 08/21/20 History Folic Acid 1 mg PO DAILY #30 tab 05/02/19 08/21/20 Rx busPIRone HCl [Buspar] 10 mg PO TID #90 tab 05/02/19 08/21/20 Rx Albuterol Sulfate [Ventolin HFA] 1 - 2 puff INHALATION RT-Q6H PRN 08/09/19 08/21/20 History Ascorbic Acid [Vitamin C] 1,000 mg PO DAILY 01/30/20 08/21/20 History Docusate [Colace] 100 mg PO DAILY PRN 01/30/20 08/21/20 History Zinc Gluconate [Zinc] 25 mg PO DAILY 01/30/20 08/21/20 History Diclofenac Sodium Gel [Voltaren 2 gm TOPICAL QID PRN #0 03/26/20 08/21/20 History Gel] Ear Drops (Unknown) 1 dose LEFT EAR DIRECTED PRN 03/26/20 08/21/20 History Elderberry Fruit and Flower [Black 1 cap PO DAILY 06/14/20 08/21/20 History Elderberry 575 mg Cap] Turmeric Root Extract [Turmeric] 500 mg PO DAILY 06/14/20 08/21/20 History oxyCODONE HCL/ACETAMINOPHEN 1 tab PO TID PRN 08/03/20 08/21/20 History [Percocet 7.5-325 mg] Gabapentin 800 mg PO TID 08/21/20 08/21/20 History Topiramate [Topamax] 100 mg PO BID 08/21/20 08/21/20 History Allergies Allergy/AdvReac Type Severity Reaction Status Date / Time baclofen AdvReac URINARY Verified 08/21/20 10:38 ISSUES dexamethasone [From Decadron] AdvReac "THOMPSON Verified 08/21/20 10:38 SKIN"/DEHYDRATION Physical Examination - Vital Signs Vital Signs: Vital Signs Temp Pulse Pulse Resp BP Pulse Ox 08/22/20 16:00 79 08/22/20 15:40 83 08/22/20 12:07 102 H 08/22/20 11:52 100 08/22/20 04:00 67 18 107/59 99 08/22/20 00:00 92 18 115/71 96 08/21/20 20:04 100 08/21/20 20:00 98.3 F 81 18 119/67 94 L 08/21/20 19:54 102 H 08/21/20 18:20 98.9 F 97 16 111/72 97 Intake and Output 08/22/20 08/22/20 08/22/20 06:59 14:59 22:59 Other: # Voids 1 1 # Bowel Movements 1 Weight 103.1 kg Patient is a middle aged Afro-Iranian female, in no acute distress. Patient is alert awake oriented to time place and person. Speech and language functions are normal, with no aphasia or dysarthria. Patient has frequent stuttering noticed. Attention, concentration and fund of knowledge is adequate. On cranial examination, pupils are round and reacting to light, visual schwarz are full on confrontation, extraocular muscles are intact with no nystagmus. Face is symmetric, tongue protrudes to the midline. Palatal elevation and se nsation normal, hearing and shoulder shrug normal, facial sensation normal. Shoulder shrug normal. On muscle strength testing, there is no pronator drift and the strength is normal in arms and legs distally and proximally. Deep tendon reflexes are symmetric, trace in the upper limbs, 1 at the knees, 2 ankles and plantars downgoing Sensory to touch is equal with no neglect. Cerebellar function showed no ataxia for [id number] testing. No dysdiadochokinesia. Tone and bulk of muscles normal. Gait deferred. On general examination, there is no carotid bruit or murmur, S1-S2 audible. Ab domen is soft nontender. Chest is clear. Peripheral pulses are present. No edema. Results - Laboratory Findings CBC and BMP: 08/22/20 08:58 08/22/20 08:58 Abnormal Lab Findings: Abnormal Labs 0408/21/20 08/21/20 07:58 07:58 07:58 WBC 17.4 H Hct 51.1 H MCV MCHC 30.6 L Neutrophils # 13.6 H Sodium 136 L Potassium 3.3 L Chloride 88 L Carbon Dioxide 39 H Glucose 139 H Calcium AST 47 H Troponin I 0.058 H* HDL Cholesterol 08/21/20 08/21/20 08/21/20 07:58 11:40 14:54 WBC Hct MCV MCHC Neutrophils # Sodium Potassium Chloride Carbon Dioxide Glucose Calcium AST Troponin I 0.044 H* 0.049 H* HDL Cholesterol 30 L 08/22/20 08/22/20 08:58 08:58 WBC 13.0 H Hct 48.1 H MCV 100.7 H MCHC Neutrophils # Sodium Potassium 3.1 L Chloride 92 L Carbon Dioxide 38 H Glucose 133 H Calcium 8.2 L AST Troponin I HDL Cholesterol Assessment and Plan Assessment: * Relapsing remitting multiple sclerosis * Right occipital burning, sizzling pain, with pressure in the left frontal region. Patient has possible pseudotumor cerebri. Uncertain if with this headache is related to occipital neuralgia, or pseudotumor. * History of migraine headaches, currently on Topamax. * Myoclonic jerks, possible metabolic * Chronic fatigue * Hypertension * Morbid obesity * Fibromyalgia * COPD * Chronic tobacco use * Positive JCV antibodies 0.94 Plan: * It is not very clear, whether her cephalgia is related to right occipital neuralgia or recurrence of pseudotumor cerebri. Although the right occipital headache could be explained by occipital neuralgia, but pressure headache on the left frontal region is of unclear cause. We will check lumbar puncture to check for opening pressure to assess for exacerbation of possible pseudotumor cerebri. We will send CSF for glucose, proteins, cell count, Gram stain and MS panel. If the opening pressure is high, would recommend removing at least 15-20 mL of spinal fluid to bring closing pressure to <19. I discussed with patient, and she agreed to proceed with a lumbar puncture. * I do not see any definitive evidence of MS exacerbation at this time. Her examination is nonfocal, unchanged from last exam. Would hold off on high- dose steroids at this time. * Patient's previous blood tests shows negative Lyme titer, hepatitis panel, HIV, Patria 1 antibodies, PATTERN CHANGER, scleroderma antibodies, dsDNA, histone antibodies, Sjogren's antibodies, C&P ANCA and CCP. * Her previous CSF from 03/27/2020 shows 0 RBC, 0 WBC, glucose 70, protein 44 (12-60), negative oligoclonal bands and CSF angiotensin converting enzyme level. * Patient counseled about tobacco cessation, particularly given her history of multiple sclerosis
[2020-08-23 09:20] LABS: African American GFR (CKD) >90 (>60 ml/min/1.73 sqM); Anion Gap 5 mmol/L; Blood Urea Nitrogen 8 mg/dL (7-17); Calcium 8.9 mg/dL (8.4-10.2); Carbon Dioxide 35 mmol/L (22-30); Chloride 99 mmol/L (98-107); Glucose 121 mg/dL (74-99); LDH 512 U/L (313-618); Non-African American GFR(CKD) >90 (>60 ml/min/1.73 sqM); Potassium 3.5 mmol/L (3.5-5.1); Sodium 139 mmol/L (137-145)
[2020-08-23] MEDS: oxyCODONE-APAP 7.5-325MG 1 EACH TAB PO PRN ×2 (09:39→18:02)
[2020-08-23 09:56] LABS: HCT 50.9 % (34.0-46.0); HGB 15.5 gm/dL (11.4-16.0); Hypochromasia Marked; MCH 30.7 pg (25.0-35.0); MCHC 30.4 g/dL (31.0-37.0); MCV 101.2 fL (80.0-100.0); Macrocytosis Slight; Mean Platelet Volume 8.4; Platelet Count 238 k/uL (150-450); RBC 5.03 m/uL (3.80-5.40); RDW 13.4 % (11.5-15.5)
--- NOTE | 2020-08-23 10:25 | CONS ---
CONSULTATION DATE OF SERVICE: 08/22/2020 REASON FOR CONSULTATION: Fever. HISTORY OF PRESENT ILLNESS: The patient is a 54-year-old female with a past medical history significant for multiple sclerosis, history of trigeminal neuralgia in this patient who presented to [facility] yesterday morning for evaluation of headache. The pain started on 17 of this month. The patient has been complaining of headaches to be severe in nature with severity of almost 20 out of 10 on presentation to the hospital. The patient also complaining of jerking motion to the left upper extremity, of the sound and unable to complete her sentences. The patient is complaining of some nausea, but no vomiting. The patient denies having any chest pain or shortness of breath, very minimal cough. She is also complaining of lower abdominal pain, more of a dull aching intensity 4-5 out of 10 and no radiation. Denies having any diarrhea or constipation, though has felt nauseated and decreased oral intake. The patient denies having any burning or frequency of urine. With these symptoms, the patient was evaluated by the ER physician. On arrival to the ER, the patient did have a low-grade fever of 100 degrees Fahrenheit. The patient did have a white count of 17.4, repeat is 13,000. The patient did have a normal creatinine. Troponins are mildly elevated. AST was mildly elevated. ALT normal. The patient did have a normal UA. Chest x-ray has been reported cardiomegaly without acute pulmonary process. Infectious Disease was consulted for her fever. REVIEW OF SYSTEMS: Positive points have been mentioned in HPI. Rest of the systems are negative. PAST MEDICAL HISTORY: Chronic obstructive pulmonary disease, asthma, fibromyalgia, gastroesophageal reflux disease, hypertension, osteoarthritis, pneumonia, syncope, multiple sclerosis, and trigeminal neuralgia. PAST SURGICAL HISTORY: Bladder suspension, PTCA with stent, hysterectomy. SOCIAL HISTORY: Current everyday smoker. Rarely drinks. No drug use. FAMILY HISTORY: Mother history of CVA, TIA and [place]. ALLERGIES: Allergies to BACLOFEN and DEXAMETHASONE. MEDICATIONS: Medications include the patient is currently on Fioricet, DuoNeb, vitamin C, aspirin, Symbicort, BuSpar, vitamin D3, Colace, Neurontin, heparin subcu, hydrochlorothiazide, Ativan, melatonin, Namenda, Robaxin, Singulair, Theragran, nicotine patch, Nitrostat, Protonix, Paxil, Requip, Topamax, zinc sulfate. PHYSICAL EXAMINATION: Blood pressure 107/71 with a pulse of 78, temperature is 97.7, T-max a 100. She is 96% on 2 L nasal cannula. General description is a middle-aged female up in the bed in no distress. No tachypnea or accessory muscles of respiration use. HEENT: Examination shows no pallor or scleral icterus. Oral mucous membrane is moist. NECK: Trachea central. No thyromegaly. LUNGS: Unlabored breathing, decreased breath sounds. No wheeze or crackle. HEART: S1, S2. Regular rate and rhythm. ABDOMEN: Soft, mildly tender lower abdominal area. No guarding. No rigidity. No organomegaly. EXTREMITIES: No edema of the feet. SKIN EXAMINATION: No rash or mass palpable. NEUROLOGICAL: Patient is awake, alert, oriented x3. Mood and affect normal. LABS: Hemoglobin is 14.9, white count 13. Admission white count 17. BUN of 14, creatinine 0.60. Troponins are mildly elevated. Urine was negative. [place] PCR was negative. COVID testing was negative. Chest x-ray did not show any consolidation. DIAGNOSTIC IMPRESSION: Patient admitted to the hospital with multiple symptoms in this patient who did have history of multiple sclerosis as well trigeminal neuralgia has symptoms of headache. Also complaining of some abdominal pain in this patient's initial workup including a UA, chest x-ray has been negative, with no evidence of any cellulitis with concern for possible intraabdominal source for her fever. PLAN: 1. We will obtain a CT of abdomen and pelvis with oral contrast. 2. Will empirically add Unasyn 3 grams q.6 hours. 3. We will follow her clinical condition and culture to further adjust medication if needed. Thank you for this consultation. Will follow this patient along with you. MMODL / IJN: [id number] / ALEXIS
--- NOTE | 2020-08-23 10:54 | CT ---
EXAMINATION TYPE: CT abdomen pelvis w con DATE OF EXAM: 08/23/2020 COMPARISON: 01/30/2020 HISTORY: Generalized pain with constipation CT DLP: 1996.2 mGycm CONTRAST: CT scan of the abdomen and pelvis is performed with Oral Contrast and with IV Contrast, patient injec kevin with 100 mL of Isovue 300. FINDINGS: LUNG BASES-: No visible nodule. No infiltrate. LIVER/GB: No calcified gallstones. Simple system of the liver left lobe measuring 2 cm. Biliary sandy e is of normal caliber. PANCREAS: No inflammation. No distinct mass. SPLEEN: No splenic enlargement. No lesion seen. ADRENALS: No nodule. No thickening. KIDNEYS/BLADDER: No hydronephrosis. No nephrolithiasis. No distinct renal mass. Urinary bladder g rossly unremarkable. BOWEL: Normal appendix. Normal bowel caliber. No inflammation. The stomach is poorly distended. GENITAL ORGANS: Hysterectomy changes noted. Tiny right ovarian cyst measuring 1.5 cm. Left ovary is u nremarkable. LYMPH NODES: No greater than 1cm abdominal or pelvic lymph nodes are appreciated. AORTA: No significant abnormality. OSSEOUS STRUCTURES: No significant abnormality is seen. OTHER: No significant additional abnormality is seen. IMPRESSION: 1. No significant abnormality to account for the patient's symptoms.
[2020-08-23] MEDS ORDERED: LACTATED RINGERS 1,000 ML IV ONE (13:28)
[2020-08-23] MEDS ORDERED: MIDAZOLAM 2 MG/2 ML VIAL ONE (13:39)
[2020-08-23] MEDS ORDERED: fentaNYL (PF) 50 MCG/ML 2 ML AMP ONE (13:39)
--- NOTE | 2020-08-23 14:06 | P.PCN ---
Date of Procedure: 08/23/20 Procedure(s) Performed: Preoperative diagnosis: Pseudotumor cerebri Post operative diagnoses: Pseudotumor cerebri every Procedure= lumbar puncture Anesthesia = moderate sedation with Versed 2 mg and fentanyl 100 g intravenously ,and local infiltration with lidocaine 1% 4 mL. Condition: stable Complication: none. Description of the procedure procedure risk and benefits discussed with the patient and family, consent signed. Patient and the procedure area placed in left lateral position , monitors applied to the patient , sedation was given to decrease the patient's anxiety back prepped with chlorhexidine 3 times been local infiltration of the skin and subcutaneous tissue with lidocaine 1% 2 mL for skin and subcu interstitial frustrations at L4 5 levels then 22-gauge Quincke-type needle advanced slowly at L4- 5 interlaminar space there was positive cerebrospinal fluid which was clear, no heme, no paresthesia ,total of 17 ML of clear cerebrospinal fluid collected in 4 different tubes 4-5 mL in each, then the needle removed and a Band-Aid applied and patient tolerated the procedure well without any complications. opening pressure= 29 cm of water Closing pressure =21 cm of water ( after removal of 17 mL of clear cerebrospinal fluid )
[2020-08-23] MEDS ORDERED: HYDROmorphone 0.5 MG/0.5 ML SYRINGE IVP PRN (14:16)
--- NOTE | 2020-08-23 14:21 | P.PN ---
Subjective Progress Note Date: 08/23/20 This is a 54 year old female patient of Dr. Tabares and Dr. Ramirez with a past medical history of relapsing remitting multiple sclerosis, hypertension and hypertensive cardiovascular disease with left ventricular hypertrophy, history of GERD, multiple sclerosis, COPD, asthma, history of osteoporosis, uterine cancer status post surgery, chronic hypoxic respiratory failure on home O2 at 2 L nasal cannula, daily tobacco use. She has had multiple admissions for acute exacerbation of her multiple sclerosis. Patient complains of chest pain and fever for 3 days. She states she received her second: 19 vaccine on August 13. She states she has not been able to eat or drink anything and has no appetite. She complains of abdominal pain and constipation. She also complains of a headache. She's had increased weakness and she states that she had difficulty answering questions yesterday. She complains of palpitations and tingling sensation in her chest that lasted a couple days. She complains of a fiery-type headache on the right side. She also states she is dropping things with her hands and has jerking motions of her extremities. Patient came into [facility] emergency center for evaluation. WBC 17.4, hemoglobin 15.6, platelet count 274. Sodium 136, potassium 3.3, chloride 88, CO2 39, BUN 12 and creatinine 0.64. Blood sugar 139. AST 47 otherwise liver function tests are normal. Magnesium 2.0. Troponin 0.058, 0.044 and 0.049. Triglycerides 97, cholesterol 126, LDL 77 and HDL 30. Urinalysis was clear and negative for infection. Influenza testing was negative. Coronavirus PCR not detected. Chest x-ray shows cardiomegaly without new acute process. Patient was admitted to the cardiac stepdown unit and consult in place with cardiology for chest pain, neurology for MS exacerbation, Dr. Cuevas consult added for fever. 08/23 and examined bedside. Continues to have headaches involving the right frontal and radiating to the hospital area. She continues to feel weak. Starting has improved since yesterday. Patient underwent lumbarpuncture and was find a high opening pressure of 29. 17 mL of clear CSF fluid was collected in 4 different tubes the closing pressure of 21 cm of water. CSF sent for studies. Continue Unasyn for infectious disease.. MS exacerbation ruled out by neurology. CT abdomen and pelvis was negative for any acute abdominal process. No episodes of fever noted. Past 24 hours. Leukocytosis has improved to 10 WBC. BUN of 8 creatinine 0.6 glucose mildly elevated CRP 3. Palpitations noted to be anxiety related. Troponin elevation secondary to the palpitations. ACS ruled out. REVIEW OF SYSTEMS Constitutional: Reports intermittent fever, no chills, no night sweats. No weight change. Reports weakness, fatigue or lethargy. No daytime sleepiness. EENT: Reports headache. No blurred vision or double vision, no loss of vision. No loss of Hearing, no ringing in the ears, no dizziness. No nasal drainage or congestion. No epistaxis. No sore throat. Lungs: Reports shortness of breath, reports cough, reports sputum production. No wheezing. Cardiovascular: No chest pain, no lower extremity edema. No palpitations. No paroxysmal nocturnal dyspnea. No orthopnea. No lightheadedness or dizziness. No syncopal episodes. Abdominal: No abdominal pain. No nausea, vomiting. No diarrhea. No const ipation. No bloody or tarry stools.. No loss of appetite. Genitourinary: No dysuria, increased frequency, urgency. No urinary retention. Musculoskeletal: No myalgias. Reports muscle weakness, reports gait dysfunction, no frequent falls. No back pain. No neck pain. Integumentary: No wounds, no lesions. No rash or pruritus. No unusual bruising. No change in hair or nails. Neurologic: No aphasia. No facial droop. No change in mentation. No head injury. No headache. No paralysis. No paresthesia. Reports weakness, improved in the right upper arm. Positive for headache. Stuttering noted Psychiatric: No depression. No anxiety. No mood swings. Endocrine: No abnormal blood sugars. No weight change. Objective - Vital Signs Vital signs: Vital Signs Temp 98 F 08/23/20 13:21 Pulse 89 08/23/20 13:21 Resp 18 08/23/20 13:21 BP 120/81 08/23/20 13: Pulse Ox 95 08/23/20 13:21 Intake & Output 08/22/20 08/23/20 08/23/20 18:59 06:59 18:59 Intake Total 480 1322 50 Output Total 300 Balance 180 1322 50 Weight 106.8 kg Intake: IV 50 Intake, IV Titration 1000 Amount Sodium Chloride 0.9% 1, 1000 000 ml @ 100 mls/hr IV . Q10H [facility] Rx#:[id number] Oral 480 322 0 Output: Urine 300 Other: Voiding Method Toilet Toilet Toilet # Voids 1 1 2 # Bowel Movements 1 1 - Exam PHYSICAL EXAMINATION Gen: This is a morbidly obese 54-year-old -[place] female. She is resting in bed. HEENT: Head is atraumatic, normocephalic. Pupils equal, round. Sclerae is anicteric. NECK: Supple. No JVD. No lymphadenopathy. No thyromegaly. LUNGS: Clear to auscultation. No wheezes or rhonchi. No intercostal retractions. HEART: Regular rate and rhythm. No murmur. ABDOMEN: Soft. Bowel sounds are present. No masses. No abdominal tenderness. EXTREMITIES: No pedal edema. No calf tenderness. NEUROLOGICAL: Patient is awake, alert and oriented x3. Cranial nerves 2 through 12 are grossly intact. No nuchal rigidity. Stuttering noted improved since yesterday - Labs CBC & Chem 7: 08/23/20 08:39 08/23/20 08:39 Labs: Abnormal Lab Results - Last 24 Hours (Table) 08/23/20 08/23/20 08/23/20 Range/Units 08:39 08:39 11:36 Hct 50.9 H (34.0-46.0) % MCV 101.2 H (80.0-100.0) fL MCHC 30.4 L (31.0-37.0) g/dL APTT 21.2 L (22.0-30.0) sec Carbon Dioxide 35 H (22-30) mmol/L Glucose 121 H (74-99) mg/dL C-Reactive Protein 3.0 H (<1.0) mg/dL Assessment and Plan Plan: 1. Chest pain with troponinemia. ACS ruled out. Likely related to anxiety Echocardiogram EF 50-55% no valvular abnormality. Continue aspirin 81 mg daily 2. History of relapsing remitting multiple sclerosis. MS exacerbation ruled out. Consult with neurology. Lumbar triage registered nurse performed on 08/23 MS panel sent 3. Fever of unclear etiology likely abdominal source per infectious disease. On Unasyn. CT abdomen negative for any acute abdominal process. 4. Headache secondary to pseudotumor cerebri. Lumbar puncture on 08/23 showed high opening pressures, 17 mL fluid removed closing pressure of 21 obtained. Toradol ordered for pain control 5. Chronic pain and occipital neuralgia under the care of Dr. Ramirez. Continue gabapentin 800mg 3 times daily, Percocet 7.5 mg one 3 times daily as needed. 5. Hypertension and hypertensive cardiovascular disease. Hydrochlorothiazide 25 mg daily, verapamil 120 mg orally once every day. 6. Obesity with possible obstructive sleep apnea and obesity hypoventilation syndrome. 7. Mild intermittent asthma and COPD. Continue albuterol inhaler every 6 hours as needed, Symbicort twice daily, Singulair 10 mg daily, Flonase as needed. 8. Fibromyalgia. Continue gabapentin 800 mg orally 3 times every day. 8. Generalized anxiety disorder. Continue Ativan 1 mg every 8 hours as needed. 9. Recurrent depression. Continue BuSpar 10 mg 3 times daily. Continue Paxil 40 mg daily. 10. Chronic tobacco use and dependence. Smoking cessation and counseling an increased risk of CAD, CVA, and malignancy. Nicotine patch 14mg. 11. Mild cognitive impairment. Continue patient on Namenda 10 mg orally twice every day. 13. Restless leg syndrome. Continue Requip 0.25 mg 2 times daily 14. DVT prophylaxis. Heparin subcu. 15. GERD and GI prophylaxis. Continue with Protonix 40 mg orally twice every day. CODE STATUS: Full code
[2020-08-23 14:35] LABS: Glucose,CSF 78 mg/dL (40-70); Total Protein,CSF 53 mg/dL (12-60)
[2020-08-23] MEDS: KETOROLAC 15 MG/ML 1 ML VIAL IM SCH ×2 (15:10→23:12)
[2020-08-23] MEDS: SODIUM CHLORIDE 0.9% 1,000 ML IV SCH ×2 (15:10→23:09)
[2020-08-23 15:18] LABS: Appearance,CSF Clear; CSF Tube Number 4; Nucleated Cells, CSF 1 u/L (0-5); Red Blood Cell,CSF 5 u/L (0-10)
--- NOTE | 2020-08-23 15:54 | PN ---
PROGRESS NOTE DATE OF SERVICE: 08/23/2020 REASON FOR FOLLOWUP: Fever. INTERVAL HISTORY: The patient is afebrile. No fever has been recorded last 48 hours. The patient denies having chest pain. She is complaining of cough and some bringing up of sputum. No abdominal pain or diarrhea. PHYSICAL EXAMINATION: Blood pressure 120/70 with a pulse of 83, temperature 98. She is 95% on room air. General description is a middle-aged female up in the chair in no distress. RESPIRATORY SYSTEM: Unlabored breathing, decreased intensity of breath sounds. No wheeze. HEART: S1, S2. Regular rate and rhythm. ABDOMEN: Soft, no tenderness. LABS: Hemoglobin 15.5, white count 10.0. BUN of 8, creatinine 0.61. DIAGNOSTIC IMPRESSION AND PLAN: Patient with fever and multi other symptoms including some abdominal pain with concern for possible abdominal source as initial workup was negative. CT of abdomen and pelvis came back negative. The patient is currently on Unasyn to continue while waiting for the culture to finalize and monitor clinical course closely. MMODL / IJN: [id number] /
[2020-08-23] MEDS: MELATONIN 5 MG TABLET PO SCH (21:40)
[2020-08-23 21:54] LABS: Ferritin 85.3 ng/mL (10.0-291.0)
[2020-08-24] MEDS: KETOROLAC 15 MG/ML 1 ML VIAL IM SCH ×4 (06:32→23:40)
[2020-08-24] MEDS: PANTOPRAZOLE 40 MG TABLET PO SCH ×2 (06:33→16:19)
[2020-08-24] MEDS: AMPICILLIN-SULBACTAM 3 GM in SODIUM CHLORIDE 0.9% 100 ML IVPB SCH ×4 (06:33→23:43)
[2020-08-24] MEDS: SYMBICORT 160-4.5 MCG INHALER INHALATION SCH ×2 (07:28→20:45)
[2020-08-24] MEDS: IPRATROPIUM-ALBUTEROL 3 ML NEB INHALATION PRN ×3 (07:28→15:28)
[2020-08-24] MEDS: HEPARIN SODIUM,PORCINE/PF 5,000 UNIT/0.5 ML SYRINGE SQ SCH ×3 (08:45→23:42)
[2020-08-24] MEDS: VERAPAMIL 40 MG TAB PO SCH (08:45)
[2020-08-24] MEDS: methocarbamoL 750 MG TAB PO SCH ×3 (08:46→21:43)
[2020-08-24] MEDS: ASPIRIN 81 MG PO SCH (08:46)
[2020-08-24] MEDS: MULTIVITAMINS, THERA 1 EACH TAB PO SCH (08:47)
[2020-08-24] MEDS: CHOLECALCIFEROL 25 MCG (1000 IU) TABLET PO SCH (08:47)
[2020-08-24] MEDS: MEMANTINE 10 MG TAB PO SCH ×2 (08:47→21:43)
[2020-08-24] MEDS: ASCORBIC ACID 500 MG TAB PO SCH (08:48)
[2020-08-24] MEDS: MONTELUKAST 10 MG TAB PO SCH (08:48)
[2020-08-24] MEDS: TOPIRAMATE 100 MG TAB PO SCH ×2 (08:48→21:43)
[2020-08-24] MEDS: GABAPENTIN 400 MG CAP PO SCH ×3 (08:48→21:43)
[2020-08-24] MEDS: busPIRone HCl 10 MG TAB PO SCH ×3 (08:48→21:43)
[2020-08-24] MEDS: hydroCHLOROthiazide 25 MG TAB PO SCH (08:48)
[2020-08-24] MEDS: PARoxetine 20 MG TAB PO SCH (08:48)
[2020-08-24] MEDS: FOLIC ACID 1 MG TAB PO SCH (08:48)
[2020-08-24] MEDS: ZINC SULFATE 220 MG CAP PO SCH (08:49)
[2020-08-24] MEDS: NICOTINE 14MG/24HR PATCH TRANSDERM SCH (08:54)
--- NOTE | 2020-08-24 09:16 | P.PN ---
Subjective Progress Note Date: 08/23/20 Patient was seen at around 2 PM. Patient was seen for a follow-up. Patient is sitting comfortably in the recliner. Offers no new complaints. Complaining of headache 8.5 in the right occipital region, and after pain medication came down to 5. Still with pressure in the left frontal orbital region. Patient is going for lumbar puncture today at 2:30 PM. No new concerns. Objective - Vital Signs Vital signs: Vital Signs Temp 97.7 F 08/23/20 15:17 Pulse 100 08/23/20 21:07 Resp 16 08/23/20 15:17 BP 112/63 08/23/20 15:17 Pulse Ox 96 08/23/20 15:17 Intake & Output 08/23/20 08/23/20 08/24/20 06:59 18:59 06:59 Intake Total 1322 830 Balance 1322 830 Weight 106.8 kg Intake: IV 50 Intake, IV Titration 1000 Amount Sodium Chloride 0.9% 1, 1000 000 ml @ 100 mls/hr IV . Q10H [facility] Rx#:[id number] Oral 322 780 Other: Voiding Method Toilet Toilet # Voids 1 1 # Bowel Movements 1 - Exam Patient's mental status, speech and language functions are normal. No pronator drift. No myoclonic jerks. No tremors. - Labs CBC & Chem 7: 08/23/20 08:39 08/23/20 08:39 Labs: Abnormal Lab Results - Last 24 Hours (Table) 08/23/20 08/23/20 08/23/20 Range/Units 08:39 08:39 08:39 Hct 50.9 H (34.0-46.0) % MCV 101.2 H (80.0-100.0) fL MCHC 30.4 L (31.0-37.0) g/dL APTT (22.0-30.0) sec Carbon Dioxide 35 H (22-30) mmol/L Glucose 121 H (74-99) mg/dL C-Reactive Protein 3.0 H (<1.0) mg/dL Procalcitonin 0.18 H (0.02-0.09) ng/mL CSF Glucose (40-70) mg/dL 08/23/20 08/23/20 Range/Units 11:36 13:42 Hct (34.0-46.0) % MCV (80.0-100.0) fL MCHC (31.0-37.0) g/dL APTT 21.2 L (22.0-30.0) sec Carbon Dioxide (22-30) mmol/L Glucose (74-99) mg/dL C-Reactive Protein (<1.0) mg/dL Procalcitonin (0.02-0.09) ng/mL CSF Glucose 78 H (40-70) mg/dL Microbiology - Last 24 Hours (Table) 08/23/20 13:42 CSF Gram Stain - Preliminary Cerebral Spinal Fluid CSF Culture - Preliminary Assessment and Plan Assessment: * Relapsing remitting multiple sclerosis * Right occipital burning, sizzling pain, with pressure in the left frontal region. Patient has possible pseudotumor cerebri. Uncertain if with this headache is related to occipital neuralgia, or pseudotumor. * History of migraine headaches, currently on Topamax. * Myoclonic jerks, possible metabolic * Chronic fatigue * Hypertension * Morbid obesity * Fibromyalgia * COPD * Chronic tobacco use * Positive JCV antibodies 0.94 Plan: * Patient to undergo lumbar puncture today by anesthesia. * I do not see any definitive evidence of MS exacerbation at this time. Her examination is nonfocal, unchanged from last exam. Would hold off on high- dose steroids at this time. * Patient's previous blood tests shows negative Lyme titer, hepatitis panel, HIV, Patria 1 antibodies, ELECTRICIAN TELEPHONE, scleroderma antibodies, dsDNA, histone antibodies, Sjogren's antibodies, C&P ANCA and CCP. * Her previous CSF from 03/27/2020 shows 0 RBC, 0 WBC, glucose 70, protein 44 (12-60), negative oligoclonal bands and CSF angiotensin converting enzyme level. * Patient counseled about tobacco cessation, particularly given her history of multiple sclerosis * We will follow after lumbar puncture.
[2020-08-24] MEDS: SODIUM CHLORIDE 0.9% 1,000 ML IV SCH ×2 (10:34→21:42)
[2020-08-24] MEDS ORDERED: RX INFO: IV CONTRAST WAS GIVEN 1 EACH MISC MISCELLANE PRN (10:36)
[2020-08-24 12:14] LABS: IgG - CSF 0.8 mg/dL (0.0 - 3.4); Immunoglobulin G 348 mg/dL (700 - 1600)
[2020-08-24 12:51] LABS: African American GFR (CKD) >90 (>60 ml/min/1.73 sqM); Anion Gap 6 mmol/L; Blood Urea Nitrogen 9 mg/dL (7-17); Calcium 9.1 mg/dL (8.4-10.2); Carbon Dioxide 33 mmol/L (22-30); Chloride 98 mmol/L (98-107); Glucose 115 mg/dL (74-99); Non-African American GFR(CKD) >90 (>60 ml/min/1.73 sqM); Potassium 3.5 mmol/L (3.5-5.1); Sodium 137 mmol/L (137-145)
--- NOTE | 2020-08-24 14:25 | P.PN ---
Subjective Progress Note Date: 08/24/20 This is a 54 year old female patient of Dr. Tabares and Dr. Ramirez with a past medical history of relapsing remitting multiple sclerosis, hypertension and hypertensive cardiovascular disease with left ventricular hypertrophy, history of GERD, multiple sclerosis, COPD, asthma, history of osteoporosis, uterine cancer status post surgery, chronic hypoxic respiratory failure on home O2 at 2 L nasal cannula, daily tobacco use. She has had multiple admissions for acute exacerbation of her multiple sclerosis. Patient complains of chest pain and fever for 3 days. She states she received her second: 19 vaccine on August 13. She states she has not been able to eat or drink anything and has no appetite. She complains of abdominal pain and constipation. She also complains of a headache. She's had increased weakness and she states that she had difficulty answering questions yesterday. She complains of palpitations and tingling sensation in her chest that lasted a couple days. She complains of a fiery-type headache on the right side. She also states she is dropping things with her hands and has jerking motions of her extremities. Patient came into [facility] emergency center for evaluation. WBC 17.4, hemoglobin 15.6, platelet count 274. Sodium 136, potassium 3.3, chloride 88, CO2 39, BUN 12 and creatinine 0.64. Blood sugar 139. AST 47 otherwise liver function tests are normal. Magnesium 2.0. Troponin 0.058, 0.044 and 0.049. Triglycerides 97, cholesterol 126, LDL 77 and HDL 30. Urinalysis was clear and negative for infection. Influenza testing was negative. Coronavirus PCR not detected. Chest x-ray shows cardiomegaly without new acute process. Patient was admitted to the cardiac stepdown unit and consult in place with cardiology for chest pain, neurology for MS exacerbation, Dr. Cuevas consult added for fever. 08/23 and examined bedside. Continues to have headaches involving the right frontal and radiating to the hospital area. She continues to feel weak. Starting has improved since yesterday. Patient underwent lumbarpuncture and was find a high opening pressure of 29. 17 mL of clear CSF fluid was collected in 4 different tubes the closing pressure of 21 cm of water. CSF sent for studies. Continue Unasyn for infectious disease.. MS exacerbation ruled out by neurology. CT abdomen and pelvis was negative for any acute abdominal process. No episodes of fever noted. Past 24 hours. Leukocytosis has improved to 10 WBC. BUN of 8 creatinine 0.6 glucose mildly elevated CRP 3. Palpitations noted to be anxiety related. Troponin elevation secondary to the palpitations. ACS ruled out. 08/24 patient examined bedside. Continues to have mild headaches and feeling of unwell. Headache has improved since yesterday with removal of fluid from lumbar puncture. CSF fluid appears benign on assessment of patient's vital patient had no fever since admission, pulse is 81 blood pressure 1:30/74 oxygen saturation 94% no need. Labs suggest improvement in leukocytosis from 13-10 and CBC 5. D- dimer normal. BUN/creatinine normal. Detailed discussion was made with infectious disease, since no possible source of infection identified. CT head with contrast will be ordered. Patient be discharged on Augmentin if CT head with contrast negative. Since patient does not feel well we'll monitor for another 24-48 hours. Patient may benefit from trigger shots by anesthesiology if no improvement in headaches REVIEW OF SYSTEMS Constitutional: Reports intermittent fever, no chills, no night sweats. No weight change. Reports weakness, fatigue or lethargy. No daytime sleepiness. EENT: Reports headache. No blurred vision or double vision, no loss of vision. No loss of Hearing, no ringing in the ears, no dizziness. No nasal drainage or congestion. No epistaxis. No sore throat. Lungs: Reports shortness of breath, reports cough, reports sputum production. No wheezing. Cardiovascular: No chest pain, no lower extremity edema. No palpitations. No paroxysmal nocturnal dyspnea. No orthopnea. No lightheadedness or dizziness. No syncopal episodes. Abdominal: No abdominal pain. No nausea, vomiting. No diarrhea. No constipation. No bloody or tarry stools.. No loss of appetite. Genitourinary: No dysuria, increased frequency, urgency. No urinary retention. Musculoskeletal: No myalgias. Reports muscle weakness, reports gait dysfunction, no frequent falls. No back pain. No neck pain. Integumentary: No wounds, no lesions. No rash or pruritus. No unusual bruising. No change in hair or nails. Neurologic: No aphasia. No facial droop. No change in mentation. No head injury. No headache. No paralysis. No paresthesia. Reports weakness, improved in the right upper arm. Positive for headache. Stuttering noted Psychiatric: No depression. No anxiety. No mood swings. Endocrine: No abnormal blood sugars. No weight change. Objective - Vital Signs Vital signs: Vital Signs Temp 98.5 F 08/24/20 12:23 Pulse 81 08/24/20 12:23 Resp 17 08/24/20 12:23 BP 130/74 08/24/20 12:23 Pulse Ox 94 L 08/24/20 12:23 Intake & Output 08/23/20 08/24/20 08/24/20 18:59 06:59 18:59 Intake Total 830 240 Output Total 200 Balance 830 -200 240 Weight 108.3 kg Intake: IV 50 Oral 780 240 Output: Urine 200 Other: Voiding Method Toilet Toilet # Voids 1 1 2 # Bowel Movements 1 1 - Exam PHYSICAL EXAMINATION Gen: This is a morbidly obese 54-year-old -[place] female. She is resting in bed. HEENT: Head is atraumatic, normocephalic. Pupils equal, round. Sclerae is a nicteric. NECK: Supple. No JVD. No lymphadenopathy. No thyromegaly. LUNGS: Clear to auscultation. No wheezes or rhonchi. No intercostal retractions. HEART: Regular rate and rhythm. No murmur. ABDOMEN: Soft. Bowel sounds are present. No masses. No abdominal tenderness. EXTREMITIES: No pedal edema. No calf tenderness. NEUROLOGICAL: Patient is awake, alert and oriented x3. Cranial nerves 2 through 12 are grossly intact. No nuchal rigidity. Stuttering noted improved since yesterday - Labs CBC & Chem 7: 08/23/20 08:39 08/24/20 11:32 Labs: Abnormal Lab Results - Last 24 Hours (Table) 08/22/20 08/23/20 08/23/20 Range/Units 08:58 08:39 13:42 Carbon Dioxide (22-30) mmol/L Glucose (74-99) mg/dL Procalcitonin 0.18 H (0.02-0.09) ng/mL CSF Glucose 78 H (40-70) mg/dL IgG 348 L (700 - 1600) mg/dL 08/24/20 Range/Units 11:32 Carbon Dioxide 33 H (22-30) mmol/L Glucose 115 H (74-99) mg/dL Procalcitonin (0.02-0.09) ng/mL CSF Glucose (40-70) mg/dL IgG (700 - 1600) mg/dL Microbiology - Last 24 Hours (Table) 08/23/20 13:42 CSF Gram Stain - Preliminary Cerebral Spinal Fluid CSF Culture - Preliminary Assessment and Plan Plan: 1. Chest pain with troponinemia. ACS ruled out. Likely related to anxiety Echocardiogram EF 50-55% no valvular abnormality. Continue aspirin 81 mg daily 2. History of relapsing remitting multiple sclerosis. MS exacerbation ruled out. Consult with neurology. Lumbar top inventory control executive performed on 08/23 MS panel sent 3. Fever of unclear etiology abdominal source ruled out On Unasyn. Augmentin for 7 days on discharge. UA negative. CSF fluids negative for meningitis. Chest x-ray negative for acute process. CT abdomen negative for any acute abdominal process. CT head with contrast ordered 4. Headache secondary to pseudotumor cerebri. Lumbar puncture on 08/23 showed high opening pressures, 17 mL fluid removed closing pressure of 21 obtained. Toradol ordered for pain control. If no improvement in headaches can benefit from anesthesiology consult for trigger injections for trigeminal neuralgia 5. Chronic pain and occipital neuralgia under the care of Dr. Ramirez. Continue gabapentin 800mg 3 times daily, Percocet 7.5 mg one 3 times daily as needed. 5. Hypertension and hypertensive cardiovascular disease. Hydrochlorothiazide 25 mg daily, verapamil 120 mg orally once every day. 6. Obesity with possible obstructive sleep apnea and obesity hypoventilation syndrome. 7. Mild intermittent asthma and COPD. Continue albuterol inhaler every 6 hours as needed, Symbicort twice daily, Singulair 10 mg daily, Flonase as needed. 8. Fibromyalgia. Continue gabapentin 800 mg orally 3 times every day. 8. Generalized anxiety disorder. Continue Ativan 1 mg every 8 hours as needed. 9. Recurrent depression. Continue BuSpar 10 mg 3 times daily. Continue Paxil 40 mg daily. 10. Chronic tobacco use and dependence. Smoking cessation and counseling an increased risk of CAD, CVA, and malignancy. Nicotine patch 14mg. 11. Mild cognitive impairment. Continue patient on Namenda 10 mg orally twice every day. 13. Restless leg syndrome. Continue Requip 0.25 mg 2 times daily 14. DVT prophylaxis. Heparin subcu. 15. GERD and GI prophylaxis. Continue with Protonix 40 mg orally twice every day. CODE STATUS: Full code
--- NOTE | 2020-08-24 14:58 | CT ---
EXAMINATION TYPE: CT brain w con DATE OF EXAM: 08/24/2020 COMPARISON: 03/29/2020 HISTORY: Headache and fever. CT DLP: 1086.4 mGycm Automated exposure control for dose reduction was used. CONTRAST: CT scan of the head is performed with IV Contrast, patient injected with 100 mL of Isovue 300. FINDINGS: There is no abnormal enhancing mass or midline shift identified. The ventricles and sulci are within normal limits in size. The globes are intact and the visualized sinuses are clear. IMPRESSION: No pathologic enhancement identified.
--- NOTE | 2020-08-24 15:43 | PN ---
PROGRESS NOTE DATE OF SERVICE: 08/24/2020 REASON FOR FOLLOWUP: Fever, question of pneumonia. INTERVAL HISTORY: The patient is currently afebrile. The patient is breathing comfortably. The patient denies having any chest pain or shortness of breath. She did have some cough and did bring up some sputum after a breathing treatment. No abdominal pain or diarrhea. PHYSICAL EXAMINATION: Blood pressure is 130/74 with a pulse of 81, temperature 98.5. She is 94% on 1 L nasal cannula. General description is a middle-aged female up in the bed in no distress. RESPIRATORY SYSTEM: Unlabored breathing with decreased intensity of breath sounds. No wheeze. HEART: S1, S2. Regular rate and rhythm. ABDOMEN: Soft. No tenderness. LABS: BUN of 9, creatinine 0.57. CSF examination was negative as far as infection is concerned. DIAGNOSTIC IMPRESSION AND PLAN: Patient with a fever, elevated white count, concern for possible pneumonitis. Overall improvement on Unasyn. Will give a short course of oral Augmentin on discharge. Plan of care was discussed with the admitting physician. MMODL / IJN: [id number] /
[2020-08-24] MEDS: LORazepam 1 MG TAB PO PRN (17:27)
--- NOTE | 2020-08-24 18:21 | P.PN ---
Subjective Progress Note Date: 08/24/20 Patient was seen for a follow-up. Patient had undergone lumbar puncture yesterday, in which her opening pressure was 29 cm and closing pressure was 21 cm. Spoke to patient if the headache is better. Patient states the headache was 8.5 before medication and down to 4.5. This appears almost same as what she characterized her headache before she had undergone LP. Then she stated that she is about "20% better". She continues to complain about burning pain in the right occipital region and pressure in the left frontal region. Patient also tells me that she was taking Fioricet 3 times a day for a few years, and stopped taking it 2 weeks ago. Her headache started about a week ago. Then she later changed her statement stating that she does have Fioricet available, but her neurologist has been giving less Fioricet instead of 90 down to 45 per month. Objective - Vital Signs Vital signs: Vital Signs Temp 97.8 F 08/24/20 16:22 Pulse 99 08/24/20 16:22 Resp 18 08/24/20 16:22 BP 123/85 08/24/20 16:22 Pulse Ox 91 L 08/24/20 16:22 Intake & Output 08/23/20 08/24/20 08/24/20 18:59 06:59 18:59 Intake Total 830 240 Output Total 200 Balance 830 -200 240 Weight 108.3 kg Intake: IV 50 Oral 780 240 Output: Urine 200 Other: Voiding Method Toilet Toilet # Voids 1 1 2 # Bowel Movements 1 1 - Exam Patient's mental status, speech and language functions are normal. No pronator drift. No myoclonic jerks. No tremors. Muscle strength is normal. Sensations are normal. No ataxia. - Labs CBC & Chem 7: 08/23/20 08:39 08/24/20 11:32 Labs: Abnormal Lab Results - Last 24 Hours (Table) 08/22/20 08/23/20 08/24/20 Range/Units 08:58 08:39 11:32 Carbon Dioxide 33 H (22-30) mmol/L Glucose 115 H (74-99) mg/dL Procalcitonin 0.18 H (0.02-0.09) ng/mL IgG 348 L (700 - 1600) mg/dL Microbiology - Last 24 Hours (Table) 08/23/20 13:42 CSF Gram Stain - Preliminary Cerebral Spinal Fluid CSF Culture - Preliminary Assessment and Plan Assessment: * Relapsing remitting multiple sclerosis, stable. No evidence of exacerbation. * Pseudotumor cerebri. The spinal fluid opening pressure was 29 cm, which is elevated. Closing pressure 21 cm. Patient did not feel remarkable improvement in her headache from lumbar puncture, only "20%". She probably has some degree of underlying right occipital neuralgia. * History of migraine headaches, currently on Topamax 100 mg twice a day. 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 Anesthesia input appreciated. Patient is on Topamax 100 mg twice a day. Patient was recommended to see an aircraft body repairer in 1-2 weeks to check for papilledema and formal visual field testing. If evidence of disc edema, would switch from Topamax to Diamox. She may need to see a neuro-aircraft body repairer, if she has any disc edema. Continue Topamax 100 mg twice a day. Patient currently is on gabapentin 800 mg 3 times a day. If symptoms persist, would recommend right occipital nerve block. * Patient's current spinal fluid revealed 5 RBC, 1 WBC, glucose 78 and normal protein 53 (12-60). Oligoclonal bands are present in the CSF, but also present in the corresponding serum, therefore considered a negative study. * Her previous CSF from 03/27/2020 shows 0 RBC, 0 WBC, glucose 70, protein 44 (12-60), negative oligoclonal bands and CSF angiotensin converting enzyme level. * Her previous blood tests shows negative Lyme titer, hepatitis panel, HIV, Patria 1 antibodies, ACCOUNT MANAGER SALES REPRESENTATIVE, scleroderma antibodies, dsDNA, histone antibodies, Sjogren's antibodies, C&P ANCA and CCP. * Patient counseled about tobacco cessation, particularly given her history of multiple sclerosis. * Neurologically clear for discharge. Patient to follow up with her neurologist.
[2020-08-24] MEDS: MELATONIN 5 MG TABLET PO SCH (21:43)
[2020-08-25] MEDS: AMPICILLIN-SULBACTAM 3 GM in SODIUM CHLORIDE 0.9% 100 ML IVPB SCH (05:47)
[2020-08-25] MEDS: KETOROLAC 15 MG/ML 1 ML VIAL IM SCH (05:48)
[2020-08-25] MEDS: PANTOPRAZOLE 40 MG TABLET PO SCH (06:52)
[2020-08-25 07:34] VITALS: RESP 16
[2020-08-25] MEDS: SYMBICORT 160-4.5 MCG INHALER INHALATION SCH (07:50)
[2020-08-25] MEDS: IPRATROPIUM-ALBUTEROL 3 ML NEB INHALATION PRN (07:50)
[2020-08-25 08:27] VITALS: BP 113/67; PULSE 78; TEMP 98.3
[2020-08-25] MEDS: hydroCHLOROthiazide 25 MG TAB PO SCH (08:28)
[2020-08-25] MEDS: TOPIRAMATE 100 MG TAB PO SCH (08:28)
[2020-08-25] MEDS: MONTELUKAST 10 MG TAB PO SCH (08:28)
[2020-08-25] MEDS: MULTIVITAMINS, THERA 1 EACH TAB PO SCH (08:28)
[2020-08-25] MEDS: FOLIC ACID 1 MG TAB PO SCH (08:28)
[2020-08-25] MEDS: MEMANTINE 10 MG TAB PO SCH (08:28)
[2020-08-25] MEDS: busPIRone HCl 10 MG TAB PO SCH (08:28)
[2020-08-25] MEDS: PARoxetine 20 MG TAB PO SCH (08:28)
[2020-08-25] MEDS: NICOTINE 14MG/24HR PATCH TRANSDERM SCH (08:29)
[2020-08-25] MEDS: HEPARIN SODIUM,PORCINE/PF 5,000 UNIT/0.5 ML SYRINGE SQ SCH (08:29)
[2020-08-25] MEDS: CHOLECALCIFEROL 25 MCG (1000 IU) TABLET PO SCH (08:29)
[2020-08-25] MEDS: GABAPENTIN 400 MG CAP PO SCH (08:29)
[2020-08-25] MEDS: ASCORBIC ACID 500 MG TAB PO SCH (08:29)
[2020-08-25] MEDS: ASPIRIN 81 MG PO SCH (08:29)
[2020-08-25] MEDS: VERAPAMIL 40 MG TAB PO SCH (08:30)
[2020-08-25] MEDS: methocarbamoL 750 MG TAB PO SCH (08:30)
[2020-08-25] MEDS: ZINC SULFATE 220 MG CAP PO SCH (08:31)
[2020-08-25] MEDS: SODIUM CHLORIDE 0.9% 1,000 ML IV SCH (08:32)
[2020-08-25] MEDS: LORazepam 1 MG TAB PO PRN (08:44)
[2020-08-25] MEDS: oxyCODONE-APAP 7.5-325MG 1 EACH TAB PO PRN (08:44)
--- NOTE | 2020-08-25 10:04 | XR ---
EXAMINATION TYPE: XR chest 1V portable DATE OF EXAM: 08/25/2020 COMPARISON: Chest x-ray 08/21/2020 HISTORY: Leukocytosis TECHNIQUE: Single frontal view of the chest is obtained. FINDINGS: Cardiac mediastinal silhouette is stable, prominence of pulmonary artery region may be ind icative of pulmonary artery hypertension. No evident airspace disease, pneumothorax, or pleural effus ion. There are overlying leads. IMPRESSION: Findings are similar to prior exam. The heart is stable, borderline enlarged.
--- NOTE | 2020-08-25 11:04 | P.DS ---
Providers Date of admission: 08/21/20 11:05 Attending physician: Nafisa Xie MD Consults: 08/21/20 11:05 Consult Physician Routine Consulting Provider: Dhruv Mello Consult Reason/Comments: Multiple sclerosis Do you want consulting provider notified?: Yes 08/22/20 08:50 Consult Physician Routine Consulting Provider: Tavares Cuevas Consult Reason/Comments: fever Do you want consulting provider notified?: Yes 08/22/20 18:36 Consult to Anesthesia Routine Consulting Provider: Anesthesia,Services Consult Reason/Comments: Pseudotumor cerebri, large volume spinal tap, please check opening pressure Primary care physician: Kilo Tabares [facility] Course: This is a 54 year old female patient of Dr. Tabares and Dr. Ramirez with a past medical history of relapsing remitting multiple sclerosis, hypertension and hypertensive cardiovascular disease with left ventricular hypertrophy, history of GERD, multiple sclerosis, COPD, asthma, history of osteoporosis, uterine cancer status post surgery, chronic hypoxic respiratory failure on home O2 at 2 L nasal cannula, daily tobacco use. She has had multiple admissions for acute exacerbation of her multiple sclerosis. Patient complains of chest pain and fever for 3 days. She states she received her second: 19 vaccine on August 13. She states she has not been able to eat or drink anything and has no appetite. She complains of abdominal pain and constipation. She also complains of a headache. She's had increased weakness and she states that she had difficulty answering questions yesterday. She complains of palpitations and tingling sensation in her chest that lasted a couple days. She complains of a fiery-type headache on the right side. She also states she is dropping things with her hands and has jerking motions of her extremities. Patient came into [facility] emergency center for evaluation. WBC 17.4, hemoglobin 15.6, platelet count 274. Sodium 136, potassium 3.3, chloride 88, CO2 39, BUN 12 and creatinine 0.64. Blood sugar 139. AST 47 otherwise liver function tests are normal. Magnesium 2.0. Troponin 0.058, 0.044 and 0.049. Triglycerides 97, cholesterol 126, LDL 77 and HDL 30. Urinalysis was clear and negative for infection. Influenza testing was negative. Coronavirus PCR not detected. Chest x-ray shows cardiomegaly without new acute process. Patient was admitted to the cardiac stepdown unit and consult in place with cardiology for chest pain, neurology for MS exacerbation, Dr. Cuevas consult added for fever. 08/23 and examined bedside. Continues to have headaches involving the right fron ben and radiating to the hospital area. She continues to feel weak. Starting has improved since yesterday. Patient underwent lumbarpuncture and was find a high opening pressure of 29. 17 mL of clear CSF fluid was collected in 4 different tubes the closing pressure of 21 cm of water. CSF sent for studies. Continue Unasyn for infectious disease.. MS exacerbation ruled out by neurology. CT abdomen and pelvis was negative for any acute abdominal process. No episodes of fever noted. Past 24 hours. Leukocytosis has improved to 10 WBC. BUN of 8 creatinine 0.6 glucose mildly elevated CRP 3. Palpitations noted to be anxiety related. Troponin elevation secondary to the palpitations. ACS ruled out. 08/24 patient examined bedside. Continues to have mild headaches and feeling of unwell. Headache has improved since yesterday with removal of fluid from lumbar puncture. CSF fluid appears benign on assessment of patient's vital patient had no fever since admission, pulse is 81 blood pressure 1:30/74 oxygen saturation 94% no need. Labs suggest improvement in leukocytosis from 13-10 and CBC 5. D- dimer normal. BUN/creatinine normal. Detailed discussion was made with infectious disease, since no possible source of infection identified. CT head with contrast will be ordered. Patient be discharged on Augmentin if CT head with contrast negative. Since patient does not feel well we'll monitor for another 24-48 hours. Patient may benefit from trigger shots by anesthesiology if no improvement in headaches 08/25: Patient examined at bedside. Patient states that she is feeling much better and is ready to go home. A repeat checks x-ray will be performed prior to discharge. She will follow-up with her primary care physician. We will continue with doxycycline for 5 days. Discharge diagnosis 1. Chest pain with troponinemia. ACS ruled out. Likely related to anxiety 2. History of relapsing remitting multiple sclerosis. MS exacerbation ruled out. 3. Fever of unclear etiology abdominal source ruled out 4. Headache secondary to pseudotumor cerebri. 5. Chronic pain and occipital neuralgia under the care of Dr. Ramirez. 5. Hypertension and hypertensive cardiovascular disease. 6. Obesity with possible obstructive sleep apnea and obesity hypoventilation syndrome. 7. Mild intermittent asthma and COPD. 8. Fibromyalgia. 8. Generalized anxiety disorder. 9. Recurrent depression. 10. Chronic tobacco use and dependence. 11. Mild cognitive impairment. 13. Restless leg syndrome. 14. GERD Discharge disposition: Home Impression and plan of care have been directed as dictated by the signing physician. Izabella Tavares nurse practitioner acting as scribe for signing physician. Cc Dr. Tabares Patient Condition at Discharge: Fair Plan - Discharge Summary Discharge Rx Participant: No New Discharge Prescriptions: New Doxycycline [Vibramycin] 100 mg PO BID 5 Days #10 capsule Continue LORazepam [Ativan] 1 mg PO TID PRN PRN Reason: Anxiety Aspirin 81 mg PO DAILY Verapamil HCl [Calan] 120 mg PO DAILY Butalb/APAP/Caff 50-325-40Mg [Fioricet 50-325-40] 1 tab PO Q8H PRN PRN Reason: Headache rOPINIRole HCL [Requip] 0.25 mg PO TID #90 tab Budesonide/Formoterol Fumarate [Symbicort 160-4.5 Mcg Inhaler] 2 puff INHALATION RT-BID Multivitamins, Thera [Multivitamin (formulary)] 1 tab PO DAILY Cholecalciferol [Vitamin D3 (25 Mcg = 1000 Iu)] 50 mcg PO DAILY PARoxetine [Paxil] 40 mg PO DAILY tab Pantoprazole Sodium [Protonix] 40 mg PO BID Ipratropium-Albuterol Nebulize [Duoneb 0.5 mg-3 mg/3 ml Soln] 3 ml INHALATION RT-QID PRN PRN Reason: Shortness Of Breath Memantine [Namenda] 10 mg PO BID Montelukast [Singulair] 10 mg PO DAILY hydroCHLOROthiazide [Hydrodiuril] 25 mg PO DAILY tab Fluticasone Nasal [place] [Flonase Nasal [place]] 2 spray EA NOSTRIL DAILY PRN PRN Reason: Congestion Methocarbamol [Robaxin-750] 750 mg PO TID busPIRone HCl [Buspar] 10 mg PO TID #90 tab Folic Acid 1 mg PO DAILY #30 tab Albuterol Sulfate [Ventolin HFA] 1 - 2 puff INHALATION RT-Q6H PRN PRN Reason: Shortness Of Breath Docusate [Colace] 100 mg PO DAILY PRN PRN Reason: Constipation Zinc Gluconate [Zinc] 25 mg PO DAILY Ascorbic Acid [Vitamin C] 1,000 mg PO DAILY Diclofenac Sodium Gel [Voltaren Gel] 2 gm TOPICAL QID PRN #0 PRN Reason: Pain Ear Drops (Unknown) 1 dose LEFT EAR DIRECTED PRN PRN Reason: Ear Pain Turmeric Root Extract [Turmeric] 500 mg PO DAILY Elderberry Fruit and Flower [Black Elderberry 575 mg Cap] 1 cap PO DAILY Gabapentin 800 mg PO TID Topiramate [Topamax] 100 mg PO BID oxyCODONE HCL/ACETAMINOPHEN [Percocet 7.5-325 mg] 1 tab PO TID PRN PRN Reason: Pain Discharge Medication List Aspirin 81 mg PO DAILY 02/20/14 [History] LORazepam [Ativan] 1 mg PO TID PRN 02/20/14 [History] Verapamil HCl [Calan] 120 mg PO DAILY 02/20/14 [History] Butalb/APAP/Caff 50-325-40Mg [Fioricet 50-325-40] 1 tab PO Q8H PRN 03/25/17 [History] rOPINIRole HCL [Requip] 0.25 mg PO TID #90 tab 01/31/18 [Rx] Budesonide/Formoterol Fumarate [Symbicort 160-4.5 Mcg Inhaler] 2 puff INHALATION RT-BID 05/06/18 [History] Cholecalciferol [Vitamin D3 (25 Mcg = 1000 Iu)] 50 mcg PO DAILY 05/07/18 [History] Multivitamins, Thera [Multivitamin (formulary)] 1 tab PO DAILY 05/07/18 [History] PARoxetine [Paxil] 40 mg PO DAILY tab 05/09/18 [Rx] Pantoprazole Sodium [Protonix] 40 mg PO BID 10/31/18 [History] Ipratropium-Albuterol Nebulize [Duoneb 0.5 mg-3 mg/3 ml Soln] 3 ml INHALATION RT-QID PRN 11/22/18 [History] Memantine [Namenda] 10 mg PO BID 11/22/18 [History] Montelukast [Singulair] 10 mg PO DAILY 11/22/18 [History] hydroCHLOROthiazide [Hydrodiuril] 25 mg PO DAILY tab 11/26/18 [Rx] Fluticasone Nasal [place] [Flonase Nasal [place]] 2 spray EA NOSTRIL DAILY PRN 04/28/19 [History] Methocarbamol [Robaxin-750] 750 mg PO TID 04/28/19 [History] Folic Acid 1 mg PO DAILY #30 tab 05/02/19 [Rx] busPIRone HCl [Buspar] 10 mg PO TID #90 tab 05/02/19 [Rx] Albuterol Sulfate [Ventolin HFA] 1 - 2 puff INHALATION RT-Q6H PRN 08/09/19 [History] Ascorbic Acid [Vitamin C] 1,000 mg PO DAILY 01/30/20 [History] Docusate [Colace] 100 mg PO DAILY PRN 01/30/20 [History] Zinc Gluconate [Zinc] 25 mg PO DAILY 01/30/20 [History] Diclofenac Sodium Gel [Voltaren Gel] 2 gm TOPICAL QID PRN #0 03/26/20 [History] Ear Drops (Unknown) 1 dose LEFT EAR DIRECTED PRN 03/26/20 [History] Elderberry Fruit and Flower [Black Elderberry 575 mg Cap] 1 cap PO DAILY 06/14/20 [History] Turmeric Root Extract [Turmeric] 500 mg PO DAILY 06/14/20 [History] oxyCODONE HCL/ACETAMINOPHEN [Percocet 7.5-325 mg] 1 tab PO TID PRN 08/03/20 [History] Gabapentin 800 mg PO TID 08/21/20 [History] Topiramate [Topamax] 100 mg PO BID 08/21/20 [History] Doxycycline [Vibramycin] 100 mg PO BID 5 Days #10 capsule 08/25/20 [Rx] Follow up Appointment(s)/Referral(s): Sergo Chi MD [REFERRING] - 1 Week (please call office to make appointment ) [facility], [NON-STAFF] - Kilo Tabares MD [Primary Care Provider] - 1-2 days (please call office to make follow up appointment ) Patient Instructions/Handouts: Lumbar Puncture (DC) Discharge/Stand Alone Forms: Anes Pain/[facility] Instructions
--- NOTE | 2020-09-24 06:25 | CDI ---
Documentation Clarification Form Date: 09/24/2020 06:04:00 AM From: Aure Blanco Phone: If you have a question about this query, please contact Caryn Cullen, Real Estate Intern at [phone] between 8am and 5pm. Admit Date: 08/21/2020 11:05:00 AM Patient Name: Hudson Hernández Visit Number: [id number] Discharge Date: 08/25/2020 12:34:00 PM ATTENTION: The Clinical Documentation Specialists (CDI) and [facility] Coding Staff appreciate your assistance in clarifying documentation. Please respond to the clarification below the line at the bottom and electronically sign. The CDI & [facility] Coding staff will review the response and follow-up if needed. Please note: Queries are made part of the Legal Health Record. If you have any questions, please contact the author of this message via ITS. Dr. Nafisa Xie Fever of unknown origin is documented along with a concern for possible pneumonia. Additional clarification is needed to clarify whether patient had pneumonia or was it ruled out. History/Risk Factors: Pseudotumor Cerebri, but patient treated with Unsyn and short course Augmentin. Fever with abdominal source ruled out. Please clarify if patient had pneumonia Clinical Indicators: WBC/Left shift: 17.4 left shift X-ray: negative Treatment: Antibiotics Unasyn and Augmentin Please clarify if patient had pneumonia or was it ruled out. [ ] Pneumonia ruled out [ x ] Pneumonia [ ] Other bacteria (please specify) [ ] Viral Pneumonia, specify casual organism (if known) [ ] Other, please specify [ ] Unable to determine MTDD
== END 2020-08-25 12:34 | disposition home or self-care (01) | DRG 102 ==
LOC: EC 07:07 → 3SCARD 11:05
PROVIDERS: ADMIT Internal Medicine; ATTEND Internal Medicine
PROC: 009U3ZX Drainage of Spinal Canal, Percutaneous Approach, Diagnostic (ICD-10-PCS; principal; 2020-08-23 14:45)
DX: G93.2 Benign intracranial hypertension (principal); J18.9 Pneumonia, unspecified organism; D84.9 Immunodeficiency, unspecified; Z68.41 Body mass index [BMI] 40.0-44.9, adult; F33.9 Major depressive disorder, recurrent, unspecified; I47.1 Supraventricular tachycardia; J96.11 Chronic respiratory failure with hypoxia; F41.1 Generalized anxiety disorder; E66.01 Morbid (severe) obesity due to excess calories; F17.210 Nicotine dependence, cigarettes, uncomplicated; F98.5 Adult onset fluency disorder; G25.81 Restless legs syndrome; G25.3 Myoclonus; G31.84 Mild cognitive impairment of uncertain or unknown etiology; G35 Multiple sclerosis; G50.0 Trigeminal neuralgia; G89.29 Other chronic pain; H54.7 Unspecified visual loss; I11.9 Hypertensive heart disease without heart failure; J44.9 Chronic obstructive pulmonary disease, unspecified; J45.20 Mild intermittent asthma, uncomplicated; K21.9 Gastro-esophageal reflux disease without esophagitis; K59.00 Constipation, unspecified; M54.81 Occipital neuralgia; M79.7 Fibromyalgia; M81.0 Age-related osteoporosis without current pathological fracture; Z20.822 Contact with and (suspected) exposure to COVID-19; Z79.51 Long term (current) use of inhaled steroids; Z79.82 Long term (current) use of aspirin; Z79.899 Other long term (current) drug therapy; Z60.2 Problems related to living alone; H91.90 Unspecified hearing loss, unspecified ear; Z82.3 Family history of stroke; Z82.41 Family history of sudden cardiac death; Z82.49 Family history of ischemic heart disease and other diseases of the circulatory system; Z85.42 Personal history of malignant neoplasm of other parts of uterus; Z90.710 Acquired absence of both cervix and uterus; Z95.5 Presence of coronary angioplasty implant and graft; Z99.81 Dependence on supplemental oxygen; J31.0 Chronic rhinitis; Z87.01 Personal history of pneumonia (recurrent); H26.9 Unspecified cataract; H93.19 Tinnitus, unspecified ear
CPT/HCPCS: 36415; 62270; 70460; 71045; 71046; 74177; 80048; 80053; 80061; 81003; 82040; 82042; 82550; 82728; 82784; 82945; 83605; 83615; 83735; 83916; 84145; 84157; 84484; 85025; 85027; 85379; 85730; 86140; 87070; 87075; 87205; 87502; 87635; 88108; 89050; 93005; 93306; 94640; 96374; 96375; 99285

== ENCOUNTER 2020-08-29 11:15 | Observation (INO) | payer MEDICARE, OTHER ==
--- NOTE | 2020-10-05 14:23 | P.PCN ---
Date of Procedure: 10/05/20 Description of Procedure: PREOPERATIVE DIAGNOSIS : Lumbar spondylosis with Facet Arthropathy without myelopathy POSTOPERATIVE DIAGNOSIS: same PROCEDURE: second Diagnostic lumbar medial branch block with fluoroscopy at L3, L4, L5 [bilateral] which covers facets L4-5 and L5-S1 ANESTHESIA: Local anesthetic; moderate IV sedation with anesthesia team Fluoroscopy was used for the procedure and images were saved in the radiology portion of the chart. Surgeon: Kirit Garibay MD PROCEDURE INDICATION: Lumbar back pain without radiculopathy, not responsive to conservative management. PROCEDURE DESCRIPTION: the patient was seen and identified in the preop holding area , risks and benefits and possible complications of the procedure and alternatives were discussed with the patient, and the patient agreed to proceed with the procedure and signed the consent . IV was started , vital signs were monitored during the procedure and fluoroscopy was used to maximize the benefit and accuracy of the needle placement, and sedation was given to decrease patient anxiety. Patient was taken to the procedure room and placed in prone position. The lumbar region was prepped using chlorhexidineX-2. Under strict sterile technique using AP fluoroscopy the bilateral sacral ala were identified and using ipsilateral oblique fluoroscopy ,the junction of the transverse process and the superior articulating process of the L4, L5 vertebra which corresponds to the fluoroscopy image of the eye of the Tone dog for the medial branches were identified. Subsequently, after local infiltration of skin with lidocaine 1% 0.2 mL at each level , a 25 gauge 5" Quincke-type needle was placed at the junction of the base of the transverse process and the superior articular process at the appropriate level as well as the sacral ala, and the needle was advanced until the periosteum contacted, needle placement confirmed with AP and oblique fluoroscopy, 0.2 mL of Isovue 200 per level was injected which revealed no vascular uptake and after negative aspiration. I aftab up 6 mL of 0.5% ropivacaine and injected 1 mL of this injectate at each level and the needle subsequently removed . A total of [2 levels injected bilaterally] At the end of the procedure and the needles were removed and a bandage applied after the skin was cleaned. The patient was taken to recovery room in stable condition and monitors in the recovery room for 20-30 minutes and discharged home in stable condition after discharge criteria met and patient will follow up in clinic in 2 weeks EBL: Minimal COMPLICATION: None.
[2020-12-13] MEDS ORDERED: LIDOCAINE 1% (10MG/ML) FOR IV START INTRADERMA PRN ×2 (16:23)
[2020-12-13] MEDS ORDERED: LACTATED RINGERS 1,000 ML IV SCH ×2 (16:23)
[2020-12-13] MEDS ORDERED: PEG 3350-NA SULF,BICARB,CL/KCL 4,000 ML BOTTLE PO ONE (16:28)
[2020-12-13] MEDS ORDERED: IPRATROPIUM-ALBUTEROL 3 ML NEB INHALATION PRN (16:54)
[2020-12-13] MEDS ORDERED: ALBUTEROL NEBULIZED 2.5 MG/3 ML INHALATION PRN (16:54)
[2020-12-13] MEDS ORDERED: DOCUSATE 100 MG CAP PO PRN (16:54)
[2020-12-13] MEDS ORDERED: FLUTICASONE 50MCG/SPRAY NASAL 16GM EA NOSTRIL PRN (16:54)
[2020-12-13] MEDS ORDERED: DICLOFENAC SODIUM GEL 100 GM TUBE TOPICAL PRN (16:54)
[2020-12-13] MEDS ORDERED: NICOTINE 14MG/24HR PATCH TRANSDERM SCH (17:15)
[2020-12-13] MEDS: PANTOPRAZOLE 40 MG TABLET PO SCH (18:20)
[2020-12-13] MEDS: LORazepam 1 MG TAB PO PRN (18:20)
[2020-12-13] MEDS: oxyCODONE-APAP 7.5-325MG 1 EACH TAB PO SCH ×2 (18:23→21:25)
[2020-12-13] MEDS: SYMBICORT 160-4.5 MCG INHALER INHALATION SCH (19:59)
[2020-12-13] MEDS ORDERED: MELATONIN 3 MG TABLET PO SCH (21:00)
[2020-12-13] MEDS: MEMANTINE 10 MG TAB PO SCH (21:24)
[2020-12-13] MEDS: busPIRone HCl 10 MG TAB PO SCH (21:24)
[2020-12-13] MEDS: GABAPENTIN 400 MG CAP PO SCH (21:25)
[2020-12-13] MEDS: methocarbamoL 750 MG TAB PO SCH (21:26)
[2020-12-13] MEDS: TOPIRAMATE 100 MG TAB PO SCH (21:26)
[2020-12-13] MEDS: acetaZOLAMIDE 250 MG TAB PO SCH (21:27)
[2020-12-13] MEDS ORDERED: oxyCODONE-APAP 7.5-325MG 1 EACH TAB PO SCH (22:00)
[2020-12-13] MEDS: BUTALB/APAP/CAFF 50-325-40MG TAB PO PRN (22:13)
[2020-12-14] MEDS: LORazepam 1 MG TAB PO PRN ×2 (01:59→09:13)
[2020-12-14 02:38] VITALS: RESP 18; TEMP 98.1
[2020-12-14] MEDS ORDERED: IV FLUID CONTINUATION 1,000 ML IV ONE ×2 (07:45)
[2020-12-14] MEDS ORDERED: PROPOFOL 10 MG/ML 20 ML VIAL IV ONE (07:45)
[2020-12-14] MEDS ORDERED: LIDOCAINE 1% INJ 10MG/ML (20 ML MDV) ONE (07:45)
[2020-12-14] MEDS: SYMBICORT 160-4.5 MCG INHALER INHALATION SCH (07:53)
[2020-12-14 07:57] VITALS: BP 110/80; PULSE 87
--- NOTE | 2020-12-14 08:13 | P.PCN ---
Date of Procedure: 12/14/20 Procedure(s) Performed: Brief history: Patient is a pleasant 55-year-old white female scheduled for an elective upper endoscopy as well as colonoscopy as a part of evaluation of GERD and screening for colorectal neoplasia Procedure performed: Esophagogastroduodenoscopy with biopsy Colonoscopy Preoperative diagnosis: GERD Screening for colon cancer Anesthesia: [facility] [place] Procedure: After informed consent was obtained from the patient was brought into the endoscopy unit and IV sedation was administered by anesthesia under continuous monitoring. Initially upper endoscopy was done. The Olympus GF 160 video endoscope was inserted inserted into the mouth and esophagus intubated without any difficulty and was gradually advanced into the stomach and duodenum and carefully examined. The bulb and second part of the duodenum appeared normal. The scope was then withdrawn into the stomach adequately insufflated with air and upon careful examination the antrum had mild gastritis and biopsies were done from this area. The body, cardia and fundus appeared normal. The scope was then withdrawn into the esophagus. The GE junction was located at 40 cm to the incisors. It appeared regular with no erythema erosions or ulcerations. Rest of the esophagus appeared normal. Patient tolerated the procedure well. At this time the patient continued to remain sedation. Initial digital rectal examination was normal. Olympus CF 160 video colonoscope was then inserted into the rectum and gradually advanced to the cecum without any difficulty. Careful examination was performed as the scope was gradually being withdrawn. The prep was excellent. The cecum, ascending colon, transverse colon, descending colon, sigmoid colon and rectum appeared normal. Retroflexion was performed in the rectum and no lesions were noted. Patient tolerated the procedure well. Impression: 1. Upper endoscopy revealed mild antral gastritis but no evidence of esophagitis or peptic ulcer disease 2. Colonoscopy was within normal limits with no evidence of colitis or colorectal neoplasia Recommendations: Findings of this examination were discussed with the patient as well as her family. She was advised to follow with the biopsy results. Continue with pantoprazole 40 mg daily and follow antireflux measures. Start back on a regular diet. Recommended a repeat screening colonoscopy in 10 years.
--- NOTE | 2020-12-14 08:40 | P.DS ---
Providers Date of admission: 12/13/20 15:12 Expected date of discharge: 12/14/20 Attending physician: Rosario Loja Primary care physician: Kilo Thrasher [facility] Course: This is a 55-year-old female thank you with a history of MS, asthma, COPD, I disorder, fibromyalgia, GERD, hearing disorder, hypertension, neurological disorder who was a direct admit for observation to undergo bowel prep for EGD and colonoscopy today for complaints of abdominal pain and diarrhea. The patient underwent EGD and colonoscopy. Assessment: 55-year-old female with no acute changes through the night. Admitted and prepped for colonoscopy yesterday. Exam General appearance: The patient is alert, oriented, appears in no acute distress. HET: Head is normocephalic and atraumatic. Conjunctiva pink. Sclera anicteric. Neck: Supple without lymphadenopathy. Abdomen: Soft, nontender, nondistended with bowel sounds. No guarding or rigidity. Extremities: Normal skin color and turgor. No pedal edema Skin: No rashes, no jaundice Neurological: No focal deficits. Alert and oriented 3. Assessment: 1. Multiple sclerosis 2. GERD 3. Screening colonoscopy Plan Patient underwent EGD and colonoscopy with findings of mild gastritis and normal colonoscopy with no evidence of colitis or colorectal neoplasia. Patient may start on a regular diet, no follow-up needed. Repeat colonoscopy in [address] years. Continue current medications. Dr[address] Chris Loja I agree with the dictator's note, documented as a scribe by Michelle Hare NP- C. Procedures: EGD with findings of mild gastritis Colonoscopy with findings of normal colon with no evidence of colitis or colorectal neoplasia Patient Condition at Discharge: Good Plan - Discharge Summary New Discharge Prescriptions: Continue LORazepam [Ativan] 1 mg PO TID PRN PRN Reason: Anxiety Aspirin 81 mg PO DAILY Verapamil HCl [Calan] 120 mg PO DAILY Butalb/APAP/Caff 50-325-40Mg [Fioricet 50-325-40] 1 tab PO Q8H PRN PRN Reason: Headache rOPINIRole HCL [Requip] 0.25 mg PO TID #90 tab Budesonide/Formoterol Fumarate [Symbicort 160-4.5 Mcg Inhaler] 2 puff INHALATION RT-BID Multivitamins, Thera [Multivitamin (formulary)] 1 tab PO DAILY Cholecalciferol [Vitamin D3 (25 Mcg = 1000 Iu)] 50 mcg PO DAILY PARoxetine [Paxil] 40 mg PO DAILY tab Pantoprazole Sodium [Protonix] 40 mg PO BID Ipratropium-Albuterol Nebulize [Duoneb 0.5 mg-3 mg/3 ml Soln] 3 ml INHALATION RT-QID PRN PRN Reason: Shortness Of Breath Memantine [Namenda] 10 mg PO BID Montelukast [Singulair] 10 mg PO DAILY hydroCHLOROthiazide [Hydrodiuril] 25 mg PO DAILY tab Fluticasone Nasal Spurgeon [Flonase Nasal Spurgeon] 2 spray EA NOSTRIL DAILY PRN PRN Reason: Congestion Methocarbamol [Robaxin-750] 750 mg PO TID busPIRone HCl [Buspar] 10 mg PO TID #90 tab Folic Acid 1 mg PO DAILY #30 tab Albuterol Sulfate [Ventolin HFA] 1 - 2 puff INHALATION RT-Q6H PRN PRN Reason: Shortness Of Breath Docusate [Colace] 100 mg PO DAILY PRN PRN Reason: Constipation Zinc Gluconate [Zinc] 25 mg PO DAILY Ascorbic Acid [Vitamin C] 1,000 mg PO DAILY Diclofenac Sodium Gel [Voltaren Gel] 2 gm TOPICAL QID PRN #0 PRN Reason: Pain Ear Drops (Unknown) 1 dose LEFT EAR DIRECTED PRN PRN Reason: Ear Pain Turmeric Root Extract [Turmeric] 500 mg PO DAILY Elderberry Fruit and Flower [Black Elderberry 575 mg Cap] 1 cap PO DAILY Gabapentin 800 mg PO TID Topiramate [Topamax] 100 mg PO BID acetaZOLAMIDE [Diamox] 500 mg PO BID oxyCODONE-APAP 7.5-325MG [Percocet 7.5-325 mg] 1 tab PO TID Discharge Medication List Aspirin 81 mg PO DAILY 02/20/14 [History] LORazepam [Ativan] 1 mg PO TID PRN 02/20/14 [History] Verapamil HCl [Calan] 120 mg PO DAILY 02/20/14 [History] Butalb/APAP/Caff 50-325-40Mg [Fioricet 50-325-40] 1 tab PO Q8H PRN 03/25/17 [History] rOPINIRole HCL [Requip] 0.25 mg PO TID #90 tab 09/30/18 [Rx] Budesonide/Formoterol Fumarate [Symbicort 160-4.5 Mcg Inhaler] 2 puff INHALATION RT-BID 05/06/18 [History] Cholecalciferol [Vitamin D3 (25 Mcg = 1000 Iu)] 50 mcg PO DAILY 05/07/18 [History] Multivitamins, Thera [Multivitamin (formulary)] 1 tab PO DAILY 05/07/18 [History] PARoxetine [Paxil] 40 mg PO DAILY tab 05/09/18 [Rx] Pantoprazole Sodium [Protonix] 40 mg PO BID 10/31/18 [History] Ipratropium-Albuterol Nebulize [Duoneb 0.5 mg-3 mg/3 ml Soln] 3 ml INHALATION RT-QID PRN 11/22/18 [History] Memantine [Namenda] 10 mg PO BID 11/22/18 [History] Montelukast [Singulair] 10 mg PO DAILY 11/22/18 [History] hydroCHLOROthiazide [Hydrodiuril] 25 mg PO DAILY tab 11/26/18 [Rx] Fluticasone Nasal Spurgeon [Flonase Nasal Spurgeon] 2 spray EA NOSTRIL DAILY PRN 04/28/19 [History] Methocarbamol [Robaxin-750] 750 mg PO TID 04/28/19 [History] Folic Acid 1 mg PO DAILY #30 tab 05/02/19 [Rx] busPIRone HCl [Buspar] 10 mg PO TID #90 tab 05/02/19 [Rx] Albuterol Sulfate [Ventolin HFA] 1 - 2 puff INHALATION RT-Q6H PRN 08/09/19 [History] Ascorbic Acid [Vitamin C] 1,000 mg PO DAILY 01/30/20 [History] Docusate [Colace] 100 mg PO DAILY PRN 01/30/20 [History] Zinc Gluconate [Zinc] 25 mg PO DAILY 01/30/20 [History] Diclofenac Sodium Gel [Voltaren Gel] 2 gm TOPICAL QID PRN #0 03/26/20 [History] Ear Drops (Unknown) 1 dose LEFT EAR DIRECTED PRN 03/26/20 [History] Elderberry Fruit and Flower [Black Elderberry 575 mg Cap] 1 cap PO DAILY 06/14/20 [History] Turmeric Root Extract [Turmeric] 500 mg PO DAILY 06/14/20 [History] Gabapentin 800 mg PO TID 08/21/20 [History] Topiramate [Topamax] 100 mg PO BID 08/21/20 [History] acetaZOLAMIDE [Diamox] 500 mg PO BID 10/04/20 [History] oxyCODONE-APAP 7.5-325MG [Percocet 7.5-325 mg] 1 tab PO TID 10/30/20 [History] Follow up Appointment(s)/Referral(s): Rosario Loja MD [STAFF PHYSICIAN] - As Needed Patient Instructions/Handouts: Colonoscopy (DC), Gastritis (DC) Activity/Diet/Wound Care/Special Instructions: May resume regular diet. No follow-up with gastroenterology needed. Repeat colonoscopy in 10 years. Discharge Disposition: HOME SELF-CARE
[2020-12-14] MEDS ORDERED: MONTELUKAST 10 MG TAB PO SCH (09:00)
[2020-12-14] MEDS ORDERED: CHOLECALCIFEROL 25 MCG (1000 IU) TABLET PO SCH (09:00)
[2020-12-14] MEDS ORDERED: ASCORBIC ACID 500 MG TAB PO SCH (09:00)
[2020-12-14] MEDS ORDERED: VERAPAMIL SR 120 MG TABLET.ER PO SCH (09:00)
[2020-12-14] MEDS ORDERED: PARoxetine 20 MG TAB PO SCH (09:00)
[2020-12-14] MEDS ORDERED: hydroCHLOROthiazide 25 MG TAB PO SCH (09:00)
[2020-12-14] MEDS ORDERED: MULTIVITAMINS, THERA 1 EACH TAB PO SCH (09:00)
[2020-12-14] MEDS ORDERED: ASPIRIN 81 MG PO SCH (09:00)
[2020-12-14] MEDS ORDERED: FOLIC ACID 1 MG TAB PO SCH (09:00)
[2020-12-14] MEDS ORDERED: ZINC SULFATE 220 MG CAP PO SCH (09:00)
[2020-12-14] MEDS: oxyCODONE-APAP 7.5-325MG 1 EACH TAB PO SCH (09:12)
[2020-12-14] MEDS: PANTOPRAZOLE 40 MG TABLET PO SCH (09:12)
[2020-12-14] MEDS: busPIRone HCl 10 MG TAB PO SCH (09:15)
[2020-12-14] MEDS: MEMANTINE 10 MG TAB PO SCH (09:17)
[2020-12-14] MEDS: methocarbamoL 750 MG TAB PO SCH (09:17)
[2020-12-14] MEDS: acetaZOLAMIDE 250 MG TAB PO SCH (09:18)
[2020-12-14] MEDS: TOPIRAMATE 100 MG TAB PO SCH (09:18)
[2020-12-14] MEDS: GABAPENTIN 400 MG CAP PO SCH (09:29)
[2020-12-14] MEDS: BUTALB/APAP/CAFF 50-325-40MG TAB PO PRN (11:19)
--- NOTE | 2020-12-14 15:43 | HP ---
HISTORY AND PHYSICAL DATE OF SERVICE: 12/14/2020. HISTORY OF PRESENT ILLNESS: The patient is a 55-year-old female with history of multiple sclerosis admitted to observation unit in preparation for EGD, colonoscopy that is scheduled for today. The patient was admitted to the hospital yesterday afternoon. She does have multiple sclerosis and has difficulty doing a colon prep at home and requested for hospitalization. The patient has been complaining of GERD for 7 years duration. Currently is on home pantoprazole 40 mg twice daily with fairly good improvement in her symptoms. She has chronic cough for the last several weeks, was tested for Covid that was negative a week ago and had a Covid vaccination a few months ago. She had a colonoscopy about 20 years ago. No change in bowel habits. No rectal bleeding. PAST MEDICAL HISTORY: Significant for multiple sclerosis. Allergies. Gastroesophageal reflux disease, fibromyalgia, hypertension, anxiety, pseudotumor cerebri. MEDICATIONS: Fioricet, Diamox, albuterol, vitamin C, aspirin, BuSpar, Colace, Voltaren, Flonase, folic acid, Neurontin, Hydrodiuril, Xylocaine, Ativan, melatonin, Singulair, Theragran, Habitrol, Percocet, Protonix, Paxil, Requip, Topamax, Isoptin and/oral zinc. ALLERGIES: BACLOFEN. SOCIAL HISTORY: No smoking. No alcohol use. FAMILY HISTORY: Unremarkable. REVIEW OF SYSTEMS: Unremarkable. PHYSICAL EXAMINATION: She appears comfortable. VITAL SIGNS: Stable. Blood pressure is 111/78, pulse 80, temperature 98.1. HEENT examination unremarkable. Conjunctivae pink. Sclerae anicteric. Oral cavity no lesions. NECK: No JVD or lymph node enlargement. CHEST was clear to auscultation. HEART: Regular rate and rhythm. ABDOMEN: Soft. Bowel sounds are positive. No organomegaly. EXTREMITIES: No pedal edema. NEURO: She is alert and oriented x3. No focal deficits. LABS: No labs done today. REVIEW OF SYSTEMS: Cardiopulmonary: Some coughing, but no chest pain, no shortness of breath. : No dysuria or hematuria. MUSCULOSKELETAL unremarkable. SKIN unremarkable. ENDOCRINE unremarkable. PSYCHIATRIC unremarkable. NEUROLOGY: History of MS with some lower extremity weakness. ENT/VISION: Unremarkable. CONSTITUTIONAL: No recent weight loss. No fever, chills, night sweats. IMPRESSION: 1. Gastroesophageal reflux disease. 2. Screening for colon cancer. 3. History of multiple sclerosis. RECOMMENDATIONS: 1. The patient will be admitted 23 hour observation. 2. We will start her on IV fluids. 3. Continue with her home medications. 4. Scheduled for EGD and colonoscopy and we will do the prep for the procedure. Patient understands the risks, benefits and complications of the procedure. MMODL / IJN: [id number] /
== END 2020-12-14 11:32 | disposition home or self-care (01) ==
LOC: 6NMEDSUR 12-13 15:12 → EDSTATUS 12-14 07:30
PROVIDERS: ADMIT Internal Medicine Gastroenterology; ATTEND Internal Medicine Gastroenterology
DX: K29.70 Gastritis, unspecified, without bleeding (principal); Z12.11 Encounter for screening for malignant neoplasm of colon; K21.9 Gastro-esophageal reflux disease without esophagitis; G35 Multiple sclerosis; M79.7 Fibromyalgia; J44.9 Chronic obstructive pulmonary disease, unspecified; I10 Essential (primary) hypertension; F41.9 Anxiety disorder, unspecified; H91.90 Unspecified hearing loss, unspecified ear; G93.2 Benign intracranial hypertension; Z88.6 Allergy status to analgesic agent; Z79.899 Other long term (current) drug therapy
CPT/HCPCS: 43239; 45378; 94640; S4990

== ENCOUNTER → 2020-09-12 | Outpatient (CLI) | payer MEDICARE, OTHER ==
[2020-09-12 14:04] VITALS: BP 113/77; PULSE 88; RESP 18; TEMP 98.3
--- NOTE | 2020-09-12 14:21 | P.PAINPG ---
Subjective Progress Note Date: 09/12/20 Mrs. Fernandes is a 54 y/o female presented today for follow-up. She is here today for secondary to chronic low back pain. She had recently had a lumbar medial branch block done which she reports greater than 80% relief for a few days. She reports during that first day she felt significantly better. She still has headaches, she was recently in the hospital because she is not feeling well. The aspirin on the lumbar puncture which was performed. She still following up with her neurologist regarding her multiple sclerosis. She is here today requesting a second medial branch block. She also has left knee pain which is chronic in nature. She has some swelling in the left knee. The pain is worse with activity and better with rest. There is no sharp shooting pain down the legs. Review of Systems: Denies any New chest pain, short of breath, Nausea/vomitting, abdominal pain, bowel or bladder incontinence, or any overt new neurologic symptoms in the upper or lower extremities outside of what is noted in the HPI Objective - Vital Signs Vital signs: Vital Signs Temp 98.3 F 09/12/20 14:00 Pulse 88 09/12/20 14:00 Resp 18 09/12/20 14:00 BP 113/77 09/12/20 14:00 Pulse Ox 97 09/12/20 14:00 - Exam General: Awake and alert oriented 3 no distress, obese Respiratory exam: No audible wheezing no accessory muscle usage Cardiovascular exam: regular rate, palpable bilateral pulses, no lower extremity edema Cervical spine: Normal alignment, Spurling's negative, facet loading negative, Incubator Tender strength is 5/5, reece negative Lumbar spine: Loss of lumbar lordosis, normal alignment, tender to palpation over bilateral paraspinal muscles, facet loading is positive bilaterally. Straight leg raise is negative. Limited range of motion due to pain with flexion, extension and side bending. Left knee mild swelling compared to the right. Minimally tender to palpation. Grind test is negative. Sacroiliac joints: Nontender to palpation, TONJA is negative, Gaenselon negative Neuro exam: Normal sensation in bilateral upper extremities, deep tendon reflexes are 2+ bilateral upper extremities. Normal sensation in bilateral lower extremities. Deep tendon reflexes are 2+ in lower extremities Psych exam: Cooperative, appropriate mood Assessment and Plan Assessment: #1 lumbar spondylosis without myelopathy #2 obesity #3 multiple sclerosis Plan: We will repeat the lumbar medial branch block at L4-L5 L5-S1 since the patient had greater than 80% relief for more than 8 hours. I discussed that the patient should decrease her weight and decrease her caloric intake to improve her overall health. No prescriptions were given today. She also reports she had an MRI done at the [facility] neurology, I've asked for them to send over radiologist report when she gets. I have spent 35 minutes on patient care today. The time was used to review the medical records including relevant urine studies and Prescription history (MAPs), review of the available imaging, evaluation and examination of the patient, coordination of care with the medical staff and if applicable referring physicians, as well as creation of the medical record. Maps were checked and appropriate, opioid start talking form is on file and updated, urine drug screens of been appropriate and have been reviewed. PQRS Measure Charge Sheet Measure #130: Documentation of Current Meds in Medical Chart: Patient's medications documented in chart PQRS Narrative: Smoking Status Current every day smoker Blood Pressure 113/77 Pain Intensity [Bilateral 7 Lower Back] Pain Intensity [Occipital] 4 Scale Used Numeric (1 - 10) Hx Alcohol Use (MH) Yes: occ Home Medications: Ambulatory Orders Aspirin 81 mg PO DAILY 02/20/14 LORazepam [Ativan] 1 mg PO TID PRN 02/20/14 Verapamil HCl [Calan] 120 mg PO DAILY 02/20/14 Butalb/APAP/Caff 50-325-40Mg [Fioricet 50-325-40] 1 tab PO Q8H PRN 03/25/17 rOPINIRole HCL [Requip] 0.25 mg PO TID #90 tab 01/31/18 Budesonide/Formoterol Fumarate [Symbicort 160-4.5 Mcg Inhaler] 2 puff INHALATION RT-BID 05/06/18 Cholecalciferol [Vitamin D3 (25 Mcg = 1000 Iu)] 50 mcg PO DAILY 05/07/18 Multivitamins, Thera [Multivitamin (formulary)] 1 tab PO DAILY 05/07/18 PARoxetine [Paxil] 40 mg PO DAILY tab 05/09/18 Pantoprazole Sodium [Protonix] 40 mg PO BID 10/31/18 Ipratropium-Albuterol Nebulize [Duoneb 0.5 mg-3 mg/3 ml Soln] 3 ml INHALATION RT-QID PRN 11/22/18 Memantine [Namenda] 10 mg PO BID 11/22/18 Montelukast [Singulair] 10 mg PO DAILY 11/22/18 hydroCHLOROthiazide [Hydrodiuril] 25 mg PO DAILY tab 11/26/18 Fluticasone Nasal [place] [Flonase Nasal [place]] 2 spray EA NOSTRIL DAILY PRN 04/28/19 Methocarbamol [Robaxin-750] 750 mg PO TID 04/28/19 Folic Acid 1 mg PO DAILY #30 tab 05/02/19 busPIRone HCl [Buspar] 10 mg PO TID #90 tab 05/02/19 Albuterol Sulfate [Ventolin HFA] 1 - 2 puff INHALATION RT-Q6H PRN 08/09/19 Ascorbic Acid [Vitamin C] 1,000 mg PO DAILY 01/30/20 Docusate [Colace] 100 mg PO DAILY PRN 01/30/20 Zinc Gluconate [Zinc] 25 mg PO DAILY 01/30/20 Diclofenac Sodium Gel [Voltaren Gel] 2 gm TOPICAL QID PRN #0 03/26/20 Ear Drops (Unknown) 1 dose LEFT EAR DIRECTED PRN 03/26/20 Elderberry Fruit and Flower [Black Elderberry 575 mg Cap] 1 cap PO DAILY 06/14/20 Turmeric Root Extract [Turmeric] 500 mg PO DAILY 06/14/20 oxyCODONE HCL/ACETAMINOPHEN [Percocet 7.5-325 mg] 1 tab PO TID PRN 08/03/20 Gabapentin 800 mg PO TID 08/21/20 Topiramate [Topamax] 100 mg PO BID 08/21/20 Doxycycline [Vibramycin] 100 mg PO BID 5 Days #10 capsule 08/25/20 Controlled Substance Measures - Controlled Substance Measures Is patient prescribed a controlled substance at discharge?: No
== END ==
LOC: PNWHC3 13:43
PROVIDERS: ATTEND Hospitalist
DX: M47.816 Spondylosis without myelopathy or radiculopathy, lumbar region (principal); E66.9 Obesity, unspecified; G35 Multiple sclerosis; F17.200 Nicotine dependence, unspecified, uncomplicated; Z79.82 Long term (current) use of aspirin; Z88.8 Allergy status to other drugs, medicaments and biological substances; Z68.41 Body mass index [BMI] 40.0-44.9, adult
CPT/HCPCS: 99211

== ENCOUNTER 2020-10-05 12:57 | Day surgery (SDC) | payer MEDICARE, OTHER ==
[2020-10-04 08:59] VITALS: BMI 43.3
[2020-10-05 13:31] VITALS: TEMP 98.9
[2020-10-05] MEDS ORDERED: LACTATED RINGERS 1,000 ML IV ONE (13:34)
[2020-10-05] MEDS ORDERED: LIDOCAINE 1% (10MG/ML) FOR IV START INTRADERMA ONE (13:34)
[2020-10-05] MEDS ORDERED: MIDAZOLAM 2 MG/2 ML VIAL ONE (13:54)
[2020-10-05] MEDS ORDERED: fentaNYL (PF) 50 MCG/ML 2 ML AMP ONE (13:54)
[2020-10-05] MEDS ORDERED: IOPAMIDOL M200 10 ML VIAL ONE (13:56)
[2020-10-05] MEDS ORDERED: ROPIVACAINE 5MG/ML 20ML VIAL ONE (13:56)
[2020-10-05] MEDS ORDERED: IV FLUID CONTINUATION 1,000 ML IV ONE (14:27)
[2020-10-05 14:31] VITALS: RESP 16
--- NOTE | 2020-10-05 14:36 | FL ---
Fluoroscopy HISTORY: Pain 7 seconds fluoroscopy time supplied to the referring clinician. 3 intraoperative C-arm images docume nt the procedure. See dictated report from anesthesia.
[2020-10-05 14:59] VITALS: BP 122/74; PULSE 104
== END 2020-10-05 15:13 | disposition home or self-care (01) ==
LOC: ORPAIN 12:57
PROVIDERS: ATTEND Anesthesiology
DX: M47.816 Spondylosis without myelopathy or radiculopathy, lumbar region (principal); I10 Essential (primary) hypertension; J44.9 Chronic obstructive pulmonary disease, unspecified; G35 Multiple sclerosis; Z79.899 Other long term (current) drug therapy; Z79.82 Long term (current) use of aspirin; F17.210 Nicotine dependence, cigarettes, uncomplicated
CPT/HCPCS: 64493; 64494; J2250; J3010; Q9966; J2795

== ENCOUNTER 2020-10-24 06:29 | Emergency (ER) | payer MEDICARE, OTHER ==
[2020-10-24] MEDS ORDERED: KETOROLAC 15 MG/ML 1 ML VIAL IVP STA (06:47)
[2020-10-24] MEDS ORDERED: diphenhydrAMINE 50 MG/ML 1 ML VIAL IVP STA (06:47)
[2020-10-24 06:55] LABS: Basophils # (A) 0.1 k/uL (0-0.2); Basophils % (A) 1 %; Eosinophils # (A) 0.2 k/uL (0-0.7); Eosinophils % (A) 2 %; HCT 50.3 % (34.0-46.0); HGB 15.1 gm/dL (11.4-16.0); Hypochromasia Slight; Lymphocytes # (A) 3.5 k/uL (1.0-4.8); Lymphocytes % (A) 26 %; MCH 29.5 pg (25.0-35.0); MCHC 30.1 g/dL (31.0-37.0); MCV 98.2 fL (80.0-100.0); Mean Platelet Volume 8.4; Monocytes # (A) 0.5 k/uL (0-1.0); Monocytes % (A) 4 %; Neutrophils % (A) 67 %; Platelet Count 280 k/uL (150-450); RBC 5.12 m/uL (3.80-5.40); RDW 13.4 % (11.5-15.5); WBC 13.5 k/uL (3.8-10.6)
--- NOTE | 2020-10-24 06:57 | ED ---
General Adult HPI - General Chief complaint: Recheck/Abnormal Lab/Rx Stated complaint: Pain all over Time Seen by Provider: 10/24/20 06:33 Source: patient, EMS, RN notes reviewed Mode of arrival: EMS Limitations: no limitations - History of Present Illness Initial comments: This a 55-year-old female presents emergency Department with multiple complaints . Patient states that she was she's had a fever recently states that she's had increasing cough and congestion. She states that he is a daily smoker has had a slightly productive cough. She is not taking any recent Tylenol Motrin other than she takes Gurabo for chronic pain. She states she currently has pain all over which is not out of the usual she sees pain management, neurology as prescribed chronic pain meds by her PCP. Patient complains of lower abdominal pain with urinary frequency denies diarrhea constipation no focal weakness she has headaches though she also states this is not new chronic in nature. - Related Data Home Medications Medication Instructions Recorded Confirmed Aspirin 81 mg PO DAILY 02/20/14 10/04/20 LORazepam [Ativan] 1 mg PO TID PRN 02/20/14 10/04/20 Verapamil HCl [Calan] 120 mg PO DAILY 02/20/14 10/04/20 Butalb/APAP/Caff 50-325-40Mg 1 tab PO Q8H PRN 03/25/17 10/04/20 [Fioricet 50-325-40] Budesonide/Formoterol Fumarate 2 puff INHALATION RT-BID 05/06/18 10/04/20 [Symbicort 160-4.5 Mcg Inhaler] Cholecalciferol [Vitamin D3 (25 50 mcg PO DAILY 05/07/18 10/04/20 Mcg = 1000 Iu)] Multivitamins, Thera [Multivitamin 1 tab PO DAILY 05/07/18 10/04/20 (formulary)] Pantoprazole Sodium [Protonix] 40 mg PO BID 10/31/18 10/04/20 Ipratropium-Albuterol Nebulize 3 ml INHALATION RT-QID PRN 11/22/18 10/04/20 [Duoneb 0.5 mg-3 mg/3 ml Soln] Memantine [Namenda] 10 mg PO BID 11/22/18 10/04/20 Montelukast [Singulair] 10 mg PO DAILY 11/22/18 10/04/20 Fluticasone Nasal [place] [Flonase 2 spray EA NOSTRIL DAILY PRN 04/28/19 10/04/20 Nasal [place]] Methocarbamol [Robaxin-750] 750 mg PO TID 04/28/19 10/04/20 Albuterol Sulfate [Ventolin HFA] 1 - 2 puff INHALATION RT-Q6H PRN 08/09/19 10/04/20 Ascorbic Acid [Vitamin C] 1,000 mg PO DAILY 01/30/20 10/04/20 Docusate [Colace] 100 mg PO DAILY PRN 01/30/20 10/04/20 Zinc Gluconate [Zinc] 25 mg PO DAILY 01/30/20 10/04/20 Diclofenac Sodium Gel [Voltaren 2 gm TOPICAL QID PRN #0 03/26/20 10/04/20 Gel] Ear Drops (Unknown) 1 dose LEFT EAR DIRECTED PRN 03/26/20 10/04/20 Elderberry Fruit and Flower [Black 1 cap PO DAILY 06/14/20 10/04/20 Elderberry 575 mg Cap] Turmeric Root Extract [Turmeric] 500 mg PO DAILY 06/14/20 10/04/20 Gabapentin 800 mg PO TID 08/21/20 10/04/20 Topiramate [Topamax] 100 mg PO BID 08/21/20 10/04/20 HYDROcodone/APAP 7.5-325MG [[place]ur[place] 1 tab PO TID 10/04/20 10/04/20 7.5-325] acetaZOLAMIDE [Diamox] 500 mg PO BID 10/04/20 10/04/20 Previous Rx's Medication Instructions Recorded rOPINIRole HCL [Requip] 0.25 mg PO TID #90 tab 01/31/18 PARoxetine [Paxil] 40 mg PO DAILY tab 05/09/18 hydroCHLOROthiazide [Hydrodiuril] 25 mg PO DAILY tab 11/26/18 Folic Acid 1 mg PO DAILY #30 tab 05/02/19 busPIRone HCl [Buspar] 10 mg PO TID #90 tab 05/02/19 Azithromycin [Zithromax Z-pack (6 0 mg PO DIRECTED #1 pack 10/24/20 tabs)] predniSONE 50 mg PO DAILY #5 tab 10/24/20 Allergies Allergy/AdvReac Type Severity Reaction Status Date / Time baclofen AdvReac URINARY Verified 10/04/20 08:50 ISSUES dexamethasone [From Decadron] AdvReac "THOMPSON Verified 10/04/20 08:50 SKIN"/DEHYDRATION Review of Systems ROS Statement: Those systems with pertinent positive or pertinent negative responses have been documented in the HPI. ROS Other: All systems not noted in ROS Statement are negative. Past Medical History Past Medical History: Asthma, Cancer, COPD, Eye Disorder, Fibromyalgia, GERD/Reflux, Hearing Disorder / Deafness, Hypertension, Memory Impairment, Neurologic Disorder, Osteoarthritis (OA), Pneumonia, Syncope Additional Past Medical History / Comment(s): MS relapsing/remitting type, chronic bilateral eye pain/optic neuritis/ poor vision, cataracts bilaterally, chronic occipital neuralgia, osteoporosis, RLS, chronic hypoxic respiratory failure with home oxygen 2L/NC prn, chronic bronchitis, immunocompromised, elevated blood sugar with steroid use, uterine cancer with hysterectomy/radiation, heart murmur, mild cognitive impairment, chronic vertigo, falls, rheumatic fever as child, tinnitis bilaterally, allergic rhinitis. History of Any Multi-Drug Resistant Organisms: None Reported Past Surgical History: Bladder Surgery, Heart Catheterization, Hysterectomy Additional Past Surgical History / Comment(s): Nerve blocks, bladder suspension. PAIN CLINIC Past Anesthesia/Blood Transfusion Reactions: No Reported Reaction Additional Past Anesthesia/Blood Transfusion Reaction / Comment(s): mild clausterphobia Past Psychological History: Anxiety, Depression Smoking Status: Current every day smoker Past Alcohol Use History: Rare Past Drug Use History: None Reported - Past Family History Mother Family Medical History: CVA/TIA, Myocardial Infarction ([place]) Additional Family Medical History / Comment(s): Mother is alive at age 75 with history of brain aneurysm, 3 strokes and 2 myocardial infarctions. Brain aneurysms run on mother's side of family Father Additional Family Medical History / Comment(s): Father at age 72 from a cardiac arrest thought to be due to a myocardial infarction. Sister(s) Additional Family Medical History / Comment(s): Patient has 2 sisters with no major medical problems. Patient does not have any brothers. Patient has 2 adult children with no major medical problems. Patient is only family member with MS. General Exam Limitations: no limitations General appearance: alert, in no apparent distress Head exam: Present: atraumatic, normocephalic, normal inspection Eye exam: Present: normal appearance, PERRL, EOMI. Absent: scleral icterus, conjunctival injection, periorbital swelling ENT exam: Present: mucous membranes moist. Absent: normal exam, normal oropharynx (Edentulous) Neck exam: Present: normal inspection, full ROM. Absent: tenderness, meningismus, lymphadenopathy Respiratory exam: Present: normal lung sounds bilaterally. Absent: respiratory distress, wheezes, rales, rhonchi, stridor Cardiovascular Exam: Present: regular rate, normal rhythm, normal heart sounds. Absent: systolic murmur, diastolic murmur, rubs, gallop, clicks Neurological exam: Present: alert, oriented X3, CN II-XII intact, reflexes normal. Absent: motor sensory deficit Skin exam: Present: warm, dry, intact, normal color. Absent: rash Course Vital Signs 10/24/20 10/24/20 06:31 07:33 Temperature 98.3 F Pulse Rate 112 H 96 Respiratory 18 16 Rate Blood Pressure 130/85 131/76 O2 Sat by Pulse 95 98 Oximetry Medical Decision Making - Medical Decision Making 55-year-old presented for multiple complaints. Patient has frontal cough related to her COPD. Patient says that she does not show any infiltrate. Labs do not reveal anything [place] white count 13.5. Patient's urinalysis does not show any evidence urinary tract infection. She's had bladder suspension the past and she feels like she may be having some issues with this. Patient advised to follow-up with Dr. Verde who did her surgery. Patient is demanding narcotic pain meds for her pain though she takes Gurabo daily she was offered her Gurabo patient refuses.I counseled the patient for smoking cessation for greater than 3 minutes - Lab Data Result diagrams: 10/24/20 06:48 10/24/20 06:48 Lab Results 10/24/20 10/24/20 10/24/20 Range/Units 06:48 06:48 06:48 WBC 13.5 H (3.8-10.6) k/uL RBC 5.12 (3.80-5.40) m/uL Hgb 15.1 (11.4-16.0) gm/dL Hct 50.3 H (34.0-46.0) % MCV 98.2 (80.0-100.0) fL MCH 29.5 (25.0-35.0) pg MCHC 30.1 L (31.0-37.0) g/dL RDW 13.4 (11.5-15.5) % Plt Count 280 (150-450) k/uL MPV 8.4 Neutrophils % 67 % Lymphocytes % 26 % Monocytes % 4 % Eosinophils % 2 % Basophils % 1 % Neutrophils # 9.0 H (1.3-7.7) k/uL Lymphocytes # 3.5 (1.0-4.8) k/uL Monocytes # 0.5 (0-1.0) k/uL Eosinophils # 0.2 (0-0.7) k/uL Basophils # 0.1 (0-0.2) k/uL Hypochromasia Slight Sodium 141 (137-145) mmol/L Potassium 3.4 L (3.5-5.1) mmol/L Chloride 103 (98-107) mmol/L Carbon Dioxide 28 (22-30) mmol/L Anion Gap 10 mmol/L BUN 12 (7-17) mg/dL Creatinine 0.56 (0.52-1.04) mg/dL Est GFR (CKD-EPI)AfAm >90 (>60 ml/min/1.73 sqM) Est GFR (CKD-EPI)NonAf >90 (>60 ml/min/1.73 sqM) Glucose 140 H (74-99) mg/dL Calcium 9.3 (8.4-10.2) mg/dL Magnesium 2.0 (1.6-2.3) mg/dL Total Bilirubin 0.4 (0.2-1.3) mg/dL AST 25 (14-36) U/L ALT 24 (4-34) U/L Alkaline Phosphatase 130 H (38-126) U/L Total Protein 6.9 (6.3-8.2) g/dL Albumin 4.3 (3.5-5.0) g/dL Urine Color Yellow Urine Appearance Cloudy H (Clear) Urine pH 6.5 (5.0-8.0) Ur Specific [place] 1.037 H (1.001-1.035) Urine Protein Trace H (Negative) Urine Glucose (UA) Negative (Negative) Urine Ketones Negative (Negative) Urine Blood Negative (Negative) Urine Nitrite Negative (Negative) Urine Bilirubin Negative (Negative) Urine Urobilinogen 2.0 (<2.0) mg/dL Ur Leukocyte Esterase Negative (Negative) Urine RBC 1 (0-5) /hpf Urine WBC 2 (0-5) /hpf Ur Squamous Epith Cells 9 H (0-4) /hpf Urine Bacteria Rare H (None) /hpf Hyaline Casts 1 (0-2) /lpf Urine Mucus Rare H (None) /hpf Disposition Clinical Impression: COPD with exacerbation, Chronic pain, Smoking Disposition: HOME SELF-CARE Condition: Stable Instructions (If sedation given, give patient instructions): COPD (Chronic Obstructive Pulmonary Disease) (ED) Additional Instructions: Please return to the Emergency Department if symptoms worsen or any other concerns. Prescriptions: predniSONE 50 mg PO DAILY #5 tab Azithromycin [Zithromax Z-pack (6 tabs)] 0 mg PO DIRECTED #1 pack Is patient prescribed a controlled substance at d/c from ED?: No Referrals: Kilo Tabares MD [Primary Care Provider] - 1-2 days Time of Disposition: 08:33
[2020-10-24 07:08] LABS: ALT 24 U/L (4-34); AST 25 U/L (14-36); African American GFR (CKD) >90 (>60 ml/min/1.73 sqM); Albumin 4.3 g/dL (3.5-5.0); Alkaline Phosphatase 130 U/L (38-126); Anion Gap 10 mmol/L; Blood Urea Nitrogen 12 mg/dL (7-17); Calcium 9.3 mg/dL (8.4-10.2); Carbon Dioxide 28 mmol/L (22-30); Chloride 103 mmol/L (98-107); Glucose 140 mg/dL (74-99); Non-African American GFR(CKD) >90 (>60 ml/min/1.73 sqM); Potassium 3.4 mmol/L (3.5-5.1); Sodium 141 mmol/L (137-145); Total Bilirubin 0.4 mg/dL (0.2-1.3); Total Protein 6.9 g/dL (6.3-8.2)
--- NOTE | 2020-10-24 07:12 | XR ---
EXAMINATION TYPE: XR chest 2V DATE OF EXAM: 10/24/2020 COMPARISON: 08/25/2020 HISTORY: Cough, weakness TECHNIQUE: Frontal and lateral views of the chest are obtained. FINDINGS: There is no focal air space opacity, pleural effusion, or pneumothorax seen. The cardiac silhouette size is within normal limits. The osseous structures are intact. IMPRESSION: No acute cardiopulmonary process.
[2020-10-24 07:35] VITALS: RESP 16
[2020-10-24 08:15] LABS: Appearance,Urine Cloudy (Clear); Bacteria,Urine Rare /hpf; Bilirubin,Urine Negative (Negative); Blood,Urine Negative (Negative); Color,Urine Yellow; Glucose,Urine (UA) Negative (Negative); Hyaline Casts,Urine 1 /lpf (0-2); Ketones,Urine Negative (Negative); Leukocyte Esterase,Urine Negative (Negative); Mucus,Urine Rare /hpf; Nitrite,Urine Negative (Negative); PH, Urine 6.5 (5.0-8.0); Protein,Urine Trace (Negative); RBC,Urine 1 /hpf (0-5); Specific Gravity,Urine 1.037 (1.001-1.035); Squamous Epithelial Cell,Urine 9 /hpf (0-4); WBC,Urine 2 /hpf (0-5)
[2020-10-24] MEDS ORDERED: HYDROcodone/APAP 7.5-325MG 1 EACH TAB PO ONE (08:33)
[2020-10-24 08:56] VITALS: BP 138/78; PULSE 78; TEMP 98.2
== END 2020-10-24 08:55 | disposition home or self-care (01) ==
LOC: EC 06:29
DX: J44.1 Chronic obstructive pulmonary disease with (acute) exacerbation (principal); R10.30 Lower abdominal pain, unspecified; G89.29 Other chronic pain; R35.0 Frequency of micturition; I10 Essential (primary) hypertension; H91.90 Unspecified hearing loss, unspecified ear; F17.200 Nicotine dependence, unspecified, uncomplicated; K21.9 Gastro-esophageal reflux disease without esophagitis; M79.7 Fibromyalgia; Z88.8 Allergy status to other drugs, medicaments and biological substances; Z79.51 Long term (current) use of inhaled steroids; Z79.899 Other long term (current) drug therapy
CPT/HCPCS: 99284; 96374 ×2; 36415; 80053; 83735; 85025; 81001; 71046; J1200; J1885

== ENCOUNTER 2020-11-13 12:33 | Day surgery (SDC) | payer MEDICARE, OTHER ==
[2020-11-12 11:00] VITALS: BMI 42.2
[2020-11-13 13:11] VITALS: TEMP 97.8
[2020-11-13] MEDS ORDERED: MIDAZOLAM 2 MG/2 ML VIAL ONE (13:40)
[2020-11-13] MEDS ORDERED: fentaNYL (PF) 50 MCG/ML 2 ML AMP ONE (13:40)
--- NOTE | 2020-11-13 14:19 | P.PCN ---
Date of Procedure: 11/13/20 Preoperative Diagnosis: Pseudotumor cerebri Postoperative Diagnosis: Same as above Procedure(s) Performed: Lumbar puncture under fluoroscopic guidance Anesthesia: other (IV moderate conscious sedation with lidocaine 1% for skin) Surgeon: Niall Calloway Pathology: none sent Condition: stable Disposition: PACU Description of Procedure: The patient was referred to our clinic for lumbar puncture to rule out pseudotumor cerebri. The patient was placed in the left lateral decubitus position, skin was prepped with DuraPrep and draped in a sterile manner. Fluoroscopy machine was used to locate the L3 4 Intervertebral level. and then I used 5 inch 22-gauge Quincke spinal needle to go through the skin after localizing the skin with lidocaine 1% and into the intrathecal space at the L3 4 level. AP and lateral views of fluoroscopy were used for this procedure. Clear spinal fluid was flowing freely. The opening pressure was 40 mm of water I drained 5 MLS of the fluid and the closing pressure was 32 mm H2O. Patient tolerated procedure well.
[2020-11-13] MEDS ORDERED: IV FLUID CONTINUATION 1,000 ML IV ONE (14:21)
[2020-11-13 14:27] VITALS: RESP 16
[2020-11-13 15:15] VITALS: BP 127/79; PULSE 101
--- NOTE | 2020-11-13 17:04 | FL ---
Fluoroscopy HISTORY: Pain 49 seconds fluoroscopy time supplied to the referring clinician. 2 intraoperative C-arm images docum ent the procedure. See dictated report from anesthesia.
== END 2020-11-13 15:33 | disposition home or self-care (01) ==
LOC: ORPAIN 12:33
PROVIDERS: ATTEND Specialist
DX: G93.2 Benign intracranial hypertension (principal); E66.01 Morbid (severe) obesity due to excess calories; Z68.41 Body mass index [BMI] 40.0-44.9, adult; Z90.710 Acquired absence of both cervix and uterus; Z88.8 Allergy status to other drugs, medicaments and biological substances
CPT/HCPCS: 62270; J2250; J3010; 99152; 99153

== ENCOUNTER → 2020-11-15 | Outpatient (CLI) | payer MEDICARE, OTHER ==
[2020-11-13 13:17] LABS: Glucose,Whole Blood 138 mg/dL (75-99)
[2020-11-15 11:07] VITALS: BP 106/74; PULSE 99; RESP 16; TEMP 98.5
--- NOTE | 2020-11-15 11:27 | P.PN ---
Subjective Progress Note Date: 11/15/20 This is follow-up visit for this 54 years old female, and she is diagnosed with pseudotumor cerebri, and multiple sclerosis, and severe headache, and occipital neuralgia , sever low back pain she is diagnosed with lumbar spondylosis with lumbar facet arthropathy without myelopathy simply would have done diagnostic medial branch block lumbar areal3,l4 ,l5 bilaterally 2 and she had more than 80% improvement of her low back pain after each block Physical Examinations : -Constitutiona : Cooperative , not in acute distress . -HEENT : nech : supple , no Lymphadenopathy , normal thyroid size . : eyes : no ptosis , no icterus, no photophobia . - neurologic : Cranial nerve II to XII intact , no focal neurological deffecit . -psychatric : alert , oriented X 3 , appropriate affect , intact judgment and insight . -Lymphatic : no Lymphadenopathy . - musculoskeltal : . Lumber spine moter stegnth lower extremities ,thigh and legs 5/5 Right side , 3-4/5 Left side deep tendon reflexes : normal Knee J erk , normal ankle Jerk lumber facet Loading Test =positive Right , positive Left Range of motion of the lumbar spine Flexion 30 degrees, extension 10 degrees strait leg raising test = positive at 30 degree Fabere test= positive Right , and positive LT . Sever tenderness over the Sacroiliac joint on the Right , and Left sides Gaenslen test= positive right ,and positive left . Seated flexion test= positive right ,and positive Left . MRI of the lumbar spine= multilevel lumbar bulging disc disease multilevel lumbar facet arthropathy, and multilevel foraminal stenosis Assessment and Plan Plan: Assessment and plan=1-lumbar spondylosis with lumbar facet arthropathy without myelopathy. 2-lumbar degenerative disc disease. 3-bilateral sacroiliitis. 4-occipital neuralgia. 5-multiple sclerosis. She had 80% improvement of her low back pain after each diagnostic medial branch block at 80% improvement of her pain for short- term Patient will be good candidate for RFA medial branch block lumbar area at L3, L4 ,L5 ( L4-5 , L5-S1 facet ) - PQRS measures = - Patient's medications are documented in the chart. -Tobacco use is positive, and counseling.Given. -Patient's has not received pneumococcal vaccine. -Advanced care planning discussed, patient not eligible. -Opiate contract not signed. -Pain positive and follow-up visit/procedure is scheduled. -Patient's blood pressure measured [ 106/74] , and documented in the record ,and patient will follow up with the primary care. -Patient's weight was measured and body mass index [ 43 ] above the normal limits and counseling was done. and patient instructed to follow-up with the primary care physician. -Patient was not identified as an unhealthy alcohol user Objective - Vital Signs Vital signs: Vital Signs Temp 98.5 F 11/15/20 10:57 Pulse 99 11/15/20 10:57 Resp 16 11/15/20 10:57 BP 106/74 11/15/20 10:57 Pulse Ox 87 L 11/15/20 10:57 Intake & Output 11/14/20 11/15/20 11/15/20 18:59 06:59 18:59 Weight 107.501 kg
== END ==
LOC: PNWHC3 10:38
PROVIDERS: ATTEND Specialist
DX: M47.816 Spondylosis without myelopathy or radiculopathy, lumbar region (principal); M51.36 Other intervertebral disc degeneration, lumbar region; M46.1 Sacroiliitis, not elsewhere classified; M54.81 Occipital neuralgia; G35 Multiple sclerosis
CPT/HCPCS: 99211

== ENCOUNTER 2021-01-11 11:30 | Day surgery (SDC) | payer MEDICARE, OTHER ==
[2021-01-08 13:42] VITALS: BMI 44.4
[2021-01-11 11:57] VITALS: TEMP 99
[2021-01-11] MEDS ORDERED: ROPIVACAINE 5MG/ML 20ML VIAL ONE (12:09)
[2021-01-11] MEDS ORDERED: methylPREDNISolone ACETATE 40 MG/ML 1 ML VIAL ONE (12:09)
[2021-01-11] MEDS ORDERED: MIDAZOLAM 2 MG/2 ML VIAL ONE (12:09)
[2021-01-11] MEDS ORDERED: fentaNYL (PF) 50 MCG/ML 2 ML AMP ONE (12:09)
--- NOTE | 2021-01-11 12:51 | P.PCN ---
Date of Procedure: 01/11/21 Procedure(s) Performed: PREOPERATIVE DIAGNOSIS: 1-Lumbar Spondylosis with Facet Arthropathy without myelopathy. 2- Lumber degenerative disc disease. POSTOPERATIVE DIAGNOSIS: 1- Lumbar Spondylosis with Facet Arthropathy without myelopathy. 2- Lumber degenerative disc disease. PROCEDURES : Bilateral Radiofrequency thermocoagulation, L3 , L4 , and L5 medial branch, with fluoroscopic guidance (fluoroscopy images available in the radiology department) ( to denervate the facet joint at L4-5 ,and L5-S1 levels ) ANESTHESIA:monitered anesthesia care, as per anesthesia department. EBL: Minimal PROCEDURE INDICATION: The patient with low back pain secondary to lumbar facet arthropathy who had more than 50% relief of her pain with previous diagnostic lumbar medial branch block with bupivacaine. PROCEDURE DESCRIPTION / TECHNIQUE: The patient was seen and identified in the preoperative area. Risks, benefits, complications, including but not limited to risk of infection ,bleeding , allergic reactions to the medications and no complete pain releife , and alternatives were discussed with the patient, the patient agreed to proceed with the procedure and signed the consent. IV was started. Vital signs remained stable throughout the procedure. Patient was taken to the OR and time out was completed. The patient was placed in the prone position on the procedure table. The lumber area was prepped and draped in the usual sterile fashion. . Vital signs were closely monitored during the procedure .IV sedation was used during the procedure to decrease patients anxiety. Using AP and then oblique fluoroscopy, the ``eye of the Tone dog corresponding to the connection between the superior and transverse articular processes of right L3, L4, and L5 were identified, marked, and localized with 1% lidocaine. Subsequently, a 18 -ld radiofrequency cannula with a 10- mm active tip was advanced guided by fluoroscopy to each of the``eyes of the Tone dog at right L3, L4, and L5. Each site then underwent sensory testing at 50 Hz and 0 to 1 volt and motor testing at 2.5 Hz and 0 to 3 volt with local stimulation, but no radicular symptoms down the legs. Thereafter each sites underwent radiofrequency thermocoagulation at 80 degrees celsius for 90 seconds after injecting 0.5 ml of PF Ropivacaine 1ml, then after the thermocoagulation done , 1 ml of the block solution containing Depo-Medrol 40 mg and 3 ml of Ropivacaine 0.5% was injected at the right L3 , L4 , and L5 , levels after negative aspiration of CSF and blood and with no paresthesias. Cannulas were retracted while injecting lidocaine 1% until the needle is out. The same procedure was repeated at the level of Left L3, L4, and L5 levels. At the end of the procedure, the skin was cleansed and bandages were applied. COMPLICATIONS: No acute complications. DISPOSITION / PLANS: The patient was placed in a supine position and transferred to the recovery area in a stable condition for observation and was discharged from the recovery room after meeting discharge criteria. Home discharge instructions given to the patient by the staff. The patient was reexamined prior to discharge. The patient will schedule a follow up in the clinic in 2-4 weeks.
[2021-01-11] MEDS ORDERED: IV FLUID CONTINUATION 1,000 ML IV ONE (12:53)
--- NOTE | 2021-01-11 13:00 | FL ---
EXAMINATION TYPE: FL guided pain mgmt statistic DATE OF EXAM: 01/11/2021 HISTORY: Fluoroscopy time 30 seconds of fluoroscopy provided. IMPRESSION: 1. Fluoroscopy time.
[2021-01-11 13:18] VITALS: BP 110/39; PULSE 98; RESP 16
== END 2021-01-11 13:30 | disposition home or self-care (01) ==
LOC: ORPAIN 11:30
PROVIDERS: ATTEND Specialist
DX: M47.816 Spondylosis without myelopathy or radiculopathy, lumbar region (principal)
CPT/HCPCS: 64635; 64636; J2250; J1030; J3010; J2795

== ENCOUNTER → 2021-02-06 | Outpatient (CLI) | payer MEDICARE, OTHER ==
[2021-02-06 18:52] LABS: Basophils # (A) 0.06 X 10*3/uL (0.00-0.10); Basophils % (A) 0.6 %; Eosinophils # (A) 0.17 X 10*3/uL (0.04-0.35); Eosinophils % (A) 1.6 %; HCT 47.9 % (37.2-46.3); HGB 14.4 g/dL (12.0-15.0); Lymphocytes # (A) 2.37 X 10*3/uL (0.90-5.00); Lymphocytes % (A) 22.4 %; MCH 30.4 pg (27.0-32.0); MCHC 30.1 g/dL (32.0-37.0); MCV 101.3 fL (80.0-97.0); Mean Platelet Volume 11.5 fL (9.5-12.2); Monocytes # (A) 0.73 X 10*3/uL (0.20-1.00); Monocytes % (A) 6.9 %; Neutrophils # (A) 7.23 X 10*3/uL (1.80-7.70); Neutrophils % (A) 68.1 %; Platelet Count 245 X 10*3/uL (140-440); RBC 4.73 X 10*6/uL (4.10-5.20); RDW 13.2 % (11.5-14.5)
[2021-02-06 21:47] LABS: Hepatitis B Core IgM Nonreactive (Nonreactive); Hepatitis B Surface Antibody NonReactive (Nonreactive); Hepatitis B Surface Antigen Nonreactive (Nonreactive)
[2021-02-06 23:39] LABS: T4, Free (Free Thyroxine) 1.09 ng/dL (0.800-1.800)
[2021-02-07 20:33] LABS: Albumin 4.4 g/dL (3.8-4.9); Albumin/Globulin Ratio 2.44 (1.60-3.17); Anion Gap 14.2 mmol/L (4.00-12.00); BUN/Creat Ratio 15.89 Ratio (12.00-20.00); Blood Urea Nitrogen 10.9 mg/dL (9.0-27.0); Calcium 9.3 mg/dL (8.7-10.3); Carbon Dioxide 23.7 mmol/L (21.6-31.8); Globulin 1.8 g/dL (1.6-3.3); Non-African American GFR(CKD) 97.5 (60.0-200.0); Potassium 3.3 mmol/L (3.5-5.5); Total Bilirubin 0.4 mg/dL (0.30-1.20); Total Protein 6.1 g/dL (6.2-8.2)
[2021-02-08 05:54] LABS: Varicella IgM Antibody 0.14 INDEX (<=0.90)
== END | disposition home or self-care (01) ==
LOC: LABWHC1 13:00
PROVIDERS: ATTEND Psychiatry & Neurology Pain Medicine
DX: G35 Multiple sclerosis (principal)
CPT/HCPCS: 36415; 80053; 82306; 82607; 82728; 83036; 84207; 84425; 84439; 84443; 84481; 84591; 85025; 86704; 86705; 86706; 86787; 87340; 87390

== ENCOUNTER → 2021-02-13 | Outpatient (CLI) | payer MEDICARE, OTHER ==
[2021-02-13 13:21] VITALS: BP 113/73; PULSE 94; RESP 18; TEMP 98.8
--- NOTE | 2021-02-13 13:44 | P.PN ---
Subjective Progress Note Date: 02/13/21 This is followed for this 55 years old female with a chronic history of severe low back pain, she is the ankles with lumbar spondylosis with lumbar facet arthropathy, recently we have done an RFA of the medial branch lumbar area, she reported that her low back pain improved more than 80%, currently her main issue is severe neck pain with radiation to the right upper extremity, the pain increases with any neck movement interfere with the quality of life, the patient continued to use pain medication Percocet and gabapentin and Robaxin, and she continued to use a wheelchair when she ambulate she is already doing a home exercise, and stretches Objective - Vital Signs Vital signs: Vital Signs Temp 98.8 F 02/13/21 13:15 Pulse 94 02/13/21 13:15 Resp 18 02/13/21 13:15 BP 113/73 02/13/21 13:15 Pulse Ox 95 02/13/21 13:15 - Exam Physical Examinations : -Constitutiona : Cooperative , not in acute distress . -HEENT : nech : supple , no Lymphadenopathy , normal thyroid size . : eyes : no ptosis , no icterus, no photophobia . - neurologic : Cranial nerve II to XII intact , no focal neurological deffecit . -psychatric : alert , oriented X 3 , appropriate affect , intact judgment and insight . -Lymphatic : no Lymphadenopathy . - musculoskeltal : Cervical Spine motor stregnth in the deltoid and biceps, normal right side , normal Left side motor stregnth biceps and the wrist extensors normal right side ,normal left side . motor stregnth in the triceps muscle . normal Right side , normal Left side deep tendon reflexes normal at the biceps , normal at Brachioradialis , normal at triceps. cervical facet loading test: Positive Bilaterally Spurling test= positive Right , positive left. Neck distraction test= positive Right , positive left. Kush sign= positive right, positive left . Lumber spine moter stegnth lower extremities ,thigh and legs 5/5 Right side , 3-4/5 Left side deep tendon reflexes : normal Knee Jerk , normal ankle Jerk lumber facet Loading Test =positive Right , positive Left Range of motion of the lumbar spine Flexion 30 degrees, extension 10 degrees strait leg raising test = positive at 60 degree Fabere test= positive Right , and positive LT . tenderness over the Sacroiliac joint on the Right , and Left sides CT scan of the cervical spine= multi level cervical spondylosis Assessment and Plan Plan: Assessment and plan=1-cervical radiculopathy. 2-cervical spondylosis. 3-lumbar spondylosis with lumbar facet arthropathy. 4-lumbar degenerative disc disease. 5-sacroiliitis Patient will be good candidate to have cervical epidural steroid injection at C7-T1 right paramedian approach. She should continue to use her current medication as prescribed by her primary care. - PQRS measures = - Patient's medications are documented in the chart. -Tobacco use is negative and counseling.Given. -Patient's has received pneumococcal vaccine. -Advanced care planning discussed, patient not eligible. -Opiate contract not signed. -Pain positive and follow-up visit/procedure is scheduled. -Patient's blood pressure measured [ 113/73 ] , and documented in the record ,and patient will follow up with the primary care. -Patient's weight was measured and body mass index [41 ] above the, normal limits and counseling was done. and patient instructed to follow-up with the primary care physician. -Patient was not identified as an unhealthy alcohol user Time with Patient: Less than 30
== END ==
LOC: PNWHC3 13:05
PROVIDERS: ATTEND Specialist
DX: M47.816 Spondylosis without myelopathy or radiculopathy, lumbar region (principal); M51.36 Other intervertebral disc degeneration, lumbar region; M46.1 Sacroiliitis, not elsewhere classified; M47.22 Other spondylosis with radiculopathy, cervical region; F17.200 Nicotine dependence, unspecified, uncomplicated; Z88.8 Allergy status to other drugs, medicaments and biological substances; Z88.6 Allergy status to analgesic agent
CPT/HCPCS: 99211

== ENCOUNTER 2021-03-21 12:44 | Day surgery (SDC) | payer MEDICARE, OTHER ==
[2021-03-20 10:46] VITALS: BMI 43.0
[2021-03-21] MEDS ORDERED: IV FLUID CONTINUATION 1,000 ML IV ONE (13:01)
[2021-03-21 13:39] VITALS: TEMP 97.1
[2021-03-21] MEDS ORDERED: LACTATED RINGERS 1,000 ML IV ONE (13:40)
[2021-03-21] MEDS ORDERED: DEXAMETHASONE SOD PHOSPHATE 10 MG/ML 1 ML VIAL ONE (13:46)
[2021-03-21] MEDS ORDERED: MIDAZOLAM 2 MG/2 ML VIAL ONE (13:46)
[2021-03-21] MEDS ORDERED: fentaNYL (PF) 50 MCG/ML 2 ML AMP ONE (13:46)
[2021-03-21] MEDS ORDERED: IOPAMIDOL M200 10 ML VIAL ONE (13:46)
--- NOTE | 2021-03-21 14:00 | P.PCN ---
Date of Procedure: 03/21/21 Procedure(s) Performed: . PROCEDURE 1. Cervical epidural steroid injection under fluoroscopic guidance, C7-T1 (fluoroscopy images available in the radiology department ) 2. Cervical epidurogram. PREOPERATIVE DIAGNOSIS: 1- Cervical radiculopathy., 3-cervical spondylosis with cervical Facet arthropathy without myelopathy POSTOPERATIVE DIAGNOSIS: : 1- Cervical radiculopathy. 3-,cervical spondylosis with cervical Facet arthropathy without myelopathy ANESTHESIA: Local anesthesia with lidocaine 1 % , and moderate sedation, with Versed 3 mg and Fentanyl 100 mcg. EBL 0 PROCEDURE INDICATION: The patient with neck pain and radiculitis unresponsive to conservative treatment consents for procedure. PROCEDURE DESCRIPTION / TECHNIQUE: The patient was seen and identified in the preoperative area. Risks, benefits, complications, including but not limited to infections ,bleeding , allergic reactions to the medications ,and not complete pain releife, and alternatives were discussed with the patient, the patient agreed to proceed with the procedure and signed the consent. Patient was taken to the OR and time out was completed. The patient was placed in the prone position on the procedure table. A pillow was placed under the patients chest to increase the cervical interlaminar space. The cervical area was prepped and draped in the usual sterile fashion. Vital signs were closely monitored during the procedure. Conscious sedation was used during the procedure to decrease patients anxiety. Using anterior-posterior fluoroscopy, the C7-T1 interlaminar space was identified and the skin over this site was marked and then infiltrated with 1% lidocaine subcutaneously. Subsequently, a 20-gauge 3-1/2-inch Tuohy epidural needle was inserted and advanced toward the epidural space by means of the ``hanging-drop technique and guided by AP and lateral fluoroscopy. The correct needle position in the epidural space was verified with the injection of 2 mL of the water soluble contrast dye [id number]-200 and observing an excellent epidurogram with the epidural spread of the dye, after negative aspiration for blood and CSF and in the absence of paresthesias. then, mixture containing 20 mg Dexamethasone and 2 ml of preservative-free normal saline injected and a washout of epidurogram was seen. Needle was withdrawn intact, skin was cleansed, and bandages were applied. Complications= none. Disposition= patient was placed in supine position and transferred to the recovery room area in stable condition and there was no evidence of upper or lower extremity motor or sensory deficit after the procedure patient was discharged from recovery room after discharge criteria met and home discharge instructions was given by the staff and patient will follow with the pain clinic in 2-4 weeks note= past per medical record patient has ALLERGY to dexamethasone but during interview patient reported that she was taking Decadron orally before and she did not like the feeling and she took the Decadron orally for this reason does not have ALLERGY dexamethasone, and we used today
[2021-03-21 14:07] VITALS: RESP 16
--- NOTE | 2021-03-21 14:13 | FL ---
EXAMINATION TYPE: FL guided pain mgmt statistic DATE OF EXAM: 03/21/2021 HISTORY: Fluoroscopy time 2 seconds of fluoroscopy provided. IMPRESSION: 1. Fluoroscopy time.
[2021-03-21 15:03] VITALS: BP 101/71; PULSE 98
== END 2021-03-21 15:30 | disposition home or self-care (01) ==
LOC: ORPAIN 12:44
PROVIDERS: ATTEND Specialist
DX: M47.22 Other spondylosis with radiculopathy, cervical region (principal); Z88.6 Allergy status to analgesic agent; Z88.8 Allergy status to other drugs, medicaments and biological substances
CPT/HCPCS: 62321; J2250; J1100; J3010; Q9966

== ENCOUNTER 2021-03-27 05:38 | Inpatient (IN) | payer MEDICARE, OTHER ==
--- NOTE | 2021-03-27 05:50 | ED ---
SOB HPI - General Chief Complaint: Shortness of Breath Stated Complaint: Difficulty Breathing Time Seen by Provider: 03/27/21 05:49 Source: patient, EMS Mode of arrival: EMS Limitations: no limitations - History of Present Illness Initial Comments: Dominik is a 55-year-old female with a history of MS, she presents to the emergency department today via ambulance for evaluation of shortness of breath. Patient was having fevers, body aches, cough that is nonproductive and wheezing. Upon EMS arrival patient oxygen saturation of 84% on room air. She was placed on 6 L nasal cannula. Patient denies any chest pain or palpitation she reports she feels that she can't breathe and she has fever. - Related Data Home Medications Medication Instructions Recorded Confirmed Aspirin 81 mg PO DAILY 02/20/14 02/11/21 LORazepam [Ativan] 1 mg PO TID PRN 02/20/14 02/11/21 Verapamil HCl [Calan] 120 mg PO DAILY 02/20/14 02/11/21 Butalb/APAP/Caff 50-325-40Mg 1 tab PO Q8H PRN 03/25/17 02/11/21 [Fioricet 50-325-40] Budesonide/Formoterol Fumarate 2 puff INHALATION RT-BID 05/06/18 02/11/21 [Symbicort 160-4.5 Mcg Inhaler] Cholecalciferol [Vitamin D3 (25 50 mcg PO DAILY 05/07/18 02/11/21 Mcg = 1000 Iu)] Multivitamins, Thera [Multivitamin 1 tab PO DAILY 05/07/18 02/11/21 (formulary)] Pantoprazole Sodium [Protonix] 40 mg PO BID 10/31/18 02/11/21 Ipratropium-Albuterol Nebulize 3 ml INHALATION RT-QID PRN 11/22/18 02/11/21 [Duoneb 0.5 mg-3 mg/3 ml Soln] Memantine [Namenda] 10 mg PO BID 11/22/18 02/11/21 Montelukast [Singulair] 10 mg PO DAILY 11/22/18 02/11/21 Fluticasone Nasal [place] [Flonase 2 spray EA NOSTRIL DAILY PRN 04/28/19 02/11/21 Nasal [place]] Methocarbamol [Robaxin-750] 750 mg PO TID 04/28/19 02/11/21 Albuterol Sulfate [Ventolin HFA] 1 - 2 puff INHALATION RT-Q6H PRN 08/09/19 02/11/21 Ascorbic Acid [Vitamin C] 1,000 mg PO DAILY 01/30/20 02/11/21 Docusate [Colace] 100 mg PO DAILY PRN 01/30/20 02/11/21 Zinc Gluconate [Zinc] 25 mg PO DAILY 01/30/20 02/11/21 Diclofenac Sodium Gel [Voltaren 2 gm TOPICAL QID PRN #0 03/26/20 02/11/21 Gel] Ear Drops (Unknown) 1 dose LEFT EAR DIRECTED PRN 03/26/20 02/11/21 Elderberry Fruit and Flower [Black 1 cap PO DAILY 06/14/20 02/11/21 Elderberry 575 mg Cap] Turmeric Root Extract [Turmeric] 500 mg PO DAILY 06/14/20 02/11/21 Gabapentin 800 mg PO TID 08/21/20 02/11/21 Topiramate [Topamax] 100 mg PO BID 08/21/20 02/11/21 acetaZOLAMIDE [Diamox] 500 mg PO BID 10/04/20 02/11/21 oxyCODONE-APAP 7.5-325MG [Percocet 1 tab PO TID 10/30/20 02/11/21 7.5-325 mg] Previous Rx's Medication Instructions Recorded rOPINIRole HCL [Requip] 0.25 mg PO TID #90 tab 01/31/18 PARoxetine [Paxil] 40 mg PO DAILY tab 05/09/18 hydroCHLOROthiazide [Hydrodiuril] 25 mg PO DAILY tab 11/26/18 Folic Acid 1 mg PO DAILY #30 tab 05/02/19 busPIRone HCl [Buspar] 10 mg PO TID #90 tab 05/02/19 Allergies Allergy/AdvReac Type Severity Reaction Status Date / Time baclofen AdvReac URINARY Verified 03/27/21 05:46 ISSUES dexamethasone [From Decadron] AdvReac "THOMPSON Verified 03/27/21 05:46 SKIN"/DEHYDRATION Review of Systems ROS Statement: Those systems with pertinent positive or pertinent negative responses have been documented in the HPI. ROS Other: All systems not noted in ROS Statement are negative. Past Medical History Past Medical History: Asthma, Cancer, COPD, Eye Disorder, Fibromyalgia, GERD/Reflux, Hearing Disorder / Deafness, Hypertension, Memory Impairment, Musculoskeletal Disorder, Neurologic Disorder, Osteoarthritis (OA), Pneumonia, Syncope Additional Past Medical History / Comment(s): MS relapsing/remitting type, chronic bilateral eye pain/optic neuritis/ poor vision, cataracts bilaterally, chronic occipital neuralgia, osteoporosis, RLS, chronic hypoxic respiratory failure with home oxygen 2L/NC prn, chronic bronchitis, immunocompromised, elevated blood sugar with steroid use, uterine cancer with hysterectomy/radiation, heart murmur, mild cognitive impairment, chronic vertigo, falls, rheumatic fever as child, tinnitis bilaterally, allergic rhinitis, trigeminal neuralgia. History of Any Multi-Drug Resistant Organisms: None Reported Past Surgical History: Bladder Surgery, Heart Catheterization, Hysterectomy, Tubal Ligation Additional Past Surgical History / Comment(s): Nerve blocks, bladder suspension, fibroid removal. PAIN CLINIC Past Anesthesia/Blood Transfusion Reactions: No Reported Reaction, Postoperative Nausea & Vomiting (PONV) Additional Past Anesthesia/Blood Transfusion Reaction / Comment(s): mild claustrophobia Past Psychological History: Anxiety, Depression Smoking Status: Current every day smoker - Past Family History Mother Family Medical History: CVA/TIA, Myocardial Infarction ([place]) Additional Family Medical History / Comment(s): Mother is alive at age 75 with history of brain aneurysm, 3 strokes and 2 myocardial infarctions. Brain aneurysms run on mother's side of family Father Additional Family Medical History / Comment(s): Father at age 72 from a cardiac arrest thought to be due to a myocardial infarction. Sister(s) Family Medical History: No Reported History Additional Family Medical History / Comment(s): Patient has 2 sisters with no major medical problems. Patient does not have any brothers. Patient has 2 adult children with no major medical problems. Patient is only family member with MS. General Exam - General Exam Comments Initial Comments: Physical Exam GENERAL: Ill appearing, moderate respiratory distress HENT: Normocephalic, Atraumatic. EYES: PERRL, EOMI PULMONARY: Wheezing in all lung schwarz, 2 word dyspnea CARDIOVASCULAR: Tachycardia, regular ABDOMEN: Soft and nontender with normal bowel sounds. SKIN: Skin is clear with no lesions or rashes and otherwise unremarkable. : Deferred NEUROLOGIC: Patient is alert and oriented x3. Moving all extremities spontaneously MUSCULOSKELETAL: No evidence of injury PSYCHIATRIC: Normal psychiatric evaluation. Limitations: no limitations Course Vital Signs 03/27/21 03/27/21 05:40 06:12 Temperature 99.3 F Pulse Rate 113 H Respiratory 24 24 Rate Blood Pressure 113/79 O2 Sat by Pulse 99 Oximetry Medical Decision Making - Medical Decision Making Was seen and evaluated upon arrival in the emergency department 55-year-old female with history of COPD and MS presenting with fevers chills body aches wheezing concerning for COVID-19. The patient is fully vaccinated. Labs and imaging were obtained chest x-ray reveals bilateral pulmonary infiltrates concerning for atypical likely viral pneumonia Patient improving 6 L nasal cannula after breathing treatments. Patient be admitted to the hospital for further oxygen management. COVID-19 test pending. Patient care was discussed with Dr. Martinez excepts the admission with consult pulmonology. - Lab Data Result diagrams: 03/27/21 05:57 03/27/21 05:57 Lab Results 03/27/21 03/27/21 03/27/21 Range/Units 05:57 05:57 05:57 WBC 13.8 H (3.8-10.6) k/uL RBC 4.26 (3.80-5.40) m/uL Hgb 13.3 (11.4-16.0) gm/dL Hct 44.1 (34.0-46.0) % MCV 103.4 H (80.0-100.0) fL MCH 31.3 (25.0-35.0) pg MCHC 30.3 L (31.0-37.0) g/dL RDW 12.8 (11.5-15.5) % Plt Count 200 (150-450) k/uL MPV 8.4 Neutrophils % 83 % Lymphocytes % 9 % Monocytes % 5 % Eosinophils % 1 % Basophils % 0 % Neutrophils # 11.5 H (1.3-7.7) k/uL Lymphocytes # 1.2 (1.0-4.8) k/uL Monocytes # 0.7 (0-1.0) k/uL Eosinophils # 0.1 (0-0.7) k/uL Basophils # 0.1 (0-0.2) k/uL Hypochromasia Moderate Macrocytosis Slight Sodium 138 (137-145) mmol/L Potassium 3.5 (3.5-5.1) mmol/L Chloride 102 (98-107) mmol/L Carbon Dioxide 29 (22-30) mmol/L Anion Gap 7 mmol/L BUN 8 (7-17) mg/dL Creatinine 0.67 (0.52-1.04) mg/dL Est GFR (CKD-EPI)AfAm >90 (>60 ml/min/1.73 sqM) Est GFR (CKD-EPI)NonAf >90 (>60 ml/min/1.73 sqM) Glucose 131 H (74-99) mg/dL Calcium 8.8 (8.4-10.2) mg/dL Magnesium 1.6 (1.6-2.3) mg/dL Total Bilirubin 0.4 (0.2-1.3) mg/dL AST 33 (14-36) U/L ALT 33 (4-34) U/L Alkaline Phosphatase 106 (38-126) U/L Lactate Dehydrogenase 602 (313-618) U/L Troponin I <0.012 (0.000-0.034) ng/mL Total Protein 6.1 L (6.3-8.2) g/dL Albumin 3.7 (3.5-5.0) g/dL Disposition Clinical Impression: COPD exacerbation Disposition: ADMITTED IP TO THIS HOSP Condition: Stable Referrals: Kilo Tabares MD [Primary Care Provider] - 1-2 days
[2021-03-27 06:14] LABS: Basophils # (A) 0.1 k/uL (0-0.2); Basophils % (A) 0 %; Eosinophils # (A) 0.1 k/uL (0-0.7); Eosinophils % (A) 1 %; HCT 44.1 % (34.0-46.0); HGB 13.3 gm/dL (11.4-16.0); Hypochromasia Moderate; Lymphocytes # (A) 1.2 k/uL (1.0-4.8); Lymphocytes % (A) 9 %; MCH 31.3 pg (25.0-35.0); MCHC 30.3 g/dL (31.0-37.0); MCV 103.4 fL (80.0-100.0); Macrocytosis Slight; Mean Platelet Volume 8.4; Monocytes # (A) 0.7 k/uL (0-1.0); Monocytes % (A) 5 %; Neutrophils # (A) 11.5 k/uL (1.3-7.7); Neutrophils % (A) 83 %; Platelet Count 200 k/uL (150-450); RBC 4.26 m/uL (3.80-5.40); RDW 12.8 % (11.5-15.5); WBC 13.8 k/uL (3.8-10.6)
[2021-03-27 06:31] LABS: ALT 33 U/L (4-34); AST 33 U/L (14-36); African American GFR (CKD) >90 (>60 ml/min/1.73 sqM); Albumin 3.7 g/dL (3.5-5.0); Alkaline Phosphatase 106 U/L (38-126); Anion Gap 7 mmol/L; Blood Urea Nitrogen 8 mg/dL (7-17); Calcium 8.8 mg/dL (8.4-10.2); Carbon Dioxide 29 mmol/L (22-30); Chloride 102 mmol/L (98-107); Glucose 131 mg/dL (74-99); LDH 602 U/L (313-618); Magnesium 1.6 mg/dL (1.6-2.3); Non-African American GFR(CKD) >90 (>60 ml/min/1.73 sqM); Potassium 3.5 mmol/L (3.5-5.1); Sodium 138 mmol/L (137-145); Total Bilirubin 0.4 mg/dL (0.2-1.3); Total Protein 6.1 g/dL (6.3-8.2)
[2021-03-27 06:38] LABS: INR 0.9 (<1.2)
[2021-03-27 06:56] LABS: Partial Thromboplastin Time 20.9 sec (22.0-30.0)
--- NOTE | 2021-03-27 07:24 | XR ---
EXAMINATION TYPE: XR chest 1V portable DATE OF EXAM: 03/27/2021 Comparison: 10/24/2020 Clinical History: 55-year-old female Suspected COVID-19 pneumonia Findings: Heart is enlarged. Interstitial opacities may be slightly more pronounced. Exam limited by portable t echnique and large body habitus and secondary underpenetration. No pleural effusion. Impression: Continued cardiomegaly. Limited by large body habitus and portable technique. Interstitial changes ma y be slightly increased.
[2021-03-27] MEDS: IPRATROPIUM-ALBUTEROL 3 ML NEB INHALATION PRN (07:51)
[2021-03-27 08:05] LABS: C Reactive Protein 5.7 mg/dL (<1.0)
[2021-03-27] MEDS: ASCORBIC ACID 500 MG TAB PO SCH ×2 (08:15→21:02)
[2021-03-27] MEDS: methylPREDNISolone SOD SUCCI 125 MG/2 ML VIAL IV SCH ×3 (08:15→21:01)
[2021-03-27] MEDS: CHOLECALCIFEROL 25 MCG (1000 IU) TABLET PO SCH (08:15)
[2021-03-27] MEDS: AMOXIC-POT CLAV 875-125MG 1 EACH TAB PO SCH ×2 (08:19→22:37)
[2021-03-27] MEDS: BUTALB/APAP/CAFF 50-325-40MG TAB PO PRN ×2 (08:56→23:32)
[2021-03-27] MEDS ORDERED: IPRATROPIUM-ALBUTEROL 3 ML NEB INHALATION PRN (09:21)
[2021-03-27] MEDS ORDERED: FLUTICASONE 50MCG/SPRAY NASAL 16GM EA NOSTRIL PRN (09:21)
--- NOTE | 2021-03-27 11:00 | P.CNPUL ---
History of Present Illness Consult date: 03/27/21 Requesting physician: Kilo Tabares Reason for consult: dyspnea, cough, COPD, hypoxemia Chief complaint: Shortness of breath. History of present illness: Pulmonary consultation dated 03/27/2021. 55-year-old black female, seen in the emergency department. She was in room 19. She was brought in by EMS with severe shortness of breath. The patient apparently not been feeling well for about a day or so prior to admission. In addition, she was complaining of fever, body aches, cough, and wheezing. She does have a well-established history of underlying COPD. She sees one of my partners in the office. Apparently upon arrival, EMS discovered the patient have a saturation of 84% on room air. She was placed on nasal cannula at 6 L. Currently, she is getting a breathing treatment in the emergency department. He room 19. She's on 4 L nasal cannula. White count 13.8, hemoglobin 13.3, hematocrit 44.1, platelet count 200,000. PT 10, INR 0.9, PTT 20.9. Sodium potassium chloride CO2 all normal. Anion gap 7, BUN 8, creatinine 0.67. The patient's swab for coronavirus, was negative. Pro-calcitonin level was 0.12. N-terminal proBNP was 168. Chest x-ray was positive for cardiomegaly, and some mild interstitial changes. Review of Systems REVIEW OF SYSTEMS: CONSTITUTIONAL: [Negative.] NEUROLOGIC: [ Negative.] HEENT: [ Negative.] CARDIAC: [Negative.] PULMONARY: Shortness of breath, cough, wheezing. GI: [Negative.] : [Negative.] RHEUMATOLOGIC: [ Negative.] IMMUNOLOGIC: [ Negative.] ENDOCRINE: [Negative. ] DERMATOLOGIC: [Negative.] Past Medical History Past Medical History: Asthma, Cancer, COPD, Eye Disorder, Fibromyalgia, GERD/Reflux, Hearing Disorder / Deafness, Hypertension, Memory Impairment, Musculoskeletal Disorder, Neurologic Disorder, Osteoarthritis (OA), Pneumonia, Syncope Additional Past Medical History / Comment(s): MS relapsing/remitting type, chronic bilateral eye pain/optic neuritis/ poor vision, cataracts bilaterally, chronic occipital neuralgia, osteoporosis, RLS, chronic hypoxic respiratory failure with home oxygen 2L/[place] prn, chronic bronchitis, immunocompromised, elevated blood sugar with steroid use, uterine cancer with hysterectomy/radiati on, heart murmur, mild cognitive impairment, chronic vertigo, falls, rheumatic fever as child, tinnitis bilaterally, allergic rhinitis, trigeminal neuralgia. History of Any Multi-Drug Resistant Organisms: None Reported Past Surgical History: Bladder Surgery, Heart Catheterization, Hysterectomy, Tubal Ligation Additional Past Surgical History / Comment(s): Nerve blocks, bladder suspension, fibroid removal. PAIN CLINIC Past Anesthesia/Blood Transfusion Reactions: No Reported Reaction, Postoperative Nausea & Vomiting (PONV) Additional Past Anesthesia/Blood Transfusion Reaction / Comment(s): mild claustrophobia Past Psychological History: Anxiety, Depression Smoking Status: Current every day smoker - Past Family History Mother Family Medical History: CVA/TIA, Myocardial Infarction ([place]) Additional Family Medical History / Comment(s): Mother is alive at age 75 with history of brain aneurysm, 3 strokes and 2 myocardial infarctions. Brain aneurysms run on mother's side of family Father Additional Family Medical History / Comment(s): Father at age 72 from a cardiac arrest thought to be due to a myocardial infarction. Sister(s) Family Medical History: No Reported History Additional Family Medical History / Comment(s): Patient has 2 sisters with no major medical problems. Patient does not have any brothers. Patient has 2 adult children with no major medical problems. Patient is only family member with MS. Medications and Allergies Home Medications Medication Instructions Recorded Confirmed Type Aspirin 81 mg PO DAILY 02/20/14 03/27/21 History LORazepam [Ativan] 1 mg PO TID PRN 02/20/14 03/27/21 History Verapamil HCl [Calan] 120 mg PO DAILY 02/20/14 03/27/21 History Butalb/APAP/Caff 50-325-40Mg 1 tab PO Q8H PRN 03/25/17 03/27/21 History [Fioricet 50-325-40] rOPINIRole HCL [Requip] 0.25 mg PO TID #90 tab 01/31/18 03/27/21 Rx Budesonide/Formoterol Fumarate 2 puff INHALATION RT-BID 05/06/18 03/27/21 History [Symbicort 160-4.5 Mcg Inhaler] Cholecalciferol [Vitamin D3 (25 50 mcg PO DAILY 05/07/18 03/27/21 History Mcg = 1000 Iu)] Multivitamins, Thera [Multivitamin 1 tab PO DAILY 05/07/18 03/27/21 History (formulary)] PARoxetine [Paxil] 40 mg PO DAILY tab 05/09/18 03/27/21 Rx Pantoprazole Sodium [Protonix] 40 mg PO BID 10/31/18 03/27/21 History Ipratropium-Albuterol Nebulize 3 ml INHALATION RT-QID PRN 11/22/18 03/27/21 History [Duoneb 0.5 mg-3 mg/3 ml Soln] Memantine [Namenda] 10 mg PO BID 11/22/18 03/27/21 History Montelukast [Singulair] 10 mg PO DAILY 11/22/18 03/27/21 History hydroCHLOROthiazide [Hydrodiuril] 25 mg PO DAILY tab 11/26/18 03/27/21 Rx Fluticasone Nasal [place] [Flonase 2 spr EA NOSTRIL DAILY PRN 04/28/19 03/27/21 History Nasal [place]] Methocarbamol [Robaxin-750] 750 mg PO TID 04/28/19 03/27/21 History Folic Acid 1 mg PO DAILY #30 tab 05/02/19 03/27/21 Rx busPIRone HCl [Buspar] 10 mg PO TID #90 tab 05/02/19 03/27/21 Rx Albuterol Sulfate [Ventolin HFA] 1 - 2 puff INHALATION RT-QID PRN 08/09/19 03/27/21 History Ascorbic Acid [Vitamin C] 1,000 mg PO DAILY 01/30/20 03/27/21 History Docusate [Colace] 100 mg PO DAILY PRN 01/30/20 03/27/21 History Zinc Gluconate [Zinc] 25 mg PO DAILY 01/30/20 03/27/21 History Diclofenac Sodium Gel [Voltaren 2 gm TOPICAL QID PRN #0 03/26/20 03/27/21 History Gel] Elderberry Fruit and Flower [Black 1 cap PO DAILY 06/14/20 03/27/21 History Elderberry 575 mg Cap] Turmeric Root Extract [Turmeric] 500 mg PO DAILY 06/14/20 03/27/21 History Gabapentin 800 mg PO TID 08/21/20 03/27/21 History Topiramate [Topamax] 100 mg PO BID 08/21/20 03/27/21 History oxyCODONE-APAP 7.5-325MG [Percocet 1 tab PO TID 10/30/20 03/27/21 History 7.5-325 mg] acetaZOLAMIDE [Diamox [place]] 500 mg PO BID 03/27/21 03/27/21 History Allergies Allergy/AdvReac Type Severity Reaction Status Date / Time baclofen AdvReac URINARY Verified 03/27/21 08:30 ISSUES dexamethasone [From Decadron] AdvReac "THOMPSON Verified 03/27/21 08:30 SKIN"/DEHYDRATION Physical Exam Osteopathic Statement: *. No significant issues noted on an osteopathic structural exam other than those noted in the History and Physical/Consult. Vitals: Vital Signs Temp Pulse Resp BP Pulse Ox 03/27/21 08:57 102 H 20 126/71 96 03/27/21 08:22 107 H 22 122/85 94 L 03/27/21 08:10 103 H 03/27/21 07:51 96 03/27/21 06:12 24 03/27/21 05:40 99.3 F 113 H 24 113/79 99 Intake and Output 03/26/21 03/27/21 03/27/21 22:59 06:59 14:59 Other: Weight 107.955 kg Oriented 3. Mild conversational dyspnea. No use of accessory muscles. No audible wheezing. HEENT examination is grossly unremarkable. Neck supple. Full range of motion. No adenopathy thyromegaly or neck vein distention. Cardiovascular examination reveals regular rhythm rate. S1-S2 normal. No S3 or S4. No discernible murmur noted. Heart sounds are distant. Heart rate 102 bpm . Lungs reveal coarse bilateral expiratory rhonchi and expiratory wheezes. Breath sounds are equal bilaterally. Breath sounds are diminished throughout. No crackles. Abdomen soft bowel sounds are heard. No masses or tenderness. Extremities are intact. No cyanosis or clubbing. Mild lower extremity edema. Skin is without rash or lesion. Neurologic examination is brief but nonfocal. Results - Laboratory Findings CBC and BMP: 03/27/21 05:57 03/27/21 05:57 PT/INR, D-dimer PT 10.0 sec (9.0-12.0) 03/27/21 05:57 INR 0.9 (<1.2) 03/27/21 05:57 Abnormal lab findings: Abnormal Labs 03/27/21 03/27/21 03/27/21 05:57 05:57 05:57 WBC 13.8 H MCV 103.4 H MCHC 30.3 L Neutrophils # 11.5 H APTT 20.9 L Glucose 131 H C-Reactive Protein 5.7 H Total Protein 6.1 L Procalcitonin 03/27/21 05:57 WBC MCV MCHC Neutrophils # APTT Glucose C-Reactive Protein Total Protein Procalcitonin 0.12 H - Diagnostic Findings Chest x-ray: image reviewed Assessment and Plan Assessment: Acute exacerbation of COPD. Ongoing tobacco use with nicotine addiction. History of relapsing multiple sclerosis. History of fibromyalgia. History of gastroesophageal reflux disease. History of hypertension. Prior history of pneumonia. History of optic neuritis, secondary to MS. History of osteoporosis. History of restless leg syndrome. History of uterine cancer, status post hysterectomy and subsequent radiation. Multiple other medical problems and comorbidities. Plan: Plan dated 03/27/2021. The patient is given albuterol sulfate and ipratropium bromide updraft treatments, 4 times a day and when necessary. We also recommend budesonide, 1 mg, mixed with 20 g of formoterol, twice a day. In addition, we recommended Solu-Medrol every 6 hours, and Augmentin 875 mg twice a day. We will continue to follow make recommendations where appropriate. Prognosis is guarded. The patient is counseled about the importance of smoking cessation. Time with Patient: Greater than 30
[2021-03-27] MEDS: IPRATROPIUM-ALBUTEROL 3 ML NEB INHALATION SCH ×4 (11:26→21:46)
[2021-03-27] MEDS: BUDESONIDE 1 MG/2 ML NEBU INHALATION SCH ×2 (11:26→21:46)
[2021-03-27] MEDS: FORMOTEROL FUMARATE 20 MCG/2 ML NEBU INHALATION SCH ×2 (11:26→21:46)
[2021-03-27] MEDS: oxyCODONE-APAP 7.5-325MG 1 EACH TAB PO SCH ×2 (15:09→21:02)
[2021-03-27] MEDS: GABAPENTIN 400 MG CAP PO SCH ×2 (15:09→21:02)
[2021-03-27] MEDS: PANTOPRAZOLE 40 MG TABLET PO SCH (15:10)
[2021-03-27] MEDS: busPIRone HCl 10 MG TAB PO SCH ×2 (15:10→23:21)
[2021-03-27] MEDS ORDERED: VERAPAMIL 40 MG TAB PO STA (15:24)
[2021-03-27] MEDS: methocarbamoL 750 MG TAB PO SCH ×2 (15:35→23:21)
--- NOTE | 2021-03-27 16:29 | P.HPIM ---
History of Present Illness H&P Date: 03/27/21 History of present illness This is a 55 year old female patient of Dr. Tabares and Dr. Ramirez with a past medical history of relapsing remitting multiple sclerosis, hypertension and hypertensive cardiovascular disease with left ventricular hypertrophy, history of GERD, multiple sclerosis, COPD, asthma, history of osteoporosis, uterine cancer status post surgery, chronic hypoxic respiratory failure on home O2 at 2 L nasal cannula, daily tobacco use, history of pseudotumor cerebri needing lumbar puncture in August 2020. She has had multiple admissions for acute exacerbation of her multiple sclerosis. Patient comes in with upper respiratory symptoms associated with shortness of breath for the past 1 day. She is also complaining of fever and chills body aches associated with cough and wheezing. Patient was noted to be hypoxic in the 84th on room air and was placed on 6 L of oxygen. Labs are reviewed patient has leukocytosis 0.8, hemoglobin 13.3 INR 0.9 sodium 138 potassium 3.5 BUN 8 creatinine 0.67 ferritin 249 meclizine 1.6 and liver enzymes are normal LDH was normal CRP is elevated at 5.7 proBNP 168. Pro- calcitonin 0.12, COVID negative. Chest x-ray suggestive of mild increase in interstitial densities. Imaging were limited due to patient's body habitus and portable settings. ROS Constitutional: endorses chills, fever, lethargic, headache Eyes: denies decreased vision, denies diplopia, denies discharge, denies pain Ears: deny: decreased hearing Ears, nose, mouth and throat: Denies dental pain, Denies headache, Denies nasal discharge, Denies nose pain Cardiovascular: Denies chest pain, Denies decreased exercise tolerance, Denies edema, Denies high blood pressure, Denies irregular heart beat, Denies palpitations, Denies paroxysmal nocturnal dyspnea, Denies rapid heart beat, Denies shortness of breath Resp Endorses cough and congestion endorses cough with sputum, Denies dyspnea, Denies home oxygen, Denies wheezing Gastrointestinal: Denies abdominal pain, Denies change in bowel habits, Denies coffee ground emesis, Denies early satiety, Denies excessive gas, Denies heartburn, Denies hematemesis, Denies hematochezia, Denies loss of appetite, Denies nausea, Denies vomiting Genitourinary: Denies dysuria, Denies flank pain, Denies kidney stones, Denies menorrhagia, Denies urgency, Denies urinary frequency Musculoskeletal: Denies gait dysfunction, Denies limitation of motion, Denies morning stiffness, Denies muscle cramps Integumentary: Denies rash, Denies wounds, Denies brittle nails, Denies change in hair/nails, Denies darkening of skin Neurological: Denies balance difficulties, Denies change in speech, Denies double vision, Denies gait dysfunction, Denies loss of vision, Denies motor disturbance, Denies numbness, Denies paralysis, Denies paresthesias, Denies seizures Psychiatric: Denies anxiety, Denies depression Endocrine: Denies excessive sweating, Denies excessive thirst, Denies high blood sugars, Denies palpitations Hematologic/Lymphatic: Denies easy bruising, Denies lymphadenopathy Social history Patient started smoking at age 18 and has smoked on and off since then. She is currently smoking 1 pack per day. No illicit drug use. No alcohol use. Family history Mother is alive at age 74 with history of brain aneurysm, 3 strokes and 2 myocardial infarctions. Brain aneurysms run on mother's side of family. Father at age 72 from a cardiac arrest thought to be due to a myocardial infarction. Patient has 2 sisters with no major medical problems. Patient does not have any brothers. Patient has 2 adult children with no major medical problems. Patient is only family member with MS. Physical exam - Constitutional General appearance: cooperative, no acute distress, obese no use of system muscles - EENT Eyes: anicteric sclerae, PERRLA, normal appearance ENT: hearing grossly normal - Neck Neck: no lymphadenopathy, normal ROM, no other, no rigidity, no stridor, no thyromegaly - Respiratory Respiratory: expiratory wheezes noted bilaterally in the posterior lobes. Cardiovascular Rhythm: regular Heart sounds: normal: S1, S2 Abnormal Heart Sounds: no systolic murmur, no diastolic murmur, no rub, no S3 Gallop, no S4 Gallop, no click, no other - Gastrointestinal General gastrointestinal: normal bowel sounds, soft - Integumentary Integumentary: no rash - Neurologic NeuNo gross motor deficit, generalized weakness bilateral lower extremities Musculoskeletal Musculoskeletal: gaitnot assessed strength equal bilaterally slightly decreased in bilateral lower extremity - Psychiatric Psychiatric: A&O x's 3, appropriate affect Assessment and plan 1.acute hypoxic respiratory failure secondary to COPD exacerbation with history of asthma continue DuoNeb as needed for shortness of breath 4 times a day. Bu desonide added by pulmonary twice a day with for [place] twice a day. Continue Solu-Medrol at 60 IV every 6 hours. Augmentin 875 mg twice daily. Sputum culture. Mucinex twice daily. #2 acute on chronic headache with history of pseudo-tumor cerebri. Fioricet increased to 1 tab every 4 hours. Lumbar puncture performed previously in August 2020. Continue Diamox 500 mg by mouth twice daily 3.tobacco abuse. Patient counseled on tobacco cessation and increased risk of CAD, CVA and malignancy. Nicotine patch ordered 4.history of relapsing remitting MS not in acute exacerbation we will continue to follow patient's symptoms on daily basis if worsens will have him neurology consulted #5 chronic pain and occipital neurology under the care of Dr. James madrid gabapentin 803 times a day Percocet 7.53 times a day 6.hypertension and hypertensive cardiovascular disease continue hydrochlorot hiazide 25 mg by mouth daily, verapamil 120 mg by mouth daily 7.fibromyalgia continue gabapentin 800 mg 3 times a day 8.generalized anxiety disorder continue Ativan 1 mg every 8 hours with BuSpar 10 mg 3 times a day 9.obesity with possible obstructive sleep apnea and obesity hypoventilation synd frieda currently stable 10.recurrent depression continue Paxil 40 mg by mouth daily 11.mild cognitive impairment on Namenda 10 mg twice daily 12. Restless leg syndrome continue Requip 0.25 mg twice daily 13.DVT prophylaxis heparin subcu 14.GERD and GI prophylaxis continue Protonix 40 mg oral twice daily 15.Code status full code 16 disposition patient needed To 2 Inpatient Nights for stabilization Past Medical History Past Medical History: Asthma, Cancer, COPD, Eye Disorder, Fibromyalgia, GERD/Reflux, Hearing Disorder / Deafness, Hypertension, Memory Impairment, Musculoskeletal Disorder, Neurologic Disorder, Osteoarthritis (OA), Pneumonia, Syncope Additional Past Medical History / Comment(s): MS relapsing/remitting type, chronic bilateral eye pain/optic neuritis/ poor vision, cataracts bilaterally, chronic occipital neuralgia, osteoporosis, RLS, chronic hypoxic respiratory failure with home oxygen 2L/NC prn, chronic bronchitis, immunocompromised, elevated blood sugar with steroid use, uterine cancer with hyster ectomy/radiation, heart murmur, mild cognitive impairment, chronic vertigo, falls, rheumatic fever as child, tinnitis bilaterally, allergic rhinitis, trigeminal neuralgia. History of Any Multi-Drug Resistant Organisms: None Reported Past Surgical History: Bladder Surgery, Heart Catheterization, Hysterectomy, Tubal Ligation Additional Past Surgical History / Comment(s): Nerve blocks, bladder suspension, fibroid removal. PAIN CL[facility]IC Past Anesthesia/Blood Transfusion Reactions: No Reported Reaction, Postoperative Nausea & Vomiting (PONV) Additional Past Anesthesia/Blood Transfusion Reaction / Comment(s): mild claustrophobia Past Psychological History: Anxiety, Depression Smoking Status: Current every day smoker - Past Family History Mother Family Medical History: CVA/TIA, Myocardial Infarction ([place]) Additional Family Medical History / Comment(s): Mother is alive at age 75 with history of brain aneurysm, 3 strokes and 2 myocardial infarctions. Brain aneurysms run on mother's side of family Father Additional Family Medical History / Comment(s): Father at age 72 from a cardiac arrest thought to be due to a myocardial infarction. Sister(s) Family Medical History: No Reported History Additional Family Medical History / Comment(s): Patient has 2 sisters with no major medical problems. Patient does not have any brothers. Patient has 2 cherise lt children with no major medical problems. Patient is only family member with MS. Medications and Allergies Home Medications Medication Instructions Recorded Confirmed Type Aspirin 81 mg PO DAILY 02/20/14 03/27/21 History LORazepam [Ativan] 1 mg PO TID PRN 02/20/14 03/27/21 History Verapamil HCl [Calan] 120 mg PO DAILY 02/20/14 03/27/21 History Butalb/APAP/Caff 50-325-40Mg 1 tab PO Q8H PRN 03/25/17 03/27/21 History [Fioricet 50-325-40] rOPINIRole HCL [Requip] 0.25 mg PO TID #90 tab 01/31/18 03/27/21 Rx Budesonide/Formoterol Fumarate 2 puff INHALATION RT-BID 05/06/18 03/27/21 History [Symbicort 160-4.5 Mcg Inhaler] Cholecalciferol [Vitamin D3 (25 50 mcg PO DAILY 05/07/18 03/27/21 History Mcg = 1000 Iu)] Multivitamins, Thera [Multivitamin 1 tab PO DAILY 05/07/18 03/27/21 History (formulary)] PARoxetine [Paxil] 40 mg PO DAILY tab 05/09/18 03/27/21 Rx Pantoprazole Sodium [Protonix] 40 mg PO BID 10/31/18 03/27/21 History Ipratropium-Albuterol Nebulize 3 ml INHALATION RT-QID PRN 11/22/18 03/27/21 History [Duoneb 0.5 mg-3 mg/3 ml Soln] Memantine [Namenda] 10 mg PO BID 11/22/18 03/27/21 History Montelukast [Singulair] 10 mg PO DAILY 11/22/18 03/27/21 History hydroCHLOROthiazide [Hydrodiuril] 25 mg PO DAILY tab 11/26/18 03/27/21 Rx Fluticasone Nasal [place] [Flonase 2 spr EA NOSTRIL DAILY PRN 04/28/19 03/27/21 History Nasal [place]] Methocarbamol [Robaxin-750] 750 mg PO TID 04/28/19 03/27/21 History Folic Acid 1 mg PO DAILY #30 tab 05/02/19 03/27/21 Rx busPIRone HCl [Buspar] 10 mg PO TID #90 tab 05/02/19 03/27/21 Rx Albuterol Sulfate [Ventolin HFA] 1 - 2 puff INHALATION RT-QID PRN 08/09/19 03/27/21 History Ascorbic Acid [Vitamin C] 1,000 mg PO DAILY 01/30/20 03/27/21 History Docusate [Colace] 100 mg PO DAILY PRN 01/30/20 03/27/21 History Zinc Gluconate [Zinc] 25 mg PO DAILY 01/30/20 03/27/21 History Diclofenac Sodium Gel [Voltaren 2 gm TOPICAL QID PRN #0 03/26/20 03/27/21 History Gel] Elderberry Fruit and Flower [Black 1 cap PO DAILY 06/14/20 03/27/21 History Elderberry 575 mg Cap] Turmeric Root Extract [Turmeric] 500 mg PO DAILY 06/14/20 03/27/21 History Gabapentin 800 mg PO TID 08/21/20 03/27/21 History Topiramate [Topamax] 100 mg PO BID 08/21/20 03/27/21 History oxyCODONE-APAP 7.5-325MG [Percocet 1 tab PO TID 10/30/20 03/27/21 History 7.5-325 mg] acetaZOLAMIDE [Diamox Sequels] 500 mg PO BID 03/27/21 03/27/21 History Allergies Allergy/AdvReac Type Severity Reaction Status Date / Time baclofen AdvReac URINARY Verified 03/27/21 08:30 ISSUES dexamethasone [From Decadron] AdvReac "THOMPSON Verified 03/27/21 08:30 SKIN"/DEHYDRATION Physical Exam Vitals: Vital Signs Temp Pulse Resp BP Pulse Ox 03/27/21 06:12 24 03/27/21 05:40 99.3 F 113 H 24 113/79 99 Intake and Output 03/26/21 03/27/21 03/27/21 22:59 06:59 14:59 Other: Weight 107.955 kg Results CBC & Chem 7: 03/27/21 05:57 03/27/21 05:57 Labs: Abnormal Lab Results - Last 24 Hours (Table) 03/27/21 03/27/21 03/27/21 Range/Units 05:57 05:57 05:57 WBC 13.8 H (3.8-10.6) k/uL MCV 103.4 H (80.0-100.0) fL MCHC 30.3 L (31.0-37.0) g/dL Neutrophils # 11.5 H (1.3-7.7) k/uL APTT 20.9 L (22.0-30.0) sec Glucose 131 H (74-99) mg/dL Total Protein 6.1 L (6.3-8.2) g/dL
[2021-03-27] MEDS: NICOTINE 14MG/24HR PATCH TRANSDERM SCH (17:16)
[2021-03-27] MEDS: HEPARIN SODIUM,PORCINE/PF 5,000 UNIT/0.5 ML SYRINGE SQ SCH (21:01)
[2021-03-27] MEDS: MELATONIN 5 MG TABLET PO SCH (21:02)
[2021-03-27] MEDS: acetaZOLAMIDE 250 MG TAB PO SCH (22:35)
[2021-03-27] MEDS: MEMANTINE 10 MG TAB PO SCH (22:35)
[2021-03-27] MEDS: TOPIRAMATE 100 MG TAB PO SCH (22:36)
[2021-03-28] MEDS: methylPREDNISolone SOD SUCCI 125 MG/2 ML VIAL IV SCH ×4 (02:41→21:12)
[2021-03-28] MEDS: IPRATROPIUM-ALBUTEROL 3 ML NEB INHALATION PRN ×2 (02:46→23:30)
[2021-03-28] MEDS: LORazepam 1 MG TAB PO PRN ×3 (02:59→21:27)
[2021-03-28] MEDS: NYSTATIN 100,000 UNIT/ML SUSP 500,000 UNIT/5 ML CUP PO SCH ×5 (04:36→21:29)
[2021-03-28] MEDS: BUDESONIDE 1 MG/2 ML NEBU INHALATION SCH ×2 (08:17→19:20)
[2021-03-28] MEDS: FORMOTEROL FUMARATE 20 MCG/2 ML NEBU INHALATION SCH ×2 (08:17→19:20)
[2021-03-28] MEDS: IPRATROPIUM-ALBUTEROL 3 ML NEB INHALATION SCH ×4 (08:17→19:20)
[2021-03-28] MEDS: MONTELUKAST 10 MG TAB PO SCH (09:07)
[2021-03-28] MEDS: ASPIRIN 81 MG PO SCH (09:07)
[2021-03-28] MEDS: MULTIVITAMINS, THERA 1 EACH TAB PO SCH (09:07)
[2021-03-28] MEDS: PARoxetine 20 MG TAB PO SCH (09:07)
[2021-03-28] MEDS: TOPIRAMATE 100 MG TAB PO SCH ×2 (09:07→21:11)
[2021-03-28] MEDS: MEMANTINE 10 MG TAB PO SCH ×2 (09:07→21:11)
[2021-03-28] MEDS: ASCORBIC ACID 500 MG TAB PO SCH ×2 (09:07→21:11)
[2021-03-28] MEDS: busPIRone HCl 10 MG TAB PO SCH ×3 (09:07→21:10)
[2021-03-28] MEDS: GABAPENTIN 400 MG CAP PO SCH ×3 (09:07→21:11)
[2021-03-28] MEDS: PANTOPRAZOLE 40 MG TABLET PO SCH ×2 (09:07→16:33)
[2021-03-28] MEDS: CHOLECALCIFEROL 25 MCG (1000 IU) TABLET PO SCH (09:08)
[2021-03-28] MEDS: hydroCHLOROthiazide 25 MG TAB PO SCH (09:08)
[2021-03-28] MEDS: FOLIC ACID 1 MG TAB PO SCH (09:08)
[2021-03-28] MEDS: acetaZOLAMIDE 250 MG TAB PO SCH ×2 (09:08→21:10)
[2021-03-28] MEDS: AMOXIC-POT CLAV 875-125MG 1 EACH TAB PO SCH ×2 (09:09→21:12)
[2021-03-28] MEDS: methocarbamoL 750 MG TAB PO SCH ×3 (09:09→21:12)
[2021-03-28] MEDS: NICOTINE 14MG/24HR PATCH TRANSDERM SCH (09:09)
[2021-03-28] MEDS: HEPARIN SODIUM,PORCINE/PF 5,000 UNIT/0.5 ML SYRINGE SQ SCH ×2 (09:09→21:09)
[2021-03-28] MEDS: oxyCODONE-APAP 7.5-325MG 1 EACH TAB PO SCH ×3 (09:10→21:12)
[2021-03-28 11:27] LABS: Glucose,Whole Blood 209 mg/dL (75-99)
[2021-03-28] MEDS: BUTALB/APAP/CAFF 50-325-40MG TAB PO PRN ×3 (11:59→21:10)
[2021-03-28] MEDS: SUCRALFATE 1 GM TAB PO SCH ×3 (11:59→21:10)
[2021-03-28] MEDS: VERAPAMIL 40 MG TAB PO SCH (11:59)
[2021-03-28] MEDS: INSULIN ASPART (NovoLOG) 100 UNIT/ML VIAL SQ SCH ×3 (12:00→21:10)
[2021-03-28] MEDS: MAG HYDROX/AL HYDROX/SIMETH 30 ML, diphenhydrAMINE ELIXIR 75 MG, LIDOCAINE VISCOUS 30 ML PO SCH ×9 (12:02→21:12)
--- NOTE | 2021-03-28 15:48 | P.PN ---
Subjective Progress Note Date: 03/28/21 Principal diagnosis: Shortness of breath secondary to COPD exacerbation. Pulmonary consultation dated 03/27/2021. 55-year-old black female, seen in the emergency department. She was in room 19. She was brought in by EMS with severe shortness of breath. The patient apparently not been feeling well for about a day or so prior to admission. In addition, she was complaining of fever, body aches, cough, and wheezing. She does have a well-established history of underlying COPD. She sees one of my partners in the office. Apparently upon arrival, EMS discovered the patient have a saturation of 84% on room air. She was placed on nasal cannula at 6 L. Currently, she is getting a breathing treatment in the emergency department. He room 19. She's on 4 L nasal cannula. White count 13.8, hemoglobin 13.3, hematocrit 44.1, platelet count 200,000. PT 10, INR 0.9, PTT 20.9. Sodium potassium chloride CO2 all normal. Anion gap 7, BUN 8, creatinine 0.67. The patient's swab for coronavirus, was negative. Pro-calcitonin level was 0.12. N-terminal proBNP was 168. Chest x-ray was positive for cardiomegaly, and some mild interstitial changes. Progress note dated 03/28/2021. The patient is seen in room 462. We saw her in consultation yesterday, down in the emergency department. Currently, she is on 2 L nasal cannula. She's not receiving any IV fluids. The patient states that she's feeling a bit better today, but certainly not back to baseline. She still feeling short of breath, coughing, wheezing, chest congestion. Yesterday, she was on 4 L. There is no audible wheezing. The patient doesn't have any conversational dyspnea, or use of accessory muscles. No new laboratory data today. Chest x-ray from yesterday was already reviewed. Medications were adjusted accordingly. Objective - Vital Signs Vital signs: Vital Signs Temp 98.5 F 03/28/21 14:00 Pulse 96 03/28/21 15:39 Resp 17 03/28/21 14:00 BP 113/73 03/28/21 14:00 Pulse Ox 96 03/28/21 14:00 Intake & Output 03/27/21 03/28/21 03/28/21 18:59 06:59 18:59 Weight 107.955 kg Other: Voiding Method Toilet Toilet # Voids 2 - Exam Oriented 3. Mild conversational dyspnea. No use of accessory muscles. No audible wheezing. Saturations are 96% on 2 L. HEENT examination is grossly unremarkable. Neck supple. Full range of motion. No adenopathy thyromegaly or neck vein distention. Cardiovascular examination reveals regular rhythm rate. S1-S2 normal. No S3 or S4. No discernible murmur noted. Heart sounds are distant. Heart rate 96 bpm. Lungs reveal coarse bilateral expiratory rhonchi and expiratory wheezes. Breath sounds are equal bilaterally. Breath sounds are diminished throughout. No crackles. Breath sounds are improved from yesterday. Abdomen soft bowel sounds are heard. No masses or tenderness. Extremities are intact. No cyanosis or clubbing. Mild lower extremity edema. Skin is without rash or lesion. Neurologic examination is brief but nonfocal. - Labs CBC & Chem 7: 03/27/21 05:57 03/27/21 05:57 Labs: Abnormal Lab Results - Last 24 Hours (Table) 03/28/21 Range/Units 11:26 POC Glucose (mg/dL) 209 H (75-99) mg/dL Microbiology - Last 24 Hours (Table) 03/28/21 03:04 Sputum Culture - Preliminary Sputum 03/27/21 05:57 Blood Culture - Preliminary Blood No Growth after 24 hours 03/27/21 05:57 Blood Culture - Preliminary Blood No Growth after 24 hours Assessment and Plan Assessment: Acute exacerbation of COPD. Ongoing tobacco use with nicotine addiction. History of relapsing multiple sclerosis. History of fibromyalgia. History of gastroesophageal reflux disease. History of hypertension. Prior history of pneumonia. History of optic neuritis, secondary to MS. History of osteoporosis. History of restless leg syndrome. History of uterine cancer, status post hysterectomy and subsequent radiation. Multiple other medical problems and comorbidities. Plan: Plan dated 03/27/2021. The patient is given albuterol sulfate and ipratropium bromide updraft treatments, 4 times a day and when necessary. We also recommend budesonide, 1 mg, mixed with 20 g of formoterol, twice a day. In addition, we recommended Solu-Medrol every 6 hours, and Augmentin 875 mg twice a day. We will continue to follow make recommendations where appropriate. Prognosis is guarded. The patient is counseled about the importance of smoking cessation. Plan dated 03/28/2021. The patient is down to 2 L. We made sure the patient was on appropriate medications including DuoNeb, Pulmicort, formoterol, Solu-Medrol, and Augmentin. The patient is coughing up some discolored phlegm. She feels much improved. She's currently not back to baseline. She still having chest tightness, as well as shortness breath, wheezing, and cough. No fever or chills. No chest pain per se. We will continue to follow make recommendations where appropriate. Time with Patient: Less than 30
[2021-03-28 16:53] LABS: Glucose,Whole Blood 184 mg/dL (75-99)
[2021-03-28 19:57] LABS: Glucose,Whole Blood 201 mg/dL (75-99)
[2021-03-28] MEDS: MELATONIN 5 MG TABLET PO SCH (21:11)
--- NOTE | 2021-03-28 21:16 | P.PN ---
Subjective Progress Note Date: 03/28/21 History of present illness This is a 55 year old female patient of Dr. Tabares and Dr. Ramirez with a past med ical history of relapsing remitting multiple sclerosis, hypertension and hypertensive cardiovascular disease with left ventricular hypertrophy, history of GERD, multiple sclerosis, COPD, asthma, history of osteoporosis, uterine cancer status post surgery, chronic hypoxic respiratory failure on home O2 at 2 L nasal cannula, daily tobacco use, history of pseudotumor cerebri needing lumbar puncture in August 2020. She has had multiple admissions for acute exacerbation of her multiple sclerosis. Patient comes in with upper respiratory symptoms associated with shortness of breath for the past 1 day. She is also complaining of fever and chills body aches associated with cough and wheezing. Patient was noted to be hypoxic in the 84th on room air and was placed on 6 L of oxygen. Labs are reviewed patient has leukocytosis 0.8, hemoglobin 13.3 INR 0.9 sodium 138 potassium 3.5 BUN 8 creatinine 0.67 ferritin 249 meclizine 1.6 and liver enzymes are normal LDH was normal CRP is elevated at 5.7 proBNP 168. Pro- calcitonin 0.12, COVID negative. Chest x-ray suggestive of mild increase in interstitial densities. Imaging were limited due to patient's body habitus and portable settings. Patient examined sitting up in bed, appears to be comfortable, not using assessory muscles. Patient complains of sore spots in throat and closing of throat when she lies down. Patient aslo has significant abd apin with burning. She does prilosec but has no i mprovment. patient also noted to have elvated blood sugar since yesterdya. repeat hba1c and insulinsliding scale ordered. carafate added at 1 gm achs to help with abd pain. Nystatin added for 7 days to help with thrush. Patient is otherwise stable on current dose of steroids and augmentin. ROS Constitutional: endorses chills, fever, lethargic, headache Eyes: denies decreased vision, denies diplopia, denies discharge, denies pain Ears: deny: decreased hearing Ears, nose, mouth and throat: Denies dental pain, Denies headache, Denies nasal discharge, Denies nose pain, endorses throat pain as mentioned in HPI Cardiovascular: Denies chest pain, Denies decreased exercise tolerance, Denies edema, Denies high blood pressure, Denies irregular heart beat, Denies palpitations, Denies paroxysmal nocturnal dyspnea, Denies rapid heart beat, Denies shortness of breath Resp Endorses cough and congestion endorses cough with sputum, Denies dyspnea, Denies home oxygen, Denies wheezing Gastrointestinal: endorsess abdominal pain, Denies change in bowel habits, Denies coffee ground emesis, Denies early satiety, Denies excessive gas, Denies heartburn, Denies hematemesis, Denies hematochezia, Denies loss of appetite, Denies nausea, Denies vomiting Genitourinary: Denies dysuria, Denies flank pain, Denies kidney stones, Denies menorrhagia, Denies urgency, Denies urinary frequency Musculoskeletal: Denies gait dysfunction, Denies limitation of motion, Denies morning stiffness, Denies muscle cramps Integumentary: Denies rash, Denies wounds, Denies brittle nails, Denies change in hair/nails, Denies darkening of skin Neurological: Denies balance difficulties, Denies change in speech, Denies double vision, Denies gait dysfunction, Denies loss of vision, Denies motor disturbance, Denies numbness, Denies paralysis, Denies paresthesias, Denies seizures Psychiatric: Denies anxiety, Denies depression Endocrine: Denies excessive sweating, Denies excessive thirst, Denies high blood sugars, Denies palpitations Hematologic/Lymphatic: Denies easy bruising, Denies lymphadenopathy Physical exam - Constitutional General appearance: cooperative, no acute distress, obese no use of system muscles - EENT Eyes: anicteric sclerae, PERRLA, normal appearance, white spots at the back of the throat ENT: hearing grossly normal - Neck Neck: no lymphadenopathy, normal ROM, no other, no rigidity, no stridor, no thyromegaly - Respiratory Respiratory: expiratory wheezes noted bilaterally in the posterior lobes, improved since yesterday. Cardiovascular Rhythm: regular Heart sounds: normal: S1, S2 Abnormal Heart Sounds: no systolic murmur, no diastolic murmur, no rub, no S3 Gallop, no S4 Gallop, no click, no other - Gastrointestinal General gastrointestinal: normal bowel sounds, soft - Integumentary Integumentary: no rash - Neurologic NeuNo gross motor deficit, generalized weakness bilateral lower extremities Musculoskeletal Musculoskeletal: gaitnot assessed strength equal bilaterally slightly decreased in bilateral lower extremity - Psychiatric Psychiatric: A&O x's 3, appropriate affect Assessment and plan acute hypoxic respiratory failure secondary to COPD exacerbation with history of asthma continue DuoNeb as needed for shortness of breath 4 times a day. Budesonide added by pulmonary twice a day with for [place] twice a day. Continue Solu-Medrol at 60 IV every 6 hours. Augmentin 875 mg twice daily. Sputum culture. Mucinex twice daily. Uncontrolled hyperglycemia steroid induced, prediabetes in the past. A1c ordered, sliding scale ordered Acute abd pain with h/o GERD, likley sec to steroid. continue prilosec 40 mg po bID . carafate added at 1 gm achs thrush - nystatin swish and swallow qid X 7 days acute on chronic headache with history of pseudo-tumor cerebri. Fioricet increased to 1 tab every 4 hours. Lumbar puncture performed previously in August 2020. Continue Diamox 500 mg by mouth twice daily tobacco abuse. Patient counseled on tobacco cessation and increased risk of CAD, CVA and malignancy. Nicotine patch ordered .history of relapsing remitting MS not in acute exacerbation we will continue to follow patient's symptoms on daily basis if worsens will have him neurology co nsulted chronic pain and occipital neurology under the care of Dr. James madrid gabapentin 803 times a day Percocet 7.53 times a day hypertension and hypertensive cardiovascular disease continue hy drochlorothiazide 25 mg by mouth daily, verapamil 120 mg by mouth daily fibromyalgia continue gabapentin 800 mg 3 times a day generalized anxiety disorder continue Ativan 1 mg every 8 hours with BuSpar 10 mg 3 times a day obesity with possible obstructive sleep apnea and obesity hypoventilation syndrome currently stable recurrent depression continue Paxil 40 mg by mouth daily mild cognitive impairment on Namenda 10 mg twice daily Restless leg syndrome continue Requip 0.25 mg twice daily DVT prophylaxis heparin subcu GERD and GI prophylaxis continue Protonix 40 mg oral twice daily Code status full code disposition patient needed To 2 Inpatient Nights for stabilization Objective - Vital Signs Vital signs: Vital Signs Temp 98.1 F 03/28/21 06:25 Pulse 92 03/28/21 06:25 Resp 17 03/28/21 06:25 BP 109/74 03/28/21 06:25 Pulse Ox 90 L 03/28/21 06:25 Intake & Output 1103/28/21 03/28/21 18:59 06:59 18:59 Weight 107.955 kg Other: Voiding Method Toilet # Voids 2 - Labs CBC & Chem 7: 03/27/21 05:57 03/27/21 05:57 Labs: Abnormal Lab Results - Last 24 Hours (Table) 03/27/21 03/27/21 Range/Units 05:57 05:57 C-Reactive Protein 5.7 H (<1.0) mg/dL Procalcitonin 0.12 H (0.02-0.09) ng/mL
[2021-03-29] MEDS: methylPREDNISolone SOD SUCCI 125 MG/2 ML VIAL IV SCH ×2 (01:57→09:23)
[2021-03-29] MEDS: BUTALB/APAP/CAFF 50-325-40MG TAB PO PRN ×3 (04:14→23:02)
[2021-03-29] MEDS: LORazepam 1 MG TAB PO PRN ×3 (04:14→22:35)
[2021-03-29] MEDS: FORMOTEROL FUMARATE 20 MCG/2 ML NEBU INHALATION SCH ×2 (07:24→20:39)
[2021-03-29] MEDS: BUDESONIDE 1 MG/2 ML NEBU INHALATION SCH ×2 (07:24→20:39)
[2021-03-29] MEDS: IPRATROPIUM-ALBUTEROL 3 ML NEB INHALATION SCH ×4 (07:24→20:39)
[2021-03-29 07:28] LABS: Glucose,Whole Blood 187 mg/dL (75-99)
[2021-03-29] MEDS: INSULIN ASPART (NovoLOG) 100 UNIT/ML VIAL SQ SCH ×4 (08:42→22:33)
[2021-03-29] MEDS: methocarbamoL 750 MG TAB PO SCH ×3 (08:42→22:41)
[2021-03-29] MEDS: AMOXIC-POT CLAV 875-125MG 1 EACH TAB PO SCH ×2 (08:42→22:37)
[2021-03-29] MEDS: NICOTINE 14MG/24HR PATCH TRANSDERM SCH (08:42)
[2021-03-29] MEDS: acetaZOLAMIDE 250 MG TAB PO SCH ×2 (08:42→22:34)
[2021-03-29] MEDS: HEPARIN SODIUM,PORCINE/PF 5,000 UNIT/0.5 ML SYRINGE SQ SCH ×2 (08:42→22:32)
[2021-03-29] MEDS: NYSTATIN 100,000 UNIT/ML SUSP 500,000 UNIT/5 ML CUP PO SCH ×4 (08:43→22:34)
[2021-03-29] MEDS: VERAPAMIL 40 MG TAB PO SCH (08:43)
[2021-03-29] MEDS: MAG HYDROX/AL HYDROX/SIMETH 30 ML, diphenhydrAMINE ELIXIR 75 MG, LIDOCAINE VISCOUS 30 ML PO SCH ×9 (08:43→22:33)
[2021-03-29] MEDS: oxyCODONE-APAP 7.5-325MG 1 EACH TAB PO SCH ×3 (08:44→22:35)
[2021-03-29] MEDS: CHOLECALCIFEROL 25 MCG (1000 IU) TABLET PO SCH (08:44)
[2021-03-29] MEDS: PARoxetine 20 MG TAB PO SCH (08:44)
[2021-03-29] MEDS: hydroCHLOROthiazide 25 MG TAB PO SCH (08:45)
[2021-03-29] MEDS: FOLIC ACID 1 MG TAB PO SCH (08:45)
[2021-03-29] MEDS: MEMANTINE 10 MG TAB PO SCH ×2 (08:45→22:34)
[2021-03-29] MEDS: GABAPENTIN 400 MG CAP PO SCH ×3 (08:46→22:33)
[2021-03-29] MEDS: SUCRALFATE 1 GM TAB PO SCH ×4 (08:46→22:35)
[2021-03-29] MEDS: ASCORBIC ACID 500 MG TAB PO SCH ×2 (08:47→22:35)
[2021-03-29] MEDS: MULTIVITAMINS, THERA 1 EACH TAB PO SCH (08:47)
[2021-03-29] MEDS: PANTOPRAZOLE 40 MG TABLET PO SCH ×2 (08:47→17:46)
[2021-03-29] MEDS: TOPIRAMATE 100 MG TAB PO SCH ×2 (08:47→22:35)
[2021-03-29] MEDS: ASPIRIN 81 MG PO SCH (08:47)
[2021-03-29] MEDS: MONTELUKAST 10 MG TAB PO SCH (08:48)
[2021-03-29] MEDS: busPIRone HCl 10 MG TAB PO SCH ×3 (08:48→22:35)
[2021-03-29 09:47] LABS: AST 35 U/L (14-36); African American GFR (CKD) >90 (>60 ml/min/1.73 sqM); Albumin 3.7 g/dL (3.5-5.0); Albumin/Globulin Ratio 1.5; Blood Urea Nitrogen 12 mg/dL (7-17); Carbon Dioxide 26 mmol/L (22-30); Chloride 108 mmol/L (98-107); Globulin 2.5 g/dL; Glucose 173 mg/dL (74-99); Non-African American GFR(CKD) >90 (>60 ml/min/1.73 sqM); Total Bilirubin 0.4 mg/dL (0.2-1.3); Total Protein 6.2 g/dL (6.3-8.2)
[2021-03-29 09:52] LABS: ALT 38 U/L (4-34); Alkaline Phosphatase 100 U/L (38-126); Anion Gap 4 mmol/L; Calcium 8.9 mg/dL (8.4-10.2); Potassium 4.4 mmol/L (3.5-5.1); Sodium 138 mmol/L (137-145)
[2021-03-29 12:00] LABS: Glucose,Whole Blood 159 mg/dL (75-99)
[2021-03-29] MEDS ORDERED: KETOROLAC 30 MG/ML 1 ML VIAL IM SCH (12:00)
[2021-03-29] MEDS: KETOROLAC 30 MG/ML 1 ML VIAL IVP SCH ×3 (12:47→22:36)
[2021-03-29] MEDS ORDERED: methylPREDNISolone SOD SUCCI 125 MG/2 ML VIAL IV SCH (16:00)
--- NOTE | 2021-03-29 16:56 | P.PN ---
Subjective Progress Note Date: 03/29/21 History of present illness This is a 55 year old female patient of Dr. Tabares and Dr. Ramirez with a past [facility] history of relapsing remitting multiple sclerosis, hypertension and hypertensive cardiovascular disease with left ventricular hypertrophy, history of GERD, multiple sclerosis, COPD, asthma, history of osteoporosis, uterine cancer status post surgery, chronic hypoxic respiratory failure on home O2 at 2 L nasal cannula, daily tobacco use, history of pseudotumor cerebri needing lumbar puncture in August 2020. She has had multiple admissions for acute exacerbation of her multiple sclerosis. Patient comes in with upper respiratory symptoms associated with shortness of breath for the past 1 day. She is also complaining of fever and chills body aches associated with cough and wheezing. Patient was noted to be hypoxic in the 84th on room air and was placed on 6 L of oxygen. Labs are reviewed patient has leukocytosis 0.8, hemoglobin 13.3 INR 0.9 sodium 138 potassium 3.5 BUN 8 creatinine 0.67 ferritin 249 meclizine 1.6 and liver enzymes are normal LDH was normal CRP is elevated at 5.7 proBNP 168. Pro- calcitonin 0.12, COVID negative. Chest x-ray suggestive of mild increase in interstitial densities. Imaging were limited due to patient's body habitus and portable settings. Patient examined sitting up in bed, appears to be comfortable, not using assessory muscles. Patient complains of sore spots in throat and closing of throat when she lies down. Patient aslo has significant abd apin with burning. She does prilosec but has no i mprovment. patient also noted to have elvated blood sugar since yesterdya. repeat hba1c and insulinsliding scale ordered. carafate added at 1 gm achs to help with abd pain. Nystatin added for 7 days to help with thrush. Patient is otherwise stable on current dose of steroids and augmentin. 03/29 patient examined at bedside is continues to have some discomfort involving headache abdominal pain generalized pain in all her extremities and body when she coughs. Patient is not complaining so much of sore throat today but she says it does come intermittently. Vitals are stable patient saturating at 93% on 2 L Labs are reviewed electrolytes are normal glucose is between 172 201 A1c 6.5. We will switch patient Solu-Medrol to oral prednisone today with possible discharge tomorrow ROS Constitutional: endorses chills, fever, lethargic, headache Eyes: denies decreased vision, denies diplopia, denies discharge, denies pain Ears: deny: decreased hearing Ears, nose, mouth and throat: Denies dental pain, Denies headache, Denies nasal discharge, Denies nose pain, Throat pain has improved Cardiovascular: Denies chest pain, Denies decreased exercise tolerance, Denies edema, Denies high blood pressure, Denies irregular heart beat, Denies palpitations, Denies paroxysmal nocturnal dyspnea, Denies rapid heart beat, Denies shortness of breath Resp Endorses cough and congestion endorses cough with sputum, Denies dyspnea, Denies home oxygen, Denies wheezing Gastrointestinal: endorsess abdominal pain, Denies change in bowel habits, Denies coffee ground emesis, Denies early satiety, Denies excessive gas, Denies heartburn, Denies hematemesis, Denies hematochezia, Denies loss of appetite, Denies nausea, Denies vomiting Genitourinary: Denies dysuria, Denies flank pain, Denies kidney stones, Denies menorrhagia, Denies urgency, Denies urinary frequency Musculoskeletal: Denies gait dysfunction, Denies limitation of motion, Denies morning stiffness, Denies muscle cramps Integumentary: Denies rash, Denies wounds, Denies brittle nails, Denies change in hair/nails, Denies darkening of skin Neurological: Denies balance difficulties, Denies change in speech, Denies double vision, Denies gait dysfunction, Denies loss of vision, Denies motor disturbance, Denies numbness, Denies paralysis, Denies paresthesias, Denies seizures Psychiatric: Denies anxiety, Denies depression Endocrine: Denies excessive sweating, Denies excessive thirst, Denies high blood sugars, Denies palpitations Hematologic/Lymphatic: Denies easy bruising, Denies lymphadenopathy Physical exam - Constitutional General appearance: cooperative, no acute distress, obese no use of system muscles - EENT Eyes: anicteric sclerae, PERRLA, normal appearance, white spots at the back of the throat ENT: hearing grossly normal - Neck Neck: no lymphadenopathy, normal ROM, no other, no rigidity, no stridor, no thyromegaly - Respiratory Respiratory: no wheezes noted bilaterally Cardiovascular Rhythm: regular Heart sounds: normal: S1, S2 Abnormal Heart Sounds: no systolic murmur, no diastolic murmur, no rub, no S3 Gallop, no S4 Gallop, no click, no other - Gastrointestinal General gastrointestinal: normal bowel sounds, soft - Integumentary Integumentary: no rash - Neurologic NeuNo gross motor deficit, generalized weakness bilateral lower extremities Musculoskeletal Musculoskeletal: gaitnot assessed strength equal bilaterally slightly decreased in bilateral lower extremity - Psychiatric Psychiatric: A&O x's 3, appropriate affect Assessment and plan acute hypoxic respiratory failure secondary to COPD exacerbation with history of asthma continue DuoNeb as needed for shortness of breath 4 times a day. Budesonide added by pulmonary twice a day with for Metro twice a day. Augmentin 875 mg twice daily. Sputum culture. Mucinex twice daily.Solu-Medrol discontinued prednisone 60 mg once a day starting today Uncontrolled hyperglycemia steroid induced, prediabetes in the past. HbA1c is 6.5 sliding scale ordered acute on chronic headache with history of pseudo-tumor cerebri. Fioricet increased to 1 tab every 4 hours. Lumbar puncture performed previously in August 2020. Continue Diamox 500 mg by mouth twice daily Acute abd pain with h/o GERD, likley sec to steroid. Some complaint is musculoskeletal, continue prilosec 40 mg po bID . carafate added at 1 gm achs thrush - nystatin swish and swallow qid X 7 days tobacco abuse. Patient counseled on tobacco cessation and increased risk of CAD, CVA and malignancy. Nicotine patch ordered .history of relapsing remitting MS not in acute exacerbation we will continue to follow patient's symptoms on daily basis if worsens will have him neurology consulted chronic pain and occipital neurology under the care of Dr. James madrid gabapentin 803 times a day Percocet 7.53 times a day hypertension and hypertensive cardiovascular disease continue hydrochlorothiazide 25 mg by mouth daily, verapamil 120 mg by mouth daily fibromyalgia continue gabapentin 800 mg 3 times a day generalized anxiety disorder continue Ativan 1 mg every 8 hours with BuSpar 10 mg 3 times a day obesity with possible obstructive sleep apnea and obesity hypoventilation syndrome currently stable recurrent depression continue Paxil 40 mg by mouth daily mild cognitive impairment on Namenda 10 mg twice daily Restless leg syndrome continue Requip 0.25 mg twice daily DVT prophylaxis heparin subcu GERD and GI prophylaxis continue Protonix 40 mg oral twice daily Code status full code Objective - Vital Signs Vital signs: Vital Signs Temp 97.5 F L 03/29/21 01:08 Pulse 110 H 03/29/21 07:48 Resp 24 03/29/21 07:48 BP 109/73 03/29/21 01:08 Pulse Ox 98 03/29/21 07:27 Intake & Output 03/28/21 03/29/21 03/29/21 18:59 06:59 18:59 Other: Voiding Method Toilet Toilet # Voids 3 - Labs CBC & Chem 7: 03/27/21 05:57 03/29/21 06:23 Labs: Abnormal Lab Results - Last 24 Hours (Table) 03/28/21 03/28/21 03/28/21 Range/Units 11: 16:52 19:55 POC Glucose (mg/dL) 209 H 184 H 201 H (75-99) mg/dL 03/29/21 Range/Units 07:27 POC Glucose (mg/dL) 187 H (75-99) mg/dL Microbiology - Last 24 Hours (Table) 03/27/21 05:57 Blood Culture - Preliminary Blood No Growth after 48 hours 03/28/21 03:04 Gram Stain - Preliminary Sputum Sputum Culture - Preliminary 03/27/21 05:57 Blood Culture - Preliminary Blood No Growth after 48 hours
[2021-03-29 16:57] LABS: Glucose,Whole Blood 158 mg/dL (75-99)
[2021-03-29] MEDS: predniSONE 20 MG TAB PO SCH (17:47)
[2021-03-29] MEDS ORDERED: MORPHINE SULFATE 2 MG/ML SYRINGE IVP PRN (18:08)
--- NOTE | 2021-03-29 19:43 | P.PN ---
Subjective Progress Note Date: 03/29/21 Principal diagnosis: Shortness of breath secondary to COPD exacerbation. Pulmonary consultation dated 03/27/2021. 55-year-old black female, seen in the emergency department. She was in room 19. She was brought in by EMS with severe shortness of breath. The patient apparently not been feeling well for about a day or so prior to admission. In addition, she was complaining of fever, body aches, cough, and wheezing. She does have a well-established history of underlying COPD. She sees one of my partners in the office. Apparently upon arrival, EMS discovered the patient have a saturation of 84% on room air. She was placed on nasal cannula at 6 L. Currently, she is getting a breathing treatment in the emergency department. He room 19. She's on 4 L nasal cannula. White count 13.8, hemoglobin 13.3, hematocrit 44.1, platelet count 200,000. PT 10, INR 0.9, PTT 20.9. Sodium potassium chloride CO2 all normal. Anion gap 7, BUN 8, creatinine 0.67. The patient's swab for coronavirus, was negative. Pro-calcitonin level was 0.12. N-terminal proBNP was 168. Chest x-ray was positive for cardiomegaly, and some mild interstitial changes. Progress note dated 03/28/2021. The patient is seen in room 462. We saw her in consultation yesterday, down in the emergency department. Currently, she is on 2 L nasal cannula. She's not receiving any IV fluids. The patient states that she's feeling a bit better today, but certainly not back to baseline. She still feeling short of breath, coughing, wheezing, chest congestion. Yesterday, she was on 4 L. There is no audible wheezing. The patient doesn't have any conversational dyspnea, or use of accessory muscles. No new laboratory data today. Chest x-ray from yesterday was already reviewed. Medications were adjusted accordingly. Progress note dated 03/29/2021. The patient is again seen in room 462. She's on 2 L nasal cannula, and not receiving any IV fluids. She is having proximal systems of cough. She was initially seen in consultation in the emergency department. Generally speaking, she's feeling a bit better. She is less short of breath, but she still has significant cough and bronchospasm. Sodium 138, potassium 4.4, chlorides 108, CO2 26, anion gap 4, BUN 12, creatinine 0.62. Objective - Vital Signs Vital signs: Vital Signs Temp 98.6 F 03/29/21 14:00 Pulse 98 03/29/21 17:02 Resp 18 03/29/21 14:00 BP 116/79 03/29/21 14:00 Pulse Ox 93 L 03/29/21 16:46 Intake & Output 03/29/21 03/29/21 03/30/21 06:59 18:59 06:59 Other: Voiding Method Toilet Toilet # Voids 4 - Exam Oriented 3. Mild conversational dyspnea. No use of accessory muscles. No audible wheezing. Saturations are 93% on 2 L. HEENT examination is grossly unremarkable. Neck supple. Full range of motion. No adenopathy thyromegaly or neck vein di stention. Cardiovascular examination reveals regular rhythm rate. S1-S2 normal. No S3 or S4. No discernible murmur noted. Heart sounds are distant. Heart rate 98 bpm. Lungs reveal coarse bilateral expiratory rhonchi and expiratory wheezes. Breath sounds are equal bilaterally. Breath sounds are diminished throughout. No crackles. Breath sounds are improved from yesterday. Frequent spells of harsh cough. Abdomen soft bowel sounds are heard. No masses or tenderness. Extremities are intact. No cyanosis or clubbing. Mild lower extremity edema. Skin is without rash or lesion. Neurologic examination is brief but nonfocal. - Labs CBC & Chem 7: 03/27/21 05:57 03/29/21 06:23 Labs: Abnormal Lab Results - Last 24 Hours (Table) 03/28/21 03/29/21 03/29/21 Range/Units 19:55 06:23 06:23 Chloride 108 H (98-107) mmol/L Glucose 173 H (74-99) mg/dL POC Glucose (mg/dL) 201 H (75-99) mg/dL Hemoglobin A1c 6.5 H (4.0-6.0) % Plasma Lactic Acid Adalid (0.7-2.0) mmol/L ALT 38 H (4-34) U/L Total Protein 6.2 L (6.3-8.2) g/dL 03/29/21 03/29/21 03/29/21 Range/Units 07:27 11:59 16:55 Chloride (98-107) mmol/L Glucose (74-99) mg/dL POC Glucose (mg/dL) 187 H 159 H 158 H (75-99) mg/dL Hemoglobin A1c (4.0-6.0) % Plasma Lactic Acid Adalid (0.7-2.0) mmol/L ALT (4-34) U/L Total Protein (6.3-8.2) g/dL 03/29/21 Range/Units 18:38 Chloride (98-107) mmol/L Glucose (74-99) mg/dL POC Glucose (mg/dL) (75-99) mg/dL Hemoglobin A1c (4.0-6.0) % Plasma Lactic Acid Adalid 2.2 H* (0.7-2.0) mmol/L ALT (4-34) U/L Total Protein (6.3-8.2) g/dL Microbiology - Last 24 Hours (Table) 03/27/21 05:57 Blood Culture - Preliminary Blood No Growth after 48 hours 03/28/21 03:04 Gram Stain - Preliminary Sputum Sputum Culture - Preliminary 03/27/21 05:57 Blood Culture - Preliminary Blood No Growth after 48 hours Assessment and Plan Assessment: Acute exacerbation of COPD. Ongoing tobacco use with nicotine addiction. History of relapsing multiple sclerosis. History of fibromyalgia. History of gastroesophageal reflux disease. History of hypertension. Prior history of pneumonia. History of optic neuritis, secondary to MS. History of osteoporosis. History of restless leg syndrome. History of uterine cancer, status post hysterectomy and subsequent radiation. Multiple other medical problems and comorbidities. Plan: Plan dated 03/27/2021. The patient is given albuterol sulfate and ipratropium bromide updraft treatments, 4 times a day and when necessary. We also recommend budesonide, 1 mg, mixed with 20 g of formoterol, twice a day. In addition, we recommended Solu-Medrol every 6 hours, and Augmentin 875 mg twice a day. We will continue to follow make recommendations where appropriate. Prognosis is guarded. The patient is counseled about the importance of smoking cessation. Plan dated 03/28/2021. The patient is down to 2 L. We made sure the patient was on appropriate medications including DuoNeb, Pulmicort, formoterol, Solu-Medrol, and Augmentin. The patient is coughing up some discolored phlegm. She feels much improved. She's currently not back to baseline. She still having chest tightness, as well as shortness breath, wheezing, and cough. No fever or chills. No chest pain per se. We will continue to follow make recommendations where appropriate. Plan dated 03/29/2021. The patient remains on 2 L nasal cannula. She's on appropriate medications including albuterol sulfate, ipratropium bromide, formoterol, Pulmicort, and Solu-Medrol. The patient is also on Augmentin, 875 mg twice a day. She continues to have significant bronchospasm, and cough. We will continue to follow and make recommendations where appropriate. Prognosis is guarded. Time with Patient: Less than 30
[2021-03-29 20:13] LABS: Glucose,Whole Blood 288 mg/dL (75-99)
[2021-03-29] MEDS: guaiFENesin-DM 600/30MG 1 EACH TAB.ER.12H PO SCH (22:32)
[2021-03-29] MEDS: MELATONIN 5 MG TABLET PO SCH (22:35)
[2021-03-30] MEDS: KETOROLAC 30 MG/ML 1 ML VIAL IVP SCH ×4 (04:59→21:40)
[2021-03-30 07:07] LABS: Glucose,Whole Blood 98 mg/dL (75-99)
[2021-03-30] MEDS: BUDESONIDE 1 MG/2 ML NEBU INHALATION SCH ×2 (07:26→20:08)
[2021-03-30] MEDS: IPRATROPIUM-ALBUTEROL 3 ML NEB INHALATION SCH ×4 (07:26→20:08)
[2021-03-30] MEDS: FORMOTEROL FUMARATE 20 MCG/2 ML NEBU INHALATION SCH ×2 (07:26→20:08)
[2021-03-30] MEDS: hydroCHLOROthiazide 25 MG TAB PO SCH (07:40)
[2021-03-30] MEDS: VERAPAMIL 40 MG TAB PO SCH (07:41)
[2021-03-30] MEDS: INSULIN ASPART (NovoLOG) 100 UNIT/ML VIAL SQ SCH ×4 (07:42→21:39)
[2021-03-30] MEDS: NICOTINE 14MG/24HR PATCH TRANSDERM SCH (08:10)
[2021-03-30] MEDS: HEPARIN SODIUM,PORCINE/PF 5,000 UNIT/0.5 ML SYRINGE SQ SCH ×2 (08:10→21:39)
[2021-03-30] MEDS: PARoxetine 20 MG TAB PO SCH (08:11)
[2021-03-30] MEDS: MEMANTINE 10 MG TAB PO SCH ×2 (08:11→21:42)
[2021-03-30] MEDS: GABAPENTIN 400 MG CAP PO SCH ×3 (08:11→21:41)
[2021-03-30] MEDS: MULTIVITAMINS, THERA 1 EACH TAB PO SCH (08:12)
[2021-03-30] MEDS: CHOLECALCIFEROL 25 MCG (1000 IU) TABLET PO SCH (08:12)
[2021-03-30] MEDS: TOPIRAMATE 100 MG TAB PO SCH ×2 (08:12→21:42)
[2021-03-30] MEDS: NYSTATIN 100,000 UNIT/ML SUSP 500,000 UNIT/5 ML CUP PO SCH ×4 (08:13→21:41)
[2021-03-30] MEDS: acetaZOLAMIDE 250 MG TAB PO SCH ×2 (08:13→21:39)
[2021-03-30] MEDS: AMOXIC-POT CLAV 875-125MG 1 EACH TAB PO SCH ×2 (08:14→21:41)
[2021-03-30] MEDS: SUCRALFATE 1 GM TAB PO SCH ×4 (08:14→21:42)
[2021-03-30] MEDS: busPIRone HCl 10 MG TAB PO SCH ×3 (08:14→21:41)
[2021-03-30] MEDS: ASCORBIC ACID 500 MG TAB PO SCH ×2 (08:14→21:43)
[2021-03-30] MEDS: ASPIRIN 81 MG PO SCH (08:15)
[2021-03-30] MEDS: PANTOPRAZOLE 40 MG TABLET PO SCH ×2 (08:15→17:57)
[2021-03-30] MEDS: FOLIC ACID 1 MG TAB PO SCH (08:15)
[2021-03-30] MEDS: MONTELUKAST 10 MG TAB PO SCH (08:16)
[2021-03-30] MEDS: oxyCODONE-APAP 7.5-325MG 1 EACH TAB PO SCH ×3 (08:16→21:42)
[2021-03-30] MEDS: guaiFENesin-DM 600/30MG 1 EACH TAB.ER.12H PO SCH ×2 (08:17→21:41)
[2021-03-30] MEDS: methocarbamoL 750 MG TAB PO SCH ×3 (08:17→21:42)
[2021-03-30] MEDS: predniSONE 20 MG TAB PO SCH (08:18)
[2021-03-30] MEDS: MAG HYDROX/AL HYDROX/SIMETH 30 ML, diphenhydrAMINE ELIXIR 75 MG, LIDOCAINE VISCOUS 30 ML PO SCH ×9 (08:18→21:39)
[2021-03-30] MEDS: BUTALB/APAP/CAFF 50-325-40MG TAB PO PRN ×4 (08:32→21:41)
[2021-03-30] MEDS: LORazepam 1 MG TAB PO PRN ×3 (08:33→21:42)
[2021-03-30] MEDS: IOPAMIDOL CONTRAST (ORAL USE) VIAL PO PRN ×2 (09:36→10:24)
[2021-03-30 11:22] LABS: Basophils % (A) 0 %; Eosinophils % (A) 0 %; HGB 13.8 gm/dL (11.4-16.0); Lymphocytes % (A) 8 %; MCH 32.9 pg (25.0-35.0); MCHC 32.2 g/dL (31.0-37.0); MCV 102.1 fL (80.0-100.0); Macrocytosis Slight; Monocytes # (A) 0.8 k/uL (0-1.0); Monocytes % (A) 6 %; Neutrophils # (A) 11.1 k/uL (1.3-7.7); Neutrophils % (A) 85 %; Platelet Count 205 k/uL (150-450); RBC 4.21 m/uL (3.80-5.40); RDW 13.4 % (11.5-15.5); WBC 13.1 k/uL (3.8-10.6)
[2021-03-30 11:33] LABS: ALT 54 U/L (4-34); AST 54 U/L (14-36); African American GFR (CKD) >90 (>60 ml/min/1.73 sqM); Albumin 3.8 g/dL (3.5-5.0); Albumin/Globulin Ratio 1.7; Alkaline Phosphatase 103 U/L (38-126); Anion Gap 7 mmol/L; Blood Urea Nitrogen 19 mg/dL (7-17); C Reactive Protein 2.4 mg/dL (<1.0); Calcium 9.2 mg/dL (8.4-10.2); Carbon Dioxide 28 mmol/L (22-30); Chloride 102 mmol/L (98-107); Globulin 2.3 g/dL; Glucose 167 mg/dL (74-99); Non-African American GFR(CKD) 82 (>60 ml/min/1.73 sqM); Potassium 3.4 mmol/L (3.5-5.1); Sodium 137 mmol/L (137-145); Total Bilirubin 0.4 mg/dL (0.2-1.3); Total Protein 6.1 g/dL (6.3-8.2)
--- NOTE | 2021-03-30 11:55 | P.PN ---
Subjective Progress Note Date: 03/30/21 History of present illness This is a 55 year old female patient of Dr. Tabares and Dr. Ramirez with a past [facility] history of relapsing remitting multiple sclerosis, hypertension and hypertensive cardiovascular disease with left ventricular hypertrophy, history of GERD, multiple sclerosis, COPD, asthma, history of osteoporosis, uterine cancer status post surgery, chronic hypoxic respiratory failure on home O2 at 2 L nasal cannula, daily tobacco use, history of pseudotumor cerebri needing lumbar puncture in August 2020. She has had multiple admissions for acute exacerbation of her multiple sclerosis. Patient comes in with upper respiratory symptoms associated with shortness of breath for the past 1 day. She is also complaining of fever and chills body aches associated with cough and wheezing. Patient was noted to be hypoxic in the 84th on room air and was placed on 6 L of oxygen. Labs are reviewed patient has leukocytosis 0.8, hemoglobin 13.3 INR 0.9 sodium 138 potassium 3.5 BUN 8 creatinine 0.67 ferritin 249 meclizine 1.6 and liver enzymes are normal LDH was normal CRP is elevated at 5.7 proBNP 168. Pro- calcitonin 0.12, COVID negative. Chest x-ray suggestive of mild increase in interstitial densities. Imaging were limited due to patient's body habitus and portable settings. Patient examined sitting up in bed, appears to be comfortable, not using assessory muscles. Patient complains of sore spots in throat and closing of throat when she lies down. Patient aslo has significant abd apin with burning. She does prilosec but has no i mprovment. patient also noted to have elvated blood sugar since yesterdya. repeat hba1c and insulinsliding scale ordered. carafate added at 1 gm achs to help with abd pain. Nystatin added for 7 days to help with thrush. Patient is otherwise stable on current dose of steroids and augmentin. 03/29 patient examined at bedside is continues to have some discomfort involving headache abdominal pain generalized pain in all her extremities and body when she coughs. Patient is not complaining so much of sore throat today but she says it does come intermittently. Vitals are stable patient saturating at 93% on 2 L Labs are reviewed electrolytes are normal glucose is between 172 201 A1c 6.5. We will switch patient Solu-Medrol to oral prednisone today with possible discharge tomorrow 03/30 patient examined at bedside continues to have severe abdominal pain in the left upper quadrant worse on coughing. Patient's pain is relieved with 2 mg of morphine that was ordered. Patient appears to have a low change in cough. Labs reviewed patient has a leukocytosis of 13, potassium 3.4 BUN 19 creatinine 0.8. Liver enzymes are mildly elevated, CRP has improved from 5.7-2.4. CT abdomen and pelvis ordered since patient consists of persistent pain not controlled on oral medications. ROS Constitutional: endorses chills, fever, lethargic, headache Eyes: denies decreased vision, denies diplopia, denies discharge, denies pain Ears: deny: decreased hearing Ears, nose, mouth and throat: Denies dental pain, Denies headache, Denies nasal discharge, Denies nose pain, Throat pain has improved Cardiovascular: Denies chest pain, Denies decreased exercise tolerance, Denies edema, Denies high blood pressure, Denies irregular heart beat, Denies palpitations, Denies paroxysmal nocturnal dyspnea, Denies rapid heart beat, Denies shortness of breath Resp Endorses cough and congestion endorses cough with sputum, Denies dyspnea, Denies home oxygen, Denies wheezing Gastrointestinal: endorsess abdominal pain worsening, Denies change in bowel habits, Denies coffee ground emesis, Denies early satiety, Denies excessive gas, Denies heartburn, Denies hematemesis, Denies hematochezia, Denies loss of appetite, Denies nausea, Denies vomiting Genitourinary: Denies dysuria, Denies flank pain, Denies kidney stones, Denies menorrhagia, Denies urgency, Denies urinary frequency Musculoskeletal: Denies gait dysfunction, Denies limitation of motion, Denies morning stiffness, Denies muscle cramps Integumentary: Denies rash, Denies wounds, Denies brittle nails, Denies change in hair/nails, Denies darkening of skin Neurological: Denies balance difficulties, Denies change in speech, Denies double vision, Denies gait dysfunction, Denies loss of vision, Denies motor disturbance, Denies numbness, Denies paralysis, Denies paresthesias, Denies seizures Psychiatric: Denies anxiety, Denies depression Endocrine: Denies excessive sweating, Denies excessive thirst, Denies high blood sugars, Denies palpitations Hematologic/Lymphatic: Denies easy bruising, Denies lymphadenopathy Physical exam - Constitutional General appearance: cooperative, no acute distress, obese no use of system muscles - EENT Eyes: anicteric sclerae, PERRLA, normal appearance, white spots at the back of the throat ENT: hearing grossly normal - Neck Neck: no lymphadenopathy, normal ROM, no other, no rigidity, no stridor, no thyromegaly - Respiratory Respiratory: no wheezes noted bilaterally Cardiovascular Rhythm: regular Heart sounds: normal: S1, S2 Abnormal Heart Sounds: no systolic murmur, no diastolic murmur, no rub, no S3 Gallop, no S4 Gallop, no click, no other - Gastrointestinal General gastrointestinal: normal bowel sounds, soft tender to palpate in the left lower quadrant - Integumentary Integumentary: no rash - Neurologic NeuNo gross motor deficit, generalized weakness bilateral lower extremities Musculoskeletal Musculoskeletal: gaitnot assessed strength equal bilaterally slightly decreased in bilateral lower extremity - Psychiatric Psychiatric: A&O x's 3, appropriate affect Assessment and plan Acute abd pain with h/o GERD, likley sec to steroid. Some complaint is musculoskeletal, continue prilosec 40 mg po bID . carafate added at 1 gm achs. No improvement with Carafate, CT abdomen and pelvis ordered for further evaluation Acute hypoxic respiratory failure secondary to COPD exacerbation with history of asthma continue DuoNeb as needed for shortness of breath 4 times a day. Budesonide added by pulmonary twice a day with for Metro twice a day. Augmentin 875 mg twice daily. Sputum culture. Mucinex twice daily.Solu-Medrol discontinued COntinue prednisone 60 mg once a day Uncontrolled hyperglycemia steroid induced, prediabetes in the past. HbA1c is 6.5 on sliding scale Acute on chronic headache with history of pseudo-tumor cerebri. Fioricet increased to 1 tab every 4 hours. Lumbar puncture performed previously in August 2020. Continue Diamox 500 mg by mouth twice daily Thrush - nystatin swish and swallow qid X 7 days tobacco abuse. Patient counseled on tobacco cessation and increased risk of CAD, CVA and malignancy. Nicotine patch ordered .History of relapsing remitting MS not in acute exacerbation we will continue to follow patient's symptoms on daily basis if worsens will have him neurology consulted Chronic pain and occipital neurology under the care of Dr. Shuayto aches gabapentin 803 times a day Percocet 7.53 times a day Hypertension and hypertensive cardiovascular disease continue hydrochlorothiazide 25 mg by mouth daily, verapamil 120 mg by mouth daily Fibromyalgia continue gabapentin 800 mg 3 times a day Generalized anxiety disorder continue Ativan 1 mg every 8 hours with BuSpar 10 mg 3 times a day Obesity with possible obstructive sleep apnea and obesity hypoventilation syndrome currently stable Recurrent depression continue Paxil 40 mg by mouth daily Mild cognitive impairment on Namenda 10 mg twice daily Restless leg syndrome continue Requip 0.25 mg twice daily DVT prophylaxis heparin subcu GERD and GI prophylaxis continue Protonix 40 mg oral twice daily Code status full code Objective - Vital Signs Vital signs: Vital Signs Temp 98.0 F 03/30/21 00:22 Pulse 78 03/30/21 07:38 Resp 16 03/30/21 07:32 BP 109/75 03/30/21 07:32 Pulse Ox 98 03/30/21 07:32 Intake & Output 03/29/21 03/30/21 03/30/21 18:59 06:59 18:59 Intake Total 960 Balance 960 Intake: Oral 960 Other: Voiding Method Toilet Toilet Toilet # Voids 4 4 - Labs CBC & Chem 7: 03/30/21 10:47 03/30/21 10:47 Labs: Abnormal Lab Results - Last 24 Hours (Table) 03/29/21 03/29/21 03/29/21 Range/Units 06:23 06:23 11:59 Chloride 108 H (98-107) mmol/L Glucose 173 H (74-99) mg/dL POC Glucose (mg/dL) 159 H (75-99) mg/dL Hemoglobin A1c 6.5 H (4.0-6.0) % Plasma Lactic Acid Adalid (0.7-2.0) mmol/L ALT 38 H (4-34) U/L Total Protein 6.2 L (6.3-8.2) g/dL 03/29/21 03/29/21 03/29/21 Range/Units 16:55 18:38 20:11 Chloride (98-107) mmol/L Glucose (74-99) mg/dL POC Glucose (mg/dL) 158 H 288 H (75-99) mg/dL Hemoglobin A1c (4.0-6.0) % Plasma Lactic Acid Adalid 2.2 H* (0.7-2.0) mmol/L ALT (4-34) U/L Total Protein (6.3-8.2) g/dL Microbiology - Last 24 Hours (Table) 03/27/21 05:57 Blood Culture - Preliminary Blood No Growth after 72 hours 03/27/21 05:57 Blood Culture - Preliminary Blood No Growth after 72 hours 03/28/21 03:04 Gram Stain - Preliminary Sputum Sputum Culture - Preliminary
--- NOTE | 2021-03-30 11:55 | CT ---
EXAMINATION TYPE: CT abdomen pelvis w con DATE OF EXAM: 03/30/2021 HISTORY: Acute left sided abdominal pain; covid CT DLP: 2124.3mGycm Automated Exposure Control for Dose Reduction was Utilized. CONTRAST: CT scan of the abdomen and pelvis is performed with oral and with IV Contrast, patient injected with 100 mL of Isovue 300. COMPARISON: CT abdomen and pelvis August 23, 2020 FINDINGS: LUNG BASES: Patchy groundglass opacities with slight nodularity right lung versus left lung correlate with history of current covid infection. Advise follow-up after treatment due to new nodularity to e xclude new nodules. LIVER/GB: Liver remains heterogeneously hypodense consistent with diffuse fatty infiltration. Simple appearing 2.0 cm thin-walled cyst left hepatic dome redemonstrated. Prominent right hepatic lobe rede monstrated. PANCREAS: No significant abnormality is seen. SPLEEN: No significant abnormality is seen. ADRENALS: No significant abnormality is seen. KIDNEYS: Symmetric cortical medullary uptake and excretion without hydronephrosis seen bilaterally. T here is 2 mm nonobstructing calculus upper pole right kidney coronal image 84. BOWEL: Moderate concentric gastric wall thickening remains present. Correlate for underlying diffuse moderate gastritis. Oral contrast reaches the level of the transverse colon. No suspicious small and large bowel dilatation noted. Wandering cecum into the anterior pelvis is prominent. Normal contrast- filled appearing terminal ileum is seen. Mild fecal prominence near the splenic flexure. UTERUS/ADNEXA: Uterus surgically absent or markedly atrophic. LYMPH NODES: No greater than 1cm abdominal or pelvic lymph nodes are appreciated. OSSEOUS STRUCTURES: Mild facet arthropathy lower lumbar spine redemonstrated. OTHER: Some subcutaneous air left anterior abdominal wall axial image 56 consistent with subcutaneous medicine injection. Correlate clinically. IMPRESSION: No significant new or acute findings are seen to account for patient's clinical symptoms.
[2021-03-30 11:59] LABS: Glucose,Whole Blood 138 mg/dL (75-99)
[2021-03-30 13:19] LABS: Erythrocyte Sedimentation Rate 9 mm/hr (0-20)
--- NOTE | 2021-03-30 16:16 | P.PN ---
Subjective Progress Note Date: 03/30/21 Principal diagnosis: Coughing, wheezing On 03/30/2021 patient seen in follow-up on medical surgical floor, she is resting comfortably in bed, she is still coughing, but overall she states she is breathing a bit better, she remains on 2 L of oxygen, her pulse ox is 96%, afebrile, hemodynamically she stable, lung sounds reveal diffuse wheezes bilaterally, sputum culture has been sent and showed no growth, blood cultures have been negative, his labs have been reviewed, with blood cell count is stable at 13.1, hemoglobin is 13.8, sodium is 137, potassium is 3.4, the rest of e lectrolytes were within normal limits, BUN is 19, creatinine 0.81, pro calcitonin level is negative, patient remains on DuoNeb, Pulmicort, Perforomist, she is on empiric antibiotics in the form of Augmentin Objective - Vital Signs Vital signs: Vital Signs Temp 98.8 F 03/30/21 14:00 Pulse 89 03/30/21 14:00 Resp 20 03/30/21 14:00 BP 113/75 03/30/21 14:00 Pulse Ox 96 03/30/21 14:00 Intake & Output 03/29/21 03/30/21 03/30/21 18:59 06:59 18:59 Intake Total 960 Balance 960 Intake: Oral 960 Other: Voiding Method Toilet Toilet Toilet # Voids 4 4 - Exam GENERAL EXAM: Alert, very pleasant 55-year-old obese -[place] female, on 2 L of oxygen the pulse ox of 96% omfortable in no apparent distress. HEAD: Normocephalic/atraumatic. EYES: Normal reaction of pupils, equal size. Conjunctiva pink, sclera white. NOSE: Clear with pink turbinates. THROAT: No erythema or exudates. NECK: No masses, no JVD, no thyroid enlargement, no adenopathy. CHEST: No chest wall deformity. Symmetrical expansion. LUNGS: Equal air entry with diffuse wheezes CVS: Regular rate and rhythm, normal S1 and S2, no gallops, no murmurs, no rubs ABDOMEN: Soft, nontender. No hepatosplenomegaly, normal bowel sounds, no guarding or rigidity. EXTREMITIES: No clubbing, no edema, no cyanosis, 2+ pulses and upper and lower extremities. MUSCULOSKELETAL: Muscle strength and tone normal. SPINE: No scoliosis or deformity SKIN: No rashes CENTRAL NERVOUS SYSTEM: Alert and oriented -3. No focal deficits, tone is normal in all 4 extremities. PSYCHIATRIC: Alert and oriented -3. Appropriate affect. Intact judgment and insight. - Labs CBC & Chem 7: 03/30/21 10:47 03/30/21 10:47 Labs: Abnormal Lab Results - Last 24 Hours (Table) 03/29/21 03/29/21 03/29/21 Range/Units 16:55 18:38 20:11 WBC (3.8-10.6) k/uL MCV (80.0-100.0) fL Neutrophils # (1.3-7.7) k/uL Potassium (3.5-5.1) mmol/L BUN (7-17) mg/dL Glucose (74-99) mg/dL POC Glucose (mg/dL) 158 H 288 H (75-99) mg/dL Plasma Lactic Acid Adalid 2.2 H* (0.7-2.0) mmol/L AST (14-36) U/L ALT (4-34) U/L C-Reactive Protein (<1.0) mg/dL Total Protein (6.3-8.2) g/dL 03/30/21 03/30/21 03/30/21 Range/Units 10:47 10:47 11:57 WBC 13.1 H (3.8-10.6) k/uL MCV 102.1 H (80.0-100.0) fL Neutrophils # 11.1 H (1.3-7.7) k/uL Potassium 3.4 L (3.5-5.1) mmol/L BUN 19 H (7-17) mg/dL Glucose 167 H (74-99) mg/dL POC Glucose (mg/dL) 138 H (75-99) mg/dL Plasma Lactic Acid Adalid (0.7-2.0) mmol/L AST 54 H (14-36) U/L ALT 54 H (4-34) U/L C-Reactive Protein 2.4 H (<1.0) mg/dL Total Protein 6.1 L (6.3-8.2) g/dL Microbiology - Last 24 Hours (Table) 03/28/21 03:04 Gram Stain - Final Sputum Sputum Culture - Final 03/27/21 05:57 Blood Culture - Preliminary Blood No Growth after 72 hours 03/27/21 05:57 Blood Culture - Preliminary Blood No Growth after 72 hours Assessment and Plan Plan: Assessment: #1. Acute exacerbation of COPD, chest x-ray showed cardiomegaly, with slightly increased interstitium. COVID-19 PCR was negative, pro-calcitonin level was low at 0.12 #2. Ongoing history of tobacco use with nicotine addiction #3. History of relapsing multiple sclerosis, patient follows with Dr. Hernandez, on Ocrevus #4. History of fibromyalgia #5. History of GERD #6. Hypertension #7. Prior history of pneumonia #8. 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 History of osteoporosis #10. History of restless leg syndrome #11. History of uterine cancer status post hysterectomy and subsequent radiation Plan: Continue nebulized bronchodilators Patient is still dyspneic and wheezing and coughing We'll place back on IV Solu-Medrol 60 mg every 6 hours Continue Pulmicort and Perforomist We'll continue to follow patient's clinical course She mentions that Dr. Ramirez had noted a pulmonary nodule in the left lung on one of the MRIs he had completed in the office We'll consider CT chest with IV contrast once her condition is better optimized I performed a history & physical examination of the patient and discussed their management with my nurse practitioner, Gay Hernandez. I reviewed the nurse practitioner's note and agree with the documented findings and plan of care. Lung sounds are positive for diffuse wheezes throughout the lung schwarz. The findings and the impression was discussed with the patient. I attest to the documentation by the nurse practitioner. Time with Patient: Less than 30
[2021-03-30 16:41] LABS: Glucose,Whole Blood 221 mg/dL (75-99)
[2021-03-30] MEDS: methylPREDNISolone SOD SUCCI 125 MG/2 ML VIAL IV SCH ×2 (17:57→21:40)
[2021-03-30 20:47] LABS: Glucose,Whole Blood 185 mg/dL (75-99)
[2021-03-30] MEDS: MELATONIN 5 MG TABLET PO SCH (21:43)
[2021-03-31] MEDS: methylPREDNISolone SOD SUCCI 125 MG/2 ML VIAL IV SCH ×4 (06:03→22:46)
[2021-03-31] MEDS: KETOROLAC 30 MG/ML 1 ML VIAL IVP SCH ×4 (06:03→22:48)
[2021-03-31 06:55] LABS: Glucose,Whole Blood 128 mg/dL (75-99)
[2021-03-31] MEDS: INSULIN ASPART (NovoLOG) 100 UNIT/ML VIAL SQ SCH ×4 (07:29→22:50)
[2021-03-31] MEDS: CHOLECALCIFEROL 25 MCG (1000 IU) TABLET PO SCH (08:19)
[2021-03-31] MEDS: NICOTINE 14MG/24HR PATCH TRANSDERM SCH (08:19)
[2021-03-31] MEDS: GABAPENTIN 400 MG CAP PO SCH ×3 (08:19→22:47)
[2021-03-31] MEDS: BUTALB/APAP/CAFF 50-325-40MG TAB PO PRN ×2 (08:19→22:48)
[2021-03-31] MEDS: MULTIVITAMINS, THERA 1 EACH TAB PO SCH (08:20)
[2021-03-31] MEDS: PARoxetine 20 MG TAB PO SCH (08:20)
[2021-03-31] MEDS: PANTOPRAZOLE 40 MG TABLET PO SCH ×2 (08:20→17:20)
[2021-03-31] MEDS: LORazepam 1 MG TAB PO PRN ×3 (08:21→22:49)
[2021-03-31] MEDS: oxyCODONE-APAP 7.5-325MG 1 EACH TAB PO SCH ×3 (08:21→22:49)
[2021-03-31] MEDS: ASCORBIC ACID 500 MG TAB PO SCH ×2 (08:21→22:49)
[2021-03-31] MEDS: MONTELUKAST 10 MG TAB PO SCH (08:21)
[2021-03-31] MEDS: FOLIC ACID 1 MG TAB PO SCH (08:21)
[2021-03-31] MEDS: ASPIRIN 81 MG PO SCH (08:21)
[2021-03-31] MEDS: SUCRALFATE 1 GM TAB PO SCH ×3 (08:22→17:19)
[2021-03-31] MEDS: hydroCHLOROthiazide 25 MG TAB PO SCH (08:22)
[2021-03-31] MEDS: TOPIRAMATE 100 MG TAB PO SCH ×3 (08:22→22:49)
[2021-03-31] MEDS: MEMANTINE 10 MG TAB PO SCH ×2 (08:22→22:49)
[2021-03-31] MEDS: busPIRone HCl 10 MG TAB PO SCH ×3 (08:22→22:49)
[2021-03-31] MEDS: guaiFENesin-DM 600/30MG 1 EACH TAB.ER.12H PO SCH ×2 (08:25→22:47)
[2021-03-31] MEDS: HEPARIN SODIUM,PORCINE/PF 5,000 UNIT/0.5 ML SYRINGE SQ SCH ×2 (08:25→22:46)
[2021-03-31] MEDS: NYSTATIN 100,000 UNIT/ML SUSP 500,000 UNIT/5 ML CUP PO SCH ×4 (08:26→22:47)
[2021-03-31] MEDS: MAG HYDROX/AL HYDROX/SIMETH 30 ML, diphenhydrAMINE ELIXIR 75 MG, LIDOCAINE VISCOUS 30 ML PO SCH ×9 (08:27→22:46)
[2021-03-31] MEDS: AMOXIC-POT CLAV 875-125MG 1 EACH TAB PO SCH ×2 (08:28→22:47)
[2021-03-31] MEDS: methocarbamoL 750 MG TAB PO SCH ×3 (08:28→22:49)
[2021-03-31] MEDS: VERAPAMIL 40 MG TAB PO SCH (08:28)
[2021-03-31] MEDS: acetaZOLAMIDE 250 MG TAB PO SCH ×2 (08:29→22:47)
[2021-03-31] MEDS: IPRATROPIUM-ALBUTEROL 3 ML NEB INHALATION SCH ×4 (09:08→21:31)
[2021-03-31] MEDS: FORMOTEROL FUMARATE 20 MCG/2 ML NEBU INHALATION SCH ×2 (09:08→21:31)
[2021-03-31] MEDS: BUDESONIDE 1 MG/2 ML NEBU INHALATION SCH ×2 (09:08→21:31)
[2021-03-31 11:29] LABS: Glucose,Whole Blood 198 mg/dL (75-99)
--- NOTE | 2021-03-31 14:41 | P.PN ---
Subjective Progress Note Date: 03/31/21 History of present illness This is a 55 year old female patient of Dr. Tabares and Dr. Ramirez with a past [facility] history of relapsing remitting multiple sclerosis, hypertension and hypertensive cardiovascular disease with left ventricular hypertrophy, history of GERD, multiple sclerosis, COPD, asthma, history of osteoporosis, uterine cancer status post surgery, chronic hypoxic respiratory failure on home O2 at 2 L nasal cannula, daily tobacco use, history of pseudotumor cerebri needing lumbar puncture in August 2020. She has had multiple admissions for acute exacerbation of her multiple sclerosis. Patient comes in with upper respiratory symptoms associated with shortness of breath for the past 1 day. She is also complaining of fever and chills body aches associated with cough and wheezing. Patient was noted to be hypoxic in the 84th on room air and was placed on 6 L of oxygen. Labs are reviewed patient has leukocytosis 0.8, hemoglobin 13.3 INR 0.9 sodium 138 potassium 3.5 BUN 8 creatinine 0.67 ferritin 249 meclizine 1.6 and liver enzymes are normal LDH was normal CRP is elevated at 5.7 proBNP 168. Pro- calcitonin 0.12, COVID negative. Chest x-ray suggestive of mild increase in interstitial densities. Imaging were limited due to patient's body habitus and portable settings. Patient examined sitting up in bed, appears to be comfortable, not using assessory muscles. Patient complains of sore spots in throat and closing of throat when she lies down. Patient aslo has significant abd apin with burning. She does prilosec but has no i mprovment. patient also noted to have elvated blood sugar since yesterdya. repeat hba1c and insulinsliding scale ordered. carafate added at 1 gm achs to help with abd pain. Nystatin added for 7 days to help with thrush. Patient is otherwise stable on current dose of steroids and augmentin. 03/29 patient examined at bedside is continues to have some discomfort involving headache abdominal pain generalized pain in all her extremities and body when she coughs. Patient is not complaining so much of sore throat today but she says it does come intermittently. Vitals are stable patient saturating at 93% on 2 L Labs are reviewed electrolytes are normal glucose is between 172 201 A1c 6.5. We will switch patient Solu-Medrol to oral prednisone today with possible discharge tomorrow 03/30 patient examined at bedside continues to have severe abdominal pain in the left upper quadrant worse on coughing. Patient's pain is relieved with 2 mg of morphine that was ordered. Patient appears to have a low change in cough. Labs reviewed patient has a leukocytosis of 13, potassium 3.4 BUN 19 creatinine 0.8. Liver enzymes are mildly elevated, CRP has improved from 5.7-2.4. CT abdomen and pelvis ordered since patient consists of persistent pain not controlled on oral medications. 03/31 patient examined bedside. Continues to have severe abdominal pain. CT abdomen and pelvis was obtained to rule out perforation. Patient does have moderate concentric S2 THICKENING for diffuse gastritis no suspicious for small bowel dilation. Mild fecal prominence noted the splenic flexure no acute findings noted. Patient informed about the results and suggested likely secondary to muscle spasm. Patient is currently on Robaxin, Toradol and morphine as needed for pain. She was upset that morphine is only as needed and not scheduled for her and she usually gets Dilor to her for pain control. Patient does go into coughing spells and has significant wheezing. But she is not short of breath at rest. Prednisone switch to Solu-Medrol as patient continues to wheeze despite being on medication. Patient gastritis currently treated with Protonix and Carafate. ROS Constitutional: endorses chills, fever, lethargic, headache Eyes: denies decreased vision, denies diplopia, denies discharge, denies pain Ears: deny: decreased hearing Ears, nose, mouth and throat: Denies dental pain, Denies headache, Denies nasal discharge, Denies nose pain, Throat pain has improved Cardiovascular: Denies chest pain, Denies decreased exercise tolerance, Denies edema, Denies high blood pressure, Denies irregular heart beat, Denies palpitations, Denies paroxysmal nocturnal dyspnea, Denies rapid heart beat, Denies shortness of breath Resp Endorses cough and congestion endorses cough with sputum, Denies dyspnea, Denies home oxygen, Denies wheezing Gastrointestinal: endorsess abdominal pain worsening, Denies change in bowel habits, Denies coffee ground emesis, Denies early satiety, Denies excessive gas, Denies heartburn, Denies hematemesis, Denies hematochezia, Denies loss of appetite, Denies nausea, Denies vomiting Genitourinary: Denies dysuria, Denies flank pain, Denies kidney stones, Denies menorrhagia, Denies urgency, Denies urinary frequency Musculoskeletal: Denies gait dysfunction, Denies limitation of motion, Denies morning stiffness, Denies muscle cramps Integumentary: Denies rash, Denies wounds, Denies brittle nails, Denies change in hair/nails, Denies darkening of skin Neurological: Denies balance difficulties, Denies change in speech, Denies double vision, Denies gait dysfunction, Denies loss of vision, Denies motor disturbance, Denies numbness, Denies paralysis, Denies paresthesias, Denies seiz ures Psychiatric: Denies anxiety, Denies depression Endocrine: Denies excessive sweating, Denies excessive thirst, Denies high blood sugars, Denies palpitations Hematologic/Lymphatic: Denies easy bruising, Denies lymphadenopathy Physical exam - Constitutional General appearance: cooperative, no acute distress, obese no use of system muscles - EENT Eyes: anicteric sclerae, PERRLA, normal appearance, white spots at the back of the throat ENT: hearing grossly normal - Neck Neck: no lymphadenopathy, normal ROM, no other, no rigidity, no stridor, no thyromegaly - Respiratory Respiratory: no wheezes noted bilaterally Cardiovascular Rhythm: regular Heart sounds: normal: S1, S2 Abnormal Heart Sounds: no systolic murmur, no diastolic murmur, no rub, no S3 Gallop, no S4 Gallop, no click, no other - Gastrointestinal General gastrointestinal: normal bowel sounds, soft tender to palpate in the left lower quadrant - Integumentary Integumentary: no rash - Neurologic NeuNo gross motor deficit, generalized weakness bilateral lower extremities Musculoskeletal Musculoskeletal: gaitnot assessed strength equal bilaterally slightly decreased in bilateral lower extremity - Psychiatric Psychiatric: A&O x's 3, appropriate affect Assessment and plan Acute abd pain secondary to gastritis and muscular spasm. continue prilosec 40 mg po bID . carafate added at 1 gm achs. No improvement with Carafate, CT abdomen and pelvis suggestive of moderate gastritis on morphine 2 mg IV every 6 Acute hypoxic respiratory failure secondary to COPD exacerbation with history of asthma continue DuoNeb as needed for shortness of breath 4 times a day. Budesonide added by pulmonary twice a day with for [place] twice a day. Augmentin 875 mg twice daily. Sputum culture. Mucinex twice daily.prednisone switch. Uncontrolled hyperglycemia steroid induced, prediabetes in the past. HbA1c is 6.5 on sliding scale Acute on chronic headache with history of pseudo-tumor cerebri. Fioricet incre ased to 1 tab every 4 hours. Lumbar puncture performed previously in August 2020. Continue Diamox 500 mg by mouth twice daily Thrush - nystatin swish and swallow qid X 7 days tobacco abuse. Patient counseled on tobacco cessation and increased risk of CAD, CVA and malignancy. Nicotine patch ordered .History of relapsing remitting MS not in acute exacerbation we will continue to follow patient's symptoms on daily basis if worsens will have him neurology consulted Chronic pain and occipital neurology under the care of Dr. James madrid gabapentin 803 times a day Percocet 7.53 times a day Hypertension and hypertensive cardiovascular disease continue hydrochlorothiazide 25 mg by mouth daily, verapamil 120 mg by mouth daily Fibromyalgia continue gabapentin 800 mg 3 times a day Generalized anxiety disorder continue Ativan 1 mg every 8 hours with BuSpar 10 mg 3 times a day Obesity with possible obstructive sleep apnea and obesity hypoventilation syndrome currently stable Recurrent depression continue Paxil 40 mg by mouth daily Mild cognitive impairment on Namenda 10 mg twice daily Restless leg syndrome continue Requip 0.25 mg twice daily DVT prophylaxis heparin subcu GERD and GI prophylaxis continue Protonix 40 mg oral twice daily Code status full code Objective - Vital Signs Vital signs: Vital Signs Temp 98.2 F 03/31/21 02:36 Pulse 88 03/31/21 09:34 Resp 18 03/31/21 02:36 BP 113/81 03/31/21 02:36 Pulse Ox 95 03/31/21 02:36 Intake & Output 03/30/21 03/31/21 03/31/21 18:59 06:59 18:59 Intake Total 2560 2640 Balance 2560 2640 Intake: Oral 2560 2640 Other: Voiding Method Toilet Toilet # Voids 3 3 2 # Bowel Movements 1 1 - Labs CBC & Chem 7: 03/30/21 10:47 03/30/21 10:47 Labs: Abnormal Lab Results - Last 24 Hours (Table) 03/30/21 03/30/21 03/30/21 Range/Units 10:47 10:47 11:57 WBC 13.1 H (3.8-10.6) k/uL MCV 102.1 H (80.0-100.0) fL Neutrophils # 11.1 H (1.3-7.7) k/uL Potassium 3.4 L (3.5-5.1) mmol/L BUN 19 H (7-17) mg/dL Glucose 167 H (74-99) mg/dL POC Glucose (mg/dL) 138 H (75-99) mg/dL AST 54 H (14-36) U/L ALT 54 H (4-34) U/L C-Reactive Protein 2.4 H (<1.0) mg/dL Total Protein 6.1 L (6.3-8.2) g/dL 03/30/21 03/30/21 03/31/21 Range/Units 16:39 20:46 06:53 WBC (3.8-10.6) k/uL MCV (80.0-100.0) fL Neutrophils # (1.3-7.7) k/uL Potassium (3.5-5.1) mmol/L BUN (7-17) mg/dL Glucose (74-99) mg/dL POC Glucose (mg/dL) 221 H 185 H 128 H (75-99) mg/dL AST (14-36) U/L ALT (4-34) U/L C-Reactive Protein (<1.0) mg/dL Total Protein (6.3-8.2) g/dL Microbiology - Last 24 Hours (Table) 03/27/21 05:57 Blood Culture - Preliminary Blood No Growth after 96 hours 03/27/21 05:57 Blood Culture - Preliminary Blood No Growth after 96 hours 03/28/21 03:04 Gram Stain - Final Sputum Sputum Culture - Final
[2021-03-31 16:58] LABS: Glucose,Whole Blood 191 mg/dL (75-99)
--- NOTE | 2021-03-31 18:01 | P.PN ---
Subjective Progress Note Date: 03/31/21 Principal diagnosis: Shortness of breath secondary to COPD exacerbation. Pulmonary consultation dated 03/27/2021. 55-year-old black female, seen in the emergency department. She was in room 19. She was brought in by EMS with severe shortness of breath. The patient apparently not been feeling well for about a day or so prior to admission. In addition, she was complaining of fever, body aches, cough, and wheezing. She does have a well-established history of underlying COPD. She sees one of my partners in the office. Apparently upon arrival, EMS discovered the patient have a saturation of 84% on room air. She was placed on nasal cannula at 6 L. Currently, she is getting a breathing treatment in the emergency department. He room 19. She's on 4 L nasal cannula. White count 13.8, hemoglobin 13.3, hematocrit 44.1, platelet count 200,000. PT 10, INR 0.9, PTT 20.9. Sodium potassium chloride CO2 all normal. Anion gap 7, BUN 8, creatinine 0.67. The patient's swab for coronavirus, was negative. Pro-calcitonin level was 0.12. N-terminal proBNP was 168. Chest x-ray was positive for cardiomegaly, and some mild interstitial changes. Progress note dated 03/28/2021. The patient is seen in room 462. We saw her in consultation yesterday, down in the emergency department. Currently, she is on 2 L nasal cannula. She's not receiving any IV fluids. The patient states that she's feeling a bit better today, but certainly not back to baseline. She still feeling short of breath, coughing, wheezing, chest congestion. Yesterday, she was on 4 L. There is no audible wheezing. The patient doesn't have any conversational dyspnea, or use of accessory muscles. No new laboratory data today. Chest x-ray from yesterday was already reviewed. Medications were adjusted accordingly. Progress note dated 03/29/2021. The patient is again seen in room 462. She's on 2 L nasal cannula, and not receiving any IV fluids. She is having proximal systems of cough. She was initially seen in consultation in the emergency department. Generally speaking, she's feeling a bit better. She is less short of breath, but she still has significant cough and bronchospasm. Sodium 138, potassium 4.4, chlorides 108, CO2 26, anion gap 4, BUN 12, creatinine 0.62. Progress note dated 03/31/2021. This is a 55-year-old black female, again seen in room 462. She remains on O2 at 2 L. She is clinically doing better according to the nurse. She is not receiving any IV fluids. There are no new labs today other than a sugar of 191. The patient is complaining of being short of breath, worse on exertion, and also having a chronic cough. The patient is on appropriate medications. Objective - Vital Signs Vital signs: Vital Signs Temp 98.1 F 03/31/21 14:00 Pulse 92 03/31/21 16:40 Resp 18 03/31/21 14:00 BP 126/70 03/31/21 14:00 Pulse Ox 95 03/31/21 14:00 Intake & Output 03/30/21 03/31/21 03/31/21 18:59 06:59 18:59 Intake Total 2560 2640 Balance 2560 2640 Intake: Oral 2560 2640 Other: Voiding Method Toilet Toilet Toilet # Voids 3 3 2 # Bowel Movements 1 1 - Exam Oriented 3. Mild conversational dyspnea. No use of accessory muscles. No audible wheezing. Saturations are 95% on 2 L. HEENT examination is grossly unremarkable. Neck supple. Full range of motion. No adenopathy thyromegaly or neck vein distention. Cardiovascular examination reveals regular rhythm rate. S1-S2 normal. No S3 or S4. No discernible murmur noted. Heart sounds are distant. Heart rate 92 bpm. Lungs reveal coarse bilateral expiratory rhonchi and expiratory wheezes. Breath sounds are equal bilaterally. Breath sounds are diminished throughout. No crackles. Breath sounds are improved from yesterday. Frequent spells of harsh cough. Abdomen soft bowel sounds are heard. No masses or tenderness. Extremities are intact. No cyanosis or clubbing. Mild lower extremity edema. Skin is without rash or lesion. Neurologic examination is brief but nonfocal. - Labs CBC & Chem 7: 03/30/21 10:47 03/30/21 10:47 Labs: Abnormal Lab Results - Last 24 Hours (Table) 03/30/21 03/31/21 03/31/21 Range/Units 20:46 06:53 11:27 POC Glucose (mg/dL) 185 H 128 H 198 H (75-99) mg/dL 03/31/21 Range/Units 16:57 POC Glucose (mg/dL) 191 H (75-99) mg/dL Microbiology - Last 24 Hours (Table) 03/27/21 05:57 Blood Culture - Preliminary Blood No Growth after 96 hours 03/27/21 05:57 Blood Culture - Preliminary Blood No Growth after 96 hours Assessment and Plan Assessment: Acute exacerbation of COPD. Ongoing tobacco use with nicotine addiction. History of relapsing multiple sclerosis. History of fibromyalgia. History of gastroesophageal reflux disease. History of hypertension. Prior history of pneumonia. History of optic neuritis, secondary to MS. History of osteoporosis. History of restless leg syndrome. History of uterine cancer, status post hysterectomy and subsequent radiation. Multiple other medical problems and comorbidities. Plan: Plan dated 03/27/2021. The patient is given albuterol sulfate and ipratropium bromide updraft treatments, 4 times a day and when necessary. We also recommend budesonide, 1 mg, mixed with 20 g of formoterol, twice a day. In addition, we recommended Solu-Medrol every 6 hours, and Augmentin 875 mg twice a day. We will continue to follow make recommendations where appropriate. Prognosis is guarded. The patient is counseled about the importance of smoking cessation. Plan dated 03/28/2021. The patient is down to 2 L. We made sure the patient was on appropriate medications including DuoNeb, Pulmicort, formoterol, Solu-Medrol, and Augmentin. The patient is coughing up some discolored phlegm. She feels much improved. She's currently not back to baseline. She still having chest tightness, as well as shortness breath, wheezing, and cough. No fever or chills. No chest pain per se. We will continue to follow make recommendations where appropriate. Plan dated 03/29/2021. The patient remains on 2 L nasal cannula. She's on appropriate medications including albuterol sulfate, ipratropium bromide, formoterol, Pulmicort, and Solu-Medrol. The patient is also on Augmentin, 875 mg twice a day. She continues to have significant bronchospasm, and cough. We will continue to follow and make recommendations where appropriate. Prognosis is guarded. Plan dated 03/31/2021. The patient remains on Augmentin 875 mg twice a day. In addition, she is getting Pulmicort 1 mg, mixed with formoterol, 20 g, twice a day. She is also getting codeine containing cough syrup, and also albuterol sulfate mixed with ipratropium bromide, 4 times a day and when necessary. Finally, she is getting Solu-Medrol 60 mg IV push every 6 hours. She seems to be responding to the medication. Her cough is much improved. Her shortness of breath is present mostly on exertion. We will continue to follow and make recommendations where appropriate. Prognosis is guarded. Time with Patient: Less than 30
[2021-03-31 21:21] LABS: Glucose,Whole Blood 195 mg/dL (75-99)
[2021-03-31] MEDS: MELATONIN 5 MG TABLET PO SCH (22:48)
[2021-04-01] MEDS: SUCRALFATE 1 GM TAB PO SCH ×5 (04:01→22:09)
[2021-04-01] MEDS: KETOROLAC 30 MG/ML 1 ML VIAL IVP SCH ×4 (05:31→22:06)
[2021-04-01] MEDS: methylPREDNISolone SOD SUCCI 125 MG/2 ML VIAL IV SCH ×4 (05:31→22:06)
[2021-04-01 07:11] LABS: Glucose,Whole Blood 149 mg/dL (75-99)
[2021-04-01] MEDS: NICOTINE 14MG/24HR PATCH TRANSDERM SCH (09:08)
[2021-04-01] MEDS: HEPARIN SODIUM,PORCINE/PF 5,000 UNIT/0.5 ML SYRINGE SQ SCH ×2 (09:08→22:03)
[2021-04-01] MEDS: INSULIN ASPART (NovoLOG) 100 UNIT/ML VIAL SQ SCH ×4 (09:09→22:05)
[2021-04-01] MEDS: MAG HYDROX/AL HYDROX/SIMETH 30 ML, diphenhydrAMINE ELIXIR 75 MG, LIDOCAINE VISCOUS 30 ML PO SCH ×9 (09:09→22:06)
[2021-04-01] MEDS: CHOLECALCIFEROL 25 MCG (1000 IU) TABLET PO SCH (09:10)
[2021-04-01] MEDS: MULTIVITAMINS, THERA 1 EACH TAB PO SCH (09:10)
[2021-04-01] MEDS: GABAPENTIN 400 MG CAP PO SCH ×3 (09:10→22:03)
[2021-04-01] MEDS: TOPIRAMATE 100 MG TAB PO SCH (09:10)
[2021-04-01] MEDS: busPIRone HCl 10 MG TAB PO SCH ×3 (09:10→22:03)
[2021-04-01] MEDS: PARoxetine 20 MG TAB PO SCH (09:11)
[2021-04-01] MEDS: ASPIRIN 81 MG PO SCH (09:11)
[2021-04-01] MEDS: FOLIC ACID 1 MG TAB PO SCH (09:11)
[2021-04-01] MEDS: MEMANTINE 10 MG TAB PO SCH ×2 (09:11→22:04)
[2021-04-01] MEDS: PANTOPRAZOLE 40 MG TABLET PO SCH ×2 (09:11→16:58)
[2021-04-01] MEDS: MONTELUKAST 10 MG TAB PO SCH (09:11)
[2021-04-01] MEDS: hydroCHLOROthiazide 25 MG TAB PO SCH (09:11)
[2021-04-01] MEDS: oxyCODONE-APAP 7.5-325MG 1 EACH TAB PO SCH ×3 (09:12→22:03)
[2021-04-01] MEDS: NYSTATIN 100,000 UNIT/ML SUSP 500,000 UNIT/5 ML CUP PO SCH ×4 (09:13→22:05)
[2021-04-01] MEDS: VERAPAMIL 40 MG TAB PO SCH (09:13)
[2021-04-01] MEDS: guaiFENesin-DM 600/30MG 1 EACH TAB.ER.12H PO SCH ×2 (09:14→21:58)
[2021-04-01] MEDS: methocarbamoL 750 MG TAB PO SCH ×3 (09:15→22:04)
[2021-04-01] MEDS: acetaZOLAMIDE 250 MG TAB PO SCH ×2 (09:15→22:04)
[2021-04-01] MEDS: ASCORBIC ACID 500 MG TAB PO SCH ×2 (09:15→22:04)
[2021-04-01] MEDS: AMOXIC-POT CLAV 875-125MG 1 EACH TAB PO SCH ×2 (09:16→22:04)
[2021-04-01] MEDS: DOCUSATE 100 MG CAP PO PRN (09:20)
[2021-04-01] MEDS: LORazepam 1 MG TAB PO PRN ×3 (09:20→22:04)
[2021-04-01] MEDS: BUTALB/APAP/CAFF 50-325-40MG TAB PO PRN ×3 (09:20→22:04)
[2021-04-01] MEDS: BUDESONIDE 1 MG/2 ML NEBU INHALATION SCH ×2 (09:34→19:53)
[2021-04-01] MEDS: FORMOTEROL FUMARATE 20 MCG/2 ML NEBU INHALATION SCH ×2 (09:34→19:53)
[2021-04-01] MEDS: IPRATROPIUM-ALBUTEROL 3 ML NEB INHALATION SCH ×4 (09:34→19:53)
[2021-04-01 11:10] LABS: HGB 13.4 gm/dL (11.4-16.0); Hypochromasia Slight; MCH 31.2 pg (25.0-35.0); MCHC 31.2 g/dL (31.0-37.0); Mean Platelet Volume 8.8; Platelet Count 195 k/uL (150-450)
[2021-04-01 11:24] LABS: ALT 72 U/L (4-34); AST 51 U/L (14-36); African American GFR (CKD) 89 (>60 ml/min/1.73 sqM); Albumin 3.7 g/dL (3.5-5.0); Albumin/Globulin Ratio 1.4; Alkaline Phosphatase 114 U/L (38-126); Anion Gap 8 mmol/L; Blood Urea Nitrogen 19 mg/dL (7-17); Calcium 9.5 mg/dL (8.4-10.2); Carbon Dioxide 30 mmol/L (22-30); Chloride 102 mmol/L (98-107); Globulin 2.6 g/dL; Glucose 160 mg/dL (74-99); Lipase 86 U/L (23-300); Magnesium 2.1 mg/dL (1.6-2.3); Non-African American GFR(CKD) 77 (>60 ml/min/1.73 sqM); Sodium 140 mmol/L (137-145); Total Bilirubin 0.4 mg/dL (0.2-1.3); Total Protein 6.3 g/dL (6.3-8.2)
[2021-04-01 11:45] LABS: Glucose,Whole Blood 148 mg/dL (75-99)
[2021-04-01] MEDS ORDERED: RX INFO: IV CONTRAST WAS GIVEN 1 EACH MISC MISCELLANE PRN (12:27)
--- NOTE | 2021-04-01 12:27 | P.PN ---
Subjective Progress Note Date: 04/01/21 Principal diagnosis: Coughing, wheezing On 03/30/2021 patient seen in follow-up on medical surgical floor, she is resting comfortably in bed, she is still coughing, but overall she states she is breathing a bit better, she remains on 2 L of oxygen, her pulse ox is 96%, afebrile, hemodynamically she stable, lung sounds reveal diffuse wheezes bilaterally, sputum culture has been sent and showed no growth, blood cultures have been negative, his labs have been reviewed, with blood cell count is stable at 13.1, hemoglobin is 13.8, sodium is 137, potassium is 3.4, the rest of e lectrolytes were within normal limits, BUN is 19, creatinine 0.81, pro calcitonin level is negative, patient remains on DuoNeb, Pulmicort, Perforomist, she is on empiric antibiotics in the form of Augmentin On 04/01/2021 patient seen in follow-up on medical surgical floor, she is awake and alert, in no acute distress, patient has been afebrile, she is currently on 2 L of oxygen with a pulse ox of 91-98%. She still complains of muscle spasm type sensation in the left lower quadrant. She feels like the spasm has traveled to the left side of her chest. Appears to be in no acute distress she remains on IV steroids with Solu-Medrol 60 mg every 6 hours, she is on Augmentin for empiric pneumatic coverage, she and she is on nebulized bronchodilators. Today's lab 7 reviewed, white blood cell count is relatively stable at 14, hemoglobin of 13.4, electrolytes are within normal limits, BUN is 19 creatinine 0.85. Lipase was within normal limits. CT of the abdomen and pelvis showed moderate concentric gastric wall thickening, correlate with moderate gastritis. No suspicious small or large bowel dilatation, wondering cecum, mild fecal prominence. Overall breathing is improving, slightly less bronchospastic on today's exam. Objective - Vital Signs Vital signs: Vital Signs Temp 97.8 F 04/01/21 08:00 Pulse 94 04/01/21 10:06 Resp 18 04/01/21 09:11 BP 143/87 04/01/21 08:00 Pulse Ox 98 04/01/21 11:25 Intake & Output 03/31/21 04/01/21 04/01/21 18:59 06:59 18:59 Intake Total 960 Balance 960 Intake: Oral 960 Other: Voiding Method Toilet Toilet # Voids 2 # Bowel Movements 1 - Exam GENERAL EXAM: Alert, very pleasant 55-year-old obese -[place] female, on 2 L of oxygen the pulse ox of 96% omfortable in no apparent distress. HEAD: Normocephalic/atraumatic. EYES: Normal reaction of pupils, equal size. Conjunctiva pink, sclera white. NOSE: Clear with pink turbinates. THROAT: No erythema or exudates. NECK: No masses, no JVD, no thyroid enlargement, no adenopathy. CHEST: No chest wall deformity. Symmetrical expansion. LUNGS: Equal air entry with diffuse wheezes CVS: Regular rate and rhythm, normal S1 and S2, no gallops, no murmurs, no rubs ABDOMEN: Soft, nontender. No hepatosplenomegaly, normal bowel sounds, no guarding or rigidity. EXTREMITIES: No clubbing, no edema, no cyanosis, 2+ pulses and upper and lower extremities. MUSCULOSKELETAL: Muscle strength and tone normal. SPINE: No scoliosis or deformity SKIN: No rashes CENTRAL NERVOUS SYSTEM: Alert and oriented -3. No focal deficits, tone is normal in all 4 extremities. PSYCHIATRIC: Alert and oriented -3. Appropriate affect. Intact judgment and insight. - Labs CBC & Chem 7: 04/01/21 10:37 04/01/21 10:37 Labs: Abnormal Lab Results - Last 24 Hours (Table) 03/31/21 03/31/21 04/01/21 Range/Units 16:57 21:19 07:09 WBC (3.8-10.6) k/uL BUN (7-17) mg/dL Glucose (74-99) mg/dL POC Glucose (mg/dL) 191 H 195 H 149 H (75-99) mg/dL AST (14-36) U/L ALT (4-34) U/L 04/01/21 04/01/21 04/01/21 Range/Units 10:37 10:37 11:39 WBC 14.0 H (3.8-10.6) k/uL BUN 19 H (7-17) mg/dL Glucose 160 H (74-99) mg/dL POC Glucose (mg/dL) 148 H (75-99) mg/dL AST 51 H (14-36) U/L ALT 72 H (4-34) U/L Microbiology - Last 24 Hours (Table) 03/27/21 05:57 Blood Culture - Preliminary Blood No Growth after 120 hours 03/27/21 05:57 Blood Culture - Preliminary Blood No Growth after 120 hours Assessment and Plan Plan: Assessment: #1. Acute exacerbation of COPD/and chronic bronchial asthma, chest x-ray showed cardiomegaly, with slightly increased interstitium. COVID-19 PCR was negative, pro-calcitonin level was low at 0.12 #2. Ongoing history of tobacco use with nicotine addiction #3. History of relapsing multiple sclerosis, patient follows with Dr. Hernandez, on Ocrevus #4. History of fibromyalgia #5. History of GERD #6. Hypertension #7. Prior history of pneumonia #8. 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 History of osteoporosis #10. History of restless leg syndrome #11. History of uterine cancer status post hysterectomy and subsequent radiation Plan: Continue nebulized bronchodilators Patient slightly improved, slightly less bronchospastic on today's exam Continue IV Solu-Medrol 60 mg every 6 hours Continue Pulmicort and Perforomist Obtain CT chest with contrast today Continue nebulized bronchodilators Patient wants to be considered for Trelegy inhaler once out of hospital I performed a history & physical examination of the patient and discussed their management with my nurse practitioner, Gay Hernandez. I reviewed the nurse practitioner's note and agree with the documented findings and plan of care. Lung sounds are positive for diffuse wheezes throughout the lung schwarz. The findings and the impression was discussed with the patient. I attest to the documentation by the nurse practitioner. Time with Patient: Less than 30
--- NOTE | 2021-04-01 15:53 | CT ---
EXAMINATION TYPE: CT chest w con DATE OF EXAM: 04/01/2021 COMPARISON: 03/30/2020 HISTORY: chest pain CT DLP: 658.5 mGycm, Automated exposure control for dose reduction was used. CONTRAST: Performed injected with 100 mL of Isovue 300. TECHNIQUE: Axial images were obtained at 5 mm thick sections. Reconstructed images are reviewed on [employer] computer in the coronal plane. FINDINGS: Portion of the thyroid visualized is normal. There is some peripheral streak opacities in bilateral lung bases may be related to streak atelectasi s. There is a 0.6 cm nodule within the posterior medial right lung base, series 201 image 34. In retrosp ect this may been present in 2019 and stable. Follow-up CT chest in 6 months recommended No enlarged mediastinal or hilar adenopathy is evident. The ascending aorta diameter at the level o f the main pulmonary artery is 2.4 cm. The main pulmonary artery diameter at the bifurcation is 4.0 cm. Correlate for pulmonary hypertension. Limited CT sections are obtained through the upper abdomen. There is a cyst within the superior right lobe liver. IMPRESSIONS: 1. Stable. 0.6 cm nodule posterior right lower lung field. Follow-up exam in 6 months is recommended. 2. Minimal streak atelectasis. 3. Clinical correlation recommended for pulmonary hypertension.
[2021-04-01] MEDS: FLUTICASONE 50MCG/SPRAY NASAL 16GM EA NOSTRIL SCH (16:24)
--- NOTE | 2021-04-01 16:31 | P.PN ---
Subjective Progress Note Date: 04/01/21 History of present illness This is a 55 year old female patient of Dr. Tabares and Dr. Ramirez with a past [facility] history of relapsing remitting multiple sclerosis, hypertension and hypertensive cardiovascular disease with left ventricular hypertrophy, history of GERD, multiple sclerosis, COPD, asthma, history of osteoporosis, uterine cancer status post surgery, chronic hypoxic respiratory failure on home O2 at 2 L nasal cannula, daily tobacco use, history of pseudotumor cerebri needing lumbar puncture in August 2020. She has had multiple admissions for acute exacerbation of her multiple sclerosis. Patient comes in with upper respiratory symptoms associated with shortness of breath for the past 1 day. She is also complaining of fever and chills body aches associated with cough and wheezing. Patient was noted to be hypoxic in the 84th on room air and was placed on 6 L of oxygen. Labs are reviewed patient has leukocytosis 0.8, hemoglobin 13.3 INR 0.9 sodium 138 potassium 3.5 BUN 8 creatinine 0.67 ferritin 249 meclizine 1.6 and liver enzymes are normal LDH was normal CRP is elevated at 5.7 proBNP 168. Pro- calcitonin 0.12, COVID negative. Chest x-ray suggestive of mild increase in interstitial densities. Imaging were limited due to patient's body habitus and portable settings. Patient examined sitting up in bed, appears to be comfortable, not using assessory muscles. Patient complains of sore spots in throat and closing of throat when she lies down. Patient aslo has significant abd apin with burning. She does prilosec but has no i mprovment. patient also noted to have elvated blood sugar since yesterdya. repeat hba1c and insulinsliding scale ordered. carafate added at 1 gm achs to help with abd pain. Nystatin added for 7 days to help with thrush. Patient is otherwise stable on current dose of steroids and augmentin. 03/29 patient examined at bedside is continues to have some discomfort involving headache abdominal pain generalized pain in all her extremities and body when she coughs. Patient is not complaining so much of sore throat today but she says it does come intermittently. Vitals are stable patient saturating at 93% on 2 L Labs are reviewed electrolytes are normal glucose is between 172 201 A1c 6.5. We will switch patient Solu-Medrol to oral prednisone today with possible discharge tomorrow 03/30 patient examined at bedside continues to have severe abdominal pain in the left upper quadrant worse on coughing. Patient's pain is relieved with 2 mg of morphine that was ordered. Patient appears to have a low change in cough. Labs reviewed patient has a leukocytosis of 13, potassium 3.4 BUN 19 creatinine 0.8. Liver enzymes are mildly elevated, CRP has improved from 5.7-2.4. CT abdomen and pelvis ordered since patient consists of persistent pain not controlled on oral medications. 03/31 patient examined bedside. Continues to have severe abdominal pain. CT abdomen and pelvis was obtained to rule out perforation. Patient does have moderate concentric S2 THICKENING for diffuse gastritis no suspicious for small bowel dilation. Mild fecal prominence noted the splenic flexure no acute findings noted. Patient informed about the results and suggested likely secondary to muscle spasm. Patient is currently on Robaxin, Toradol and morphine as needed for pain. She was upset that morphine is only as needed and not scheduled for her and she usually gets Dilor to her for pain control. Patient does go into coughing spells and has significant wheezing. But she is not short of breath at rest. Prednisone switch to Solu-Medrol as patient continues to wheeze despite being on medication. Patient gastritis currently treated with Protonix and Carafate. 04/01: Patient has significant cough with sputum production, complains of sinus drainage and head feels plugged. Patient is afebrile, heart rate 73, blood pressure 143/87, pulse ox 97% on room air. Repeat blood work reveals WBC 14, hemoglobin 13.4, platelet count 195. Creatinine 0.85. Blood sugars are running between 148 195. Magnesium 2.1. Lipase 86. Sputum culture is showing normal respiratory narendra. Patient is currently on oral antibiotics. Flonase changed to scheduled an Toradol added for pain. Patient is continued on Solu-Medrol 60 mg every 6 hours. Discussed smoking cessation and patient states she is trying to cut back. ROS Constitutional: endorses chills, fever, lethargic, headache Eyes: denies decreased vision, denies diplopia, denies discharge, denies pain Ears: deny: decreased hearing Ears, nose, mouth and throat: Denies dental pain, Denies headache, Denies nasal discharge, Denies nose pain, Throat pain has improved Cardiovascular: Denies chest pain, Denies decreased exercise tolerance, Denies edema, Denies high blood pressure, Denies irregular heart beat, Denies palpitations, Denies paroxysmal nocturnal dyspnea, Denies rapid heart beat, Denies shortness of breath Resp Endorses cough and congestion endorses cough with sputum production, Denies dyspnea, Denies home oxygen, Denies wheezing Gastrointestinal: endorsess abdominal pain worsening, Denies change in bowel habits, Denies coffee ground emesis, Denies early satiety, Denies excessive gas, Denies heartburn, Denies hematemesis, Denies hematochezia, Denies loss of appetite, Denies nausea, Denies vomiting Genitourinary: Denies dysuria, Denies flank pain, Denies kidney stones, Denies menorrhagia, Denies urgency, Denies urinary frequency Musculoskeletal: Denies gait dysfunction, Denies limitation of motion, Denies morning stiffness, Denies muscle cramps Integumentary: Denies rash, Denies wounds, Denies brittle nails, Denies change in hair/nails, Denies darkening of skin Neurological: Denies balance difficulties, Denies change in speech, Denies double vision, Denies gait dysfunction, Denies loss of vision, Denies motor disturbance, Denies numbness, Denies paralysis, Denies paresthesias, Denies seizures Psychiatric: Denies anxiety, Denies depression Endocrine: Denies excessive sweating, Denies excessive thirst, noted high blood sugars, Denies palpitations Hematologic/Lymphatic: Denies easy bruising, Denies lymphadenopathy Physical exam - Constitutional General appearance: cooperative, no acute distress, obese no use of system mus cles, cough noted - EENT Eyes: anicteric sclerae, PERRLA, normal appearance, white spots at the back of the throat ENT: hearing grossly normal - Neck Neck: no lymphadenopathy, normal ROM, no other, no rigidity, no stridor, no thyromegaly - Respiratory Respiratory: no wheezes noted bilaterally Cardiovascular Rhythm: regular Heart sounds: normal: S1, S2 Abnormal Heart Sounds: no systolic murmur, no diastolic murmur, no rub, no S3 Gallop, no S4 Gallop, no click, no other - Gastrointestinal General gastrointestinal: normal bowel sounds, soft tender to palpate in the left lower quadrant - Integumentary Integumentary: no rash - Neurologic NeuNo gross motor deficit, generalized weakness bilateral lower extremities Musculoskeletal Musculoskeletal: gaitnot assessed strength equal bilaterally slightly decreased in bilateral lower extremity - Psychiatric Psychiatric: A&O x's 3, appropriate affect Assessment and plan Acute abd pain secondary to gastritis and muscular spasm. continue prilosec 40 mg po bID . carafate added at 1 gm achs. No improvement with Carafate, CT abdomen and pelvis suggestive of moderate gastritis. Morphine discontinued. Acute hypoxic respiratory failure secondary to COPD exacerbation with history of asthma continue DuoNeb as needed for shortness of breath 4 times a day. Budesonide added by pulmonary twice a day, continue Solu-Medrol 60 mg every 6 hours. Augmentin 875 mg twice daily. Sputum culture. Mucinex twice daily. Uncontrolled hyperglycemia steroid induced, prediabetes in the past. HbA1c is 6.5 on sliding scale Acute on chronic headache with history of pseudo-tumor cerebri. Fioricet increased to 1 tab every 4 hours. Lumbar puncture performed previously in August 2020. Continue Diamox 500 mg by mouth twice daily Thrush - nystatin swish and swallow qid X 7 days tobacco abuse. Patient counseled on tobacco cessation and increased risk of CAD, CVA and malignancy. Nicotine patch ordered .History of relapsing remitting MS not in acute exacerbation we will continue to follow patient's symptoms on daily basis if worsens will have him neurology consulted Chronic pain and occipital neurology under the care of Dr. James madrid gabapentin 803 times a day Percocet 7.53 times a day Hypertension and hypertensive cardiovascular disease continue hydrochlorothiazide 25 mg by mouth daily, verapamil 120 mg by mouth daily Fibromyalgia continue gabapentin 800 mg 3 times a day Generalized anxiety disorder continue Ativan 1 mg every 8 hours with BuSpar 10 mg 3 times a day Obesity with possible obstructive sleep apnea and obesity hypoventilation syndrome currently stable Recurrent depression continue Paxil 40 mg by mouth daily Mild cognitive impairment on Namenda 10 mg twice daily Restless leg syndrome continue Requip 0.25 mg twice daily DVT prophylaxis heparin subcu GERD and GI prophylaxis continue Protonix 40 mg oral twice daily Code status full code Impression and plan of care have been directed as dictated by the signing physician. Elaine Nguyen nurse practitioner acting as scribe for signing ph ysician. Objective - Vital Signs Vital signs: Vital Signs Temp 97.8 F 04/01/21 08:00 Pulse 94 04/01/21 10:06 Resp 18 04/01/21 09:11 BP 143/87 04/01/21 08:00 Pulse Ox 91 L 04/01/21 09:35 Intake & Output 03/31/21 04/01/21 04/01/21 18:59 06:59 18:59 Intake Total 960 Balance 960 Intake: Oral 960 Other: Voiding Method Toilet Toilet # Voids 2 # Bowel Movements 1 - Labs CBC & Chem 7: 04/01/21 10:37 04/01/21 10:37 Labs: Abnormal Lab Results - Last 24 Hours (Table) 03/31/21 03/31/21 03/31/21 Range/Units 11:27 16:57 21:19 POC Glucose (mg/dL) 198 H 191 H 195 H (75-99) mg/dL 04/01/21 Range/Units 07:09 POC Glucose (mg/dL) 149 H (75-99) mg/dL Microbiology - Last 24 Hours (Table) 03/27/21 05:57 Blood Culture - Preliminary Blood No Growth after 120 hours 03/27/21 05:57 Blood Culture - Preliminary Blood No Growth after 120 hours
[2021-04-01 16:46] LABS: Glucose,Whole Blood 200 mg/dL (75-99)
[2021-04-01 20:43] LABS: Glucose,Whole Blood 247 mg/dL (75-99)
[2021-04-01] MEDS: MELATONIN 5 MG TABLET PO SCH (22:04)
[2021-04-01] MEDS: IPRATROPIUM-ALBUTEROL 3 ML NEB INHALATION PRN (23:34)
[2021-04-02] MEDS: KETOROLAC 30 MG/ML 1 ML VIAL IVP SCH ×4 (06:09→21:25)
[2021-04-02] MEDS: methylPREDNISolone SOD SUCCI 125 MG/2 ML VIAL IV SCH (06:09)
[2021-04-02 07:33] LABS: Glucose,Whole Blood 160 mg/dL (75-99)
[2021-04-02] MEDS: NICOTINE 14MG/24HR PATCH TRANSDERM SCH (07:42)
[2021-04-02] MEDS: INSULIN ASPART (NovoLOG) 100 UNIT/ML VIAL SQ SCH ×4 (07:43→21:25)
[2021-04-02] MEDS: NYSTATIN 100,000 UNIT/ML SUSP 500,000 UNIT/5 ML CUP PO SCH ×4 (07:43→21:24)
[2021-04-02] MEDS: MAG HYDROX/AL HYDROX/SIMETH 30 ML, diphenhydrAMINE ELIXIR 75 MG, LIDOCAINE VISCOUS 30 ML PO SCH ×9 (07:43→21:24)
[2021-04-02] MEDS: MULTIVITAMINS, THERA 1 EACH TAB PO SCH (07:44)
[2021-04-02] MEDS: DOCUSATE 100 MG CAP PO PRN (07:44)
[2021-04-02] MEDS: MEMANTINE 10 MG TAB PO SCH ×2 (07:44→21:26)
[2021-04-02] MEDS: TOPIRAMATE 100 MG TAB PO SCH ×2 (07:44→21:26)
[2021-04-02] MEDS: PANTOPRAZOLE 40 MG TABLET PO SCH ×2 (07:44→17:32)
[2021-04-02] MEDS: hydroCHLOROthiazide 25 MG TAB PO SCH (07:44)
[2021-04-02] MEDS: CHOLECALCIFEROL 25 MCG (1000 IU) TABLET PO SCH (07:44)
[2021-04-02] MEDS: ASPIRIN 81 MG PO SCH (07:44)
[2021-04-02] MEDS: FOLIC ACID 1 MG TAB PO SCH (07:45)
[2021-04-02] MEDS: LORazepam 1 MG TAB PO PRN ×3 (07:45→21:26)
[2021-04-02] MEDS: oxyCODONE-APAP 7.5-325MG 1 EACH TAB PO SCH ×3 (07:45→21:27)
[2021-04-02] MEDS: GABAPENTIN 400 MG CAP PO SCH ×3 (07:45→21:26)
[2021-04-02] MEDS: PARoxetine 20 MG TAB PO SCH (07:46)
[2021-04-02] MEDS: MONTELUKAST 10 MG TAB PO SCH (07:46)
[2021-04-02] MEDS: busPIRone HCl 10 MG TAB PO SCH ×3 (07:46→21:26)
[2021-04-02] MEDS: ASCORBIC ACID 500 MG TAB PO SCH ×2 (07:46→21:27)
[2021-04-02] MEDS: SUCRALFATE 1 GM TAB PO SCH ×4 (07:46→21:26)
[2021-04-02] MEDS: AMOXIC-POT CLAV 875-125MG 1 EACH TAB PO SCH (07:47)
[2021-04-02] MEDS: guaiFENesin-DM 600/30MG 1 EACH TAB.ER.12H PO SCH ×2 (07:47→21:24)
[2021-04-02] MEDS: acetaZOLAMIDE 250 MG TAB PO SCH ×2 (07:47→21:26)
[2021-04-02] MEDS: methocarbamoL 750 MG TAB PO SCH ×3 (07:48→21:26)
[2021-04-02] MEDS: FLUTICASONE 50MCG/SPRAY NASAL 16GM EA NOSTRIL SCH ×2 (07:48→21:24)
[2021-04-02] MEDS: VERAPAMIL 40 MG TAB PO SCH (07:48)
[2021-04-02] MEDS: BUTALB/APAP/CAFF 50-325-40MG TAB PO PRN ×4 (07:54→21:27)
[2021-04-02] MEDS: BUDESONIDE 1 MG/2 ML NEBU INHALATION SCH ×2 (08:30→20:25)
[2021-04-02] MEDS: FORMOTEROL FUMARATE 20 MCG/2 ML NEBU INHALATION SCH ×2 (08:30→20:25)
[2021-04-02] MEDS: IPRATROPIUM-ALBUTEROL 3 ML NEB INHALATION SCH ×4 (08:30→20:25)
[2021-04-02 11:40] LABS: Glucose,Whole Blood 160 mg/dL (75-99)
--- NOTE | 2021-04-02 12:42 | P.PN ---
Subjective Progress Note Date: 04/02/21 Principal diagnosis: Coughing, wheezing On 03/30/2021 patient seen in follow-up on medical surgical floor, she is resting comfortably in bed, she is still coughing, but overall she states she is breathing a bit better, she remains on 2 L of oxygen, her pulse ox is 96%, afebrile, hemodynamically she stable, lung sounds reveal diffuse wheezes bilaterally, sputum culture has been sent and showed no growth, blood cultures have been negative, his labs have been reviewed, with blood cell count is stable at 13.1, hemoglobin is 13.8, sodium is 137, potassium is 3.4, the rest of e lectrolytes were within normal limits, BUN is 19, creatinine 0.81, pro calcitonin level is negative, patient remains on DuoNeb, Pulmicort, Perforomist, she is on empiric antibiotics in the form of Augmentin On 04/01/2021 patient seen in follow-up on medical surgical floor, she is awake and alert, in no acute distress, patient has been afebrile, she is currently on 2 L of oxygen with a pulse ox of 91-98%. She still complains of muscle spasm type sensation in the left lower quadrant. She feels like the spasm has traveled to the left side of her chest. Appears to be in no acute distress she remains on IV steroids with Solu-Medrol 60 mg every 6 hours, she is on Augmentin for empiric pneumatic coverage, she and she is on nebulized bronchodilators. Today's lab 7 reviewed, white blood cell count is relatively stable at 14, hemoglobin of 13.4, electrolytes are within normal limits, BUN is 19 creatinine 0.85. Lipase was within normal limits. CT of the abdomen and pelvis showed moderate concentric gastric wall thickening, correlate with moderate gastritis. No suspicious small or large bowel dilatation, wondering cecum, mild fecal prominence. Overall breathing is improving, slightly less bronchospastic on today's exam. On 04/02/2021 patient seen in follow-up on medical surgical floor, doing much better today, breathing much easier, no wheezing noted on today's exam, only occasional cough, no phlegm production, no chest discomfort. Pulse ox is 92- 93%, she is afebrile, hemodynamically she is stable, IV Solu-Medrol has been dropped down to 40 mg every 6 hours, she is on nebulized treatments. She has completed 6 days of oral Augmentin. No acute events overnight. Chest CT with contrast showed a 0.6 mm nodule in the right lower lung field, with the recommendation of follow-up in 6 months. There was minimal streak atelectasis. Objective - Vital Signs Vital signs: Vital Signs Temp 98.2 F 04/02/21 07:56 Pulse 92 04/02/21 12:21 Resp 16 04/02/21 07:56 BP 123/81 04/02/21 07:56 Pulse Ox 92 L 04/02/21 08:30 Intake & Output 04/01/21 04/02/21 04/02/21 18:59 06:59 18:59 Intake Total 480 236 Balance 480 236 Intake: Oral 480 236 Other: Voiding Method Toilet Toilet Toilet # Voids 2 2 # Bowel Movements 2 - Exam GENERAL EXAM: Alert, very pleasant 55-year-old obese -[place] female, on 2 L of oxygen the pulse ox of 96% omfortable in no apparent distress. HEAD: Normocephalic/atraumatic. EYES: Normal reaction of pupils, equal size. Conjunctiva pink, sclera white. NOSE: Clear with pink turbinates. THROAT: No erythema or exudates. NECK: No masses, no JVD, no thyroid enlargement, no adenopathy. CHEST: No chest wall deformity. Symmetrical expansion. LUNGS: Equal air entry with diffuse wheezes CVS: Regular rate and rhythm, normal S1 and S2, no gallops, no murmurs, no rubs ABDOMEN: Soft, nontender. No hepatosplenomegaly, normal bowel sounds, no guarding or rigidity. EXTREMITIES: No clubbing, no edema, no cyanosis, 2+ pulses and upper and lower extremities. MUSCULOSKELETAL: Muscle strength and tone normal. SPINE: No scoliosis or deformity SKIN: No rashes CENTRAL NERVOUS SYSTEM: Alert and oriented -3. No focal deficits, tone is normal in all 4 extremities. PSYCHIATRIC: Alert and oriented -3. Appropriate affect. Intact judgment and insight. - Labs CBC & Chem 7: 04/01/21 10:37 04/01/21 10:37 Labs: Abnormal Lab Results - Last 24 Hours (Table) 04/01/21 04/01/21 04/02/21 Range/Units 16:45 20:42 07:22 POC Glucose (mg/dL) 200 H 247 H 160 H (75-99) mg/dL 04/02/21 Range/Units 11:39 POC Glucose (mg/dL) 160 H (75-99) mg/dL Microbiology - Last 24 Hours (Table) 03/27/21 05:57 Blood Culture - Final Blood No Growth after 144 hours 03/27/21 05:57 Blood Culture - Final Blood No Growth after 144 hours Assessment and Plan Plan: Assessment: #1. Acute exacerbation of COPD/and chronic bronchial asthma, chest x-ray showed cardiomegaly, with slightly increased interstitium. COVID-19 PCR was negative, pro-calcitonin level was low at 0.12 #2. Ongoing history of tobacco use with nicotine addiction #3. History of relapsing multiple sclerosis, patient follows with Dr. Hernandez, on Ocrevus #4. History of fibromyalgia #5. History of GERD #6. Hypertension #7. Prior history of pneumonia #8. 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 History of osteoporosis #10. History of restless leg syndrome #11. History of uterine cancer status post hysterectomy and subsequent radiation Plan: Continue nebulized bronchodilators Has significantly improved, no wheezing, no coughing, IV steroids are down to 40 mg every 6 hours Be started on prednisone taper tomorrow, and IV steroids can be discontinued CT chest has been reviewed, showing stable 0.6 mm nodule in right lower lobe, which will be followed in 6 months Possible discharge today or tomorro outpatient follow up with Dr. Rushing Patient wants to be considered for Trelegy inhaler once out of hospital I performed a history & physical examination of the patient and discussed their management with my nurse practitioner, Gay Hernandez. I reviewed the nurse practitioner's note and agree with the documented findings and plan of care. Lung sounds are positive for diffuse wheezes throughout the lung schwarz. The findings and the impression was discussed with the patient. I attest to the documentation by the nurse practitioner. Time with Patient: Less than 30
[2021-04-02 13:54] VITALS: BMI 42.1
[2021-04-02] MEDS: methylPREDNISolone SOD SUCCI 40 MG/ML 1 ML VIAL IV SCH ×2 (16:26→21:24)
[2021-04-02 16:30] LABS: Glucose,Whole Blood 117 mg/dL (75-99)
[2021-04-02 20:59] LABS: Glucose,Whole Blood 240 mg/dL (75-99)
[2021-04-02] MEDS: HEPARIN SODIUM,PORCINE/PF 5,000 UNIT/0.5 ML SYRINGE SQ SCH (21:24)
[2021-04-02] MEDS: MELATONIN 5 MG TABLET PO SCH (21:27)
[2021-04-03] MEDS: KETOROLAC 30 MG/ML 1 ML VIAL IVP SCH ×2 (06:09→13:30)
[2021-04-03] MEDS: BUTALB/APAP/CAFF 50-325-40MG TAB PO PRN ×2 (06:09→10:12)
[2021-04-03] MEDS: LORazepam 1 MG TAB PO PRN ×2 (06:10→10:09)
[2021-04-03 06:58] LABS: Glucose,Whole Blood 119 mg/dL (75-99)
[2021-04-03] MEDS: INSULIN ASPART (NovoLOG) 100 UNIT/ML VIAL SQ SCH ×2 (07:51→12:02)
[2021-04-03] MEDS: IPRATROPIUM-ALBUTEROL 3 ML NEB INHALATION SCH ×2 (09:30→13:42)
[2021-04-03] MEDS: FORMOTEROL FUMARATE 20 MCG/2 ML NEBU INHALATION SCH (09:31)
[2021-04-03] MEDS: BUDESONIDE 1 MG/2 ML NEBU INHALATION SCH (09:33)
[2021-04-03] MEDS: MULTIVITAMINS, THERA 1 EACH TAB PO SCH (10:03)
[2021-04-03] MEDS: CHOLECALCIFEROL 25 MCG (1000 IU) TABLET PO SCH (10:03)
[2021-04-03] MEDS: MONTELUKAST 10 MG TAB PO SCH (10:03)
[2021-04-03] MEDS: SUCRALFATE 1 GM TAB PO SCH ×2 (10:04→13:31)
[2021-04-03] MEDS: ASCORBIC ACID 500 MG TAB PO SCH (10:10)
[2021-04-03] MEDS: PARoxetine 20 MG TAB PO SCH (10:10)
[2021-04-03] MEDS: ASPIRIN 81 MG PO SCH (10:10)
[2021-04-03] MEDS: PANTOPRAZOLE 40 MG TABLET PO SCH (10:10)
[2021-04-03] MEDS: GABAPENTIN 400 MG CAP PO SCH (10:11)
[2021-04-03] MEDS: oxyCODONE-APAP 7.5-325MG 1 EACH TAB PO SCH (10:11)
[2021-04-03] MEDS: TOPIRAMATE 100 MG TAB PO SCH (10:11)
[2021-04-03] MEDS: busPIRone HCl 10 MG TAB PO SCH (10:12)
[2021-04-03] MEDS: methylPREDNISolone SOD SUCCI 40 MG/ML 1 ML VIAL IV SCH (10:13)
[2021-04-03] MEDS: HEPARIN SODIUM,PORCINE/PF 5,000 UNIT/0.5 ML SYRINGE SQ SCH (10:13)
[2021-04-03] MEDS: hydroCHLOROthiazide 25 MG TAB PO SCH (10:13)
[2021-04-03] MEDS: FOLIC ACID 1 MG TAB PO SCH (10:13)
[2021-04-03] MEDS: MEMANTINE 10 MG TAB PO SCH (10:13)
[2021-04-03] MEDS: MAG HYDROX/AL HYDROX/SIMETH 30 ML, diphenhydrAMINE ELIXIR 75 MG, LIDOCAINE VISCOUS 30 ML PO SCH ×3 (10:14)
[2021-04-03] MEDS: NICOTINE 14MG/24HR PATCH TRANSDERM SCH (10:14)
[2021-04-03] MEDS: VERAPAMIL 40 MG TAB PO SCH (10:15)
[2021-04-03] MEDS: NYSTATIN 100,000 UNIT/ML SUSP 500,000 UNIT/5 ML CUP PO SCH ×2 (10:15→13:30)
[2021-04-03] MEDS: guaiFENesin-DM 600/30MG 1 EACH TAB.ER.12H PO SCH (10:15)
[2021-04-03] MEDS: methocarbamoL 750 MG TAB PO SCH (10:16)
[2021-04-03] MEDS: FLUTICASONE 50MCG/SPRAY NASAL 16GM EA NOSTRIL SCH (10:16)
[2021-04-03] MEDS: acetaZOLAMIDE 250 MG TAB PO SCH (10:22)
--- NOTE | 2021-04-03 10:34 | P.DS ---
Providers Date of admission: 03/27/21 06:55 Expected date of discharge: 04/03/21 Attending physician: Nafisa Xie MD Consults: 03/27/21 06:54 Consult Physician Routine Consulting Provider: Juni Javier Consult Reason/Comments: COPD, possible COVID Do you want consulting provider notified?: Yes, Notify in am Primary care physician: Kilo Tabares [facility] Course: History of present illness This is a 55 year old female patient of Dr. Tabares and Dr. Ramirez with a past medical history of relapsing remitting multiple sclerosis, hypertension and hypertensive cardiovascular disease with left ventricular hypertrophy, history of GERD, multiple sclerosis, COPD, asthma, history of osteoporosis, uterine cancer status post surgery, chronic hypoxic respiratory failure on home O2 at 2 L nasal cannula, daily tobacco use, history of pseudotumor cerebri needing lumbar puncture in August 2020. She has had multiple admissions for acute exacerbation of her multiple sclerosis. Patient comes in with upper respiratory symptoms associated with shortness of breath for the past 1 day. She is also complaining of fever and chills body aches associated with cough and wheezing. Patient was noted to be hypoxic in the 84th on room air and was placed on 6 L of oxygen. Labs are reviewed patient has leukocytosis 0.8, hemoglobin 13.3 INR 0.9 sodium 138 potassium 3.5 BUN 8 creatinine 0.67 ferritin 249 meclizine 1.6 and liver enzymes are normal LDH was normal CRP is elevated at 5.7 proBNP 168. Pro- calcitonin 0.12, COVID negative. Chest x-ray suggestive of mild increase in interstitial densities. Imaging were limited due to patient's body habitus and portable settings. Patient examined sitting up in bed, appears to be comfortable, not using assessory muscles. Patient complains of sore spots in throat and closing of throat when she lies down. Patient aslo has significant abd apin with burning. She does prilosec but has no i mprovment. patient also noted to have elvated blood sugar since yesterdya. repeat hba1c and insulinsliding scale ordered. carafate added at 1 gm achs to help with abd pain. Nystatin added for 7 days to help with thrush. Patient is otherwise stable on current dose of steroids and augmentin. 03/29 patient examined at bedside is continues to have some discomfort involving headache abdominal pain generalized pain in all her extremities and body when she coughs. Patient is not complaining so much of sore throat today but she says it does come intermittently. Vitals are stable patient saturating at 93% on 2 L Labs are reviewed electrolytes are normal glucose is between 172 201 A1c 6.5. We will switch patient Solu-Medrol to oral prednisone today with possible discharge tomorrow 03/30 patient examined at bedside continues to have severe abdominal pain in the left upper quadrant worse on coughing. Patient's pain is relieved with 2 mg of morphine that was ordered. Patient appears to have a low change in cough. Labs reviewed patient has a leukocytosis of 13, potassium 3.4 BUN 19 creatinine 0.8. Liver enzymes are mildly elevated, CRP has improved from 5.7-2.4. CT abdomen and pelvis ordered since patient consists of persistent pain not controlled on oral medications. 03/31 patient examined bedside. Continues to have severe abdominal pain. CT abdomen and pelvis was obtained to rule out perforation. Patient does have moderate concentric S2 THICKENING for diffuse gastritis no suspicious for small bowel dilation. Mild fecal prominence noted the splenic flexure no acute findings noted. Patient informed about the results and suggested likely secondary to muscle spasm. Patient is currently on Robaxin, Toradol and morphine as needed for pain. She was upset that morphine is only as needed and not scheduled for her and she usually gets Dilor to her for pain control. Patient does go into coughing spells and has significant wheezing. But she is not short of breath at rest. Prednisone switch to Solu-Medrol as patient continues to wheeze despite being on medication. Patient gastritis currently treated with Protonix and Carafate. 04/01: Patient has significant cough with sputum production, complains of sinus drainage and head feels plugged. Patient is afebrile, heart rate 73, blood pressure 143/87, pulse ox 97% on room air. Repeat blood work reveals WBC 14, hemoglobin 13.4, platelet count 195. Creatinine 0.85. Blood sugars are running between 148 195. Magnesium 2.1. Lipase 86. Sputum culture is showing normal respiratory narendra. Patient is currently on oral antibiotics. Flonase changed to scheduled an Toradol added for pain. Patient is continued on Solu-Medrol 60 mg every 6 hours. Discussed smoking cessation and patient states she is trying to cut back. 04/02: Patient is seen today in follow-up. She is currently on Solu-Medrol 60 every 6 hours which will be decreased to 40 every 8 and preparation for going home tomorrow. She is continued on Carafate and Protonix. Patient states she does have some coughing after she gets her nebulizer treatments and at bedtime. She's been afebrile, heart rate 89, blood pressure 123/81, pulse ox 93% on room air. Patient is complaining of shortness of breath that she had this morning which seems to be improved. She's been followed by pulmonary medicine area 04/03: Patient has completed course of antibiotics and Augmentin discontinued after 7 days. Patient's complains of hacking cough. She is currently on Solu- Medrol which will be transitioned to oral prednisone at 50 with a 2 day taper. She does complain of postnasal drip and hacking cough. She has been afebrile, heart rate 88, blood pressure 122/65, pulse ox 99% on 2 L nasal cannula. Blood sugars are running between 109 and 240. Patient will be discharged home today in stable condition. DISCHARGE DIAGNOSES Acute abd pain secondary to gastritis and muscular spasm. Acute hypoxic respiratory failure secondary to COPD exacerbation with history of asthma Uncontrolled hyperglycemia steroid induced, prediabetes in the past. HbA1c is 6.5. Acute on chronic headache with history of pseudo-tumor cerebri. Thrush tobacco abuse History of relapsing remitting MS not in acute exacerbation Chronic pain and occipital neurology under the care of Dr. Ramirez Hypertension and hypertensive cardiovascular disease Fibromyalgia Generalized anxiety disorder Obesity with possible obstructive sleep apnea and obesity hypoventilation syndrome Recurrent depression Mild cognitive impairment Restless leg syndrome GERD DISCHARGE PLAN Home [facility] Care Greater than 35 minutes was utilized and coordinating patient's discharge. Impression and plan of care have been directed as dictated by the signing physician. Elaine Nguyen nurse practitioner acting as scribe for signing physician. Patient Condition at Discharge: Stable Plan - Discharge Summary Discharge Rx Participant: No New Discharge Prescriptions: New Sucralfate [Carafate] 1 gm PO ACHS #120 tab Nicotine 14Mg/24Hr Patch [Habitrol] 1 patch TRANSDERM DAILY #30 patch Nystatin 100,000 Unit/ml Susp [Mycostatin Oral Susp] 500,000 unit PO QID #140 ml predniSONE 0 mg PO DIRECTED #40 tab Budesonide [Pulmicort] 1 mg INHALATION RT-BID #120 ml guaiFENesin-DM 600/30MG [Mucinex Dm] 2 each PO Q12HR #30 tablet Continue LORazepam [Ativan] 1 mg PO TID PRN PRN Reason: Anxiety Aspirin 81 mg PO DAILY Verapamil HCl [Calan] 120 mg PO DAILY Butalb/APAP/Caff 50-325-40Mg [Fioricet 50-325-40] 1 tab PO Q8H PRN PRN Reason: Headache rOPINIRole HCL [Requip] 0.25 mg PO TID #90 tab Budesonide/Formoterol Fumarate [Symbicort 160-4.5 Mcg Inhaler] 2 puff INHALATION RT-BID Multivitamins, Thera [Multivitamin (formulary)] 1 tab PO DAILY Cholecalciferol [Vitamin D3 (25 Mcg = 1000 Iu)] 50 mcg PO DAILY PARoxetine [Paxil] 40 mg PO DAILY tab Pantoprazole Sodium [Protonix] 40 mg PO BID Ipratropium-Albuterol Nebulize [Duoneb 0.5 mg-3 mg/3 ml Soln] 3 ml INHALATION RT-QID PRN PRN Reason: Shortness Of Breath Memantine [Namenda] 10 mg PO BID Montelukast [Singulair] 10 mg PO DAILY hydroCHLOROthiazide [Hydrodiuril] 25 mg PO DAILY tab Fluticasone Nasal [place] [Flonase Nasal [place]] 2 spr EA NOSTRIL DAILY PRN PRN Reason: Congestion Methocarbamol [Robaxin-750] 750 mg PO TID busPIRone HCl [Buspar] 10 mg PO TID #90 tab Folic Acid 1 mg PO DAILY #30 tab Albuterol Sulfate [Ventolin HFA] 1 - 2 puff INHALATION RT-QID PRN PRN Reason: Shortness Of Breath Docusate [Colace] 100 mg PO DAILY PRN PRN Reason: Constipation Zinc Gluconate [Zinc] 25 mg PO DAILY Ascorbic Acid [Vitamin C] 1,000 mg PO DAILY Diclofenac Sodium Gel [Voltaren Gel] 2 gm TOPICAL QID PRN #0 PRN Reason: Pain Turmeric Root Extract [Turmeric] 500 mg PO DAILY Elderberry Fruit and Flower [Black Elderberry 575 mg Cap] 1 cap PO DAILY Gabapentin 800 mg PO TID Topiramate [Topamax] 100 mg PO BID oxyCODONE-APAP 7.5-325MG [Percocet 7.5-325 mg] 1 tab PO TID acetaZOLAMIDE [Diamox Sequels] 500 mg PO BID Discharge Medication List Aspirin 81 mg PO DAILY 02/20/14 [History] LORazepam [Ativan] 1 mg PO TID PRN 02/20/14 [History] Verapamil HCl [Calan] 120 mg PO DAILY 02/20/14 [History] Butalb/APAP/Caff 50-325-40Mg [Fioricet 50-325-40] 1 tab PO Q8H PRN 03/25/17 [History] rOPINIRole HCL [Requip] 0.25 mg PO TID #90 tab 01/31/18 [Rx] Budesonide/Formoterol Fumarate [Symbicort 160-4.5 Mcg Inhaler] 2 puff INHALATION RT-BID 05/06/18 [History] Cholecalciferol [Vitamin D3 (25 Mcg = 1000 Iu)] 50 mcg PO DAILY 05/07/18 [History] Multivitamins, Thera [Multivitamin (formulary)] 1 tab PO DAILY 05/07/18 [History] PARoxetine [Paxil] 40 mg PO DAILY tab 05/09/18 [Rx] Pantoprazole Sodium [Protonix] 40 mg PO BID 10/31/18 [History] Ipratropium-Albuterol Nebulize [Duoneb 0.5 mg-3 mg/3 ml Soln] 3 ml INHALATION RT-QID PRN 11/22/18 [History] Memantine [Namenda] 10 mg PO BID 11/22/18 [History] Montelukast [Singulair] 10 mg PO DAILY 11/22/18 [History] hydroCHLOROthiazide [Hydrodiuril] 25 mg PO DAILY tab 11/26/18 [Rx] Fluticasone Nasal [place] [Flonase Nasal [place]] 2 spr EA NOSTRIL DAILY PRN 04/28/19 [History] Methocarbamol [Robaxin-750] 750 mg PO TID 04/28/19 [History] Folic Acid 1 mg PO DAILY #30 tab 05/02/19 [Rx] busPIRone HCl [Buspar] 10 mg PO TID #90 tab 05/02/19 [Rx] Albuterol Sulfate [Ventolin HFA] 1 - 2 puff INHALATION RT-QID PRN 08/09/19 [History] Ascorbic Acid [Vitamin C] 1,000 mg PO DAILY 01/30/20 [History] Docusate [Colace] 100 mg PO DAILY PRN 01/30/20 [History] Zinc Gluconate [Zinc] 25 mg PO DAILY 01/30/20 [History] Diclofenac Sodium Gel [Voltaren Gel] 2 gm TOPICAL QID PRN #0 03/26/20 [History] Elderberry Fruit and Flower [Black Elderberry 575 mg Cap] 1 cap PO DAILY 06/14/20 [History] Turmeric Root Extract [Turmeric] 500 mg PO DAILY 06/14/20 [History] Gabapentin 800 mg PO TID 08/21/20 [History] Topiramate [Topamax] 100 mg PO BID 08/21/20 [History] oxyCODONE-APAP 7.5-325MG [Percocet 7.5-325 mg] 1 tab PO TID 10/30/20 [History] acetaZOLAMIDE [Diamox Sequels] 500 mg PO BID 03/27/21 [History] Budesonide [Pulmicort] 1 mg INHALATION RT-BID #120 ml 04/03/21 [Rx] Nicotine 14Mg/24Hr Patch [Habitrol] 1 patch TRANSDERM DAILY #30 patch 04/03/21 [Rx] Nystatin 100,000 Unit/ml Susp [Mycostatin Oral Susp] 500,000 unit PO QID #140 ml 04/03/21 [Rx] Sucralfate [Carafate] 1 gm PO ACHS #120 tab 04/03/21 [Rx] guaiFENesin-DM 600/30MG [Mucinex Dm] 2 each PO Q12HR #30 tablet 04/03/21 [Rx] predniSONE 0 mg PO DIRECTED #40 tab 04/03/21 [Rx] Follow up Appointment(s)/Referral(s): [facility], [NON-STAFF] - 1-2 Days Kilo Tabares MD [Primary Care Provider] - 04/09/21 3:[address] Rushing MD [STAFF PHYSICIAN] - 1 Week Patient Instructions/Handouts: COPD (Chronic Obstructive Pulmonary Disease) (DC) Discharge Disposition: HOME WITH HOME HEALTH SERVICES
[2021-04-03 11:57] LABS: Glucose,Whole Blood 109 mg/dL (75-99)
--- NOTE | 2021-04-03 13:04 | P.PN ---
Subjective Progress Note Date: 04/03/21 Principal diagnosis: Coughing, wheezing On 03/30/2021 patient seen in follow-up on medical surgical floor, she is resting comfortably in bed, she is still coughing, but overall she states she is breathing a bit better, she remains on 2 L of oxygen, her pulse ox is 96%, afebrile, hemodynamically she stable, lung sounds reveal diffuse wheezes bilaterally, sputum culture has been sent and showed no growth, blood cultures have been negative, his labs have been reviewed, with blood cell count is stable at 13.1, hemoglobin is 13.8, sodium is 137, potassium is 3.4, the rest of e lectrolytes were within normal limits, BUN is 19, creatinine 0.81, pro calcitonin level is negative, patient remains on DuoNeb, Pulmicort, Perforomist, she is on empiric antibiotics in the form of Augmentin On 04/01/2021 patient seen in follow-up on medical surgical floor, she is awake and alert, in no acute distress, patient has been afebrile, she is currently on 2 L of oxygen with a pulse ox of 91-98%. She still complains of muscle spasm type sensation in the left lower quadrant. She feels like the spasm has traveled to the left side of her chest. Appears to be in no acute distress she remains on IV steroids with Solu-Medrol 60 mg every 6 hours, she is on Augmentin for empiric pneumatic coverage, she and she is on nebulized bronchodilators. Today's lab 7 reviewed, white blood cell count is relatively stable at 14, hemoglobin of 13.4, electrolytes are within normal limits, BUN is 19 creatinine 0.85. Lipase was within normal limits. CT of the abdomen and pelvis showed moderate concentric gastric wall thickening, correlate with moderate gastritis. No suspicious small or large bowel dilatation, wondering cecum, mild fecal prominence. Overall breathing is improving, slightly less bronchospastic on today's exam. On 04/02/2021 patient seen in follow-up on medical surgical floor, doing much better today, breathing much easier, no wheezing noted on today's exam, only occasional cough, no phlegm production, no chest discomfort. Pulse ox is 92- 93%, she is afebrile, hemodynamically she is stable, IV Solu-Medrol has been dropped down to 40 mg every 6 hours, she is on nebulized treatments. She has completed 6 days of oral Augmentin. No acute events overnight. Chest CT with contrast showed a 0.6 mm nodule in the right lower lung field, with the recommendation of follow-up in 6 months. There was minimal streak atelectasis. On 04/03/2021 patient seen in follow-up on medical surgical floor, she is currently on 2 L of oxygen, and her pulse ox is 95%, she has been afebrile, breathing more comfortably, she still has some scattered rhonchi on today's exam, no significant wheezing, overall significantly improved, much less bronchospastic and dyspneic. She has been transitioned to oral prednisone, IV steroids have been discontinued, she remains on nebulized and inhaled bronchodilators, she has completed a course of Augmentin. ProCalcitonin level is negative at 0.12. She has had no fever or chills.She is being discharged home today. Objective - Vital Signs Vital signs: Vital Signs Temp 97.9 F 04/03/21 08:00 Pulse 88 04/03/21 09:47 Resp 22 04/03/21 09:47 BP 122/65 04/03/21 08:00 Pulse Ox 95 04/03/21 09:34 Intake & Output 04/02/21 04/03/21 04/03/21 18:59 06:59 18:59 Intake Total 708 716 Balance 708 716 Weight 107.955 kg Intake: Oral 708 716 Other: Voiding Method Toilet Toilet Toilet # Voids 2 2 # Bowel Movements 2 - Exam GENERAL EXAM: Alert, very pleasant 55-year-old obese -[place] female, on 2 L of oxygen the pulse ox of 96% omfortable in no apparent distress. HEAD: Normocephalic/atraumatic. EYES: Normal reaction of pupils, equal size. Conjunctiva pink, sclera white. NOSE: Clear with pink turbinates. THROAT: No erythema or exudates. NECK: No masses, no JVD, no thyroid enlargement, no adenopathy. CHEST: No chest wall deformity. Symmetrical expansion. LUNGS: Equal air entry with diffuse wheezes CVS: Regular rate and rhythm, normal S1 and S2, no gallops, no murmurs, no rubs ABDOMEN: Soft, nontender. No hepatosplenomegaly, normal bowel sounds, no guarding or rigidity. EXTREMITIES: No clubbing, no edema, no cyanosis, 2+ pulses and upper and lower extremities. MUSCULOSKELETAL: Muscle strength and tone normal. SPINE: No scoliosis or deformity SKIN: No rashes CENTRAL NERVOUS SYSTEM: Alert and oriented -3. No focal deficits, tone is normal in all 4 extremities. PSYCHIATRIC: Alert and oriented -3. Appropriate affect. Intact judgment and insight. - Labs CBC & Chem 7: 04/01/21 10:37 04/01/21 10:37 Labs: Abnormal Lab Results - Last 24 Hours (Table) 04/02/21 04/02/21 04/03/21 Range/Units 16:29 20:39 06:56 POC Glucose (mg/dL) 117 H 240 H 119 H (75-99) mg/dL 04/03/21 Range/Units 11:51 POC Glucose (mg/dL) 109 H (75-99) mg/dL Microbiology - Last 24 Hours (Table) 03/27/21 05:57 Blood Culture - Final Blood No Growth after 144 hours 03/27/21 05:57 Blood Culture - Final Blood No Growth after 144 hours Assessment and Plan Plan: Assessment: #1. Acute exacerbation of COPD/and chronic bronchial asthma, chest x-ray showed cardiomegaly, with slightly increased interstitium. COVID-19 PCR was negative, pro-calcitonin level was low at 0.12 #2. Ongoing history of tobacco use with nicotine addiction #3. History of relapsing multiple sclerosis, patient follows with Dr. Hernandez, on Ocrevus #4. History of fibromyalgia #5. History of GERD #6. Hypertension #7. Prior history of pneumonia #8. 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 History of osteoporosis #10. History of restless leg syndrome #11. History of uterine cancer status post hysterectomy and subsequent radiation Plan: Paatient continues to improve still a bit congested, but improved Will need prednisone taper upon discharge, she completed a course of Augmentin CT chest has been reviewed, showing stable 0.6 mm nodule in right lower lobe, which will be followed in 6 months outpatient follow up with Dr. Rushing Patient wants to be considered for Trelegy inhaler once out of hospital, and this can be done on outpatient basis through pulmonary clinic I performed a history & physical examination of the patient and discussed their management with my nurse practitioner, Gay Hernandez. I reviewed the nurse practitioner's note and agree with the documented findings and plan of care. Lung sounds are positive for diffuse wheezes throughout the lung schwarz. The findings and the impression was discussed with the patient. I attest to the documentation by the nurse practitioner. Time with Patient: Less than 30
--- NOTE | 2021-04-03 13:15 | P.PN ---
Subjective Progress Note Date: 04/02/21 History of present illness This is a 55 year old female patient of Dr. Tabares and Dr. Ramirez with a past [facility] history of relapsing remitting multiple sclerosis, hypertension and hypertensive cardiovascular disease with left ventricular hypertrophy, history of GERD, multiple sclerosis, COPD, asthma, history of osteoporosis, uterine cancer status post surgery, chronic hypoxic respiratory failure on home O2 at 2 L nasal cannula, daily tobacco use, history of pseudotumor cerebri needing lumbar puncture in August 2020. She has had multiple admissions for acute exacerbation of her multiple sclerosis. Patient comes in with upper respiratory symptoms associated with shortness of breath for the past 1 day. She is also complaining of fever and chills body aches associated with cough and wheezing. Patient was noted to be hypoxic in the 84th on room air and was placed on 6 L of oxygen. Labs are reviewed patient has leukocytosis 0.8, hemoglobin 13.3 INR 0.9 sodium 138 potassium 3.5 BUN 8 creatinine 0.67 ferritin 249 meclizine 1.6 and liver enzymes are normal LDH was normal CRP is elevated at 5.7 proBNP 168. Pro- calcitonin 0.12, COVID negative. Chest x-ray suggestive of mild increase in interstitial densities. Imaging were limited due to patient's body habitus and portable settings. Patient examined sitting up in bed, appears to be comfortable, not using assessory muscles. Patient complains of sore spots in throat and closing of throat when she lies down. Patient aslo has significant abd apin with burning. She does prilosec but has no i mprovment. patient also noted to have elvated blood sugar since yesterdya. repeat hba1c and insulinsliding scale ordered. carafate added at 1 gm achs to help with abd pain. Nystatin added for 7 days to help with thrush. Patient is otherwise stable on current dose of steroids and augmentin. 03/29 patient examined at bedside is continues to have some discomfort involving headache abdominal pain generalized pain in all her extremities and body when she coughs. Patient is not complaining so much of sore throat today but she says it does come intermittently. Vitals are stable patient saturating at 93% on 2 L Labs are reviewed electrolytes are normal glucose is between 172 201 A1c 6.5. We will switch patient Solu-Medrol to oral prednisone today with possible discharge tomorrow 03/30 patient examined at bedside continues to have severe abdominal pain in the left upper quadrant worse on coughing. Patient's pain is relieved with 2 mg of morphine that was ordered. Patient appears to have a low change in cough. Labs reviewed patient has a leukocytosis of 13, potassium 3.4 BUN 19 creatinine 0.8. Liver enzymes are mildly elevated, CRP has improved from 5.7-2.4. CT abdomen and pelvis ordered since patient consists of persistent pain not controlled on oral medications. 03/31 patient examined bedside. Continues to have severe abdominal pain. CT abdomen and pelvis was obtained to rule out perforation. Patient does have moderate concentric S2 THICKENING for diffuse gastritis no suspicious for small bowel dilation. Mild fecal prominence noted the splenic flexure no acute findings noted. Patient informed about the results and suggested likely secondary to muscle spasm. Patient is currently on Robaxin, Toradol and morphine as needed for pain. She was upset that morphine is only as needed and not scheduled for her and she usually gets Dilor to her for pain control. Patient does go into coughing spells and has significant wheezing. But she is not short of breath at rest. Prednisone switch to Solu-Medrol as patient continues to wheeze despite being on medication. Patient gastritis currently treated with Protonix and Carafate. 04/01: Patient has significant cough with sputum production, complains of sinus drainage and head feels plugged. Patient is afebrile, heart rate 73, blood pressure 143/87, pulse ox 97% on room air. Repeat blood work reveals WBC 14, hemoglobin 13.4, platelet count 195. Creatinine 0.85. Blood sugars are running between 148 195. Magnesium 2.1. Lipase 86. Sputum culture is showing normal respiratory narendra. Patient is currently on oral antibiotics. Flonase changed to scheduled an Toradol added for pain. Patient is continued on Solu-Medrol 60 mg every 6 hours. Discussed smoking cessation and patient states she is trying to cut back. 04/02: is seen today in follow-up. She is currently on Solu-Medrol 60 every 6 hours which will be decreased to 40 every 8 and preparation for going home tomorrow. She is continued on Carafate and Protonix. Patient states she does have some coughing after she gets her nebulizer treatments and at bedtime. She's been afebrile, heart rate 89, blood pressure 123/81, pulse ox 93% on room air. Patient is complaining of shortness of breath that she had this morning which seems to be improved. She's been followed by pulmonary medicine area ROS Constitutional: endorses chills, fever, lethargic, headache Eyes: denies decreased vision, denies diplopia, denies discharge, denies pain Ears: deny: decreased hearing Ears, nose, mouth and throat: Denies dental pain, Denies headache, Denies nasal discharge, Denies nose pain, Throat pain has improved Cardiovascular: Denies chest pain, Denies decreased exercise tolerance, Denies edema, Denies high blood pressure, Denies irregular heart beat, Denies palpitations, Denies paroxysmal nocturnal dyspnea, Denies rapid heart beat, Denies shortness of breath Resp Endorses cough and congestion endorses cough with sputum production, Denies dyspnea, reports home oxygen, Denies wheezing Gastrointestinal: endorsess abdominal pain worsening, Denies change in bowel habits, Denies coffee ground emesis, Denies early satiety, Denies excessive gas, Denies heartburn, Denies hematemesis, Denies hematochezia, Denies loss of appetite, Denies nausea, Denies vomiting Genitourinary: Denies dysuria, Denies flank pain, Denies kidney stones, Denies menorrhagia, Denies urgency, Denies urinary frequency Musculoskeletal: Denies gait dysfunction, Denies limitation of motion, Denies morning stiffness, Denies muscle cramps Integumentary: Denies rash, Denies wounds, Denies brittle nails, Denies change in hair/nails, Denies darkening of skin Neurological: Denies balance difficulties, Denies change in speech, Denies double vision, Denies gait dysfunction, Denies loss of vision, Denies motor disturbance, Denies numbness, Denies paralysis, Denies paresthesias, Denies seizures Psychiatric: Denies anxiety, Denies depression Endocrine: Denies excessive sweating, Denies excessive thirst, noted high blood sugars, Denies palpitations Hematologic/Lymphatic: Denies easy bruising, Denies lymphadenopathy Physical exam - Constitutional General appearance: cooperative, no acute distress, obese no use of system muscles, cough noted - EENT Eyes: anicteric sclerae, PERRLA, normal appearance, white spots at the back of the throat ENT: hearing grossly normal - Neck Neck: no lymphadenopathy, normal ROM, no other, no rigidity, no stridor, no thyromegaly - Respiratory Respiratory: Positive wheezes noted bilaterally Cardiovascular Rhythm: regular Heart sounds: normal: S1, S2 Abnormal Heart Sounds: no systolic murmur, no diastolic murmur, no rub, no S3 Ga llop, no S4 Gallop, no click, no other - Gastrointestinal General gastrointestinal: normal bowel sounds, soft tender to palpate in the left lower quadrant - Integumentary Integumentary: no rash - Neurologic NeuNo gross motor deficit, generalized weakness bilateral lower extremities Musculoskeletal Musculoskeletal: gaitnot assessed strength equal bilaterally slightly decreased in bilateral lower extremity - Psychiatric Psychiatric: A&O x's 3, appropriate affect Assessment and plan Acute abd pain secondary to gastritis and muscular spasm. continue prilosec 40 mg po bID . carafate added at 1 gm achs. No improvement with Carafate, CT abdomen and pelvis suggestive of moderate gastritis. Morphine discontinued. Acute hypoxic respiratory failure secondary to COPD exacerbation with history of asthma continue DuoNeb as needed for shortness of breath 4 times a day. Budesonide added by pulmonary twice a day, continue Solu-Medrol crease to 40 mg every 8 hours. Augmentin 875 mg twice daily. Sputum culture. Mucinex twice daily. Uncontrolled hyperglycemia steroid induced, prediabetes in the past. HbA1c is 6.5 on sliding scale Acute on chronic headache with history of pseudo-tumor cerebri. Fioricet increased to 1 tab every 4 hours. Lumbar puncture performed previously in August 2020. Continue Diamox 500 mg by mouth twice daily Thrush - nystatin swish and swallow qid X 7 days tobacco abuse. Patient counseled on tobacco cessation and increased risk of CAD, CVA and malignancy. Nicotine patch ordered History of relapsing remitting MS not in acute exacerbation we will continue to follow patient's symptoms on daily basis if worsens will have him neurology cons ulted Chronic pain and occipital neurology under the care of Dr. James madrid gabapentin 803 times a day Percocet 7.53 times a day Hypertension and hypertensive cardiovascular disease continue hydr ochlorothiazide 25 mg by mouth daily, verapamil 120 mg by mouth daily Fibromyalgia continue gabapentin 800 mg 3 times a day Generalized anxiety disorder continue Ativan 1 mg every 8 hours with BuSpar 10 mg 3 times a day Obesity with possible obstructive sleep apnea and obesity hypoventilation sy ndrome currently stable Recurrent depression continue Paxil 40 mg by mouth daily Mild cognitive impairment on Namenda 10 mg twice daily Restless leg syndrome continue Requip 0.25 mg twice daily DVT prophylaxis heparin subcu GERD and GI prophylaxis continue Protonix 40 mg oral twice daily Code status full code DISCHARGE PLAN Home tomorrow Impression and plan of care have been directed as dictated by the signing physician. Elaine Nguyen nurse practitioner acting as scribe for signing physi shanique. Objective - Vital Signs Vital signs: Vital Signs Temp 98.2 F 04/02/21 07:56 Pulse 95 04/02/21 08:58 Resp 16 04/02/21 07:56 BP 123/81 04/02/21 07:56 Pulse Ox 92 L 04/02/21 08:30 Intake & Output 04/01/21 04/02/21 04/02/21 18:59 06:59 18:59 Intake Total 480 236 Balance 480 236 Intake: Oral 480 236 Other: Voiding Method Toilet Toilet Toilet # Voids 2 2 # Bowel Movements 2 - Labs CBC & Chem 7: 04/01/21 10:37 04/01/21 10:37 Labs: Abnormal Lab Results - Last 24 Hours (Table) 04/01/21 04/01/21 04/01/21 Range/Units 10:37 10:37 11:39 WBC 14.0 H (3.8-10.6) k/uL BUN 19 H (7-17) mg/dL Glucose 160 H (74-99) mg/dL POC Glucose (mg/dL) 148 H (75-99) mg/dL AST 51 H (14-36) U/L ALT 72 H (4-34) U/L 04/01/21 04/01/21 04/02/21 Range/Units 16:45 20:42 07:22 WBC (3.8-10.6) k/uL BUN (7-17) mg/dL Glucose (74-99) mg/dL POC Glucose (mg/dL) 200 H 247 H 160 H (75-99) mg/dL AST (14-36) U/L ALT (4-34) U/L Microbiology - Last 24 Hours (Table) 03/27/21 05:57 Blood Culture - Final Blood No Growth after 144 hours 03/27/21 05:57 Blood Culture - Final Blood No Growth after 144 hours
[2021-04-03 13:44] VITALS: RESP 20
[2021-04-03 15:50] VITALS: BP 134/72; PULSE 98; TEMP 98
== END 2021-04-03 16:28 | disposition home health service (06) | DRG 190 ==
LOC: EC 05:38 → 4SSUR 06:55
PROVIDERS: ADMIT Internal Medicine; ATTEND Internal Medicine
DX: J44.1 Chronic obstructive pulmonary disease with (acute) exacerbation (principal); J96.21 Acute and chronic respiratory failure with hypoxia; B37.0 Candidal stomatitis; F33.9 Major depressive disorder, recurrent, unspecified; H46.9 Unspecified optic neuritis; D72.829 Elevated white blood cell count, unspecified; F17.210 Nicotine dependence, cigarettes, uncomplicated; F40.240 Claustrophobia; F41.1 Generalized anxiety disorder; G35 Multiple sclerosis; G25.81 Restless legs syndrome; G31.84 Mild cognitive impairment of uncertain or unknown etiology; G89.29 Other chronic pain; H54.7 Unspecified visual loss; H91.90 Unspecified hearing loss, unspecified ear; K21.9 Gastro-esophageal reflux disease without esophagitis; I11.9 Hypertensive heart disease without heart failure; M79.7 Fibromyalgia; M81.0 Age-related osteoporosis without current pathological fracture; K29.70 Gastritis, unspecified, without bleeding; Z20.822 Contact with and (suspected) exposure to COVID-19; Z79.51 Long term (current) use of inhaled steroids; Z79.82 Long term (current) use of aspirin; Z79.899 Other long term (current) drug therapy; Z82.41 Family history of sudden cardiac death; Z82.49 Family history of ischemic heart disease and other diseases of the circulatory system; Z85.42 Personal history of malignant neoplasm of other parts of uterus; Z87.01 Personal history of pneumonia (recurrent); Z90.710 Acquired absence of both cervix and uterus; R51.9 Headache, unspecified; M62.838 Other muscle spasm
CPT/HCPCS: 36415; 71045; 71260; 74177; 80053; 82728; 83036; 83605; 83615; 83690; 83735; 83880; 84145; 84484; 85025; 85027; 85610; 85652; 85730; 86140; 87040; 87070; 87205; 87635; 93005; 94640; 94760; 99285

== ENCOUNTER 2021-06-15 13:06 | Inpatient (IN) | payer MEDICARE, OTHER ==
[2021-06-15] MEDS ORDERED: SODIUM CHLORIDE 0.9% 1,000 ML IV STA (13:29)
[2021-06-15] MEDS ORDERED: ONDANSETRON 4 MG/2 ML VIAL IVP STA (13:29)
[2021-06-15] MEDS ORDERED: MORPHINE SULFATE 4 MG/ML SYRINGE IV STA (13:29)
--- NOTE | 2021-06-15 13:54 | ED ---
General Adult HPI - General Chief complaint: Headache Stated complaint: Headache Time Seen by Provider: 06/15/21 13:16 Source: patient, EMS, RN notes reviewed, old records reviewed Limitations: no limitations - History of Present Illness Initial comments: 55-year-old female presenting for evaluation of cough, mild dyspnea, myalgia and headache. Patient has history of chronic headaches. She has had symptoms the past 2 days in association with her additional symptoms of cough and mild dyspnea. She's had no vomiting or diarrhea. No dysuria. No focal numbness or weakness. - Related Data Home Medications Medication Instructions Recorded Confirmed Aspirin 81 mg PO DAILY 02/20/14 03/27/21 LORazepam [Ativan] 1 mg PO TID PRN 02/20/14 03/27/21 Verapamil HCl [Calan] 120 mg PO DAILY 02/20/14 03/27/21 Butalb/APAP/Caff 50-325-40Mg 1 tab PO Q8H PRN 03/25/17 03/27/21 [Fioricet 50-325-40] Budesonide/Formoterol Fumarate 2 puff INHALATION RT-BID 05/06/18 03/27/21 [Symbicort 160-4.5 Mcg Inhaler] Cholecalciferol [Vitamin D3 (25 50 mcg PO DAILY 05/07/18 03/27/21 Mcg = 1000 Iu)] Multivitamins, Thera [Multivitamin 1 tab PO DAILY 05/07/18 03/27/21 (formulary)] Pantoprazole Sodium [Protonix] 40 mg PO BID 10/31/18 03/27/21 Ipratropium-Albuterol Nebulize 3 ml INHALATION RT-QID PRN 11/22/18 03/27/21 [Duoneb 0.5 mg-3 mg/3 ml Soln] Memantine [Namenda] 10 mg PO BID 11/22/18 03/27/21 Montelukast [Singulair] 10 mg PO DAILY 11/22/18 03/27/21 Fluticasone Nasal [place] [Flonase 2 spr EA NOSTRIL DAILY PRN 04/28/19 03/27/21 Nasal [place]] Methocarbamol [Robaxin-750] 750 mg PO TID 04/28/19 03/27/21 Albuterol Sulfate [Ventolin HFA] 1 - 2 puff INHALATION RT-QID PRN 08/09/19 03/27/21 Ascorbic Acid [Vitamin C] 1,000 mg PO DAILY 01/30/20 03/27/21 Docusate [Colace] 100 mg PO DAILY PRN 01/30/20 03/27/21 Zinc Gluconate [Zinc] 25 mg PO DAILY 01/30/20 03/27/21 Diclofenac Sodium Gel [Voltaren 2 gm TOPICAL QID PRN #0 03/26/20 03/27/21 Gel] Elderberry Fruit and Flower [Black 1 cap PO DAILY 06/14/20 03/27/21 Elderberry 575 mg Cap] Turmeric Root Extract [Turmeric] 500 mg PO DAILY 06/14/20 03/27/21 Gabapentin 800 mg PO TID 08/21/20 03/27/21 Topiramate [Topamax] 100 mg PO BID 08/21/20 03/27/21 oxyCODONE-APAP 7.5-325MG [Percocet 1 tab PO TID 10/30/20 03/27/21 7.5-325 mg] acetaZOLAMIDE [Diamox Sequels] 500 mg PO BID 03/27/21 03/27/21 Previous Rx's Medication Instructions Recorded rOPINIRole HCL [Requip] 0.25 mg PO TID #90 tab 01/31/18 PARoxetine [Paxil] 40 mg PO DAILY tab 05/09/18 hydroCHLOROthiazide [Hydrodiuril] 25 mg PO DAILY tab 11/26/18 Folic Acid 1 mg PO DAILY #30 tab 05/02/19 busPIRone HCl [Buspar] 10 mg PO TID #90 tab 05/02/19 Budesonide [Pulmicort] 1 mg INHALATION RT-BID #120 ml 04/03/21 Nicotine 14Mg/24Hr Patch [Habitrol] 1 patch TRANSDERM DAILY #30 patch 04/03/21 Nystatin 100,000 Unit/ml Susp 500,000 unit PO QID #140 ml 04/03/21 [Mycostatin Oral Susp] Sucralfate [Carafate] 1 gm PO ACHS #120 tab 04/03/21 guaiFENesin-DM 600/30MG [Mucinex 2 each PO Q12HR #30 tablet 04/03/21 Dm] predniSONE 0 mg PO DIRECTED #40 tab 04/03/21 Allergies Allergy/AdvReac Type Severity Reaction Status Date / Time baclofen AdvReac URINARY Verified 06/15/21 13:28 ISSUES dexamethasone [From Decadron] AdvReac "THOMPSON Verified 06/15/21 13:28 SKIN"/DEHYDRATION Review of Systems ROS Statement: Those systems with pertinent positive or pertinent negative responses have been documented in the HPI. ROS Other: All systems not noted in ROS Statement are negative. Past Medical History Past Medical History: Asthma, Cancer, COPD, Eye Disorder, Fibromyalgia, GERD /Reflux, Hearing Disorder / Deafness, Hypertension, Memory Impairment, Musculoskeletal Disorder, Neurologic Disorder, Osteoarthritis (OA), Pneumonia, Syncope Additional Past Medical History / Comment(s): MS relapsing/remitting type, chronic bilateral eye pain/optic neuritis/ poor vision, cataracts bilaterally, chronic occipital neuralgia, osteoporosis, RLS, chronic hypoxic respiratory failure with home oxygen 2L/NC prn, chronic bronchitis, immunocompromised, elevated blood sugar with steroid use, uterine cancer with hysterectomy/radiation, heart murmur, mild cognitive impairment, chronic vertigo, falls, rheumatic fever as child, tinnitis bilaterally, allergic rhiniti s, trigeminal neuralgia. History of Any Multi-Drug Resistant Organisms: None Reported Past Surgical History: Bladder Surgery, Heart Catheterization, Hysterectomy, Tubal Ligation Additional Past Surgical History / Comment(s): Nerve blocks, bladder suspension, fibroid removal. PA[facility] Past Anesthesia/Blood Transfusion Reactions: No Reported Reaction, Postoperative Nausea & Vomiting (PONV) Additional Past Anesthesia/Blood Transfusion Reaction / Comment(s): mild claustrophobia Past Psychological History: Anxiety, Depression Smoking Status: Current every day smoker Past Alcohol Use History: Occasional Past Drug Use History: None Reported - Past Family History Mother Family Medical History: CVA/TIA, Myocardial Infarction ([place]) Additional Family Medical History / Comment(s): Mother is alive at age 75 with history of brain aneurysm, 3 strokes and 2 myocardial infarctions. Brain aneurysms run on mother's side of family Father Family Medical History: Coronary Artery Disease (CAD) Additional Family Medical History / Comment(s): Father at age 72 from a cardiac arrest thought to be due to a myocardial infarction. Sister(s) Family Medical History: No Reported History Additional Family Medical History / Comment(s): Patient has 2 sisters with no major medical problems. Patient does not have any brothers. Patient has 2 adult children with no major medical problems. Patient is only family member with MS. General Exam Limitations: no limitations General appearance: alert, in no apparent distress Head exam: Present: atraumatic, normocephalic Eye exam: Present: normal appearance, PERRL ENT exam: Present: mucous membranes dry Neck exam: Present: normal inspection. Absent: tenderness, meningismus Respiratory exam: Present: wheezes, rales, decreased breath sounds. Absent: respiratory distress Cardiovascular Exam: Present: normal rhythm, tachycardia GI/Abdominal exam: Present: soft. Absent: distended, tenderness, guarding, rebound Extremities exam: Present: normal inspection, normal capillary refill. Absent: pedal edema, calf tenderness Neurological exam: Present: alert, oriented X3, CN II-XII intact. Absent: motor sensory deficit Psychiatric exam: Present: normal affect, normal mood Skin exam: Present: warm, dry, intact. Absent: cyanosis, diaphoretic Course Vital Signs 06/15/21 06/15/21 06/15/21 13:29 13:34 14:07 Temperature 100.4 F H Pulse Rate 104 H 92 Respiratory 18 20 Rate Blood Pressure 140/94 118/88 O2 Sat by Pulse 85 L 98 99 Oximetry 06/15/21 06/15/21 06/15/21 15:17 16:37 16:52 Temperature Pulse Rate 67 64 83 Respiratory 20 20 Rate Blood Pressure 114/82 116/79 O2 Sat by Pulse 97 98 Oximetry 06/15/21 17:00 Temperature Pulse Rate 85 Respiratory Rate Blood Pressure O2 Sat by Pulse Oximetry EKG Findings - EKG Comments: EKG Findings:: EKG: Sinus tachycardia rate of 110, artifact in V2. IL interval 175, QRS duration 84, QTC 465, no ST segment elevation. Medical Decision Making - Medical Decision Making 55-year-old female who presents for cough, dyspnea, headache and myalgia. Patient states she just does not feel well. My initial concern was for coronavirus however she does test negative. She also tells negative for influenza. She has a chronic mild leukocytosis which is at baseline. Chest x- rays negative for large focal pneumonia. Head CT was performed given this headache complaint however this is also negative. She has an elevated CO2 consistent with chronic CO2 retention and a mild hypokalemia 3.1. She's given steroids, albuterol, Atrovent and pain medication emergency Department reevaluation she is still in moderate respiratory distress with tachypnea and hypoxia. She will require admission for COPD exacerbation. She'll be placed on steroids. Pulmonology will be placed on consult. Case has been discussed with Dr. Minor who will admit. - Lab Data Result diagrams: 06/15/21 13:48 06/15/21 13:48 Lab Results 06/15/21 06/15/21 06/15/21 Range/Units 13:48 13:48 13:48 WBC 14.2 H (3.8-10.6) k/uL RBC 4.30 (3.80-5.40) m/uL Hgb 13.5 (11.4-16.0) gm/dL Hct 44.6 (34.0-46.0) % MCV 103.6 H (80.0-100.0) fL MCH 31.5 (25.0-35.0) pg MCHC 30.4 L (31.0-37.0) g/dL RDW 13.7 (11.5-15.5) % Plt Count 238 (150-450) k/uL MPV 8.9 Neutrophils % 74 % Lymphocytes % 18 % Monocytes % 6 % Eosinophils % 0 % Basophils % 0 % Neutrophils # 10.5 H (1.3-7.7) k/uL Lymphocytes # 2.5 (1.0-4.8) k/uL Monocytes # 0.8 (0-1.0) k/uL Eosinophils # 0.1 (0-0.7) k/uL Basophils # 0.1 (0-0.2) k/uL Hypochromasia Moderate Macrocytosis Slight PT 11.3 (9.0-12.0) sec INR 1.0 (<1.2) APTT 21.4 L (22.0-30.0) sec Sodium (137-145) mmol/L Potassium (3.5-5.1) mmol/L Chloride (98-107) mmol/L Carbon Dioxide (22-30) mmol/L Anion Gap mmol/L BUN (7-17) mg/dL Creatinine (0.52-1.04) mg/dL Est GFR (CKD-EPI)AfAm (>60 ml/min/1.73 sqM) Est GFR (CKD-EPI)NonAf (>60 ml/min/1.73 sqM) Glucose (74-99) mg/dL Plasma Lactic Acid Adalid (0.7-2.0) mmol/L Calcium (8.4-10.2) mg/dL Magnesium (1.6-2.3) mg/dL Total Bilirubin (0.2-1.3) mg/dL AST (14-36) U/L ALT (4-34) U/L Alkaline Phosphatase (38-126) U/L Total Protein (6.3-8.2) g/dL Albumin (3.5-5.0) g/dL Urine Color Urine Appearance (Clear) Urine pH (5.0-8.0) Ur Specific [place] (1.001-1.035) Urine Protein (Negative) Urine Glucose (UA) (Negative) Urine Ketones (Negative) Urine Blood (Negative) Urine Nitrite (Negative) Urine Bilirubin (Negative) Urine Urobilinogen (<2.0) mg/dL Ur Leukocyte Esterase (Negative) Urine RBC (0-5) /hpf Urine WBC (0-5) /hpf Ur Squamous Epith Cells (0-4) /hpf Urine Bacteria (None) /hpf Hyaline Casts (0-2) /lpf Urine Mucus (None) /hpf Coronavirus (PCR) Not Detected (Not Detectd) Influenza Type A RNA (Not Detectd) Influenza Type B (PCR) (Not Detectd) 06/15/21 06/15/21 06/15/21 Range/Units 13:48 13:48 14:02 WBC (3.8-10.6) k/uL RBC (3.80-5.40) m/uL Hgb (11.4-16.0) gm/dL Hct (34.0-46.0) % MCV (80.0-100.0) fL MCH (25.0-35.0) pg MCHC (31.0-37.0) g/dL RDW (11.5-15.5) % Plt Count (150-450) k/uL MPV Neutrophils % % Lymphocytes % % Monocytes % % Eosinophils % % Basophils % % Neutrophils # (1.3-7.7) k/uL Lymphocytes # (1.0-4.8) k/uL Monocytes # (0-1.0) k/uL Eosinophils # (0-0.7) k/uL Basophils # (0-0.2) k/uL Hypochromasia Macrocytosis PT (9.0-12.0) sec INR (<1.2) APTT (22.0-30.0) sec Sodium 139 (137-145) mmol/L Potassium 3.1 L (3.5-5.1) mmol/L Chloride 97 L (98-107) mmol/L Carbon Dioxide 34 H (22-30) mmol/L Anion Gap 8 mmol/L BUN 11 (7-17) mg/dL Creatinine 0.59 (0.52-1.04) mg/dL Est GFR (CKD-EPI)AfAm >90 (>60 ml/min/1.73 sqM) Est GFR (CKD-EPI)NonAf >90 (>60 ml/min/1.73 sqM) Glucose 118 H (74-99) mg/dL Plasma Lactic Acid Adalid 1.1 (0.7-2.0) mmol/L Calcium 8.8 (8.4-10.2) mg/dL Magnesium 1.7 (1.6-2.3) mg/dL Total Bilirubin 0.6 (0.2-1.3) mg/dL AST 30 (14-36) U/L ALT 29 (4-34) U/L Alkaline Phosphatase 81 (38-126) U/L Total Protein 5.8 L (6.3-8.2) g/dL Albumin 3.6 (3.5-5.0) g/dL Urine Color Yellow Urine Appearance Cloudy H (Clear) Urine pH 5.5 (5.0-8.0) Ur Specific [place] 1.014 (1.001-1.035) Urine Protein Negative (Negative) Urine Glucose (UA) Negative (Negative) Urine Ketones Negative (Negative) Urine Blood Negative (Negative) Urine Nitrite Negative (Negative) Urine Bilirubin Negative (Negative) Urine Urobilinogen <2.0 (<2.0) mg/dL Ur Leukocyte Esterase Small H (Negative) Urine RBC 1 (0-5) /hpf Urine WBC 8 H (0-5) /hpf Ur Squamous Epith Cells 10 H (0-4) /hpf Urine Bacteria Few H (None) /hpf Hyaline Casts 1 (0-2) /lpf Urine Mucus Rare H (None) /hpf Coronavirus (PCR) (Not Detectd) Influenza Type A RNA (Not Detectd) Influenza Type B (PCR) (Not Detectd) 06/15/21 Range/Units 15:17 WBC (3.8-10.6) k/uL RBC (3.80-5.40) m/uL Hgb (11.4-16.0) gm/dL Hct (34.0-46.0) % MCV (80.0-100.0) fL MCH (25.0-35.0) pg MCHC (31.0-37.0) g/dL RDW (11.5-15.5) % Plt Count (150-450) k/uL MPV Neutrophils % % Lymphocytes % % Monocytes % % Eosinophils % % Basophils % % Neutrophils # (1.3-7.7) k/uL Lymphocytes # (1.0-4.8) k/uL Monocytes # (0-1.0) k/uL Eosinophils # (0-0.7) k/uL Basophils # (0-0.2) k/uL Hypochromasia Macrocytosis PT (9.0-12.0) sec INR (<1.2) APTT (22.0-30.0) sec Sodium (137-145) mmol/L Potassium (3.5-5.1) mmol/L Chloride (98-107) mmol/L Carbon Dioxide (22-30) mmol/L Anion Gap mmol/L BUN (7-17) mg/dL Creatinine (0.52-1.04) mg/dL Est GFR (CKD-EPI)AfAm (>60 ml/min/1.73 sqM) Est GFR (CKD-EPI)NonAf (>60 ml/min/1.73 sqM) Glucose (74-99) mg/dL Plasma Lactic Acid Adalid (0.7-2.0) mmol/L Calcium (8.4-10.2) mg/dL Magnesium (1.6-2.3) mg/dL Total Bilirubin (0.2-1.3) mg/dL AST (14-36) U/L ALT (4-34) U/L Alkaline Phosphatase (38-126) U/L Total Protein (6.3-8.2) g/dL Albumin (3.5-5.0) g/dL Urine Color Urine Appearance (Clear) Urine pH (5.0-8.0) Ur Specific [place] (1.001-1.035) Urine Protein (Negative) Urine Glucose (UA) (Negative) Urine Ketones (Negative) Urine Blood (Negative) Urine Nitrite (Negative) Urine Bilirubin (Negative) Urine Urobilinogen (<2.0) mg/dL Ur Leukocyte Esterase (Negative) Urine RBC (0-5) /hpf Urine WBC (0-5) /hpf Ur Squamous Epith Cells (0-4) /hpf Urine Bacteria (None) /hpf Hyaline Casts (0-2) /lpf Urine Mucus (None) /hpf Coronavirus (PCR) (Not Detectd) Influenza Type A RNA Not Detected (Not Detectd) Influenza Type B (PCR) Not Detected (Not Detectd) Disposition Clinical Impression: COPD exacerbation, Migraine headache, Hypoxia, COPD with exacerbation Disposition: ADMITTED IP TO THIS [facility] Condition: Stable Is patient prescribed a controlled substance at d/c from ED?: No Referrals: Kilo Tabares MD [Primary Care Provider] - 1-2 days Decision to Admit Reason: Admit from EC Decision Date: 06/15/21 Decision Time: 17:46
[2021-06-15 14:12] LABS: ALT 29 U/L (4-34); AST 30 U/L (14-36); African American GFR (CKD) >90 (>60 ml/min/1.73 sqM); Albumin 3.6 g/dL (3.5-5.0); Alkaline Phosphatase 81 U/L (38-126); Anion Gap 8 mmol/L; Blood Urea Nitrogen 11 mg/dL (7-17); Calcium 8.8 mg/dL (8.4-10.2); Carbon Dioxide 34 mmol/L (22-30); Chloride 97 mmol/L (98-107); Glucose 118 mg/dL (74-99); Magnesium 1.7 mg/dL (1.6-2.3); Non-African American GFR(CKD) >90 (>60 ml/min/1.73 sqM); Potassium 3.1 mmol/L (3.5-5.1); Sodium 139 mmol/L (137-145); Total Bilirubin 0.6 mg/dL (0.2-1.3); Total Protein 5.8 g/dL (6.3-8.2)
[2021-06-15 14:34] LABS: Prothrombin Time 11.3 sec (9.0-12.0)
[2021-06-15 14:35] LABS: Basophils # (A) 0.1 k/uL (0-0.2); Basophils % (A) 0 %; Eosinophils # (A) 0.1 k/uL (0-0.7); Eosinophils % (A) 0 %; HCT 44.6 % (34.0-46.0); HGB 13.5 gm/dL (11.4-16.0); Hypochromasia Moderate; Lymphocytes # (A) 2.5 k/uL (1.0-4.8); Lymphocytes % (A) 18 %; MCH 31.5 pg (25.0-35.0); MCHC 30.4 g/dL (31.0-37.0); MCV 103.6 fL (80.0-100.0); Macrocytosis Slight; Mean Platelet Volume 8.9; Monocytes # (A) 0.8 k/uL (0-1.0); Monocytes % (A) 6 %; Neutrophils # (A) 10.5 k/uL (1.3-7.7); Neutrophils % (A) 74 %; Platelet Count 238 k/uL (150-450); RDW 13.7 % (11.5-15.5); WBC 14.2 k/uL (3.8-10.6)
[2021-06-15 14:37] LABS: Partial Thromboplastin Time 21.4 sec (22.0-30.0)
[2021-06-15 14:51] LABS: Appearance,Urine Cloudy (Clear); Bacteria,Urine Few /hpf; Bilirubin,Urine Negative (Negative); Blood,Urine Negative (Negative); Color,Urine Yellow; Glucose,Urine (UA) Negative (Negative); Hyaline Casts,Urine 1 /lpf (0-2); Ketones,Urine Negative (Negative); Leukocyte Esterase,Urine Small (Negative); Mucus,Urine Rare /hpf; Nitrite,Urine Negative (Negative); PH, Urine 5.5 (5.0-8.0); Protein,Urine Negative (Negative); RBC,Urine 1 /hpf (0-5); Specific Gravity,Urine 1.014 (1.001-1.035); Squamous Epithelial Cell,Urine 10 /hpf (0-4); Urobilinogen,Urine <2.0 mg/dL (<2.0); WBC,Urine 8 /hpf (0-5)
--- NOTE | 2021-06-15 15:00 | XR ---
EXAMINATION TYPE: XR chest 2V DATE OF EXAM: 06/15/2021 COMPARISON: 03/27/2021 HISTORY: Weakness TECHNIQUE: 2 views FINDINGS: There is no heart failure nor confluent pneumonic infiltrate. Costophrenic angles are clear . There are chest leads. Bony thorax is intact IMPRESSION: No active cardiopulmonary disease. Borderline cardiomegaly. No change.
--- NOTE | 2021-06-15 15:04 | CT ---
EXAMINATION TYPE: CT brain wo con DATE OF EXAM: 06/15/2021 COMPARISON: 08/24/2020 HISTORY: Weakness. CT DLP: 1121.4 mGycm Automated exposure control for dose reduction was used. Images of the brain obtained without contrast. Ventricles have normal size. There is no mass effect or midline shift. There is no sign of intracrani al hemorrhage. Calvarium is intact. There is normal aeration of the mastoid sinuses. There is no evid ence of cerebral edema. IMPRESSION: Normal unenhanced head CT scan.
[2021-06-15] MEDS ORDERED: IPRATROPIUM-ALBUTEROL 3 ML NEB INHALATION STA (16:35)
[2021-06-15] MEDS ORDERED: methylPREDNISolone SOD SUCCI 125 MG/2 ML VIAL IV STA (16:35)
[2021-06-15] MEDS ORDERED: AZITHROMYCIN 500 MG in SODIUM CHLORIDE 0.9% 250 ML IVPB STA (17:13)
[2021-06-15] MEDS ORDERED: cefTRIAXone IN SWFI 1,000 MG/10 ML SYRINGE IVP STA (17:13)
[2021-06-15] MEDS ORDERED: KETOROLAC 15 MG/ML 1 ML VIAL IM STA (17:40)
[2021-06-15] MEDS ORDERED: SODIUM CHLORIDE 0.9% 500 ML 500 ML IV ONE (17:40)
[2021-06-15] MEDS ORDERED: IPRATROPIUM-ALBUTEROL 3 ML NEB INHALATION PRN (17:46)
[2021-06-15] MEDS ORDERED: POTASSIUM CHLORIDE ER 20 MEQ TAB.ER PO STA (17:47)
[2021-06-15] MEDS: IPRATROPIUM-ALBUTEROL 3 ML NEB INHALATION SCH (19:33)
[2021-06-15] MEDS: methylPREDNISolone SOD SUCCI 125 MG/2 ML VIAL IV SCH (23:53)
[2021-06-16] MEDS: oxyCODONE-APAP 7.5-325MG 1 EACH TAB PO PRN ×3 (03:30→17:03)
[2021-06-16] MEDS: methylPREDNISolone SOD SUCCI 125 MG/2 ML VIAL IV SCH ×3 (05:59→18:06)
[2021-06-16] MEDS: IPRATROPIUM-ALBUTEROL 3 ML NEB INHALATION SCH ×4 (07:31→19:08)
[2021-06-16] MEDS ORDERED: ALBUTEROL NEBULIZED 2.5 MG/3 ML INHALATION PRN (08:48)
[2021-06-16] MEDS ORDERED: guaiFENesin-DM 600/30MG 1 EACH TAB.ER.12H PO PRN (08:48)
[2021-06-16] MEDS ORDERED: DOCUSATE 100 MG CAP PO PRN (08:48)
[2021-06-16] MEDS ORDERED: FLUTICASONE 50MCG/SPRAY NASAL 16GM EA NOSTRIL PRN (08:48)
[2021-06-16] MEDS ORDERED: oxyCODONE-APAP 7.5-325MG 1 EACH TAB PO PRN (08:48)
--- NOTE | 2021-06-16 10:02 | P.HPIM ---
History of Present Illness H&P Date: 06/16/21 History of present illness This is a 55 year old female patient of Dr. Tabares and Dr. Ramirez with a past medical history of relapsing remitting multiple sclerosis, hypertension and hypertensive cardiovascular disease with left ventricular hypertrophy, history of GERD, multiple sclerosis, COPD, asthma, history of osteoporosis, uterine cancer status post surgery, chronic hypoxic respiratory failure on home O2 at 2 L nasal cannula, daily tobacco use, history of pseudotumor cerebri needing lumbar puncture in August 2020. She has had multiple admissions for acute exacerbation of her multiple sclerosis. Patient comes in with upper respiratory symptoms associated with shortness of breath for the past 2 day. She is also complaining of cough, mild shortness of breath, fatigue, and headache. Patient does have history of chronic headaches which she is followed with Dr. Ramirez. Patient denies any vomiting or diarrhea. No focal numbness or weakness. At this time patient is found resting comfortably in bed in no acute distress. Patient continues to complain of headache and body aches. Patient does have mild shortness of breath which is exacerbated with movement. At home she was not on any steroids. She was started on Solu-Medrol in the hospital. Patient remains afebrile, heart rate 87, respirations 16 blood pressure 120/67 pulse ox 95% on 2 L. Chest x-ray shows no active cardiopulmonary disease. Borderline cardiomegaly. No change. Brain CT normal unenhanced head CT scan. Review of systems Constitutional: endorses chills, fever, lethargic, headache Eyes: denies decreased vision, denies diplopia, denies discharge, denies pain Ears: deny: decreased hearing Ears, nose, mouth and throat: Denies dental pain, Denies headache, Denies nasal discharge, Denies nose pain Cardiovascular: Denies chest pain, Denies decreased exercise tolerance, Denies edema, Denies high blood pressure, Denies irregular heart beat, Denies palpitat ions, Denies paroxysmal nocturnal dyspnea, Denies rapid heart beat, Denies shortness of breath Resp Endorses cough and congestion endorses cough with sputum, Denies dyspnea, Denies home oxygen, Denies wheezing Gastrointestinal: Denies abdominal pain, Denies change in bowel habits, Denies coffee ground emesis, Denies early satiety, Denies excessive gas, Denies heartburn, Denies hematemesis, Denies hematochezia, Denies loss of appetite, Denies nausea, Denies vomiting Genitourinary: Denies dysuria, Denies flank pain, Denies kidney stones, Denies menorrhagia, Denies urgency, Denies urinary frequency Musculoskeletal: Denies gait dysfunction, Denies limitation of motion, Denies morning stiffness, Denies muscle cramps Integumentary: Denies rash, Denies wounds, Denies brittle nails, Denies change in hair/nails, Denies darkening of skin Neurological: Denies balance difficulties, Denies change in speech, Denies double vision, Denies gait dysfunction, Denies loss of vision, Denies motor disturbance, Denies numbness, Denies paralysis, Denies paresthesias, Denies seizures Psychiatric: Denies anxiety, Denies depression Endocrine: Denies excessive sweating, Denies excessive thirst, Denies high blood sugars, Denies palpitations Hematologic/Lymphatic: Denies easy bruising, Denies lymphadenopathy Social history Patient started smoking at age 18 and has smoked on and off since then. She is currently smoking 1 pack per day. No illicit drug use. No alcohol use. Family history Mother is alive at age 74 with history of brain aneurysm, 3 strokes and 2 myocardial infarctions. Brain aneurysms run on mother's side of family. Father at age 72 from a cardiac arrest thought to be due to a myocardial infarction. Patient has 2 sisters with no major medical problems. Patient does not have any brothers. Patient has 2 adult children with no major medical problems. Patient is only family member with MS. Physical exam: General Appearance: Alert, cooperative, no distress, this is a 55-year-old female appears stated age. Patient is found sitting up in bed. Neck HEENT: Supple, no lymphadenopathy, no thyroid enlargement, no carotid bruits. Lungs: Clear to auscultation without crackles or wheezes no rhonchi, no deformity. Chest Wall: Chest wall normal expansion with deep inspiration no tenderness and no deformity was found on exam, no costochondral pain or discomfort. Heart: Regular rate and rhythm, S1, S2 normal, no murmur, rub or gallop. Back: Symmetric, no curvature, ROM normal, no CVA tenderness. Abdomen: Soft, non-tender, no rebound or rigidity, no hepatosplenomegaly. Extremities: Extremities normal, atraumatic, no cyanosis or edema. Pulses: 2+ and symmetric. Skin: Skin color, texture, tugor normal, no rashes or lesions. Neurologic: Alert oriented x3 cranial nerves II through XII intact, no motor deficit, no abnormal balance or gait Assessment and plan 1. COPD exacerbation with history of asthma continue DuoNeb as needed for shortness of breath 4 times a day. Budesonide added by pulmonary twice a day with for [place] twice a day. Continue Solu-Medrol at 60 IV every 6 hours. Mucinex twice daily. Fluticasone 2 sprays each nostril daily as needed, singular 10 mg by mouth daily Consult pulmonology 2 acute on chronic headache with history of pseudo-tumor cerebri. Fioricet increased to 1 tab every 8 hours. Lumbar puncture performed previously in August 2020. Percocet 7.5/325 one tablet every 6 hours as needed 3.tobacco abuse. Patient counseled on tobacco cessation and increased risk of CAD, CVA and malignancy. Nicotine patch ordered 4.history of relapsing remitting MS not in acute exacerbation we will continue to follow patient's symptoms on daily basis if worsens will have him neurology consulted 5 chronic pain and occipital neurology under the care of Dr. James madrid gabapentin 803 times a day Percocet 7.53 times a day 6.hypertension and hypertensive cardiovascular disease continue hydrochlorothiazide 25 mg by mouth daily, verapamil 120 mg by mouth daily 7.fibromyalgia continue gabapentin 800 mg 3 times a day, Robaxin 750mg TID PRN 8. generalized anxiety disorder Ativan 1 mg 3 times a day as needed BuSpar 10 mg 3 times a day as needed 9. obesity with possible obstructive sleep apnea and obesity hypoventilation syndrome currently stable 10. recurrent depression continue Paxil 40 mg by mouth daily 11. mild cognitive impairment on Namenda 10 mg twice daily 12. Restless leg syndrome continue Requip 0.25 mg twice daily 13. DVT prophylaxis heparin subcu 14. GERD and GI prophylaxis continue Protonix 40 mg oral twice daily, carafate 1gm POI ACHS 15. COVID-19 negative. Patient is hospitalized during a pandemic Code status: full code Patient will be admitted for a minimum 2 nights day. Discharge plan: To be determined more than likely home on Thursday/Thursday Impression and plan of care have been directed as dictated by the signing physician. Izabella Tavares nurse practitioner acting as scribe for signing p erik. Past Medical History Past Medical History: Asthma, Cancer, COPD, Eye Disorder, Fibromyalgia, GERD/Reflux, Hearing Disorder / Deafness, Hypertension, Memory Impairment, Musculoskeletal Disorder, Neurologic Disorder, Osteoarthritis (OA), Pneumonia, Syncope Additional Past Medical History / Comment(s): MS relapsing/remitting type, chronic bilateral eye pain/optic neuritis/ poor vision, cataracts bilaterally, chronic occipital neuralgia, osteoporosis, RLS, chronic hypoxic respiratory failure with home oxygen 2L/NC prn, chronic bronchitis, immunocompromised, elevated blood sugar with steroid use, uterine cancer with hyste rectomy/radiation, heart murmur, mild cognitive impairment, chronic vertigo, falls, rheumatic fever as child, tinnitis bilaterally, allergic rhinitis, trigeminal neuralgia. History of Any Multi-Drug Resistant Organisms: None Reported Past Surgical History: Bladder Surgery, Heart Catheterization, Hysterectomy, Tubal Ligation Additional Past Surgical History / Comment(s): Nerve blocks, bladder suspension, fibroid removal. PA[facility] Past Anesthesia/Blood Transfusion Reactions: No Reported Reaction, Postoperative Nausea & Vomiting (PONV) Additional Past Anesthesia/Blood Transfusion Reaction / Comment(s): mild claustrophobia Past Psychological History: Anxiety, Depression Additional Psychological History / Comment(s): Pt resides alone. She uses a cane or walker or wheelchair. She has a private hire nurse aide who organizers her meds in a demand planner but pt takes her own meds, aide assists her with her ADLs. This aide also prepares meals/shopping and cleaning. Pt does not drive, she has her friends take her to appts or sometimes her aide drives her. Smoking Status: Current every day smoker Past Alcohol Use History: Occasional Additional Past Alcohol Use History / Comment(s): Patient started smoking at age 18 and has smoked on and off since then. She is currently smoking 1/2 pack per day. TRYING TO QUIT Past Drug Use History: None Reported Additional Drug Use History / Comment(s): CBD oils for her knee pain. - Past Family History Mother Family Medical History: CVA/TIA, Myocardial Infarction (VT) Additional Family Medical History / Comment(s): Mother is alive at age 75 with history of brain aneurysm, 3 strokes and 2 myocardial infarctions. Brain aneurysms run on mother's side of family Father Family Medical History: Coronary Artery Disease (CAD) Additional Family Medical History / Comment(s): Father at age 72 from a cardiac arrest thought to be due to a myocardial infarction. Sister(s) Family Medical History: No Reported History Additional Family Medical History / Comment(s): Patient has 2 sisters with no major medical problems. Patient does not have any brothers. Patient has 2 adult children with no major medical problems. Patient is only family member with MS. Medications and Allergies Home Medications Medication Instructions Recorded Confirmed Type Aspirin 81 mg PO DAILY 02/20/14 06/15/21 History LORazepam [Ativan] 1 mg PO TID PRN 02/20/14 06/15/21 History Verapamil HCl [Calan] 120 mg PO DAILY 02/20/14 06/15/21 History Butalb/APAP/Caff 50-325-40Mg 1 tab PO Q8H PRN 03/25/17 06/15/21 History [Fioricet 50-325-40] rOPINIRole HCL [Requip] 0.25 mg PO TID #90 tab 01/31/18 06/15/21 Rx Multivitamins, Thera [Multivitamin 1 tab PO DAILY 05/07/18 06/15/21 History (formulary)] Pantoprazole Sodium [Protonix] 40 mg PO BID 10/31/18 06/15/21 History Memantine [Namenda] 10 mg PO BID 11/22/18 06/15/21 History Montelukast [Singulair] 10 mg PO DAILY 11/22/18 06/15/21 History hydroCHLOROthiazide [Hydrodiuril] 25 mg PO DAILY tab 11/26/18 06/15/21 Rx Fluticasone Nasal [place] [Flonase 2 spr EA NOSTRIL DAILY PRN 04/28/19 06/15/21 History Nasal [place]] Methocarbamol [Robaxin-750] 750 mg PO TID PRN 04/28/19 06/15/21 History Folic Acid 1 mg PO DAILY #30 tab 05/02/19 06/15/21 Rx Albuterol Sulfate [Ventolin HFA] 1 - 2 puff INHALATION RT-QID PRN 08/09/19 06/15/21 History Ascorbic Acid [Vitamin C] 1,000 mg PO DAILY 01/30/20 06/15/21 History Docusate [Colace] 100 mg PO DAILY PRN 01/30/20 06/15/21 History Zinc Gluconate [Zinc] 50 mg PO DAILY 01/30/20 06/15/21 History Diclofenac Sodium Gel [Voltaren 2 gm TOPICAL QID PRN #0 03/26/20 06/15/21 History Gel] Elderberry Fruit and Flower [Black 1 cap PO DAILY 06/14/20 06/15/21 History Elderberry 575 mg Cap] Turmeric Root Extract [Turmeric] 500 mg PO DAILY 06/14/20 06/15/21 History Gabapentin 800 mg PO TID 08/21/20 06/15/21 History Topiramate [Topamax] 100 mg PO BID 08/21/20 06/15/21 History oxyCODONE-APAP 7.5-325MG [Percocet 1 tab PO TID PRN 10/30/20 06/15/21 History 7.5-325 mg] Sucralfate [Carafate] 1 gm PO ACHS #120 tab 04/03/21 06/15/21 Rx Budesonide [Pulmicort] 1 mg INHALATION RT-BID PRN 06/15/21 06/15/21 History Cholecalciferol [Vitamin D3 (25 50 mcg PO DAILY 06/15/21 06/15/21 History Mcg = 1000 Iu)] Fluticasone/Umeclidin/Vilanter 1 puff INHALATION RT-DAILY 06/15/21 06/15/21 History [Trelegy Ellipta 200-62.5-25] Nicotine 14Mg/24Hr Patch [Habitrol] 1 patch TRANSDERM DAILY PRN 06/15/21 06/15/21 History Nystatin 100,000 Unit/ml Susp 500,000 unit PO QID PRN 06/15/21 06/15/21 History [Mycostatin Oral Susp] PARoxetine HCL [Paxil] 40 mg PO DAILY 06/15/21 06/15/21 History busPIRone HCl [Buspar] 10 mg PO TID PRN 06/15/21 06/15/21 History guaiFENesin-DM 600/30MG [Mucinex 2 tab PO Q12HR PRN 06/15/21 06/15/21 History Dm] Allergies Allergy/AdvReac Type Severity Reaction Status Date / Time baclofen AdvReac URINARY Verified 06/15/21 19:19 ISSUES dexamethasone [From Decadron] AdvReac "THOMPSON Verified 06/15/21 19:19 SKIN"/DEHYDRATION Physical Exam Vitals: Vital Signs Temp Pulse Pulse Resp BP BP Pulse Ox 06/16/21 07:45 83 06/16/21 07:31 78 06/16/21 02:00 98.5 F 87 16 120/67 95 06/15/21 22:06 98.4 F 88 18 142/79 96 06/15/21 19:40 80 18 06/15/21 19:37 98.9 F 81 20 112/75 97 06/15/21 19:33 82 18 06/15/21 17:00 85 06/15/21 16:52 83 06/15/21 16:37 64 20 116/79 98 06/15/21 15:17 67 20 114/82 97 06/15/21 14:07 92 20 118/88 99 06/15/21 13:34 98 06/15/21 13:29 100.4 F H 104 H 18 140/94 85 L Intake and Output 06/15/21 06/16/21 06/16/21 22:59 06:59 14:59 Intake Total 240 Balance 240 Intake: Oral 240 Other: Weight 104.326 kg Results CBC & Chem 7: 06/15/21 13:48 06/15/21 13:48 Labs: Abnormal Lab Results - Last 24 Hours (Table) 06/15/21 06/15/21 06/15/21 Range/Units 13:48 13:48 13:48 WBC 14.2 H (3.8-10.6) k/uL MCV 103.6 H (80.0-100.0) fL MCHC 30.4 L (31.0-37.0) g/dL Neutrophils # 10.5 H (1.3-7.7) k/uL APTT 21.4 L (22.0-30.0) sec Potassium 3.1 L (3.5-5.1) mmol/L Chloride 97 L (98-107) mmol/L Carbon Dioxide 34 H (22-30) mmol/L Glucose 118 H (74-99) mg/dL Total Protein 5.8 L (6.3-8.2) g/dL Urine Appearance (Clear) Ur Leukocyte Esterase (Negative) Urine WBC (0-5) /hpf Ur Squamous Epith Cells (0-4) /hpf Urine Bacteria (None) /hpf Urine Mucus (None) /hpf 06/15/21 Range/Units 14:02 WBC (3.8-10.6) k/uL MCV (80.0-100.0) fL MCHC (31.0-37.0) g/dL Neutrophils # (1.3-7.7) k/uL APTT (22.0-30.0) sec Potassium (3.5-5.1) mmol/L Chloride (98-107) mmol/L Carbon Dioxide (22-30) mmol/L Glucose (74-99) mg/dL Total Protein (6.3-8.2) g/dL Urine Appearance Cloudy H (Clear) Ur Leukocyte Esterase Small H (Negative) Urine WBC 8 H (0-5) /hpf Ur Squamous Epith Cells 10 H (0-4) /hpf Urine Bacteria Few H (None) /hpf Urine Mucus Rare H (None) /hpf Thrombosis Risk Factor Assmnt - Choose All That Apply Any of the Below Risk Factors Present?: Yes Each Factor Represents 1 point: Abnormal pulmonary function (COPD), Age 41-60 years, Obesity (BMI >25) Other Risk Factors: No Other congenital or acquired thrombophilia - If yes, enter type in comment: No Thrombosis Risk Factor Assessment Total Risk Factor Score: 3 Thrombosis Risk Factor Assessment Level: Moderate Risk
[2021-06-16] MEDS: BUTALB/APAP/CAFF 50-325-40MG TAB PO PRN ×2 (10:05→16:55)
[2021-06-16] MEDS: LORazepam 1 MG TAB PO PRN ×2 (10:05→17:03)
[2021-06-16] MEDS: hydroCHLOROthiazide 25 MG TAB PO SCH (10:07)
[2021-06-16] MEDS: VERAPAMIL 40 MG TAB PO SCH (10:07)
[2021-06-16] MEDS: CHOLECALCIFEROL 25 MCG (1000 IU) TABLET PO SCH (10:07)
[2021-06-16] MEDS: MULTIVITAMINS, THERA 1 EACH TAB PO SCH (10:07)
[2021-06-16] MEDS: GABAPENTIN 400 MG CAP PO SCH ×3 (10:08→21:36)
[2021-06-16] MEDS: FOLIC ACID 1 MG TAB PO SCH (10:08)
[2021-06-16] MEDS: ASCORBIC ACID 500 MG TAB PO SCH (10:08)
[2021-06-16] MEDS: ASPIRIN 81 MG PO SCH (10:08)
[2021-06-16] MEDS: MEMANTINE 10 MG TAB PO SCH ×2 (10:09→21:37)
[2021-06-16] MEDS: PARoxetine 20 MG TAB PO SCH (10:09)
[2021-06-16] MEDS: PANTOPRAZOLE 40 MG TABLET PO SCH ×2 (10:09→16:55)
[2021-06-16] MEDS: TOPIRAMATE 100 MG TAB PO SCH ×2 (10:09→21:36)
[2021-06-16] MEDS: MONTELUKAST 10 MG TAB PO SCH (11:07)
[2021-06-16] MEDS: methocarbamoL 750 MG TAB PO PRN ×2 (11:07→21:53)
--- NOTE | 2021-06-16 12:58 | P.CNPUL ---
History of Present Illness Consult date: 06/16/21 Requesting physician: Zan Minor Reason for consult: COPD Chief complaint: Cough, headache, shortness of breath History of present illness: This is a 55-year-old female with history of multiple sclerosis, hypertension, chronic obstructive pulmonary disease, chronic hypoxic rest or with failure, usually on 2 L at home, history of pseudotumor cerebri, patient follows up with Dr. Ramirez regarding her MS, and her pseudotumor cerebri. Patient was admitted today mostly with 2 days history of cough, shortness of breath, headache, denies any fever denies any chills, denies any hemoptysis. Chest x-ray showed no evidence of pneumonia. And no significant pulmonary process noted on the chest x-ray. Actually the patient seems to be more concerned about her intermittent headaches more so than her pulmonary symptoms. CBC showed leukocytosis with WBC count of 14.2 hemoglobin 15.5. Electrolytes are normal with low potassium of 3.1 being corrected, bicarb is 34. Patient had negative testing for COVID-19 infection. And on physical examination she had basically slightly diminished breath sound bilaterally, no crackles nor rhonchi no wheezes. Review of Systems Constitutional: Mostly headache, weakness, but no weight loss, no fever no chills. Eyes: Negative. Ears, patient describes fullness in her ears. Cardiovascular: Negative. Resp cough, some shortness of breath, no wheezing. Gastrointestinal: Negative. Genitourinary: Negative. Musculoskeletal: Negative. Integumentary: Negative. Neurological: Chronic and intermittent headaches as noted in HPI. Psychiatric: Negative. Endocrine: Negative. Hematologic/Lymphatic: Negative. Past Medical History Past Medical History: Asthma, Cancer, COPD, Eye Disorder, Fibromyalgia, GERD/Reflux, Hearing Disorder / Deafness, Hypertension, Memory Impairment, Musculoskeletal Disorder, Neurologic Disorder, Osteoarthritis (OA), Pneumonia, Syncope Additional Past Medical History / Comment(s): MS relapsing/remitting type, chronic bilateral eye pain/optic neuritis/ poor vision, cataracts bilaterally, chronic occipital neuralgia, osteoporosis, RLS, chronic hypoxic respiratory failure with home oxygen 2L/NC prn, chronic bronchitis, immunocompromised, elev ated blood sugar with steroid use, uterine cancer with hysterectomy/radiation, heart murmur, mild cognitive impairment, chronic vertigo, falls, rheumatic fever as child, tinnitis bilaterally, allergic rhinitis, trigeminal neuralgia. History of Any Multi-Drug Resistant Organisms: None Reported Past Surgical History: Bladder Surgery, Heart Catheterization, Hysterectomy, Tubal Ligation Additional Past Surgical History / Comment(s): Nerve blocks, bladder suspension, fibroid removal. PAIN [facility] Past Anesthesia/Blood Transfusion Reactions: No Reported Reaction, Postoperative Nausea & Vomiting (PONV) Additional Past Anesthesia/Blood Transfusion Reaction / Comment(s): mild claustrophobia Past Psychological History: Anxiety, Depression Additional Psychological History / Comment(s): Pt resides alone. She uses a cane or walker or wheelchair. She has a private hire nurse aide who organizers her meds in a project planner but pt takes her own meds, aide assists her with her ADLs. This aide also prepares meals/shopping and cleaning. Pt does not drive, she has her friends take her to appts or sometimes her aide drives her. Smoking Status: Current every day smoker Past Alcohol Use History: Occasional Additional Past Alcohol Use History / Comment(s): Patient started smoking at age 18 and has smoked on and off since then. She is currently smoking 1/2 pack per day. TRYING TO QUIT Past Drug Use History: None Reported Additional Drug Use History / Comment(s): CBD oils for her knee pain. - Past Family History Mother Family Medical History: CVA/TIA, Myocardial Infarction (CT) Additional Family Medical History / Comment(s): Mother is alive at age 75 with history of brain aneurysm, 3 strokes and 2 myocardial infarctions. Brain aneurysms run on mother's side of family Father Family Medical History: Coronary Artery Disease (CAD) Additional Family Medical History / Comment(s): Father at age 72 from a cardiac arrest thought to be due to a myocardial infarction. Sister(s) Family Medical History: No Reported History Additional Family Medical History / Comment(s): Patient has 2 sisters with no major medical problems. Patient does not have any brothers. Patient has 2 adult children with no major medical problems. Patient is only family member with MS. Medications and Allergies Home Medications Medication Instructions Recorded Confirmed Type Aspirin 81 mg PO DAILY 02/20/14 06/15/21 History LORazepam [Ativan] 1 mg PO TID PRN 02/20/14 06/15/21 History Verapamil HCl [Calan] 120 mg PO DAILY 02/20/14 06/15/21 History Butalb/APAP/Caff 50-325-40Mg 1 tab PO Q8H PRN 03/25/17 06/15/21 History [Fioricet 50-325-40] rOPINIRole HCL [Requip] 0.25 mg PO TID #90 tab 01/31/18 06/15/21 Rx Multivitamins, Thera [Multivitamin 1 tab PO DAILY 05/07/18 06/15/21 History (formulary)] Pantoprazole Sodium [Protonix] 40 mg PO BID 10/31/18 06/15/21 History Memantine [Namenda] 10 mg PO BID 11/22/18 06/15/21 History Montelukast [Singulair] 10 mg PO DAILY 11/22/18 06/15/21 History hydroCHLOROthiazide [Hydrodiuril] 25 mg PO DAILY tab 11/26/18 06/15/21 Rx Fluticasone Nasal [place] [Flonase 2 spr EA NOSTRIL DAILY PRN 04/28/19 06/15/21 History Nasal [place]] Methocarbamol [Robaxin-750] 750 mg PO TID PRN 04/28/19 06/15/21 History Folic Acid 1 mg PO DAILY #30 tab 05/02/19 06/15/21 Rx Albuterol Sulfate [Ventolin HFA] 1 - 2 puff INHALATION RT-QID PRN 08/09/19 06/15/21 History Ascorbic Acid [Vitamin C] 1,000 mg PO DAILY 01/30/20 06/15/21 History Docusate [Colace] 100 mg PO DAILY PRN 01/30/20 06/15/21 History Zinc Gluconate [Zinc] 50 mg PO DAILY 01/30/20 06/15/21 History Diclofenac Sodium Gel [Voltaren 2 gm TOPICAL QID PRN #0 03/26/20 06/15/21 History Gel] Elderberry Fruit and Flower [Black 1 cap PO DAILY 06/14/20 06/15/21 History Elderberry 575 mg Cap] Turmeric Root Extract [Turmeric] 500 mg PO DAILY 06/14/20 06/15/21 History Gabapentin 800 mg PO TID 08/21/20 06/15/21 History Topiramate [Topamax] 100 mg PO BID 08/21/20 06/15/21 History oxyCODONE-APAP 7.5-325MG [Percocet 1 tab PO TID PRN 10/30/20 06/15/21 History 7.5-325 mg] Sucralfate [Carafate] 1 gm PO ACHS #120 tab 04/03/21 06/15/21 Rx Budesonide [Pulmicort] 1 mg INHALATION RT-BID PRN 06/15/21 06/15/21 History Cholecalciferol [Vitamin D3 (25 50 mcg PO DAILY 06/15/21 06/15/21 History Mcg = 1000 Iu)] Fluticasone/Umeclidin/Vilanter 1 puff INHALATION RT-DAILY 06/15/21 06/15/21 History [Trelegy Ellipta 200-62.5-25] Nicotine 14Mg/24Hr Patch [Habitrol] 1 patch TRANSDERM DAILY PRN 06/15/21 06/15/21 History Nystatin 100,000 Unit/ml Susp 500,000 unit PO QID PRN 06/15/21 06/15/21 History [Mycostatin Oral Susp] PARoxetine HCL [Paxil] 40 mg PO DAILY 06/15/21 06/15/21 History busPIRone HCl [Buspar] 10 mg PO TID PRN 06/15/21 06/15/21 History guaiFENesin-DM 600/30MG [Mucinex 2 tab PO Q12HR PRN 06/15/21 06/15/21 History Dm] Allergies Allergy/AdvReac Type Severity Reaction Status Date / Time baclofen AdvReac URINARY Verified 06/15/21 19:19 ISSUES dexamethasone [From Decadron] AdvReac "THOMPSON Verified 06/15/21 19:19 SKIN"/DEHYDRATION Physical Exam Vitals: Vital Signs Temp Pulse Pulse Resp BP BP Pulse Ox 06/16/21 11:20 84 06/16/21 10:22 126/74 06/16/21 07:45 83 06/16/21 07:31 78 06/16/21 02:00 98.5 F 87 16 120/67 95 06/15/21 22:06 98.4 F 88 18 142/79 96 06/15/21 19:40 80 18 06/15/21 19:37 98.9 F 81 20 112/75 97 06/15/21 19:33 82 18 06/15/21 17:00 85 06/15/21 16:52 83 06/15/21 16:37 64 20 116/79 98 06/15/21 15:17 67 20 114/82 97 06/15/21 14:07 92 20 118/88 99 06/15/21 13:34 98 06/15/21 13:29 100.4 F H 104 H 18 140/94 85 L Intake and Output 06/15/21 06/16/21 06/16/21 22:59 06:59 14:59 Intake Total 240 Balance 240 Intake: Oral 240 Other: Weight 104.326 kg General Appearance: Revealed a 55-year-old female in no distress. Neck HEENT: [place], EOMI, anicteric, no neck masses no JVD. lungs: Symmetrical chest expansion, diminished breath sounds at the bases no crackles or rhonchi or wheezes. Chest Wall:Symmetrical chest expansion, no chest wall deformity noted tenderness. \\ Abdomen: Obese soft nontender no megaly no rebound. Cardiac: Normal S1 and S2, no S3 gallop. ExtreColon No clubbing edema or cyanosis.good pulses bilaterally Skin: no rashes. neurologic: Alert oriented 3 no gross focal deficits. psychiatric: Normal mood affect and normal mental status examination. Results - Laboratory Findings CBC and BMP: 06/15/21 13:48 06/15/21 13:48 PT/INR, D-dimer PT 11.3 sec (9.0-12.0) 06/15/21 13:48 INR 1.0 (<1.2) 06/15/21 13:48 Abnormal lab findings: Abnormal Labs 06/15/21 06/15/21 06/15/21 13:48 13:48 13:48 WBC 14.2 H MCV 103.6 H MCHC 30.4 L Neutrophils # 10.5 H APTT 21.4 L Potassium 3.1 L Chloride 97 L Carbon Dioxide 34 H Glucose 118 H Total Protein 5.8 L Urine Appearance Ur Leukocyte Esterase Urine WBC Ur Squamous Epith Cells Urine Bacteria Urine Mucus 06/15/21 14:02 WBC MCV MCHC Neutrophils # APTT Potassium Chloride Carbon Dioxide Glucose Total Protein Urine Appearance Cloudy H Ur Leukocyte Esterase Small H Urine WBC 8 H Ur Squamous Epith Cells 10 H Urine Bacteria Few H Urine Mucus Rare H - Diagnostic Findings Chest x-ray: image reviewed (Relatively normal chest x-ray.) Assessment and Plan Assessment: Impression: Acute on chronic hypoxic respiratory failure Acute exacerbation of COPD, relatively mild exacerbation with minimal pulmonary symptoms. Chronic headaches secondary to pseudotumor cerebri Tobacco dependence syndrome History of MS, follows up with Dr. Ramirez Chronic pain syndrome. Benign essential hypertension. Fibromyalgia. Generalized anxiety disorder. Obesity. History of restless leg syndrome. Recommendation: Agree with the present treatment plan Continue bronchodilators, No need for empiric antibiotics Consider discharge planning in the next 24 hours. Patient seems to be more concerned about her neurological symptoms than her pulmonary symptoms. Time with Patient: Greater than 30
[2021-06-16] MEDS: SUCRALFATE 1 GM TAB PO SCH ×3 (13:01→21:36)
[2021-06-16] MEDS: busPIRone HCl 10 MG TAB PO PRN (17:03)
[2021-06-16] MEDS: BUDESONIDE 1 MG/2 ML NEBU INHALATION PRN (19:09)
[2021-06-16] MEDS: HEPARIN SODIUM,PORCINE/PF 5,000 UNIT/0.5 ML SYRINGE SQ SCH (21:37)
[2021-06-16] MEDS: MELATONIN 3 MG TABLET PO SCH (22:02)
[2021-06-17] MEDS: LORazepam 1 MG TAB PO PRN ×3 (00:34→20:16)
[2021-06-17] MEDS: methylPREDNISolone SOD SUCCI 125 MG/2 ML VIAL IV SCH ×2 (00:34→06:09)
[2021-06-17] MEDS: busPIRone HCl 10 MG TAB PO PRN ×2 (00:34→11:06)
[2021-06-17] MEDS: oxyCODONE-APAP 7.5-325MG 1 EACH TAB PO PRN ×4 (00:34→20:16)
[2021-06-17] MEDS: BUTALB/APAP/CAFF 50-325-40MG TAB PO PRN ×3 (00:34→20:16)
[2021-06-17] MEDS: methocarbamoL 750 MG TAB PO PRN ×3 (06:09→23:20)
[2021-06-17] MEDS: IPRATROPIUM-ALBUTEROL 3 ML NEB INHALATION SCH ×4 (08:13→19:44)
[2021-06-17] MEDS: BUDESONIDE 1 MG/2 ML NEBU INHALATION PRN ×2 (08:13→19:44)
[2021-06-17] MEDS: CHOLECALCIFEROL 25 MCG (1000 IU) TABLET PO SCH (10:52)
[2021-06-17] MEDS: VERAPAMIL 40 MG TAB PO SCH (10:52)
[2021-06-17] MEDS: ASPIRIN 81 MG PO SCH (10:52)
[2021-06-17] MEDS: GABAPENTIN 400 MG CAP PO SCH ×3 (10:52→23:19)
[2021-06-17] MEDS: ASCORBIC ACID 500 MG TAB PO SCH (10:52)
[2021-06-17] MEDS: MONTELUKAST 10 MG TAB PO SCH (10:53)
[2021-06-17] MEDS: MEMANTINE 10 MG TAB PO SCH ×2 (10:53→20:16)
[2021-06-17] MEDS: MULTIVITAMINS, THERA 1 EACH TAB PO SCH (10:53)
[2021-06-17] MEDS: hydroCHLOROthiazide 25 MG TAB PO SCH (10:53)
[2021-06-17] MEDS: SUCRALFATE 1 GM TAB PO SCH ×4 (10:53→20:16)
[2021-06-17] MEDS: PANTOPRAZOLE 40 MG TABLET PO SCH ×2 (10:53→18:02)
[2021-06-17] MEDS: NICOTINE 14MG/24HR PATCH TRANSDERM PRN (10:54)
[2021-06-17] MEDS: TOPIRAMATE 100 MG TAB PO SCH ×2 (10:54→20:16)
[2021-06-17] MEDS: HEPARIN SODIUM,PORCINE/PF 5,000 UNIT/0.5 ML SYRINGE SQ SCH ×2 (10:54→20:15)
[2021-06-17] MEDS: PARoxetine 20 MG TAB PO SCH (10:54)
[2021-06-17 10:58] LABS: Basophils # (A) 0.01 X 10*3/uL (0.00-0.10); Basophils % (A) 0.1 %; Eosinophils # (A) 0 X 10*3/uL (0.04-0.35); Eosinophils % (A) 0 %; HCT 42.1 % (37.2-46.3); HGB 12.7 g/dL (12.0-15.0); Immature Grans, Automated 0.5 %; Lymphocytes # (A) 1.04 X 10*3/uL (0.90-5.00); Lymphocytes % (A) 6.7 %; MCH 31.2 pg (27.0-32.0); MCHC 30.2 g/dL (32.0-37.0); MCV 103.4 fL (80.0-97.0); Mean Platelet Volume 10.8 fL (9.5-12.2); Monocytes # (A) 0.25 X 10*3/uL (0.20-1.00); Monocytes % (A) 1.6 %; NRBC Per 100 WBC 0.2 /100 WBCS (0.0-0.0); Neutrophils # (A) 14.15 X 10*3/uL (1.80-7.70); Neutrophils % (A) 91.1 %; Platelet Count 242 X 10*3/uL (140-440); RBC 4.07 X 10*6/uL (4.10-5.20); RDW 13.4 % (11.5-14.5); WBC 15.53 X 10*3/uL (4.50-10.00)
[2021-06-17] MEDS ORDERED: KETOROLAC 30 MG/ML 1 ML VIAL IVP STA (11:00)
[2021-06-17 11:17] LABS: African American GFR (CKD) 118.1 (60.0-200.0); Albumin/Globulin Ratio 2.5 (1.60-3.17); Anion Gap 13.3 mmol/L (10.00-18.00); BUN/Creat Ratio 12.17 Ratio (12.00-20.00); Blood Urea Nitrogen 7.3 mg/dL (9.0-27.0); Calcium 9.3 mg/dL (8.7-10.3); Carbon Dioxide 26.7 mmol/L (20.0-27.5); Globulin 1.6 g/dL (1.6-3.3); Non-African American GFR(CKD) 101.9 (60.0-200.0); Potassium 4.1 mmol/L (3.5-5.5); Total Bilirubin 0.3 mg/dL (0.30-1.20); Total Protein 5.6 g/dL (6.2-8.2)
--- NOTE | 2021-06-17 12:28 | P.PN ---
Subjective Progress Note Date: 06/17/21 History of present illness This is a 55 year old female patient of Dr. Tabares and Dr. Ramirez with a past medical history of relapsing remitting multiple sclerosis, hypertension and hy pertensive cardiovascular disease with left ventricular hypertrophy, history of GERD, multiple sclerosis, COPD, asthma, history of osteoporosis, uterine cancer status post surgery, chronic hypoxic respiratory failure on home O2 at 2 L nasal cannula, daily tobacco use, history of pseudotumor cerebri needing lumbar puncture in August 2020. She has had multiple admissions for acute exacerbation of her multiple sclerosis. Patient comes in with upper respiratory symptoms associated with shortness of breath for the past 2 day. She is also complaining of cough, mild shortness of breath, fatigue, and headache. Patient does have history of chronic headaches which she is followed with Dr. Ramirez. Patient denies any vomiting or diarrhea. No focal numbness or weakness. At this time patient is found resting comfortably in bed in no acute distress. Patient continues to complain of headache and body aches. Patient does have mild shortness of breath which is exacerbated with movement. At home she was not on any steroids. She was started on Solu-Medrol in the hospital. Patient remains afebrile, heart rate 87, respirations 16 blood pressure 120/67 pulse ox 95% on 2 L. Chest x-ray shows no active cardiopulmonary disease. Borderline cardiomegaly. No change. Brain CT normal unenhanced head CT scan. 06/17: Patient has been seen by pulmonary medicine with recommendations to continue bronchodilators, no need for empiric antibiotics and consider discharge planning. Patient has been afebrile, heart rate in the 60s and 70s, blood pressure 121/71, pulse ox 90% on 2 L nasal cannula. vehicle monitor technician will be discontinued. Patient is complaining of significant headache and she has Per cocet in place we will add in Toradol every 6 hours and Diamox. Patient is on IV Solu-Medrol which will be decreased to 40 mg every 8 hours and plan for oral prednisone this morning. Repeat blood work reveals WBC 15.5, hemoglobin 12.7, platelet count 242. Electrolytes are normal. BUNs 7.3 and creatinine 0.6. Blood sugar 180. Plan to monitor patient overnight and discharged home tomorrow. Review of systems Constitutional: endorses chills, fever, NO lethargic, reports headache Eyes: denies decreased vision, denies diplopia, denies discharge, denies pain Ears: deny: decreased hearing Ears, nose, mouth and throat: Denies dental pain, Denies headache, Denies nasal discharge, Denies nose pain Cardiovascular: Denies chest pain, Denies decreased exercise tolerance, Denies edema, Denies high blood pressure, Denies irregular heart beat, Denies palpitations, Denies paroxysmal nocturnal dyspnea, Denies rapid heart beat, Denies shortness of breath Resp Endorses cough and congestion endorses cough with sputum, Denies dyspnea, Denies home oxygen, Denies wheezing Gastrointestinal: Denies abdominal pain, Denies change in bowel habits, Denies coffee ground emesis, Denies early satiety, Denies excessive gas, Denies heartburn, Denies hematemesis, Denies hematochezia, Denies loss of appetite, Denies nausea, Denies vomiting Genitourinary: Denies dysuria, Denies flank pain, Denies kidney stones, Denies menorrhagia, Denies urgency, Denies urinary frequency Musculoskeletal: Denies gait dysfunction, Denies limitation of motion, Denies morning stiffness, Denies muscle cramps Integumentary: Denies rash, Denies wounds, Denies brittle nails, Denies change in hair/nails, Denies darkening of skin Neurological: Denies balance difficulties, Denies change in speech, Denies double vision, Denies gait dysfunction, Denies loss of vision, Denies motor disturbance, Denies numbness, Denies paralysis, Denies paresthesias, Denies seizures Psychiatric: Denies anxiety, Denies depression Endocrine: Denies excessive sweating, Denies excessive thirst, Denies high blood sugars, Denies palpitations Hematologic/Lymphatic: Denies easy bruising, Denies lymphadenopathy Physical exam: General Appearance: Alert, cooperative, no distress, this is a 55-year-old female appears stated age. Patient is found sitting up in bed. Neck HEENT: Supple, no lymphadenopathy, no thyroid enlargement, no carotid bruits. Lungs: Clear to auscultation without crackles or wheezes no rhonchi, no deformity. Chest Wall: Chest wall normal expansion with deep inspiration no tenderness and no deformity was found on exam, no costochondral pain or discomfort. Heart: Regular rate and rhythm, S1, S2 normal, no murmur, rub or gallop. Back: Symmetric, no curvature, ROM normal, no CVA tenderness. Abdomen: Soft, non-tender, no rebound or rigidity, no hepatosplenomegaly. Extremities: Extremities normal, atraumatic, no cyanosis or edema. Pulses: 2+ and symmetric. Skin: Skin color, texture, tugor normal, no rashes or lesions. Neurologic: Alert oriented x3 cranial nerves II through XII intact, no motor deficit, no abnormal balance or gait Assessment and plan 1. COPD exacerbation with history of asthma continue DuoNeb as needed for shortness of breath 4 times a day. Budesonide added by pulmonary twice a day. Continue Solu-Medrol dorothy decreased to 40 mg every 8 rs. Mucinex twice daily. Fluticasone 2 sprays each nostril daily as needed, singular 10 mg by mouth daily Consult pulmonology 2 acute on chronic headache with history of pseudo-tumor cerebri. Fioricet increased to 1 tab every 8 hours. Lumbar puncture performed previously in Aug. Percocet 7.5/325 one tablet every 6 hours as needed area Toradol 15 mg IV every 6 hours added and Diamox 250 mg daily, decrease Solu-Medrol. 3.tobacco abuse. Patient counseled on tobacco cessation and increased risk of CAD, CVA and malignancy. Nicotine patch ordered 4.history of relapsing remitting MS not in acute exacerbation we will continue to follow patient's symptoms on daily basis if worsens will have him neurology consulted 5 chronic pain and occipital neurology under the care of Dr. James madrid gabapentin 803 times a day Percocet 7.53 times a day 6.hypertension and hypertensive cardiovascular disease continue hydrochlorothiazide 25 mg by mouth daily, verapamil 120 mg by mouth daily 7.fibromyalgia continue gabapentin 800 mg 3 times a day, Robaxin 750mg TID PRN 8. generalized anxiety disorder Ativan 1 mg 3 times a day as needed BuSpar 10 mg 3 times a day as needed 9. obesity with possible obstructive sleep apnea and obesity hypoventilation syndrome currently stable 10. recurrent depression continue Paxil 40 mg by mouth daily 11. mild cognitive impairment on Namenda 10 mg twice daily 12. Restless leg syndrome continue Requip 0.25 mg twice daily 13. DVT prophylaxis heparin subcu 14. GERD and GI prophylaxis continue Protonix 40 mg oral twice daily, carafate 1gm POI ACHS 15. COVID-19 negative. Patient is hospitalized during a pandemic Code status: full code Patient will be admitted for a minimum 2 nights day. Discharge plan home Impression and plan of care have been directed as dictated by the signing physician. Elaine Nguyen nurse practitioner acting as scribe for signing physician. Objective - Vital Signs Vital signs: Vital Signs Temp 98.4 F 06/17/21 05:00 Pulse 68 06/17/21 08:39 Resp 18 06/17/21 05:00 BP 121/71 06/17/21 05:00 Pulse Ox 98 06/17/21 05:00 Intake & Output 06/16/21 06/17/21 06/17/21 18:59 06:59 18:59 Intake Total 860 400 Balance 860 400 Intake: Oral 860 400 Other: # Voids 2 2 - Labs CBC & Chem 7: 06/17/21 07:40 06/17/21 07:40
[2021-06-17] MEDS: acetaZOLAMIDE 250 MG TAB PO SCH (13:53)
[2021-06-17] MEDS: KETOROLAC 30 MG/ML 1 ML VIAL IVP SCH ×3 (13:53→23:20)
[2021-06-17] MEDS: FOLIC ACID 1 MG TAB PO SCH (13:53)
--- NOTE | 2021-06-17 14:05 | P.PN ---
Subjective Progress Note Date: 06/17/21 Principal diagnosis: Headache, cough, shortness of breath This is a 55-year-old female with history of multiple sclerosis, hypertension, chronic obstructive pulmonary disease, chronic hypoxic rest or with failure, usually on 2 L at home, history of pseudotumor cerebri, patient follows up with Dr. Ramirez regarding her MS, and her pseudotumor cerebri. Patient was admitted today mostly with 2 days history of cough, shortness of breath, headache, denies any fever denies any chills, denies any hemoptysis. Chest x-ray showed no evidence of pneumonia. And no significant pulmonary process noted on the chest x-ray. Actually the patient seems to be more concerned about her intermittent headaches more so than her pulmonary symptoms. CBC showed leukocytosis with WBC count of 14.2 hemoglobin 15.5. Electrolytes are normal with low potassium of 3.1 being corrected, bicarb is 34. Patient had negative testing for COVID-19 infection. And on physical examination she had basically slightly diminished breath sound bilaterally, no crackles nor rhonchi no wheezes. On 06/17/2021 patient seen in follow-up. Patient is breathing comfortably, she is sitting up in bed, denies any shortness of breath or cough, she is on 2 L of oxygen pulse ox is 96%, no fever or chills, vital signs are stable, no compensatory headache, currently patient is on breathing treatments, Pulmicort, DuoNeb, IV steroids with Solu-Medrol 40 mg every 8 hours, Toradol and Fioricet. No acute events overnight. Chest x-ray showed no active cardiopulmonary disease, COVID-19 was negative. Objective - Vital Signs Vital signs: Vital Signs Temp 98.7 F 06/17/21 12:09 Pulse 79 06/17/21 12:09 Resp 18 06/17/21 12:09 BP 128/85 06/17/21 12:09 Pulse Ox 96 06/17/21 12:09 Intake & Output 06/16/21 06/17/21 06/17/21 18:59 06:59 18:59 Intake Total 860 400 Balance 860 400 Intake: Oral 860 400 Other: # Voids 2 2 - Exam GENERAL EXAM: Alert, very pleasant, 55-year-old female patient on 2 L of oxygen and the pulse ox of 96% comfortable in no apparent distress. HEAD: Normocephalic/atraumatic. EYES: Normal reaction of pupils, equal size. Conjunctiva pink, sclera white. NOSE: Clear with pink turbinates. THROAT: No erythema or exudates. NECK: No masses, no JVD, no thyroid enlargement, no adenopathy. CHEST: No chest wall deformity. Symmetrical expansion. LUNGS: Equal air entry with no crackles, wheeze, rhonchi or dullness. CVS: Regular rate and rhythm, normal S1 and S2, no gallops, no murmurs, no rubs ABDOMEN: Soft, nontender. No hepatosplenomegaly, normal bowel sounds, no guarding or rigidity. EXTREMITIES: No clubbing, no edema, no cyanosis, 2+ pulses and upper and lower extremities. MUSCULOSKELETAL: Muscle strength and tone normal. SPINE: No scoliosis or deformity SKIN: No rashes CENTRAL NERVOUS SYSTEM: Alert and oriented -3. No focal deficits, tone is normal in all 4 extremities. PSYCHIATRIC: Alert and oriented -3. Appropriate affect. Intact judgment and insight. - Labs CBC & Chem 7: 06/17/21 07:40 06/17/21 07:40 Labs: Abnormal Lab Results - Last 24 Hours (Table) 06/17/21 06/17/21 Range/Units 07:40 07:40 WBC 15.53 H (4.50-10.00) X 10*3/uL RBC 4.07 L (4.10-5.20) X 10*6/uL MCV 103.4 H (80.0-97.0) fL MCHC 30.2 L (32.0-37.0) g/dL Absolute Nucleated RBC 0.03 H (0.00-0.00) X 10*3/uL Immature Gran # 0.08 H (0.00-0.04) X 10*3/uL Neutrophils # 14.15 H (1.80-7.70) X 10*3/uL Eosinophils # 0 L (0.04-0.35) X 10*3/uL NRBC/100 WBC Diff 0.2 H (0.0-0.0) /100 WBCS BUN 7.3 L (9.0-27.0) mg/dL Glucose 180 H (70-110) mg/dL AST 12 L (13-35) U/L Total Protein 5.6 L (6.2-8.2) g/dL Assessment and Plan Plan: Assessment: #1. Acute on chronic hypoxic respiratory failure related to acute exacerbation of COPD, mild with minimal pulmonary symptoms. Chest x-ray showed no acute cardiopulmonary process, COVID-19 PCR was negative #2. Chronic headaches secondary to pseudotumor cerebri #3. Chronic headaches secondary to pseudotumor cerebri #4. Tobacco dependence syndrome #5. History of MS with remissions and exacerbations he #6. Chronic pain syndrome #7. Benign essential hypertension #8. Fibromyalgia #9. Obesity #10. History of restless leg syndrome Plan: Continue current treatment breathing has significantly improved no worsening dyspnea or cough vital signs are stable Pulmonary perspective patient is stable for discharge home today, if cleared by medicine Her headaches have improved. Outpatient follow-up with Dr. Rushing in the office in one to 2 weeks I performed a history & physical examination of the patient and discussed their management with my nurse practitioner, Gay Hernandez. I reviewed the nurse practitioner's note and agree with the documented findings and plan of care. Lung sounds are positive for dim breath sounds throughout the lung schwarz. The findings and the impression was discussed with the patient. I attest to the documentation by the nurse practitioner. Time with Patient: Less than 30
[2021-06-17] MEDS ORDERED: methylPREDNISolone SOD SUCCI 40 MG/ML 1 ML VIAL IV SCH (16:00)
[2021-06-17] MEDS: busPIRone HCl 10 MG TAB PO SCH ×2 (16:05→20:16)
[2021-06-17] MEDS: MELATONIN 3 MG TABLET PO SCH (20:17)
[2021-06-18 05:15] VITALS: BP 144/82; RESP 20; TEMP 98.2
[2021-06-18] MEDS: KETOROLAC 30 MG/ML 1 ML VIAL IVP SCH ×2 (06:08→11:54)
[2021-06-18] MEDS: methocarbamoL 750 MG TAB PO PRN (06:09)
[2021-06-18] MEDS: LORazepam 1 MG TAB PO PRN (06:09)
[2021-06-18] MEDS: oxyCODONE-APAP 7.5-325MG 1 EACH TAB PO PRN ×2 (06:09→11:52)
[2021-06-18] MEDS: BUTALB/APAP/CAFF 50-325-40MG TAB PO PRN ×2 (06:09→15:21)
[2021-06-18] MEDS: BUDESONIDE 1 MG/2 ML NEBU INHALATION PRN (07:07)
[2021-06-18] MEDS: IPRATROPIUM-ALBUTEROL 3 ML NEB INHALATION SCH ×2 (07:07→11:08)
[2021-06-18] MEDS: busPIRone HCl 10 MG TAB PO SCH (07:54)
[2021-06-18] MEDS: hydroCHLOROthiazide 25 MG TAB PO SCH (07:55)
[2021-06-18] MEDS: ASCORBIC ACID 500 MG TAB PO SCH (07:55)
[2021-06-18] MEDS: CHOLECALCIFEROL 25 MCG (1000 IU) TABLET PO SCH (07:55)
[2021-06-18] MEDS: ASPIRIN 81 MG PO SCH (07:55)
[2021-06-18] MEDS: MULTIVITAMINS, THERA 1 EACH TAB PO SCH (07:55)
[2021-06-18] MEDS: GABAPENTIN 400 MG CAP PO SCH (07:55)
[2021-06-18] MEDS: MONTELUKAST 10 MG TAB PO SCH (07:56)
[2021-06-18] MEDS: MEMANTINE 10 MG TAB PO SCH (07:56)
[2021-06-18] MEDS: SUCRALFATE 1 GM TAB PO SCH ×2 (07:56→11:52)
[2021-06-18] MEDS: HEPARIN SODIUM,PORCINE/PF 5,000 UNIT/0.5 ML SYRINGE SQ SCH (07:56)
[2021-06-18] MEDS: FOLIC ACID 1 MG TAB PO SCH (07:56)
[2021-06-18] MEDS: PANTOPRAZOLE 40 MG TABLET PO SCH (07:56)
[2021-06-18] MEDS: acetaZOLAMIDE 250 MG TAB PO SCH (07:57)
[2021-06-18] MEDS: TOPIRAMATE 100 MG TAB PO SCH (07:57)
[2021-06-18] MEDS: PARoxetine 20 MG TAB PO SCH (07:57)
[2021-06-18] MEDS: VERAPAMIL 40 MG TAB PO SCH (07:57)
[2021-06-18] MEDS: NICOTINE 14MG/24HR PATCH TRANSDERM PRN (09:27)
[2021-06-18 11:12] VITALS: PULSE 72
--- NOTE | 2021-06-18 11:59 | P.PN ---
Subjective Progress Note Date: 06/18/21 Principal diagnosis: Headache, cough, shortness of breath This is a 55-year-old female with history of multiple sclerosis, hypertension, chronic obstructive pulmonary disease, chronic hypoxic rest or with failure, usually on 2 L at home, history of pseudotumor cerebri, patient follows up with Dr. Ramirez regarding her MS, and her pseudotumor cerebri. Patient was admitted today mostly with 2 days history of cough, shortness of breath, headache, denies any fever denies any chills, denies any hemoptysis. Chest x-ray showed no evidence of pneumonia. And no significant pulmonary process noted on the chest x-ray. Actually the patient seems to be more concerned about her intermittent headaches more so than her pulmonary symptoms. CBC showed leukocytosis with WBC count of 14.2 hemoglobin 15.5. Electrolytes are normal with low potassium of 3.1 being corrected, bicarb is 34. Patient had negative testing for COVID-19 infection. And on physical examination she had basically slightly diminished breath sound bilaterally, no crackles nor rhonchi no wheezes. On 06/17/2021 patient seen in follow-up. Patient is breathing comfortably, she is sitting up in bed, denies any shortness of breath or cough, she is on 2 L of oxygen pulse ox is 96%, no fever or chills, vital signs are stable, no compensatory headache, currently patient is on breathing treatments, Pulmicort, DuoNeb, IV steroids with Solu-Medrol 40 mg every 8 hours, Toradol and Fioricet. No acute events overnight. Chest x-ray showed no active cardiopulmonary disease, COVID-19 was negative. On 06/18/2021 patient seen in follow-up on medical surgical floor, she is sitting up in the recliner, in no acute distress, on 2 L of oxygen her pulse ox is 100%, lung sounds are clear, no wheezing no rhonchi, no cough, the headaches have improved. She's had no acute events overnight. Vital signs have been st able. Today's labs have been reviewed with cell count is 15.5, hemoglobin is 12.7, electrolytes are within normal limits, BUN was 7.3, creatinine 0.6. Influenza COVID-19 PCR were negative, no definite sign of urinary tract infection. Patient has been treated with IV steroids, Toradol, Percocet, T opamax, Neurontin. She is being discharged home today. Stable for discharge from pulmonary perspective. Objective - Vital Signs Vital signs: Vital Signs Temp 98.2 F 06/18/21 05:00 Pulse 72 06/18/21 11:20 Resp 20 06/18/21 05:00 BP 144/82 06/18/21 05:00 Pulse Ox 100 06/18/21 05:00 Intake & Output 06/17/21 06/18/21 06/18/21 18:59 06:59 18:59 Intake Total 400 Balance 400 Intake: Oral 400 Other: # Voids 3 2 - Exam GENERAL EXAM: Alert, very pleasant, 55-year-old female patient on 2 L of oxygen and the pulse ox of 100% comfortable in no apparent distress. HEAD: Normocephalic/atraumatic. EYES: Normal reaction of pupils, equal size. Conjunctiva pink, sclera white. NOSE: Clear with pink turbinates. THROAT: No erythema or exudates. NECK: No masses, no JVD, no thyroid enlargement, no adenopathy. CHEST: No chest wall deformity. Symmetrical expansion. LUNGS: Equal air entry with no crackles, wheeze, rhonchi or dullness. CVS: Regular rate and rhythm, normal S1 and S2, no gallops, no murmurs, no rubs ABDOMEN: Soft, nontender. No hepatosplenomegaly, normal bowel sounds, no guarding or rigidity. EXTREMITIES: No clubbing, no edema, no cyanosis, 2+ pulses and upper and lower extremities. MUSCULOSKELETAL: Muscle strength and tone normal. SPINE: No scoliosis or deformity SKIN: No rashes CENTRAL NERVOUS SYSTEM: Alert and oriented -3. No focal deficits, tone is normal in all 4 extremities. PSYCHIATRIC: Alert and oriented -3. Appropriate affect. Intact judgment and insight. - Labs CBC & Chem 7: 06/17/21 07:40 06/17/21 07:40 Assessment and Plan Plan: Assessment: #1. Acute on chronic hypoxic respiratory failure related to acute exacerbation of COPD, mild with minimal pulmonary symptoms. Chest x-ray showed no acute cardiopulmonary process, COVID-19 and influenza PCR was negative #2. Chronic headaches secondary to pseudotumor cerebri #3. Chronic headaches secondary to pseudotumor cerebri #4. Tobacco dependence syndrome #5. History of MS with remissions and exacerbations he #6. Chronic pain syndrome #7. Benign essential hypertension #8. Fibromyalgia #9. Obesity #10. History of restless leg syndrome Plan: Patient has been stable from pulmonary perspective, no worsening dyspnea or cough, Vital signs have been stable, Her headaches have improved, She is being discharged home today Outpatient follow-up with Dr. Rushing, and patient has an upcoming appointment in July that she can keep Resume Trelegy Ellipta, nebulized Pulmicort, Mucinex DM, Singulair, and patient is being sent home on prednisone taper. I performed a history & physical examination of the patient and discussed their management with my nurse practitioner, Gay Hernandez. I reviewed the nurse practitioner's note and agree with the documented findings and plan of care. Lung sounds are positive for dim breath sounds throughout the lung schwarz. The findings and the impression was discussed with the patient. I attest to the documentation by the nurse practitioner. Time with Patient: Less than 30
--- NOTE | 2021-06-18 12:07 | P.DS ---
Providers Date of admission: 06/15/21 17:47 Expected date of discharge: 06/18/21 Attending physician: Zan Minor Consults: 06/15/21 17:46 Consult Physician Routine Consulting Provider: Panfilo Roberts Consult Reason/Comments: COPD Do you want consulting provider notified?: Yes Primary care physician: Kilo Tabares [facility] [place] Course: History of present illness This is a 55 year old female patient of Dr. Tabares and Dr. Ramirez with a past medical history of relapsing remitting multiple sclerosis, hypertension and hypertensive cardiovascular disease with left ventricular hypertrophy, history of GERD, multiple sclerosis, COPD, asthma, history of osteoporosis, uterine cancer status post surgery, chronic hypoxic respiratory failure on home O2 at 2 L nasal cannula, daily tobacco use, history of pseudotumor cerebri needing lumbar puncture in August 2020. She has had multiple admissions for acute exacerbation of her multiple sclerosis. Patient comes in with upper respiratory symptoms associated with shortness of breath for the past 2 day. She is also complaining of cough, mild shortness of breath, fatigue, and headache. Patient does have history of chronic headaches which she is followed with Dr. Ramirez. Patient denies any vomiting or diarrhea. No focal numbness or weakness. At this time patient is found resting comfortably in bed in no acute distress. Patient continues to complain of headache and body aches. Patient does have mild shortness of breath which is exacerbated with movement. At home she was not on any steroids. She was started on Solu-Medrol in the hospital. Patient remains afebrile, heart rate 87, respirations 16 blood pressure 120/67 pulse ox 95% on 2 L. Chest x-ray shows no active cardiopulmonary disease. Borderline cardiomegaly. No change. Brain CT normal unenhanced head CT scan. 06/17: Patient has been seen by pulmonary medicine with recommendations to continue bronchodilators, no need for empiric antibiotics and consider discharge planning. Patient has been afebrile, heart rate in the 60s and 70s, blood pressure 121/71, pulse ox 90% on 2 L nasal cannula. nuclear monitoring technician will be discontinued. Patient is complaining of significant headache and she has Percocet in place we will add in Toradol every 6 hours and Diamox. Patient is on IV Solu-Medrol which will be decreased to 40 mg every 8 hours and plan for oral prednisone this morning. Repeat blood work reveals WBC 15.5, hemoglobin 12.7, platelet count 242. Electrolytes are normal. BUNs 7.3 and creatinine 0.6. Blood sugar 180. Plan to monitor patient overnight and discharged home tomorrow. 06/18: Patient remains afebrile, heart rate in the 70s, blood pressure 144/82, pulse ox 100% on 2 L nasal cannula. Headache is better today possibly related to Diamox which she states she does have at home. Recommend patient take 250 mg daily and follow-up with her PCP. Breathing status is stable. Patient will be discharged home today in stable condition. Patient has been seen by pulmonary medicine with recommendations for outpatient follow-up with Dr. Rushing. Discharge Diagnoses 1. COPD exacerbation with history of asthma 2 acute on chronic headache with history of pseudo-tumor cerebri. 3.tobacco abuse. 4.history of relapsing remitting MS not in acute exacerbation 5 chronic pain and occipital neurology under the care of Dr. Ramirez 6.hypertension and hypertensive cardiovascular disease 7.fibromyalgia 8. generalized anxiety disorder 9. obesity with possible obstructive sleep apnea and obesity hypoventilation syndrome 10. recurrent depression 11. mild cognitive impairment 12. Restless leg syndrome 13. GERD Discharge plan home Greater than 35 minutes was utilized and coordinating patient's discharge. Impression and plan of care have been directed as dictated by the signing physician. Elaine Nguyen nurse practitioner acting as scribe for signing physician. Patient Condition at Discharge: Good Plan - Discharge Summary Discharge Rx Participant: No New Discharge Prescriptions: New acetaZOLAMIDE [Diamox] 250 mg PO DAILY #30 tab Ketorolac [Toradol] 10 mg PO Q6HR #14 tab predniSONE 0 mg PO DIRECTED #30 tab Continue LORazepam [Ativan] 1 mg PO TID PRN PRN Reason: Anxiety Aspirin 81 mg PO DAILY Verapamil HCl [Calan] 120 mg PO DAILY Butalb/APAP/Caff 50-325-40Mg [Fioricet 50-325-40] 1 tab PO Q8H PRN PRN Reason: Headache rOPINIRole HCL [Requip] 0.25 mg PO TID #90 tab Multivitamins, Thera [Multivitamin (formulary)] 1 tab PO DAILY Pantoprazole Sodium [Protonix] 40 mg PO BID Memantine [Namenda] 10 mg PO BID Montelukast [Singulair] 10 mg PO DAILY hydroCHLOROthiazide [Hydrodiuril] 25 mg PO DAILY tab Fluticasone Nasal [place] [Flonase Nasal [place]] 2 spr EA NOSTRIL DAILY PRN PRN Reason: Congestion Methocarbamol [Robaxin-750] 750 mg PO TID PRN PRN Reason: Muscle Spasm Folic Acid 1 mg PO DAILY #30 tab Albuterol Sulfate [Ventolin HFA] 1 - 2 puff INHALATION RT-QID PRN PRN Reason: Shortness Of Breath Docusate [Colace] 100 mg PO DAILY PRN PRN Reason: Constipation Zinc Gluconate [Zinc] 50 mg PO DAILY Ascorbic Acid [Vitamin C] 1,000 mg PO DAILY Diclofenac Sodium Gel [Voltaren Gel] 2 gm TOPICAL QID PRN #0 PRN Reason: Pain Turmeric Root Extract [Turmeric] 500 mg PO DAILY Elderberry Fruit and Flower [Black Elderberry 575 mg Cap] 1 cap PO DAILY Gabapentin 800 mg PO TID Topiramate [Topamax] 100 mg PO BID Sucralfate [Carafate] 1 gm PO ACHS #120 tab guaiFENesin-DM 600/30MG [Mucinex Dm] 2 tab PO Q12HR PRN PRN Reason: Cough Nicotine 14Mg/24Hr Patch [Habitrol] 1 patch TRANSDERM DAILY PRN PRN Reason: Nicotine Cravings PARoxetine HCL [Paxil] 40 mg PO DAILY Budesonide [Pulmicort] 1 mg INHALATION RT-BID PRN PRN Reason: Shortness Of Breath oxyCODONE-APAP 7.5-325MG [Percocet 7.5-325 mg] 1 tab PO TID PRN PRN Reason: Pain busPIRone HCl [Buspar] 10 mg PO TID PRN PRN Reason: Anxiety Cholecalciferol [Vitamin D3 (25 Mcg = 1000 Iu)] 50 mcg PO DAILY Fluticasone/Umeclidin/Vilanter [Trelegy Ellipta 200-62.5-25] 1 puff INHALATION RT-DAILY Nystatin 100,000 Unit/ml Susp [Mycostatin Oral Susp] 500,000 unit PO QID PRN PRN Reason: thrush Discharge Medication List Aspirin 81 mg PO DAILY 02/20/14 [History] LORazepam [Ativan] 1 mg PO TID PRN 02/20/14 [History] Verapamil HCl [Calan] 120 mg PO DAILY 02/20/14 [History] Butalb/APAP/Caff 50-325-40Mg [Fioricet 50-325-40] 1 tab PO Q8H PRN 03/25/17 [History] rOPINIRole HCL [Requip] 0.25 mg PO TID #90 tab 01/31/18 [Rx] Multivitamins, Thera [Multivitamin (formulary)] 1 tab PO DAILY 05/07/18 [History] Pantoprazole Sodium [Protonix] 40 mg PO BID 10/31/18 [History] Memantine [Namenda] 10 mg PO BID 11/22/18 [History] Montelukast [Singulair] 10 mg PO DAILY 11/22/18 [History] hydroCHLOROthiazide [Hydrodiuril] 25 mg PO DAILY tab 11/26/18 [Rx] Fluticasone Nasal [place] [Flonase Nasal [place]] 2 spr EA NOSTRIL DAILY PRN 1 06/29/18 [History] Methocarbamol [Robaxin-750] 750 mg PO TID PRN 04/28/19 [History] Folic Acid 1 mg PO DAILY #30 tab 05/02/19 [Rx] Albuterol Sulfate [Ventolin HFA] 1 - 2 puff INHALATION RT-QID PRN 08/09/19 [History] Ascorbic Acid [Vitamin C] 1,000 mg PO DAILY 01/30/20 [History] Docusate [Colace] 100 mg PO DAILY PRN 01/30/20 [History] Zinc Gluconate [Zinc] 50 mg PO DAILY 01/30/20 [History] Diclofenac Sodium Gel [Voltaren Gel] 2 gm TOPICAL QID PRN #0 03/26/20 [History] Elderberry Fruit and Flower [Black Elderberry 575 mg Cap] 1 cap PO DAILY 06/14/20 [History] Turmeric Root Extract [Turmeric] 500 mg PO DAILY 06/14/20 [History] Gabapentin 800 mg PO TID 08/21/20 [History] Topiramate [Topamax] 100 mg PO BID 08/21/20 [History] oxyCODONE-APAP 7.5-325MG [Percocet 7.5-325 mg] 1 tab PO TID PRN 10/30/20 [History] Sucralfate [Carafate] 1 gm PO ACHS #120 tab 04/03/21 [Rx] Budesonide [Pulmicort] 1 mg INHALATION RT-BID PRN 06/15/21 [History] Cholecalciferol [Vitamin D3 (25 Mcg = 1000 Iu)] 50 mcg PO DAILY 06/15/21 [History] Fluticasone/Umeclidin/Vilanter [Trelegy Ellipta 200-62.5-25] 1 puff INHALATION RT-DAILY 06/15/21 [History] Nicotine 14Mg/24Hr Patch [Habitrol] 1 patch TRANSDERM DAILY PRN 06/15/21 [History] Nystatin 100,000 Unit/ml Susp [Mycostatin Oral Susp] 500,000 unit PO QID PRN 06/15/21 [History] PARoxetine HCL [Paxil] 40 mg PO DAILY 06/15/21 [History] busPIRone HCl [Buspar] 10 mg PO TID PRN 06/15/21 [History] guaiFENesin-DM 600/30MG [Mucinex Dm] 2 tab PO Q12HR PRN 06/15/21 [History] Ketorolac [Toradol] 10 mg PO Q6HR #14 tab 06/18/21 [Rx] acetaZOLAMIDE [Diamox] 250 mg PO DAILY #30 tab 06/18/21 [Rx] predniSONE 0 mg PO DIRECTED #30 tab 06/18/21 [Rx] Follow up Appointment(s)/Referral(s): Kilo Tabares MD [Primary Care Provider] - 06/26/21 12:45 pm Patient Instructions/Handouts: COPD (Chronic Obstructive Pulmonary Disease) (DC) Discharge Disposition: HOME SELF-CARE
== END 2021-06-18 15:45 | disposition home or self-care (01) | DRG 190 ==
LOC: EC 13:06 → 5NMEDONC 17:47
PROVIDERS: ADMIT Internal Medicine Geriatric Medicine; ATTEND Internal Medicine Geriatric Medicine
PROC: 3E0F7SF Introduction of Other Gas into Respiratory Tract, Via Natural or Artificial Opening (ICD-10-PCS; principal; 2021-06-15)
DX: J44.1 Chronic obstructive pulmonary disease with (acute) exacerbation (principal); J96.21 Acute and chronic respiratory failure with hypoxia; F33.9 Major depressive disorder, recurrent, unspecified; Z68.41 Body mass index [BMI] 40.0-44.9, adult; D84.9 Immunodeficiency, unspecified; E87.2 Acidosis; E66.2 Morbid (severe) obesity with alveolar hypoventilation; Z20.822 Contact with and (suspected) exposure to COVID-19; I10 Essential (primary) hypertension; M79.7 Fibromyalgia; G89.4 Chronic pain syndrome; D72.829 Elevated white blood cell count, unspecified; E11.9 Type 2 diabetes mellitus without complications; M81.0 Age-related osteoporosis without current pathological fracture; K21.9 Gastro-esophageal reflux disease without esophagitis; G35 Multiple sclerosis; F17.210 Nicotine dependence, cigarettes, uncomplicated; G43.909 Migraine, unspecified, not intractable, without status migrainosus; G93.2 Benign intracranial hypertension; G25.81 Restless legs syndrome; Z88.8 Allergy status to other drugs, medicaments and biological substances; E87.6 Hypokalemia; F40.240 Claustrophobia; Z71.6 Tobacco abuse counseling; F41.1 Generalized anxiety disorder; G31.84 Mild cognitive impairment of uncertain or unknown etiology; G50.0 Trigeminal neuralgia; J30.89 Other allergic rhinitis; H54.7 Unspecified visual loss; R29.6 Repeated falls; H91.90 Unspecified hearing loss, unspecified ear; Z79.51 Long term (current) use of inhaled steroids; Z79.82 Long term (current) use of aspirin; Z79.899 Other long term (current) drug therapy; Z82.3 Family history of stroke; Z82.41 Family history of sudden cardiac death; Z82.49 Family history of ischemic heart disease and other diseases of the circulatory system; Z85.42 Personal history of malignant neoplasm of other parts of uterus; Z90.710 Acquired absence of both cervix and uterus; Z87.01 Personal history of pneumonia (recurrent); Z91.81 History of falling; Z98.42 Cataract extraction status, left eye; Z98.41 Cataract extraction status, right eye; Z98.51 Tubal ligation status
CPT/HCPCS: 36415; 70450; 71046; 80053; 81001; 83605; 83735; 85025; 85610; 85730; 87502; 87635; 93005; 94640; 94760; 96361; 96374; 96375; 99285

== ENCOUNTER 2021-08-13 11:08 | Day surgery (SDC) | payer MEDICARE, OTHER ==
[2021-08-13 11:34] VITALS: TEMP 97.5
[2021-08-13 11:43] LABS: Glucose,Whole Blood 137 mg/dL (75-99)
[2021-08-13] MEDS ORDERED: fentaNYL (PF) 50 MCG/ML 2 ML AMP ONE (11:43)
[2021-08-13] MEDS ORDERED: MIDAZOLAM 2 MG/2 ML VIAL ONE (11:43)
[2021-08-13] MEDS ORDERED: IOPAMIDOL M200 10 ML VIAL ONE (11:43)
[2021-08-13] MEDS ORDERED: methylPREDNISolone ACETATE 40 MG/ML 1 ML VIAL ONE (11:43)
--- NOTE | 2021-08-13 11:55 | P.PCN ---
Date of Procedure: 08/13/21 Description of Procedure: PROCEDURE 1. Cervical epidural steroid injection under fluoroscopic guidance, C6-C7 2. Cervical epidurogram. PREOPERATIVE DIAGNOSIS: Cervical radiculopathy POSTOPERATIVE DIAGNOSIS: Cervical radiculopathy Imaging: Fluoroscopy was used, images where saved to the medical record ANESTHESIA: Local anesthesia with 1% lidocaine and (IV conscious sedation ) PROCEDURE DESCRIPTION / TECHNIQUE: The patient was seen and identified in the preoperative area. Risks, benefits, and alternatives were discused with the patient and the patient has consented to the procedure. Risks of the procedure include potential for bleeding, infection, nerve damage, and incomplete pain relief were discussed with the patient. All questions were answered for the patient Patient was taken to the OR and time out was completed. The patient was placed in the prone position on the procedure table. A pillow was placed under the patients chest to increase the cervical interlaminar space. The cervical area was prepped and draped in the usual sterile fashion. Vital signs were closely monitored during the procedure. Using anterior-posterior fluoroscopy, the C6-C7 interlaminar space was identified and the skin over this site was marked and then infiltrated with 1% lidocaine subcutaneously. Subsequently, a 20-gauge 3-1/2-inch Tuohy epidural needle was inserted and advanced toward the epidural space by means of the [id number] technique and guided by AP and lateral fluoroscopy. The correct needle position in the epidural space was verified with the injection of 1 mL of the water soluble contrast dye [id number] and observing an excellent epidurogram with the epidural spread of the dye, after negative aspiration for blood and CSF and in the absence of paresthesias. Again after negative aspiration, a mixture containing 10 mg Dexamethasone and 2 ml of preservative- free normal saline injected and a washout of epidurogram was seen. Needle was withdrawn intact, skin was cleansed, and bandages were applied. Complications: none. Disposition: patient was placed in supine position and transferred to the recovery room area in stable condition and there was no evidence of upper or lower extremity motor or sensory deficit after the procedure patient was discharged from recovery room after discharge criteria met and home discharge instructions was given by the staff and patient will follow with the pain as directed.
[2021-08-13] MEDS ORDERED: IV FLUID CONTINUATION 900 ML IV ONE (12:07)
[2021-08-13 12:10] VITALS: RESP 20
[2021-08-13 12:27] VITALS: BP 104/77; PULSE 108
--- NOTE | 2021-08-13 12:37 | FL ---
EXAMINATION TYPE: FL guided pain mgmt statistic DATE OF EXAM: 08/13/2021 HISTORY: Fluoroscopy time 5 seconds of fluoroscopy provided. IMPRESSION: 1. Fluoroscopy time.
== END 2021-08-13 12:40 ==
LOC: ORPAIN 11:08
PROVIDERS: ATTEND Hospitalist
DX: M54.12 Radiculopathy, cervical region (principal)
CPT/HCPCS: 62321; J2250; J1030; J3010; Q9966

== ENCOUNTER 2022-02-09 09:19 | Inpatient (IN) | payer MEDICARE, OTHER ==
[2022-02-09] MEDS ORDERED: ALBUTEROL NEBULIZED 2.5 MG/3 ML INHALATION STA (09:42)
[2022-02-09] MEDS ORDERED: IPRATROPIUM 0.5 MG/2.5 ML NEBU INHALATION STA (09:42)
[2022-02-09] MEDS ORDERED: methylPREDNISolone SOD SUCCI 125 MG/2 ML VIAL IV STA (09:42)
[2022-02-09] MEDS ORDERED: KETOROLAC 15 MG/ML 1 ML VIAL IVP STA (10:12)
[2022-02-09] MEDS ORDERED: ACETAMINOPHEN TAB 325 MG TAB PO STA (10:12)
--- NOTE | 2022-02-09 10:20 | ED ---
General Adult HPI - General Chief complaint: Weakness Stated complaint: SOB Time Seen by Provider: 02/09/22 09:25 Source: patient, EMS, RN notes reviewed, old records reviewed Mode of arrival: EMS Limitations: no limitations - History of Present Illness Initial comments: This a 56-year-old female presents emergency Department complaining that she has been exposed to COVID within the last 2 weeks she's had symptoms she states she's had body aches a cough and some shortness of breath patient states she's been coughing coughing up some sputum. Patient denies any chest pain or palpitations. Patient states she is short of breath and she does have oxygen at home and she uses. Patient denies any nausea vomiting. Patient denies any dysuria hematuria. Patient states she did fall yesterday and bumped her head but she has no headache and no numbness or weakness. - Related Data Home Medications Medication Instructions Recorded Confirmed Aspirin 81 mg PO DAILY 02/20/14 08/13/21 LORazepam [Ativan] 1 mg PO TID PRN 02/20/14 08/13/21 Verapamil HCl [Calan] 120 mg PO DAILY 02/20/14 08/13/21 Butalb/APAP/Caff 50-325-40Mg 1 tab PO Q8H PRN 03/25/17 08/13/21 [Fioricet 50-325-40] Multivitamins, Thera [Multivitamin 1 tab PO DAILY 05/07/18 08/13/21 (formulary)] Pantoprazole Sodium [Protonix] 40 mg PO BID 10/31/18 08/13/21 Memantine [Namenda] 10 mg PO BID 11/22/18 08/13/21 Montelukast [Singulair] 10 mg PO DAILY 11/22/18 08/13/21 Fluticasone Nasal Anthony [Flonase 2 spr EA NOSTRIL DAILY PRN 04/28/19 08/13/21 Nasal Anthony] methocarbamoL [Robaxin-750] 750 mg PO TID PRN 04/28/19 08/13/21 Albuterol Sulfate [Ventolin HFA] 1 - 2 puff INHALATION RT-QID PRN 08/09/19 08/13/21 Ascorbic Acid [Vitamin C] 1,000 mg PO DAILY 01/30/20 08/13/21 Docusate [Colace] 100 mg PO DAILY PRN 01/30/20 08/13/21 Zinc Gluconate [Zinc] 50 mg PO DAILY 01/30/20 08/13/21 Diclofenac Sodium Gel [Voltaren 2 gm TOPICAL QID PRN #0 03/26/20 08/13/21 Gel] Elderberry Fruit and Flower [Black 1 cap PO DAILY 06/14/20 08/13/21 Elderberry 575 mg Cap] Turmeric Root Extract [Turmeric] 500 mg PO DAILY 06/14/20 08/13/21 Gabapentin 800 mg PO TID 08/21/20 08/13/21 Topiramate [Topamax] 100 mg PO BID 08/21/20 08/13/21 oxyCODONE-APAP 7.5-325MG [Percocet 1 tab PO TID PRN 10/30/20 08/13/21 7.5-325 mg] Cholecalciferol [Vitamin D3 (25 50 mcg PO DAILY 06/15/21 08/13/21 Mcg = 1000 Iu)] Fluticasone/Umeclidin/Vilanter 1 puff INHALATION RT-DAILY 06/15/21 08/13/21 [Trelegy Ellipta 200-62.5-25] Nystatin 100,000 Unit/ml Susp 500,000 unit PO QID PRN 06/15/21 08/13/21 [Mycostatin Oral Susp] PARoxetine HCL [Paxil] 40 mg PO DAILY 06/15/21 08/13/21 busPIRone HCl [Buspar] 10 mg PO TID PRN 06/15/21 08/13/21 guaiFENesin-DM 600/30MG [Mucinex 2 tab PO Q12HR PRN 06/15/21 08/13/21 Dm] Ipratropium-Albuterol Nebulize 3 ml INHALATION DAILY 08/13/21 08/13/21 [Duoneb 0.5 mg-3 mg/3 ml Soln] Previous Rx's Medication Instructions Recorded rOPINIRole HCL [Requip] 0.25 mg PO TID #90 tab 01/31/18 hydroCHLOROthiazide [Hydrodiuril] 25 mg PO DAILY tab 11/26/18 Folic Acid 1 mg PO DAILY #30 tab 05/02/19 Sucralfate [Carafate] 1 gm PO ACHS #120 tab 04/03/21 Allergies Allergy/AdvReac Type Severity Reaction Status Date / Time baclofen AdvReac URINARY Verified 08/13/21 11:22 ISSUES dexamethasone [From Decadron] AdvReac "THOMPSON Verified 08/13/21 11:22 SKIN"/DEHYDRATION Review of Systems ROS Statement: Those systems with pertinent positive or pertinent negative responses have been documented in the HPI. ROS Other: All systems not noted in ROS Statement are negative. Past Medical History Past Medical History: Asthma, Cancer, COPD, Eye Disorder, Fibromyalgia, GERD/Reflux, Hearing Disorder / Deafness, Hypertension, Memory Impairment, Musculoskeletal Disorder, Neurologic Disorder, Osteoarthritis (OA), Pneumonia, Syncope Additional Past Medical History / Comment(s): MS relapsing/remitting type, chronic bilateral eye pain/optic neuritis/ poor vision, cataracts bilaterally, chronic occipital neuralgia, osteoporosis, RLS, chronic hypoxic respiratory failure with home oxygen 2L/NC prn, chronic bronchitis, immunocompromised, elevated blood sugar with steroid use, uterine cancer with hysterectomy/radiation, heart murmur, mild cognitive impairment, chronic ve rtigo, falls, rheumatic fever as child, tinnitis bilaterally, allergic rhinitis, trigeminal neuralgia. History of Any Multi-Drug Resistant Organisms: None Reported Past Surgical History: Bladder Surgery, Heart Catheterization, Hysterectomy, Tubal Ligation Additional Past Surgical History / Comment(s): Nerve blocks, bladder suspension, fibroid removal. PAIN CLINIC Past Anesthesia/Blood Transfusion Reactions: No Reported Reaction, Postoperative Nausea & Vomiting (PONV) Additional Past Anesthesia/Blood Transfusion Reaction / Comment(s): mild claustrophobia Past Psychological History: Anxiety, Depression Smoking Status: Current some day smoker - Past Family History Mother Family Medical History: CVA/TIA, Myocardial Infarction (DC) Additional Family Medical History / Comment(s): Mother is alive at age 75 with history of brain aneurysm, 3 strokes and 2 myocardial infarctions. Brain aneurysms run on mother's side of family Father Family Medical History: Coronary Artery Disease (CAD) Additional Family Medical History / Comment(s): Father at age 72 from a cardiac arrest thought to be due to a myocardial infarction. Sister(s) Family Medical History: No Reported History Additional Family Medical History / Comment(s): Patient has 2 sisters with no major medical problems. Patient does not have any brothers. Patient has 2 adult children with no major medical problems. Patient is only family member with MS. General Exam - General Exam Comments Initial Comments: GENERAL: Patient is well-developed and well-nourished. Patient is nontoxic and well- hydrated and is in mild mdistress. ENT: Neck is soft and supple. No significant lymphadenopathy is noted. Oropharynx is clear. Moist mucous membranes. Neck has full range of motion without salazar citing any pain. EYES: The sclera were anicteric and conjunctiva were pink and moist. Extraocular movements were intact and pupils were equal round and reactive to light. Eyelids were unremarkable. PULMONARY: Patient has expiratory wheezing CARDIOVASCULAR: There is a regular rate and rhythm without any murmurs gallops or rubs. ABDOMEN: Soft and nontender with normal bowel sounds. SKIN: Skin is clear with no lesions or rashes and otherwise unremarkable. NEUROLOGIC: Patient is alert and oriented x3. Cranial nerves II through XII are grossly intact. Motor and sensory are also intact. Normal speech, volume and content. Symmetrical smile. MUSCULOSKELETAL: Normal extremities with adequate strength and full range of motion. LYMPHATICS: No significant lymphadenopathy is noted PSYCHIATRIC: Normal psychiatric evaluation. Limitations: no limitations Course Vital Signs 02/09/22 02/09/22 02/09/22 09:22 09:30 09:42 Temperature 99.7 F H Pulse Rate 90 Respiratory 20 22 Rate Blood Pressure 141/87 O2 Sat by Pulse 92 L 88 L Oximetry 02/09/22 02/09/22 02/09/22 09:45 10:06 10:34 Temperature Pulse Rate 91 86 Respiratory 18 20 Rate Blood Pressure 141/87 O2 Sat by Pulse 96 96 Oximetry 02/09/22 02/09/22 02/09/22 10:54 11:00 12:00 Temperature Pulse Rate 85 85 Respiratory 22 18 18 Rate Blood Pressure 140/86 117/74 O2 Sat by Pulse 96 96 Oximetry Medical Decision Making - Medical Decision Making EKG shows sinus rhythm with occasional PAC at a rate of 91 bpm NH interval 206 QRS is 78 QT interval 323 QTC is 372. Patient's EKG shows no ST segment elevation or depression Patient received a breathing treatments steroids in the emergency department she continued to wheeze and feel short of breath. Chest x-ray shows a viral pneumonia. I spoke with Dr. Peterson he agreed to admit the patient admitted the patient I wrote admitting orders. - Lab Data Result diagrams: 02/09/22 10:02/09/22 10:09 Lab Results 02/09/22 02/09/22 02/09/22 Range/Units 10: 10: 10: WBC 10.6 (3.8-10.6) k/uL RBC 4.72 (3.80-5.40) m/uL Hgb 15.1 (11.4-16.0) gm/dL Hct 48.2 H (34.0-46.0) % MCV 102.0 H (80.0-100.0) fL MCH 32.0 (25.0-35.0) pg MCHC 31.4 (31.0-37.0) g/dL RDW 13.6 (11.5-15.5) % Plt Count 228 (150-450) k/uL MPV 8.8 Neutrophils % 70 % Lymphocytes % 20 % Monocytes % 4 % Eosinophils % 3 % Basophils % 1 % Neutrophils # 7.4 (1.3-7.7) k/uL Lymphocytes # 2.2 (1.0-4.8) k/uL Monocytes # 0.4 (0-1.0) k/uL Eosinophils # 0.3 (0-0.7) k/uL Basophils # 0.1 (0-0.2) k/uL Hypochromasia Marked Macrocytosis Slight PT 10.2 (9.0-12.0) sec INR 0.9 (<1.2) APTT 23.7 (22.0-30.0) sec Sodium (137-145) mmol/L Potassium (3.5-5.1) mmol/L Chloride (98-107) mmol/L Carbon Dioxide (22-30) mmol/L Anion Gap mmol/L BUN (7-17) mg/dL Creatinine (0.52-1.04) mg/dL Est GFR (CKD-EPI)AfAm (>60 ml/min/1.73 sqM) Est GFR (CKD-EPI)NonAf (>60 ml/min/1.73 sqM) Glucose (74-99) mg/dL Plasma Lactic Acid Adalid (0.7-2.0) mmol/L Calcium (8.4-10.2) mg/dL Total Bilirubin (0.2-1.3) mg/dL AST (14-36) U/L ALT (4-34) U/L Alkaline Phosphatase (38-126) U/L Troponin I (0.000-0.034) ng/mL NT-Pro-B Natriuret Pep pg/mL Total Protein (6.3-8.2) g/dL Albumin (3.5-5.0) g/dL Urine Color Urine Appearance (Clear) Urine pH (5.0-8.0) Ur Specific [place] (1.001-1.035) Urine Protein (Negative) Urine Glucose (UA) (Negative) Urine Ketones (Negative) Urine Blood (Negative) Urine Nitrite (Negative) Urine Bilirubin (Negative) Urine Urobilinogen (<2.0) mg/dL Ur Leukocyte Esterase (Negative) Coronavirus (PCR) Not Detected (Not Detectd) 02/09/22 02/09/22 02/09/22 Range/Units 10:09 10:09 10:09 WBC (3.8-10.6) k/uL RBC (3.80-5.40) m/uL Hgb (11.4-16.0) gm/dL Hct (34.0-46.0) % MCV (80.0-100.0) fL MCH (25.0-35.0) pg MCHC (31.0-37.0) g/dL RDW (11.5-15.5) % Plt Count (150-450) k/uL MPV Neutrophils % % Lymphocytes % % Monocytes % % Eosinophils % % Basophils % % Neutrophils # (1.3-7.7) k/uL Lymphocytes # (1.0-4.8) k/uL Monocytes # (0-1.0) k/uL Eosinophils # (0-0.7) k/uL Basophils # (0-0.2) k/uL Hypochromasia Macrocytosis PT (9.0-12.0) sec INR (<1.2) APTT (22.0-30.0) sec Sodium 140 (137-145) mmol/L Potassium 5.1 (3.5-5.1) mmol/L Chloride 102 (98-107) mmol/L Carbon Dioxide 26 (22-30) mmol/L Anion Gap 12 mmol/L BUN 6 L (7-17) mg/dL Creatinine 0.57 (0.52-1.04) mg/dL Est GFR (CKD-EPI)AfAm >90 (>60 ml/min/1.73 sqM) Est GFR (CKD-EPI)NonAf >90 (>60 ml/min/1.73 sqM) Glucose 77 (74-99) mg/dL Plasma Lactic Acid Adalid 1.9 (0.7-2.0) mmol/L Calcium 8.6 (8.4-10.2) mg/dL Total Bilirubin 1.2 (0.2-1.3) mg/dL AST 56 H (14-36) U/L ALT 29 (4-34) U/L Alkaline Phosphatase 104 (38-126) U/L Troponin I 0.017 (0.000-0.034) ng/mL NT-Pro-B Natriuret Pep pg/mL Total Protein 6.4 (6.3-8.2) g/dL Albumin 4.2 (3.5-5.0) g/dL Urine Color Urine Appearance (Clear) Urine pH (5.0-8.0) Ur Specific [place] (1.001-1.035) Urine Protein (Negative) Urine Glucose (UA) (Negative) Urine Ketones (Negative) Urine Blood (Negative) Urine Nitrite (Negative) Urine Bilirubin (Negative) Urine Urobilinogen (<2.0) mg/dL Ur Leukocyte Esterase (Negative) Coronavirus (PCR) (Not Detectd) 02/09/22 02/09/22 Range/Units 10:09 10:10 WBC (3.8-10.6) k/uL RBC (3.80-5.40) m/uL Hgb (11.4-16.0) gm/dL Hct (34.0-46.0) % MCV (80.0-100.0) fL MCH (25.0-35.0) pg MCHC (31.0-37.0) g/dL RDW (11.5-15.5) % Plt Count (150-450) k/uL MPV Neutrophils % % Lymphocytes % % Monocytes % % Eosinophils % % Basophils % % Neutrophils # (1.3-7.7) k/uL Lymphocytes # (1.0-4.8) k/uL Monocytes # (0-1.0) k/uL Eosinophils # (0-0.7) k/uL Basophils # (0-0.2) k/uL Hypochromasia Macrocytosis PT (9.0-12.0) sec INR (<1.2) APTT (22.0-30.0) sec Sodium (137-145) mmol/L Potassium (3.5-5.1) mmol/L Chloride (98-107) mmol/L Carbon Dioxide (22-30) mmol/L Anion Gap mmol/L BUN (7-17) mg/dL Creatinine (0.52-1.04) mg/dL Est GFR (CKD-EPI)AfAm (>60 ml/min/1.73 sqM) Est GFR (CKD-EPI)NonAf (>60 ml/min/1.73 sqM) Glucose (74-99) mg/dL Plasma Lactic Acid Adalid (0.7-2.0) mmol/L Calcium (8.4-10.2) mg/dL Total Bilirubin (0.2-1.3) mg/dL AST (14-36) U/L ALT (4-34) U/L Alkaline Phosphatase (38-126) U/L Troponin I (0.000-0.034) ng/mL NT-Pro-B Natriuret Pep 66 pg/mL Total Protein (6.3-8.2) g/dL Albumin (3.5-5.0) g/dL Urine Color Colorless Urine Appearance Clear (Clear) Urine pH 6.5 (5.0-8.0) Ur Specific [place] 1.004 (1.001-1.035) Urine Protein Negative (Negative) Urine Glucose (UA) Negative (Negative) Urine Ketones Negative (Negative) Urine Blood Negative (Negative) Urine Nitrite Negative (Negative) Urine Bilirubin Negative (Negative) Urine Urobilinogen <2.0 (<2.0) mg/dL Ur Leukocyte Esterase Negative (Negative) Coronavirus (PCR) (Not Detectd) Disposition Clinical Impression: Viral pneumonia, Dyspnea Disposition: ADMITTED IP TO THIS HOSP Referrals: Kilo Tabares MD [Primary Care Provider] - 1-2 days Time of Disposition: 15:24
[2022-02-09 10:26] LABS: Appearance,Urine Clear (Clear); Bilirubin,Urine Negative (Negative); Blood,Urine Negative (Negative); Color,Urine Colorless; Glucose,Urine (UA) Negative (Negative); Ketones,Urine Negative (Negative); Leukocyte Esterase,Urine Negative (Negative); Nitrite,Urine Negative (Negative); PH, Urine 6.5 (5.0-8.0); Protein,Urine Negative (Negative); Specific Gravity,Urine 1.004 (1.001-1.035); Urobilinogen,Urine <2.0 mg/dL (<2.0)
[2022-02-09 10:48] LABS: Basophils # (A) 0.1 k/uL (0-0.2); Basophils % (A) 1 %; Eosinophils # (A) 0.3 k/uL (0-0.7); Eosinophils % (A) 3 %; HCT 48.2 % (34.0-46.0); HGB 15.1 gm/dL (11.4-16.0); Hypochromasia Marked; Lymphocytes # (A) 2.2 k/uL (1.0-4.8); Lymphocytes % (A) 20 %; MCHC 31.4 g/dL (31.0-37.0); Macrocytosis Slight; Mean Platelet Volume 8.8; Monocytes # (A) 0.4 k/uL (0-1.0); Monocytes % (A) 4 %; Neutrophils # (A) 7.4 k/uL (1.3-7.7); Neutrophils % (A) 70 %; Platelet Count 228 k/uL (150-450); RBC 4.72 m/uL (3.80-5.40); RDW 13.6 % (11.5-15.5); WBC 10.6 k/uL (3.8-10.6)
[2022-02-09 10:54] LABS: ALT 29 U/L (4-34); AST 56 U/L (14-36); African American GFR (CKD) >90 (>60 ml/min/1.73 sqM); Albumin 4.2 g/dL (3.5-5.0); Alkaline Phosphatase 104 U/L (38-126); Anion Gap 12 mmol/L; Blood Urea Nitrogen 6 mg/dL (7-17); Calcium 8.6 mg/dL (8.4-10.2); Carbon Dioxide 26 mmol/L (22-30); Chloride 102 mmol/L (98-107); Glucose 77 mg/dL (74-99); Non-African American GFR(CKD) >90 (>60 ml/min/1.73 sqM); Sodium 140 mmol/L (137-145); Total Bilirubin 1.2 mg/dL (0.2-1.3); Total Protein 6.4 g/dL (6.3-8.2)
[2022-02-09 10:55] LABS: INR 0.9 (<1.2); Partial Thromboplastin Time 23.7 sec (22.0-30.0); Prothrombin Time 10.2 sec (9.0-12.0)
--- NOTE | 2022-02-09 11:17 | XR ---
EXAMINATION TYPE: XR chest 2V DATE OF EXAM: 02/09/2022 COMPARISON: 06/15/2021 HISTORY: Shortness of breath and weakness TECHNIQUE: Frontal and lateral views of the chest are obtained. FINDINGS: The interstitium is diffusely mildly prominent. There are a few scattered areas of small focal airspa ce opacity left upper and lower lobe There is no pleural effusion or pneumothorax. Heart size is slightly prominent. The mediastinum and h ilum are unremarkable. The osseous structures are intact. IMPRESSION: Findings consistent with acute cardiopulmonary disease either infectious process involving the inters titium and airspace versus mild pulmonary edema. Clinical correlation is recommended.
[2022-02-09 11:19] LABS: Potassium 5.1 mmol/L (3.5-5.1)
[2022-02-09] MEDS ORDERED: ONDANSETRON 4 MG ODT STARTER PACK 2 TAB BTL PO STA (15:22)
[2022-02-09] MEDS ORDERED: ACET/COD 300 MG/30 MG STARTER PACK 6 TAB BTL PO STA (15:22)
[2022-02-09] MEDS ORDERED: NALOXONE 0.4 MG/ML 1 ML VIAL IVP PRN (15:24)
[2022-02-09] MEDS: IPRATROPIUM-ALBUTEROL 3 ML NEB INHALATION SCH ×2 (16:07→19:53)
[2022-02-09] MEDS: AZITHROMYCIN 500 MG in SODIUM CHLORIDE 0.9% 250 ML IVPB SCH (18:03)
[2022-02-09] MEDS: methylPREDNISolone SOD SUCCI 125 MG/2 ML VIAL IV SCH ×2 (18:37→23:50)
[2022-02-09] MEDS: HYDROcodone/APAP 5-325MG 1 EACH TAB PO PRN (21:38)
--- NOTE | 2022-02-10 00:17 | HP ---
HISTORY AND PHYSICAL CHIEF COMPLAINT: Weakness, shortness of breath, and cough. HISTORY OF PRESENT ILLNESS: This is a 56-year-old woman with a past medical history of multiple medical issues including COPD, GERD, being followed by Dr. Tabares in the outpatient setting, is still smoking. The patient was apparently exposed to COVID from the neighbors about a few weeks ago. The patient has shortness of breath, increasing cough, and sputum. COVID test was positive at home, but repeat COVID was negative. The patient admitted for further evaluation and treatment. Interstitial pneumonia has been suspected. There is no history of any headache, loss of consciousness, or seizures. PAST MEDICAL HISTORY: Reviewed include COPD. HOME MEDICATIONS: Again reviewed include Requip, dose and rest of medication noted. ALLERGIES: Baclofen. FAMILY HISTORY: Include CVA, TIA. SOCIAL HISTORY: History of smoking. REVIEW OF SYSTEMS: A 14-point review of systems is negative except as mentioned earlier. PHYSICAL EXAMINATION: VITAL SIGNS: Pulse is 85, blood pressure 170/74, respirations 18. HEENT: Conjunctivae normal. NECK: No JVD. CARDIOVASCULAR: S1, S2 muffled. RESPIRATIONS: Breath sounds diminished at the bases. Bilateral scattered rhonchi and crackles. ABDOMEN: Soft, obese. LEGS: No edema. NERVOUS SYSTEM: No focal deficits. SKIN: No ulcer, rash, bleeding. JOINTS: No active deforming arthropathy. LABS: Reviewed. Chest x-ray reviewed personally. ASSESSMENT: 1. Possible chronic obstructive pulmonary disease acute exacerbation with possible bilateral interstitial pneumonia. 2. Possible COVID-19. 3. History of asthma. 4. Gastroesophageal reflux disease. 5. Continued nicotine dependence. 6. Multiple medical issues. RECOMMENDATIONS AND DISCUSSION: This is a 56-year-old woman who presented with multiple complex medical issues, we will monitor the patient closely. We will initiate bronchodilators and empiric antibiotics. Pulmonary consultation. IV steroids. Smoking cessation recommended. Resume the home medications once they are confirmed. Prognosis guarded. Discussed with the patient and understands. Further recommendation to follow. See orders for further details. MMODL / IJN: [id number] /
[2022-02-10] MEDS: HYDROcodone/APAP 5-325MG 1 EACH TAB PO PRN (05:14)
[2022-02-10] MEDS: methylPREDNISolone SOD SUCCI 125 MG/2 ML VIAL IV SCH ×2 (05:35→16:46)
[2022-02-10] MEDS: IPRATROPIUM-ALBUTEROL 3 ML NEB INHALATION SCH ×4 (07:34→20:27)
[2022-02-10 08:58] LABS: Basophils # (A) 0.02 X 10*3/uL (0.00-0.10); Basophils % (A) 0.2 %; Eosinophils # (A) 0 X 10*3/uL (0.04-0.35); Eosinophils % (A) 0 %; HCT 50.2 % (37.2-46.3); HGB 15.3 g/dL (12.0-15.0); Immature Grans, Automated 0.4 %; Lymphocytes # (A) 0.77 X 10*3/uL (0.90-5.00); Lymphocytes % (A) 8.3 %; MCH 31.5 pg (27.0-32.0); MCHC 30.5 g/dL (32.0-37.0); MCV 103.5 fL (80.0-97.0); Mean Platelet Volume 10.7 fL (9.5-12.2); Monocytes # (A) 0.08 X 10*3/uL (0.20-1.00); Monocytes % (A) 0.9 %; NRBC Per 100 WBC 0 /100 WBCS (0.0-0.0); Neutrophils # (A) 8.42 X 10*3/uL (1.80-7.70); Neutrophils % (A) 90.2 %; Platelet Count 280 X 10*3/uL (140-440); RBC 4.85 X 10*6/uL (4.10-5.20); RDW 14.4 % (11.5-14.5); WBC 9.33 X 10*3/uL (4.50-10.00)
[2022-02-10 09:04] LABS: African American GFR (CKD) 111.5 (60.0-200.0); Albumin/Globulin Ratio 2.35 (1.60-3.17); Anion Gap 11.2 mmol/L (10.00-18.00); BUN/Creat Ratio 13.29 Ratio (12.00-20.00); Blood Urea Nitrogen 9.3 mg/dL (9.0-27.0); Calcium 9.1 mg/dL (8.7-10.3); Carbon Dioxide 31.8 mmol/L (20.0-27.5); Globulin 1.7 g/dL (1.6-3.3); Non-African American GFR(CKD) 96.2 (60.0-200.0); Total Bilirubin 0.4 mg/dL (0.30-1.20); Total Protein 5.7 g/dL (6.2-8.2)
[2022-02-10] MEDS ORDERED: DICLOFENAC SODIUM GEL 100 GM TUBE TOPICAL PRN (09:49)
[2022-02-10] MEDS ORDERED: FLUTICASONE 50MCG/SPRAY NASAL 16GM EA NOSTRIL PRN (09:49)
[2022-02-10] MEDS ORDERED: ALBUTEROL HFA INHALER INHALATION PRN (09:52)
[2022-02-10] MEDS: AZITHROMYCIN 500 MG in SODIUM CHLORIDE 0.9% 250 ML IVPB SCH (10:31)
[2022-02-10] MEDS: ASPIRIN 81 MG PO SCH (10:32)
[2022-02-10] MEDS: CHOLECALCIFEROL 25 MCG (1000 IU) TABLET PO SCH (10:32)
[2022-02-10] MEDS: PANTOPRAZOLE 40 MG TABLET PO SCH ×2 (10:33→17:34)
[2022-02-10] MEDS: MEMANTINE 10 MG TAB PO SCH ×2 (10:33→19:45)
[2022-02-10] MEDS: ZINC SULFATE 220 MG CAP PO SCH ×2 (10:33→10:34)
[2022-02-10] MEDS: MULTIVITAMINS, THERA 1 EACH TAB PO SCH (10:34)
[2022-02-10] MEDS: VERAPAMIL 40 MG TAB PO SCH (10:34)
[2022-02-10] MEDS: GABAPENTIN 400 MG CAP PO SCH ×3 (10:34→19:44)
[2022-02-10] MEDS: MONTELUKAST 10 MG TAB PO SCH (10:35)
[2022-02-10] MEDS: LORazepam 1 MG TAB PO PRN ×3 (10:35→19:45)
[2022-02-10] MEDS: PARoxetine 20 MG TAB PO SCH (10:35)
[2022-02-10] MEDS: FOLIC ACID 1 MG TAB PO SCH (10:35)
[2022-02-10] MEDS: hydroCHLOROthiazide 25 MG TAB PO SCH (10:36)
[2022-02-10] MEDS: ASCORBIC ACID 500 MG TAB PO SCH (10:36)
[2022-02-10] MEDS: oxyCODONE-APAP 7.5-325MG 1 EACH TAB PO PRN ×3 (10:59→23:22)
[2022-02-10] MEDS: BUTALB/APAP/CAFF 50-325-40MG TAB PO PRN ×2 (10:59→19:45)
[2022-02-10] MEDS: busPIRone HCl 10 MG TAB PO SCH ×3 (11:00→19:44)
[2022-02-10] MEDS ORDERED: IPRATROPIUM-ALBUTEROL 3 ML NEB INHALATION PRN (12:20)
--- NOTE | 2022-02-10 13:30 | P.CNPUL ---
History of Present Illness Consult date: 02/10/22 Reason for consult: dyspnea History of present illness: 56-year-old female patient, she was sick for over 2 weeks and she was exposed to cold with 19 infection. The patient herself was vaccinated and she tested negative urine hospital. Nevertheless, the patient was having excessive body aches, cough, shortness of breath, chest pain and for that reason she ended up in a hospital. She is well-known to me as the patient has chronic COPD/asthma maintained on Trelegy Ellipta on outpatient basis. She also uses DuoNeb treatments [id number] and Mucinex as needed. For that reason, the patient came into the hospital. No major swelling in lower extremities. No palpitations. Her belly was feeling to be somewhat bloated. The patient also had a fall yesterday and she bumped her head but she doesn't have any loss of consciousness that she doesn't any headaches or any focal neurological deficit for now. The patient in the emergency was found to have a temperature of 99.7F. She was hemodynamically stable. Blood work shows a white cell count 10.6 with a hemoglobin of 15.1 and a platelet count of 228. Sodium is at 140. Glucose at 77. Coagulation profile was within normal limits. Troponin was 0.017. The patient also had a proBNP level of 66, UA was negative, chest x-ray showed some cardiomegaly and prominent interstitium. The patient was diagnosed having viral pneumonia and she was admitted to the hospital. The patient currently is on empiric antibiotic coverage with Zithromax. The patient is also on DuoNeb nebulized treatments [id number], and all of her outpatient medications have been resumed. Review of Systems Constitutional: Denies chills, Denies fever Eyes: denies blurred vision, denies pain Ears, nose, mouth and throat: Denies headache, Denies sore throat Cardiovascular: Denies chest pain, no evidence of any congestion heart failure based on a previous echocardiogram. No palpitation. No angina. Respiratory: cough, SOB, wheezing Gastrointestinal: Denies abdominal pain, Denies diarrhea, Denies nausea, Denies vomiting Genitourinary: Denies dysuria, Denies hematuria Musculoskeletal: Denies myalgias Integumentary: Denies pruritus, Denies rash Neurological: normal level of consciousness she also has manifestations of MS including numbness and tingling in intensive shocks and difficulty with mobility. She has also frequent falls. Psychiatric: Denies anxiety, Denies depression Endocrine: Denies fatigue, Denies weight change Past Medical History Past Medical History: Asthma, Cancer, COPD, Eye Disorder, Fibromyalgia, GERD/Reflux, Hearing Disorder / Deafness, Hypertension, Memory Impairment, Musculoskeletal Disorder, Neurologic Disorder, Osteoarthritis (OA), Pneumonia, Syncope Additional Past Medical History / Comment(s): MS relapsing/remitting type, chronic bilateral eye pain/optic neuritis/ poor vision, cataracts bilaterally, chronic occipital neuralgia, osteoporosis, RLS, chronic hypoxic respiratory failure with home oxygen 2L/NC prn, chronic bronchitis, immunocompromised, elevated blood sugar with steroid use, uterine cancer with hysterectomy/radiation, heart murmur, mild cognitive impairment, chronic vertigo, falls, rheumatic fever as child, tinnitis bilaterally, allergic r hinitis, trigeminal neuralgia. History of Any Multi-Drug Resistant Organisms: None Reported Past Surgical History: Bladder Surgery, Heart Catheterization, Hysterectomy, Tubal Ligation Additional Past Surgical History / Comment(s): Nerve blocks, bladder suspension, fibroid removal. PA[facility] Past Anesthesia/Blood Transfusion Reactions: No Reported Reaction, Postoperative Nausea & Vomiting (PONV) Additional Past Anesthesia/Blood Transfusion Reaction / Comment(s): mild cl austrophobia Past Psychological History: Anxiety, Depression Smoking Status: Current some day smoker - Past Family History Mother Family Medical History: CVA/TIA, Myocardial Infarction (MS) Additional Family Medical History / Comment(s): Mother is alive at age 75 with history of brain aneurysm, 3 strokes and 2 myocardial infarctions. Brain aneurysms run on mother's side of family Father Family Medical History: Coronary Artery Disease (CAD) Additional Family Medical History / Comment(s): Father at age 72 from a cardiac arrest thought to be due to a myocardial infarction. Sister(s) Family Medical History: No Reported History Additional Family Medical History / Comment(s): Patient has 2 sisters with no major medical problems. Patient does not have any brothers. Patient has 2 adult children with no major medical problems. Patient is only family member with MS. Medications and Allergies Home Medications Medication Instructions Recorded Confirmed Type LORazepam [Ativan] 1 mg PO TID PRN 02/20/14 02/09/22 History Verapamil HCl [Calan] 120 mg PO DAILY 02/20/14 02/09/22 History Butalb/APAP/Caff 50-325-40Mg 1 tab PO Q8H PRN 03/25/17 02/09/22 History [Fioricet 50-325-40] rOPINIRole HCL [Requip] 0.25 mg PO TID #90 tab 01/31/18 02/09/22 Rx Multivitamins, Thera [Multivitamin 1 tab PO DAILY 05/07/18 02/09/22 History (formulary)] Pantoprazole Sodium [Protonix] 40 mg PO BID 10/31/18 02/09/22 History Memantine [Namenda] 10 mg PO BID 11/22/18 02/09/22 History Montelukast [Singulair] 10 mg PO DAILY 11/22/18 02/09/22 History hydroCHLOROthiazide [Hydrodiuril] 25 mg PO DAILY tab 11/26/18 02/09/22 Rx Fluticasone Nasal [place] [Flonase 2 spr EA NOSTRIL DAILY PRN 04/28/19 02/09/22 History Nasal [place]] methocarbamoL [Robaxin-750] 750 mg PO TID PRN 04/28/19 02/09/22 History Folic Acid 1 mg PO DAILY #30 tab 05/02/19 02/09/22 Rx Albuterol Sulfate [Ventolin HFA] 2 puff INHALATION RT-QID PRN 08/09/19 02/09/22 History Ascorbic Acid [Vitamin C] 1,000 mg PO DAILY 01/30/20 02/09/22 History Docusate [Colace] 100 mg PO DAILY PRN 01/30/20 02/09/22 History Zinc Gluconate [Zinc] 50 mg PO DAILY 01/30/20 02/09/22 History Diclofenac Sodium Gel [Voltaren 2 gm TOPICAL QID PRN #0 03/26/20 02/09/22 History Gel] Elderberry Fruit and Flower [Black 1 cap PO DAILY 06/14/20 02/09/22 History Elderberry 575 mg Cap] Turmeric Root Extract [Turmeric] 500 mg PO DAILY 06/14/20 02/09/22 History Gabapentin 800 mg PO TID 08/21/20 02/09/22 History Topiramate [Topamax] 100 mg PO BID 08/21/20 02/09/22 History oxyCODONE-APAP 7.5-325MG [Percocet 1 tab PO TID PRN 10/30/20 02/09/22 History 7.5-325 mg] Sucralfate [Carafate] 1 gm PO ACHS #120 tab 04/03/21 02/09/22 Rx Cholecalciferol [Vitamin D3 (25 50 mcg PO DAILY 06/15/21 02/09/22 History Mcg = 1000 Iu)] Fluticasone/Umeclidin/Vilanter 1 puff INHALATION RT-DAILY 06/15/21 02/09/22 History [Trelegy Ellipta 200-62.5-25] PARoxetine HCL [Paxil] 40 mg PO DAILY 06/15/21 02/09/22 History busPIRone HCl [Buspar] 10 mg PO TID 06/15/21 02/09/22 History guaiFENesin-DM 600/30MG [Mucinex 2 tab PO Q12HR PRN 06/15/21 02/09/22 History Dm] Ipratropium-Albuterol Nebulize 3 ml INHALATION RT-QID PRN 08/13/21 02/09/22 History [Duoneb 0.5 mg-3 mg/3 ml Soln] Aspirin EC [Ecotrin Low Dose] 81 mg PO DAILY 02/09/22 02/09/22 History Budesonide [Pulmicort] 0.5 mg INHALATION RT-BID 02/09/22 02/09/22 History Promethaz-Cod 6.25-10 mg/5 ml 5 ml PO Q6H PRN 02/09/22 02/09/22 History [Phenergan with Codeine] Allergies Allergy/AdvReac Type Severity Reaction Status Date / Time baclofen AdvReac URINARY Verified 02/09/22 17:30 ISSUES dexamethasone [From Decadron] AdvReac "THOMPSON Verified 02/09/22 17:30 SKIN"/DEHYDRATION Physical Exam Vitals: Vital Signs Temp Pulse Pulse Resp BP BP Pulse Ox 02/10/22 11:19 84 02/10/22 11:08 76 02/10/22 11:07 87 18 148/87 97 02/10/22 09:15 98.8 F 82 18 138/86 94 L 02/10/22 07:46 76 02/10/22 07:36 74 02/10/22 02:00 97.6 F 85 12 140/88 96 02/09/22 20:01 78 02/09/22 20:00 98.1 F 89 14 135/76 96 02/09/22 19:55 74 02/09/22 17:13 99.0 F 81 20 116/69 97 02/09/22 16:18 77 18 02/09/22 16:07 86 18 Intake and Output 02/09/22 02/10/22 02/10/22 22:59 06:59 14:59 Intake Total 250 350 Output Total 0 Balance 250 350 Intake: IV 250 Azithromycin 500 mg In 250 Sodium Chloride 0.9% 250 ml @ 250 mls/hr IVPB DAILY [facility] Rx#:[id number] Oral 350 Output: Urine 0 Other: # Voids 0 3 # Bowel Movements 3 GENERAL EXAM: Alert, animated -Macedonian 51-year-old female, in no acute distress HEAD: Normocephalic/atraumatic. EYES: Normal reaction of pupils, equal size. Conjunctiva pink, sclera white. NOSE: Clear with pink turbinates. THROAT: No erythema or exudates. NECK: No masses, no JVD, no thyroid enlargement, no adenopathy. CHEST: No chest wall deformity. Symmetrical expansion. LUNGS: Equal air entry with no crackles, wheeze, rhonchi or dullness. CVS: Regular rate and rhythm, normal S1 and S2, no gallops, no murmurs, no rubs ABDOMEN: Soft, nontender. No hepatosplenomegaly, normal bowel sounds, no guarding or rigidity. EXTREMITIES: No clubbing, no edema, no cyanosis, 2+ pulses and upper and lower extremities. MUSCULOSKELETAL: Muscle strength and tone normal. SPINE: No scoliosis or deformity SKIN: No rashes CENTRAL NERVOUS SYSTEM: Alert and oriented -3. No focal deficits, tone is normal in all 4 extremities. PSYCHIATRIC: Alert and oriented -3. Appropriate affect. Intact judgment and insight. Results - Laboratory Findings CBC and BMP: 02/10/22 05:04 02/10/22 05:04 PT/INR, D-dimer PT 10.2 sec (9.0-12.0) 02/09/22 10:09 INR 0.9 (<1.2) 02/09/22 10:09 Abnormal lab findings: Abnormal Labs 02/09/22 02/09/22 02/10/22 10:09 10: 05:04 Hgb 15.3 H Hct 48.2 H 50.2 H MCV 102.0 H 103.5 H MCHC 30.5 L Neutrophils # 8.42 H Lymphocytes # 0.77 L Monocytes # 0.08 L Eosinophils # 0 L Carbon Dioxide BUN 6 L Glucose AST 56 H Total Protein 02/10/22 05:04 Hgb Hct MCV MCHC Neutrophils # Lymphocytes # Monocytes # Eosinophils # Carbon Dioxide 31.8 H BUN Glucose 158 H AST Total Protein 5.7 L Assessment and Plan Plan: Acute exacerbation of COPD/asthma. The patient is still smoking cigarettes. The patient will maintain on Trelegy Ellipta on an outpatient basis. The vital screening including inflow was and COVID was negative. There is some increase of 0 markings bilaterally on the chest x-ray. No clear space disease. Patient was hospitalized according Acute hypoxic respiratory failure currently on 2 L of O2 nasal cannula chronic multiple sclerosis of the relapsing remitting type, received multiple doses of IV Solu-Medrol and outpatient basis under the care of Dr. Ramirez. minimal troponin leak, nonspecific, obesity. chronic ALLERGIC rhinitis hypertension chronic smoking fibromyalgia Plan Continue bronchodilators and steroid and antibiotics. Agree on the current management. Home medications have been resumed. We'll continue to follow. She'll be admitted to the medical floor and her condition will be further optimized.
[2022-02-10] MEDS: SUCRALFATE 1 GM TAB PO SCH ×3 (13:38→19:44)
[2022-02-10] MEDS: methocarbamoL 750 MG TAB PO PRN (13:38)
[2022-02-10] MEDS: NICOTINE 14MG/24HR PATCH TRANSDERM SCH (13:38)
--- NOTE | 2022-02-10 15:49 | P.PN ---
Subjective Progress Note Date: 02/10/22 This is a 56 year old female who presents with increase in shortness of breath and difficulty breathing. Presents with mild low grade fever, chills, body aches. States she was exposed to covid from a close neighbor 2 weeks ago and since than has been progressively feeling worse. Also states she feels turning the heat on made her worse also. Covid swab negative. She wears 2L nasal cannula chronically. Currently on 2L oxygen with good saturations. She does have some faint scattered wheezing. She is maintained on trelegy outpatient. Continues on inhalers here, IV azithromycin, IV steroids. Patient is daily smoker and requesting nicotine patch. Pulmonary consultation pending at this time. Home medications have been resumed, patient does have extensive medical history. Labs today reviewed, mostly unremarkable, blood glucose 158. Review of Systems Constitutional: Denied any fatigue denied any fever. Cardio vascular: denied any chest pain, palpitations Gastrointestinal: denied any nausea, vomiting, diarrhea Pulmonary: Denied any shortness of breath cough Neurologic denied any new focal deficits All inpatient medications were reviewed and appropriate changes in these medications as dictated in the interval history and assessment and plan. PHYSICAL EXAMINATION: GENERAL: The patient is alert and oriented x3, not in any acute distress. Well developed, well nourished. HEENT: Pupils are round and equally reacting to light. EOMI. No scleral icterus. No conjunctival pallor. Normocephalic, atraumatic. No pharyngeal erythema. No thyromegaly. CARDIOVASCULAR: S1 and S2 present. No murmurs, rubs, or gallops. PULMONARY: Chest is clear to auscultation, no wheezing or crackles. ABDOMEN: Soft, nontender, nondistended, normoactive bowel sounds. No palpable organomegaly. MUSCULOSKELETAL: No joint swelling or deformity. EXTREMITIES: No cyanosis, clubbing, or pedal edema. NEUROLOGICAL: Gross neurological examination did not reveal any focal deficits. SKIN: No rashes. Assessment and Plan Assessment Shortness of breath and cough secondary to acute asthma/COPD exacerbation Chronic hypoxic respiratory failure maintained on 2L nasal cannula Gastroesophageal reflux disease Continued nicotine dependence Chronic allergic rhinitis Hypertension Fibromyalgia Multiple sclerosis - relapsing, remitting type History uterine cancer status post hysterectomy/radiation Neuralgia Anxiety/depression Obesity GI Prophylaxis DVT Prophylaxis Plan Continue bronchodilators, IV steroids Continue empiric antibiotic coverage Procalcitonin level pending Pulmonary following patient Monitor blood glucose The impression and plan of care has been dictated by Marisela Orona Nurse Practitioner as directed. Dr. Clary MD I have performed a history and physical examination and medical decision making of this patient, discussed the same with the dictator, and agree with the dictators assessment and plan as written, documented as a scribe. Based on total visit time, I have performed more than 50% of this visit. Objective - Vital Signs Vital signs: Vital Signs Temp 98.8 F 02/10/22 09:15 Pulse 85 02/10/22 13:26 Resp 18 02/10/22 13:26 BP 127/76 02/10/22 13:26 Pulse Ox 98 02/10/22 13:26 FiO2 Intake & Output 02/09/22 02/10/22 02/10/22 18:59 06:59 18:59 Intake Total 250 350 Output Total 0 Balance 250 350 Weight 107.048 kg Intake: IV 250 Azithromycin 500 mg In 250 Sodium Chloride 0.9% 250 ml @ 250 mls/hr IVPB DAILY [facility] Rx#:[id number] Oral 350 Output: Urine 0 Other: # Voids 0 3 # Bowel Movements 3 - Labs CBC & Chem 7: 02/10/22 05:04 02/10/22 05:04 Labs: Abnormal Lab Results - Last 24 Hours (Table) 02/10/22 02/10/22 Range/Units 05:04 05:04 Hgb 15.3 H (12.0-15.0) g/dL Hct 50.2 H (37.2-46.3) % MCV 103.5 H (80.0-97.0) fL MCHC 30.5 L (32.0-37.0) g/dL Neutrophils # 8.42 H (1.80-7.70) X 10*3/uL Lymphocytes # 0.77 L (0.90-5.00) X 10*3/uL Monocytes # 0.08 L (0.20-1.00) X 10*3/uL Eosinophils # 0 L (0.04-0.35) X 10*3/uL Carbon Dioxide 31.8 H (20.0-27.5) mmol/L Glucose 158 H (70-110) mg/dL Total Protein 5.7 L (6.2-8.2) g/dL Assessment and Plan Time with Patient: Less than 30
[2022-02-10] MEDS: TOPIRAMATE 100 MG TAB PO SCH (19:44)
[2022-02-10] MEDS: BUDESONIDE 0.5 MG/2 ML NEBU INHALATION SCH (20:28)
[2022-02-10 20:56] LABS: Glucose,Whole Blood 95 mg/dL (70-110)
[2022-02-10] MEDS: HEPARIN SODIUM,PORCINE/PF 5,000 UNIT/0.5 ML SYRINGE SQ SCH (21:51)
[2022-02-10] MEDS: MELATONIN 5 MG TABLET PO SCH (21:51)
[2022-02-10] MEDS: methylPREDNISolone SOD SUCCI 40 MG/ML 1 ML VIAL IV SCH (21:51)
[2022-02-11 06:58] LABS: Glucose,Whole Blood 124 mg/dL (70-110)
[2022-02-11] MEDS ORDERED: IPRATROPIUM 0.5 MG/2.5 ML NEBU INHALATION SCH (08:00)
[2022-02-11] MEDS ORDERED: SYMBICORT 80-4.5 MCG INHALER INHALATION SCH (08:00)
[2022-02-11] MEDS: PANTOPRAZOLE 40 MG TABLET PO SCH ×2 (08:22→16:56)
[2022-02-11] MEDS: ASCORBIC ACID 500 MG TAB PO SCH (08:22)
[2022-02-11] MEDS: MULTIVITAMINS, THERA 1 EACH TAB PO SCH (08:23)
[2022-02-11] MEDS: MONTELUKAST 10 MG TAB PO SCH (08:23)
[2022-02-11] MEDS: MEMANTINE 10 MG TAB PO SCH ×2 (08:23→21:12)
[2022-02-11] MEDS: SUCRALFATE 1 GM TAB PO SCH ×4 (08:23→21:12)
[2022-02-11] MEDS: hydroCHLOROthiazide 25 MG TAB PO SCH (08:23)
[2022-02-11] MEDS: oxyCODONE-APAP 7.5-325MG 1 EACH TAB PO PRN ×3 (08:24→23:39)
[2022-02-11] MEDS: CHOLECALCIFEROL 25 MCG (1000 IU) TABLET PO SCH (08:24)
[2022-02-11] MEDS: ASPIRIN 81 MG PO SCH (08:24)
[2022-02-11] MEDS: PARoxetine 20 MG TAB PO SCH (08:24)
[2022-02-11] MEDS: GABAPENTIN 400 MG CAP PO SCH ×3 (08:24→21:12)
[2022-02-11] MEDS: FOLIC ACID 1 MG TAB PO SCH (08:24)
[2022-02-11] MEDS: LORazepam 1 MG TAB PO PRN ×3 (08:25→23:40)
[2022-02-11] MEDS: methocarbamoL 750 MG TAB PO PRN ×2 (08:25→16:03)
[2022-02-11] MEDS: busPIRone HCl 10 MG TAB PO SCH ×3 (08:25→21:12)
[2022-02-11] MEDS: TOPIRAMATE 100 MG TAB PO SCH ×2 (08:25→21:12)
[2022-02-11] MEDS: HEPARIN SODIUM,PORCINE/PF 5,000 UNIT/0.5 ML SYRINGE SQ SCH ×2 (08:26→21:12)
[2022-02-11] MEDS: AZITHROMYCIN 500 MG in SODIUM CHLORIDE 0.9% 250 ML IVPB SCH (08:26)
[2022-02-11] MEDS: methylPREDNISolone SOD SUCCI 40 MG/ML 1 ML VIAL IV SCH ×2 (08:26→21:12)
[2022-02-11] MEDS: NICOTINE 14MG/24HR PATCH TRANSDERM SCH (08:27)
[2022-02-11] MEDS: VERAPAMIL 40 MG TAB PO SCH (08:27)
[2022-02-11] MEDS: ZINC SULFATE 220 MG CAP PO SCH (08:28)
[2022-02-11] MEDS: IPRATROPIUM-ALBUTEROL 3 ML NEB INHALATION SCH ×4 (08:34→20:50)
[2022-02-11] MEDS: BUDESONIDE 0.5 MG/2 ML NEBU INHALATION SCH ×2 (08:34→20:50)
[2022-02-11] MEDS: BUTALB/APAP/CAFF 50-325-40MG TAB PO PRN ×2 (09:28→15:52)
[2022-02-11 11:40] LABS: Glucose,Whole Blood 126 mg/dL (70-110)
--- NOTE | 2022-02-11 13:07 | P.PN ---
Subjective Progress Note Date: 02/11/22 56-year-old female patient, she was sick for over 2 weeks and she was exposed to cOCID 19 infection. The patient herself was vaccinated and she tested negative urine hospital. Nevertheless, the patient was having excessive body aches, cough, shortness of breath, chest pain and for that reason she ended up in a hospital. She is well-known to me as the patient has chronic COPD/asthma maintained on Trelegy Ellipta on outpatient basis. She also uses DuoNeb treatments [id number] and Mucinex as needed. For that reason, the patient came into the hospital. No major swelling in lower extremities. No palpitations. Her belly was feeling to be somewhat bloated. The patient also had a fall yesterday and she bumped her head but she doesn't have any loss of consciousness that she doesn't any headaches or any focal neurological deficit for now. The patient in the emergency was found to have a temperature of 99.7F. She was hemodynamically stable. Blood work shows a white cell count 10.6 with a hemoglobin of 15.1 and a platelet count of 228. Sodium is at 140. Glucose at 77. Coagulation profile was within normal limits. Troponin was 0.017. The patient also had a proBNP level of 66, UA was negative, chest x-ray showed some cardiomegaly and prominent interstitium. The patient was diagnosed having viral pneumonia and she was admitted to the hospital. The patient currently is on empiric antibiotic coverage with Zithromax. The patient is also on DuoNeb nebulized treatments [id number], and all of her outpatient medications have been resumed. 02/11/2022, she is still short of breath and limited improvement since yesterday. She feels that she has mucus stuck within her lungs and she is unable to cough it out. She was hemodynamically stable on 3 L nasal cannula. She remains on bronchodilators and steroids. Antibiotic coverage is with Rocephin and Zithromax. No other new complaints otherwise. Blood work showing no significant hyperglycemia. Objective - Vital Signs Vital signs: Vital Signs Temp 98.7 F 02/11/22 07:45 Pulse 76 02/11/22 11:56 Resp 18 02/11/22 08:47 BP 143/77 02/11/22 07:45 Pulse Ox 96 02/11/22 08:34 FiO2 Intake & Output 02/10/22 02/11/22 02/11/22 18:59 06:59 18:59 Other: # Voids 1 1 # Bowel Movements 1 - Exam GENERAL EXAM: Alert, animated -[place] 51-year-old female, in no acute distress HEAD: Normocephalic/atraumatic. EYES: Normal reaction of pupils, equal size. Conjunctiva pink, sclera white. NOSE: Clear with pink turbinates. THROAT: No erythema or exudates. NECK: No masses, no JVD, no thyroid enlargement, no adenopathy. CHEST: No chest wall deformity. Symmetrical expansion. LUNGS: Equal air entry with no crackles, wheeze, rhonchi or dullness. CVS: Regular rate and rhythm, normal S1 and S2, no gallops, no murmurs, no rubs ABDOMEN: Soft, nontender. No hepatosplenomegaly, normal bowel sounds, no guarding or rigidity. EXTREMITIES: No clubbing, no edema, no cyanosis, 2+ pulses and upper and lower extremities. MUSCULOSKELETAL: Muscle strength and tone normal. SPINE: No scoliosis or deformity SKIN: No rashes CENTRAL NERVOUS SYSTEM: Alert and oriented -3. No focal deficits, tone is normal in all 4 extremities. PSYCHIATRIC: Alert and oriented -3. Appropriate affect. Intact judgment and insight. - Labs CBC & Chem 7: 02/10/22 05:04 02/10/22 05:04 Labs: Abnormal Lab Results - Last 24 Hours (Table) 02/11/22 02/11/22 Range/Units 06:57 11:38 POC Glucose (mg/dL) 124 H 126 H (70-110) mg/dL Assessment and Plan Plan: Acute exacerbation of COPD/asthma. The patient is still smoking cigarettes. The patient will maintain on Trelegy Ellipta on an outpatient basis. The vital screening including inflow was and COVID was negative. There is some increase of 0 markings bilaterally on the chest x-ray. No clear space disease. Patient was hospitalized according Acute hypoxic respiratory failure currently on 2 L of O2 nasal cannula chronic multiple sclerosis of the relapsing remitting type, received multiple doses of IV Solu-Medrol and outpatient basis under the care of Dr. Ramirez. minimal troponin leak, nonspecific, obesity. chronic ALLERGIC rhinitis hypertension chronic smoking fibromyalgia Plan limited improvement Continue bronchodilators and steroid and antibiotics. Agree on the current management. possible broncchoscopy witthin the next 24-48 hours if no improvements. Continue same treatment for now
[2022-02-11] MEDS: NYSTATIN 100,000 UNIT/ML SUSP 500,000 UNIT/5 ML CUP PO SCH ×3 (15:07→21:12)
[2022-02-11] MEDS: guaiFENesin-DM 600/30MG 1 EACH TAB.ER.12H PO PRN (16:03)
--- NOTE | 2022-02-11 16:21 | P.PN ---
Subjective Progress Note Date: 02/11/22 This is a 56 year old female who presents with increase in shortness of breath and difficulty breathing. Presents with mild low grade fever, chills, body aches. States she was exposed to covid from a close neighbor 2 weeks ago and since than has been progressively feeling worse. Also states she feels turning the heat on made her worse also. Covid swab negative. She wears 2L nasal cannula chronically. Currently on 2L oxygen with good saturations. She does have some faint scattered wheezing. She is maintained on trelegy outpatient. Continues on inhalers here, IV azithromycin, IV steroids. Patient is daily smoker and requesting nicotine patch. Pulmonary consultation pending at this time. Home medications have been resumed, patient does have extensive medical history. Labs today reviewed, mostly unremarkable, blood glucose 158. 02/11/2022 Patient is evaluated today on medical floor. She continues to complain of chest tightness especially with deep inspiration. There is no wheezing noted today on exam. She is maintained on home oxygen of 3L. Patient does complain of feeling like her throat is swollen, she has a white coating on tongue and states she was using nystatin at home which has been resumed today. Unable to produce sputum sample. Blood glucose in the 120s. Patient continues on bronchodilators and IV steroids, IV azithromycin. Further recommendations from pulmonary. Review of Systems Constitutional: Denied any fatigue denied any fever. Cardio vascular: denied any chest pain, palpitations Gastrointestinal: denied any nausea, vomiting, diarrhea Pulmonary: Reports shortness of breath, chest tightness. Neurologic denied any new focal deficits All inpatient medications were reviewed and appropriate changes in these medications as dictated in the interval history and assessment and plan. PHYSICAL EXAMINATION: GENERAL: The patient is alert and oriented x3, not in any acute distress. Well developed, well nourished. HEENT: Pupils are round and equally reacting to light. EOMI. No scleral icterus. No conjunctival pallor. Normocephalic, atraumatic. No pharyngeal erythema. No thyromegaly. White coating on tongue. CARDIOVASCULAR: S1 and S2 present. No murmurs, rubs, or gallops. PULMONARY: Chest is clear to auscultation, no wheezing or crackles. ABDOMEN: Soft, nontender, nondistended, normoactive bowel sounds. No palpable organomegaly. MUSCULOSKELETAL: No joint swelling or deformity. EXTREMITIES: No cyanosis, clubbing, or pedal edema. NEUROLOGICAL: Gross neurological examination did not reveal any focal deficits. SKIN: No rashes. Assessment and Plan Assessment Shortness of breath and cough secondary to acute asthma/COPD exacerbation Chronic hypoxic respiratory failure maintained on 2-3L nasal cannula Gastroesophageal reflux disease Continued nicotine dependence Chronic allergic rhinitis Hypertension Fibromyalgia Multiple sclerosis - relapsing, remitting type History uterine cancer status post hysterectomy/radiation Neuralgia Anxiety/depression Obesity GI Prophylaxis DVT Prophylaxis Plan Continue bronchodilators, IV steroids Continue empiric antibiotic coverage Procalcitonin not suggestive of acute bacterial infection Further recommendations from pulmonary services Increase activity level as tolerated Monitor blood glucose The impression and plan of care has been dictated by Marisela Orona Nurse Practitioner as directed. Dr. Clary MD I have performed a history and physical examination and medical decision making of this patient, discussed the same with the dictator, and agree with the dictators assessment and plan as written, documented as a scribe. Based on total visit time, I have performed more than 50% of this visit. Objective - Vital Signs Vital signs: Vital Signs Temp 98.2 F 02/11/22 13:32 Pulse 77 02/11/22 14:53 Resp 18 02/11/22 14:53 BP 128/77 02/11/22 13:32 Pulse Ox 96 02/11/22 13:32 FiO2 Intake & Output 02/10/22 02/11/22 02/11/22 18:59 06:59 18:59 Other: Voiding Method Toilet # Voids 1 1 # Bowel Movements 1 - Labs CBC & Chem 7: 02/10/22 05:04 02/10/22 05:04 Labs: Abnormal Lab Results - Last 24 Hours (Table) 02/11/22 02/11/22 Range/Units 06:57 11:38 POC Glucose (mg/dL) 124 H 126 H (70-110) mg/dL Assessment and Plan Time with Patient: Less than 30
[2022-02-11 16:33] LABS: Glucose,Whole Blood 108 mg/dL (70-110)
[2022-02-11 20:58] LABS: Glucose,Whole Blood 101 mg/dL (70-110)
[2022-02-11] MEDS: MELATONIN 5 MG TABLET PO SCH (21:12)
[2022-02-12] MEDS: BUTALB/APAP/CAFF 50-325-40MG TAB PO PRN ×4 (00:17→23:55)
[2022-02-12] MEDS: methocarbamoL 750 MG TAB PO PRN ×4 (00:17→23:55)
[2022-02-12] MEDS: IPRATROPIUM-ALBUTEROL 3 ML NEB INHALATION SCH ×4 (06:57→21:01)
[2022-02-12] MEDS: BUDESONIDE 0.5 MG/2 ML NEBU INHALATION SCH ×2 (07:04→21:01)
[2022-02-12 07:13] LABS: Glucose,Whole Blood 86 mg/dL (70-110)
[2022-02-12] MEDS: hydroCHLOROthiazide 25 MG TAB PO SCH (08:56)
[2022-02-12] MEDS: PARoxetine 20 MG TAB PO SCH (08:56)
[2022-02-12] MEDS: busPIRone HCl 10 MG TAB PO SCH ×3 (08:58→21:08)
[2022-02-12] MEDS: PANTOPRAZOLE 40 MG TABLET PO SCH ×2 (08:58→17:14)
[2022-02-12] MEDS: FOLIC ACID 1 MG TAB PO SCH (08:59)
[2022-02-12] MEDS: SUCRALFATE 1 GM TAB PO SCH ×4 (08:59→21:08)
[2022-02-12] MEDS: ASCORBIC ACID 500 MG TAB PO SCH (08:59)
[2022-02-12] MEDS: oxyCODONE-APAP 7.5-325MG 1 EACH TAB PO PRN ×3 (08:59→23:55)
[2022-02-12] MEDS: MONTELUKAST 10 MG TAB PO SCH (08:59)
[2022-02-12] MEDS: MULTIVITAMINS, THERA 1 EACH TAB PO SCH (09:01)
[2022-02-12] MEDS: CHOLECALCIFEROL 25 MCG (1000 IU) TABLET PO SCH (09:01)
[2022-02-12] MEDS: LORazepam 1 MG TAB PO PRN ×3 (09:01→23:55)
[2022-02-12] MEDS: ASPIRIN 81 MG PO SCH (09:01)
[2022-02-12] MEDS: TOPIRAMATE 100 MG TAB PO SCH ×2 (09:01→21:08)
[2022-02-12] MEDS: NYSTATIN 100,000 UNIT/ML SUSP 500,000 UNIT/5 ML CUP PO SCH ×4 (09:02→21:08)
[2022-02-12] MEDS: MEMANTINE 10 MG TAB PO SCH ×2 (09:02→21:09)
[2022-02-12] MEDS: GABAPENTIN 400 MG CAP PO SCH ×3 (09:02→21:08)
[2022-02-12] MEDS: NICOTINE 14MG/24HR PATCH TRANSDERM SCH (09:03)
[2022-02-12] MEDS: VERAPAMIL 40 MG TAB PO SCH (09:03)
[2022-02-12] MEDS: methylPREDNISolone SOD SUCCI 40 MG/ML 1 ML VIAL IV SCH ×2 (09:03→21:09)
[2022-02-12] MEDS: HEPARIN SODIUM,PORCINE/PF 5,000 UNIT/0.5 ML SYRINGE SQ SCH ×2 (09:04→21:09)
[2022-02-12] MEDS: AZITHROMYCIN 500 MG in SODIUM CHLORIDE 0.9% 250 ML IVPB SCH (09:04)
[2022-02-12] MEDS: ZINC SULFATE 220 MG CAP PO SCH (09:05)
[2022-02-12 11:43] LABS: Glucose,Whole Blood 110 mg/dL (70-110)
--- NOTE | 2022-02-12 11:53 | CDI ---
Documentation Clarification Form Date: 02/12/2022 10:34:58 AM From: Ronda Hong RN CCDS Admit Date: 02/09/2022 03:24:00 PM Patient Name: Hudson Hernández Visit Number: [id number] Discharge Date: ATTENTION: The Clinical Documentation Specialists (CDI) and [facility] Coding Staff appreciate your assistance in clarifying documentation. Please respond to the clarification below the line at the bottom and electronically sign. The CDI & [facility] Coding staff will review the response and follow-up if needed. Please note: Queries are made part of the Legal Health Record. If you have any questions, please contact the author of this message via ITS. Dr. Maryann Means Conflicting documentation has been found in the medical record. As attending physician, please provide clarification. Chronic hypoxic respiratory failure, Medicine note, 02/11. Acute hypoxic respiratory failure, Pulmonology note 02/11. History/Risk Factors: 56-year-old female presents to the ED after being exposed to COVID from the neighbors about a few weeks ago with shortness of breath, increasing cough, and sputum. COVID test positive at home but repeat COVID was negative. Medical History: Medical History: COPD/Asthma, Nicotine dependence, HTN and MS.02/09, H&P. Clinical Indicators: VSS 02/09 12:00 B/P 117/74; HR 85, RR 18, SpO2 96% 3L nc 02/11, Medicine note: She is maintained on home oxygen of 3L. 02/11, Pulmonary note: Chronic hypoxic respiratory failure with home oxygen 2Lnc prn. Acute hypoxic respiratory failure on 2L of O2 nasal cannula. Treatment: 2 3L nasal cannula. Pulmonary consult see above. 02/09 Duoneb inhalation QID ANDREAS; 02/10 Pulmicort Inhalation BID ANDREAS; 02/10 Solumedrol IV BID; 02/10 Singular PO Daily ANDREAS Please clarify which diagnosis is most appropriate: [ ] Chronic hypoxic respiratory failure [ ] Acute hypoxic respiratory failure [ ] Acute on chronic hypoxic respiratory failure [ ] Other (please specify) [ ] Unable to determine Documented in Medicine progress note 02/12 Acute on chronic hypoxic respiratory failure. Dr. Means / ANDRES [place] (Template Last Revised: July 2020) MTDD
[2022-02-12 12:19] LABS: African American GFR (CKD) >90 (>60 ml/min/1.73 sqM); Anion Gap 9 mmol/L; Blood Urea Nitrogen 14 mg/dL (7-17); Calcium 9.5 mg/dL (8.4-10.2); Carbon Dioxide 34 mmol/L (22-30); Chloride 98 mmol/L (98-107); Glucose 105 mg/dL (74-99); Non-African American GFR(CKD) >90 (>60 ml/min/1.73 sqM); Potassium 3.4 mmol/L (3.5-5.1); Sodium 141 mmol/L (137-145)
--- NOTE | 2022-02-12 12:38 | CDI ---
Documentation Clarification Form Date: 02/12/2022 12:10:54 PM From: Ronda Hong RN CCDS Admit Date: 02/09/2022 03:24:00 PM Patient Name: Hudson Hernández Visit Number: [id number] Discharge Date: ATTENTION: The Clinical Documentation Specialists (CDI) and [facility] Coding Staff appreciate your assistance in clarifying documentation. Please respond to the clarification below the line at the bottom and electronically sign. The CDI & [facility] Coding staff will review the response and follow-up if needed. Please note: Queries are made part of the Legal Health Record. If you have any questions, please contact the author of this message via ITS. Dr. Maryann Means The COVID-19 test obtained on 02/09 was reported as Negative. History/Risk Factors: 56-year-old female presents to the ED after being exposed to COVID from the neighbors about a few weeks ago with shortness of breath, increasing cough, and sputum. COVID test positive at home but repeat COVID was negative. Medical History: Medical History: COPD/Asthma, Nicotine dependence, HTN and MS.02/09, H&P. Clinical Indicators: COVID Test, 02/09: Not detected ED note, 02/09: COVID test positive at home but repeat COVID was negative. Treatment: 02/10 Vitamin C PO Daily; 02/10 Vitamin D3 PO Daily; 02/10 Zinc PO Daily; 02/10 Solumedrol IV BID. Please clarify the COVID-19 status: [ ] False negative, treating for COVID-19 infection [ x ] COVID-19 ruled out [ ] Other, please specify (Template Last Revised: July 2020) MTDD
--- NOTE | 2022-02-12 13:04 | P.PN ---
Subjective Progress Note Date: 02/12/22 56-year-old female patient, she was sick for over 2 weeks and she was exposed to cOCID 19 infection. The patient herself was vaccinated and she tested negative urine hospital. Nevertheless, the patient was having excessive body aches, cough, shortness of breath, chest pain and for that reason she ended up in a hospital. She is well-known to me as the patient has chronic COPD/asthma maintained on Trelegy Ellipta on outpatient basis. She also uses DuoNeb treatments [id number] and Mucinex as needed. For that reason, the patient came into the hospital. No major swelling in lower extremities. No palpitations. Her belly was feeling to be somewhat bloated. The patient also had a fall yesterday and she bumped her head but she doesn't have any loss of consciousness that she doesn't any headaches or any focal neurological deficit for now. The patient in the emergency was found to have a temperature of 99.7F. She was hemodynamically stable. Blood work shows a white cell count 10.6 with a hemoglobin of 15.1 and a platelet count of 228. Sodium is at 140. Glucose at 77. Coagulation profile was within normal limits. Troponin was 0.017. The patient also had a proBNP level of 66, UA was negative, chest x-ray showed some cardiomegaly and prominent interstitium. The patient was diagnosed having viral pneumonia and she was admitted to the hospital. The patient currently is on empiric antibiotic coverage with Zithromax. The patient is also on DuoNeb nebulized treatments [id number], and all of her outpatient medications have been resumed. 02/11/2022, she is still short of breath and limited improvement since yesterday. She feels that she has mucus stuck within her lungs and she is unable to cough it out. She was hemodynamically stable on 3 L nasal cannula. She remains on bronchodilators and steroids. Antibiotic coverage is with Rocephin and Zithromax. No other new complaints otherwise. Blood work showing no significant hyperglycemia. 02/12/2022, the patient tells me that she is not doing any better. Her condition is essentially the same. She still stuck at 3 L of oxygen by nasal cannula. She has episodic hacking cough. She remains on the same antibiotic coverage included a combination of Rocephin and Zithromax. She remains also on bronchodilators. Objective - Vital Signs Vital signs: Vital Signs Temp 98.8 F 02/12/22 08:00 Pulse 69 02/12/22 11:04 Resp 17 02/12/22 10:21 BP 134/90 02/12/22 08:00 Pulse Ox 99 02/12/22 08:00 FiO2 Intake & Output 02/11/22 02/12/22 02/12/22 18:59 06:59 18:59 Other: Voiding Method Toilet Toilet Toilet # Voids 2 3 # Bowel Movements 1 - Exam GENERAL EXAM: Alert, animated -[place] 51-year-old female, in no acute distress HEAD: Normocephalic/atraumatic. EYES: Normal reaction of pupils, equal size. Conjunctiva pink, sclera white. NOSE: Clear with pink turbinates. THROAT: No erythema or exudates. NECK: No masses, no JVD, no thyroid enlargement, no adenopathy. CHEST: No chest wall deformity. Symmetrical expansion. LUNGS: Equal air entry with no crackles, wheeze, rhonchi or dullness. CVS: Regular rate and rhythm, normal S1 and S2, no gallops, no murmurs, no rubs ABDOMEN: Soft, nontender. No hepatosplenomegaly, normal bowel sounds, no guarding or rigidity. EXTREMITIES: No clubbing, no edema, no cyanosis, 2+ pulses and upper and lower extremities. MUSCULOSKELETAL: Muscle strength and tone normal. SPINE: No scoliosis or deformity SKIN: No rashes CENTRAL NERVOUS SYSTEM: Alert and oriented -3. No focal deficits, tone is normal in all 4 extremities. PSYCHIATRIC: Alert and oriented -3. Appropriate affect. Intact judgment and insight. - Labs CBC & Chem 7: 02/10/22 05:04 02/12/22 11:38 Labs: Abnormal Lab Results - Last 24 Hours (Table) 02/12/22 Range/Units 11:38 Potassium 3.4 L (3.5-5.1) mmol/L Carbon Dioxide 34 H (22-30) mmol/L Glucose 105 H (74-99) mg/dL Assessment and Plan Plan: Acute exacerbation of COPD/asthma. The patient is still smoking cigarettes. The patient will maintain on Trelegy Ellipta on an outpatient basis. The vital screening including inflow was and COVID was negative. There is some increase of markings bilaterally on the chest x-ray. No clear space disease. Patient was hospitalized according Acute hypoxic respiratory failure currently on 2 L of O2 nasal cannula chronic multiple sclerosis of the relapsing remitting type, received multiple doses of IV Solu-Medrol and outpatient basis under the care of Dr. Ramirez. minimal troponin leak, nonspecific, obesity. chronic ALLERGIC rhinitis hypertension chronic smoking fibromyalgia Plan Continue same treatment. Limited improvements. Will benefit from bronchoscopy. We'll do another chest x-ray today. Give the patient. After midnight and proceed with a bronchoscopy and airway inspection, the patient will be kept nothing by mouth for now and the bronchoscopy will be set up for tomorrow.
[2022-02-12] MEDS: guaiFENesin-DM 600/30MG 1 EACH TAB.ER.12H PO PRN (14:16)
--- NOTE | 2022-02-12 15:06 | XR ---
EXAMINATION TYPE: XR chest 1V portable DATE OF EXAM: 02/12/2022 COMPARISON: Chest x-ray 02/09/2022, chest CT 04/01/2021 HISTORY: Dyspnea TECHNIQUE: Single frontal view of the chest is obtained. FINDINGS: There is patchy density along the right hemidiaphragm. The cardiac silhouette size is sta ble, heart may appear prominently due to rotation, technique. Patient is rotated. Prominence of pulm onary artery may be indicative of pulmonary artery hypertension The osseous structures are intact. IMPRESSION: Probable basilar atelectasis and additional findings above. Patient's known lung nodule was not seen on plain film.
[2022-02-12] MEDS ORDERED: POTASSIUM CHLORIDE ER 20 MEQ TAB.ER PO STA (15:44)
--- NOTE | 2022-02-12 15:50 | P.PN ---
Subjective Progress Note Date: 02/12/22 This is a 56 year old female who presents with increase in shortness of breath and difficulty breathing. Presents with mild low grade fever, chills, body aches. States she was exposed to covid from a close neighbor 2 weeks ago and since than has been progressively feeling worse. Also states she feels turning the heat on made her worse also. Covid swab negative. She wears 2L nasal cannula chronically. Currently on 2L oxygen with good saturations. She does have some faint scattered wheezing. She is maintained on trelegy outpatient. Continues on inhalers here, IV azithromycin, IV steroids. Patient is daily smoker and requesting nicotine patch. Pulmonary consultation pending at this time. Home medications have been resumed, patient does have extensive medical history. Labs today reviewed, mostly unremarkable, blood glucose 158. 02/11/2022 Patient is evaluated today on medical floor. She continues to complain of chest tightness especially with deep inspiration. There is no wheezing noted today on exam. She is maintained on home oxygen of 3L. Patient does complain of feeling like her throat is swollen, she has a white coating on tongue and states she was using nystatin at home which has been resumed today. Unable to produce sputum sample. Blood glucose in the 120s. Patient continues on bronchodilators and IV steroids, IV azithromycin. Further recommendations from pulmonary. 02/12/2022 Patient is evaluated today sitting up in bed. She continues to complain of chest tightness. Her lungs are clear today, no wheezing. She does report sore throat and feels she has some swelling in her neck more so on the right side. Tonsils are enlarged. Continues to report difficulty with expectoration of mucous. Discussed with pulmonary and plans for patient to undergo bronchoscopy tomorrow. Started on rocephin today from pulmonary team. Potassium 3.4 today, replaced with oral potassium. Continues on 2L nasal cannula with oxygen saturation of 100%, afebrile, heart rate 67, blood pressure 131/87. Review of Systems Constitutional: Denied any fatigue denied any fever. Cardio vascular: denied any chest pain, palpitations Gastrointestinal: denied any nausea, vomiting, diarrhea Pulmonary: Reports shortness of breath, chest tightness. Neurologic denied any new focal deficits All inpatient medications were reviewed and appropriate changes in these medications as dictated in the interval history and assessment and plan. PHYSICAL EXAMINATION: GENERAL: The patient is alert and oriented x3, not in any acute distress. Well developed, well nourished. HEENT: Pupils are round and equally reacting to light. EOMI. No scleral icterus. No conjunctival pallor. Normocephalic, atraumatic. No pharyngeal erythema. No thyromegaly. White coating on tongue. CARDIOVASCULAR: S1 and S2 present. No murmurs, rubs, or gallops. PULMONARY: Chest is clear to auscultation, no wheezing or crackles. ABDOMEN: Soft, nontender, nondistended, normoactive bowel sounds. No palpable organomegaly. MUSCULOSKELETAL: No joint swelling or deformity. EXTREMITIES: No cyanosis, clubbing, or pedal edema. NEUROLOGICAL: Gross neurological examination did not reveal any focal deficits. SKIN: No rashes. Assessment and Plan Assessment Shortness of breath and cough secondary to acute asthma/COPD exacerbation neg ative for COVID-19 Acute on chronic hypoxic respiratory failure maintained on 2-3L nasal cannula Gastroesophageal reflux disease Continued nicotine dependence Chronic allergic rhinitis Hypertension Fibromyalgia Multiple sclerosis - relapsing, remitting type History uterine cancer status post hysterectomy/radiation Neuralgia Anxiety/depression Obesity GI Prophylaxis DVT Prophylaxis Plan Patient to undergo bronchoscopy with Dr. Rushing tomorrow Continue bronchodilators, IV steroids Continue empiric antibiotic coverage Continue all other supportive care The impression and plan of care has been dictated by Marisela Orona Nurse Practitioner as directed. Dr. Clary MD I have performed a history and physical examination and medical decision making of this patient, discussed the same with the dictator, and agree with the dictators assessment and plan as written, documented as a scribe. Based on total visit time, I have performed more than 50% of this visit. Objective - Vital Signs Vital signs: Vital Signs Temp 97.9 F 02/12/22 13:59 Pulse 67 02/12/22 14:08 Resp 18 02/12/22 14:08 BP 131/87 02/12/22 13:59 Pulse Ox 100 02/12/22 13:59 FiO2 Intake & Output 02/11/22 02/12/22 02/12/22 18:59 06:59 18:59 Other: Voiding Method Toilet Toilet Toilet # Voids 2 3 # Bowel Movements 1 - Labs CBC & Chem 7: 02/10/22 05:04 02/12/22 11:38 Labs: Abnormal Lab Results - Last 24 Hours (Table) 02/12/22 Range/Units 11:38 Potassium 3.4 L (3.5-5.1) mmol/L Carbon Dioxide 34 H (22-30) mmol/L Glucose 105 H (74-99) mg/dL Assessment and Plan Time with Patient: Less than 30
[2022-02-12 16:57] LABS: Glucose,Whole Blood 99 mg/dL (70-110)
[2022-02-12] MEDS ORDERED: POTASSIUM CHLORIDE ER 20 MEQ TAB.ER PO ONE (17:00)
[2022-02-12] MEDS: MELATONIN 5 MG TABLET PO SCH (21:08)
[2022-02-12 21:46] LABS: Glucose,Whole Blood 128 mg/dL (70-110)
[2022-02-13] MEDS: guaiFENesin-DM 600/30MG 1 EACH TAB.ER.12H PO PRN ×2 (03:57→20:26)
[2022-02-13 07:11] LABS: Glucose,Whole Blood 101 mg/dL (70-110)
[2022-02-13] MEDS: IPRATROPIUM-ALBUTEROL 3 ML NEB INHALATION SCH ×4 (08:24→20:50)
[2022-02-13] MEDS: BUDESONIDE 0.5 MG/2 ML NEBU INHALATION SCH ×2 (08:24→20:50)
[2022-02-13] MEDS: FOLIC ACID 1 MG TAB PO SCH (09:22)
[2022-02-13] MEDS: methylPREDNISolone SOD SUCCI 40 MG/ML 1 ML VIAL IV SCH ×2 (09:22→22:41)
[2022-02-13] MEDS: LORazepam 1 MG TAB PO PRN ×2 (09:22→17:57)
[2022-02-13] MEDS: hydroCHLOROthiazide 25 MG TAB PO SCH (09:22)
[2022-02-13] MEDS: BUTALB/APAP/CAFF 50-325-40MG TAB PO PRN ×2 (09:22→17:57)
[2022-02-13] MEDS: MEMANTINE 10 MG TAB PO SCH ×2 (09:22→21:48)
[2022-02-13] MEDS: GABAPENTIN 400 MG CAP PO SCH ×3 (09:23→21:47)
[2022-02-13] MEDS: MULTIVITAMINS, THERA 1 EACH TAB PO SCH (09:23)
[2022-02-13] MEDS: TOPIRAMATE 100 MG TAB PO SCH ×2 (09:23→21:47)
[2022-02-13] MEDS: oxyCODONE-APAP 7.5-325MG 1 EACH TAB PO PRN ×2 (09:23→17:57)
[2022-02-13] MEDS: MONTELUKAST 10 MG TAB PO SCH (09:23)
[2022-02-13] MEDS: busPIRone HCl 10 MG TAB PO SCH ×3 (09:23→21:47)
[2022-02-13] MEDS: PARoxetine 20 MG TAB PO SCH (09:23)
[2022-02-13] MEDS: ZINC SULFATE 220 MG CAP PO SCH (09:24)
[2022-02-13] MEDS: CHOLECALCIFEROL 25 MCG (1000 IU) TABLET PO SCH (09:24)
[2022-02-13] MEDS: VERAPAMIL 40 MG TAB PO SCH (09:24)
[2022-02-13] MEDS: PANTOPRAZOLE 40 MG TABLET PO SCH ×2 (09:24→17:56)
[2022-02-13] MEDS: NICOTINE 14MG/24HR PATCH TRANSDERM SCH (09:24)
[2022-02-13] MEDS: ASPIRIN 81 MG PO SCH (09:24)
[2022-02-13] MEDS: SUCRALFATE 1 GM TAB PO SCH ×4 (09:24→21:48)
[2022-02-13] MEDS: ASCORBIC ACID 500 MG TAB PO SCH (09:24)
[2022-02-13] MEDS: NYSTATIN 100,000 UNIT/ML SUSP 500,000 UNIT/5 ML CUP PO SCH ×4 (09:25→22:42)
[2022-02-13] MEDS: HEPARIN SODIUM,PORCINE/PF 5,000 UNIT/0.5 ML SYRINGE SQ SCH ×3 (09:26→21:50)
[2022-02-13] MEDS: methocarbamoL 750 MG TAB PO PRN ×2 (09:27→17:57)
[2022-02-13 11:36] LABS: Glucose,Whole Blood 110 mg/dL (70-110)
--- NOTE | 2022-02-13 13:41 | P.PN ---
Subjective Progress Note Date: 02/13/22 56-year-old female patient, she was sick for over 2 weeks and she was exposed to cOCID 19 infection. The patient herself was vaccinated and she tested negative urine hospital. Nevertheless, the patient was having excessive body aches, cough, shortness of breath, chest pain and for that reason she ended up in a hospital. She is well-known to me as the patient has chronic COPD/asthma maintained on Trelegy Ellipta on outpatient basis. She also uses DuoNeb treatments [id number] and Mucinex as needed. For that reason, the patient came into the hospital. No major swelling in lower extremities. No palpitations. Her belly was feeling to be somewhat bloated. The patient also had a fall yesterday and she bumped her head but she doesn't have any loss of consciousness that she doesn't any headaches or any focal neurological deficit for now. The patient in the emergency was found to have a temperature of 99.7F. She was hemodynamically stable. Blood work shows a white cell count 10.6 with a hemoglobin of 15.1 and a platelet count of 228. Sodium is at 140. Glucose at 77. Coagulation profile was within normal limits. Troponin was 0.017. The patient also had a proBNP level of 66, UA was negative, chest x-ray showed some cardiomegaly and prominent interstitium. The patient was diagnosed having viral pneumonia and she was admitted to the hospital. The patient currently is on empiric antibiotic coverage with Zithromax. The patient is also on DuoNeb nebulized treatments [id number], and all of her outpatient medications have been resumed. 02/11/2022, she is still short of breath and limited improvement since yesterday. She feels that she has mucus stuck within her lungs and she is unable to cough it out. She was hemodynamically stable on 3 L nasal cannula. She remains on bronchodilators and steroids. Antibiotic coverage is with Rocephin and Zithromax. No other new complaints otherwise. Blood work showing no significant hyperglycemia. 02/12/2022, the patient tells me that she is not doing any better. Her condition is essentially the same. She still stuck at 3 L of oxygen by nasal cannula. She has episodic hacking cough. She remains on the same antibiotic coverage included a combination of Rocephin and Zithromax. She remains also on bronchodilators. 02/13/2022, the patient is nothing by mouth. She still complaining that she is having some soreness and irritation in her throat which is making her cough. At the same time, from my examination, the patient is less spastic and wheezing on today's evaluation pH images to be on bronchodilators. She continues to be on IV steroids. She is also tolerable and accommodation of Rocephin and Zithromax. No new labs are available from today. Rest of the medications remain unchanged. She is afebrile. Objective - Vital Signs Vital signs: Vital Signs Temp 98.2 F 02/13/22 12:39 Pulse 69 02/13/22 12:39 Resp 18 02/13/22 12:39 BP 123/81 02/13/22 12:39 Pulse Ox 98 02/13/22 08:00 FiO2 Intake & Output 02/12/22 02/13/22 02/13/22 18:59 06:59 18:59 Other: Voiding Method Toilet Toilet # Voids 2 2 - Exam GENERAL EXAM: Alert, animated -[place]ian 51-year-old female, in no acute distress HEAD: Normocephalic/atraumatic. EYES: Normal reaction of pupils, equal size. Conjunctiva pink, sclera white. NOSE: Clear with pink turbinates. THROAT: No erythema or exudates. NECK: No masses, no JVD, no thyroid enlargement, no adenopathy. CHEST: No chest wall deformity. Symmetrical expansion. LUNGS: Equal air entry with no crackles, wheeze, rhonchi or dullness. CVS: Regular rate and rhythm, normal S1 and S2, no gallops, no murmurs, no rubs ABDOMEN: Soft, nontender. No hepatosplenomegaly, normal bowel sounds, no guarding or rigidity. EXTREMITIES: No clubbing, no edema, no cyanosis, 2+ pulses and upper and lower extremities. MUSCULOSKELETAL: Muscle strength and tone normal. SPINE: No scoliosis or deformity SKIN: No rashes CENTRAL NERVOUS SYSTEM: Alert and oriented -3. No focal deficits, tone is normal in all 4 extremities. PSYCHIATRIC: Alert and oriented -3. Appropriate affect. Intact judgment and insight. - Labs CBC & Chem 7: 02/10/22 05:04 02/13/22 06:57 Labs: Abnormal Lab Results - Last 24 Hours (Table) 02/12/22 Range/Units 21:43 POC Glucose (mg/dL) 128 H (70-110) mg/dL Assessment and Plan Plan: Acute exacerbation of COPD/asthma. The patient is still smoking cigarettes. The patient will maintain on Trelegy Ellipta on an outpatient basis. The vital screening including inflow was and COVID was negative. There is some increase of markings bilaterally on the chest x-ray. No clear airspace disease. Patient was hospitalized according Acute hypoxic respiratory failure currently on 2 L of O2 nasal cannula chronic multiple sclerosis of the relapsing remitting type, received multiple doses of IV Solu-Medrol and outpatient basis under the care of Dr. Ramirez. minimal troponin leak, nonspecific, obesity. chronic ALLERGIC rhinitis hypertension chronic smoking fibromyalgia Plan Will need an upper and lower airway examination. For that reason we'll do a bronchoscopy. Consent the bronchodilators and steroids and antibiotics for now We'll make further recommendations based on the results of the bronchoscopy.
[2022-02-13] MEDS ORDERED: MIDAZOLAM 2 MG/2 ML VIAL ONE (15:00)
[2022-02-13] MEDS ORDERED: PROPOFOL 10 MG/ML 20 ML VIAL IV ONE (15:00)
[2022-02-13] MEDS ORDERED: LIDOCAINE 2% INJ 20 MG/ML (2 ML VIAL) ONE (15:00)
[2022-02-13] MEDS ORDERED: SUCCINYLCHOLINE CHLORIDE 200 MG/10 ML VIAL IV ONE (15:00)
[2022-02-13] MEDS ORDERED: LACTATED RINGERS 1,000 ML IV ONE (15:16)
--- NOTE | 2022-02-13 16:54 | P.PN ---
Subjective Progress Note Date: 02/13/22 This is a 56 year old female who presents with increase in shortness of breath and difficulty breathing. Presents with mild low grade fever, chills, body aches. States she was exposed to covid from a close neighbor 2 weeks ago and since than has been progressively feeling worse. Also states she feels turning the heat on made her worse also. Covid swab negative. She wears 2L nasal cannula chronically. Currently on 2L oxygen with good saturations. She does have some faint scattered wheezing. She is maintained on trelegy outpatient. Continues on inhalers here, IV azithromycin, IV steroids. Patient is daily smoker and requesting nicotine patch. Pulmonary consultation pending at this time. Home medications have been resumed, patient does have extensive medical history. Labs today reviewed, mostly unremarkable, blood glucose 158. 02/11/2022 Patient is evaluated today on medical floor. She continues to complain of chest tightness especially with deep inspiration. There is no wheezing noted today on exam. She is maintained on home oxygen of 3L. Patient does complain of feeling like her throat is swollen, she has a white coating on tongue and states she was using nystatin at home which has been resumed today. Unable to produce sputum sample. Blood glucose in the 120s. Patient continues on bronchodilators and IV steroids, IV azithromycin. Further recommendations from pulmonary. 02/12/2022 Patient is evaluated today sitting up in bed. She continues to complain of chest tightness. Her lungs are clear today, no wheezing. She does report sore throat and feels she has some swelling in her neck more so on the right side. Tonsils are enlarged. Continues to report difficulty with expectoration of mucous. Discussed with pulmonary and plans for patient to undergo bronchoscopy tomorrow. Started on rocephin today from pulmonary team. Potassium 3.4 today, replaced with oral potassium. Continues on 2L nasal cannula with oxygen saturation of 100%, afebrile, heart rate 67, blood pressure 131/87. 02/13/2022 Patient is evaluated today resting in bed. Plan is for bronchoscopy today. She continues to repeat sore throat and irritation and she has harsh non productive cough. She does have some mild laryngitis. She is on IV ceftriaxone, finished course of therapy with IV azithromycin. Continues on IV steroids and bronchodilators. No acute events overnight. Her main complaints continues to be that she is unable to cough up secretions. She has good aeration and no wheezing noted on exam. Potassium improved to 4.0. Review of Systems Constitutional: Denied any fatigue denied any fever. Cardio vascular: denied any chest pain, palpitations Gastrointestinal: denied any nausea, vomiting, diarrhea Pulmonary: Reports shortness of breath, chest tightness. Reports cough, non productive. Sore throat. Neurologic denied any new focal deficits All inpatient medications were reviewed and appropriate changes in these medications as dictated in the interval history and assessment and plan. PHYSICAL EXAMINATION: GENERAL: The patient is alert and oriented x3, not in any acute distress. Well d eveloped, well nourished. HEENT: Pupils are round and equally reacting to light. EOMI. No scleral icterus. No conjunctival pallor. Normocephalic, atraumatic. No pharyngeal erythema. No thyromegaly. White coating on tongue. Tonsils 2+. CARDIOVASCULAR: S1 and S2 present. No murmurs, rubs, or gallops. PULMONARY: Chest is clear to auscultation, no wheezing or crackles. ABDOMEN: Soft, nontender, nondistended, normoactive bowel sounds. No palpable organomegaly. MUSCULOSKELETAL: No joint swelling or deformity. EXTREMITIES: No cyanosis, clubbing, or pedal edema. NEUROLOGICAL: Gross neurological examination did not reveal any focal deficits. SKIN: No rashes. Assessment and Plan Assessment Shortness of breath and cough secondary to acute asthma/COPD exacerbation Covid-19 has been ruled out Acute on chronic hypoxic respiratory failure maintained on 2-3L nasal cannula Gastroesophageal reflux disease Continued nicotine dependence Chronic allergic rhinitis Hypertension Fibromyalgia Multiple sclerosis - relapsing, remitting type History uterine cancer status post hysterectomy/radiation Neuralgia Anxiety/depression Obesity GI Prophylaxis DVT Prophylaxis Plan Patient to undergo bronchoscopy today Continue bronchodilators, IV steroids Continue empiric antibiotic coverage Continue all other supportive care The impression and plan of care has been dictated by Marisela Orona, Nurse Practitioner as directed. Dr. Clary MD I have performed a history and physical examination and medical decision making of this patient, discussed the same with the dictator, and agree with the dictators assessment and plan as written, documented as a scribe. Based on total visit time, I have performed more than 50% of this visit. Objective - Vital Signs Vital signs: Vital Signs Temp 98.8 F 02/13/22 15:55 Pulse 77 02/13/22 16:25 Resp 18 02/13/22 16:25 BP 126/64 02/13/22 16:25 Pulse Ox 97 02/13/22 16:25 FiO2 Intake & Output 02/12/22 02/13/22 02/13/22 18:59 06:59 18:59 Intake Total 700 Balance 700 Intake: IV 700 Other: Voiding Method Toilet Toilet # Voids 2 2 - Labs CBC & Chem 7: 02/10/22 05:04 02/13/22 06:57 Labs: Abnormal Lab Results - Last 24 Hours (Table) 02/12/22 Range/Units 21:43 POC Glucose (mg/dL) 128 H (70-110) mg/dL Assessment and Plan Time with Patient: Less than 30
[2022-02-13 19:39] LABS: Glucose,Whole Blood 130 mg/dL (70-110)
[2022-02-13] MEDS: MELATONIN 5 MG TABLET PO SCH (21:47)
[2022-02-14] MEDS ORDERED: BENZOCAINE/MENTHOL LOZENG 1 EACH LOZENGE MUCOUS MEM ONE (01:55)
[2022-02-14] MEDS ORDERED: methocarbamoL 750 MG TAB ONE (01:55)
[2022-02-14] MEDS ORDERED: BUTALB/APAP/CAFF 50-325-40MG TAB PO ONE (01:55)
[2022-02-14] MEDS ORDERED: oxyCODONE-APAP 7.5-325MG 1 EACH TAB ONE (01:55)
[2022-02-14] MEDS ORDERED: LORazepam 1 MG TAB ONE (01:55)
[2022-02-14 07:02] LABS: Glucose,Whole Blood 102 mg/dL (70-110)
[2022-02-14] MEDS: IPRATROPIUM-ALBUTEROL 3 ML NEB INHALATION SCH ×4 (08:59→20:40)
[2022-02-14] MEDS: BUDESONIDE 0.5 MG/2 ML NEBU INHALATION SCH ×2 (08:59→20:40)
[2022-02-14] MEDS: VERAPAMIL 40 MG TAB PO SCH (09:38)
[2022-02-14] MEDS: TOPIRAMATE 100 MG TAB PO SCH ×2 (09:39→20:58)
[2022-02-14] MEDS: hydroCHLOROthiazide 25 MG TAB PO SCH (09:40)
[2022-02-14] MEDS: oxyCODONE-APAP 7.5-325MG 1 EACH TAB PO PRN ×2 (09:40→17:20)
[2022-02-14] MEDS: BUTALB/APAP/CAFF 50-325-40MG TAB PO PRN ×2 (09:42→17:20)
[2022-02-14] MEDS: MEMANTINE 10 MG TAB PO SCH ×2 (09:42→20:58)
[2022-02-14] MEDS: NICOTINE 14MG/24HR PATCH TRANSDERM SCH (09:42)
[2022-02-14] MEDS: DOCUSATE 100 MG CAP PO PRN (09:44)
[2022-02-14] MEDS: GABAPENTIN 400 MG CAP PO SCH ×3 (09:44→20:58)
[2022-02-14] MEDS: FOLIC ACID 1 MG TAB PO SCH (09:44)
[2022-02-14] MEDS: PARoxetine 20 MG TAB PO SCH (09:44)
[2022-02-14] MEDS: busPIRone HCl 10 MG TAB PO SCH ×3 (09:45→20:58)
[2022-02-14] MEDS: PANTOPRAZOLE 40 MG TABLET PO SCH ×2 (09:45→17:20)
[2022-02-14] MEDS: ASPIRIN 81 MG PO SCH (09:45)
[2022-02-14] MEDS: ASCORBIC ACID 500 MG TAB PO SCH (09:46)
[2022-02-14] MEDS: SUCRALFATE 1 GM TAB PO SCH ×4 (09:46→20:58)
[2022-02-14] MEDS: LORazepam 1 MG TAB PO PRN ×2 (09:46→17:20)
[2022-02-14] MEDS: MULTIVITAMINS, THERA 1 EACH TAB PO SCH (09:46)
[2022-02-14] MEDS: methylPREDNISolone SOD SUCCI 40 MG/ML 1 ML VIAL IV SCH (09:47)
[2022-02-14] MEDS: MONTELUKAST 10 MG TAB PO SCH (09:47)
[2022-02-14] MEDS: NYSTATIN 100,000 UNIT/ML SUSP 500,000 UNIT/5 ML CUP PO SCH ×4 (09:47→20:58)
[2022-02-14] MEDS: methocarbamoL 750 MG TAB PO PRN ×2 (09:48→17:20)
[2022-02-14] MEDS: HEPARIN SODIUM,PORCINE/PF 5,000 UNIT/0.5 ML SYRINGE SQ SCH ×2 (09:48→20:58)
[2022-02-14] MEDS: guaiFENesin-DM 600/30MG 1 EACH TAB.ER.12H PO PRN ×2 (09:49→22:27)
[2022-02-14] MEDS: ZINC SULFATE 220 MG CAP PO SCH (09:50)
[2022-02-14] MEDS: CHOLECALCIFEROL 25 MCG (1000 IU) TABLET PO SCH (09:55)
[2022-02-14 11:44] LABS: Glucose,Whole Blood 109 mg/dL (70-110)
[2022-02-14 12:58] VITALS: BMI 41.8
--- NOTE | 2022-02-14 14:05 | P.PN ---
Subjective Progress Note Date: 02/14/22 56-year-old female patient, she was sick for over 2 weeks and she was exposed to cOCID 19 infection. The patient herself was vaccinated and she tested negative urine hospital. Nevertheless, the patient was having excessive body aches, cough, shortness of breath, chest pain and for that reason she ended up in a hospital. She is well-known to me as the patient has chronic COPD/asthma maintained on Trelegy Ellipta on outpatient basis. She also uses DuoNeb treatments [id number] and Mucinex as needed. For that reason, the patient came into the hospital. No major swelling in lower extremities. No palpitations. Her belly was feeling to be somewhat bloated. The patient also had a fall yesterday and she bumped her head but she doesn't have any loss of consciousness that she doesn't any headaches or any focal neurological deficit for now. The patient in the emergency was found to have a temperature of 99.7F. She was hemodynamically stable. Blood work shows a white cell count 10.6 with a hemoglobin of 15.1 and a platelet count of 228. Sodium is at 140. Glucose at 77. Coagulation profile was within normal limits. Troponin was 0.017. The patient also had a proBNP level of 66, UA was negative, chest x-ray showed some cardiomegaly and prominent interstitium. The patient was diagnosed having viral pneumonia and she was admitted to the hospital. The patient currently is on empiric antibiotic coverage with Zithromax. The patient is also on DuoNeb nebulized treatments [id number], and all of her outpatient medications have been resumed. 02/11/2022, she is still short of breath and limited improvement since yesterday. She feels that she has mucus stuck within her lungs and she is unable to cough it out. She was hemodynamically stable on 3 L nasal cannula. She remains on bronchodilators and steroids. Antibiotic coverage is with Rocephin and Zithromax. No other new complaints otherwise. Blood work showing no significant hyperglycemia. 02/12/2022, the patient tells me that she is not doing any better. Her condition is essentially the same. She still stuck at 3 L of oxygen by nasal cannula. She has episodic hacking cough. She remains on the same antibiotic coverage included a combination of Rocephin and Zithromax. She remains also on bronchodilators. 02/13/2022, the patient is nothing by mouth. She still complaining that she is having some soreness and irritation in her throat which is making her cough. At the same time, from my examination, the patient is less spastic and wheezing on today's evaluation pH images to be on bronchodilators. She continues to be on IV steroids. She is also tolerable and accommodation of Rocephin and Zithromax. No new labs are available from today. Rest of the medications remain unchanged. She is afebrile. 02/14/2022, patient is doing slightly better. I performed a bronchoscopy yesterday. As mentioned, there is dynamic obstruction of the upper airway consistent with severe obstructive sleep apnea. The patient has very narrow upper airways. Her lower airways are patent. Therapeutic suctioning was done. Bronchoalveolar lavage was also collected. Cultures are still pending for now. She is on IV soda metals. This will be transitioned to prednisone burst taper. She is afebrile. She is still having some limited cough. Objective - Vital Signs Vital signs: Vital Signs Temp 98.6 F 02/14/22 13:16 Pulse 71 02/14/22 13:16 Resp 16 02/14/22 13:16 BP 105/65 02/14/22 13:16 Pulse Ox 98 02/14/22 08:00 FiO2 Intake & Output 02/13/22 02/14/22 02/14/22 18:59 06:59 18:59 Intake Total 700 Balance 700 Weight 107.048 kg Intake: IV 700 Other: Voiding Method Toilet Toilet Toilet # Voids 3 2 - Exam GENERAL EXAM: Alert, animated -[place] 51-year-old female, in no acute distress HEAD: Normocephalic/atraumatic. EYES: Normal reaction of pupils, equal size. Conjunctiva pink, sclera white. NOSE: Clear with pink turbinates. THROAT: No erythema or exudates. NECK: No masses, no JVD, no thyroid enlargement, no adenopathy. CHEST: No chest wall deformity. Symmetrical expansion. LUNGS: Equal air entry with no crackles, wheeze, rhonchi or dullness. CVS: Regular rate and rhythm, normal S1 and S2, no gallops, no murmurs, no rubs ABDOMEN: Soft, nontender. No hepatosplenomegaly, normal bowel sounds, no guard ing or rigidity. EXTREMITIES: No clubbing, no edema, no cyanosis, 2+ pulses and upper and lower extremities. MUSCULOSKELETAL: Muscle strength and tone normal. SPINE: No scoliosis or deformity SKIN: No rashes CENTRAL NERVOUS SYSTEM: Alert and oriented -3. No focal deficits, tone is normal in all 4 extremities. PSYCHIATRIC: Alert and oriented -3. Appropriate affect. Intact judgment and insight. - Labs CBC & Chem 7: 02/10/22 05:04 02/13/22 06:57 Labs: Abnormal Lab Results - Last 24 Hours (Table) 02/13/22 Range/Units 19:38 POC Glucose (mg/dL) 130 H (70-110) mg/dL Assessment and Plan Plan: Acute exacerbation of COPD/asthma. The patient is still smoking cigarettes. The patient will maintain on Trelegy Ellipta on an outpatient basis. The vital screening including inflow was and COVID was negative. There is some increase of markings bilaterally on the chest x-ray. No clear airspace disease. Patient was hospitalized according Acute hypoxic respiratory failure currently on 2 L of O2 nasal cannula chronic multiple sclerosis of the relapsing remitting type, received multiple doses of IV Solu-Medrol and outpatient basis under the care of Dr. Ramirez. minimal troponin leak, nonspecific, obesity. chronic ALLERGIC rhinitis hypertension chronic smoking fibromyalgia Plan Possible IV Solu-Medrol Prednisone burst taper starting with 40 mg Awaiting the results of the bronchoalveolar lavage Increase mobility Possible home within the next 24 hours All patient's sleep study
--- NOTE | 2022-02-14 15:58 | P.PN ---
Subjective This is a 56 year old female who presents with increase in shortness of breath and difficulty breathing. Presents with mild low grade fever, chills, body aches. States she was exposed to covid from a close neighbor 2 weeks ago and since than has been progressively feeling worse. Also states she feels turning the heat on made her worse also. Covid swab negative. She wears 2L nasal cannula chronically. Currently on 2L oxygen with good saturations. She does have some faint scattered wheezing. She is maintained on trelegy outpatient. Continues on inhalers here, IV azithromycin, IV steroids. Patient is daily smoker and requesting nicotine patch. Pulmonary consultation pending at this time. Home medications have been resumed, patient does have extensive medical history. Labs today reviewed, mostly unremarkable, blood glucose 158. 02/11/2022 Patient is evaluated today on medical floor. She continues to complain of chest tightness especially with deep inspiration. There is no wheezing noted today on exam. She is maintained on home oxygen of 3L. Patient does complain of feeling like her throat is swollen, she has a white coating on tongue and states she was using nystatin at home which has been resumed today. Unable to produce sputum sample. Blood glucose in the 120s. Patient continues on bronchodilators and IV steroids, IV azithromycin. Further recommendations from pulmonary. 02/12/2022 Patient is evaluated today sitting up in bed. She continues to complain of chest tightness. Her lungs are clear today, no wheezing. She does report sore throat and feels she has some swelling in her neck more so on the right side. Tonsils are enlarged. Continues to report difficulty with expectoration of mucous. Discussed with pulmonary and plans for patient to undergo bronchoscopy tomorrow. Started on rocephin today from pulmonary team. Potassium 3.4 today, replaced with oral potassium. Continues on 2L nasal cannula with oxygen saturation of 100%, afebrile, heart rate 67, blood pressure 131/87. 02/13/2022 Patient is evaluated today resting in bed. Plan is for bronchoscopy today. She continues to repeat sore throat and irritation and she has harsh non productive cough. She does have some mild laryngitis. She is on IV ceftriaxone, finished course of therapy with IV azithromycin. Continues on IV steroids and bronchodilators. No acute events overnight. Her main complaints continues to be that she is unable to cough up secretions. She has good aeration and no wheezing noted on exam. Potassium improved to 4.0. 02/14/2022 This is a pleasant 56 years old female presents with respiratory symptoms and dyspnea. Found to have acute COPD exacerbation and hypoxia on oxygen. She is mildly tachypneic while at rest and denies significant chest pain. Occasional coughing. Status post bronchoscopy showing normal upper airway, results of the bronchoscopist pending. Start oral prednisone tomorrow. She is currently on ceftriaxone Objective - Vital Signs Vital signs: Vital Signs Temp 98.6 F 02/14/22 13:16 Pulse 71 02/14/22 13:16 Resp 16 02/14/22 13:16 BP 105/65 02/14/22 13:16 Pulse Ox 98 02/14/22 08:00 FiO2 Intake & Output 02/13/22 02/14/22 02/14/22 18:59 06:59 18:59 Intake Total 700 Balance 700 Weight 107.048 kg Intake: IV 700 Other: Voiding Method Toilet Toilet Toilet # Voids 3 2 - Exam -GENERAL: The patient is alert and oriented x3, not in any acute distress. Obese HEENT: Pupils are round and equally reacting to light. EOMI. No scleral icterus. No conjunctival pallor. Normocephalic, atraumatic. No pharyngeal erythema. No thyromegaly. CARDIOVASCULAR: S1 and S2 present. No murmurs, rubs, or gallops. PULMONARY: Chest is clear to auscultation, no wheezing or crackles. ABDOMEN: Soft, nontender, nondistended, normoactive bowel sounds. No palpable organomegaly. MUSCULOSKELETAL: No joint swelling or deformity. EXTREMITIES: No cyanosis, clubbing, or pedal edema. NEUROLOGICAL: Gross neurological examination did not reveal any focal deficits. SKIN: No rashes. no petechiae. - Labs CBC & Chem 7: 02/10/22 05:04 02/13/22 06:57 Labs: Abnormal Lab Results - Last 24 Hours (Table) 02/13/22 Range/Units 19:38 POC Glucose (mg/dL) 130 H (70-110) mg/dL Assessment and Plan Assessment: Shortness of breath and cough secondary to acute asthma/COPD exacerbation Narrow upper airway possible obstructive sleep apnea Covid-19 has been ruled out Acute on chronic hypoxic respiratory failure maintained on 2-3L nasal cannula Gastroesophageal reflux disease Continued nicotine dependence Chronic allergic rhinitis Hypertension Fibromyalgia Multiple sclerosis - relapsing, remitting type History uterine cancer status post hysterectomy/radiation Neuralgia Anxiety/depression Obesity Plan: Continue with ceftriaxone Start prednisone taper from tomorrow Pulmonary team with the case Labs and medication were reviewed.. Continue same treatment. Continue with symptomatic treatment. Resume home medication. Monitor lytes and vitals. DVT and GI prophylaxis. Further recommendations as per clinical course of the patient DVT prophylaxis: Subcutaneous heparin GI Prophylaxis: Ppi
[2022-02-14 16:57] LABS: Glucose,Whole Blood 112 mg/dL (70-110)
[2022-02-14] MEDS: BENZOCAINE/MENTHOL LOZENG 1 EACH LOZENGE MUCOUS MEM PRN (17:58)
[2022-02-14] MEDS: MELATONIN 5 MG TABLET PO SCH (20:58)
[2022-02-15] MEDS: oxyCODONE-APAP 7.5-325MG 1 EACH TAB PO PRN ×3 (01:34→15:30)
[2022-02-15] MEDS: BENZOCAINE/MENTHOL LOZENG 1 EACH LOZENGE MUCOUS MEM PRN (01:34)
[2022-02-15] MEDS: BUTALB/APAP/CAFF 50-325-40MG TAB PO PRN ×3 (01:35→15:30)
[2022-02-15] MEDS: LORazepam 1 MG TAB PO PRN ×3 (01:35→15:30)
[2022-02-15] MEDS: methocarbamoL 750 MG TAB PO PRN ×3 (01:35→16:29)
[2022-02-15] MEDS: TOPIRAMATE 100 MG TAB PO SCH (08:38)
[2022-02-15] MEDS: ASPIRIN 81 MG PO SCH (08:38)
[2022-02-15] MEDS: GABAPENTIN 400 MG CAP PO SCH ×2 (08:39→15:29)
[2022-02-15] MEDS: ZINC SULFATE 220 MG CAP PO SCH (08:39)
[2022-02-15] MEDS: CHOLECALCIFEROL 25 MCG (1000 IU) TABLET PO SCH (08:40)
[2022-02-15] MEDS: SUCRALFATE 1 GM TAB PO SCH ×2 (08:40→11:52)
[2022-02-15] MEDS: MULTIVITAMINS, THERA 1 EACH TAB PO SCH (08:40)
[2022-02-15] MEDS: MONTELUKAST 10 MG TAB PO SCH (08:40)
[2022-02-15] MEDS: busPIRone HCl 10 MG TAB PO SCH ×2 (08:40→15:29)
[2022-02-15] MEDS: ASCORBIC ACID 500 MG TAB PO SCH (08:41)
[2022-02-15] MEDS: PARoxetine 20 MG TAB PO SCH (08:41)
[2022-02-15] MEDS: FOLIC ACID 1 MG TAB PO SCH (08:41)
[2022-02-15] MEDS: MEMANTINE 10 MG TAB PO SCH (08:41)
[2022-02-15] MEDS: hydroCHLOROthiazide 25 MG TAB PO SCH (08:41)
[2022-02-15] MEDS: PANTOPRAZOLE 40 MG TABLET PO SCH (08:41)
[2022-02-15] MEDS: NICOTINE 14MG/24HR PATCH TRANSDERM SCH (08:42)
[2022-02-15] MEDS: HEPARIN SODIUM,PORCINE/PF 5,000 UNIT/0.5 ML SYRINGE SQ SCH (08:42)
[2022-02-15] MEDS: NYSTATIN 100,000 UNIT/ML SUSP 500,000 UNIT/5 ML CUP PO SCH ×2 (08:43→11:52)
[2022-02-15] MEDS: VERAPAMIL 40 MG TAB PO SCH (08:43)
[2022-02-15] MEDS ORDERED: predniSONE 20 MG TAB PO SCH (09:00)
[2022-02-15] MEDS: DOCUSATE 100 MG CAP PO PRN (09:02)
[2022-02-15] MEDS: IPRATROPIUM-ALBUTEROL 3 ML NEB INHALATION SCH ×3 (09:16→17:02)
[2022-02-15] MEDS: BUDESONIDE 0.5 MG/2 ML NEBU INHALATION SCH (09:16)
[2022-02-15] MEDS: guaiFENesin-DM 600/30MG 1 EACH TAB.ER.12H PO PRN (09:29)
[2022-02-15 11:43] LABS: Glucose,Whole Blood 124 mg/dL (70-110)
[2022-02-15 12:27] VITALS: PULSE 86
--- NOTE | 2022-02-15 13:13 | P.PN ---
Subjective Progress Note Date: 02/15/22 56-year-old female patient, she was sick for over 2 weeks and she was exposed to cOCID 19 infection. The patient herself was vaccinated and she tested negative urine hospital. Nevertheless, the patient was having excessive body aches, cough, shortness of breath, chest pain and for that reason she ended up in a hospital. She is well-known to me as the patient has chronic COPD/asthma maintained on Trelegy Ellipta on outpatient basis. She also uses DuoNeb treatments [id number] and Mucinex as needed. For that reason, the patient came into the hospital. No major swelling in lower extremities. No palpitations. Her belly was feeling to be somewhat bloated. The patient also had a fall yesterday and she bumped her head but she doesn't have any loss of consciousness that she doesn't any headaches or any focal neurological deficit for now. The patient in the emergency was found to have a temperature of 99.7F. She was hemodynamically stable. Blood work shows a white cell count 10.6 with a hemoglobin of 15.1 and a platelet count of 228. Sodium is at 140. Glucose at 77. Coagulation profile was within normal limits. Troponin was 0.017. The patient also had a proBNP level of 66, UA was negative, chest x-ray showed some cardiomegaly and prominent interstitium. The patient was diagnosed having viral pneumonia and she was admitted to the hospital. The patient currently is on empiric antibiotic coverage with Zithromax. The patient is also on DuoNeb nebulized treatments [id number], and all of her outpatient medications have been resumed. 02/11/2022, she is still short of breath and limited improvement since yesterday. She feels that she has mucus stuck within her lungs and she is unable to cough it out. She was hemodynamically stable on 3 L nasal cannula. She remains on bronchodilators and steroids. Antibiotic coverage is with Rocephin and Zithromax. No other new complaints otherwise. Blood work showing no significant hyperglycemia. 02/12/2022, the patient tells me that she is not doing any better. Her condition is essentially the same. She still stuck at 3 L of oxygen by nasal cannula. She has episodic hacking cough. She remains on the same antibiotic coverage included a combination of Rocephin and Zithromax. She remains also on bronchodilators. 02/13/2022, the patient is nothing by mouth. She still complaining that she is having some soreness and irritation in her throat which is making her cough. At the same time, from my examination, the patient is less spastic and wheezing on today's evaluation pH images to be on bronchodilators. She continues to be on IV steroids. She is also tolerable and accommodation of Rocephin and Zithromax. No new labs are available from today. Rest of the medications remain unchanged. She is afebrile. 02/14/2022, patient is doing slightly better. I performed a bronchoscopy yesterday. As mentioned, there is dynamic obstruction of the upper airway consistent with severe obstructive sleep apnea. The patient has very narrow upper airways. Her lower airways are patent. Therapeutic suctioning was done. Bronchoalveolar lavage was also collected. Cultures are still pending for now. She is on IV soda metals. This will be transitioned to prednisone burst taper. She is afebrile. She is still having some limited cough. 02/15/2022, the patient's cough has subsided and she is clinically stable. No new complaints. The bronchoalveolar lavage has not resulted. The patient will be discharged home on cefuroxime and a prednisone burst taper and nystatin. Objective - Vital Signs Vital signs: Vital Signs Temp 98.3 F 02/15/22 08:00 Pulse 86 02/15/22 12:32 Resp 16 02/15/22 08:00 BP 102/70 02/15/22 08:00 Pulse Ox 98 02/15/22 08:00 FiO2 Intake & Output 02/14/22 02/15/22 02/15/22 18:59 06:59 18:59 Intake Total 400 120 Balance 400 120 Weight 107.048 kg Intake: Oral 400 120 Other: Voiding Method Toilet Toilet Toilet # Voids 3 1 # Bowel Movements 1 - Exam GENERAL EXAM: Alert, animated -[place] 51-year-old female, in no acute distress HEAD: Normocephalic/atraumatic. EYES: Normal reaction of pupils, equal size. Conjunctiva pink, sclera white. NOSE: Clear with pink turbinates. THROAT: No erythema or exudates. NECK: No masses, no JVD, no thyroid enlargement, no adenopathy. CHEST: No chest wall deformity. Symmetrical expansion. LUNGS: Equal air entry with no crackles, wheeze, rhonchi or dullness. CVS: Regular rate and rhythm, normal S1 and S2, no gallops, no murmurs, no rubs ABDOMEN: Soft, nontender. No hepatosplenomegaly, normal bowel sounds, no guarding or rigidity. EXTREMITIES: No clubbing, no edema, no cyanosis, 2+ pulses and upper and lower extremities. MUSCULOSKELETAL: Muscle strength and tone normal. SPINE: No scoliosis or deformity SKIN: No rashes CENTRAL NERVOUS SYSTEM: Alert and oriented -3. No focal deficits, tone is normal in all 4 extremities. PSYCHIATRIC: Alert and oriented -3. Appropriate affect. Intact judgment and insight. - Labs CBC & Chem 7: 02/10/22 05:04 02/13/22 06:57 Labs: Abnormal Lab Results - Last 24 Hours (Table) 02/14/22 02/15/22 Range/Units 16:56 11:42 POC Glucose (mg/dL) 112 H 124 H (70-110) mg/dL Assessment and Plan Plan: Acute exacerbation of COPD/asthma. The patient is still smoking cigarettes. The patient will maintain on Trelegy Ellipta on an outpatient basis. The vital screening including inflow was and COVID was negative. There is some increase of markings bilaterally on the chest x-ray. No clear airspace disease. Patient was hospitalized according Acute hypoxic respiratory failure currently on 2 L of O2 nasal cannula chronic multiple sclerosis of the relapsing remitting type, received multiple doses of IV Solu-Medrol and outpatient basis under the care of Dr. Ramirez. minimal troponin leak, nonspecific, obesity. chronic ALLERGIC rhinitis hypertension chronic smoking fibromyalgia Plan Prednisone burst taper, cefuroxime and Symbicort in addition to nystatin. Outpatient sleep study Discharge patient home today
[2022-02-15 16:31] VITALS: BP 113/75; RESP 17; TEMP 98.4
--- NOTE | 2022-02-15 22:12 | P.DS ---
Providers Date of admission: 02/09/22 15:24 Attending physician: Evie Peterson Consults: 02/09/22 16:44 Consult Physician Routine Consulting Provider: Juni Javier Consult Reason/Comments: copd Do you want consulting provider notified?: Yes Primary care physician: Kilo Tabares [facility] Course: Diagnoses: Shortness of breath and cough secondary to acute asthma/COPD exacerbation , significantly improved Narrow upper airway possible obstructive sleep apnea Acute on chronic hypoxic respiratory failure maintained on 2-3L nasal cannula improved History of Gastroesophageal reflux disease Continued nicotine dependence Chronic allergic rhinitis Hypertension Fibromyalgia Multiple sclerosis - relapsing, remitting type History uterine cancer status post hysterectomy/radiation Neuralgia Anxiety/depression Obesity Hospital course: This is a 56 year old female who presents with increase in shortness of breath and difficulty breathing. Presents with mild low grade fever, chills, body aches. States she was exposed to covid from a close neighbor 2 weeks ago and since than has been progressively feeling worse. Also states she feels turning the heat on made her worse also. Covid swab negative. She wears 2L nasal cannula chronically. Currently on 2L oxygen with good saturations. Patient found to have acute COPD exacerbation and possible bilateral pneumonia, she was treated with steroids and antibiotic ceftriaxone and she showed interval improvement. Also she underwent bronchoscopy with further studies are pending per pulmonary however a clinically significantly improved and she was feeling ready to be discharged home today. Her breathing is back to baseline. No chest pain. No GI or urinary symptoms. No fever. Patient says she is able to walk to the bathroom. She assists physical therapy evaluation and she refused to go to subacute rehab she wants to go home with home health care which is ordered for her. She is currently requiring only 2 L/m which is her home dose. Patient confirms to me she has oxygen at home as well as oxygen tank and concentrator. Patient will be discharged on cefuroxime and tapered prednisone and patient agrees. Patient was cleared for discharge by pulmonary team Problems and management plan were discussed with the patient and he verbalized understanding and acceptance Patient was found stable and can be discharged home in guarded prognosis however he needs follow-up as an outpatient. Patient was instructed to follow up with PCP Dr. gold within one week and patient agrees Patient was instructed to follow up with beater machine operator Dr. Rushing in one week and she agrees to call and make her own appointment as today is weakened Physical exam Gen: patient is a AAOx3, no distress CVS: S1-S2, RRR, no murmur Lungs: B/L CTA, no wheezing Abdomen: soft, no distention, no tenderness, positive bowel sounds Extremity: no leg edema or induration Time spent more than 35 minutes Plan - Discharge Summary New Discharge Prescriptions: New cefUROXime axetiL [Ceftin] 500 mg PO BID 10 Days #20 tab Melatonin 10 mg PO HS tab predniSONE 10 mg PO DIRECTED #40 tab Nicotine 14Mg/24Hr Patch [Habitrol] 1 patch TRANSDERM DAILY #3 patch Nystatin 100,000 Unit/ml Susp [Mycostatin Oral Susp] 500,000 unit PO QID 5 Days #30 ml Continue Verapamil HCl [Calan] 120 mg PO DAILY Butalb/APAP/Caff 50-325-40Mg [Fioricet 50-325-40] 1 tab PO Q8H PRN PRN Reason: Headache rOPINIRole HCL [Requip] 0.25 mg PO TID #90 tab Pantoprazole Sodium [Protonix] 40 mg PO BID Memantine [Namenda] 10 mg PO BID Montelukast [Singulair] 10 mg PO DAILY hydroCHLOROthiazide [Hydrodiuril] 25 mg PO DAILY tab Fluticasone Nasal Kenner [Flonase Nasal Kenner] 2 spr EA NOSTRIL DAILY PRN PRN Reason: Congestion methocarbamoL [Robaxin-750] 750 mg PO TID PRN PRN Reason: Muscle Spasm Folic Acid 1 mg PO DAILY #30 tab Albuterol Sulfate [Ventolin HFA] 2 puff INHALATION RT-QID PRN PRN Reason: Shortness Of Breath Docusate [Colace] 100 mg PO DAILY PRN PRN Reason: Constipation Zinc Gluconate [Zinc] 50 mg PO DAILY Gabapentin 800 mg PO TID Topiramate [Topamax] 100 mg PO BID Sucralfate [Carafate] 1 gm PO ACHS #120 tab guaiFENesin-DM 600/30MG [Mucinex Dm] 2 tab PO Q12HR PRN PRN Reason: Cough PARoxetine HCL [Paxil] 40 mg PO DAILY Ipratropium-Albuterol Nebulize [Duoneb 0.5 mg-3 mg/3 ml Soln] 3 ml INHALATION RT-QID PRN PRN Reason: Shortness Of Breath Budesonide [Pulmicort] 0.5 mg INHALATION RT-BID oxyCODONE-APAP 7.5-325MG [Percocet 7.5-325 mg] 1 tab PO TID PRN PRN Reason: Pain busPIRone HCl [Buspar] 10 mg PO TID Cholecalciferol [Vitamin D3 (25 Mcg = 1000 Iu)] 50 mcg PO DAILY Fluticasone/Umeclidin/Vilanter [Trelegy Ellipta 200-62.5-25] 1 puff INHALATION RT-DAILY Aspirin EC [Ecotrin Low Dose] 81 mg PO DAILY Discontinued LORazepam [Ativan] 1 mg PO TID PRN PRN Reason: Anxiety Ascorbic Acid [Vitamin C] 1,000 mg PO DAILY Diclofenac Sodium Gel [Voltaren Gel] 2 gm TOPICAL QID PRN #0 PRN Reason: Pain Promethaz-Cod 6.25-10 mg/5 ml [Phenergan with Codeine] 5 ml PO Q6H PRN PRN Reason: Cough No Action Multivitamins, Thera [Multivitamin (formulary)] 1 tab PO DAILY Turmeric Root Extract [Turmeric] 500 mg PO DAILY Elderberry Fruit and Flower [Black Elderberry 575 mg Cap] 1 cap PO DAILY Discharge Medication List Verapamil HCl [Calan] 120 mg PO DAILY 02/20/14 [History] Butalb/APAP/Caff 50-325-40Mg [Fioricet 50-325-40] 1 tab PO Q8H PRN 03/25/17 [History] rOPINIRole HCL [Requip] 0.25 mg PO TID #90 tab 01/31/18 [Rx] Multivitamins, Thera [Multivitamin (formulary)] 1 tab PO DAILY 05/07/18 [History] Pantoprazole Sodium [Protonix] 40 mg PO BID 10/31/18 [History] Memantine [Namenda] 10 mg PO BID 11/22/18 [History] Montelukast [Singulair] 10 mg PO DAILY 11/22/18 [History] hydroCHLOROthiazide [Hydrodiuril] 25 mg PO DAILY tab 11/26/18 [Rx] Fluticasone Nasal Kenner [Flonase Nasal Kenner] 2 spr EA NOSTRIL DAILY PRN 04/28/19 [History] methocarbamoL [Robaxin-750] 750 mg PO TID PRN 04/28/19 [History] Folic Acid 1 mg PO DAILY #30 tab 05/02/19 [Rx] Albuterol Sulfate [Ventolin HFA] 2 puff INHALATION RT-QID PRN 08/09/19 [History] Docusate [Colace] 100 mg PO DAILY PRN 01/30/20 [History] Zinc Gluconate [Zinc] 50 mg PO DAILY 01/30/20 [History] Elderberry Fruit and Flower [Black Elderberry 575 mg Cap] 1 cap PO DAILY 06/14/20 [History] Turmeric Root Extract [Turmeric] 500 mg PO DAILY 06/14/20 [History] Gabapentin 800 mg PO TID 08/21/20 [History] Topiramate [Topamax] 100 mg PO BID 08/21/20 [History] oxyCODONE-APAP 7.5-325MG [Percocet 7.5-325 mg] 1 tab PO TID PRN 10/30/20 [History] Sucralfate [Carafate] 1 gm PO ACHS #120 tab 04/03/21 [Rx] Cholecalciferol [Vitamin D3 (25 Mcg = 1000 Iu)] 50 mcg PO DAILY 06/15/21 [History] Fluticasone/Umeclidin/Vilanter [Trelegy Ellipta 200-62.5-25] 1 puff INHALATION RT-DAILY 06/15/21 [History] PARoxetine HCL [Paxil] 40 mg PO DAILY 06/15/21 [History] busPIRone HCl [Buspar] 10 mg PO TID 06/15/21 [History] guaiFENesin-DM 600/30MG [Mucinex Dm] 2 tab PO Q12HR PRN 06/15/21 [History] Ipratropium-Albuterol Nebulize [Duoneb 0.5 mg-3 mg/3 ml Soln] 3 ml INHALATION RT-QID PRN 08/13/21 [History] Aspirin EC [Ecotrin Low Dose] 81 mg PO DAILY 02/09/22 [History] Budesonide [Pulmicort] 0.5 mg INHALATION RT-BID 02/09/22 [History] Melatonin 10 mg PO HS tab 02/15/22 [Rx] Nicotine 14Mg/24Hr Patch [Habitrol] 1 patch TRANSDERM DAILY #3 patch 02/15/22 [Rx] Nystatin 100,000 Unit/ml Susp [Mycostatin Oral Susp] 500,000 unit PO QID 5 Days #30 ml 02/15/22 [Rx] cefUROXime axetiL [Ceftin] 500 mg PO BID 10 Days #20 tab 02/15/22 [Rx] predniSONE 10 mg PO DIRECTED #40 tab 02/15/22 [Rx] Follow up Appointment(s)/Referral(s): Kilo Tabares MD [Primary Care Provider] - 1-[address] Rushing MD [STAFF PHYSICIAN] - 10 Days (please follow up the cytology test result from your bronchoscpy (bronchoalveolar lavage) ... also you will need sleep study as outpatient with ) Patient Instructions/Handouts: Viral Pneumonia (DC) Activity/Diet/Wound Care/Special Instructions: heart healthy diet activity is restricted till you see your doctor Discharge Disposition: HOME WITH HOME HEALTH SERVICES
--- NOTE | 2022-02-18 09:16 | CDI ---
Documentation Clarification Form Date: 02/18/2022 08:53:00 AM From: Aure Blanco Admit Date: 02/09/2022 03:24:00 PM Patient Name: Hudson Hernández Visit Number: [id number] Discharge Date: 02/15/2022 05:25:00 PM ATTENTION: The Clinical Documentation Specialists (CDI) and [facility] Coding Staff appreciate your assistance in clarifying documentation. Please respond to the clarification below the line at the bottom and electronically sign. The CDI & [facility] Coding staff will review the response and follow-up if needed. Please note: Queries are made part of the Legal Health Record. If you have any questions, please contact the author of this message via ITS. Dr. Arroyo E Sheet Per ED notes and PN's 02/10 - 02/15 "The patient was diagnosed having viral pneumonia and she was admitted to the hospital. H and P documents possible pneumonia and DCS documents possible bilateral pneumonia. Pneumonia is not listed in the Final diagnoses. Additional clarification regarding if patient had pneumonia, was it ruled out and if patient did have pneumonia the type of pneumonia is requested. History/Risk Factors: Patient with asthma, COPD, chronic respiratory failure home O2, smoker, allergic rhinitis, MS Clinical Indicators: WBC/Left shift: 10.6 X-ray: Viral pneumonia Lung/Breathing assessment Had breathing treatments in ED Treatment: Breathing treatment in ED, IV antibiotic, O2, inhaled steroids and steroids, BAL Antibiotics Rocephin O2 2 and 3L Breathing Tx: in ED Please clarify if patient had pneumonia and type of pneumonia or was pneumonia ruled out. if known: [ ] Bacterial Pneumonia, specify causal organism (if known) [ ] Viral pneumonia [ ] Pneumonia ruled out [ ] Other, please specify [ ] Unable to determine Unable to determine MTDD
--- NOTE | 2022-02-28 11:25 | P.PCN ---
Date of Procedure: 02/13/22 Preoperative Diagnosis: COPD/asthma exacerbation, persistent shortness of breath, throat irritation Postoperative Diagnosis: Same Procedure(s) Performed: Flexible bronchoscopy, bronchoalveolar lavage of the superior segment of the lingula Anesthesia: MAC Surgeon: Ct Rushing Estimated Blood Loss (ml): 0 Pathology: other Condition: stable Operative Findings: This procedure was done under conscious sedation. Anesthetic agents was given by [employer]. The patient was given propofol for sedation. This procedure was done while the patient was on oxygen by nasal cannula 10 L. the patient was initially given propofol and the procedure was initiated by the flexible bronchoscope was introduced in the right nostril and examination of the posterior pharynx and larynx showed significant amount of adipose tissue with minimal airways and dynamic obstruction consistent with obstructive sleep apnea. There was copious amounts of loose liquidy secretions present. The epiglottis, cords, vallecula, arytenoids were all inspected and are all within normal limits. I applied a total of 1% lidocaine to the vocal cord and the bronchoscope was passed into the trachea. However, during this time, the patient developed oxygen desaturations due to upper airway obstruction and ENMANUEL. The bronchoscope was removed. The patient was Ambu bagged. She continued to have difficulties with upper airway obstruction and at that point we decided to intubate the patient and completed the procedure while the patient being intubated on a mechanical ventilator. Adequate oxygenation was restored and the procedure was continued. Examination of the entire trachea, samantha, bilateral mainstem bronchi, right upper lobe bronchus, bronchus intermedius, right middle lobe bronchus and right lower lobe bronchus and the various segments of the right and examination of the left included the left mainstem bronchus, left upper lobe bronchus and left lower lobe bronchus and the various segments on the left. No significant abnormalities were identified and the patient's mucosa was within normal limits. No significant inflammation. Mucosa looks healthy within normal limits. No foreign bodies. The bronchoscope was then removed to the lingular lobe as well as right and a bronchial lavage was done. A total of 60 mL of fluid was infused into the right middle lobe lateral segment and around 25 mL was aspirated. The aspirate was nonbloody. At the completion of the procedure, a therapeutic airway suctioning was done. The bronchoscope was removed. The patient was transferred to recovery in stable condition. Samples will be sent for microbial cultures .The patient was extubated and transferred to recovery in stable condition.
== END 2022-02-15 17:25 | disposition home health service (06) | DRG 190 ==
LOC: EC 09:19 → 4SSUR 15:24
PROVIDERS: ADMIT Hospitalist; ATTEND Hospitalist
PROC: 0B9H8ZZ Drainage of Lung Lingula, Via Natural or Artificial Opening Endoscopic (ICD-10-PCS; principal; 2022-02-13 14:45)
PROC: 0B9H8ZX Drainage of Lung Lingula, Via Natural or Artificial Opening Endoscopic, Diagnostic (ICD-10-PCS; principal; 2022-02-13 14:45)
DX: J44.1 Chronic obstructive pulmonary disease with (acute) exacerbation (principal); J96.21 Acute and chronic respiratory failure with hypoxia; J45.901 Unspecified asthma with (acute) exacerbation; J84.9 Interstitial pulmonary disease, unspecified; D84.9 Immunodeficiency, unspecified; H46.9 Unspecified optic neuritis; Z68.41 Body mass index [BMI] 40.0-44.9, adult; J04.0 Acute laryngitis; K21.9 Gastro-esophageal reflux disease without esophagitis; M79.7 Fibromyalgia; Z20.822 Contact with and (suspected) exposure to COVID-19; M81.0 Age-related osteoporosis without current pathological fracture; E11.9 Type 2 diabetes mellitus without complications; E66.9 Obesity, unspecified; F17.210 Nicotine dependence, cigarettes, uncomplicated; F32.A Depression, unspecified; F41.9 Anxiety disorder, unspecified; G25.81 Restless legs syndrome; Z99.81 Dependence on supplemental oxygen; I10 Essential (primary) hypertension; F40.240 Claustrophobia; G35 Multiple sclerosis; G47.33 Obstructive sleep apnea (adult) (pediatric); I49.1 Atrial premature depolarization; R77.8 Other specified abnormalities of plasma proteins; H26.9 Unspecified cataract; H91.90 Unspecified hearing loss, unspecified ear; M19.90 Unspecified osteoarthritis, unspecified site; H54.7 Unspecified visual loss; Z91.81 History of falling; Z79.82 Long term (current) use of aspirin; Z79.899 Other long term (current) drug therapy; Z85.42 Personal history of malignant neoplasm of other parts of uterus; Z90.710 Acquired absence of both cervix and uterus; Z82.41 Family history of sudden cardiac death; Z82.49 Family history of ischemic heart disease and other diseases of the circulatory system; Z71.3 Dietary counseling and surveillance; Z88.8 Allergy status to other drugs, medicaments and biological substances
CPT/HCPCS: 31624; 36415; 71045; 71046; 80048; 80053; 81003; 83605; 83880; 84132; 84145; 84484; 85025; 85610; 85730; 87502; 87634; 87635; 88108; 88305; 93005; 94640; 94760; 96365; 96366; 96368; 96375; 96376; 99285

== ENCOUNTER 2022-03-11 07:15 | Emergency (ER) | payer MEDICARE, OTHER ==
[2022-03-11 07:43] VITALS: TEMP 98.3
[2022-03-11] MEDS ORDERED: IPRATROPIUM-ALBUTEROL 3 ML NEB INHALATION STA (07:43)
[2022-03-11] MEDS ORDERED: methylPREDNISolone SOD SUCCI 125 MG/2 ML VIAL IV STA (07:43)
[2022-03-11] MEDS ORDERED: MORPHINE SULFATE 4 MG/ML SYRINGE IVP STA (07:46)
--- NOTE | 2022-03-11 07:55 | ED ---
General Adult HPI - General Chief complaint: Shortness of Breath Stated complaint: SOB Time Seen by Provider: 03/11/22 07:30 Source: patient, EMS, RN notes reviewed, old records reviewed Mode of arrival: EMS Limitations: no limitations - History of Present Illness Initial comments: Patient is a 56-year-old female with past medical history remarkable for asthma, COPD no longer on home oxygen, fibromyalgia, hypertension, sleep apnea who presents emergency Department with multiple complaints. Patient recently was admitted to the hospital for stay with viral pneumonia discharged home in the middle of last month. States over the last week or so she is having worsening productive cough. States his morbid throaty cough. He is not coughing as much. Denies sore throat but does endorse nasal congestion. Is not sure what may be causing it. Has not previously had Covid or fluid here. Denies any worsening exertional dyspnea. Does endorse a few days of worsening lower extremity edema that is improved. States she is on only hydrochlorothiazide as a water pill/antihypertensive medication. No other diuretics. No history of congestive heart failure. Denies worsening orthopnea. Denies worsening PND. Denies any nausea, vomiting, diarrhea. States she did fall a few days ago and is having some lower lumbar spine tenderness to palpation. Denies any difficulty with urination or bowel movements. Denies any saddle anesthesias. This of chronic neuropathy in bilateral lower extremities. Endorses somewhat generalized pain without any focal area other than the lower lumbar spine. She does state she is having occasional chest pain but it is poorly localized, and is not constant. Currently does not have any. States it is somewhat over the front side as well as the left lower side of her chest. However this seems to [place] with her lumbar spine pain as well. Patient states she is short of breath because of her cough, as well as rhinorrhea. At baseline she is somewhat short of breath but denies any significant worsening exertional shortness of breath beyond baseline. Patient states she is not on blood thinners. No history of blood clots. Patient discussed with triage that her "throat was closing up last night and she does s uffer fingers in her throat keep it open. States that breathing treatments helped. She feels improved at this time. The sounds that she is having a COPD exacerbation requiring breathing treatments. No signs of anaphylaxis or ALLERGIC reaction at this time.Has no other acute complaints at this time. Presents for further evaluation. - Related Data Home Medications Medication Instructions Recorded Confirmed Verapamil HCl [Calan] 120 mg PO DAILY 02/20/14 02/09/22 Butalb/APAP/Caff 50-325-40Mg 1 tab PO Q8H PRN 03/25/17 02/09/22 [Fioricet 50-325-40] Multivitamins, Thera [Multivitamin 1 tab PO DAILY 05/07/18 02/09/22 (formulary)] Pantoprazole Sodium [Protonix] 40 mg PO BID 10/31/18 02/09/22 Memantine [Namenda] 10 mg PO BID 11/22/18 02/09/22 Montelukast [Singulair] 10 mg PO DAILY 11/22/18 02/09/22 Fluticasone Nasal [place] [Flonase 2 spr EA NOSTRIL DAILY PRN 04/28/19 02/09/22 Nasal [place]] methocarbamoL [Robaxin-750] 750 mg PO TID PRN 04/28/19 02/09/22 Albuterol Sulfate [Ventolin HFA] 2 puff INHALATION RT-QID PRN 08/09/19 02/09/22 Docusate [Colace] 100 mg PO DAILY PRN 01/30/20 02/09/22 Zinc Gluconate [Zinc] 50 mg PO DAILY 01/30/20 02/09/22 Elderberry Fruit and Flower [Black 1 cap PO DAILY 06/14/20 02/09/22 Elderberry 575 mg Cap] Turmeric Root Extract [Turmeric] 500 mg PO DAILY 06/14/20 02/09/22 Gabapentin 800 mg PO TID 08/21/20 02/09/22 Topiramate [Topamax] 100 mg PO BID 08/21/20 02/09/22 oxyCODONE-APAP 7.5-325MG [Percocet 1 tab PO TID PRN 10/30/20 02/09/22 7.5-325 mg] Cholecalciferol [Vitamin D3 (25 50 mcg PO DAILY 06/15/21 02/09/22 Mcg = 1000 Iu)] Fluticasone/Umeclidin/Vilanter 1 puff INHALATION RT-DAILY 06/15/21 02/09/22 [Trelegy Ellipta 200-62.5-25] PARoxetine HCL [Paxil] 40 mg PO DAILY 06/15/21 02/09/22 busPIRone HCl [Buspar] 10 mg PO TID 06/15/21 02/09/22 guaiFENesin-DM 600/30MG [Mucinex 2 tab PO Q12HR PRN 06/15/21 02/09/22 Dm] Ipratropium-Albuterol Nebulize 3 ml INHALATION RT-QID PRN 08/13/21 02/09/22 [Duoneb 0.5 mg-3 mg/3 ml Soln] Aspirin EC [Ecotrin Low Dose] 81 mg PO DAILY 02/09/22 02/09/22 Budesonide [Pulmicort] 0.5 mg INHALATION RT-BID 02/09/22 02/09/22 Previous Rx's Medication Instructions Recorded rOPINIRole HCL [Requip] 0.25 mg PO TID #90 tab 01/31/18 hydroCHLOROthiazide [Hydrodiuril] 25 mg PO DAILY tab 11/26/18 Folic Acid 1 mg PO DAILY #30 tab 05/02/19 Sucralfate [Carafate] 1 gm PO ACHS #120 tab 04/03/21 Melatonin 10 mg PO HS tab 02/15/22 Nicotine 14Mg/24Hr Patch [Habitrol] 1 patch TRANSDERM DAILY #3 patch 02/15/22 Nystatin 100,000 Unit/ml Susp 500,000 unit PO QID 5 Days #30 ml 02/15/22 [Mycostatin Oral Susp] cefUROXime axetiL [Ceftin] 500 mg PO BID 10 Days #20 tab 02/15/22 predniSONE 10 mg PO DIRECTED #40 tab 02/15/22 Albuterol Inhaler [Ventolin Hfa 1 - 2 puff INHALATION Q6H PRN #1 03/11/22 Inhaler] dispenser Doxycycline [Vibramycin] 100 mg PO BID 7 Days #14 capsule 03/11/22 Lidocaine 5% Patch [Lidoderm 5% 1 patch TOPICAL DAILY PRN 7 Days 03/11/22 Patch] #7 patch predniSONE [Deltasone] 40 mg PO DAILY 5 Days #10 tab 03/11/22 Allergies Allergy/AdvReac Type Severity Reaction Status Date / Time baclofen AdvReac URINARY Verified 03/11/22 07:43 ISSUES dexamethasone [From Decadron] AdvReac "THOMPSON Verified 03/11/22 07:43 SKIN"/DEHYDRATION Review of Systems ROS Statement: Those systems with pertinent positive or pertinent negative responses have been documented in the HPI. Review of Systems: CONST: Denies fever EYES: Denies blurry vision ENT: Endorses nasal congestion, cough C/V: Denies current chest pain. RESP: Denies shortness of breath GI: Denies abdominal pain : Denies dysuria SKIN: Denies rash. MSK: Endorses low back pain NEURO: Denies headache ROS Other: All systems not noted in ROS Statement are negative. Past Medical History Past Medical History: Asthma, Cancer, COPD, Eye Disorder, Fibromyalgia, GERD/Reflux, Hearing Disorder / Deafness, Hypertension, Memory Impairment, Musculoskeletal Disorder, Neurologic Disorder, Osteoarthritis (OA), Pneumonia, Sleep Apnea/CPAP/BIPAP, Syncope Additional Past Medical History / Comment(s): MS relapsing/remitting type, chronic bilateral eye pain/optic neuritis/ poor vision, cataracts bilaterally, chronic occipital neuralgia, osteoporosis, RLS, chronic hypoxic respiratory failure with home oxygen 2L/NC prn, chronic bronchitis, immunocompromised, elevated blood sugar with steroid use, uterine cancer with hysterectomy/radiation, heart murmur, mild cognitive impairment, chronic vertigo, falls, rheumatic fever as child, tinnitis bilaterally, allergic rhinitis, trigeminal neuralgia. History of Any Multi-Drug Resistant Organisms: None Reported Past Surgical History: Bladder Surgery, Heart Catheterization, Hysterectomy, Tubal Ligation Additional Past Surgical History / Comment(s): Nerve blocks, bladder suspension, fibroid removal. PA[facility] Past Anesthesia/Blood Transfusion Reactions: No Reported Reaction, Postoperative Nausea & Vomiting (PONV) Additional Past Anesthesia/Blood Transfusion Reaction / Comment(s): mild claustrophobia Past Psychological History: Anxiety, Depression Smoking Status: Current some day smoker Past Alcohol Use History: Occasional Past Drug Use History: None Reported - Past Family History Mother Family Medical History: CVA/TIA, Myocardial Infarction ([place]) Additional Family Medical History / Comment(s): Mother is alive at age 75 with history of brain aneurysm, 3 strokes and 2 myocardial infarctions. Brain aneurysms run on mother's side of family Father Family Medical History: Coronary Artery Disease (CAD) Additional Family Medical History / Comment(s): Father at age 72 from a ca rdiac arrest thought to be due to a myocardial infarction. Sister(s) Family Medical History: No Reported History Additional Family Medical History / Comment(s): Patient has 2 sisters with no major medical problems. Patient does not have any brothers. Patient has 2 adult children with no major medical problems. Patient is only family member with MS. General Exam - General Exam Comments Initial Comments: General: Appears in no acute distress. HEAD: Normal with no signs of head trauma. EYES: PERRLA, EOMI, conjunctiva normal, no discharge. ENT: Hearing grossly intact, normal oropharynx. Moist mucous membranes.No stridor auscultated. Posterior oropharynx appears within normal limits. No edema. No swelling. Uvula is midline. RESPIRATORY: Mild bilateral end expiratory wheezing. No rhonchi. No respiratory distress. No hypoxia on room air. C/V: Regular rate and rhythm. S1 and S2 auscultated, 1+ pitting edema in bilateral lower extremities up to the calf. Symmetrical., peripheral pulses 2+ and intact throughout ABD: Abd is soft, nontender, nondistended EXT: Normal range of motion, no obvious deformity. No midline cervical or thoracic spine tenderness to palpation. Mild lumbar spine tenderness palpation but seems to be more localized to the bilateral paraspinal muscles of the lumbar spine. Worse with movement and palpation. Pelvis is stable. SKIN: No rashes or lesions observed on exposed skin. NEURO: Alert and oriented 4. No acute focal deficits appreciated. Limitations: no limitations Course Vital Signs 03/11/22 03/11/22 03/11/22 07:20 08:42 09:09 Temperature 98.3 F Pulse Rate 91 87 Respiratory 17 15 Rate Blood Pressure 120/76 O2 Sat by Pulse 95 Oximetry 03/11/22 03/11/22 09:18 10:55 Temperature Pulse Rate 94 83 Respiratory 17 Rate Blood Pressure 127/84 O2 Sat by Pulse 95 Oximetry Medical Decision Making - Medical Decision Making Based on patient's presentation and physical exam, I'm concerned for cardiac, etiology for her current symptoms. Does appear to be infectious in nature but she has other concerning factors such as worsening lower extremity edema. Her cough is nonproductive. We will obtain cardiopulmonary labs including screening d-dimer, troponin, BNP. COVID-19 please also be obtained. Chest x-ray, EKG will be obtained. We will start with an x-ray of her lower lumbar spine as well. We'll also obtain venous duplexes of bilateral lower extremities. Patient was in agreement this plan. She was given IV analgesia medication as well as 324 mg of aspirin and a breathing treatment for her mild COPD exacerba tion. She was in agreement this plan. Vital signs within acceptable limits. EKG showed no signs of acute ischemia. Chest x-ray as interpreted by me revealed no acute cardiopulmonary process. Lumbar spine x-rays revealed no acute process. Venous duplex of bilateral extremities reveal no signs of DVT. Patient's lavatory studies are remarkable for a mild leukocytosis of 10.9 which is likely reactive. Troponin is undetectable. BNP within normal limits. D- dimer within normal limits. Remainder of labs are unremarkable including a negative Covid/flu. On reevaluation, patient is feeling improved. I discussed her negative workup. I believe she likely has early bronchitis as well as COPD exacerbation. Wheezing is improved at this time. Vital signs are within acceptable limits per she'll be discharged home on antibiotics, steroids, albuterol. She was in agreement this plan. Strict return precautions were discussed. I will provide the patient with a prescription for doxycycline, prednisone, albuterol inhaler, lidocaine patch. I instructed the patient to follow up with their PCP in the next 1-3 days. I explained that the patient should return to the emergency department if they experience any worsening symptoms. Strict return precautions were discussed with the patient. The patient expressed understanding of these instructions. I answered all questions that the patient had. The patient was discharged home in good condition with their prescriptions and follow up information. - Lab Data Result diagrams: 03/11/22 07:48 03/11/22 07:48 Lab Results 03/11/22 03/11/22 03/11/22 Range/Units 07:48 07:48 07:48 WBC 10.9 H (3.8-10.6) k/uL RBC 4.26 (3.80-5.40) m/uL Hgb 13.8 (11.4-16.0) gm/dL Hct 44.7 (34.0-46.0) % MCV 104.8 H (80.0-100.0) fL MCH 32.3 (25.0-35.0) pg MCHC 30.8 L (31.0-37.0) g/dL RDW 14.2 (11.5-15.5) % Plt Count 238 (150-450) k/uL MPV 8.9 Neutrophils % 68 % Lymphocytes % 23 % Monocytes % 5 % Eosinophils % 3 % Basophils % 1 % Neutrophils # 7.4 (1.3-7.7) k/uL Lymphocytes # 2.5 (1.0-4.8) k/uL Monocytes # 0.5 (0-1.0) k/uL Eosinophils # 0.3 (0-0.7) k/uL Basophils # 0.1 (0-0.2) k/uL Hypochromasia Marked Macrocytosis Moderate PT 10.0 (9.0-12.0) sec INR 0.9 (<1.2) APTT 22.4 (22.0-30.0) sec D-Dimer 0.35 (<0.60) mg/L FEU Sodium (137-145) mmol/L Potassium (3.5-5.1) mmol/L Chloride (98-107) mmol/L Carbon Dioxide (22-30) mmol/L Anion Gap mmol/L BUN (7-17) mg/dL Creatinine (0.52-1.04) mg/dL Est GFR (CKD-EPI)AfAm (>60 ml/min/1.73 sqM) Est GFR (CKD-EPI)NonAf (>60 ml/min/1.73 sqM) Glucose (74-99) mg/dL Calcium (8.4-10.2) mg/dL Magnesium (1.6-2.3) mg/dL Total Bilirubin (0.2-1.3) mg/dL AST (14-36) U/L ALT (4-34) U/L Alkaline Phosphatase (38-126) U/L Troponin I (0.000-0.034) ng/mL NT-Pro-B Natriuret Pep pg/mL Total Protein (6.3-8.2) g/dL Albumin (3.5-5.0) g/dL Urine Color Colorless Urine Appearance Clear (Clear) Urine pH 6.5 (5.0-8.0) Ur Specific [place] 1.004 (1.001-1.035) Urine Protein Negative (Negative) Urine Glucose (UA) Negative (Negative) Urine Ketones Negative (Negative) Urine Blood Negative (Negative) Urine Nitrite Negative (Negative) Urine Bilirubin Negative (Negative) Urine Urobilinogen <2.0 (<2.0) mg/dL Ur Leukocyte Esterase Negative (Negative) Coronavirus (PCR) (Not Detectd) Influenza Type A RNA (Not Detectd) Influenza Type B (PCR) (Not Detectd) 03/11/22 03/11/22 03/11/22 Range/Units 07:48 07:48 07:48 WBC (3.8-10.6) k/uL RBC (3.80-5.40) m/uL Hgb (11.4-16.0) gm/dL Hct (34.0-46.0) % MCV (80.0-100.0) fL MCH (25.0-35.0) pg MCHC (31.0-37.0) g/dL RDW (11.5-15.5) % Plt Count (150-450) k/uL MPV Neutrophils % % Lymphocytes % % Monocytes % % Eosinophils % % Basophils % % Neutrophils # (1.3-7.7) k/uL Lymphocytes # (1.0-4.8) k/uL Monocytes # (0-1.0) k/uL Eosinophils # (0-0.7) k/uL Basophils # (0-0.2) k/uL Hypochromasia Macrocytosis PT (9.0-12.0) sec INR (<1.2) APTT (22.0-30.0) sec D-Dimer (<0.60) mg/L FEU Sodium 141 (137-145) mmol/L Potassium 4.1 (3.5-5.1) mmol/L Chloride 103 (98-107) mmol/L Carbon Dioxide 31 H (22-30) mmol/L Anion Gap 7 mmol/L BUN 8 (7-17) mg/dL Creatinine 0.53 (0.52-1.04) mg/dL Est GFR (CKD-EPI)AfAm >90 (>60 ml/min/1.73 sqM) Est GFR (CKD-EPI)NonAf >90 (>60 ml/min/1.73 sqM) Glucose 103 H (74-99) mg/dL Calcium 8.4 (8.4-10.2) mg/dL Magnesium 1.7 (1.6-2.3) mg/dL Total Bilirubin 0.6 (0.2-1.3) mg/dL AST 40 H (14-36) U/L ALT 38 H (4-34) U/L Alkaline Phosphatase 81 (38-126) U/L Troponin I <0.012 (0.000-0.034) ng/mL NT-Pro-B Natriuret Pep 100 pg/mL Total Protein 5.7 L (6.3-8.2) g/dL Albumin 3.8 (3.5-5.0) g/dL Urine Color Urine Appearance (Clear) Urine pH (5.0-8.0) Ur Specific [place] (1.001-1.035) Urine Protein (Negative) Urine Glucose (UA) (Negative) Urine Ketones (Negative) Urine Blood (Negative) Urine Nitrite (Negative) Urine Bilirubin (Negative) Urine Urobilinogen (<2.0) mg/dL Ur Leukocyte Esterase (Negative) Coronavirus (PCR) (Not Detectd) Influenza Type A RNA (Not Detectd) Influenza Type B (PCR) (Not Detectd) 03/11/22 03/11/22 Range/Units 07:48 07:48 WBC (3.8-10.6) k/uL RBC (3.80-5.40) m/uL Hgb (11.4-16.0) gm/dL Hct (34.0-46.0) % MCV (80.0-100.0) fL MCH (25.0-35.0) pg MCHC (31.0-37.0) g/dL RDW (11.5-15.5) % Plt Count (150-450) k/uL MPV Neutrophils % % Lymphocytes % % Monocytes % % Eosinophils % % Basophils % % Neutrophils # (1.3-7.7) k/uL Lymphocytes # (1.0-4.8) k/uL Monocytes # (0-1.0) k/uL Eosinophils # (0-0.7) k/uL Basophils # (0-0.2) k/uL Hypochromasia Macrocytosis PT (9.0-12.0) sec INR (<1.2) APTT (22.0-30.0) sec D-Dimer (<0.60) mg/L FEU Sodium (137-145) mmol/L Potassium (3.5-5.1) mmol/L Chloride (98-107) mmol/L Carbon Dioxide (22-30) mmol/L Anion Gap mmol/L BUN (7-17) mg/dL Creatinine (0.52-1.04) mg/dL Est GFR (CKD-EPI)AfAm (>60 ml/min/1.73 sqM) Est GFR (CKD-EPI)NonAf (>60 ml/min/1.73 sqM) Glucose (74-99) mg/dL Calcium (8.4-10.2) mg/dL Magnesium (1.6-2.3) mg/dL Total Bilirubin (0.2-1.3) mg/dL AST (14-36) U/L ALT (4-34) U/L Alkaline Phosphatase (38-126) U/L Troponin I (0.000-0.034) ng/mL NT-Pro-B Natriuret Pep pg/mL Total Protein (6.3-8.2) g/dL Albumin (3.5-5.0) g/dL Urine Color Urine Appearance (Clear) Urine pH (5.0-8.0) Ur Specific [place] (1.001-1.035) Urine Protein (Negative) Urine Glucose (UA) (Negative) Urine Ketones (Negative) Urine Blood (Negative) Urine Nitrite (Negative) Urine Bilirubin (Negative) Urine Urobilinogen (<2.0) mg/dL Ur Leukocyte Esterase (Negative) Coronavirus (PCR) Not Detected (Not Detectd) Influenza Type A RNA Not Detected (Not Detectd) Influenza Type B (PCR) Not Detected (Not Detectd) - EKG Data -: EKG Interpreted by Me EKG Comments: 12-lead Electrocardiogram Interpretation Note EKG was reviewed and interpreted by myself. 12-lead ECG performed at 0801 is interpreted by me as revealing normal sinus rhythm at a rate of 90 beats per minute. [place] is normal. MO interval is 144 ms, QRS duration is 70 ms, QTc is 427 ms.. There were no ST or T wave abnormalities to suggest myocardial ischemia or injury. R wave progression across the precordium was satisfactory. By my interpretation this EKG is non-diagnostic for acute ischemia. When Compared with EKG from February 2022, no significant changes observed. Disposition Clinical Impression: Bronchitis, COPD exacerbation, Muscle strain Disposition: HOME SELF-CARE Condition: Good Instructions (If sedation given, give patient instructions): Acute Bronchitis (ED) Prescriptions: predniSONE [Deltasone] 40 mg PO DAILY 5 Days #10 tab Lidocaine 5% Patch [Lidoderm 5% Patch] 1 patch TOPICAL DAILY PRN 7 Days #7 patch PRN Reason: Pain Albuterol Inhaler [Ventolin Hfa Inhaler] 1 - 2 puff INHALATION Q6H PRN #1 dispenser PRN Reason: Dyspnea Doxycycline [Vibramycin] 100 mg PO BID 7 Days #14 capsule Is patient prescribed a controlled substance at d/c from ED?: No Referrals: Kilo Tabares MD [Primary Care Provider] - 1-2 days Time of Disposition: 10:20
[2022-03-11] MEDS ORDERED: ASPIRIN 81 MG PO STA (07:56)
[2022-03-11 08:22] LABS: Basophils # (A) 0.1 k/uL (0-0.2); Basophils % (A) 1 %; Eosinophils # (A) 0.3 k/uL (0-0.7); Eosinophils % (A) 3 %; HCT 44.7 % (34.0-46.0); HGB 13.8 gm/dL (11.4-16.0); Hypochromasia Marked; Lymphocytes # (A) 2.5 k/uL (1.0-4.8); Lymphocytes % (A) 23 %; MCH 32.3 pg (25.0-35.0); MCHC 30.8 g/dL (31.0-37.0); MCV 104.8 fL (80.0-100.0); Macrocytosis Moderate; Mean Platelet Volume 8.9; Monocytes # (A) 0.5 k/uL (0-1.0); Monocytes % (A) 5 %; Neutrophils # (A) 7.4 k/uL (1.3-7.7); Neutrophils % (A) 68 %; Platelet Count 238 k/uL (150-450); RBC 4.26 m/uL (3.80-5.40); RDW 14.2 % (11.5-15.5); WBC 10.9 k/uL (3.8-10.6)
[2022-03-11 08:25] LABS: Appearance,Urine Clear (Clear); Bilirubin,Urine Negative (Negative); Blood,Urine Negative (Negative); Color,Urine Colorless; Glucose,Urine (UA) Negative (Negative); Ketones,Urine Negative (Negative); Leukocyte Esterase,Urine Negative (Negative); Nitrite,Urine Negative (Negative); PH, Urine 6.5 (5.0-8.0); Protein,Urine Negative (Negative); Specific Gravity,Urine 1.004 (1.001-1.035); Urobilinogen,Urine <2.0 mg/dL (<2.0)
[2022-03-11 08:32] LABS: ALT 38 U/L (4-34); AST 40 U/L (14-36); African American GFR (CKD) >90 (>60 ml/min/1.73 sqM); Albumin 3.8 g/dL (3.5-5.0); Alkaline Phosphatase 81 U/L (38-126); Anion Gap 7 mmol/L; Blood Urea Nitrogen 8 mg/dL (7-17); Calcium 8.4 mg/dL (8.4-10.2); Carbon Dioxide 31 mmol/L (22-30); Chloride 103 mmol/L (98-107); Glucose 103 mg/dL (74-99); Magnesium 1.7 mg/dL (1.6-2.3); Non-African American GFR(CKD) >90 (>60 ml/min/1.73 sqM); Sodium 141 mmol/L (137-145); Total Bilirubin 0.6 mg/dL (0.2-1.3); Total Protein 5.7 g/dL (6.3-8.2)
[2022-03-11 08:36] LABS: INR 0.9 (<1.2); Partial Thromboplastin Time 22.4 sec (22.0-30.0)
[2022-03-11 08:52] LABS: Potassium 4.1 mmol/L (3.5-5.1)
--- NOTE | 2022-03-11 09:03 | XR ---
EXAMINATION TYPE: XR chest 2V DATE OF EXAM: 03/11/2022 COMPARISON: 02/12/2022 TECHNIQUE: PA and lateral views submitted. HISTORY: Pain FINDINGS: Exam limited by technique. The lungs are clear and there is no pneumothorax, pleural effusion, or focal pneumonia. Heart size prominent with no overt failure. Arthropathy shoulders hypertrophic degenerative changes in the spine . Correlate for COPD IMPRESSION: 1. Heart size is prominent with no overt failure correlate clinically. Correlate for COPD
--- NOTE | 2022-03-11 09:04 | XR ---
EXAM TYPE: LUMBAR SPINE X RAY SERIES COMPARISON: NONE HISTORY: Pain TECHNIQUE: 3 views are submitted. FINDINGS: Alignment is anatomic. The pedicles are intact. The transverse processes are intact. There is no s pondylolisthesis. Mild facet arthropathy L4-5 and L5-S1 tiny spurs seen anteriorly at multiple verte bral segments. Vascular calcifications IMPRESSION: 1. Mild multilevel hypertrophic changes and facet arthropathy..
--- NOTE | 2022-03-11 10:06 | US ---
EXAMINATION TYPE: US venous doppler duplex LE DATE OF EXAM: 03/11/2022 9:32 AM COMPARISON: US 2019 CLINICAL HISTORY: worsening BL leg swelling. eval for dvt. SIDE PERFORMED: Bilateral TECHNIQUE: The lower extremity deep venous system is examined utilizing real time linear array sonog beth with graded compression, doppler sonography and color-flow sonography. VESSELS IMAGED: Common Femoral Vein Deep Femoral Vein Greater Saphenous Vein * Femoral Vein Popliteal Vein Small Saphenous Vein * Proximal Calf Veins (* superficial vessels) Right Leg: Appears negative for DVT Left Leg: Visualized portions appears negative for DVT, patient unable to tolerate popliteal sepideh cali images IMPRESSION: 1. Right lateral lower extremity ultrasound as visualized. Negative for deep venous thrombosis. 2. There is limitation of the left leg evaluation due to patient tolerance.
[2022-03-11] MEDS ORDERED: HYDROcodone/APAP 5-325MG 1 EACH TAB PO STA (10:29)
[2022-03-11] MEDS ORDERED: LIDOCAINE 5% PATCH TOPICAL STA (10:29)
[2022-03-11] MEDS ORDERED: DOXYCYCLINE 100 MG CAP PO STA (10:29)
[2022-03-11 10:57] VITALS: BP 127/84; PULSE 83; RESP 17
== END 2022-03-11 11:30 | disposition home or self-care (01) ==
LOC: EC 07:15
DX: J44.1 Chronic obstructive pulmonary disease with (acute) exacerbation (principal); T14.8XXA Other injury of unspecified body region, initial encounter; I10 Essential (primary) hypertension; K21.9 Gastro-esophageal reflux disease without esophagitis; M19.90 Unspecified osteoarthritis, unspecified site; G47.30 Sleep apnea, unspecified; F41.9 Anxiety disorder, unspecified; F32.A Depression, unspecified; F17.200 Nicotine dependence, unspecified, uncomplicated; Z79.51 Long term (current) use of inhaled steroids; Z79.899 Other long term (current) drug therapy; Z79.82 Long term (current) use of aspirin; Z79.83 Long term (current) use of bisphosphonates; Z88.6 Allergy status to analgesic agent; Z88.8 Allergy status to other drugs, medicaments and biological substances; Z20.822 Contact with and (suspected) exposure to COVID-19
CPT/HCPCS: 36415; 94640; 93005; 85379; 83880; 80053; 83735; 84484; 85025; 85610; 85730; 81003; 87502; 87635; 72100; 71046; 93970; 99285; 96374; 96375; J2270; J2930

== ENCOUNTER → 2022-11-12 | Outpatient (CLI) | payer MEDICARE, OTHER ==
--- NOTE | 2022-11-13 08:42 | MM ---
Reason for Exam: Screening (asymptomatic). Last mammogram was performed 12 year(s) and 6 month(s) ago. Patient History: Menarche at age 11. First Full-Term at age 18. Hysterectomy at age 33. Postmenopausal. Endometrial cancer, age 33. Core Biopsy on the Right side. 08/31/2003, Benign Stereotactic Core Biopsy on the right side. Maternal grandmother had ovarian cancer. Risk Values: Padmini 5 year model risk: 1.5%. NCI Lifetime model risk: 7.8%. Prior Study Comparison: 08/14/2004 Bilateral Screening Mammogram, [facility]. 08/22/2004 Left Special View Mammogram, [facility]. 02/22/2007 Bilateral Screening Mammogram, [facility]. 03/23/2009 Bilateral Screening Mammogram, [facility]. 05/06/2010 Bilateral Screening Mammogram, [facility]. Tissue Density: The breast tissue is heterogeneously dense. This may lower the sensitivity of mammography. Findings: Analyzed By CAD. There is previously sampled right breast nodule. Benign calcifications are seen bilaterally. No evidence for distortion or suspicious cluster of microcalcifications. Overall Assessment: Benign, BI-RAD 2 Management: Screening Mammogram of both breasts in 1 year. . Patient should continue monthly self-breast exams. A clinical breast exam by your physician is recommended on an annual basis. This exam should not preclude additional follow-up of suspicious palpable abnormalities. Note on Padmini scores and lifetime risk: 1. A Padmini score greater than 3% is considered moderate risk. If this is the case, consider specialist referral to assess eligibility for a risk reducing agent. 2. If overall lifetime risk for the development of breast cancer is 20% or higher, the patient may qualify for future screening with alternating mammogram and breast MRI. Electronically signed and approved by: Kendall Reynolds M.D. Radiologis
== END | disposition home or self-care (01) ==
LOC: RADMAMWWP 09:21
PROVIDERS: ATTEND Family Medicine
DX: Z12.31 Encounter for screening mammogram for malignant neoplasm of breast (principal); Z78.0 Asymptomatic menopausal state
CPT/HCPCS: 77063; 77067

== ENCOUNTER → 2022-11-17 | Outpatient (CLI) | payer MEDICARE, OTHER ==
[2022-11-17 16:02] LABS: Basophils % (A) 0.8 %; Eosinophils # (A) 0.39 X 10*3/uL (0.04-0.35); Eosinophils % (A) 2.9 %; HGB 15.5 d/dL (12.0-15.0); Lymphocytes # (A) 4.55 X 10*3/uL (0.90-5.00); Lymphocytes % (A) 34.3 %; MCV 96.7 FL (80.0-97.0); Mean Platelet Volume 11.2 FL (9.5-12.2); Monocytes # (A) 0.91 X 10*3/uL (0.20-1.00); Monocytes % (A) 6.9 %; NRBC Per 100 WBC 0 X 10*3/uL (0.00-0.01); Neutrophils # (A) 7.28 X 10*3/uL (1.80-7.70); Neutrophils % (A) 54.7 %; Platelet Count 299 X 10*3/uL (140-440); RBC 5.17 X 10*6/uL (4.10-5.20); RDW 13.6 % (11.5-14.5); WBC 13.28 X 10*3/uL (4.50-10.00)
[2022-11-17 16:09] LABS: Chol/HDL Ratio 3.82 Ratio; LDL Cholesterol,Calculated 114.7 mg/dL (0.0-131.0); VLDL Calculation 13.74 mg/dL (5.00-40.00)
[2022-11-17 16:10] LABS: ALT 35 U/L (8-44); AST 21 U/L (13-35); Albumin 4.6 d/dL (3.8-4.9); Albumin/Globulin Ratio 2.56 Ratio (1.60-3.17); Alkaline Phosphatase 124 U/L (41-126); Blood Urea Nitrogen 15.6 mg/dL (9.0-27.0); Calcium 9.8 mg/dL (8.7-10.3); Chloride 103 mmol/L (96-109); Globulin 1.8 d/dL (1.6-3.3); Glucose 91 mg/dL (70-110); Sodium 143 mmol/L (135-145); Total Bilirubin 0.2 mg/dL (0.3-1.2); Total Protein 6.4 d/dL (6.2-8.2)
== END | disposition home or self-care (01) ==
LOC: LABWHC1 09:44
PROVIDERS: ATTEND Psychiatry & Neurology Neurology
DX: I10 Essential (primary) hypertension (principal); G35 Multiple sclerosis; E55.9 Vitamin D deficiency, unspecified; R73.03 Prediabetes
CPT/HCPCS: 36415; 80053; 80061; 83036; 84443; 85025

== ENCOUNTER 2023-03-24 09:48 | Emergency (ER) | payer MEDICARE, OTHER ==
[2023-03-24 10:21] VITALS: RESP 20; TEMP 98.3
[2023-03-24 11:14] LABS: Basophils % (A) 0 %; Eosinophils # (A) 0.4 k/uL (0-0.7); Eosinophils % (A) 4 %; HCT 44.1 % (34.0-46.0); HGB 13.8 gm/dL (11.4-16.0); Hypochromasia Slight; Lymphocytes # (A) 3.3 k/uL (1.0-4.8); Lymphocytes % (A) 29 %; MCH 31.4 pg (25.0-35.0); MCHC 31.4 g/dL (31.0-37.0); MCV 100.1 fL (80.0-100.0); Mean Platelet Volume 9.4; Monocytes # (A) 0.6 k/uL (0-1.0); Monocytes % (A) 5 %; Neutrophils # (A) 6.8 k/uL (1.3-7.7); Neutrophils % (A) 60 %; Platelet Count 250 k/uL (150-450); RDW 13.6 % (11.5-15.5); WBC 11.4 k/uL (3.8-10.6)
[2023-03-24 11:17] LABS: INR 0.9 (<1.2); Partial Thromboplastin Time 24.4 sec (22.0-30.0); Prothrombin Time 9.8 sec (10.0-12.5)
[2023-03-24 11:18] LABS: ALT 24 U/L (4-34); AST 24 U/L (14-36); African American GFR (CKD) >90 (>60 ml/min/1.73 sqM); Albumin 3.9 g/dL (3.5-5.0); Alkaline Phosphatase 117 U/L (38-126); Anion Gap 9 mmol/L; Blood Urea Nitrogen 13 mg/dL (7-17); Calcium 9.2 mg/dL (8.4-10.2); Carbon Dioxide 32 mmol/L (22-30); Chloride 99 mmol/L (98-107); Glucose 110 mg/dL (74-99); Magnesium 1.7 mg/dL (1.6-2.3); Non-African American GFR(CKD) >90 (>60 ml/min/1.73 sqM); Potassium 3.6 mmol/L (3.5-5.1); Sodium 140 mmol/L (137-145); Total Bilirubin 0.3 mg/dL (0.2-1.3)
[2023-03-24] MEDS ORDERED: ASPIRIN 81 MG PO STA (11:18)
[2023-03-24] MEDS ORDERED: MORPHINE SULFATE 4 MG/ML SYRINGE IVP STA (11:19)
--- NOTE | 2023-03-24 11:33 | XR ---
EXAMINATION TYPE: XR chest 2V DATE OF EXAM: 03/24/2023 11:30 AM CLINICAL INDICATION:Female, 57 years old with history of Chest Pain; [facility] COMPARISON: Chest radiographs from 03/11/2022 TECHNIQUE: XR chest 2V Frontal and lateral views of the chest. FINDINGS: Lungs/Pleura: There is flattening of the diaphragm with increased lucency of the lungs. No evidence o f pneumothorax, pleural effusion or focal consolidation. Pulmonary vascularity: Unremarkable. Heart/mediastinum: Cardiomediastinal silhouette is enlarged and stable. Musculoskeletal: No acute osseous pathology. Other findings: None Lines/Tubes: IMPRESSION: 1. Similar cardiomegaly, No acute cardiopulmonary disease/process. 2. COPD changes.
--- NOTE | 2023-03-24 12:46 | US ---
EXAMINATION TYPE: US venous doppler duplex LE BI DATE OF EXAM: 03/24/2023 11:19 AM COMPARISON: 03/11/2022 CLINICAL INDICATION: Female, 57 years old with history of eval for dvt; No redness. Swelling per pat ient. Baby aspirin. SIDE PERFORMED: Bilateral TECHNIQUE: The lower extremity deep venous system is examined utilizing real time linear array sonog beth with graded compression, doppler sonography and color-flow sonography. VESSELS IMAGED: Common Femoral Vein Deep Femoral Vein Greater Saphenous Vein * Femoral Vein Popliteal Vein Small Saphenous Vein * Proximal Calf Veins (* superficial vessels) Right Leg: Negative for DVT Left Leg: Negative for DVT Subcutaneous edema in the lower extremity's. IMPRESSION: Grayscale, color doppler, spectral doppler imaging performed of the deep veins of the lo wer extremities. There is normal flow, compressibility, vascular waveforms.
--- NOTE | 2023-03-24 12:46 | US ---
EXAMINATION TYPE: US venous doppler duplex UE RT DATE OF EXAM: 03/24/2023 COMPARISON: NONE CLINICAL INDICATION: Female, 57 years old with history of eval for dvt; No redness. No swelling. Pa in. Baby aspirin. SIDE PERFORMED: Right Right Arm: Negative for DVT IMPRESSION: Grayscale, color doppler, spectral doppler imaging performed of the deep veins of the upper extremiti es. There is normal flow, compressibility and vascular waveforms.
[2023-03-24] MEDS ORDERED: methylPREDNISolone SOD SUCCI 40 MG/ML 1 ML VIAL IV STA (13:50)
--- NOTE | 2023-03-24 13:52 | ED ---
General Adult HPI - General Chief complaint: Chest Pain Stated complaint: leg pain and swollen chest pains Time Seen by Provider: 03/24/23 10:45 Source: patient, RN notes reviewed, old records reviewed Mode of arrival: wheelchair Limitations: no limitations - History of Present Illness Initial comments: Patient is a 57-year-old female with past medical history remarkable for chronic pain, COPD, fibromyalgia, hypertension with family medical history of cardiac disease who presents emergency Department complaint of chest pain that she had yesterday but primarily complaining of right arm pain which He COVID-19 and influenza vaccinations 5 days ago as well as acute on chronic lower extremity pain. States her legs were swollen yesterday as well which is resolved. Primarily complaining of pain behind the bilateral knees. Has a history of significant Arthritis of the sites. Unknown of this visit or something else going on. No other acute complaint at this time. Denies shortness of breath. Denies nausea vomiting or abdominal pain. Denies any current chest pain has no other acute complaints. Presents for further evaluation at this time. - Related Data Home Medications Medication Instructions Recorded Confirmed Verapamil HCl [Calan] 120 mg PO DAILY 02/20/14 02/09/22 Butalb/APAP/Caff 50-325-40Mg 1 tab PO Q8H PRN 03/25/17 02/09/22 [Fioricet 50-325-40] Multivitamins, Thera [Multivitamin 1 tab PO DAILY 05/07/18 02/09/22 (formulary)] Pantoprazole Sodium [Protonix] 40 mg PO BID 10/31/18 02/09/22 Memantine [Namenda] 10 mg PO BID 11/22/18 02/09/22 Montelukast [Singulair] 10 mg PO DAILY 11/22/18 02/09/22 Fluticasone Nasal [place] [Flonase 2 spr EA NOSTRIL DAILY PRN 04/28/19 02/09/22 Nasal [place]] methocarbamoL [Robaxin-750] 750 mg PO TID PRN 04/28/19 02/09/22 Albuterol Sulfate [Ventolin HFA] 2 puff INHALATION RT-QID PRN 08/09/19 02/09/22 Docusate [Colace] 100 mg PO DAILY PRN 01/30/20 02/09/22 Zinc Gluconate [Zinc] 50 mg PO DAILY 01/30/20 02/09/22 Elderberry Fruit and Flower [Black 1 cap PO DAILY 06/14/20 02/09/22 Elderberry 575 mg Cap] Turmeric Root Extract [Turmeric] 500 mg PO DAILY 06/14/20 02/09/22 Gabapentin 800 mg PO TID 08/21/20 02/09/22 Topiramate [Topamax] 100 mg PO BID 08/21/20 02/09/22 oxyCODONE-APAP 7.5-325MG [Percocet 1 tab PO TID PRN 10/30/20 02/09/22 7.5-325 mg] Cholecalciferol [Vitamin D3 (25 50 mcg PO DAILY 06/15/21 02/09/22 Mcg = 1000 Iu)] Fluticasone/Umeclidin/Vilanter 1 puff INHALATION RT-DAILY 06/15/21 02/09/22 [Trelegy Ellipta 200-62.5-25] PARoxetine HCL [Paxil] 40 mg PO DAILY 06/15/21 02/09/22 busPIRone HCl [Buspar] 10 mg PO TID 06/15/21 02/09/22 guaiFENesin-DM 600/30MG [Mucinex 2 tab PO Q12HR PRN 06/15/21 02/09/22 Dm] Ipratropium-Albuterol Nebulize 3 ml INHALATION RT-QID PRN 08/13/21 02/09/22 [Duoneb 0.5 mg-3 mg/3 ml Soln] Aspirin EC [Ecotrin Low Dose] 81 mg PO DAILY 02/09/22 02/09/22 Budesonide [Pulmicort] 0.5 mg INHALATION RT-BID 02/09/22 02/09/22 Previous Rx's Medication Instructions Recorded rOPINIRole HCL [Requip] 0.25 mg PO TID #90 tab 01/31/18 hydroCHLOROthiazide [Hydrodiuril] 25 mg PO DAILY tab 11/26/18 Folic Acid 1 mg PO DAILY #30 tab 05/02/19 Sucralfate [Carafate] 1 gm PO ACHS #120 tab 04/03/21 Melatonin 10 mg PO HS tab 02/15/22 Nicotine 14Mg/24Hr Patch [Habitrol] 1 patch TRANSDERM DAILY #3 patch 02/15/22 Nystatin 100,000 Unit/ml Susp 500,000 unit PO QID 5 Days #30 ml 02/15/22 [Mycostatin Oral Susp] cefUROXime axetiL [Ceftin] 500 mg PO BID 10 Days #20 tab 02/15/22 predniSONE 10 mg PO DIRECTED #40 tab 02/15/22 Albuterol Inhaler [Ventolin Hfa 1 - 2 puff INHALATION Q6H PRN #1 03/11/22 Inhaler] dispenser Doxycycline [Vibramycin] 100 mg PO BID 7 Days #14 capsule 03/11/22 Lidocaine 5% Patch [Lidoderm 5% 1 patch TOPICAL DAILY PRN 7 Days 03/11/22 Patch] #7 patch predniSONE [Deltasone] 40 mg PO DAILY 5 Days #10 tab 03/11/22 Allergies Allergy/AdvReac Type Severity Reaction Status Date / Time baclofen AdvReac URINARY Verified 03/24/23 09:50 ISSUES dexamethasone [From Decadron] AdvReac "THOMPSON Verified 03/24/23 09:50 SKIN"/DEHYDRATION Review of Systems ROS Statement: Those systems with pertinent positive or pertinent negative responses have been documented in the HPI. Review of Systems: CONST: Denies fever EYES: Denies blurry vision ENT: Denies nasal congestion C/V: Denies Chest pain RESP: Denies shortness of breath GI: Denies abdominal pain : Denies dysuria SKIN: Denies rash. MSK: Endorses leg pain NEURO: Denies headache ROS Other: All systems not noted in ROS Statement are negative. Past Medical History Past Medical History: Asthma, Cancer, COPD, Eye Disorder, Fibromyalgia, GERD/Reflux, Hearing Disorder / Deafness, Hypertension, Memory Impairment, Musculoskeletal Disorder, Neurologic Disorder, Osteoarthritis (OA), Pneumonia, Sleep Apnea/CPAP/BIPAP, Syncope Additional Past Medical History / Comment(s): MS relapsing/remitting type, chronic bilateral eye pain/optic neuritis/ poor vision, cataracts bilaterally, chronic occipital neuralgia, osteoporosis, RLS, chronic hypoxic respiratory failure with home oxygen 2L/NC prn, chronic bronchitis, immunocompromised, elevated blood sugar with steroid use, uterine cancer with hysterectomy/radiation, heart murmur, mild cognitive impairment, chronic vertigo, falls, rheumatic fever as child, tinnitis bilaterally, allergic rhinitis, trigeminal neuralgia. History of Any Multi-Drug Resistant Organisms: None Reported Past Surgical History: Bladder Surgery, Heart Catheterization, Hysterectomy, Tubal Ligation Additional Past Surgical History / Comment(s): Nerve blocks, bladder suspension, fibroid removal. PAIN [facility] Past Anesthesia/Blood Transfusion Reactions: No Reported Reaction, Postoperative Nausea & Vomiting (PONV) Additional Past Anesthesia/Blood Transfusion Reaction / Comment(s): mild claustrophobia Past Psychological History: Anxiety, Depression Smoking Status: Current some day smoker Past Alcohol Use History: Occasional Past Drug Use History: None Reported - Past Family History Mother Family Medical History: CVA/TIA, Myocardial Infarction (GA) Additional Family Medical History / Comment(s): Mother is alive at age 75 with history of brain aneurysm, 3 strokes and 2 myocardial infarctions. Brain aneurysms run on mother's side of family Father Family Medical History: Coronary Artery Disease (CAD) Additional Family Medical History / Comment(s): Father at age 72 from a cardiac arrest thought to be due to a myocardial infarction. Sister(s) Family Medical History: No Reported History Additional Family Medical History / Comment(s): Patient has 2 sisters with no major medical problems. Patient does not have any brothers. Patient has 2 adult children with no major medical problems. Patient is only family member with MS. General Exam - General Exam Comments Initial Comments: General: Appears in no acute distress. HEAD: Normal with no signs of head trauma. EYES: PERRLA, EOMI, conjunctiva normal, no discharge. ENT: Hearing grossly intact, normal oropharynx. RESPIRATORY: Clear breath sounds bilaterally. No wheezes, rales, or rhonchi. C/V: Regular rate and rhythm. S1 and S2 auscultated, no significant lower extremity pitting edema, peripheral pulses 2+ and intact throughout ABD: Abd is soft, nontender, nondistended EXT: Normal range of motion, no obvious deformity. No obvious focal tenderness to palpation. SKIN: No rashes or lesions observed on exposed skin. NEURO: Alert and oriented x 4. Cranial nerves II-XII intact. No focal sensory or strength deficits. Limitations: no limitations Course Vital Signs 03/24/23 03/24/23 03/24/23 09:50 10:03 10:17 Temperature 98.3 F Pulse Rate 81 86 Pulse Rate [ Powerhouse Attendant ] Respiratory 16 16 20 Rate Blood Pressure 118/73 132/82 O2 Sat by Pulse 100 95 Oximetry 11/21/23 11/21/23 11/21/23 10:20 11:00 13:00 Temperature Pulse Rate 82 77 Pulse Rate [ 65 Powerhouse Attendant ] Respiratory 20 20 Rate Blood Pressure 140/80 130/85 O2 Sat by Pulse 98 94 L Oximetry 03/24/23 14:30 Temperature Pulse Rate 65 Pulse Rate [ Powerhouse Attendant ] Respiratory 20 Rate Blood Pressure 130/65 O2 Sat by Pulse 98 Oximetry Medical Decision Making - Medical Decision Making Was pt. sent in by a medical professional or institution (, ROSA, QUALITY DIRECTOR, urgent care, hospital, or halfway...) When possible be specific @ -No Did you speak to anyone other than the patient for history (EMS, parent, family, police, friend...)? What history was obtained from this source @ -No Did you review nursing and triage notes (agree or disagree)? Why? @ -I reviewed and agree with nursing and triage notes Were old charts reviewed (outside hosp., previous admission, EMS record, old EKG, old radiological studies, urgent care reports/EKG's, halfway records)? Report findings @ -Old charts reviewed Differential Diagnosis (chest pain, altered mental status, abdominal pain women, abdominal pain men, vaginal bleeding, weakness, fever, dyspnea, syncope, headache, dizziness, GI bleed, back pain, seizure, CVA, palpatations, mental health, musculoskeletal)? @ -Muscle strain, muscle sprain, DVT, viral syndrome, ACS, chronic pain. This list is not all inclusive. EKG interpreted by me (3pts min.). @ -As above X-rays interpreted by me (1pt min.). @ -Chest xRay reveals no obvious acute cardio pulmonary process. CT interpreted by me (1pt min.). @ -None done U/S interpreted by me (1pt. min.). @ -Negative duplex ultrasounds for obvious DVT of the right upper extremity as well as bilateral lower extremity is. What testing was considered but not performed or refused? (CT, X-rays, U/S, labs)? Why? @ -None What meds were considered but not given or refused? Why? @ -None Did you discuss the management of the patient with other professionals (professionals i.e. , ROSA, QUALITY DIRECTOR, lab, RT, psych nurse, social work program coordinator, environmental health aide, teacher, aoc plans intelligence officer chief, senior case manager)? Give summary @ -No Was smoking cessation discussed for >3mins.? @ -No Was critical care preformed (if so, how long)? @ -No Were there social determinants of health that impacted care today? How? (Homelessness, low income, unemployed, alcoholism, drug addiction, transportation, low edu. Level, literacy, decrease access to med. care, nursing home, rehab)? @ -No Was there de-escalation of care discussed even if they declined (Discuss DNR or withdrawal of care, Hospice)? DNR status @ -No What co-morbidities impacted this encounter? (DM, HTN, Smoking, COPD, CAD, Cancer, CVA, ARF, Chemo, Hep., AIDS, mental health diagnosis, sleep apnea, morbid obesity)? @ -None Was patient admitted / discharged? Hospital course, mention meds given and route, prescriptions, significant lab abnormalities, going to OR and other pertinent info. @ -Based on patient's presentation and physical exam, do believe she is likely presenting with acute on chronic pain however we will obtain duplexes rule out DVTs, as well as basic heart or pulmonary labs. She was in agreement this plan. Vital signs within acceptable limits. She'll be sent likely treatment with IV morphine. EKG unremarkable. Chest x-ray and duplexes unremarkable. No evidence of DVT. Laboratory studies are within except for limits. Covid negative. I discussed results with the patient. She exposed understanding. She is requesting a steroid injection for possible swelling as this has helped in the past which I believe is reasonable and she'll be given a IV doses a Medrol. She was otherwise in agreement this plan. She'll be discharged with this time. Strict return precautions discussed.Patient's heart score is low. I instructed the patient to follow up with their PCP in the next 1-3 days. I explained that the patient should return to the emergency department if they experience any worsening symptoms. Strict return precautions were discussed with the patient. The patient expressed understanding of these instructions. I answered all questions that the patient had. The patient was discharged home in good condition with their prescriptions and follow up information. Undiagnosed new problem with uncertain prognosis? @ -No Drug Therapy requiring intensive monitoring for toxicity (Heparin, Nitro, Insulin, Cardizem)? @ -No Were any procedures done? @ -No Diagnosis/symptom? @ -Chronic pain Acute, or Chronic, or Acute on Chronic? @ -Acute on chronic Uncomplicated (without systemic symptoms) or Complicated (systemic symptoms)? @ -Uncomplicated Side effects of treatment? @ -No Exacerbation, Progression, or Severe Exacerbation? @ -No Poses a threat to life or bodily function? How? (Chest pain, [place], [place], pneumonia, PE, COPD, DKA, ARF, appy, cholecystitis, CVA, Diverticulitis, Homicidal, Suicidal, threat to staff... and all critical care pts) @ -No - Lab Data Result diagrams: 03/24/23 10:57 03/24/23 10:57 Lab Results 03/24/23 03/24/23 03/24/23 Range/Units 10:57 10:57 10:57 WBC 11.4 H (3.8-10.6) k/uL RBC 4.40 (3.80-5.40) m/uL Hgb 13.8 (11.4-16.0) gm/dL Hct 44.1 (34.0-46.0) % MCV 100.1 H (80.0-100.0) fL MCH 31.4 (25.0-35.0) pg MCHC 31.4 (31.0-37.0) g/dL RDW 13.6 (11.5-15.5) % Plt Count 250 (150-450) k/uL MPV 9.4 Neutrophils % 60 % Lymphocytes % 29 % Monocytes % 5 % Eosinophils % 4 % Basophils % 0 % Neutrophils # 6.8 (1.3-7.7) k/uL Lymphocytes # 3.3 (1.0-4.8) k/uL Monocytes # 0.6 (0-1.0) k/uL Eosinophils # 0.4 (0-0.7) k/uL Basophils # 0.0 (0-0.2) k/uL Hypochromasia Slight PT 9.8 L (10.0-12.5) sec INR 0.9 (<1.2) APTT 24.4 (22.0-30.0) sec Sodium 140 (137-145) mmol/L Potassium 3.6 (3.5-5.1) mmol/L Chloride 99 (98-107) mmol/L Carbon Dioxide 32 H (22-30) mmol/L Anion Gap 9 mmol/L BUN 13 (7-17) mg/dL Creatinine 0.58 (0.52-1.04) mg/dL Est GFR (CKD-EPI)AfAm >90 (>60 ml/min/1.73 sqM) Est GFR (CKD-EPI)NonAf >90 (>60 ml/min/1.73 sqM) Glucose 110 H (74-99) mg/dL Calcium 9.2 (8.4-10.2) mg/dL Magnesium 1.7 (1.6-2.3) mg/dL Total Bilirubin 0.3 (0.2-1.3) mg/dL AST 24 (14-36) U/L ALT 24 (4-34) U/L Alkaline Phosphatase 117 (38-126) U/L Troponin I (0.000-0.034) ng/mL NT-Pro-B Natriuret Pep pg/mL Total Protein 6.0 L (6.3-8.2) g/dL Albumin 3.9 (3.5-5.0) g/dL SARS-CoV-2 (PCR) (Not Detectd) 03/24/23 03/24/23 03/24/23 Range/Units 10:57 11:18 14:00 WBC (3.8-10.6) k/uL RBC (3.80-5.40) m/uL Hgb (11.4-16.0) gm/dL Hct (34.0-46.0) % MCV (80.0-100.0) fL MCH (25.0-35.0) pg MCHC (31.0-37.0) g/dL RDW (11.5-15.5) % Plt Count (150-450) k/uL MPV Neutrophils % % Lymphocytes % % Monocytes % % Eosinophils % % Basophils % % Neutrophils # (1.3-7.7) k/uL Lymphocytes # (1.0-4.8) k/uL Monocytes # (0-1.0) k/uL Eosinophils # (0-0.7) k/uL Basophils # (0-0.2) k/uL Hypochromasia PT (10.0-12.5) sec INR (<1.2) APTT (22.0-30.0) sec Sodium (137-145) mmol/L Potassium (3.5-5.1) mmol/L Chloride (98-107) mmol/L Carbon Dioxide (22-30) mmol/L Anion Gap mmol/L BUN (7-17) mg/dL Creatinine (0.52-1.04) mg/dL Est GFR (CKD-EPI)AfAm (>60 ml/min/1.73 sqM) Est GFR (CKD-EPI)NonAf (>60 ml/min/1.73 sqM) Glucose (74-99) mg/dL Calcium (8.4-10.2) mg/dL Magnesium (1.6-2.3) mg/dL Total Bilirubin (0.2-1.3) mg/dL AST (14-36) U/L ALT (4-34) U/L Alkaline Phosphatase (38-126) U/L Troponin I <0.012 (0.000-0.034) ng/mL NT-Pro-B Natriuret Pep 107 pg/mL Total Protein (6.3-8.2) g/dL Albumin (3.5-5.0) g/dL SARS-CoV-2 (PCR) Not Detected (Not Detectd) - EKG Data -: EKG Interpreted by Me EKG Comments: 12-lead Electrocardiogram Interpretation Note EKG was reviewed and interpreted by myself. 12-lead ECG performed at 1006 is interpreted by me as revealing normal sinus rhythm at a rate of 84 beats per minute. [place] is normal. [place] interval is 155 ms, QRS duration is 81 ms, QTc is 414 ms.. There were no ST or T wave abnormalities to suggest myocardial ischemia or injury. R wave progression across the precordium was satisfactory. By my interpretation this EKG is non-diagnostic for acute ischemia. Disposition Clinical Impression: Chronic pain Disposition: HOME SELF-CARE Condition: Good Instructions (If sedation given, give patient instructions): Muscle Spasm (ED) Is patient prescribed a controlled substance at d/c from ED?: No Referrals: Kilo Tabares [Primary Care Provider] - 1-2 days Time of Disposition: 13:25
[2023-03-24 14:45] VITALS: BP 130/65; PULSE 65
== END 2023-03-24 14:31 | disposition home or self-care (01) ==
LOC: EC 09:48
DX: G89.29 Other chronic pain (principal); R22.43 Localized swelling, mass and lump, lower limb, bilateral; M25.562 Pain in left knee; M25.561 Pain in right knee; J44.89 Other specified chronic obstructive pulmonary disease; K21.9 Gastro-esophageal reflux disease without esophagitis; F41.9 Anxiety disorder, unspecified; F17.200 Nicotine dependence, unspecified, uncomplicated; F32.A Depression, unspecified; G47.30 Sleep apnea, unspecified; I10 Essential (primary) hypertension; Z20.822 Contact with and (suspected) exposure to COVID-19; Z79.899 Other long term (current) drug therapy; Z79.51 Long term (current) use of inhaled steroids; Z79.82 Long term (current) use of aspirin; Z88.8 Allergy status to other drugs, medicaments and biological substances
CPT/HCPCS: 96374 ×2; 96375 ×2; 99285 ×2; 36415; 93005; 83880; 80053; 83735; 84484; 85025; 85610; 85730; 87635; 71046; 93970; 93971; J2270; J2920

== ENCOUNTER → 2023-04-14 | Outpatient (CLI) | payer MEDICARE, OTHER | END | disposition home or self-care (01) | LOC: LABWHC1 12:12 | PROVIDERS: ATTEND Family Medicine | DX: E55.9 Vitamin D deficiency, unspecified (principal); R73.03 Prediabetes | CPT/HCPCS: 36415; 82306; 83036; 84443 ==

== ENCOUNTER → 2023-07-10 | Outpatient (CLI) | payer MEDICARE, OTHER ==
--- NOTE | 2023-07-10 11:43 | FL ---
ESOPHOGRAM. HISTORY: Dysphagia Esophagram was performed per the air contrast technique. The patient swallowed barium and effervesce nt crystals without difficulty or delay. Esophageal peristalsis and motility appear to be within normal limits. There is no evidence for filling defect, mass or diverticulum. No hiatal hernia seen. Subsequently single contrast cervical esophagram was performed which fails demonstrate evidence for a spiration penetration or mass. IMPRESSION: Unremarkable study.
== END | disposition home or self-care (01) ==
LOC: RADUSWWP 09:02
PROVIDERS: ATTEND Otolaryngology
DX: R13.14 Dysphagia, pharyngoesophageal phase (principal)
CPT/HCPCS: 74220

== ENCOUNTER 2023-10-17 13:54 | Inpatient (IN) | payer MEDICARE, OTHER ==
--- NOTE | 2023-10-17 15:08 | ED ---
General Adult HPI - General Chief complaint: Shortness of Breath Stated complaint: POLA Time Seen by Provider: 10/17/23 14:08 Source: patient, EMS, RN notes reviewed, old records reviewed Mode of arrival: EMS Limitations: no limitations - History of Present Illness Initial comments: 8-year-old female with past medical history of COPD, MS, fibromyalgia presenting for evaluation of dyspnea and fall. Patient states she fell out of bed 2 days prior with left-sided head injury. Patient has had headaches since that time. She also reports moderate dyspnea without fever, no central chest pain. She is on oxygen with a baseline oxygen requirement of 2 L. No fever. No abdominal pain. - Related Data Home Medications Medication Instructions Recorded Confirmed Verapamil HCl [Calan] 120 mg PO DAILY 02/20/14 02/09/22 Butalb/APAP/Caff 50-325-40Mg 1 tab PO Q8H PRN 03/25/17 02/09/22 [Fioricet 50-325-40] Multivitamins, Thera [Multivitamin 1 tab PO DAILY 05/07/18 02/09/22 (formulary)] Pantoprazole Sodium [Protonix] 40 mg PO BID 10/31/18 02/09/22 Memantine [Namenda] 10 mg PO BID 11/22/18 02/09/22 Montelukast [Singulair] 10 mg PO DAILY 11/22/18 02/09/22 Fluticasone Nasal [place] [Flonase 2 spr EA NOSTRIL DAILY PRN 04/28/19 02/09/22 Nasal [place]] methocarbamoL [Robaxin-750] 750 mg PO TID PRN 04/28/19 02/09/22 Albuterol Sulfate [Ventolin HFA] 2 puff INHALATION RT-QID PRN 08/09/19 02/09/22 Docusate [Colace] 100 mg PO DAILY PRN 01/30/20 02/09/22 Zinc Gluconate [Zinc] 50 mg PO DAILY 01/30/20 02/09/22 Elderberry Fruit and Flower [Black 1 cap PO DAILY 06/14/20 02/09/22 Elderberry 575 mg Cap] Turmeric Root Extract [Turmeric] 500 mg PO DAILY 06/14/20 02/09/22 Gabapentin 800 mg PO TID 08/21/20 02/09/22 Topiramate [Topamax] 100 mg PO BID 08/21/20 02/09/22 oxyCODONE-APAP 7.5-325MG [Percocet 1 tab PO TID PRN 10/30/20 02/09/22 7.5-325 mg] Cholecalciferol [Vitamin D3 (25 50 mcg PO DAILY 06/15/21 02/09/22 Mcg = 1000 Iu)] Fluticasone/Umeclidin/Vilanter 1 puff INHALATION RT-DAILY 06/15/21 02/09/22 [Trelegy Ellipta 200-62.5-25] PARoxetine HCL [Paxil] 40 mg PO DAILY 06/15/21 02/09/22 busPIRone HCl [Buspar] 10 mg PO TID 06/15/21 02/09/22 guaiFENesin-DM 600/30MG [Mucinex 2 tab PO Q12HR PRN 06/15/21 02/09/22 Dm] Ipratropium-Albuterol Nebulize 3 ml INHALATION RT-QID PRN 08/13/21 02/09/22 [Duoneb 0.5 mg-3 mg/3 ml Soln] Aspirin EC [Ecotrin Low Dose] 81 mg PO DAILY 02/09/22 02/09/22 Budesonide [Pulmicort] 0.5 mg INHALATION RT-BID 02/09/22 02/09/22 Previous Rx's Medication Instructions Recorded rOPINIRole HCL [Requip] 0.25 mg PO TID #90 tab 01/31/18 hydroCHLOROthiazide [Hydrodiuril] 25 mg PO DAILY tab 11/26/18 Folic Acid 1 mg PO DAILY #30 tab 05/02/19 Sucralfate [Carafate] 1 gm PO ACHS #120 tab 04/03/21 Melatonin 10 mg PO HS tab 02/15/22 Nicotine 14Mg/24Hr Patch [Habitrol] 1 patch TRANSDERM DAILY #3 patch 02/15/22 Nystatin 100,000 Unit/ml Susp 500,000 unit PO QID 5 Days #30 ml 02/15/22 [Mycostatin Oral Susp] cefUROXime axetiL [Ceftin] 500 mg PO BID 10 Days #20 tab 02/15/22 predniSONE 10 mg PO DIRECTED #40 tab 10/15/22 Albuterol Inhaler [Ventolin Hfa 1 - 2 puff INHALATION Q6H PRN #1 03/11/22 Inhaler] dispenser Doxycycline [Vibramycin] 100 mg PO BID 7 Days #14 capsule 03/11/22 Lidocaine 5% Patch [Lidoderm 5% 1 patch TOPICAL DAILY PRN 7 Days 03/11/22 Patch] #7 patch predniSONE [Deltasone] 40 mg PO DAILY 5 Days #10 tab 03/11/22 Allergies Allergy/AdvReac Type Severity Reaction Status Date / Time baclofen AdvReac URINARY Verified 10/17/23 14:04 ISSUES dexamethasone [From Decadron] AdvReac "THOMPSON Verified 10/17/23 14:04 SKIN"/DEHYDRATION Review of Systems ROS Statement: Those systems with pertinent positive or pertinent negative responses have been documented in the HPI. ROS Other: All systems not noted in ROS Statement are negative. Past Medical History Past Medical History: Asthma, Cancer, COPD, Eye Disorder, Fibromyalgia, GERD/Reflux, Hearing Disorder / Deafness, Hypertension, Memory Impairment, Musculoskeletal Disorder, Neurologic Disorder, Osteoarthritis (OA), Pneumonia, Sleep Apnea/CPAP/BIPAP, Syncope Additional Past Medical History / Comment(s): MS relapsing/remitting type, chronic bilateral eye pain/optic neuritis/ poor vision, cataracts bilaterally, chronic occipital neuralgia, osteoporosis, RLS, chronic hypoxic respiratory failure with home oxygen 2L/NC prn, chronic bronchitis, immunocompromised, elevated blood sugar with steroid use, uterine cancer with hysterectomy/radiation, heart murmur, mild cognitive impairment, chronic vertigo, falls, rheumatic fever as child, tinnitis bilaterally, allergic rhinitis, trigeminal neuralgia. History of Any Multi-Drug Resistant Organisms: None Reported Past Surgical History: Bladder Surgery, Heart Catheterization, Hysterectomy, Tubal Ligation Additional Past Surgical History / Comment(s): Nerve blocks, bladder suspension, fibroid removal. PA[facility] Past Anesthesia/Blood Transfusion Reactions: No Reported Reaction, Postoperative Nausea & Vomiting (PONV) Additional Past Anesthesia/Blood Transfusion Reaction / Comment(s): mild claustrophobia Past Psychological History: Anxiety, Depression Smoking Status: Current some day smoker Past Alcohol Use History: Occasional Past Drug Use History: None Reported - Past Family History Mother Family Medical History: CVA/TIA, Myocardial Infarction ([place]) Additional Family Medical History / Comment(s): Mother is alive at age 75 with history of brain aneurysm, 3 strokes and 2 myocardial infarctions. Brain aneurysms run on mother's side of family Father Family Medical History: Coronary Artery Disease (CAD) Additional Family Medical History / Comment(s): Father at age 72 from a cardiac arrest thought to be due to a myocardial infarction. Sister(s) Family Medical History: No Reported History Additional Family Medical History / Comment(s): Patient has 2 sisters with no major medical problems. Patient does not have any brothers. Patient has 2 adult children with no major medical problems. Patient is only family member with MS. General Exam General appearance: alert, in no apparent distress Head exam: Present: atraumatic, normocephalic Eye exam: Present: normal appearance, PERRL ENT exam: Present: normal exam Neck exam: Present: normal inspection. Absent: tenderness, meningismus Respiratory exam: Present: normal lung sounds bilaterally. Absent: respiratory distress, wheezes Cardiovascular Exam: Present: regular rate, normal rhythm GI/Abdominal exam: Present: soft. Absent: distended, tenderness Extremities exam: Present: normal inspection Neurological exam: Present: alert, oriented X3, CN II-XII intact. Absent: motor sensory deficit Psychiatric exam: Present: normal affect, normal mood Skin exam: Present: warm, dry, intact Course Vital Signs 10/17/23 10/17/23 10/17/23 14:00 15:50 16:38 Temperature 97.9 F Pulse Rate 96 86 87 Respiratory 18 18 18 Rate Blood Pressure 116/76 99/68 107/70 O2 Sat by Pulse 96 97 94 L Oximetry 10/17/23 10/17/23 16:45 17:02 Temperature Pulse Rate 81 88 Respiratory 18 18 Rate Blood Pressure O2 Sat by Pulse Oximetry Medical Decision Making - Medical Decision Making Was pt. sent in by a medical professional or institution (, PA, CHIP CRUSHER OPERATOR, urgent care, hospital, or shelter...) When possible be specific @ -No Did you speak to anyone other than the patient for history (EMS, parent, family, police, friend...)? What history was obtained from this source @ -No Did you review nursing and triage notes (agree or disagree)? Why? @ -I reviewed and agree with nursing and triage notes Were old charts reviewed (outside hosp., previous admission, EMS record, old EKG, old radiological studies, urgent care reports/EKG's, shelter records)? Report findings @ -No old charts were reviewed Differential Diagnosis differential Dyspnea: Coronary syndrome, arrhythmia, tamponade, asthma, COPD, pulmonary embolism, pneumonia, pneumothorax, pulmonary effusion, anaphylaxis, diabetic ketoacidosis, flailed chest, pulmonary contusion, diaphragmatic rupture, anemia, neuromuscular, this is not meant to be an all-inclusive list. EKG interpreted by me (3pts min.). @ -Sinus rhythm rate of 90 ND interval 155, QRS duration 85, QTc [address] segment elevation X-rays interpreted by me (1pt min.). @ -Single view chest x-ray showing cardiomegaly and pulmonary venous congestion. CT interpreted by me (1pt min.). @CT brain negative for intracranial hemorrhage or mass effect U/S interpreted by me (1pt. min.). @ US of the gallbladder negative for acute process What testing was considered but not performed or refused? (CT, X-rays, U/S, labs)? Why? @ -None What meds were considered but not given or refused? Why? @ -None Did you discuss the management of the patient with other professionals (professionals i.e. , PA, CHIP CRUSHER OPERATOR, lab, RT, psych nurse, clinical social work aide, pool manager, teacher, intelligence officer basic, community case manager)? Give summary @ -No Was smoking cessation discussed for >3mins.? @ -No Was critical care preformed (if so, how long)? @ -No Were there social determinants of health that impacted care today? How? (Homelessness, low income, unemployed, alcoholism, drug addiction, transportation, low edu. Level, literacy, decrease access to med. care, mcc, rehab)? @ -No Was there de-escalation of care discussed even if they declined (Discuss DNR or withdrawal of care, Hospice)? DNR status @ -No What co-morbidities impacted this encounter? (DM, HTN, Smoking, COPD, CAD, Cancer, CVA, ARF, Chemo, Hep., AIDS, mental health diagnosis, sleep apnea, morbid obesity)? @ -[COPD, obesity, MS Was patient admitted / discharged? Hospital course, mention meds given and route, prescriptions, significant lab abnormalities, going to OR and other pertinent info. @58-year-old female presenting with multiple complaints, increased dyspnea, fall, abdominal pain. Patient has a leukocytosis at 15 which does appear chron ic. Chest x-ray is concerning for cardiomegaly and possible CHF. She has an elevated BNP. Negative troponin. She has electrolyte abnormalities which are replaced in the emergency department. I did obtain a head CT for the fall which was negative for traumatic injury. Patient will be observed for treatment of COPD, echo ordered for evaluation of cardiac function. Both pulmonology and cardiology placed on consult. Case discussed with Dr. Gregg who will admit. Undiagnosed new problem with uncertain prognosis? @ -No Drug Therapy requiring intensive monitoring for toxicity (Heparin, Nitro, Insulin, Cardizem)? @ -No Were any procedures done? @ -No Diagnosis/symptom? @COPD, CHF Acute, or Chronic, or Acute on Chronic? @ -acute Uncomplicated (without systemic symptoms) or Complicated (systemic symptoms)? @ -complicated Side effects of treatment? @ -No Exacerbation, Progression, or Severe Exacerbation? @ -No Poses a threat to life or bodily function? How? (Chest pain, [place], [place], pneumonia, PE, COPD, DKA, ARF, appy, cholecystitis, CVA, Diverticulitis, Homicidal, Suicidal, threat to staff... and all critical care pts) @ -[yes, respiratory failure - Lab Data Result diagrams: 10/17/23 15:22 10/17/23 15:22 Lab Results 10/17/23 10/17/23 10/17/23 Range/Units 15:22 15:22 15:22 WBC 15.7 H (3.8-10.6) k/uL RBC 4.87 (3.80-5.40) m/uL Hgb 14.9 (11.4-16.0) gm/dL Hct 47.9 H (34.0-46.0) % MCV 98.4 (80.0-100.0) fL MCH 30.6 (25.0-35.0) pg MCHC 31.1 (31.0-37.0) g/dL RDW 13.8 (11.5-15.5) % Plt Count 276 (150-450) k/uL MPV 11.1 Neutrophils % 71 % Lymphocytes % 19 % Monocytes % 8 % Eosinophils % 1 % Basophils % 1 % Neutrophils # 11.2 H (1.3-7.7) k/uL Lymphocytes # 3.0 (1.0-4.8) k/uL Monocytes # 1.2 H (0-1.0) k/uL Eosinophils # 0.1 (0-0.7) k/uL Basophils # 0.1 (0-0.2) k/uL Hypochromasia Moderate PT 12.1 (10.0-12.5) sec INR 1.1 (<1.2) APTT 23.3 (22.0-30.0) sec Sodium 139 (137-145) mmol/L Potassium 3.1 L (3.5-5.1) mmol/L Chloride 96 L (98-107) mmol/L Carbon Dioxide 38 H (22-30) mmol/L Anion Gap 5 mmol/L BUN 11 (7-17) mg/dL Creatinine 0.48 L (0.52-1.04) mg/dL Est GFR (CKD-EPI)AfAm >90 (>60 ml/min/1.73 sqM) Est GFR (CKD-EPI)NonAf >90 (>60 ml/min/1.73 sqM) Glucose 114 H (74-99) mg/dL Plasma Lactic Acid Adalid (0.7-2.0) mmol/L Calcium 8.3 L (8.4-10.2) mg/dL Magnesium 1.5 L (1.6-2.3) mg/dL Total Bilirubin 0.6 (0.2-1.3) mg/dL AST 22 (14-36) U/L ALT 20 (4-34) U/L Alkaline Phosphatase 74 (38-126) U/L Troponin I (0.000-0.034) ng/mL NT-Pro-B Natriuret Pep 3120 pg/mL Total Protein 5.7 L (6.3-8.2) g/dL Albumin 3.8 (3.5-5.0) g/dL 10/17/23 10/17/23 Range/Units 15:22 15:22 WBC (3.8-10.6) k/uL RBC (3.80-5.40) m/uL Hgb (11.4-16.0) gm/dL Hct (34.0-46.0) % MCV (80.0-100.0) fL MCH (25.0-35.0) pg MCHC (31.0-37.0) g/dL RDW (11.5-15.5) % Plt Count (150-450) k/uL MPV Neutrophils % % Lymphocytes % % Monocytes % % Eosinophils % % Basophils % % Neutrophils # (1.3-7.7) k/uL Lymphocytes # (1.0-4.8) k/uL Monocytes # (0-1.0) k/uL Eosinophils # (0-0.7) k/uL Basophils # (0-0.2) k/uL Hypochromasia PT (10.0-12.5) sec INR (<1.2) APTT (22.0-30.0) sec Sodium (137-145) mmol/L Potassium (3.5-5.1) mmol/L Chloride (98-107) mmol/L Carbon Dioxide (22-30) mmol/L Anion Gap mmol/L BUN (7-17) mg/dL Creatinine (0.52-1.04) mg/dL Est GFR (CKD-EPI)AfAm (>60 ml/min/1.73 sqM) Est GFR (CKD-EPI)NonAf (>60 ml/min/1.73 sqM) Glucose (74-99) mg/dL Plasma Lactic Acid Adalid 1.1 (0.7-2.0) mmol/L Calcium (8.4-10.2) mg/dL Magnesium (1.6-2.3) mg/dL Total Bilirubin (0.2-1.3) mg/dL AST (14-36) U/L ALT (4-34) U/L Alkaline Phosphatase (38-126) U/L Troponin I 0.013 (0.000-0.034) ng/mL NT-Pro-B Natriuret Pep pg/mL Total Protein (6.3-8.2) g/dL Albumin (3.5-5.0) g/dL Disposition Clinical Impression: CHF (congestive heart failure), COPD exacerbation Disposition: ADMITTED IP TO THIS HOSP Condition: Stable Is patient prescribed a controlled substance at d/c from ED?: No Referrals: Kilo Tabares [Primary Care Provider] - 1-2 days Time of Disposition: 18:11
[2023-10-17 15:38] LABS: INR 1.1 (<1.2); Partial Thromboplastin Time 23.3 sec (22.0-30.0); Prothrombin Time 12.1 sec (10.0-12.5)
--- NOTE | 2023-10-17 15:38 | XR ---
EXAMINATION TYPE: XR chest 1V portable DATE OF EXAM: 10/17/2023 COMPARISON: NONE HISTORY: Difficulty in breathing TECHNIQUE: Single frontal view of the chest is obtained. FINDINGS: Heart is enlarged and there is an interstitial pattern with arthropathy of the shoulders.. The cardiac silhouette size is within normal limits. The osseous structures are intact. IMPRESSION: 1. Correlate for mild venous congestion or interstitial pneumonitis. 2. Stable cardiomegaly.
[2023-10-17 15:41] LABS: ALT 20 U/L (4-34); AST 22 U/L (14-36); African American GFR (CKD) >90 (>60 ml/min/1.73 sqM); Albumin 3.8 g/dL (3.5-5.0); Alkaline Phosphatase 74 U/L (38-126); Anion Gap 5 mmol/L; Basophils # (A) 0.1 k/uL (0-0.2); Basophils % (A) 1 %; Blood Urea Nitrogen 11 mg/dL (7-17); Calcium 8.3 mg/dL (8.4-10.2); Carbon Dioxide 38 mmol/L (22-30); Chloride 96 mmol/L (98-107); Eosinophils # (A) 0.1 k/uL (0-0.7); Eosinophils % (A) 1 %; Glucose 114 mg/dL (74-99); HCT 47.9 % (34.0-46.0); HGB 14.9 gm/dL (11.4-16.0); Hypochromasia Moderate; Lymphocytes % (A) 19 %; MCH 30.6 pg (25.0-35.0); MCHC 31.1 g/dL (31.0-37.0); MCV 98.4 fL (80.0-100.0); Magnesium 1.5 mg/dL (1.6-2.3); Mean Platelet Volume 11.1; Monocytes # (A) 1.2 k/uL (0-1.0); Monocytes % (A) 8 %; Neutrophils # (A) 11.2 k/uL (1.3-7.7); Neutrophils % (A) 71 %; Non-African American GFR(CKD) >90 (>60 ml/min/1.73 sqM); Platelet Count 276 k/uL (150-450); Potassium 3.1 mmol/L (3.5-5.1); RBC 4.87 m/uL (3.80-5.40); RDW 13.8 % (11.5-15.5); Sodium 139 mmol/L (137-145); Total Bilirubin 0.6 mg/dL (0.2-1.3); Total Protein 5.7 g/dL (6.3-8.2); WBC 15.7 k/uL (3.8-10.6)
[2023-10-17] MEDS: HYDROmorphone 0.5 MG/0.5 ML SYRINGE IVP STA (15:45)
[2023-10-17] MEDS: methylPREDNISolone SOD SUCCI 125 MG/2 ML VIAL IV STA (15:47)
[2023-10-17] MEDS: SODIUM CHLORIDE 0.9% 500 ML 500 ML IV ONE (15:48)
[2023-10-17 15:49] LABS: NT-Pro-B-Type Natriuretic Pept 3120 pg/mL
--- NOTE | 2023-10-17 16:24 | CT ---
EXAMINATION TYPE: CT brain wo con CT DLP: 1095.4 mGycm, Automated exposure control for dose reduction was used. DATE OF EXAM: 10/17/2023 4:05 PM COMPARISON: 06/15/2021. CLINICAL INDICATION:Female, 58 years old with history of fall, Fall, hit head, no LOC. TECHNIQUE: Brain: Axial CT images of the brain were obtained with coronal and sagittal reformats created and rev iewed. Contrast used: None. Oral contrast used: None. FINDINGS: Brain: Extra-axial spaces: No abnormal extra-axial fluid collections. Ventricular system: Within normal limits Cerebral parenchyma: No acute intraparenchymal hemorrhage or mass effect. The rosario-white junction is well differentiated. Cerebellum: Unremarkable. Mass effect: No evidence of midline shift. Intracranial vasculature: unremarkable Soft tissues: Normal. Calvarium/osseous structures: No depressed skull fracture. Paranasal sinuses and mastoid air cells: Mild scattered paranasal sinus disease. Visualized orbits: Orbital contents are intact. IMPRESSION: No acute intracranial process.
[2023-10-17] MEDS: IPRATROPIUM 0.5 MG/2.5 ML NEBU INHALATION STA (16:45)
[2023-10-17] MEDS: ALBUTEROL NEBULIZED 2.5 MG/3 ML INHALATION STA (16:46)
[2023-10-17] MEDS: MAGNESIUM SULFATE-D5W PMX 1 GM in DEXTROSE/WATER 1 100ML.BAG IVPB SCH (16:47)
--- NOTE | 2023-10-17 18:01 | US ---
EXAMINATION TYPE: US gallbladder DATE OF EXAM: 10/17/2023 COMPARISON: CT 03/30/2021, US Liver 02/02/2020 CLINICAL INDICATION: Female, 58 years old with history of ruq pain; Pain x a couple days. TECHNIQUE: Multiple sonographic images of the right upper quadrant are obtained. FINDINGS: EXAM MEASUREMENTS: Liver Length: 20.9 cm Gallbladder Wall: 0.21 cm CBD: 0.72 cm Right Kidney: 12.1 x 5.2 x 4.0 cm ESCROW REPRESENTATIVE NOTES: Exam is limited due to gas and patient body habitus. Pancreas: Limited, tail was not visualized. Liver: *Enlarged and heterogeneous. Increased attenuation. *Anechoic area seen in the left lobe: 1.9 x 1.5 x 1.7 cm. Gallbladder: Appears enlarged measuring 10.9 cm in length. Anechoic. Evidence for sonographic Griffith's sign: No CBD: Slightly dilated. Right Kidney: No hydronephrosis or masses seen IMPRESSION: 1. No evidence for acute process. 2. Hepatic steatosis. 3. Hepatomegaly. 4. Simple appearing hepatic cyst.
[2023-10-17] MEDS ORDERED: ACETAMINOPHEN TAB 325 MG TAB PO PRN (18:05)
[2023-10-17] MEDS ORDERED: NALOXONE 0.4 MG/ML 1 ML VIAL IVP PRN (18:05)
[2023-10-17] MEDS: POTASSIUM CHLORIDE 10 MEQ in WATER FOR INJECTION 1 100ML.BAG IVPB SCH (18:07)
[2023-10-17] MEDS: IPRATROPIUM-ALBUTEROL 3 ML NEB INHALATION SCH (20:29)
[2023-10-17] MEDS: AZITHROMYCIN 500 MG in SODIUM CHLORIDE 0.9% 250 ML IVPB STA (21:01)
[2023-10-17] MEDS: cefTRIAXone IN SWFI 1,000 MG/10 ML SYRINGE IVP STA (21:02)
[2023-10-17] MEDS: NICOTINE 14MG/24HR PATCH TRANSDERM STA (23:33)
[2023-10-17] MEDS: MELATONIN 5 MG TABLET PO STA (23:34)
[2023-10-18] MEDS ORDERED: DOCUSATE 100 MG CAP PO PRN (00:34)
[2023-10-18] MEDS: methylPREDNISolone SOD SUCCI 125 MG/2 ML VIAL IV SCH (00:48)
[2023-10-18] MEDS: GABAPENTIN 400 MG CAP PO SCH (00:49)
[2023-10-18] MEDS: POTASSIUM CHLORIDE ER 20 MEQ TAB.ER PO STA ×2 (00:50→09:55)
[2023-10-18] MEDS: oxyCODONE-APAP 7.5-325MG 1 EACH TAB PO PRN (00:51)
[2023-10-18] MEDS: busPIRone HCl 10 MG TAB PO SCH (00:52)
[2023-10-18] MEDS: MAGNESIUM SULFATE-D5W PMX 1 GM in DEXTROSE/WATER 1 100ML.BAG IVPB ONE (00:55)
[2023-10-18] MEDS: BUDESONIDE 0.5 MG/2 ML NEBU INHALATION SCH (01:27)
[2023-10-18] MEDS: IPRATROPIUM-ALBUTEROL 3 ML NEB INHALATION PRN (01:27)
[2023-10-18 03:39] LABS: Basophils % (A) 0 %; Eosinophils % (A) 0 %; HCT 48.3 % (34.0-46.0); HGB 14.3 gm/dL (11.4-16.0); Hypochromasia Moderate; Lymphocytes # (A) 0.7 k/uL (1.0-4.8); Lymphocytes % (A) 6 %; MCH 29.7 pg (25.0-35.0); MCHC 29.6 g/dL (31.0-37.0); MCV 100.4 fL (80.0-100.0); Mean Platelet Volume 8.8; Monocytes # (A) 0.2 k/uL (0-1.0); Monocytes % (A) 2 %; Neutrophils # (A) 9.9 k/uL (1.3-7.7); Neutrophils % (A) 91 %; Platelet Count 202 k/uL (150-450); RBC 4.81 m/uL (3.80-5.40); RDW 13.7 % (11.5-15.5); WBC 10.8 k/uL (3.8-10.6)
[2023-10-18 03:59] LABS: African American GFR (CKD) >90 (>60 ml/min/1.73 sqM); Anion Gap 5 mmol/L; Blood Urea Nitrogen 12 mg/dL (7-17); Calcium 8.2 mg/dL (8.4-10.2); Carbon Dioxide 37 mmol/L (22-30); Chloride 97 mmol/L (98-107); Glucose 236 mg/dL (74-99); Non-African American GFR(CKD) >90 (>60 ml/min/1.73 sqM); Potassium 3.4 mmol/L (3.5-5.1); Sodium 139 mmol/L (137-145)
[2023-10-18] MEDS: SYMBICORT 160-4.5 MCG INHALER INHALATION SCH (08:04)
[2023-10-18] MEDS: TOPIRAMATE 100 MG TAB PO SCH (09:54)
[2023-10-18] MEDS: PARoxetine 20 MG TAB PO SCH (09:55)
[2023-10-18] MEDS: PANTOPRAZOLE 40 MG TABLET PO SCH (09:56)
[2023-10-18] MEDS: VERAPAMIL SR 120 MG TABLET.ER PO SCH (09:56)
[2023-10-18] MEDS: MEMANTINE 10 MG TAB PO SCH (09:56)
[2023-10-18] MEDS: ENOXAPARIN 40 MG/0.4 ML SYRINGE SQ SCH (09:56)
[2023-10-18] MEDS: ASPIRIN 81 MG PO SCH (09:56)
--- NOTE | 2023-10-18 12:56 | P.CNPUL ---
History of Present Illness Consult date: 10/18/23 Reason for consult: dyspnea History of present illness: This is a 58-year-old female patient was seen emergency department for shortness of breath. The patient is known to have COPD/asthma, and ex-smoker without Trelegy Ellipta on outpatient basis. She also suffers from multiple sclerosis and she has relapsing remitting disease maintained on Ocrevus on outpatient basis. The patient has optic neuritis, chronic motor difficulties in lower e xtremities and bladder spasms related to MS and the patient has undergone recent bladder injection with Botox. She has normal to although she does not use them irregular basis. She has also obstructive sleep apnea. She has been utilizing his CPAP on outpatient basis. She comes to the hospital because of increased dyspnea, cough and congestion and wheeze. Limited edema lower extremities bilaterally. The white circles of 10.8 edema 14 and a platelet count of 202. BUN is at 12 with a creatinine of 0.4 and sodium levels of 139 and a procalcitonin level is at 0.17. proBNP level is 3120. Chest x-ray is more consistent with CHF with increased interstitial markings bilaterally. CAT scan of the brain was also done in the emergency department that showed no acute intracranial process. The EKG is showing normal sinus rhythm with a low voltage no acute ischemic changes. Ultrasound of the abdomen the gallbladder was also done that showed no evidence of any acute process. Noted the patient's LFTs are essentially within normal limits. She is currently on oxygen 2 L with a pulse ox of 95%. Review of Systems Constitutional: Reports fatigue, Reports weight gain Eyes: bilateral blurred vision, bilateral decreased vision, denies as per HPI, denies bulging eye, denies diplopia, denies discharge, denies dry eye, denies ir ritation, denies itching, denies pain, denies photophobia, denies loss of peripheral vision, denies loss of vision, denies tunnel vision/blind spots Ears: deny: decreased hearing, ear discharge, earache, tinnitus Breasts: absent: as per HPI, change in shape, gynecomastia, masses, nipple discharge, pain, skin changes, swelling Cardiovascular: Reports decreased exercise tolerance, Reports dyspnea on exertion Respiratory: Reports cough, Reports dyspnea, Reports sleep apnea, Reports wheezing Gastrointestinal: Reports as per HPI Genitourinary: Reports urge incontinence, Reports urinary frequency Menstruation: Reports as per HPI Musculoskeletal: Reports arm numbness/tingling, Reports leg numbness/tingling, Reports limitation of motion Musculoskeletal: absent: ankle pain, ankle stiffness, ankle swelling, as per HPI, elbow pain, elbow stiffness, elbow swelling, foot pain, foot stiffness, foot swelling, hand pain, hand stiffness, hand swelling, hip pain, hip stiffness, hip swelling, knee pain, knee stiffness, knee swelling, shoulder pain, shoulder stiffness, shoulder swelling, wrist pain, wrist stiffness, wrist swelling Integumentary: Reports as per HPI Neurological: Reports as per HPI, Reports balance difficulties, Reports paresthesias, Reports weakness Psychiatric: Reports as per HPI Endocrine: Reports as per HPI Hematologic/Lymphatic: Reports as per HPI Allergic/Immunologic: Reports as per HPI Past Medical History Past Medical History: Asthma, Cancer, COPD, Eye Disorder, Fibromyalgia, GERD/Reflux, Hearing Disorder / Deafness, Hypertension, Memory Impairment, Musculoskeletal Disorder, Neurologic Disorder, Osteoarthritis (OA), Pneumonia, Sleep Apnea/CPAP/BIPAP, Syncope Additional Past Medical History / Comment(s): MS relapsing/remitting type, chronic bilateral eye pain/optic neuritis/ poor vision on Ocrevus, cataracts bilaterally, chronic occipital neuralgia, osteoporosis, RLS, chronic hypoxic respiratory failure with home oxygen 2L/[place] prn, chronic bronchitis, ENMANUEL, elevated blood sugar with steroid use, uterine cancer with hysterect mick/radiation, heart murmur, mild cognitive impairment, chronic vertigo, falls, rheumatic fever as child, tinnitis bilaterally, allergic rhinitis, trigeminal neuralgia. History of Any Multi-Drug Resistant Organisms: None Reported Past Surgical History: Bladder Surgery, Heart Catheterization, Hysterectomy, Tubal Ligation Additional Past Surgical History / Comment(s): Nerve blocks, bladder suspension, fibroid removal. PAIN CLINIC Past Anesthesia/Blood Transfusion Reactions: No Reported Reaction, Postoperative Nausea & Vomiting (PONV) Additional Past Anesthesia/Blood Transfusion Reaction / Comment(s): mild claustrophobia Past Psychological History: Anxiety, Depression Smoking Status: Current some day smoker Past Alcohol Use History: Occasional Past Drug Use History: None Reported - Past Family History Mother Family Medical History: CVA/TIA, Myocardial Infarction ([place]) Additional Family Medical History / Comment(s): Mother is alive at age 75 with history of brain aneurysm, 3 strokes and 2 myocardial infarctions. Brain aneurysms run on mother's side of family Father Family Medical History: Coronary Artery Disease (CAD) Additional Family Medical History / Comment(s): Father at age 72 from a cardiac arrest thought to be due to a myocardial infarction. Sister(s) Family Medical History: No Reported History Additional Family Medical History / Comment(s): Patient has 2 sisters with no major medical problems. Patient does not have any brothers. Patient has 2 adul t children with no major medical problems. Patient is only family member with MS. Medications and Allergies Home Medications Medication Instructions Recorded Confirmed Type Verapamil HCl [Calan] 120 mg PO DAILY 02/20/14 10/17/23 History Butalb/APAP/Caff 50-325-40Mg 1 tab PO BID PRN 03/25/17 10/17/23 History [Fioricet 50-325-40] rOPINIRole HCL [Requip] 0.25 mg PO TID #90 tab 01/31/18 10/17/23 Rx Pantoprazole Sodium [Protonix] 40 mg PO BID 10/31/18 10/17/23 History Memantine [Namenda] 10 mg PO BID 11/22/18 10/17/23 History hydroCHLOROthiazide [Hydrodiuril] 25 mg PO DAILY tab 11/26/18 10/17/23 Rx methocarbamoL [Robaxin-750] 750 mg PO Q8H 04/28/19 10/17/23 History Folic Acid 1 mg PO DAILY #30 tab 05/02/19 10/17/23 Rx Albuterol Sulfate [Ventolin HFA] 2 puff INHALATION RT-QID PRN 08/09/19 10/17/23 History Docusate [Colace] 100 mg PO DAILY PRN 01/30/20 10/17/23 History Gabapentin 800 mg PO TID 08/21/20 10/17/23 History Topiramate [Topamax] 100 mg PO BID 08/21/20 10/17/23 History oxyCODONE-APAP 7.5-325MG [Percocet 1 tab PO Q6H PRN 10/30/20 10/17/23 History 7.5-325 mg] Cholecalciferol [Vitamin D3 (25 50 mcg PO DAILY 06/15/21 10/17/23 History Mcg = 1000 Iu)] Fluticasone/Umeclidin/Vilanter 1 puff INHALATION RT-DAILY 06/15/21 10/17/23 History [Trelegy Ellipta 200-62.5-25] PARoxetine HCL [Paxil] 40 mg PO DAILY 06/15/21 10/17/23 History busPIRone HCl [Buspar] 10 mg PO TID 06/15/21 10/17/23 History Ipratropium-Albuterol Nebulize 3 ml INHALATION DIRECTED PRN 08/13/21 10/17/23 History [Duoneb 0.5 mg-3 mg/3 ml Soln] Aspirin EC [Ecotrin Low Dose] 81 mg PO DAILY 02/09/22 10/17/23 History Budesonide [Pulmicort] 0.5 mg INHALATION DIRECTED 02/09/22 10/17/23 History Cetirizine HCl [Zyrtec] 10 mg PO DAILY 10/17/23 10/17/23 History LORazepam [Ativan] 1 mg PO TID 10/17/23 10/17/23 History Promethazine/Dextromethorphan 5 ml PO Q6H PRN 10/17/23 10/17/23 History [Promethazine-Dm Syrup] Sucralfate [Carafate] 1 gm PO AC-TID 10/17/23 10/17/23 History Allergies Allergy/AdvReac Type Severity Reaction Status Date / Time baclofen AdvReac URINARY Verified 10/17/23 19:38 ISSUES dexamethasone [From Decadron] AdvReac "THOMPSON Verified 10/17/23 19:38 SKIN"/DEHYDRATION Physical Exam Vitals: Vital Signs Temp Pulse Pulse Resp BP BP Pulse Ox 10/18/23 08:35 98.7 F 89 16 120/77 94 L 10/18/23 08:20 87 18 10/18/23 08:07 87 18 98 10/18/23 06:00 81 18 109/70 95 10/18/23 05:00 69 12 100/68 94 L 10/18/23 04:00 75 15 105/62 95 10/18/23 03:00 81 20 102/59 92 L 10/18/23 02:41 80 15 102/59 95 10/18/23 01:38 89 10/18/23 01:28 87 10/18/23 01:12 19 109/64 97 10/17/23 20:42 85 10/17/23 20:29 87 10/17/23 19:59 81 18 107/72 95 10/17/23 17:02 88 18 10/17/23 16:45 81 18 10/17/23 16:38 87 18 107/70 94 L 10/17/23 15:50 86 18 99/68 97 10/17/23 14:00 97.9 F 96 18 116/76 96 GENERAL EXAM: Alert, animated -Russian 58-year-old female, in no acute distress HEAD: Normocephalic/atraumatic. EYES: Normal reaction of pupils, equal size. Conjunctiva pink, sclera white. NOSE: Clear with pink turbinates. THROAT: No erythema or exudates. NECK: No masses, no JVD, no thyroid enlargement, no adenopathy. CHEST: No chest wall deformity. Symmetrical expansion. LUNGS: Equal air entry with no crackles, positive wheeze, scattered honchi, no dullness. CVS: Regular rate and rhythm, normal S1 and S2, no gallops, no murmurs, no rubs ABDOMEN: Soft, nontender. No hepatosplenomegaly, normal bowel sounds, no guarding or rigidity. EXTREMITIES: No clubbing, no edema, no cyanosis, 2+ pulses and upper and lower extremities. MUSCULOSKELETAL: Muscle strength and tone normal. SPINE: No scoliosis or deformity SKIN: No rashes CENTRAL NERVOUS SYSTEM: Alert and oriented -3. No focal deficits, tone is n ormal in all 4 extremities. PSYCHIATRIC: Alert and oriented -3. Appropriate affect. Intact judgment and insight. Results - Laboratory Findings CBC and BMP: 10/18/23 03:17 10/18/23 03:17 PT/INR, D-dimer PT 12.1 sec (10.0-12.5) 10/17/23 15: INR 1.1 (<1.2) 10/17/23 15:22 Abnormal lab findings: Abnormal Labs 10/17/23 10/17/23 10/18/23 15:22 15:22 03:17 WBC 15.7 H 10.8 H Hct 47.9 H 48.3 H MCV 100.4 H MCHC 29.6 L Neutrophils # 11.2 H 9.9 H Lymphocytes # 0.7 L Monocytes # 1.2 H Potassium 3.1 L Chloride 96 L Carbon Dioxide 38 H Creatinine 0.48 L Glucose 114 H Calcium 8.3 L Magnesium 1.5 L Total Protein 5.7 L 10/18/23 10/18/23 03:17 03:17 WBC Hct MCV MCHC Neutrophils # Lymphocytes # Monocytes # Potassium 3.4 L Chloride 97 L Carbon Dioxide 37 H Creatinine 0.44 L Glucose 236 H Calcium 8.2 L Magnesium 2.4 H Total Protein - Diagnostic Findings Chest x-ray: image reviewed Assessment and Plan Plan: Acute exacerbation of COPD/asthma. States that she is not smoking for the time being. She is currently back on [employer] on outpatient basis. Acute hypoxic dahlia failure currently on 2 L of oxygen by nasal cannula, rule out a component of CHF as the patient's chest x-ray showing increased pulm vessel markings and the patient proBNP level is also elevated. EKG is normal. Obesity BMI of 39 chronic multiple sclerosis of the relapsing remitting type, received multiple doses of IV Solu-Medrol and outpatient basis under the care of Dr. Ramirez. She is treated with Ocrevus, and she was also chronic difficulty with motor function, optic neuritis, and urinary issues related to multiple sclerosis. ENMANUEL, utilizes CPAP device on outpatient basis obesity. chronic ALLERGIC rhinitis hypertension History of chronic smoking fibromyalgia Plan Agree on the current management. Continue bronchodilators and steroids. Obtain echocardiogram Will decide on diuretic at a later stage Titrate oxygen flow to maintain saturation above 90% Will continue to follow
--- NOTE | 2023-10-18 14:38 | P.CRDCN ---
History of Present Illness Consult date: 10/18/23 History of present illness: HISTORY OF PRESENTING ILLNESS 58-year-old female present to the hospital because of worsening shortness of breath. She has a prior history of smoking, COPD, on Trelegy. She also has history of obstructive sleep apnea, multiple sclerosis, relapsing remitting disease maintained on Ocrevus. She has bladder spasms and chronic motor difficulties and lower extremity due to multiple sclerosis. For bladder spasms she recently got Botox injection. She denies any substernal chest pressure or chest pain. On admission her CXR shows mild pulmonary congestion with reducibility effort. BNP elevated at 3120, troponin negative, BUN 12, creatinine 0.4, hemoglobin 14.3. Chest x-ray shows sinus rhythm with no resting ST changes concerning of ischemia REVIEW OF SYSTEMS 14 point review of system is negative except what is mentioned above in HPI. PHYSICAL EXAMINATION Vital signs reviewed. Head: Normocephalic. Eyes: Sclerae nonicteric. Neck: Brisk carotid upstroke, no jugular venous distention. Lungs: Reduced inspiratory effort, no significant wheezing audible. Heart: Regular rate and rhythm, S1-S2, no S3, no murmur or rub. Abdomen: Soft nontender, positive bowel sounds. Extremities: No edema, intact distal pulses. Neuro: Alert, oritented, no focal deficits. Detailed neuro exam was not performed. ASSESSMENT Acute COPD exacerbation Mild HFpEF exacerbation Acute hypoxic respiratory failure Obesity ENMANUEL Hypertension Multiple sclerosis, relapsing remitting on Ocrevus Chronic smoker PLAN Patient does have mild pulm congestion on chest x-ray and has elevated BNP levels but she does not clinically appear significantly volume overloaded. Her last echocardiogram from 2020 showed an EF of 55% with no major valvular abnormality She is on high-dose verapamil 120 mg for hypertension. Heart rates 80s beats per minute Continue aspirin, verapamil Given dose of IV Lasix 40 mg , Reevaluate tomorrow Obtain echocardiogram Scott Diehl MD, FACC, RPVI Thank you for allowing [facility] to participate in this patient's care. Feel free to reach out in case of any followup questions. Past Medical History Past Medical History: Asthma, Cancer, COPD, Diabetes Mellitus, Eye Disorder, Fibromyalgia, GERD/Reflux, Hearing Disorder / Deafness, Hypertension, Memory Impairment, Musculoskeletal Disorder, Neurologic Disorder, Osteoarthritis (OA), Pneumonia, Sleep Apnea/CPAP/BIPAP, Syncope Additional Past Medical History / Comment(s): MS relapsing/remitting type, chronic bilateral eye pain/optic neuritis/ poor vision on Ocrevus, cataracts bilaterally, chronic occipital neuralgia, osteoporosis, RLS, chronic hypoxic respiratory failure with home oxygen 2L/[place] prn, chronic bronchitis, ENMANUEL, elevated blood sugar with steroid use, uterine cancer with hy sterectomy/radiation, heart murmur, mild cognitive impairment, chronic vertigo, falls, rheumatic fever as child, tinnitis bilaterally, allergic rhinitis, trigeminal neuralgia History of Any Multi-Drug Resistant Organisms: None Reported Past Surgical History: Bladder Surgery, Heart Catheterization, Hysterectomy, Tubal Ligation Additional Past Surgical History / Comment(s): Nerve blocks, bladder suspension, fibroid removal. PAIN CLINIC, bladder botox 08/04/2023 Past Anesthesia/Blood Transfusion Reactions: No Reported Reaction, Postoperative Nausea & Vomiting (PONV) Additional Past Anesthesia/Blood Transfusion Reaction / Comment(s): mild claustrophobia Past Psychological History: Anxiety, Depression Additional Psychological History / Comment(s): Pt resides alone. She uses a cane or walker or wheelchair. She has a private hire nurse aide who organizers her meds in a estate planner but pt takes her own meds, aide assists her with her ADLs. This aide also prepares meals/shopping and cleaning. Pt does not drive, she has her friends take her to appts or sometimes her aide drives her. Smoking Status: Current some day smoker Past Alcohol Use History: Occasional Additional Past Alcohol Use History / Comment(s): Patient started smoking at age 18 and has smoked on and off since then. Past Drug Use History: None Reported - Past Family History Mother Family Medical History: CVA/TIA, Myocardial Infarction ([place]) Additional Family Medical History / Comment(s): Mother is alive at age 75 with history of brain aneurysm, 3 strokes and 2 myocardial infarctions. Brain aneurysms run on mother's side of family Father Family Medical History: Coronary Artery Disease (CAD) Additional Family Medical History / Comment(s): Father at age 72 from a cardiac arrest thought to be due to a myocardial infarction. Sister(s) Family Medical History: No Reported History Additional Family Medical History / Comment(s): Patient has 2 sisters with no major medical problems. Patient does not have any brothers. Patient has 2 adult children with no major medical problems. Patient is only family member with MS. Medications and Allergies Home Medications Medication Instructions Recorded Confirmed Type Verapamil HCl [Calan] 120 mg PO DAILY 02/20/14 10/17/23 History Butalb/APAP/Caff 50-325-40Mg 1 tab PO BID PRN 03/25/17 10/17/23 History [Fioricet 50-325-40] rOPINIRole HCL [Requip] 0.25 mg PO TID #90 tab 01/31/18 10/17/23 Rx Pantoprazole Sodium [Protonix] 40 mg PO BID 10/31/18 10/17/23 History Memantine [Namenda] 10 mg PO BID 11/22/18 10/17/23 History hydroCHLOROthiazide [Hydrodiuril] 25 mg PO DAILY tab 11/26/18 10/17/23 Rx methocarbamoL [Robaxin-750] 750 mg PO Q8H 04/28/19 10/17/23 History Folic Acid 1 mg PO DAILY #30 tab 05/02/19 10/17/23 Rx Albuterol Sulfate [Ventolin HFA] 2 puff INHALATION RT-QID PRN 08/09/19 10/17/23 History Docusate [Colace] 100 mg PO DAILY PRN 01/30/20 10/17/23 History Gabapentin 800 mg PO TID 08/21/20 10/17/23 History Topiramate [Topamax] 100 mg PO BID 08/21/20 10/17/23 History oxyCODONE-APAP 7.5-325MG [Percocet 1 tab PO Q6H PRN 10/30/20 10/17/23 History 7.5-325 mg] Cholecalciferol [Vitamin D3 (25 50 mcg PO DAILY 06/15/21 10/17/23 History Mcg = 1000 Iu)] Fluticasone/Umeclidin/Vilanter 1 puff INHALATION RT-DAILY 06/15/21 10/17/23 History [Trelegy Ellipta 200-62.5-25] PARoxetine HCL [Paxil] 40 mg PO DAILY 06/15/21 10/17/23 History busPIRone HCl [Buspar] 10 mg PO TID 06/15/21 10/17/23 History Ipratropium-Albuterol Nebulize 3 ml INHALATION DIRECTED PRN 08/13/21 10/17/23 History [Duoneb 0.5 mg-3 mg/3 ml Soln] Aspirin EC [Ecotrin Low Dose] 81 mg PO DAILY 02/09/22 10/17/23 History Budesonide [Pulmicort] 0.5 mg INHALATION DIRECTED 02/09/22 10/17/23 History Cetirizine HCl [Zyrtec] 10 mg PO DAILY 10/17/23 10/17/23 History LORazepam [Ativan] 1 mg PO TID 10/17/23 10/17/23 History Promethazine/Dextromethorphan 5 ml PO Q6H PRN 10/17/23 10/17/23 History [Promethazine-Dm Syrup] Sucralfate [Carafate] 1 gm PO AC-TID 10/17/23 10/17/23 History Allergies Allergy/AdvReac Type Severity Reaction Status Date / Time baclofen AdvReac URINARY Verified 10/17/23 19:38 ISSUES dexamethasone [From Decadron] AdvReac "THOMPSON Verified 10/17/23 19:38 SKIN"/DEHYDRATION Physical Exam Vitals: Vital Signs Temp Pulse Pulse Resp BP BP Pulse Ox 10/18/23 12:16 86 16 108/70 95 10/18/23 11:24 84 18 10/18/23 11:13 81 18 10/18/23 08:35 98.7 F 89 16 120/77 94 L 10/18/23 08:20 87 18 10/18/23 08:07 87 18 98 10/18/23 08:00 86 16 10/18/23 06:00 81 18 109/70 95 10/18/23 05:00 69 12 100/68 94 L 10/18/23 04:00 75 15 105/62 95 10/18/23 03:00 81 20 102/59 92 L 10/18/23 02:41 80 15 102/59 95 10/18/23 01:38 89 10/18/23 01:28 87 10/18/23 01:12 19 109/64 97 10/17/23 20:42 85 10/17/23 20:29 87 10/17/23 19:59 81 18 107/72 95 06/15/24 17:02 88 18 10/17/23 16:45 81 18 10/17/23 16:38 87 18 107/70 94 L 10/17/23 15:50 86 18 99/68 97 Intake and Output 10/17/23 10/18/23 10/18/23 22:59 06:59 14:59 Other: Weight 118.5 kg Results 10/18/23 03:17 10/18/23 03:17 Cardiac Enzymes 10/17/23 10/17/23 Range/Units 15:22 15:22 AST 22 (14-36) U/L Troponin I 0.013 (0.000-0.034) ng/mL Coagulation 10/17/23 Range/Units 15:22 PT 12.1 (10.0-12.5) sec APTT 23.3 (22.0-30.0) sec CBC 10/17/23 10/18/23 Range/Units 15:22 03:17 WBC 15.7 H 10.8 H (3.8-10.6) k/uL RBC 4.87 4.81 (3.80-5.40) m/uL Hgb 14.9 14.3 (11.4-16.0) gm/dL Hct 47.9 H 48.3 H (34.0-46.0) % Plt Count 276 202 (150-450) k/uL Comprehensive Metabolic Panel 10/17/23 10/18/23 Range/Units 15:22 03:17 Sodium 139 139 (137-145) mmol/L Potassium 3.1 L 3.4 L (3.5-5.1) mmol/L Chloride 96 L 97 L (98-107) mmol/L Carbon Dioxide 38 H 37 H (22-30) mmol/L BUN 11 12 (7-17) mg/dL Creatinine 0.48 L 0.44 L (0.52-1.04) mg/dL Glucose 114 H 236 H (74-99) mg/dL Calcium 8.3 L 8.2 L (8.4-10.2) mg/dL AST 22 (14-36) U/L ALT 20 (4-34) U/L Alkaline Phosphatase 74 (38-126) U/L Total Protein 5.7 L (6.3-8.2) g/dL Albumin 3.8 (3.5-5.0) g/dL Current Medications Generic Name Dose Route Start Last Admin Trade Name Freq PRN Reason Stop Dose Admin Acetaminophen 650 mg 10/17/23 18:05 Acetaminophen Tab 325 Mg Tab PO Q4HR PRN Mild Pain or Fever > 100.5 Albuterol/Ipratropium 3 ml 10/17/23 18:05 10/18/23 01:27 Ipratropium-Albuterol 3 Ml Neb INHALATION 3 ml RT-Q2H PRN Administration Shortness Of Breath Or Wheezing Albuterol/Ipratropium 3 ml 10/17/23 20:00 10/18/23 11:13 Ipratropium-Albuterol 3 Ml Neb INHALATION 3 ml RT-QID ANDREAS Administration Aspirin 81 mg 10/18/23 09:00 10/18/23 09:56 Aspirin 81 Mg PO 81 mg DAILY ANDREAS Administration Budesonide/Formoterol Fumarate 2 puff 10/18/23 08:00 10/18/23 08:04 Symbicort 160-4.5 Mcg Inhaler INHALATION 2 puff RT-BID ANDREAS Administration Buspirone HCl 10 mg 10/18/23 00:45 10/18/23 09:54 Buspirone Hcl 10 Mg Tab PO 10 mg TID ANDREAS Administration Docusate Sodium 100 mg 10/18/23 00:34 Docusate 100 Mg Cap PO DAILY PRN Constipation Enoxaparin Sodium 40 mg 10/18/23 09:00 10/18/23 09:56 Enoxaparin 40 Mg/0.4 Ml Syringe SQ 40 mg DAILY ANDREAS Administration Gabapentin 800 mg 10/18/23 00:45 10/18/23 09:56 Gabapentin 400 Mg Cap PO 800 mg TID ANDREAS Administration Memantine 10 mg 10/18/23 09:00 10/18/23 09:56 Memantine 10 Mg Tab PO 10 mg BID ANDREAS Administration Methylprednisolone Sodium Succinate 60 mg 10/18/23 00:00 10/18/23 12:16 Methylprednisolone Sod Succi 125 Mg/2 Ml Vial IV 60 mg Q6HR ANDREAS Administration Naloxone HCl 0.2 mg 10/17/23 18:05 Naloxone 0.4 Mg/Ml 1 Ml Vial IVP Q2M PRN Opioid Reversal Oxycodone/Acetaminophen 1 each 10/18/23 00:34 10/18/23 09:55 Oxycodone-Apap 7.5-325mg 1 Each Tab PO 1 each Q6H PRN Administration Pain Pantoprazole Sodium 40 mg 10/18/23 07:30 10/18/23 09:56 Pantoprazole 40 Mg Tablet PO 40 mg AC-BID ANDREAS Administration Paroxetine HCl 40 mg 10/18/23 09:00 10/18/23 09:55 Paroxetine 20 Mg Tab PO 40 mg DAILY ANDREAS Administration Topiramate 100 mg 10/18/23 09:00 10/18/23 09:54 Topiramate 100 Mg Tab PO 100 mg BID ANDREAS Administration Verapamil HCl 120 mg 10/18/23 09:00 10/18/23 09:56 Verapamil Sr 120 Mg Tablet.Er PO 120 mg DAILY ANDREAS Administration Intake and Output 10/17/23 10/18/23 10/18/23 22:59 06:59 14:59 Other: Weight 118.5 kg Patient Weight 10/19/23 06:59 Weight 118.5 kg 10/18/23 03:17 10/18/23 03:17
[2023-10-18] MEDS: FUROSEMIDE 10 MG/ML 4 ML VIAL IV STA (14:49)
[2023-10-18] MEDS ORDERED: DEXTROSE 50% SYRINGE 50 ML IVP PRN ×2 (15:29)
--- NOTE | 2023-10-18 15:42 | P.HPIM ---
History of Present Illness H&P Date: 10/18/23 Chief Complaint: Shortness of breath Patient is a 58-year-old female with a past medical history of multiple sclerosis, fibromyalgia, COPD on home oxygen as needed, asthma, hearing disorder/deafness, memory impairment, osteoarthritis, obstructive sleep apnea, history of uterine cancer status post hysterectomy/radiation, anxiety/depression and currently light smoker presents to ER with complaints of shortness of breath, generalized weakness and falls. Patient states that her emesis worsening and was seen by her physician about 2 and half weeks ago and felt that she is very sick. She was also treated with steroids as an outpatient. Otherwise no complaints of chest pain. Patient was short of breath on admission. No nausea vomiting abdominal pain or diarrhea. Patient does have generalized body pains. Chest x-ray showed correlate for mild venous congestion or interstitial pneumonitis. Stable cardiomegaly. CT head showed no acute intracranial process. EKG showed sinus rhythm with low QRS voltage criteria Ultrasound abdomen/gallbladder showed no evidence for acute process. Hepatic steatosis. Hepatomegaly. Simple appearing hepatic cyst. Laboratory data showed WBC 15.7 hemoglobin 14.9 and platelets 276 Sodium 139 potassium 3.1 chloride 96 bicarb is 38 BUN 11 and creatinine 0.48 and blood sugar 114 lactic acid 1.1 magnesium 1.5 and proBNP 3120 2D echocardiogram in 2020 showed preserved EF. Review of Systems Constitutional: Patient denies any fever or chills . Generalized weakness and decreased appetite Abdomen: Patient denied nausea vomiting and diarrhea and abdominal pain. Cardiovascular: Patient denies any chest pain. Positive short of breath no palpitations. No leg swelling Respiratory: Patient does have cough without sputum production. Shortness of breath positive Neurologic: Patient denied any numbness or tingling. no headache. Musculoskeletal: Patient denies any complaints of joint swelling or deformity. Skin: Negative Psychiatric: Negative Endocrine: No heat or cold intolerance. No recent weight gain. Genitourinary: No dysuria or hematuria. All other 14 point ROS negative except the above Past Medical History Past Medical History: Asthma, Cancer, COPD, Eye Disorder, Fibromyalgia, GERD/Reflux, Hearing Disorder / Deafness, Hypertension, Memory Impairment, Musculoskeletal Disorder, Neurologic Disorder, Osteoarthritis (OA), Pneumonia, Sleep Apnea/CPAP/BIPAP, Syncope Additional Past Medical History / Comment(s): MS relapsing/remitting type, chronic bilateral eye pain/optic neuritis/ poor vision, cataracts bilaterally, chronic occipital neuralgia, osteoporosis, RLS, chronic hypoxic respiratory failure with home oxygen 2L/NC prn, chronic bronchitis, immunocompromised, elevated blood sugar with steroid use, uterine cancer with hysterectomy/radiation, heart murmur, mild cognitive impairment, chronic vertigo, falls, rheumatic fever as child, tinnitis bilaterally, allergic rhinitis, trigeminal neuralgia. History of Any Multi-Drug Resistant Organisms: None Reported Past Surgical History: Bladder Surgery, Heart Catheterization, Hysterectomy, Tubal Ligation Additional Past Surgical History / Comment(s): Nerve blocks, bladder suspension, fibroid removal. PAIN CL[facility] Past Anesthesia/Blood Transfusion Reactions: No Reported Reaction, Postoperative Nausea & Vomiting (PONV) Additional Past Anesthesia/Blood Transfusion Reaction / Comment(s): mild claustrophobia Past Psychological History: Anxiety, Depression Smoking Status: Current some day smoker Past Alcohol Use History: Occasional Past Drug Use History: None Reported - Past Family History Mother Family Medical History: CVA/TIA, Myocardial Infarction ([place]) Additional Family Medical History / Comment(s): Mother is alive at age 75 with history of brain aneurysm, 3 strokes and 2 myocardial infarctions. Brain aneurysms run on mother's side of family Father Family Medical History: Coronary Artery Disease (CAD) Additional Family Medical History / Comment(s): Father at age 72 from a cardiac arrest thought to be due to a myocardial infarction. Sister(s) Family Medical History: No Reported History Additional Family Medical History / Comment(s): Patient has 2 sisters with no major medical problems. Patient does not have any brothers. Patient has 2 adult children with no major medical problems. Patient is only family member with MS. Medications and Allergies Home Medications Medication Instructions Recorded Confirmed Type Verapamil HCl [Calan] 120 mg PO DAILY 02/20/14 10/17/23 History Butalb/APAP/Caff 50-325-40Mg 1 tab PO BID PRN 03/25/17 10/17/23 History [Fioricet 50-325-40] rOPINIRole HCL [Requip] 0.25 mg PO TID #90 tab 01/31/18 10/17/23 Rx Pantoprazole Sodium [Protonix] 40 mg PO BID 10/31/18 10/17/23 History Memantine [Namenda] 10 mg PO BID 11/22/18 10/17/23 History hydroCHLOROthiazide [Hydrodiuril] 25 mg PO DAILY tab 11/26/18 10/17/23 Rx methocarbamoL [Robaxin-750] 750 mg PO Q8H 04/28/19 10/17/23 History Folic Acid 1 mg PO DAILY #30 tab 05/02/19 10/17/23 Rx Albuterol Sulfate [Ventolin HFA] 2 puff INHALATION RT-QID PRN 08/09/19 10/17/23 History Docusate [Colace] 100 mg PO DAILY PRN 01/30/20 10/17/23 History Gabapentin 800 mg PO TID 08/21/20 10/17/23 History Topiramate [Topamax] 100 mg PO BID 08/21/20 10/17/23 History oxyCODONE-APAP 7.5-325MG [Percocet 1 tab PO Q6H PRN 10/30/20 10/17/23 History 7.5-325 mg] Cholecalciferol [Vitamin D3 (25 50 mcg PO DAILY 06/15/21 10/17/23 History Mcg = 1000 Iu)] Fluticasone/Umeclidin/Vilanter 1 puff INHALATION RT-DAILY 06/15/21 10/17/23 History [Trelegy Ellipta 200-62.5-25] PARoxetine HCL [Paxil] 40 mg PO DAILY 06/15/21 10/17/23 History busPIRone HCl [Buspar] 10 mg PO TID 06/15/21 10/17/23 History Ipratropium-Albuterol Nebulize 3 ml INHALATION DIRECTED PRN 08/13/21 10/17/23 History [Duoneb 0.5 mg-3 mg/3 ml Soln] Aspirin EC [Ecotrin Low Dose] 81 mg PO DAILY 02/09/22 10/17/23 History Budesonide [Pulmicort] 0.5 mg INHALATION DIRECTED 02/09/22 10/17/23 History Cetirizine HCl [Zyrtec] 10 mg PO DAILY 10/17/23 10/17/23 History LORazepam [Ativan] 1 mg PO TID 10/17/23 10/17/23 History Promethazine/Dextromethorphan 5 ml PO Q6H PRN 10/17/23 10/17/23 History [Promethazine-Dm Syrup] Sucralfate [Carafate] 1 gm PO AC-TID 10/17/23 10/17/23 History Allergies Allergy/AdvReac Type Severity Reaction Status Date / Time baclofen AdvReac URINARY Verified 10/17/23 19:38 ISSUES dexamethasone [From Decadron] AdvReac "THOMPSON Verified 10/17/23 19:38 SKIN"/DEHYDRATION Physical Exam Vitals: Vital Signs Temp Pulse Pulse Resp BP BP Pulse Ox 10/18/23 08:35 98.7 F 89 16 120/77 94 L 10/18/23 08:20 87 18 10/18/23 08:07 87 18 98 10/18/23 06:00 81 18 109/70 95 10/18/23 05:00 69 12 100/68 94 L 10/18/23 04:00 75 15 105/62 95 10/18/23 03:00 81 20 102/59 92 L 10/18/23 02:41 80 15 102/59 95 10/18/23 01:38 89 10/18/23 01:28 87 10/18/23 01:12 19 109/64 97 10/17/23 20:42 85 10/17/23 20:29 87 10/17/23 19:59 81 18 107/72 95 10/17/23 17:02 88 18 10/17/23 16:45 81 18 10/17/23 16:38 87 18 107/70 94 L 10/17/23 15:50 86 18 99/68 97 10/17/23 14:00 97.9 F 96 18 116/76 96 PHYSICAL EXAMINATION: Patient is lying in the bed. No acute distress, awake alert and oriented. Morbidly obese. HEENT: Normocephalic. Neck is supple. Pupils reactive. Nostrils clear. Oral cavity is moist. Neck reveals no JVD, carotid bruits, or thyromegaly. CHEST EXAMINATION: Trachea is central. Symmetrical expansion. Bibasilar diminished sound mild expiratory wheeze n. CARDIAC: Normal S1, S2 with no gallops. No murmurs ABDOMEN: Soft. Bowel sounds present. No organomegaly. No abdominal bruits. Extremities: reveal no edema. No clubbing or cyanosis Neurologically awake, alert, oriented x3 with well-coordinated movements. No gross focal deficits noted Skin: No rash or skin lesions. Psychiatric: Coperative. Nonsuicidal, anxious. Musculoskeletal: No joint swelling or deformity. Normal range of motion. Results CBC & Chem 7: 10/18/23 03:17 10/18/23 03:17 Labs: Abnormal Lab Results - Last 24 Hours (Table) 10/17/23 10/17/23 10/18/23 Range/Units 15:22 15:22 03:17 WBC 15.7 H 10.8 H (3.8-10.6) k/uL Hct 47.9 H 48.3 H (34.0-46.0) % MCV 100.4 H (80.0-100.0) fL MCHC 29.6 L (31.0-37.0) g/dL Neutrophils # 11.2 H 9.9 H (1.3-7.7) k/uL Lymphocytes # 0.7 L (1.0-4.8) k/uL Monocytes # 1.2 H (0-1.0) k/uL Potassium 3.1 L (3.5-5.1) mmol/L Chloride 96 L (98-107) mmol/L Carbon Dioxide 38 H (22-30) mmol/L Creatinine 0.48 L (0.52-1.04) mg/dL Glucose 114 H (74-99) mg/dL Calcium 8.3 L (8.4-10.2) mg/dL Magnesium 1.5 L (1.6-2.3) mg/dL Total Protein 5.7 L (6.3-8.2) g/dL 10/18/23 10/18/23 Range/Units 03:17 03:17 WBC (3.8-10.6) k/uL Hct (34.0-46.0) % MCV (80.0-100.0) fL MCHC (31.0-37.0) g/dL Neutrophils # (1.3-7.7) k/uL Lymphocytes # (1.0-4.8) k/uL Monocytes # (0-1.0) k/uL Potassium 3.4 L (3.5-5.1) mmol/L Chloride 97 L (98-107) mmol/L Carbon Dioxide 37 H (22-30) mmol/L Creatinine 0.44 L (0.52-1.04) mg/dL Glucose 236 H (74-99) mg/dL Calcium 8.2 L (8.4-10.2) mg/dL Magnesium 2.4 H (1.6-2.3) mg/dL Total Protein (6.3-8.2) g/dL Thrombosis Risk Factor Assmnt - DVT/VTE Prophylaxis DVT/VTE Prophylaxis: Pharmacologic Prophylaxis ordered Assessment and Plan Assessment: Shortness of breath secondary to acute COPD exacerbation and venous congestion. Possible tracheobronchomalacia Mild acute HFpEF Severe hypokalemia with potassium 3.1 on admission Leukocytosis improving Multiple sclerosis with relapsing and remitting and was on IV steroids and multiple medications as an outpatient. Obstructive sleep apnea on CPAP Chronic hypoxic respiratory failure on 2 L oxygen via nasal cannula History of uterine cancer status post hysterectomy and radiation. Anxiety/depression Morbid obesity with BMI 47.8 Trigeminal neuralgia GERD Memory loss/cognitive impairment Osteoarthritis Anxiety/depression Currently someday smoker Chronic pain on pain clinic follow-up as an outpatient DVT prophylax with Lovenox subcu Plan: Patient will be continued on DuoNebs and Symbicort. Continue the oxygen supplementation. Patient was started on IV Solu-Medrol 60 mg every 6 hourly. Replace electrolytes. Follow-up procalcitonin level. Patient was given an ceftriaxone and azithromycin in the ER. Cardiology and pulmonary consult. 2D echocardiogram was ordered. Continue to follow closely. Prognosis guarded with multiple medical problems and comorbid conditions. Time with Patient: Greater than 30
[2023-10-18 16:42] LABS: Glucose,Whole Blood 176 mg/dL (70-110)
[2023-10-18] MEDS: LORazepam 1 MG TAB PO SCH (16:42)
[2023-10-18] MEDS: INSULIN ASPART (NovoLOG) 100 UNIT/ML VIAL SQ SCH (17:34)
[2023-10-18] MEDS: methocarbamoL 750 MG TAB PO SCH (17:34)
[2023-10-18] MEDS: AZITHROMYCIN 500 MG TAB PO SCH (17:34)
[2023-10-18 20:16] LABS: Glucose,Whole Blood 205 mg/dL (70-110)
[2023-10-18] MEDS: BUTALB/APAP/CAFF 50-325-40MG TAB PO PRN (20:45)
[2023-10-18] MEDS: NYSTATIN 100,000 UNIT/GM POWD 15 GM TOPICAL SCH (21:32)
[2023-10-18] MEDS: NICOTINE 14MG/24HR PATCH TRANSDERM SCH (21:53)
[2023-10-18] MEDS: MELATONIN 5 MG TABLET PO SCH (22:04)
[2023-10-19 06:10] LABS: Glucose,Whole Blood 178 mg/dL (70-110)
[2023-10-19] MEDS: SUCRALFATE 1 GM TAB PO SCH (06:35)
[2023-10-19 07:13] LABS: Basophils % (A) 0 %; Eosinophils # (A) 0.2 k/uL (0-0.7); Eosinophils % (A) 1 %; HCT 51.5 % (34.0-46.0); HGB 15.1 gm/dL (11.4-16.0); Hypochromasia Marked; Lymphocytes # (A) 1.1 k/uL (1.0-4.8); Lymphocytes % (A) 5 %; MCH 29.9 pg (25.0-35.0); MCHC 29.4 g/dL (31.0-37.0); MCV 101.7 fL (80.0-100.0); Macrocytosis Slight; Mean Platelet Volume 9.3; Monocytes # (A) 0.7 k/uL (0-1.0); Monocytes % (A) 3 %; Neutrophils # (A) 18.7 k/uL (1.3-7.7); Neutrophils % (A) 90 %; Platelet Count 264 k/uL (150-450); RBC 5.06 m/uL (3.80-5.40); WBC 20.7 k/uL (3.8-10.6)
[2023-10-19 07:20] LABS: African American GFR (CKD) >90 (>60 ml/min/1.73 sqM); Anion Gap 6 mmol/L; Blood Urea Nitrogen 15 mg/dL (7-17); Calcium 9.1 mg/dL (8.4-10.2); Carbon Dioxide 34 mmol/L (22-30); Chloride 102 mmol/L (98-107); Glucose 168 mg/dL (74-99); Non-African American GFR(CKD) >90 (>60 ml/min/1.73 sqM); Potassium 4.2 mmol/L (3.5-5.1); Sodium 142 mmol/L (137-145)
[2023-10-19] MEDS ORDERED: hydroCHLOROthiazide 25 MG TAB PO SCH (09:00)
[2023-10-19 11:26] LABS: Glucose,Whole Blood 157 mg/dL (70-110)
--- NOTE | 2023-10-19 12:56 | CDI ---
Documentation Clarification Form Date: 10/19/2023 12:45:39 PM From: Ronda Hong RN CCDS Phone: [phone] Admit Date: 10/17/2023 06:07:00 PM Patient Name: Hudson Hernández Visit Number: [id number] Discharge Date: ATTENTION: The Clinical Documentation Specialists (CDI) and [facility] Coding Staff appreciate your assistance in clarifying documentation. Please respond to the clarification below the line at the bottom and electronically sign. The CDI & [facility] Coding staff will review the response and follow-up if needed. Please note: Queries are made part of the Legal Health Record. If you have any questions, please contact the author of this message via ITS. Dr. Means Conflicting documentation has been found in the medical record. As attending physician, please provide clarification. Chronic hypoxic respiratory failure, HP, 10/17. Acute hypoxic respiratory failure, Cardiology consult, 10/17. History/Risk Factors:58 year old female presented to the ED with shortness of breath, generalized weakness and falls. Medical History: COPD on home oxygen as needed, MS, Obstructive sleep apnea and home oxygen 2L /NC prn. 10/17, HP. Clinical Indicators: 10/16, VSS: B/P 116/76; HR 96; Temp 97.9 F Oral; RR 18; SpO2 96% 2L nc 10/17, HP: Chronic hypoxic respiratory failure with home oxygen 2L /NC prn. 10/17, Cardiology: Acute hypoxic respiratory failure 10/17, Chest examination HP: Bibasilar diminished sound mild expiratory wheeze. 10/17, Pulmonary Lung exam: Equal air entry with no crackles, positive wheeze, scattered rhonchi, no dullness. Treatment: 2L nasal cannula Please clarify which diagnosis is most appropriate: [ ] Chronic Hypoxic Respiratory Failure [ ] Acute on Chronic Hypoxic Respiratory Failure [ x ] Other (please specify) ____cannot call acute respiratory failure unless patient is requiring 3 or more liters of oxygen [ ] Unable to determine (Template Last Revised: July 2020) MTDD
--- NOTE | 2023-10-19 13:22 | P.PN ---
Subjective Progress Note Date: 10/19/23 HISTORY OF PRESENTING ILLNESS 58-year-old female present to the hospital because of worsening shortness of breath. She has a prior history of smoking, COPD, on Trelegy. She also has history of obstructive sleep apnea, multiple sclerosis, relapsing remitting disease maintained on Ocrevus. She has bladder spasms and chronic motor difficulties and lower extremity due to multiple sclerosis. For bladder spasms she recently got Botox injection. She denies any substernal chest pressure or chest pain. On admission her CXR shows mild pulmonary congestion with reducibility effort. BNP elevated at 3120, troponin negative, BUN 12, creatinine 0.4, hemoglobin 14.3. Chest x-ray shows sinus rhythm with no resting ST changes concerning of ischemia 10/18 Patient is seen today in follow up. She states she is feeling tired. + cough. She states she has chest pain with coughing. She is a smoker of 1 ppd. BP 11 7/76, HR 90, PO 97% 2L. She received IV Lasix 40 mg x1 yesterday. Echocardiogram is pending. PHYSICAL EXAMINATION Vital signs reviewed. Head: Normocephalic. Eyes: Sclerae nonicteric. Neck: Brisk carotid upstroke, no jugular venous distention. Lungs: Reduced inspiratory effort, no significant wheezing audible. Heart: Regular rate and rhythm, S1-S2, no S3, no murmur or rub. Abdomen: Soft nontender, positive bowel sounds. Extremities: No edema, intact distal pulses. Neuro: Alert, oritented, no focal deficits. Detailed neuro exam was not performed. ASSESSMENT Acute COPD exacerbation Mild HFpEF exacerbation Acute hypoxic respiratory failure Obesity ENMANUEL Hypertension Multiple sclerosis, relapsing remitting on Ocrevus Chronic smoker PLAN No need for Lasix Obtain echocardiogram Continue verapamil 120 mg and aspirin. Smoking cessation. Patient will be provided [employer] quit line information at discharge. Nurse practitioner note has been reviewed, I agree with documented findings and plan of care. Patient was seen and examined. Objective - Vital Signs Vital signs: Vital Signs Temp 97.7 F 10/19/23 04:00 Pulse 90 10/19/23 09:26 Resp 18 10/19/23 09:26 BP 117/76 10/19/23 04:00 Pulse Ox 97 10/19/23 04:00 FiO2 Intake & Output 10/18/23 10/19/23 10/19/23 18:59 06:59 18:59 Intake Total 340 Output Total 300 500 Balance -300 -160 Weight 118.5 kg 98.6 kg Intake: Oral 340 Output: Urine 300 500 Other: Voiding Method Bedside Commode Toilet Bedside Commode # Voids 2 - Labs CBC & Chem 7: 10/19/23 06:56 10/19/23 06:56 Labs: Abnormal Lab Results - Last 24 Hours (Table) 10/18/23 10/18/23 10/18/23 Range/Units 03:17 16:40 20:15 WBC (3.8-10.6) k/uL Hct (34.0-46.0) % MCV (80.0-100.0) fL MCHC (31.0-37.0) g/dL Neutrophils # (1.3-7.7) k/uL Carbon Dioxide (22-30) mmol/L Glucose (74-99) mg/dL POC Glucose (mg/dL) 176 H 205 H (70-110) mg/dL Procalcitonin 0.17 H (0.02-0.09) ng/mL 10/19/23 10/19/23 10/19/23 Range/Units 06:07 06:56 06:56 WBC 20.7 H (3.8-10.6) k/uL Hct 51.5 H (34.0-46.0) % MCV 101.7 H (80.0-100.0) fL MCHC 29.4 L (31.0-37.0) g/dL Neutrophils # 18.7 H (1.3-7.7) k/uL Carbon Dioxide 34 H (22-30) mmol/L Glucose 168 H (74-99) mg/dL POC Glucose (mg/dL) 178 H (70-110) mg/dL Procalcitonin (0.02-0.09) ng/mL Microbiology - Last 24 Hours (Table) 10/17/23 20:15 Blood Culture - Preliminary Blood 10/17/23 20:00 Blood Culture - Preliminary Blood
[2023-10-19] MEDS: guaiFENesin 600 MG TABLET.ER PO SCH (13:51)
--- NOTE | 2023-10-19 14:23 | P.PN ---
Subjective Progress Note Date: 10/19/23 Principal diagnosis: Acute exacerbation of COPD with acute hypoxic respiratory failure This is a 58-year-old female patient was seen emergency department for shortness of breath. The patient is known to have COPD/asthma, and ex-smoker without Trelegy Ellipta on outpatient basis. She also suffers from multiple sclerosis and she has relapsing remitting disease maintained on Ocrevus on outpatient basis. The patient has optic neuritis, chronic motor difficulties in lower ext remities and bladder spasms related to MS and the patient has undergone recent bladder injection with Botox. She has normal to although she does not use them irregular basis. She has also obstructive sleep apnea. She has been utilizing his CPAP on outpatient basis. She comes to the hospital because of increased dyspnea, cough and congestion and wheeze. Limited edema lower extremities bilaterally. The white circles of 10.8 edema 14 and a platelet count of 202. BUN is at 12 with a creatinine of 0.4 and sodium levels of 139 and a procalcitonin level is at 0.17. proBNP level is 3120. Chest x-ray is more consistent with CHF with increased interstitial markings bilaterally. CAT scan of the brain was also done in the emergency department that showed no acute intracranial process. The EKG is showing normal sinus rhythm with a low voltage no acute ischemic changes. Ultrasound of the abdomen the gallbladder was also done that showed no evidence of any acute process. Noted the patient's LFTs are essentially within normal limits. She is currently on oxygen 2 L with a pulse ox of 95%. Patient was evaluated today on 10/19/2023, continues to have intermittent cough, cough is productive with yellow phlegm, no fever no chills no hemoptysis no chest pain. She does have vague aches and pains, and complaining of aching all over. Patient has leukocytosis with WBC count of 20.7 hemoglobin 15.1 electrolytes are normal bicarb is 34, procalcitonin level is elevated at 0.17 chest x-ray on admission showed some bilateral hazy opacities, questionable pneumonitis Objective - Vital Signs Vital signs: Vital Signs Temp 98.4 F 10/19/23 08:00 Pulse 99 10/19/23 12:40 Resp 18 10/19/23 12:40 BP 123/73 10/19/23 12:00 Pulse Ox 98 10/19/23 12:00 FiO2 Intake & Output 10/18/23 10/19/23 10/19/23 18:59 06:59 18:59 Intake Total 340 474 Output Total 300 500 Balance -300 -160 474 Weight 118.5 kg 98.6 kg Intake: Oral 340 474 Output: Urine 300 500 Other: Voiding Method Bedside Commode Toilet Toilet Bedside Commode Bedside Commode # Voids 2 - Exam GENERAL EXAM: 58-year-old female in no distress HEAD: Normocephalic/atraumatic. EYES: Normal reaction of pupils, equal size. Conjunctiva pink, sclera white. NOSE: Clear with pink turbinates. THROAT: No erythema or exudates. NECK: No masses, no JVD, no thyroid enlargement, no adenopathy. CHEST: No chest wall deformity. Symmetrical expansion. LUNGS: Crackles and scattered rhonchi noted bilaterally CVS: Regular rate and rhythm, normal S1 and S2, no gallops, no murmurs, no rubs ABDOMEN: Soft, nontender. No hepatosplenomegaly, normal bowel sounds, no g uarding or rigidity. EXTREMITIES: No clubbing, no edema, no cyanosis, 2+ pulses and upper and lower extremities. MUSCULOSKELETAL: Muscle strength and tone normal. SKIN: No rashes CENTRAL NERVOUS SYSTEM: Alert oriented x 3 no gross focal deficit PSYCHIATRIC: Normal mood, affect and no mental status examination - Labs CBC & Chem 7: 10/19/23 06:56 10/19/23 06:56 Labs: Abnormal Lab Results - Last 24 Hours (Table) 10/18/23 10/18/23 10/19/23 Range/Units 16:40 20:15 06:07 WBC (3.8-10.6) k/uL Hct (34.0-46.0) % MCV (80.0-100.0) fL MCHC (31.0-37.0) g/dL Neutrophils # (1.3-7.7) k/uL Carbon Dioxide (22-30) mmol/L Glucose (74-99) mg/dL POC Glucose (mg/dL) 176 H 205 H 178 H (70-110) mg/dL Hemoglobin A1c (<=6.0) % 10/19/23 10/19/23 10/19/23 Range/Units 06:56 06:56 06:56 WBC 20.7 H (3.8-10.6) k/uL Hct 51.5 H (34.0-46.0) % MCV 101.7 H (80.0-100.0) fL MCHC 29.4 L (31.0-37.0) g/dL Neutrophils # 18.7 H (1.3-7.7) k/uL Carbon Dioxide 34 H (22-30) mmol/L Glucose 168 H (74-99) mg/dL POC Glucose (mg/dL) (70-110) mg/dL Hemoglobin A1c 6.6 H (<=6.0) % 10/19/23 Range/Units 11:24 WBC (3.8-10.6) k/uL Hct (34.0-46.0) % MCV (80.0-100.0) fL MCHC (31.0-37.0) g/dL Neutrophils # (1.3-7.7) k/uL Carbon Dioxide (22-30) mmol/L Glucose (74-99) mg/dL POC Glucose (mg/dL) 157 H (70-110) mg/dL Hemoglobin A1c (<=6.0) % Microbiology - Last 24 Hours (Table) 10/17/23 20:15 Blood Culture - Preliminary Blood 10/17/23 20:00 Blood Culture - Preliminary Blood Assessment and Plan Assessment: Impression: Acute exacerbation of COPD/asthma Acute hypoxic respiratory failure secondary to above Possible community-acquired pneumonia based on chest x-ray findings, leukocytosis, and elevated procalcitonin level History of obstructive sleep apnea syndrome Benign essential hypertension Fibromyalgia History of multiple sclerosis Recommendation: Continue antibiotics, add Rocephin to Zithromax Continue bronchodilators Continue gentle diuresis as needed Obtain echocardiogram Will continue to follow Time with Patient: Less than 30
[2023-10-19] MEDS: NYSTATIN 100,000 UNIT/ML SUSP 500,000 UNIT/5 ML CUP PO SCH (15:31)
[2023-10-19 16:56] LABS: Glucose,Whole Blood 130 mg/dL (70-110)
[2023-10-19] MEDS: LORATADINE 10 MG TAB PO SCH (17:06)
[2023-10-19] MEDS: FOLIC ACID 1 MG TAB PO SCH (17:06)
[2023-10-19] MEDS: CHOLECALCIFEROL 25 MCG (1000 IU) TABLET PO SCH (17:06)
--- NOTE | 2023-10-19 18:38 | P.PN ---
Subjective Progress Note Date: 10/19/23 Patient is a 58-year-old female with a past medical history of multiple sclerosis, fibromyalgia, COPD on home oxygen as needed, asthma, hearing disorder/deafness, memory impairment, osteoarthritis, obstructive sleep apnea, history of uterine cancer status post hysterectomy/radiation, anxiety/depression and currently light smoker presents to ER with complaints of shortness of breath, generalized weakness and falls. Patient states that her emesis worsening and was seen by her physician about 2 and half weeks ago and felt that she is very sick. She was also treated with steroids as an outpatient. Oth erwise no complaints of chest pain. Patient was short of breath on admission. No nausea vomiting abdominal pain or diarrhea. Patient does have generalized body pains. Chest x-ray showed correlate for mild venous congestion or interstitial pneumonitis. Stable cardiomegaly. CT head showed no acute intracranial process. EKG showed sinus rhythm with low QRS voltage criteria Ultrasound abdomen/gallbladder showed no evidence for acute process. Hepatic steatosis. Hepatomegaly. Simple appearing hepatic cyst. Laboratory data showed WBC 15.7 hemoglobin 14.9 and platelets 276 Sodium 139 potassium 3.1 chloride 96 bicarb is 38 BUN 11 and creatinine 0.48 and blood sugar 114 lactic acid 1.1 magnesium 1.5 and proBNP 3120 2D echocardiogram in 2020 showed preserved EF. 10/19/2023 Patient is evaluated today in follow up. Sitting up in bed. Continues on 2L of oxygen. Remains on IV solumedrol and oral azithromycin. White blood cell count elevated at 20.7 likely from the high dose of steroids. Patient reports improvement in her shortness of breath. Procalcitonin level 0.17. Review of Systems Constitutional: Denied any fatigue denied any fever. Cardio vascular: denied any chest pain, palpitations Gastrointestinal: denied any nausea, vomiting, diarrhea Pulmonary: Denied any shortness of breath cough Neurologic denied any new focal deficits All inpatient medications were reviewed and appropriate changes in these medications as dictated in the interval history and assessment and plan PHYSICAL EXAMINATION: GENERAL: The patient is alert and oriented x3, not in any acute distress. Well developed, well nourished. HEENT: Pupils are round and equally reacting to light. EOMI. No scleral icterus. No conjunctival pallor. Normocephalic, atraumatic. No pharyngeal erythema. No thyromegaly. CARDIOVASCULAR: S1 and S2 present. No murmurs, rubs, or gallops. PULMONARY: Chest is clear to auscultation, no wheezing or crackles. ABDOMEN: Soft, nontender, nondistended, normoactive bowel sounds. No palpable organomegaly. MUSCULOSKELETAL: No joint swelling or deformity. EXTREMITIES: No cyanosis, clubbing, or pedal edema. NEUROLOGICAL: Gross neurological examination did not reveal any focal deficits. SKIN: No rashes. Assessment Shortness of breath secondary to acute COPD exacerbation and venous congestion. Possible tracheobronchomalacia Mild acute HFpEF Oral thrush Severe hypokalemia with potassium 3.1 on admission Leukocytosis improving Multiple sclerosis with relapsing and remitting and was on IV steroids and multiple medications as an outpatient. Obstructive sleep apnea on CPAP Chronic hypoxic respiratory failure on 2 L oxygen via nasal cannula History of uterine cancer status post hysterectomy and radiation. Anxiety/depression Morbid obesity with BMI 47.8 Trigeminal neuralgia Macrocytosis GERD Memory loss/cognitive impairment Osteoarthritis Anxiety/depression Currently someday smoker Chronic pain on pain clinic follow-up as an outpatient DVT prophylaxis: with Lovenox subcu GI prophylaxis: Protonix Plan Patient will be continued on DuoNebs and Symbicort. Continue the oxygen supplementation. IV Solu-Medrol 60 mg every 6 hourly per pulmonary consider cutting back Check vitamin B12 and folate level patient has been resumed on oral supplementation Status post IV lasix x 1 yesterday with improvement in sodium. Repeat blood work in the AM Echocardiogram pending at this time Start the patient on nystatin oral swish and swallow Repeat blood work in the AM The impression and plan of care has been dictated by Marisela Orona, Nurse Practitioner as directed. Dr. Clary MD I have performed a history and physical examination and medical decision making of this patient, discussed the same with the dictator, and agree with the dictators assessment and plan as written, documented as a scribe. Based on total visit time, I have performed more than 50% of this visit. Objective - Vital Signs Vital signs: Vital Signs Temp 98.4 F 10/19/23 08:00 Pulse 86 10/19/23 14:00 Resp 18 10/19/23 14:00 BP 123/73 10/19/23 12:00 Pulse Ox 98 10/19/23 12:00 FiO2 Intake & Output 10/18/23 10/19/23 10/19/23 18:59 06:59 18:59 Intake Total 340 474 Output Total 300 500 Balance -300 -160 474 Weight 118.5 kg 98.6 kg Intake: Oral 340 474 Output: Urine 300 500 Other: Voiding Method Bedside Commode Toilet Toilet Bedside Commode Bedside Commode # Voids 2 2 # Bowel Movements 1 - Labs CBC & Chem 7: 10/19/23 06:56 10/19/23 06:56 Labs: Abnormal Lab Results - Last 24 Hours (Table) 10/18/23 10/18/23 10/19/23 Range/Units 16:40 20:15 06:07 WBC (3.8-10.6) k/uL Hct (34.0-46.0) % MCV (80.0-100.0) fL MCHC (31.0-37.0) g/dL Neutrophils # (1.3-7.7) k/uL Carbon Dioxide (22-30) mmol/L Glucose (74-99) mg/dL POC Glucose (mg/dL) 176 H 205 H 178 H (70-110) mg/dL Hemoglobin A1c (<=6.0) % 10/19/23 10/19/23 10/19/23 Range/Units 06:56 06:56 06:56 WBC 20.7 H (3.8-10.6) k/uL Hct 51.5 H (34.0-46.0) % MCV 101.7 H (80.0-100.0) fL MCHC 29.4 L (31.0-37.0) g/dL Neutrophils # 18.7 H (1.3-7.7) k/uL Carbon Dioxide 34 H (22-30) mmol/L Glucose 168 H (74-99) mg/dL POC Glucose (mg/dL) (70-110) mg/dL Hemoglobin A1c 6.6 H (<=6.0) % 10/19/23 Range/Units 11:24 WBC (3.8-10.6) k/uL Hct (34.0-46.0) % MCV (80.0-100.0) fL MCHC (31.0-37.0) g/dL Neutrophils # (1.3-7.7) k/uL Carbon Dioxide (22-30) mmol/L Glucose (74-99) mg/dL POC Glucose (mg/dL) 157 H (70-110) mg/dL Hemoglobin A1c (<=6.0) % Microbiology - Last 24 Hours (Table) 10/17/23 20:15 Blood Culture - Preliminary Blood 10/17/23 20:00 Blood Culture - Preliminary Blood Assessment and Plan Time with Patient: Less than 30
[2023-10-19 20:28] LABS: Glucose,Whole Blood 228 mg/dL (70-110)
[2023-10-20 06:04] LABS: Glucose,Whole Blood 133 mg/dL (70-110)
--- NOTE | 2023-10-20 07:37 | CA ---
Transthoracic Echo Report Name: Hudson Hernández Age: 58 Gender: F : 1965 Exam Date: 10/19/2023 12:00 Exam Location: [place] [facility] Ht (in): 62 Wt (lb): 217 Ordering Physician: Juni Rios MD Attending/Referring Phys: Navjot Rayo MD Violin Teacher Mecca Klein RDCS Procedure CPT: Indications: chf Cardiac Hx: Technical Quality: Technically difficult study Contrast 1: Definity Total Dose (mL): 2 Contrast 2: Total Dose (mL): MEASUREMENTS (Male / Female) Normal Values 2D ECHO LV Diastolic Diameter PLAX 4.6 cm 4.2 - 5.9 / 3.9 - 5.3 cm LV Systolic Diameter PLAX 3.7 cm IVS Diastolic Thickness 1.1 cm 0.6 - 1.0 / 0.6 - 0.9 cm LVPW Diastolic Thickness 1.1 cm 0.6 - 1.0 / 0.6 - 0.9 cm LV Relative Wall Thickness 0.5 RV Internal Dim ED PLAX 3.0 cm LV Diastolic Volume MOD BP 139.0 cm??? 67 - 155 / 56 - 104 cm??? LV Systolic Volume MOD BP 73.9 cm??? 22 - 58 / 19 - 49 cm??? LV Ejection Fraction MOD BP 46.9 % >= 55 % LV Cardiac Index MOD BP 2296.5 cm???/min???m??? LV Diastolic Volume MOD 4C 117.0 cm??? LV Systolic Volume MOD 4C 61.4 cm??? LV Ejection Fraction MOD 4C 47.5 % LV Cardiac Index MOD 4C 1960.9 cm???/min???m??? LV Diastolic Length 4C 8.2 cm LV Systolic Length 4C 7.1 cm LV Diastolic Volume MOD 2C 166.3 cm??? LV Systolic Volume MOD 2C 86.2 cm??? LV Ejection Fraction MOD 2C 48.1 % LV Cardiac Index MOD 2C 2822.2 cm???/min???m??? LV Diastolic Length 2C 8.2 cm LV Systolic Length 2C 6.9 cm LA Volume 55.5 cm??? 18 - 58 / 22 - 52 cm??? LA Volume Index 26.1 cm???/m??? 16 - 28 cm???/m??? M-MODE Aortic Root Diameter MM 2.6 cm LA Systolic Diameter MM 3.7 cm LA Ao Ratio MM 1.4 AV Cusp Separation MM 1.9 cm DOPPLER AV Peak Velocity 93.5 cm/s AV Peak Gradient 3.5 mmHg AV Mean Velocity 57.6 cm/s AV Mean Gradient 1.6 mmHg AV Velocity Time Integral 17.8 cm LVOT Peak Velocity 83.0 cm/s LVOT Peak Gradient 2.8 mmHg LVOT Velocity Time Integral 16.7 cm MV Area PHT 3.0 cm??? Mitral E Point Velocity 86.0 cm/s Mitral A Point Velocity 101.5 cm/s Mitral E to A Ratio 0.8 MV Deceleration Time 251.0 ms MV E' Velocity 10.3 cm/s Mitral E to MV E' Ratio 8.3 FINDINGS Left Ventricle Mildly increased left ventricular wall thickness. Mild left ventricular dilatation. Mildly decreased left ventricular ejection fraction. Left ventricular ejection fraction is estimated at 45 %. Grade 1 diastolic dysfunction. Right Ventricle Normal right ventricular size and function. Right ventricular systolic pressure within normal limits. Right Atrium Right atrium not well visualized. Left Atrium Mildly increased left atrial volume. Mildly increased left atrial area. Mitral Valve Structurally normal mitral valve. No mitral stenosis. Mild mitral regurgitation. Aortic Valve Trileaflet aortic valve. No aortic valve stenosis or regurgitation. Tricuspid Valve Structurally normal tricuspid valve. Mild tricuspid regurgitation. Pulmonic Valve Structurally normal pulmonic valve. Trace pulmonic regurgitation. Pericardium No pericardial effusion. Echo free space anterior to the right ventricle likely represents a fat pad. Aorta Normal size aortic root and proximal ascending aorta. CONCLUSIONS Technically difficult study. Definity was used Mildly impaired LV function with EF around 45% Previewed by: Dr. Chris Torre MD (Electronically Signed) Final Date: 20 October 2023 07:36
[2023-10-20 11:07] LABS: Basophils % (A) 0 %; Eosinophils # (A) 0.1 k/uL (0-0.7); Eosinophils % (A) 0 %; HCT 49.9 % (34.0-46.0); HGB 14.8 gm/dL (11.4-16.0); Hypochromasia Moderate; Lymphocytes % (A) 5 %; MCHC 29.7 g/dL (31.0-37.0); MCV 100.9 fL (80.0-100.0); Macrocytosis Slight; Mean Platelet Volume 9.1; Monocytes # (A) 0.9 k/uL (0-1.0); Monocytes % (A) 5 %; Neutrophils # (A) 17.6 k/uL (1.3-7.7); Neutrophils % (A) 90 %; Platelet Count 271 k/uL (150-450); RBC 4.95 m/uL (3.80-5.40); RDW 14.2 % (11.5-15.5); WBC 19.7 k/uL (3.8-10.6)
[2023-10-20 11:22] LABS: African American GFR (CKD) >90 (>60 ml/min/1.73 sqM); Anion Gap 7 mmol/L; Blood Urea Nitrogen 20 mg/dL (7-17); Calcium 9.2 mg/dL (8.4-10.2); Carbon Dioxide 28 mmol/L (22-30); Chloride 105 mmol/L (98-107); Glucose 161 mg/dL (74-99); Non-African American GFR(CKD) >90 (>60 ml/min/1.73 sqM); Sodium 140 mmol/L (137-145)
[2023-10-20 11:24] LABS: Glucose,Whole Blood 160 mg/dL (70-110)
--- NOTE | 2023-10-20 12:57 | P.PN ---
Subjective Progress Note Date: 10/20/23 HISTORY OF PRESENTING ILLNESS 58-year-old female present to the hospital because of worsening shortness of breath. She has a prior history of smoking, COPD, on Trelegy. She also has history of obstructive sleep apnea, multiple sclerosis, relapsing remitting disease maintained on Ocrevus. She has bladder spasms and chronic motor difficulties and lower extremity due to multiple sclerosis. For bladder spasms she recently got Botox injection. She denies any substernal chest pressure or chest pain. On admission her CXR shows mild pulmonary congestion with reducibility effort. BNP elevated at 3120, troponin negative, BUN 12, creatinine 0.4, hemoglobin 14.3. Chest x-ray shows sinus rhythm with no resting ST changes concerning of ischemia 10/18 Patient is seen today in follow up. She states she is feeling tired. + cough. She states she has chest pain with coughing. She is a smoker of 1 ppd. BP 11 7/76, HR 90, PO 97% 2L. She received IV Lasix 40 mg x1 yesterday. Echocardiogram is pending. 10/19 Patient is seen today in follow-up. Echocardiogram reveals mildly impaired LV function with EF of 45%. Technically difficult study. Results of the echocardiogram reviewed with the patient. Patient states that her breathing is okay. She continues to have a cough. She has specifically asked if she needs nitroglycerin which is not necessary at this point. Blood pressure 128/81, heart rate 72, pulse ox 93% on 3 L nasal cannula. Repeat blood work reveals hemoglobin 14.8, WBC 19.7. BUN 20 creatinine 0.6 and potassium 4. PHYSICAL EXAMINATION Vital signs reviewed. Head: Normocephalic. Eyes: Sclerae nonicteric. Neck: Brisk carotid upstroke, no jugular venous distention. Lungs: Reduced inspiratory effort, bilateral crackles. Heart: Regular rate and rhythm, S1-S2, no S3, no murmur or rub. Abdomen: Soft nontender, positive bowel sounds. Extremities: No edema, intact distal pulses. Neuro: Alert, oritented, no focal deficits. Detailed neuro exam was not performed. ASSESSMENT Acute COPD exacerbation Mild HFpEF exacerbation Acute hypoxic respiratory failure Mild cardiomyopathy, unknown if ischemic or nonischemic Obesity ENMANUEL Hypertension Multiple sclerosis, relapsing remitting on Ocrevus Chronic smoker PLAN No need for Lasix Continue verapamil 120 mg and aspirin. No beta-simran at this time due to patient's wheezing/lung condition May consider adding ARB, patient has cough with ANABEL inhibitors in the past Smoking cessation. Patient will be provided [place] quit line information at discharge. Further recommendations as patient progresses. Nurse practitioner note has been reviewed, I agree with documented findings and plan of care. Patient was seen and examined. Objective - Vital Signs Vital signs: Vital Signs Temp 97.9 F 10/20/23 04:00 Pulse 85 10/20/23 08:41 Resp 18 10/20/23 08:00 BP 128/81 10/20/23 08:00 Pulse Ox 93 L 10/20/23 08:00 FiO2 Intake & Output 10/19/23 10/20/23 10/20/23 18:59 06:59 18:59 Intake Total 830 40 378 Balance 830 40 378 Weight 99.2 kg Intake: Oral 830 40 378 Other: Voiding Method Toilet Toilet Toilet Bedside Commode Bedside Commode Bedside Commode # Voids 2 1 1 # Bowel Movements 1 - Labs CBC & Chem 7: 10/20/23 10:50 10/20/23 10:50 Labs: Abnormal Lab Results - Last 24 Hours (Table) 10/19/23 10/19/23 10/19/23 Range/Units 11:24 16:51 20:25 WBC (3.8-10.6) k/uL Hct (34.0-46.0) % MCV (80.0-100.0) fL MCHC (31.0-37.0) g/dL Neutrophils # (1.3-7.7) k/uL POC Glucose (mg/dL) 157 H 130 H 228 H (70-110) mg/dL 10/20/23 10/20/23 Range/Units 06:01 10:50 WBC 19.7 H (3.8-10.6) k/uL Hct 49.9 H (34.0-46.0) % MCV 100.9 H (80.0-100.0) fL MCHC 29.7 L (31.0-37.0) g/dL Neutrophils # 17.6 H (1.3-7.7) k/uL POC Glucose (mg/dL) 133 H (70-110) mg/dL Microbiology - Last 24 Hours (Table) 10/17/23 20:15 Blood Culture - Preliminary Blood 10/17/23 20:00 Blood Culture - Preliminary Blood
--- NOTE | 2023-10-20 13:01 | P.PN ---
Subjective Progress Note Date: 10/20/23 Principal diagnosis: Acute exacerbation of COPD with acute hypoxic respiratory failure This is a 58-year-old female patient was seen emergency department for shortness of breath. The patient is known to have COPD/asthma, and ex-smoker without Trelegy Ellipta on outpatient basis. She also suffers from multiple sclerosis and she has relapsing remitting disease maintained on Ocrevus on outpatient basis. The patient has optic neuritis, chronic motor difficulties in lower ext remities and bladder spasms related to MS and the patient has undergone recent bladder injection with Botox. She has normal to although she does not use them irregular basis. She has also obstructive sleep apnea. She has been utilizing his CPAP on outpatient basis. She comes to the hospital because of increased dyspnea, cough and congestion and wheeze. Limited edema lower extremities bilaterally. The white circles of 10.8 edema 14 and a platelet count of 202. BUN is at 12 with a creatinine of 0.4 and sodium levels of 139 and a procalcitonin level is at 0.17. proBNP level is 3120. Chest x-ray is more consistent with CHF with increased interstitial markings bilaterally. CAT scan of the brain was also done in the emergency department that showed no acute intracranial process. The EKG is showing normal sinus rhythm with a low voltage no acute ischemic changes. Ultrasound of the abdomen the gallbladder was also done that showed no evidence of any acute process. Noted the patient's LFTs are essentially within normal limits. She is currently on oxygen 2 L with a pulse ox of 95%. Patient was evaluated today on 10/19/2023, continues to have intermittent cough, cough is productive with yellow phlegm, no fever no chills no hemoptysis no chest pain. She does have vague aches and pains, and complaining of aching all over. Patient has leukocytosis with WBC count of 20.7 hemoglobin 15.1 electrolytes are normal bicarb is 34, procalcitonin level is elevated at 0.17 chest x-ray on admission showed some bilateral hazy opacities, questionable pneumonitis Patient was evaluated today on 10/20/2023, feeling much better compared to how she felt yesterday. Less cough, less shortness of breath, nonetheless she continues to have intermittent episodes of coughing spells. WBC count remains elevated at 19.7 hemoglobin 14.8 basic metabolic profile is normal and renal profile is normal Objective - Vital Signs Vital signs: Vital Signs Temp 97.9 F 10/20/23 04:00 Pulse 85 10/20/23 08:41 Resp 18 10/20/23 08:00 BP 128/81 10/20/23 08:00 Pulse Ox 93 L 10/20/23 08:00 FiO2 Intake & Output 10/19/23 10/20/23 10/20/23 18:59 06:59 18:59 Intake Total 830 40 378 Balance 830 40 378 Weight 99.2 kg Intake: Oral 830 40 378 Other: Voiding Method Toilet Toilet Toilet Bedside Commode Bedside Commode Bedside Commode # Voids 2 1 1 # Bowel Movements 1 - Exam GENERAL EXAM: 58-year-old female in no distress, on 3 L nasal cannula HEAD: Normocephalic/atraumatic. EYES: Normal reaction of pupils, equal size. Conjunctiva pink, sclera white. NOSE: Clear with pink turbinates. THROAT: No erythema or exudates. NECK: No masses, no JVD, no thyroid enlargement, no adenopathy. CHEST: No chest wall deformity. Symmetrical expansion. LUNGS: Diminished breath sounds at the bases with minimal crackles CVS: Regular rate and rhythm, normal S1 and S2, no gallops, no murmurs, no rubs ABDOMEN: Soft, nontender. No hepatosplenomegaly, normal bowel sounds, no guarding or rigidity. EXTREMITIES: No clubbing, no edema, no cyanosis, 2+ pulses and upper and lower extremities. MUSCULOSKELETAL: Muscle strength and tone normal. SKIN: No rashes CENTRAL NERVOUS SYSTEM: Alert oriented x 3 no gross focal deficit PSYCHIATRIC: Normal mood, affect and no mental status examination - Labs CBC & Chem 7: 10/20/23 10:50 10/20/23 10:50 Labs: Abnormal Lab Results - Last 24 Hours (Table) 10/19/23 10/19/23 10/20/23 Range/Units 16:51 20:25 06:01 WBC (3.8-10.6) k/uL Hct (34.0-46.0) % MCV (80.0-100.0) fL MCHC (31.0-37.0) g/dL Neutrophils # (1.3-7.7) k/uL BUN (7-17) mg/dL Glucose (74-99) mg/dL POC Glucose (mg/dL) 130 H 228 H 133 H (70-110) mg/dL 10/20/23 10/20/23 10/20/23 Range/Units 10:50 10:50 11:23 WBC 19.7 H (3.8-10.6) k/uL Hct 49.9 H (34.0-46.0) % MCV 100.9 H (80.0-100.0) fL MCHC 29.7 L (31.0-37.0) g/dL Neutrophils # 17.6 H (1.3-7.7) k/uL BUN 20 H (7-17) mg/dL Glucose 161 H (74-99) mg/dL POC Glucose (mg/dL) 160 H (70-110) mg/dL Microbiology - Last 24 Hours (Table) 10/17/23 20:15 Blood Culture - Preliminary Blood 10/17/23 20:00 Blood Culture - Preliminary Blood Assessment and Plan Assessment: Impression: Acute exacerbation of COPD/asthma Acute hypoxic respiratory failure secondary to above Possible community-acquired pneumonia based on chest x-ray findings, leukocytosis, and elevated procalcitonin level History of obstructive sleep apnea syndrome Benign essential hypertension Fibromyalgia History of multiple sclerosis Recommendation: Continue antibiotics, add Rocephin to Zithromax Continue bronchodilators Continue gentle diuresis as needed Echocardiogram showed mildly impaired LV function with ejection fraction of 45% Will continue to follow Time with Patient: Less than 30
[2023-10-20] MEDS: DAPAGLIFLOZIN PROPANEDIOL 10 MG TABLET PO SCH (13:23)
[2023-10-20] MEDS: SPIRONOLACTONE 25 MG TAB PO SCH (13:23)
[2023-10-20] MEDS: FUROSEMIDE 20 MG TAB PO SCH (13:23)
[2023-10-20] MEDS ORDERED: IOPAMIDOL CONTRAST (ORAL USE) VIAL PO PRN (13:40)
[2023-10-20] MEDS: IOPAMIDOL CONTRAST (ORAL USE) VIAL PO PRN (15:24)
[2023-10-20 16:26] LABS: Glucose,Whole Blood 128 mg/dL (70-110)
[2023-10-20 17:09] LABS: Amorphous Sediment,Urine Occasional /hpf; Appearance,Urine Cloudy (Clear); Bilirubin,Urine Negative (Negative); Blood,Urine Negative (Negative); Color,Urine Light Yellow; Glucose,Urine (UA) Negative (Negative); Ketones,Urine Negative (Negative); Leukocyte Esterase,Urine Negative (Negative); Mucus,Urine Rare /hpf; Nitrite,Urine Negative (Negative); PH, Urine 7.5 (5.0-8.0); Protein,Urine Negative (Negative); RBC,Urine 1 /hpf (0-5); Specific Gravity,Urine 1.022 (1.001-1.035); Squamous Epithelial Cell,Urine 3 /hpf (0-4); Urobilinogen,Urine <2.0 mg/dL (<2.0); WBC,Urine 1 /hpf (0-5)
--- NOTE | 2023-10-20 18:32 | CT ---
EXAMINATION TYPE: CT abdomen pelvis w con DATE OF EXAM: 10/20/2023 COMPARISON: 03/30/2021 INDICATION: abdominal/pelvic pain DLP: 1631.4 mGycm, Automated exposure control for dose reduction was used. CONTRAST: 100 ml mL of Isovue 300. Study performed with Oral Contrast TECHNIQUE: Axial images were obtained from above the diaphragm to the pubic rami in the axial plane a t 5 mm thick sections. Reconstructed images are reviewed on the computer in the coronal plane. FINDINGS: Limited CT sections are obtained the lung bases. The lung bases are clear. CT ABDOMEN: Liver: There is a hypodense area likely a cyst within the left lobe liver measuring 19 [place] uni ts. There may be a Bran's lobe of the liver. Cranial caudal dimension 22 cm Spleen: Normal Pancreas: Normal Adrenal glands: The adrenal glands are normal. Gallbladder: Normal Kidneys: No masses are evident. No hydronephrosis is present. No cysts are present. Delayed images were obtained through the kidneys, which remain unremarkable. Aorta: Vascular calcification is within the aorta. Inferior vena cava: Normal. CT PELVIS: Loops of bowel within the abdomen and pelvis are normal. Fecal debris fills the ascending colon and extends to the descending colon There are loops of bowel which are incompletely distended or lack o ral contrast limiting their evaluation. Appendix: Normal as visualized. Urinary bladder: Normal. Genitourinary structures: Uterus is not identified. The right ovary may be present with ar 1.4 cm fol licle. Example series 201 image 58. Osseous structures: No suspicious lytic or sclerotic lesions. IMPRESSION: 1. Moderate fecal retention throughout the ascending and transverse colon. No obstruction is identif ied.
[2023-10-20 20:06] LABS: Glucose,Whole Blood 162 mg/dL (70-110)
--- NOTE | 2023-10-20 20:44 | P.PN ---
Subjective Progress Note Date: 10/20/23 Patient is a 58-year-old female with a past medical history of multiple sclerosis, fibromyalgia, COPD on home oxygen as needed, asthma, hearing disorder/deafness, memory impairment, osteoarthritis, obstructive sleep apnea, history of uterine cancer status post hysterectomy/radiation, anxiety/depression and currently light smoker presents to ER with complaints of shortness of breath, generalized weakness and falls. Patient states that her emesis worsening and was seen by her physician about 2 and half weeks ago and felt that she is very sick. She was also treated with steroids as an outpatient. Oth erwise no complaints of chest pain. Patient was short of breath on admission. No nausea vomiting abdominal pain or diarrhea. Patient does have generalized body pains. Chest x-ray showed correlate for mild venous congestion or interstitial pneumonitis. Stable cardiomegaly. CT head showed no acute intracranial process. EKG showed sinus rhythm with low QRS voltage criteria Ultrasound abdomen/gallbladder showed no evidence for acute process. Hepatic steatosis. Hepatomegaly. Simple appearing hepatic cyst. Laboratory data showed WBC 15.7 hemoglobin 14.9 and platelets 276 Sodium 139 potassium 3.1 chloride 96 bicarb is 38 BUN 11 and creatinine 0.48 and blood sugar 114 lactic acid 1.1 magnesium 1.5 and proBNP 3120 2D echocardiogram in 2020 showed preserved EF. 10/19/2023 Patient is evaluated today in follow up. Sitting up in bed. Continues on 2L of oxygen. Remains on IV solumedrol and oral azithromycin. White blood cell count elevated at 20.7 likely from the high dose of steroids. Patient reports improvement in her shortness of breath. Procalcitonin level 0.17. 10/20/2023 Patient is evaluated today on the medical floor. Reports improvement in shortness of breath. IV steroids will be decreased. Patient remains on IV ceftriaxone has completed course of oral azithromycin. Echocardiogram revealing an EF of 45%, cardiology has started the patient on 20 mg oral lasix. Main complaint today is right upper quadrant abdominal pain mostly going on since she recently had botox injections for a prolapsed bladder. Patient is not retaining urine. We will check a CT scan. Review of Systems Constitutional: Denied any fatigue denied any fever. Cardio vascular: denied any chest pain, palpitations Gastrointestinal: denied any nausea, vomiting, diarrhea Reports RUQ abdominal pain Pulmonary: Denied any shortness of breath cough Neurologic denied any new focal deficits All inpatient medications were reviewed and appropriate changes in these medications as dictated in the interval history and assessment and plan PHYSICAL EXAMINATION: GENERAL: The patient is alert and oriented x3, not in any acute distress. Well developed, well nourished. HEENT: Pupils are round and equally reacting to light. EOMI. No scleral icterus. No conjunctival pallor. Normocephalic, atraumatic. No pharyngeal erythema. No thyromegaly. CARDIOVASCULAR: S1 and S2 present. No murmurs, rubs, or gallops. PULMONARY: Chest is clear to auscultation, no wheezing or crackles. ABDOMEN: Soft, RUQ tender, nondistended, normoactive bowel sounds. No palpable organomegaly. MUSCULOSKELETAL: No joint swelling or deformity. EXTREMITIES: No cyanosis, clubbing, or pedal edema. NEUROLOGICAL: Gross neurological examination did not reveal any focal deficits. SKIN: No rashes. Assessment Shortness of breath secondary to acute COPD exacerbation and venous congestion. Possible tracheobronchomalacia Chronic systolic heart failure EF 45% on echocardiogram Abdominal pain under investigation Oral thrush Severe hypokalemia with potassium 3.1 on admission Leukocytosis improving Multiple sclerosis with relapsing and remitting and was on IV steroids and multiple medications as an outpatient. Obstructive sleep apnea on CPAP Chronic hypoxic respiratory failure on 2 L oxygen via nasal cannula History of uterine cancer status post hysterectomy and radiation. Anxiety/depression Morbid obesity with BMI 47.8 Trigeminal neuralgia Macrocytosis GERD Memory loss/cognitive impairment Osteoarthritis Anxiety/depression Currently someday smoker Chronic pain on pain clinic follow-up as an outpatient DVT prophylaxis: with Lovenox subcu GI prophylaxis: Protonix Plan Patient will be continued on DuoNebs and Symbicort. Continue the oxygen supplementation. IV Solu-Medrol 40 Q12h Check vitamin B12 and folate level patient has been resumed on oral supplementation Status post IV lasix x 1 and has been started on lasix 20 mg daily oral. Repeat blood work in the AM Start the patient on nystatin oral swish and swallow Check an abdominal CT for the abdominal pain Repeat blood work in the AM D/C in the next 24 hours The impression and plan of care has been dictated by Marisela Orona Nurse Practitioner as directed. Dr. Clary MD I have performed a history and physical examination and medical decision making of this patient, discussed the same with the dictator, and agree with the dictators assessment and plan as written, documented as a scribe. Based on total visit time, I have performed more than 50% of this visit. Objective - Vital Signs Vital signs: Vital Signs Temp 97.9 F 10/20/23 04:00 Pulse 78 10/20/23 16:28 Resp 18 10/20/23 14:00 BP 126/78 10/20/23 16:00 Pulse Ox 92 L 10/20/23 16:00 FiO2 Intake & Output 10/20/23 10/20/23 10/21/23 06:59 18:59 06:59 Intake Total 40 193 Balance 40 193 Weight 99.2 kg Intake: Oral 40 1935 Other: Voiding Method Toilet Toilet Bedside Commode Bedside Commode # Voids 1 1 - Labs CBC & Chem 7: 10/20/23 10:50 10/20/23 10:50 Labs: Abnormal Lab Results - Last 24 Hours (Table) 10/20/23 10/20/23 10/20/23 Range/Units 06:01 10:50 10:50 WBC 19.7 H (3.8-10.6) k/uL Hct 49.9 H (34.0-46.0) % MCV 100.9 H (80.0-100.0) fL MCHC 29.7 L (31.0-37.0) g/dL Neutrophils # 17.6 H (1.3-7.7) k/uL BUN 20 H (7-17) mg/dL Glucose 161 H (74-99) mg/dL POC Glucose (mg/dL) 133 H (70-110) mg/dL Urine Appearance (Clear) Amorphous Sediment (None) /hpf Urine Mucus (None) /hpf 10/20/23 10/20/23 10/20/23 Range/Units 11:23 14:25 16:24 WBC (3.8-10.6) k/uL Hct (34.0-46.0) % MCV (80.0-100.0) fL MCHC (31.0-37.0) g/dL Neutrophils # (1.3-7.7) k/uL BUN (7-17) mg/dL Glucose (74-99) mg/dL POC Glucose (mg/dL) 160 H 128 H (70-110) mg/dL Urine Appearance Cloudy H (Clear) Amorphous Sediment Occasional H (None) /hpf Urine Mucus Rare H (None) /hpf 10/20/23 Range/Units 20:05 WBC (3.8-10.6) k/uL Hct (34.0-46.0) % MCV (80.0-100.0) fL MCHC (31.0-37.0) g/dL Neutrophils # (1.3-7.7) k/uL BUN (7-17) mg/dL Glucose (74-99) mg/dL POC Glucose (mg/dL) 162 H (70-110) mg/dL Urine Appearance (Clear) Amorphous Sediment (None) /hpf Urine Mucus (None) /hpf Microbiology - Last 24 Hours (Table) 10/17/23 20:15 Blood Culture - Preliminary Blood 10/17/23 20:00 Blood Culture - Preliminary Blood Assessment and Plan Time with Patient: Less than 30
[2023-10-20] MEDS: methylPREDNISolone SOD SUCCI 40 MG/ML 1 ML VIAL IV SCH (21:55)
[2023-10-20] MEDS: bisacodyL 10 MG SUPP RECTAL STA (22:09)
[2023-10-21 06:06] LABS: Glucose,Whole Blood 122 mg/dL (70-110)
[2023-10-21 07:38] LABS: Basophils % (A) 0 %; Eosinophils # (A) 0.1 k/uL (0-0.7); Eosinophils % (A) 0 %; HCT 49.4 % (34.0-46.0); HGB 14.7 gm/dL (11.4-16.0); Hypochromasia Marked; Lymphocytes # (A) 3.3 k/uL (1.0-4.8); Lymphocytes % (A) 20 %; MCH 30.1 pg (25.0-35.0); MCHC 29.7 g/dL (31.0-37.0); MCV 101.3 fL (80.0-100.0); Macrocytosis Slight; Monocytes # (A) 1.1 k/uL (0-1.0); Monocytes % (A) 6 %; Neutrophils # (A) 11.7 k/uL (1.3-7.7); Neutrophils % (A) 72 %; Platelet Count 228 k/uL (150-450); RBC 4.88 m/uL (3.80-5.40); WBC 16.3 k/uL (3.8-10.6)
--- NOTE | 2023-10-21 08:49 | XR ---
EXAMINATION TYPE: XR chest 1V portable DATE OF EXAM: 10/21/2023 8:03 AM CLINICAL INDICATION:Female, 58 years old with history of chf; COMPARISON: Chest radiographs from 10/17/2023 TECHNIQUE: XR chest 1V portable Frontal view of the chest. FINDINGS: Lungs/Pleura: There is no evidence of pleural effusion, focal consolidation, or pneumothorax. Pulmonary vascularity: Unremarkable. Heart/mediastinum: Cardiomediastinal silhouette is enlarged and stable. Musculoskeletal: No acute osseous pathology. Other findings: None IMPRESSION: Mild pulmonary edema and cardiomegaly.
[2023-10-21] MEDS: BENZOCAINE/MENTHOL LOZENG 1 EACH LOZENGE MUCOUS MEM PRN (10:11)
--- NOTE | 2023-10-21 11:37 | P.PN ---
Subjective Progress Note Date: 10/21/23 Principal diagnosis: Acute exacerbation of COPD with acute hypoxic respiratory failure This is a 58-year-old female patient was seen emergency department for shortness of breath. The patient is known to have COPD/asthma, and ex-smoker without Trelegy Ellipta on outpatient basis. She also suffers from multiple sclerosis and she has relapsing remitting disease maintained on Ocrevus on outpatient basis. The patient has optic neuritis, chronic motor difficulties in lower ext remities and bladder spasms related to MS and the patient has undergone recent bladder injection with Botox. She has normal to although she does not use them irregular basis. She has also obstructive sleep apnea. She has been utilizing his CPAP on outpatient basis. She comes to the hospital because of increased dyspnea, cough and congestion and wheeze. Limited edema lower extremities bilaterally. The white circles of 10.8 edema 14 and a platelet count of 202. BUN is at 12 with a creatinine of 0.4 and sodium levels of 139 and a procalcitonin level is at 0.17. proBNP level is 3120. Chest x-ray is more consistent with CHF with increased interstitial markings bilaterally. CAT scan of the brain was also done in the emergency department that showed no acute intracranial process. The EKG is showing normal sinus rhythm with a low voltage no acute ischemic changes. Ultrasound of the abdomen the gallbladder was also done that showed no evidence of any acute process. Noted the patient's LFTs are essentially within normal limits. She is currently on oxygen 2 L with a pulse ox of 95%. Patient was evaluated today on 10/19/2023, continues to have intermittent cough, cough is productive with yellow phlegm, no fever no chills no hemoptysis no chest pain. She does have vague aches and pains, and complaining of aching all over. Patient has leukocytosis with WBC count of 20.7 hemoglobin 15.1 electrolytes are normal bicarb is 34, procalcitonin level is elevated at 0.17 chest x-ray on admission showed some bilateral hazy opacities, questionable pneumonitis Patient was evaluated today on 10/20/2023, feeling much better compared to how she felt yesterday. Less cough, less shortness of breath, nonetheless she continues to have intermittent episodes of coughing spells. WBC count remains elevated at 19.7 hemoglobin 14.8 basic metabolic profile is normal and renal profile is normal Seen today on 10/21/2023, patient is basically about the same. Continues to have intermittent episodes of occasional cough, some shortness of breath, chest x-ray this morning is showing improvement there is possibly very minimal interstitial edema and cardiomegaly, leukocytosis is improving with WBC count of 16.3 blood sugar is 122, patient had an CT of the abdomen pelvis yesterday showing no significant findings except constipation Objective - Vital Signs Vital signs: Vital Signs Temp 98.1 F 10/21/23 10:00 Pulse 60 10/21/23 10:00 Resp 16 10/21/23 10:00 BP 110/79 10/21/23 10:00 Pulse Ox 98 10/21/23 10:00 FiO2 Intake & Output 10/20/23 10/21/23 10/21/23 18:59 06:59 18:59 Intake Total 193 240 Output Total 300 Balance 1936 -300 240 Intake: Oral 1935 240 Output: Urine 300 Other: Voiding Method Toilet Toilet Toilet Bedside Commode Bedside Commode Bedside Commode # Voids 1 2 - Exam GENERAL EXAM: 58-year-old female in no distress, on 2 L nasal cannula with O2 sats of 98% HEAD: Normocephalic/atraumatic. EYES: Normal reaction of pupils, equal size. Conjunctiva pink, sclera white. NOSE: Clear with pink turbinates. THROAT: No erythema or exudates. NECK: No masses, no JVD, no thyroid enlargement, no adenopathy. CHEST: No chest wall deformity. Symmetrical expansion. LUNGS: Diminished breath sounds at the bases no crackles rhonchi or wheezes CVS: Regular rate and rhythm, normal S1 and S2, no gallops, no murmurs, no rubs ABDOMEN: Soft, nontender. No hepatosplenomegaly, normal bowel sounds, no guarding or rigidity. EXTREMITIES: No clubbing, no edema, no cyanosis, 2+ pulses and upper and lower extremities. MUSCULOSKELETAL: Muscle strength and tone normal. SKIN: No rashes CENTRAL NERVOUS SYSTEM: Alert oriented x 3 no gross focal deficit PSYCHIATRIC: Normal mood, affect and no mental status examination - Labs CBC & Chem 7: 10/21/23 07:21 10/20/23 10:50 Labs: Abnormal Lab Results - Last 24 Hours (Table) 10/20/23 10/20/23 10/20/23 Range/Units 14:25 16:24 20:05 WBC (3.8-10.6) k/uL Hct (34.0-46.0) % MCV (80.0-100.0) fL MCHC (31.0-37.0) g/dL Neutrophils # (1.3-7.7) k/uL Monocytes # (0-1.0) k/uL POC Glucose (mg/dL) 128 H 162 H (70-110) mg/dL Urine Appearance Cloudy H (Clear) Amorphous Sediment Occasional H (None) /hpf Urine Mucus Rare H (None) /hpf 10/21/23 10/21/23 Range/Units 06:05 07:21 WBC 16.3 H (3.8-10.6) k/uL Hct 49.4 H (34.0-46.0) % MCV 101.3 H (80.0-100.0) fL MCHC 29.7 L (31.0-37.0) g/dL Neutrophils # 11.7 H (1.3-7.7) k/uL Monocytes # 1.1 H (0-1.0) k/uL POC Glucose (mg/dL) 122 H (70-110) mg/dL Urine Appearance (Clear) Amorphous Sediment (None) /hpf Urine Mucus (None) /hpf Microbiology - Last 24 Hours (Table) 10/17/23 20:15 Blood Culture - Preliminary Blood 10/17/23 20:00 Blood Culture - Preliminary Blood Assessment and Plan Assessment: Impression: Acute exacerbation of COPD/asthma Acute hypoxic respiratory failure secondary to above Possible community-acquired pneumonia based on chest x-ray findings, leukocytosis, and elevated procalcitonin level Suspect interstitial edema as noted on the initial chest x-ray, patient is on diuretics. Echocardiogram showed some LV dysfunction with ejection fraction of 45% History of obstructive sleep apnea syndrome Benign essential hypertension Fibromyalgia History of multiple sclerosis Recommendation: Continue antibiotics, add Rocephin to Zithromax Continue bronchodilators Continue gentle diuresis continue Lasix at 20 mg p.o. daily Echocardiogram showed mildly impaired LV function with ejection fraction of 45% Consider discharge planning in the next 24 hours. Will continue to follow Time with Patient: Less than 30
[2023-10-21 11:39] LABS: Glucose,Whole Blood 112 mg/dL (70-110)
[2023-10-21 11:58] LABS: African American GFR (CKD) 76 (>60 ml/min/1.73 sqM); Anion Gap 4 mmol/L; Blood Urea Nitrogen 19 mg/dL (7-17); Carbon Dioxide 34 mmol/L (22-30); Chloride 103 mmol/L (98-107); Glucose 117 mg/dL (74-99); Non-African American GFR(CKD) 66 (>60 ml/min/1.73 sqM); Potassium 3.7 mmol/L (3.5-5.1); Sodium 141 mmol/L (137-145)
--- NOTE | 2023-10-21 13:22 | P.PN ---
Subjective Progress Note Date: 10/21/23 HISTORY OF PRESENTING ILLNESS 58-year-old female present to the hospital because of worsening shortness of breath. She has a prior history of smoking, COPD, on Trelegy. She also has history of obstructive sleep apnea, multiple sclerosis, relapsing remitting disease maintained on Ocrevus. She has bladder spasms and chronic motor difficulties and lower extremity due to multiple sclerosis. For bladder spasms she recently got Botox injection. She denies any substernal chest pressure or chest pain. On admission her CXR shows mild pulmonary congestion with reducibility effort. BNP elevated at 3120, troponin negative, BUN 12, creatinine 0.4, hemoglobin 14.3. Chest x-ray shows sinus rhythm with no resting ST changes concerning of ischemia 10/18 Patient is seen today in follow up. She states she is feeling tired. + cough. She states she has chest pain with coughing. She is a smoker of 1 ppd. BP 11 7/76, HR 90, PO 97% 2L. She received IV Lasix 40 mg x1 yesterday. Echocardiogram is pending. 10/19 Patient is seen today in follow-up. Echocardiogram reveals mildly impaired LV function with EF of 45%. Technically difficult study. Results of the echocardiogram reviewed with the patient. Patient states that her breathing is okay. She continues to have a cough. She has specifically asked if she needs nitroglycerin which is not necessary at this point. Blood pressure 128/81, heart rate 72, pulse ox 93% on 3 L nasal cannula. Repeat blood work reveals hemoglobin 14.8, WBC 19.7. BUN 20 creatinine 0.6 and potassium 4. 10/20 Patient continues to have a cough and some shortness of breath although improving. Blood pressure 106/74, heart rate 87, pulse ox 95% on 2 L nasal cannula. Repeat blood work reveals WBC 16.3, hemoglobin 14. BUN 19 creatinine 0.95. Potassium 3.7. Yesterday, patient was started on Farxiga and Aldactone. Pulmonary medicine is started the patient on Lasix 20 mg oral daily. PHYSICAL EXAMINATION Vital signs reviewed. Head: Normocephalic. Eyes: Sclerae nonicteric. Neck: Brisk carotid upstroke, no jugular venous distention. Lungs: Reduced inspiratory effort, bilateral crackles. Heart: Regular rate and rhythm, S1-S2, no S3, no murmur or rub. Abdomen: Soft nontender, positive bowel sounds. Extremities: No edema, intact distal pulses. Neuro: Alert, oritented, no focal deficits. Detailed neuro exam was not performed. ASSESSMENT Acute COPD exacerbation Mild HFpEF exacerbation Acute hypoxic respiratory failure Mild cardiomyopathy, unknown if ischemic or nonischemic Obesity ENMANUEL Hypertension Multiple sclerosis, relapsing remitting on Ocrevus Chronic smoker PLAN Pulmonary medicine has started patient on Lasix 20 mg oral daily Continue verapamil 120 mg and aspirin. Continue patient on Farxiga 10 mg daily, Aldactone 25 mg daily. No beta-simran at this time due to patient's wheezing/lung condition May consider adding ARB, patient has cough with ANABEL inhibitors in the past Smoking cessation. Patient will be provided [employer] quit line information at discharge. Monitor for another 24 hours and possible discharge tomorrow Further recommendations as patient progresses. Nurse practitioner note has been reviewed, I agree with documented findings and plan of care. Patient was seen and examined. Objective - Vital Signs Vital signs: Vital Signs Temp 98.1 F 10/21/23 10:00 Pulse 87 10/21/23 12:35 Resp 16 10/21/23 12:35 BP 106/74 10/21/23 12:35 Pulse Ox 95 10/21/23 12:35 FiO2 Intake & Output 10/20/23 10/21/23 10/21/23 18:59 06:59 18:59 Intake Total 1936 240 Output Total 300 Balance 1936 -300 240 Intake: Oral 1936 240 Output: Urine 300 Other: Voiding Method Toilet Toilet Toilet Bedside Commode Bedside Commode Bedside Commode # Voids 1 2 - Labs CBC & Chem 7: 10/21/23 07:21 10/21/23 07:21 Labs: Abnormal Lab Results - Last 24 Hours (Table) 10/20/23 10/20/23 10/20/23 Range/Units 14:25 16:24 20:05 WBC (3.8-10.6) k/uL Hct (34.0-46.0) % MCV (80.0-100.0) fL MCHC (31.0-37.0) g/dL Neutrophils # (1.3-7.7) k/uL Monocytes # (0-1.0) k/uL Carbon Dioxide (22-30) mmol/L BUN (7-17) mg/dL Glucose (74-99) mg/dL POC Glucose (mg/dL) 128 H 162 H (70-110) mg/dL Urine Appearance Cloudy H (Clear) Amorphous Sediment Occasional H (None) /hpf Urine Mucus Rare H (None) /hpf 10/21/23 10/21/23 10/21/23 Range/Units 06:05 07:21 07:21 WBC 16.3 H (3.8-10.6) k/uL Hct 49.4 H (34.0-46.0) % MCV 101.3 H (80.0-100.0) fL MCHC 29.7 L (31.0-37.0) g/dL Neutrophils # 11.7 H (1.3-7.7) k/uL Monocytes # 1.1 H (0-1.0) k/uL Carbon Dioxide 34 H (22-30) mmol/L BUN 19 H (7-17) mg/dL Glucose 117 H (74-99) mg/dL POC Glucose (mg/dL) 122 H (70-110) mg/dL Urine Appearance (Clear) Amorphous Sediment (None) /hpf Urine Mucus (None) /hpf 10/21/23 Range/Units 11:37 WBC (3.8-10.6) k/uL Hct (34.0-46.0) % MCV (80.0-100.0) fL MCHC (31.0-37.0) g/dL Neutrophils # (1.3-7.7) k/uL Monocytes # (0-1.0) k/uL Carbon Dioxide (22-30) mmol/L BUN (7-17) mg/dL Glucose (74-99) mg/dL POC Glucose (mg/dL) 112 H (70-110) mg/dL Urine Appearance (Clear) Amorphous Sediment (None) /hpf Urine Mucus (None) /hpf Microbiology - Last 24 Hours (Table) 10/17/23 20:15 Blood Culture - Preliminary Blood 10/17/23 20:00 Blood Culture - Preliminary Blood
--- NOTE | 2023-10-21 14:24 | P.PN ---
Subjective Progress Note Date: 10/21/23 Patient is a 58-year-old female with a past medical history of multiple sclerosis, fibromyalgia, COPD on home oxygen as needed, asthma, hearing disorder/deafness, memory impairment, osteoarthritis, obstructive sleep apnea, history of uterine cancer status post hysterectomy/radiation, anxiety/depression and currently light smoker presents to ER with complaints of shortness of breath, generalized weakness and falls. Patient states that her emesis worsening and was seen by her physician about 2 and half weeks ago and felt that she is very sick. She was also treated with steroids as an outpatient. Oth erwise no complaints of chest pain. Patient was short of breath on admission. No nausea vomiting abdominal pain or diarrhea. Patient does have generalized body pains. Chest x-ray showed correlate for mild venous congestion or interstitial pneumonitis. Stable cardiomegaly. CT head showed no acute intracranial process. EKG showed sinus rhythm with low QRS voltage criteria Ultrasound abdomen/gallbladder showed no evidence for acute process. Hepatic steatosis. Hepatomegaly. Simple appearing hepatic cyst. Laboratory data showed WBC 15.7 hemoglobin 14.9 and platelets 276 Sodium 139 potassium 3.1 chloride 96 bicarb is 38 BUN 11 and creatinine 0.48 and blood sugar 114 lactic acid 1.1 magnesium 1.5 and proBNP 3120 2D echocardiogram in 2020 showed preserved EF. 10/19/2023 Patient is evaluated today in follow up. Sitting up in bed. Continues on 2L of oxygen. Remains on IV solumedrol and oral azithromycin. White blood cell count elevated at 20.7 likely from the high dose of steroids. Patient reports improvement in her shortness of breath. Procalcitonin level 0.17. 10/20/2023 Patient is evaluated today on the medical floor. Reports improvement in shortness of breath. IV steroids will be decreased. Patient remains on IV ceftriaxone has completed course of oral azithromycin. Echocardiogram revealing an EF of 45%, cardiology has started the patient on 20 mg oral lasix. Main complaint today is right upper quadrant abdominal pain mostly going on since she recently had botox injections for a prolapsed bladder. Patient is not retaining urine. We will check a CT scan. 10/21/2023 Patient is evaluated in follow-up on the medical floor. Patient does report proving her shortness of breath she continues on IV Solu-Medrol 40 mg every 12 hours. Patient continues on oral Lasix daily. Cardiology following closely. Patient is maintained on her dose of home oxygen. Abdominal pelvis CT was completed secondary to reports of continued abdominal discomfort with findings of moderate fecal retention throughout the ascending and transverse colon with no obstructions identified. Review of Systems Constitutional: Denied any fatigue denied any fever. Cardio vascular: denied any chest pain, palpitations Gastrointestinal: denied any nausea, vomiting, diarrhea Reports RUQ abdominal pain Pulmonary: Denied any shortness of breath cough Neurologic denied any new focal deficits All inpatient medications were reviewed and appropriate changes in these medications as dictated in the interval history and assessment and plan PHYSICAL EXAMINATION: GENERAL: The patient is alert and oriented x3, not in any acute distress. Well developed, well nourished. HEENT: Pupils are round and equally reacting to light. EOMI. No scleral icterus. No conjunctival pallor. Normocephalic, atraumatic. No pharyngeal erythema. No thyromegaly. CARDIOVASCULAR: S1 and S2 present. No murmurs, rubs, or gallops. PULMONARY: Chest is clear to auscultation, no wheezing or crackles. ABDOMEN: Soft, RUQ tender, nondistended, normoactive bowel sounds. No palpable organomegaly. MUSCULOSKELETAL: No joint swelling or deformity. EXTREMITIES: No cyanosis, clubbing, or pedal edema. NEUROLOGICAL: Gross neurological examination did not reveal any focal deficits. SKIN: No rashes. Assessment Shortness of breath secondary to acute COPD exacerbation and venous congestion. Possible tracheobronchomalacia Chronic systolic heart failure EF 45% on echocardiogram Abdominal pain due to constipation with retained fecal material noted on CT. Oral thrush Severe hypokalemia with potassium 3.1 on admission Leukocytosis improving Multiple sclerosis with relapsing and remitting and was on IV steroids and multiple medications as an outpatient. Obstructive sleep apnea on CPAP Chronic hypoxic respiratory failure on 2 L oxygen via nasal cannula History of uterine cancer status post hysterectomy and radiation. Anxiety/depression Morbid obesity with BMI 47.8 Trigeminal neuralgia Macrocytosis GERD Memory loss/cognitive impairment Osteoarthritis Anxiety/depression Currently someday smoker Chronic pain on pain clinic follow-up as an outpatient DVT prophylaxis: with Lovenox subcu GI prophylaxis: Protonix Plan Patient will be continued on DuoNebs and Symbicort. Continue the oxygen supplementation. IV Solu-Medrol 40 Q12h Status post IV lasix x 1 and has been started on lasix 20 mg daily oral. Repeat blood work in the AM Start the patient on nystatin oral swish and swallow Start the patient on lactulose twice a day until bowel movement Repeat blood work in the AM D/C in the next 24 hours The impression and plan of care has been dictated by Marisela Orona, Nurse Practitioner as directed. Dr. Clary MD I have performed a history and physical examination and medical decision making of this patient, discussed the same with the dictator, and agree with the dictators assessment and plan as written, documented as a scribe. Based on total visit time, I have performed more than 50% of this visit. Objective - Vital Signs Vital signs: Vital Signs Temp 98.1 F 10/21/23 10:00 Pulse 87 10/21/23 12:35 Resp 16 10/21/23 12:35 BP 106/74 10/21/23 12:35 Pulse Ox 95 10/21/23 12:35 FiO2 Intake & Output 10/20/23 10/21/23 10/21/23 18:59 06:59 18:59 Intake Total 1936 1220 Output Total 300 Balance 1936 -300 1220 Intake: Oral 193 1220 Output: Urine 300 Other: Voiding Method Toilet Toilet Toilet Bedside Commode Bedside Commode Bedside Commode # Voids 1 2 1 # Bowel Movements 1 - Labs CBC & Chem 7: 10/21/23 07:21 10/21/23 07:21 Labs: Abnormal Lab Results - Last 24 Hours (Table) 10/20/23 10/20/23 10/20/23 Range/Units 14:25 16:24 20:05 WBC (3.8-10.6) k/uL Hct (34.0-46.0) % MCV (80.0-100.0) fL MCHC (31.0-37.0) g/dL Neutrophils # (1.3-7.7) k/uL Monocytes # (0-1.0) k/uL Carbon Dioxide (22-30) mmol/L BUN (7-17) mg/dL Glucose (74-99) mg/dL POC Glucose (mg/dL) 128 H 162 H (70-110) mg/dL Urine Appearance Cloudy H (Clear) Amorphous Sediment Occasional H (None) /hpf Urine Mucus Rare H (None) /hpf 10/21/23 10/21/23 10/21/23 Range/Units 06:05 07:21 07:21 WBC 16.3 H (3.8-10.6) k/uL Hct 49.4 H (34.0-46.0) % MCV 101.3 H (80.0-100.0) fL MCHC 29.7 L (31.0-37.0) g/dL Neutrophils # 11.7 H (1.3-7.7) k/uL Monocytes # 1.1 H (0-1.0) k/uL Carbon Dioxide 34 H (22-30) mmol/L BUN 19 H (7-17) mg/dL Glucose 117 H (74-99) mg/dL POC Glucose (mg/dL) 122 H (70-110) mg/dL Urine Appearance (Clear) Amorphous Sediment (None) /hpf Urine Mucus (None) /hpf 10/21/23 Range/Units 11:37 WBC (3.8-10.6) k/uL Hct (34.0-46.0) % MCV (80.0-100.0) fL MCHC (31.0-37.0) g/dL Neutrophils # (1.3-7.7) k/uL Monocytes # (0-1.0) k/uL Carbon Dioxide (22-30) mmol/L BUN (7-17) mg/dL Glucose (74-99) mg/dL POC Glucose (mg/dL) 112 H (70-110) mg/dL Urine Appearance (Clear) Amorphous Sediment (None) /hpf Urine Mucus (None) /hpf Microbiology - Last 24 Hours (Table) 10/17/23 20:15 Blood Culture - Preliminary Blood 10/17/23 20:00 Blood Culture - Preliminary Blood Assessment and Plan Time with Patient: Less than 30
[2023-10-21] MEDS: bisacodyL 10 MG SUPP RECTAL STA (15:47)
[2023-10-21] MEDS: LACTULOSE 20 GM/30 ML CUP PO SCH (15:47)
[2023-10-21 16:30] LABS: Glucose,Whole Blood 113 mg/dL (70-110)
[2023-10-21 20:08] LABS: Glucose,Whole Blood 102 mg/dL (70-110)
[2023-10-22 06:08] LABS: Glucose,Whole Blood 178 mg/dL (70-110)
[2023-10-22 06:54] LABS: Glucose,Whole Blood 146 mg/dL (70-110)
[2023-10-22 07:09] LABS: African American GFR (CKD) >90 (>60 ml/min/1.73 sqM); Anion Gap 6 mmol/L; Blood Urea Nitrogen 15 mg/dL (7-17); Carbon Dioxide 29 mmol/L (22-30); Chloride 102 mmol/L (98-107); Glucose 168 mg/dL (74-99); Non-African American GFR(CKD) >90 (>60 ml/min/1.73 sqM); Potassium 4.3 mmol/L (3.5-5.1); Sodium 137 mmol/L (137-145)
--- NOTE | 2023-10-22 10:44 | P.PN ---
Subjective HISTORY OF PRESENT ILLNESS: Patient examined this morning at the bedside. Patient currently denies chest pain or pressure. She reports improvement in her shortness of breath. Vital signs are stable. PHYSICAL EXAM: VITAL SIGNS: Reviewed. GENERAL: Well-developed in no acute distress. NECK: Supple. No JVD or thyromegaly LUNGS: Respirations even and unlabored. Lungs essentially clear to auscultation bilaterally. HEART: Regular rate and rhythm. S1 and S2 heard. EXTREMITIES: Normal range of motion. No clubbing or cyanosis. Peripheral pul ses intact. No lower extremity edema ASSESSMENT: Acute COPD exacerbation Acute on chronic heart failure with mildly reduced EF, 45% Acute hypoxic respiratory failure requiring supplemental oxygen Mild cardiomyopathy, 45%, ischemic versus nonischemic Hypertension Obstructive sleep apnea Morbid obesity: BMI 40.0 History of multiple sclerosis, relapsing remitting on Ocrevus Nicotine dependence PLAN: Continue current cardiac medications Patient is currently stable from a cardiac standpoint with no further inpatient recommendations Patient to follow-up in the office postdischarge We will sign off. Please reconsult if needed. Nurse practitioner note has been reviewed by physician. Signing provider agrees with the documented findings, assessment, and plan of care documented by [employer] as a scribe. Objective - Vital Signs Vital signs: Vital Signs Temp 98.2 F 10/22/23 08:00 Pulse 82 10/22/23 09:05 Resp 17 10/22/23 08:00 BP 105/73 10/22/23 08:00 Pulse Ox 98 10/22/23 08:44 FiO2 Intake & Output 10/21/23 10/22/23 10/22/23 18:59 06:59 18:59 Intake Total 1580 296 Balance 1580 296 Intake: Oral 1580 296 Other: Voiding Method Toilet Bedside Commode # Voids 1 # Bowel Movements 1 - Labs CBC & Chem 7: 10/21/23 07:21 10/22/23 06:17 Labs: Abnormal Lab Results - Last 24 Hours (Table) 10/21/23 10/21/23 10/21/23 Range/Units 07:21 11:37 16:28 Carbon Dioxide 34 H (22-30) mmol/L BUN 19 H (7-17) mg/dL Glucose 117 H (74-99) mg/dL POC Glucose (mg/dL) 112 H 113 H (70-110) mg/dL 0610/22/23 10/22/23 Range/Units 06:07 06:17 06:53 Carbon Dioxide (22-30) mmol/L BUN (7-17) mg/dL Glucose 168 H (74-99) mg/dL POC Glucose (mg/dL) 178 H 146 H (70-110) mg/dL
[2023-10-22 11:21] LABS: Glucose,Whole Blood 95 mg/dL (70-110)
--- NOTE | 2023-10-22 12:53 | P.PN ---
Subjective Progress Note Date: 10/22/23 This is a 58-year-old female patient was seen emergency department for shortness of breath. The patient is known to have COPD/asthma, and ex-smoker without Trelegy Ellipta on outpatient basis. She also suffers from multiple sclerosis and she has relapsing remitting disease maintained on Ocrevus on outpatient basis. The patient has optic neuritis, chronic motor difficulties in lower extremities and bladder spasms related to MS and the patient has undergone recent bladder injection with Botox. She has normal to although she does not use them irregular basis. She has also obstructive sleep apnea. She has been utilizing his CPAP on outpatient basis. She comes to the hospital because of increased dyspnea, cough and congestion and wheeze. Limited edema lower extremities bilaterally. The white circles of 10.8 edema 14 and a platelet count of 202. BUN is at 12 with a creatinine of 0.4 and sodium levels of 139 and a procalcitonin level is at 0.17. proBNP level is 3120. Chest x-ray is more consistent with CHF with increased interstitial markings bilaterally. CAT scan of the brain was also done in the emergency department that showed no acute intracranial process. The EKG is showing normal sinus rhythm with a low voltage no acute ischemic changes. Ultrasound of the abdomen the gallbladder was also done that showed no evidence of any acute process. Noted the patient's LFTs are essentially within normal limits. She is currently on oxygen 2 L with a pulse ox of 95%. Patient was evaluated today on 10/19/2023, continues to have intermittent cough, cough is productive with yellow phlegm, no fever no chills no hemoptysis no chest pain. She does have vague aches and pains, and complaining of aching all over. Patient has leukocytosis with WBC count of 20.7 hemoglobin 15.1 elec trolytes are normal bicarb is 34, procalcitonin level is elevated at 0.17 chest x-ray on admission showed some bilateral hazy opacities, questionable pneumonitis Patient was evaluated today on 10/20/2023, feeling much better compared to how she felt yesterday. Less cough, less shortness of breath, nonetheless she continues to have intermittent episodes of coughing spells. WBC count remains elevated at 19.7 hemoglobin 14.8 basic metabolic profile is normal and renal profile is normal Seen today on 10/21/2023, patient is basically about the same. Continues to have intermittent episodes of occasional cough, some shortness of breath, chest x-ray this morning is showing improvement there is possibly very minimal interstitial edema and cardiomegaly, leukocytosis is improving with WBC count of 16.3 blood sugar is 122, patient had an CT of the abdomen pelvis yesterday showing no significant findings except constipation The patient is seen today October 22, 2023 in follow-up on the regular medical floor. She is up ambulating in her room. Awake and alert in no acute distress. Maintaining O2 saturations in the 90s on 2 L/min per nasal cannula. Blood cultures revealed no growth. Sodium 137. Potassium 4.3. Bicarb 29. BUN 15. Creatinine 0.71. Glucose 168. She remains on DuoNeb inhalations, Symbicort, Solu-Medrol. NicoDerm patch in place. Antibiotics in the form of ceftriaxone. Objective - Vital Signs Vital signs: Vital Signs Temp 98.2 F 10/22/23 08:00 Pulse 78 10/22/23 12:22 Resp 17 10/22/23 08:00 BP 105/73 10/22/23 08:00 Pulse Ox 98 10/22/23 08:44 FiO2 Intake & Output 10/21/23 10/22/23 10/22/23 18:59 06:59 18:59 Intake Total 1580 296 Balance 1580 296 Intake: Oral 1580 296 Other: Voiding Method Toilet Toilet Bedside Commode # Voids 1 2 # Bowel Movements 1 - Exam GENERAL EXAM: Alert, pleasant 58-year-old female, on 2 L nasal cannula, comfortable in no apparent distress. HEAD: Normocephalic. EYES: Normal reaction of pupils, equal size. NOSE: Clear with pink turbinates. THROAT: No erythema or exudates. NECK: No masses, no JVD. CHEST: No chest wall deformity. LUNGS: Equal air entry with few scattered rhonchi. CVS: S1 and S2 normal with no audible murmur, regular rhythm. ABDOMEN: No hepatosplenomegaly, normal bowel sounds, no guarding or rigidity. SPINE: No scoliosis or deformity SKIN: No rashes CENTRAL NERVOUS SYSTEM: No focal deficits, tone is normal in all 4 extremities. EXTREMITIES: There is no peripheral edema. No clubbing, no cyanosis. Peripheral pulses are intact. - Labs CBC & Chem 7: 10/21/23 07:21 10/22/23 06:17 Labs: Abnormal Lab Results - Last 24 Hours (Table) 10/21/23 10/22/23 10/22/23 Range/Units 16:28 06:07 06:17 Glucose 168 H (74-99) mg/dL POC Glucose (mg/dL) 113 H 178 H (70-110) mg/dL 10/22/23 Range/Units 06:53 Glucose (74-99) mg/dL POC Glucose (mg/dL) 146 H (70-110) mg/dL Assessment and Plan Assessment: Acute exacerbation of COPD/asthma Acute hypoxic respiratory failure secondary to above Possible community-acquired pneumonia based on chest x-ray findings, leukocytosis, and elevated procalcitonin level Suspect interstitial edema as noted on the initial chest x-ray, patient is on diuretics. Echocardiogram showed some LV dysfunction with ejection fraction of 45% History of obstructive sleep apnea syndrome Benign essential hypertension Fibromyalgia History of multiple sclerosis Plan: The patient was seen and evaluated Labs and medications reviewed Stable on 2 L nasal cannula Cleared for discharge from the pulmonary standpoint Continue her home pulmonary medications Complete a prednisone taper Complete a course of antibiotics Follow-up in our office in 1 week I have personally seen and examined the patient, performed the documentation and the assessment and plan as written. Number of minutes spent on the visit: 10.
[2023-10-22 14:43] VITALS: BMI 39.9
[2023-10-22 15:01] VITALS: BP 127/81; RESP 18; TEMP 98.1
[2023-10-22 16:25] VITALS: PULSE 80
[2023-10-22 16:28] LABS: Glucose,Whole Blood 115 mg/dL (70-110)
== END 2023-10-22 18:57 | disposition home health service (06) | DRG 190 ==
LOC: EC 13:54 → 3SCARD 18:07 → 4SSUR 10-21 21:53
PROVIDERS: ADMIT Internal Medicine; ATTEND Internal Medicine
DX: J44.1 Chronic obstructive pulmonary disease with (acute) exacerbation (principal); I50.33 Acute on chronic diastolic (congestive) heart failure; Z68.42 Body mass index [BMI] 45.0-49.9, adult; J96.11 Chronic respiratory failure with hypoxia; J45.901 Unspecified asthma with (acute) exacerbation; B37.0 Candidal stomatitis; H46.9 Unspecified optic neuritis; I42.9 Cardiomyopathy, unspecified; M81.0 Age-related osteoporosis without current pathological fracture; E87.6 Hypokalemia; G35 Multiple sclerosis; G47.33 Obstructive sleep apnea (adult) (pediatric); F32.A Depression, unspecified; F40.240 Claustrophobia; E66.01 Morbid (severe) obesity due to excess calories; M19.90 Unspecified osteoarthritis, unspecified site; R41.3 Other amnesia; F17.210 Nicotine dependence, cigarettes, uncomplicated; K21.9 Gastro-esophageal reflux disease without esophagitis; G50.0 Trigeminal neuralgia; I11.0 Hypertensive heart disease with heart failure; Z90.710 Acquired absence of both cervix and uterus; G25.81 Restless legs syndrome; G89.29 Other chronic pain; H91.90 Unspecified hearing loss, unspecified ear; K59.00 Constipation, unspecified; K76.0 Fatty (change of) liver, not elsewhere classified; I08.1 Rheumatic disorders of both mitral and tricuspid valves; K76.89 Other specified diseases of liver; N32.89 Other specified disorders of bladder; W06.XXXA Fall from bed, initial encounter; Z79.82 Long term (current) use of aspirin; Z79.899 Other long term (current) drug therapy; Z82.49 Family history of ischemic heart disease and other diseases of the circulatory system
CPT/HCPCS: 36415; 70450; 71045; 74177; 76705; 80048; 80053; 81001; 82607; 82747; 83036; 83605; 83735; 83880; 84145; 84484; 85025; 85610; 85730; 87040; 93005; 93306; 94640; 94760; 96361; 96365; 96366; 96367; 96375; 96376; 99285

== ENCOUNTER 2024-03-30 18:25 | Inpatient (IN) | payer MEDICARE, OTHER ==
--- NOTE | 2024-03-30 18:42 | ED ---
Chest Pain HPI - General Chief Complaint: Chest Pain Stated Complaint: Fall, chest pain, tingling, head pain, Time Seen by Provider: 03/30/24 18:40 Source: patient, RN notes reviewed, old records reviewed Mode of arrival: ambulatory Limitations: no limitations - History of Present Illness MD Complaint: chest pain - Related Data Home Medications Medication Instructions Recorded Confirmed Verapamil HCl [Calan] 120 mg PO DAILY 02/20/14 10/17/23 Butalb/APAP/Caff 50-325-40Mg 1 tab PO BID PRN 03/25/17 10/17/23 [Fioricet 50-325-40] Pantoprazole Sodium [Protonix] 40 mg PO BID 10/31/18 10/17/23 Memantine [Namenda] 10 mg PO BID 11/22/18 10/17/23 methocarbamoL [Robaxin-750] 750 mg PO Q8H 04/28/19 10/17/23 Albuterol Sulfate [Ventolin HFA] 2 puff INHALATION RT-QID PRN 08/09/19 10/17/23 Docusate [Colace] 100 mg PO DAILY PRN 01/30/20 10/17/23 Gabapentin 800 mg PO TID 08/21/20 10/17/23 Topiramate [Topamax] 100 mg PO BID 08/21/20 10/17/23 oxyCODONE-APAP 7.5-325MG [Percocet 1 tab PO Q6H PRN 10/30/20 10/17/23 7.5-325 mg] Cholecalciferol [Vitamin D3 (25 50 mcg PO DAILY 06/15/21 10/17/23 Mcg = 1000 Iu)] Fluticasone/Umeclidin/Vilanter 1 puff INHALATION RT-DAILY 06/15/21 10/17/23 [Trelegy Ellipta 200-62.5-25] PARoxetine HCL [Paxil] 40 mg PO DAILY 06/15/21 10/17/23 busPIRone HCl [Buspar] 10 mg PO TID 06/15/21 10/17/23 Ipratropium-Albuterol Nebulize 3 ml INHALATION RT-QID PRN 08/13/21 10/19/23 [Duoneb 0.5 mg-3 mg/3 ml Soln] Aspirin EC [Ecotrin Low Dose] 81 mg PO DAILY 02/09/22 10/17/23 Cetirizine HCl [Zyrtec] 10 mg PO DAILY 10/17/23 10/17/23 LORazepam [Ativan] 1 mg PO TID 10/17/23 10/17/23 Promethazine/Dextromethorphan 5 ml PO Q6H PRN 10/17/23 10/17/23 [Promethazine-Dm 6.25-15 mg/5Ml] Sucralfate [Carafate] 1 gm PO AC-TID 10/17/23 10/17/23 Previous Rx's Medication Instructions Recorded rOPINIRole HCL [Requip] 0.25 mg PO TID #90 tab 01/31/18 Folic Acid 1 mg PO DAILY #30 tab 05/02/19 Dapagliflozin Propanediol [Farxiga] 10 mg PO DAILY #30 tablet 10/22/23 Furosemide [Lasix] 20 mg PO DAILY #30 tab 10/22/23 Spironolactone [Aldactone] 25 mg PO DAILY #30 tablet 10/22/23 cefuroxime axetiL [Ceftin] 500 mg PO BID 3 Days #6 tab 10/22/23 predniSONE 0 mg PO DIRECTED #18 tab 10/22/23 Allergies Allergy/AdvReac Type Severity Reaction Status Date / Time baclofen AdvReac URINARY Verified 03/30/24 18:35 ISSUES dexamethasone [From Decadron] AdvReac "THOMPSON Verified 03/30/24 18:35 SKIN"/DEHYDRATION Review of Systems ROS Statement: Those systems with pertinent positive or pertinent negative responses have been documented in the HPI. ROS Other: All systems not noted in ROS Statement are negative. EKG Findings - EKG Comments: EKG Findings:: EKG is sinus tachycardia 105 [place] 157 QRS 84 QTc 427 - EKG Results: EKG: interpreted by YARIEL Past Medical History Past Medical History: Asthma, Cancer, Heart Failure, COPD, Eye Disorder, Fibromyalgia, GERD/Reflux, Hearing Disorder / Deafness, Hypertension, Memory Impairment, Musculoskeletal Disorder, Neurologic Disorder, Osteoarthritis (OA), Pneumonia, Sleep Apnea/CPAP/BIPAP, Syncope Additional Past Medical History / Comment(s): MS relapsing/remitting type, chronic bilateral eye pain/optic neuritis/ poor vision, cataracts bilaterally, chronic occipital neuralgia, osteoporosis, RLS, chronic hypoxic respiratory failure with home oxygen 2L/NC prn, chronic bronchitis, immunocompromised, elevated blood sugar with steroid use, uterine cancer with hysterectomy/radiation, heart murmur, mild cognitive impairment, chronic vertigo, falls, rheumatic fever as child, tinnitis bilaterally, allergic rhinitis, trigeminal neuralgia. History of Any Multi-Drug Resistant Organisms: None Reported Past Surgical History: Bladder Surgery, Heart Catheterization, Hysterectomy, Tubal Ligation Additional Past Surgical History / Comment(s): Nerve blocks, bladder suspension, fibroid removal. PAIN CLINIC Past Anesthesia/Blood Transfusion Reactions: No Reported Reaction, Postoperative Nausea & Vomiting (PONV) Additional Past Anesthesia/Blood Transfusion Reaction / Comment(s): mild claustrophobia Past Psychological History: Anxiety, Depression Smoking Status: Current some day smoker Past Alcohol Use History: Occasional Past Drug Use History: None Reported - Past Family History Mother Family Medical History: CVA/TIA, Myocardial Infarction ([place]) Additional Family Medical History / Comment(s): Mother is alive at age 75 with history of brain aneurysm, 3 strokes and 2 myocardial infarctions. Brain aneurysms run on mother's side of family Father Family Medical History: Coronary Artery Disease (CAD) Additional Family Medical History / Comment(s): Father at age 72 from a cardiac arrest thought to be due to a myocardial infarction. Sister(s) Family Medical History: No Reported History Additional Family Medical History / Comment(s): Patient has 2 sisters with no major medical problems. Patient does not have any brothers. Patient has 2 adult children with no major medical problems. Patient is only family member with MS. General Exam Limitations: no limitations General appearance: anxious Head exam: Present: atraumatic, normocephalic, normal inspection Eye exam: Present: normal appearance, PERRL, EOMI. Absent: scleral icterus, conjunctival injection, periorbital swelling ENT exam: Present: normal exam, mucous membranes moist Neck exam: Present: normal inspection. Absent: tenderness, meningismus, lymphadenopathy Respiratory exam: Present: normal lung sounds bilaterally. Absent: respiratory distress, wheezes, rales, rhonchi, stridor Cardiovascular Exam: Present: regular rate, normal rhythm, normal heart sounds. Absent: systolic murmur, diastolic murmur, rubs, gallop, clicks GI/Abdominal exam: Present: soft, normal bowel sounds. Absent: distended, tenderness, guarding, rebound, rigid Extremities exam: Present: normal inspection, full ROM, normal capillary refill. Absent: tenderness, pedal edema, joint swelling, calf tenderness Back exam: Present: normal inspection Neurological exam: Present: alert, oriented X3, CN II-XII intact Psychiatric exam: Present: normal affect, normal mood Skin exam: Present: warm, dry, intact, normal color. Absent: rash Course Vital Signs 03/30/24 18:30 Temperature 98.4 F Pulse Rate 121 H Respiratory 20 Rate Blood Pressure 121/83 O2 Sat by Pulse 94 L Oximetry - Reevaluation(s) Reevaluation #1: 03/30/24 18:41 Medical records reviewed Reevaluation #4: Was pt. sent in by a medical professional or institution (ROSA Rubi, STOCK RECEIVER, urgent care, hospital, or long-term...) When possible be specific @ -no Did you speak to anyone other than the patient for history (EMS, parent, family, police, friend...)? What history was obtained from this source @ -no Did you review nursing and triage notes (agree or disagree)? Why? @ -agree Are old charts reviewed (outside hosp., previous admission, EMS record, old EKG, old radiological studies, urgent care reports/EKG's, long-term records)? Report findings @ -yes Differential Diagnosis (chest pain, altered mental status, abdominal pain women, abdominal pain men, vaginal bleeding, weakness, fever, dyspnea, syncope, headache, dizziness, GI bleed, back pain, seizure, CVA, palpatations, mental health, musculoskeletal)? @ -prior EKG interpreted by me (3pts min.). @ -yes X-rays interpreted by me (1pt min.). @ -yes negative for acute disease CT interpreted by me (1pt min.). @ -no U/S interpreted by me (1pt. min.). @ -no What testing was considered but not performed or refused? (CT, X-rays, U/S, labs)? Why? @ -none What meds were considered but not given or refused? Why? @ -none Did you discuss the management of the patient with other professionals (professionals i.e. ROSA Rubi, STOCK RECEIVER, lab, RT, psych nurse, social staff worker, legal examiner, teacher, inshore undersea warfare officer, rn case manager hospice)? Give summary @ -no Was smoking cessation discussed for >3mins.? @ -no Was critical care preformed (if so, how long)? @ -no Were there social determinants of health that impacted care today? How? (Homelessness, low income, unemployed, alcoholism, drug addiction, transportation, low edu. Level, literacy, decrease access to med. care, senior care, rehab)? @ -none Was there de-escalation of care discussed even if they declined (Discuss DNR or withdrawal of care, Hospice)? DNR status @ -no What co-morbidities impacted this encounter? (DM, HTN, Smoking, COPD, CAD, Cancer, CVA, ARF, Chemo, Hep., AIDS, mental health diagnosis, sleep apnea, morbid obesity)? @ -none Was patient admitted / discharged? Hospital course, mention meds given and route, prescriptions, significant lab abnormalities, going to OR and other pertinent info. @ - Undiagnosed new problem with uncertain prognosis? @ -no Drug Therapy requiring intensive monitoring for toxicity (Heparin, Nitro, Insulin, Cardizem)? @ -no Were any procedures done? @ -no Diagnosis/symptom? @ - Acute, or Chronic, or Acute on Chronic? @ -Acute Uncomplicated (without systemic symptoms) or Complicated (systemic symptoms)? @ -Complicated Side effects of treatment? @ -no Exacerbation, Progression, or Severe Exacerbation? @ -exacerbation Poses a threat to life or bodily function? How? (Chest pain, [place], [place], pneumonia, PE, COPD, DKA, ARF, appy, cholecystitis, CVA, Diverticulitis, Homicidal, Suicidal, threat to staff... and all critical care pts) @ -yes Reevaluation #5: Differential Dyspnea: Coronary syndrome, arrhythmia, tamponade, asthma, COPD, pulmonary embolism, pneumonia, pneumothorax, pulmonary effusion, anaphylaxis, diabetic ketoacidosis, flailed chest, pulmonary contusion, diaphragmatic rupture, anemia, neuromuscular, this is not meant to be an all-inclusive list. Differential Chest Pain: Stable Angina, Unstable Angina, STEMI, NSTEMI Aortic Dissection, Pneumothorax, Musculoskeletal, Esophageal Spasm GERD, Cholecystitis, Pancreatitis, Zoster, this is not meant to be an all-inclusive list. Disposition Referrals: Kilo Tabares [Primary Care Provider] - 1-2 days
[2024-03-30 19:05] LABS: Basophils # (A) 0.1 k/uL (0-0.2); Basophils % (A) 0 %; Eosinophils # (A) 0.3 k/uL (0-0.7); Eosinophils % (A) 2 %; HCT 52.8 % (34.0-46.0); HGB 16.4 gm/dL (11.4-16.0); Hypochromasia Slight; Lymphocytes # (A) 3.1 k/uL (1.0-4.8); Lymphocytes % (A) 22 %; MCH 30.6 pg (25.0-35.0); MCHC 31.1 g/dL (31.0-37.0); MCV 98.4 fL (80.0-100.0); Mean Platelet Volume 9.1; Monocytes # (A) 0.9 k/uL (0-1.0); Monocytes % (A) 6 %; Neutrophils # (A) 9.3 k/uL (1.3-7.7); Neutrophils % (A) 67 %; Platelet Count 259 k/uL (150-450); RBC 5.36 m/uL (3.80-5.40); RDW 13.3 % (11.5-15.5); WBC 13.9 k/uL (3.8-10.6)
[2024-03-30 19:18] LABS: ALT 24 U/L (4-34); African American GFR (CKD) >90 (>60 ml/min/1.73 sqM); Albumin 4.6 g/dL (3.5-5.0); Anion Gap 7 mmol/L; Blood Urea Nitrogen 5 mg/dL (7-17); Calcium 9.1 mg/dL (8.4-10.2); Carbon Dioxide 31 mmol/L (22-30); Chloride 101 mmol/L (98-107); Glucose 119 mg/dL (74-99); Non-African American GFR(CKD) >90 (>60 ml/min/1.73 sqM); Partial Thromboplastin Time 23.4 sec (22.0-30.0); Prothrombin Time 11.3 sec (10.0-12.5); Sodium 139 mmol/L (137-145); Total Bilirubin 1.1 mg/dL (0.2-1.3); Total Protein 6.8 g/dL (6.3-8.2)
[2024-03-30 19:21] LABS: AST 31 U/L (14-36); Alkaline Phosphatase 74 U/L (38-126); Magnesium 1.4 mg/dL (1.6-2.3); Potassium 3.4 mmol/L (3.5-5.1)
[2024-03-30] MEDS: IPRATROPIUM-ALBUTEROL 3 ML NEB INHALATION STA ×2 (19:23→20:57)
[2024-03-30 19:25] LABS: NT-Pro-B-Type Natriuretic Pept 30 pg/mL
--- NOTE | 2024-03-30 19:30 | XR ---
EXAMINATION TYPE: XR chest 1V portable DATE OF EXAM: 03/30/2024 7:20 PM COMPARISON: 10/21/2023 CLINICAL INDICATION: Female, 58 years old with history of sob; [facility] TECHNIQUE: XR chest 1V portable Frontal view of the chest. FINDINGS: Lungs/Pleura: There is no evidence of pleural effusion, focal consolidation, or pneumothorax. Pulmonary vascularity: Unremarkable. Heart/mediastinum: Cardiomediastinal silhouette is unremarkable. Musculoskeletal: No acute osseous pathology. IMPRESSION: No acute cardiopulmonary disease/process. [facility], , 03/30/2024 7:28 PM
[2024-03-30] MEDS ORDERED: NALOXONE 0.4 MG/ML 1 ML VIAL IV PRN (19:36)
[2024-03-30] MEDS ORDERED: ONDANSETRON 4 MG/2 ML VIAL IVP PRN (19:36)
[2024-03-30] MEDS: SODIUM CHLORIDE 0.9% 1,000 ML IV STA (19:40)
[2024-03-30] MEDS: MORPHINE SULFATE 4 MG/ML SYRINGE IVP STA (19:44)
[2024-03-30] MEDS: methylPREDNISolone SOD SUCCIN 250 MG in SODIUM CHLORIDE 0.9% 100 ML IVPB STA (19:51)
[2024-03-30] MEDS: SODIUM CHLORIDE 0.9% 1,000 ML IV SCH (19:51)
[2024-03-30] MEDS: methylPREDNISolone SOD SUCCIN 250 MG in SODIUM CHLORIDE 0.9% 100 ML IVPB SCH (19:59)
--- NOTE | 2024-03-30 21:56 | CT ---
EXAMINATION TYPE: CT brain wo con DATE OF EXAM: 03/30/2024 9:50 PM COMPARISON: 10/17/2023. CLINICAL INDICATION: Female, 58 years old with history of ams, pt c.o of chest pain w/ pain in the L arm, SOB TECHNIQUE: Brain: Axial CT images of the brain were obtained with coronal and sagittal reformats created and rev iewed. Contrast used: None. Oral contrast used: None. CT DLP: 1168.4 mGycm, Automated exposure control for dose reduction was used. FINDINGS: Brain: Extra-axial spaces: No abnormal extra-axial fluid collections. Ventricular system: Within normal limits Cerebral parenchyma: No acute intraparenchymal hemorrhage or mass effect. The rosario-white junction is well differentiated. Cerebellum: Unremarkable. Mass effect: No evidence of midline shift. Intracranial vasculature: unremarkable Soft tissues: Normal. Calvarium/osseous structures: No depressed skull fracture. Paranasal sinuses and mastoid air cells: Mild scattered paranasal sinus disease. Visualized orbits: Orbital contents are intact. IMPRESSION: No acute intracranial process. [facility], , 03/30/2024 9:53 PM
[2024-03-31] MEDS: MORPHINE SULFATE 4 MG/ML SYRINGE IV PRN (00:52)
[2024-03-31] MEDS: NICOTINE 14MG/24HR PATCH TRANSDERM SCH (05:28)
[2024-03-31] MEDS: methylPREDNISolone SOD SUCCIN 250 MG in SODIUM CHLORIDE 0.9% 100 ML IVPB SCH (05:38)
[2024-03-31] MEDS: PANTOPRAZOLE 40 MG TABLET PO SCH (05:38)
--- NOTE | 2024-03-31 08:06 | P.CNNES ---
History of Present Illness Consult date: 03/31/24 Reason for Consult: hx. MS, possible exacerbation Chief complaint: "My left arm feels tight. Also I have some pain and numbness in my neck." History of Present Illness: Ms. Hernández is a 58-year-old right-handed -[place] female with history of multiple sclerosis for the past 13 years. She also has a history of asthma as well as uterine cancer, CHF, COPD, fibromyalgia, gastropathy reflux disease, hearing deficiency, hypertension, poor memory, and obstructive sleep apnea for which she is not currently on CPAP. She was admitted to [facility] on March 30, 2024 with symptoms of chest pain and a possible MS exacerbation. She states that she receives Ocrevus for multiple sclerosis and last received this in December. She does note that before that usually after 4 months after receiving Ocrevus, prior to her next dose which is scheduled now for May, she often had will have exacerbations and needs to come into the hospital for steroids. At this time, she does note some chest pain in addition to left arm tightness which appears to be muscle spasms. She also notes numbness in her left neck which appears new. She has some chronic waxing and waning numbness of her left leg. She was given Solu-Medrol 250 mg IV x 1 in the emergency room and is now scheduled for Solu-Medrol 250 mg every 8 hours. She received a CT noncontrast of the head yesterday which was negative and chest x-ray which was negative. Neurology has been consulted for further management recommendations. She also feels like she began to have upper respiratory symptoms last weekend, and subsequently has noted slow progression of her neurologic issues since then. Review of Systems Constitutional: Reports as per HPI, Reports chronic pain, Reports fatigue, Reports malaise Ears, nose, mouth and throat: Reports as per HPI Cardiovascular: Reports chest pain Respiratory: Reports cough Gastrointestinal: Reports abdominal pain Genitourinary: Reports mixed incontinence Musculoskeletal: Reports arm numbness/tingling, Reports neck pain Integumentary: Reports as per HPI Neurological: Reports as per HPI Endocrine: Reports as per HPI Past Medical History Past Medical History: Asthma, Cancer, Heart Failure, COPD, Eye Disorder, Fibromyalgia, GERD/Reflux, Hearing Disorder / Deafness, Hypertension, Memory Impairment, Musculoskeletal Disorder, Neurologic Disorder, Osteoarthritis (OA), Pneumonia, Sleep Apnea/CPAP/BIPAP, Syncope Additional Past Medical History / Comment(s): MS relapsing/remitting type, chronic bilateral eye pain/optic neuritis/ poor vision, cataracts bilaterally, chronic occipital neuralgia, osteoporosis, RLS, chronic hypoxic respiratory failure with home oxygen 2-3L/[place] prn, chronic bronchitis, immunocompromised, elevated blood sugar with steroid use, uterine cancer with hysterectomy/radiation, heart murmur, mild cognitive impairment, chronic vertigo, falls, rheumatic fever as child, tinnitis bilaterally, allergic rhinitis, trigeminal neuralgia. History of Any Multi-Drug Resistant Organisms: None Reported Past Surgical History: Bladder Surgery, Heart Catheterization, Hysterectomy, Tubal Ligation Additional Past Surgical History / Comment(s): Nerve blocks, bladder suspension, fibroid removal. PAIN CLINIC Past Anesthesia/Blood Transfusion Reactions: No Reported Reaction, Postoperative Nausea & Vomiting (PONV) Additional Past Anesthesia/Blood Transfusion Reaction / Comment(s): mild claustrophobia Past Psychological History: Anxiety, Depression Additional Psychological History / Comment(s): Pt resides alone. She uses a cane or walker or wheelchair. She has a private hire nurse aide who organizers her meds in a estate planner but pt takes her own meds, aide assists her with her ADLs. This aide also prepares meals/shopping and cleaning. Pt does not drive, she has her friends take her to appts or sometimes her aide drives her. Smoking Status: Current some day smoker Past Alcohol Use History: None Reported Additional Past Alcohol Use History / Comment(s): Patient started smoking at age 18 and has smoked on and off since then. Past Drug Use History: None Reported Additional Drug Use History / Comment(s): CBD oils for her knee pain. - Past Family History Mother Family Medical History: CVA/TIA, Myocardial Infarction ([place]) Additional Family Medical History / Comment(s): Mother is alive at age 75 with history of brain aneurysm, 3 strokes and 2 myocardial infarctions. Brain aneurysms run on mother's side of family Father Family Medical History: Coronary Artery Disease (CAD) Additional Family Medical History / Comment(s): Father at age 72 from a cardiac arrest thought to be due to a myocardial infarction. Sister(s) Family Medical History: No Reported History Additional Family Medical History / Comment(s): Patient has 2 sisters with no major medical problems. Patient does not have any brothers. Patient has 2 adult children with no major medical problems. Patient is only family member with MS. Medications and Allergies Home Medications Medication Instructions Recorded Confirmed Type Verapamil HCl [Calan] 120 mg PO DAILY 02/20/14 03/30/24 History Butalb/APAP/Caff 50-325-40Mg 1 tab PO TID 03/25/17 03/30/24 History [Fioricet 50-325-40] rOPINIRole HCL [Requip] 0.25 mg PO TID #90 tab 01/31/18 03/30/24 Rx Pantoprazole Sodium [Protonix] 40 mg PO BID 10/31/18 03/30/24 History Memantine [Namenda] 10 mg PO BID 11/22/18 03/30/24 History methocarbamoL [Robaxin-750] 750 mg PO Q8H 04/28/19 03/30/24 History Folic Acid 1 mg PO DAILY #30 tab 05/02/19 03/30/24 Rx Albuterol Sulfate [Ventolin HFA] 2 puff INHALATION RT-QID PRN 08/09/19 03/30/24 History Docusate [Colace] 100 mg PO DAILY PRN 01/30/20 03/30/24 History Gabapentin 800 mg PO TID 08/21/20 03/30/24 History Topiramate [Topamax] 100 mg PO BID 08/21/20 03/30/24 History oxyCODONE-APAP 7.5-325MG [Percocet 1 tab PO QID 10/30/20 03/30/24 History 7.5-325 mg] Cholecalciferol [Vitamin D3 (25 50 mcg PO DAILY 06/15/21 03/30/24 History Mcg = 1000 Iu)] Fluticasone/Umeclidin/Vilanter 1 puff INHALATION RT-DAILY 06/15/21 03/30/24 History [Trelegy Ellipta 200-62.5-25] PARoxetine HCL [Paxil] 40 mg PO DAILY 06/15/21 03/30/24 History Ipratropium-Albuterol Nebulize 3 ml INHALATION RT-QID PRN 08/13/21 03/30/24 History [Duoneb 0.5 mg-3 mg/3 ml Soln] Aspirin EC [Ecotrin Low Dose] 81 mg PO DAILY 02/09/22 03/30/24 History Cetirizine HCl [Zyrtec] 10 mg PO DAILY 10/17/23 03/30/24 History LORazepam [Ativan] 1 mg PO TID 10/17/23 03/30/24 History Sucralfate [Carafate] 1 gm PO ACHS 10/17/23 03/30/24 History Dapagliflozin Propanediol [Farxiga] 10 mg PO DAILY #30 tablet 10/22/23 03/30/24 Rx Spironolactone [Aldactone] 25 mg PO DAILY #30 tablet 10/22/23 03/30/24 Rx Furosemide [Lasix] 20 mg PO BID 03/30/24 03/30/24 History Allergies Allergy/AdvReac Type Severity Reaction Status Date / Time baclofen AdvReac URINARY Verified 03/30/24 19:08 ISSUES dexamethasone [From Decadron] AdvReac "THOMPSON Verified 03/30/24 19:08 SKIN"/DEHYDRATION Physical Examination - Vital Signs Vital Signs: Vital Signs Temp Pulse Pulse Resp BP BP Pulse Ox 03/31/24 07:00 97.9 F 63 16 163/78 96 03/31/24 02:00 98.2 F 104 H 19 118/82 93 L 03/31/24 01:51 19 03/30/24 23:33 80 17 101/66 90 L 03/30/24 21:00 93 18 125/80 95 03/30/24 19:30 101 H 18 119/83 95 03/30/24 19:25 107 H 03/30/24 18:30 98.4 F 121 H 20 121/83 94 L Intake and Output 03/30/24 03/31/24 03/31/24 22:59 06:59 14:59 Output Total 100 Balance -100 Output: Urine 100 Other: Voiding Method External Catheter Weight 96.615 kg 96.615 kg - Constitutional General appearance: average body habitus - EENT EENT: PERRL - Respiratory Respiratory: chest non-tender, lungs clear, normal breath sounds - Cardiovascular Cardiovascular: regular rate, no murmurs Extremities: no peripheral edema bilaterally, no clubbing, cyanosis - Gastrointestinal Gastrointestinal: normoactive bowel sounds, soft, non-tender - Integumentary Integumentary: normal - Neurologic Cranial nerve examination: PERRL, EOMI, V1/V2/V3 grossly intact, face symmetric Speech examination: other (Patient exhibits a stuttering quality to her speech with difficulty recalling specific items of her history. However she is able to name, repeat, comprehend both simple and complex commands, which does not suggest any evidence of aphasia.) Sensorimotor examination: other (The patient has roughly 5- out of 5 strength in her upper extremities bilaterally. Lower extremities are approximately 4+ out of 5 bilaterally. On sensory examination she does endorse numbness of her left leg greater than right leg and also notes some numbness to the left side of her neck. Howeve) Reflex and gait examination: intact Results Noncontrast CT of the head from March 30 was read as no acute abnormalities. Chest x-ray was also read as negative and EKG reveals tachycardia at 105 bpm. - Laboratory Findings CBC and BMP: 03/30/24 18:54 03/30/24 18:54 Abnormal Lab Findings: Abnormal Labs 03/30/24 03/30/24 18:54 18:54 WBC 13.9 H Hgb 16.4 H Hct 52.8 H Neutrophils # 9.3 H Potassium 3.4 L Carbon Dioxide 31 H BUN 5 L Glucose 119 H Magnesium 1.4 L Assessment and Plan Assessment: Ms. Hernández is a 58-year-old right-handed -[place] female with history of multiple sclerosis. She notes that she may have exacerbations after she has received her Ocrevus approximately 4 months ago. She is currently reporting symptoms of chest pain as well as left arm muscle spasms and left neck pain. Her exam reveals some generalized weakness of her lower extremities greater than upper extremities and she endorses chronic numbness to her left lower extremity. She has received Solu-Medrol 250 mg x 2 and is currently on a dosing schedule of 250 mg every 8 hours. She may have suffered and multiple sclerosis exacerbation. Plan: 1. I have changed her dosing of Solu-Medrol to 500 mg every 12 hours. She should continue receiving this for approximately 3 days at least for multiple sclerosis exacerbation. 2. I have ordered an MRI of the brain with and without contrast to screen for enhancing lesions which would suggest active multiple sclerosis. 3. The patient is due for an Ocrevus infusion of May 2024, and this is her preventative multiple sclerosis medication. 4. She is currently receiving gabapentin 800 mg 3 times daily for nerve pain as well as topiramate 100 mg twice daily. 5. The patient also receives Requip 0.25 mg 3 times daily for diagnosis of restless leg syndrome. 6. The patient also endorses muscle spasms of her left arm. I have not ordered muscle relaxant at this time but if she continues to have this I may order tizanidine starting tomorrow. 7. Neurology will continue to follow her in house, and make further recommendations as needed. Time with Patient: Greater than 30
[2024-03-31] MEDS: ALBUTEROL NEBULIZED 2.5 MG/3 ML INHALATION PRN (08:19)
[2024-03-31] MEDS: SYMBICORT 80-4.5 MCG INHALER INHALATION SCH (08:20)
[2024-03-31] MEDS ORDERED: VERAPAMIL 40 MG TAB PO SCH (09:00)
[2024-03-31] MEDS: BUTALB/APAP/CAFF 50-325-40MG TAB PO PRN (09:11)
[2024-03-31] MEDS: DOCUSATE 100 MG CAP PO PRN (09:12)
[2024-03-31] MEDS: methocarbamoL 750 MG TAB PO PRN (09:12)
[2024-03-31] MEDS: GABAPENTIN 400 MG CAP PO SCH (09:12)
[2024-03-31] MEDS: PARoxetine 20 MG TAB PO SCH (09:13)
[2024-03-31] MEDS: VERAPAMIL SR 120 MG TABLET.ER PO SCH (09:13)
[2024-03-31] MEDS: CHOLECALCIFEROL 25 MCG (1000 IU) TABLET PO SCH (09:13)
[2024-03-31] MEDS: ASPIRIN 81 MG PO SCH (09:13)
[2024-03-31] MEDS: oxyCODONE-APAP 7.5-325MG 1 EACH TAB PO PRN (09:13)
[2024-03-31] MEDS: TOPIRAMATE 100 MG TAB PO SCH (09:14)
[2024-03-31] MEDS: MEMANTINE 10 MG TAB PO SCH (09:14)
[2024-03-31] MEDS: FUROSEMIDE 20 MG TAB PO SCH (09:14)
[2024-03-31] MEDS: DAPAGLIFLOZIN PROPANEDIOL 10 MG TABLET PO SCH (09:14)
[2024-03-31] MEDS: LORATADINE 10 MG TAB PO SCH (09:14)
[2024-03-31] MEDS: SUCRALFATE 1 GM TAB PO SCH (09:14)
[2024-03-31] MEDS: FOLIC ACID 1 MG TAB PO SCH (09:14)
[2024-03-31] MEDS: SPIRONOLACTONE 25 MG TAB PO SCH (09:14)
[2024-03-31 10:31] LABS: ALT 19 U/L (8-44); AST 15 U/L (13-35); Albumin 4.2 g/dL (3.8-4.9); Alkaline Phosphatase 74 U/L (41-126); Blood Urea Nitrogen 5.1 mg/dL (9.0-27.0); Chloride 100 mmol/L (96-109); Globulin 1.5 g/dL (1.6-3.3); Glucose 130 mg/dL (70-110); Magnesium 1.6 mg/dL (1.5-2.4); Phosphorus 5.1 mg/dL (2.4-5.1); Potassium 3.6 mmol/L (3.5-5.5); Sodium 143 mmol/L (135-145); Total Bilirubin 0.4 mg/dL (0.3-1.2); Total Protein 5.7 g/dL (6.2-8.2)
[2024-03-31 10:38] LABS: Basophils # (A) 0.02 X 10*3/uL (0.00-0.10); Basophils % (A) 0.2 %; Eosinophils # (A) 0 X 10*3/uL (0.04-0.35); Eosinophils % (A) 0 %; HCT 52.2 % (37.2-46.3); HGB 16.2 g/dL (12.0-15.0); Lymphocytes % (A) 11.6 %; MCH 30.7 pg (27.0-32.0); MCV 99.1 FL (80.0-97.0); Mean Platelet Volume 11.2 FL (9.5-12.2); Monocytes # (A) 0.16 X 10*3/uL (0.20-1.00); Monocytes % (A) 1.7 %; NRBC Per 100 WBC 0 X 10*3/uL (0.00-0.01); Neutrophils % (A) 86.2 %; Platelet Count 255 X 10*3/uL (140-440); RBC 5.27 X 10*6/uL (4.10-5.20); RDW 13.4 % (11.5-14.5); WBC 9.51 X 10*3/uL (4.50-10.00)
[2024-03-31] MEDS: LORazepam 1 MG TAB PO SCH (13:25)
[2024-03-31] MEDS: methylPREDNISolone SOD SUCCIN 500 MG in SODIUM CHLORIDE 0.9% 100 ML IVPB SCH (13:25)
[2024-03-31 13:30] LABS: Glucose,Whole Blood 112 mg/dL (70-110)
--- NOTE | 2024-03-31 13:48 | P.CRDCN ---
History of Present Illness Consult date: 03/31/24 Requesting physician: Evie Peterson Reason for Consult (text): chest pain Chief complaint: arm tightness, tingling History of present illness: This is a pleasant 58-year-old female patient who does not follow regularly with cardiology with past medical history of smoking, COPD, obstructive sleep apnea, multiple sclerosis. Most recently hospitalized in October at which time our service saw her and she underwent echocardiogram that showed an EF of 45%. Her NT proBNP at that time was elevated. She did not follow-up in the office. Presented to the hospital with complaints of feeling as if she is having an MS exacerbation. She has been complaining of some left arm tightness and tingling as well as some discomfort in the chest. Her symptoms worsen with certain positions especially when laying on the left side. She is not very active due to her MS and does have some mild dyspnea on exertion that is been stable.. Diagnostics -EKG: Sinus rhythm -Chest x-ray: No acute cardiopulmonary disease/process -Brain CT: No acute intracranial process -Laboratory studies: Sodium 143, potassium 3.6, BUN 5, creatinine 0.58, troponin negative x 1, NT proBNP 30. -Home cardiac medications: Verapamil 120 mg p.o. daily, Aldactone 25 mg p.o. daily, furosemide 20 mg p.o. twice daily, Farxiga 10 mg daily, and aspirin 81 mg p.o. daily -Prior stress test: Patient denies -Echocardiogram: October 2023 ejection fraction 45% -Cardiac catheterization: Patient denies Review Of Systems: At the time of my exam: CONSTITUTIONAL: Denies fever or chills. HEENT: Denies blurred vision, vision changes. CARDIOVASCULAR: Denies chest pain. Denies orthopnea. Denies PND. Denies palpitations, dizziness, or syncope. RESPIRATORY: Stable dyspnea on exertion denies wheezing, or cough. Denies hemoptysis. GASTROINTESTINAL: Denies abdominal pain. Denies nausea or vomiting. Denies bleeding. HEMATOLOGIC: Denies bleeding disorders. GENITOURINARY: Denies hematuria. SKIN: Denies puritis. Denies rash. PHYSICAL EXAMINATION: This is a 58-year-old female in no apparent distress at the time of my examination. VITAL SIGNS: Reviewed. HEENT: Head is atraumatic, normocephalic. Pupils are equal, round. Sclerae anicteric. Conjunctivae are clear. Mucous membranes of the mouth are moist. Neck is supple. There is no elevated jugular venous pressure. No carotid bruit is heard. CHEST EXAMINATION: Clear to auscultation bilaterally. No wheezes rales or rhonchi. Respirations even and nonlabored. HEART EXAMINATION: Heart regular, positive S1 and S2. No S3. No S4. No clicks, rubs or murmurs. ABDOMEN: Soft, nontender. Bowel sounds are heard. No organomegaly noted. EXTREMITIES: 2+ peripheral pulses with no evidence of peripheral edema and no calf tenderness noted. NEUROLOGIC EXAMINATION: Patient is awake, alert and oriented x3. Assessment: 1. Chest pain and left arm tightness, atypical for angina, acute coronary event has been ruled out 2. Mild cardiomyopathy, NT proBNP normal at this time 3. Hypertension 4. Multiple sclerosis Plan: From cardiology's perspective chest pain and left arm tightness do not appear to be cardiac in nature. No further cardiac workup at this time. At this time we will follow the patient on an as-needed basis. She will follow-up in the office with Dr. Diehl in 1 to 2 weeks. Thank you kindly for this consultation. Nurse practitioner note has been reviewed, I agree with documented findings and plan of care. Patient was seen and examined. Past Medical History Past Medical History: Asthma, Cancer, Heart Failure, COPD, Eye Disorder, Fibromyalgia, GERD/Reflux, Hearing Disorder / Deafness, Hypertension, Memory Impairment, Musculoskeletal Disorder, Neurologic Disorder, Osteoarthritis (OA), Pneumonia, Sleep Apnea/CPAP/BIPAP, Syncope Additional Past Medical History / Comment(s): MS relapsing/remitting type, chronic bilateral eye pain/optic neuritis/ poor vision, cataracts bilaterally, chronic occipital neuralgia, osteoporosis, RLS, chronic hypoxic respiratory failure with home oxygen 2-3L/NC prn, chronic bronchitis, immunocompromised, elevated blood sugar with steroid use, uterine cancer with hysterec priscilla/radiation, heart murmur, mild cognitive impairment, chronic vertigo, falls, rheumatic fever as child, tinnitis bilaterally, allergic rhinitis, trigeminal neuralgia. History of Any Multi-Drug Resistant Organisms: None Reported Past Surgical History: Bladder Surgery, Heart Catheterization, Hysterectomy, Tubal Ligation Additional Past Surgical History / Comment(s): Nerve blocks, bladder suspension, fibroid removal. [facility] Past Anesthesia/Blood Transfusion Reactions: No Reported Reaction, Postoperative Nausea & Vomiting (PONV) Additional Past Anesthesia/Blood Transfusion Reaction / Comment(s): mild claustrophobia Past Psychological History: Anxiety, Depression Additional Psychological History / Comment(s): Pt resides alone. She uses a cane or walker or wheelchair. She has a private hire nurse aide who organizers her meds in a corporate meeting planner but pt takes her own meds, aide assists her with her ADLs. This aide also prepares meals/shopping and cleaning. Pt does not drive, she has her friends take her to [employer] or sometimes her aide drives her. Smoking Status: Current some day smoker Past Alcohol Use History: None Reported Additional Past Alcohol Use History / Comment(s): Patient started smoking at age 18 and has smoked on and off since then. Past Drug Use History: None Reported Additional Drug Use History / Comment(s): CBD oils for her knee pain. - Past Family History Mother Family Medical History: CVA/TIA, Myocardial Infarction ([place]) Additional Family Medical History / Comment(s): Mother is alive at age 75 with history of brain aneurysm, 3 strokes and 2 myocardial infarctions. Brain aneurysms run on mother's side of family Father Family Medical History: Coronary Artery Disease (CAD) Additional Family Medical History / Comment(s): Father at age 72 from a cardiac arrest thought to be due to a myocardial infarction. Sister(s) Family Medical History: No Reported History Additional Family Medical History / Comment(s): Patient has 2 sisters with no major medical problems. Patient does not have any brothers. Patient has 2 adult children with no major medical problems. Patient is only family member with MS. Medications and Allergies Home Medications Medication Instructions Recorded Confirmed Type Verapamil HCl [Calan] 120 mg PO DAILY 02/20/14 03/30/24 History Butalb/APAP/Caff 50-325-40Mg 1 tab PO TID 03/25/17 03/30/24 History [Fioricet 50-325-40] rOPINIRole HCL [Requip] 0.25 mg PO TID #90 tab 01/31/18 03/30/24 Rx Pantoprazole Sodium [Protonix] 40 mg PO BID 10/31/18 03/30/24 History Memantine [Namenda] 10 mg PO BID 11/22/18 03/30/24 History methocarbamoL [Robaxin-750] 750 mg PO Q8H 04/28/19 03/30/24 History Folic Acid 1 mg PO DAILY #30 tab 05/02/19 03/30/24 Rx Albuterol Sulfate [Ventolin HFA] 2 puff INHALATION RT-QID PRN 08/09/19 03/30/24 History Docusate [Colace] 100 mg PO DAILY PRN 01/30/20 03/30/24 History Gabapentin 800 mg PO TID 08/21/20 03/30/24 History Topiramate [Topamax] 100 mg PO BID 08/21/20 03/30/24 History oxyCODONE-APAP 7.5-325MG [Percocet 1 tab PO QID 10/30/20 03/30/24 History 7.5-325 mg] Cholecalciferol [Vitamin D3 (25 50 mcg PO DAILY 06/15/21 03/30/24 History Mcg = 1000 Iu)] Fluticasone/Umeclidin/Vilanter 1 puff INHALATION RT-DAILY 06/15/21 03/30/24 History [Trelegy Ellipta 200-62.5-25] PARoxetine HCL [Paxil] 40 mg PO DAILY 06/15/21 03/30/24 History Ipratropium-Albuterol Nebulize 3 ml INHALATION RT-QID PRN 08/13/21 03/30/24 Hist ory [Duoneb 0.5 mg-3 mg/3 ml Soln] Aspirin EC [Ecotrin Low Dose] 81 mg PO DAILY 02/09/22 03/30/24 History Cetirizine HCl [Zyrtec] 10 mg PO DAILY 10/17/23 03/30/24 History LORazepam [Ativan] 1 mg PO TID 10/17/23 03/30/24 History Sucralfate [Carafate] 1 gm PO ACHS 10/17/23 03/30/24 History Dapagliflozin Propanediol [Farxiga] 10 mg PO DAILY #30 tablet 10/22/23 03/30/24 Rx Spironolactone [Aldactone] 25 mg PO DAILY #30 tablet 10/22/23 03/30/24 Rx Furosemide [Lasix] 20 mg PO BID 03/30/24 03/30/24 History Allergies Allergy/AdvReac Type Severity Reaction Status Date / Time baclofen AdvReac URINARY Verified 03/30/24 19:08 ISSUES dexamethasone [From Decadron] AdvReac "THOMPSON Verified 03/30/24 19:08 SKIN"/DEHYDRATION Physical Exam Vitals: Vital Signs Temp Pulse Pulse Resp BP BP Pulse Ox 03/31/24 11:52 76 03/31/24 08:41 70 03/31/24 08:20 74 03/31/24 07:00 97.9 F 63 16 163/78 96 03/31/24 02:00 98.2 F 104 H 19 118/82 93 L 03/31/24 01:51 19 03/30/24 23:33 80 17 101/66 90 L 03/30/24 21:00 93 18 125/80 95 03/30/24 19:30 101 H 18 119/83 95 03/30/24 19:25 107 H 03/30/24 18:30 98.4 F 121 H 20 121/83 94 L Intake and Output 03/30/24 03/31/24 03/31/24 22:59 06:59 14:59 Output Total 100 Balance -100 Output: Urine 100 Other: Voiding Method External Catheter Weight 96.615 kg 96.615 kg Results 03/31/24 05:04 03/31/24 05:04 Cardiac Enzymes 03/30/24 03/30/24 03/31/24 Range/Units 18:54 18:54 05:04 AST 31 15 (14-36) U/L Troponin I <0.012 (0.000-0.034) ng/mL Coagulation 03/30/24 Range/Units 18:54 PT 11.3 (10.0-12.5) sec APTT 23.4 (22.0-30.0) sec CBC 03/30/24 03/31/24 Range/Units 18:54 05:04 WBC 13.9 H 9.51 (3.8-10.6) k/uL RBC 5.36 5.27 H (3.80-5.40) m/uL Hgb 16.4 H 16.2 H (11.4-16.0) gm/dL Hct 52.8 H 52.2 H (34.0-46.0) % Plt Count 259 255 (150-450) k/uL Comprehensive Metabolic Panel 03/30/24 03/31/24 Range/Units 18:54 05:04 Sodium 139 143 (137-145) mmol/L Potassium 3.4 L 3.6 (3.5-5.1) mmol/L Chloride 101 100 (98-107) mmol/L Carbon Dioxide 31 H 28.0 (22-30) mmol/L BUN 5 L 5.1 L (7-17) mg/dL Creatinine 0.58 0.5 L (0.52-1.04) mg/dL Glucose 119 H 130 H (74-99) mg/dL Calcium 9.1 9.0 (8.4-10.2) mg/dL AST 31 15 (14-36) U/L ALT 24 19 (4-34) U/L Alkaline Phosphatase 74 74 (38-126) U/L Total Protein 6.8 5.7 L (6.3-8.2) g/dL Albumin 4.6 4.2 (3.5-5.0) g/dL Current Medications Generic Name Dose Route Start Last Admin Trade Name Freq PRN Reason Stop Dose Admin Acetaminophen/Butalbital/Caffeine 1 each 03/31/24 05:14 03/31/24 09:11 Butalb/Apap/Caff 50-325-40mg Tab PO 1 each TID PRN Administration Pain Albuterol Sulfate 2.5 mg 03/31/24 05:14 03/31/24 08:19 Albuterol Nebulized 2.5 Mg/3 Ml INHALATION 2.5 mg RT-QID PRN Administration Shortness Of Breath Albuterol/Ipratropium 3 ml 03/31/24 05:14 Ipratropium-Albuterol 3 Ml Neb INHALATION RT-QID PRN Shortness Of Breath Aspirin 81 mg 03/31/24 09:00 03/31/24 09:13 Aspirin 81 Mg PO 81 mg DAILY ANDREAS Administration Budesonide/Formoterol Fumarate 2 puff 03/31/24 08:00 03/31/24 08:20 Symbicort 80-4.5 Mcg Inhaler INHALATION 2 puff RT-BID ANDREAS Administration Cholecalciferol 50 mcg 03/31/24 09:00 03/31/24 09:13 Cholecalciferol 25 Mcg (1000 Iu) Tablet PO 50 mcg DAILY ANDREAS Administration Dapagliflozin 10 mg 03/31/24 09:00 03/31/24 09:14 Dapagliflozin Propanediol 10 Mg Tablet PO 10 mg DAILY ANDREAS Administration Docusate Sodium 100 mg 03/31/24 05:14 03/31/24 09:12 Docusate 100 Mg Cap PO 100 mg DAILY PRN Administration Constipation Folic Acid 1 mg 03/31/24 09:00 03/31/24 09:14 Folic Acid 1 Mg Tab PO 1 mg DAILY ANDREAS Administration Furosemide 20 mg 03/31/24 09:00 03/31/24 09:14 Furosemide 20 Mg Tab PO 20 mg BID ANDREAS Administration Gabapentin 800 mg 03/31/24 09:00 03/31/24 09:12 Gabapentin 400 Mg Cap PO 800 mg TID ANDREAS Administration Sodium Chloride 1,000 mls @ 20 mls/hr 03/30/24 19:45 03/30/24 19:51 Saline 0.9% IV Not Given .Q24H ANDREAS Methylprednisolone Sodium 100 mls @ 100 mls/hr 03/31/24 12:00 Succinate 500 mg/ Sodium IVPB Chloride Q12H ANDREAS Loratadine 10 mg 03/31/24 09:00 03/31/24 09:14 Loratadine 10 Mg Tab PO 10 mg DAILY ANDREAS Administration Memantine 10 mg 03/31/24 09:00 03/31/24 09:14 Memantine 10 Mg Tab PO 10 mg BID ANDREAS Administration Methocarbamol 750 mg 03/31/24 05:14 03/31/24 09:12 Methocarbamol 750 Mg Tab PO 750 mg Q8H PRN Administration Pain Morphine Sulfate 4 mg 03/30/24 19:36 03/31/24 05:39 Morphine Sulfate 4 Mg/Ml Syringe IV 4 mg Q4HR PRN Administration Severe Pain (Scale 7 to 10) Naloxone HCl 0.2 mg 03/30/24 19:36 Naloxone 0.4 Mg/Ml 1 Ml Vial IV Q2M PRN Opioid Reversal Nicotine 1 patch 03/31/24 05:14 03/31/24 09:15 Nicotine 14mg/24hr Patch TRANSDERM 1 patch DAILY ANDREAS Administration Ondansetron HCl 4 mg 03/30/24 19:36 Ondansetron 4 Mg/2 Ml Vial IVP Q8HR PRN Nausea And Vomiting Oxycodone/Acetaminophen 1 each 03/31/24 05:14 03/31/24 09:13 Oxycodone-Apap 7.5-325mg 1 Each Tab PO 1 each QID PRN Administration Pain Pantoprazole Sodium 40 mg 03/31/24 07:30 03/31/24 05:38 Pantoprazole 40 Mg Tablet PO 40 mg AC-BID ANDREAS Administration Paroxetine HCl 40 mg 03/31/24 09:00 03/31/24 09:13 Paroxetine 20 Mg Tab PO 40 mg DAILY ANDREAS Administration Ropinirole HCl 0.25 mg 03/31/24 09:00 03/31/24 09:14 Ropinirole Hcl 0.25 Mg Tab PO 0.25 mg TID ANDREAS Administration Spironolactone 25 mg 03/31/24 09:00 03/31/24 09:14 Spironolactone 25 Mg Tab PO 25 mg DAILY ANDREAS Administration Sucralfate 1 gm 03/31/24 07:30 03/31/24 09:14 Sucralfate 1 Gm Tab PO 1 gm ACHS ANDREAS Administration Topiramate 100 mg 03/31/24 09:00 03/31/24 09:14 Topiramate 100 Mg Tab PO 100 mg BID ANRDEAS Administration Verapamil HCl 120 mg 03/31/24 09:00 03/31/24 09:13 Verapamil Sr 120 Mg Tablet.Er PO 120 mg DAILY ANDREAS Administration Intake and Output 03/30/24 03/31/24 03/31/24 22:59 06:59 14:59 Output Total 100 Balance -100 Output: Urine 100 Other: Voiding Method External Catheter Weight 96.615 kg 96.615 kg 03/31/24 05:04 03/31/24 05:04
--- NOTE | 2024-03-31 15:19 | P.HPIM ---
History of Present Illness This is a pleasant 58 years old female with past medical history of multiple medical problems as below Presents because of chest pain radiating to the left arm. Patient evaluated by clinical implementation specialist and cleared her as this is noncardiac pain. Also patient has negative D-dimer on admission at 0.44. However patient also has been complaining of from more weakness and tingling in the left side. First she told me send left arm, but then told me left arm and little bit on the right arm, and then she told me the whole left side including the left arm and the left leg. She said mainly tingling , other than yesterday have weakness on the left side also, she told me he has, when I ask her is it mild weakness or severe weakness she told me both. Also she is complaining of from nausea. No abdominal pain. No specific urinary symptoms. She smokes less than a pack per day and she was counseled to quit and she agrees. She denies alcohol or illicit drugs. She is afebrile Labs reviewed were unremarkable except for chronic leukocytosis at 13,000 EKG showing sinus tachycardia at [address]-T changes Chest x-ray is negative for acute process CT of the brain is negative for acute process BNP, proBNP is 30. Patient currently on IV Solu-Medrol 500 mg per neurologist Review of Systems Review of systems CONSTITUTIONAL: No fever, no malaise, no fatigue. HEENT: No recent visual problems or hearing problems. Denied any sore throat. CARDIOVASCULAR: No orthopnea, PND, no palpitations, no syncope. PULMONARY: No shortness of breath, no cough, no hemoptysis. GASTROINTESTINAL: No diarrhea, no nausea, no vomiting, no abdominal pain. Normoactive bowel sounds. NEUROLOGICAL: No headaches, no weakness, no numbness. HEMATOLOGICAL: Denies any bleeding or petechiae. GENITOURINARY: Denies any burning micturition, frequency, or urgency. MUSCULOSKELETAL/RHEUMATOLOGICAL: Denies any joint pain, swelling, or any muscle pain. ENDOCRINE: Denies any polyuria or polydipsia. Past Medical History Past Medical History: Asthma, Cancer, Heart Failure, COPD, Eye Disorder, Fibromyalgia, GERD/Reflux, Hearing Disorder / Deafness, Hypertension, Memory Impairment, Musculoskeletal Disorder, Neurologic Disorder, Osteoarthritis (OA), Pneumonia, Sleep Apnea/CPAP/BIPAP, Syncope Additional Past Medical History / Comment(s): MS relapsing/remitting type, chronic bilateral eye pain/optic neuritis/ poor vision, cataracts bilaterally, chronic occipital neuralgia, osteoporosis, RLS, chronic hypoxic respiratory failure with home oxygen 2-3L/NC prn, chronic bronchitis, immunocompromised, elevated blood sugar with steroid use, uterine cancer with hysterectomy/radiation, heart murmur, mild cognitive impairment, chronic vertigo, falls, rheumatic fever as child, tinnitis bilaterally, allergic rhinitis, trigeminal neuralgia. History of Any Multi-Drug Resistant Organisms: None Reported Past Surgical History: Bladder Surgery, Heart Catheterization, Hysterectomy, Tubal Ligation Additional Past Surgical History / Comment(s): Nerve blocks, bladder suspension, fibroid removal. PA[facility] Past Anesthesia/Blood Transfusion Reactions: No Reported Reaction, Postoperative Nausea & Vomiting (PONV) Additional Past Anesthesia/Blood Transfusion Reaction / Comment(s): mild claustrophobia Past Psychological History: Anxiety, Depression Additional Psychological History / Comment(s): Pt resides alone. She uses a cane or walker or wheelchair. She has a private hire nurse aide who organizers her meds in a land use planner but pt takes her own meds, aide assists her with her ADLs. This aide also prepares meals/shopping and cleaning. Pt does not drive, she has her friends take her to appts or sometimes her aide drives her. Smoking Status: Current some day smoker Past Alcohol Use History: None Reported Additional Past Alcohol Use History / Comment(s): Patient started smoking at age 18 and has smoked on and off since then. Past Drug Use History: None Reported Additional Drug Use History / Comment(s): CBD oils for her knee pain. - Past Family History Mother Family Medical History: CVA/TIA, Myocardial Infarction ([place]) Additional Family Medical History / Comment(s): Mother is alive at age 75 with history of brain aneurysm, 3 strokes and 2 myocardial infarctions. Brain aneurysms run on mother's side of family Father Family Medical History: Coronary Artery Disease (CAD) Additional Family Medical History / Comment(s): Father at age 72 from a cardiac arrest thought to be due to a myocardial infarction. Sister(s) Family Medical History: No Reported History Additional Family Medical History / Comment(s): Patient has 2 sisters with no major medical problems. Patient does not have any brothers. Patient has 2 adult children with no major medical problems. Patient is only family member with MS. Medications and Allergies Home Medications Medication Instructions Recorded Confirmed Type Verapamil HCl [Calan] 120 mg PO DAILY 02/20/14 03/30/24 History Butalb/APAP/Caff 50-325-40Mg 1 tab PO TID 03/25/17 03/30/24 History [Fioricet 50-325-40] rOPINIRole HCL [Requip] 0.25 mg PO TID #90 tab 01/31/18 03/30/24 Rx Pantoprazole Sodium [Protonix] 40 mg PO BID 10/31/18 03/30/24 History Memantine [Namenda] 10 mg PO BID 11/22/18 03/30/24 History methocarbamoL [Robaxin-750] 750 mg PO Q8H 04/28/19 03/30/24 History Folic Acid 1 mg PO DAILY #30 tab 05/02/19 03/30/24 Rx Albuterol Sulfate [Ventolin HFA] 2 puff INHALATION RT-QID PRN 08/09/19 03/30/24 History Docusate [Colace] 100 mg PO DAILY PRN 01/30/20 03/30/24 History Gabapentin 800 mg PO TID 08/21/20 03/30/24 History Topiramate [Topamax] 100 mg PO BID 08/21/20 03/30/24 History oxyCODONE-APAP 7.5-325MG [Percocet 1 tab PO QID 10/30/20 03/30/24 History 7.5-325 mg] Cholecalciferol [Vitamin D3 (25 50 mcg PO DAILY 06/15/21 03/30/24 History Mcg = 1000 Iu)] Fluticasone/Umeclidin/Vilanter 1 puff INHALATION RT-DAILY 06/15/21 03/30/24 History [Trelegy Ellipta 200-62.5-25] PARoxetine HCL [Paxil] 40 mg PO DAILY 06/15/21 03/30/24 History Ipratropium-Albuterol Nebulize 3 ml INHALATION RT-QID PRN 08/13/21 03/30/24 History [Duoneb 0.5 mg-3 mg/3 ml Soln] Aspirin EC [Ecotrin Low Dose] 81 mg PO DAILY 02/09/22 03/30/24 History Cetirizine HCl [Zyrtec] 10 mg PO DAILY 10/17/23 03/30/24 History LORazepam [Ativan] 1 mg PO TID 10/17/23 03/30/24 History Sucralfate [Carafate] 1 gm PO ACHS 10/17/23 03/30/24 History Dapagliflozin Propanediol [Farxiga] 10 mg PO DAILY #30 tablet 10/22/23 03/30/24 Rx Spironolactone [Aldactone] 25 mg PO DAILY #30 tablet 10/22/23 03/30/24 Rx Furosemide [Lasix] 20 mg PO BID 03/30/24 03/30/24 History Allergies Allergy/AdvReac Type Severity Reaction Status Date / Time baclofen AdvReac URINARY Verified 03/30/24 19:08 ISSUES dexamethasone [From Decadron] AdvReac "THOMPSON Verified 03/30/24 19:08 SKIN"/DEHYDRATION Physical Exam Vitals: Vital Signs Temp Pulse Pulse Resp BP BP Pulse Ox 03/31/24 14:13 97.6 F 83 16 145/71 95 03/31/24 12:15 78 03/31/24 11:52 76 03/31/24 08:41 70 03/31/24 08:20 74 03/31/24 07:00 97.9 F 63 16 163/78 96 03/31/24 02:00 98.2 F 104 H 19 118/82 93 L 03/31/24 01:51 19 03/30/24 23:33 80 17 101/66 90 L 03/30/24 21:00 93 18 125/80 95 03/30/24 19:30 101 H 18 119/83 95 03/30/24 19:25 107 H 03/30/24 18:30 98.4 F 121 H 20 121/83 94 L Intake and Output 03/31/24 03/31/24 03/31/24 06:59 14:59 22:59 Output Total 100 Balance -100 Output: Urine 100 Other: Voiding Method External Catheter Weight 96.615 kg GENERAL: The patient is alert and oriented x3, not in any acute distress. Well developed, well nourished. HEENT: Pupils are round and equally reacting to light. EOMI. No scleral icterus. No conjunctival pallor. Normocephalic, atraumatic. No pharyngeal erythema. No thyromegaly. CARDIOVASCULAR: S1 and S2 present. No murmurs, rubs, or gallops. PULMONARY: Chest is clear to auscultation, no wheezing , no crackles. ABDOMEN: Soft, nontender, nondistended, normoactive bowel sounds. No palpable organomegaly. MUSCULOSKELETAL: No joint swelling or deformity. EXTREMITIES: No cyanosis, clubbing, or pedal edema. NEUROLOGICAL: Gross neurological examination did not reveal any focal deficits. SKIN: No rashes. no petechiae. Results CBC & Chem 7: 03/31/24 05:04 03/31/24 05:04 Labs: Abnormal Lab Results - Last 24 Hours (Table) 03/30/24 03/30/24 03/31/24 Range/Units 18:54 18:54 05:04 WBC 13.9 H (3.8-10.6) k/uL RBC 5.27 H (4.10-5.20) X 10*6/uL Hgb 16.4 H 16.2 H (11.4-16.0) gm/dL Hct 52.8 H 52.2 H (34.0-46.0) % MCV 99.1 H (80.0-97.0) FL MCHC 31.0 L (32.0-37.0) g/dL Neutrophils # 9.3 H 8.20 H (1.3-7.7) k/uL Monocytes # 0.16 L (0.20-1.00) X 10*3/uL Eosinophils # 0 L (0.04-0.35) X 10*3/uL Potassium 3.4 L (3.5-5.1) mmol/L Carbon Dioxide 31 H (22-30) mmol/L Anion Gap (4.00-12.00) mmol/L BUN 5 L (7-17) mg/dL Creatinine (0.6-1.5) mg/dL BUN/Creatinine Ratio (12.00-20.00) Ratio Glucose 119 H (74-99) mg/dL POC Glucose (mg/dL) (70-110) mg/dL Magnesium 1.4 L (1.6-2.3) mg/dL Total Protein (6.2-8.2) g/dL Globulin (1.6-3.3) g/dL 03/31/24 03/31/24 Range/Units 05:04 13:28 WBC (3.8-10.6) k/uL RBC (4.10-5.20) X 10*6/uL Hgb (11.4-16.0) gm/dL Hct (34.0-46.0) % MCV (80.0-97.0) FL MCHC (32.0-37.0) g/dL Neutrophils # (1.3-7.7) k/uL Monocytes # (0.20-1.00) X 10*3/uL Eosinophils # (0.04-0.35) X 10*3/uL Potassium (3.5-5.1) mmol/L Carbon Dioxide (22-30) mmol/L Anion Gap 15.00 H (4.00-12.00) mmol/L BUN 5.1 L (7-17) mg/dL Creatinine 0.5 L (0.6-1.5) mg/dL BUN/Creatinine Ratio 10.20 L (12.00-20.00) Ratio Glucose 130 H (74-99) mg/dL POC Glucose (mg/dL) 112 H (70-110) mg/dL Magnesium (1.6-2.3) mg/dL Total Protein 5.7 L (6.2-8.2) g/dL Globulin 1.5 L (1.6-3.3) g/dL Thrombosis Risk Factor Assmnt - Choose All That Apply Any of the Below Risk Factors Present?: Yes Each Factor Represents 1 point: Abnormal pulmonary function (COPD), Age 41-60 years, Obesity (BMI >25), Swollen legs (current) Other Risk Factors: No Other congenital or acquired thrombophilia - If yes, enter type in comment: No Thrombosis Risk Factor Assessment Total Risk Factor Score: 4 Thrombosis Risk Factor Assessment Level: Moderate Risk Assessment and Plan Assessment: Chest pain, most likely musculoskeletal, negative D-dimer and cardiology cleared for discharge Left side numbness with very mild weakness, mainly subjective most likely secondary to MS as a flareup Nausea Nicotine dependence Obesity with BMI of 39 Chronic leukocytosis Obesity with BMI of 39 Plan: Continue with pain management Continue with IV Solu-Medrol Cardiology cleared the patient for discharge Neurology following the patient closely Patient counseled extensively to quit smoking and she agrees. Labs and medication were reviewed.. Continue same treatment. Continue with symptomatic treatment. Resume home medication. Monitor labs and vitals. DVT and GI prophylaxis. Further recommendations as per clinical course of the patient DVT prophylaxis: Subcutaneous heparin GI Prophylaxis: Pepcid Prognosis is guarded
[2024-03-31] MEDS: HEPARIN SODIUM,PORCINE 5,000 UNIT/ML 1 ML VIAL SQ SCH (16:41)
[2024-03-31] MEDS: NYSTATIN 100,000 UNIT/ML SUSP 500,000 UNIT/5 ML CUP PO SCH (16:42)
[2024-03-31 20:16] LABS: Glucose,Whole Blood 154 mg/dL (70-110)
[2024-04-01] MEDS: MELATONIN 5 MG TABLET PO PRN (00:36)
[2024-04-01] MEDS: LORazepam 1 MG TAB PO PRN (04:29)
[2024-04-01 06:14] LABS: Glucose,Whole Blood 147 mg/dL (70-110)
[2024-04-01] MEDS: IPRATROPIUM-ALBUTEROL 3 ML NEB INHALATION PRN (07:57)
--- NOTE | 2024-04-01 12:15 | P.PN ---
Subjective Progress Note Date: 04/01/24 Principal diagnosis: Multiple sclerosis with left-sided weakness. Ms. Hernández is a 58-year-old right-handed -[place] female with history of multiple sclerosis for the past 13 years. She also has a history of asthma as well as uterine cancer, CHF, COPD, fibromyalgia, gastropathy reflux disease, hearing deficiency, hypertension, poor memory, and obstructive sleep apnea for which she is not currently on CPAP. She was admitted to [facility] on March 30, 2024 with symptoms of chest pain and a possible MS exacerbation. She states that she receives Ocrevus for multiple sclerosis and last received this in December. She does note that before that usually after 4 months after receiving Ocrevus, prior to her next dose which is scheduled now for May, she often had will have exacerbations and needs to come into the hospital for steroids. At this time, she does note some chest pain in addition to left arm tightness which appears to be muscle spasms. She also notes numbness in her left neck which appears new. She has some chronic waxing and waning numbness of her left leg. She was given Solu-Medrol 250 mg IV x 1 in the emergency room and is now scheduled for Solu-Medrol 250 mg every 8 hours. She received a CT noncontrast of the head yesterday which was negative and chest x- ray which was negative. Neurology has been consulted for further management recommendations. She also feels like she began to have upper respiratory symptoms last weekend, and subsequently has noted slow progression of her neurologic issues since then. When she was seen initially March 31, 2004: MRI of the brain without with and without contrast for orbit was ordered to assess for multiple sclerosis lesions. And the patient was converted to 500 mg of methylprednisolone every 12 hours for suspected exacerbation. On evaluation April 01, 2024, the patient appears to have improved speech quality as she was able to elucidate herself more clearly. She still is stuttering somewhat. She still notes some tightness to her left neck as well as left arm. On examination her left arm is roughly 5- out of 5 right arm is 5 out of 5 in bilateral lower extremities are roughly 3 out of 5. She notes some numbness on the left side, but this does not include her face. Of note she also states that she has had MRIs in the past showing lesions on her cervical spine as well. Assessment: Ms. Hernández is a 58-year-old right-handed -[place] female with history of multiple sclerosis. She notes that she may have exacerbations after she has received her Ocrevus approximately 4 months ago. She is currently reporting symptoms of chest pain as well as left arm muscle spasms and left neck pain. Her exam reveals some generalized weakness of her lower extremities greater than upper extremities and she endorses chronic numbness to her left lower extremity. She has received Solu-Medrol 250 mg x 2 and is currently on a dosing schedule of 250 mg every 8 hours. She may have suffered and multiple sclerosis exacerbation. 1. We are awaiting MRI of the brain with and without contrast to look for multiple sclerosis lesions. Based on the results of this test I may decide to order further MRIs of the spine but I will wait until the first 1 is performed 2. The patient is continuing on Solu-Medrol 500 mg every 12 hours at this time. Tomorrow will be her third day and hopefully will have the MRI to guide further treatment which can last up to 5 days if necessary. 3. Neurology will continue to follow the patient in house and make further recommendations as needed. Objective - Vital Signs Vital signs: Vital Signs Temp 97.9 F 04/01/24 07:00 Pulse 75 04/01/24 11:33 Resp 16 04/01/24 07:00 BP 143/89 04/01/24 07:00 Pulse Ox 92 L 04/01/24 07:00 FiO2 Intake & Output 03/31/24 04/01/24 04/01/24 18:59 06:59 18:59 Intake Total 360 797 240 Output Total 200 2050 Balance 160 -1253 240 Intake: Oral 360 797 240 Output: Urine 200 2050 Other: Voiding Method External Catheter # Voids 1 # Bowel Movements 1 - Labs CBC & Chem 7: 03/31/24 05:04 03/31/24 05:04 Labs: Abnormal Lab Results - Last 24 Hours (Table) 03/31/24 03/31/24 04/01/24 Range/Units 13:28 20:15 06:13 POC Glucose (mg/dL) 112 H 154 H 147 H (70-110) mg/dL
[2024-04-01 12:20] LABS: Glucose,Whole Blood 121 mg/dL (70-110)
--- NOTE | 2024-04-01 16:20 | MR ---
EXAMINATION TYPE: MR brain wo/w con DATE OF EXAM: 04/01/2024 4:03 PM COMPARISON: 03/30/2020. CLINICAL INDICATION: Female, 58 years old with history of hx. MS, left sided weakness/numbness; PHH, hx. MS, left sided weakness/numbness. TECHNIQUE: Multi planar, multi sequence imaging was performed through the brain including: T1, T2, In version recovery, susceptibility weighted imaging and gradient echo imaging and Diffusion weighted im aging. The patient was then given intravenous contrast and multi planar, T1 fat-saturation images wer e obtained. IV Contrast: 9.5 mL Gadobutrol FINDINGS: Scattered bilateral white matter changes. No restricted diffusion or evidence for enhanceme nt to suggest active demyelination. Overall white matter changes are not that different from 2021 and differences in technique and slice selection. The rosario-white junctions, ventricular system, basal cisterns appear unremarkable. Diffusion-weighted imaging shows no evidence of restricted diffusion to suggest acute/subacute infarct. Intracranial ar terial flow voids are maintained. Midline structures show no abnormality. The susceptibility weighted images do not reveal any evidence for micro-hemorrhage. After administration of gadolinium, no abnor mal enhancement is seen. The bone marrow signal is within normal limits. Paranasal sinuses and mastoid air cells: No significant paranasal sinus disease. Trace bilateral mast oid air cell high T2 signal. Visualized orbits: Orbital contents are intact. IMPRESSION: 1. No evidence of intracranial mass, acute/subacute infarct, or abnormal enhancement. 2. No evidence for active demyelination. Bilateral nonspecific white matter changes possibly related to multiple sclerosis given patient's history. Images not significantly different from prior in 2019 given differences in slice flexion technique. 3. Trace bilateral mastoid air cell effusions. [facility], , 04/01/2024 4:18 PM
--- NOTE | 2024-04-01 19:10 | P.PN ---
Subjective This is a pleasant 58 years old female with past medical history of multiple medical problems as below Presents because of chest pain radiating to the left arm. Patient evaluated by curtain roller assembler and cleared her as this is noncardiac pain. Also patient has negative D-dimer on admission at 0.44. However patient also has been complaining of from more weakness and tingling in the left side. First she told me send left arm, but then told me left arm and little bit on the right arm, and then she told me the whole left side including the left arm and the left leg. She said mainly tingling , other than yesterday have weakness on the left side also, she told me he has, when I ask her is it mild weakness or severe weakness she told me both. Also she is complaining of from nausea. No abdominal pain. No specific urinary symptoms. She smokes less than a pack per day and she was counseled to quit and she agrees. She denies alcohol or illicit drugs. She is afebrile Labs reviewed were unremarkable except for chronic leukocytosis at 13,000 EKG showing sinus tachycardia at [address]-T changes Chest x-ray is negative for acute process CT of the brain is negative for acute process BNP, proBNP is 30. Patient currently on IV Solu-Medrol 500 mg per neurologist 04/01 Patient has some improvement in her neurological symptoms of tingling and weakness She remains on IV Solu-Medrol neurology following closely MRI of the brain reviewed showing no stroke or mass effect but there is bilateral nonspecific white matter changes could be related to patient history of multiple sclerosis but there is no active demyelination process going up IV fluid discontinued Objective - Vital Signs Vital signs: Vital Signs Temp 97.8 F 04/01/24 14:10 Pulse 85 04/01/24 14:10 Resp 16 04/01/24 14:10 BP 122/74 04/01/24 14:10 Pulse Ox 95 04/01/24 14:10 FiO2 Intake & Output 04/01/24 04/01/24 04/02/24 06:59 18:59 06:59 Intake Total 797 358 Output Total 2049 500 Balance -1253 -142 Intake: Oral 797 358 Output: Urine 2049 500 Other: Voiding Method External Catheter # Voids 1 # Bowel Movements 1 - Exam This is a pleasant 58 years old female with past medical history of multiple medical problems as below Presents because of chest pain radiating to the left arm. Patient evaluated by curtain roller assembler and cleared her as this is noncardiac pain. Also patient has negative D-dimer on admission at 0.44. However patient also has been complaining of from more weakness and tingling in the left side. First she told me send left arm, but then told me left arm and little bit on the right arm, and then she told me the whole left side including the left arm and the left leg. She said mainly tingling , other than yesterday have weakness on the left side also, she told me he has, when I ask her is it mild weakness or severe weakness she told me both. Also she is complaining of from nausea. No abdominal pain. No specific urinary symptoms. She smokes less than a pack per day and she was counseled to quit and she agrees. She denies alcohol or illicit drugs. She is afebrile Labs reviewed were unremarkable except for chronic leukocytosis at 13,000 EKG showing sinus tachycardia at [address]-T changes Chest x-ray is negative for acute process CT of the brain is negative for acute process BNP, proBNP is 30. Patient currently on IV Solu-Medrol 500 mg per neurologist - Labs CBC & Chem 7: 03/31/24 05:04 03/31/24 05:04 Labs: Abnormal Lab Results - Last 24 Hours (Table) 03/31/24 04/01/24 04/01/24 Range/Units 20:15 06:13 12:18 POC Glucose (mg/dL) 154 H 147 H 121 H (70-110) mg/dL Assessment and Plan Assessment: Chest pain, most likely musculoskeletal, negative D-dimer and cardiology cleared for discharge Left side numbness with very mild weakness, mainly subjective most likely secondary to MS as a flareup Nausea Nicotine dependence Obesity with BMI of 39 Chronic leukocytosis Obesity with BMI of 39 Plan: Continue with pain management Continue with IV Solu-Medrol MRI of the brain is reviewed showing a possible demyelinating disease related to her patient history although this water matter changes could be nonspecific Cardiology cleared the patient for discharge Neurology following the patient closely Patient counseled extensively to quit smoking and she agrees. Labs and medication were reviewed.. Continue same treatment. Continue with symptomatic treatment. Resume home medication. Monitor labs and vitals. DVT and GI prophylaxis. Further recommendations as per clinical course of the patient DVT prophylaxis: Subcutaneous heparin GI Prophylaxis: Pepcid Prognosis is guarded
[2024-04-01 20:27] LABS: Glucose,Whole Blood 167 mg/dL (70-110)
[2024-04-02 05:58] LABS: Glucose,Whole Blood 169 mg/dL (70-110)
--- NOTE | 2024-04-02 11:01 | P.PN ---
Subjective Progress Note Date: 04/02/24 Principal diagnosis: History of multiple sclerosis with chest pain and increased tingling and neck pain. Ms. Hernández is a 58-year-old right-handed -[place] female with history of multiple sclerosis for the past 13 years. She also has a history of asthma as well as uterine cancer, CHF, COPD, fibromyalgia, gastropathy reflux disease, hearing deficiency, hypertension, poor memory, and obstructive sleep apnea for which she is not currently on CPAP. She was admitted to [facility] on March 30, 2024 with symptoms of chest pain and a possible MS exacerbation. She states that she receives Ocrevus for multiple sclerosis and last received this in December. She does note that before that usually after 4 months after receiving Ocrevus, prior to her next dose which is scheduled now for May, she often had will have exacerbations and needs to come into the hospital for steroids. At this time, she does note some chest pain in addition to left arm tightness which appears to be muscle spasms. She also notes numbness in her left neck which appears new. She has some chronic waxing and waning numbness of her left leg. She was given Solu-Medrol 250 mg IV x 1 in the emergency room and is now scheduled for Solu-Medrol 250 mg every 8 hours. She received a CT noncontrast of the head yesterday which was negative and chest x- ray which was negative. Neurology has been consulted for further management recommendations. She also feels like she began to have upper respiratory symptoms last weekend, and subsequently has noted slow progression of her ne urologic issues since then. When she was seen initially March 31, 2004: MRI of the brain without with and without contrast for orbit was ordered to assess for multiple sclerosis lesions. And the patient was converted to 500 mg of methylprednisolone every 12 hours for suspected exacerbation. On evaluation April 01, 2024, the patient appears to have improved speech quality as she was able to elucidate herself more clearly. She still is stuttering somewhat. She still notes some tightness to her left neck as well as left arm. On examination her left arm is roughly 5- out of 5 right arm is 5 out of 5 in bilateral lower extremities are roughly 3 out of 5. She notes some numbness on the left side, but this does not include her face. Of note she also states that she has had MRIs in the past showing lesions on her cervical spine as well. On evaluation April 02, 2024, the patient feels that she may have improved slightly with her lower extremity strength. However she is still unable to walk at this time. Physical therapy evaluated her but rehab is made no formal recommendation on whether inpatient rehab versus home health is necessary. She has continued on Solu-Medrol 500 mg every 12 hours for roughly 3 days at this time. Her MRI of the brain returned yesterday without without contrast indicating no evidence of mass, infarct, or enhancing lesion as would be consistent with active multiple sclerosis. On exam, she exhibits a mildly stuttering speech. Motor examination reveals upper extremities roughly 5- out of 5. Lower extremities are roughly 3 out of 5 bilaterally with some sensory deficit on the left leg and arm but not face. Assessment: Ms. Hernández is a 58-year-old right-handed -[place] female with history of multiple sclerosis. She notes that she may have exacerbations after she has received her Ocrevus approximately 4 months ago. She is currently reporting symptoms of chest pain as well as left arm muscle spasms and left neck pain. Her exam reveals some generalized weakness of her lower extremities greater than upper extremities and she endorses chronic numbness to her left lower extremity. She has received Solu-Medrol 250 mg x 2 and is currently on a dosing schedule of 250 mg every 8 hours. 1. I will discontinue her Solu-Medrol and prescribe prednisone 30 mg p.o. daily for 3 days followed by 30 mg p.o. every other day for 6 days. 2. I will also prescribe tizanidine 2 mg every 8 hours for her musculoskeletal pain. In addition if the patient takes Robaxin at home. Both of these may be continued on the patient's discharge. 3. Neurology will continue to follow the patient on an intermittent basis from this point forward. Objective - Vital Signs Vital signs: Vital Signs Temp 98.3 F 04/02/24 07:08 Pulse 74 04/02/24 08:42 Resp 18 04/02/24 07:08 BP 135/80 04/02/24 07:08 Pulse Ox 95 04/02/24 08:27 FiO2 Intake & Output 04/01/24 04/02/24 04/02/24 18:59 06:59 18:59 Intake Total 358 1460 118 Output Total 500 300 Balance -142 1160 118 Intake: Intake, IV Titration 340 Amount Sodium Chloride 0.9% 1, 240 000 ml @ 20 mls/hr IV . Q24H ANDREAS Rx#:[id number] methylPREDNISolone SOD 100 SUCCIN 500 mg In Sodium Chloride 0.9% 100 ml @ 100 mls/hr IVPB Q12H ANDREAS Rx#:[id number] Oral 358 1120 118 Output: Urine 500 300 Other: # Voids 1 - Labs CBC & Chem 7: 03/31/24 05:04 03/31/24 05:04 Labs: Abnormal Lab Results - Last 24 Hours (Table) 04/01/24 04/01/24 04/02/24 Range/Units 12:18 20:25 05:56 POC Glucose (mg/dL) 121 H 167 H 169 H (70-110) mg/dL
[2024-04-02 12:04] LABS: Glucose,Whole Blood 119 mg/dL (70-110)
[2024-04-02] MEDS: tiZANidine 4 MG TAB PO SCH (16:20)
[2024-04-02 17:20] LABS: Glucose,Whole Blood 117 mg/dL (70-110)
[2024-04-02 20:22] LABS: Glucose,Whole Blood 143 mg/dL (70-110)
--- NOTE | 2024-04-02 21:35 | P.PN ---
Subjective This is a pleasant 58 years old female with past medical history of multiple medical problems as below Presents because of chest pain radiating to the left arm. Patient evaluated by steel tester and cleared her as this is noncardiac pain. Also patient has negative D-dimer on admission at 0.44. However patient also has been complaining of from more weakness and tingling in the left side. First she told me send left arm, but then told me left arm and little bit on the right arm, and then she told me the whole left side including the left arm and the left leg. She said mainly tingling , other than yesterday have weakness on the left side also, she told me he has, when I ask her is it mild weakness or severe weakness she told me both. Also she is complaining of from nausea. No abdominal pain. No specific urinary symptoms. She smokes less than a pack per day and she was counseled to quit and she agrees. She denies alcohol or illicit drugs. She is afebrile Labs reviewed were unremarkable except for chronic leukocytosis at 13,000 EKG showing sinus tachycardia at [address]-T changes Chest x-ray is negative for acute process CT of the brain is negative for acute process BNP, proBNP is 30. Patient currently on IV Solu-Medrol 500 mg per neurologist 04/01 Patient has some improvement in her neurological symptoms of tingling and weakness She remains on IV Solu-Medrol neurology following closely MRI of the brain reviewed showing no stroke or mass effect but there is bilateral nonspecific white matter changes could be related to patient history of multiple sclerosis but there is no active demyelination process going up IV fluid discontinued 04/02 Patient was admitted and evaluated for possible multiple sclerosis exacerbation. She reports weakness and numbness mainly in the left side. She was treated with 3 days of IV Solu-Medrol. Neurology service thi believe patient showing improvement and he switched to prednisone. Patient complains from pain all over her body, almost every part of her body hurts. Most likely elements of fibromyalgia besides deconditioning. Patient is morbidly obese with BMI of 39.0. She has some elements of mild bronchitis with recent upper respiratory tract infection, however her secretions improving. Incentive spirometry was ordered. Currently patient remains on prednisone. She has good oxygen saturation and mentation at baseline. She has mild leukocytosis improved but hemoglobin stable at 16. Possible discharge in 24 to 48 hours if she continues to improve Objective - Vital Signs Vital signs: Vital Signs Temp 97.7 F 04/02/24 13:55 Pulse 85 04/02/24 13:55 Resp 18 04/02/24 13:55 BP 103/67 04/02/24 13:55 Pulse Ox 96 04/02/24 13:55 FiO2 Intake & Output 04/01/24 04/02/24 04/02/24 18:59 06:59 18:59 Intake Total 358 1460 340 Output Total 500 300 550 Balance -142 1160 -210 Intake: Intake, IV Titration 340 Amount Sodium Chloride 0.9% 1, 240 000 ml @ 20 mls/hr IV . Q24H ANDREAS Rx#:[id number] methylPREDNISolone SOD 100 SUCCIN 500 mg In Sodium Chloride 0.9% 100 ml @ 100 mls/hr IVPB Q12H ANDREAS Rx#:[id number] Oral 358 1120 340 Output: Urine 500 300 550 Other: Voiding Method Bedside Commode External Catheter # Voids 1 - Exam This is a pleasant 58 years old female with past medical history of multiple medical problems as below Presents because of chest pain radiating to the left arm. Patient evaluated by steel tester and cleared her as this is noncardiac pain. Also patient has negative D-dimer on admission at 0.44. However patient also has been complaining of from more weakness and tingling in the left side. First she told me send left arm, but then told me left arm and little bit on the right arm, and then she told me the whole left side including the left arm and the left leg. She said mainly tingling , other than yesterday have weakness on the left side also, she told me he has, when I ask her is it mild weakness or severe weakness she told me both. Also she is complaining of from nausea. No abdominal pain. No specific urinary symptoms. She smokes less than a pack per day and she was counseled to quit and she agrees. She denies alcohol or illicit drugs. She is afebrile Labs reviewed were unremarkable except for chronic leukocytosis at 13,000 EKG showing sinus tachycardia at [address]-T changes Chest x-ray is negative for acute process CT of the brain is negative for acute process BNP, proBNP is 30. Patient currently on IV Solu-Medrol 500 mg per neurologist - Labs CBC & Chem 7: 03/31/24 05:04 03/31/24 05:04 Labs: Abnormal Lab Results - Last 24 Hours (Table) 04/01/24 04/02/24 04/02/24 Range/Units 20:25 05:56 12:02 POC Glucose (mg/dL) 167 H 169 H 119 H (70-110) mg/dL Assessment and Plan Assessment: Chest pain, most likely musculoskeletal, negative D-dimer and cardiology cleared for discharge Left side numbness with very mild weakness, mainly subjective most likely secondary to MS as a flareup Nausea Nicotine dependence Obesity with BMI of 39 Chronic leukocytosis Obesity with BMI of 39 Generalized body ache could be elements of fibromyalgia Plan: Continue with pain management Continue with IV Solu-Medrol which is switched to prednisone by neurologist MRI of the brain is reviewed showing a possible demyelinating disease related to her patient history although this water matter changes could be nonspecific Cardiology cleared the patient for discharge Neurology following the patient intermittently now y Patient counseled extensively to quit smoking and she agrees. Labs and medication were reviewed.. Continue same treatment. Continue with symptomatic treatment. Resume home medication. Monitor labs and vitals. DVT and GI prophylaxis. Further recommendations as per clinical course of the patient DVT prophylaxis: Subcutaneous heparin GI Prophylaxis: Pepcid Prognosis is guarded
[2024-04-03 06:08] LABS: Glucose,Whole Blood 85 mg/dL (70-110)
[2024-04-03] MEDS: predniSONE 10 MG TAB PO SCH (08:58)
[2024-04-03] MEDS ORDERED: predniSONE 10 MG TAB PO SCH (09:00)
[2024-04-03] MEDS: IPRATROPIUM-ALBUTEROL 3 ML NEB INHALATION SCH (09:49)
[2024-04-03 12:03] LABS: Glucose,Whole Blood 111 mg/dL (70-110)
--- NOTE | 2024-04-03 13:30 | CT ---
EXAMINATION TYPE: CT abdomen pelvis w con DATE OF EXAM: 04/03/2024 12:52 PM COMPARISON: 10/20/2023 CLINICAL INDICATION: Female, 58 years old with history of abd pain; Abdominal pain TECHNIQUE: Axial CT abdomen pelvis w con;Sagittal and coronal reformats were created on a separate w orkstation. Contrast used:100 ml mL of Isovue 300 with IV Contrast, (none if empty) Oral contrast used: without Oral Contrast (none if empty) CT DLP: 1538.0 mGycm, Automated exposure control for dose reduction was used. FINDINGS: LOWER CHEST: Unremarkable ABDOMEN LIVER: Left hepatic lobe probable cyst. GALLBLADDER AND BILE DUCTS: Unremarkable. PANCREAS: Unremarkable. SPLEEN: Unremarkable. ADRENAL GLANDS: Unremarkable. KIDNEYS AND URETERS: No evidence of hydronephrosis or obstructive renal calculus. Nonobstructing left 3 mm calculus. The ureters are unremarkable. PELVIS BLADDER: No evidence for wall thickening or mass given limitations of exam. REPRODUCTIVE: Unremarkable. ABDOMEN & PELVIS STOMACH AND BOWEL: No evidence of bowel obstruction. Moderate amount of stool throughout the colon. S cattered colonic diverticula. The appendix is normal. PERITONEUM/RETROPERITONEUM: No evidence of pneumoperitoneum or free fluid. VASCULATURE: Mild atherosclerotic calcifications are present throughout the abdominal aorta and its b ranches. No evidence of aortic aneurysm. MUSCULOSKELETAL: No acute osseous abnormalities. Mild disc degeneration changes are present throughou t the thoracolumbar spine. LYMPH NODES: No gross evidence for lymphadenopathy. SOFT TISSUE/ABDOMINAL WALL: Fat-containing umbilical hernia. IMPRESSION: 1. No evidence for acute abdominal process. No obstructive uropathy. The appendix is normal. 2. Nonobstructing left 3 mm calculus. 3. Colonic diverticulosis. [facility], , 04/03/2024 1:28 PM
[2024-04-03 16:56] LABS: Glucose,Whole Blood 128 mg/dL (70-110)
[2024-04-03 20:31] LABS: Glucose,Whole Blood 129 mg/dL (70-110)
--- NOTE | 2024-04-04 05:01 | P.PN ---
Subjective This is a pleasant 58 years old female with past medical history of multiple medical problems as below Presents because of chest pain radiating to the left arm. Patient evaluated by senior field engineer and cleared her as this is noncardiac pain. Also patient has negative D-dimer on admission at 0.44. However patient also has been complaining of from more weakness and tingling in the left side. First she told me send left arm, but then told me left arm and little bit on the right arm, and then she told me the whole left side including the left arm and the left leg. She said mainly tingling , other than yesterday have weakness on the left side also, she told me he has, when I ask her is it mild weakness or severe weakness she told me both. Also she is complaining of from nausea. No abdominal pain. No specific urinary symptoms. She smokes less than a pack per day and she was counseled to quit and she agrees. She denies alcohol or illicit drugs. She is afebrile Labs reviewed were unremarkable except for chronic leukocytosis at 13,000 EKG showing sinus tachycardia at [address]-T changes Chest x-ray is negative for acute process CT of the brain is negative for acute process BNP, proBNP is 30. Patient currently on IV Solu-Medrol 500 mg per neurologist 04/01 Patient has some improvement in her neurological symptoms of tingling and weakness She remains on IV Solu-Medrol neurology following closely MRI of the brain reviewed showing no stroke or mass effect but there is bilateral nonspecific white matter changes could be related to patient history of multiple sclerosis but there is no active demyelination process going up IV fluid discontinued 04/02 Patient was admitted and evaluated for possible multiple sclerosis exacerbation. She reports weakness and numbness mainly in the left side. She was treated with 3 days of IV Solu-Medrol. Neurology service thi believe patient showing improvement and he switched to prednisone. Patient complains from pain all over her body, almost every part of her body hurts. Most likely elements of fibromyalgia besides deconditioning. Patient is morbidly obese with BMI of 39.0. She has some elements of mild bronchitis with recent upper respiratory tract infection, however her secretions improving. Incentive spirometry was ordered. Currently patient remains on prednisone. She has good oxygen saturation and mentation at baseline. She has mild leukocytosis improved but hemoglobin stable at 16. Possible discharge in 24 to 48 hours if she continues to improve 04/03 Patient neurological symptoms are improving Will switch to oral prednisone okayed by neurologist for discharge Patient was complaining from abdominal pain, CT of the abdomen was negative Patient fel it is too late to leave and she wants to wait till the morning Possible discharge in 24 hours Objective - Vital Signs Vital signs: Vital Signs Temp 97.7 F 04/03/24 13:55 Pulse 85 04/03/24 15:46 Resp 18 04/03/24 15:46 BP 103/67 04/03/24 13:55 Pulse Ox 92 L 04/03/24 13:55 FiO2 Intake & Output 04/02/24 04/03/24 04/03/24 18:59 06:59 18:59 Intake Total 340 560 Output Total 550 2600 Balance - -2039 Intake: Oral 340 560 Output: Urine 550 2600 Other: Voiding Method Bedside Commode Bedside Commode External Catheter External Catheter - Exam This is a pleasant 58 years old female with past medical history of multiple me dical problems as below Presents because of chest pain radiating to the left arm. Patient evaluated by senior field engineer and cleared her as this is noncardiac pain. Also patient has negative D-dimer on admission at 0.44. However patient also has been complaining of from more weakness and tingling in the left side. First she told me send left arm, but then told me left arm and little bit on the right arm, and then she told me the whole left side including the left arm and the left leg. She said mainly tingling , other than yesterday have weakness on the left side also, she told me he has, when I ask her is it mild weakness or severe weakness she told me both. Also she is complaining of from nausea. No abdominal pain. No specific urinary symptoms. She smokes less than a pack per day and she was counseled to quit and she agrees. She denies alcohol or illicit drugs. She is afebrile Labs reviewed were unremarkable except for chronic leukocytosis at 13,000 EKG showing sinus tachycardia at [address]-T changes Chest x-ray is negative for acute process CT of the brain is negative for acute process BNP, proBNP is 30. Patient currently on IV Solu-Medrol 500 mg per neurologist - Labs CBC & Chem 7: 03/31/24 05:04 03/31/24 05:04 Labs: Abnormal Lab Results - Last 24 Hours (Table) 04/02/24 04/03/24 04/03/24 Range/Units 20:21 12:01 16:54 POC Glucose (mg/dL) 143 H 111 H 128 H (70-110) mg/dL Assessment and Plan Assessment: Chest pain, most likely musculoskeletal, negative D-dimer and cardiology cleared for discharge Left side numbness with very mild weakness, mainly subjective most likely secondary to MS as a flareup Nausea Nicotine dependence Obesity with BMI of 39 Chronic leukocytosis Obesity with BMI of 39 Generalized body ache could be elements of fibromyalgia Plan: Continue with pain management Continue with IV Solu-Medrol which is switched to prednisone by neurologist. Currently on oral prednisone MRI of the brain is reviewed showing a possible demyelinating disease related to her patient history although this water matter changes could be nonspecific Cardiology cleared the patient for discharge Neurology following the patient intermittently now y Patient counseled extensively to quit smoking and she agrees. Labs and medication were reviewed.. Continue same treatment. Continue with symptomatic treatment. Resume home medication. Monitor labs and vitals. DVT and GI prophylaxis. Further recommendations as per clinical course of the patient DVT prophylaxis: Subcutaneous heparin GI Prophylaxis: Pepcid Prognosis is guarded Patient medically stable for discharge
[2024-04-04 06:20] LABS: Glucose,Whole Blood 117 mg/dL (70-110)
[2024-04-04 09:38] LABS: BUN/Creat Ratio 17.12 Ratio (12.00-20.00); Blood Urea Nitrogen 13.7 mg/dL (9.0-27.0); Calcium 9.2 mg/dL (8.7-10.3); Carbon Dioxide 34.6 mmol/L (21.6-31.8); Chloride 98 mmol/L (96-109); Glucose 87 mg/dL (70-110); Potassium 3.1 mmol/L (3.5-5.5); Sodium 143 mmol/L (135-145)
[2024-04-04 12:06] LABS: Glucose,Whole Blood 114 mg/dL (70-110)
[2024-04-04] MEDS ORDERED: Potassium Replacement Protocol 1 EACH MISC MISCELLANE PRN (13:14)
[2024-04-04] MEDS: POTASSIUM CHLORIDE ER 20 MEQ TAB.ER PO SCH (14:05)
--- NOTE | 2024-04-04 14:44 | P.PN ---
Subjective Progress Note Date: 04/04/24 This is a pleasant 58 years old female with past medical history of multiple medical problems as below Presents because of chest pain radiating to the left arm. Patient evaluated by stone operator and cleared her as this is noncardiac pain. Also patient has negative D-dimer on admission at 0.44. However patient also has been complaining of from more weakness and tingling in the left side. First she told me send left arm, but then told me left arm and little bit on the right arm, and then she told me the whole left side including the left arm and the left leg. She said mainly tingling , other than yesterday have weakness on the left side also, she told me he has, when I ask her is it mild weakness or severe weakness she told me both. Also she is complaining of from nausea. No abdominal pain. No specific urinary symptoms. She smokes less than a pack per day and she was counseled to quit and she agrees. She denies alcohol or illicit drugs. She is afebrile Labs reviewed were unremarkable except for chronic leukocytosis at 13,000 EKG showing sinus tachycardia at [address]-T changes Chest x-ray is negative for acute process CT of the brain is negative for acute process BNP, proBNP is 30. Patient currently on IV Solu-Medrol 500 mg per neurologist 04/01 Patient has some improvement in her neurological symptoms of tingling and weakness She remains on IV Solu-Medrol neurology following closely MRI of the brain reviewed showing no stroke or mass effect but there is bi lateral nonspecific white matter changes could be related to patient history of multiple sclerosis but there is no active demyelination process going up IV fluid discontinued 04/02 Patient was admitted and evaluated for possible multiple sclerosis exacerbation. She reports weakness and numbness mainly in the left side. She was treated with 3 days of IV Solu-Medrol. Neurology service thi believe patient showing improvement and he switched to prednisone. Patient complains from pain all over her body, almost every part of her body hurts. Most likely elements of fibromyalgia besides deconditioning. Patient is morbidly obese with BMI of 39.0. She has some elements of mild bronchitis with recent upper respiratory tract infection, however her secretions improving. Incentive spirometry was ordered. Currently patient remains on prednisone. She has good oxygen saturation and mentation at baseline. She has mild leukocytosis improved but hemoglobin stable at 16. Possible discharge in 24 to 48 hours if she continues to improve 04/03 Patient neurological symptoms are improving Will switch to oral prednisone okayed by neurologist for discharge Patient was complaining from abdominal pain, CT of the abdomen was negative Patient fel it is too late to leave and she wants to wait till the morning Possible discharge in 24 hours 04/04/2024 Patient is seen and evaluated in follow-up continued on prednisone and will continue a prednisone taper on discharge per neurology. Patient to follow-up with her primary neurologist Dr. Ramirez to outpatient. Patient reports she continues to have weakness and has not been up out of the bed will consult PT/OT therapy for evaluation. Patient reports plan on going home on discharge. Patient is afebrile with no reports of chest pain or shortness of breath. Patient chronically wears oxygen and reports has it at home as needed. Patient to continue with nystatin swish and swallow as patient reporting oral irritation with concerns of candidiasis. Patient per nursing staff requiring [id number] IV morphine and will discontinue. Continue with oral pain medications and will also add Toradol. Encouraged increase activity as tolerated with plans on discharging to home in 24 hours Review of systems: Constitutional: No reports of fatigue, fever, or chills Cardiovascular: No reports of chest pain or palpitations Respiratory: No reports of shortness of breath or cough GI: No reports of nausea, vomiting, or diarrhea : No reports of dysuria or retention Neurovascular: reports of generalized weakness and reports feeling weak and recently fell and hurt her left shoulder All medications have been reviewed Physical exam: Gen: This is a 58-year-old female who is awake, alert and oriented x 3, well- developed, elderly appearing, obese HEENT: Head is atraumatic, normocephalic. Pupils equal, round. Sclerae is anicteric. NECK: Supple. No JVD. No lymphadenopathy. No thyromegaly. LUNGS: Diminished breath sounds bilaterally otherwise clear to auscultation. No wheezes or rhonchi. No intercostal retractions. HEART: Regular rate and rhythm. No murmur. ABDOMEN: Soft. Obese. Bowel sounds are present. No masses. No tenderness. EXTREMITIES: No pedal edema. No calf tenderness. Left shoulder tenderness on palpation, full range of motion and able to move extremities up and down freely NEUROLOGICAL: Patient is awake, alert and oriented x3. Cranial nerves 2 through 12 are grossly intact. Diffusely weak Assessment: Chest pain, most likely musculoskeletal, negative D-dimer and cardiology cleared for discharge Left side numbness with very mild weakness, mainly subjective most likely secondary to MS as a flareup Nausea, improved Continued ongoing nicotine dependence Obesity with BMI of 39 Chronic leukocytosis Obesity with BMI of 39 Generalized body ache could be elements of fibromyalgia GI prophylaxis DVT prophylaxis Full code Plan: Continue with pain management. Will add Toradol and discontinue morphine. Continue with prednisone at current dosing and will continue a prednisone taper on discharge. Outpatient follow-up with her primary neurologist Dr. Ramirez on discharge MRI of the brain is reviewed showing a possible demyelinating disease related to her patient history although this water matter changes could be nonspecific. Neurology evaluated and has cleared the patient for discharge Cardiology cleared the patient for discharge recommending outpatient follow-up Patient reporting feeling weakness and has not gotten out of the bed very much. Will have PT/OT therapy evaluate and plan for discharge planning in 24 hours Patient reports he has support at the home and also has supplemental oxygen as needed at the home as well. Overall prognosis is guarded and patient will be discharged in 24 hours. The impression and plan of care has been dictated by Pema Lassiter, Nurse Practitioner as directed. Dr. Marysol MD I have performed a history and examination and MDM of this patient, discussed the same with the dictator, and agree with the dictator's assessment and plan as written ,documented as a scribe. Based on total visit time, I have performed more than 50% of the visit. Objective - Vital Signs Vital signs: Vital Signs Temp 97.8 F 04/04/24 07:23 Pulse 66 04/04/24 07:23 Resp 16 04/04/24 07:23 BP 128/74 04/04/24 07:23 Pulse Ox 99 04/04/24 07:23 FiO2 Intake & Output 04/03/24 04/04/24 04/04/24 18:59 06:59 18:59 Intake Total 540 118 Output Total 200 300 Balance -200 240 118 Intake: Oral 540 118 Output: Urine 200 300 Other: Voiding Method Bedside Commode External Catheter - Labs CBC & Chem 7: 03/31/24 05:04 04/04/24 05:25 Labs: Abnormal Lab Results - Last 24 Hours (Table) 04/03/24 04/03/24 04/03/24 Range/Units 11:59 12:01 16:54 POC Glucose (mg/dL) 111 H 128 H (70-110) mg/dL Hemoglobin A1c 6.2 H (<=6.0) % 04/03/24 04/04/24 Range/Units 20:29 06:08 POC Glucose (mg/dL) 129 H 117 H (70-110) mg/dL Hemoglobin A1c (<=6.0) %
[2024-04-04] MEDS: NYSTATIN 100,000 UNIT/ML SUSP 500,000 UNIT/5 ML CUP PO SCH (16:15)
[2024-04-04 17:08] LABS: Glucose,Whole Blood 114 mg/dL (70-110)
[2024-04-04] MEDS: KETOROLAC 15 MG/ML 1 ML VIAL IVP PRN (19:39)
[2024-04-04 21:31] LABS: Glucose,Whole Blood 115 mg/dL (70-110)
[2024-04-05 06:13] LABS: Glucose,Whole Blood 93 mg/dL (70-110)
[2024-04-05 07:16] VITALS: BP 112/76; RESP 16; TEMP 97.7
[2024-04-05 11:44] LABS: Glucose,Whole Blood 146 mg/dL (70-110)
[2024-04-05 11:45] VITALS: PULSE 76
== END 2024-04-05 15:02 | disposition home health service (06) | DRG 59 ==
LOC: EC 18:25 → 6NMEDSUR 19:40 → OBSVTOIN 04-01 10:06
PROVIDERS: ADMIT Hospitalist; ATTEND Hospitalist
DX: G35 Multiple sclerosis (principal); H46.9 Unspecified optic neuritis; I42.9 Cardiomyopathy, unspecified; J96.11 Chronic respiratory failure with hypoxia; G25.81 Restless legs syndrome; H54.7 Unspecified visual loss; H91.90 Unspecified hearing loss, unspecified ear; I11.0 Hypertensive heart disease with heart failure; I50.9 Heart failure, unspecified; J44.89 Other specified chronic obstructive pulmonary disease; M79.7 Fibromyalgia; N39.46 Mixed incontinence; M81.0 Age-related osteoporosis without current pathological fracture; G47.33 Obstructive sleep apnea (adult) (pediatric); R42 Dizziness and giddiness; H93.19 Tinnitus, unspecified ear; D72.829 Elevated white blood cell count, unspecified; G50.0 Trigeminal neuralgia; Z99.81 Dependence on supplemental oxygen; E66.01 Morbid (severe) obesity due to excess calories; Z68.39 Body mass index [BMI] 39.0-39.9, adult; F32.A Depression, unspecified; F17.210 Nicotine dependence, cigarettes, uncomplicated; M62.838 Other muscle spasm; K21.9 Gastro-esophageal reflux disease without esophagitis; M19.90 Unspecified osteoarthritis, unspecified site; G31.84 Mild cognitive impairment of uncertain or unknown etiology; F40.240 Claustrophobia; Z79.82 Long term (current) use of aspirin; Z79.84 Long term (current) use of oral hypoglycemic drugs; Z79.899 Other long term (current) drug therapy; Z85.42 Personal history of malignant neoplasm of other parts of uterus; Z90.710 Acquired absence of both cervix and uterus; Z92.3 Personal history of irradiation; Z91.81 History of falling; Z87.01 Personal history of pneumonia (recurrent); Z60.2 Problems related to living alone; Z79.891 Long term (current) use of opiate analgesic
CPT/HCPCS: 36415; 70450; 70553; 71045; 74177; 80048; 80053; 83036; 83605; 83735; 83880; 84100; 84132; 84484; 85025; 85379; 85610; 85730; 93005; 94640; 94667; 94760; 96361; 96365; 96375; 99285